=== PATIENT | male | born 1960 | race African-American/Black ===

== ENCOUNTER 2021-01-02 00:52 | Inpatient (IN) | payer OTHER ==
[~2021-01-02] VITALS: Ht 165.1 cm; Wt 101.2 kg
[2021-01-02] MEDS ORDERED: Enoxaparin 100mg Inj SUBQ ONE (01:00)
[2021-01-02] MEDS ORDERED: dexAMETHasone 10mg/ml Inj IV ONE (01:00)
[2021-01-02] MEDS ORDERED: cefTRIAXone 1 GM in NS 55 ML IV ONE (01:00)
[2021-01-02] MEDS ORDERED: Azithromycin 500 MG in NS 275 ML IVPB ONE (01:00)
--- NOTE | 2021-01-02 01:01 | Emergency Room Report ---
History of Present Illness General Chief Complaint: Dyspnea/Respdistress Source: Patient, Medical Record, EMS Present Illness HPI Is a 60-year-old male with a history of diabetes, COPD, hypertension who reside in a shelter. He presents with chief plaint of shortness of breath. He tested positive for Covid yesterday. [facility] called 911 because of respiratory distress and hypoxia. He was saturating in the 80 percentile on room air. Nonrebreather he was placed on nasal cannula and brought here. Patient appeared to be weak. Also cough and congestion. Unknown fever or chills. No chest pain. History is limited because of patient condition. 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 COVID-19 Screening: Positive COVID-19 COVID-19 Testing Source: [facility] Patient History Past Medical History: see triage record, old chart reviewed, DM, HTN, AFib Past Surgical History: other - BKA, right Pertinent Family History: none Social History: Denies: smoking Immunizations: other Reviewed Nursing Documentation: PMH: Agreed; PSxH: Agreed Nursing Documentation-PMH Hx COPD: Yes Hx Diabetes: Yes History Of Psychiatric Problem: Yes - schizophrenia Review of Systems Constitutional: Reports: malaise, weakness Eye: Denies: eye pain, blurred vision ENT: Denies: ear pain, nose congestion, throat swelling Respiratory: Reports: cough, shortness of breath Cardiovascular: Denies: chest pain, palpitations Gastrointestinal: Denies: abdominal pain, diarrhea, nausea, vomiting Musculoskeletal: Denies: back pain, joint pain Skin: Denies: rash Neurological: Denies: headache, numbness Endocrine: Denies: increased thirst, increased urine Hematologic/Lymphatic: Denies: easy bruising All Other Systems: negative except mentioned in HPI Physical Exam Vital Signs Date Time Temp Pulse Resp B/P (MAP) Pulse Ox O2 Delivery O2 Flow Rate FiO2 01/02/21 00:52 100 Nasal Cannula 6.0 Vitals with hypoxia and tachycardia Sp02 EP Interpretation: reviewed, abnormal General Appearance: moderate distress, other - Ill-appearing Head: normocephalic, atraumatic Eyes: bilateral eye PERRL, bilateral eye EOMI ENT: hearing grossly normal, normal pharynx Neck: full range of motion, supple, no meningismus Respiratory: chest non-tender, respiratory distress, accessory muscle use, rhonchi Cardiovascular #1: regular rate, rhythm, no murmur Gastrointestinal: normal bowel sounds, non tender, no mass, no organomegaly, no bruit, non-distended Musculoskeletal: back normal, normal range of motion, other - Right BKA Psychiatric: mood/affect normal Procedures Critical Care Time Critical Care Time Critical care is mandated in this patient who presented with severe sepsis from Covid pneumonia. Patient require my urgent intervention to attenuate the risks of metabolic collapse which may lead to cardiovascular collapse and . Critical care time is 35 minutes excluding any reportable procedure. Critical care time included evaluation, multiple reevaluation, looking at old charts, interpreting laboratory and diagnostic data, discussing case with patient and family and consultants, and charting. Medical Decision Making Diagnostic Impression: Primary Impression: Sepsis Qualified Codes: A41.9 - Sepsis, unspecified organism; R65.20 - Severe sepsis without septic shock; J96.01 - Acute respiratory failure with hypoxia Additional Impressions: Respiratory failure with hypoxia Qualified Codes: J96.01 - Acute respiratory failure with hypoxia Pneumonia due to COVID-19 virus ER Course This patient presents with acute respiratory failure with hypoxia secondary to pneumonia from Covid. Prognosis poor. He has high fever here and he is hypoxic. On he is 96 to 97%. It appeared to be laboring so I put him on BiPAP. Prognosis is poor because of his risk factors. He is morbidly obese, has diabetes, high blood pressure, cardiac problem. Antibiotics, steroid, and Lovenox given. I contacted Dr. Bradley for admission. EKG Diagnostic Results Troponin ordered: Yes Rate: tachycardiac Rhythm: NSR ST Segments: no acute changes Rhythm Strip Diag. Results EP Interpretation: yes Rate: 120 Rhythm: NSR, no PVC's, no ectopy Chest X-Ray Diagnostic Results Chest X-Ray Diagnostic Results : Chest X-Ray Ordered: Yes # of Views/Limited/Complete: 1 View Indication: Shortness of Breath EP Interpretation: Yes Interpretation: no pneumothorax, other - Multilobar infiltrates Impression: Other - multilobar infiltrates Electronically Signed by: Zack Corrales MD Last Vital Signs Date Time Temp Pulse Resp B/P (MAP) Pulse Ox O2 Delivery O2 Flow Rate FiO2 2/3/ 00:52 100 Nasal Cannula 6.0 Status: improved Disposition: ADMITTED INPATIENT Condition: Critical Zack Corrales MD Jan 02, 2021 01:01
[2021-01-02] MEDS ORDERED: Acetaminophen 650 MG SUPP RECTAL ONE (01:15)
[2021-01-02] MEDS ORDERED: Acetaminophen 500mg (ES) tab ORAL ONE (01:15)
[2021-01-02 01:37] LABS: BASOPHILS % (AUTO) 1.2 % (0.0-2.0); EOSINOPHILS % (AUTO) 0.1 % (0.0-3.0); HEMATOCRIT 48.2 % (42.0-52.0); HEMOGLOBIN 14.9 G/DL (14.2-18.0); LYMPHOCYTES % (AUTO) 36.9 % (20.0-45.0); MEAN CORPUSCULAR VOLUME 90 FL (80-99); MONOCYTES % (AUTO) 6.8 % (1.0-10.0); NEUTROPHILS % (AUTO) 55.1 % (45.0-75.0); PLATELET COUNT 149 K/UL (150-450); RED BLOOD COUNT 5.34 M/UL (4.70-6.10); RED CELL DISTRIBUTION WIDTH 13.7 % (11.6-14.8); WHITE BLOOD COUNT 6.4 K/UL (4.8-10.8)
[2021-01-02 01:54] LABS: ANION GAP 8 mmol/L (5-15); BLOOD UREA NITROGEN 14 mg/dL (7-18); CALCIUM 8.6 MG/DL (8.5-10.1); CARBON DIOXIDE 29 MMOL/L (21-32); CHLORIDE 100 MMOL/L (98-107); CREATININE 1.1 MG/DL (0.55-1.30); SODIUM 137 MMOL/L (136-145)
[2021-01-02 01:56] LABS: POTASSIUM 5.3 MMOL/L (3.5-5.1)
[2021-01-02 02:01] LABS: INR 3.1 (0.9-1.1)
[2021-01-02 02:13] LABS: ALANINE AMINOTRANSFERASE 24 U/L (12-78); ALBUMIN 2.9 G/DL (3.4-5.0); ALBUMIN/GLOBULIN RATIO 0.6 (1.0-2.7); ALKALINE PHOSPHATASE 60 U/L (46-116); ASPARTATE AMINO TRANSFERASE 51 U/L (15-37); BILIRUBIN,TOTAL 0.4 MG/DL (0.2-1.0); CKMB 1.4 NG/ML (0.0-3.6); CREATINE KINASE 814 U/L (26-308); FERRITIN 657 NG/ML (8-388); LACTATE DEHYDROGENASE 479 U/L (81-234)
--- NOTE | 2021-01-02 02:27 | Diagnostic Imaging Report ---
EXAM: XR Chest, 1 View CLINICAL HISTORY: SOB TECHNIQUE: Frontal view of the chest. COMPARISON: No relevant prior studies available. FINDINGS/IMPRESSION: Extensive patchy bilateral airspace consolidations, consistent with multifocal infiltrates. Follow-up chest radiograph recommended. Low lung volumes. Suspect, small bilateral pleural effusions. No pneumothorax. Cardiomegaly.
[2021-01-02 02:32] VITALS: BP 105/74
[2021-01-02] MEDS ORDERED: Acetaminophen 650 MG SUPP RECTAL PRN (02:45)
[2021-01-02] MEDS ORDERED: NICODERM CQ1 EAC1 TD (04:02)
[2021-01-02] MEDS ORDERED: TRAMADOL HCL50 MG ORAL (04:02)
[2021-01-02] MEDS ORDERED: WARFARIN SODIUM5 MG ORAL (04:02)
[2021-01-02] MEDS ORDERED: BENZTROPINE MESY1 MG ORAL (04:02)
[2021-01-02] MEDS ORDERED: VIMPAT200 MG PO (04:02)
[2021-01-02] MEDS ORDERED: RISPERIDONE0.5 MG PO (04:02)
[2021-01-02] MEDS ORDERED: MAGNESIUM OXID400 M1 ORAL (04:02)
[2021-01-02] MEDS ORDERED: DOCUSATE CALCI240 MG PO (04:02)
[2021-01-02] MEDS ORDERED: DEPAKOTE ER500 MG ORAL (04:02)
[2021-01-02] MEDS ORDERED: TEMAZEPAM7.5 MG ORAL (04:02)
[2021-01-02] MEDS ORDERED: SEROQUEL200 MG ORAL (04:02)
--- NOTE | 2021-01-02 05:20 | Emergency Room Report ---
Sepsis Event Note Evaluation Current Stage of Sepsis: Sepsis Possible Source: Pulmonary Focused Exam Allergies: Coded Allergies: No Known Allergies (Unverified , 01/02/21) Date Exam Occurred: Jan 02, 2021 Time Exam Occurred: 05:20 Laboratory Studies Laboratory Tests Test 01/02/21 01:08 01/02/21 02:31 White Blood Count 6.4 K/UL (4.8-10.8) Red Blood Count 5.34 M/UL (4.70-6.10) Hemoglobin 14.9 G/DL (14.2-18.0) Hematocrit 48.2 % (42.0-52.0) Mean Corpuscular Volume 90 FL (80-99) Mean Corpuscular Hemoglobin 27.9 PG (27.0-31.0) Mean Corpuscular Hemoglobin Concent 30.9 G/DL (32.0-36.0) L Red Cell Distribution Width 13.7 % (11.6-14.8) Platelet Count 149 K/UL (150-450) L Mean Platelet Volume 11.3 FL (6.5-10.1) H Neutrophils (%) (Auto) 55.1 % (45.0-75.0) Lymphocytes (%) (Auto) 36.9 % (20.0-45.0) Monocytes (%) (Auto) 6.8 % (1.0-10.0) Eosinophils (%) (Auto) 0.1 % (0.0-3.0) Basophils (%) (Auto) 1.2 % (0.0-2.0) Prothrombin Time 30.9 SEC (9.30-11.50) H Prothromb Time International Ratio 3.1 (0.9-1.1) H Activated Partial Thromboplast Time 34 SEC (23-33) H D-Dimer 0.22 mg/L FEU (0.00-0.49) Sodium Level 137 MMOL/L (136-145) Potassium Level 5.3 MMOL/L (3.5-5.1) H Chloride Level 100 MMOL/L (98-107) Carbon Dioxide Level 29 MMOL/L (21-32) Anion Gap 8 mmol/L (5-15) Blood Urea Nitrogen 14 mg/dL (7-18) Creatinine 1.1 MG/DL (0.55-1.30) Estimat Glomerular Filtration Rate > 60 mL/min (>60) Glucose Level 211 MG/DL (74-106) H Lactic Acid Level 0.70 mmol/L (0.4-2.0) Calcium Level 8.6 MG/DL (8.5-10.1) Ferritin 657 NG/ML (8-388) H Total Bilirubin 0.4 MG/DL (0.2-1.0) Aspartate Amino Transf (AST/SGOT) 51 U/L (15-37) H Alanine Aminotransferase (ALT/SGPT) 24 U/L (12-78) Alkaline Phosphatase 60 U/L (46-116) Lactate Dehydrogenase 479 U/L (81-234) H Total Creatine Kinase 814 U/L (26-308) H Creatine Kinase MB 1.4 NG/ML (0.0-3.6) Creatine Kinase MB Relative Index 0.1 Troponin I 0.005 ng/mL (0.000-0.056) C-Reactive Protein, Quantitative 21.3 mg/dL (0.00-0.90) H Pro-B-Type Natriuretic Peptide 37 pg/mL (0-125) Total Protein 7.7 G/DL (6.4-8.2) Albumin 2.9 G/DL (3.4-5.0) L Globulin 4.8 g/dL Albumin/Globulin Ratio 0.6 (1.0-2.7) L Lipase 193 U/L (73-393) Arterial Blood pH 7.310 (7.350-7.450) Arterial Blood Partial Pressure CO2 52.0 mmHg (35.0-45.0) H Arterial Blood Partial Pressure O2 42.8 mmHg (75.0-100.0) Arterial Blood HCO3 25.6 mmol/L (22.0-26.0) Arterial Blood Oxygen Saturation 75.7 % (95-100) *L Arterial Blood Base Excess -1.4 (-2-2) Miguelito Test Positive Vital Signs Last 24 Hour Vital Signs Date Time Temp Pulse Resp B/P (MAP) Pulse Ox O2 Delivery O2 Flow Rate FiO2 01/02/21 05:02 98.9 01/02/21 03:39 116 18 92 100 01/02/21 02:32 128 37 Nasal Cannula 6.0 01/02/21 02:32 103.3 37 105/74 100 Nasal Cannula 6.0 01/02/21 01:46 98.9 01/02/21 00:52 103.3 128 37 105/74 (84) 100 Nasal Cannula 6.0 Respiratory Exam: Crackles Cardiovascular Exam: RRR Capillary Refill: Less Than 2 Seconds Peripheral Pulse: Strong Pulse Location: Radial Skin Exam: Normal Turgor Zack Corrales MD Jan 02, 2021 05:20
[2021-01-02 08:00] VITALS: BP 94/56
[2021-01-02] MEDS: D5 1/2NS 1,000 ML IV SCH (08:00)
[2021-01-02] MEDS ORDERED: traMADol 50mg tab ORAL PRN (08:00)
[2021-01-02] MEDS ORDERED: Zolpidem 5mg tab ORAL PRN (08:00)
[2021-01-02] MEDS ORDERED: HYDROcodone/Acetamin 5/325 tab ORAL PRN (08:15)
--- NOTE | 2021-01-02 08:51 | Consultation ---
History of Present Illness General Date patient seen: Jan 02, 2021 Time patient seen: 12:11 Chief Complaint: Dyspnea/Respdistress Referring physician: PCP Reason for Consultation: COVID+ Present Illness HPI 60yo M from SNF who p/w SOB, tested positive for COVID on day river boat [employer], for which ID is consulted. Pt has been febrile to 103.3 in house, HDS, now on BiPAP. WBC wnl at 6.4 CXR w/ BL pna PMH: DM2 COPD HTN SNF resident Allergies: Coded Allergies: No Known Allergies (Unverified , 01/02/21) Medication History Scheduled Benztropine Mesylate* (Benztropine Mesylate*), 1 MG ORAL BID, (Reported) Divalproex Sodium* (Depakote Er*), 500 MG ORAL EVERY 12 HOURS, (Reported) Docusate Calcium (Docusate Calcium), 240 MG PO TID, (Reported) Magnesium Oxide (Magnesium Oxide), 400 MG ORAL BID, (Reported) Nicotine 14MG Patch* (Nicoderm Cq 14MG*), 1 EACH TD DAILY, (Reported) Quetiapine Fumarate* (Seroquel*), 200 MG ORAL DAILY, (Reported) Risperidone (Risperidone), 0.5 MG PO BID, (Reported) Temazepam (Temazepam*), 7.5 MG ORAL BEDTIME, (Reported) Warfarin Sod* (Warfarin Sod*), 5.5 MG ORAL DAILY, (Reported) Scheduled PRN Tramadol Hcl* (Ultram*), 50 MG ORAL Q12HR PRN for For Pain, (Reported) Miscellaneous Medications Lacosamide (Vimpat), 200 MG PO, (Reported) Patient History Limited by: medical condition Healthcare decision maker Resuscitation status Advanced Directive on File Review of Systems ROS Narrative Unable to assess 2/2 pt condition Physical Exam Physical Exam Narrative Gen: NAD HEENT: NCAT Pulm: BL chest rise Abd: Non-distended Ext: No c/c/e Skin: No visible rashes Neuro: Awake Last 24 Hour Vital Signs Date Time Temp Pulse Resp B/P (MAP) Pulse Ox O2 Delivery O2 Flow Rate FiO2 01/02/21 05:17 Bi-pap 01/02/21 05:02 98.9 01/02/21 03:39 116 18 92 100 01/02/21 02:32 128 37 Nasal Cannula 6.0 01/02/21 02:32 103.3 37 105/74 100 Nasal Cannula 6.0 01/02/21 01:46 98.9 01/02/21 00:52 103.3 128 37 105/74 (84) 100 Nasal Cannula 6.0 Intake and Output 01/01/21 01/02/21 19:00 07:00 Intake Total 2250 ml Balance 2250 ml Intake Oral 0 ml IV Total 2250 ml Laboratory Tests Test 01/02/21 01:08 01/02/21 02:31 01/02/21 07:32 White Blood Count 6.4 K/UL (4.8-10.8) Red Blood Count 5.34 M/UL (4.70-6.10) Hemoglobin 14.9 G/DL (14.2-18.0) Hematocrit 48.2 % (42.0-52.0) Mean Corpuscular Volume 90 FL (80-99) Mean Corpuscular Hemoglobin 27.9 PG (27.0-31.0) Mean Corpuscular Hemoglobin Concent 30.9 G/DL (32.0-36.0) L Red Cell Distribution Width 13.7 % (11.6-14.8) Platelet Count 149 K/UL (150-450) L Mean Platelet Volume 11.3 FL (6.5-10.1) H Neutrophils (%) (Auto) 55.1 % (45.0-75.0) Lymphocytes (%) (Auto) 36.9 % (20.0-45.0) Monocytes (%) (Auto) 6.8 % (1.0-10.0) Eosinophils (%) (Auto) 0.1 % (0.0-3.0) Basophils (%) (Auto) 1.2 % (0.0-2.0) Prothrombin Time 30.9 SEC (9.30-11.50) H Prothromb Time International Ratio 3.1 (0.9-1.1) H Activated Partial Thromboplast Time 34 SEC (23-33) H D-Dimer 0.22 mg/L FEU (0.00-0.49) Sodium Level 137 MMOL/L (136-145) Potassium Level 5.3 MMOL/L (3.5-5.1) H Chloride Level 100 MMOL/L (98-107) Carbon Dioxide Level 29 MMOL/L (21-32) Anion Gap 8 mmol/L (5-15) Blood Urea Nitrogen 14 mg/dL (7-18) Creatinine 1.1 MG/DL (0.55-1.30) Estimat Glomerular Filtration Rate > 60 mL/min (>60) Glucose Level 211 MG/DL (74-106) H Lactic Acid Level 0.70 mmol/L (0.4-2.0) Calcium Level 8.6 MG/DL (8.5-10.1) Ferritin 657 NG/ML (8-388) H Total Bilirubin 0.4 MG/DL (0.2-1.0) Aspartate Amino Transf (AST/SGOT) 51 U/L (15-37) H Alanine Aminotransferase (ALT/SGPT) 24 U/L (12-78) Alkaline Phosphatase 60 U/L (46-116) Lactate Dehydrogenase 479 U/L (81-234) H Total Creatine Kinase 814 U/L (26-308) H Creatine Kinase MB 1.4 NG/ML (0.0-3.6) Creatine Kinase MB Relative Index 0.1 Troponin I 0.005 ng/mL (0.000-0.056) C-Reactive Protein, Quantitative 21.3 mg/dL (0.00-0.90) H Pro-B-Type Natriuretic Peptide 37 pg/mL (0-125) Total Protein 7.7 G/DL (6.4-8.2) Albumin 2.9 G/DL (3.4-5.0) L Globulin 4.8 g/dL Albumin/Globulin Ratio 0.6 (1.0-2.7) L Lipase 193 U/L (73-393) Arterial Blood pH 7.310 (7.350-7.450) 7.310 (7.350-7.450) Arterial Blood Partial Pressure CO2 52.0 mmHg (35.0-45.0) H 46.9 mmHg (35.0-45.0) H Arterial Blood Partial Pressure O2 42.8 mmHg (75.0-100.0) 118.1 mmHg (75.0-100.0) H Arterial Blood HCO3 25.6 mmol/L (22.0-26.0) 23.1 mmol/L (22.0-26.0) Arterial Blood Oxygen Saturation 75.7 % (95-100) *L 97.8 % (95-100) Arterial Blood Base Excess -1.4 (-2-2) -3.4 (-2-2) L Miguelito Test Positive Positive Height (Feet): 5 Height (Inches): 5.00 Weight (Pounds): 233 Medications Current Medications Medications (Trade) Dose Ordered Sig/Johnny Route PRN Reason Start Time Stop Time Status Last Admin Dose Admin Acetaminophen (Tylenol) 650 mg Q6H PRN ORAL Mild Pain (Pain Scale 1-3) 01/02/21 08:15 02/01/21 08:14 Acetaminophen (Tylenol) 650 mg Q6H PRN ORAL Temp >100.5 01/02/21 08:15 02/01/21 08:14 Acetaminophen/ Hydrocodone Bitart ([place] 5/325) 1 tab Q6H PRN ORAL Severe Pain (Pain Scale 7-10) 01/02/21 08:15 01/09/21 08:14 Azithromycin 500 mg/Dextrose 275 ml @ 275 mls/hr Q24HRS IV 01/03/21 01:00 01/09/21 01:59 Benztropine Mesylate (Cogentin) 1 mg BID ORAL 01/02/21 09:00 02/01/21 08:59 Ceftriaxone Sodium 1 gm/ Dextrose 55 ml @ 110 mls/hr Q24H IVPB 01/03/21 01:00 01/10/21 00:59 Dextrose/Sodium Chloride 1,000 ml @ 50 mls/hr Q20H IV 01/02/21 08:00 02/01/21 07:59 Divalproex Sodium (Depakote) 500 mg EVERY 12 HOURS ORAL 01/02/21 09:00 02/01/21 08:59 Methylprednisolone Sodium Succinate (Solu-MEDROL) 40 mg EVERY 12 HOURS IVP 01/02/21 09:00 04/02/21 08:59 Ondansetron HCl (Zofran) 4 mg Q4H PRN IVP Nausea & Vomiting 01/02/21 08:15 02/01/21 08:14 Quetiapine Fumarate (SEROqueL) 200 mg DAILY ORAL 01/02/21 09:00 02/16/21 08:59 Risperidone (RisperDAL) 0.5 mg BID ORAL 01/02/21 09:00 02/16/21 08:59 Sodium Polystyrene Sulfonate (Kayexalate) 30 gm ONCE ORAL 01/02/21 09:00 01/02/21 11:00 Temazepam (RestoriL) 7.5 mg BEDTIME ORAL 01/02/21 21:00 01/09/21 20:59 Tramadol HCl (Ultram) 50 mg Q12H PRN ORAL Moderate Pain (Pain Scale 4-6) 01/02/21 08:00 01/09/21 07:59 Warfarin Sodium (Coumadin per pharmacy) 1 ea DAILY PRN MISC Per rx protocol 01/02/21 08:30 02/01/21 08:29 UNV Warfarin Sodium (Coumadin) 5.5 mg DAILY ORAL 01/02/21 09:00 01/07/21 08:59 UNV Zolpidem Tartrate (Ambien) 5 mg HSPRN PRN ORAL Insomnia 01/02/21 08:00 01/09/21 07:59 Assessment/Plan Assessment/Plan: 60yo M with: COVID pna, severe Acute hypoxia 2/2 COVID pna Febrile to 103 Normal WBC Elevated AST 51 2/2 Tested positive for COVID at SNF 01/02 BCx p CXR: Multifocal pna MRSA nares p Cr 1.1 PMH: DM2 COPD HTN SNF resident Plan: Cont CTX/azithro #1 Cont steroids #1, on methylpred 40 IV q12 Start RDV #1/5, approved This institution does not have access to convalescent plasma and only recomm ended to give in setting of clinical trial HIV screen Monitor CBC/CMP Monitor temp curve, hemodynamics Monitor resp status D/w RN & Pulm Dr. Barry Thank you for this consult. [facility] will continue to follow. Renetta Gomez M.D. Jan 02, 2021 08:51
[2021-01-02] MEDS ORDERED: Warfarin Sodium 5mg ORAL SCH (09:00)
[2021-01-02] MEDS: Benztropine 1mg tab ORAL SCH ×2 (09:00→18:00)
[2021-01-02] MEDS: QUEtiapine 200mg tab ORAL SCH (09:00)
[2021-01-02] MEDS: Depakote 500mg tab ORAL SCH ×2 (09:00→21:31)
[2021-01-02] MEDS: Solu-MEDROL 40mg Inj IVP SCH ×2 (09:00→22:03)
[2021-01-02] MEDS ORDERED: Sodium Polystyrene Sulfonate 15gm Powder ORAL SCH (09:00)
[2021-01-02 10:40] LABS: INR 3.4 (0.9-1.1)
--- NOTE | 2021-01-02 11:52 | Consultation ---
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 Tm 103, initially on 6L NC now on BiPAP 201/0 --> 7.31/46/18//97, DD 0.22, WCt normal, chemistry unremarkable, LDH 478 CRP 21, CK 814, abl 2.9. He has been seen by ID and started on CTx/Azithro + REM + SM 40 IV BID. + cough + SOB no FC no CP, CXR with b infiltrates. Allergies: Coded Allergies: No Known Allergies (Unverified , 01/02/21) Medication History Scheduled Benztropine Mesylate* (Benztropine Mesylate*), 1 MG ORAL BID, (Reported) Divalproex Sodium* (Depakote Er*), 500 MG ORAL EVERY 12 HOURS, (Reported) Docusate Calcium (Docusate Calcium), 240 MG PO TID, (Reported) Magnesium Oxide (Magnesium Oxide), 400 MG ORAL BID, (Reported) Nicotine 14MG Patch* (Nicoderm Cq 14MG*), 1 EACH TD DAILY, (Reported) Quetiapine Fumarate* (Seroquel*), 200 MG ORAL DAILY, (Reported) Risperidone (Risperidone), 0.5 MG PO BID, (Reported) Temazepam (Temazepam*), 7.5 MG ORAL BEDTIME, (Reported) Warfarin Sod* (Warfarin Sod*), 5.5 MG ORAL DAILY, (Reported) Scheduled PRN Tramadol Hcl* (Ultram*), 50 MG ORAL Q12HR PRN for For Pain, (Reported) Miscellaneous Medications Lacosamide (Vimpat), 200 MG PO, (Reported) Patient History Limited by: medical condition History Provided By: Patient, Medical Record Healthcare decision maker Resuscitation status Advanced Directive on File Patient History Narrative PMH: COPD, CPS/bipolar DO, prior DVT/PE on AC, NHR, DM2, HTN and hydrocephalus SHx: NHR + T no ED use FHx: N/C Review of Systems All Other Systems: negative except mentioned in HPI Physical Exam General Appearance: moderate distress, other - on BiPAP Lines, tubes and drains: peripheral HEENT: normocephalic, atraumatic, mucous membranes moist Neck: non-tender, supple Respiratory/Chest: rhonchi - bilaterally Cardiovascular/Chest: normal peripheral pulses, normal rate, regular rhythm Abdomen: normal bowel sounds, non tender, soft, no organomegaly, no mass Neurologic: alert, responsive Musculoskeletal: other - No CCE Last 24 Hour Vital Signs Date Time Temp Pulse Resp B/P (MAP) Pulse Ox O2 Delivery O2 Flow Rate FiO2 01/02/21 08:00 100.0 01/02/21 08:00 98.2 93 27 94/56 (69) 95 01/02/21 08:00 Bi-pap 01/02/21 08:00 96 01/02/21 07:25 95 30 98 Bi-Pap 100 01/02/21 07:25 98 30 95 100 01/02/21 05:17 Bi-pap 01/02/21 05:02 98.9 01/02/21 03:39 116 18 92 100 01/02/21 02:32 128 37 Nasal Cannula 6.0 01/02/21 02:32 103.3 37 105/74 100 Nasal Cannula 6.0 01/02/21 01:46 98.9 01/02/21 00:52 103.3 128 37 105/74 (84) 100 Nasal Cannula 6.0 Intake and Output 01/01/21 01/02/21 19:00 07:00 Intake Total 2250 ml Balance 2250 ml Intake Oral 0 ml IV Total 2250 ml Laboratory Tests Test 01/02/21 01:08 01/02/21 02:31 01/02/21 07:32 01/02/21 10:00 White Blood Count 6.4 K/UL (4.8-10.8) Red Blood Count 5.34 M/UL (4.70-6.10) Hemoglobin 14.9 G/DL (14.2-18.0) Hematocrit 48.2 % (42.0-52.0) Mean Corpuscular Volume 90 FL (80-99) Mean Corpuscular Hemoglobin 27.9 PG (27.0-31.0) Mean Corpuscular Hemoglobin Concent 30.9 G/DL (32.0-36.0) L Red Cell Distribution Width 13.7 % (11.6-14.8) Platelet Count 149 K/UL (150-450) L Mean Platelet Volume 11.3 FL (6.5-10.1) H Neutrophils (%) (Auto) 55.1 % (45.0-75.0) Lymphocytes (%) (Auto) 36.9 % (20.0-45.0) Monocytes (%) (Auto) 6.8 % (1.0-10.0) Eosinophils (%) (Auto) 0.1 % (0.0-3.0) Basophils (%) (Auto) 1.2 % (0.0-2.0) Prothrombin Time 30.9 SEC (9.30-11.50) H 33.7 SEC (9.30-11.50) H Prothromb Time International Ratio 3.1 (0.9-1.1) H 3.4 (0.9-1.1) H Activated Partial Thromboplast Time 34 SEC (23-33) H D-Dimer 0.22 mg/L FEU (0.00-0.49) Sodium Level 137 MMOL/L (136-145) Potassium Level 5.3 MMOL/L (3.5-5.1) H Chloride Level 100 MMOL/L (98-107) Carbon Dioxide Level 29 MMOL/L (21-32) Anion Gap 8 mmol/L (5-15) Blood Urea Nitrogen 14 mg/dL (7-18) Creatinine 1.1 MG/DL (0.55-1.30) Estimat Glomerular Filtration Rate > 60 mL/min (>60) Glucose Level 211 MG/DL (74-106) H Lactic Acid Level 0.70 mmol/L (0.4-2.0) Calcium Level 8.6 MG/DL (8.5-10.1) Ferritin 657 NG/ML (8-388) H Total Bilirubin 0.4 MG/DL (0.2-1.0) Aspartate Amino Transf (AST/SGOT) 51 U/L (15-37) H Alanine Aminotransferase (ALT/SGPT) 24 U/L (12-78) Alkaline Phosphatase 60 U/L (46-116) Lactate Dehydrogenase 479 U/L (81-234) H Total Creatine Kinase 814 U/L (26-308) H Creatine Kinase MB 1.4 NG/ML (0.0-3.6) Creatine Kinase MB Relative Index 0.1 Troponin I 0.005 ng/mL (0.000-0.056) C-Reactive Protein, Quantitative 21.3 mg/dL (0.00-0.90) H Pro-B-Type Natriuretic Peptide 37 pg/mL (0-125) Total Protein 7.7 G/DL (6.4-8.2) Albumin 2.9 G/DL (3.4-5.0) L Globulin 4.8 g/dL Albumin/Globulin Ratio 0.6 (1.0-2.7) L Lipase 193 U/L (73-393) Arterial Blood pH 7.310 (7.350-7.450) 7.310 (7.350-7.450) Arterial Blood Partial Pressure CO2 52.0 mmHg (35.0-45.0) H 46.9 mmHg (35.0-45.0) H Arterial Blood Partial Pressure O2 42.8 mmHg (75.0-100.0) 118.1 mmHg (75.0-100.0) H Arterial Blood HCO3 25.6 mmol/L (22.0-26.0) 23.1 mmol/L (22.0-26.0) Arterial Blood Oxygen Saturation 75.7 % (95-100) *L 97.8 % (95-100) Arterial Blood Base Excess -1.4 (-2-2) -3.4 (-2-2) L Miguelito Test Positive Positive HIV (1&2) Antibody Rapid Pending Height (Feet): 5 Height (Inches): 5.00 Weight (Pounds): 233 Medications Current Medications Medications (Trade) Dose Ordered Sig/Johnny Route PRN Reason Start Time Stop Time Status Last Admin Dose Admin Acetaminophen (Tylenol) 650 mg Q6H PRN ORAL Mild Pain (Pain Scale 1-3) 01/02/21 08:15 02/01/21 08:14 Acetaminophen (Tylenol) 650 mg Q6H PRN ORAL Temp >100.5 01/02/21 08:15 02/01/21 08:14 Acetaminophen/ Hydrocodone Bitart (Tyro 5/325) 1 tab Q6H PRN ORAL Severe Pain (Pain Scale 7-10) 01/02/21 08:15 01/09/21 08:14 Azithromycin 500 mg/Dextrose 275 ml @ 275 mls/hr Q24HRS IV 01/03/21 01:00 01/09/21 01:59 Benztropine Mesylate (Cogentin) 1 mg BID ORAL 01/02/21 09:00 02/01/21 08:59 Ceftriaxone Sodium 1 gm/ Dextrose 55 ml @ 110 mls/hr Q24H IVPB 01/03/21 01:00 01/10/21 00:59 Dextrose/Sodium Chloride 1,000 ml @ 50 mls/hr Q20H IV 01/02/21 08:00 02/01/21 07:59 Divalproex Sodium (Depakote) 500 mg EVERY 12 HOURS ORAL 01/02/21 09:00 02/01/21 08:59 Methylprednisolone Sodium Succinate (Solu-MEDROL) 40 mg EVERY 12 HOURS IVP 01/02/21 09:00 04/02/21 08:59 Ondansetron HCl (Zofran) 4 mg Q4H PRN IVP Nausea & Vomiting 01/02/21 08:15 02/01/21 08:14 Quetiapine Fumarate (SEROqueL) 200 mg DAILY ORAL 01/02/21 09:00 02/16/21 08:59 Remdesivir 100 mg/ Sodium Chloride 250 ml @ 250 mls/hr Q24H IV 01/03/21 12:00 01/06/21 12:59 Remdesivir 200 mg/ Sodium Chloride 250 ml @ 125 mls/hr ONCE IV 01/02/21 12:00 01/02/21 13:59 Risperidone (RisperDAL) 0.5 mg BID ORAL 01/02/21 09:00 02/16/21 08:59 Temazepam (RestoriL) 7.5 mg BEDTIME ORAL 01/02/21 21:00 01/09/21 20:59 Tramadol HCl (Ultram) 50 mg Q12H PRN ORAL Moderate Pain (Pain Scale 4-6) 01/02/21 08:00 01/09/21 07:59 Warfarin Sodium (Coumadin per pharmacy) 1 ea DAILY PRN MISC Per rx protocol 01/02/21 08:30 02/01/21 08:29 Zolpidem Tartrate (Ambien) 5 mg HSPRN PRN ORAL Insomnia 01/02/21 08:00 01/09/21 07:59 Assessment/Plan Problem List: (1) Pneumonia due to COVID-19 virus ICD Codes: U07.1 - COVID-19; J12.82 - Pneumonia due to coronavirus disease 2018 SNOMED: 867814677408441811 (2) Acute hypercapnic respiratory failure ICD Codes: J96.02 - Acute respiratory failure with hypercapnia SNOMED: 347608959 (3) Respiratory failure with hypoxia ICD Codes: J96.91 - Respiratory failure, unspecified with hypoxia SNOMED: 46937428667969978 Qualifiers: Qualified Codes: J96.01 - Acute respiratory failure with hypoxia (4) COPD (chronic obstructive pulmonary disease) ICD Codes: J44.9 - Chronic obstructive pulmonary disease, unspecified SNOMED: 78080531 (5) History of deep venous thrombosis or pulmonary embolus SNOMED: 479262071 (6) Obesity ICD Codes: E66.9 - Obesity, unspecified SNOMED: 913666206, 058991513 (7) Essential hypertension ICD Codes: I10 - Essential (primary) hypertension SNOMED: 03386982 (8) Diabetes mellitus type 2 in obese ICD Codes: E11.69 - Type 2 diabetes mellitus with other specified complication; E66.9 - Obesity, unspecified SNOMED: 91517444 (9) History of hydrocephalus ICD Codes: Z86.69 - Personal history of other diseases of the nervous system and sense organs SNOMED: 936515804 (10) Schizophrenia ICD Codes: F20.9 - Schizophrenia, unspecified SNOMED: 26801326 (11) Bipolar 1 disorder ICD Codes: F31.9 - Bipolar disorder, unspecified SNOMED: 702959060 (12) Anticoagulant long-term use ICD Codes: Z79.01 - long-term (current) use of anticoagulants SNOMED: 729005265 Assessment/Plan: Optimize pulmonary hygiene/mobilize as tolerated BiPAP PRN and qHS Titrate down FiO2 to keep SaO2 > 92% HFA's Prone if able F/U inflammatory markers and covid labs ID recs REM D1 SM 40 IV BID D1 Abx (Ctx/Azithro) per ID F/U Cx's Monitor volumes and renal function DVT Px: Coumadin NPO, 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
[2021-01-02 12:00] VITALS: BP 105/40
[2021-01-02] MEDS ORDERED: Loading Dose:Remdesivir 200mg/NS 210ml IV SCH ×2 (12:00)
--- NOTE | 2021-01-02 12:31 | History & Physical ---
History and Physical History & Physicial Dictated for Int Med-DR Bradley no. [id number]. Vickey Brown MD Jan 02, 2021 12:31
[2021-01-02] MEDS ORDERED: Ipratropium Bromide Inhaler INH SCH (14:00)
[2021-01-02] MEDS ORDERED: Albuterol 90mcg Inhaler 8gm INH SCH (14:00)
[2021-01-02 16:00] VITALS: BP 105/73
[2021-01-02] MEDS: Ipratropium Bromide Inhaler INH SCH (19:00)
[2021-01-02] MEDS: Albuterol 90mcg Inhaler 8gm INH SCH (19:00)
[2021-01-02 20:00] VITALS: BP 97/88
[2021-01-03] VITALS (7 sets, daily range): BP systolic 93–106; BP diastolic 54–60
[2021-01-03] MEDS: Albuterol 90mcg Inhaler 8gm INH SCH ×4 (01:00→18:51)
[2021-01-03] MEDS: cefTRIAXone 1 GM in D5W 55 ML IVPB SCH ×2 (01:13→23:43)
[2021-01-03] MEDS: Ipratropium Bromide Inhaler INH SCH ×4 (01:42→18:51)
[2021-01-03] MEDS: Azithromycin 500 MG in D5W 275 ML IV SCH (02:36)
[2021-01-03] MEDS: D5 1/2NS 1,000 ML IV SCH ×2 (04:00→23:43)
[2021-01-03 05:13] LABS: BASOPHILS % (AUTO) 0.5 % (0.0-2.0); HEMATOCRIT 45.8 % (42.0-52.0); HEMOGLOBIN 14.2 G/DL (14.2-18.0); LYMPHOCYTES % (AUTO) 16.6 % (20.0-45.0); MEAN CORPUSCULAR VOLUME 92 FL (80-99); MONOCYTES % (AUTO) 5.5 % (1.0-10.0); NEUTROPHILS % (AUTO) 77.4 % (45.0-75.0); PLATELET COUNT 176 K/UL (150-450); RED BLOOD COUNT 4.98 M/UL (4.70-6.10); RED CELL DISTRIBUTION WIDTH 14.2 % (11.6-14.8)
[2021-01-03 05:23] LABS: INR 4.5 (0.9-1.1)
[2021-01-03 05:38] LABS: ALANINE AMINOTRANSFERASE 25 U/L (12-78); ALBUMIN 2.5 G/DL (3.4-5.0); ALBUMIN/GLOBULIN RATIO 0.5 (1.0-2.7); ALKALINE PHOSPHATASE 56 U/L (46-116); ANION GAP 10 mmol/L (5-15); ASPARTATE AMINO TRANSFERASE 33 U/L (15-37); BILIRUBIN,TOTAL 0.3 MG/DL (0.2-1.0); BLOOD UREA NITROGEN 15 mg/dL (7-18); CARBON DIOXIDE 26 MMOL/L (21-32); CHLORIDE 103 MMOL/L (98-107); CREATININE 1.1 MG/DL (0.55-1.30); PHOSPHORUS 3.3 MG/DL (2.5-4.9); SODIUM 139 MMOL/L (136-145)
--- NOTE | 2021-01-03 08:50 | Infectious Diseases Prog Note ---
Assessment/Plan 60yo M with: COVID pna, severe Acute hypoxia 2/2 COVID pna Febrile to 103 Normal WBC Elevated AST 51 2/2 Tested positive for COVID at SNF 2/ BCx p CXR: Multifocal pna MRSA nares p Cr 1.1 PMH: DM2 COPD HTN SNF resident Plan: Cont CTX/azithro #2/5 Cont steroids #2/10, on methylpred 40 IV q12 Cont RDV #2/ This institution does not have access to convalescent plasma and only recommended to give in setting of clinical trial F/u HIV screen Monitor CBC/CMP Monitor temp curve, hemodynamics Monitor resp status D/w RN Thank you for this consult. [facility] will continue to follow. Subjective Allergies: Coded Allergies: No Known Allergies (Unverified , 01/02/21) AF NAD on BiPAP WBC wnl at 8.0 Objective Last 24 Hour Vital Signs Date Time Temp Pulse Resp B/P (MAP) Pulse Ox O2 Delivery O2 Flow Rate FiO2 01/03/21 08:00 100 01/03/21 08:00 97.9 92 22 94/54 (67) 97 01/03/21 08:00 95 01/03/21 08:00 Bi-pap 01/03/21 04:00 Bi-pap 01/03/21 04:00 97.9 92 22 94/54 (67) 97 01/03/21 04:00 100 01/03/21 04:00 95 01/03/21 03:27 93 21 95 Bi-Pap 100 95 20 96 100 01/03/21 01:42 93 19 96 Bi-Pap 100 95 20 96 100 01/03/21 00:00 Bi-pap 01/03/21 00:00 98.1 97 21 93/55 (68) 97 01/03/21 00:00 100 01/02/21 23:15 96 01/02/21 20:00 97.7 96 23 97/88 (91) 86 01/02/21 20:00 100 01/02/21 20:00 Bi-pap 01/02/21 19:44 100 01/02/21 19:09 99 26 91 100 01/02/21 18:00 Bi-pap 01/02/21 17:50 100 01/02/21 16:00 98.2 92 21 105/73 (84) 96 01/02/21 16:00 100.0 01/02/21 16:00 Bi-pap 01/02/21 16:00 96 01/02/21 15:05 95 26 94 90 01/02/21 12:00 100.0 01/02/21 12:00 96 01/02/21 12:00 Bi-pap 01/02/21 12:00 98.2 97 21 105/40 (61) 94 01/02/21 11:28 95 25 98 90 Height (Feet): 5 Height (Inches): 5.00 Weight (Pounds): 233 Gen: NAD HEENT: NCAT Pulm: BL chest rise Abd: Non-distended Ext: No c/c/e Skin: No visible rashes Neuro: Awake Laboratory Tests Test 01/02/21 10:00 01/03/21 03:30 Prothrombin Time 33.7 SEC (9.30-11.50) H 44.3 SEC (9.30-11.50) H Prothromb Time International Ratio 3.4 (0.9-1.1) H 4.5 (0.9-1.1) H Interleukin 6 (IL-6) Pending HIV (1&2) Antibody Rapid Pending White Blood Count 8.0 K/UL (4.8-10.8) Red Blood Count 4.98 M/UL (4.70-6.10) Hemoglobin 14.2 G/DL (14.2-18.0) Hematocrit 45.8 % (42.0-52.0) Mean Corpuscular Volume 92 FL (80-99) Mean Corpuscular Hemoglobin 28.4 PG (27.0-31.0) Mean Corpuscular Hemoglobin Concent 30.9 G/DL (32.0-36.0) L Red Cell Distribution Width 14.2 % (11.6-14.8) Platelet Count 176 K/UL (150-450) Mean Platelet Volume 9.2 FL (6.5-10.1) Neutrophils (%) (Auto) 77.4 % (45.0-75.0) H Lymphocytes (%) (Auto) 16.6 % (20.0-45.0) L Monocytes (%) (Auto) 5.5 % (1.0-10.0) Eosinophils (%) (Auto) 0.0 % (0.0-3.0) Basophils (%) (Auto) 0.5 % (0.0-2.0) D-Dimer < 0.19 mg/L FEU Sodium Level 139 MMOL/L (136-145) Potassium Level 5.0 MMOL/L (3.5-5.1) Chloride Level 103 MMOL/L (98-107) Carbon Dioxide Level 26 MMOL/L (21-32) Anion Gap 10 mmol/L (5-15) Blood Urea Nitrogen 15 mg/dL (7-18) Creatinine 1.1 MG/DL (0.55-1.30) Estimat Glomerular Filtration Rate > 60 mL/min (>60) Glucose Level 364 MG/DL (74-106) #H Calcium Level 8.0 MG/DL (8.5-10.1) L Phosphorus Level 3.3 MG/DL (2.5-4.9) Magnesium Level 2.4 MG/DL (1.8-2.4) Total Bilirubin 0.3 MG/DL (0.2-1.0) Direct Bilirubin < 0.1 MG/DL (0.0-0.3) Aspartate Amino Transf (AST/SGOT) 33 U/L (15-37) Alanine Aminotransferase (ALT/SGPT) 25 U/L (12-78) Alkaline Phosphatase 56 U/L (46-116) C-Reactive Protein, Quantitative 18.5 mg/dL (0.00-0.90) H Total Protein 7.2 G/DL (6.4-8.2) Albumin 2.5 G/DL (3.4-5.0) L Globulin 4.7 g/dL Albumin/Globulin Ratio 0.5 (1.0-2.7) L Current Medications Medications (Trade) Dose Ordered Sig/Johnny Route PRN Reason Start Time Stop Time Status Last Admin Dose Admin Acetaminophen (Tylenol) 650 mg Q6H PRN ORAL Mild Pain (Pain Scale 1-3) 01/02/21 08:15 02/01/21 08:14 Acetaminophen (Tylenol) 650 mg Q6H PRN ORAL Temp >100.5 01/02/21 08:15 02/01/21 08:14 Acetaminophen/ Hydrocodone Bitart ([place] 5/325) 1 tab Q6H PRN ORAL Severe Pain (Pain Scale 7-10) 01/02/21 08:15 01/09/21 08:14 Albuterol Sulfate (Proventil MDI) 2 puff Q6HRT INH 01/02/21 19:00 04/02/21 18:59 Azithromycin 500 mg/Dextrose 275 ml @ 275 mls/hr Q24HRS IV 01/03/21 01:00 01/09/21 01:59 01/03/21 02:36 Benztropine Mesylate (Cogentin) 1 mg BID ORAL 01/02/21 09:00 02/01/21 08:59 01/02/21 18:00 Ceftriaxone Sodium 1 gm/ Dextrose 55 ml @ 110 mls/hr Q24H IVPB 01/03/21 01:00 01/10/21 00:59 01/03/21 01:13 Dextrose/Sodium Chloride 1,000 ml @ 50 mls/hr Q20H IV 01/02/21 08:00 02/01/21 07:59 01/03/21 04:00 Divalproex Sodium (Depakote) 500 mg EVERY 12 HOURS ORAL 01/02/21 09:00 02/01/21 08:59 01/02/21 21:31 Ipratropium [place] (Atrovent Inh) 1 puffs Q6HRT INH 01/02/21 19:00 02/01/21 18:59 01/03/21 01:42 Methylprednisolone Sodium Succinate (Solu-MEDROL) 40 mg EVERY 12 HOURS IVP 01/02/21 09:00 04/02/21 08:59 01/02/21 22:03 Ondansetron HCl (Zofran) 4 mg Q4H PRN IVP Nausea & Vomiting 01/02/21 08:15 02/01/21 08:14 Quetiapine Fumarate (SEROqueL) 200 mg DAILY ORAL 01/02/21 09:00 02/16/21 08:59 01/02/21 09:00 Remdesivir 100 mg/ Sodium Chloride 250 ml @ 250 mls/hr Q24H IV 01/03/21 12:00 01/06/21 12:59 Risperidone (RisperDAL) 0.5 mg BID ORAL 01/02/21 09:00 02/16/21 08:59 01/02/21 18:00 Temazepam (RestoriL) 7.5 mg BEDTIME ORAL 01/02/21:00 01/09/21 20:59 Tramadol HCl (Ultram) 50 mg Q12H PRN ORAL Moderate Pain (Pain Scale 4-6) 01/02/21 08:00 01/09/21 07:59 Warfarin Sodium (Coumadin per pharmacy) 1 ea DAILY PRN MISC Per rx protocol 01/02/21 08:30 02/01/21 08:29 Zolpidem Tartrate (Ambien) 5 mg HSPRN PRN ORAL Insomnia 01/02/21 08:00 01/09/21 07:59 Renetta Gomez M.D. Jan 03, 2021 08:50
[2021-01-03] MEDS: Depakote 500mg tab ORAL SCH ×2 (09:00→21:33)
[2021-01-03] MEDS: Solu-MEDROL 40mg Inj IVP SCH ×2 (09:00→21:33)
[2021-01-03] MEDS: QUEtiapine 200mg tab ORAL SCH (09:00)
[2021-01-03] MEDS: Benztropine 1mg tab ORAL SCH ×2 (09:00→18:49)
[2021-01-03] MEDS: Maintenance Dose:Remdesivir 100mg/NS 230ml x 4 Doses IV SCH ×2 (12:00)
[2021-01-03] MEDS ORDERED: Tubing IV Secondary IV ONE (14:15)
[2021-01-03] MEDS ORDERED: NS 275ml ONE (14:15)
--- NOTE | 2021-01-03 14:34 | Pulmonology Progress Note ---
Subjective ROS Limited/Unobtainable: Yes Allergies: Coded Allergies: No Known Allergies (Unverified , 01/02/21) Objective Last 24 Hour Vital Signs Date Time Temp Pulse Resp B/P (MAP) Pulse Ox O2 Delivery O2 Flow Rate FiO2 01/03/21 12:00 Bi-pap 01/03/21 12:00 100 01/03/21 12:00 97.9 92 22 94/54 (67) 97 01/03/21 12:00 95 01/03/21 11:47 88 22 93 Non-Rebreather 15.0 100 01/03/21 08:00 100 01/03/21 08:00 97.9 92 22 94/54 (67) 97 01/03/21 08:00 95 01/03/21 08:00 Bi-pap 01/03/21 07:36 97 24 93 100 01/03/21 04:00 Bi-pap 01/03/21 04:00 97.9 92 22 94/54 (67) 97 01/03/21 04:00 100 01/03/21 04:00 95 01/03/21 03:27 93 21 95 Bi-Pap 100 95 20 96 100 01/03/21 01:42 93 19 96 Bi-Pap 100 95 20 96 100 01/03/21 00:00 Bi-pap 01/03/21 00:00 98.1 97 21 93/55 (68) 97 01/03/21 00:00 100 01/02/21 23:15 96 01/02/21 20:00 97.7 96 23 97/88 (91) 86 01/02/21 20:00 100 01/02/21 20:00 Bi-pap 01/02/21 19:44 100 01/02/21 19:09 99 26 91 100 01/02/21 18:00 Bi-pap 01/02/21 17:50 100 01/02/21 16:00 98.2 92 21 105/73 (84) 96 01/02/21 16:00 100.0 01/02/21 16:00 Bi-pap 01/02/21 16:00 96 01/02/21 15:05 95 26 94 90 Intake and Output 01/02/21 01/03/21 19:00 07:00 Intake Total 0 ml 150 ml Balance 0 ml 150 ml Intake Oral 0 ml IV Total 150 ml Laboratory Tests 01/03/21 03:30: White Blood Count 8.0, Red Blood Count 4.98, Hemoglobin 14.2, Hematocrit 45.8, Mean Corpuscular Volume 92, Mean Corpuscular Hemoglobin 28.4, Mean Corpuscular Hemoglobin Concent 30.9L, Red Cell Distribution Width 14.2, Platelet Count 176, Mean Platelet Volume 9.2, Neutrophils (%) (Auto) 77.4H, Lymphocytes (%) (Auto) 16.6L, Monocytes (%) (Auto) 5.5, Eosinophils (%) (Auto) 0.0, Basophils (%) (Auto) 0.5, Prothrombin Time 44.3H, Prothromb Time International Ratio 4.5H, D- Dimer < 0.19, Sodium Level 139, Potassium Level 5.0, Chloride Level 103, Carbon Dioxide Level 26, Anion Gap 10, Blood Urea Nitrogen 15, Creatinine 1.1, Estimat Glomerular Filtration Rate > 60, Glucose Level 364#H, Calcium Level 8.0L, Phosphorus Level 3.3, Magnesium Level 2.4, Total Bilirubin 0.3, Direct Bilirubin < 0.1, Aspartate Amino Transf (AST/SGOT) 33, Alanine Aminotransferase (ALT/SGPT) 25, Alkaline Phosphatase 56, C-Reactive Protein, Quantitative 18.5H, Total Protein 7.2, Albumin 2.5L, Globulin 4.7, Albumin/Globulin Ratio 0.5L Current Medications Medications (Trade) Dose Ordered Sig/Johnny Route PRN Reason Start Time Stop Time Status Last Admin Dose Admin Acetaminophen (Tylenol) 650 mg Q6H PRN ORAL Mild Pain (Pain Scale 1-3) 01/02/21 08:15 02/01/21 08:14 Acetaminophen (Tylenol) 650 mg Q6H PRN ORAL Temp >100.5 01/02/21 08:15 02/01/21 08:14 Acetaminophen/ Hydrocodone Bitart ([place] 5/325) 1 tab Q6H PRN ORAL Severe Pain (Pain Scale 7-10) 01/02/21 08:15 01/09/21 08:14 Albuterol Sulfate (Proventil MDI) 2 puff Q6HRT INH 01/02/21 19:00 04/02/21 18:59 01/03/21 11:35 Azithromycin 500 mg/Dextrose 275 ml @ 275 mls/hr Q24HRS IV 01/03/21 01:00 01/09/21 01:59 01/03/21 02:36 Benztropine Mesylate (Cogentin) 1 mg BID ORAL 01/02/21 09:00 02/01/21 08:59 01/03/21 09:00 Ceftriaxone Sodium 1 gm/ Dextrose 55 ml @ 110 mls/hr Q24H IVPB 01/03/21 01:00 01/10/21 00:59 01/03/21 01:13 Dextrose/Sodium Chloride 1,000 ml @ 50 mls/hr Q20H IV 01/02/21 08:00 02/01/21 07:59 01/03/21 04:00 Divalproex Sodium (Depakote) 500 mg EVERY 12 HOURS ORAL 01/02/21 09:00 02/01/21 08:59 01/03/21 09:00 Ipratropium [place] (Atrovent Inh) 1 puffs Q6HRT INH 01/02/21 19:00 02/01/21 18:59 01/03/21 11:35 Methylprednisolone Sodium Succinate (Solu-MEDROL) 40 mg EVERY 12 HOURS IVP 01/02/21 09:00 04/02/21 08:59 01/03/21 09:00 Ondansetron HCl (Zofran) 4 mg Q4H PRN IVP Nausea & Vomiting 01/02/21 08:15 02/01/21 08:14 Quetiapine Fumarate (SEROqueL) 200 mg DAILY ORAL 01/02/21 09:00 02/16/21 08:59 01/03/21 09:00 Remdesivir 100 mg/ Sodium Chloride 250 ml @ 250 mls/hr Q24H IV 01/03/21 12:00 01/06/21 12:59 01/03/21 12:00 Risperidone (RisperDAL) 0.5 mg BID ORAL 01/02/21 09:00 02/16/21 08:59 01/03/21 09:00 Temazepam (RestoriL) 7.5 mg BEDTIME ORAL 01/02/21 21:00 01/09/21 20:59 Tramadol HCl (Ultram) 50 mg Q12H PRN ORAL Moderate Pain (Pain Scale 4-6) 01/02/21 08:00 01/09/21 07:59 Warfarin Sodium (Coumadin per pharmacy) 1 ea DAILY PRN MISC Per rx protocol 01/02/21 08:30 02/01/21 08:29 Zolpidem Tartrate (Ambien) 5 mg HSPRN PRN ORAL Insomnia 01/02/21 08:00 01/09/21 07:59 Assessment/Plan Assessment/Plan Pulmonary Progress Note HPI Patient is a 60 man with prior h/o COPD, CPS/bipolar DO, prior DVT/PE on AC, NHR, DM2, HTN and hydrocephalus,admitted with SOB and fevers after a recent diagnosisof Covid19. On high FIO2/BiPAPPRN, ID following and started on CTx/Azithro + REM + SM 40 IV BID, CXR with b infiltrates. Allergies: Coded Allergies: No Known Allergies (Unverified , 01/02/21) PMH: COPD, CPS/bipolar DO, prior DVT/PE on AC, NHR, DM2, HTN and hydrocephalus SHx: NHR + T FHx: N/C Physical Exam Deferred Covid19 Vital Signs noted Laboratory Tests noted Height (Feet): 5 Height (Inches): 5.00 Weight (Pounds): 233 Medications Medications noted Assessment/Plan Problem List: (1) Pneumonia due to COVID-19 virus ICD Codes: U07.1 - COVID-19; J12.82 - Pneumonia due to coronavirus disease 2019 SNOMED: 308923552476744171 (2) Acute hypercapnic respiratory failure ICD Codes: J96.02 - Acute respiratory failure with hypercapnia SNOMED: 169956695 (3) Respiratory failure with hypoxia ICD Codes: J96.91 - Respiratory failure, unspecified with hypoxia SNOMED: 67605873097110451 Qualifiers: Qualified Codes: J96.01 - Acute respiratory failure with hypoxia (4) COPD (chronic obstructive pulmonary disease) ICD Codes: J44.9 - Chronic obstructive pulmonary disease, unspecified SNOMED: 09698803 (5) History of deep venous thrombosis or pulmonary embolus SNOMED: 131826095 (6) Obesity ICD Codes: E66.9 - Obesity, unspecified SNOMED: 256884884, 656708154 (7) Essential hypertension ICD Codes: I10 - Essential (primary) hypertension SNOMED: 11726233 (8) Diabetes mellitus type 2 in obese ICD Codes: E11.69 - Type 2 diabetes mellitus with other specified complication; E66.9 - Obesity, unspecified SNOMED: 98975230 (9) History of hydrocephalus ICD Codes: Z86.69 - Personal history of other diseases of the nervous system and sense organs SNOMED: 694980873 (10) Schizophrenia ICD Codes: F20.9 - Schizophrenia, unspecified SNOMED: 57338446 (11) Bipolar 1 disorder ICD Codes: F31.9 - Bipolar disorder, unspecified SNOMED: 590739515 (12) Anticoagulant long-term use ICD Codes: Z79.01 - salvage determiner (current) use of anticoagulants SNOMED: 494441007 Assessment/Plan: Optimize pulmonary hygiene/mobilize as tolerated BiPAP PRN and qHS Titrate down FiO2 to keep SaO2 > 92% HFA's Prone if able F/U inflammatory markers and covid labs ID recs REM D1 SM 40 IV BID D1 Abx (Ctx/Azithro) per ID F/U Cx's Monitor volumes and renal function DVT Px: Coumadin NPO, CLINICAL NEUROPSYCHOLOGIST eval when respiratory status stable Anuel Best MD Jan 03, 2021 14:34
[2021-01-03] MEDS ORDERED: MULTIVITAMINS1 EAC8 ORAL (17:22)
[2021-01-03] MEDS ORDERED: ZINC SULFATE220 M1 ORAL (17:22)
[2021-01-03] MEDS ORDERED: ASCORBIC ACID500 MG ORAL (17:22)
[2021-01-03] MEDS ORDERED: NOVOLIN R100 UNIT/1 SUBQ (17:22)
[2021-01-03] MEDS ORDERED: VITAMIN D325 MC1 PO (17:22)
[2021-01-03] MEDS ORDERED: ACETAMINOPHEN325 M1 ORAL (17:22)
[2021-01-03] MEDS ORDERED: POTASSIUM CHLO20 ME1 ORAL (17:22)
[2021-01-03] MEDS ORDERED: VIMPAT200 MG PO (17:22)
[2021-01-03] MEDS ORDERED: GABAPENTIN400 MG ORAL (17:22)
[2021-01-03] MEDS ORDERED: LANTUS SOL100 UNIT/1 SUBQ ×2 (17:22)
[2021-01-03] MEDS ORDERED: SEROQUEL100 MG ORAL (17:22)
--- NOTE | 2021-01-03 17:31 | Internal Med Progress Note ---
Subjective Physician Name Geovanny Bradley Attending Physician Geovanny Bradley MD Current Medications Medications (Trade) Dose Ordered Sig/Johnny Route PRN Reason Start Time Stop Time Status Last Admin Dose Admin Acetaminophen (Tylenol) 650 mg Q6H PRN ORAL Mild Pain (Pain Scale 1-3) 01/02/21 08:15 02/01/21 08:14 Acetaminophen (Tylenol) 650 mg Q6H PRN ORAL Temp >100.5 01/02/21 08:15 02/01/21 08:14 Acetaminophen/ Hydrocodone Bitart ([place] 5/325) 1 tab Q6H PRN ORAL Severe Pain (Pain Scale 7-10) 01/02/21 08:15 01/09/21 08:14 Albuterol Sulfate (Proventil MDI) 2 puff Q6HRT INH 01/02/21 19:00 04/02/21 18:59 01/03/21 11:35 Azithromycin 500 mg/Dextrose 275 ml @ 275 mls/hr Q24HRS IV 01/03/21 01:00 01/09/21 01:59 01/03/21 02:36 Benztropine Mesylate (Cogentin) 1 mg BID ORAL 01/02/21 09:00 02/01/21 08:59 01/03/21 09:00 Ceftriaxone Sodium 1 gm/ Dextrose 55 ml @ 110 mls/hr Q24H IVPB 01/03/21 01:00 01/10/21 00:59 01/03/21 01:13 Dextrose/Sodium Chloride 1,000 ml @ 50 mls/hr Q20H IV 01/02/21 08:00 02/01/21 07:59 01/03/21 04:00 Divalproex Sodium (Depakote) 500 mg EVERY 12 HOURS ORAL 01/02/21 09:00 02/01/21 08:59 01/03/21 09:00 Ipratropium [place] (Atrovent Inh) 1 puffs Q6HRT INH 01/02/21 19:00 02/01/21 18:59 01/03/21 11:35 Methylprednisolone Sodium Succinate (Solu-MEDROL) 40 mg EVERY 12 HOURS IVP 01/02/21 09:00 04/02/21 08:59 01/03/21 09:00 Ondansetron HCl (Zofran) 4 mg Q4H PRN IVP Nausea & Vomiting 01/02/21 08:15 02/01/21 08:14 Quetiapine Fumarate (SEROqueL) 200 mg DAILY ORAL 01/02/21 09:00 02/16/21 08:59 01/03/21 09:00 Remdesivir 100 mg/ Sodium Chloride 250 ml @ 250 mls/hr Q24H IV 01/03/21 12:00 01/06/21 12:59 01/03/21 12:00 Risperidone (RisperDAL) 0.5 mg BID ORAL 01/02/21 09:00 02/16/21 08:59 01/03/21 09:00 Temazepam (RestoriL) 7.5 mg BEDTIME ORAL 01/02/21 21:00 01/09/21 20:59 Tramadol HCl (Ultram) 50 mg Q12H PRN ORAL Moderate Pain (Pain Scale 4-6) 01/02/21 08:00 01/09/21 07:59 Warfarin Sodium (Coumadin per pharmacy) 1 ea DAILY PRN MISC Per rx protocol 01/02/21 08:30 02/01/21 08:29 Zolpidem Tartrate (Ambien) 5 mg HSPRN PRN ORAL Insomnia 01/02/21 08:00 01/09/21 07:59 Allergies: Coded Allergies: No Known Allergies (Unverified , 01/02/21) Subjective awake, responsive, confused, on Venti Mask, WBC: 8.0 Objective Last Vital Signs Date Time Temp Pulse Resp B/P (MAP) Pulse Ox O2 Delivery O2 Flow Rate FiO2 01/03/21 16:00 Bi-pap 01/03/21 16:00 98.0 92 22 106/60 (75) 92 01/03/21 16:00 100 01/03/21 11:47 15.0 Laboratory Tests Test 01/03/21 03:30 White Blood Count 8.0 K/UL (4.8-10.8) Red Blood Count 4.98 M/UL (4.70-6.10) Hemoglobin 14.2 G/DL (14.2-18.0) Hematocrit 45.8 % (42.0-52.0) Mean Corpuscular Volume 92 FL (80-99) Mean Corpuscular Hemoglobin 28.4 PG (27.0-31.0) Mean Corpuscular Hemoglobin Concent 30.9 G/DL (32.0-36.0) L Red Cell Distribution Width 14.2 % (11.6-14.8) Platelet Count 176 K/UL (150-450) Mean Platelet Volume 9.2 FL (6.5-10.1) Neutrophils (%) (Auto) 77.4 % (45.0-75.0) H Lymphocytes (%) (Auto) 16.6 % (20.0-45.0) L Monocytes (%) (Auto) 5.5 % (1.0-10.0) Eosinophils (%) (Auto) 0.0 % (0.0-3.0) Basophils (%) (Auto) 0.5 % (0.0-2.0) Prothrombin Time 44.3 SEC (9.30-11.50) H Prothromb Time International Ratio 4.5 (0.9-1.1) H D-Dimer < 0.19 mg/L FEU Sodium Level 139 MMOL/L (136-145) Potassium Level 5.0 MMOL/L (3.5-5.1) Chloride Level 103 MMOL/L (98-107) Carbon Dioxide Level 26 MMOL/L (21-32) Anion Gap 10 mmol/L (5-15) Blood Urea Nitrogen 15 mg/dL (7-18) Creatinine 1.1 MG/DL (0.55-1.30) Estimat Glomerular Filtration Rate > 60 mL/min (>60) Glucose Level 364 MG/DL (74-106) #H Calcium Level 8.0 MG/DL (8.5-10.1) L Phosphorus Level 3.3 MG/DL (2.5-4.9) Magnesium Level 2.4 MG/DL (1.8-2.4) Total Bilirubin 0.3 MG/DL (0.2-1.0) Direct Bilirubin < 0.1 MG/DL (0.0-0.3) Aspartate Amino Transf (AST/SGOT) 33 U/L (15-37) Alanine Aminotransferase (ALT/SGPT) 25 U/L (12-78) Alkaline Phosphatase 56 U/L (46-116) C-Reactive Protein, Quantitative 18.5 mg/dL (0.00-0.90) H Total Protein 7.2 G/DL (6.4-8.2) Albumin 2.5 G/DL (3.4-5.0) L Globulin 4.7 g/dL Albumin/Globulin Ratio 0.5 (1.0-2.7) L Microbiology Date/Time Source Procedure Growth Status 01/02/21 01:30 Nasal Nares MRSA Culture - Final NO METHICILLIN RESISTANT STAPH AUREUS... Complete 01/02/21 01:08 Blood Blood Culture - Preliminary NO GROWTH AFTER 24 HOURS Resulted 01/02/21 01:00 Blood Blood Culture - Preliminary NO GROWTH AFTER 24 HOURS Resulted Intake and Output 01/02/21 01/03/21 19:00 07:00 Intake Total 0 ml 150 ml Balance 0 ml 150 ml Intake Oral 0 ml IV Total 150 ml Objective General: awake, responsive , confused. HEENT: NCAT, sclera anicteric, PERRL, EOMI. Neck: Supple, no significant jugular venous distention, Lungs: decreased air at the bases, occasional crackles, no Wheeze. Heart: Regular rate and rhythm, normal S1/S2, no murmurs Abdomen: soft, nontender, nondistended. Normoactive bowel sound, obesity. / Rectal: Refused and deferred. Extremities: Left LE: No Cyanosis , clubbing or edema. Right LE AKA. Neuro: A&O x 2, Able to move all extremities Skin: warm, no rashes or lesions. Assessment/Plan Assessment/Plan (1) Pneumonia due to COVID-19 virus ICD Codes: U07.1 - COVID-19; J12.82 - Pneumonia due to coronavirus disease 2019 SNOMED: 471657616206613160 (2) Acute hypercapnic respiratory failure ICD Codes: J96.02 - Acute respiratory failure with hypercapnia SNOMED: 528177219 (3) Respiratory failure with hypoxia ICD Codes: J96.91 - Respiratory failure, unspecified with hypoxia SNOMED: 38161389354198598 Qualifiers: Qualified Codes: J96.01 - Acute respiratory failure with hypoxia (4) COPD (chronic obstructive pulmonary disease) ICD Codes: J44.9 - Chronic obstructive pulmonary disease, unspecified SNOMED: 06109564 (5) History of deep venous thrombosis or pulmonary embolus SNOMED: 678906913 (6) Obesity ICD Codes: E66.9 - Obesity, unspecified SNOMED: 979748126, 468824164 (7) Essential hypertension ICD Codes: I10 - Essential (primary) hypertension SNOMED: 01161456 (8) Diabetes mellitus type 2 in obese ICD Codes: E11.69 - Type 2 diabetes mellitus with other specified complication; E66.9 - Obesity, unspecified SNOMED: 07144557 (9) History of hydrocephalus ICD Codes: Z86.69 - Personal history of other diseases of the nervous system and sense organs SNOMED: 544158283 (10) Schizophrenia ICD Codes: F20.9 - Schizophrenia, unspecified SNOMED: 17466705 (11) Bipolar 1 disorder ICD Codes: F31.9 - Bipolar disorder, unspecified SNOMED: 331362744 (12) Anticoagulant long-term use ICD Codes: Z79.01 - FPC (current) use of anticoagulants SNOMED: 376873671 Assessment/Plan: Optimize pulmonary hygiene/mobilize as tolerated BiPAP PRN and qHS Titrate down FiO2 to keep SaO2 > 92% HFA's Prone if able On Coumadin On Remdesivir IV Solu-Medrol 40 mg IV twice a day. 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
[2021-01-03] MEDS ORDERED: TEMAZEPAM7.5 MG ORAL (17:37)
[2021-01-03] MEDS ORDERED: RISPERDAL0.5 MG ORAL (17:37)
[2021-01-03] MEDS ORDERED: TRAMADOL HCL50 MG ORAL (17:40)
[2021-01-03] MEDS ORDERED: QUETIAPINE FUM200 MG ORAL (17:40)
[2021-01-04] VITALS: BP 104/60
[2021-01-04] MEDS: Azithromycin 500 MG in D5W 275 ML IV SCH (01:04)
[2021-01-04] MEDS: Albuterol 90mcg Inhaler 8gm INH SCH ×4 (01:39→19:58)
[2021-01-04] MEDS: Ipratropium Bromide Inhaler INH SCH ×4 (01:39→19:57)
[2021-01-04 04:00] VITALS: BP 106/60
[2021-01-04 04:45] LABS: HEMATOCRIT 46.6 % (42.0-52.0); HEMOGLOBIN 14.2 G/DL (14.2-18.0); LYMPHOCYTES % (AUTO) 14.1 % (20.0-45.0); MEAN CORPUSCULAR VOLUME 92 FL (80-99); MONOCYTES % (AUTO) 4.7 % (1.0-10.0); NEUTROPHILS % (AUTO) 80.2 % (45.0-75.0); PLATELET COUNT 239 K/UL (150-450); RED BLOOD COUNT 5.05 M/UL (4.70-6.10); RED CELL DISTRIBUTION WIDTH 14.3 % (11.6-14.8); WHITE BLOOD COUNT 7.4 K/UL (4.8-10.8)
[2021-01-04 04:50] LABS: INR 4.3 (0.9-1.1)
[2021-01-04 05:21] LABS: ALANINE AMINOTRANSFERASE 24 U/L (12-78); ALBUMIN 2.3 G/DL (3.4-5.0); ALBUMIN/GLOBULIN RATIO 0.5 (1.0-2.7); ALKALINE PHOSPHATASE 56 U/L (46-116); ANION GAP 9 mmol/L (5-15); ASPARTATE AMINO TRANSFERASE 37 U/L (15-37); BILIRUBIN,DIRECT < 0.1 MG/DL (0.0-0.3); BILIRUBIN,TOTAL 0.3 MG/DL (0.2-1.0); BLOOD UREA NITROGEN 15 mg/dL (7-18); CALCIUM 8.3 MG/DL (8.5-10.1); CARBON DIOXIDE 27 MMOL/L (21-32); CHLORIDE 106 MMOL/L (98-107); POTASSIUM 4.5 MMOL/L (3.5-5.1); SODIUM 142 MMOL/L (136-145)
--- NOTE | 2021-01-04 07:26 | Infectious Diseases Prog Note ---
Assessment/Plan 60yo M with: COVID pna, severe Acute hypoxia 2/2 COVID pna Febrile to 103 Normal WBC Elevated AST 51 2/2 Tested positive for COVID at SNF 2/3 COVID PCR positive 2/3 BCx NTD CXR: Multifocal pna MRSA nares p Cr 1.1 HIV screen neg PMH: DM2 COPD HTN SNF resident Plan: Cont CTX/azithro #3/ Cont steroids #3/, on methylpred 40 IV q12 Cont RDV #3/ This institution does not have access to convalescent plasma and only recommended to give in setting of clinical trial Monitor CBC/CMP Monitor temp curve, hemodynamics Monitor resp status D/w RN Thank you for this consult. [facility] will continue to follow. Subjective Allergies: Coded Allergies: No Known Allergies (Unverified , 01/02/21) AF NAD on NRB satting 88%, was taking off BiPAP per RN WBC 7.4 Objective Last 24 Hour Vital Signs Date Time Temp Pulse Resp B/P (MAP) Pulse Ox O2 Delivery O2 Flow Rate FiO2 01/04/21 04:00 Bi-pap 01/04/21 04:00 98.0 92 22 106/60 (75) 92 01/04/21 04:00 15.0 100 01/04/21 04:00 87 01/04/21 03:00 89 22 93 01/04/21 01:39 95 22 92 01/04/21 00:00 Bi-pap 01/04/21 00:00 98.4 101 22 104/60 (75) 92 01/04/21 00:00 15.0 100 01/03/21 23:52 97 01/03/21 20:00 98 01/03/21 20:00 98.6 96 22 101/58 (72) 92 01/03/21 20:00 15.0 100 01/03/21 20:00 Bi-pap 01/03/21 18:57 95 20 92 Non-Rebreather 15.0 100 01/03/21 16:00 Bi-pap 01/03/21 16:00 98.0 92 22 106/60 (75) 92 01/03/21 16:00 100 01/03/21 16:00 95 01/03/21 12:00 Bi-pap 01/03/21 12:00 100 01/03/21 12:00 97.9 92 22 94/54 (67) 97 01/03/21 12:00 95 01/03/21 11:47 88 22 93 Non-Rebreather 15.0 100 01/03/21 08:00 100 01/03/21 08:00 97.9 92 22 94/54 (67) 97 01/03/21 08:00 95 01/03/21 08:00 Bi-pap 01/03/21 07:36 97 24 93 100 Height (Feet): 5 Height (Inches): 5.00 Weight (Pounds): 233 Gen: NAD HEENT: NCAT Pulm: BL chest rise Abd: Non-distended Ext: No c/c/e Skin: No visible rashes Neuro: Awake Microbiology Date/Time Source Procedure Growth Status 01/02/21 13:15 Nasopharynx Coronavirus COVID-19 PCR ([facility]) - Final Complete 01/02/21 01:30 Nasal Nares MRSA Culture - Final NO METHICILLIN RESISTANT STAPH AUREUS... Complete 01/02/21 01:08 Blood Blood Culture - Preliminary NO GROWTH AFTER 24 HOURS Resulted 01/02/21 01:00 Blood Blood Culture - Preliminary NO GROWTH AFTER 24 HOURS Resulted Laboratory Tests Test 01/04/21 04:00 White Blood Count 7.4 K/UL (4.8-10.8) Red Blood Count 5.05 M/UL (4.70-6.10) Hemoglobin 14.2 G/DL (14.2-18.0) Hematocrit 46.6 % (42.0-52.0) Mean Corpuscular Volume 92 FL (80-99) Mean Corpuscular Hemoglobin 28.1 PG (27.0-31.0) Mean Corpuscular Hemoglobin Concent 30.6 G/DL (32.0-36.0) L Red Cell Distribution Width 14.3 % (11.6-14.8) Platelet Count 239 K/UL (150-450) Mean Platelet Volume 8.9 FL (6.5-10.1) Neutrophils (%) (Auto) 80.2 % (45.0-75.0) H Lymphocytes (%) (Auto) 14.1 % (20.0-45.0) L Monocytes (%) (Auto) 4.7 % (1.0-10.0) Eosinophils (%) (Auto) 0.0 % (0.0-3.0) Basophils (%) (Auto) 1.0 % (0.0-2.0) Prothrombin Time 42.6 SEC (9.30-11.50) H Prothromb Time International Ratio 4.3 (0.9-1.1) H Sodium Level 142 MMOL/L (136-145) Potassium Level 4.5 MMOL/L (3.5-5.1) Chloride Level 106 MMOL/L (98-107) Carbon Dioxide Level 27 MMOL/L (21-32) Anion Gap 9 mmol/L (5-15) Blood Urea Nitrogen 15 mg/dL (7-18) Creatinine 1.0 MG/DL (0.55-1.30) Estimat Glomerular Filtration Rate > 60 mL/min (>60) Glucose Level 325 MG/DL (74-106) H Calcium Level 8.3 MG/DL (8.5-10.1) L Total Bilirubin 0.3 MG/DL (0.2-1.0) Direct Bilirubin < 0.1 MG/DL (0.0-0.3) Aspartate Amino Transf (AST/SGOT) 37 U/L (15-37) Alanine Aminotransferase (ALT/SGPT) 24 U/L (12-78) Alkaline Phosphatase 56 U/L (46-116) Total Protein 7.0 G/DL (6.4-8.2) Albumin 2.3 G/DL (3.4-5.0) L Globulin 4.7 g/dL Albumin/Globulin Ratio 0.5 (1.0-2.7) L Current Medications Medications (Trade) Dose Ordered Sig/Johnny Route PRN Reason Start Time Stop Time Status Last Admin Dose Admin Acetaminophen (Tylenol) 650 mg Q6H PRN ORAL Mild Pain (Pain Scale 1-3) 01/02/21 08:15 02/01/21 08:14 Acetaminophen (Tylenol) 650 mg Q6H PRN ORAL Temp >100.5 01/02/21 08:15 02/01/21 08:14 Acetaminophen/ Hydrocodone Bitart ([place] 5/325) 1 tab Q6H PRN ORAL Severe Pain (Pain Scale 7-10) 01/02/21 08:15 01/09/21 08:14 Albuterol Sulfate (Proventil MDI) 2 puff Q6HRT INH 01/02/21 19:00 04/02/21 18:59 01/03/21 18:51 Azithromycin 500 mg/Dextrose 275 ml @ 275 mls/hr Q24HRS IV 01/03/21 01:00 01/09/21 01:59 01/04/21 01:04 Benztropine Mesylate (Cogentin) 1 mg BID ORAL 01/02/21 09:00 02/01/21 08:59 01/03/21 18:49 Ceftriaxone Sodium 1 gm/ Dextrose 55 ml @ 110 mls/hr Q24H IVPB 01/03/21 01:00 01/10/21 00:59 01/03/21 23:43 Dextrose/Sodium Chloride 1,000 ml @ 50 mls/hr Q20H IV 01/02/21 08:00 02/01/21 07:59 01/03/21 23:43 Divalproex Sodium (Depakote) 500 mg EVERY 12 HOURS ORAL 01/02/21 09:00 02/01/21 08:59 01/03/21 21:33 Ipratropium [place] (Atrovent Inh) 1 puffs Q6HRT INH 01/02/21 19:00 02/01/21 18:59 01/03/21 18:51 Methylprednisolone Sodium Succinate (Solu-MEDROL) 40 mg EVERY 12 HOURS IVP 01/02/21 09:00 04/02/21 08:59 01/03/21 21:33 Ondansetron HCl (Zofran) 4 mg Q4H PRN IVP Nausea & Vomiting 01/02/21 08:15 02/01/21 08:14 Quetiapine Fumarate (SEROqueL) 200 mg DAILY ORAL 01/02/21 09:00 02/16/21 08:59 01/03/21 09:00 Remdesivir 100 mg/ Sodium Chloride 250 ml @ 250 mls/hr Q24H IV 01/03/21 12:00 01/06/21 12:59 01/03/21 12:00 Risperidone (RisperDAL) 0.5 mg BID ORAL 01/02/21 09:00 02/16/21 08:59 01/03/21 18:49 Temazepam (RestoriL) 7.5 mg BEDTIME ORAL 01/02/21 21:00 01/09/21 20:59 01/03/21 21:33 Tramadol HCl (Ultram) 50 mg Q12H PRN ORAL Moderate Pain (Pain Scale 4-6) 01/02/21 08:00 01/09/21 07:59 Warfarin Sodium (Coumadin per pharmacy) 1 ea DAILY PRN MISC Per rx protocol 01/02/21 08:30 02/01/21 08:29 Zolpidem Tartrate (Ambien) 5 mg HSPRN PRN ORAL Insomnia 01/02/21 08:00 01/09/21 07:59 Renetta Gomez M.D. Jan 04, 2021 07:26
[2021-01-04 08:00] VITALS: BP 100/59
[2021-01-04] MEDS: QUEtiapine 200mg tab ORAL SCH (09:06)
[2021-01-04] MEDS: Solu-MEDROL 40mg Inj IVP SCH ×2 (09:06→21:00)
[2021-01-04] MEDS: Benztropine 1mg tab ORAL SCH ×2 (09:06→17:22)
[2021-01-04] MEDS: Depakote 500mg tab ORAL SCH ×2 (09:08→21:00)
[2021-01-04] MEDS: Maintenance Dose:Remdesivir 100mg/NS 230ml x 4 Doses IV SCH ×2 (11:50)
[2021-01-04 12:00] VITALS: BP 103/70
--- NOTE | 2021-01-04 13:42 | Pulmonology Progress Note ---
Subjective ROS Limited/Unobtainable: Yes Allergies: Coded Allergies: No Known Allergies (Unverified , 01/02/21) Objective Last 24 Hour Vital Signs Date Time Temp Pulse Resp B/P (MAP) Pulse Ox O2 Delivery O2 Flow Rate FiO2 01/04/21 12:00 15.0 100 01/04/21 12:00 98.1 89 22 103/70 (81) 90 01/04/21 12:00 Non-Rebreather 01/04/21 11:44 97 01/04/21 08:00 Non-Rebreather 01/04/21 08:00 98.1 88 23 100/59 (73) 91 01/04/21 08:00 15.0 100 01/04/21 07:55 88 20 91 Non-Rebreather 15.0 100 95 92 01/04/21 07:46 80 01/04/21 04:00 Bi-pap 01/04/21 04:00 98.0 92 22 106/60 (75) 92 01/04/21 04:00 15.0 100 01/04/21 04:00 87 01/04/21 03:00 89 22 93 01/04/21 01:39 95 22 92 01/04/21 00:00 Bi-pap 01/04/21 00:00 98.4 101 22 104/60 (75) 92 01/04/21 00:00 15.0 100 01/03/21 23:52 97 01/03/21 20:00 98 01/03/21 20:00 98.6 96 22 101/58 (72) 92 01/03/21 20:00 15.0 100 01/03/21 20:00 Bi-pap 01/03/21 18:57 95 20 92 Non-Rebreather 15.0 100 01/03/21 16:00 Bi-pap 01/03/21 16:00 98.0 92 22 106/60 (75) 92 01/03/21 16:00 100 01/03/21 16:00 95 Intake and Output 01/03/21 01/04/21 19:00 07:00 Intake Total 290 ml Balance 290 ml Intake Oral 240 ml IV Total 50 ml # Voids 4 # Bowel Movements 1 Microbiology Date/Time Source Procedure Growth Status 01/02/21 13:15 Nasopharynx Coronavirus COVID-19 PCR ([facility]) - Final Complete 01/02/21 01:30 Rectum - Final NO CARBAPENEM-RESISTANT ENTEROBACTERI... Complete 01/02/21 01:30 Rectum VRE Culture - Final NO VANCOMYCIN RESISTANT ENTEROCOCCUS ... Complete 01/02/21 01:30 Nasal Nares MRSA Culture - Final NO METHICILLIN RESISTANT STAPH AUREUS... Complete 01/02/21 01:08 Blood Blood Culture - Preliminary NO GROWTH AFTER 24 HOURS Resulted 01/02/21 01:00 Blood Blood Culture - Preliminary NO GROWTH AFTER 24 HOURS Resulted Laboratory Tests 01/04/21 04:00: White Blood Count 7.4, Red Blood Count 5.05, Hemoglobin 14.2, Hematocrit 46.6, Mean Corpuscular Volume 92, Mean Corpuscular Hemoglobin 28.1, Mean Corpuscular Hemoglobin Concent 30.6L, Red Cell Distribution Width 14.3, Platelet Count 239, Mean Platelet Volume 8.9, Neutrophils (%) (Auto) 80.2H, Lymphocytes (%) (Auto) 14.1L, Monocytes (%) (Auto) 4.7, Eosinophils (%) (Auto) 0.0, Basophils (%) (Auto) 1.0, Prothrombin Time 42.6H, Prothromb Time International Ratio 4.3H, Sodium Level 142, Potassium Level 4.5, Chloride Level 106, Carbon Dioxide Level 27, Anion Gap 9, Blood Urea Nitrogen 15, Creatinine 1.0, Estimat Glomerular Filtration Rate > 60, Glucose Level 325H, Calcium Level 8.3L, Total Bilirubin 0.3, Direct Bilirubin < 0.1, Aspartate Amino Transf (AST/SGOT) 37, Alanine A minotransferase (ALT/SGPT) 24, Alkaline Phosphatase 56, Total Protein 7.0, Albumin 2.3L, Globulin 4.7, Albumin/Globulin Ratio 0.5L Current Medications Medications (Trade) Dose Ordered Sig/Johnny Route PRN Reason Start Time Stop Time Status Last Admin Dose Admin Acetaminophen (Tylenol) 650 mg Q6H PRN ORAL Mild Pain (Pain Scale 1-3) 01/02/21 08:15 02/01/21 08:14 Acetaminophen (Tylenol) 650 mg Q6H PRN ORAL Temp >100.5 01/02/21 08:15 02/01/21 08:14 Acetaminophen/ Hydrocodone Bitart ([place] 5/325) 1 tab Q6H PRN ORAL Severe Pain (Pain Scale 7-10) 01/02/21 08:15 01/09/21 08:14 Albuterol Sulfate (Proventil MDI) 2 puff Q6HRT INH 01/02/21 19:00 04/02/21 18:59 01/04/21 07:55 Azithromycin 500 mg/Dextrose 275 ml @ 275 mls/hr Q24HRS IV 01/03/21 01:00 01/09/21 01:59 01/04/21 01:04 Benztropine Mesylate (Cogentin) 1 mg BID ORAL 01/02/21 09:00 02/01/21 08:59 01/04/21 09:06 Ceftriaxone Sodium 1 gm/ Dextrose 55 ml @ 110 mls/hr Q24H IVPB 01/03/21 01:00 01/10/21 00:59 01/03/21 23:43 Dextrose/Sodium Chloride 1,000 ml @ 50 mls/hr Q20H IV 01/02/21 08:00 02/01/21 07:59 01/03/21 23:43 Divalproex Sodium (Depakote) 500 mg EVERY 12 HOURS ORAL 01/02/21 09:00 02/01/21 08:59 01/04/21 09:08 Ipratropium [place] (Atrovent Inh) 1 puffs Q6HRT INH 01/02/21 19:00 02/01/21 18:59 01/04/21 07:54 Methylprednisolone Sodium Succinate (Solu-MEDROL) 40 mg EVERY 12 HOURS IVP 01/02/21 09:00 04/02/21 08:59 01/04/21 09:06 Ondansetron HCl (Zofran) 4 mg Q4H PRN IVP Nausea & Vomiting 01/02/21 08:15 02/01/21 08:14 Quetiapine Fumarate (SEROqueL) 200 mg DAILY ORAL 01/02/21 09:00 02/16/21 08:59 01/04/21 09:06 Remdesivir 100 mg/ Sodium Chloride 250 ml @ 250 mls/hr Q24H IV 01/03/21 12:00 01/06/21 12:59 01/04/21 11:50 Risperidone (RisperDAL) 0.5 mg BID ORAL 01/02/21 09:00 02/16/21 08:59 2/5/21 09:06 Temazepam (RestoriL) 7.5 mg BEDTIME ORAL 01/02/21 21:00 01/09/21 20:59 01/03/21 21:33 Tramadol HCl (Ultram) 50 mg Q12H PRN ORAL Moderate Pain (Pain Scale 4-6) 01/02/21 08:00 01/09/21 07:59 Warfarin Sodium (Coumadin per pharmacy) 1 ea DAILY PRN MISC Per rx protocol 01/02/21 08:30 02/01/21 08:29 Zolpidem Tartrate (Ambien) 5 mg HSPRN PRN ORAL Insomnia 01/02/21 08:00 01/09/21 07:59 Assessment/Plan Assessment/Plan Pulmonary Progress Note HPI Patient is a 60 man with prior h/o COPD, CPS/bipolar DO, prior DVT/PE on AC, NHR, DM2, HTN and hydrocephalus,admitted with SOB and fevers after a recent diagnosisof Covid19. On high FIO2/BiPAPPRN, ID following and started on CTx/Azithro + REM + SM 40 IV BID, CXR with bilateral infiltrates. Remains on NRB FIO2 100% Allergies: Coded Allergies: No Known Allergies (Unverified , 01/02/21) PMH: COPD, CPS/bipolar DO, prior DVT/PE on AC, NHR, DM2, HTN and hydrocephalus SHx: NHR + T FHx: N/C Physical Exam Deferred Covid19 Vital Signs noted Laboratory Tests noted Height (Feet): 5 Height (Inches): 5.00 Weight (Pounds): 233 Medications Medications noted Assessment/Plan Problem List: (1) Pneumonia due to COVID-19 virus ICD Codes: U07.1 - COVID-19; J12.82 - Pneumonia due to coronavirus disease 2019 SNOMED: 559193713951229750 (2) Acute hypercapnic respiratory failure ICD Codes: J96.02 - Acute respiratory failure with hypercapnia SNOMED: 693642559 (3) Respiratory failure with hypoxia ICD Codes: J96.91 - Respiratory failure, unspecified with hypoxia SNOMED: 98231904932477577 Qualifiers: Qualified Codes: J96.01 - Acute respiratory failure with hypoxia (4) COPD (chronic obstructive pulmonary disease) ICD Codes: J44.9 - Chronic obstructive pulmonary disease, unspecified SNOMED: 42754632 (5) History of deep venous thrombosis or pulmonary embolus SNOMED: 363553111 (6) Obesity ICD Codes: E66.9 - Obesity, unspecified SNOMED: 781265953, 462253053 (7) Essential hypertension ICD Codes: I10 - Essential (primary) hypertension SNOMED: 83537608 (8) Diabetes mellitus type 2 in obese ICD Codes: E11.69 - Type 2 diabetes mellitus with other specified complication; E66.9 - Obesity, unspecified SNOMED: 55422430 (9) History of hydrocephalus ICD Codes: Z86.69 - Personal history of other diseases of the nervous system and sense organs SNOMED: 276439339 (10) Schizophrenia ICD Codes: F20.9 - Schizophrenia, unspecified SNOMED: 60684601 (11) Bipolar 1 disorder ICD Codes: F31.9 - Bipolar disorder, unspecified SNOMED: 200017472 (12) Anticoagulant long-term use ICD Codes: Z79.01 - assisted (current) use of anticoagulants SNOMED: 760803705 Assessment/Plan: Optimize pulmonary hygiene/mobilize as tolerated BiPAP PRN and qHS Titrate down FiO2 to keep SaO2 > 92% HFA's Prone if able F/U inflammatory markers and covid labs ID recs REM/SM 40 per ID Abx per ID F/U Cx's Monitor volumes and renal function DVT Px: Coumadin NPO, 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
[2021-01-04 16:00] VITALS: BP 117/69
[2021-01-04] MEDS: NovoLOG Insulin Flexpen SUBQ SCH ×2 (16:46→21:00)
--- NOTE | 2021-01-04 19:18 | Internal Med Progress Note ---
Subjective Physician Name Geovanny Bradley Attending Physician Geovanny Bradley MD Current Medications Medications (Trade) Dose Ordered Sig/Johnny Route PRN Reason Start Time Stop Time Status Last Admin Dose Admin Acetaminophen (Tylenol) 650 mg Q6H PRN ORAL Mild Pain (Pain Scale 1-3) 01/02/21 08:15 02/01/21 08:14 Acetaminophen (Tylenol) 650 mg Q6H PRN ORAL Temp >100.5 01/02/21 08:15 02/01/21 08:14 Acetaminophen/ Hydrocodone Bitart ([place] 5/325) 1 tab Q6H PRN ORAL Severe Pain (Pain Scale 7-10) 01/02/21 08:15 01/09/21 08:14 Albuterol Sulfate (Proventil MDI) 2 puff Q6HRT INH 01/02/21 19:00 04/02/21 18:59 01/04/21 07:55 Azithromycin 500 mg/Dextrose 275 ml @ 275 mls/hr Q24HRS IV 01/03/21 01:00 01/09/21 01:59 01/04/21 01:04 Benztropine Mesylate (Cogentin) 1 mg BID ORAL 01/02/21 09:00 02/01/21 08:59 01/04/21 17:22 Ceftriaxone Sodium 1 gm/ Dextrose 55 ml @ 110 mls/hr Q24H IVPB 01/03/21 01:00 01/10/21 00:59 01/03/21 23:43 Dextrose (Dextrose 50%) 25 ml Q30M PRN IV Hypoglycemia 01/04/21 14:45 04/04/21 14:44 Dextrose (Dextrose 50%) 50 ml Q30M PRN IV Hypoglycemia 01/04/21 14:45 04/04/21 14:44 Divalproex Sodium (Depakote) 500 mg EVERY 12 HOURS ORAL 01/02/21 09:00 02/01/21 08:59 01/04/21 09:08 Insulin Aspart (NovoLOG) BEFORE MEALS AND HS SUBQ 01/04/21 16:30 04/04/21 16:29 01/04/21 16:46 Ipratropium [place] (Atrovent Inh) 1 puffs Q6HRT INH 01/02/21 19:00 02/01/21 18:59 01/04/21 07:54 Methylprednisolone Sodium Succinate (Solu-MEDROL) 40 mg EVERY 12 HOURS IVP 01/02/21 09:00 04/02/21 08:59 01/04/21 09:06 Ondansetron HCl (Zofran) 4 mg Q4H PRN IVP Nausea & Vomiting 01/02/21 08:15 02/01/21 08:14 Quetiapine Fumarate (SEROqueL) 200 mg DAILY ORAL 01/02/21 09:00 02/16/21 08:59 01/04/21 09:06 Remdesivir 100 mg/ Sodium Chloride 250 ml @ 250 mls/hr Q24H IV 01/03/21 12:00 01/06/21 12:59 01/04/21 11:50 Risperidone (RisperDAL) 0.5 mg BID ORAL 01/02/21 09:00 02/16/21 08:59 01/04/21 17:22 Temazepam (RestoriL) 7.5 mg BEDTIME ORAL 01/02/21 21:00 01/09/21 20:59 01/03/21 21:33 Tramadol HCl (Ultram) 50 mg Q12H PRN ORAL Moderate Pain (Pain Scale 4-6) 01/02/21 08:00 01/09/21 07:59 Warfarin Sodium (Coumadin per pharmacy) 1 ea DAILY PRN MISC Per rx protocol 01/02/21 08:30 02/01/21 08:29 Zolpidem Tartrate (Ambien) 5 mg HSPRN PRN ORAL Insomnia 01/02/21 08:00 01/09/21 07:59 Allergies: Coded Allergies: No Known Allergies (Unverified , 01/02/21) Subjective awake, responsive, confused, still shortness of breath on Venti Mask, WBC: 7.4 Objective Last Vital Signs Date Time Temp Pulse Resp B/P (MAP) Pulse Ox O2 Delivery O2 Flow Rate FiO2 01/04/21 16:00 Non-Rebreather 01/04/21 16:00 98.2 86 22 117/69 (85) 91 01/04/21 16:00 15.0 100 Laboratory Tests Test 01/04/21 04:00 01/04/21 16:29 White Blood Count 7.4 K/UL (4.8-10.8) Red Blood Count 5.05 M/UL (4.70-6.10) Hemoglobin 14.2 G/DL (14.2-18.0) Hematocrit 46.6 % (42.0-52.0) Mean Corpuscular Volume 92 FL (80-99) Mean Corpuscular Hemoglobin 28.1 PG (27.0-31.0) Mean Corpuscular Hemoglobin Concent 30.6 G/DL (32.0-36.0) L Red Cell Distribution Width 14.3 % (11.6-14.8) Platelet Count 239 K/UL (150-450) Mean Platelet Volume 8.9 FL (6.5-10.1) Neutrophils (%) (Auto) 80.2 % (45.0-75.0) H Lymphocytes (%) (Auto) 14.1 % (20.0-45.0) L Monocytes (%) (Auto) 4.7 % (1.0-10.0) Eosinophils (%) (Auto) 0.0 % (0.0-3.0) Basophils (%) (Auto) 1.0 % (0.0-2.0) Prothrombin Time 42.6 SEC (9.30-11.50) H Prothromb Time International Ratio 4.3 (0.9-1.1) H Sodium Level 142 MMOL/L (136-145) Potassium Level 4.5 MMOL/L (3.5-5.1) Chloride Level 106 MMOL/L (98-107) Carbon Dioxide Level 27 MMOL/L (21-32) Anion Gap 9 mmol/L (5-15) Blood Urea Nitrogen 15 mg/dL (7-18) Creatinine 1.0 MG/DL (0.55-1.30) Estimat Glomerular Filtration Rate > 60 mL/min (>60) Glucose Level 325 MG/DL (74-106) H Calcium Level 8.3 MG/DL (8.5-10.1) L Total Bilirubin 0.3 MG/DL (0.2-1.0) Direct Bilirubin < 0.1 MG/DL (0.0-0.3) Aspartate Amino Transf (AST/SGOT) 37 U/L (15-37) Alanine Aminotransferase (ALT/SGPT) 24 U/L (12-78) Alkaline Phosphatase 56 U/L (46-116) Total Protein 7.0 G/DL (6.4-8.2) Albumin 2.3 G/DL (3.4-5.0) L Globulin 4.7 g/dL Albumin/Globulin Ratio 0.5 (1.0-2.7) L POC Whole Blood Glucose Pending Microbiology Date/Time Source Procedure Growth Status 01/02/21 13:15 Nasopharynx Coronavirus COVID-19 PCR ([facility]) - Final Complete 01/02/21 01:30 Rectum - Final NO CARBAPENEM-RESISTANT ENTEROBACTERI... Complete 01/02/21 01:30 Rectum VRE Culture - Final NO VANCOMYCIN RESISTANT ENTEROCOCCUS ... Complete 01/02/21 01:30 Nasal Nares MRSA Culture - Final NO METHICILLIN RESISTANT STAPH AUREUS... Complete 01/02/21 01:08 Blood Blood Culture - Preliminary NO GROWTH AFTER 24 HOURS Resulted 01/02/21 01:00 Blood Blood Culture - Preliminary NO GROWTH AFTER 24 HOURS Resulted Intake and Output 01/03/21 01/04/21 19:00 07:00 Intake Total 290 ml Balance 290 ml Intake Oral 240 ml IV Total 50 ml # Voids 4 # Bowel Movements 1 Objective General: awake, responsive , confused. HEENT: NCAT, sclera anicteric, PERRL, EOMI. Neck: Supple, no significant jugular venous distention, Lungs: decreased air at the bases, occasional crackles, no Wheeze. Heart: Regular rate and rhythm, normal S1/S2, no murmurs Abdomen: soft, nontender, nondistended. Normoactive bowel sound, obesity. / Rectal: Refused and deferred. Extremities: Left LE: No Cyanosis , clubbing or edema. Right LE AKA. Neuro: A&O x 2, Able to move all extremities Skin: warm, no rashes or lesions. Assessment/Plan Assessment/Plan (1) Pneumonia due to COVID-19 virus ICD Codes: U07.1 - COVID-19; J12.82 - Pneumonia due to coronavirus disease 2019 SNOMED: 042896248114554784 (2) Acute hypercapnic respiratory failure ICD Codes: J96.02 - Acute respiratory failure with hypercapnia SNOMED: 916445700 (3) Respiratory failure with hypoxia ICD Codes: J96.91 - Respiratory failure, unspecified with hypoxia SNOMED: 86737427638793913 Qualifiers: Qualified Codes: J96.01 - Acute respiratory failure with hypoxia (4) COPD (chronic obstructive pulmonary disease) ICD Codes: J44.9 - Chronic obstructive pulmonary disease, unspecified SNOMED: 46546725 (5) History of deep venous thrombosis or pulmonary embolus SNOMED: 061514833 (6) Obesity ICD Codes: E66.9 - Obesity, unspecified SNOMED: 282641718, 618165088 (7) Essential hypertension ICD Codes: I10 - Essential (primary) hypertension SNOMED: 99949746 (8) Diabetes mellitus type 2 in obese ICD Codes: E11.69 - Type 2 diabetes mellitus with other specified complication; E66.9 - Obesity, unspecified SNOMED: 44643952 (9) History of hydrocephalus ICD Codes: Z86.69 - Personal history of other diseases of the nervous system and sense organs SNOMED: 635314492 (10) Schizophrenia ICD Codes: F20.9 - Schizophrenia, unspecified SNOMED: 34888141 (11) Bipolar 1 disorder ICD Codes: F31.9 - Bipolar disorder, unspecified SNOMED: 411636463 (12) Anticoagulant long-term use ICD Codes: Z79.01 - residential (current) use of anticoagulants SNOMED: 813502409 Assessment/Plan: Optimize pulmonary hygiene/mobilize as tolerated BiPAP PRN and qHS Titrate down FiO2 to keep SaO2 > 92% HFA's Prone if able On Remdesivir IV Solu-Medrol 40 mg IV twice a day. Abx (Ctx/Azithro) F/U Cx's Monitor volumes and renal function DVT Px: Coumadin DC IV fluid Start diet Monitor blood glucose level closely. FULL Code Geovanny Bradley MD Jan 04, 2021 19:18
[2021-01-04 20:00] VITALS: BP 105/45
[2021-01-05] VITALS: BP 0/45
[2021-01-05] MEDS: cefTRIAXone 1 GM in D5W 55 ML IVPB SCH (01:00)
[2021-01-05] MEDS: Ipratropium Bromide Inhaler INH SCH ×4 (01:00→19:18)
[2021-01-05] MEDS: Albuterol 90mcg Inhaler 8gm INH SCH ×4 (01:00→19:18)
[2021-01-05] MEDS: Azithromycin 500 MG in D5W 275 ML IV SCH (03:00)
[2021-01-05 04:00] VITALS: BP 112/48
[2021-01-05 05:47] LABS: BASOPHILS % (AUTO) 1.7 % (0.0-2.0); EOSINOPHILS % (AUTO) 0.1 % (0.0-3.0); HEMATOCRIT 46.4 % (42.0-52.0); HEMOGLOBIN 14.4 G/DL (14.2-18.0); LYMPHOCYTES % (AUTO) 17.8 % (20.0-45.0); MEAN CORPUSCULAR VOLUME 91 FL (80-99); MONOCYTES % (AUTO) 6.2 % (1.0-10.0); NEUTROPHILS % (AUTO) 74.3 % (45.0-75.0); PLATELET COUNT 301 K/UL (150-450); RED BLOOD COUNT 5.11 M/UL (4.70-6.10); RED CELL DISTRIBUTION WIDTH 14.2 % (11.6-14.8); WHITE BLOOD COUNT 9.7 K/UL (4.8-10.8)
[2021-01-05 05:58] LABS: INR 3.2 (0.9-1.1)
[2021-01-05 06:28] LABS: ALANINE AMINOTRANSFERASE 27 U/L (12-78); ALBUMIN 2.3 G/DL (3.4-5.0); ALBUMIN/GLOBULIN RATIO 0.5 (1.0-2.7); ALKALINE PHOSPHATASE 66 U/L (46-116); ANION GAP 10 mmol/L (5-15); ASPARTATE AMINO TRANSFERASE 39 U/L (15-37); BILIRUBIN,DIRECT < 0.1 MG/DL (0.0-0.3); BILIRUBIN,TOTAL 0.4 MG/DL (0.2-1.0); BLOOD UREA NITROGEN 17 mg/dL (7-18); CALCIUM 8.4 MG/DL (8.5-10.1); CARBON DIOXIDE 25 MMOL/L (21-32); CHLORIDE 109 MMOL/L (98-107); CREATININE 0.9 MG/DL (0.55-1.30); POTASSIUM 3.9 MMOL/L (3.5-5.1); SODIUM 144 MMOL/L (136-145)
[2021-01-05] MEDS: NovoLOG Insulin Flexpen SUBQ SCH ×4 (06:30→21:00)
--- NOTE | 2021-01-05 06:44 | Pulmonology Progress Note ---
Subjective ROS Limited/Unobtainable: Yes Allergies: Coded Allergies: No Known Allergies (Unverified , 01/02/21) Objective Last 24 Hour Vital Signs Date Time Temp Pulse Resp B/P (MAP) Pulse Ox O2 Delivery O2 Flow Rate FiO2 01/05/21 04:00 98.6 97 26 112/48 (69) 91 01/05/21 04:00 85 01/05/21 04:00 15.0 100 01/05/21 04:00 Non-Rebreather 01/05/21 00:00 Non-Rebreather 01/05/21 00:00 96 01/05/21 00:00 98.0 95 22 0/45 (30) 89 01/04/21 21:23 83 01/04/21 21:23 15.0 100 01/04/21 20:01 92 Non-Rebreather 15.0 100 01/04/21 20:00 Non-Rebreather 01/04/21 20:00 98.2 95 22 105/45 (65) 89 01/04/21 16:00 Non-Rebreather 01/04/21 16:00 98.2 86 22 117/69 (85) 91 01/04/21 16:00 85 01/04/21 16:00 15.0 100 01/04/21 12:00 15.0 100 01/04/21 12:00 98.1 89 22 103/70 (81) 90 01/04/21 12:00 Non-Rebreather 01/04/21 11:44 97 01/04/21 08:00 Non-Rebreather 01/04/21 08:00 98.1 88 23 100/59 (73) 91 01/04/21 08:00 15.0 100 01/04/21 07:55 88 20 91 Non-Rebreather 15.0 100 95 92 01/04/21 07:46 80 Intake and Output 01/04/21 01/05/21 19:00 07:00 Intake Total 860 ml 60 ml Output Total 1400 ml 600 ml Balance -540 ml -540 ml Intake Oral 260 ml 60 ml IV Total 600 ml Output Urine Total 1400 ml 600 ml Microbiology Date/Time Source Procedure Growth Status 01/02/21 13:15 Nasopharynx Coronavirus COVID-19 PCR ([facility]) - Final Complete Laboratory Tests 01/04/21 16:29: POC Whole Blood Glucose [Pending] 01/04/21 20:18: POC Whole Blood Glucose 271H 01/05/21 04:30: White Blood Count 9.7, Red Blood Count 5.11, Hemoglobin 14.4, Hematocrit 46.4, Mean Corpuscular Volume 91, Mean Corpuscular Hemoglobin 28.1, Mean Corpuscular Hemoglobin Concent 30.9L, Red Cell Distribution Width 14.2, Platelet Count 301, Mean Platelet Volume 8.3, Neutrophils (%) (Auto) 74.3, Lymphocytes (%) (Auto) 17.8L, Monocytes (%) (Auto) 6.2, Eosinophils (%) (Auto) 0.1, Basophils (%) (Auto) 1.7, Prothrombin Time 32.0H, Prothromb Time International Ratio 3.2H, Sodium Level 144, Potassium Level 3.9, Chloride Level 109H, Carbon Dioxide Level 25, Anion Gap 10, Blood Urea Nitrogen 17, Creatinine 0.9, Estimat Glomerular Filtration Rate > 60, Glucose Level 231H, Calcium Level 8.4L, Total Bilirubin 0.4, Direct Bilirubin < 0.1, Aspartate Amino Transf (AST/SGOT) 39H, Alanine Aminotransferase (ALT/SGPT) 27, Alkaline Phosphatase 66, Total Protein 7.0, Albumin 2.3L, Globulin 4.7, Albumin/Globulin Ratio 0.5L Current Medications Medications (Trade) Dose Ordered Sig/Johnny Route PRN Reason Start Time Stop Time Status Last Admin Dose Admin Acetaminophen (Tylenol) 650 mg Q6H PRN ORAL Mild Pain (Pain Scale 1-3) 01/02/21 08:15 02/01/21 08:14 Acetaminophen (Tylenol) 650 mg Q6H PRN ORAL Temp >100.5 01/02/21 08:15 02/01/21 08:14 Acetaminophen/ Hydrocodone Bitart ([place] 5/325) 1 tab Q6H PRN ORAL Severe Pain (Pain Scale 7-10) 01/02/21 08:15 01/09/21 08:14 Albuterol Sulfate (Proventil MDI) 2 puff Q6HRT INH 01/02/21 19:00 04/02/21 18:59 01/05/21 01:00 Azithromycin 500 mg/Dextrose 275 ml @ 275 mls/hr Q24HRS IV 01/03/21 01:00 01/09/21 01:59 01/05/21 03:00 Benztropine Mesylate (Cogentin) 1 mg BID ORAL 01/02/21 09:00 02/01/21 08:59 01/04/21 17:22 Ceftriaxone Sodium 1 gm/ Dextrose 55 ml @ 110 mls/hr Q24H IVPB 01/03/21 01:00 01/10/21 00:59 01/05/21 01:00 Dextrose (Dextrose 50%) 25 ml Q30M PRN IV Hypoglycemia 01/04/21 14:45 04/04/21 14:44 Dextrose (Dextrose 50%) 50 ml Q30M PRN IV Hypoglycemia 01/04/21 14:45 04/04/21 14:44 Divalproex Sodium (Depakote) 500 mg EVERY 12 HOURS ORAL 01/02/21 09:00 02/01/21 08:59 01/04/21 21:00 Insulin Aspart (NovoLOG) BEFORE MEALS AND HS SUBQ 01/04/21 16:30 04/04/21 16:29 01/04/21 21:00 Ipratropium [place] (Atrovent Inh) 1 puffs Q6HRT INH 01/02/21 19:00 02/01/21 18:59 01/05/21 01:00 Methylprednisolone Sodium Succinate (Solu-MEDROL) 40 mg EVERY 12 HOURS IVP 01/02/21 09:00 04/02/21 08:59 01/04/21 21:00 Ondansetron HCl (Zofran) 4 mg Q4H PRN IVP Nausea & Vomiting 01/02/21 08:15 02/01/21 08:14 Quetiapine Fumarate (SEROqueL) 200 mg DAILY ORAL 01/02/21 09:00 02/16/21 08:59 01/04/21 09:06 Remdesivir 100 mg/ Sodium Chloride 250 ml @ 250 mls/hr Q24H IV 01/03/21 12:00 01/06/21 12:59 01/04/21 11:50 Risperidone (RisperDAL) 0.5 mg BID ORAL 01/02/21 09:00 02/16/21 08:59 01/04/21 17:22 Temazepam (RestoriL) 7.5 mg BEDTIME ORAL 01/02/21 21:00 01/09/21 20:59 01/04/21 21:00 Tramadol HCl (Ultram) 50 mg Q12H PRN ORAL Moderate Pain (Pain Scale 4-6) 01/02/21 08:00 01/09/21 07:59 Warfarin Sodium (Coumadin per pharmacy) 1 ea DAILY PRN MISC Per rx protocol 01/02/21 08:30 02/01/21 08:29 Zolpidem Tartrate (Ambien) 5 mg HSPRN PRN ORAL Insomnia 01/02/21 08:00 01/09/21 07:59 Assessment/Plan Assessment/Plan Pulmonary Progress Note HPI Patient is a 60 man with prior h/o COPD, CPS/bipolar DO, prior DVT/PE on AC, NHR, DM2, HTN and hydrocephalus,admitted with SOB and fevers after a recent diagnosisof Covid19. On high FIO2/BiPAPPRN, ID following and started on CTx/Azithro + REM + SM 40 IV BID, CXR with bilateral infiltrates. Remains on NRB FIO2 100%, proning as tolerated Allergies: Coded Allergies: No Known Allergies (Unverified , 01/02/21) PMH: COPD, CPS/bipolar DO, prior DVT/PE on AC, NHR, DM2, HTN and hydrocephalus SHx: NHR + T FHx: N/C Physical Exam Deferred Covid19 Vital Signs noted Laboratory Tests noted Height (Feet): 5 Height (Inches): 5.00 Weight (Pounds): 233 Medications Medications noted Assessment/Plan Problem List: (1) Pneumonia due to COVID-19 virus ICD Codes: U07.1 - COVID-19; J12.82 - Pneumonia due to coronavirus disease 2019 SNOMED: 147162997700131808 (2) Acute hypercapnic respiratory failure ICD Codes: J96.02 - Acute respiratory failure with hypercapnia SNOMED: 645956267 (3) Respiratory failure with hypoxia ICD Codes: J96.91 - Respiratory failure, unspecified with hypoxia SNOMED: 45811818677097998 Qualifiers: Qualified Codes: J96.01 - Acute respiratory failure with hypoxia (4) COPD (chronic obstructive pulmonary disease) ICD Codes: J44.9 - Chronic obstructive pulmonary disease, unspecified SNOMED: 75712140 (5) History of deep venous thrombosis or pulmonary embolus SNOMED: 089461093 (6) Obesity ICD Codes: E66.9 - Obesity, unspecified SNOMED: 172045596, 013492442 (7) Essential hypertension ICD Codes: I10 - Essential (primary) hypertension SNOMED: 78371200 (8) Diabetes mellitus type 2 in obese ICD Codes: E11.69 - Type 2 diabetes mellitus with other specified complication; E66.9 - Obesity, unspecified SNOMED: 05996585 (9) History of hydrocephalus ICD Codes: Z86.69 - Personal history of other diseases of the nervous system and sense organs SNOMED: 824240171 (10) Schizophrenia ICD Codes: F20.9 - Schizophrenia, unspecified SNOMED: 74918011 (11) Bipolar 1 disorder ICD Codes: F31.9 - Bipolar disorder, unspecified SNOMED: 542022685 (12) Anticoagulant long-term use ICD Codes: Z79.01 - terminal carman (current) use of anticoagulants SNOMED: 022059995 Assessment/Plan: Optimize pulmonary hygiene/mobilize as tolerated BiPAP PRN and QHS Titrate down FiO2 to keep SaO2 > 92% HFA's Prone if able F/U inflammatory markers and covid labs ID recs REM/SM 40 per ID Abx per ID F/U Cx's Monitor volumes and renal function DVT Px: Coumadin NPO, BUTTER MELTER eval when respiratory status stable Anuel Best MD Jan 05, 2021 06:44
[2021-01-05 08:00] VITALS: BP 114/73
[2021-01-05] MEDS: QUEtiapine 200mg tab ORAL SCH (08:04)
[2021-01-05] MEDS: Depakote 500mg tab ORAL SCH ×2 (08:05→20:59)
[2021-01-05] MEDS: Benztropine 1mg tab ORAL SCH ×2 (08:05→17:16)
[2021-01-05] MEDS: Solu-MEDROL 40mg Inj IVP SCH ×2 (08:05→20:59)
[2021-01-05] MEDS: Maintenance Dose:Remdesivir 100mg/NS 230ml x 4 Doses IV SCH ×2 (11:43)
[2021-01-05 12:00] VITALS: BP 124/72
[2021-01-05] MEDS ORDERED: Tubing IV Secondary IV ONE (15:18)
[2021-01-05] MEDS ORDERED: D5 1/2NS 1000ml IV ONE (15:18)
[2021-01-05 16:00] VITALS: BP 120/84
--- NOTE | 2021-01-05 19:09 | Internal Med Progress Note ---
Subjective Date of Service: Jan 05, 2021 Physician Name Brown,Vickey Attending Physician Geovanny Bradley MD Current Medications Medications (Trade) Dose Ordered Sig/Johnny Route PRN Reason Start Time Stop Time Status Last Admin Dose Admin Acetaminophen (Tylenol) 650 mg Q6H PRN ORAL Mild Pain (Pain Scale 1-3) 01/02/21 08:15 02/01/21 08:14 Acetaminophen (Tylenol) 650 mg Q6H PRN ORAL Temp >100.5 01/02/21 08:15 02/01/21 08:14 Acetaminophen/ Hydrocodone Bitart ([place] 5/325) 1 tab Q6H PRN ORAL Severe Pain (Pain Scale 7-10) 01/02/21 08:15 01/09/21 08:14 Albuterol Sulfate (Proventil MDI) 2 puff Q6HRT INH 01/02/21 19:00 04/02/21 18:59 01/05/21 12:46 Azithromycin 500 mg/Dextrose 275 ml @ 275 mls/hr Q24HRS IV 01/03/21 01:00 01/09/21 01:59 01/05/21 03:00 Benztropine Mesylate (Cogentin) 1 mg BID ORAL 01/02/21 09:00 02/01/21 08:59 01/05/21 17:16 Ceftriaxone Sodium 1 gm/ Dextrose 55 ml @ 110 mls/hr Q24H IVPB 01/03/21 01:00 01/10/21 00:59 01/05/21 01:00 Dextrose (Dextrose 50%) 25 ml Q30M PRN IV Hypoglycemia 01/04/21 14:45 04/04/21 14:44 Dextrose (Dextrose 50%) 50 ml Q30M PRN IV Hypoglycemia 01/04/21 14:45 04/04/21 14:44 Divalproex Sodium (Depakote) 500 mg EVERY 12 HOURS ORAL 01/02/21 09:00 02/01/21 08:59 01/05/21 08:05 Insulin Aspart (NovoLOG) BEFORE MEALS AND HS SUBQ 01/04/21 16:30 04/04/21 16:29 01/05/21 16:33 Ipratropium [place] (Atrovent Inh) 1 puffs Q6HRT INH 01/02/21 19:00 02/01/21 18:59 01/05/21 12:46 Methylprednisolone Sodium Succinate (Solu-MEDROL) 40 mg EVERY 12 HOURS IVP 01/02/21 09:00 04/02/21 08:59 01/05/21 08:05 Ondansetron HCl (Zofran) 4 mg Q4H PRN IVP Nausea & Vomiting 01/02/21 08:15 02/01/21 08:14 Quetiapine Fumarate (SEROqueL) 200 mg DAILY ORAL 01/02/21 09:00 02/16/21 08:59 01/05/21 08:04 Remdesivir 100 mg/ Sodium Chloride 250 ml @ 250 mls/hr Q24H IV 01/03/21 12:00 01/06/21 12:59 01/05/21 11:43 Risperidone (RisperDAL) 0.5 mg BID ORAL 01/02/21 09:00 02/16/21 08:59 01/05/21 17:16 Temazepam (RestoriL) 7.5 mg BEDTIME ORAL 01/02/21 21:00 01/09/21 20:59 01/04/21 21:00 Tramadol HCl (Ultram) 50 mg Q12H PRN ORAL Moderate Pain (Pain Scale 4-6) 01/02/21 08:00 01/09/21 07:59 Warfarin Sodium (Coumadin per pharmacy) 1 ea DAILY PRN MISC Per rx protocol 01/02/21 08:30 02/01/21 08:29 Zolpidem Tartrate (Ambien) 5 mg HSPRN PRN ORAL Insomnia 01/02/21 08:00 01/09/21 07:59 Allergies: Coded Allergies: No Known Allergies (Unverified , 01/02/21) ROS Limited/Unobtainable: Yes Subjective 60 YO M admitted with shortness of breath. Now respiratory failure. Cover for Int Rohit-DR Bradley. Step down unit Objective Last Vital Signs Date Time Temp Pulse Resp B/P (MAP) Pulse Ox O2 Delivery O2 Flow Rate FiO2 01/05/21 16:00 93 01/05/21 16:00 98.8 24 120/84 (96) 91 01/05/21 16:00 Non-Rebreather 15.0 01/05/21 07:58 100 Laboratory Tests Test 01/04/21 20:01/05/21 04:30 POC Whole Blood Glucose 271 MG/DL (74-106) H White Blood Count 9.7 K/UL (4.8-10.8) Red Blood Count 5.11 M/UL (4.70-6.10) Hemoglobin 14.4 G/DL (14.2-18.0) Hematocrit 46.4 % (42.0-52.0) Mean Corpuscular Volume 91 FL (80-99) Mean Corpuscular Hemoglobin 28.1 PG (27.0-31.0) Mean Corpuscular Hemoglobin Concent 30.9 G/DL (32.0-36.0) L Red Cell Distribution Width 14.2 % (11.6-14.8) Platelet Count 301 K/UL (150-450) Mean Platelet Volume 8.3 FL (6.5-10.1) Neutrophils (%) (Auto) 74.3 % (45.0-75.0) Lymphocytes (%) (Auto) 17.8 % (20.0-45.0) L Monocytes (%) (Auto) 6.2 % (1.0-10.0) Eosinophils (%) (Auto) 0.1 % (0.0-3.0) Basophils (%) (Auto) 1.7 % (0.0-2.0) Prothrombin Time 32.0 SEC (9.30-11.50) H Prothromb Time International Ratio 3.2 (0.9-1.1) H Sodium Level 144 MMOL/L (136-145) Potassium Level 3.9 MMOL/L (3.5-5.1) Chloride Level 109 MMOL/L (98-107) H Carbon Dioxide Level 25 MMOL/L (21-32) Anion Gap 10 mmol/L (5-15) Blood Urea Nitrogen 17 mg/dL (7-18) Creatinine 0.9 MG/DL (0.55-1.30) Estimat Glomerular Filtration Rate > 60 mL/min (>60) Glucose Level 231 MG/DL (74-106) H Calcium Level 8.4 MG/DL (8.5-10.1) L Total Bilirubin 0.4 MG/DL (0.2-1.0) Direct Bilirubin < 0.1 MG/DL (0.0-0.3) Aspartate Amino Transf (AST/SGOT) 39 U/L (15-37) H Alanine Aminotransferase (ALT/SGPT) 27 U/L (12-78) Alkaline Phosphatase 66 U/L (46-116) Total Protein 7.0 G/DL (6.4-8.2) Albumin 2.3 G/DL (3.4-5.0) L Globulin 4.7 g/dL Albumin/Globulin Ratio 0.5 (1.0-2.7) L Intake and Output 01/04/21 01/05/21 19:00 07:00 Intake Total 860 ml 300 ml Output Total 1400 ml 600 ml Balance -540 ml -300 ml Intake Oral 260 ml 300 ml IV Total 600 ml Output Urine Total 1400 ml 600 ml # Bowel Movements 1 Objective Objective General: awake, responsive , confused. HEENT: NCAT, sclera anicteric, PERRL, EOMI. Neck: Supple, no significant jugular venous distention, Lungs: Non rebreather mask; decreased air at the bases, occasional crackles, no Wheeze. Heart: Regular rate and rhythm, normal S1/S2, no murmurs Abdomen: soft, nontender, nondistended. Normoactive bowel sound, obesity. / Rectal: Refused and deferred. Extremities: Left LE: No Cyanosis , clubbing or edema. Right LE AKA. Neuro: A&O x 2, Able to move all extremities Skin: warm, no rashes or lesions. Assessment/Plan Assessment/Plan Assessment/Plan Assessment/Plan (1) Pneumonia due to COVID-19 virus ICD Codes: U07.1 - COVID-19; J12.82 - Pneumonia due to coronavirus disease 2018 SNOMED: 729896826174971913 (2) Acute hypercapnic respiratory failure ICD Codes: J96.02 - Acute respiratory failure with hypercapnia SNOMED: 298011964 (3) Respiratory failure with hypoxia ICD Codes: J96.91 - Respiratory failure, unspecified with hypoxia SNOMED: 70606092057324317 Qualifiers: Qualified Codes: J96.01 - Acute respiratory failure with hypoxia (4) COPD (chronic obstructive pulmonary disease) ICD Codes: J44.9 - Chronic obstructive pulmonary disease, unspecified SNOMED: 65734823 (5) History of deep venous thrombosis or pulmonary embolus SNOMED: 102768379 (6) Obesity ICD Codes: E66.9 - Obesity, unspecified SNOMED: 867914451, 862127070 (7) Essential hypertension ICD Codes: I10 - Essential (primary) hypertension SNOMED: 47413047 (8) Diabetes mellitus type 2 in obese ICD Codes: E11.69 - Type 2 diabetes mellitus with other specified complication; E66.9 - Obesity, unspecified SNOMED: 90042851 (9) History of hydrocephalus ICD Codes: Z86.69 - Personal history of other diseases of the nervous system and sense organs SNOMED: 195519814 (10) Schizophrenia ICD Codes: F20.9 - Schizophrenia, unspecified SNOMED: 07285850 (11) Bipolar 1 disorder ICD Codes: F31.9 - Bipolar disorder, unspecified SNOMED: 627906748 (12) Anticoagulant long-term use ICD Codes: Z79.01 - long term (current) use of anticoagulants SNOMED: 566553082 Assessment/Plan: Optimize pulmonary hygiene/mobilize as tolerated On Non Rebreather mask BiPAP PRN and qHS Titrate down FiO2 to keep SaO2 > 92% HFA's Prone if able On Remdesivir IV Solu-Medrol 40 mg IV twice a day. Abx (Ctx/Azithro) F/U Cx's Monitor volumes and renal function DVT Px: Coumadin DC IV fluid Start diet Monitor blood glucose level closely. FULL Code Jan 04, 2021 19:18 Vickey Brown MD Jan 05, 2021 19:09
[2021-01-05 20:00] VITALS: BP 125/84
[2021-01-06] VITALS (14 sets, daily range): BP systolic 87–140; BP diastolic 52–88
[2021-01-06] MEDS: cefTRIAXone 1 GM in D5W 55 ML IVPB SCH (00:07)
[2021-01-06] MEDS: Azithromycin 500 MG in D5W 275 ML IV SCH (00:56)
[2021-01-06] MEDS: Ipratropium Bromide Inhaler INH SCH ×4 (01:20→19:00)
[2021-01-06] MEDS: Albuterol 90mcg Inhaler 8gm INH SCH ×4 (01:20→19:00)
[2021-01-06] MEDS: NovoLOG Insulin Flexpen SUBQ SCH ×4 (06:27→20:30)
[2021-01-06 06:42] LABS: BASOPHILS % (AUTO) 1.4 % (0.0-2.0); HEMATOCRIT 48.5 % (42.0-52.0); LYMPHOCYTES % (AUTO) 15.2 % (20.0-45.0); MEAN CORPUSCULAR VOLUME 91 FL (80-99); MONOCYTES % (AUTO) 4.6 % (1.0-10.0); NEUTROPHILS % (AUTO) 78.8 % (45.0-75.0); PLATELET COUNT 332 K/UL (150-450); RED BLOOD COUNT 5.35 M/UL (4.70-6.10); RED CELL DISTRIBUTION WIDTH 14.4 % (11.6-14.8); WHITE BLOOD COUNT 9.4 K/UL (4.8-10.8)
[2021-01-06 07:11] LABS: INR 2.9 (0.9-1.1)
[2021-01-06 07:16] LABS: ALANINE AMINOTRANSFERASE 26 U/L (12-78); ALBUMIN 2.3 G/DL (3.4-5.0); ALBUMIN/GLOBULIN RATIO 0.4 (1.0-2.7); ALKALINE PHOSPHATASE 81 U/L (46-116); ANION GAP 12 mmol/L (5-15); ASPARTATE AMINO TRANSFERASE 33 U/L (15-37); BILIRUBIN,DIRECT < 0.1 MG/DL (0.0-0.3); BILIRUBIN,TOTAL 0.4 MG/DL (0.2-1.0); BLOOD UREA NITROGEN 20 mg/dL (7-18); CALCIUM 8.9 MG/DL (8.5-10.1); CARBON DIOXIDE 23 MMOL/L (21-32); CHLORIDE 108 MMOL/L (98-107); CREATININE 0.9 MG/DL (0.55-1.30); POTASSIUM 4.2 MMOL/L (3.5-5.1); SODIUM 143 MMOL/L (136-145)
[2021-01-06] MEDS ORDERED: LORazepam Inj 2mg/ml 1ml IV PRN ×4 (08:30→21:00)
[2021-01-06] MEDS: QUEtiapine 200mg tab ORAL SCH (09:13)
[2021-01-06] MEDS: Benztropine 1mg tab ORAL SCH ×2 (09:14→18:00)
[2021-01-06] MEDS: Depakote 500mg tab ORAL SCH ×2 (09:14→22:22)
[2021-01-06] MEDS: Solu-MEDROL 40mg Inj IVP SCH ×2 (09:17→20:30)
[2021-01-06] MEDS ORDERED: D5W 275ml ONE (09:53)
[2021-01-06] MEDS ORDERED: Tubing IV Secondary IV ONE (09:53)
--- NOTE | 2021-01-06 10:12 | Infectious Diseases Prog Note ---
Assessment/Plan 60yo M with: COVID pna, severe Acute hypoxia 2/2 COVID pna Febrile to 103 Normal WBC Elevated AST 51 2/2 Tested positive for COVID at SNF 2/3 COVID PCR positive 2/3 BCx NTD CXR: Multifocal pna MRSA nares p Cr 1.1 HIV screen neg PMH: DM2 COPD HTN SNF resident Plan: Cont CTX/azithro #5/5 Cont steroids #5/10, on methylpred 40 IV q12 Cont RDV #5/5 This institution does not have access to convalescent plasma and only recommended to give in setting of clinical trial Monitor CBC/CMP Monitor temp curve, hemodynamics Monitor resp status D/w RN Thank you for this consult. [facility] will continue to follow. Subjective Allergies: Coded Allergies: No Known Allergies (Unverified , 01/02/21) AF NAD on NRB WBC 9.4 Objective Last 24 Hour Vital Signs Date Time Temp Pulse Resp B/P (MAP) Pulse Ox O2 Delivery O2 Flow Rate FiO2 01/06/21 09:16 64 23 132/76 92 01/06/21 08:00 69 01/06/21 07:37 92 Non-Rebreather 15.0 100 01/06/21 04:00 98.6 60 24 135/75 (95) 91 01/06/21 04:00 Non-Rebreather 15.0 01/06/21 03:31 69 01/06/21 00:00 86 01/06/21 00:00 Non-Rebreather 15.0 01/06/21 00:00 98.4 80 24 130/88 (102) 91 01/05/21 20:00 85 01/05/21 20:00 Non-Rebreather 15.0 01/05/21 20:00 98.8 85 24 125/84 (98) 91 01/05/21 19:20 90 Non-Rebreather 15.0 100 01/05/21 16:00 93 01/05/21 16:00 98.8 88 24 120/84 (96) 91 01/05/21 16:00 Non-Rebreather 15.0 01/05/21 12:00 Non-Rebreather 15.0 01/05/21 12:00 91 01/05/21 12:00 99.0 92 24 124/72 (89) 90 Height (Feet): 5 Height (Inches): 5.00 Weight (Pounds): 233 Gen: NAD HEENT: NCAT Pulm: BL chest rise Abd: Non-distended Ext: No c/c/e Skin: No visible rashes Neuro: Awake Laboratory Tests Test 01/06/21 05:50 01/06/21 05:52 White Blood Count 9.4 K/UL (4.8-10.8) Red Blood Count 5.35 M/UL (4.70-6.10) Hemoglobin 15.0 G/DL (14.2-18.0) Hematocrit 48.5 % (42.0-52.0) Mean Corpuscular Volume 91 FL (80-99) Mean Corpuscular Hemoglobin 28.1 PG (27.0-31.0) Mean Corpuscular Hemoglobin Concent 30.9 G/DL (32.0-36.0) L Red Cell Distribution Width 14.4 % (11.6-14.8) Platelet Count 332 K/UL (150-450) Mean Platelet Volume 7.7 FL (6.5-10.1) Neutrophils (%) (Auto) 78.8 % (45.0-75.0) H Lymphocytes (%) (Auto) 15.2 % (20.0-45.0) L Monocytes (%) (Auto) 4.6 % (1.0-10.0) Eosinophils (%) (Auto) 0.0 % (0.0-3.0) Basophils (%) (Auto) 1.4 % (0.0-2.0) Prothrombin Time 29.4 SEC (9.30-11.50) H Prothromb Time International Ratio 2.9 (0.9-1.1) H Sodium Level 143 MMOL/L (136-145) Potassium Level 4.2 MMOL/L (3.5-5.1) Chloride Level 108 MMOL/L (98-107) H Carbon Dioxide Level 23 MMOL/L (21-32) Anion Gap 12 mmol/L (5-15) Blood Urea Nitrogen 20 mg/dL (7-18) H Creatinine 0.9 MG/DL (0.55-1.30) Estimat Glomerular Filtration Rate > 60 mL/min (>60) Glucose Level 318 MG/DL (74-106) H Calcium Level 8.9 MG/DL (8.5-10.1) Total Bilirubin 0.4 MG/DL (0.2-1.0) Direct Bilirubin < 0.1 MG/DL (0.0-0.3) Aspartate Amino Transf (AST/SGOT) 33 U/L (15-37) Alanine Aminotransferase (ALT/SGPT) 26 U/L (12-78) Alkaline Phosphatase 81 U/L (46-116) Total Protein 7.6 G/DL (6.4-8.2) Albumin 2.3 G/DL (3.4-5.0) L Globulin 5.3 g/dL Albumin/Globulin Ratio 0.4 (1.0-2.7) L POC Whole Blood Glucose Pending Current Medications Medications (Trade) Dose Ordered Sig/Johnny Route PRN Reason Start Time Stop Time Status Last Admin Dose Admin Acetaminophen (Tylenol) 650 mg Q6H PRN ORAL Mild Pain (Pain Scale 1-3) 01/02/21 08:15 02/01/21 08:14 Acetaminophen (Tylenol) 650 mg Q6H PRN ORAL Temp >100.5 01/02/21 08:15 02/01/21 08:14 Acetaminophen/ Hydrocodone Bitart ([place] 5/325) 1 tab Q6H PRN ORAL Severe Pain (Pain Scale 7-10) 01/02/21 08:15 01/09/21 08:14 Albuterol Sulfate (Proventil MDI) 2 puff Q6HRT INH 01/02/21 19:00 04/02/21 18:59 01/06/21 01:20 Azithromycin 500 mg/Dextrose 275 ml @ 275 mls/hr Q24HRS IV 01/03/21 01:00 01/09/21 01:59 01/06/21 00:56 Benztropine Mesylate (Cogentin) 1 mg BID ORAL 01/02/21 09:00 02/01/21 08:59 01/06/21 09:14 Ceftriaxone Sodium 1 gm/ Dextrose 55 ml @ 110 mls/hr Q24H IVPB 01/03/21 01:00 01/10/21 00:59 01/06/21 00:07 Dextrose (Dextrose 50%) 25 ml Q30M PRN IV Hypoglycemia 01/04/21 14:45 04/04/21 14:44 Dextrose (Dextrose 50%) 50 ml Q30M PRN IV Hypoglycemia 01/04/21 14:45 04/04/21 14:44 Divalproex Sodium (Depakote) 500 mg EVERY 12 HOURS ORAL 01/02/21 09:00 02/01/21 08:59 01/06/21 09:14 Insulin Aspart (NovoLOG) BEFORE MEALS AND HS SUBQ 01/04/21 16:30 04/04/21 16:29 01/06/21 06:27 Ipratropium [place] (Atrovent Inh) 1 puffs Q6HRT INH 01/02/21 19:00 02/01/21 18:59 01/06/21 01:20 Lorazepam (Ativan 2mg/ml 1ml) 0.5 mg Q6H PRN IV For Anxiety 01/06/21 08:30 01/13/21 08:29 01/06/21 09:16 Methylprednisolone Sodium Succinate (Solu-MEDROL) 40 mg EVERY 12 HOURS IVP 01/02/21 09:00 04/02/21 08:59 01/06/21 09:17 Ondansetron HCl (Zofran) 4 mg Q4H PRN IVP Nausea & Vomiting 01/02/21 08:15 02/01/21 08:14 Quetiapine Fumarate (SEROqueL) 200 mg DAILY ORAL 01/02/21 09:00 02/16/21 08:59 01/06/21 09:13 Remdesivir 100 mg/ Sodium Chloride 250 ml @ 250 mls/hr Q24H IV 01/03/21 12:00 01/06/21 12:59 01/05/21 11:43 Risperidone (RisperDAL) 0.5 mg BID ORAL 01/02/21 09:00 02/16/21 08:59 01/06/21 09:14 Temazepam (RestoriL) 7.5 mg BEDTIME ORAL 01/02/21 21:00 01/09/21 20:59 01/05/21 20:59 Tramadol HCl (Ultram) 50 mg Q12H PRN ORAL Moderate Pain (Pain Scale 4-6) 01/02/21 08:00 01/09/21 07:59 Warfarin Sodium (Coumadin per pharmacy) 1 ea DAILY PRN MISC Per rx protocol 01/02/21 08:30 02/01/21 08:29 Warfarin Sodium (Coumadin) 2.5 mg COUMADIN ONCE ORAL 01/06/21 17:00 01/06/21 17:01 Zolpidem Tartrate (Ambien) 5 mg HSPRN PRN ORAL Insomnia 01/02/21 08:00 01/09/21 07:59 Renetta Gomez M.D. Jan 06, 2021 10:12
[2021-01-06] MEDS: Maintenance Dose:Remdesivir 100mg/NS 230ml x 4 Doses IV SCH ×2 (11:23)
--- NOTE | 2021-01-06 14:42 | Internal Med Progress Note ---
Subjective Date of Service: Jan 06, 2021 Physician Name Brown,Vickey Attending Physician Geovanny Bradley MD Current Medications Medications (Trade) Dose Ordered Sig/Johnny Route PRN Reason Start Time Stop Time Status Last Admin Dose Admin Acetaminophen (Tylenol) 650 mg Q6H PRN ORAL Mild Pain (Pain Scale 1-3) 01/02/21 08:15 02/01/21 08:14 Acetaminophen (Tylenol) 650 mg Q6H PRN ORAL Temp >100.5 01/02/21 08:15 02/01/21 08:14 Acetaminophen/ Hydrocodone Bitart ([place] 5/325) 1 tab Q6H PRN ORAL Severe Pain (Pain Scale 7-10) 01/02/21 08:15 01/09/21 08:14 Albuterol Sulfate (Proventil MDI) 2 puff Q6HRT INH 01/02/21 19:00 04/02/21 18:59 01/06/21 13:00 Azithromycin 500 mg/Dextrose 275 ml @ 275 mls/hr Q24HRS IV 01/03/21 01:00 01/09/21 01:59 01/06/21 00:56 Benztropine Mesylate (Cogentin) 1 mg BID ORAL 01/02/21 09:00 02/01/21 08:59 01/06/21 09:14 Ceftriaxone Sodium 1 gm/ Dextrose 55 ml @ 110 mls/hr Q24H IVPB 01/03/21 01:00 01/10/21 00:59 01/06/21 00:07 Dextrose (Dextrose 50%) 25 ml Q30M PRN IV Hypoglycemia 01/04/21 14:45 04/04/21 14:44 Dextrose (Dextrose 50%) 50 ml Q30M PRN IV Hypoglycemia 01/04/21 14:45 04/04/21 14:44 Divalproex Sodium (Depakote) 500 mg EVERY 12 HOURS ORAL 01/02/21 09:00 02/01/21 08:59 01/06/21 09:14 Insulin Aspart (NovoLOG) BEFORE MEALS AND HS SUBQ 01/04/21 16:30 04/04/21 16:29 01/06/21 11:36 Ipratropium [place] (Atrovent Inh) 1 puffs Q6HRT INH 01/02/21 19:00 02/01/21 18:59 01/06/21 13:00 Lorazepam (Ativan 2mg/ml 1ml) 0.5 mg Q6H PRN IV For Anxiety 01/06/21 08:30 01/13/21 08:29 01/06/21 09:16 Methylprednisolone Sodium Succinate (Solu-MEDROL) 40 mg EVERY 12 HOURS IVP 01/02/21 09:00 04/02/21 08:59 01/06/21 09:17 Ondansetron HCl (Zofran) 4 mg Q4H PRN IVP Nausea & Vomiting 01/02/21 08:15 02/01/21 08:14 Quetiapine Fumarate (SEROqueL) 200 mg DAILY ORAL 01/02/21 09:00 02/16/21 08:59 01/06/21 09:13 Risperidone (RisperDAL) 0.5 mg BID ORAL 01/02/21 09:00 02/16/21 08:59 01/06/21 09:14 Temazepam (RestoriL) 7.5 mg BEDTIME ORAL 01/02/21 21:00 01/09/21 20:59 01/05/21 20:59 Tramadol HCl (Ultram) 50 mg Q12H PRN ORAL Moderate Pain (Pain Scale 4-6) 01/02/21 08:00 01/09/21 07:59 Warfarin Sodium (Coumadin per pharmacy) 1 ea DAILY PRN MISC Per rx protocol 01/02/21 08:30 02/01/21 08:29 Warfarin Sodium (Coumadin) 2.5 mg COUMADIN ONCE ORAL 01/06/21 17:00 01/06/21 17:01 Zolpidem Tartrate (Ambien) 5 mg HSPRN PRN ORAL Insomnia 01/02/21 08:00 01/09/21 07:59 Allergies: Coded Allergies: No Known Allergies (Unverified , 01/02/21) ROS Limited/Unobtainable: Yes Subjective 60 YO M admitted with shortness of breath. Now respiratory failure. Cover for Int Rohit-DR Bradley. Step down unit Objective Last Vital Signs Date Time Temp Pulse Resp B/P (MAP) Pulse Ox O2 Delivery O2 Flow Rate FiO2 01/06/21 12:00 Non-Rebreather 15.0 01/06/21 12:00 98.8 88 25 132/74 (93) 90 01/06/21 07:37 100 Laboratory Tests Test 01/06/21 05:50 01/06/21 05:52 White Blood Count 9.4 K/UL (4.8-10.8) Red Blood Count 5.35 M/UL (4.70-6.10) Hemoglobin 15.0 G/DL (14.2-18.0) Hematocrit 48.5 % (42.0-52.0) Mean Corpuscular Volume 91 FL (80-99) Mean Corpuscular Hemoglobin 28.1 PG (27.0-31.0) Mean Corpuscular Hemoglobin Concent 30.9 G/DL (32.0-36.0) L Red Cell Distribution Width 14.4 % (11.6-14.8) Platelet Count 332 K/UL (150-450) Mean Platelet Volume 7.7 FL (6.5-10.1) Neutrophils (%) (Auto) 78.8 % (45.0-75.0) H Lymphocytes (%) (Auto) 15.2 % (20.0-45.0) L Monocytes (%) (Auto) 4.6 % (1.0-10.0) Eosinophils (%) (Auto) 0.0 % (0.0-3.0) Basophils (%) (Auto) 1.4 % (0.0-2.0) Prothrombin Time 29.4 SEC (9.30-11.50) H Prothromb Time International Ratio 2.9 (0.9-1.1) H Sodium Level 143 MMOL/L (136-145) Potassium Level 4.2 MMOL/L (3.5-5.1) Chloride Level 108 MMOL/L (98-107) H Carbon Dioxide Level 23 MMOL/L (21-32) Anion Gap 12 mmol/L (5-15) Blood Urea Nitrogen 20 mg/dL (7-18) H Creatinine 0.9 MG/DL (0.55-1.30) Estimat Glomerular Filtration Rate > 60 mL/min (>60) Glucose Level 318 MG/DL (74-106) H Calcium Level 8.9 MG/DL (8.5-10.1) Total Bilirubin 0.4 MG/DL (0.2-1.0) Direct Bilirubin < 0.1 MG/DL (0.0-0.3) Aspartate Amino Transf (AST/SGOT) 33 U/L (15-37) Alanine Aminotransferase (ALT/SGPT) 26 U/L (12-78) Alkaline Phosphatase 81 U/L (46-116) Total Protein 7.6 G/DL (6.4-8.2) Albumin 2.3 G/DL (3.4-5.0) L Globulin 5.3 g/dL Albumin/Globulin Ratio 0.4 (1.0-2.7) L POC Whole Blood Glucose Pending Intake and Output 01/05/21 01/06/21 19:00 07:00 Intake Total 150 ml 240 ml Output Total 800 ml 600 ml Balance -650 ml -360 ml Intake Oral 150 ml 240 ml Output Urine Total 800 ml 600 ml # Voids 4 # Bowel Movements 1 Objective Objective General: awake, responsive , confused. HEENT: NCAT, sclera anicteric, PERRL, EOMI. Neck: Supple, no significant jugular venous distention, Lungs: Non rebreather mask; decreased air at the bases, occasional crackles, no Wheeze. Heart: Regular rate and rhythm, normal S1/S2, no murmurs Abdomen: soft, nontender, nondistended. Normoactive bowel sound, obesity. / Rectal: Refused and deferred. Extremities: Left LE: No Cyanosis , clubbing or edema. Right LE AKA. Neuro: A&O x 2, Able to move all extremities Skin: warm, no rashes or lesions. Assessment/Plan Assessment/Plan Assessment/Plan Assessment/Plan (1) Pneumonia due to COVID-19 virus ICD Codes: U07.1 - COVID-19; J12.82 - Pneumonia due to coronavirus disease 2019 SNOMED: 082890776729361136 (2) Acute hypercapnic respiratory failure ICD Codes: J96.02 - Acute respiratory failure with hypercapnia SNOMED: 247266195 (3) Respiratory failure with hypoxia ICD Codes: J96.91 - Respiratory failure, unspecified with hypoxia SNOMED: 06728910771996871 Qualifiers: Qualified Codes: J96.01 - Acute respiratory failure with hypoxia (4) COPD (chronic obstructive pulmonary disease) ICD Codes: J44.9 - Chronic obstructive pulmonary disease, unspecified SNOMED: 82504077 (5) History of deep venous thrombosis or pulmonary embolus SNOMED: 808288919 (6) Obesity ICD Codes: E66.9 - Obesity, unspecified SNOMED: 503174962, 014679073 (7) Essential hypertension ICD Codes: I10 - Essential (primary) hypertension SNOMED: 15430818 (8) Diabetes mellitus type 2 in obese ICD Codes: E11.69 - Type 2 diabetes mellitus with other specified complication; E66.9 - Obesity, unspecified SNOMED: 64894607 (9) History of hydrocephalus ICD Codes: Z86.69 - Personal history of other diseases of the nervous system an d sense organs SNOMED: 750633427 (10) Schizophrenia ICD Codes: F20.9 - Schizophrenia, unspecified SNOMED: 53697088 (11) Bipolar 1 disorder ICD Codes: F31.9 - Bipolar disorder, unspecified SNOMED: 638266651 (12) Anticoagulant long-term use ICD Codes: Z79.01 - [employer] (current) use of anticoagulants SNOMED: 564535738 Assessment/Plan: Optimize pulmonary hygiene/mobilize as tolerated On Non Rebreather mask BiPAP PRN and qHS Titrate down FiO2 to keep SaO2 > 92% HFA's Prone if able On Remdesivir IV Solu-Medrol 40 mg IV twice a day. Abx (Ctx/Azithro) F/U Cx's Monitor volumes and renal function DVT Px: Coumadin DC IV fluid Start diet Monitor blood glucose level closely. FULL Code Jan 04, 2021 19:18 Vickey Brown MD Jan 06, 2021 14:42
[2021-01-06] MEDS ORDERED: LORazepam Inj 2mg/ml 1ml IM SCH (15:00)
[2021-01-06] MEDS ORDERED: Haloperidol 5mg/ml Inj IM SCH (15:15)
[2021-01-06] MEDS ORDERED: Warfarin Sodium 2.5mg ORAL ONE (17:00)
--- NOTE | 2021-01-06 17:58 | Pulmonology Progress Note ---
Subjective ROS Limited/Unobtainable: Yes Allergies: Coded Allergies: No Known Allergies (Unverified , 01/02/21) Objective Last 24 Hour Vital Signs Date Time Temp Pulse Resp B/P (MAP) Pulse Ox O2 Delivery O2 Flow Rate FiO2 01/06/21 16:00 80 01/06/21 12:00 Non-Rebreather 15.0 01/06/21 12:00 98.8 88 25 132/74 (93) 90 01/06/21 12:00 68 01/06/21 09:46 84 25 128/70 91 01/06/21 09:16 64 23 132/76 92 01/06/21 08:00 Non-Rebreather 15.0 01/06/21 08:00 69 01/06/21 08:00 98.8 84 20 118/76 (90) 91 01/06/21 07:37 92 Non-Rebreather 15.0 100 01/06/21 04:00 98.6 60 24 135/75 (95) 91 01/06/21 04:00 Non-Rebreather 15.0 01/06/21 03:31 69 01/06/21 00:00 86 01/06/21 00:00 Non-Rebreather 15.0 01/06/21 00:00 98.4 80 24 130/88 (102) 91 01/05/21 20:00 85 01/05/21 20:00 Non-Rebreather 15.0 01/05/21 20:00 98.8 85 24 125/84 (98) 91 01/05/21 19:20 90 Non-Rebreather 15.0 100 Intake and Output 01/05/21 01/06/21 19:00 07:00 Intake Total 150 ml 240 ml Output Total 800 ml 600 ml Balance -650 ml -360 ml Intake Oral 150 ml 240 ml Output Urine Total 800 ml 600 ml # Voids 4 # Bowel Movements 1 Laboratory Tests 01/06/21 05:50: White Blood Count 9.4, Red Blood Count 5.35, Hemoglobin 15.0, Hematocrit 48.5, Mean Corpuscular Volume 91, Mean Corpuscular Hemoglobin 28.1, Mean Corpuscular Hemoglobin Concent 30.9L, Red Cell Distribution Width 14.4, Platelet Count 332, Mean Platelet Volume 7.7, Neutrophils (%) (Auto) 78.8H, Lymphocytes (%) (Auto) 15.2L, Monocytes (%) (Auto) 4.6, Eosinophils (%) (Auto) 0.0, Basophils (%) (Auto) 1.4, Prothrombin Time 29.4H, Prothromb Time International Ratio 2.9H, Sodium Level 143, Potassium Level 4.2, Chloride Level 108H, Carbon Dioxide Level 23, Anion Gap 12, Blood Urea Nitrogen 20H, Creatinine 0.9, Estimat Glomerular Filtration Rate > 60, Glucose Level 318H, Calcium Level 8.9, Total Bilirubin 0.4, Direct Bilirubin < 0.1, Aspartate Amino Transf (AST/SGOT) 33, Alanine Aminotransferase (ALT/SGPT) 26, Alkaline Phosphatase 81, Total Protein 7.6, Albumin 2.3L, Globulin 5.3, Albumin/Globulin Ratio 0.4L 01/06/21 05:52: POC Whole Blood Glucose [Pending] Current Medications Medications (Trade) Dose Ordered Sig/Johnny Route PRN Reason Start Time Stop Time Status Last Admin Dose Admin Acetaminophen (Tylenol) 650 mg Q6H PRN ORAL Mild Pain (Pain Scale 1-3) 01/02/21 08:15 02/01/21 08:14 Acetaminophen (Tylenol) 650 mg Q6H PRN ORAL Temp >100.5 01/02/21 08:15 02/01/21 08:14 Acetaminophen/ Hydrocodone Bitart ([place] 5/325) 1 tab Q6H PRN ORAL Severe Pain (Pain Scale 7-10) 01/02/21 08:15 01/09/21 08:14 Albuterol Sulfate (Proventil MDI) 2 puff Q6HRT INH 01/02/21 19:00 04/02/21 18:59 01/06/21 13:00 Azithromycin 500 mg/Dextrose 275 ml @ 275 mls/hr Q24HRS IV 01/03/21 01:00 01/09/21 01:59 01/06/21 00:56 Benztropine Mesylate (Cogentin) 1 mg BID ORAL 01/02/21 09:00 02/01/21 08:59 01/06/21 09:14 Ceftriaxone Sodium 1 gm/ Dextrose 55 ml @ 110 mls/hr Q24H IVPB 01/03/21 01:00 01/10/21 00:59 01/06/21 00:07 Dextrose (Dextrose 50%) 25 ml Q30M PRN IV Hypoglycemia 01/04/21 14:45 04/04/21 14:44 Dextrose (Dextrose 50%) 50 ml Q30M PRN IV Hypoglycemia 01/04/21 14:45 04/04/21 14:44 Divalproex Sodium (Depakote) 500 mg EVERY 12 HOURS ORAL 01/02/21 09:00 02/01/21 08:59 01/06/21 09:14 Insulin Aspart (NovoLOG) BEFORE MEALS AND HS SUBQ 01/04/21 16:30 04/04/21 16:29 01/06/21 16:30 Ipratropium [place] (Atrovent Inh) 1 puffs Q6HRT INH 01/02/21 19:00 02/01/21 18:59 01/06/21 13:00 Lorazepam (Ativan 2mg/ml 1ml) 1 mg Q6H PRN IV For Anxiety 01/06/21 16:30 01/13/21 20:59 Methylprednisolone Sodium Succinate (Solu-MEDROL) 40 mg EVERY 12 HOURS IVP 01/02/21 09:00 04/02/21 08:59 01/06/21 09:17 Ondansetron HCl (Zofran) 4 mg Q4H PRN IVP Nausea & Vomiting 01/02/21 08:15 02/01/21 08:14 Quetiapine Fumarate (SEROqueL) 200 mg DAILY ORAL 01/02/21 09:00 02/16/21 08:59 01/06/21 09:13 Risperidone (RisperDAL) 0.5 mg BID ORAL 01/02/21 09:00 02/16/21 08:59 01/06/21 09:14 Temazepam (RestoriL) 7.5 mg BEDTIME ORAL 01/02/21 21:00 01/09/21 20:59 01/05/21 20:59 Tramadol HCl (Ultram) 50 mg Q12H PRN ORAL Moderate Pain (Pain Scale 4-6) 01/02/21 08:00 01/09/21 07:59 Warfarin Sodium (Coumadin per pharmacy) 1 ea DAILY PRN MISC Per rx protocol 01/02/21 08:30 02/01/21 08:29 Zolpidem Tartrate (Ambien) 5 mg HSPRN PRN ORAL Insomnia 01/02/21 08:00 01/09/21 07:59 Assessment/Plan Assessment/Plan Pulmonary Progress Note HPI Patient is a 60 man with prior h/o COPD, CPS/bipolar DO, 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 On high FIO2/BiPAPPRN, ID following and started on CTx/Azithro + REM + SM 40 IV BID, CXR with bilateral infiltrates,ETT appropriate. Proning as tolerated Required intubation urgently as desaturated, sedated in ICU on Ventilator,s/p OGT/central line On pressors PRN Allergies: Coded Allergies: No Known Allergies (Unverified , 01/02/21) PMH: COPD, CPS/bipolar DO, prior DVT/PE on AC, NHR, DM2, HTN and hydrocephalus Physical Exam Deferred Covid19 Vital Signs noted Laboratory Tests noted Height (Feet): 5 Height (Inches): 5.00 Weight (Pounds): 233 Medications Medications noted Assessment/Plan Problem List: (1) Pneumonia due to COVID-19 virus ICD Codes: U07.1 - COVID-19; J12.82 - Pneumonia due to coronavirus disease 2019 SNOMED: 995848843767104363 (2) Acute hypercapnic respiratory failure ICD Codes: J96.02 - Acute respiratory failure with hypercapnia SNOMED: 930996388 (3) Respiratory failure with hypoxia ICD Codes: J96.91 - Respiratory failure, unspecified with hypoxia SNOMED: 07841715049946999 Qualifiers: Qualified Codes: J96.01 - Acute respiratory failure with hypoxia (4) COPD (chronic obstructive pulmonary disease) ICD Codes: J44.9 - Chronic obstructive pulmonary disease, unspecified SNOMED: 66774271 (5) History of deep venous thrombosis or pulmonary embolus SNOMED: 437379961 (6) Obesity ICD Codes: E66.9 - Obesity, unspecified SNOMED: 206801695, 758140324 (7) Essential hypertension ICD Codes: I10 - Essential (primary) hypertension SNOMED: 02558233 (8) Diabetes mellitus type 2 in obese ICD Codes: E11.69 - Type 2 diabetes mellitus with other specified complication; E66.9 - Obesity, unspecified SNOMED: 77178152 (9) History of hydrocephalus ICD Codes: Z86.69 - Personal history of other diseases of the nervous system and sense organs SNOMED: 966250659 (10) Schizophrenia ICD Codes: F20.9 - Schizophrenia, unspecified SNOMED: 92559714 (11) Bipolar 1 disorder ICD Codes: F31.9 - Bipolar disorder, unspecified SNOMED: 893109667 (12) Anticoagulant long-term use ICD Codes: Z79.01 - [facility] (current) use of anticoagulants SNOMED: 769054350 Assessment/Plan: ACVC Prone as tolerated Adjust FiO2 to keep SaO2 > 92% HFA's Nutriton consult F/U inflammatory markers and covid labs ID recs REM/SM 40 per ID Abx per ID F/U Cx's Monitor volumes and renal function DVT Px: Coumadin NPO Anuel Best MD Jan 06, 2021 17:58
--- NOTE | 2021-01-06 21:54 | Diagnostic Imaging Report ---
EXAM: XR Chest, 1 View CLINICAL HISTORY: S/P INTUB TECHNIQUE: Frontal view of the chest. COMPARISON: Chest radiograph dated 01/01/2021. FINDINGS: Lungs: Stable bilateral diffuse airspace patchy opacities. Pleural space: Unremarkable. No pneumothorax. Heart: Stable cardiac silhouette. Mediastinum: Unremarkable. Bones/joints: Unremarkable. Tubes, lines and devices: The endotracheal tube terminates 2.3 cm above the maria teresa. The enteric tube terminates outside the [id number]. Multiple overlying external tubes and lines. Upper abdomen: Stable elevation of the right hemidiaphragm. IMPRESSION: 1. Appropriately positioned endotracheal and enteric tubes. 2. Stable bilateral airspace disease.
[2021-01-06] MEDS ORDERED: propofoL 1,000mg/100ml 100 ML IV ONE (22:05)
--- NOTE | 2021-01-06 22:05 | Emergency Room Report ---
Physical Exam Vital Signs Date Time Temp Pulse Resp B/P (MAP) Pulse Ox O2 Delivery O2 Flow Rate FiO2 01/02/21 07:25 98 30 95 100 01/02/21 07:25 Bi-Pap 01/02/21 08:00 98.2 94/56 (69) 01/02/21 08:00 100.0 Medical Decision Making Diagnostic Impression: Primary Impression: Sepsis Qualified Codes: A41.9 - Sepsis, unspecified organism; R65.20 - Severe sepsis without septic shock; J96.01 - Acute respiratory failure with hypoxia Additional Impressions: Pneumonia due to COVID-19 virus Respiratory failure with hypoxia Qualified Codes: J96.01 - Acute respiratory failure with hypoxia ER Course Called to SDU to intubate patient for hypoxia. Admitted for Covid pneumonia with worsening ABG. Saturating in 70s on my arrival while still on BiPAP. Patient was intubated by me using direct visualization on first attempt without complication. Oxygenation improved. Chest x-ray shows endotracheal tube above the maria teresa with bilateral patchy airspace disease. Patient transferred to ICU. Chest X-Ray Diagnostic Results Chest X-Ray Diagnostic Results : Chest X-Ray Ordered: Yes # of Views/Limited/Complete: 1 View Indication: Other - Intubation EP Interpretation: Yes Interpretation: other - Bilateral airspace disease. Endotracheal tube tip projects above the maria teresa. Impression: Other - Satisfactory ET tube placement. Bilateral airspace disease Electronically Signed by: Electronically signed by Dr. Collins Ortiz MD Last Vital Signs Date Time Temp Pulse Resp B/P (MAP) Pulse Ox O2 Delivery O2 Flow Rate FiO2 01/06/21 19:40 90 Non-Rebreather 15.0 100 01/06/21 16:00 98.4 99 28 140/82 (101) Disposition: ADMITTED INPATIENT Condition: Critical Referrals: Geovanny Bradley MD (PCP) Procedures Intubation Intubation : Consent: Emergent Intubation Method: orotracheal Tube Size (cm): 7.5 Medications: Etomidate, Rocuronium Breath Sounds after Intubation: equal Intubation Complications: no complications Post Intubation Xray: Yes Progress/Xray Impression: ET tube above maria teresa Attempts: One Patient Tolerated: Well Complications: None Collins Ortiz MD Jan 06, 2021 22:05
[2021-01-06] MEDS ORDERED: D5 1/2NS 1,000 ML IV SCH (22:15)
[2021-01-06] MEDS: propofoL 1,000mg/100ml 100 ML IV SCH (22:15)
--- NOTE | 2021-01-06 22:22 | Diagnostic Imaging Report ---
EXAM: XR Abdomen, 2 Views CLINICAL HISTORY: NGT TECHNIQUE: Frontal view of the abdomen/pelvis with upright view of the abdomen. COMPARISON: No relevant prior studies available. FINDINGS: Intraperitoneal space: No free air. Gastrointestinal tract: Paucity of bowel gas overlying the mid abdomen. No dilation. Bones/joints: Unremarkable. Vasculature: IVC filter overlies the L2 and L3 vertebral body. Tubes, lines and devices: Enteric tube side port terminates below the level of the diaphragm suggesting appropriate gastric positioning. IMPRESSION: Enteric tube appears appropriately positioned.
[2021-01-06] MEDS: fentaNYL 2500mcg/NS 250ml 250 ML IV SCH (22:39)
[2021-01-07] VITALS (51 sets, daily range): BP systolic 79–110; BP diastolic 53–73
[2021-01-07] MEDS: D5 1/2NS 1,000 ML IV SCH ×2 (00:30→19:15)
[2021-01-07] MEDS: Albuterol 90mcg Inhaler 8gm INH SCH ×4 (01:24→19:49)
[2021-01-07] MEDS: Ipratropium Bromide Inhaler INH SCH ×4 (01:24→19:51)
--- NOTE | 2021-01-07 03:26 | Emergency Room Report ---
History of Present Illness General Chief Complaint: Dyspnea/Respdistress Source: Patient, Medical Record Present Illness HPI This patient was admitted to the hospital for Covid pneumonia and respiratory failure. Subsequently he had to be intubated for respiratory failure. I was asked to place a central line for pressors because his blood pressure was low. Unable to get any consent on patient and her family. Central line placed under emergent condition. Allergies: Coded Allergies: No Known Allergies (Unverified , 01/02/21) COVID-19 Screening Contact w/high risk pt: Yes Experienced COVID-19 symptoms?: Yes COVID-19 Testing performed SUPPORT SERVICES TECH: Yes COVID-19 Screening: Positive COVID-19 COVID-19 Testing Source: 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 Hx Hypertension: Yes Hx COPD: Yes Hx Diabetes: Yes History Of Psychiatric Problem: Yes - schizophrenia Hx Seizures: Yes Physical Exam Vital Signs Date Time Temp Pulse Resp B/P (MAP) Pulse Ox O2 Delivery O2 Flow Rate FiO2 01/03/21 07:36 97 24 93 100 01/03/21 08:00 Bi-pap 01/03/21 08:00 97.9 94/54 (67) 01/03/21 11:47 15.0 Procedures Central Line Central Line : Consent: Emergent Maximal Sterile Barrier Tech: yes cap, yes mask, yes sterile gown, yes sterile gloves, yes large sterile sheet, yes hand hygiene, yes chlorhexidine prep Central Line Postion: femoral (R) US Guided Line?: No Complications: none Central Line Post Position: sutured, good blood return Attempts: One Patient Tolerated: Well Complications: None Medical Decision Making Diagnostic Impression: Primary Impression: Sepsis Qualified Codes: A41.9 - Sepsis, unspecified organism; R65.20 - Severe sepsis without septic shock; J96.01 - Acute respiratory failure with hypoxia Additional Impressions: Pneumonia due to COVID-19 virus Respiratory failure with hypoxia Qualified Codes: J96.01 - Acute respiratory failure with hypoxia Last Vital Signs Date Time Temp Pulse Resp B/P (MAP) Pulse Ox O2 Delivery O2 Flow Rate FiO2 01/07/21 01:12 94 22 100 01/07/21 00:30 79/54 (62) 89 01/06/21 23:54 Mechanical Ventilator 01/06/21 19:40 15.0 01/06/21 16:00 98.4 Disposition: ADMITTED INPATIENT Condition: Critical Referrals: Geovanny Bradley MD (PCP) Zack Corrales MD Jan 07, 2021 03:25
[2021-01-07] MEDS: propofoL 1,000mg/100ml 100 ML IV SCH ×5 (03:30→19:58)
[2021-01-07] MEDS: Azithromycin 500 MG in D5W 275 ML IV SCH (03:30)
[2021-01-07] MEDS: cefTRIAXone 1 GM in D5W 55 ML IVPB SCH (03:30)
[2021-01-07] MEDS: Norepinephrine 4mg/NS Premix 250 ML IV SCH ×2 (03:45→19:16)
[2021-01-07] MEDS ORDERED: Levophed 4mg/4mL Inj IV ONE (04:08)
[2021-01-07 06:34] LABS: EOSINOPHILS % (AUTO) 0.1 % (0.0-3.0); HEMATOCRIT 46.1 % (42.0-52.0); HEMOGLOBIN 14.1 G/DL (14.2-18.0); MEAN CORPUSCULAR VOLUME 92 FL (80-99); MONOCYTES % (AUTO) 9.2 % (1.0-10.0); NEUTROPHILS % (AUTO) 70.6 % (45.0-75.0); PLATELET COUNT 301 K/UL (150-450); RED BLOOD COUNT 5.03 M/UL (4.70-6.10); RED CELL DISTRIBUTION WIDTH 14.6 % (11.6-14.8); WHITE BLOOD COUNT 7.9 K/UL (4.8-10.8)
[2021-01-07] MEDS: NovoLOG Insulin Flexpen SUBQ SCH ×4 (06:55→21:25)
[2021-01-07 07:00] LABS: ALANINE AMINOTRANSFERASE 23 U/L (12-78); ALBUMIN 2.1 G/DL (3.4-5.0); ALBUMIN/GLOBULIN RATIO 0.5 (1.0-2.7); ALKALINE PHOSPHATASE 82 U/L (46-116); ANION GAP 12 mmol/L (5-15); ASPARTATE AMINO TRANSFERASE 38 U/L (15-37); BILIRUBIN,TOTAL 0.5 MG/DL (0.2-1.0); BLOOD UREA NITROGEN 23 mg/dL (7-18); CALCIUM 8.2 MG/DL (8.5-10.1); CARBON DIOXIDE 24 MMOL/L (21-32); CHLORIDE 113 MMOL/L (98-107); POTASSIUM 3.9 MMOL/L (3.5-5.1); SODIUM 149 MMOL/L (136-145)
[2021-01-07] MEDS: fentaNYL 2500mcg/NS 250ml 250 ML IV SCH ×2 (08:08→16:00)
[2021-01-07] MEDS: QUEtiapine 200mg tab ORAL SCH (09:00)
[2021-01-07] MEDS ORDERED: Dyna-Hex 2% Top Sol 2oz TOPIC SCH (09:00)
[2021-01-07] MEDS: Benztropine 1mg tab ORAL SCH ×2 (09:00→17:55)
[2021-01-07] MEDS: Depakote 500mg tab ORAL SCH ×2 (09:00→21:27)
--- NOTE | 2021-01-07 09:07 | Infectious Diseases Prog Note ---
Assessment/Plan 60yo M with: COVID pna, severe Acute hypoxia 2/2 COVID pna >> intubated 2/7 Febrile to 103 Normal WBC Elevated AST 51 2/2 Tested positive for COVID at SNF 2/3 COVID PCR positive 2/3 BCx NTD CXR: Multifocal pna MRSA nares neg 2/7 Intubated in ICU CXR: 1. Appropriately positioned endotracheal and enteric tubes. 2. Stable bilateral airspace disease. 01/07 Resp cx ordered Cr 1.1 HIV screen neg PMH: DM2 COPD HTN SNF resident Plan: Cont CTX #6/7 given critical illness Stop azithro #5/5 Cont steroids #6/10, on methylpred 40 IV q12 Stop RDV #5/5 Sputum cx 01/07 SP azithro #5, RDV #5 This institution does not have access to convalescent plasma and only recommended to give in setting of clinical trial Monitor CBC/CMP Monitor temp curve, hemodynamics Monitor resp status D/w RN Thank you for this consult. [facility] will continue to follow. Subjective Allergies: Coded Allergies: No Known Allergies (Unverified , 01/02/21) AF Now intubated in ICU WBC 7.9 Was satting in 70s on vent Now proned, FiO2 100%, satting improved Levophed @4 Objective Last 24 Hour Vital Signs Date Time Temp Pulse Resp B/P (MAP) Pulse Ox O2 Delivery O2 Flow Rate FiO2 01/07/21 08:08 26 105/65 Mechanical Ventilator 100 01/07/21 08:00 100 01/07/21 07:51 95 30 98 Mechanical Ventilator 100 01/07/21 07:29 97 Mechanical Ventilator 100 01/07/21 07:29 94 22 96 Mechanical Ventilator 100 95 26 100 01/07/21 07:27 26 105/65 Mechanical Ventilator 100 01/07/21 06:00 26 100/61 Mechanical Ventilator 100 01/07/21 06:00 26 100/61 Mechanical Ventilator 100 01/07/21 05:00 26 95/57 Mechanical Ventilator 100 01/07/21 05:00 26 95/57 Mechanical Ventilator 100 01/07/21 05:00 113 26 92/57 (69) 82 01/07/21 04:45 116 24 100/73 (82) 70 01/07/21 04:30 105 26 99/58 (72) 88 01/07/21 04:15 105 29 104/61 (75) 82 01/07/21 04:00 100 01/07/21 04:00 26 95/57 Mechanical Ventilator 100 01/07/21 04:00 26 104/61 Mechanical Ventilator 100 01/07/21 04:00 Mechanical Ventilator 01/07/21 04:00 106 30 103/58 (73) 81 01/07/21 03:45 106 30 98/59 (72) 81 01/07/21 03:45 83/46 01/07/21 03:37 106 01/07/21 03:30 106 30 98/59 (72) 81 01/07/21 03:30 26 98/54 Mechanical Ventilator 100 01/07/21 03:15 105 30 98/54 (69) 84 01/07/21 03:00 104 26 99/59 (72) 87 01/07/21 03:00 26 104/61 Mechanical Ventilator 100 01/07/21 03:00 26 98/54 Mechanical Ventilator 100 01/07/21 02:45 104 25 102/59 (73) 90 01/07/21 02:30 106 27 98/62 (74) 81 01/07/21 02:15 106 25 108/58 (75) 78 01/07/21 02:00 26 98/54 Mechanical Ventilator 100 01/07/21 02:00 26 108/58 Mechanical Ventilator 100 01/07/21 02:00 104 26 94/60 (71) 78 01/07/21 01:45 107 26 94/63 (73) 77 01/07/21 01:30 98 22 83/54 (64) 91 01/07/21 01:15 94 22 81/54 (63) 91 01/07/21 01:12 94 22 100 01/07/21 01:00 97 22 80/53 (62) 90 01/07/21 01:00 22 81/54 Mechanical Ventilator 100 01/07/21 01:00 26 98/54 Mechanical Ventilator 100 01/07/21 00:45 100.1 101 22 83/55 (64) 91 01/07/21 00:30 101 22 79/54 (62) 89 01/07/21 00:15 105 22 81/55 (64) 87 01/07/21 00:12 106 22 85/55 (65) 87 01/07/21 00:00 111 22 90/55 (67) 85 01/07/21 00:00 Mechanical Ventilator 01/06/21 23:58 111 22 99/63 (75) 93 01/06/21 23:54 111 22 90 Mechanical Ventilator 100 01/06/21 23:45 110 26 122/83 (96) 96 01/06/21 23:30 112 25 87/52 (64) 93 01/06/21 23:21 113 01/06/21 23:15 108 26 112/77 (89) 90 01/06/21 23:00 24 112/77 Mechanical Ventilator 100 01/06/21 23:00 22 81/54 Mechanical Ventilator 100 01/06/21 23:00 116 22 104/64 (77) 92 01/06/21 22:45 118 22 112/77 (89) 93 01/06/21 22:39 22 130/75 Mechanical Ventilator 100 01/06/21 22:30 127 23 103/60 (74) 95 01/06/21 22:15 22 138/96 Mechanical Ventilator 100 01/06/21 22:15 116 22 113/63 (80) 94 01/06/21 22:00 120 60 65 01/06/21 22:00 111 16 130/75 (93) 89 01/06/21 21:30 Mechanical Ventilator 01/06/21 21:28 110 01/06/21 20:00 Bi-pap 01/06/21 19:40 90 Non-Rebreather 15.0 100 01/06/21 16:00 Non-Rebreather 15.0 01/06/21 16:00 98.4 99 28 140/82 (101) 90 01/06/21 16:00 80 01/06/21 12:00 Non-Rebreather 15.0 01/06/21 12:00 98.8 88 25 132/74 (93) 90 01/06/21 12:00 68 01/06/21 09:46 84 25 128/70 91 01/06/21 09:16 64 23 132/76 92 Height (Feet): 5 Height (Inches): 5.00 Weight (Pounds): 233 Gen: NAD HEENT: NCAT, ETT Pulm: BL chest rise, proned Ext: No c/c/e Skin: No visible rashes Neuro: Sedated Laboratory Tests Test 01/06/21 20:22 01/06/21 22:21 01/07/21 02:23 01/07/21 04:22 Arterial Blood pH 7.364 (7.350-7.450) 7.295 (7.350-7.450) 7.339 (7.350-7.450) Arterial Blood Partial Pressure CO2 39.2 mmHg (35.0-45.0) 49.6 mmHg (35.0-45.0) H 45.4 mmHg (35.0-45.0) H Arterial Blood Partial Pressure O2 44.0 mmHg (75.0-100.0) 56.8 mmHg (75.0-100.0) L 46.3 mmHg (75.0-100.0) Arterial Blood HCO3 21.8 mmol/L (22.0-26.0) L 23.6 mmol/L (22.0-26.0) 23.9 mmol/L (22.0-26.0) Arterial Blood Oxygen Saturation 82.0 % (95-100) *L 85.0 % (95-100) *L 78.5 % (95-100) *L Arterial Blood Base Excess -3.2 (-2-2) L -3.4 (-2-2) L -2.1 (-2-2) L Miguelito Test Positive Positive Positive White Blood Count 7.9 K/UL (4.8-10.8) Red Blood Count 5.03 M/UL (4.70-6.10) Hemoglobin 14.1 G/DL (14.2-18.0) L Hematocrit 46.1 % (42.0-52.0) Mean Corpuscular Volume 92 FL (80-99) Mean Corpuscular Hemoglobin 28.1 PG (27.0-31.0) Mean Corpuscular Hemoglobin Concent 30.7 G/DL (32.0-36.0) L Red Cell Distribution Width 14.6 % (11.6-14.8) Platelet Count 301 K/UL (150-450) Mean Platelet Volume 7.9 FL (6.5-10.1) Neutrophils (%) (Auto) 70.6 % (45.0-75.0) Lymphocytes (%) (Auto) 19.0 % (20.0-45.0) L Monocytes (%) (Auto) 9.2 % (1.0-10.0) Eosinophils (%) (Auto) 0.1 % (0.0-3.0) Basophils (%) (Auto) 1.0 % (0.0-2.0) Prothrombin Time 30.4 SEC (9.30-11.50) H Prothromb Time International Ratio 3.0 (0.9-1.1) H Sodium Level 149 MMOL/L (136-145) H Potassium Level 3.9 MMOL/L (3.5-5.1) Chloride Level 113 MMOL/L (98-107) H Carbon Dioxide Level 24 MMOL/L (21-32) Anion Gap 12 mmol/L (5-15) Blood Urea Nitrogen 23 mg/dL (7-18) H Creatinine 1.0 MG/DL (0.55-1.30) Estimat Glomerular Filtration Rate > 60 mL/min (>60) Glucose Level 213 MG/DL (74-106) #H Calcium Level 8.2 MG/DL (8.5-10.1) L Total Bilirubin 0.5 MG/DL (0.2-1.0) Aspartate Amino Transf (AST/SGOT) 38 U/L (15-37) H Alanine Aminotransferase (ALT/SGPT) 23 U/L (12-78) Alkaline Phosphatase 82 U/L (46-116) Total Protein 6.6 G/DL (6.4-8.2) Albumin 2.1 G/DL (3.4-5.0) L Globulin 4.5 g/dL Albumin/Globulin Ratio 0.5 (1.0-2.7) L Triglycerides Level 206 MG/DL (30-150) H Test 01/07/21 08:08 Arterial Blood pH 7.305 (7.350-7.450) Arterial Blood Partial Pressure CO2 44.7 mmHg (35.0-45.0) Arterial Blood Partial Pressure O2 96.1 mmHg (75.0-100.0) Arterial Blood HCO3 21.7 mmol/L (22.0-26.0) L Arterial Blood Oxygen Saturation 96.5 % (95-100) Arterial Blood Base Excess -4.6 (-2-2) L Miguelito Test Positive Current Medications Medications (Trade) Dose Ordered Sig/Johnny Route PRN Reason Start Time Stop Time Status Last Admin Dose Admin Acetaminophen (Tylenol) 650 mg Q6H PRN ORAL Mild Pain (Pain Scale 1-3) 01/02/21 08:15 02/01/21 08:14 Acetaminophen (Tylenol) 650 mg Q6H PRN ORAL Temp >100.5 01/02/21 08:15 02/01/21 08:14 Acetaminophen/ Hydrocodone Bitart ([place] 5/325) 1 tab Q6H PRN ORAL Severe Pain (Pain Scale 7-10) 01/02/21 08:15 01/09/21 08:14 Albuterol Sulfate (Proventil MDI) 2 puff Q6HRT INH 01/02/21 19:00 04/02/21 18:59 01/07/21 07:29 Azithromycin 500 mg/Dextrose 275 ml @ 275 mls/hr Q24HRS IV 01/03/21 01:00 01/09/21 01:59 01/07/21 03:30 Benztropine Mesylate (Cogentin) 1 mg BID ORAL 01/02/21 09:00 02/01/21 08:59 01/06/21 09:14 Ceftriaxone Sodium 1 gm/ Dextrose 55 ml @ 110 mls/hr Q24H IVPB 01/03/21 01:00 01/10/21 00:59 01/07/21 03:30 Chlorhexidine Gluconate (Myranda-Hex 2%) 1 applic DAILY@2000 TOPIC 01/07/21 20:00 04/07/21 19:59 Dextrose (Dextrose 50%) 25 ml Q30M PRN IV Hypoglycemia 01/06/21 23:45 04/06/21 23:44 Dextrose (Dextrose 50%) 50 ml Q30M PRN IV Hypoglycemia 01/06/21 23:45 04/06/21 23:44 Dextrose/Sodium Chloride 1,000 ml @ 50 mls/hr Q20H IV 01/07/21 00:30 02/06/21 00:29 01/07/21 00:30 Divalproex Sodium (Depakote) 500 mg EVERY 12 HOURS ORAL 01/02/21 09:00 02/01/21 08:59 01/06/21 22:22 Fentanyl Citrate 250 ml @ 1 mls/hr Q24H IV 01/06/21 23:00 01/08/21 22:59 01/07/21 08:08 Insulin Aspart (NovoLOG) BEFORE MEALS AND HS SUBQ 01/04/21 16:30 04/04/21 16:29 01/07/21 06:55 Ipratropium [place] (Atrovent Inh) 1 puffs Q6HRT INH 01/02/21 19:00 02/01/21 18:59 01/07/21 07:29 Lorazepam (Ativan 2mg/ml 1ml) 1 mg Q6H PRN IV For Anxiety 01/06/21 16:30 01/13/21 20:59 Methylprednisolone Sodium Succinate (Solu-MEDROL) 40 mg EVERY 12 HOURS IVP 01/02/21 09:00 04/02/21 08:59 01/06/21 20:30 Norepinephrine Bitartrate 250 ml @ 0 mls/hr Q24H IV 01/07/21 03:45 01/10/21 03:34 01/07/21 03:45 Ondansetron HCl (Zofran) 4 mg Q4H PRN IVP Nausea & Vomiting 01/02/21 08:15 02/01/21 08:14 Pantoprazole (Protonix) 40 mg DAILY IVP 01/07/21 09:00 02/06/21 08:59 Propofol 100 ml @ 0 mls/hr Q12H IV 01/06/21 22:00 01/08/21 21:59 01/07/21 07:27 Quetiapine Fumarate (SEROqueL) 200 mg DAILY ORAL 01/02/21 09:00 02/16/21 08:59 01/06/21 09:13 Risperidone (RisperDAL) 0.5 mg BID ORAL 01/02/21 09:00 02/16/21 08:59 01/06/21 09:14 Temazepam (RestoriL) 7.5 mg BEDTIME ORAL 01/02/21 21:00 01/09/21 20:59 01/06/21 22:22 Tramadol HCl (Ultram) 50 mg Q12H PRN ORAL Moderate Pain (Pain Scale 4-6) 01/02/21 08:00 01/09/21 07:59 Warfarin Sodium (Coumadin per pharmacy) 1 ea DAILY PRN MISC Per rx protocol 01/02/21 08:30 02/01/21 08:29 Zolpidem Tartrate (Ambien) 5 mg HSPRN PRN ORAL Insomnia 01/02/21 08:00 01/09/21 07:59 Renetta Gomez M.D. Jan 07, 2021 09:07
[2021-01-07] MEDS: Solu-MEDROL 40mg Inj IVP SCH ×2 (09:20→21:15)
[2021-01-07] MEDS: Pantoprazole Inj IVP SCH (09:20)
--- NOTE | 2021-01-07 15:00 | Pulmonology Progress Note ---
Subjective ROS Limited/Unobtainable: Yes Allergies: Coded Allergies: No Known Allergies (Unverified , 01/02/21) Objective Last 24 Hour Vital Signs Date Time Temp Pulse Resp B/P (MAP) Pulse Ox O2 Delivery O2 Flow Rate FiO2 01/07/21 12:00 99.4 88 26 104/65 (78) 98 01/07/21 12:00 100 01/07/21 11:38 26 103/62 Mechanical Ventilator 100 01/07/21 11:30 89 26 105/68 (80) 98 01/07/21 11:00 89 26 98/61 (73) 97 01/07/21 11:00 26 103/62 Mechanical Ventilator 100 01/07/21 11:00 26 103/62 Mechanical Ventilator 100 01/07/21 10:30 93 26 100 01/07/21 10:30 94 24 98/61 (73) 97 01/07/21 10:00 94 26 97/61 (73) 97 01/07/21 10:00 26 99/62 Mechanical Ventilator 100 01/07/21 10:00 26 99/62 Mechanical Ventilator 100 01/07/21 09:30 95 26 98/59 (72) 98 01/07/21 09:00 26 94/61 Mechanical Ventilator 100 01/07/21 09:00 26 94/61 Mechanical Ventilator 100 01/07/21 09:00 93 26 96/57 (70) 97 01/07/21 08:30 94 26 90/55 (67) 97 01/07/21 08:08 26 105/65 Mechanical Ventilator 100 01/07/21 08:00 Mechanical Ventilator 01/07/21 08:00 99.6 96 26 94/54 (67) 96 01/07/21 08:00 26 93/57 Mechanical Ventilator 100 01/07/21 08:00 26 93/57 Mechanical Ventilator 100 01/07/21 08:00 100 01/07/21 08:00 95 01/07/21 07:51 95 30 98 Mechanical Ventilator 100 01/07/21 07:30 95 26 104/65 (78) 97 01/07/21 07:29 97 Mechanical Ventilator 100 01/07/21 07:29 94 22 96 Mechanical Ventilator 100 95 26 100 01/07/21 07:27 26 105/65 Mechanical Ventilator 100 01/07/21 07:00 26 104/62 Mechanical Ventilator 100 01/07/21 07:00 26 104/62 Mechanical Ventilator 100 01/07/21 07:00 95 26 106/64 (78) 97 01/07/21 06:00 26 100/61 Mechanical Ventilator 100 01/07/21 06:00 26 100/61 Mechanical Ventilator 100 01/07/21 05:00 26 95/57 Mechanical Ventilator 100 01/07/21 05:00 26 95/57 Mechanical Ventilator 100 01/07/21 05:00 113 26 92/57 (69) 82 01/07/21 04:45 116 24 100/73 (82) 70 01/07/21 04:30 105 26 99/58 (72) 88 01/07/21 04:15 105 29 104/61 (75) 82 01/07/21 04:00 100 01/07/21 04:00 26 95/57 Mechanical Ventilator 100 01/07/21 04:00 26 104/61 Mechanical Ventilator 100 01/07/21 04:00 Mechanical Ventilator 01/07/21 04:00 106 30 103/58 (73) 81 01/07/21 03:45 106 30 98/59 (72) 81 01/07/21 03:45 83/46 01/07/21 03:37 106 01/07/21 03:30 106 30 98/59 (72) 81 01/07/21 03:30 26 98/54 Mechanical Ventilator 100 01/07/21 03:15 105 30 98/54 (69) 84 01/07/21 03:00 104 26 99/59 (72) 87 01/07/21 03:00 26 104/61 Mechanical Ventilator 100 01/07/21 03:00 26 98/54 Mechanical Ventilator 100 01/07/21 02:45 104 25 102/59 (73) 90 01/07/21 02:30 106 27 98/62 (74) 81 01/07/21 02:15 106 25 108/58 (75) 78 01/07/21 02:00 26 98/54 Mechanical Ventilator 100 01/07/21 02:00 26 108/58 Mechanical Ventilator 100 01/07/21 02:00 104 26 94/60 (71) 78 01/07/21 01:45 107 26 94/63 (73) 77 01/07/21 01:30 98 22 83/54 (64) 91 01/07/21 01:15 94 22 81/54 (63) 91 01/07/21 01:12 94 22 100 01/07/21 01:00 97 22 80/53 (62) 90 01/07/21 01:00 22 81/54 Mechanical Ventilator 100 01/07/21 01:00 26 98/54 Mechanical Ventilator 100 01/07/21 00:45 100.1 101 22 83/55 (64) 91 01/07/21 00:30 101 22 79/54 (62) 89 01/07/21 00:15 105 22 81/55 (64) 87 01/07/21 00:12 106 22 85/55 (65) 87 01/07/21 00:00 111 22 90/55 (67) 85 01/07/21 00:00 Mechanical Ventilator 01/06/21 23:58 111 22 99/63 (75) 93 01/06/21 23:54 111 22 90 Mechanical Ventilator 100 01/06/21 23:45 110 26 122/83 (96) 96 01/06/21 23:30 112 25 87/52 (64) 93 01/06/21 23:21 113 01/06/21 23:15 108 26 112/77 (89) 90 01/06/21 23:00 24 112/77 Mechanical Ventilator 100 01/06/21 23:00 22 81/54 Mechanical Ventilator 100 01/06/21 23:00 116 22 104/64 (77) 92 01/06/21 22:45 118 22 112/77 (89) 93 01/06/21 22:39 22 130/75 Mechanical Ventilator 100 01/06/21 22:30 127 23 103/60 (74) 95 01/06/21 22:15 22 138/96 Mechanical Ventilator 100 01/06/21 22:15 116 22 113/63 (80) 94 01/06/21 22:00 120 60 65 01/06/21 22:00 111 16 130/75 (93) 89 01/06/21 21:30 Mechanical Ventilator 01/06/21 21:28 110 01/06/21 20:00 Bi-pap 01/06/21 19:40 90 Non-Rebreather 15.0 100 01/06/21 16:00 Non-Rebreather 15.0 01/06/21 16:00 98.4 99 28 140/82 (101) 90 01/06/21 16:00 80 Intake and Output 2/7/21 2/8/21 19:00 07:00 Intake Total 240 ml 928.695 ml Output Total 800 ml 640 ml Balance -560 ml 288.695 ml Intake Oral 240 ml Free Water 50 ml IV Total 878.695 ml Output Urine Total 800 ml 640 ml # Voids 5 1 # Bowel Movements 3 5 Laboratory Tests 01/06/21 20:22: Arterial Blood pH 7.364, Arterial Blood Partial Pressure CO2 39.2, Arterial Blood Partial Pressure O2 44.0*L, Arterial Blood HCO3 21.8L, Arterial Blood Oxygen Saturation 82.0*L, Arterial Blood Base Excess -3.2L, Miguelito Test Positive 01/06/21 22:21: Arterial Blood pH 7.295L, Arterial Blood Partial Pressure CO2 49.6H, Arterial Blood Partial Pressure O2 56.8L, Arterial Blood HCO3 23.6, Arterial Blood Oxygen Saturation 85.0*L, Arterial Blood Base Excess -3.4L, Miguelito Test Positive 01/07/21 02:23: Arterial Blood pH 7.339L, Arterial Blood Partial Pressure CO2 45.4H, Arterial Blood Partial Pressure O2 46.3*L, Arterial Blood HCO3 23.9, Arterial Blood Oxygen Saturation 78.5*L, Arterial Blood Base Excess -2.1L, Miguelito Test Positive 01/07/21 04:22: White Blood Count 7.9, Red Blood Count 5.03, Hemoglobin 14.1L, Hematocrit 46.1, Mean Corpuscular Volume 92, Mean Corpuscular Hemoglobin 28.1, Mean Corpuscular Hemoglobin Concent 30.7L, Red Cell Distribution Width 14.6, Platelet Count 301, Mean Platelet Volume 7.9, Neutrophils (%) (Auto) 70.6, Lymphocytes (%) (Auto) 19.0L, Monocytes (%) (Auto) 9.2, Eosinophils (%) (Auto) 0.1, Basophils (%) (Auto) 1.0, Prothrombin Time 30.4H, Prothromb Time International Ratio 3.0H, Sodium Level 149H, Potassium Level 3.9, Chloride Level 113H, Carbon Dioxide Level 24, Anion Gap 12, Blood Urea Nitrogen 23H, Creatinine 1.0, Estimat Glomerular Filtration Rate > 60, Glucose Level 213#H, Calcium Level 8.2L, Total Bilirubin 0.5, Aspartate Amino Transf (AST/SGOT) 38H, Alanine Aminotransferase (ALT/SGPT) 23, Alkaline Phosphatase 82, Total Protein 6.6, Albumin 2.1L, Globulin 4.5, Albumin/Globulin Ratio 0.5L, Triglycerides Level 206H 01/07/21 08:08: Arterial Blood pH 7.305L, Arterial Blood Partial Pressure CO2 44.7, Arterial Blood Partial Pressure O2 96.1, Arterial Blood HCO3 21.7L, Arterial Blood Oxygen Saturation 96.5, Arterial Blood Base Excess -4.6L, Miguelito Test Positive Current Medications Medications (Trade) Dose Ordered Sig/Johnny Route PRN Reason Start Time Stop Time Status Last Admin Dose Admin Acetaminophen (Tylenol) 650 mg Q6H PRN ORAL Mild Pain (Pain Scale 1-3) 01/02/21 08:15 02/01/21 08:14 Acetaminophen (Tylenol) 650 mg Q6H PRN ORAL Temp >100.5 01/02/21 08:15 02/01/21 08:14 Acetaminophen/ Hydrocodone Bitart ([place] 5/325) 1 tab Q6H PRN ORAL Severe Pain (Pain Scale 7-10) 01/02/21 08:15 01/09/21 08:14 Albuterol Sulfate (Proventil MDI) 2 puff Q6HRT INH 01/02/21 19:00 04/02/21 18:59 01/07/21 07:29 Benztropine Mesylate (Cogentin) 1 mg BID ORAL 01/02/21 09:00 02/01/21 08:59 01/06/21 09:14 Ceftriaxone Sodium 1 gm/ Dextrose 55 ml @ 110 mls/hr Q24H IVPB 01/03/21 01:00 01/10/21 00:59 01/07/21 03:30 Chlorhexidine Gluconate (Myranda-Hex 2%) 1 applic DAILY@2000 TOPIC 01/07/21 20:00 04/07/21 19:59 Dextrose (Dextrose 50%) 25 ml Q30M PRN IV Hypoglycemia 01/06/21 23:45 04/06/21 23:44 Dextrose (Dextrose 50%) 50 ml Q30M PRN IV Hypoglycemia 01/06/21 23:45 04/06/21 23:44 Dextrose/Sodium Chloride 1,000 ml @ 50 mls/hr Q20H IV 01/07/21 00:30 02/06/21 00:29 01/07/21 00:30 Divalproex Sodium (Depakote) 500 mg EVERY 12 HOURS ORAL 01/02/21 09:00 02/01/21 08:59 01/06/21 22:22 Fentanyl Citrate 250 ml @ 1 mls/hr Q24H IV 01/06/21 23:00 01/08/21 22:59 01/07/21 08:08 Insulin Aspart (NovoLOG) BEFORE MEALS AND HS SUBQ 01/04/21 16:30 04/04/21 16:29 01/07/21 11:18 Ipratropium [place] (Atrovent Inh) 1 puffs Q6HRT INH 01/02/21 19:00 02/01/21 18:59 01/07/21 07:29 Lorazepam (Ativan 2mg/ml 1ml) 1 mg Q6H PRN IV For Anxiety 01/06/21 16:30 01/13/21 20:59 Methylprednisolone Sodium Succinate (Solu-MEDROL) 40 mg EVERY 12 HOURS IVP 01/02/21 09:00 04/02/21 08:59 01/07/21 09:20 Norepinephrine Bitartrate 250 ml @ 0 mls/hr Q24H IV 01/07/21 03:45 01/10/21 03:34 01/07/21 03:45 Ondansetron HCl (Zofran) 4 mg Q4H PRN IVP Nausea & Vomiting 01/02/21 08:15 02/01/21 08:14 Pantoprazole (Protonix) 40 mg DAILY IVP 01/07/21 09:00 02/06/21 08:59 01/07/21 09:20 Propofol 100 ml @ 0 mls/hr Q12H IV 01/06/21 22:00 01/08/21 21:59 01/07/21 11:38 Quetiapine Fumarate (SEROqueL) 200 mg DAILY ORAL 01/02/21 09:00 02/16/21 08:59 01/06/21 09:13 Risperidone (RisperDAL) 0.5 mg BID ORAL 01/02/21 09:00 02/16/21 08:59 01/06/21 09:14 Temazepam (RestoriL) 7.5 mg BEDTIME ORAL 01/02/21 21:00 01/09/21 20:59 01/06/21 22:22 Tramadol HCl (Ultram) 50 mg Q12H PRN ORAL Moderate Pain (Pain Scale 4-6) 01/02/21 08:00 01/09/21 07:59 Warfarin Sodium (Coumadin per pharmacy) 1 ea DAILY PRN MISC Per rx protocol 01/02/21 08:30 02/01/21 08:29 Zolpidem Tartrate (Ambien) 5 mg HSPRN PRN ORAL Insomnia 01/02/21 08:00 01/09/21 07:59 Assessment/Plan Assessment/Plan Pulmonary CCM Progress Note HPI Patient is a 60 man with prior h/o COPD, CPS/bipolar DO, 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 On high FIO2/BiPAPPRN, ID following and started on CTx/Azithro + REM + SM 40 IV BID, CXR with bilateral infiltrates,ETT appropriate. 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, NHR, DM2, HTN and hydrocephalus Physical Exam Deferred Covid19 Vital Signs noted Laboratory Tests noted Height (Feet): 5 Height (Inches): 5.00 Weight (Pounds): 233 Medications Medications noted Assessment/Plan Problem List: (1) Pneumonia due to COVID-19 virus ICD Codes: U07.1 - COVID-19; J12.82 - Pneumonia due to coronavirus disease 2019 SNOMED: 792457700479720359 (2) Acute hypercapnic respiratory failure ICD Codes: J96.02 - Acute respiratory failure with hypercapnia SNOMED: 316392326 (3) Respiratory failure with hypoxia ICD Codes: J96.91 - Respiratory failure, unspecified with hypoxia SNOMED: [id number] Qualifiers: Qualified Codes: J96.01 - Acute respiratory failure with hypoxia (4) COPD (chronic obstructive pulmonary disease) ICD Codes: J44.9 - Chronic obstructive pulmonary disease, unspecified SNOMED: 50406732 (5) History of deep venous thrombosis or pulmonary embolus SNOMED: 834349825 (6) Obesity ICD Codes: E66.9 - Obesity, unspecified SNOMED: 844210332, 010337572 (7) Essential hypertension ICD Codes: I10 - Essential (primary) hypertension SNOMED: 81882576 (8) Diabetes mellitus type 2 in obese ICD Codes: E11.69 - Type 2 diabetes mellitus with other specified complication; E66.9 - Obesity, unspecified SNOMED: 36713819 (9) History of hydrocephalus ICD Codes: Z86.69 - Personal history of other diseases of the nervous system and sense organs SNOMED: 463859489 (10) Schizophrenia ICD Codes: F20.9 - Schizophrenia, unspecified SNOMED: 97258620 (11) Bipolar 1 disorder ICD Codes: F31.9 - Bipolar disorder, unspecified SNOMED: 448020107 (12) Anticoagulant long-term use ICD 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
--- NOTE | 2021-01-07 19:25 | Internal Med Progress Note ---
Subjective Date of Service: Jan 07, 2021 Physician Name Vickey Brown Attending Physician Geovanny Bradley MD Current Medications Medications (Trade) Dose Ordered Sig/Johnny Route PRN Reason Start Time Stop Time Status Last Admin Dose Admin Acetaminophen (Tylenol) 650 mg Q6H PRN ORAL Mild Pain (Pain Scale 1-3) 01/02/21 08:15 02/01/21 08:14 Acetaminophen (Tylenol) 650 mg Q6H PRN ORAL Temp >100.5 01/02/21 08:15 02/01/21 08:14 Acetaminophen/ Hydrocodone Bitart ([place] 5/325) 1 tab Q6H PRN ORAL Severe Pain (Pain Scale 7-10) 01/02/21 08:15 01/09/21 08:14 Albuterol Sulfate (Proventil I) 2 puff Q6HRT INH 01/02/21 19:00 04/02/21 18:59 01/07/21 15:01 Benztropine Mesylate (Cogentin) 1 mg BID ORAL 01/02/21 09:00 02/01/21 08:59 01/07/21 17:55 Ceftriaxone Sodium 1 gm/ Dextrose 55 ml @ 110 mls/hr Q24H IVPB 01/03/21 01:00 01/10/21 00:59 01/07/21 03:30 Chlorhexidine Gluconate (Myranda-Hex 2%) 1 applic DAILY@2000 TOPIC 01/07/21 20:00 04/07/21 19:59 Dextrose (Dextrose 50%) 25 ml Q30M PRN IV Hypoglycemia 01/06/21 23:45 04/06/21 23:44 Dextrose (Dextrose 50%) 50 ml Q30M PRN IV Hypoglycemia 01/06/21 23:45 04/06/21 23:44 Dextrose/Sodium Chloride 1,000 ml @ 50 mls/hr Q20H IV 01/07/21 00:30 02/06/21 00:29 01/07/21 19:15 Divalproex Sodium (Depakote) 500 mg EVERY 12 HOURS ORAL 01/02/21 09:00 02/01/21 08:59 01/06/21 22:22 Fentanyl Citrate 250 ml @ 1 mls/hr Q24H IV 01/06/21 23:00 01/08/21 22:59 01/07/21 16:00 Insulin Aspart (NovoLOG) BEFORE MEALS AND HS SUBQ 01/04/21 16:30 04/04/21 16:29 01/07/21 16:29 Ipratropium [place] (Atrovent Inh) 1 puffs Q6HRT INH 01/02/21 19:00 02/01/21 18:59 01/07/21 15:01 Lorazepam (Ativan 2mg/ml 1ml) 1 mg Q6H PRN IV For Anxiety 01/06/21 16:30 01/13/21 20:59 Methylprednisolone Sodium Succinate (Solu-MEDROL) 40 mg EVERY 12 HOURS IVP 01/02/21 09:00 04/02/21 08:59 01/07/21 09:20 Norepinephrine Bitartrate 250 ml @ 0 mls/hr Q24H IV 01/07/21 03:45 01/10/21 03:34 01/07/21 19:16 Ondansetron HCl (Zofran) 4 mg Q4H PRN IVP Nausea & Vomiting 01/02/21 08:15 02/01/21 08:14 Pantoprazole (Protonix) 40 mg DAILY IVP 01/07/21 09:00 02/06/21 08:59 01/07/21 09:20 Propofol 100 ml @ 0 mls/hr Q12H IV 01/06/21 22:00 01/08/21 21:59 01/07/21 16:01 Quetiapine Fumarate (SEROqueL) 200 mg DAILY ORAL 01/02/21 09:00 02/16/21 08:59 01/06/21 09:13 Risperidone (RisperDAL) 0.5 mg BID ORAL 01/02/21 09:00 02/16/21 08:59 01/06/21 09:14 Temazepam (RestoriL) 7.5 mg BEDTIME ORAL 01/02/21 21:00 01/09/21 20:59 01/06/21 22:22 Tramadol HCl (Ultram) 50 mg Q12H PRN ORAL Moderate Pain (Pain Scale 4-6) 01/02/21 08:00 01/09/21 07:59 Warfarin Sodium (Coumadin per pharmacy) 1 ea DAILY PRN MISC Per rx protocol 01/02/21 08:30 02/01/21 08:29 Zolpidem Tartrate (Ambien) 5 mg HSPRN PRN ORAL Insomnia 01/02/21 08:00 01/09/21 07:59 Allergies: Coded Allergies: No Known Allergies (Unverified , 01/02/21) ROS Limited/Unobtainable: Yes Subjective 60 YO M admitted with shortness of breath. Now respiratory failure. Cover for Int Med-DR Bradley. Transferred to ICU 01/06/21 [facility]. Objective Last Vital Signs Date Time Temp Pulse Resp B/P (MAP) Pulse Ox O2 Delivery O2 Flow Rate FiO2 01/07/21 19:16 97/63 01/07/21 18:00 26 Mechanical Ventilator 100 01/07/21 16:30 81 98 01/07/21 16:00 99.3 01/06/21 19:40 15.0 Laboratory Tests Test 01/06/21 20:22 01/06/21 22:21 01/07/21 02:23 01/07/21 04:22 Arterial Blood pH 7.364 (7.350-7.450) 7.295 (7.350-7.450) 7.339 (7.350-7.450) Arterial Blood Partial Pressure CO2 39.2 mmHg (35.0-45.0) 49.6 mmHg (35.0-45.0) H 45.4 mmHg (35.0-45.0) H Arterial Blood Partial Pressure O2 44.0 mmHg (75.0-100.0) 56.8 mmHg (75.0-100.0) L 46.3 mmHg (75.0-100.0) Arterial Blood HCO3 21.8 mmol/L (22.0-26.0) L 23.6 mmol/L (22.0-26.0) 23.9 mmol/L (22.0-26.0) Arterial Blood Oxygen Saturation 82.0 % (95-100) *L 85.0 % (95-100) *L 78.5 % (95-100) *L Arterial Blood Base Excess -3.2 (-2-2) L -3.4 (-2-2) L -2.1 (-2-2) L Miguelito Test Positive Positive Positive White Blood Count 7.9 K/UL (4.8-10.8) Red Blood Count 5.03 M/UL (4.70-6.10) Hemoglobin 14.1 G/DL (14.2-18.0) L Hematocrit 46.1 % (42.0-52.0) Mean Corpuscular Volume 92 FL (80-99) Mean Corpuscular Hemoglobin 28.1 PG (27.0-31.0) Mean Corpuscular Hemoglobin Concent 30.7 G/DL (32.0-36.0) L Red Cell Distribution Width 14.6 % (11.6-14.8) Platelet Count 301 K/UL (150-450) Mean Platelet Volume 7.9 FL (6.5-10.1) Neutrophils (%) (Auto) 70.6 % (45.0-75.0) Lymphocytes (%) (Auto) 19.0 % (20.0-45.0) L Monocytes (%) (Auto) 9.2 % (1.0-10.0) Eosinophils (%) (Auto) 0.1 % (0.0-3.0) Basophils (%) (Auto) 1.0 % (0.0-2.0) Prothrombin Time 30.4 SEC (9.30-11.50) H Prothromb Time International Ratio 3.0 (0.9-1.1) H Sodium Level 149 MMOL/L (136-145) H Potassium Level 3.9 MMOL/L (3.5-5.1) Chloride Level 113 MMOL/L (98-107) H Carbon Dioxide Level 24 MMOL/L (21-32) Anion Gap 12 mmol/L (5-15) Blood Urea Nitrogen 23 mg/dL (7-18) H Creatinine 1.0 MG/DL (0.55-1.30) Estimat Glomerular Filtration Rate > 60 mL/min (>60) Glucose Level 213 MG/DL (74-106) #H Calcium Level 8.2 MG/DL (8.5-10.1) L Total Bilirubin 0.5 MG/DL (0.2-1.0) Aspartate Amino Transf (AST/SGOT) 38 U/L (15-37) H Alanine Aminotransferase (ALT/SGPT) 23 U/L (12-78) Alkaline Phosphatase 82 U/L (46-116) Total Protein 6.6 G/DL (6.4-8.2) Albumin 2.1 G/DL (3.4-5.0) L Globulin 4.5 g/dL Albumin/Globulin Ratio 0.5 (1.0-2.7) L Triglycerides Level 206 MG/DL (30-150) H Test 01/07/21 08:08 Arterial Blood pH 7.305 (7.350-7.450) Arterial Blood Partial Pressure CO2 44.7 mmHg (35.0-45.0) Arterial Blood Partial Pressure O2 96.1 mmHg (75.0-100.0) Arterial Blood HCO3 21.7 mmol/L (22.0-26.0) L Arterial Blood Oxygen Saturation 96.5 % (95-100) Arterial Blood Base Excess -4.6 (-2-2) L Miguelito Test Positive Intake and Output 01/06/21 01/07/21 19:00 07:00 Intake Total 240 ml 928.695 ml Output Total 800 ml 690 ml Balance -560 ml 238.695 ml Intake Oral 240 ml Free Water 50 ml IV Total 878.695 ml Output Urine Total 800 ml 690 ml # Voids 5 1 # Bowel Movements 3 5 Objective Objective General: awake, responsive , confused. HEENT: NCAT, sclera anicteric, PERRL, EOMI. Neck: Supple, no significant jugular venous distention, Lungs: mech vent; decreased air at the bases, occasional crackles, no Wheeze. Heart: Regular rate and rhythm, normal S1/S2, no murmurs Abdomen: soft, nontender, nondistended. Normoactive bowel sound, obesity. / Rectal: Refused and deferred. Extremities: Left LE: No Cyanosis , clubbing or edema. Right LE AKA. Neuro: A&O x 2, Able to move all extremities Skin: warm, no rashes or lesions. Assessment/Plan Assessment/Plan Assessment/Plan Assessment/Plan (1) Pneumonia due to COVID-19 virus ICD Codes: U07.1 - COVID-19; J12.82 - Pneumonia due to coronavirus disease 2019 SNOMED: 668792724966422212 (2) Acute hypercapnic respiratory failure ICD Codes: J96.02 - Acute respiratory failure with hypercapnia SNOMED: 154786501 (3) Respiratory failure with hypoxia ICD Codes: J96.91 - Respiratory failure, unspecified with hypoxia SNOMED: 00148720937113161 Qualifiers: Qualified Codes: J96.01 - Acute respiratory failure with hypoxia (4) COPD (chronic obstructive pulmonary disease) ICD Codes: J44.9 - Chronic obstructive pulmonary disease, unspecified SNOMED: 07886586 (5) History of deep venous thrombosis or pulmonary embolus SNOMED: 270861360 (6) Obesity ICD Codes: E66.9 - Obesity, unspecified SNOMED: 712165417, 449978206 (7) Essential hypertension ICD Codes: I10 - Essential (primary) hypertension SNOMED: 49242375 (8) Diabetes mellitus type 2 in obese ICD Codes: E11.69 - Type 2 diabetes mellitus with other specified complication; E66.9 - Obesity, unspecified SNOMED: 68287897 (9) History of hydrocephalus ICD Codes: Z86.69 - Personal history of other diseases of the nervous system and sense organs SNOMED: 092489668 (10) Schizophrenia ICD Codes: F20.9 - Schizophrenia, unspecified SNOMED: 41673679 (11) Bipolar 1 disorder ICD Codes: F31.9 - Bipolar disorder, unspecified SNOMED: 049454941 (12) Anticoagulant long-term use ICD Codes: Z79.01 - long-term (current) use of anticoagulants SNOMED: 892520477 Assessment/Plan: Optimize pulmonary hygiene/mobilize as tolerated On Non Rebreather mask>BIPAP>intubated On Remdesivir IV Solu-Medrol 40 mg IV twice a day. Abx =ceftriaxone F/U Cx's Monitor volumes and renal function DVT Px: Coumadin DC IV fluid Start diet Monitor blood glucose level closely. On levophed, fentanyl and propofol drips Vickey Brown MD Jan 07, 2021 19:25
[2021-01-07] MEDS: Dyna-Hex 2% Top Sol 2oz TOPIC SCH (19:56)
[2021-01-08] VITALS (48 sets, daily range): BP systolic 90–124; BP diastolic 54–86
[2021-01-08] MEDS: propofoL 1,000mg/100ml 100 ML IV SCH ×3 (00:16→08:20)
[2021-01-08] MEDS: fentaNYL 2500mcg/NS 250ml 250 ML IV SCH ×3 (00:49→19:20)
[2021-01-08] MEDS: cefTRIAXone 1 GM in D5W 55 ML IVPB SCH (00:52)
[2021-01-08] MEDS: D5 1/2NS 1,000 ML IV SCH (01:57)
[2021-01-08] MEDS: Ipratropium Bromide Inhaler INH SCH ×4 (02:08→19:00)
[2021-01-08] MEDS: Albuterol 90mcg Inhaler 8gm INH SCH ×4 (02:09→19:00)
[2021-01-08 05:31] LABS: BASOPHILS % (AUTO) 2.4 % (0.0-2.0); EOSINOPHILS % (AUTO) 0.1 % (0.0-3.0); HEMATOCRIT 45.8 % (42.0-52.0); HEMOGLOBIN 14.5 G/DL (14.2-18.0); MEAN CORPUSCULAR VOLUME 93 FL (80-99); MONOCYTES % (AUTO) 6.1 % (1.0-10.0); NEUTROPHILS % (AUTO) 83.5 % (45.0-75.0); PLATELET COUNT 242 K/UL (150-450); RED BLOOD COUNT 4.93 M/UL (4.70-6.10); RED CELL DISTRIBUTION WIDTH 15.9 % (11.6-14.8); WHITE BLOOD COUNT 9.9 K/UL (4.8-10.8)
[2021-01-08 05:51] LABS: ANION GAP 10 mmol/L (5-15); BLOOD UREA NITROGEN 18 mg/dL (7-18); CALCIUM 8.1 MG/DL (8.5-10.1); CARBON DIOXIDE 25 MMOL/L (21-32); CHLORIDE 109 MMOL/L (98-107); POTASSIUM 5.7 MMOL/L (3.5-5.1); SODIUM 144 MMOL/L (136-145); TRIGLYCERIDES 378 MG/DL (30-150)
[2021-01-08 05:52] LABS: INR 1.5 (0.9-1.1)
[2021-01-08] MEDS: NovoLOG Insulin Flexpen SUBQ SCH ×4 (06:22→21:15)
--- NOTE | 2021-01-08 06:51 | Pulmonology Progress Note ---
Subjective ROS Limited/Unobtainable: Yes Allergies: Coded Allergies: No Known Allergies (Unverified , 01/02/21) Objective Last 24 Hour Vital Signs Date Time Temp Pulse Resp B/P (MAP) Pulse Ox O2 Delivery O2 Flow Rate FiO2 01/08/21 05:30 79 26 102/61 (75) 96 01/08/21 05:00 80 26 106/60 (75) 95 01/08/21 04:30 87 26 106/63 (77) 93 01/08/21 04:16 26 117/61 Mechanical Ventilator 100 01/08/21 04:00 100 01/08/21 04:00 99.2 103 25 117/61 (79) 97 01/08/21 04:00 86 01/08/21 03:30 76 26 107/67 (80) 96 01/08/21 03:17 76 26 100 01/08/21 03:00 76 26 108/67 (81) 95 01/08/21 02:30 79 26 108/66 (80) 93 01/08/21 02:00 79 24 103/63 (76) 91 01/08/21 02:00 26 104/62 Mechanical Ventilator 100 01/08/21 02:00 26 104/62 Mechanical Ventilator 100 01/08/21 01:45 81 26 104/62 (76) 94 01/08/21 01:30 91 25 103/63 (76) 87 01/08/21 01:18 100 20 100/86 (91) 01/08/21 01:00 25 100/86 Mechanical Ventilator 100 01/08/21 01:00 26 100/86 Mechanical Ventilator 100 01/08/21 01:00 79 25 102/67 (79) 98 01/08/21 00:49 22 110/60 Mechanical Ventilator 100 01/08/21 00:30 95 26 109/62 (78) 97 01/08/21 00:16 23 113/60 Mechanical Ventilator 100 01/08/21 00:00 99.6 76 26 106/66 (79) 97 01/08/21 00:00 26 113/68 Mechanical Ventilator 100 01/08/21 00:00 25 113/68 Mechanical Ventilator 100 01/07/21 23:30 77 26 105/63 (77) 97 01/07/21 23:13 76 26 100 01/07/21 23:00 26 109/69 Mechanical Ventilator 100 01/07/21 23:00 21 100/86 Mechanical Ventilator 100 01/07/21 23:00 76 26 109/69 (82) 98 01/07/21 22:30 76 26 101/66 (78) 97 01/07/21 22:00 26 104/61 Mechanical Ventilator 100 01/07/21 22:00 25 100/63 Mechanical Ventilator 100 01/07/21 22:00 76 26 102/64 (77) 97 01/07/21 21:30 78 26 99/63 (75) 98 01/07/21 21:15 76 26 98/63 (75) 97 01/07/21 21:00 26 97/62 Mechanical Ventilator 100 01/07/21 21:00 76 26 101/63 (76) 98 01/07/21 20:30 99.0 77 26 96/62 (73) 98 01/07/21 20:00 100 01/07/21 20:00 26 100/62 Mechanical Ventilator 100 01/07/21 20:00 81 26 110/63 (79) 98 01/07/21 20:00 76 01/07/21 19:58 25 103/65 Mechanical Ventilator 100 01/07/21 19:51 76 26 100 01/07/21 19:51 97 Mechanical Ventilator 100 01/07/21 19:16 97/63 01/07/21 19:00 22 100/67 Mechanical Ventilator 100 01/07/21 18:00 26 94/62 Mechanical Ventilator 100 01/07/21 18:00 26 94/62 Mechanical Ventilator 100 01/07/21 17:00 26 108/63 Mechanical Ventilator 100 01/07/21 17:00 26 108/63 Mechanical Ventilator 100 01/07/21 16:30 81 26 102/63 (76) 98 01/07/21 16:01 26 100/63 Mechanical Ventilator 100 01/07/21 16:00 80 01/07/21 16:00 100 01/07/21 16:00 26 105/66 Mechanical Ventilator 100 01/07/21 16:00 99.3 81 26 99/64 (76) 98 01/07/21 15:30 81 26 101/60 (74) 97 01/07/21 15:01 80 26 100 01/07/21 15:00 81 26 97/62 (74) 96 01/07/21 15:00 26 96/63 Mechanical Ventilator 100 01/07/21 15:00 26 96/63 Mechanical Ventilator 100 01/07/21 14:30 80 26 102/65 (77) 98 01/07/21 14:00 26 103/64 Mechanical Ventilator 100 01/07/21 14:00 26 103/64 Mechanical Ventilator 100 01/07/21 14:00 86 26 106/69 (81) 98 01/07/21 13:30 84 26 103/65 (78) 98 01/07/21 13:00 89 26 103/62 (76) 98 01/07/21 13:00 26 100/62 Mechanical Ventilator 100 01/07/21 13:00 26 100/62 Mechanical Ventilator 100 01/07/21 12:30 90 26 109/68 (82) 98 01/07/21 12:00 87 01/07/21 12:00 99.4 88 26 104/65 (78) 98 01/07/21 12:00 26 103/66 Mechanical Ventilator 100 01/07/21 12:00 26 103/66 Mechanical Ventilator 100 01/07/21 12:00 100 01/07/21 11:38 26 103/62 Mechanical Ventilator 100 01/07/21 11:30 89 26 105/68 (80) 98 01/07/21 11:00 89 26 98/61 (73) 97 01/07/21 11:00 26 103/62 Mechanical Ventilator 100 01/07/21 11:00 26 103/62 Mechanical Ventilator 100 01/07/21 10:30 93 26 100 01/07/21 10:30 94 24 98/61 (73) 97 01/07/21 10:00 94 26 97/61 (73) 97 01/07/21 10:00 26 99/62 Mechanical Ventilator 100 01/07/21 10:00 26 99/62 Mechanical Ventilator 100 01/07/21 09:30 95 26 98/59 (72) 98 01/07/21 09:00 26 94/61 Mechanical Ventilator 100 01/07/21 09:00 26 94/61 Mechanical Ventilator 100 01/07/21 09:00 93 26 96/57 (70) 97 01/07/21 08:30 94 26 90/55 (67) 97 01/07/21 08:08 26 105/65 Mechanical Ventilator 100 01/07/21 08:00 Mechanical Ventilator 01/07/21 08:00 99.6 96 26 94/54 (67) 96 01/07/21 08:00 26 93/57 Mechanical Ventilator 100 01/07/21 08:00 26 93/57 Mechanical Ventilator 100 01/07/21 08:00 100 01/07/21 08:00 95 01/07/21 07:51 95 30 98 Mechanical Ventilator 100 01/07/21 07:30 95 26 104/65 (78) 97 01/07/21 07:29 97 Mechanical Ventilator 100 01/07/21 07:29 94 22 100 01/07/21 07:27 26 105/65 Mechanical Ventilator 100 01/07/21 07:00 26 104/62 Mechanical Ventilator 100 01/07/21 07:00 26 104/62 Mechanical Ventilator 100 01/07/21 07:00 95 26 106/64 (78) 97 Intake and Output 01/07/21 01/08/21 19:00 07:00 Intake Total 1327.530 ml 860.555 ml Output Total 610 ml 500 ml Balance 717.530 ml 360.555 ml Free Water 50 ml IV Total 1257.530 ml 780.555 ml Tube Feeding 20 ml 80 ml Output Urine Total 610 ml 500 ml Laboratory Tests 01/07/21 08:08: Arterial Blood pH 7.305L, Arterial Blood Partial Pressure CO2 44.7, Arterial Blood Partial Pressure O2 96.1, Arterial Blood HCO3 21.7L, Arterial Blood Oxygen Saturation 96.5, Arterial Blood Base Excess -4.6L, Miguelito Test Positive 01/08/21 04:50: White Blood Count 9.9, Red Blood Count 4.93, Hemoglobin 14.5, Hematocrit 45.8, Mean Corpuscular Volume 93, Mean Corpuscular Hemoglobin 29.4, Mean Corpuscular Hemoglobin Concent 31.6L, Red Cell Distribution Width 15.9H, Platelet Count 242, Mean Platelet Volume 7.9, Neutrophils (%) (Auto) 83.5H, Lymphocytes (%) (Auto) 8.0L, Monocytes (%) (Auto) 6.1, Eosinophils (%) (Auto) 0.1, Basophils (%) (Auto) 2.4H, Prothrombin Time 16.1H, Prothromb Time International Ratio 1.5H, Sodium Level 144, Potassium Level 5.7H, Chloride Level 109H, Carbon Dioxide Level 25, Anion Gap 10, Blood Urea Nitrogen 18, Creatinine 1.0, Estimat Glomerular Filtration Rate > 60, Glucose Level 325#H, Calcium Level 8.1L, Triglycerides Level 378H Current Medications Medications (Trade) Dose Ordered Sig/Johnny Route PRN Reason Start Time Stop Time Status Last Admin Dose Admin Acetaminophen (Tylenol) 650 mg Q6H PRN ORAL Mild Pain (Pain Scale 1-3) 01/02/21 08:15 02/01/21 08:14 Acetaminophen (Tylenol) 650 mg Q6H PRN ORAL Temp >100.5 01/02/21 08:15 02/01/21 08:14 Acetaminophen/ Hydrocodone Bitart ([place] 5/325) 1 tab Q6H PRN ORAL Severe Pain (Pain Scale 7-10) 01/02/21 08:15 01/09/21 08:14 Albuterol Sulfate (Proventil MDI) 2 puff Q6HRT INH 01/02/21 19:00 04/02/21 18:59 01/08/21 02:09 Benztropine Mesylate (Cogentin) 1 mg BID ORAL 01/02/21 09:00 02/01/21 08:59 01/07/21 17:55 Ceftriaxone Sodium 1 gm/ Dextrose 55 ml @ 110 mls/hr Q24H IVPB 01/03/21 01:00 01/10/21 00:59 01/08/21 00:52 Chlorhexidine Gluconate (Myranda-Hex 2%) 1 applic DAILY@2000 TOPIC 01/07/21 20:00 04/07/21 19:59 01/07/21 19:56 Dextrose (Dextrose 50%) 25 ml Q30M PRN IV Hypoglycemia 01/06/21 23:45 04/06/21 23:44 Dextrose (Dextrose 50%) 50 ml Q30M PRN IV Hypoglycemia 01/06/21 23:45 04/06/21 23:44 Dextrose/Sodium Chloride 1,000 ml @ 50 mls/hr Q20H IV 01/07/21 00:30 02/06/21 00:29 01/08/21 01:57 Divalproex Sodium (Depakote) 500 mg EVERY 12 HOURS ORAL 01/02/21 09:00 02/01/21 08:59 01/07/21 21:27 Fentanyl Citrate 250 ml @ 1 mls/hr Q24H IV 01/06/21 23:00 01/08/21 22:59 01/08/21 00:49 Insulin Aspart (NovoLOG) BEFORE MEALS AND HS SUBQ 01/04/21 16:30 04/04/21 16:29 01/08/21 06:22 Ipratropium [place] (Atrovent Inh) 1 puffs Q6HRT INH 01/02/21 19:00 02/01/21 18:59 01/08/21 02:08 Lorazepam (Ativan 2mg/ml 1ml) 1 mg Q6H PRN IV For Anxiety 01/06/21 16:30 01/13/21 20:59 Methylprednisolone Sodium Succinate (Solu-MEDROL) 40 mg EVERY 12 HOURS IVP 01/02/21 09:00 04/02/21 08:59 01/07/21 21:15 Norepinephrine Bitartrate 250 ml @ 0 mls/hr Q24H IV 01/07/21 03:45 01/10/21 03:34 01/07/21 19:16 Ondansetron HCl (Zofran) 4 mg Q4H PRN IVP Nausea & Vomiting 01/02/21 08:15 02/01/21 08:14 Pantoprazole (Protonix) 40 mg DAILY IVP 01/07/21 09:00 02/06/21 08:59 01/07/21 09:20 Propofol 100 ml @ 0 mls/hr Q12H IV 01/06/21 22:00 01/08/21 21:59 01/08/21 04:16 Quetiapine Fumarate (SEROqueL) 200 mg DAILY ORAL 01/02/21 09:00 02/16/21 08:59 01/06/21 09:13 Risperidone (RisperDAL) 0.5 mg BID ORAL 01/02/21 09:00 02/16/21 08:59 01/06/21 09:14 Temazepam (RestoriL) 7.5 mg BEDTIME ORAL 01/02/21 21:00 01/09/21 20:59 01/06/21 22:22 Tramadol HCl (Ultram) 50 mg Q12H PRN ORAL Moderate Pain (Pain Scale 4-6) 01/02/21 08:00 01/09/21 07:59 Warfarin Sodium (Coumadin per pharmacy) 1 ea DAILY PRN MISC Per rx protocol 01/02/21 08:30 02/01/21 08:29 Zolpidem Tartrate (Ambien) 5 mg HSPRN PRN ORAL Insomnia 01/02/21 08:00 01/09/21 07:59 Assessment/Plan Assessment/Plan Pulmonary CCM Progress Note HPI Patient is a 60 man with prior h/o COPD, CPS/bipolar DO, 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 On high FIO2/BiPAPPRN, ID following and started on CTx/Azithro + REM + SM 40 IV BID, CXR with bilateral infiltrates,ETT appropriate. 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, NHR, DM2, HTN and hydrocephalus Physical Exam Deferred Covid19 Vital Signs noted Laboratory Tests noted Height (Feet): 5 Height (Inches): 5.00 Weight (Pounds): 233 Medications Medications noted Assessment/Plan Problem List: (1) Pneumonia due to COVID-19 virus ICD Codes: U07.1 - COVID-19; J12.82 - Pneumonia due to coronavirus disease 2019 SNOMED: 252487831743545678 (2) Acute hypercapnic respiratory failure ICD Codes: J96.02 - Acute respiratory failure with hypercapnia SNOMED: 664056505 (3) Respiratory failure with hypoxia ICD Codes: J96.91 - Respiratory failure, unspecified with hypoxia SNOMED: 41407215221176351 Qualifiers: Qualified Codes: J96.01 - Acute respiratory failure with hypoxia (4) COPD (chronic obstructive pulmonary disease) ICD Codes: J44.9 - Chronic obstructive pulmonary disease, unspecified SNOMED: 80367431 (5) History of deep venous thrombosis or pulmonary embolus SNOMED: 913506011 (6) Obesity ICD Codes: E66.9 - Obesity, unspecified SNOMED: 061443229, 552799990 (7) Essential hypertension ICD Codes: I10 - Essential (primary) hypertension SNOMED: 70062418 (8) Diabetes mellitus type 2 in obese ICD Codes: E11.69 - Type 2 diabetes mellitus with other specified complication; E66.9 - Obesity, unspecified SNOMED: 39768576 (9) History of hydrocephalus ICD Codes: Z86.69 - Personal history of other diseases of the nervous system a nd sense organs SNOMED: 770399650 (10) Schizophrenia ICD Codes: F20.9 - Schizophrenia, unspecified SNOMED: 93350939 (11) Bipolar 1 disorder ICD Codes: F31.9 - Bipolar disorder, unspecified SNOMED: 725874790 (12) Anticoagulant long-term use ICD Codes: Z79.01 - long-term (current) use of anticoagulants SNOMED: 345896199 Assessment/Plan: ACVC - adjust Prone as tolerated Adjust FiO2 to keep SaO2 > 92% HFA's [place] consult Pressors PRN F/U inflammatory markers and covid labs ID recs REM/SM 40 per ID Abx per ID F/U Cx's Monitor volumes and renal function DVT Px: Coumadin NPO-on TF FC Seen earlier Anuel Luis MD Jan 08, 2021 06:51
--- NOTE | 2021-01-08 08:51 | Infectious Diseases Prog Note ---
Assessment/Plan 60yo M with: COVID pna, severe Acute hypoxia 2/2 COVID pna >> intubated /7 Febrile to 103 Normal WBC Elevated AST 51 2/2 Tested positive for COVID at SNF 2/3 COVID PCR positive 2/3 BCx NTD CXR: Multifocal pna MRSA nares neg / Intubated in ICU CXR: 1. Appropriately positioned endotracheal and enteric tubes. 2. Stable bilateral airspace disease. 01/07 Resp cx ordered Cr 1.1 HIV screen neg PMH: DM2 COPD HTN SNF resident Plan: Cont CTX #06/05 given critical illness Cont steroids #06/08, on methylpred 40 IV q12 Sputum cx 01/07 SP azithro #5, RDV #5 This institution does not have access to convalescent plasma and only recommended to give in setting of clinical trial Monitor CBC/CMP Monitor temp curve, hemodynamics Monitor resp status D/w RN Thank you for this consult. [facility] will continue to follow. Subjective Allergies: Coded Allergies: No Known Allergies (Unverified , 01/02/21) AF Sedated on vent FiO2 90% WBC 9.9 Proned Objective Last 24 Hour Vital Signs Date Time Temp Pulse Resp B/P (MAP) Pulse Ox O2 Delivery O2 Flow Rate FiO2 01/08/21 08:20 20 107/67 Mechanical Ventilator 100 01/08/21 07:00 22 106/63 Mechanical Ventilator 100 01/08/21 07:00 21 108/60 Mechanical Ventilator 100 01/08/21 06:00 24 105/62 Mechanical Ventilator 100 01/08/21 06:00 21 106/60 Mechanical Ventilator 100 01/08/21 05:30 79 26 102/61 (75) 96 01/08/21 05:00 26 105/66 Mechanical Ventilator 100 01/08/21 05:00 22 103/62 Mechanical Ventilator 100 01/08/21 05:00 80 26 106/60 (75) 95 01/08/21 04:30 87 26 106/63 (77) 93 01/08/21 04:16 26 117/61 Mechanical Ventilator 100 01/08/21 04:00 100 01/08/21 04:00 28 117/71 Mechanical Ventilator 100 01/08/21 04:00 21 117/71 Mechanical Ventilator 100 01/08/21 04:00 99.2 103 25 117/61 (79) 97 01/08/21 04:00 86 01/08/21 03:30 76 26 107/67 (80) 96 01/08/21 03:17 76 26 100 01/08/21 03:00 26 106/67 Mechanical Ventilator 100 01/08/21 03:00 26 106/67 Mechanical Ventilator 100 01/08/21 03:00 76 26 108/67 (81) 95 01/08/21 02:30 79 26 108/66 (80) 93 01/08/21 02:00 79 24 103/63 (76) 91 01/08/21 02:00 26 104/62 Mechanical Ventilator 100 01/08/21 02:00 26 104/62 Mechanical Ventilator 100 01/08/21 01:45 81 26 104/62 (76) 94 01/08/21 01:30 91 25 103/63 (76) 87 01/08/21 01:18 100 20 100/86 (91) 01/08/21 01:00 25 100/86 Mechanical Ventilator 100 01/08/21 01:00 26 100/86 Mechanical Ventilator 100 01/08/21 01:00 79 25 102/67 (79) 98 01/08/21 00:49 22 110/60 Mechanical Ventilator 100 01/08/21 00:30 95 26 109/62 (78) 97 01/08/21 00:16 23 113/60 Mechanical Ventilator 100 01/08/21 00:00 99.6 76 26 106/66 (79) 97 01/08/21 00:00 26 113/68 Mechanical Ventilator 100 01/08/21 00:00 25 113/68 Mechanical Ventilator 100 01/07/21 23:30 77 26 105/63 (77) 97 01/07/21 23:13 76 26 100 01/07/21 23:00 26 109/69 Mechanical Ventilator 100 01/07/21 23:00 21 100/86 Mechanical Ventilator 100 01/07/21 23:00 76 26 109/69 (82) 98 01/07/21 22:30 76 26 101/66 (78) 97 01/07/21 22:00 26 104/61 Mechanical Ventilator 100 01/07/21 22:00 25 100/63 Mechanical Ventilator 100 01/07/21 22:00 76 26 102/64 (77) 97 01/07/21 21:30 78 26 99/63 (75) 98 01/07/21 21:15 76 26 98/63 (75) 97 01/07/21 21:00 26 97/62 Mechanical Ventilator 100 01/07/21 21:00 21 105/60 Mechanical Ventilator 100 01/07/21 21:00 76 26 101/63 (76) 98 01/07/21 20:30 99.0 77 26 96/62 (73) 98 01/07/21 20:00 100 01/07/21 20:00 26 100/62 Mechanical Ventilator 100 01/07/21 20:00 21 100/62 Mechanical Ventilator 100 01/07/21 20:00 81 26 110/63 (79) 98 01/07/21 20:00 76 01/07/21 19:58 25 103/65 Mechanical Ventilator 100 01/07/21 19:51 76 26 100 01/07/21 19:51 97 Mechanical Ventilator 100 01/07/21 19:16 97/63 01/07/21 19:00 21 105/60 Mechanical Ventilator 100 01/07/21 19:00 22 100/67 Mechanical Ventilator 100 01/07/21 18:00 26 94/62 Mechanical Ventilator 100 01/07/21 18:00 26 94/62 Mechanical Ventilator 100 01/07/21 17:00 26 108/63 Mechanical Ventilator 100 01/07/21 17:00 26 108/63 Mechanical Ventilator 100 01/07/21 16:30 81 26 102/63 (76) 98 01/07/21 16:01 26 100/63 Mechanical Ventilator 100 01/07/21 16:00 80 01/07/21 16:00 100 01/07/21 16:00 26 105/66 Mechanical Ventilator 100 01/07/21 16:00 99.3 81 26 99/64 (76) 98 01/07/21 15:30 81 26 101/60 (74) 97 01/07/21 15:01 80 26 100 01/07/21 15:00 81 26 97/62 (74) 96 01/07/21 15:00 26 96/63 Mechanical Ventilator 100 01/07/21 15:00 26 96/63 Mechanical Ventilator 100 01/07/21 14:30 80 26 102/65 (77) 98 01/07/21 14:00 26 103/64 Mechanical Ventilator 100 01/07/21 14:00 26 103/64 Mechanical Ventilator 100 01/07/21 14:00 86 26 106/69 (81) 98 01/07/21 13:30 84 26 103/65 (78) 98 01/07/21 13:00 89 26 103/62 (76) 98 01/07/21 13:00 26 100/62 Mechanical Ventilator 100 01/07/21 13:00 26 100/62 Mechanical Ventilator 100 01/07/21 12:30 90 26 109/68 (82) 98 01/07/21 12:00 87 01/07/21 12:00 99.4 88 26 104/65 (78) 98 01/07/21 12:00 26 103/66 Mechanical Ventilator 100 01/07/21 12:00 26 103/66 Mechanical Ventilator 100 01/07/21 12:00 100 01/07/21 11:38 26 103/62 Mechanical Ventilator 100 01/07/21 11:30 89 26 105/68 (80) 98 01/07/21 11:00 89 26 98/61 (73) 97 01/07/21 11:00 26 103/62 Mechanical Ventilator 100 01/07/21 11:00 26 103/62 Mechanical Ventilator 100 01/07/21 10:30 93 26 100 01/07/21 10:30 94 24 98/61 (73) 97 01/07/21 10:00 94 26 97/61 (73) 97 01/07/21 10:00 26 99/62 Mechanical Ventilator 100 01/07/21 10:00 26 99/62 Mechanical Ventilator 100 01/07/21 09:30 95 26 98/59 (72) 98 01/07/21 09:00 26 94/61 Mechanical Ventilator 100 01/07/21 09:00 26 94/61 Mechanical Ventilator 100 01/07/21 09:00 93 26 96/57 (70) 97 Height (Feet): 5 Height (Inches): 5.00 Weight (Pounds): 233 Gen: NAD HEENT: NCAT, ETT Pulm: BL chest rise, proned Ext: No c/c/e Skin: No visible rashes Neuro: Sedated Laboratory Tests Test 01/08/21 04:50 White Blood Count 9.9 K/UL (4.8-10.8) Red Blood Count 4.93 M/UL (4.70-6.10) Hemoglobin 14.5 G/DL (14.2-18.0) Hematocrit 45.8 % (42.0-52.0) Mean Corpuscular Volume 93 FL (80-99) Mean Corpuscular Hemoglobin 29.4 PG (27.0-31.0) Mean Corpuscular Hemoglobin Concent 31.6 G/DL (32.0-36.0) L Red Cell Distribution Width 15.9 % (11.6-14.8) H Platelet Count 242 K/UL (150-450) Mean Platelet Volume 7.9 FL (6.5-10.1) Neutrophils (%) (Auto) 83.5 % (45.0-75.0) H Lymphocytes (%) (Auto) 8.0 % (20.0-45.0) L Monocytes (%) (Auto) 6.1 % (1.0-10.0) Eosinophils (%) (Auto) 0.1 % (0.0-3.0) Basophils (%) (Auto) 2.4 % (0.0-2.0) H Prothrombin Time 16.1 SEC (9.30-11.50) H Prothromb Time International Ratio 1.5 (0.9-1.1) H Sodium Level 144 MMOL/L (136-145) Potassium Level 5.7 MMOL/L (3.5-5.1) H Chloride Level 109 MMOL/L (98-107) H Carbon Dioxide Level 25 MMOL/L (21-32) Anion Gap 10 mmol/L (5-15) Blood Urea Nitrogen 18 mg/dL (7-18) Creatinine 1.0 MG/DL (0.55-1.30) Estimat Glomerular Filtration Rate > 60 mL/min (>60) Glucose Level 325 MG/DL (74-106) #H Calcium Level 8.1 MG/DL (8.5-10.1) L Triglycerides Level 378 MG/DL (30-150) H Current Medications Medications (Trade) Dose Ordered Sig/Johnny Route PRN Reason Start Time Stop Time Status Last Admin Dose Admin Acetaminophen (Tylenol) 650 mg Q6H PRN ORAL Mild Pain (Pain Scale 1-3) 01/02/21 08:15 02/01/21 08:14 Acetaminophen (Tylenol) 650 mg Q6H PRN ORAL Temp >100.5 01/02/21 08:15 02/01/21 08:14 Acetaminophen/ Hydrocodone Bitart ([place] 5/325) 1 tab Q6H PRN ORAL Severe Pain (Pain Scale 7-10) 01/02/21 08:15 01/09/21 08:14 Albuterol Sulfate (Proventil MDI) 2 puff Q6HRT INH 01/02/21 19:00 04/02/21 18:59 01/08/21 07:40 Benztropine Mesylate (Cogentin) 1 mg BID ORAL 01/02/21 09:00 02/01/21 08:59 01/07/21 17:55 Ceftriaxone Sodium 1 gm/ Dextrose 55 ml @ 110 mls/hr Q24H IVPB 01/03/21 01:00 01/10/21 00:59 01/08/21 00:52 Chlorhexidine Gluconate (Myranda-Hex 2%) 1 applic DAILY@2000 TOPIC 01/07/21 20:00 04/07/21 19:59 01/07/21 19:56 Dextrose (Dextrose 50%) 25 ml Q30M PRN IV Hypoglycemia 01/06/21 23:45 04/06/21 23:44 Dextrose (Dextrose 50%) 50 ml Q30M PRN IV Hypoglycemia 01/06/21 23:45 04/06/21 23:44 Dextrose/Sodium Chloride 1,000 ml @ 50 mls/hr Q20H IV 01/07/21 00:30 02/06/21 00:29 01/08/21 01:57 Divalproex Sodium (Depakote) 500 mg EVERY 12 HOURS ORAL 01/02/21 09:00 02/01/21 08:59 01/07/21 21:27 Fentanyl Citrate 250 ml @ 1 mls/hr Q24H IV 01/06/21 23:00 01/08/21 22:59 01/08/21 00:49 Insulin Aspart (NovoLOG) BEFORE MEALS AND HS SUBQ 01/04/21 16:30 04/04/21 16:29 01/08/21 06:22 Ipratropium [place] (Atrovent Inh) 1 puffs Q6HRT INH 01/02/21 19:00 02/01/21 18:59 01/08/21 07:40 Lorazepam (Ativan 2mg/ml 1ml) 1 mg Q6H PRN IV For Anxiety 01/06/21 16:30 01/13/21 20:59 Methylprednisolone Sodium Succinate (Solu-MEDROL) 40 mg EVERY 12 HOURS IVP 01/02/21 09:00 04/02/21 08:59 01/07/21 21:15 Norepinephrine Bitartrate 250 ml @ 0 mls/hr Q24H IV 01/07/21 03:45 01/10/21 03:34 01/07/21 19:16 Ondansetron HCl (Zofran) 4 mg Q4H PRN IVP Nausea & Vomiting 01/02/21 08:15 02/01/21 08:14 Pantoprazole (Protonix) 40 mg DAILY IVP 01/07/21 09:00 02/06/21 08:59 01/07/21 09:20 Propofol 100 ml @ 0 mls/hr Q12H IV 01/06/21 22:00 01/08/21 21:59 01/08/21 08:20 Quetiapine Fumarate (SEROqueL) 200 mg DAILY ORAL 01/02/21 09:00 02/16/21 08:59 01/06/21 09:13 Risperidone (RisperDAL) 0.5 mg BID ORAL 01/02/21 09:00 02/16/21 08:59 01/06/21 09:14 Temazepam (RestoriL) 7.5 mg BEDTIME ORAL 01/02/21 21:00 01/09/21 20:59 01/06/21 22:22 Tramadol HCl (Ultram) 50 mg Q12H PRN ORAL Moderate Pain (Pain Scale 4-6) 01/02/21 08:00 01/09/21 07:59 Warfarin Sodium (Coumadin per pharmacy) 1 ea DAILY PRN MISC Per rx protocol 01/02/21 08:30 02/01/21 08:29 Zolpidem Tartrate (Ambien) 5 mg HSPRN PRN ORAL Insomnia 01/02/21 08:00 01/09/21 07:59 Renetta Gomez M.D. Jan 08, 2021 08:51
[2021-01-08] MEDS: Pantoprazole Inj IVP SCH ×2 (09:51→21:14)
[2021-01-08] MEDS: Solu-MEDROL 40mg Inj IVP SCH ×2 (09:52→21:31)
[2021-01-08] MEDS: Benztropine 1mg tab ORAL SCH ×2 (09:52→17:35)
[2021-01-08] MEDS: Depakote 500mg tab ORAL SCH ×2 (09:52→21:14)
[2021-01-08] MEDS: QUEtiapine 200mg tab ORAL SCH (09:52)
--- NOTE | 2021-01-08 10:35 | Consultation ---
Consult Note Consult Note Asked to evaluate the patient at the request of Dr. 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 Pt has been febrile to 103.3 in house, HDS, now on BiPAP. WBC wnl at 6.4 CXR w/ BL pna PMH: DM2 COPD HTN SNF resident Allergies: Coded Allergies: No Known Allergies (Unverified , 01/02/21) PHYSICAL EXAMINATION: VITAL SIGNS: Temperature 103.3, respirations 37, pulse 128, blood pressure 105/74. GENERAL: The patient is a well-developed and well-nourished obese male, who is currently on BiPAP. HEENT: Eyes, pupils are equal and responsive to light and accommodation. Extraocular movements are intact. NECK: Supple without lymphadenopathy. CHEST: Decreased breath sounds at bilateral bases. Otherwise, without wheezes or rales. CARDIOVASCULAR: Regular rhythm and rate. S1, S2 are normal without murmurs, rubs, or gallops. ABDOMEN: Soft, nontender, and nondistended. Positive bowel sounds. No evidence of hepatosplenomegaly. Currently, no rebound or guarding noted. EXTREMITIES: Negative for clubbing, cyanosis, or edema. RECTAL/GENITAL: Not performed. NEUROLOGIC: Cranial nerves II through XII are grossly intact without focal deficits. Motor strength is 5/5 bilaterally. Deep tendon reflexes are 2+ plantar. DIAGNOSTIC DATA: A chest x-ray showed bilateral airspace consolidations consistent with bilateral pneumonia. LABORATORY STUDIES: WBC 6.4, hemoglobin 14.9, , and platelets 149,000. Sodium 137, potassium 5.3, chloride 100, CO2 29, BUN 14, creatinine 1.1. Glucose 211. Troponin 0.005. Lactate dehydrogenase elevated at 479. Total CK is 114. Troponin 0.005. Protime 30.9. INR 2.1. PTT 34. . Assessment/Plan Hyperkalemia Stable renal parameters Hyperglycemia Covid pneumonia due to COVID-19 virus Acute respiratory failure with hypoxia requiring mechanical ventilation History of COPD History of DVT, pulmonary emboli Obese Hypertension History of diabetes Psych condition, schizophrenia, bipolar disease Change IV to half-normal saline Kayexalate via NG tube for high potassium Monitor electrolytes and renal parameters Per orders, per consultants Avi Frye MD Jan 08, 2021 10:35
[2021-01-08] MEDS ORDERED: Sodium Polystyrene Sulfonate 15gm Powder NG SCH (11:00)
[2021-01-08] MEDS: Norepinephrine 4mg/NS Premix 250 ML IV SCH (13:26)
[2021-01-08] MEDS: Versed 50mg/NS 100ml 100 ML IV PRN ×2 (13:27→16:13)
[2021-01-08] MEDS ORDERED: Warfarin Sodium 2.5mg ORAL ONE (17:00)
--- NOTE | 2021-01-08 19:00 | Internal Med Progress Note ---
Subjective Date of Service: Jan 08, 2021 Physician Name Brown,Vickey Attending Physician Geovanny Bradley MD Current Medications Medications (Trade) Dose Ordered Sig/Johnny Route PRN Reason Start Time Stop Time Status Last Admin Dose Admin Acetaminophen (Tylenol) 650 mg Q6H PRN ORAL Mild Pain (Pain Scale 1-3) 01/02/21 08:15 02/01/21 08:14 Acetaminophen (Tylenol) 650 mg Q6H PRN ORAL Temp >100.5 01/02/21 08:15 02/01/21 08:14 Acetaminophen/ Hydrocodone Bitart ([place] 5/325) 1 tab Q6H PRN ORAL Severe Pain (Pain Scale 7-10) 01/02/21 08:15 01/09/21 08:14 Albuterol Sulfate (Proventil MDI) 2 puff Q6HRT INH 01/02/21 19:00 04/02/21 18:59 01/08/21 12:30 Benztropine Mesylate (Cogentin) 1 mg BID ORAL 01/02/21 09:00 02/01/21 08:59 01/08/21 17:35 Ceftriaxone Sodium 1 gm/ Dextrose 55 ml @ 110 mls/hr Q24H IVPB 01/03/21 01:00 01/10/21 00:59 01/08/21 00:52 Chlorhexidine Gluconate (Myranda-Hex 2%) 1 applic DAILY@2000 TOPIC 01/07/21 20:00 04/07/21 19:59 01/07/21 19:56 Dextrose (Dextrose 50%) 25 ml Q30M PRN IV Hypoglycemia 01/06/21 23:45 04/06/21 23:44 Dextrose (Dextrose 50%) 50 ml Q30M PRN IV Hypoglycemia 01/06/21 23:45 04/06/21 23:44 Divalproex Sodium (Depakote) 500 mg EVERY 12 HOURS ORAL 01/02/21 09:00 02/01/21 08:59 01/08/21 09:52 Fentanyl Citrate 250 ml @ 1 mls/hr Q24H IV 01/06/21 23:00 01/08/21 22:59 01/08/21 10:36 Insulin Aspart (NovoLOG) BEFORE MEALS AND HS SUBQ 01/04/21 16:30 04/04/21 16:29 01/08/21 17:30 Ipratropium [place] (Atrovent Inh) 1 puffs Q6HRT INH 01/02/21 19:00 02/01/21 18:59 01/08/21 12:30 Lorazepam (Ativan 2mg/ml 1ml) 1 mg Q6H PRN IV For Anxiety 01/06/21 16:30 01/13/21 20:59 Methylprednisolone Sodium Succinate (Solu-MEDROL) 40 mg EVERY 12 HOURS IVP 01/02/21 09:00 04/02/21 08:59 01/08/21 09:52 Midazolam HCl 100 ml @ 0 mls/hr Q24H PRN IV Agitation 01/08/21 13:00 01/10/21 12:59 01/08/21 16:13 Norepinephrine Bitartrate 250 ml @ 0 mls/hr Q24H IV 01/07/21 03:45 01/10/21 03:34 01/08/21 13:26 Ondansetron HCl (Zofran) 4 mg Q4H PRN IVP Nausea & Vomiting 01/02/21 08:15 02/01/21 08:14 Pantoprazole (Protonix) 40 mg Q12HR IVP 01/08/21 21:00 02/06/21 08:59 Quetiapine Fumarate (SEROqueL) 200 mg DAILY ORAL 01/02/21 09:00 02/16/21 08:59 01/06/21 09:13 Risperidone (RisperDAL) 0.5 mg BID ORAL 01/02/21 09:00 02/16/21 08:59 01/06/21 09:14 Sodium Chloride 1,000 ml @ 75 mls/hr [id number] IV 01/08/21 11:00 02/07/21 10:59 01/08/21 13:46 Temazepam (RestoriL) 7.5 mg BEDTIME ORAL 01/02/21 21:00 01/09/21 20:59 01/06/21 22:22 Tramadol HCl (Ultram) 50 mg Q12H PRN ORAL Moderate Pain (Pain Scale 4-6) 01/02/21 08:00 01/09/21 07:59 Warfarin Sodium (Coumadin per pharmacy) 1 ea DAILY PRN MISC Per rx protocol 01/02/21 08:30 02/01/21 08:29 Zolpidem Tartrate (Ambien) 5 mg HSPRN PRN ORAL Insomnia 01/02/21 08:00 01/09/21 07:59 Allergies: Coded Allergies: No Known Allergies (Unverified , 01/02/21) ROS Limited/Unobtainable: Yes Subjective 60 YO M admitted with shortness of breath. Now respiratory failure. Cover for Int Rohit-DR Bradley. Transferred to ICU 01/06/21 due to intubation and mech vent. Objective Last Vital Signs Date Time Temp Pulse Resp B/P (MAP) Pulse Ox O2 Delivery O2 Flow Rate FiO2 01/08/21 16:30 99.1 100 26 121/80 (94) 97 01/08/21 16:13 Mechanical Ventilator 100 01/06/21 19:40 15.0 Laboratory Tests Test 01/08/21 04:50 01/08/21 08:36 White Blood Count 9.9 K/UL (4.8-10.8) Red Blood Count 4.93 M/UL (4.70-6.10) Hemoglobin 14.5 G/DL (14.2-18.0) Hematocrit 45.8 % (42.0-52.0) Mean Corpuscular Volume 93 FL (80-99) Mean Corpuscular Hemoglobin 29.4 PG (27.0-31.0) Mean Corpuscular Hemoglobin Concent 31.6 G/DL (32.0-36.0) L Red Cell Distribution Width 15.9 % (11.6-14.8) H Platelet Count 242 K/UL (150-450) Mean Platelet Volume 7.9 FL (6.5-10.1) Neutrophils (%) (Auto) 83.5 % (45.0-75.0) H Lymphocytes (%) (Auto) 8.0 % (20.0-45.0) L Monocytes (%) (Auto) 6.1 % (1.0-10.0) Eosinophils (%) (Auto) 0.1 % (0.0-3.0) Basophils (%) (Auto) 2.4 % (0.0-2.0) H Prothrombin Time 16.1 SEC (9.30-11.50) H Prothromb Time International Ratio 1.5 (0.9-1.1) H Sodium Level 144 MMOL/L (136-145) Potassium Level 5.7 MMOL/L (3.5-5.1) H Chloride Level 109 MMOL/L (98-107) H Carbon Dioxide Level 25 MMOL/L (21-32) Anion Gap 10 mmol/L (5-15) Blood Urea Nitrogen 18 mg/dL (7-18) Creatinine 1.0 MG/DL (0.55-1.30) Estimat Glomerular Filtration Rate > 60 mL/min (>60) Glucose Level 325 MG/DL (74-106) #H Calcium Level 8.1 MG/DL (8.5-10.1) L Triglycerides Level 378 MG/DL (30-150) H Arterial Blood pH 7.313 (7.350-7.450) Arterial Blood Partial Pressure CO2 48.2 mmHg (35.0-45.0) H Arterial Blood Partial Pressure O2 108.3 mmHg (75.0-100.0) H Arterial Blood HCO3 23.9 mmol/L (22.0-26.0) Arterial Blood Oxygen Saturation 97.5 % (95-100) Arterial Blood Base Excess -2.7 (-2-2) L Miguelito Test Positive Intake and Output 01/07/21 01/08/21 19:00 07:00 Intake Total 1352.895 ml 1522.380 ml Output Total 610 ml 550 ml Balance 742.895 ml 972.380 ml Free Water 50 ml IV Total 1282.895 ml 1442.380 ml Tube Feeding 20 ml 80 ml Output Urine Total 610 ml 550 ml Objective Objective General: awake, responsive , confused. HEENT: NCAT, sclera anicteric, PERRL, EOMI. Neck: Supple, no significant jugular venous distention, Lungs: mech vent; decreased air at the bases, occasional crackles, no Wheeze. Heart: Regular rate and rhythm, normal S1/S2, no murmurs Abdomen: soft, nontender, nondistended. Normoactive bowel sound, obesity. / Rectal: Refused and deferred. Extremities: Left LE: No Cyanosis , clubbing or edema. Right LE AKA. Neuro: A&O x 2, Able to move all extremities Skin: warm, no rashes or lesions. Assessment/Plan Assessment/Plan Assessment/Plan Assessment/Plan (1) Pneumonia due to COVID-19 virus ICD Codes: U07.1 - COVID-19; J12.82 - Pneumonia due to coronavirus disease 2018 SNOMED: 715303057223145653 (2) Acute hypercapnic respiratory failure ICD Codes: J96.02 - Acute respiratory failure with hypercapnia SNOMED: 650016425 (3) Respiratory failure with hypoxia ICD Codes: J96.91 - Respiratory failure, unspecified with hypoxia SNOMED: 67720006203005810 Qualifiers: Qualified Codes: J96.01 - Acute respiratory failure with hypoxia (4) COPD (chronic obstructive pulmonary disease) ICD Codes: J44.9 - Chronic obstructive pulmonary disease, unspecified SNOMED: 21333380 (5) History of deep venous thrombosis or pulmonary embolus SNOMED: 483792671 (6) Obesity ICD Codes: E66.9 - Obesity, unspecified SNOMED: 518903402, 426352501 (7) Essential hypertension ICD Codes: I10 - Essential (primary) hypertension SNOMED: 86778848 (8) Diabetes mellitus type 2 in obese ICD Codes: E11.69 - Type 2 diabetes mellitus with other specified complication; E66.9 - Obesity, unspecified SNOMED: 28809545 (9) History of hydrocephalus ICD Codes: Z86.69 - Personal history of other diseases of the nervous system and sense organs SNOMED: 029506805 (10) Schizophrenia ICD Codes: F20.9 - Schizophrenia, unspecified SNOMED: 47073217 (11) Bipolar 1 disorder ICD Codes: F31.9 - Bipolar disorder, unspecified SNOMED: 055001186 (12) Anticoagulant long-term use ICD Codes: Z79.01 - intermediate card tender (current) use of anticoagulants SNOMED: 115436663 Assessment/Plan: Optimize pulmonary hygiene/mobilize as tolerated On Non Rebreather mask>BIPAP>intubated On Remdesivir IV Solu-Medrol 40 mg IV twice a day. Abx =ceftriaxone F/U Cx's Monitor volumes and renal function DVT Px: Coumadin DC IV fluid Start diet Monitor blood glucose level closely. On levophed, fentanyl and propofol drips Pulmonary=Dr Luis ID=Vickey Mtz MD Jan 08, 2021 19:00
[2021-01-08] MEDS: Dyna-Hex 2% Top Sol 2oz TOPIC SCH (19:51)
[2021-01-08] MEDS: Midazolam HCl 50mg/10ml vial 100 MG in NS 180 ML IV PRN (21:16)
[2021-01-09] VITALS (40 sets, daily range): BP systolic 93–140; BP diastolic 52–81
[2021-01-09] MEDS: cefTRIAXone 1 GM in D5W 55 ML IVPB SCH (01:13)
--- NOTE | 2021-01-09 01:29 | History and Physical Report ---
DATE OF ADMISSION: 01/02/2021 CHIEF COMPLAINT: The patient is a 60-year-old male, who presents with a chief complaint of shortness of breath. HISTORY OF PRESENT ILLNESS: The patient is a resident of [facility]. [facility], the patient began to experience shortness of breath a couple of days ago. The patient was tested for COVID on December 30, 2020. The report was reported as negative. The patient presented to [place] emergency room. The patient was found to have oxygen saturation in the 80s. The patient was placed . The patient is admitted to [facility] for shortness of breath to rule out COVID-19 pneumonia. REVIEW OF SYSTEMS: Unable to assess secondary to the patient's mental status. PAST MEDICAL HISTORY: Significant for, 1. Diabetes type 2. 2. Chronic obstructive pulmonary disease. 3. Atrial fibrillation. 4. Seizure disorder. 5. Chronic renal failure. 6. Paranoid schizophrenia. 7. History of bilateral lower extremity deep venous thrombosis. 8. History of pulmonary embolism. PAST SURGICAL HISTORY: Significant for right [id number] amputation. CURRENT MEDICATIONS: 1. Basaglar 10 units subcutaneously at bedtime. 2. Basaglar 22 units subcutaneously daily. 3. Benztropine 1 mg p.o. twice daily. 4. Coumadin per pharmacy protocol. 5. Depakote ER 500 mg 2 tablets p.o. daily. 6. Gabapentin 40 mg 1 tablet p.o. 3 times daily. 7. Regular insulin sliding scale. 8. Magnesium oxide 400 mg p.o. twice daily. 9. Multivitamin 1 tablet p.o. daily. 10. Potassium chloride 20 mEq p.o. daily. 11. Restoril 7.5 mg p.o. at bedtime. 12. Risperdal 0.5 mg p.o. twice daily. 13. Seroquel 200 mg p.o. daily. 14. Seroquel 300 mg p.o. at bedtime. 15. Tramadol 50 mg p.o. twice daily p.r.n. 16. Tylenol 650 mg p.o. q.6 h. p.r.n. 17. Vimpat 200 mg 1 tablet p.o. twice daily. 18. Vitamin C 1000 mg p.o. twice daily. 19. Vitamin D 2000 units p.o. daily. 20. Zinc sulfate 220 mg p.o. daily. ALLERGIES: No known drug allergies. SOCIAL HISTORY: The patient is single and is a resident of [facility]. The patient denies tobacco or alcohol use. PHYSICAL EXAMINATION: VITAL SIGNS: Temperature 103.3, respirations 37, pulse 128, blood pressure 105/74. GENERAL: The patient is a well-developed and well-nourished obese male, who is currently on BiPAP. HEENT: Eyes, pupils are equal and responsive to light and accommodation. Extraocular movements are intact. NECK: Supple without lymphadenopathy. CHEST: Decreased breath sounds at bilateral bases. Otherwise, without wheezes or rales. CARDIOVASCULAR: Regular rhythm and rate. S1, S2 are normal without murmurs, rubs, or gallops. ABDOMEN: Soft, nontender, and nondistended. Positive bowel sounds. No evidence of hepatosplenomegaly. Currently, no rebound or guarding noted. EXTREMITIES: Negative for clubbing, cyanosis, or edema. RECTAL/GENITAL: Not performed. NEUROLOGIC: Cranial nerves II through XII are grossly intact without focal deficits. Motor strength is 5/5 bilaterally. Deep tendon reflexes are 2+ plantar. DIAGNOSTIC DATA: A chest x-ray showed bilateral airspace consolidations consistent with bilateral pneumonia. LABORATORY STUDIES: WBC 6.4, hemoglobin 14.9, hematocrit , and platelets 149,000. Sodium 137, potassium 5.3, chloride 100, CO2 29, BUN 14, creatinine 1.1. Glucose 211. Troponin 0.005. Lactate dehydrogenase elevated at 479. Total CK is 114. Troponin 0.005. Protime 30.9. INR 2.1. PTT 34. ASSESSMENT: This is a 60-year-old male. 1. Shortness of breath. 2. Bilateral pneumonia. 3. Rule out COVID-19 infection. 4. Diabetes type 2. 5. Chronic obstructive pulmonary disease. 6. Atrial fibrillation. 7. Seizure disorder. 8. Chronic renal failure. 9. Paranoid schizophrenia. 10. History of bilateral lower extremity deep venous thrombosis. 11. History of pulmonary embolism. TREATMENT: 1. Shortness of breath/bilateral pneumonia. Pulmonary consultation has been obtained with Dr. Aparicio. The patient has been started empirically on azithromycin and ceftriaxone. The patient has been started on remdesivir and Solu-Medrol for COVID-19 prophylaxis. Follow recommendations of respiratory. The patient is currently on BiPAP. 2. Diabetes type 2. NovoLog sliding scale has been instituted. 3. Chronic obstructive pulmonary disease. A Pulmonary consultation has been obtained with Dr. Aparicio. Follow recommendations of Pulmonary. 4. Atrial fibrillation. 5. Seizure disorder. Continue Vimpat and Depakote as above. 6. Chronic renal failure. 7. Paranoid schizophrenia. Continue Seroquel and Risperdal as above. 8. History of bilateral lower extremity deep venous thrombosis and pulmonary embolism. Continue Coumadin per pharmacy protocol. Vickey Brown M.D. DR: KAROLINA JOB#: [id number] CC:
[2021-01-09] MEDS: Midazolam HCl 50mg/10ml vial 100 MG in NS 180 ML IV PRN ×3 (02:34→23:37)
[2021-01-09] MEDS: Albuterol 90mcg Inhaler 8gm INH SCH ×4 (03:46→18:29)
[2021-01-09] MEDS: Ipratropium Bromide Inhaler INH SCH ×4 (03:47→18:29)
[2021-01-09] MEDS: fentaNYL 2500mcg/NS 250ml 250 ML IV SCH ×4 (04:51→23:36)
[2021-01-09] MEDS: Norepinephrine 4mg/NS Premix 250 ML IV SCH (06:06)
[2021-01-09] MEDS: NovoLOG Insulin Flexpen SUBQ SCH ×3 (06:07→18:07)
--- NOTE | 2021-01-09 06:57 | Pulmonology Progress Note ---
Subjective ROS Limited/Unobtainable: Yes Allergies: Coded Allergies: No Known Allergies (Unverified , 01/02/21) Objective Last 24 Hour Vital Signs Date Time Temp Pulse Resp B/P (MAP) Pulse Ox O2 Delivery O2 Flow Rate FiO2 01/09/21 06:06 126/73 01/09/21 05:00 23 125/71 Mechanical Ventilator 100 01/09/21 05:00 23 Mechanical Ventilator 100 01/09/21 05:00 76 26 127/73 (91) 98 01/09/21 04:51 22 131/77 Mechanical Ventilator 100 01/09/21 04:30 88 26 100/57 (71) 97 01/09/21 04:00 98.8 83 26 121/69 (86) 97 01/09/21 04:00 100 01/09/21 04:00 82 01/09/21 04:00 25 100 01/09/21 04:00 26 118/69 Mechanical Ventilator 100 01/09/21 03:48 76 26 100 01/09/21 03:30 78 26 125/70 (88) 98 01/09/21 03:00 26 Mechanical Ventilator 100 01/09/21 03:00 26 128/74 Mechanical Ventilator 100 01/09/21 03:00 80 26 134/76 (95) 98 01/09/21 02:34 22 Mechanical Ventilator 100 01/09/21 02:34 20 100 01/09/21 02:30 76 26 128/76 (93) 98 01/09/21 02:00 21 Mechanical Ventilator 100 01/09/21 02:00 24 Mechanical Ventilator 100 01/09/21 02:00 25 126/74 Mechanical Ventilator 100 01/09/21 02:00 76 26 126/73 (90) 98 01/09/21 01:45 77 26 127/68 (87) 99 01/09/21 01:30 79 26 128/71 (90) 98 01/09/21 01:15 81 25 124/77 (93) 99 01/09/21 01:00 24 01/09/21 01:00 26 126/74 Mechanical Ventilator 100 01/09/21 01:00 81 25 124/77 (93) 99 01/09/21 00:58 83 20 126/75 (92) 01/09/21 00:30 75 26 119/74 (89) 99 01/09/21 00:00 100 01/09/21 00:00 26 Mechanical Ventilator 100 01/09/21 00:00 26 121/77 Mechanical Ventilator 100 01/09/21 00:00 99.0 78 26 121/77 (92) 99 01/09/21 00:00 76 01/08/21 23:30 81 23 101/67 (78) 100 01/08/21 23:20 76 26 80 01/08/21 23:00 77 26 120/75 (90) 99 01/08/21 23:00 26 Mechanical Ventilator 100 01/08/21 23:00 26 120/73 Mechanical Ventilator 100 01/08/21 23:00 26 120/73 Mechanical Ventilator 100 01/08/21 22:30 80 26 119/75 (90) 98 01/08/21 22:00 26 Mechanical Ventilator 100 01/08/21 22:00 26 120/73 Mechanical Ventilator 100 01/08/21 22:00 80 26 110/72 (85) 98 01/08/21 21:30 80 26 106/69 (81) 95 01/08/21 21:16 Mechanical Ventilator 100 01/08/21 21:00 81 25 113/74 (87) 94 01/08/21 21:00 26 109/72 Mechanical Ventilator 100 01/08/21 20:45 82 23 110/73 (85) 95 01/08/21 20:30 81 24 112/73 (86) 95 01/08/21 20:15 82 26 107/72 (84) 95 01/08/21 20:00 100 01/08/21 20:00 23 Mechanical Ventilator 100 01/08/21 20:00 23 112/73 Mechanical Ventilator 100 01/08/21 20:00 98.6 82 22 110/74 (86) 95 01/08/21 20:00 80 01/08/21 19:45 82 19 111/72 (85) 94 01/08/21 19:30 82 21 109/73 (85) 95 01/08/21 19:20 26 107/71 Mechanical Ventilator 100 01/08/21 19:10 83 29 80 01/08/21 19:00 82 14 107/70 (82) 95 01/08/21 19:00 26 Mechanical Ventilator 100 01/08/21 19:00 26 107/70 Mechanical Ventilator 100 01/08/21 18:00 26 Mechanical Ventilator 100 01/08/21 18:00 26 116/76 Mechanical Ventilator 100 01/08/21 18:00 90 6 113/71 (85) 95 01/08/21 17:00 26 Mechanical Ventilator 100 01/08/21 17:00 26 122/79 Mechanical Ventilator 100 01/08/21 17:00 102 26 121/78 (92) 95 01/08/21 16:30 99.1 100 26 121/80 (94) 97 01/08/21 16:13 25 Mechanical Ventilator 100 01/08/21 16:00 Mechanical Ventilator 01/08/21 16:00 97 01/08/21 16:00 22 Mechanical Ventilator 100 01/08/21 16:00 26 124/79 Mechanical Ventilator 100 01/08/21 16:00 99 26 124/79 (94) 97 01/08/21 16:00 100 01/08/21 15:45 24 Mechanical Ventilator 100 01/08/21 15:32 99 26 80 01/08/21 15:30 98 26 116/81 (93) 96 01/08/21 15:30 28 Mechanical Ventilator 100 01/08/21 15:15 25 Mechanical Ventilator 100 01/08/21 15:00 26 Mechanical Ventilator 100 01/08/21 15:00 26 113/81 Mechanical Ventilator 100 01/08/21 15:00 99 26 113/81 (92) 93 01/08/21 14:45 26 Mechanical Ventilator 100 01/08/21 14:30 25 Mechanical Ventilator 100 01/08/21 14:30 100 01/08/21 14:30 100 26 114/77 (89) 90 01/08/21 14:15 26 Mechanical Ventilator 100 01/08/21 14:00 22 Mechanical Ventilator 100 01/08/21 14:00 27 110/74 Mechanical Ventilator 100 01/08/21 14:00 105 26 110/74 (86) 88 01/08/21 13:45 25 Mechanical Ventilator 100 01/08/21 13:30 28 Mechanical Ventilator 100 01/08/21 13:30 128 26 90/65 (73) 89 01/08/21 13:27 33 Mechanical Ventilator 100 01/08/21 13:27 28 Mechanical Ventilator 80 01/08/21 13:26 101/60 01/08/21 13:00 26 101/69 Mechanical Ventilator 80 01/08/21 13:00 99 26 101/60 (74) 95 01/08/21 12:30 95 26 91/54 (66) 95 01/08/21 12:00 80 01/08/21 12:00 25 109/67 Mechanical Ventilator 80 01/08/21 12:00 26 109/62 Mechanical Ventilator 80 01/08/21 12:00 99.1 78 26 109/62 (78) 96 01/08/21 12:00 Mechanical Ventilator 01/08/21 12:00 78 01/08/21 11:53 100 01/08/21 11:30 79 26 110/66 (81) 96 01/08/21 11:30 77 26 99 Mechanical Ventilator 80 116 22 90 01/08/21 11:00 78 26 106/63 (77) 96 01/08/21 11:00 26 106/63 Mechanical Ventilator 80 01/08/21 11:00 26 106/63 Mechanical Ventilator 80 01/08/21 10:36 26 106/58 Mechanical Ventilator 90 01/08/21 10:30 80 26 103/66 (78) 96 01/08/21 10:00 26 103/66 Mechanical Ventilator 80 01/08/21 10:00 26 103/66 Mechanical Ventilator 80 01/08/21 10:00 80 26 105/64 (78) 96 01/08/21 09:00 26 102/60 Mechanical Ventilator 80 01/08/21 09:00 26 102/60 Mechanical Ventilator 80 01/08/21 09:00 80 26 103/62 (76) 96 01/08/21 08:45 90 01/08/21 08:30 90 01/08/21 08:30 83 26 102/59 (73) 96 01/08/21 08:20 20 107/67 Mechanical Ventilator 100 01/08/21 08:00 85 26 101/62 (75) 96 01/08/21 08:00 100 01/08/21 08:00 98.9 01/08/21 08:00 22 103/57 Mechanical Ventilator 80 01/08/21 08:00 78 01/08/21 08:00 Mechanical Ventilator 01/08/21 07:40 83 26 100 01/08/21 07:30 81 26 107/67 (80) 97 01/08/21 07:00 22 106/63 Mechanical Ventilator 100 01/08/21 07:00 21 108/60 Mechanical Ventilator 100 01/08/21 07:00 81 26 103/62 (76) 96 Intake and Output 01/08/21 01/09/21 19:00 07:00 Intake Total 1403.100 ml 1345 ml Output Total 560 ml 590 ml Balance 843.100 ml 755 ml Free Water 20 ml IV Total 1363.100 ml 1265 ml Tube Feeding 20 ml 80 ml Output Urine Total 560 ml 590 ml Laboratory Tests 01/08/21 08:36: Arterial Blood pH 7.313L, Arterial Blood Partial Pressure CO2 48.2H, Arterial Blood Partial Pressure O2 108.3H, Arterial Blood HCO3 23.9, Arterial Blood Oxygen Saturation 97.5, Arterial Blood Base Excess -2.7L, Miguelito Test Positive 01/09/21 05:40: White Blood Count [Pending], Red Blood Count [Pending], Hemoglobin [Pending], Hematocrit [Pending], Mean Corpuscular Volume [Pending], Mean Corpuscular Hemoglobin [Pending], Mean Corpuscular Hemoglobin Concent [Pending], Red Cell Distribution Width [Pending], Platelet Count [Pending], Mean Platelet Volume [Pending], Neutrophils (%) (Auto) [Pending], Lymphocytes (%) (Auto) [Pending], Monocytes (%) (Auto) [Pending], Eosinophils (%) (Auto) [Pending], Basophils (%) (Auto) [Pending], Prothrombin Time [Pending], Prothromb Time International Ratio [Pending], Sodium Level [Pending], Potassium Level [Pending], Chloride Level [Pending], Carbon Dioxide Level [Pending], Blood Urea Nitrogen [Pending], Creatinine [Pending], Estimat Glomerular Filtration Rate [Pending], Glucose Level [Pending], Uric Acid [Pending], Calcium Level [Pending], Phosphorus Level [Pending], Magnesium Level [Pending], Total Bilirubin [Pending], Gamma Glutamyl Transpeptidase [Pending], Aspartate Amino Transf (AST/SGOT) [Pending], Alanine Aminotransferase (ALT/SGPT) [Pending], Alkaline Phosphatase [Pending], Lactate Dehydrogenase [Pending], Troponin I [Pending], C-Reactive Protein, Quantitative [Pending], Pro-B-Type Natriuretic Peptide [Pending], Total Protein [Pending], Albumin [Pending], Globulin [Pending], Triglycerides Level [Pending], Cholesterol Level [Pending], LDL Cholesterol [Pending], HDL Cholesterol [Pending], Cholesterol/HDL Ratio [Pending], Vitamin B12 Level [Pending], Vitamin D 25-Hydroxy [Pending], 25-Hydroxy Vitamin D2 [Pending], 25-Hydroxy Vitamin D3 [Pending], Folate [Pending], Thyroid Stimulating Hormone (TSH) [Pending] Current Medications Medications (Trade) Dose Ordered Sig/Johnny Route PRN Reason Start Time Stop Time Status Last Admin Dose Admin Acetaminophen (Tylenol) 650 mg Q6H PRN ORAL Mild Pain (Pain Scale 1-3) 01/02/21 08:15 02/01/21 08:14 Acetaminophen (Tylenol) 650 mg Q6H PRN ORAL Temp >100.5 01/02/21 08:15 02/01/21 08:14 Acetaminophen/ Hydrocodone Bitart ([place] 5/325) 1 tab Q6H PRN ORAL Severe Pain (Pain Scale 7-10) 01/02/21 08:15 01/09/21 08:14 Albuterol Sulfate (Proventil MDI) 2 puff Q6HRT INH 01/02/21 19:00 04/02/21 18:59 01/09/21 03:46 Benztropine Mesylate (Cogentin) 1 mg BID ORAL 01/02/21 09:00 02/01/21 08:59 01/08/21 17:35 Ceftriaxone Sodium 1 gm/ Dextrose 55 ml @ 110 mls/hr Q24H IVPB 01/03/21 01:00 01/10/21 00:59 01/09/21 01:13 Chlorhexidine Gluconate (Myranda-Hex 2%) 1 applic DAILY@2000 TOPIC 01/07/21 20:00 04/07/21 19:59 01/08/21 19:51 Dextrose (Dextrose 50%) 25 ml Q30M PRN IV Hypoglycemia 01/06/21 23:45 04/06/21 23:44 Dextrose (Dextrose 50%) 50 ml Q30M PRN IV Hypoglycemia 01/06/21 23:45 04/06/21 23:44 Divalproex Sodium (Depakote) 500 mg EVERY 12 HOURS ORAL 01/02/21 09:00 02/01/21 08:59 2/9/21 21:14 Fentanyl Citrate 250 ml @ 1 mls/hr Q24H IV 01/09/21 04:30 01/11/21 04:29 01/09/21 04:51 Insulin Aspart (NovoLOG) BEFORE MEALS AND HS SUBQ 01/04/21 16:30 04/04/21 16:29 01/09/21 06:07 Ipratropium [place] (Atrovent Inh) 1 puffs Q6HRT INH 01/02/21 19:00 02/01/21 18:59 01/09/21 03:47 Lorazepam (Ativan 2mg/ml 1ml) 1 mg Q6H PRN IV For Anxiety 01/06/21 16:30 01/13/21 20:59 Methylprednisolone Sodium Succinate (Solu-MEDROL) 40 mg EVERY 12 HOURS IVP 01/02/21 09:00 04/02/21 08:59 01/08/21 21:31 Midazolam HCl 100 mg/Sodium Chloride 200 ml @ 0 mls/hr Q24H PRN IV Agitation 01/08/21 21:00 01/10/21 20:59 01/09/21 02:34 Norepinephrine Bitartrate 250 ml @ 0 mls/hr Q24H IV 01/07/21 03:45 01/10/21 03:34 01/09/21 06:06 Ondansetron HCl (Zofran) 4 mg Q4H PRN IVP Nausea & Vomiting 01/02/21 08:15 02/01/21 08:14 Pantoprazole (Protonix) 40 mg Q12HR IVP 01/08/21 21:00 02/06/21 08:59 01/08/21 21:14 Quetiapine Fumarate (SEROqueL) 200 mg DAILY ORAL 01/02/21 09:00 02/16/21 08:59 01/06/21 09:13 Risperidone (RisperDAL) 0.5 mg BID ORAL 01/02/21 09:00 02/16/21 08:59 01/06/21 09:14 Sodium Chloride 1,000 ml @ 75 mls/hr [id number] IV 01/08/21 11:00 02/07/21 10:59 01/09/21 06:09 Temazepam (RestoriL) 7.5 mg BEDTIME ORAL 01/02/21 21:00 01/09/21 20:59 01/06/21 22:22 Tramadol HCl (Ultram) 50 mg Q12H PRN ORAL Moderate Pain (Pain Scale 4-6) 01/02/21 08:00 01/09/21 07:59 Warfarin Sodium (Coumadin per pharmacy) 1 ea DAILY PRN MISC Per rx protocol 01/02/21 08:30 02/01/21 08:29 Zolpidem Tartrate (Ambien) 5 mg HSPRN PRN ORAL Insomnia 01/02/21 08:00 01/09/21 07:59 Assessment/Plan Assessment/Plan Pulmonary CCM Progress Note HPI Patient is a 60 man with prior h/o COPD, CPS/bipolar DO, 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 ID following and started on CTx/Azithro + REM + SM 40 IV BID, CXR with bilateral infiltrates,ETT appropriate. Proning as tolerated, ABG noted Sedated in ICU on Ventilator, s/p OGT/central line On pressors PRN Allergies: Coded Allergies: No Known Allergies (Unverified , 01/02/21) PMH: COPD, CPS/bipolar DO, prior DVT/PE on AC, NHR, DM2, HTN and hydrocephalus Physical Exam Deferred Covid19 Vital Signs noted Laboratory Tests noted Height (Feet): 5 Height (Inches): 5.00 Weight (Pounds): 233 Medications Medications noted Assessment/Plan Problem List: (1) Pneumonia due to COVID-19 virus ICD Codes: U07.1 - COVID-19; J12.82 - Pneumonia due to coronavirus disease 2019 SNOMED: 375945728349099749 (2) Acute hypercapnic respiratory failure ICD Codes: J96.02 - Acute respiratory failure with hypercapnia SNOMED: 423736614 (3) Respiratory failure with hypoxia ICD Codes: J96.91 - Respiratory failure, unspecified with hypoxia SNOMED: 60244061689783224 Qualifiers: Qualified Codes: J96.01 - Acute respiratory failure with hypoxia (4) COPD (chronic obstructive pulmonary disease) ICD Codes: J44.9 - Chronic obstructive pulmonary disease, unspecified SNOMED: 42419612 (5) History of deep venous thrombosis or pulmonary embolus SNOMED: 184935068 (6) Obesity ICD Codes: E66.9 - Obesity, unspecified SNOMED: 644112150, 099571946 (7) Essential hypertension ICD Codes: I10 - Essential (primary) hypertension SNOMED: 62038194 (8) Diabetes mellitus type 2 in obese ICD Codes: E11.69 - Type 2 diabetes mellitus with other specified complication; E66.9 - Obesity, unspecified SNOMED: 71935422 (9) History of hydrocephalus ICD Codes: Z86.69 - Personal history of other diseases of the nervous system and sense organs SNOMED: 266664013 (10) Schizophrenia ICD Codes: F20.9 - Schizophrenia, unspecified SNOMED: 95964357 (11) Bipolar 1 disorder ICD Codes: F31.9 - Bipolar disorder, unspecified SNOMED: 974228594 (12) Anticoagulant long-term use ICD Codes: Z79.01 - nursing home (current) use of anticoagulants SNOMED: 313621315 Assessment/Plan: ACVC - adjust PRN Prone as tolerated Adjust FiO2 to keep SaO2 > 92% HFA's Nutriton consult Pressors PRN F/U inflammatory markers and covid labs ID recs REM/SM 40 per ID Abx per ID F/U Cx's Monitor volumes and renal function DVT Px: Coumadin NPO-on TF FC Seen earlier Anuel Luis MD Jan 09, 2021 06:57
[2021-01-09 07:01] LABS: INR 1.3 (0.9-1.1)
[2021-01-09 07:08] LABS: BASOPHILS % (AUTO) 2.2 % (0.0-2.0); HEMATOCRIT 47.5 % (42.0-52.0); HEMOGLOBIN 14.3 G/DL (14.2-18.0); LYMPHOCYTES % (AUTO) 11.5 % (20.0-45.0); MEAN CORPUSCULAR VOLUME 94 FL (80-99); MONOCYTES % (AUTO) 7.5 % (1.0-10.0); NEUTROPHILS % (AUTO) 78.8 % (45.0-75.0); PLATELET COUNT 202 K/UL (150-450); RED BLOOD COUNT 5.06 M/UL (4.70-6.10); RED CELL DISTRIBUTION WIDTH 14.5 % (11.6-14.8); WHITE BLOOD COUNT 10.7 K/UL (4.8-10.8)
[2021-01-09 07:42] LABS: ALANINE AMINOTRANSFERASE 27 U/L (12-78); ALBUMIN/GLOBULIN RATIO 0.4 (1.0-2.7); ALKALINE PHOSPHATASE 68 U/L (46-116); ANION GAP 9 mmol/L (5-15); ASPARTATE AMINO TRANSFERASE 47 U/L (15-37); BILIRUBIN,TOTAL 0.6 MG/DL (0.2-1.0); BLOOD UREA NITROGEN 17 mg/dL (7-18); CALCIUM 8.1 MG/DL (8.5-10.1); CARBON DIOXIDE 28 MMOL/L (21-32); CHLORIDE 111 MMOL/L (98-107); CHOLESTEROL 270 MG/DL (< 200); GAMMA GLUTAMYL TRANSPEPTIDASE 102 U/L (5-85); HDL CHOLESTEROL 37 MG/DL (40-60); LACTATE DEHYDROGENASE 494 U/L (81-234); PHOSPHORUS 2.9 MG/DL (2.5-4.9); POTASSIUM 4.9 MMOL/L (3.5-5.1); SODIUM 148 MMOL/L (136-145); TRIGLYCERIDES 333 MG/DL (30-150)
--- NOTE | 2021-01-09 08:50 | Infectious Diseases Prog Note ---
Assessment/Plan 60yo M with: COVID pna, severe Acute hypoxia 2/2 COVID pna >> intubated 2/7 Febrile to 103 Normal WBC Elevated AST 51 2/2 Tested positive for COVID at SNF 2/3 COVID PCR positive 2/3 BCx NTD CXR: Multifocal pna MRSA nares neg 2/7 Intubated in ICU CXR: 1. Appropriately positioned endotracheal and enteric tubes. 2. Stable bilateral airspace disease. 01/07 Resp cx ordered Cr 1.1 HIV screen neg PMH: DM2 COPD HTN SNF resident Plan: Broaden abx to Zosyn #1 given critical illness, f/u resp cx Stop CTX #7/ Cont steroids #/, on methylpred 40 IV q12 Sputum cx 01/09 SP CTX #7 01/07 SP azithro #5, RDV #5 This institution does not have access to convalescent plasma and only recommended to give in setting of clinical trial Monitor CBC/CMP Monitor temp curve, hemodynamics Monitor resp status D/w RN Thank you for this consult. [facility] will continue to follow. Subjective Allergies: Coded Allergies: No Known Allergies (Unverified , 01/02/21) AF Sedated on vent FiO2 70% PEEP 12 Proned WBC 10.7 Objective Last 24 Hour Vital Signs Date Time Temp Pulse Resp B/P (MAP) Pulse Ox O2 Delivery O2 Flow Rate FiO2 01/09/21 08:30 87 26 124/70 (88) 97 01/09/21 08:00 Mechanical Ventilator 01/09/21 08:00 100 01/09/21 08:00 86 26 124/74 (91) 97 01/09/21 07:42 87 01/09/21 07:30 87 26 124/70 (88) 97 01/09/21 07:00 85 26 127/73 (91) 97 01/09/21 07:00 22 112/50 Mechanical Ventilator 100 01/09/21 07:00 21 Mechanical Ventilator 100 01/09/21 06:06 126/73 01/09/21 06:00 22 110/60 Mechanical Ventilator 100 01/09/21 06:00 22 Mechanical Ventilator 100 01/09/21 05:00 23 125/71 Mechanical Ventilator 100 01/09/21 05:00 23 Mechanical Ventilator 100 01/09/21 05:00 76 26 127/73 (91) 98 01/09/21 04:51 22 131/77 Mechanical Ventilator 100 01/09/21 04:30 88 26 100/57 (71) 97 01/09/21 04:00 98.8 83 26 121/69 (86) 97 01/09/21 04:00 100 01/09/21 04:00 82 01/09/21 04:00 25 100 01/09/21 04:00 26 118/69 Mechanical Ventilator 100 01/09/21 03:48 76 26 100 01/09/21 03:30 78 26 125/70 (88) 98 01/09/21 03:00 26 Mechanical Ventilator 100 01/09/21 03:00 26 128/74 Mechanical Ventilator 100 01/09/21 03:00 80 26 134/76 (95) 98 01/09/21 02:34 22 Mechanical Ventilator 100 01/09/21 02:34 20 100 01/09/21 02:30 76 26 128/76 (93) 98 01/09/21 02:00 21 Mechanical Ventilator 100 01/09/21 02:00 24 Mechanical Ventilator 100 01/09/21 02:00 25 126/74 Mechanical Ventilator 100 01/09/21 02:00 76 26 126/73 (90) 98 01/09/21 01:45 77 26 127/68 (87) 99 01/09/21 01:30 79 26 128/71 (90) 98 01/09/21 01:15 81 25 124/77 (93) 99 01/09/21 01:00 24 01/09/21 01:00 26 126/74 Mechanical Ventilator 100 01/09/21 01:00 81 25 124/77 (93) 99 01/09/21 00:58 83 20 126/75 (92) 01/09/21 00:30 75 26 119/74 (89) 99 01/09/21 00:00 100 01/09/21 00:00 26 Mechanical Ventilator 100 01/09/21 00:00 26 121/77 Mechanical Ventilator 100 01/09/21 00:00 99.0 78 26 121/77 (92) 99 01/09/21 00:00 76 01/08/21 23:30 81 23 101/67 (78) 100 01/08/21 23:20 76 26 80 01/08/21 23:00 77 26 120/75 (90) 99 01/08/21 23:00 26 Mechanical Ventilator 100 01/08/21 23:00 26 120/73 Mechanical Ventilator 100 01/08/21 23:00 26 120/73 Mechanical Ventilator 100 01/08/21 22:30 80 26 119/75 (90) 98 01/08/21 22:00 26 Mechanical Ventilator 100 01/08/21 22:00 26 120/73 Mechanical Ventilator 100 01/08/21 22:00 80 26 110/72 (85) 98 01/08/21 21:30 80 26 106/69 (81) 95 01/08/21 21:16 Mechanical Ventilator 100 01/08/21 21:00 81 25 113/74 (87) 94 01/08/21 21:00 26 109/72 Mechanical Ventilator 100 01/08/21 20:45 82 23 110/73 (85) 95 01/08/21 20:30 81 24 112/73 (86) 95 01/08/21 20:15 82 26 107/72 (84) 95 01/08/21 20:00 100 01/08/21 20:00 23 Mechanical Ventilator 100 01/08/21 20:00 23 112/73 Mechanical Ventilator 100 01/08/21 20:00 98.6 82 22 110/74 (86) 95 01/08/21 20:00 80 01/08/21 19:45 82 19 111/72 (85) 94 01/08/21 19:30 82 21 109/73 (85) 95 01/08/21 19:20 26 107/71 Mechanical Ventilator 100 01/08/21 19:10 83 29 80 01/08/21 19:00 82 14 107/70 (82) 95 01/08/21 19:00 26 Mechanical Ventilator 100 01/08/21 19:00 26 107/70 Mechanical Ventilator 100 01/08/21 18:00 26 Mechanical Ventilator 100 01/08/21 18:00 26 116/76 Mechanical Ventilator 100 01/08/21 18:00 90 6 113/71 (85) 95 01/08/21 17:00 26 Mechanical Ventilator 100 01/08/21 17:00 26 122/79 Mechanical Ventilator 100 01/08/21 17:00 102 26 121/78 (92) 95 01/08/21 16:30 99.1 100 26 121/80 (94) 97 01/08/21 16:13 25 Mechanical Ventilator 100 01/08/21 16:00 Mechanical Ventilator 01/08/21 16:00 97 01/08/21 16:00 22 Mechanical Ventilator 100 01/08/21 16:00 26 124/79 Mechanical Ventilator 100 01/08/21 16:00 99 26 124/79 (94) 97 01/08/21 16:00 100 01/08/21 15:45 24 Mechanical Ventilator 100 01/08/21 15:32 99 26 80 01/08/21 15:30 98 26 116/81 (93) 96 01/08/21 15:30 28 Mechanical Ventilator 100 01/08/21 15:15 25 Mechanical Ventilator 100 01/08/21 15:00 26 Mechanical Ventilator 100 01/08/21 15:00 26 113/81 Mechanical Ventilator 100 01/08/21 15:00 99 26 113/81 (92) 93 01/08/21 14:45 26 Mechanical Ventilator 100 01/08/21 14:30 25 Mechanical Ventilator 100 01/08/21 14:30 100 01/08/21 14:30 100 26 114/77 (89) 90 01/08/21 14:15 26 Mechanical Ventilator 100 01/08/21 14:00 22 Mechanical Ventilator 100 01/08/21 14:00 27 110/74 Mechanical Ventilator 100 01/08/21 14:00 105 26 110/74 (86) 88 01/08/21 13:45 25 Mechanical Ventilator 100 01/08/21 13:30 28 Mechanical Ventilator 100 01/08/21 13:30 128 26 90/65 (73) 89 01/08/21 13:27 33 Mechanical Ventilator 100 01/08/21 13:27 28 Mechanical Ventilator 80 01/08/21 13:26 101/60 01/08/21 13:00 26 101/69 Mechanical Ventilator 80 01/08/21 13:00 99 26 101/60 (74) 95 01/08/21 12:30 95 26 91/54 (66) 95 01/08/21 12:00 80 01/08/21 12:00 25 109/67 Mechanical Ventilator 80 01/08/21 12:00 26 109/62 Mechanical Ventilator 80 01/08/21 12:00 99.1 78 26 109/62 (78) 96 01/08/21 12:00 Mechanical Ventilator 01/08/21 12:00 78 01/08/21 11:53 100 01/08/21 11:30 79 26 110/66 (81) 96 01/08/21 11:30 77 26 99 Mechanical Ventilator 80 116 22 90 01/08/21 11:00 78 26 106/63 (77) 96 01/08/21 11:00 26 106/63 Mechanical Ventilator 80 01/08/21 11:00 26 106/63 Mechanical Ventilator 80 01/08/21 10:36 26 106/58 Mechanical Ventilator 90 01/08/21 10:30 80 26 103/66 (78) 96 01/08/21 10:00 26 103/66 Mechanical Ventilator 80 01/08/21 10:00 26 103/66 Mechanical Ventilator 80 01/08/21 10:00 80 26 105/64 (78) 96 01/08/21 09:00 26 102/60 Mechanical Ventilator 80 01/08/21 09:00 26 102/60 Mechanical Ventilator 80 01/08/21 09:00 80 26 103/62 (76) 96 Height (Feet): 5 Height (Inches): 5.00 Weight (Pounds): 233 Gen: NAD HEENT: NCAT, ETT Pulm: BL chest rise, proned Ext: No c/c/e Skin: No visible rashes Neuro: Sedated Laboratory Tests Test 01/09/21 05:40 White Blood Count 10.7 K/UL (4.8-10.8) Red Blood Count 5.06 M/UL (4.70-6.10) Hemoglobin 14.3 G/DL (14.2-18.0) Hematocrit 47.5 % (42.0-52.0) Mean Corpuscular Volume 94 FL (80-99) Mean Corpuscular Hemoglobin 28.3 PG (27.0-31.0) Mean Corpuscular Hemoglobin Concent 30.2 G/DL (32.0-36.0) L Red Cell Distribution Width 14.5 % (11.6-14.8) Platelet Count 202 K/UL (150-450) Mean Platelet Volume 7.9 FL (6.5-10.1) Neutrophils (%) (Auto) 78.8 % (45.0-75.0) H Lymphocytes (%) (Auto) 11.5 % (20.0-45.0) L Monocytes (%) (Auto) 7.5 % (1.0-10.0) Eosinophils (%) (Auto) 0.0 % (0.0-3.0) Basophils (%) (Auto) 2.2 % (0.0-2.0) H Prothrombin Time 14.5 SEC (9.30-11.50) H Prothromb Time International Ratio 1.3 (0.9-1.1) H Sodium Level 148 MMOL/L (136-145) H Potassium Level 4.9 MMOL/L (3.5-5.1) Chloride Level 111 MMOL/L (98-107) H Carbon Dioxide Level 28 MMOL/L (21-32) Anion Gap 9 mmol/L (5-15) Blood Urea Nitrogen 17 mg/dL (7-18) Creatinine 1.0 MG/DL (0.55-1.30) Estimat Glomerular Filtration Rate > 60 mL/min (>60) Glucose Level 270 MG/DL (74-106) H Uric Acid 3.9 MG/DL (2.6-7.2) Calcium Level 8.1 MG/DL (8.5-10.1) L Phosphorus Level 2.9 MG/DL (2.5-4.9) Magnesium Level 2.5 MG/DL (1.8-2.4) H Total Bilirubin 0.6 MG/DL (0.2-1.0) Gamma Glutamyl Transpeptidase 102 U/L (5-85) H Aspartate Amino Transf (AST/SGOT) 47 U/L (15-37) H Alanine Aminotransferase (ALT/SGPT) 27 U/L (12-78) Alkaline Phosphatase 68 U/L (46-116) Lactate Dehydrogenase 494 U/L (81-234) H Troponin I 0.000 ng/mL (0.000-0.056) C-Reactive Protein, Quantitative 11.5 mg/dL (0.00-0.90) H Pro-B-Type Natriuretic Peptide 77 pg/mL (0-125) Total Protein 6.6 G/DL (6.4-8.2) Albumin 2.0 G/DL (3.4-5.0) L Globulin 4.6 g/dL Albumin/Globulin Ratio 0.4 (1.0-2.7) L Triglycerides Level 333 MG/DL (30-150) H Cholesterol Level 270 MG/DL (< 200) H LDL Cholesterol 150 mg/dL (<100) H HDL Cholesterol 37 MG/DL (40-60) L Cholesterol/HDL Ratio 7.3 (3.3-4.4) H Vitamin B12 Level 733 PG/ML (193-986) Vitamin D 25-Hydroxy Pending 25-Hydroxy Vitamin D2 Pending 25-Hydroxy Vitamin D3 Pending Folate 12.6 NG/ML (8.6-58.9) Thyroid Stimulating Hormone (TSH) 0.080 uiU/mL (0.358-3.740) Current Medications Medications (Trade) Dose Ordered Sig/Johnny Route PRN Reason Start Time Stop Time Status Last Admin Dose Admin Acetaminophen (Tylenol) 650 mg Q6H PRN ORAL Mild Pain (Pain Scale 1-3) 01/02/21 08:15 02/01/21 08:14 Acetaminophen (Tylenol) 650 mg Q6H PRN ORAL Temp >100.5 01/02/21 08:15 02/01/21 08:14 Albuterol Sulfate (Proventil MDI) 2 puff Q6HRT INH 01/02/21 19:00 04/02/21 18:59 01/09/21 07:22 Benztropine Mesylate (Cogentin) 1 mg BID ORAL 01/02/21 09:00 02/01/21 08:59 01/08/21 17:35 Ceftriaxone Sodium 1 gm/ Dextrose 55 ml @ 110 mls/hr Q24H IVPB 01/03/21 01:00 01/10/21 00:59 01/09/21 01:13 Chlorhexidine Gluconate (Myranda-Hex 2%) 1 applic DAILY@2000 TOPIC 01/07/21 20:00 04/07/21 19:59 01/08/21 19:51 Dextrose (Dextrose 50%) 25 ml Q30M PRN IV Hypoglycemia 01/06/21 23:45 04/06/21 23:44 Dextrose (Dextrose 50%) 50 ml Q30M PRN IV Hypoglycemia 01/06/21 23:45 04/06/21 23:44 Divalproex Sodium (Depakote) 500 mg EVERY 12 HOURS ORAL 01/02/21 09:00 02/01/21 08:59 01/08/21 21:14 Fentanyl Citrate 250 ml @ 1 mls/hr Q24H IV 01/09/21 04:30 01/11/21 04:29 01/09/21 04:51 Insulin Aspart (NovoLOG) BEFORE MEALS AND HS SUBQ 01/04/21 16:30 04/04/21 16:29 01/09/21 06:07 Ipratropium [place] (Atrovent Inh) 1 puffs Q6HRT INH 01/02/21 19:00 02/01/21 18:59 01/09/21 07:22 Lorazepam (Ativan 2mg/ml 1ml) 1 mg Q6H PRN IV For Anxiety 01/06/21 16:30 01/13/21 20:59 Methylprednisolone Sodium Succinate (Solu-MEDROL) 40 mg EVERY 12 HOURS IVP 01/02/21 09:00 04/02/21 08:59 01/08/21 21:31 Midazolam HCl 100 mg/Sodium Chloride 200 ml @ 0 mls/hr Q24H PRN IV Agitation 01/08/21 21:00 01/10/21 20:59 01/09/21 02:34 Norepinephrine Bitartrate 250 ml @ 0 mls/hr Q24H IV 01/07/21 03:45 01/10/21 03:34 01/09/21 06:06 Ondansetron HCl (Zofran) 4 mg Q4H PRN IVP Nausea & Vomiting 01/02/21 08:15 02/01/21 08:14 Pantoprazole (Protonix) 40 mg Q12HR IVP 01/08/21 21:00 02/06/21 08:59 01/08/21 21:14 Quetiapine Fumarate (SEROqueL) 200 mg DAILY ORAL 01/02/21 09:00 02/16/21 08:59 01/06/21 09:13 Risperidone (RisperDAL) 0.5 mg BID ORAL 01/02/21 09:00 02/16/21 08:59 01/06/21 09:14 Sodium Chloride 1,000 ml @ 75 mls/hr [id number] IV 01/08/21 11:00 02/07/21 10:59 01/09/21 06:09 Temazepam (RestoriL) 7.5 mg BEDTIME ORAL 01/02/21 21:00 01/09/21 20:59 01/06/21 22:22 Warfarin Sodium (Coumadin per pharmacy) 1 ea DAILY PRN MISC Per rx protocol 01/02/21 08:30 02/01/21 08:29 Renetta Gomez M.D. Jan 09, 2021 08:50
[2021-01-09] MEDS: Solu-MEDROL 40mg Inj IVP SCH ×2 (08:59→20:19)
[2021-01-09] MEDS: Pantoprazole Inj IVP SCH ×2 (08:59→20:19)
[2021-01-09] MEDS: Depakote 500mg tab ORAL SCH ×2 (09:00→20:20)
[2021-01-09] MEDS: Benztropine 1mg tab ORAL SCH (09:00)
[2021-01-09] MEDS: QUEtiapine 200mg tab ORAL SCH (09:00)
[2021-01-09] MEDS: QUEtiapine 200mg tab NG SCH (09:15)
[2021-01-09] MEDS: Benztropine 1mg tab NG SCH ×2 (09:15→20:19)
--- NOTE | 2021-01-09 10:22 | Nephrology Progress Note ---
Assessment/Plan Problem List: (1) Hyperkalemia (2) Pneumonia due to COVID-19 virus (3) Respiratory failure with hypoxia (4) Obesity (5) Schizophrenia (6) DMII (diabetes mellitus, type 2) Assessment Hyperkalemia Stable renal parameters Hyperglycemia Covid pneumonia due to COVID-19 virus Acute respiratory failure with hypoxia requiring mechanical ventilation History of COPD History of DVT, pulmonary emboli Obese Hypertension History of diabetes Psych condition, schizophrenia, bipolar disease Plan Change IV to half-normal saline Kayexalate via NG tube for high potassium Monitor electrolytes and renal parameters Per orders, per consultants Subjective ROS Limited/Unobtainable: Yes Objective Objective Last 24 Hour Vital Signs Date Time Temp Pulse Resp B/P (MAP) Pulse Ox O2 Delivery O2 Flow Rate FiO2 01/09/21 10:14 26 129/73 Mechanical Ventilator 70 01/09/21 09:58 70 01/09/21 09:45 93 26 102/63 (76) 95 01/09/21 09:30 87 26 120/68 (85) 96 01/09/21 09:15 86 24 120/69 (86) 97 01/09/21 09:13 70 01/09/21 09:00 86 26 121/72 (88) 95 01/09/21 08:30 87 26 124/70 (88) 97 01/09/21 08:00 Mechanical Ventilator 01/09/21 08:00 100 01/09/21 08:00 86 26 124/74 (91) 97 01/09/21 08:00 26 124/74 Mechanical Ventilator 100 01/09/21 07:42 87 01/09/21 07:30 87 26 124/70 (88) 97 01/09/21 07:00 85 26 127/73 (91) 97 01/09/21 07:00 22 112/50 Mechanical Ventilator 100 01/09/21 07:00 21 Mechanical Ventilator 100 01/09/21 06:06 126/73 01/09/21 06:00 22 110/60 Mechanical Ventilator 100 01/09/21 06:00 22 Mechanical Ventilator 100 01/09/21 05:00 23 125/71 Mechanical Ventilator 100 01/09/21 05:00 23 Mechanical Ventilator 100 01/09/21 05:00 76 26 127/73 (91) 98 01/09/21 04:51 22 131/77 Mechanical Ventilator 100 01/09/21 04:30 88 26 100/57 (71) 97 01/09/21 04:00 98.8 83 26 121/69 (86) 97 01/09/21 04:00 100 01/09/21 04:00 82 01/09/21 04:00 25 100 01/09/21 04:00 26 118/69 Mechanical Ventilator 100 01/09/21 03:48 76 26 100 01/09/21 03:30 78 26 125/70 (88) 98 01/09/21 03:00 26 Mechanical Ventilator 100 01/09/21 03:00 26 128/74 Mechanical Ventilator 100 01/09/21 03:00 80 26 134/76 (95) 98 01/09/21 02:34 22 Mechanical Ventilator 100 01/09/21 02:34 20 100 01/09/21 02:30 76 26 128/76 (93) 98 01/09/21 02:00 21 Mechanical Ventilator 100 01/09/21 02:00 24 Mechanical Ventilator 100 01/09/21 02:00 25 126/74 Mechanical Ventilator 100 01/09/21 02:00 76 26 126/73 (90) 98 01/09/21 01:45 77 26 127/68 (87) 99 01/09/21 01:30 79 26 128/71 (90) 98 01/09/21 01:15 81 25 124/77 (93) 99 01/09/21 01:00 24 01/09/21 01:00 26 126/74 Mechanical Ventilator 100 01/09/21 01:00 81 25 124/77 (93) 99 01/09/21 00:58 83 20 126/75 (92) 01/09/21 00:30 75 26 119/74 (89) 99 01/09/21 00:00 100 01/09/21 00:00 26 Mechanical Ventilator 100 01/09/21 00:00 26 121/77 Mechanical Ventilator 100 01/09/21 00:00 99.0 78 26 121/77 (92) 99 01/09/21 00:00 76 01/08/21 23:30 81 23 101/67 (78) 100 01/08/21 23:20 76 26 80 01/08/21 23:00 77 26 120/75 (90) 99 01/08/21 23:00 26 Mechanical Ventilator 100 01/08/21 23:00 26 120/73 Mechanical Ventilator 100 01/08/21 23:00 26 120/73 Mechanical Ventilator 100 01/08/21 22:30 80 26 119/75 (90) 98 01/08/21 22:00 26 Mechanical Ventilator 100 01/08/21 22:00 26 120/73 Mechanical Ventilator 100 01/08/21 22:00 80 26 110/72 (85) 98 01/08/21 21:30 80 26 106/69 (81) 95 01/08/21 21:16 Mechanical Ventilator 100 01/08/21 21:00 81 25 113/74 (87) 94 01/08/21 21:00 26 109/72 Mechanical Ventilator 100 01/08/21 20:45 82 23 110/73 (85) 95 01/08/21 20:30 81 24 112/73 (86) 95 01/08/21 20:15 82 26 107/72 (84) 95 01/08/21 20:00 100 01/08/21 20:00 23 Mechanical Ventilator 100 01/08/21 20:00 23 112/73 Mechanical Ventilator 100 01/08/21 20:00 98.6 82 22 110/74 (86) 95 01/08/21 20:00 80 01/08/21 19:45 82 19 111/72 (85) 94 01/08/21 19:30 82 21 109/73 (85) 95 01/08/21 19:20 26 107/71 Mechanical Ventilator 100 01/08/21 19:10 83 29 80 01/08/21 19:00 82 14 107/70 (82) 95 01/08/21 19:00 26 Mechanical Ventilator 100 01/08/21 19:00 26 107/70 Mechanical Ventilator 100 01/08/21 18:00 26 Mechanical Ventilator 100 01/08/21 18:00 26 116/76 Mechanical Ventilator 100 01/08/21 18:00 90 6 113/71 (85) 95 01/08/21 17:00 26 Mechanical Ventilator 100 01/08/21 17:00 26 122/79 Mechanical Ventilator 100 01/08/21 17:00 102 26 121/78 (92) 95 01/08/21 16:30 99.1 100 26 121/80 (94) 97 01/08/21 16:13 25 Mechanical Ventilator 100 01/08/21 16:00 Mechanical Ventilator 01/08/21 16:00 97 01/08/21 16:00 22 Mechanical Ventilator 100 01/08/21 16:00 26 124/79 Mechanical Ventilator 100 01/08/21 16:00 99 26 124/79 (94) 97 01/08/21 16:00 100 01/08/21 15:45 24 Mechanical Ventilator 100 01/08/21 15:32 99 26 80 01/08/21 15:30 98 26 116/81 (93) 96 01/08/21 15:30 28 Mechanical Ventilator 100 01/08/21 15:15 25 Mechanical Ventilator 100 01/08/21 15:00 26 Mechanical Ventilator 100 01/08/21 15:00 26 113/81 Mechanical Ventilator 100 01/08/21 15:00 99 26 113/81 (92) 93 01/08/21 14:45 26 Mechanical Ventilator 100 01/08/21 14:30 25 Mechanical Ventilator 100 01/08/21 14:30 100 01/08/21 14:30 100 26 114/77 (89) 90 01/08/21 14:15 26 Mechanical Ventilator 100 01/08/21 14:00 22 Mechanical Ventilator 100 01/08/21 14:00 27 110/74 Mechanical Ventilator 100 01/08/21 14:00 105 26 110/74 (86) 88 01/08/21 13:45 25 Mechanical Ventilator 100 01/08/21 13:30 28 Mechanical Ventilator 100 01/08/21 13:30 128 26 90/65 (73) 89 01/08/21 13:27 33 Mechanical Ventilator 100 01/08/21 13:27 28 Mechanical Ventilator 80 01/08/21 13:26 101/60 01/08/21 13:00 26 101/69 Mechanical Ventilator 80 01/08/21 13:00 99 26 101/60 (74) 95 01/08/21 12:30 95 26 91/54 (66) 95 01/08/21 12:00 80 01/08/21 12:00 25 109/67 Mechanical Ventilator 80 01/08/21 12:00 26 109/62 Mechanical Ventilator 80 01/08/21 12:00 99.1 78 26 109/62 (78) 96 01/08/21 12:00 Mechanical Ventilator 01/08/21 12:00 78 01/08/21 11:53 100 01/08/21 11:30 79 26 110/66 (81) 96 01/08/21 11:30 77 26 99 Mechanical Ventilator 80 116 22 90 01/08/21 11:00 78 26 106/63 (77) 96 01/08/21 11:00 26 106/63 Mechanical Ventilator 80 01/08/21 11:00 26 106/63 Mechanical Ventilator 80 01/08/21 10:36 26 106/58 Mechanical Ventilator 90 01/08/21 10:30 80 26 103/66 (78) 96 Intake and Output 01/08/21 01/09/21 19:00 07:00 Intake Total 1403.100 ml 1610 ml Output Total 560 ml 630 ml Balance 843.100 ml 980 ml Free Water 20 ml IV Total 1363.100 ml 1530 ml Tube Feeding 20 ml 80 ml Output Urine Total 560 ml 630 ml Current Medications Medications (Trade) Dose Ordered Sig/Johnny Route PRN Reason Start Time Stop Time Status Last Admin Dose Admin Acetaminophen (Tylenol) 650 mg Q6H PRN NG Mild Pain (Pain Scale 1-3) 01/09/21 09:15 02/08/21 09:14 Acetaminophen (Tylenol) 650 mg Q6H PRN NG Temp >100.5 01/09/21 09:15 02/08/21 09:14 Albuterol Sulfate (Proventil MDI) 2 puff Q6HRT INH 01/02/21 19:00 04/02/21 18:59 01/09/21 07:22 Benztropine Mesylate (Cogentin) 1 mg EVERY 12 HOURS NG 01/09/21 09:15 02/01/21 09:14 Chlorhexidine Gluconate (Myranda-Hex 2%) 1 applic DAILY@2000 TOPIC 01/07/21 20:00 04/07/21 19:59 01/08/21 19:51 Dextrose (Dextrose 50%) 25 ml Q30M PRN IV Hypoglycemia 01/06/21 23:45 04/06/21 23:44 Dextrose (Dextrose 50%) 50 ml Q30M PRN IV Hypoglycemia 01/06/21 23:45 04/06/21 23:44 Divalproex Sodium (Depakote) 500 mg EVERY 12 HOURS ORAL 01/02/21 09:00 02/01/21 08:59 01/08/21 21:14 Fentanyl Citrate 250 ml @ 1 mls/hr Q24H IV 01/09/21 04:30 01/11/21 04:29 01/09/21 10:14 Insulin Aspart (NovoLOG) EVERY 6 HOURS SUBQ 01/09/21 12:00 04/04/21 16:29 Ipratropium [place] (Atrovent Inh) 1 puffs Q6HRT INH 01/02/21 19:00 02/01/21 18:59 01/09/21 07:22 Lorazepam (Ativan 2mg/ml 1ml) 1 mg Q6H PRN IV For Anxiety 01/06/21 16:30 01/13/21 20:59 Methylprednisolone Sodium Succinate (Solu-MEDROL) 40 mg EVERY 12 HOURS IVP 01/02/21 09:00 04/02/21 08:59 01/09/21 08:59 Midazolam HCl 100 mg/Sodium Chloride 200 ml @ 0 mls/hr Q24H PRN IV Agitation 01/08/21 21:00 01/10/21 20:59 01/09/21 02:34 Norepinephrine Bitartrate 250 ml @ 0 mls/hr Q24H IV 01/07/21 03:45 01/10/21 03:34 01/09/21 06:06 Ondansetron HCl (Zofran) 4 mg Q4H PRN IVP Nausea & Vomiting 01/02/21 08:15 02/01/21 08:14 Pantoprazole (Protonix) 40 mg Q12HR IVP 01/08/21 21:00 02/06/21 08:59 01/09/21 08:59 Piperacillin Sod/ Tazobactam Sod 3.375 gm/Sodium Chloride 110 ml @ 27.5 mls/hr EVERY 8 HOURS IVPB 01/09/21 14:00 01/14/21 13:59 Quetiapine Fumarate (SEROqueL) 200 mg DAILY NG 01/09/21 09:15 02/23/21 09:14 Risperidone (RisperDAL) 0.5 mg EVERY 12 HOURS NG 01/09/21 09:15 02/16/21 09:14 Sodium Chloride 1,000 ml @ 75 mls/hr [id number] IV 01/08/21 11:00 02/07/21 10:59 01/09/21 06:09 Temazepam (RestoriL) 7.5 mg BEDTIME ORAL 01/02/21 21:00 01/09/21 20:59 01/06/21 22:22 Warfarin Sodium (Coumadin per pharmacy) 1 ea DAILY PRN MISC Per rx protocol 01/02/21 08:30 02/01/21 08:29 Laboratory Tests 01/09/21 05:40: White Blood Count 10.7, Red Blood Count 5.06, Hemoglobin 14.3, Hematocrit 47.5, Mean Corpuscular Volume 94, Mean Corpuscular Hemoglobin 28.3, Mean Corpuscular Hemoglobin Concent 30.2L, Red Cell Distribution Width 14.5, Platelet Count 202, Mean Platelet Volume 7.9, Neutrophils (%) (Auto) 78.8H, Lymphocytes (%) (Auto) 11.5L, Monocytes (%) (Auto) 7.5, Eosinophils (%) (Auto) 0.0, Basophils (%) (Auto) 2.2H, Prothrombin Time 14.5H, Prothromb Time International Ratio 1.3H, Sodium Level 148H, Potassium Level 4.9, Chloride Level 111H, Carbon Dioxide Level 28, Anion Gap 9, Blood Urea Nitrogen 17, Creatinine 1.0, Estimat Glomerular Filtration Rate > 60, Glucose Level 270H, Uric Acid 3.9, Calcium Level 8.1L, Phosphorus Level 2.9, Magnesium Level 2.5H, Total Bilirubin 0.6, Gamma Glutamyl Transpeptidase 102H, Aspartate Amino Transf (AST/SGOT) 47H, Alanine Aminotransferase (ALT/SGPT) 27, Alkaline Phosphatase 68, Lactate Dehydrogenase 494H, Troponin I 0.000, C-Reactive Protein, Quantitative 11.5H, Pro-B-Type Natriuretic Peptide 77, Total Protein 6.6, Albumin 2.0L, Globulin 4.6, Albumin/Globulin Ratio 0.4L, Triglycerides Level 333H, Cholesterol Level 270H, LDL Cholesterol 150H, HDL Cholesterol 37L, Cholesterol/HDL Ratio 7.3H, Vitamin B12 Level 733, Vitamin D 25-Hydroxy [Pending], 25-Hydroxy Vitamin D2 [Pending], 25-Hydroxy Vitamin D3 [Pending], Folate 12.6, Thyroid Stimulating Hormone (TSH) 0.080L 01/09/21 08:56: Arterial Blood pH 7.368, Arterial Blood Partial Pressure CO2 49.5H, Arterial Bl ood Partial Pressure O2 296.9H, Arterial Blood HCO3 27.8H, Arterial Blood Oxygen Saturation 99.4, Arterial Blood Base Excess 1.7, Miguelito Test Positive Height (Feet): 5 Height (Inches): 5.00 Weight (Pounds): 233 General Appearance: no apparent distress, other - On supine position EENT: other - Intubated on ventilator Cardiovascular: tachycardia Respiratory/Chest: decreased breath sounds Abdomen: distended Avi Frye MD Jan 09, 2021 10:22
--- NOTE | 2021-01-09 13:26 | Internal Med Progress Note ---
Subjective Date of Service: Jan 09, 2021 Physician Name Vickey Brown Attending Physician Geovanny Bradley MD Current Medications Medications (Trade) Dose Ordered Sig/Johnny Route PRN Reason Start Time Stop Time Status Last Admin Dose Admin Acetaminophen (Tylenol) 650 mg Q6H PRN NG Mild Pain (Pain Scale 1-3) 01/09/21 09:15 02/08/21 09:14 Acetaminophen (Tylenol) 650 mg Q6H PRN NG Temp >100.5 01/09/21 09:15 02/08/21 09:14 Albuterol Sulfate (Proventil MDI) 2 puff Q6HRT INH 01/02/21 19:00 04/02/21 18:59 01/09/21 07:22 Benztropine Mesylate (Cogentin) 1 mg EVERY 12 HOURS NG 01/09/21 09:15 02/01/21 09:14 Chlorhexidine Gluconate (Myranda-Hex 2%) 1 applic DAILY@2000 TOPIC 01/07/21 20:00 04/07/21 19:59 01/08/21 19:51 Dextrose (Dextrose 50%) 25 ml Q30M PRN IV Hypoglycemia 01/06/21 23:45 04/06/21 23:44 Dextrose (Dextrose 50%) 50 ml Q30M PRN IV Hypoglycemia 01/06/21 23:45 04/06/21 23:44 Divalproex Sodium (Depakote) 500 mg EVERY 12 HOURS ORAL 01/02/21 09:00 02/01/21 08:59 01/08/21 21:14 Fentanyl Citrate 250 ml @ 1 mls/hr Q24H IV 01/09/21 04:30 01/11/21 04:29 01/09/21 12:11 Insulin Aspart (NovoLOG) EVERY 6 HOURS SUBQ 01/09/21 12:00 04/04/21 16:29 01/09/21 12:32 Ipratropium [place] (Atrovent Inh) 1 puffs Q6HRT INH 01/02/21 19:00 02/01/21 18:59 01/09/21 07:22 Lorazepam (Ativan 2mg/ml 1ml) 1 mg Q6H PRN IV For Anxiety 01/06/21 16:30 01/13/21 20:59 Methylprednisolone Sodium Succinate (Solu-MEDROL) 40 mg EVERY 12 HOURS IVP 01/02/21 09:00 04/02/21 08:59 01/09/21 08:59 Midazolam HCl 100 mg/Sodium Chloride 200 ml @ 0 mls/hr Q24H PRN IV Agitation 01/08/21 21:00 01/10/21 20:59 01/09/21 12:10 Norepinephrine Bitartrate 250 ml @ 0 mls/hr Q24H IV 01/07/21 03:45 01/10/21 03:34 01/09/21 06:06 Ondansetron HCl (Zofran) 4 mg Q4H PRN IVP Nausea & Vomiting 01/02/21 08:15 02/01/21 08:14 Pantoprazole (Protonix) 40 mg Q12HR IVP 01/08/21 21:00 02/06/21 08:59 01/09/21 08:59 Piperacillin Sod/ Tazobactam Sod 3.375 gm/Sodium Chloride 110 ml @ 27.5 mls/hr EVERY 8 HOURS IVPB 01/09/21 14:00 01/14/21 13:59 Quetiapine Fumarate (SEROqueL) 200 mg DAILY NG 01/09/21 09:15 02/23/21 09:14 Risperidone (RisperDAL) 0.5 mg EVERY 12 HOURS NG 01/09/21 09:15 02/16/21 09:14 Sodium Chloride 1,000 ml @ 75 mls/hr [id number] IV 01/08/21 11:00 02/07/21 10:59 01/09/21 06:09 Temazepam (RestoriL) 7.5 mg BEDTIME ORAL 01/02/21 21:00 01/09/21 20:59 01/06/21 22:22 Warfarin Sodium (Coumadin per pharmacy) 1 ea DAILY PRN MISC Per rx protocol 01/02/21 08:30 02/01/21 08:29 Warfarin Sodium (Coumadin) 2.5 mg COUMADIN ONCE ORAL 01/09/21 17:00 01/09/21 17:01 Allergies: Coded Allergies: No Known Allergies (Unverified , 01/02/21) ROS Limited/Unobtainable: Yes Subjective 60 YO M admitted with shortness of breath. Now respiratory failure. Cover for Int Med-DR Kirk. ICU. Intubated and sedated Objective Last Vital Signs Date Time Temp Pulse Resp B/P (MAP) Pulse Ox O2 Delivery O2 Flow Rate FiO2 01/09/21 13:00 83 26 137/75 (95) 97 01/09/21 13:00 Mechanical Ventilator 60 01/09/21 12:00 99.0 01/06/21 19:40 15.0 Laboratory Tests Test 01/09/21 05:40 01/09/21 08:56 White Blood Count 10.7 K/UL (4.8-10.8) Red Blood Count 5.06 M/UL (4.70-6.10) Hemoglobin 14.3 G/DL (14.2-18.0) Hematocrit 47.5 % (42.0-52.0) Mean Corpuscular Volume 94 FL (80-99) Mean Corpuscular Hemoglobin 28.3 PG (27.0-31.0) Mean Corpuscular Hemoglobin Concent 30.2 G/DL (32.0-36.0) L Red Cell Distribution Width 14.5 % (11.6-14.8) Platelet Count 202 K/UL (150-450) Mean Platelet Volume 7.9 FL (6.5-10.1) Neutrophils (%) (Auto) 78.8 % (45.0-75.0) H Lymphocytes (%) (Auto) 11.5 % (20.0-45.0) L Monocytes (%) (Auto) 7.5 % (1.0-10.0) Eosinophils (%) (Auto) 0.0 % (0.0-3.0) Basophils (%) (Auto) 2.2 % (0.0-2.0) H Prothrombin Time 14.5 SEC (9.30-11.50) H Prothromb Time International Ratio 1.3 (0.9-1.1) H Sodium Level 148 MMOL/L (136-145) H Potassium Level 4.9 MMOL/L (3.5-5.1) Chloride Level 111 MMOL/L (98-107) H Carbon Dioxide Level 28 MMOL/L (21-32) Anion Gap 9 mmol/L (5-15) Blood Urea Nitrogen 17 mg/dL (7-18) Creatinine 1.0 MG/DL (0.55-1.30) Estimat Glomerular Filtration Rate > 60 mL/min (>60) Glucose Level 270 MG/DL (74-106) H Uric Acid 3.9 MG/DL (2.6-7.2) Calcium Level 8.1 MG/DL (8.5-10.1) L Phosphorus Level 2.9 MG/DL (2.5-4.9) Magnesium Level 2.5 MG/DL (1.8-2.4) H Total Bilirubin 0.6 MG/DL (0.2-1.0) Gamma Glutamyl Transpeptidase 102 U/L (5-85) H Aspartate Amino Transf (AST/SGOT) 47 U/L (15-37) H Alanine Aminotransferase (ALT/SGPT) 27 U/L (12-78) Alkaline Phosphatase 68 U/L (46-116) Lactate Dehydrogenase 494 U/L (81-234) H Troponin I 0.000 ng/mL (0.000-0.056) C-Reactive Protein, Quantitative 11.5 mg/dL (0.00-0.90) H Pro-B-Type Natriuretic Peptide 77 pg/mL (0-125) Total Protein 6.6 G/DL (6.4-8.2) Albumin 2.0 G/DL (3.4-5.0) L Globulin 4.6 g/dL Albumin/Globulin Ratio 0.4 (1.0-2.7) L Triglycerides Level 333 MG/DL (30-150) H Cholesterol Level 270 MG/DL (< 200) H LDL Cholesterol 150 mg/dL (<100) H HDL Cholesterol 37 MG/DL (40-60) L Cholesterol/HDL Ratio 7.3 (3.3-4.4) H Vitamin B12 Level 733 PG/ML (193-986) Vitamin D 25-Hydroxy Pending 25-Hydroxy Vitamin D2 Pending 25-Hydroxy Vitamin D3 Pending Folate 12.6 NG/ML (8.6-58.9) Thyroid Stimulating Hormone (TSH) 0.080 uiU/mL (0.358-3.740) Arterial Blood pH 7.368 (7.350-7.450) Arterial Blood Partial Pressure CO2 49.5 mmHg (35.0-45.0) H Arterial Blood Partial Pressure O2 296.9 mmHg (75.0-100.0) H Arterial Blood HCO3 27.8 mmol/L (22.0-26.0) H Arterial Blood Oxygen Saturation 99.4 % (95-100) Arterial Blood Base Excess 1.7 (-2-2) Miguelito Test Positive Intake and Output 01/08/21 01/09/21 19:00 07:00 Intake Total 1403.100 ml 1610 ml Output Total 560 ml 630 ml Balance 843.100 ml 980 ml Free Water 20 ml IV Total 1363.100 ml 1530 ml Tube Feeding 20 ml 80 ml Output Urine Total 560 ml 630 ml Objective Objective General: awake, responsive , confused. HEENT: NCAT, sclera anicteric, PERRL, EOMI. Neck: Supple, no significant jugular venous distention, Lungs: mech vent; decreased air at the bases, occasional crackles, no Wheeze. Heart: Regular rate and rhythm, normal S1/S2, no murmurs Abdomen: soft, nontender, nondistended. Normoactive bowel sound, obesity. / Rectal: Refused and deferred. Extremities: Left LE: No Cyanosis , clubbing or edema. Right LE AKA. Neuro: A&O x 2, Able to move all extremities Skin: warm, no rashes or lesions. Assessment/Plan Assessment/Plan Assessment/Plan Assessment/Plan (1) Pneumonia due to COVID-19 virus ICD Codes: U07.1 - COVID-19; J12.82 - Pneumonia due to coronavirus disease 2019 SNOMED: 360757261614970990 (2) Acute hypercapnic respiratory failure ICD Codes: J96.02 - Acute respiratory failure with hypercapnia SNOMED: 055867844 (3) Respiratory failure with hypoxia ICD Codes: J96.91 - Respiratory failure, unspecified with hypoxia SNOMED: 51188265207260287 Qualifiers: Qualified Codes: J96.01 - Acute respiratory failure with hypoxia (4) COPD (chronic obstructive pulmonary disease) ICD Codes: J44.9 - Chronic obstructive pulmonary disease, unspecified SNOMED: 33968055 (5) History of deep venous thrombosis or pulmonary embolus SNOMED: 203703101 (6) Obesity ICD Codes: E66.9 - Obesity, unspecified SNOMED: 127679265, 045237158 (7) Essential hypertension ICD Codes: I10 - Essential (primary) hypertension SNOMED: 70231754 (8) Diabetes mellitus type 2 in obese ICD Codes: E11.69 - Type 2 diabetes mellitus with other specified complication; E66.9 - Obesity, unspecified SNOMED: 70357459 (9) History of hydrocephalus ICD Codes: Z86.69 - Personal history of other diseases of the nervous system and sense organs SNOMED: 080821315 (10) Schizophrenia ICD Codes: F20.9 - Schizophrenia, unspecified SNOMED: 52804111 (11) Bipolar 1 disorder ICD Codes: F31.9 - Bipolar disorder, unspecified SNOMED: 672283297 (12) Anticoagulant long-term use ICD 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 Abx =ceftriaxone F/U Cx's Monitor volumes and renal function DVT Px: Coumadin DC IV fluid Start diet Monitor blood glucose level closely. On levophed, fentanyl and propofol drips Pulmonary=Dr Luis ID=Vickey Mtz MD Jan 09, 2021 13:26
[2021-01-09] MEDS: Piperacillin/Tazobactam 3.375 GM in NS 110 ML IVPB SCH ×2 (13:57→20:21)
[2021-01-09] MEDS ORDERED: Warfarin Sodium 2.5mg ORAL ONE (17:00)
[2021-01-09] MEDS: Acetaminophen 650mg/20.3ml NG PRN (20:19)
[2021-01-09] MEDS: Dyna-Hex 2% Top Sol 2oz TOPIC SCH (20:19)
[2021-01-10] VITALS (45 sets, daily range): BP systolic 92–123; BP diastolic 56–81
[2021-01-10 04:41] LABS: BASOPHILS % (AUTO) 3.5 % (0.0-2.0); HEMATOCRIT 44.4 % (42.0-52.0); HEMOGLOBIN 13.6 G/DL (14.2-18.0); LYMPHOCYTES % (AUTO) 7.4 % (20.0-45.0); MEAN CORPUSCULAR VOLUME 93 FL (80-99); MONOCYTES % (AUTO) 9.7 % (1.0-10.0); NEUTROPHILS % (AUTO) 79.4 % (45.0-75.0); PLATELET COUNT 146 K/UL (150-450); RED BLOOD COUNT 4.78 M/UL (4.70-6.10); RED CELL DISTRIBUTION WIDTH 14.3 % (11.6-14.8); WHITE BLOOD COUNT 11.2 K/UL (4.8-10.8)
[2021-01-10 04:43] LABS: INR 1.7 (0.9-1.1)
[2021-01-10 05:03] LABS: ALANINE AMINOTRANSFERASE 24 U/L (12-78); ALBUMIN 1.9 G/DL (3.4-5.0); ALBUMIN/GLOBULIN RATIO 0.5 (1.0-2.7); ALKALINE PHOSPHATASE 56 U/L (46-116); ANION GAP 7 mmol/L (5-15); ASPARTATE AMINO TRANSFERASE 40 U/L (15-37); BILIRUBIN,TOTAL 0.7 MG/DL (0.2-1.0); BLOOD UREA NITROGEN 21 mg/dL (7-18); CALCIUM 8.2 MG/DL (8.5-10.1); CARBON DIOXIDE 29 MMOL/L (21-32); CHLORIDE 113 MMOL/L (98-107); CREATININE 0.9 MG/DL (0.55-1.30); PHOSPHORUS 2.9 MG/DL (2.5-4.9); POTASSIUM 4.5 MMOL/L (3.5-5.1); SODIUM 149 MMOL/L (136-145)
[2021-01-10] MEDS: Albuterol 90mcg Inhaler 8gm INH SCH ×4 (05:29→19:10)
[2021-01-10] MEDS: Ipratropium Bromide Inhaler INH SCH ×4 (05:29→19:10)
[2021-01-10] MEDS: Piperacillin/Tazobactam 3.375 GM in NS 110 ML IVPB SCH ×3 (06:15→22:10)
[2021-01-10] MEDS: NovoLOG Insulin Flexpen SUBQ SCH ×4 (06:16→17:36)
--- NOTE | 2021-01-10 07:15 | Pulmonology Progress Note ---
Subjective ROS Limited/Unobtainable: Yes Allergies: Coded Allergies: No Known Allergies (Unverified , 01/02/21) Objective Last 24 Hour Vital Signs Date Time Temp Pulse Resp B/P (MAP) Pulse Ox O2 Delivery O2 Flow Rate FiO2 01/10/21 06:00 78 26 101/68 (79) 96 01/10/21 06:00 26 103/75 Mechanical Ventilator 100 01/10/21 06:00 26 Mechanical Ventilator 100 01/10/21 05:30 82 26 93/56 (68) 95 01/10/21 05:00 72 26 104/71 (82) 95 01/10/21 05:00 26 102/62 Mechanical Ventilator 100 01/10/21 05:00 26 Mechanical Ventilator 100 01/10/21 04:30 72 26 103/71 (82) 95 01/10/21 04:00 100 01/10/21 04:00 26 103/71 Mechanical Ventilator 100 01/10/21 04:00 0 Mechanical Ventilator 100 01/10/21 04:00 99.4 73 26 103/66 (78) 94 01/10/21 04:00 72 01/10/21 03:00 26 100/63 Mechanical Ventilator 100 01/10/21 03:00 26 Mechanical Ventilator 100 01/10/21 03:00 76 26 100/67 (78) 90 01/10/21 02:30 79 26 104/72 (83) 90 01/10/21 02:06 95 20 97/63 (74) 87 01/10/21 02:00 99.2 99 20 100/59 (73) 84 01/10/21 02:00 26 100/67 Mechanical Ventilator 100 01/10/21 02:00 26 Mechanical Ventilator 26 01/10/21 02:00 100 01/10/21 01:30 84 26 101/65 (77) 93 01/10/21 01:10 87 27 60 01/10/21 01:00 26 93/53 Mechanical Ventilator 60 01/10/21 01:00 26 Mechanical Ventilator 60 01/10/21 01:00 57 26 119/77 (91) 95 01/10/21 00:30 54 26 92/69 (77) 95 01/10/21 00:00 60 01/10/21 00:00 99.0 57 26 123/76 (92) 95 01/10/21 00:00 26 98/55 Mechanical Ventilator 60 01/10/21 00:00 26 Mechanical Ventilator 60 01/10/21 00:00 56 01/09/21 23:37 26 Mechanical Ventilator 60 01/09/21 23:37 65 26 123/76 94 01/09/21 23:36 26 109/75 Mechanical Ventilator 60 01/09/21 23:30 56 26 96/62 (73) 95 01/09/21 23:00 26 100/62 Mechanical Ventilator 60 01/09/21 23:00 26 Mechanical Ventilator 60 01/09/21 23:00 61 26 109/75 (86) 95 01/09/21 22:49 85 26 125/75 60 01/09/21 22:30 62 26 93/59 (70) 94 01/09/21 22:00 60 97/60 Mechanical Ventilator 60 01/09/21 22:00 26 Mechanical Ventilator 60 01/09/21 22:00 100.5 81 25 97/60 (72) 92 01/09/21 21:30 85 25 110/63 (79) 91 01/09/21 21:00 26 112/61 Mechanical Ventilator 60 01/09/21 21:00 26 Mechanical Ventilator 60 01/09/21 21:00 94 22 122/71 (88) 94 01/09/21 20:49 101.0 01/09/21 20:30 76 23 119/52 (74) 95 01/09/21 20:00 79 01/09/21 20:00 60 01/09/21 20:00 26 126/76 Mechanical Ventilator 60 01/09/21 20:00 26 Mechanical Ventilator 60 01/09/21 20:00 102.5 89 23 115/69 (84) 95 01/09/21 19:00 84 26 124/72 (89) 96 01/09/21 19:00 26 101/63 Mechanical Ventilator 60 01/09/21 19:00 26 Mechanical Ventilator 60 01/09/21 18:30 85 26 60 01/09/21 18:00 85 26 135/78 (97) 96 01/09/21 18:00 26 135/78 Mechanical Ventilator 60 01/09/21 18:00 26 Mechanical Ventilator 60 01/09/21 18:00 83 26 135/78 (97) 95 01/09/21 17:38 99 26 01/09/21 17:00 26 118/68 Mechanical Ventilator 60 01/09/21 17:00 26 Mechanical Ventilator 60 01/09/21 17:00 90 26 118/68 (85) 95 01/09/21 16:00 90 01/09/21 16:00 99.0 01/09/21 16:00 89 26 129/75 (93) 95 01/09/21 16:00 60 01/09/21 16:00 26 129/75 Mechanical Ventilator 60 01/09/21 16:00 26 Mechanical Ventilator 60 01/09/21 15:23 88 26 60 01/09/21 15:00 84 26 132/73 (92) 96 01/09/21 15:00 26 132/73 Mechanical Ventilator 60 01/09/21 15:00 26 Mechanical Ventilator 60 01/09/21 14:00 84 26 138/74 (95) 96 01/09/21 14:00 26 138/74 Mechanical Ventilator 60 01/09/21 14:00 26 Mechanical Ventilator 60 01/09/21 13:26 85 26 60 01/09/21 13:00 83 26 137/75 (95) 97 01/09/21 13:00 26 137/75 Mechanical Ventilator 60 01/09/21 13:00 26 Mechanical Ventilator 60 01/09/21 12:11 26 140/81 Mechanical Ventilator 60 01/09/21 12:10 26 Mechanical Ventilator 60 01/09/21 12:00 99.0 85 26 140/81 (100) 96 01/09/21 12:00 26 140/81 Mechanical Ventilator 60 01/09/21 12:00 26 Mechanical Ventilator 60 01/09/21 12:00 85 01/09/21 12:00 60 01/09/21 11:16 60 01/09/21 11:16 80 26 60 01/09/21 11:00 82 26 133/72 (92) 97 01/09/21 11:00 26 133/72 Mechanical Ventilator 70 01/09/21 11:00 26 Mechanical Ventilator 70 01/09/21 10:00 85 25 129/73 (91) 97 01/09/21 10:00 25 129/73 Mechanical Ventilator 70 01/09/21 10:00 25 Mechanical Ventilator 70 01/09/21 09:58 70 01/09/21 09:58 84 26 70 01/09/21 09:45 93 26 102/63 (76) 95 01/09/21 09:30 87 26 120/68 (85) 96 01/09/21 09:15 86 24 120/69 (86) 97 01/09/21 09:13 85 26 70 01/09/21 09:13 70 01/09/21 09:00 26 121/72 Mechanical Ventilator 100 01/09/21 09:00 26 Mechanical Ventilator 100 01/09/21 09:00 86 26 121/72 (88) 95 01/09/21 08:30 87 26 124/70 (88) 97 01/09/21 08:00 Mechanical Ventilator 01/09/21 08:00 100 01/09/21 08:00 86 26 124/74 (91) 97 01/09/21 08:00 26 124/74 Mechanical Ventilator 100 01/09/21 08:00 26 Mechanical Ventilator 100 01/09/21 07:42 87 01/09/21 07:30 87 26 124/70 (88) 97 01/09/21 07:22 76 26 100 Intake and Output 01/09/21 01/10/21 19:00 07:00 Intake Total 1786.17 ml 1076.25 ml Output Total 495 ml 680 ml Balance 1291.17 ml 396.25 ml Free Water 40 ml IV Total 1786.17 ml 856.25 ml Tube Feeding 0 ml 180 ml Output Urine Total 495 ml 680 ml Microbiology Date/Time Source Procedure Growth Status 01/07/21 14:55 Sputum Gram Stain - Final Complete 01/07/21 14:55 Sputum Culture - Final Yasmine Albicans Complete Laboratory Tests 01/09/21 08:56: Arterial Blood pH 7.368, Arterial Blood Partial Pressure CO2 49.5H, Arterial Blood Partial Pressure O2 296.9H, Arterial Blood HCO3 27.8H, Arterial Blood Oxygen Saturation 99.4, Arterial Blood Base Excess 1.7, Miguelito Test Positive 01/09/21 13:28: Arterial Blood pH 7.390, Arterial Blood Partial Pressure CO2 42.8, Arterial Bloo d Partial Pressure O2 141.4H, Arterial Blood HCO3 25.3, Arterial Blood Oxygen Saturation 98.6, Arterial Blood Base Excess 0.2, Miguelito Test Positive 01/10/21 03:30: White Blood Count 11.2H, Red Blood Count 4.78, Hemoglobin 13.6L, Hematocrit 44.4, Mean Corpuscular Volume 93, Mean Corpuscular Hemoglobin 28.5, Mean Corpuscular Hemoglobin Concent 30.7L, Red Cell Distribution Width 14.3, Platelet Count 146L, Mean Platelet Volume 9.0, Neutrophils (%) (Auto) 79.4H, Lymphocytes (%) (Auto) 7.4L, Monocytes (%) (Auto) 9.7, Eosinophils (%) (Auto) 0.0, Basophils (%) (Auto) 3.5H, Prothrombin Time 18.1H, Prothromb Time International Ratio 1.7H , Sodium Level 149H, Potassium Level 4.5, Chloride Level 113H, Carbon Dioxide Level 29, Anion Gap 7, Blood Urea Nitrogen 21H, Creatinine 0.9, Estimat Glomerular Filtration Rate > 60, Glucose Level 287H, Calcium Level 8.2L, Phosphorus Level 2.9, Magnesium Level 2.4, Total Bilirubin 0.7, Aspartate Amino Transf (AST/SGOT) 40H, Alanine Aminotransferase (ALT/SGPT) 24, Alkaline Phosphatase 56, Total Protein 6.1L, Albumin 1.9L, Globulin 4.2, Albumin/Globulin Ratio 0.5L Current Medications Medications (Trade) Dose Ordered Sig/Johnny Route PRN Reason Start Time Stop Time Status Last Admin Dose Admin Acetaminophen (Tylenol) 650 mg Q6H PRN NG Temp >100.5 01/09/21 09:15 02/08/21 09:14 01/09/21 20:19 Acetaminophen (Tylenol) 650 mg Q6H PRN NG Mild Pain (Pain Scale 1-3) 01/09/21 09:15 02/08/21 09:14 Albuterol Sulfate (Proventil MDI) 2 puff Q6HRT INH 01/02/21 19:00 04/02/21 18:59 01/10/21 05:29 Benztropine Mesylate (Cogentin) 1 mg EVERY 12 HOURS NG 01/09/21 09:15 02/01/21 09:14 Chlorhexidine Gluconate (Myranda-Hex 2%) 1 applic DAILY@2000 TOPIC 01/07/21 20:00 04/07/21 19:59 01/09/21 20:19 Dextrose (Dextrose 50%) 25 ml Q30M PRN IV Hypoglycemia 01/06/21 23:45 04/06/21 23:44 Dextrose (Dextrose 50%) 50 ml Q30M PRN IV Hypoglycemia 01/06/21 23:45 04/06/21 23:44 Divalproex Sodium (Depakote) 500 mg EVERY 12 HOURS ORAL 01/02/21 09:00 02/01/21 08:59 01/09/21 20:20 Fentanyl Citrate 250 ml @ 1 mls/hr Q24H IV 01/09/21 04:30 01/11/21 04:29 01/09/21 23:36 Insulin Aspart (NovoLOG) EVERY 6 HOURS SUBQ 01/09/21 12:00 04/04/21 16:29 01/10/21 06:16 Ipratropium [place] (Atrovent Inh) 1 puffs Q6HRT INH 01/02/21 19:00 02/01/21 18:59 01/10/21 05:29 Lorazepam (Ativan 2mg/ml 1ml) 1 mg Q6H PRN IV For Anxiety 01/06/21 16:30 01/13/21 20:59 01/09/21 22:49 Methylprednisolone Sodium Succinate (Solu-MEDROL) 40 mg EVERY 12 HOURS IVP 01/02/21 09:00 04/02/21 08:59 01/09/21 20:19 Midazolam HCl 100 mg/Sodium Chloride 200 ml @ 0 mls/hr Q24H PRN IV Agitation 01/08/21 21:00 01/10/21 20:59 01/09/21 23:37 Ondansetron HCl (Zofran) 4 mg Q4H PRN IVP Nausea & Vomiting 01/02/21 08:15 02/01/21 08:14 Pantoprazole (Protonix) 40 mg Q12HR IVP 01/08/21 21:00 02/06/21 08:59 01/09/21 20:19 Piperacillin Sod/ Tazobactam Sod 3.375 gm/Sodium Chloride 110 ml @ 27.5 mls/hr EVERY 8 HOURS IVPB 01/09/21 14:00 01/14/21 13:59 01/10/21 06:15 Quetiapine Fumarate (SEROqueL) 200 mg DAILY NG 01/09/21 09:15 02/23/21 09:14 Risperidone (RisperDAL) 0.5 mg EVERY 12 HOURS NG 01/09/21 09:15 02/16/21 09:14 Sodium Chloride 1,000 ml @ 75 mls/hr [id number] IV 01/08/21 11:00 02/07/21 10:59 01/10/21 03:16 Warfarin Sodium (Coumadin per pharmacy) 1 ea DAILY PRN MISC Per rx protocol 01/02/21 08:30 02/01/21 08:29 Assessment/Plan Assessment/Plan Pulmonary CCM Progress Note HPI Patient is a 60 man with prior h/o COPD, CPS/bipolar DO, 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 ID following and started on CTx/Azithro + REM + SM 40 IV BID, CXR with bilateral infiltrates,ETT appropriate. Proning as tolerated, ABG noted Sedated in ICU on Ventilator, has OGT/central line On pressors PRN PEEP reduced to 10,maintaining O2 sats, FIO2 being weaned Allergies: Coded Allergies: No Known Allergies (Unverified , 01/02/21) PMH: COPD, CPS/bipolar DO, prior DVT/PE on AC, NHR, DM2, HTN and hydrocephalus Physical Exam Deferred Covid19 Vital Signs noted Laboratory Tests noted Imaging noted Height (Feet): 5 Height (Inches): 5.00 Weight (Pounds): 233 Medications Medications noted Assessment/Plan Problem List: (1) Pneumonia due to COVID-19 virus ICD Codes: U07.1 - COVID-19; J12.82 - Pneumonia due to coronavirus disease 2018 SNOMED: 268193329423308370 (2) Acute hypercapnic respiratory failure ICD Codes: J96.02 - Acute respiratory failure with hypercapnia SNOMED: 338945305 (3) Respiratory failure with hypoxia ICD Codes: J96.91 - Respiratory failure, unspecified with hypoxia SNOMED: 04467242543910452 Qualifiers: Qualified Codes: J96.01 - Acute respiratory failure with hypoxia (4) COPD (chronic obstructive pulmonary disease) ICD Codes: J44.9 - Chronic obstructive pulmonary disease, unspecified SNOMED: 69830959 (5) History of deep venous thrombosis or pulmonary embolus SNOMED: 828955729 (6) Obesity ICD Codes: E66.9 - Obesity, unspecified SNOMED: 314926669, 971236311 (7) Essential hypertension ICD Codes: I10 - Essential (primary) hypertension SNOMED: 78346180 (8) Diabetes mellitus type 2 in obese ICD Codes: E11.69 - Type 2 diabetes mellitus with other specified complication; E66.9 - Obesity, unspecified SNOMED: 29176527 (9) History of hydrocephalus ICD Codes: Z86.69 - Personal history of other diseases of the nervous system and sense organs SNOMED: 354104545 (10) Schizophrenia ICD Codes: F20.9 - Schizophrenia, unspecified SNOMED: 21723086 (11) Bipolar 1 disorder ICD Codes: F31.9 - Bipolar disorder, unspecified SNOMED: 459263153 (12) Anticoagulant long-term use ICD Codes: 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
--- NOTE | 2021-01-10 08:19 | Infectious Diseases Prog Note ---
Assessment/Plan 60yo M with: COVID pna, severe Acute hypoxia 2/2 COVID pna >> intubated 01/06 Febrile to 103 Normal WBC Elevated AST 51 2/2 Tested positive for COVID at SNF 2/ COVID PCR positive / BCx NTD CXR: Multifocal pna MRSA nares neg / Intubated in ICU CXR: 1. Appropriately positioned endotracheal and enteric tubes. 2. Stable bilateral airspace disease. 01/07 Resp cx +Yasmine albicans (colonizer) 01/10 BCx ordered CXR ordered Cr 1.1 HIV screen neg PMH: DM2 COPD HTN SNF resident Plan: Cont Zosyn #2 given critical illness, f/u resp cx Cont steroids #9/10, on methylpred 40 IV q12 BCx CXR given fever 01/09 SP CTX #7 01/07 SP azithro #5, RDV #5 This institution does not have access to convalescent plasma and only recommended to give in setting of clinical trial Monitor CBC/CMP Monitor temp curve, hemodynamics Monitor resp status D/w RN Thank you for this consult. [facility] will continue to follow. Subjective Allergies: Coded Allergies: No Known Allergies (Unverified , 01/02/21) Tmax 101 Sedated on vent FiO2 60% PEEP 10 - improved Levophed off since last night Proned WBC 11.2 Objective Last 24 Hour Vital Signs Date Time Temp Pulse Resp B/P (MAP) Pulse Ox O2 Delivery O2 Flow Rate FiO2 01/10/21 07:52 71 26 60 01/10/21 06:00 78 26 101/68 (79) 96 01/10/21 06:00 26 103/75 Mechanical Ventilator 100 01/10/21 06:00 26 Mechanical Ventilator 100 01/10/21 05:30 82 26 93/56 (68) 95 01/10/21 05:00 72 26 104/71 (82) 95 01/10/21 05:00 26 102/62 Mechanical Ventilator 100 01/10/21 05:00 26 Mechanical Ventilator 100 01/10/21 04:30 72 26 103/71 (82) 95 01/10/21 04:00 100 01/10/21 04:00 26 103/71 Mechanical Ventilator 100 01/10/21 04:00 0 Mechanical Ventilator 100 01/10/21 04:00 99.4 73 26 103/66 (78) 94 01/10/21 04:00 72 01/10/21 03:00 26 100/63 Mechanical Ventilator 100 01/10/21 03:00 26 Mechanical Ventilator 100 01/10/21 03:00 76 26 100/67 (78) 90 01/10/21 02:30 79 26 104/72 (83) 90 01/10/21 02:06 95 20 97/63 (74) 87 01/10/21 02:00 99.2 99 20 100/59 (73) 84 01/10/21 02:00 26 100/67 Mechanical Ventilator 100 01/10/21 02:00 26 Mechanical Ventilator 26 01/10/21 02:00 100 01/10/21 01:30 84 26 101/65 (77) 93 01/10/21 01:10 87 27 60 01/10/21 01:00 26 93/53 Mechanical Ventilator 60 01/10/21 01:00 26 Mechanical Ventilator 60 01/10/21 01:00 57 26 119/77 (91) 95 01/10/21 00:30 54 26 92/69 (77) 95 01/10/21 00:00 60 01/10/21 00:00 99.0 57 26 123/76 (92) 95 01/10/21 00:00 26 98/55 Mechanical Ventilator 60 01/10/21 00:00 26 Mechanical Ventilator 60 01/10/21 00:00 56 01/09/21 23:37 26 Mechanical Ventilator 60 01/09/21 23:37 65 26 123/76 94 01/09/21 23:36 26 109/75 Mechanical Ventilator 60 01/09/21 23:30 56 26 96/62 (73) 95 01/09/21 23:00 26 100/62 Mechanical Ventilator 60 01/09/21 23:00 26 Mechanical Ventilator 60 01/09/21 23:00 61 26 109/75 (86) 95 01/09/21 22:49 85 26 125/75 60 01/09/21 22:30 62 26 93/59 (70) 94 01/09/21 22:00 60 97/60 Mechanical Ventilator 60 01/09/21 22:00 26 Mechanical Ventilator 60 01/09/21 22:00 100.5 81 25 97/60 (72) 92 01/09/21 21:30 85 25 110/63 (79) 91 01/09/21 21:00 26 112/61 Mechanical Ventilator 60 01/09/21 21:00 26 Mechanical Ventilator 60 01/09/21 21:00 94 22 122/71 (88) 94 01/09/21 20:49 101.0 01/09/21 20:30 76 23 119/52 (74) 95 01/09/21 20:00 79 01/09/21 20:00 60 01/09/21 20:00 26 126/76 Mechanical Ventilator 60 01/09/21 20:00 26 Mechanical Ventilator 60 01/09/21 20:00 102.5 89 23 115/69 (84) 95 01/09/21 19:00 84 26 124/72 (89) 96 01/09/21 19:00 26 101/63 Mechanical Ventilator 60 01/09/21 19:00 26 Mechanical Ventilator 60 01/09/21 18:30 85 26 60 01/09/21 18:00 85 26 135/78 (97) 96 01/09/21 18:00 26 135/78 Mechanical Ventilator 60 01/09/21 18:00 26 Mechanical Ventilator 60 01/09/21 18:00 83 26 135/78 (97) 95 01/09/21 17:38 99 26 01/09/21 17:00 26 118/68 Mechanical Ventilator 60 01/09/21 17:00 26 Mechanical Ventilator 60 01/09/21 17:00 90 26 118/68 (85) 95 01/09/21 16:00 90 01/09/21 16:00 99.0 01/09/21 16:00 89 26 129/75 (93) 95 01/09/21 16:00 60 01/09/21 16:00 26 129/75 Mechanical Ventilator 60 01/09/21 16:00 26 Mechanical Ventilator 60 01/09/21 15:23 88 26 60 01/09/21 15:00 84 26 132/73 (92) 96 01/09/21 15:00 26 132/73 Mechanical Ventilator 60 01/09/21 15:00 26 Mechanical Ventilator 60 01/09/21 14:00 84 26 138/74 (95) 96 01/09/21 14:00 26 138/74 Mechanical Ventilator 60 01/09/21 14:00 26 Mechanical Ventilator 60 01/09/21 13:26 85 26 60 01/09/21 13:00 83 26 137/75 (95) 97 01/09/21 13:00 26 137/75 Mechanical Ventilator 60 01/09/21 13:00 26 Mechanical Ventilator 60 01/09/21 12:11 26 140/81 Mechanical Ventilator 60 01/09/21 12:10 26 Mechanical Ventilator 60 01/09/21 12:00 99.0 85 26 140/81 (100) 96 01/09/21 12:00 26 140/81 Mechanical Ventilator 60 01/09/21 12:00 26 Mechanical Ventilator 60 01/09/21 12:00 85 01/09/21 12:00 60 01/09/21 11:16 60 01/09/21 11:16 80 26 60 01/09/21 11:00 82 26 133/72 (92) 97 01/09/21 11:00 26 133/72 Mechanical Ventilator 70 01/09/21 11:00 26 Mechanical Ventilator 70 01/09/21 10:00 85 25 129/73 (91) 97 01/09/21 10:00 25 129/73 Mechanical Ventilator 70 01/09/21 10:00 25 Mechanical Ventilator 70 01/09/21 09:58 70 01/09/21 09:58 84 26 70 01/09/21 09:45 93 26 102/63 (76) 95 01/09/21 09:30 87 26 120/68 (85) 96 01/09/21 09:15 86 24 120/69 (86) 97 01/09/21 09:13 85 26 70 01/09/21 09:13 70 01/09/21 09:00 26 121/72 Mechanical Ventilator 100 01/09/21 09:00 26 Mechanical Ventilator 100 01/09/21 09:00 86 26 121/72 (88) 95 01/09/21 08:30 87 26 124/70 (88) 97 Height (Feet): 5 Height (Inches): 5.00 Weight (Pounds): 233 Gen: NAD HEENT: NCAT, ETT Pulm: BL chest rise, proned Ext: No c/c/e Skin: No visible rashes Neuro: Sedated Microbiology Date/Time Source Procedure Growth Status 01/07/21 14:55 Sputum Gram Stain - Final Complete 01/07/21 14:55 Sputum Culture - Final Yasmine Albicans Complete Laboratory Tests Test 01/09/21 08:56 01/09/21 13:01/10/21 03:30 Arterial Blood pH 7.368 (7.350-7.450) 7.390 (7.350-7.450) Arterial Blood Partial Pressure CO2 49.5 mmHg (35.0-45.0) H 42.8 mmHg (35.0-45.0) Arterial Blood Partial Pressure O2 296.9 mmHg (75.0-100.0) H 141.4 mmHg (75.0-100.0) H Arterial Blood HCO3 27.8 mmol/L (22.0-26.0) H 25.3 mmol/L (22.0-26.0) Arterial Blood Oxygen Saturation 99.4 % (95-100) 98.6 % (95-100) Arterial Blood Base Excess 1.7 (-2-2) 0.2 (-2-2) Miguelito Test Positive Positive White Blood Count 11.2 K/UL (4.8-10.8) H Red Blood Count 4.78 M/UL (4.70-6.10) Hemoglobin 13.6 G/DL (14.2-18.0) L Hematocrit 44.4 % (42.0-52.0) Mean Corpuscular Volume 93 FL (80-99) Mean Corpuscular Hemoglobin 28.5 PG (27.0-31.0) Mean Corpuscular Hemoglobin Concent 30.7 G/DL (32.0-36.0) L Red Cell Distribution Width 14.3 % (11.6-14.8) Platelet Count 146 K/UL (150-450) L Mean Platelet Volume 9.0 FL (6.5-10.1) Neutrophils (%) (Auto) 79.4 % (45.0-75.0) H Lymphocytes (%) (Auto) 7.4 % (20.0-45.0) L Monocytes (%) (Auto) 9.7 % (1.0-10.0) Eosinophils (%) (Auto) 0.0 % (0.0-3.0) Basophils (%) (Auto) 3.5 % (0.0-2.0) H Prothrombin Time 18.1 SEC (9.30-11.50) H Prothromb Time International Ratio 1.7 (0.9-1.1) H Sodium Level 149 MMOL/L (136-145) H Potassium Level 4.5 MMOL/L (3.5-5.1) Chloride Level 113 MMOL/L (98-107) H Carbon Dioxide Level 29 MMOL/L (21-32) Anion Gap 7 mmol/L (5-15) Blood Urea Nitrogen 21 mg/dL (7-18) H Creatinine 0.9 MG/DL (0.55-1.30) Estimat Glomerular Filtration Rate > 60 mL/min (>60) Glucose Level 287 MG/DL (74-106) H Calcium Level 8.2 MG/DL (8.5-10.1) L Phosphorus Level 2.9 MG/DL (2.5-4.9) Magnesium Level 2.4 MG/DL (1.8-2.4) Total Bilirubin 0.7 MG/DL (0.2-1.0) Aspartate Amino Transf (AST/SGOT) 40 U/L (15-37) H Alanine Aminotransferase (ALT/SGPT) 24 U/L (12-78) Alkaline Phosphatase 56 U/L (46-116) Total Protein 6.1 G/DL (6.4-8.2) L Albumin 1.9 G/DL (3.4-5.0) L Globulin 4.2 g/dL Albumin/Globulin Ratio 0.5 (1.0-2.7) L Current Medications Medications (Trade) Dose Ordered Sig/Johnny Route PRN Reason Start Time Stop Time Status Last Admin Dose Admin Acetaminophen (Tylenol) 650 mg Q6H PRN NG Temp >100.5 01/09/21 09:15 02/08/21 09:14 01/09/21 20:19 Acetaminophen (Tylenol) 650 mg Q6H PRN NG Mild Pain (Pain Scale 1-3) 01/09/21 09:15 02/08/21 09:14 Albuterol Sulfate (Proventil MDI) 2 puff Q6HRT INH 01/02/21 19:00 04/02/21 18:59 01/10/21 07:52 Benztropine Mesylate (Cogentin) 1 mg EVERY 12 HOURS NG 01/09/21 09:15 02/01/21 09:14 Chlorhexidine Gluconate (Myranda-Hex 2%) 1 applic DAILY@2000 TOPIC 01/07/21 20:00 04/07/21 19:59 01/09/21 20:19 Dextrose (Dextrose 50%) 25 ml Q30M PRN IV Hypoglycemia 01/06/21 23:45 04/06/21 23:44 Dextrose (Dextrose 50%) 50 ml Q30M PRN IV Hypoglycemia 01/06/21 23:45 04/06/21 23:44 Divalproex Sodium (Depakote) 500 mg EVERY 12 HOURS ORAL 01/02/21 09:00 02/01/21 08:59 01/09/21 20:20 Fentanyl Citrate 250 ml @ 1 mls/hr Q24H IV 01/09/21 04:30 01/11/21 04:29 01/09/21 23:36 Insulin Aspart (NovoLOG) EVERY 6 HOURS SUBQ 01/09/21 12:00 04/04/21 16:29 01/10/21 06:16 Ipratropium [place] (Atrovent Inh) 1 puffs Q6HRT INH 01/02/21 19:00 02/01/21 18:59 01/10/21 07:53 Lorazepam (Ativan 2mg/ml 1ml) 1 mg Q6H PRN IV For Anxiety 01/06/21 16:30 01/13/21 20:59 01/09/21 22:49 Methylprednisolone Sodium Succinate (Solu-MEDROL) 40 mg EVERY 12 HOURS IVP 01/02/21 09:00 04/02/21 08:59 01/09/21 20:19 Midazolam HCl 100 mg/Sodium Chloride 200 ml @ 0 mls/hr Q24H PRN IV Agitation 01/08/21 21:00 01/10/21 20:59 01/09/21 23:37 Ondansetron HCl (Zofran) 4 mg Q4H PRN IVP Nausea & Vomiting 01/02/21 08:15 02/01/21 08:14 Pantoprazole (Protonix) 40 mg Q12HR IVP 01/08/21 21:00 02/06/21 08:59 01/09/21 20:19 Piperacillin Sod/ Tazobactam Sod 3.375 gm/Sodium Chloride 110 ml @ 27.5 mls/hr EVERY 8 HOURS IVPB 01/09/21 14:00 01/14/21 13:59 01/10/21 06:15 Quetiapine Fumarate (SEROqueL) 200 mg DAILY NG 01/09/21 09:15 02/23/21 09:14 Risperidone (RisperDAL) 0.5 mg EVERY 12 HOURS NG 01/09/21 09:15 02/16/21 09:14 Sodium Chloride 1,000 ml @ 75 mls/hr [id number] IV 01/08/21 11:00 02/07/21 10:59 01/10/21 03:16 Warfarin Sodium (Coumadin per pharmacy) 1 ea DAILY PRN MISC Per rx protocol 01/02/21 08:30 02/01/21 08:29 Rneetta Gomez M.D. Jan 10, 2021 08:19
[2021-01-10] MEDS: fentaNYL 2500mcg/NS 250ml 250 ML IV SCH ×2 (08:42→22:12)
[2021-01-10] MEDS: Solu-MEDROL 40mg Inj IVP SCH ×2 (08:43→20:12)
[2021-01-10] MEDS: Midazolam HCl 50mg/10ml vial 100 MG in NS 180 ML IV PRN (08:43)
[2021-01-10] MEDS: Pantoprazole Inj IVP SCH ×2 (08:43→20:13)
[2021-01-10] MEDS: Benztropine 1mg tab NG SCH ×2 (08:59→20:13)
[2021-01-10] MEDS: Depakote 500mg tab ORAL SCH ×2 (08:59→20:13)
[2021-01-10] MEDS: QUEtiapine 200mg tab NG SCH (08:59)
--- NOTE | 2021-01-10 12:38 | Nephrology Progress Note ---
Assessment/Plan Problem List: (1) Hyperkalemia (2) Pneumonia due to COVID-19 virus (3) Respiratory failure with hypoxia (4) Obesity (5) Schizophrenia (6) DMII (diabetes mellitus, type 2) Assessment Hyperkalemia Stable renal parameters Hyperglycemia Covid pneumonia due to COVID-19 virus Acute respiratory failure with hypoxia requiring mechanical ventilation History of COPD History of DVT, pulmonary emboli Obese Hypertension History of diabetes Psych condition, schizophrenia, bipolar disease Plan January 10: Labs reviewed. Renal parameters stable. Continue per consultants. Change IV to half-normal saline Kayexalate via NG tube for high potassium Monitor electrolytes and renal parameters Per orders, per consultants Subjective ROS Limited/Unobtainable: Yes Objective Objective Last 24 Hour Vital Signs Date Time Temp Pulse Resp B/P (MAP) Pulse Ox O2 Delivery O2 Flow Rate FiO2 01/10/21 12:00 60 01/10/21 12:00 99.4 68 22 115/75 (88) 94 01/10/21 11:30 62 22 123/81 (95) 94 01/10/21 11:23 61 22 60 01/10/21 11:00 26 119/77 Mechanical Ventilator 60 01/10/21 11:00 26 Mechanical Ventilator 60 01/10/21 11:00 64 26 119/77 (91) 93 01/10/21 10:30 66 26 114/81 (92) 93 01/10/21 10:00 72 25 113/73 (86) 93 01/10/21 10:00 26 113/73 Mechanical Ventilator 60 01/10/21 10:00 26 Mechanical Ventilator 60 01/10/21 09:45 26 105/72 Mechanical Ventilator 60 01/10/21 09:45 26 Mechanical Ventilator 60 01/10/21 09:30 26 105/72 Mechanical Ventilator 60 01/10/21 09:30 26 Mechanical Ventilator 60 01/10/21 09:30 72 26 105/72 (83) 93 01/10/21 09:15 26 108/68 Mechanical Ventilator 60 01/10/21 09:15 26 Mechanical Ventilator 60 01/10/21 09:00 26 108/68 Mechanical Ventilator 60 01/10/21 09:00 26 Mechanical Ventilator 60 01/10/21 09:00 71 26 108/68 (81) 93 01/10/21 08:43 26 Mechanical Ventilator 60 01/10/21 08:42 26 103/69 Mechanical Ventilator 60 01/10/21 08:41 26 103/69 Mechanical Ventilator 60 01/10/21 08:30 72 26 103/69 (80) 93 01/10/21 08:00 Mechanical Ventilator 01/10/21 08:00 60 01/10/21 08:00 98.4 73 26 107/72 (84) 93 01/10/21 08:00 26 107/72 Mechanical Ventilator 100 01/10/21 07:52 71 26 60 01/10/21 07:30 71 26 109/71 (84) 96 01/10/21 07:00 73 26 108/74 (85) 96 01/10/21 07:00 26 108/74 Mechanical Ventilator 100 01/10/21 07:00 26 Mechanical Ventilator 100 01/10/21 06:00 78 26 101/68 (79) 96 01/10/21 06:00 26 103/75 Mechanical Ventilator 100 01/10/21 06:00 26 Mechanical Ventilator 100 01/10/21 05:30 82 26 93/56 (68) 95 01/10/21 05:00 72 26 104/71 (82) 95 01/10/21 05:00 26 102/62 Mechanical Ventilator 100 01/10/21 05:00 26 Mechanical Ventilator 100 01/10/21 04:30 72 26 103/71 (82) 95 01/10/21 04:00 100 01/10/21 04:00 26 103/71 Mechanical Ventilator 100 01/10/21 04:00 0 Mechanical Ventilator 100 01/10/21 04:00 99.4 73 26 103/66 (78) 94 01/10/21 04:00 72 01/10/21 03:00 26 100/63 Mechanical Ventilator 100 01/10/21 03:00 26 Mechanical Ventilator 100 01/10/21 03:00 76 26 100/67 (78) 90 01/10/21 02:30 79 26 104/72 (83) 90 01/10/21 02:06 95 20 97/63 (74) 87 01/10/21 02:00 99.2 99 20 100/59 (73) 84 01/10/21 02:00 26 100/67 Mechanical Ventilator 100 01/10/21 02:00 26 Mechanical Ventilator 26 01/10/21 02:00 100 01/10/21 01:30 84 26 101/65 (77) 93 01/10/21 01:10 87 27 60 01/10/21 01:00 26 93/53 Mechanical Ventilator 60 01/10/21 01:00 26 Mechanical Ventilator 60 01/10/21 01:00 57 26 119/77 (91) 95 01/10/21 00:30 54 26 92/69 (77) 95 01/10/21 00:00 60 01/10/21 00:00 99.0 57 26 123/76 (92) 95 01/10/21 00:00 26 98/55 Mechanical Ventilator 60 01/10/21 00:00 26 Mechanical Ventilator 60 01/10/21 00:00 56 01/09/21 23:37 26 Mechanical Ventilator 60 01/09/21 23:37 65 26 123/76 94 01/09/21 23:36 26 109/75 Mechanical Ventilator 60 01/09/21 23:30 56 26 96/62 (73) 95 01/09/21 23:00 26 100/62 Mechanical Ventilator 60 01/09/21 23:00 26 Mechanical Ventilator 60 01/09/21 23:00 61 26 109/75 (86) 95 01/09/21 22:49 85 26 125/75 60 01/09/21 22:30 62 26 93/59 (70) 94 01/09/21 22:00 60 97/60 Mechanical Ventilator 60 01/09/21 22:00 26 Mechanical Ventilator 60 01/09/21 22:00 100.5 81 25 97/60 (72) 92 01/09/21 21:30 85 25 110/63 (79) 91 01/09/21 21:00 26 112/61 Mechanical Ventilator 60 01/09/21 21:00 26 Mechanical Ventilator 60 01/09/21 21:00 94 22 122/71 (88) 94 01/09/21 20:49 101.0 01/09/21 20:30 76 23 119/52 (74) 95 01/09/21 20:00 79 01/09/21 20:00 60 01/09/21 20:00 26 126/76 Mechanical Ventilator 60 01/09/21 20:00 26 Mechanical Ventilator 60 01/09/21 20:00 102.5 89 23 115/69 (84) 95 01/09/21 19:00 84 26 124/72 (89) 96 01/09/21 19:00 26 101/63 Mechanical Ventilator 60 01/09/21 19:00 26 Mechanical Ventilator 60 01/09/21 18:30 85 26 60 01/09/21 18:00 85 26 135/78 (97) 96 01/09/21 18:00 26 135/78 Mechanical Ventilator 60 01/09/21 18:00 26 Mechanical Ventilator 60 01/09/21 18:00 83 26 135/78 (97) 95 01/09/21 17:38 99 26 01/09/21 17:00 26 118/68 Mechanical Ventilator 60 01/09/21 17:00 26 Mechanical Ventilator 60 01/09/21 17:00 90 26 118/68 (85) 95 01/09/21 16:00 90 01/09/21 16:00 99.0 01/09/21 16:00 89 26 129/75 (93) 95 01/09/21 16:00 60 01/09/21 16:00 26 129/75 Mechanical Ventilator 60 01/09/21 16:00 26 Mechanical Ventilator 60 01/09/21 15:23 88 26 60 01/09/21 15:00 84 26 132/73 (92) 96 01/09/21 15:00 26 132/73 Mechanical Ventilator 60 01/09/21 15:00 26 Mechanical Ventilator 60 01/09/21 14:00 84 26 138/74 (95) 96 01/09/21 14:00 26 138/74 Mechanical Ventilator 60 01/09/21 14:00 26 Mechanical Ventilator 60 01/09/21 13:26 85 26 60 01/09/21 13:00 83 26 137/75 (95) 97 01/09/21 13:00 26 137/75 Mechanical Ventilator 60 01/09/21 13:00 26 Mechanical Ventilator 60 Intake and Output 01/09/21 01/10/21 19:00 07:00 Intake Total 1786.17 ml 1211.85 ml Output Total 495 ml 805 ml Balance 1291.17 ml 406.85 ml Free Water 40 ml IV Total 1786.17 ml 991.85 ml Tube Feeding 0 ml 180 ml Output Urine Total 495 ml 805 ml Current Medications Medications (Trade) Dose Ordered Sig/Johnny Route PRN Reason Start Time Stop Time Status Last Admin Dose Admin Acetaminophen (Tylenol) 650 mg Q6H PRN NG Temp >100.5 01/09/21 09:15 02/08/21 09:14 01/09/21 20:19 Acetaminophen (Tylenol) 650 mg Q6H PRN NG Mild Pain (Pain Scale 1-3) 01/09/21 09:15 02/08/21 09:14 Albuterol Sulfate (Proventil MDI) 2 puff Q6HRT INH 01/02/21 19:00 04/02/21 18:59 01/10/21 13:38 Benztropine Mesylate (Cogentin) 1 mg EVERY 12 HOURS NG 01/09/21 09:15 02/01/21 09:14 Chlorhexidine Gluconate (Myranda-Hex 2%) 1 applic DAILY@2000 TOPIC 01/07/21 20:00 04/07/21 19:59 01/09/21 20:19 Dextrose (Dextrose 50%) 25 ml Q30M PRN IV Hypoglycemia 01/06/21 23:45 04/06/21 23:44 Dextrose (Dextrose 50%) 50 ml Q30M PRN IV Hypoglycemia 01/06/21 23:45 04/06/21 23:44 Divalproex Sodium (Depakote) 500 mg EVERY 12 HOURS ORAL 01/02/21 09:00 02/01/21 08:59 01/09/21 20:20 Fentanyl Citrate 250 ml @ 1 mls/hr Q24H IV 01/09/21 04:30 01/11/21 04:29 01/10/21 08:42 Insulin Aspart (NovoLOG) EVERY 6 HOURS SUBQ 01/09/21 12:00 04/04/21 16:29 01/10/21 11:37 Ipratropium [place] (Atrovent Inh) 1 puffs Q6HRT INH 01/02/21 19:00 02/01/21 18:59 01/10/21 13:38 Lorazepam (Ativan 2mg/ml 1ml) 1 mg Q6H PRN IV For Anxiety 01/06/21 16:30 01/13/21 20:59 01/09/21 22:49 Methylprednisolone Sodium Succinate (Solu-MEDROL) 40 mg EVERY 12 HOURS IVP 01/02/21 09:00 04/02/21 08:59 01/10/21 08:43 Midazolam HCl 100 mg/Sodium Chloride 200 ml @ 0 mls/hr Q24H PRN IV Agitation 01/08/21 21:00 01/10/21 20:59 01/10/21 08:43 Ondansetron HCl (Zofran) 4 mg Q4H PRN IVP Nausea & Vomiting 01/02/21 08:15 02/01/21 08:14 Pantoprazole (Protonix) 40 mg Q12HR IVP 01/08/21 21:00 02/06/21 08:59 01/10/21 08:43 Piperacillin Sod/ Tazobactam Sod 3.375 gm/Sodium Chloride 110 ml @ 27.5 mls/hr EVERY 8 HOURS IVPB 01/09/21 14:00 01/14/21 13:59 01/10/21 13:52 Quetiapine Fumarate (SEROqueL) 200 mg DAILY NG 01/09/21 09:15 02/23/21 09:14 Risperidone (RisperDAL) 0.5 mg EVERY 12 HOURS NG 01/09/21 09:15 02/16/21 09:14 Sodium Chloride 1,000 ml @ 75 mls/hr [id number] IV 01/08/21 11:00 02/07/21 10:59 01/10/21 03:16 Warfarin Sodium (Coumadin per pharmacy) 1 ea DAILY PRN MISC Per rx protocol 01/02/21 08:30 02/01/21 08:29 Warfarin Sodium (Warfarin Sod) 1 mg COUMADIN ORAL 01/10/21 17:00 01/10/21 19:00 Laboratory Tests 01/09/21 13:28: Arterial Blood pH 7.390, Arterial Blood Partial Pressure CO2 42.8, Arterial Blood Partial Pressure O2 141.4H, Arterial Blood HCO3 25.3, Arterial Blood Oxygen Saturation 98.6, Arterial Blood Base Excess 0.2, Miguelito Test Positive 01/10/21 03:30: White Blood Count 11.2H, Red Blood Count 4.78, Hemoglobin 13.6L, Hematocrit 44.4, Mean Corpuscular Volume 93, Mean Corpuscular Hemoglobin 28.5, Mean Corpuscular Hemoglobin Concent 30.7L, Red Cell Distribution Width 14.3, Platelet Count 146L, Mean Platelet Volume 9.0, Neutrophils (%) (Auto) 79.4H, Lymphocytes (%) (Auto) 7.4L, Monocytes (%) (Auto) 9.7, Eosinophils (%) (Auto) 0.0, Basophils (%) (Auto) 3.5H, Prothrombin Time 18.1H, Prothromb Time International Ratio 1.7H , Sodium Level 149H, Potassium Level 4.5, Chloride Level 113H, Carbon Dioxide Level 29, Anion Gap 7, Blood Urea Nitrogen 21H, Creatinine 0.9, Estimat Glomerular Filtration Rate > 60, Glucose Level 287H, Calcium Level 8.2L, Phosphorus Level 2.9, Magnesium Level 2.4, Total Bilirubin 0.7, Aspartate Amino Transf (AST/SGOT) 40H, Alanine Aminotransferase (ALT/SGPT) 24, Alkaline Phosphatase 56, Total Protein 6.1L, Albumin 1.9L, Globulin 4.2, Albumin/Globulin Ratio 0.5L 01/10/21 09:26: Arterial Blood pH 7.449, Arterial Blood Partial Pressure CO2 37.7, Arterial Blood Partial Pressure O2 73.3L, Arterial Blood HCO3 25.6, Arterial Blood Oxygen Saturation 95.2, Arterial Blood Base Excess 1.7, Miguelito Test Positive Height (Feet): 5 Height (Inches): 5.00 Weight (Pounds): 233 General Appearance: no apparent distress Cardiovascular: normal rate Respiratory/Chest: decreased breath sounds Abdomen: soft Avi Frye MD Jan 10, 2021 12:38
--- NOTE | 2021-01-10 13:53 | Internal Med Progress Note ---
Subjective Physician Name Geovanny Bradley Attending Physician Geovanny Brdaley MD Current Medications Medications (Trade) Dose Ordered Sig/Johnny Route PRN Reason Start Time Stop Time Status Last Admin Dose Admin Acetaminophen (Tylenol) 650 mg Q6H PRN NG Temp >100.5 01/09/21 09:15 02/08/21 09:14 01/09/21 20:19 Acetaminophen (Tylenol) 650 mg Q6H PRN NG Mild Pain (Pain Scale 1-3) 01/09/21 09:15 02/08/21 09:14 Albuterol Sulfate (Proventil MDI) 2 puff Q6HRT INH 01/02/21 19:00 04/02/21 18:59 01/10/21 13:38 Benztropine Mesylate (Cogentin) 1 mg EVERY 12 HOURS NG 01/09/21 09:15 02/01/21 09:14 Chlorhexidine Gluconate (Myranda-Hex 2%) 1 applic DAILY@2000 TOPIC 01/07/21 20:00 04/07/21 19:59 01/09/21 20:19 Dextrose (Dextrose 50%) 25 ml Q30M PRN IV Hypoglycemia 01/06/21 23:45 04/06/21 23:44 Dextrose (Dextrose 50%) 50 ml Q30M PRN IV Hypoglycemia 01/06/21 23:45 04/06/21 23:44 Divalproex Sodium (Depakote) 500 mg EVERY 12 HOURS ORAL 01/02/21 09:00 02/01/21 08:59 01/09/21 20:20 Fentanyl Citrate 250 ml @ 1 mls/hr Q24H IV 01/09/21 04:30 01/11/21 04:29 01/10/21 08:42 Insulin Aspart (NovoLOG) EVERY 6 HOURS SUBQ 01/09/21 12:00 04/04/21 16:29 01/10/21 11:37 Ipratropium [place] (Atrovent Inh) 1 puffs Q6HRT INH 01/02/21 19:00 02/01/21 18:59 01/10/21 13:38 Lorazepam (Ativan 2mg/ml 1ml) 1 mg Q6H PRN IV For Anxiety 01/06/21 16:30 01/13/21 20:59 01/09/21 22:49 Methylprednisolone Sodium Succinate (Solu-MEDROL) 40 mg EVERY 12 HOURS IVP 01/02/21 09:00 04/02/21 08:59 01/10/21 08:43 Midazolam HCl 100 mg/Sodium Chloride 200 ml @ 0 mls/hr Q24H PRN IV Agitation 01/08/21 21:00 01/10/21 20:59 01/10/21 08:43 Ondansetron HCl (Zofran) 4 mg Q4H PRN IVP Nausea & Vomiting 01/02/21 08:15 02/01/21 08:14 Pantoprazole (Protonix) 40 mg Q12HR IVP 01/08/21 21:00 02/06/21 08:59 01/10/21 08:43 Piperacillin Sod/ Tazobactam Sod 3.375 gm/Sodium Chloride 110 ml @ 27.5 mls/hr EVERY 8 HOURS IVPB 01/09/21 14:00 01/14/21 13:59 01/10/21 13:52 Quetiapine Fumarate (SEROqueL) 200 mg DAILY NG 01/09/21 09:15 02/23/21 09:14 Risperidone (RisperDAL) 0.5 mg EVERY 12 HOURS NG 01/09/21 09:15 02/16/21 09:14 Sodium Chloride 1,000 ml @ 75 mls/hr [id number] IV 01/08/21 11:00 02/07/21 10:59 01/10/21 03:16 Warfarin Sodium (Coumadin per pharmacy) 1 ea DAILY PRN MISC Per rx protocol 01/02/21 08:30 02/01/21 08:29 Warfarin Sodium (Warfarin Sod) 1 mg COUMADIN ORAL 01/10/21 17:00 01/10/21 19:00 Allergies: Coded Allergies: No Known Allergies (Unverified , 01/02/21) Subjective in MICU, intubated, remained on ventilation, in prone position, WBC: 11.2 Objective Last Vital Signs Date Time Temp Pulse Resp B/P (MAP) Pulse Ox O2 Delivery O2 Flow Rate FiO2 01/10/21 13:38 73 22 60 01/10/21 12:00 99.4 115/75 (88) 94 01/10/21 11:00 Mechanical Ventilator 01/06/21 19:40 15.0 Laboratory Tests Test 01/10/21 03:30 01/10/21 09:26 White Blood Count 11.2 K/UL (4.8-10.8) H Red Blood Count 4.78 M/UL (4.70-6.10) Hemoglobin 13.6 G/DL (14.2-18.0) L Hematocrit 44.4 % (42.0-52.0) Mean Corpuscular Volume 93 FL (80-99) Mean Corpuscular Hemoglobin 28.5 PG (27.0-31.0) Mean Corpuscular Hemoglobin Concent 30.7 G/DL (32.0-36.0) L Red Cell Distribution Width 14.3 % (11.6-14.8) Platelet Count 146 K/UL (150-450) L Mean Platelet Volume 9.0 FL (6.5-10.1) Neutrophils (%) (Auto) 79.4 % (45.0-75.0) H Lymphocytes (%) (Auto) 7.4 % (20.0-45.0) L Monocytes (%) (Auto) 9.7 % (1.0-10.0) Eosinophils (%) (Auto) 0.0 % (0.0-3.0) Basophils (%) (Auto) 3.5 % (0.0-2.0) H Prothrombin Time 18.1 SEC (9.30-11.50) H Prothromb Time International Ratio 1.7 (0.9-1.1) H Sodium Level 149 MMOL/L (136-145) H Potassium Level 4.5 MMOL/L (3.5-5.1) Chloride Level 113 MMOL/L (98-107) H Carbon Dioxide Level 29 MMOL/L (21-32) Anion Gap 7 mmol/L (5-15) Blood Urea Nitrogen 21 mg/dL (7-18) H Creatinine 0.9 MG/DL (0.55-1.30) Estimat Glomerular Filtration Rate > 60 mL/min (>60) Glucose Level 287 MG/DL (74-106) H Calcium Level 8.2 MG/DL (8.5-10.1) L Phosphorus Level 2.9 MG/DL (2.5-4.9) Magnesium Level 2.4 MG/DL (1.8-2.4) Total Bilirubin 0.7 MG/DL (0.2-1.0) Aspartate Amino Transf (AST/SGOT) 40 U/L (15-37) H Alanine Aminotransferase (ALT/SGPT) 24 U/L (12-78) Alkaline Phosphatase 56 U/L (46-116) Total Protein 6.1 G/DL (6.4-8.2) L Albumin 1.9 G/DL (3.4-5.0) L Globulin 4.2 g/dL Albumin/Globulin Ratio 0.5 (1.0-2.7) L Arterial Blood pH 7.449 (7.350-7.450) Arterial Blood Partial Pressure CO2 37.7 mmHg (35.0-45.0) Arterial Blood Partial Pressure O2 73.3 mmHg (75.0-100.0) L Arterial Blood HCO3 25.6 mmol/L (22.0-26.0) Arterial Blood Oxygen Saturation 95.2 % (95-100) Arterial Blood Base Excess 1.7 (-2-2) Miguelito Test Positive Microbiology Date/Time Source Procedure Growth Status 01/07/21 14:55 Sputum Gram Stain - Final Complete 01/07/21 14:55 Sputum Culture - Final Yasmine Albicans Complete Intake and Output 01/09/21 01/10/21 19:00 07:00 Intake Total 1786.17 ml 1211.85 ml Output Total 495 ml 805 ml Balance 1291.17 ml 406.85 ml Free Water 40 ml IV Total 1786.17 ml 991.85 ml Tube Feeding 0 ml 180 ml Output Urine Total 495 ml 805 ml Objective General: intubated, in the prone position, remained on ventilation. HEENT: NCAT, sclera anicteric, PERRL, ET Tube. Neck: Supple, no significant jugular venous distention, Lungs: mechanical breath sounds,,basal crackles, no Wheeze. Heart: Regular rate and rhythm, normal S1/S2, no murmurs Abdomen: soft, nontender, nondistended. Normoactive bowel sound, obesity. : Ferraro cath. Extremities: Left LE: No Cyanosis , clubbing or edema. Right LE AKA. Neuro: limited secondary to patient's status, patient is sedated. Skin: warm, no rashes or lesions. Assessment/Plan Assessment/Plan (1) Pneumonia due to COVID-19 virus ICD Codes: U07.1 - COVID-19; J12.82 - Pneumonia due to coronavirus disease 2018 SNOMED: 537492545735588932 (2) Acute hypercapnic respiratory failure >> intubated 01/06 ICD Codes: J96.02 - Acute respiratory failure with hypercapnia SNOMED: 123132074 (3) Respiratory failure with hypoxia ICD Codes: J96.91 - Respiratory failure, unspecified with hypoxia SNOMED: 47139042470531596 Qualifiers: Qualified Codes: J96.01 - Acute respiratory failure with hypoxia (4) COPD (chronic obstructive pulmonary disease) ICD Codes: J44.9 - Chronic obstructive pulmonary disease, unspecified SNOMED: 68909370 (5) History of deep venous thrombosis or pulmonary embolus SNOMED: 916786651 (6) Obesity ICD Codes: E66.9 - Obesity, unspecified SNOMED: 577122401, 748157067 (7) Essential hypertension ICD Codes: I10 - Essential (primary) hypertension SNOMED: 42948603 (8) Diabetes mellitus type 2 in obese ICD Codes: E11.69 - Type 2 diabetes mellitus with other specified complication; E66.9 - Obesity, unspecified SNOMED: 50923764 (9) History of hydrocephalus ICD Codes: Z86.69 - Personal history of other diseases of the nervous system and sense organs SNOMED: 001434376 (10) Schizophrenia ICD Codes: F20.9 - Schizophrenia, unspecified SNOMED: 32703936 (11) Bipolar 1 disorder ICD Codes: F31.9 - Bipolar disorder, unspecified SNOMED: 362291152 (12) Anticoagulant long-term use ICD Codes: Z79.01 - detention (current) use of anticoagulants SNOMED: 613571545 Assessment/Plan: Optimize pulmonary hygiene/mobilize as tolerated Prone position On Remdesivir IV Solu-Medrol 40 mg IV BID Abx: Zosyn IV F/U Cx's Monitor volumes and renal function DVT Px: Coumadin Monitor blood glucose level closely. FULL Code Geovanny Bradley MD Jan 10, 2021 13:53
[2021-01-10] MEDS ORDERED: Warfarin Sodium 1mg ORAL SCH (17:00)
[2021-01-10] MEDS: Dyna-Hex 2% Top Sol 2oz TOPIC SCH ×2 (20:12→22:12)
[2021-01-11] VITALS (41 sets, daily range): BP systolic 102–124; BP diastolic 57–79
[2021-01-11] MEDS: Albuterol 90mcg Inhaler 8gm INH SCH ×5 (01:00→23:41)
[2021-01-11] MEDS: Ipratropium Bromide Inhaler INH SCH ×5 (01:00→23:41)
[2021-01-11] MEDS: Midazolam HCl 50mg/10ml vial 100 MG in NS 180 ML IV PRN ×2 (01:00→10:42)
[2021-01-11] MEDS: fentaNYL 2500mcg/NS 250ml 250 ML IV SCH ×3 (04:30→23:13)
[2021-01-11 05:02] LABS: INR 1.8 (0.9-1.1)
[2021-01-11] MEDS: Piperacillin/Tazobactam 3.375 GM in NS 110 ML IVPB SCH ×3 (05:16→21:00)
[2021-01-11] MEDS: NovoLOG Insulin Flexpen SUBQ SCH ×4 (06:29→17:18)
[2021-01-11] MEDS ORDERED: fentaNYL 2500mcg/NS 250ml 250 ML IV SCH (07:15)
--- NOTE | 2021-01-11 07:58 | Infectious Diseases Prog Note ---
Assessment/Plan 60yo M with: COVID pna, severe Acute hypoxia 2/2 COVID pna >> intubated 2/ Febrile to 103 Normal WBC Elevated AST 51 2/2 Tested positive for COVID at SNF 2/3 COVID PCR positive 01/02 BCx NTD CXR: Multifocal pna MRSA nares neg / Intubated in ICU CXR: 1. Appropriately positioned endotracheal and enteric tubes. 2. Stable bilateral airspace disease. 01/07 Resp cx +Yasmine albicans (colonizer) 01/10 BCx ordered CXR ordered Cr 1.1 HIV screen neg PMH: DM2 COPD HTN SNF resident Plan: Cont Zosyn #3 given critical illness Cont steroids #10/, on methylpred 40 IV q12 F/u 01/10 BCx, CXR given fever 01/09 SP CTX #7 01/07 SP azithro #5, RDV #5 This institution does not have access to convalescent plasma and only recommended to give in setting of clinical trial Monitor CBC/CMP Monitor temp curve, hemodynamics Monitor resp status D/w RN Thank you for this consult. [facility] will continue to follow. Subjective Allergies: Coded Allergies: No Known Allergies (Unverified , 01/02/21) AF Sedated on vent 50% PEEP `10 Prone WBC 9.9 Objective Last 24 Hour Vital Signs Date Time Temp Pulse Resp B/P (MAP) Pulse Ox O2 Delivery O2 Flow Rate FiO2 01/11/21 06:15 75 22 95 01/11/21 06:00 76 22 117/73 (88) 95 01/11/21 05:45 76 22 95 01/11/21 05:30 76 22 120/69 (86) 95 01/11/21 05:15 78 22 95 01/11/21 05:08 80 22 50 01/11/21 05:00 77 22 115/74 (88) 95 01/11/21 04:00 97.8 79 22 118/73 (88) 95 01/11/21 04:00 73 01/11/21 04:00 60 01/11/21 03:30 79 22 119/75 (90) 96 01/11/21 03:20 79 22 50 01/11/21 03:00 80 22 117/72 (87) 94 01/11/21 02:30 82 22 115/71 (86) 94 01/11/21 02:00 83 22 116/71 (86) 94 01/11/21 01:32 85 22 118/68 (85) 99 01/11/21 01:00 72 22 122/73 (89) 97 01/11/21 01:00 20 Mechanical Ventilator 01/11/21 01:00 85 22 50 01/11/21 00:30 73 22 121/74 (90) 97 01/11/21 00:00 98.0 72 22 120/70 (87) 97 01/10/21 23:20 72 22 50 01/10/21 23:00 68 22 118/73 (88) 96 01/10/21 22:45 69 22 96 01/10/21 22:30 68 22 119/71 (87) 96 01/10/21 22:15 71 22 96 01/10/21 22:12 20 103/57 Mechanical Ventilator 60 01/10/21 22:00 78 22 103/57 (72) 95 01/10/21 21:45 78 22 95 01/10/21 21:30 74 22 108/69 (82) 95 01/10/21 21:19 76 22 50 01/10/21 21:15 74 22 96 01/10/21 21:00 76 22 108/67 (81) 96 01/10/21 20:45 77 22 96 01/10/21 20:30 79 22 101/58 (72) 96 01/10/21 20:30 79 22 101/58 (72) 96 01/10/21 20:00 97.8 75 22 106/66 (79) 96 01/10/21 20:00 60 01/10/21 20:00 Mechanical Ventilator 01/10/21 20:00 73 01/10/21 19:30 77 22 106/62 (77) 97 01/10/21 19:21 77 22 55 01/10/21 19:00 72 22 112/63 (79) 97 01/10/21 18:00 22 111/72 Mechanical Ventilator 60 01/10/21 18:00 22 Mechanical Ventilator 60 01/10/21 18:00 70 22 111/72 (85) 95 01/10/21 17:30 75 22 108/67 (81) 94 01/10/21 17:00 80 22 01/10/21 17:00 22 98/66 Mechanical Ventilator 60 01/10/21 17:00 22 Mechanical Ventilator 60 01/10/21 17:00 84 15 98/66 (77) 90 01/10/21 16:30 74 22 107/72 (84) 91 01/10/21 16:00 22 106/71 Mechanical Ventilator 60 01/10/21 16:00 22 Mechanical Ventilator 60 01/10/21 16:00 73 01/10/21 16:00 98.2 72 22 106/71 (83) 93 01/10/21 16:00 60 01/10/21 15:30 74 22 106/70 (82) 93 01/10/21 15:08 73 22 60 01/10/21 15:00 74 22 105/68 (80) 93 01/10/21 15:00 22 105/68 Mechanical Ventilator 60 01/10/21 15:00 22 Mechanical Ventilator 60 01/10/21 14:30 74 22 109/68 (82) 93 01/10/21 14:00 22 108/70 Mechanical Ventilator 60 01/10/21 14:00 22 Mechanical Ventilator 60 01/10/21 14:00 75 22 108/70 (83) 93 01/10/21 13:38 73 22 60 01/10/21 13:30 72 22 113/74 (87) 94 01/10/21 13:00 72 22 116/75 (89) 94 01/10/21 13:00 22 116/75 Mechanical Ventilator 60 01/10/21 13:00 22 Mechanical Ventilator 60 01/10/21 12:30 68 22 112/75 (87) 94 01/10/21 12:00 60 01/10/21 12:00 99.4 68 22 115/75 (88) 94 01/10/21 12:00 22 115/75 Mechanical Ventilator 60 01/10/21 12:00 22 Mechanical Ventilator 60 01/10/21 12:00 69 01/10/21 11:30 62 22 123/81 (95) 94 01/10/21 11:23 61 22 60 01/10/21 11:00 26 119/77 Mechanical Ventilator 60 01/10/21 11:00 26 Mechanical Ventilator 60 01/10/21 11:00 64 26 119/77 (91) 93 01/10/21 10:30 66 26 114/81 (92) 93 01/10/21 10:00 72 25 113/73 (86) 93 01/10/21 10:00 26 113/73 Mechanical Ventilator 60 01/10/21 10:00 26 Mechanical Ventilator 60 01/10/21 09:45 26 105/72 Mechanical Ventilator 60 01/10/21 09:45 26 Mechanical Ventilator 60 01/10/21 09:30 26 105/72 Mechanical Ventilator 60 01/10/21 09:30 26 Mechanical Ventilator 60 01/10/21 09:30 72 26 105/72 (83) 93 01/10/21 09:15 26 108/68 Mechanical Ventilator 60 01/10/21 09:15 26 Mechanical Ventilator 60 01/10/21 09:00 26 108/68 Mechanical Ventilator 60 01/10/21 09:00 26 Mechanical Ventilator 60 01/10/21 09:00 71 26 108/68 (81) 93 01/10/21 08:43 26 Mechanical Ventilator 60 01/10/21 08:42 26 103/69 Mechanical Ventilator 60 01/10/21 08:41 26 103/69 Mechanical Ventilator 60 01/10/21 08:30 72 26 103/69 (80) 93 01/10/21 08:00 Mechanical Ventilator 01/10/21 08:00 60 01/10/21 08:00 98.4 73 26 107/72 (84) 93 01/10/21 08:00 26 107/72 Mechanical Ventilator 100 01/10/21 08:00 71 Height (Feet): 5 Height (Inches): 5.00 Weight (Pounds): 233 Gen: NAD HEENT: NCAT, ETT Pulm: BL chest rise, proned Ext: No c/c/e Skin: No visible rashes Neuro: Sedated Laboratory Tests Test 01/10/21 09:26 01/11/21 02:55 01/11/21 04:00 Arterial Blood pH 7.449 (7.350-7.450) 7.416 (7.350-7.450) Arterial Blood Partial Pressure CO2 37.7 mmHg (35.0-45.0) 41.3 mmHg (35.0-45.0) Arterial Blood Partial Pressure O2 73.3 mmHg (75.0-100.0) L 80.4 mmHg (75.0-100.0) Arterial Blood HCO3 25.6 mmol/L (22.0-26.0) 25.9 mmol/L (22.0-26.0) Arterial Blood Oxygen Saturation 95.2 % (95-100) 95.3 % (95-100) Arterial Blood Base Excess 1.7 (-2-2) 1.3 (-2-2) Migueliot Test Positive Positive Prothrombin Time 19.0 SEC (9.30-11.50) H Prothromb Time International Ratio 1.8 (0.9-1.1) H Current Medications Medications (Trade) Dose Ordered Sig/Johnny Route PRN Reason Start Time Stop Time Status Last Admin Dose Admin Acetaminophen (Tylenol) 650 mg Q6H PRN NG Temp >100.5 01/09/21 09:15 02/08/21 09:14 01/09/21 20:19 Acetaminophen (Tylenol) 650 mg Q6H PRN NG Mild Pain (Pain Scale 1-3) 01/09/21 09:15 02/08/21 09:14 Albuterol Sulfate (Proventil MDI) 2 puff Q6HRT INH 01/02/21 19:00 04/02/21 18:59 01/11/21 07:22 Benztropine Mesylate (Cogentin) 1 mg EVERY 12 HOURS NG 01/09/21 09:15 02/01/21 09:14 01/10/21 20:13 Chlorhexidine Gluconate (Myranda-Hex 2%) 1 applic DAILY@2000 TOPIC 01/07/21 20:00 04/07/21 19:59 01/10/21 22:12 Dextrose (Dextrose 50%) 25 ml Q30M PRN IV Hypoglycemia 01/06/21 23:45 04/06/21 23:44 Dextrose (Dextrose 50%) 50 ml Q30M PRN IV Hypoglycemia 01/06/21 23:45 04/06/21 23:44 Divalproex Sodium (Depakote) 500 mg EVERY 12 HOURS ORAL 01/02/21 09:00 02/01/21 08:59 01/10/21 20:13 Fentanyl Citrate 250 ml @ 1 mls/hr Q24H IV 01/09/21 04:30 01/11/21 09:59 01/10/21 22:12 Fentanyl Citrate 250 ml @ 1 mls/hr Q24H IV 01/11/21 10:00 01/13/21 09:59 Insulin Aspart (NovoLOG) EVERY 6 HOURS SUBQ 01/09/21 12:00 04/04/21 16:29 01/11/21 06:29 Ipratropium [place] (Atrovent Inh) 1 puffs Q6HRT INH 01/02/21 19:00 02/01/21 18:59 01/11/21 07:22 Lorazepam (Ativan 2mg/ml 1ml) 1 mg Q6H PRN IV For Anxiety 01/06/21 16:30 01/13/21 20:59 01/09/21 22:49 Methylprednisolone Sodium Succinate (Solu-MEDROL) 40 mg EVERY 12 HOURS IVP 01/02/21 09:00 04/02/21 08:59 01/10/21 20:12 Midazolam HCl 100 mg/Sodium Chloride 200 ml @ 0 mls/hr Q24H PRN IV Agitation 01/11/21 00:00 01/13/21 00:00 01/11/21 01:00 Ondansetron HCl (Zofran) 4 mg Q4H PRN IVP Nausea & Vomiting 01/02/21 08:15 02/01/21 08:14 Pantoprazole (Protonix) 40 mg Q12HR IVP 01/08/21 21:00 02/06/21 08:59 01/10/21 20:13 Piperacillin Sod/ Tazobactam Sod 3.375 gm/Sodium Chloride 110 ml @ 27.5 mls/hr EVERY 8 HOURS IVPB 01/09/21 14:00 01/14/21 13:59 01/11/21 05:16 Quetiapine Fumarate (SEROqueL) 200 mg DAILY NG 01/09/21 09:15 02/23/21 09:14 Risperidone (RisperDAL) 0.5 mg EVERY 12 HOURS NG 01/10/21 21:00 02/24/21 20:59 01/10/21 22:13 Sodium Chloride 1,000 ml @ 75 mls/hr [id number] IV 01/08/21 11:00 02/07/21 10:59 01/11/21 05:16 Warfarin Sodium (Coumadin per pharmacy) 1 ea DAILY PRN MISC Per rx protocol 01/02/21 08:30 02/01/21 08:29 Warfarin Sodium (Warfarin Sod) 1 mg COUMADIN ORAL 01/11/21 17:00 01/11/21 19:00 Renetta Gomez M.D. Jan 11, 2021 07:58
[2021-01-11] MEDS: Solu-MEDROL 40mg Inj IVP SCH ×2 (08:11→20:52)
[2021-01-11] MEDS: Benztropine 1mg tab NG SCH ×2 (08:11→20:52)
[2021-01-11] MEDS: Pantoprazole Inj IVP SCH ×2 (08:11→20:51)
[2021-01-11] MEDS: Depakote 500mg tab ORAL SCH ×2 (08:12→20:53)
[2021-01-11] MEDS: QUEtiapine 200mg tab NG SCH (08:12)
[2021-01-11 08:48] LABS: BASOPHILS % (AUTO) 4.2 % (0.0-2.0); EOSINOPHILS % (AUTO) 0.1 % (0.0-3.0); HEMATOCRIT 42.5 % (42.0-52.0); HEMOGLOBIN 13.1 G/DL (14.2-18.0); LYMPHOCYTES % (AUTO) 11.4 % (20.0-45.0); MEAN CORPUSCULAR VOLUME 92 FL (80-99); MONOCYTES % (AUTO) 9.4 % (1.0-10.0); NEUTROPHILS % (AUTO) 74.9 % (45.0-75.0); PLATELET COUNT 143 K/UL (150-450); RED BLOOD COUNT 4.61 M/UL (4.70-6.10); RED CELL DISTRIBUTION WIDTH 14.1 % (11.6-14.8); WHITE BLOOD COUNT 9.9 K/UL (4.8-10.8)
[2021-01-11 08:49] LABS: ALANINE AMINOTRANSFERASE 22 U/L (12-78); ALBUMIN 1.7 G/DL (3.4-5.0); ALBUMIN/GLOBULIN RATIO 0.4 (1.0-2.7); ALKALINE PHOSPHATASE 52 U/L (46-116); ANION GAP 6 mmol/L (5-15); ASPARTATE AMINO TRANSFERASE 28 U/L (15-37); BILIRUBIN,TOTAL 0.6 MG/DL (0.2-1.0); BLOOD UREA NITROGEN 23 mg/dL (7-18); CALCIUM 8.3 MG/DL (8.5-10.1); CARBON DIOXIDE 30 MMOL/L (21-32); CHLORIDE 113 MMOL/L (98-107); POTASSIUM 4.3 MMOL/L (3.5-5.1); SODIUM 149 MMOL/L (136-145)
--- NOTE | 2021-01-11 12:35 | Nephrology Progress Note ---
Assessment/Plan Problem List: (1) Hyperkalemia (2) Pneumonia due to COVID-19 virus (3) Respiratory failure with hypoxia (4) Obesity (5) Schizophrenia (6) DMII (diabetes mellitus, type 2) Assessment Hyperkalemia Stable renal parameters Hyperglycemia Covid pneumonia due to COVID-19 virus Acute respiratory failure with hypoxia requiring mechanical ventilation History of COPD History of DVT, pulmonary emboli Obese Hypertension History of diabetes Psych condition, schizophrenia, bipolar disease Plan January 11: Labs reviewed. Renal parameters stable. Continue per consultants. January 10: Labs reviewed. Renal parameters stable. Continue per consultants. Change IV to half-normal saline Kayexalate via NG tube for high potassium Monitor electrolytes and renal parameters Per orders, per consultants Subjective ROS Limited/Unobtainable: Yes Objective Objective Last 24 Hour Vital Signs Date Time Temp Pulse Resp B/P (MAP) Pulse Ox O2 Delivery O2 Flow Rate FiO2 01/11/21 12:00 98.0 70 22 122/76 (91) 96 01/11/21 12:00 60 01/11/21 11:30 67 22 123/75 (91) 96 01/11/21 11:00 67 22 123/77 (92) 96 01/11/21 10:42 22 Mechanical Ventilator 60 01/11/21 10:41 22 124/79 Mechanical Ventilator 60 01/11/21 10:30 66 22 124/79 (94) 95 01/11/21 10:30 22 124/79 Mechanical Ventilator 60 01/11/21 10:00 22 123/79 Mechanical Ventilator 60 01/11/21 10:00 66 22 123/79 (94) 95 01/11/21 09:30 70 22 123/75 (91) 96 01/11/21 09:00 75 22 115/73 (87) 95 01/11/21 09:00 22 115/73 Mechanical Ventilator 60 01/11/21 08:30 74 22 114/71 (85) 95 01/11/21 08:00 60 01/11/21 08:00 Mechanical Ventilator 01/11/21 08:00 76 22 114/71 (85) 95 01/11/21 08:00 98.2 76 22 114/71 (85) 95 01/11/21 08:00 22 114/71 Mechanical Ventilator 60 01/11/21 07:30 77 22 117/70 (86) 95 01/11/21 07:00 22 119/70 Mechanical Ventilator 60 01/11/21 07:00 74 22 119/70 (86) 95 01/11/21 06:15 75 22 95 01/11/21 06:00 76 22 117/73 (88) 95 01/11/21 05:45 76 22 95 01/11/21 05:30 76 22 120/69 (86) 95 01/11/21 05:15 78 22 95 01/11/21 05:08 80 22 50 01/11/21 05:00 77 22 115/74 (88) 95 01/11/21 04:00 97.8 79 22 118/73 (88) 95 01/11/21 04:00 73 01/11/21 04:00 60 01/11/21 03:30 79 22 119/75 (90) 96 01/11/21 03:20 79 22 50 01/11/21 03:00 80 22 117/72 (87) 94 01/11/21 02:30 82 22 115/71 (86) 94 01/11/21 02:00 83 22 116/71 (86) 94 01/11/21 01:32 85 22 118/68 (85) 99 01/11/21 01:00 72 22 122/73 (89) 97 01/11/21 01:00 20 Mechanical Ventilator 01/11/21 01:00 85 22 50 01/11/21 00:30 73 22 121/74 (90) 97 01/11/21 00:00 98.0 72 22 120/70 (87) 97 01/10/21 23:20 72 22 50 01/10/21 23:00 68 22 118/73 (88) 96 01/10/21 22:45 69 22 96 01/10/21 22:30 68 22 119/71 (87) 96 01/10/21 22:15 71 22 96 01/10/21 22:12 20 103/57 Mechanical Ventilator 60 01/10/21 22:00 78 22 103/57 (72) 95 01/10/21 21:45 78 22 95 01/10/21 21:30 74 22 108/69 (82) 95 01/10/21 21:19 76 22 50 01/10/21 21:15 74 22 96 01/10/21 21:00 76 22 108/67 (81) 96 01/10/21 20:45 77 22 96 01/10/21 20:30 79 22 101/58 (72) 96 01/10/21 20:30 79 22 101/58 (72) 96 01/10/21 20:00 97.8 75 22 106/66 (79) 96 01/10/21 20:00 60 01/10/21 20:00 Mechanical Ventilator 01/10/21 20:00 73 01/10/21 19:30 77 22 106/62 (77) 97 01/10/21 19:21 77 22 55 01/10/21 19:00 72 22 112/63 (79) 97 01/10/21 18:00 22 111/72 Mechanical Ventilator 60 01/10/21 18:00 22 Mechanical Ventilator 60 01/10/21 18:00 70 22 111/72 (85) 95 01/10/21 17:30 75 22 108/67 (81) 94 01/10/21 17:00 80 22 01/10/21 17:00 22 98/66 Mechanical Ventilator 60 01/10/21 17:00 22 Mechanical Ventilator 60 01/10/21 17:00 84 15 98/66 (77) 90 01/10/21 16:30 74 22 107/72 (84) 91 01/10/21 16:00 22 106/71 Mechanical Ventilator 60 01/10/21 16:00 22 Mechanical Ventilator 60 01/10/21 16:00 73 01/10/21 16:00 98.2 72 22 106/71 (83) 93 01/10/21 16:00 60 01/10/21 15:30 74 22 106/70 (82) 93 01/10/21 15:08 73 22 60 01/10/21 15:00 74 22 105/68 (80) 93 01/10/21 15:00 22 105/68 Mechanical Ventilator 60 01/10/21 15:00 22 Mechanical Ventilator 60 01/10/21 14:30 74 22 109/68 (82) 93 01/10/21 14:00 22 108/70 Mechanical Ventilator 60 01/10/21 14:00 22 Mechanical Ventilator 60 01/10/21 14:00 75 22 108/70 (83) 93 01/10/21 13:38 73 22 60 01/10/21 13:30 72 22 113/74 (87) 94 01/10/21 13:00 72 22 116/75 (89) 94 01/10/21 13:00 22 116/75 Mechanical Ventilator 60 01/10/21 13:00 22 Mechanical Ventilator 60 Intake and Output 01/10/21 01/11/21 19:00 07:00 Intake Total 1584.6 ml 1552.66 ml Output Total 915 ml 670 ml Balance 669.6 ml 882.66 ml Free Water 50 ml IV Total 1444.6 ml 1402.66 ml Tube Feeding 90 ml 150 ml Output Urine Total 915 ml 670 ml Current Medications Medications (Trade) Dose Ordered Sig/Johnny Route PRN Reason Start Time Stop Time Status Last Admin Dose Admin Acetaminophen (Tylenol) 650 mg Q6H PRN NG Temp >100.5 01/09/21 09:15 02/08/21 09:14 01/09/21 20:19 Acetaminophen (Tylenol) 650 mg Q6H PRN NG Mild Pain (Pain Scale 1-3) 01/09/21 09:15 02/08/21 09:14 Albuterol Sulfate (Proventil MDI) 2 puff Q6HRT INH 01/02/21 19:00 04/02/21 18:59 01/11/21 07:22 Benztropine Mesylate (Cogentin) 1 mg EVERY 12 HOURS NG 01/09/21 09:15 02/01/21 09:14 01/10/21 20:13 Chlorhexidine Gluconate (Myranda-Hex 2%) 1 applic DAILY@2000 TOPIC 01/07/21 20:00 04/07/21 19:59 01/10/21 22:12 Dextrose (Dextrose 50%) 25 ml Q30M PRN IV Hypoglycemia 01/06/21 23:45 04/06/21 23:44 Dextrose (Dextrose 50%) 50 ml Q30M PRN IV Hypoglycemia 01/06/21 23:45 04/06/21 23:44 Divalproex Sodium (Depakote) 500 mg EVERY 12 HOURS ORAL 01/02/21 09:00 02/01/21 08:59 01/10/21 20:13 Fentanyl Citrate 250 ml @ 1 mls/hr Q24H IV 01/11/21 10:00 01/13/21 09:59 01/11/21 10:41 Insulin Aspart (NovoLOG) EVERY 6 HOURS SUBQ 01/09/21 12:00 04/04/21 16:29 01/11/21 11:37 Ipratropium [place] (Atrovent Inh) 1 puffs Q6HRT INH 01/02/21 19:00 02/01/21 18:59 01/11/21 07:22 Lorazepam (Ativan 2mg/ml 1ml) 1 mg Q6H PRN IV For Anxiety 01/06/21 16:30 01/13/21 20:59 01/09/21 22:49 Methylprednisolone Sodium Succinate (Solu-MEDROL) 40 mg EVERY 12 HOURS IVP 01/02/21 09:00 04/02/21 08:59 01/11/21 08:11 Midazolam HCl 100 mg/Sodium Chloride 200 ml @ 0 mls/hr Q24H PRN IV Agitation 01/11/21 00:00 01/13/21 00:00 01/11/21 10:42 Ondansetron HCl (Zofran) 4 mg Q4H PRN IVP Nausea & Vomiting 01/02/21 08:15 02/01/21 08:14 Pantoprazole (Protonix) 40 mg Q12HR IVP 01/08/21 21:00 02/06/21 08:59 01/11/21 08:11 Piperacillin Sod/ Tazobactam Sod 3.375 gm/Sodium Chloride 110 ml @ 27.5 mls/hr EVERY 8 HOURS IVPB 01/09/21 14:00 01/14/21 13:59 01/11/21 05:16 Quetiapine Fumarate (SEROqueL) 200 mg DAILY NG 01/09/21 09:15 02/23/21 09:14 Risperidone (RisperDAL) 0.5 mg EVERY 12 HOURS NG 01/10/21 21:00 02/24/21 20:59 01/10/21 22:13 Sodium Chloride 1,000 ml @ 75 mls/hr [id number] IV 01/08/21 11:00 02/07/21 10:59 01/11/21 05:16 Warfarin Sodium (Coumadin per pharmacy) 1 ea DAILY PRN MISC Per rx protocol 01/02/21 08:30 02/01/21 08:29 Warfarin Sodium (Warfarin Sod) 1 mg COUMADIN ORAL 01/11/21 17:00 01/11/21 19:00 Laboratory Tests 01/11/21 02:55: Prothrombin Time 19.0H, Prothromb Time International Ratio 1.8H 01/11/21 04:00: Arterial Blood pH 7.416, Arterial Blood Partial Pressure CO2 41.3, Arterial Blood Partial Pressure O2 80.4, Arterial Blood HCO3 25.9, Arterial Blood Oxygen Saturation 95.3, Arterial Blood Base Excess 1.3, Miguelito Test Positive 01/11/21 08:25: White Blood Count 9.9, Red Blood Count 4.61L, Hemoglobin 13.1L, Hematocrit 42.5, Mean Corpuscular Volume 92, Mean Corpuscular Hemoglobin 28.3, Mean Corpuscular Hemoglobin Concent 30.7L, Red Cell Distribution Width 14.1, Platelet Count 143L, Mean Platelet Volume 9.1, Neutrophils (%) (Auto) 74.9, Lymphocytes (%) (Auto) 11.4L, Monocytes (%) (Auto) 9.4, Eosinophils (%) (Auto) 0.1, Basophils (%) (Auto) 4.2H, Sodium Level 149H, Potassium Level 4.3, Chloride Level 113H, Carbon Dioxide Level 30, Anion Gap 6, Blood Urea Nitrogen 23H, Creatinine 1.0, Estimat Glomerular Filtration Rate > 60, Glucose Level 285H, Calcium Level 8.3L, Total Bilirubin 0.6, Aspartate Amino Transf (AST/SGOT) 28, Alanine Aminotransferase (ALT/SGPT) 22, Alkaline Phosphatase 52, Total Protein 5.7L, Albumin 1.7L, Globulin 4.0, Albumin/Globulin Ratio 0.4L Height (Feet): 5 Height (Inches): 5.00 Weight (Pounds): 233 General Appearance: no apparent distress Cardiovascular: normal rate Respiratory/Chest: decreased breath sounds Abdomen: distended Avi Frye MD Jan 11, 2021 12:35
--- NOTE | 2021-01-11 13:02 | Internal Med Progress Note ---
Subjective Physician Name Geovanny Bradley Attending Physician Geovanny Bradley MD Current Medications Medications (Trade) Dose Ordered Sig/Johnny Route PRN Reason Start Time Stop Time Status Last Admin Dose Admin Acetaminophen (Tylenol) 650 mg Q6H PRN NG Temp >100.5 01/09/21 09:15 02/08/21 09:14 01/09/21 20:19 Acetaminophen (Tylenol) 650 mg Q6H PRN NG Mild Pain (Pain Scale 1-3) 01/09/21 09:15 02/08/21 09:14 Albuterol Sulfate (Proventil I) 2 puff Q6HRT INH 01/02/21 19:00 04/02/21 18:59 01/11/21 07:22 Benztropine Mesylate (Cogentin) 1 mg EVERY 12 HOURS NG 01/09/21 09:15 02/01/21 09:14 01/10/21 20:13 Chlorhexidine Gluconate (Myranda-Hex 2%) 1 applic DAILY@2000 TOPIC 01/07/21 20:00 04/07/21 19:59 01/10/21 22:12 Dextrose (Dextrose 50%) 25 ml Q30M PRN IV Hypoglycemia 01/06/21 23:45 04/06/21 23:44 Dextrose (Dextrose 50%) 50 ml Q30M PRN IV Hypoglycemia 01/06/21 23:45 04/06/21 23:44 Divalproex Sodium (Depakote) 500 mg EVERY 12 HOURS ORAL 01/02/21 09:00 02/01/21 08:59 01/10/21 20:13 Fentanyl Citrate 250 ml @ 1 mls/hr Q24H IV 01/11/21 10:00 01/13/21 09:59 01/11/21 10:41 Insulin Aspart (NovoLOG) EVERY 6 HOURS SUBQ 01/09/21 12:00 04/04/21 16:29 01/11/21 11:37 Ipratropium [place] (Atrovent Inh) 1 puffs Q6HRT INH 01/02/21 19:00 02/01/21 18:59 01/11/21 07:22 Lorazepam (Ativan 2mg/ml 1ml) 1 mg Q6H PRN IV For Anxiety 01/06/21 16:30 01/13/21 20:59 01/09/21 22:49 Methylprednisolone Sodium Succinate (Solu-MEDROL) 40 mg EVERY 12 HOURS IVP 01/02/21 09:00 04/02/21 08:59 01/11/21 08:11 Midazolam HCl 100 mg/Sodium Chloride 200 ml @ 0 mls/hr Q24H PRN IV Agitation 01/11/21 00:00 01/13/21 00:00 01/11/21 10:42 Ondansetron HCl (Zofran) 4 mg Q4H PRN IVP Nausea & Vomiting 01/02/21 08:15 02/01/21 08:14 Pantoprazole (Protonix) 40 mg Q12HR IVP 01/08/21 21:00 02/06/21 08:59 01/11/21 08:11 Piperacillin Sod/ Tazobactam Sod 3.375 gm/Sodium Chloride 110 ml @ 27.5 mls/hr EVERY 8 HOURS IVPB 01/09/21 14:00 01/14/21 13:59 01/11/21 05:16 Quetiapine Fumarate (SEROqueL) 200 mg DAILY NG 01/09/21 09:15 02/23/21 09:14 Risperidone (RisperDAL) 0.5 mg EVERY 12 HOURS NG 01/10/21 21:00 02/24/21 20:59 01/10/21 22:13 Sodium Chloride 1,000 ml @ 75 mls/hr [id number] IV 01/08/21 11:00 02/07/21 10:59 01/11/21 05:16 Warfarin Sodium (Coumadin per pharmacy) 1 ea DAILY PRN MISC Per rx protocol 01/02/21 08:30 02/01/21 08:29 Warfarin Sodium (Warfarin Sod) 1 mg COUMADIN ORAL 01/11/21 17:00 01/11/21 19:00 Allergies: Coded Allergies: No Known Allergies (Unverified , 01/02/21) Subjective in MICU, intubated, remained on ventilation, in prone position, WBC: 9.9 Objective Last Vital Signs Date Time Temp Pulse Resp B/P (MAP) Pulse Ox O2 Delivery O2 Flow Rate FiO2 01/11/21 12:00 98.0 70 22 122/76 (91) 96 01/11/21 12:00 60 01/11/21 10:42 Mechanical Ventilator 01/06/21 19:40 15.0 Laboratory Tests Test 01/11/21 02:55 01/11/21 04:00 01/11/21 08:25 Prothrombin Time 19.0 SEC (9.30-11.50) H Prothromb Time International Ratio 1.8 (0.9-1.1) H Arterial Blood pH 7.416 (7.350-7.450) Arterial Blood Partial Pressure CO2 41.3 mmHg (35.0-45.0) Arterial Blood Partial Pressure O2 80.4 mmHg (75.0-100.0) Arterial Blood HCO3 25.9 mmol/L (22.0-26.0) Arterial Blood Oxygen Saturation 95.3 % (95-100) Arterial Blood Base Excess 1.3 (-2-2) Miguelito Test Positive White Blood Count 9.9 K/UL (4.8-10.8) Red Blood Count 4.61 M/UL (4.70-6.10) L Hemoglobin 13.1 G/DL (14.2-18.0) L Hematocrit 42.5 % (42.0-52.0) Mean Corpuscular Volume 92 FL (80-99) Mean Corpuscular Hemoglobin 28.3 PG (27.0-31.0) Mean Corpuscular Hemoglobin Concent 30.7 G/DL (32.0-36.0) L Red Cell Distribution Width 14.1 % (11.6-14.8) Platelet Count 143 K/UL (150-450) L Mean Platelet Volume 9.1 FL (6.5-10.1) Neutrophils (%) (Auto) 74.9 % (45.0-75.0) Lymphocytes (%) (Auto) 11.4 % (20.0-45.0) L Monocytes (%) (Auto) 9.4 % (1.0-10.0) Eosinophils (%) (Auto) 0.1 % (0.0-3.0) Basophils (%) (Auto) 4.2 % (0.0-2.0) H Sodium Level 149 MMOL/L (136-145) H Potassium Level 4.3 MMOL/L (3.5-5.1) Chloride Level 113 MMOL/L (98-107) H Carbon Dioxide Level 30 MMOL/L (21-32) Anion Gap 6 mmol/L (5-15) Blood Urea Nitrogen 23 mg/dL (7-18) H Creatinine 1.0 MG/DL (0.55-1.30) Estimat Glomerular Filtration Rate > 60 mL/min (>60) Glucose Level 285 MG/DL (74-106) H Calcium Level 8.3 MG/DL (8.5-10.1) L Total Bilirubin 0.6 MG/DL (0.2-1.0) Aspartate Amino Transf (AST/SGOT) 28 U/L (15-37) Alanine Aminotransferase (ALT/SGPT) 22 U/L (12-78) Alkaline Phosphatase 52 U/L (46-116) Total Protein 5.7 G/DL (6.4-8.2) L Albumin 1.7 G/DL (3.4-5.0) L Globulin 4.0 g/dL Albumin/Globulin Ratio 0.4 (1.0-2.7) L Intake and Output 01/10/21 01/11/21 19:00 07:00 Intake Total 1584.6 ml 1552.66 ml Output Total 915 ml 670 ml Balance 669.6 ml 882.66 ml Free Water 50 ml IV Total 1444.6 ml 1402.66 ml Tube Feeding 90 ml 150 ml Output Urine Total 915 ml 670 ml Objective General: intubated, in the prone position, remained on ventilation. HEENT: NCAT, sclera anicteric, PERRL, ET Tube. Neck: Supple, no significant jugular venous distention, Lungs: mechanical breath sounds,,basal crackles, no Wheeze. Heart: Regular rate and rhythm, normal S1/S2, no murmurs Abdomen: soft, nontender, nondistended. Normoactive bowel sound, obesity. : Ferraro cath. Extremities: Left LE: No Cyanosis , clubbing or edema. Right LE AKA. Neuro: limited secondary to patient's status, patient is sedated. Skin: warm, no rashes or lesions. Assessment/Plan Assessment/Plan (1) Pneumonia due to COVID-19 virus ICD Codes: U07.1 - COVID-19; J12.82 - Pneumonia due to coronavirus disease 2018 SNOMED: 255365028997478183 (2) Acute hypercapnic respiratory failure >> intubated 01/06 ICD Codes: J96.02 - Acute respiratory failure with hypercapnia SNOMED: 871916374 (3) Respiratory failure with hypoxia ICD Codes: J96.91 - Respiratory failure, unspecified with hypoxia SNOMED: 00758262936542829 Qualifiers: Qualified Codes: J96.01 - Acute respiratory failure with hypoxia (4) COPD (chronic obstructive pulmonary disease) ICD Codes: J44.9 - Chronic obstructive pulmonary disease, unspecified SNOMED: 48426427 (5) History of deep venous thrombosis or pulmonary embolus SNOMED: 084901290 (6) Obesity ICD Codes: E66.9 - Obesity, unspecified SNOMED: 329494453, 848304864 (7) Essential hypertension ICD Codes: I10 - Essential (primary) hypertension SNOMED: 45247326 (8) Diabetes mellitus type 2 in obese ICD Codes: E11.69 - Type 2 diabetes mellitus with other specified complication; E66.9 - Obesity, unspecified SNOMED: 22451077 (9) History of hydrocephalus ICD Codes: Z86.69 - Personal history of other diseases of the nervous system and sense organs SNOMED: 228513784 (10) Schizophrenia ICD Codes: F20.9 - Schizophrenia, unspecified SNOMED: 42872001 (11) Bipolar 1 disorder ICD Codes: F31.9 - Bipolar disorder, unspecified SNOMED: 853021957 (12) Anticoagulant long-term use ICD Codes: Z79.01 - line out man (current) use of anticoagulants SNOMED: 281016338 Assessment/Plan: Optimize pulmonary hygiene/mobilize as tolerated Prone position Completed Remdesivir IV Solu-Medrol 40 mg IV BID Abx: Zosyn IV F/U Cx's Monitor volumes and renal function DVT Px: Coumadin Monitor blood glucose level closely. FULL Code Geovanny Bradley MD Jan 11, 2021 13:02
--- NOTE | 2021-01-11 16:14 | Pulmonology Progress Note ---
Subjective ROS Limited/Unobtainable: Yes Allergies: Coded Allergies: No Known Allergies (Unverified , 01/02/21) Objective Last 24 Hour Vital Signs Date Time Temp Pulse Resp B/P (MAP) Pulse Ox O2 Delivery O2 Flow Rate FiO2 01/11/21 16:00 60 01/11/21 16:00 66 22 119/73 (88) 96 01/11/21 16:00 68 01/11/21 15:30 73 22 121/73 (89) 97 01/11/21 15:00 68 22 119/72 (88) 96 01/11/21 14:30 69 22 121/74 (90) 96 01/11/21 14:00 67 22 116/73 (87) 96 01/11/21 13:30 71 22 121/76 (91) 96 01/11/21 13:00 67 22 121/75 (90) 96 01/11/21 13:00 22 121/75 Mechanical Ventilator 50 01/11/21 13:00 22 Mechanical Ventilator 50 01/11/21 12:00 98.0 70 22 122/76 (91) 96 01/11/21 12:00 22 122/76 Mechanical Ventilator 50 01/11/21 12:00 22 Mechanical Ventilator 50 01/11/21 12:00 60 01/11/21 12:00 69 01/11/21 11:30 67 22 123/75 (91) 96 01/11/21 11:00 22 123/77 Mechanical Ventilator 50 01/11/21 11:00 22 Mechanical Ventilator 50 01/11/21 11:00 67 22 123/77 (92) 96 01/11/21 10:42 22 Mechanical Ventilator 60 01/11/21 10:41 22 124/79 Mechanical Ventilator 60 01/11/21 10:30 66 22 124/79 (94) 95 01/11/21 10:30 22 124/79 Mechanical Ventilator 60 01/11/21 10:00 22 123/79 Mechanical Ventilator 60 01/11/21 10:00 66 22 123/79 (94) 95 01/11/21 09:30 70 22 123/75 (91) 96 01/11/21 09:00 75 22 115/73 (87) 95 01/11/21 09:00 22 115/73 Mechanical Ventilator 60 01/11/21 08:30 74 22 114/71 (85) 95 01/11/21 08:00 60 01/11/21 08:00 Mechanical Ventilator 01/11/21 08:00 76 22 114/71 (85) 95 01/11/21 08:00 75 01/11/21 08:00 98.2 76 22 114/71 (85) 95 01/11/21 08:00 22 114/71 Mechanical Ventilator 60 01/11/21 07:30 77 22 117/70 (86) 95 01/11/21 07:00 22 119/70 Mechanical Ventilator 60 01/11/21 07:00 74 22 119/70 (86) 95 01/11/21 06:15 75 22 95 01/11/21 06:00 76 22 117/73 (88) 95 01/11/21 05:45 76 22 95 01/11/21 05:30 76 22 120/69 (86) 95 01/11/21 05:15 78 22 95 01/11/21 05:08 80 22 50 01/11/21 05:00 77 22 115/74 (88) 95 01/11/21 04:00 97.8 79 22 118/73 (88) 95 01/11/21 04:00 73 01/11/21 04:00 60 01/11/21 03:30 79 22 119/75 (90) 96 01/11/21 03:20 79 22 50 01/11/21 03:00 80 22 117/72 (87) 94 01/11/21 02:30 82 22 115/71 (86) 94 01/11/21 02:00 83 22 116/71 (86) 94 01/11/21 01:32 85 22 118/68 (85) 99 01/11/21 01:00 72 22 122/73 (89) 97 01/11/21 01:00 20 Mechanical Ventilator 01/11/21 01:00 85 22 50 01/11/21 00:30 73 22 121/74 (90) 97 01/11/21 00:00 98.0 72 22 120/70 (87) 97 01/10/21 23:20 72 22 50 01/10/21 23:00 68 22 118/73 (88) 96 01/10/21 22:45 69 22 96 01/10/21 22:30 68 22 119/71 (87) 96 01/10/21 22:15 71 22 96 01/10/21 22:12 20 103/57 Mechanical Ventilator 60 01/10/21 22:00 78 22 103/57 (72) 95 01/10/21 21:45 78 22 95 01/10/21 21:30 74 22 108/69 (82) 95 01/10/21 21:19 76 22 50 01/10/21 21:15 74 22 96 01/10/21 21:00 76 22 108/67 (81) 96 01/10/21 20:45 77 22 96 01/10/21 20:30 79 22 101/58 (72) 96 01/10/21 20:30 79 22 101/58 (72) 96 01/10/21 20:00 97.8 75 22 106/66 (79) 96 01/10/21 20:00 60 01/10/21 20:00 Mechanical Ventilator 01/10/21 20:00 73 01/10/21 19:30 77 22 106/62 (77) 97 01/10/21 19:21 77 22 55 01/10/21 19:00 72 22 112/63 (79) 97 01/10/21 18:00 22 111/72 Mechanical Ventilator 60 01/10/21 18:00 22 Mechanical Ventilator 60 01/10/21 18:00 70 22 111/72 (85) 95 01/10/21 17:30 75 22 108/67 (81) 94 01/10/21 17:00 80 22 01/10/21 17:00 22 98/66 Mechanical Ventilator 60 01/10/21 17:00 22 Mechanical Ventilator 60 01/10/21 17:00 84 15 98/66 (77) 90 01/10/21 16:30 74 22 107/72 (84) 91 Intake and Output 01/10/21 01/11/21 19:00 07:00 Intake Total 1584.6 ml 1552.66 ml Output Total 915 ml 670 ml Balance 669.6 ml 882.66 ml Free Water 50 ml IV Total 1444.6 ml 1402.66 ml Tube Feeding 90 ml 150 ml Output Urine Total 915 ml 670 ml Laboratory Tests 01/11/21 02:55: Prothrombin Time 19.0H, Prothromb Time International Ratio 1.8H 01/11/21 04:00: Arterial Blood pH 7.416, Arterial Blood Partial Pressure CO2 41.3, Arterial Blood Partial Pressure O2 80.4, Arterial Blood HCO3 25.9, Arterial Blood Oxygen Saturation 95.3, Arterial Blood Base Excess 1.3, Miguelito Test Positive 01/11/21 08:25: White Blood Count 9.9, Red Blood Count 4.61L, Hemoglobin 13.1L, Hematocrit 42.5, Mean Corpuscular Volume 92, Mean Corpuscular Hemoglobin 28.3, Mean Corpuscular Hemoglobin Concent 30.7L, Red Cell Distribution Width 14.1, Platelet Count 143L, Mean Platelet Volume 9.1, Neutrophils (%) (Auto) 74.9, Lymphocytes (%) (Auto) 11.4L, Monocytes (%) (Auto) 9.4, Eosinophils (%) (Auto) 0.1, Basophils (%) (Auto) 4.2H, Sodium Level 149H, Potassium Level 4.3, Chloride Level 113H, Carbon Dioxide Level 30, Anion Gap 6, Blood Urea Nitrogen 23H, Creatinine 1.0, Estimat Glomerular Filtration Rate > 60, Glucose Level 285H, Calcium Level 8.3L, Total Bilirubin 0.6, Aspartate Amino Transf (AST/SGOT) 28, Alanine Aminotransferase (ALT/SGPT) 22, Alkaline Phosphatase 52, Total Protein 5.7L, Albumin 1.7L, Globulin 4.0, Albumin/Globulin Ratio 0.4L Current Medications Medications (Trade) Dose Ordered Sig/Johnny Route PRN Reason Start Time Stop Time Status Last Admin Dose Admin Acetaminophen (Tylenol) 650 mg Q6H PRN NG Temp >100.5 01/09/21 09:15 02/08/21 09:14 01/09/21 20:19 Acetaminophen (Tylenol) 650 mg Q6H PRN NG Mild Pain (Pain Scale 1-3) 01/09/21 09:15 02/08/21 09:14 Albuterol Sulfate (Proventil MDI) 2 puff Q6HRT INH 01/02/21 19:00 04/02/21 18:59 01/11/21 14:06 Benztropine Mesylate (Cogentin) 1 mg EVERY 12 HOURS NG 01/09/21 09:15 02/01/21 09:14 01/10/21 20:13 Chlorhexidine Gluconate (Myranda-Hex 2%) 1 applic DAILY@1999 TOPIC 01/07/21 20:00 04/07/21 19:59 01/10/21 22:12 Dextrose (Dextrose 50%) 25 ml Q30M PRN IV Hypoglycemia 01/06/21 23:45 04/06/21 23:44 Dextrose (Dextrose 50%) 50 ml Q30M PRN IV Hypoglycemia 01/06/21 23:45 04/06/21 23:44 Divalproex Sodium (Depakote) 500 mg EVERY 12 HOURS ORAL 01/02/21 09:00 02/01/21 08:59 01/10/21 20:13 Fentanyl Citrate 250 ml @ 1 mls/hr Q24H IV 01/11/21 10:00 01/13/21 09:59 01/11/21 10:41 Insulin Aspart (NovoLOG) EVERY 6 HOURS SUBQ 01/09/21 12:00 04/04/21 16:29 01/11/21 11:37 Ipratropium [place] (Atrovent Inh) 1 puffs Q6HRT INH 01/02/21 19:00 02/01/21 18:59 01/11/21 14:06 Lorazepam (Ativan 2mg/ml 1ml) 1 mg Q6H PRN IV For Anxiety 01/06/21 16:30 01/13/21 20:59 01/09/21 22:49 Methylprednisolone Sodium Succinate (Solu-MEDROL) 40 mg EVERY 12 HOURS IVP 01/02/21 09:00 04/02/21 08:59 01/11/21 08:11 Midazolam HCl 200 ml @ 0 mls/hr Q24H PRN IV Agitation 01/11/21 20:00 01/13/21 00:00 Midazolam HCl 100 mg/Sodium Chloride 200 ml @ 0 mls/hr Q24H PRN IV Agitation 01/11/21 00:00 01/11/21 19:59 01/11/21 10:42 Ondansetron HCl (Zofran) 4 mg Q4H PRN IVP Nausea & Vomiting 01/02/21 08:15 02/01/21 08:14 Pantoprazole (Protonix) 40 mg Q12HR IVP 01/08/21 21:00 02/06/21 08:59 01/11/21 08:11 Piperacillin Sod/ Tazobactam Sod 3.375 gm/Sodium Chloride 110 ml @ 27.5 mls/hr EVERY 8 HOURS IVPB 01/09/21 14:00 01/14/21 13:59 01/11/21 14:21 Quetiapine Fumarate (SEROqueL) 200 mg DAILY NG 01/09/21 09:15 02/23/21 09:14 Risperidone (RisperDAL) 0.5 mg EVERY 12 HOURS NG 01/10/21 21:00 02/24/21 20:59 01/10/21 22:13 Sodium Chloride 1,000 ml @ 75 mls/hr [id number] IV 01/08/21 11:00 02/07/21 10:59 01/11/21 05:16 Warfarin Sodium (Coumadin per pharmacy) 1 ea DAILY PRN MISC Per rx protocol 01/02/21 08:30 02/01/21 08:29 Warfarin Sodium (Warfarin Sod) 1 mg COUMADIN ORAL 01/11/21 17:00 01/11/21 19:00 Assessment/Plan Assessment/Plan Pulmonary CCM Progress Note HPI Patient is a 60 man with prior h/o COPD, CPS/bipolar DO, 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 ID following and started on CTx/Azithro + REM + SM 40 IV BID, CXR with bilateral infiltrates,ETT appropriate. Proning as tolerated, ABG noted Sedated in ICU on Ventilator, has OGT/central line On pressors PRN PEEP reduced to 10,maintaining O2 sats, FIO2 stable - 60% Allergies: Coded Allergies: No Known Allergies (Unverified , 01/02/21) PMH: COPD, CPS/bipolar DO, prior DVT/PE on AC, NHR, DM2, HTN and hydrocephalus Physical Exam Deferred Covid19 Vital Signs noted Laboratory Tests noted Imaging noted Height (Feet): 5 Height (Inches): 5.00 Weight (Pounds): 233 Medications Medications noted Assessment/Plan Problem List: (1) Pneumonia due to COVID-19 virus ICD Codes: U07.1 - COVID-19; J12.82 - Pneumonia due to coronavirus disease 2018 SNOMED: 707241207929304962 (2) Acute hypercapnic respiratory failure ICD Codes: J96.02 - Acute respiratory failure with hypercapnia SNOMED: 538025062 (3) Respiratory failure with hypoxia ICD Codes: J96.91 - Respiratory failure, unspecified with hypoxia SNOMED: 98505925422039864 Qualifiers: Qualified Codes: J96.01 - Acute respiratory failure with hypoxia (4) COPD (chronic obstructive pulmonary disease) ICD Codes: J44.9 - Chronic obstructive pulmonary disease, unspecified SNOMED: 19235046 (5) History of deep venous thrombosis or pulmonary embolus SNOMED: 202659753 (6) Obesity ICD Codes: E66.9 - Obesity, unspecified SNOMED: 395492662, 241499620 (7) Essential hypertension ICD Codes: I10 - Essential (primary) hypertension SNOMED: 00179678 (8) Diabetes mellitus type 2 in obese ICD Codes: E11.69 - Type 2 diabetes mellitus with other specified complication; E66.9 - Obesity, unspecified SNOMED: 73806344 (9) History of hydrocephalus ICD Codes: Z86.69 - Personal history of other diseases of the nervous system and sense organs SNOMED: 070138632 (10) Schizophrenia ICD Codes: F20.9 - Schizophrenia, unspecified SNOMED: 27704454 (11) Bipolar 1 disorder ICD Codes: F31.9 - Bipolar disorder, unspecified SNOMED: 887874835 (12) Anticoagulant long-term use ICD Codes: Z79.01 - feeder operator automatic (current) use of anticoagulants SNOMED: 654585296 Assessment/Plan: ACVC - adjust PRN Prone as tolerated Adjust FiO2 to keep SaO2 > 92% HFA's IVF per Renal Pressors PRN F/U inflammatory markers and covid labs ID recs REM/SM 40 per ID Abx per ID F/U Cx's Monitor volumes and renal function DVT Px: Coumadin TF when not proned FC Seen earlier Anuel Luis MD Jan 11, 2021 16:14
[2021-01-11] MEDS ORDERED: Warfarin Sodium 1mg ORAL SCH (17:00)
--- NOTE | 2021-01-11 18:32 | Diagnostic Imaging Report ---
EXAM: XR Chest, 1 View CLINICAL HISTORY: INFECT TECHNIQUE: Frontal view of the chest. COMPARISON: 01/06/2021. FINDINGS: Lungs: Interval improved bilateral lung aeration. Bibasilar infiltrates/atelectasis. Pleural space: Possible small left pleural effusion. No pneumothorax. Heart: Stable. Mediastinum: Stable. Bones/joints: Unremarkable. Tubes, lines and devices: Stable ET and NG tubes. IMPRESSION: Interval improved bilateral lung aeration. Bibasilar infiltrates/atelectasis.
[2021-01-11] MEDS ORDERED: Dyna-Hex 2% Top Sol 2oz TOPIC SCH (20:30)
[2021-01-11] MEDS: Acetaminophen 650mg/20.3ml NG PRN (21:21)
[2021-01-11] MEDS: Versed 100mg/NS 200ml 200 ML IV PRN (23:06)
[2021-01-12] VITALS (31 sets, daily range): BP systolic 86–128; BP diastolic 43–80
[2021-01-12] MEDS: NovoLOG Insulin Flexpen SUBQ SCH ×5 (00:14→23:55)
[2021-01-12] MEDS: Acetaminophen 650mg/20.3ml NG PRN (04:41)
[2021-01-12 05:16] LABS: BASOPHILS % (AUTO) 1.5 % (0.0-2.0); HEMATOCRIT 45.6 % (42.0-52.0); HEMOGLOBIN 13.8 G/DL (14.2-18.0); LYMPHOCYTES % (AUTO) 11.2 % (20.0-45.0); MEAN CORPUSCULAR VOLUME 94 FL (80-99); MONOCYTES % (AUTO) 6.3 % (1.0-10.0); NEUTROPHILS % (AUTO) 81.1 % (45.0-75.0); PLATELET COUNT 167 K/UL (150-450); RED BLOOD COUNT 4.84 M/UL (4.70-6.10); RED CELL DISTRIBUTION WIDTH 14.2 % (11.6-14.8); WHITE BLOOD COUNT 9.2 K/UL (4.8-10.8)
[2021-01-12 05:20] LABS: INR 1.8 (0.9-1.1)
[2021-01-12 05:44] LABS: ALANINE AMINOTRANSFERASE 28 U/L (12-78); ALBUMIN 1.9 G/DL (3.4-5.0); ALBUMIN/GLOBULIN RATIO 0.4 (1.0-2.7); ALKALINE PHOSPHATASE 56 U/L (46-116); ANION GAP 9 mmol/L (5-15); ASPARTATE AMINO TRANSFERASE 37 U/L (15-37); BILIRUBIN,TOTAL 0.7 MG/DL (0.2-1.0); BLOOD UREA NITROGEN 25 mg/dL (7-18); CALCIUM 8.3 MG/DL (8.5-10.1); CARBON DIOXIDE 27 MMOL/L (21-32); CHLORIDE 111 MMOL/L (98-107); CREATININE 1.1 MG/DL (0.55-1.30); POTASSIUM 4.5 MMOL/L (3.5-5.1); SODIUM 147 MMOL/L (136-145)
[2021-01-12] MEDS: Versed 100mg/NS 200ml 200 ML IV PRN ×2 (06:00→16:52)
[2021-01-12] MEDS: Piperacillin/Tazobactam 3.375 GM in NS 110 ML IVPB SCH ×3 (06:05→21:59)
[2021-01-12] MEDS: Ipratropium Bromide Inhaler INH SCH ×3 (07:55→19:00)
[2021-01-12] MEDS: Albuterol 90mcg Inhaler 8gm INH SCH ×3 (07:55→19:00)
[2021-01-12] MEDS: fentaNYL 2500mcg/NS 250ml 250 ML IV SCH ×2 (09:04→17:58)
[2021-01-12] MEDS: Pantoprazole Inj IVP SCH ×2 (09:07→20:26)
[2021-01-12] MEDS: Solu-MEDROL 40mg Inj IVP SCH ×2 (09:07→20:27)
[2021-01-12] MEDS: Benztropine 1mg tab NG SCH ×2 (09:08→20:25)
[2021-01-12] MEDS: Depakote 500mg tab ORAL SCH ×2 (09:09→20:26)
[2021-01-12] MEDS: QUEtiapine 200mg tab NG SCH (09:13)
[2021-01-12] MEDS ORDERED: D5 1/2NS 1000ml IV ONE (10:02)
[2021-01-12] MEDS ORDERED: Tubing IV Secondary IV ONE (10:02)
[2021-01-12] MEDS ORDERED: 1/2 NS 1000ml IV ONE (10:02)
--- NOTE | 2021-01-12 12:17 | Nephrology Progress Note ---
Assessment/Plan Problem List: (1) Hyperkalemia (2) Pneumonia due to COVID-19 virus (3) Respiratory failure with hypoxia (4) Obesity (5) Schizophrenia (6) DMII (diabetes mellitus, type 2) Assessment Hyperkalemia Stable renal parameters Hyperglycemia Covid pneumonia due to COVID-19 virus Acute respiratory failure with hypoxia requiring mechanical ventilation History of COPD History of DVT, pulmonary emboli Obese Hypertension History of diabetes Psych condition, schizophrenia, bipolar disease Plan January 12: Labs reviewed. Renal parameters stable. Patient remains full code. Remains intubated on ventilator and on prone position. Continue per consultants. January 11: Labs reviewed. Renal parameters stable. Continue per consultants. January 10: Labs reviewed. Renal parameters stable. Continue per consultants. Change IV to half-normal saline Kayexalate via NG tube for high potassium Monitor electrolytes and renal parameters Per orders, per consultants Subjective ROS Limited/Unobtainable: Yes Objective Objective Last 24 Hour Vital Signs Date Time Temp Pulse Resp B/P (MAP) Pulse Ox O2 Delivery O2 Flow Rate FiO2 01/12/21 11:13 65 22 60 01/12/21 11:07 66 22 118/67 (84) 98 01/12/21 10:00 77 22 112/69 (83) 98 01/12/21 10:00 22 113/72 Mechanical Ventilator 70 01/12/21 10:00 22 113/72 Mechanical Ventilator 70 01/12/21 09:04 22 111/72 Mechanical Ventilator 80 01/12/21 09:00 98.9 76 22 111/70 (84) 97 01/12/21 09:00 22 111/72 Mechanical Ventilator 80 01/12/21 08:00 Mechanical Ventilator 01/12/21 08:00 22 118/72 Mechanical Ventilator 80 01/12/21 08:00 22 118/72 Mechanical Ventilator 80 01/12/21 08:00 76 01/12/21 08:00 80 01/12/21 08:00 75 22 118/72 (87) 97 01/12/21 07:12 73 22 70 01/12/21 07:00 79 22 112/71 (85) 97 01/12/21 07:00 22 112/71 Mechanical Ventilator 80 01/12/21 07:00 22 112/71 Mechanical Ventilator 80 01/12/21 06:30 80 22 112/68 (83) 97 01/12/21 06:00 83 22 110/63 (79) 96 01/12/21 06:00 18 106/67 Mechanical Ventilator 15.0 80 01/12/21 06:00 22 106/67 Mechanical Ventilator 80 01/12/21 05:30 88 18 106/67 (80) 96 01/12/21 05:11 99.8 01/12/21 05:00 22 106/67 Mechanical Ventilator 80 01/12/21 05:00 22 106/67 Mechanical Ventilator 80 01/12/21 05:00 88 17 109/72 (84) 97 01/12/21 04:30 83 16 111/65 (80) 99 01/12/21 04:00 80 01/12/21 04:00 99.7 93 20 111/65 (80) 98 01/12/21 04:00 22 111/65 Mechanical Ventilator 80 01/12/21 04:00 22 111/65 Mechanical Ventilator 80 01/12/21 04:00 85 01/12/21 03:30 22 111/65 Mechanical Ventilator 80 01/12/21 03:30 108 24 127/67 (87) 92 01/12/21 03:15 22 109/62 Mechanical Ventilator 80 01/12/21 03:00 22 109/62 Mechanical Ventilator 80 01/12/21 03:00 22 127/67 Mechanical Ventilator 80 01/12/21 03:00 105 25 121/68 (85) 91 01/12/21 02:45 22 109/62 Mechanical Ventilator 80 01/12/21 02:36 98 25 50 01/12/21 02:30 107 21 112/67 (82) 94 01/12/21 02:30 22 121/68 Mechanical Ventilator 80 01/12/21 02:30 22 121/68 Mechanical Ventilator 80 01/12/21 02:15 22 121/68 Mechanical Ventilator 50 01/12/21 02:15 22 121/68 Mechanical Ventilator 50 01/12/21 02:00 22 109/62 Mechanical Ventilator 50 01/12/21 02:00 22 109/62 Mechanical Ventilator 50 01/12/21 02:00 124 19 109/62 (78) 01/12/21 01:45 22 109/62 Mechanical Ventilator 50 01/12/21 01:45 22 109/62 Mechanical Ventilator 50 01/12/21 01:30 77 22 123/75 (91) 98 01/12/21 01:30 22 120/60 Mechanical Ventilator 50 01/12/21 01:30 22 120/60 Mechanical Ventilator 50 01/12/21 01:15 22 123/75 Mechanical Ventilator 50 01/12/21 01:15 22 123/75 Mechanical Ventilator 50 01/12/21 01:00 76 22 128/75 (92) 98 01/12/21 01:00 22 123/75 Mechanical Ventilator 50 01/12/21 01:00 22 123/75 Mechanical Ventilator 50 01/12/21 00:30 99.9 74 22 128/79 (95) 98 01/12/21 00:00 96 01/12/21 00:00 50 01/12/21 00:00 22 128/79 Mechanical Ventilator 50 01/12/21 00:00 22 128/79 Mechanical Ventilator 50 01/12/21 00:00 74 22 126/80 (95) 98 01/11/21 23:13 22 102/57 Mechanical Ventilator 15.0 50 01/11/21 23:12 22 122/60 Mechanical Ventilator 50 01/11/21 23:06 22 102/57 Mechanical Ventilator 15.0 50 01/11/21 23:00 22 122/60 Mechanical Ventilator 50 01/11/21 23:00 75 22 118/71 (87) 97 01/11/21 22:49 74 22 50 01/11/21 22:00 22 102/57 Mechanical Ventilator 50 01/11/21 22:00 77 22 102/57 (72) 96 01/11/21 21:51 99.9 01/11/21 21:30 74 22 112/67 (82) 96 01/11/21 21:00 100.6 71 22 115/72 (86) 98 01/11/21 21:00 22 112/67 Mechanical Ventilator 50 01/11/21 20:00 22 117/75 Mechanical Ventilator 50 01/11/21 20:00 71 01/11/21 20:00 60 01/11/21 20:00 71 22 113/72 (86) 98 01/11/21 19:30 74 22 108/62 (77) 98 01/11/21 19:02 68 22 50 01/11/21 19:00 67 22 119/76 (90) 98 01/11/21 19:00 22 108/62 Mechanical Ventilator 50 01/11/21 18:00 88 22 113/78 (90) 97 01/11/21 18:00 22 113/78 Mechanical Ventilator 50 01/11/21 18:00 22 Mechanical Ventilator 50 01/11/21 17:30 68 22 110/73 (85) 96 01/11/21 17:00 68 22 118/75 (89) 96 01/11/21 17:00 22 118/75 Mechanical Ventilator 50 01/11/21 17:00 22 Mechanical Ventilator 50 01/11/21 16:30 69 22 118/75 (89) 96 01/11/21 16:00 60 01/11/21 16:00 98.5 66 22 119/73 (88) 96 01/11/21 16:00 22 119/73 Mechanical Ventilator 50 01/11/21 16:00 22 Mechanical Ventilator 50 01/11/21 16:00 66 22 119/73 (88) 96 01/11/21 16:00 68 01/11/21 15:45 22 119/73 Mechanical Ventilator 50 01/11/21 15:45 22 Mechanical Ventilator 50 01/11/21 15:30 22 121/73 Mechanical Ventilator 50 01/11/21 15:30 22 Mechanical Ventilator 50 01/11/21 15:30 73 22 121/73 (89) 97 01/11/21 15:15 22 121/73 Mechanical Ventilator 50 01/11/21 15:15 22 Mechanical Ventilator 50 01/11/21 15:00 22 119/72 Mechanical Ventilator 50 01/11/21 15:00 22 Mechanical Ventilator 50 01/11/21 15:00 69 22 50 01/11/21 15:00 68 22 119/72 (88) 96 01/11/21 14:30 69 22 121/74 (90) 96 01/11/21 14:00 67 22 116/73 (87) 96 01/11/21 14:00 22 116/73 Mechanical Ventilator 50 01/11/21 14:00 22 Mechanical Ventilator 50 01/11/21 13:59 67 22 50 01/11/21 13:30 71 22 121/76 (91) 96 01/11/21 13:00 67 22 121/75 (90) 96 01/11/21 13:00 22 121/75 Mechanical Ventilator 50 01/11/21 13:00 22 Mechanical Ventilator 50 Intake and Output 01/11/21 01/12/21 19:00 07:00 Intake Total 1059.34 ml 1391.91 ml Output Total 1250 ml 1545 ml Balance -190.66 ml -153.09 ml Free Water 50 ml 100 ml IV Total 949.34 ml 991.91 ml Tube Feeding 60 ml 180 ml Other 120 ml Output Urine Total 1250 ml 1545 ml Current Medications Medications (Trade) Dose Ordered Sig/Johnny Route PRN Reason Start Time Stop Time Status Last Admin Dose Admin Acetaminophen (Tylenol) 650 mg Q6H PRN NG Temp >100.5 01/09/21 09:15 02/08/21 09:14 01/12/21 04:41 Acetaminophen (Tylenol) 650 mg Q6H PRN NG Mild Pain (Pain Scale 1-3) 01/09/21 09:15 02/08/21 09:14 Albuterol Sulfate (Proventil MDI) 2 puff Q6HRT INH 01/02/21 19:00 04/02/21 18:59 01/12/21 07:55 Benztropine Mesylate (Cogentin) 1 mg EVERY 12 HOURS NG 01/09/21 09:15 02/01/21 09:14 01/12/21 09:08 Chlorhexidine Gluconate (Myranda-Hex 2%) 1 applic DAILY@2000 TOPIC 01/12/21 20:00 04/12/21 19:59 Dextrose (Dextrose 50%) 25 ml Q30M PRN IV Hypoglycemia 01/06/21 23:45 04/06/21 23:44 Dextrose (Dextrose 50%) 50 ml Q30M PRN IV Hypoglycemia 01/06/21 23:45 04/06/21 23:44 Divalproex Sodium (Depakote) 500 mg EVERY 12 HOURS ORAL 01/02/21 09:00 02/01/21 08:59 01/12/21 09:09 Fentanyl Citrate 250 ml @ 1 mls/hr Q24H IV 01/11/21 10:00 01/13/21 09:59 01/12/21 09:04 Insulin Aspart (NovoLOG) EVERY 6 HOURS SUBQ 01/09/21 12:00 04/04/21 16:29 01/12/21 06:26 Ipratropium [place] (Atrovent Inh) 1 puffs Q6HRT INH 01/02/21 19:00 02/01/21 18:59 01/12/21 07:55 Lorazepam (Ativan 2mg/ml 1ml) 1 mg Q6H PRN IV For Anxiety 01/06/21 16:30 01/13/21 20:59 01/09/21 22:49 Methylprednisolone Sodium Succinate (Solu-MEDROL) 40 mg EVERY 12 HOURS IVP 01/02/21 09:00 04/02/21 08:59 01/12/21 09:07 Midazolam HCl 200 ml @ 0 mls/hr Q24H PRN IV Agitation 01/11/21 20:00 01/13/21 00:00 01/12/21 06:00 Ondansetron HCl (Zofran) 4 mg Q4H PRN IVP Nausea & Vomiting 01/02/21 08:15 02/01/21 08:14 Pantoprazole (Protonix) 40 mg Q12HR IVP 01/08/21 21:00 02/06/21 08:59 01/12/21 09:07 Piperacillin Sod/ Tazobactam Sod 3.375 gm/Sodium Chloride 110 ml @ 27.5 mls/hr EVERY 8 HOURS IVPB 01/09/21 14:00 01/14/21 13:59 01/12/21 06:05 Quetiapine Fumarate (SEROqueL) 200 mg DAILY NG 01/09/21 09:15 02/23/21 09:14 01/12/21 09:13 Risperidone (RisperDAL) 0.5 mg EVERY 12 HOURS NG 01/10/21 21:00 02/24/21 20:59 01/12/21 09:09 Sodium Chloride 1,000 ml @ 75 mls/hr [id number] IV 01/08/21 11:00 02/07/21 10:59 01/12/21 09:10 Warfarin Sodium (Coumadin per pharmacy) 1 ea DAILY PRN MISC Per rx protocol 01/02/21 08:30 02/01/21 08:29 Warfarin Sodium (Warfarin Sod) 2 mg COUMADIN ORAL 01/12/21 17:00 01/12/21 18:00 Laboratory Tests 01/12/21 03:00: White Blood Count 9.2, Red Blood Count 4.84, Hemoglobin 13.8L, Hematocrit 45.6, Mean Corpuscular Volume 94, Mean Corpuscular Hemoglobin 28.4, Mean Corpuscular Hemoglobin Concent 30.2L, Red Cell Distribution Width 14.2, Platelet Count 167, Mean Platelet Volume 10.0, Neutrophils (%) (Auto) 81.1H, Lymphocytes (%) (Auto) 11.2L, Monocytes (%) (Auto) 6.3, Eosinophils (%) (Auto) 0.0, Basophils (%) (Auto) 1.5, Prothrombin Time 19.2H, Prothromb Time International Ratio 1.8H, Sodium Level 147H, Potassium Level 4.5, Chloride Level 111H, Carbon Dioxide Level 27, Anion Gap 9, Blood Urea Nitrogen 25H, Creatinine 1.1, Estimat Glomerular Filtration Rate > 60, Glucose Level 340H, Calcium Level 8.3L, Total Bilirubin 0.7, Aspartate Amino Transf (AST/SGOT) 37, Alanine Aminotransferase (ALT/SGPT) 28, Alkaline Phosphatase 56, Total Protein 6.4, Albumin 1.9L, Globulin 4.5, Albumin/Globulin Ratio 0.4L 01/12/21 08:10: Arterial Blood pH 7.425, Arterial Blood Partial Pressure CO2 41.8, Arterial Blood Partial Pressure O2 85.2, Arterial Blood HCO3 26.8H, Arterial Blood Oxygen Saturation 96.2, Arterial Blood Base Excess 2.2H, Miguelito Test Positive Height (Feet): 5 Height (Inches): 5.00 Weight (Pounds): 233 General Appearance: no apparent distress, other - On prone position EENT: other - Intubated on ventilator Cardiovascular: normal rate Respiratory/Chest: decreased breath sounds Abdomen: distended Avi Frye MD Jan 12, 2021 12:17
--- NOTE | 2021-01-12 12:27 | Consultation ---
History of Present Illness General Date patient seen: Jan 12, 2021 Reason for Hospitalization: Dyspnea/Respdistress Present Illness HPI 60-year-old male Covid positive pressor insufficiency intubated on support currently intensive care unit [facility] being proned intermittently has developed ulceration around the ET tube site surgery called to evaluate assist with care patient seen patient evaluate chart reviewed. Allergies: Coded Allergies: No Known Allergies (Unverified , 01/02/21) COVID-19 Screening Contact w/high risk pt: Yes Experienced COVID-19 symptoms?: Yes Coronavirus symptoms experienc: Fever (T>100.4F or >38C), Chills, Shortness of Breath, Cough Medication History Scheduled Ascorbic Acid* (Ascorbic Acid*), 1,000 MG ORAL BID, (Reported) Benztropine Mesylate* (Benztropine Mesylate*), 1 MG ORAL BID, (Reported) Cholecalciferol (Vitamin D3) (Vitamin D3*), 2,000 INTLU PO DAILY, (Reported) Divalproex Sodium* (Depakote Er*), 1,000 MG ORAL DAILY, (Reported) Docusate Calcium (Docusate Calcium), 240 MG PO TID, (Reported) Gabapentin* (Gabapentin*), 400 MG ORAL THREE TIMES A DAY, (Reported) Insulin Glargine (Lantus), 10 UNITS SUBQ BEDTIME, (Reported) Insulin Glargine (Lantus), 22 UNITS SUBQ ONE TIME A DAY, (Reported) Insulin Regular, Human* (Novolin R*), 0 SUBQ SLIDING SCALE, AC&HS, (Reported) Lacosamide (Vimpat), 200 MG PO BID, (Reported) Magnesium Oxide (Magnesium Oxide), 400 MG ORAL BID, (Reported) Multivitamin With Minerals (Multivitamins With Minerals*), 1 TAB ORAL DAILY, (Reported) Nicotine 14MG Patch* (Nicoderm Cq 14MG*), 1 EACH TD DAILY, (Reported) Potassium Chloride* (K-Dur*), 20 MEQ ORAL DAILY, (Reported) Quetiapine Fumarate* (Seroquel*), 300 MG ORAL DAILY IN THE EVENING, (Reported) Quetiapine Fumarate* (Seroquel*), 200 MG ORAL DAILY, (Reported) Risperidone* (Risperdal*), 0.5 MG ORAL BID, (Reported) Temazepam (Temazepam*), 7.5 MG ORAL BEDTIME, (Reported) Warfarin Sod* (Warfarin Sod*), 5.5 MG ORAL DAILY, (Reported) Zinc Sulfate (Zinc Sulfate*), 220 MG ORAL DAILY, (Reported) Scheduled PRN Acetaminophen* (Acetaminophen 325MG Tablet*), 650 MG ORAL Q6H PRN for MILD PAIN (1-3), (Reported) Tramadol Hcl* (Ultram*), 50 MG ORAL Q12HR PRN for SEVERE PAIN (10), (Reported) Patient History Limited by: medical condition History Provided By: Medical Record, PMD Healthcare decision maker Resuscitation status Advanced Directive on File Past Medical/Surgical History Past Medical/Surgical History: (1) COPD (chronic obstructive pulmonary disease) (2) Essential hypertension (3) Schizophrenia (4) Obesity (5) Diabetes mellitus type 2 in obese (6) History of hydrocephalus (7) Anticoagulant long-term use (8) Bipolar 1 disorder (9) History of deep venous thrombosis or pulmonary embolus (10) Acute hypercapnic respiratory failure (11) Sepsis (12) Respiratory failure with hypoxia (13) Pneumonia due to COVID-19 virus (14) Hyperkalemia (15) DMII (diabetes mellitus, type 2) Review of Systems Review of Symptoms -Q-c-r--e-r-a-l- -R-O-S-:- -n-o- -x-c-g-g-h-t- -l-o-s-s- -o-r- -f-e-v-e-r- -C-n-v-c-s-b-g-e-p-i-c-a-l- -R-O-S-:- -n-o- -c-y-y-n-o-e-s-i-o-n- -o-r- -m-o-o-d- -e-u-p-n-g-e-s-,- -n-o- -m--e-m-o-r-y- -l-o-s-s- -J-c-j-c-f-y-l-m-i-c- -R-O-S-:- -n-o- -q-r-y-u-a-l- -n-r-e-n-g-e-s- -o-r- -e-y-e- -p-u-i-h-b-v-t-i-o-n- -E-N-T- -R-O-S-:- -n-o- -n-a-s-a-l- -a-c-o-e-w-o-t-i-o-n-,- -y-w-u-r-i-n-g- -l-o-s-s-,- -o-b-l-y-l-m-e-s-s- -C-u-s-e-r-g-y- -a-n-d- -R-p-n-r-a-e-l-o-g-y- -R-O-S-:- -n-o- -f-j-g-e-r-g-i-c- -d-x-o-p-t-o-m-s- -o-r- -h-k-h-z-d-g--r-i-a- -Z-v-h-m-p-n-i-d-a-i-c-a-l- -a-n-d- -J-s-j-y-w-t-t-i-c- -R-O-S-:- -n-o- -p-i-g-l-l-e-n- -u-d-e-n-d-s-,- -s-n-y-s-u-a-l- -o-k-h-e-d-i-n-g- -o-r- -u-j-j-i-s-i-n-g- -E-n--y-e-b-r-i-n-e- -R-O-S-:- -n-o- -e-w-i-y-u-r-i-a-,- -f-w-q-r-g-v-p-s-i-a-,- -z-v-b-g-h-t- -r-r-v-n-g-e-s-,- -x-q-a-y-m-n-a-t-u-r-e- -n-p-u-j-e-c-r-a-n-c-e- -O-x-z-a-z-g-a-t-o-r-y- -R-O-S-:- -n-o- -c-o-u-g-h-,- -k-o-q-s-p-g-e-s-s- -o-f- -b-m-t-a-t-h-,- -o-r- -a-g-p-e-z-i-n-g- -V-d-f-w-b-s-z-m-g-c-u-l-a-r- -R-O-S-:- -n-o- -c-h-e-s-t- -p-a-i-n- -o-r- -b-x-f-p-n-e-a- -o-n- -f-f-u--r-t-i-o-n- -V-k-n-y-o-o-j-t-k-c-k-a-i-n-a-l- -R-O-S-:- -s-p-b-i-e-s- -c-v-q-s-g-f-n-a-l- -p-a-i-n-,- -r-s-q-g-h-t- -r-e-d- -b-l-o-o-d- -i-n- -s-t-o-o-l-.- -N-d-o-m-h-v-d-q-x--f-r-g-t-a-l- -R-O-S-:- -n-o- -m-m-b-l-g-i-a-s- -o-r- -e-f-y-p-l-q-l-g-i-a-s- -A-t-x-i-m-e-l-m-y-c-a-l- -R-O-S-:- -n-o- -T-I-A- -o-r- -z-u-o-o-k-e- -j-p-e-p-t-o-m-s- -X-b-o-q-w-r-a-s-q-g-i-c-a-l- -R-O-S-:- -n-o- -n-e-w- -o-r- -y-z-t-n-g-i-n-g- -s-k-i-n- -s-w-n-i-o-n-s-,- -a-t-a-h-e-s- -o-r- -q-e-t-r-i-t-i-s- Unable to obtain given patient's current baseline medical condition intubated on vent Physical Exam Physical Exam General appearance: Ill-appearing with distress, appears stated age Head: Normocephalic, without obvious abnormality, some trauma identified from the ET tube and dressings. Local wound care provided Eyes: conjunctivae/corneas clear. PERRL, EOM's intact. Fundi benign Throat: Lips, mucosa, and tongue normal. Teeth and gums normal Neck: supple, symmetrical, trachea midline, no adenopathy, thyroid: not enlarged, symmetric, no tenderness/mass/nodules, no carotid bruit and no JVD Lungs: Decreased to auscultation bilaterally Heart: regular rate and rhythm, S1, S2 normal, no murmur, click, rub or gallop Abdomen: soft, non-tender. Bowel sounds normal. No masses, no organomegaly Extremities: extremities normal, atraumatic, no cyanosis or edema Pulses: 2+ and symmetric Skin: Skin color, texture, turgor normal. No rashes or lesions Neurologic: Grossly normal Last 24 Hour Vital Signs Date Time Temp Pulse Resp B/P (MAP) Pulse Ox O2 Delivery O2 Flow Rate FiO2 01/12/21 11:13 65 22 60 01/12/21 11:07 66 22 118/67 (84) 98 01/12/21 10:00 77 22 112/69 (83) 98 01/12/21 10:00 22 113/72 Mechanical Ventilator 70 01/12/21 10:00 22 113/72 Mechanical Ventilator 70 01/12/21 09:04 22 111/72 Mechanical Ventilator 80 01/12/21 09:00 98.9 76 22 111/70 (84) 97 01/12/21 09:00 22 111/72 Mechanical Ventilator 80 01/12/21 08:00 Mechanical Ventilator 01/12/21 08:00 22 118/72 Mechanical Ventilator 80 01/12/21 08:00 22 118/72 Mechanical Ventilator 80 01/12/21 08:00 76 01/12/21 08:00 80 01/12/21 08:00 75 22 118/72 (87) 97 01/12/21 07:12 73 22 70 01/12/21 07:00 79 22 112/71 (85) 97 01/12/21 07:00 22 112/71 Mechanical Ventilator 80 01/12/21 07:00 22 112/71 Mechanical Ventilator 80 01/12/21 06:30 80 22 112/68 (83) 97 01/12/21 06:00 83 22 110/63 (79) 96 01/12/21 06:00 18 106/67 Mechanical Ventilator 15.0 80 01/12/21 06:00 22 106/67 Mechanical Ventilator 80 01/12/21 05:30 88 18 106/67 (80) 96 01/12/21 05:11 99.8 01/12/21 05:00 22 106/67 Mechanical Ventilator 80 01/12/21 05:00 22 106/67 Mechanical Ventilator 80 01/12/21 05:00 88 17 109/72 (84) 97 01/12/21 04:30 83 16 111/65 (80) 99 01/12/21 04:00 80 01/12/21 04:00 99.7 93 20 111/65 (80) 98 01/12/21 04:00 22 111/65 Mechanical Ventilator 80 01/12/21 04:00 22 111/65 Mechanical Ventilator 80 01/12/21 04:00 85 01/12/21 03:30 22 111/65 Mechanical Ventilator 80 01/12/21 03:30 108 24 127/67 (87) 92 01/12/21 03:15 22 109/62 Mechanical Ventilator 80 01/12/21 03:00 22 109/62 Mechanical Ventilator 80 01/12/21 03:00 22 127/67 Mechanical Ventilator 80 01/12/21 03:00 105 25 121/68 (85) 91 01/12/21 02:45 22 109/62 Mechanical Ventilator 80 01/12/21 02:36 98 25 50 01/12/21 02:30 107 21 112/67 (82) 94 01/12/21 02:30 22 121/68 Mechanical Ventilator 80 01/12/21 02:30 22 121/68 Mechanical Ventilator 80 01/12/21 02:15 22 121/68 Mechanical Ventilator 50 01/12/21 02:15 22 121/68 Mechanical Ventilator 50 01/12/21 02:00 22 109/62 Mechanical Ventilator 50 01/12/21 02:00 22 109/62 Mechanical Ventilator 50 01/12/21 02:00 124 19 109/62 (78) 01/12/21 01:45 22 109/62 Mechanical Ventilator 50 01/12/21 01:45 22 109/62 Mechanical Ventilator 50 01/12/21 01:30 77 22 123/75 (91) 98 01/12/21 01:30 22 120/60 Mechanical Ventilator 50 01/12/21 01:30 22 120/60 Mechanical Ventilator 50 01/12/21 01:15 22 123/75 Mechanical Ventilator 50 01/12/21 01:15 22 123/75 Mechanical Ventilator 50 01/12/21 01:00 76 22 128/75 (92) 98 01/12/21 01:00 22 123/75 Mechanical Ventilator 50 01/12/21 01:00 22 123/75 Mechanical Ventilator 50 01/12/21 00:30 99.9 74 22 128/79 (95) 98 01/12/21 00:00 96 01/12/21 00:00 50 01/12/21 00:00 22 128/79 Mechanical Ventilator 50 01/12/21 00:00 22 128/79 Mechanical Ventilator 50 01/12/21 00:00 74 22 126/80 (95) 98 01/11/21 23:13 22 102/57 Mechanical Ventilator 15.0 50 01/11/21 23:12 22 122/60 Mechanical Ventilator 50 01/11/21 23:06 22 102/57 Mechanical Ventilator 15.0 50 01/11/21 23:00 22 122/60 Mechanical Ventilator 50 01/11/21 23:00 75 22 118/71 (87) 97 01/11/21 22:49 74 22 50 01/11/21 22:00 22 102/57 Mechanical Ventilator 50 01/11/21 22:00 77 22 102/57 (72) 96 01/11/21 21:51 99.9 01/11/21 21:30 74 22 112/67 (82) 96 01/11/21 21:00 100.6 71 22 115/72 (86) 98 01/11/21 21:00 22 112/67 Mechanical Ventilator 50 01/11/21 20:00 22 117/75 Mechanical Ventilator 50 01/11/21 20:00 71 01/11/21 20:00 60 01/11/21 20:00 71 22 113/72 (86) 98 01/11/21 19:30 74 22 108/62 (77) 98 01/11/21 19:02 68 22 50 01/11/21 19:00 67 22 119/76 (90) 98 01/11/21 19:00 22 108/62 Mechanical Ventilator 50 01/11/21 18:00 88 22 113/78 (90) 97 01/11/21 18:00 22 113/78 Mechanical Ventilator 50 01/11/21 18:00 22 Mechanical Ventilator 50 01/11/21 17:30 68 22 110/73 (85) 96 01/11/21 17:00 68 22 118/75 (89) 96 01/11/21 17:00 22 118/75 Mechanical Ventilator 50 01/11/21 17:00 22 Mechanical Ventilator 50 01/11/21 16:30 69 22 118/75 (89) 96 01/11/21 16:00 60 01/11/21 16:00 98.5 66 22 119/73 (88) 96 01/11/21 16:00 22 119/73 Mechanical Ventilator 50 01/11/21 16:00 22 Mechanical Ventilator 50 01/11/21 16:00 66 22 119/73 (88) 96 01/11/21 16:00 68 01/11/21 15:45 22 119/73 Mechanical Ventilator 50 01/11/21 15:45 22 Mechanical Ventilator 50 01/11/21 15:30 22 121/73 Mechanical Ventilator 50 01/11/21 15:30 22 Mechanical Ventilator 50 01/11/21 15:30 73 22 121/73 (89) 97 01/11/21 15:15 22 121/73 Mechanical Ventilator 50 01/11/21 15:15 22 Mechanical Ventilator 50 01/11/21 15:00 22 119/72 Mechanical Ventilator 50 01/11/21 15:00 22 Mechanical Ventilator 50 01/11/21 15:00 69 22 50 01/11/21 15:00 68 22 119/72 (88) 96 01/11/21 14:30 69 22 121/74 (90) 96 01/11/21 14:00 67 22 116/73 (87) 96 01/11/21 14:00 22 116/73 Mechanical Ventilator 50 01/11/21 14:00 22 Mechanical Ventilator 50 01/11/21 13:59 67 22 50 01/11/21 13:30 71 22 121/76 (91) 96 01/11/21 13:00 67 22 121/75 (90) 96 01/11/21 13:00 22 121/75 Mechanical Ventilator 50 01/11/21 13:00 22 Mechanical Ventilator 50 Intake and Output 01/11/21 01/12/21 19:00 07:00 Intake Total 1059.34 ml 1391.91 ml Output Total 1250 ml 1545 ml Balance -190.66 ml -153.09 ml Free Water 50 ml 100 ml IV Total 949.34 ml 991.91 ml Tube Feeding 60 ml 180 ml Other 120 ml Output Urine Total 1250 ml 1545 ml Laboratory Tests Test 01/12/21 03:00 01/12/21 08:10 White Blood Count 9.2 K/UL (4.8-10.8) Red Blood Count 4.84 M/UL (4.70-6.10) Hemoglobin 13.8 G/DL (14.2-18.0) L Hematocrit 45.6 % (42.0-52.0) Mean Corpuscular Volume 94 FL (80-99) Mean Corpuscular Hemoglobin 28.4 PG (27.0-31.0) Mean Corpuscular Hemoglobin Concent 30.2 G/DL (32.0-36.0) L Red Cell Distribution Width 14.2 % (11.6-14.8) Platelet Count 167 K/UL (150-450) Mean Platelet Volume 10.0 FL (6.5-10.1) Neutrophils (%) (Auto) 81.1 % (45.0-75.0) H Lymphocytes (%) (Auto) 11.2 % (20.0-45.0) L Monocytes (%) (Auto) 6.3 % (1.0-10.0) Eosinophils (%) (Auto) 0.0 % (0.0-3.0) Basophils (%) (Auto) 1.5 % (0.0-2.0) Prothrombin Time 19.2 SEC (9.30-11.50) H Prothromb Time International Ratio 1.8 (0.9-1.1) H Sodium Level 147 MMOL/L (136-145) H Potassium Level 4.5 MMOL/L (3.5-5.1) Chloride Level 111 MMOL/L (98-107) H Carbon Dioxide Level 27 MMOL/L (21-32) Anion Gap 9 mmol/L (5-15) Blood Urea Nitrogen 25 mg/dL (7-18) H Creatinine 1.1 MG/DL (0.55-1.30) Estimat Glomerular Filtration Rate > 60 mL/min (>60) Glucose Level 340 MG/DL (74-106) H Calcium Level 8.3 MG/DL (8.5-10.1) L Total Bilirubin 0.7 MG/DL (0.2-1.0) Aspartate Amino Transf (AST/SGOT) 37 U/L (15-37) Alanine Aminotransferase (ALT/SGPT) 28 U/L (12-78) Alkaline Phosphatase 56 U/L (46-116) Total Protein 6.4 G/DL (6.4-8.2) Albumin 1.9 G/DL (3.4-5.0) L Globulin 4.5 g/dL Albumin/Globulin Ratio 0.4 (1.0-2.7) L Arterial Blood pH 7.425 (7.350-7.450) Arterial Blood Partial Pressure CO2 41.8 mmHg (35.0-45.0) Arterial Blood Partial Pressure O2 85.2 mmHg (75.0-100.0) Arterial Blood HCO3 26.8 mmol/L (22.0-26.0) H Arterial Blood Oxygen Saturation 96.2 % (95-100) Arterial Blood Base Excess 2.2 (-2-2) H Miguelito Test Positive Height (Feet): 5 Height (Inches): 5.00 Weight (Pounds): 233 Medications Current Medications Medications (Trade) Dose Ordered Sig/Johnny Route PRN Reason Start Time Stop Time Status Last Admin Dose Admin Acetaminophen (Tylenol) 650 mg Q6H PRN NG Temp >100.5 01/09/21 09:15 02/08/21 09:14 01/12/21 04:41 Acetaminophen (Tylenol) 650 mg Q6H PRN NG Mild Pain (Pain Scale 1-3) 01/09/21 09:15 02/08/21 09:14 Albuterol Sulfate (Proventil MDI) 2 puff Q6HRT INH 01/02/21 19:00 04/02/21 18:59 01/12/21 07:55 Benztropine Mesylate (Cogentin) 1 mg EVERY 12 HOURS NG 01/09/21 09:15 02/01/21 09:14 01/12/21 09:08 Chlorhexidine Gluconate (Myranda-Hex 2%) 1 applic DAILY@2000 TOPIC 01/12/21 20:00 04/12/21 19:59 Dextrose (Dextrose 50%) 25 ml Q30M PRN IV Hypoglycemia 01/06/21 23:45 04/06/21 23:44 Dextrose (Dextrose 50%) 50 ml Q30M PRN IV Hypoglycemia 01/06/21 23:45 04/06/21 23:44 Divalproex Sodium (Depakote) 500 mg EVERY 12 HOURS ORAL 01/02/21 09:00 02/01/21 08:59 01/12/21 09:09 Fentanyl Citrate 250 ml @ 1 mls/hr Q24H IV 01/11/21 10:00 01/13/21 09:59 01/12/21 09:04 Insulin Aspart (NovoLOG) EVERY 6 HOURS SUBQ 01/09/21 12:00 04/04/21 16:29 01/12/21 12:17 Ipratropium [place] (Atrovent Inh) 1 puffs Q6HRT INH 01/02/21 19:00 02/01/21 18:59 01/12/21 07:55 Lorazepam (Ativan 2mg/ml 1ml) 1 mg Q6H PRN IV For Anxiety 01/06/21 16:30 01/13/21 20:59 01/09/21 22:49 Methylprednisolone Sodium Succinate (Solu-MEDROL) 40 mg EVERY 12 HOURS IVP 01/02/21 09:00 04/02/21 08:59 01/12/21 09:07 Midazolam HCl 200 ml @ 0 mls/hr Q24H PRN IV Agitation 01/11/21 20:00 01/13/21 00:00 01/12/21 06:00 Ondansetron HCl (Zofran) 4 mg Q4H PRN IVP Nausea & Vomiting 01/02/21 08:15 02/01/21 08:14 Pantoprazole (Protonix) 40 mg Q12HR IVP 01/08/21 21:00 02/06/21 08:59 01/12/21 09:07 Piperacillin Sod/ Tazobactam Sod 3.375 gm/Sodium Chloride 110 ml @ 27.5 mls/hr EVERY 8 HOURS IVPB 01/09/21 14:00 01/14/21 13:59 01/12/21 06:05 Quetiapine Fumarate (SEROqueL) 200 mg DAILY NG 01/09/21 09:15 02/23/21 09:14 01/12/21 09:13 Risperidone (RisperDAL) 0.5 mg EVERY 12 HOURS NG 01/10/21 21:00 02/24/21 20:59 01/12/21 09:09 Sodium Chloride 1,000 ml @ 75 mls/hr [id number] IV 01/08/21 11:00 02/07/21 10:59 01/12/21 09:10 Warfarin Sodium (Coumadin per pharmacy) 1 ea DAILY PRN MISC Per rx protocol 01/02/21 08:30 02/01/21 08:29 Warfarin Sodium (Warfarin Sod) 2 mg COUMADIN ORAL 01/12/21 17:00 01/12/21 18:00 Assessment/Plan Problem List: (1) COPD (chronic obstructive pulmonary disease) ICD Codes: J44.9 - Chronic obstructive pulmonary disease, unspecified SNOMED: 81719820 (2) Essential hypertension ICD Codes: I10 - Essential (primary) hypertension SNOMED: 06750705 (3) Schizophrenia ICD Codes: F20.9 - Schizophrenia, unspecified SNOMED: 17495870 (4) Obesity ICD Codes: E66.9 - Obesity, unspecified SNOMED: 898527009, 024362206 (5) Diabetes mellitus type 2 in obese ICD Codes: E11.69 - Type 2 diabetes mellitus with other specified complication; E66.9 - Obesity, unspecified SNOMED: 91885302 (6) History of hydrocephalus ICD Codes: Z86.69 - Personal history of other diseases of the nervous system and sense organs SNOMED: 805165729 (7) Anticoagulant long-term use 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 SNOMED: 162668494 (8) Bipolar 1 disorder ICD Codes: F31.9 - Bipolar disorder, unspecified SNOMED: 180526384 (9) History of deep venous thrombosis or pulmonary embolus SNOMED: 496117253 (10) Acute hypercapnic respiratory failure ICD Codes: J96.02 - Acute respiratory failure with hypercapnia SNOMED: 875937846 (11) Sepsis Assessment & Plan: 60-year-old male Covid positive respiratory insufficiency and severe decline being prone intubated on vent support labs noted septic ill- appearing has been developing wound around the face from ET tube.Receiv ed report from [facility] pt is being proned and was observed to have developed a blood blister under vent tape on L cheek and L earlobe. Skin assessed and pt was observed to have a blood blister that is 50% de-capped,50% intact. Intact Blood Blister noted to L earlobe. Skin Barrier applied to affected areas. Optifoam Thin foam placed between vent anchor and pt's skin. Optifoam thin placed to R cheek under Vent tape, on Bridge of nose and both earlobes. Given patient's critical status current care plan and findings nutritional optimization is strongly encouraged Covid nutrition plan initiated. All Covid precautions are being taken. Imaging reviewed. Will follow with care plan. Thank you Mike participation care Tx.Plan: Maintain Optifoam Thin foam to R and L cheeks,Bridge of Nose and Both Ears . Change every 7 days and prn.( May request Optifoam Thin from [facility] dept). APM/PEPE Mattress overlay DAILY ESTIMATED NEEDS: Needs based on Critical care, pulmonary, obese 73.7kg abw 22-28 kcals/kg 4937-6289 total kcals 1.2-2 g protein/kg 88-147 g total protein 25-30 mL/kg 1570-3337 total fluid mLs NUTRITION DIAGNOSIS: Altered nutrition related lab values r/t steroidal meds, clinical status as evidenced by febrile on adm (102.5), elevated BG (270 287) on solumedrol, elevated lipid panel (Triglycerides 333, Chol 370, LDL 150). CURRENT TF:Vital @30ml/hr, now Nepro @30 ENTERAL NUTRITION RECOMMENDATIONS: NEPRO @30ml/hr while supine to provide x8 hrs feeds: 360ml, 648 kcal, 29g pro, 262ml free H2O - Feed at rate best tolerated, currently not meeting est needs d/t proning and aspiration risk w/ supine feeds limited to 8hrs/day. - W/ reduced aspiration risk rec feedings to total Volume of 900ml/day of Nepro as medically able. - Monitor tolerance, position/HOB >30 degrees, hemodynamic stability and ability to increase to meet est kcal and pro needs. - With increase pressor support, rec trophic feeds of 10ml/hr for gut integrity. - When tolerating TF at goal add Prosource BID to better meet est pro needs. ADDITIONAL RECOMMENDATIONS: 1) Now intubated, TF recs above when off proning (8hrs feeds) 2) Obtain calibrated bedscale wts 3) HgA1C/ elevated BG Need for niss while on D5 4) Lytes daily; replete as needed 5) Monitor triglycerides, TF tolerance, hemodynamic stability. ICD Codes: A41.9 - Sepsis, unspecified organism SNOMED: 00239764 Qualifiers: Qualified Codes: A41.9 - Sepsis, unspecified organism; R65.20 - Severe sepsis without septic shock; J96.01 - Acute respiratory failure with hypoxia (12) Respiratory failure with hypoxia ICD Codes: J96.91 - Respiratory failure, unspecified with hypoxia SNOMED: 70089063507058401 Qualifiers: Qualified Codes: J96.01 - Acute respiratory failure with hypoxia (13) Pneumonia due to COVID-19 virus ICD Codes: U07.1 - COVID-19; J12.82 - Pneumonia due to coronavirus disease 2018 SNOMED: 599019025259873820 (14) Hyperkalemia ICD Codes: E87.5 - Hyperkalemia SNOMED: 03467524 (15) DMII (diabetes mellitus, type 2) ICD Codes: E11.9 - Type 2 diabetes mellitus without complications SNOMED: 65274470 Ki Strong Jan 12, 2021 12:27
--- NOTE | 2021-01-12 14:04 | Pulmonology Progress Note ---
Subjective ROS Limited/Unobtainable: Yes Allergies: Coded Allergies: No Known Allergies (Unverified , 01/02/21) Objective Last 24 Hour Vital Signs Date Time Temp Pulse Resp B/P (MAP) Pulse Ox O2 Delivery O2 Flow Rate FiO2 01/12/21 13:00 64 22 127/74 (91) 97 01/12/21 13:00 22 125/77 Mechanical Ventilator 70 01/12/21 13:00 22 125/77 Mechanical Ventilator 70 01/12/21 12:00 62 01/12/21 12:00 62 22 125/77 (93) 97 01/12/21 12:00 22 123/80 Mechanical Ventilator 70 01/12/21 12:00 22 123/80 Mechanical Ventilator 70 01/12/21 12:00 70 01/12/21 12:00 98.9 66 22 123/80 (94) 96 01/12/21 11:13 65 22 60 01/12/21 11:07 66 22 118/67 (84) 98 01/12/21 11:00 22 118/67 Mechanical Ventilator 70 01/12/21 11:00 22 118/67 Mechanical Ventilator 70 01/12/21 10:00 77 22 112/69 (83) 98 01/12/21 10:00 22 113/72 Mechanical Ventilator 70 01/12/21 10:00 22 113/72 Mechanical Ventilator 70 01/12/21 09:04 22 111/72 Mechanical Ventilator 80 01/12/21 09:00 98.9 76 22 111/70 (84) 97 01/12/21 09:00 22 111/72 Mechanical Ventilator 80 01/12/21 08:00 Mechanical Ventilator 01/12/21 08:00 22 118/72 Mechanical Ventilator 80 01/12/21 08:00 22 118/72 Mechanical Ventilator 80 01/12/21 08:00 76 01/12/21 08:00 80 01/12/21 08:00 75 22 118/72 (87) 97 01/12/21 07:12 73 22 70 01/12/21 07:00 79 22 112/71 (85) 97 01/12/21 07:00 22 112/71 Mechanical Ventilator 80 01/12/21 07:00 22 112/71 Mechanical Ventilator 80 01/12/21 06:30 80 22 112/68 (83) 97 01/12/21 06:00 83 22 110/63 (79) 96 01/12/21 06:00 18 106/67 Mechanical Ventilator 15.0 80 01/12/21 06:00 22 106/67 Mechanical Ventilator 80 01/12/21 05:30 88 18 106/67 (80) 96 01/12/21 05:11 99.8 01/12/21 05:00 22 106/67 Mechanical Ventilator 80 01/12/21 05:00 22 106/67 Mechanical Ventilator 80 01/12/21 05:00 88 17 109/72 (84) 97 01/12/21 04:30 83 16 111/65 (80) 99 01/12/21 04:00 80 01/12/21 04:00 99.7 93 20 111/65 (80) 98 01/12/21 04:00 22 111/65 Mechanical Ventilator 80 01/12/21 04:00 22 111/65 Mechanical Ventilator 80 01/12/21 04:00 85 01/12/21 03:30 22 111/65 Mechanical Ventilator 80 01/12/21 03:30 108 24 127/67 (87) 92 01/12/21 03:15 22 109/62 Mechanical Ventilator 80 01/12/21 03:00 22 109/62 Mechanical Ventilator 80 01/12/21 03:00 22 127/67 Mechanical Ventilator 80 01/12/21 03:00 105 25 121/68 (85) 91 01/12/21 02:45 22 109/62 Mechanical Ventilator 80 01/12/21 02:36 98 25 50 01/12/21 02:30 107 21 112/67 (82) 94 01/12/21 02:30 22 121/68 Mechanical Ventilator 80 01/12/21 02:30 22 121/68 Mechanical Ventilator 80 01/12/21 02:15 22 121/68 Mechanical Ventilator 50 01/12/21 02:15 22 121/68 Mechanical Ventilator 50 01/12/21 02:00 22 109/62 Mechanical Ventilator 50 01/12/21 02:00 22 109/62 Mechanical Ventilator 50 01/12/21 02:00 124 19 109/62 (78) 01/12/21 01:45 22 109/62 Mechanical Ventilator 50 01/12/21 01:45 22 109/62 Mechanical Ventilator 50 01/12/21 01:30 77 22 123/75 (91) 98 01/12/21 01:30 22 120/60 Mechanical Ventilator 50 01/12/21 01:30 22 120/60 Mechanical Ventilator 50 01/12/21 01:15 22 123/75 Mechanical Ventilator 50 01/12/21 01:15 22 123/75 Mechanical Ventilator 50 01/12/21 01:00 76 22 128/75 (92) 98 01/12/21 01:00 22 123/75 Mechanical Ventilator 50 01/12/21 01:00 22 123/75 Mechanical Ventilator 50 01/12/21 00:30 99.9 74 22 128/79 (95) 98 01/12/21 00:00 96 01/12/21 00:00 50 01/12/21 00:00 22 128/79 Mechanical Ventilator 50 01/12/21 00:00 22 128/79 Mechanical Ventilator 50 01/12/21 00:00 74 22 126/80 (95) 98 01/11/21 23:13 22 102/57 Mechanical Ventilator 15.0 50 01/11/21 23:12 22 122/60 Mechanical Ventilator 50 01/11/21 23:06 22 102/57 Mechanical Ventilator 15.0 50 01/11/21 23:00 22 122/60 Mechanical Ventilator 50 01/11/21 23:00 75 22 118/71 (87) 97 01/11/21 22:49 74 22 50 01/11/21 22:00 22 102/57 Mechanical Ventilator 50 01/11/21 22:00 77 22 102/57 (72) 96 01/11/21 21:51 99.9 01/11/21 21:30 74 22 112/67 (82) 96 01/11/21 21:00 100.6 71 22 115/72 (86) 98 01/11/21 21:00 22 112/67 Mechanical Ventilator 50 01/11/21 20:00 22 117/75 Mechanical Ventilator 50 01/11/21 20:00 71 01/11/21 20:00 60 01/11/21 20:00 71 22 113/72 (86) 98 01/11/21 19:30 74 22 108/62 (77) 98 01/11/21 19:02 68 22 50 01/11/21 19:00 67 22 119/76 (90) 98 01/11/21 19:00 22 108/62 Mechanical Ventilator 50 01/11/21 18:00 88 22 113/78 (90) 97 01/11/21 18:00 22 113/78 Mechanical Ventilator 50 01/11/21 18:00 22 Mechanical Ventilator 50 01/11/21 17:30 68 22 110/73 (85) 96 01/11/21 17:00 68 22 118/75 (89) 96 01/11/21 17:00 22 118/75 Mechanical Ventilator 50 01/11/21 17:00 22 Mechanical Ventilator 50 01/11/21 16:30 69 22 118/75 (89) 96 01/11/21 16:00 60 01/11/21 16:00 98.5 66 22 119/73 (88) 96 01/11/21 16:00 22 119/73 Mechanical Ventilator 50 01/11/21 16:00 22 Mechanical Ventilator 50 01/11/21 16:00 66 22 119/73 (88) 96 01/11/21 16:00 68 01/11/21 15:45 22 119/73 Mechanical Ventilator 50 01/11/21 15:45 22 Mechanical Ventilator 50 01/11/21 15:30 22 121/73 Mechanical Ventilator 50 01/11/21 15:30 22 Mechanical Ventilator 50 01/11/21 15:30 73 22 121/73 (89) 97 01/11/21 15:15 22 121/73 Mechanical Ventilator 50 01/11/21 15:15 22 Mechanical Ventilator 50 01/11/21 15:00 22 119/72 Mechanical Ventilator 50 01/11/21 15:00 22 Mechanical Ventilator 50 01/11/21 15:00 69 22 50 01/11/21 15:00 68 22 119/72 (88) 96 01/11/21 14:30 69 22 121/74 (90) 96 Intake and Output 01/11/21 01/12/21 19:00 07:00 Intake Total 1059.34 ml 1391.91 ml Output Total 1250 ml 1545 ml Balance -190.66 ml -153.09 ml Free Water 50 ml 100 ml IV Total 949.34 ml 991.91 ml Tube Feeding 60 ml 180 ml Other 120 ml Output Urine Total 1250 ml 1545 ml Microbiology Date/Time Source Procedure Growth Status 01/10/21 14:10 Blood Blood Culture - Preliminary Resulted 01/10/21 11:30 Blood Blood Culture - Preliminary NO GROWTH AFTER 24 HOURS Resulted Laboratory Tests 01/12/21 03:00: White Blood Count 9.2, Red Blood Count 4.84, Hemoglobin 13.8L, Hematocrit 45.6, Mean Corpuscular Volume 94, Mean Corpuscular Hemoglobin 28.4, Mean Corpuscular Hemoglobin Concent 30.2L, Red Cell Distribution Width 14.2, Platelet Count 167, Mean Platelet Volume 10.0, Neutrophils (%) (Auto) 81.1H, Lymphocytes (%) (Auto) 11.2L, Monocytes (%) (Auto) 6.3, Eosinophils (%) (Auto) 0.0, Basophils (%) (Aut o) 1.5, Prothrombin Time 19.2H, Prothromb Time International Ratio 1.8H, Sodium Level 147H, Potassium Level 4.5, Chloride Level 111H, Carbon Dioxide Level 27, Anion Gap 9, Blood Urea Nitrogen 25H, Creatinine 1.1, Estimat Glomerular Filtration Rate > 60, Glucose Level 340H, Calcium Level 8.3L, Total Bilirubin 0.7, Aspartate Amino Transf (AST/SGOT) 37, Alanine Aminotransferase (ALT/SGPT) 28, Alkaline Phosphatase 56, Total Protein 6.4, Albumin 1.9L, Globulin 4.5, Albumin/Globulin Ratio 0.4L 01/12/21 08:10: Arterial Blood pH 7.425, Arterial Blood Partial Pressure CO2 41.8, Arterial Blood Partial Pressure O2 85.2, Arterial Blood HCO3 26.8H, Arterial Blood Oxygen Saturation 96.2, Arterial Blood Base Excess 2.2H, Miguelito Test Positive Current Medications Medications (Trade) Dose Ordered Sig/Johnny Route PRN Reason Start Time Stop Time Status Last Admin Dose Admin Acetaminophen (Tylenol) 650 mg Q6H PRN NG Temp >100.5 01/09/21 09:15 02/08/21 09:14 01/12/21 04:41 Acetaminophen (Tylenol) 650 mg Q6H PRN NG Mild Pain (Pain Scale 1-3) 01/09/21 09:15 02/08/21 09:14 Albuterol Sulfate (Proventil MDI) 2 puff Q6HRT INH 01/02/21 19:00 04/02/21 18:59 01/12/21 07:55 Benztropine Mesylate (Cogentin) 1 mg EVERY 12 HOURS NG 01/09/21 09:15 02/01/21 09:14 01/12/21 09:08 Chlorhexidine Gluconate (Myranda-Hex 2%) 1 applic DAILY@2000 TOPIC 01/12/21 20:00 04/12/21 19:59 Dextrose (Dextrose 50%) 25 ml Q30M PRN IV Hypoglycemia 01/06/21 23:45 04/06/21 23:44 Dextrose (Dextrose 50%) 50 ml Q30M PRN IV Hypoglycemia 01/06/21 23:45 04/06/21 23:44 Divalproex Sodium (Depakote) 500 mg EVERY 12 HOURS ORAL 01/02/21 09:00 02/01/21 08:59 01/12/21 09:09 Fentanyl Citrate 250 ml @ 1 mls/hr Q24H IV 01/11/21 10:00 01/13/21 09:59 01/12/21 09:04 Insulin Aspart (NovoLOG) EVERY 6 HOURS SUBQ 01/09/21 12:00 04/04/21 16:29 01/12/21 12:17 Ipratropium [place] (Atrovent Inh) 1 puffs Q6HRT INH 01/02/21 19:00 02/01/21 18:59 01/12/21 07:55 Lorazepam (Ativan 2mg/ml 1ml) 1 mg Q6H PRN IV For Anxiety 01/06/21 16:30 01/13/21 20:59 01/09/21 22:49 Methylprednisolone Sodium Succinate (Solu-MEDROL) 40 mg EVERY 12 HOURS IVP 01/02/21 09:00 04/02/21 08:59 01/12/21 09:07 Midazolam HCl 200 ml @ 0 mls/hr Q24H PRN IV Agitation 01/11/21 20:00 01/13/21 00:00 01/12/21 06:00 Ondansetron HCl (Zofran) 4 mg Q4H PRN IVP Nausea & Vomiting 01/02/21 08:15 02/01/21 08:14 Pantoprazole (Protonix) 40 mg Q12HR IVP 01/08/21 21:00 02/06/21 08:59 01/12/21 09:07 Piperacillin Sod/ Tazobactam Sod 3.375 gm/Sodium Chloride 110 ml @ 27.5 mls/hr EVERY 8 HOURS IVPB 01/09/21 14:00 01/14/21 13:59 01/12/21 13:48 Quetiapine Fumarate (SEROqueL) 200 mg DAILY NG 01/09/21 09:15 02/23/21 09:14 01/12/21 09:13 Risperidone (RisperDAL) 0.5 mg EVERY 12 HOURS NG 01/10/21 21:00 02/24/21 20:59 01/12/21 09:09 Sodium Chloride 1,000 ml @ 75 mls/hr [id number] IV 01/08/21 11:00 02/07/21 10:59 01/12/21 09:10 Warfarin Sodium (Coumadin per pharmacy) 1 ea DAILY PRN MISC Per rx protocol 01/02/21 08:30 02/01/21 08:29 Warfarin Sodium (Warfarin Sod) 2 mg COUMADIN ORAL 01/12/21 17:00 01/12/21 18:00 Assessment/Plan Assessment/Plan Pulmonary CCM Progress Note HPI Patient is a 60 man with prior h/o COPD, CPS/bipolar DO, 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 ID following and started on CTx/Azithro + REM + SM 40 IV BID, CXR with bilateral infiltrates,ETT appropriate. 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, NHR, DM2, HTN and hydrocephalus Physical Exam Deferred Covid19 Vital Signs noted Laboratory Tests noted Imaging noted Height (Feet): 5 Height (Inches): 5.00 Weight (Pounds): 233 Medications Medications noted Assessment/Plan Problem List: (1) Pneumonia due to COVID-19 virus ICD Codes: U07.1 - COVID-19; J12.82 - Pneumonia due to coronavirus disease 2018 SNOMED: 578741191580606938 (2) Acute hypercapnic respiratory failure ICD Codes: J96.02 - Acute respiratory failure with hypercapnia SNOMED: 216026946 (3) Respiratory failure with hypoxia ICD Codes: J96.91 - Respiratory failure, unspecified with hypoxia SNOMED: 15998127048788424 Qualifiers: Qualified Codes: J96.01 - Acute respiratory failure with hypoxia (4) COPD (chronic obstructive pulmonary disease) ICD Codes: J44.9 - Chronic obstructive pulmonary disease, unspecified SNOMED: 15687764 (5) History of deep venous thrombosis or pulmonary embolus SNOMED: 012273457 (6) Obesity ICD Codes: E66.9 - Obesity, unspecified SNOMED: 339604639, 567339604 (7) Essential hypertension ICD Codes: I10 - Essential (primary) hypertension SNOMED: 41798919 (8) Diabetes mellitus type 2 in obese ICD Codes: E11.69 - Type 2 diabetes mellitus with other specified complication; E66.9 - Obesity, unspecified SNOMED: 25088938 (9) History of hydrocephalus ICD Codes: Z86.69 - Personal history of other diseases of the nervous system and sense organs SNOMED: 206745340 (10) Schizophrenia ICD Codes: F20.9 - Schizophrenia, unspecified SNOMED: 78668041 (11) Bipolar 1 disorder ICD Codes: F31.9 - Bipolar disorder, unspecified SNOMED: 628010008 (12) Anticoagulant long-term use ICD Codes: Z79.01 - personal care attendant (current) use of anticoagulants SNOMED: 892551481 Assessment/Plan: ACVC - adjust PRN Prone as tolerated Adjust FiO2 to keep SaO2 > 92% HFA's IVF per Renal Pressors PRN F/U inflammatory markers and covid labs ID recs REM/SM 40 per ID Abx per ID F/U Cx's Monitor volumes and renal function DVT Px: Coumadin TF when not proned Anuel Best MD Jan 12, 2021 14:04
--- NOTE | 2021-01-12 16:58 | Internal Med Progress Note ---
Subjective Date of Service: Jan 12, 2021 Physician Name BrownVickey garcia Attending Physician Geovanny Bradley MD Current Medications Medications (Trade) Dose Ordered Sig/Johnny Route PRN Reason Start Time Stop Time Status Last Admin Dose Admin Acetaminophen (Tylenol) 650 mg Q6H PRN NG Temp >100.5 01/09/21 09:15 02/08/21 09:14 01/12/21 04:41 Acetaminophen (Tylenol) 650 mg Q6H PRN NG Mild Pain (Pain Scale 1-3) 01/09/21 09:15 02/08/21 09:14 Albuterol Sulfate (Proventil I) 2 puff Q6HRT INH 01/02/21 19:00 04/02/21 18:59 01/12/21 16:44 Benztropine Mesylate (Cogentin) 1 mg EVERY 12 HOURS NG 01/09/21 09:15 02/01/21 09:14 01/12/21 09:08 Chlorhexidine Gluconate (Myranda-Hex 2%) 1 applic DAILY@2000 TOPIC 01/12/21 20:00 04/12/21 19:59 Dextrose (Dextrose 50%) 25 ml Q30M PRN IV Hypoglycemia 01/06/21 23:45 04/06/21 23:44 Dextrose (Dextrose 50%) 50 ml Q30M PRN IV Hypoglycemia 01/06/21 23:45 04/06/21 23:44 Divalproex Sodium (Depakote) 500 mg EVERY 12 HOURS ORAL 01/02/21 09:00 02/01/21 08:59 01/12/21 09:09 Fentanyl Citrate 250 ml @ 1 mls/hr Q24H IV 01/11/21 10:00 01/13/21 09:59 01/12/21 09:04 Insulin Aspart (NovoLOG) EVERY 6 HOURS SUBQ 01/09/21 12:00 04/04/21 16:29 01/12/21 12:17 Ipratropium [place] (Atrovent Inh) 1 puffs Q6HRT INH 01/02/21 19:00 02/01/21 18:59 01/12/21 16:44 Lorazepam (Ativan 2mg/ml 1ml) 1 mg Q6H PRN IV For Anxiety 01/06/21 16:30 01/13/21 20:59 01/09/21 22:49 Methylprednisolone Sodium Succinate (Solu-MEDROL) 40 mg EVERY 12 HOURS IVP 01/02/21 09:00 04/02/21 08:59 01/12/21 09:07 Midazolam HCl 200 ml @ 0 mls/hr Q24H PRN IV Agitation 01/11/21 20:00 01/13/21 00:00 01/12/21 16:52 Ondansetron HCl (Zofran) 4 mg Q4H PRN IVP Nausea & Vomiting 01/02/21 08:15 02/01/21 08:14 Pantoprazole (Protonix) 40 mg Q12HR IVP 01/08/21 21:00 02/06/21 08:59 01/12/21 09:07 Piperacillin Sod/ Tazobactam Sod 3.375 gm/Sodium Chloride 110 ml @ 27.5 mls/hr EVERY 8 HOURS IVPB 01/09/21 14:00 01/14/21 13:59 01/12/21 13:48 Quetiapine Fumarate (SEROqueL) 200 mg DAILY NG 01/09/21 09:15 02/23/21 09:14 01/12/21 09:13 Risperidone (RisperDAL) 0.5 mg EVERY 12 HOURS NG 01/10/21 21:00 02/24/21 20:59 01/12/21 09:09 Sodium Chloride 1,000 ml @ 75 mls/hr [id number] IV 01/08/21 11:00 02/07/21 10:59 01/12/21 09:10 Warfarin Sodium (Coumadin per pharmacy) 1 ea DAILY PRN MISC Per rx protocol 01/02/21 08:30 02/01/21 08:29 Warfarin Sodium (Warfarin Sod) 2 mg COUMADIN ORAL 01/12/21 17:00 01/12/21 18:00 01/12/21 16:52 Allergies: Coded Allergies: No Known Allergies (Unverified , 01/02/21) ROS Limited/Unobtainable: Yes Subjective 60 YO M admitted with shortness of breath. Now respiratory failure. Cover for Alex Bee-DR Bradley. ICU. Intubated and sedated Objective Last Vital Signs Date Time Temp Pulse Resp B/P (MAP) Pulse Ox O2 Delivery O2 Flow Rate FiO2 2/13/21 16:52 22 121/75 Mechanical Ventilator 70 01/12/21 16:00 71 96 01/12/21 16:00 98.8 01/12/21 06:00 15.0 Laboratory Tests Test 01/12/21 03:00 01/12/21 08:10 White Blood Count 9.2 K/UL (4.8-10.8) Red Blood Count 4.84 M/UL (4.70-6.10) Hemoglobin 13.8 G/DL (14.2-18.0) L Hematocrit 45.6 % (42.0-52.0) Mean Corpuscular Volume 94 FL (80-99) Mean Corpuscular Hemoglobin 28.4 PG (27.0-31.0) Mean Corpuscular Hemoglobin Concent 30.2 G/DL (32.0-36.0) L Red Cell Distribution Width 14.2 % (11.6-14.8) Platelet Count 167 K/UL (150-450) Mean Platelet Volume 10.0 FL (6.5-10.1) Neutrophils (%) (Auto) 81.1 % (45.0-75.0) H Lymphocytes (%) (Auto) 11.2 % (20.0-45.0) L Monocytes (%) (Auto) 6.3 % (1.0-10.0) Eosinophils (%) (Auto) 0.0 % (0.0-3.0) Basophils (%) (Auto) 1.5 % (0.0-2.0) Prothrombin Time 19.2 SEC (9.30-11.50) H Prothromb Time International Ratio 1.8 (0.9-1.1) H Sodium Level 147 MMOL/L (136-145) H Potassium Level 4.5 MMOL/L (3.5-5.1) Chloride Level 111 MMOL/L (98-107) H Carbon Dioxide Level 27 MMOL/L (21-32) Anion Gap 9 mmol/L (5-15) Blood Urea Nitrogen 25 mg/dL (7-18) H Creatinine 1.1 MG/DL (0.55-1.30) Estimat Glomerular Filtration Rate > 60 mL/min (>60) Glucose Level 340 MG/DL (74-106) H Calcium Level 8.3 MG/DL (8.5-10.1) L Total Bilirubin 0.7 MG/DL (0.2-1.0) Aspartate Amino Transf (AST/SGOT) 37 U/L (15-37) Alanine Aminotransferase (ALT/SGPT) 28 U/L (12-78) Alkaline Phosphatase 56 U/L (46-116) Total Protein 6.4 G/DL (6.4-8.2) Albumin 1.9 G/DL (3.4-5.0) L Globulin 4.5 g/dL Albumin/Globulin Ratio 0.4 (1.0-2.7) L Arterial Blood pH 7.425 (7.350-7.450) Arterial Blood Partial Pressure CO2 41.8 mmHg (35.0-45.0) Arterial Blood Partial Pressure O2 85.2 mmHg (75.0-100.0) Arterial Blood HCO3 26.8 mmol/L (22.0-26.0) H Arterial Blood Oxygen Saturation 96.2 % (95-100) Arterial Blood Base Excess 2.2 (-2-2) H Miguelito Test Positive Microbiology Date/Time Source Procedure Growth Status 01/10/21 14:10 Blood Blood Culture - Preliminary Gram Positive Cocci Resulted 01/10/21 11:30 Blood Blood Culture - Preliminary NO GROWTH AFTER 48 HOURS Resulted Intake and Output 01/11/21 01/12/21 19:00 07:00 Intake Total 1059.34 ml 1391.91 ml Output Total 1250 ml 1545 ml Balance -190.66 ml -153.09 ml Free Water 50 ml 100 ml IV Total 949.34 ml 991.91 ml Tube Feeding 60 ml 180 ml Other 120 ml Output Urine Total 1250 ml 1545 ml Objective Objective General: awake, responsive , confused. HEENT: NCAT, sclera anicteric, PERRL, EOMI. Neck: Supple, no significant jugular venous distention, Lungs: mech vent; decreased air at the bases, occasional crackles, no Wheeze. Heart: Regular rate and rhythm, normal S1/S2, no murmurs Abdomen: soft, nontender, nondistended. Normoactive bowel sound, obesity. / Rectal: Refused and deferred. Extremities: Left LE: No Cyanosis , clubbing or edema. Right LE AKA. Neuro: A&O x 2, Able to move all extremities Skin: warm, no rashes or lesions. Assessment/Plan Assessment/Plan Assessment/Plan Assessment/Plan (1) Pneumonia due to COVID-19 virus ICD Codes: U07.1 - COVID-19; J12.82 - Pneumonia due to coronavirus disease 2019 SNOMED: 138309394884344779 (2) Acute hypercapnic respiratory failure ICD Codes: J96.02 - Acute respiratory failure with hypercapnia SNOMED: 431781876 (3) Respiratory failure with hypoxia ICD Codes: J96.91 - Respiratory failure, unspecified with hypoxia SNOMED: 35613329067510300 Qualifiers: Qualified Codes: J96.01 - Acute respiratory failure with hypoxia (4) COPD (chronic obstructive pulmonary disease) ICD Codes: J44.9 - Chronic obstructive pulmonary disease, unspecified SNOMED: 90290584 (5) History of deep venous thrombosis or pulmonary embolus SNOMED: 343592279 (6) Obesity ICD Codes: E66.9 - Obesity, unspecified SNOMED: 760228934, 982322653 (7) Essential hypertension ICD Codes: I10 - Essential (primary) hypertension SNOMED: 42477474 (8) Diabetes mellitus type 2 in obese ICD Codes: E11.69 - Type 2 diabetes mellitus with other specified complication; E66.9 - Obesity, unspecified SNOMED: 47714258 (9) History of hydrocephalus ICD Codes: Z86.69 - Personal history of other diseases of the nervous system and sense organs SNOMED: 698577384 (10) Schizophrenia ICD Codes: F20.9 - Schizophrenia, unspecified SNOMED: 33377051 (11) Bipolar 1 disorder ICD Codes: F31.9 - Bipolar disorder, unspecified SNOMED: 679064326 (12) Anticoagulant long-term use ICD Codes: Z79.01 - intermediate (current) use of anticoagulants SNOMED: 738111841 13. Sepsis=gram pos cocci Assessment/Plan: Optimize pulmonary hygiene/mobilize as tolerated Non Rebreather mask>BIPAP>intubated On Remdesivir IV Solu-Medrol 40 mg IV twice a day. Abx =zosyn F/U Cx's Monitor volumes and renal function DVT Px: Coumadin DC IV fluid Start diet Monitor blood glucose level closely. On levophed, fentanyl and propofol drips Pulmonary=Dr Luis ID=Vickey Mtz MD Jan 12, 2021 16:58
[2021-01-12] MEDS ORDERED: Warfarin Sodium 1mg ORAL SCH (17:00)
[2021-01-12] MEDS: Dyna-Hex 2% Top Sol 2oz TOPIC SCH (20:25)
[2021-01-13] VITALS (33 sets, daily range): BP systolic 92–125; BP diastolic 43–79
[2021-01-13] MEDS: Albuterol 90mcg Inhaler 8gm INH SCH ×4 (01:09→19:31)
[2021-01-13] MEDS: Ipratropium Bromide Inhaler INH SCH ×4 (01:09→19:31)
[2021-01-13] MEDS ORDERED: Versed 100mg/NS 200ml 200 ML IV PRN ×2 (05:15→06:15)
[2021-01-13] MEDS: Piperacillin/Tazobactam 3.375 GM in NS 110 ML IVPB SCH ×3 (05:58→22:39)
[2021-01-13] MEDS: NovoLOG Insulin Flexpen SUBQ SCH ×3 (06:27→17:36)
[2021-01-13 07:00] LABS: BASOPHILS % (AUTO) 2.9 % (0.0-2.0); HEMATOCRIT 42.9 % (42.0-52.0); HEMOGLOBIN 13.2 G/DL (14.2-18.0); LYMPHOCYTES % (AUTO) 8.7 % (20.0-45.0); MEAN CORPUSCULAR VOLUME 93 FL (80-99); MONOCYTES % (AUTO) 7.9 % (1.0-10.0); NEUTROPHILS % (AUTO) 80.6 % (45.0-75.0); PLATELET COUNT 162 K/UL (150-450); RED CELL DISTRIBUTION WIDTH 14.1 % (11.6-14.8); WHITE BLOOD COUNT 10.2 K/UL (4.8-10.8)
[2021-01-13 07:25] LABS: INR 2.1 (0.9-1.1)
[2021-01-13 07:29] LABS: ALANINE AMINOTRANSFERASE 22 U/L (12-78); ALBUMIN 1.8 G/DL (3.4-5.0); ALBUMIN/GLOBULIN RATIO 0.4 (1.0-2.7); ALKALINE PHOSPHATASE 50 U/L (46-116); ANION GAP 8 mmol/L (5-15); ASPARTATE AMINO TRANSFERASE 20 U/L (15-37); BILIRUBIN,TOTAL 0.5 MG/DL (0.2-1.0); BLOOD UREA NITROGEN 23 mg/dL (7-18); CALCIUM 8.2 MG/DL (8.5-10.1); CARBON DIOXIDE 27 MMOL/L (21-32); CHLORIDE 110 MMOL/L (98-107); POTASSIUM 4.5 MMOL/L (3.5-5.1); SODIUM 145 MMOL/L (136-145)
[2021-01-13] MEDS: Pantoprazole Inj IVP SCH ×2 (08:18→20:15)
[2021-01-13] MEDS: Benztropine 1mg tab NG SCH ×2 (08:19→20:15)
[2021-01-13] MEDS: Depakote 500mg tab ORAL SCH (08:19)
[2021-01-13] MEDS: Solu-MEDROL 40mg Inj IVP SCH ×2 (08:19→20:15)
[2021-01-13] MEDS: QUEtiapine 200mg tab NG SCH (08:19)
--- NOTE | 2021-01-13 09:15 | Infectious Diseases Prog Note ---
Assessment/Plan 60yo M with: GPC bacteremia 01/10 BCx 1/2 + GPCs 01/13 BCx ordered COVID pna, severe Acute hypoxia 2/2 COVID pna >> intubated 01/06 Febrile to 103 Normal WBC Elevated AST 51 2/2 Tested positive for COVID at [facility] 2/ COVID PCR positive 2/ BCx NTD CXR: Multifocal pna MRSA nares neg 2/ Intubated in ICU CXR: 1. Appropriately positioned endotracheal and enteric tubes. 2. Stable bilateral airspace disease. 01/07 Resp cx +Yasmine albicans (colonizer) 01/11 CXR: Interval improved bilateral lung aeration. Bibasilar infiltrates/atelectasis. Cr 1.1 HIV screen neg PMH: DM2 COPD HTN SNF resident Plan: Start vanco IV given BCx +GPCs Cont Zosyn #5 given critical illness Cont steroids #11/08, on methylpred 40 IV q12 - defer course to Pulm/Primary, consider stopping given s/p 10 day course wo clear improvement Repeat BCx today F/u 01/10 BCx +GPCs 01/09 SP CTX #7 01/07 SP azithro #5, RDV #5 This institution does not have access to convalescent plasma and only recommended to give in setting of clinical trial Monitor CBC/CMP Monitor temp curve, hemodynamics Monitor resp status D/w RN Thank you for this consult. [facility] will continue to follow. Subjective Allergies: Coded Allergies: No Known Allergies (Unverified , 01/02/21) AF Sedated on vent 01/10 BCx 1/2 +GPCs WBC 10, stable Objective Last 24 Hour Vital Signs Date Time Temp Pulse Resp B/P (MAP) Pulse Ox O2 Delivery O2 Flow Rate FiO2 01/13/21 08:10 78 22 70 01/13/21 07:03 22 106/58 Mechanical Ventilator 80 01/13/21 07:00 67 22 106/58 (74) 99 01/13/21 06:00 22 104/60 Mechanical Ventilator 80 01/13/21 06:00 72 22 104/60 (75) 99 01/13/21 05:00 22 103/59 Mechanical Ventilator 80 01/13/21 05:00 78 22 103/59 (74) 98 01/13/21 04:00 98.4 72 23 108/60 (76) 100 01/13/21 04:00 Mechanical Ventilator 01/13/21 04:00 23 108/60 Mechanical Ventilator 80 01/13/21 04:00 72 01/13/21 04:00 80 01/13/21 03:05 59 22 80 01/13/21 03:00 60 22 108/65 (79) 99 01/13/21 03:00 22 108/65 Mechanical Ventilator 80 01/13/21 02:00 22 106/58 Mechanical Ventilator 90 01/13/21 02:00 72 22 106/58 (74) 99 01/13/21 01:00 22 120/62 Mechanical Ventilator 90 01/13/21 01:00 69 22 110/62 (78) 99 01/13/21 00:00 Mechanical Ventilator 01/13/21 00:00 74 01/13/21 00:00 90 01/13/21 00:00 22 102/58 Mechanical Ventilator 90 01/13/21 00:00 100.4 75 22 102/58 (73) 98 01/12/21 23:00 74 22 101/59 (73) 100 01/12/21 23:00 77 22 60 01/12/21 23:00 22 101/59 Mechanical Ventilator 90 01/12/21 22:00 22 86/43 Mechanical Ventilator 100 01/12/21 22:00 22 86/43 Mechanical Ventilator 100 01/12/21 22:00 77 22 86/43 (57) 100 01/12/21 21:00 73 22 103/57 (72) 100 01/12/21 21:00 22 103/57 Mechanical Ventilator 100 01/12/21 21:00 22 103/57 Mechanical Ventilator 100 01/12/21 20:00 Mechanical Ventilator 01/12/21 20:00 100.0 71 22 106/62 (77) 100 01/12/21 20:00 22 106/62 Mechanical Ventilator 100 01/12/21 20:00 22 106/62 Mechanical Ventilator 100 01/12/21 20:00 100 01/12/21 20:00 69 01/12/21 19:05 70 22 60 01/12/21 19:00 22 114/69 Mechanical Ventilator 70 01/12/21 19:00 22 114/69 Mechanical Ventilator 70 01/12/21 19:00 72 22 114/69 (84) 96 01/12/21 18:00 72 22 118/73 (88) 96 01/12/21 18:00 22 122/73 Mechanical Ventilator 70 01/12/21 18:00 22 122/73 70 01/12/21 17:58 22 116/66 Mechanical Ventilator 70 01/12/21 17:00 72 22 121/73 (89) 96 01/12/21 17:00 22 122/73 Mechanical Ventilator 70 01/12/21 17:00 22 121/73 Mechanical Ventilator 70 01/12/21 16:52 22 121/75 Mechanical Ventilator 70 01/12/21 16:00 71 22 121/75 (90) 96 01/12/21 16:00 98.8 68 22 121/75 (90) 96 01/12/21 16:00 70 01/12/21 16:00 22 121/75 Mechanical Ventilator 70 01/12/21 16:00 22 121/75 Mechanical Ventilator 70 01/12/21 16:00 68 01/12/21 16:00 70 01/12/21 15:14 69 22 60 01/12/21 15:00 22 122/70 Mechanical Ventilator 70 01/12/21 15:00 22 122/70 Mechanical Ventilator 70 01/12/21 15:00 71 22 122/70 (87) 95 01/12/21 14:00 71 22 123/73 (90) 94 01/12/21 14:00 22 123/73 Mechanical Ventilator 70 01/12/21 14:00 22 123/73 Mechanical Ventilator 70 01/12/21 13:00 64 22 127/74 (91) 97 01/12/21 13:00 22 125/77 Mechanical Ventilator 70 01/12/21 13:00 22 125/77 Mechanical Ventilator 70 01/12/21 12:00 62 01/12/21 12:00 62 22 125/77 (93) 97 01/12/21 12:00 22 123/80 Mechanical Ventilator 70 01/12/21 12:00 22 123/80 Mechanical Ventilator 70 01/12/21 12:00 70 01/12/21 12:00 98.9 66 22 123/80 (94) 96 01/12/21 11:13 65 22 60 01/12/21 11:07 66 22 118/67 (84) 98 01/12/21 11:00 22 118/67 Mechanical Ventilator 70 01/12/21 11:00 22 118/67 Mechanical Ventilator 70 01/12/21 10:00 77 22 112/69 (83) 98 01/12/21 10:00 22 113/72 Mechanical Ventilator 70 01/12/21 10:00 22 113/72 Mechanical Ventilator 70 Height (Feet): 5 Height (Inches): 5.00 Weight (Pounds): 233 Gen: NAD HEENT: NCAT, ETT Pulm: BL chest rise, proned Ext: No c/c/e Skin: No visible rashes Neuro: Sedated Microbiology Date/Time Source Procedure Growth Status 01/10/21 14:10 Blood Blood Culture - Preliminary Gram Positive Cocci Resulted 01/10/21 11:30 Blood Blood Culture - Preliminary NO GROWTH AFTER 48 HOURS Resulted Laboratory Tests Test 01/13/21 04:36 White Blood Count 10.2 K/UL (4.8-10.8) Red Blood Count 4.60 M/UL (4.70-6.10) L Hemoglobin 13.2 G/DL (14.2-18.0) L Hematocrit 42.9 % (42.0-52.0) Mean Corpuscular Volume 93 FL (80-99) Mean Corpuscular Hemoglobin 28.6 PG (27.0-31.0) Mean Corpuscular Hemoglobin Concent 30.7 G/DL (32.0-36.0) L Red Cell Distribution Width 14.1 % (11.6-14.8) Platelet Count 162 K/UL (150-450) Mean Platelet Volume 10.9 FL (6.5-10.1) H Neutrophils (%) (Auto) 80.6 % (45.0-75.0) H Lymphocytes (%) (Auto) 8.7 % (20.0-45.0) L Monocytes (%) (Auto) 7.9 % (1.0-10.0) Eosinophils (%) (Auto) 0.0 % (0.0-3.0) Basophils (%) (Auto) 2.9 % (0.0-2.0) H Prothrombin Time 21.4 SEC (9.30-11.50) H Prothromb Time International Ratio 2.1 (0.9-1.1) H Sodium Level 145 MMOL/L (136-145) Potassium Level 4.5 MMOL/L (3.5-5.1) Chloride Level 110 MMOL/L (98-107) H Carbon Dioxide Level 27 MMOL/L (21-32) Anion Gap 8 mmol/L (5-15) Blood Urea Nitrogen 23 mg/dL (7-18) H Creatinine 1.0 MG/DL (0.55-1.30) Estimat Glomerular Filtration Rate > 60 mL/min (>60) Glucose Level 337 MG/DL (74-106) H Calcium Level 8.2 MG/DL (8.5-10.1) L Total Bilirubin 0.5 MG/DL (0.2-1.0) Aspartate Amino Transf (AST/SGOT) 20 U/L (15-37) Alanine Aminotransferase (ALT/SGPT) 22 U/L (12-78) Alkaline Phosphatase 50 U/L (46-116) Total Protein 6.0 G/DL (6.4-8.2) L Albumin 1.8 G/DL (3.4-5.0) L Globulin 4.2 g/dL Albumin/Globulin Ratio 0.4 (1.0-2.7) L Current Medications Medications (Trade) Dose Ordered Sig/Johnny Route PRN Reason Start Time Stop Time Status Last Admin Dose Admin Acetaminophen (Tylenol) 650 mg Q6H PRN NG Temp >100.5 01/09/21 09:15 02/08/21 09:14 01/12/21 04:41 Acetaminophen (Tylenol) 650 mg Q6H PRN NG Mild Pain (Pain Scale 1-3) 01/09/21 09:15 02/08/21 09:14 Albuterol Sulfate (Proventil MDI) 2 puff Q6HRT INH 01/02/21 19:00 04/02/21 18:59 01/13/21 08:10 Benztropine Mesylate (Cogentin) 1 mg EVERY 12 HOURS NG 01/09/21 09:15 02/01/21 09:14 01/12/21 20:25 Chlorhexidine Gluconate (Myranda-Hex 2%) 1 applic DAILY@2000 TOPIC 01/12/21 20:00 04/12/21 19:59 01/12/21 20:25 Dextrose (Dextrose 50%) 25 ml Q30M PRN IV Hypoglycemia 01/06/21 23:45 04/06/21 23:44 Dextrose (Dextrose 50%) 50 ml Q30M PRN IV Hypoglycemia 01/06/21 23:45 04/06/21 23:44 Divalproex Sodium (Depakote) 500 mg EVERY 12 HOURS ORAL 01/02/21 09:00 02/01/21 08:59 01/12/21 20:26 Fentanyl Citrate 250 ml @ 1 mls/hr Q24H IV 01/11/21 10:00 01/13/21 09:59 01/12/21 17:58 Insulin Aspart (NovoLOG) EVERY 6 HOURS SUBQ 01/09/21 12:00 04/04/21 16:29 01/13/21 06:27 Ipratropium [place] (Atrovent Inh) 1 puffs Q6HRT INH 01/02/21 19:00 02/01/21 18:59 01/13/21 08:10 Lorazepam (Ativan 2mg/ml 1ml) 1 mg Q6H PRN IV For Anxiety 01/06/21 16:30 01/13/21 20:59 01/09/21 22:49 Methylprednisolone Sodium Succinate (Solu-MEDROL) 40 mg EVERY 12 HOURS IVP 01/02/21 09:00 04/02/21 08:59 01/13/21 08:19 Midazolam HCl 200 ml @ 0 mls/hr Q24H PRN IV Agitation 01/13/21 06:15 01/20/21 05:14 01/13/21 07:03 Ondansetron HCl (Zofran) 4 mg Q4H PRN IVP Nausea & Vomiting 01/02/21 08:15 02/01/21 08:14 Pantoprazole (Protonix) 40 mg Q12HR IVP 01/08/21 21:00 02/06/21 08:59 01/13/21 08:18 Piperacillin Sod/ Tazobactam Sod 3.375 gm/Sodium Chloride 110 ml @ 27.5 mls/hr EVERY 8 HOURS IVPB 01/09/21 14:00 01/13/21 10:00 01/13/21 05:58 Piperacillin Sod/ Tazobactam Sod 3.375 gm/Sodium Chloride 110 ml @ 27.5 mls/hr EVERY 8 HOURS IVPB 01/13/21 14:00 01/20/21 13:59 Quetiapine Fumarate (SEROqueL) 200 mg DAILY NG 01/09/21 09:15 02/23/21 09:14 01/12/21 09:13 Risperidone (RisperDAL) 0.5 mg EVERY 12 HOURS NG 01/10/21 21:00 02/24/21 20:59 01/12/21 20:25 Sodium Chloride 1,000 ml @ 75 mls/hr [id number] IV 01/08/21 11:00 02/07/21 10:59 01/12/21 09:10 Warfarin Sodium (Coumadin per pharmacy) 1 ea DAILY PRN MISC Per rx protocol 01/02/21 08:30 02/01/21 08:29 Warfarin Sodium (Warfarin Sod) 2 mg COUMADIN ORAL 01/13/21 17:00 01/13/21 19:00 Renetta Gomez M.D. Jan 13, 2021 09:15
[2021-01-13] MEDS: Vancomycin 1.25gm/250ml Premix IVPB SCH ×2 (09:40→20:15)
--- NOTE | 2021-01-13 11:14 | Surgery Progress Note ---
Surgery Progress Note Subjective Additional Comments fi02 60% peep 10 cont weaning ill appearing non responsive Objective Last 24 Hour Vital Signs Date Time Temp Pulse Resp B/P (MAP) Pulse Ox O2 Delivery O2 Flow Rate FiO2 01/13/21 09:48 60 01/13/21 09:00 80 22 99/51 (67) 98 01/13/21 08:30 88 23 94/45 (61) 98 01/13/21 08:10 78 22 70 01/13/21 08:00 99.4 81 22 95/49 (64) 99 01/13/21 08:00 70 01/13/21 08:00 78 01/13/21 08:00 Mechanical Ventilator 01/13/21 07:30 84 22 92/43 (59) 99 01/13/21 07:03 22 106/58 Mechanical Ventilator 80 01/13/21 07:00 67 22 106/58 (74) 99 01/13/21 06:00 22 104/60 Mechanical Ventilator 80 01/13/21 06:00 72 22 104/60 (75) 99 01/13/21 05:00 22 103/59 Mechanical Ventilator 80 01/13/21 05:00 78 22 103/59 (74) 98 01/13/21 04:00 98.4 72 23 108/60 (76) 100 01/13/21 04:00 Mechanical Ventilator 01/13/21 04:00 23 108/60 Mechanical Ventilator 80 01/13/21 04:00 72 01/13/21 04:00 80 01/13/21 03:05 59 22 80 01/13/21 03:00 60 22 108/65 (79) 99 01/13/21 03:00 22 108/65 Mechanical Ventilator 80 01/13/21 02:00 22 106/58 Mechanical Ventilator 90 01/13/21 02:00 72 22 106/58 (74) 99 01/13/21 01:00 22 120/62 Mechanical Ventilator 90 01/13/21 01:00 69 22 110/62 (78) 99 01/13/21 00:00 Mechanical Ventilator 01/13/21 00:00 74 01/13/21 00:00 90 01/13/21 00:00 22 102/58 Mechanical Ventilator 90 01/13/21 00:00 100.4 75 22 102/58 (73) 98 01/12/21 23:00 74 22 101/59 (73) 100 2/13/21 23:00 77 22 60 01/12/21 23:00 22 101/59 Mechanical Ventilator 90 01/12/21 22:00 22 86/43 Mechanical Ventilator 100 01/12/21 22:00 22 86/43 Mechanical Ventilator 100 01/12/21 22:00 77 22 86/43 (57) 100 01/12/21 21:00 73 22 103/57 (72) 100 01/12/21 21:00 22 103/57 Mechanical Ventilator 100 01/12/21 21:00 22 103/57 Mechanical Ventilator 100 01/12/21 20:00 Mechanical Ventilator 01/12/21 20:00 100.0 71 22 106/62 (77) 100 01/12/21 20:00 22 106/62 Mechanical Ventilator 100 01/12/21 20:00 22 106/62 Mechanical Ventilator 100 01/12/21 20:00 100 01/12/21 20:00 69 01/12/21 19:05 70 22 60 01/12/21 19:00 22 114/69 Mechanical Ventilator 70 01/12/21 19:00 22 114/69 Mechanical Ventilator 70 01/12/21 19:00 72 22 114/69 (84) 96 01/12/21 18:00 72 22 118/73 (88) 96 01/12/21 18:00 22 122/73 Mechanical Ventilator 70 01/12/21 18:00 22 122/73 70 01/12/21 17:58 22 116/66 Mechanical Ventilator 70 01/12/21 17:00 72 22 121/73 (89) 96 01/12/21 17:00 22 122/73 Mechanical Ventilator 70 01/12/21 17:00 22 121/73 Mechanical Ventilator 70 01/12/21 16:52 22 121/75 Mechanical Ventilator 70 01/12/21 16:00 71 22 121/75 (90) 96 01/12/21 16:00 98.8 68 22 121/75 (90) 96 01/12/21 16:00 70 01/12/21 16:00 22 121/75 Mechanical Ventilator 70 01/12/21 16:00 22 121/75 Mechanical Ventilator 70 01/12/21 16:00 68 01/12/21 16:00 70 01/12/21 15:14 69 22 60 01/12/21 15:00 22 122/70 Mechanical Ventilator 70 01/12/21 15:00 22 122/70 Mechanical Ventilator 70 01/12/21 15:00 71 22 122/70 (87) 95 01/12/21 14:00 71 22 123/73 (90) 94 01/12/21 14:00 22 123/73 Mechanical Ventilator 70 01/12/21 14:00 22 123/73 Mechanical Ventilator 70 01/12/21 13:00 64 22 127/74 (91) 97 01/12/21 13:00 22 125/77 Mechanical Ventilator 70 01/12/21 13:00 22 125/77 Mechanical Ventilator 70 01/12/21 12:00 62 01/12/21 12:00 62 22 125/77 (93) 97 01/12/21 12:00 22 123/80 Mechanical Ventilator 70 01/12/21 12:00 22 123/80 Mechanical Ventilator 70 01/12/21 12:00 70 01/12/21 12:00 98.9 66 22 123/80 (94) 96 I&O Intake and Output 01/12/21 01/13/21 19:00 07:00 Intake Total 1360 ml 627.5 ml Output Total 1275 ml 1075 ml Balance 85 ml -447.5 ml Free Water 100 ml IV Total 1020 ml 327.5 ml Tube Feeding 60 ml 300 ml Other 180 ml Output Urine Total 1275 ml 1075 ml Dressing: saturated Cardiovascular: RSR Respiratory: decreased breath sounds Abdomen: soft, non-tender, present bowel sounds, non-distended Extremities: edema, no tenderness, no cyanosis Laboratory Tests Test 01/13/21 04:36 01/13/21 09:32 White Blood Count 10.2 K/UL (4.8-10.8) Red Blood Count 4.60 M/UL (4.70-6.10) L Hemoglobin 13.2 G/DL (14.2-18.0) L Hematocrit 42.9 % (42.0-52.0) Mean Corpuscular Volume 93 FL (80-99) Mean Corpuscular Hemoglobin 28.6 PG (27.0-31.0) Mean Corpuscular Hemoglobin Concent 30.7 G/DL (32.0-36.0) L Red Cell Distribution Width 14.1 % (11.6-14.8) Platelet Count 162 K/UL (150-450) Mean Platelet Volume 10.9 FL (6.5-10.1) H Neutrophils (%) (Auto) 80.6 % (45.0-75.0) H Lymphocytes (%) (Auto) 8.7 % (20.0-45.0) L Monocytes (%) (Auto) 7.9 % (1.0-10.0) Eosinophils (%) (Auto) 0.0 % (0.0-3.0) Basophils (%) (Auto) 2.9 % (0.0-2.0) H Prothrombin Time 21.4 SEC (9.30-11.50) H Prothromb Time International Ratio 2.1 (0.9-1.1) H Sodium Level 145 MMOL/L (136-145) Potassium Level 4.5 MMOL/L (3.5-5.1) Chloride Level 110 MMOL/L (98-107) H Carbon Dioxide Level 27 MMOL/L (21-32) Anion Gap 8 mmol/L (5-15) Blood Urea Nitrogen 23 mg/dL (7-18) H Creatinine 1.0 MG/DL (0.55-1.30) Estimat Glomerular Filtration Rate > 60 mL/min (>60) Glucose Level 337 MG/DL (74-106) H Calcium Level 8.2 MG/DL (8.5-10.1) L Total Bilirubin 0.5 MG/DL (0.2-1.0) Aspartate Amino Transf (AST/SGOT) 20 U/L (15-37) Alanine Aminotransferase (ALT/SGPT) 22 U/L (12-78) Alkaline Phosphatase 50 U/L (46-116) Total Protein 6.0 G/DL (6.4-8.2) L Albumin 1.8 G/DL (3.4-5.0) L Globulin 4.2 g/dL Albumin/Globulin Ratio 0.4 (1.0-2.7) L Arterial Blood pH 7.439 (7.350-7.450) Arterial Blood Partial Pressure CO2 39.9 mmHg (35.0-45.0) Arterial Blood Partial Pressure O2 89.9 mmHg (75.0-100.0) Arterial Blood HCO3 26.4 mmol/L (22.0-26.0) H Arterial Blood Oxygen Saturation 96.5 % (95-100) Arterial Blood Base Excess 2.2 (-2-2) H Miguelito Test Positive Plan Problems: (1) COPD (chronic obstructive pulmonary disease) (2) Essential hypertension (3) Schizophrenia (4) Obesity (5) Diabetes mellitus type 2 in obese (6) History of hydrocephalus (7) Anticoagulant long-term use (8) Bipolar 1 disorder (9) History of deep venous thrombosis or pulmonary embolus (10) Acute hypercapnic respiratory failure (11) Sepsis Assessment & Plan: 60-year-old male Covid positive respiratory insufficiency and severe decline being prone intubated on vent support labs noted septic ill- appearing has been developing wound around the face from ET tube.Receiv ed report from [facility] pt is being proned and was observed to have developed a blood blister under vent tape on L cheek and L earlobe. Skin assessed and pt was observed to have a blood blister that is 50% de-capped,50% intact. Intact Blood Blister noted to L earlobe. Skin Barrier applied to affected areas. Optifoam Thin foam placed between vent anchor and pt's skin. Optifoam thin placed to R cheek under Vent tape, on Bridge of nose and both earlobes. Given patient's critical status current care plan and findings nutritional opt imization is strongly encouraged Covid nutrition plan initiated. All Covid precautions are being taken. Imaging reviewed. Will follow with care plan. Thank you [facility].Plan: Maintain Optifoam Thin foam to R and L cheeks,Bridge of Nose and Both Ears . Change every 7 days and prn.( May request Optifoam Thin from [facility] dept). APM/PEPE Mattress overlay DAILY ESTIMATED NEEDS: Needs based on Critical care, pulmonary, obese 73.7kg abw 22-28 kcals/kg [id number] total kcals 1.2-2 g protein/kg 88-147 g total protein 25-30 mL/kg 3554-0602 total fluid mLs NUTRITION DIAGNOSIS: Altered nutrition related lab values r/t steroidal meds, clinical status as evidenced by febrile on adm (102.5), elevated BG (270 287) on solumedrol, elevated lipid panel (Triglycerides 333, Chol 370, LDL 150). CURRENT TF:Vital @30ml/hr, now Nepro @30 ENTERAL NUTRITION RECOMMENDATIONS: NEPRO @30ml/hr while supine to provide x8 hrs feeds: 360ml, 648 kcal, 29g pro, 262ml free H2O - Feed at rate best tolerated, currently not meeting est needs d/t proning and aspiration risk w/ supine feeds limited to 8hrs/day. - W/ reduced aspiration risk rec feedings to total Volume of 900ml/day of Nepro as medically able. - Monitor tolerance, position/HOB >30 degrees, hemodynamic stability and ability to increase to meet est kcal and pro needs. - With increase pressor support, rec trophic feeds of 10ml/hr for gut integrity. - When tolerating TF at goal add Prosource BID to better meet est pro needs. ADDITIONAL RECOMMENDATIONS: 1) Now intubated, TF recs above when off proning (8hrs feeds) 2) Obtain calibrated bedscale wts 3) HgA1C/ elevated BG Need for niss while on D5 4) Lytes daily; replete as needed 5) Monitor triglycerides, TF tolerance, hemodynamic stability. (12) Respiratory failure with hypoxia (13) Pneumonia due to COVID-19 virus (14) Hyperkalemia (15) DMII (diabetes mellitus, type 2) Ki Strong Jan 13, 2021 11:14
--- NOTE | 2021-01-13 14:14 | Nephrology Progress Note ---
Assessment/Plan Problem List: (1) Hyperkalemia (2) Pneumonia due to COVID-19 virus (3) Respiratory failure with hypoxia (4) Obesity (5) Schizophrenia (6) DMII (diabetes mellitus, type 2) Assessment Hyperkalemia Stable renal parameters Hyperglycemia Covid pneumonia due to COVID-19 virus Acute respiratory failure with hypoxia requiring mechanical ventilation History of COPD History of DVT, pulmonary emboli Obese Hypertension History of diabetes Psych condition, schizophrenia, bipolar disease Plan January 13: Labs reviewed. Renal parameters stable. Continue per consultants. Patient remain full code and intubated on ventilator. January 12: Labs reviewed. Renal parameters stable. Patient remains full code. Remains intubated on ventilator and on prone position. Continue per consultants. January 11: Labs reviewed. Renal parameters stable. Continue per consultants. January 10: Labs reviewed. Renal parameters stable. Continue per consultants. Change IV to half-normal saline Kayexalate via NG tube for high potassium Monitor electrolytes and renal parameters Per orders, per consultants Subjective ROS Limited/Unobtainable: Yes Objective Objective Last 24 Hour Vital Signs Date Time Temp Pulse Resp B/P (MAP) Pulse Ox O2 Delivery O2 Flow Rate FiO2 01/13/21 12:00 86 01/13/21 12:00 Mechanical Ventilator 01/13/21 11:40 97 22 70 01/13/21 11:33 50 01/13/21 11:00 90 22 99/53 (68) 99 01/13/21 11:00 22 106/57 Mechanical Ventilator 50 01/13/21 10:30 70 22 109/62 (78) 98 01/13/21 10:00 22 109/62 Mechanical Ventilator 50 01/13/21 10:00 68 22 110/59 (76) 98 01/13/21 09:48 60 01/13/21 09:00 22 104/57 Mechanical Ventilator 60 01/13/21 09:00 80 22 99/51 (67) 98 01/13/21 08:30 88 23 94/45 (61) 98 01/13/21 08:10 78 22 70 01/13/21 08:00 99.4 81 22 95/49 (64) 99 01/13/21 08:00 70 01/13/21 08:00 78 01/13/21 08:00 Mechanical Ventilator 01/13/21 08:00 22 94/45 Mechanical Ventilator 70 01/13/21 07:30 84 22 92/43 (59) 99 01/13/21 07:03 22 106/58 Mechanical Ventilator 80 01/13/21 07:00 67 22 106/58 (74) 99 01/13/21 06:00 22 104/60 Mechanical Ventilator 80 01/13/21 06:00 72 22 104/60 (75) 99 01/13/21 05:00 22 103/59 Mechanical Ventilator 80 01/13/21 05:00 78 22 103/59 (74) 98 01/13/21 04:00 98.4 72 23 108/60 (76) 100 01/13/21 04:00 Mechanical Ventilator 01/13/21 04:00 23 108/60 Mechanical Ventilator 80 01/13/21 04:00 72 01/13/21 04:00 80 01/13/21 03:05 59 22 80 01/13/21 03:00 60 22 108/65 (79) 99 01/13/21 03:00 22 108/65 Mechanical Ventilator 80 01/13/21 02:00 22 106/58 Mechanical Ventilator 90 01/13/21 02:00 72 22 106/58 (74) 99 01/13/21 01:00 22 120/62 Mechanical Ventilator 90 01/13/21 01:00 69 22 110/62 (78) 99 01/13/21 00:00 Mechanical Ventilator 01/13/21 00:00 74 01/13/21 00:00 90 01/13/21 00:00 22 102/58 Mechanical Ventilator 90 01/13/21 00:00 100.4 75 22 102/58 (73) 98 01/12/21 23:00 74 22 101/59 (73) 100 01/12/21 23:00 77 22 60 01/12/21 23:00 22 101/59 Mechanical Ventilator 90 01/12/21 22:00 22 86/43 Mechanical Ventilator 100 01/12/21 22:00 22 86/43 Mechanical Ventilator 100 01/12/21 22:00 77 22 86/43 (57) 100 01/12/21 21:00 73 22 103/57 (72) 100 01/12/21 21:00 22 103/57 Mechanical Ventilator 100 01/12/21 21:00 22 103/57 Mechanical Ventilator 100 01/12/21 20:00 Mechanical Ventilator 01/12/21 20:00 100.0 71 22 106/62 (77) 100 01/12/21 20:00 22 106/62 Mechanical Ventilator 100 01/12/21 20:00 22 106/62 Mechanical Ventilator 100 01/12/21 20:00 100 01/12/21 20:00 69 01/12/21 19:05 70 22 60 01/12/21 19:00 22 114/69 Mechanical Ventilator 70 01/12/21 19:00 22 114/69 Mechanical Ventilator 70 01/12/21 19:00 72 22 114/69 (84) 96 01/12/21 18:00 72 22 118/73 (88) 96 01/12/21 18:00 22 122/73 Mechanical Ventilator 70 01/12/21 18:00 22 122/73 70 01/12/21 17:58 22 116/66 Mechanical Ventilator 70 01/12/21 17:00 72 22 121/73 (89) 96 01/12/21 17:00 22 122/73 Mechanical Ventilator 70 01/12/21 17:00 22 121/73 Mechanical Ventilator 70 01/12/21 16:52 22 121/75 Mechanical Ventilator 70 01/12/21 16:00 71 22 121/75 (90) 96 01/12/21 16:00 98.8 68 22 121/75 (90) 96 01/12/21 16:00 70 01/12/21 16:00 22 121/75 Mechanical Ventilator 70 01/12/21 16:00 22 121/75 Mechanical Ventilator 70 01/12/21 16:00 68 01/12/21 16:00 70 01/12/21 15:14 69 22 60 01/12/21 15:00 22 122/70 Mechanical Ventilator 70 01/12/21 15:00 22 122/70 Mechanical Ventilator 70 01/12/21 15:00 71 22 122/70 (87) 95 Intake and Output 01/12/21 01/13/21 19:00 07:00 Intake Total 1360 ml 627.5 ml Output Total 1275 ml 1075 ml Balance 85 ml -447.5 ml Free Water 100 ml IV Total 1020 ml 327.5 ml Tube Feeding 60 ml 300 ml Other 180 ml Output Urine Total 1275 ml 1075 ml Current Medications Medications (Trade) Dose Ordered Sig/Johnny Route PRN Reason Start Time Stop Time Status Last Admin Dose Admin Acetaminophen (Tylenol) 650 mg Q6H PRN NG Temp >100.5 01/09/21 09:15 02/08/21 09:14 01/12/21 04:41 Acetaminophen (Tylenol) 650 mg Q6H PRN NG Mild Pain (Pain Scale 1-3) 01/09/21 09:15 02/08/21 09:14 Albuterol Sulfate (Proventil MDI) 2 puff Q6HRT INH 01/02/21 19:00 04/02/21 18:59 01/13/21 08:10 Benztropine Mesylate (Cogentin) 1 mg EVERY 12 HOURS NG 01/09/21 09:15 02/01/21 09:14 01/12/21 20:25 Chlorhexidine Gluconate (Myranda-Hex 2%) 1 applic DAILY@2000 TOPIC 01/12/21 20:00 04/12/21 19:59 01/12/21 20:25 Dextrose (Dextrose 50%) 25 ml Q30M PRN IV Hypoglycemia 01/06/21 23:45 04/06/21 23:44 Dextrose (Dextrose 50%) 50 ml Q30M PRN IV Hypoglycemia 01/06/21 23:45 04/06/21 23:44 Divalproex Sodium (Depakote) 500 mg EVERY 12 HOURS ORAL 01/02/21 09:00 02/01/21 08:59 01/12/21 20:26 Insulin Aspart (NovoLOG) EVERY 6 HOURS SUBQ 01/09/21 12:00 04/04/21 16:29 01/13/21 11:47 Ipratropium [place] (Atrovent Inh) 1 puffs Q6HRT INH 01/02/21 19:00 02/01/21 18:59 01/13/21 08:10 Lorazepam (Ativan 2mg/ml 1ml) 1 mg Q6H PRN IV For Anxiety 01/06/21 16:30 01/13/21 20:59 01/09/21 22:49 Methylprednisolone Sodium Succinate (Solu-MEDROL) 40 mg EVERY 12 HOURS IVP 01/02/21 09:00 04/02/21 08:59 01/13/21 08:19 Midazolam HCl 200 ml @ 0 mls/hr Q24H PRN IV Agitation 01/13/21 06:15 01/20/21 05:14 01/13/21 07:03 Ondansetron HCl (Zofran) 4 mg Q4H PRN IVP Nausea & Vomiting 01/02/21 08:15 02/01/21 08:14 Pantoprazole (Protonix) 40 mg Q12HR IVP 01/08/21 21:00 02/06/21 08:59 01/13/21 08:18 Piperacillin Sod/ Tazobactam Sod 3.375 gm/Sodium Chloride 110 ml @ 27.5 mls/hr EVERY 8 HOURS IVPB 01/13/21 14:00 01/20/21 13:59 01/13/21 13:14 Quetiapine Fumarate (SEROqueL) 200 mg DAILY NG 01/09/21 09:15 02/23/21 09:14 01/12/21 09:13 Risperidone (RisperDAL) 0.5 mg EVERY 12 HOURS NG 01/10/21 21:00 02/24/21 20:59 01/12/21 20:25 Sodium Chloride 1,000 ml @ 75 mls/hr [id number] IV 01/08/21 11:00 02/07/21 10:59 01/12/21 09:10 Vancomycin HCl 250 ml @ 166.667 mls/hr Q12HR IVPB 01/13/21 10:00 01/18/21 09:59 01/13/21 09:40 Vancomycin HCl ([facility] to dose) 1 ea DAILY PRN MISC Per rx protocol 01/13/21 09:15 02/12/21 09:14 Warfarin Sodium (Coumadin per pharmacy) 1 ea DAILY PRN MISC Per rx protocol 01/02/21 08:30 02/01/21 08:29 Warfarin Sodium (Warfarin Sod) 2 mg COUMADIN ORAL 01/13/21 17:00 01/13/21 19:00 Laboratory Tests 01/13/21 04:36: White Blood Count 10.2, Red Blood Count 4.60L, Hemoglobin 13.2L, Hematocrit 42.9, Mean Corpuscular Volume 93, Mean Corpuscular Hemoglobin 28.6, Mean Corpuscular Hemoglobin Concent 30.7L, Red Cell Distribution Width 14.1, Platelet Count 162, Mean Platelet Volume 10.9H, Neutrophils (%) (Auto) 80.6H, Lymphocytes (%) (Auto) 8.7L, Monocytes (%) (Auto) 7.9, Eosinophils (%) (Auto) 0.0, Basophils (%) (Auto) 2.9H, Prothrombin Time 21.4H, Prothromb Time International Ratio 2.1H , Sodium Level 145, Potassium Level 4.5, Chloride Level 110H, Carbon Dioxide Level 27, Anion Gap 8, Blood Urea Nitrogen 23H, Creatinine 1.0, Estimat Glomerular Filtration Rate > 60, Glucose Level 337H, Calcium Level 8.2L, Total Bilirubin 0.5, Aspartate Amino Transf (AST/SGOT) 20, Alanine Aminotransferase (ALT/SGPT) 22, Alkaline Phosphatase 50, Total Protein 6.0L, Albumin 1.8L, Globulin 4.2, Albumin/Globulin Ratio 0.4L 01/13/21 09:32: Arterial Blood pH 7.439, Arterial Blood Partial Pressure CO2 39.9, Arterial Blood Partial Pressure O2 89.9, Arterial Blood HCO3 26.4H, Arterial Blood Oxygen Saturation 96.5, Arterial Blood Base Excess 2.2H, Miguelito Test Positive Height (Feet): 5 Height (Inches): 5.00 Weight (Pounds): 233 General Appearance: no apparent distress EENT: other - Intubated on ventilator Cardiovascular: tachycardia Respiratory/Chest: decreased breath sounds Abdomen: distended Avi Frye MD Jan 13, 2021 14:14
--- NOTE | 2021-01-13 15:20 | Internal Med Progress Note ---
Subjective Date of Service: Jan 13, 2021 Physician Name Vickey Brown Attending Physician Geovanny Bradley MD Current Medications Medications (Trade) Dose Ordered Sig/Johnny Route PRN Reason Start Time Stop Time Status Last Admin Dose Admin Acetaminophen (Tylenol) 650 mg Q6H PRN NG Temp >100.5 01/09/21 09:15 02/08/21 09:14 01/12/21 04:41 Acetaminophen (Tylenol) 650 mg Q6H PRN NG Mild Pain (Pain Scale 1-3) 01/09/21 09:15 02/08/21 09:14 Albuterol Sulfate (Proventil RERE) 2 puff Q6HRT INH 01/02/21 19:00 04/02/21 18:59 01/13/21 08:10 Benztropine Mesylate (Cogentin) 1 mg EVERY 12 HOURS NG 01/09/21 09:15 02/01/21 09:14 01/12/21 20:25 Chlorhexidine Gluconate (Myranda-Hex 2%) 1 applic DAILY@2000 TOPIC 01/12/21 20:00 04/12/21 19:59 01/12/21 20:25 Dextrose (Dextrose 50%) 25 ml Q30M PRN IV Hypoglycemia 01/06/21 23:45 04/06/21 23:44 Dextrose (Dextrose 50%) 50 ml Q30M PRN IV Hypoglycemia 01/06/21 23:45 04/06/21 23:44 Divalproex Sodium (Depakote) 500 mg EVERY 12 HOURS ORAL 01/02/21 09:00 02/01/21 08:59 01/12/21 20:26 Insulin Aspart (NovoLOG) EVERY 6 HOURS SUBQ 01/09/21 12:00 04/04/21 16:29 01/13/21 11:47 Ipratropium [place] (Atrovent Inh) 1 puffs Q6HRT INH 01/02/21 19:00 02/01/21 18:59 01/13/21 08:10 Lorazepam (Ativan 2mg/ml 1ml) 1 mg Q6H PRN IV For Anxiety 01/06/21 16:30 01/13/21 20:59 01/09/21 22:49 Methylprednisolone Sodium Succinate (Solu-MEDROL) 40 mg EVERY 12 HOURS IVP 01/02/21 09:00 04/02/21 08:59 01/13/21 08:19 Midazolam HCl 200 ml @ 0 mls/hr Q24H PRN IV Agitation 01/13/21 06:15 01/20/21 05:14 01/13/21 07:03 Ondansetron HCl (Zofran) 4 mg Q4H PRN IVP Nausea & Vomiting 01/02/21 08:15 02/01/21 08:14 Pantoprazole (Protonix) 40 mg Q12HR IVP 01/08/21 21:00 02/06/21 08:59 01/13/21 08:18 Piperacillin Sod/ Tazobactam Sod 3.375 gm/Sodium Chloride 110 ml @ 27.5 mls/hr EVERY 8 HOURS IVPB 01/13/21 14:00 01/20/21 13:59 01/13/21 13:14 Sodium Chloride 1,000 ml @ 75 mls/hr [id number] IV 01/08/21 11:00 02/07/21 10:59 01/12/21 09:10 Vancomycin HCl 250 ml @ 166.667 mls/hr Q12HR IVPB 01/13/21 10:00 01/18/21 09:59 01/13/21 09:40 Vancomycin HCl ([facility] pharmacy to dose) 1 ea DAILY PRN MISC Per rx protocol 01/13/21 09:15 02/12/21 09:14 Warfarin Sodium (Coumadin per pharmacy) 1 ea DAILY PRN MISC Per rx protocol 01/02/21 08:30 02/01/21 08:29 Warfarin Sodium (Warfarin Sod) 2 mg COUMADIN ORAL 01/13/21 17:00 01/13/21 19:00 Allergies: Coded Allergies: No Known Allergies (Unverified , 01/02/21) ROS Limited/Unobtainable: Yes Subjective 60 YO M admitted with shortness of breath. Now respiratory failure. Cover for Int Rohit-DR Bradley. ICU. Intubated and sedated Objective Last Vital Signs Date Time Temp Pulse Resp B/P (MAP) Pulse Ox O2 Delivery O2 Flow Rate FiO2 01/13/21 13:00 22 104/58 Mechanical Ventilator 50 01/13/21 12:00 86 01/13/21 11:00 99 01/13/21 08:00 99.4 01/12/21 06:00 15.0 Laboratory Tests Test 01/13/21 04:36 01/13/21 09:32 White Blood Count 10.2 K/UL (4.8-10.8) Red Blood Count 4.60 M/UL (4.70-6.10) L Hemoglobin 13.2 G/DL (14.2-18.0) L Hematocrit 42.9 % (42.0-52.0) Mean Corpuscular Volume 93 FL (80-99) Mean Corpuscular Hemoglobin 28.6 PG (27.0-31.0) Mean Corpuscular Hemoglobin Concent 30.7 G/DL (32.0-36.0) L Red Cell Distribution Width 14.1 % (11.6-14.8) Platelet Count 162 K/UL (150-450) Mean Platelet Volume 10.9 FL (6.5-10.1) H Neutrophils (%) (Auto) 80.6 % (45.0-75.0) H Lymphocytes (%) (Auto) 8.7 % (20.0-45.0) L Monocytes (%) (Auto) 7.9 % (1.0-10.0) Eosinophils (%) (Auto) 0.0 % (0.0-3.0) Basophils (%) (Auto) 2.9 % (0.0-2.0) H Prothrombin Time 21.4 SEC (9.30-11.50) H Prothromb Time International Ratio 2.1 (0.9-1.1) H Sodium Level 145 MMOL/L (136-145) Potassium Level 4.5 MMOL/L (3.5-5.1) Chloride Level 110 MMOL/L (98-107) H Carbon Dioxide Level 27 MMOL/L (21-32) Anion Gap 8 mmol/L (5-15) Blood Urea Nitrogen 23 mg/dL (7-18) H Creatinine 1.0 MG/DL (0.55-1.30) Estimat Glomerular Filtration Rate > 60 mL/min (>60) Glucose Level 337 MG/DL (74-106) H Calcium Level 8.2 MG/DL (8.5-10.1) L Total Bilirubin 0.5 MG/DL (0.2-1.0) Aspartate Amino Transf (AST/SGOT) 20 U/L (15-37) Alanine Aminotransferase (ALT/SGPT) 22 U/L (12-78) Alkaline Phosphatase 50 U/L (46-116) Total Protein 6.0 G/DL (6.4-8.2) L Albumin 1.8 G/DL (3.4-5.0) L Globulin 4.2 g/dL Albumin/Globulin Ratio 0.4 (1.0-2.7) L Arterial Blood pH 7.439 (7.350-7.450) Arterial Blood Partial Pressure CO2 39.9 mmHg (35.0-45.0) Arterial Blood Partial Pressure O2 89.9 mmHg (75.0-100.0) Arterial Blood HCO3 26.4 mmol/L (22.0-26.0) H Arterial Blood Oxygen Saturation 96.5 % (95-100) Arterial Blood Base Excess 2.2 (-2-2) H Miguelito Test Positive Intake and Output 01/12/21 01/13/21 19:00 07:00 Intake Total 1360 ml 627.5 ml Output Total 1275 ml 1075 ml Balance 85 ml -447.5 ml Free Water 100 ml IV Total 1020 ml 327.5 ml Tube Feeding 60 ml 300 ml Other 180 ml Output Urine Total 1275 ml 1075 ml Objective Objective General: awake, responsive , confused. HEENT: NCAT, sclera anicteric, PERRL, EOMI. Neck: Supple, no significant jugular venous distention, Lungs: mech vent; decreased air at the bases, occasional crackles, no Wheeze. Heart: Regular rate and rhythm, normal S1/S2, no murmurs Abdomen: soft, nontender, nondistended. Normoactive bowel sound, obesity. / Rectal: Refused and deferred. Extremities: Left LE: No Cyanosis , clubbing or edema. Right LE AKA. Neuro: A&O x 2, Able to move all extremities Skin: warm, no rashes or lesions. Assessment/Plan Assessment/Plan Assessment/Plan Assessment/Plan (1) Pneumonia due to COVID-19 virus ICD Codes: U07.1 - COVID-19; J12.82 - Pneumonia due to coronavirus disease 2019 SNOMED: 682837436537372973 (2) Acute hypercapnic respiratory failure ICD Codes: J96.02 - Acute respiratory failure with hypercapnia SNOMED: 380235459 (3) Respiratory failure with hypoxia ICD Codes: J96.91 - Respiratory failure, unspecified with hypoxia SNOMED: 20741366628664115 Qualifiers: Qualified Codes: J96.01 - Acute respiratory failure with hypoxia (4) COPD (chronic obstructive pulmonary disease) ICD Codes: J44.9 - Chronic obstructive pulmonary disease, unspecified SNOMED: 13707410 (5) History of deep venous thrombosis or pulmonary embolus SNOMED: 310123602 (6) Obesity ICD Codes: E66.9 - Obesity, unspecified SNOMED: 095053613, 225264680 (7) Essential hypertension ICD Codes: I10 - Essential (primary) hypertension SNOMED: 94843266 (8) Diabetes mellitus type 2 in obese ICD Codes: E11.69 - Type 2 diabetes mellitus with other specified complication; E66.9 - Obesity, unspecified SNOMED: 11937761 (9) History of hydrocephalus ICD Codes: Z86.69 - Personal history of other diseases of the nervous system and sense organs SNOMED: 453023197 (10) Schizophrenia ICD Codes: F20.9 - Schizophrenia, unspecified SNOMED: 83152419 (11) Bipolar 1 disorder ICD Codes: F31.9 - Bipolar disorder, unspecified SNOMED: 552698008 (12) Anticoagulant long-term use ICD Codes: Z79.01 - public health physician (current) use of anticoagulants SNOMED: 799413275 13. Sepsis=gram pos cocci Assessment/Plan: Optimize pulmonary hygiene/mobilize as tolerated Non Rebreather mask>BIPAP>intubated On Remdesivir IV Solu-Medrol 40 mg IV twice a day. Abx =zosyn F/U Cx's Monitor volumes and renal function DVT Px: Coumadin DC IV fluid Start diet Monitor blood glucose level closely. On levophed, fentanyl and propofol drips Pulmonary=Dr Luis ID=Vickey Mtz MD Jan 13, 2021 15:20
--- NOTE | 2021-01-13 16:23 | Pulmonology Progress Note ---
Subjective ROS Limited/Unobtainable: Yes Allergies: Coded Allergies: No Known Allergies (Unverified , 01/02/21) Objective Last 24 Hour Vital Signs Date Time Temp Pulse Resp B/P (MAP) Pulse Ox O2 Delivery O2 Flow Rate FiO2 01/13/21 16:00 106 01/13/21 16:00 50 01/13/21 13:00 22 104/58 Mechanical Ventilator 50 01/13/21 12:00 86 01/13/21 12:00 22 110/64 Mechanical Ventilator 50 01/13/21 12:00 Mechanical Ventilator 01/13/21 11:40 97 22 70 01/13/21 11:33 50 01/13/21 11:00 90 22 99/53 (68) 99 01/13/21 11:00 22 106/57 Mechanical Ventilator 50 01/13/21 10:30 70 22 109/62 (78) 98 01/13/21 10:00 22 109/62 Mechanical Ventilator 50 01/13/21 10:00 68 22 110/59 (76) 98 01/13/21 09:48 60 01/13/21 09:00 22 104/57 Mechanical Ventilator 60 01/13/21 09:00 80 22 99/51 (67) 98 01/13/21 08:30 88 23 94/45 (61) 98 01/13/21 08:10 78 22 70 01/13/21 08:00 99.4 81 22 95/49 (64) 99 01/13/21 08:00 70 01/13/21 08:00 78 01/13/21 08:00 Mechanical Ventilator 01/13/21 08:00 22 94/45 Mechanical Ventilator 70 01/13/21 07:30 84 22 92/43 (59) 99 01/13/21 07:03 22 106/58 Mechanical Ventilator 80 01/13/21 07:00 67 22 106/58 (74) 99 01/13/21 06:00 22 104/60 Mechanical Ventilator 80 01/13/21 06:00 72 22 104/60 (75) 99 01/13/21 05:00 22 103/59 Mechanical Ventilator 80 01/13/21 05:00 78 22 103/59 (74) 98 01/13/21 04:00 98.4 72 23 108/60 (76) 100 01/13/21 04:00 Mechanical Ventilator 01/13/21 04:00 23 108/60 Mechanical Ventilator 80 01/13/21 04:00 72 01/13/21 04:00 80 01/13/21 03:05 59 22 80 01/13/21 03:00 60 22 108/65 (79) 99 01/13/21 03:00 22 108/65 Mechanical Ventilator 80 01/13/21 02:00 22 106/58 Mechanical Ventilator 90 01/13/21 02:00 72 22 106/58 (74) 99 01/13/21 01:00 22 120/62 Mechanical Ventilator 90 01/13/21 01:00 69 22 110/62 (78) 99 01/13/21 00:00 Mechanical Ventilator 01/13/21 00:00 74 01/13/21 00:00 90 01/13/21 00:00 22 102/58 Mechanical Ventilator 90 01/13/21 00:00 100.4 75 22 102/58 (73) 98 01/12/21 23:00 74 22 101/59 (73) 100 01/12/21 23:00 77 22 60 01/12/21 23:00 22 101/59 Mechanical Ventilator 90 01/12/21 22:00 22 86/43 Mechanical Ventilator 100 01/12/21 22:00 22 86/43 Mechanical Ventilator 100 01/12/21 22:00 77 22 86/43 (57) 100 01/12/21 21:00 73 22 103/57 (72) 100 01/12/21 21:00 22 103/57 Mechanical Ventilator 100 01/12/21 21:00 22 103/57 Mechanical Ventilator 100 01/12/21 20:00 Mechanical Ventilator 01/12/21 20:00 100.0 71 22 106/62 (77) 100 01/12/21 20:00 22 106/62 Mechanical Ventilator 100 01/12/21 20:00 22 106/62 Mechanical Ventilator 100 01/12/21 20:00 100 01/12/21 20:00 69 01/12/21 19:05 70 22 60 01/12/21 19:00 22 114/69 Mechanical Ventilator 70 01/12/21 19:00 22 114/69 Mechanical Ventilator 70 01/12/21 19:00 72 22 114/69 (84) 96 01/12/21 18:00 72 22 118/73 (88) 96 01/12/21 18:00 22 122/73 Mechanical Ventilator 70 01/12/21 18:00 22 122/73 70 01/12/21 17:58 22 116/66 Mechanical Ventilator 70 01/12/21 17:00 72 22 121/73 (89) 96 01/12/21 17:00 22 122/73 Mechanical Ventilator 70 01/12/21 17:00 22 121/73 Mechanical Ventilator 70 01/12/21 16:52 22 121/75 Mechanical Ventilator 70 Intake and Output 0 01/12/21 01/13/21 19:00 07:00 Intake Total 1360 ml 627.5 ml Output Total 1275 ml 1075 ml Balance 85 ml -447.5 ml Free Water 100 ml IV Total 1020 ml 327.5 ml Tube Feeding 60 ml 300 ml Other 180 ml Output Urine Total 1275 ml 1075 ml Laboratory Tests 01/13/21 04:36: White Blood Count 10.2, Red Blood Count 4.60L, Hemoglobin 13.2L, Hematocrit 42.9, Mean Corpuscular Volume 93, Mean Corpuscular Hemoglobin 28.6, Mean Corpuscular Hemoglobin Concent 30.7L, Red Cell Distribution Width 14.1, Platelet Count 162, Mean Platelet Volume 10.9H, Neutrophils (%) (Auto) 80.6H, Lymphocytes (%) (Auto) 8.7L, Monocytes (%) (Auto) 7.9, Eosinophils (%) (Auto) 0.0, Basophils (%) (Auto) 2.9H, Prothrombin Time 21.4H, Prothromb Time International Ratio 2.1H , Sodium Level 145, Potassium Level 4.5, Chloride Level 110H, Carbon Dioxide Level 27, Anion Gap 8, Blood Urea Nitrogen 23H, Creatinine 1.0, Estimat Glomerular Filtration Rate > 60, Glucose Level 337H, Calcium Level 8.2L, Total Bilirubin 0.5, Aspartate Amino Transf (AST/SGOT) 20, Alanine Aminotransferase (ALT/SGPT) 22, Alkaline Phosphatase 50, Total Protein 6.0L, Albumin 1.8L, Globulin 4.2, Albumin/Globulin Ratio 0.4L 01/13/21 09:32: Arterial Blood pH 7.439, Arterial Blood Partial Pressure CO2 39.9, Arterial Blood Partial Pressure O2 89.9, Arterial Blood HCO3 26.4H, Arterial Blood Oxygen Saturation 96.5, Arterial Blood Base Excess 2.2H, Miguelito Test Positive Current Medications Medications (Trade) Dose Ordered Sig/Johnny Route PRN Reason Start Time Stop Time Status Last Admin Dose Admin Acetaminophen (Tylenol) 650 mg Q6H PRN NG Temp >100.5 01/09/21 09:15 02/08/21 09:14 01/12/21 04:41 Acetaminophen (Tylenol) 650 mg Q6H PRN NG Mild Pain (Pain Scale 1-3) 01/09/21 09:15 02/08/21 09:14 Albuterol Sulfate (Proventil MDI) 2 puff Q6HRT INH 01/02/21 19:00 04/02/21 18:59 01/13/21 08:10 Benztropine Mesylate (Cogentin) 1 mg EVERY 12 HOURS NG 01/09/21 09:15 02/01/21 09:14 01/12/21 20:25 Chlorhexidine Gluconate (Myranda-Hex 2%) 1 applic DAILY@2000 TOPIC 01/12/21 20:00 04/12/21 19:59 01/12/21 20:25 Dextrose (Dextrose 50%) 25 ml Q30M PRN IV Hypoglycemia 01/06/21 23:45 04/06/21 23:44 Dextrose (Dextrose 50%) 50 ml Q30M PRN IV Hypoglycemia 01/06/21 23:45 04/06/21 23:44 Divalproex Sodium (Depakote) 500 mg EVERY 12 HOURS ORAL 01/02/21 09:00 02/01/21 08:59 01/12/21 20:26 Insulin Aspart (NovoLOG) EVERY 6 HOURS SUBQ 01/09/21 12:00 04/04/21 16:29 01/13/21 11:47 Ipratropium [place] (Atrovent Inh) 1 puffs Q6HRT INH 01/02/21 19:00 02/01/21 18:59 01/13/21 08:10 Lorazepam (Ativan 2mg/ml 1ml) 1 mg Q6H PRN IV For Anxiety 01/06/21 16:30 01/13/21 20:59 01/09/21 22:49 Methylprednisolone Sodium Succinate (Solu-MEDROL) 40 mg EVERY 12 HOURS IVP 01/02/21 09:00 04/02/21 08:59 01/13/21 08:19 Midazolam HCl 200 ml @ 0 mls/hr Q24H PRN IV Agitation 01/13/21 06:15 01/20/21 05:14 01/13/21 07:03 Ondansetron HCl (Zofran) 4 mg Q4H PRN IVP Nausea & Vomiting 01/02/21 08:15 02/01/21 08:14 Pantoprazole (Protonix) 40 mg Q12HR IVP 01/08/21 21:00 02/06/21 08:59 01/13/21 08:18 Piperacillin Sod/ Tazobactam Sod 3.375 gm/Sodium Chloride 110 ml @ 27.5 mls/hr EVERY 8 HOURS IVPB 01/13/21 14:00 01/20/21 13:59 01/13/21 13:14 Sodium Chloride 1,000 ml @ 75 mls/hr [id number] IV 01/08/21 11:00 02/07/21 10:59 01/12/21 09:10 Vancomycin HCl 250 ml @ 166.667 mls/hr Q12HR IVPB 01/13/21 10:00 01/18/21 09:59 01/13/21 09:40 [facility] 1 ea DAILY PRN MISC Per rx protocol 01/13/21 09:15 02/12/21 09:14 Warfarin Sodium (Coumadin per pharmacy) 1 ea DAILY PRN MISC Per rx protocol 01/02/21 08:30 02/01/21 08:29 Warfarin Sodium (Warfarin Sod) 2 mg COUMADIN ORAL 01/13/21 17:00 01/13/21 19:00 Assessment/Plan Assessment/Plan Pulmonary CCM Progress Note HPI Patient is a 60 man with prior h/o COPD, CPS/bipolar DO, 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 ID following and started on CTx/Azithro + REM + SM 40 IV BID, CXR with bilateral infiltrates,ETT appropriate. 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, NHR, DM2, HTN and hydrocephalus Physical Exam Deferred Covid19 Vital Signs noted Laboratory Tests noted Imaging noted Height (Feet): 5 Height (Inches): 5.00 Weight (Pounds): 233 Medications Medications noted Assessment/Plan Problem List: (1) Pneumonia due to COVID-19 virus ICD Codes: U07.1 - COVID-19; J12.82 - Pneumonia due to coronavirus disease 2018 SNOMED: 929101698240031003 (2) Acute hypercapnic respiratory failure ICD Codes: J96.02 - Acute respiratory failure with hypercapnia SNOMED: 306700449 (3) Respiratory failure with hypoxia ICD Codes: J96.91 - Respiratory failure, unspecified with hypoxia SNOMED: 62519511476752893 Qualifiers: Qualified Codes: J96.01 - Acute respiratory failure with hypoxia (4) COPD (chronic obstructive pulmonary disease) ICD Codes: J44.9 - Chronic obstructive pulmonary disease, unspecified SNOMED: 87082679 (5) History of deep venous thrombosis or pulmonary embolus SNOMED: 626200092 (6) Obesity ICD Codes: E66.9 - Obesity, unspecified SNOMED: 805465666, 032510587 (7) Essential hypertension ICD Codes: I10 - Essential (primary) hypertension SNOMED: 34421799 (8) Diabetes mellitus type 2 in obese ICD Codes: E11.69 - Type 2 diabetes mellitus with other specified complication; E66.9 - Obesity, unspecified SNOMED: 47057847 (9) History of hydrocephalus ICD Codes: Z86.69 - Personal history of other diseases of the nervous system and sense organs SNOMED: 209122230 (10) Schizophrenia ICD Codes: F20.9 - Schizophrenia, unspecified SNOMED: 91912957 (11) Bipolar 1 disorder ICD Codes: F31.9 - Bipolar disorder, unspecified SNOMED: 741233947 (12) Anticoagulant long-term use ICD Codes: 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
[2021-01-13] MEDS ORDERED: Warfarin Sodium 1mg ORAL SCH (17:00)
[2021-01-13] MEDS: Acetaminophen 650mg/20.3ml NG PRN (17:43)
[2021-01-13] MEDS: Dyna-Hex 2% Top Sol 2oz TOPIC SCH (20:14)
[2021-01-13] MEDS: Depakote 125mg Sprinkles GT SCH (20:25)
[2021-01-14] VITALS (34 sets, daily range): BP systolic 101–147; BP diastolic 60–89
[2021-01-14] MEDS: NovoLOG Insulin Flexpen SUBQ SCH ×5 (00:19→23:48)
[2021-01-14] MEDS: Acetaminophen 650mg/20.3ml NG PRN ×2 (00:41→21:28)
[2021-01-14] MEDS: Albuterol 90mcg Inhaler 8gm INH SCH ×4 (01:00→19:39)
[2021-01-14] MEDS: Ipratropium Bromide Inhaler INH SCH ×4 (01:00→19:39)
[2021-01-14] MEDS ORDERED: Versed 100mg/NS 200ml 200 ML IV PRN (02:00)
[2021-01-14] MEDS: Versed 100mg/NS 200ml 200 ML IV PRN ×2 (02:28→12:41)
[2021-01-14] MEDS: fentaNYL 2500mcg/NS 250ml 250 ML IV SCH ×2 (03:33→20:00)
[2021-01-14] MEDS: Piperacillin/Tazobactam 3.375 GM in NS 110 ML IVPB SCH ×3 (05:54→21:11)
[2021-01-14 06:49] LABS: BASOPHILS % (AUTO) 2.8 % (0.0-2.0); EOSINOPHILS % (AUTO) 0.1 % (0.0-3.0); HEMATOCRIT 42.8 % (42.0-52.0); HEMOGLOBIN 13.2 G/DL (14.2-18.0); LYMPHOCYTES % (AUTO) 6.9 % (20.0-45.0); MEAN CORPUSCULAR VOLUME 93 FL (80-99); MONOCYTES % (AUTO) 8.5 % (1.0-10.0); NEUTROPHILS % (AUTO) 81.7 % (45.0-75.0); PLATELET COUNT 190 K/UL (150-450); RED BLOOD COUNT 4.62 M/UL (4.70-6.10); RED CELL DISTRIBUTION WIDTH 14.2 % (11.6-14.8); WHITE BLOOD COUNT 10.2 K/UL (4.8-10.8)
[2021-01-14 07:14] LABS: ALANINE AMINOTRANSFERASE 27 U/L (12-78); ALBUMIN 1.9 G/DL (3.4-5.0); ALBUMIN/GLOBULIN RATIO 0.5 (1.0-2.7); ALKALINE PHOSPHATASE 50 U/L (46-116); ANION GAP 6 mmol/L (5-15); ASPARTATE AMINO TRANSFERASE 22 U/L (15-37); BILIRUBIN,TOTAL 0.5 MG/DL (0.2-1.0); BLOOD UREA NITROGEN 21 mg/dL (7-18); CARBON DIOXIDE 29 MMOL/L (21-32); CHLORIDE 111 MMOL/L (98-107); CREATININE 0.9 MG/DL (0.55-1.30); PHOSPHORUS 3.9 MG/DL (2.5-4.9); POTASSIUM 4.7 MMOL/L (3.5-5.1); SODIUM 146 MMOL/L (136-145)
[2021-01-14 07:26] LABS: INR 1.8 (0.9-1.1)
[2021-01-14] MEDS: Vancomycin 1.25gm/250ml Premix IVPB SCH (08:18)
[2021-01-14] MEDS: Solu-MEDROL 40mg Inj IVP SCH ×2 (08:19→21:11)
[2021-01-14] MEDS: Pantoprazole Inj IVP SCH ×2 (08:19→21:11)
[2021-01-14] MEDS: Depakote 125mg Sprinkles GT SCH ×2 (08:19→21:11)
[2021-01-14] MEDS: Benztropine 1mg tab NG SCH ×2 (08:19→21:11)
--- NOTE | 2021-01-14 09:07 | Infectious Diseases Prog Note ---
Assessment/Plan 60yo M with: Staph epi bacteremia, m/l skin contaminant 01/10 BCx 1 +Staph epi 01/13 BCx p COVID pna, severe Acute hypoxia /2 COVID pna >> intubated 01/06 Febrile to 103 Normal WBC Elevated AST 51 2/2 Tested positive for COVID at [facility] 01/02 COVID PCR positive 01/02 BCx NTD CXR: Multifocal pna MRSA nares neg 01/06 Intubated in ICU CXR: 1. Appropriately positioned endotracheal and enteric tubes. 2. Stable bilateral airspace disease. 01/07 Resp cx +Yasmine albicans (colonizer) 01/11 CXR: Interval improved bilateral lung aeration. Bibasilar infiltrates/atelectasis. Cr 1.1 HIV screen neg PMH: DM2 COPD HTN SNF resident Plan: Stop vanco IV #1 given Staph epi in BCx m/l skin contaminant Cont Zosyn #6/7-10 given critical illness Cont steroids #13/10, on methylpred 40 IV q12 - defer course to Pulm/Primary, consider stopping given s/p 10 day course wo clear improvement F/u repeat BCx 01/13 to ensure neg 01/14 SP vanco IV #1 01/09 SP CTX #7 01/07 SP azithro #5, RDV #5 This institution does not have access to convalescent plasma and only recommended to give in setting of clinical trial Monitor CBC/CMP Monitor temp curve, hemodynamics Monitor resp status D/w RN Thank you for this consult. [facility] will continue to follow. Subjective Allergies: Coded Allergies: No Known Allergies (Unverified , 01/02/21) AF Sedated on vent 50% PEEP 5, proned 01/10 BCx 1/ +Staph epi WBC stable at 10 Objective Last 24 Hour Vital Signs Date Time Temp Pulse Resp B/P (MAP) Pulse Ox O2 Delivery O2 Flow Rate FiO2 01/14/21 08:00 98.2 74 22 126/80 (95) 100 01/14/21 08:00 50 01/14/21 08:00 73 01/14/21 08:00 Mechanical Ventilator 01/14/21 07:10 77 22 50 01/14/21 07:00 74 22 122/74 (90) 100 01/14/21 06:33 22 121/72 Mechanical Ventilator 50 01/14/21 06:33 22 121/72 Mechanical Ventilator 50 01/14/21 06:00 Mechanical Ventilator 01/14/21 06:00 75 22 122/76 (91) 100 01/14/21 05:33 22 122/76 Mechanical Ventilator 50 01/14/21 05:33 22 122/76 Mechanical Ventilator 50 01/14/21 05:30 75 22 123/76 (92) 100 01/14/21 05:24 76 22 50 01/14/21 05:00 75 22 124/72 (89) 100 01/14/21 04:33 22 124/72 Mechanical Ventilator 50 01/14/21 04:33 22 124/72 Mechanical Ventilator 50 01/14/21 04:30 76 22 123/72 (89) 100 01/14/21 04:03 22 122/62 Mechanical Ventilator 50 01/14/21 04:03 22 122/62 Mechanical Ventilator 50 01/14/21 04:00 76 01/14/21 04:00 Mechanical Ventilator 01/14/21 04:00 99.1 77 22 120/78 (92) 100 01/14/21 04:00 50 01/14/21 03:48 22 125/77 Mechanical Ventilator 50 01/14/21 03:48 22 125/77 Mechanical Ventilator 50 01/14/21 03:33 22 131/75 Mechanical Ventilator 50 01/14/21 03:33 22 131/75 Mechanical Ventilator 15.0 50 01/14/21 03:30 77 22 125/77 (93) 100 01/14/21 03:19 78 22 50 01/14/21 03:18 22 120/60 Mechanical Ventilator 50 01/14/21 03:03 22 118/62 Mechanical Ventilator 50 01/14/21 03:00 78 22 125/76 (92) 100 01/14/21 02:48 22 120/60 Mechanical Ventilator 50 01/14/21 02:30 79 22 124/76 (92) 100 01/14/21 02:28 20 131/75 Mechanical Ventilator 15.0 50 01/14/21 02:00 82 22 117/73 (88) 99 01/14/21 01:11 99.1 01/14/21 01:11 109 20 131/75 (93) 01/14/21 01:00 100.6 95 22 112/69 (83) 98 01/14/21 01:00 88 22 50 01/14/21 00:00 50 01/14/21 00:00 100.0 109 22 120/69 (86) 98 01/14/21 00:00 Mechanical Ventilator 01/14/21 00:00 109 01/13/21 23:14 89 23 50 01/13/21 23:00 69 22 125/79 (94) 98 01/13/21 22:00 81 22 116/71 (86) 98 01/13/21 21:05 94 22 50 01/13/21 21:00 76 22 107/66 (80) 98 01/13/21 20:00 Mechanical Ventilator 01/13/21 20:00 99.9 81 22 107/65 (79) 98 01/13/21 20:00 50 01/13/21 20:00 78 01/13/21 19:32 81 22 50 01/13/21 19:00 86 22 104/61 (75) 98 01/13/21 18:30 87 22 108/65 (79) 98 01/13/21 18:13 99.3 01/13/21 18:00 88 22 109/60 (76) 98 01/13/21 18:00 22 103/69 Mechanical Ventilator 50 01/13/21 17:00 84 22 118/74 (89) 99 01/13/21 17:00 22 118/74 Mechanical Ventilator 50 01/13/21 16:30 89 22 112/69 (83) 98 01/13/21 16:00 96 22 111/69 (83) 98 01/13/21 16:00 Mechanical Ventilator 01/13/21 16:00 106 01/13/21 16:00 22 111/69 Mechanical Ventilator 50 01/13/21 16:00 50 01/13/21 16:00 99.4 96 22 111/69 (83) 98 01/13/21 15:46 86 22 50 01/13/21 15:30 87 22 102/59 (73) 97 01/13/21 15:00 94 22 105/62 (76) 97 01/13/21 15:00 50 105/62 Mechanical Ventilator 50 01/13/21 14:30 92 22 100/55 (70) 98 01/13/21 14:00 22 99/48 Mechanical Ventilator 50 01/13/21 14:00 77 22 99/48 (65) 98 01/13/21 13:30 77 22 104/58 (73) 98 01/13/21 13:00 22 104/58 Mechanical Ventilator 50 01/13/21 13:00 80 22 104/58 (73) 98 01/13/21 12:30 99.3 82 22 105/64 (78) 98 01/13/21 12:00 86 01/13/21 12:00 22 110/64 Mechanical Ventilator 50 01/13/21 12:00 Mechanical Ventilator 01/13/21 12:00 85 22 110/64 (79) 98 01/13/21 11:40 97 22 50 01/13/21 11:33 50 01/13/21 11:00 90 22 99/53 (68) 99 01/13/21 11:00 22 106/57 Mechanical Ventilator 50 01/13/21 10:30 70 22 109/62 (78) 98 01/13/21 10:00 22 109/62 Mechanical Ventilator 50 01/13/21 10:00 68 22 110/59 (76) 98 01/13/21 09:48 60 01/13/21 09:40 60 Height (Feet): 5 Height (Inches): 5.00 Weight (Pounds): 233 Gen: NAD HEENT: NCAT, ETT Pulm: BL chest rise, proned Ext: No c/c/e Skin: No visible rashes Neuro: Sedated Laboratory Tests Test 01/13/21 09:32 01/14/21 05:13 01/14/21 08:15 Arterial Blood pH 7.439 (7.350-7.450) 7.438 (7.350-7.450) Arterial Blood Partial Pressure CO2 39.9 mmHg (35.0-45.0) 48.6 mmHg (35.0-45.0) H Arterial Blood Partial Pressure O2 89.9 mmHg (75.0-100.0) 95.9 mmHg (75.0-100.0) Arterial Blood HCO3 26.4 mmol/L (22.0-26.0) H 32.1 mmol/L (22.0-26.0) H Arterial Blood Oxygen Saturation 96.5 % (95-100) 96.9 % (95-100) Arterial Blood Base Excess 2.2 (-2-2) H 6.8 (-2-2) H Miguelito Test Positive Positive White Blood Count 10.2 K/UL (4.8-10.8) Red Blood Count 4.62 M/UL (4.70-6.10) L Hemoglobin 13.2 G/DL (14.2-18.0) L Hematocrit 42.8 % (42.0-52.0) Mean Corpuscular Volume 93 FL (80-99) Mean Corpuscular Hemoglobin 28.6 PG (27.0-31.0) Mean Corpuscular Hemoglobin Concent 30.8 G/DL (32.0-36.0) L Red Cell Distribution Width 14.2 % (11.6-14.8) Platelet Count 190 K/UL (150-450) Mean Platelet Volume 11.5 FL (6.5-10.1) H Neutrophils (%) (Auto) 81.7 % (45.0-75.0) H Lymphocytes (%) (Auto) 6.9 % (20.0-45.0) L Monocytes (%) (Auto) 8.5 % (1.0-10.0) Eosinophils (%) (Auto) 0.1 % (0.0-3.0) Basophils (%) (Auto) 2.8 % (0.0-2.0) H Prothrombin Time 18.7 SEC (9.30-11.50) H Prothromb Time International Ratio 1.8 (0.9-1.1) H Sodium Level 146 MMOL/L (136-145) H Potassium Level 4.7 MMOL/L (3.5-5.1) Chloride Level 111 MMOL/L (98-107) H Carbon Dioxide Level 29 MMOL/L (21-32) Anion Gap 6 mmol/L (5-15) Blood Urea Nitrogen 21 mg/dL (7-18) H Creatinine 0.9 MG/DL (0.55-1.30) Estimat Glomerular Filtration Rate > 60 mL/min (>60) Glucose Level 337 MG/DL (74-106) H Calcium Level 9.0 MG/DL (8.5-10.1) Phosphorus Level 3.9 MG/DL (2.5-4.9) Magnesium Level 2.5 MG/DL (1.8-2.4) H Total Bilirubin 0.5 MG/DL (0.2-1.0) Aspartate Amino Transf (AST/SGOT) 22 U/L (15-37) Alanine Aminotransferase (ALT/SGPT) 27 U/L (12-78) Alkaline Phosphatase 50 U/L (46-116) C-Reactive Protein, Quantitative 4.7 mg/dL (0.00-0.90) H Pro-B-Type Natriuretic Peptide 189 pg/mL (0-125) H Total Protein 6.0 G/DL (6.4-8.2) L Albumin 1.9 G/DL (3.4-5.0) L Globulin 4.1 g/dL Albumin/Globulin Ratio 0.5 (1.0-2.7) L Current Medications Medications (Trade) Dose Ordered Sig/Johnny Route PRN Reason Start Time Stop Time Status Last Admin Dose Admin Acetaminophen (Tylenol) 650 mg Q6H PRN NG Temp >100.5 01/09/21 09:15 02/08/21 09:14 01/14/21 00:41 Acetaminophen (Tylenol) 650 mg Q6H PRN NG Mild Pain (Pain Scale 1-3) 01/09/21 09:15 02/08/21 09:14 Albuterol Sulfate (Proventil MDI) 2 puff Q6HRT INH 01/02/21 19:00 04/02/21 18:59 01/14/21 07:10 Benztropine Mesylate (Cogentin) 1 mg EVERY 12 HOURS NG 01/09/21 09:15 02/01/21 09:14 01/13/21 20:15 Chlorhexidine Gluconate (Myranda-Hex 2%) 1 applic DAILY@2000 TOPIC 01/12/21 20:00 04/12/21 19:59 01/13/21 20:14 Dextrose (Dextrose 50%) 25 ml Q30M PRN IV Hypoglycemia 01/06/21 23:45 04/06/21 23:44 Dextrose (Dextrose 50%) 50 ml Q30M PRN IV Hypoglycemia 01/06/21 23:45 04/06/21 23:44 Divalproex Sodium (Depakote Sprinkles) 500 mg Q12HR GT 01/13/21 21:00 02/12/21 20:59 01/13/21 20:25 Fentanyl Citrate 250 ml @ 1 mls/hr Q24H IV 01/13/21 20:00 01/15/21 19:59 01/14/21 03:33 Insulin Aspart (NovoLOG) EVERY 6 HOURS SUBQ 01/09/21 12:00 04/04/21 16:29 01/14/21 05:55 Ipratropium [place] (Atrovent Inh) 1 puffs Q6HRT INH 01/02/21 19:00 02/01/21 18:59 01/14/21 07:10 Methylprednisolone Sodium Succinate (Solu-MEDROL) 40 mg EVERY 12 HOURS IVP 01/02/21 09:00 04/02/21 08:59 01/14/21 08:19 Midazolam HCl 200 ml @ 0 mls/hr Q24H PRN IV Agitation 01/14/21 02:30 01/21/21 01:59 01/14/21 02:28 Ondansetron HCl (Zofran) 4 mg Q4H PRN IVP Nausea & Vomiting 01/02/21 08:15 02/01/21 08:14 Pantoprazole (Protonix) 40 mg Q12HR IVP 01/08/21 21:00 02/06/21 08:59 01/14/21 08:19 Piperacillin Sod/ Tazobactam Sod 3.375 gm/Sodium Chloride 110 ml @ 27.5 mls/hr EVERY 8 HOURS IVPB 01/13/21 14:00 01/20/21 13:59 01/14/21 05:54 Sodium Chloride 1,000 ml @ 75 mls/hr [id number] IV 01/08/21 11:00 02/07/21 10:59 01/14/21 01:24 Vancomycin HCl 250 ml @ 166.667 mls/hr Q12HR IVPB 01/13/21 10:00 01/18/21 09:59 01/14/21 08:18 Vancomycin HCl (Vanco pharmacy to dose) 1 ea DAILY PRN MISC Per rx protocol 01/13/21 09:15 02/12/21 09:14 Warfarin Sodium (Coumadin per pharmacy) 1 ea DAILY PRN MISC Per rx protocol 01/02/21 08:30 02/01/21 08:29 Renetta Gomez M.D. Jan 14, 2021 09:07
--- NOTE | 2021-01-14 12:02 | Nephrology Progress Note ---
Assessment/Plan Problem List: (1) Hyperkalemia (2) Pneumonia due to COVID-19 virus (3) Respiratory failure with hypoxia (4) Obesity (5) Schizophrenia (6) DMII (diabetes mellitus, type 2) Assessment Hyperkalemia Stable renal parameters Hyperglycemia Covid pneumonia due to COVID-19 virus Acute respiratory failure with hypoxia requiring mechanical ventilation History of COPD History of DVT, pulmonary emboli Obese Hypertension History of diabetes Psych condition, schizophrenia, bipolar disease Plan January 14: Patient full code. Intubated on ventilator. On prone position until 5 PM. Labs reviewed. Stable from renal standpoint of view. January 13: Labs reviewed. Renal parameters stable. Continue per consultants. Patient remain full code and intubated on ventilator. January 12: Labs reviewed. Renal parameters stable. Patient remains full code. Remains intubated on ventilator and on prone position. Continue per consultants. January 11: Labs reviewed. Renal parameters stable. Continue per consultants. January 10: Labs reviewed. Renal parameters stable. Continue per consultants. Change IV to half-normal saline Kayexalate via NG tube for high potassium Monitor electrolytes and renal parameters Per orders, per consultants Subjective ROS Limited/Unobtainable: Yes Objective Objective Last 24 Hour Vital Signs Date Time Temp Pulse Resp B/P (MAP) Pulse Ox O2 Delivery O2 Flow Rate FiO2 01/14/21 11:33 22 144/87 Mechanical Ventilator 50 01/14/21 11:33 22 144/87 Mechanical Ventilator 50 01/14/21 10:33 22 141/95 Mechanical Ventilator 50 01/14/21 10:33 22 141/95 Mechanical Ventilator 50 01/14/21 10:00 80 22 138/86 (103) 100 01/14/21 09:33 22 139/91 Mechanical Ventilator 50 01/14/21 09:33 22 139/91 Mechanical Ventilator 50 01/14/21 09:00 80 22 138/86 (103) 100 01/14/21 08:33 22 125/86 Mechanical Ventilator 50 01/14/21 08:33 22 125/86 Mechanical Ventilator 50 01/14/21 08:00 98.2 74 22 126/80 (95) 100 01/14/21 08:00 50 01/14/21 08:00 73 01/14/21 08:00 Mechanical Ventilator 01/14/21 07:33 22 124/80 Mechanical Ventilator 50 01/14/21 07:33 22 124/80 Mechanical Ventilator 50 01/14/21 07:10 77 22 50 01/14/21 07:00 74 22 122/74 (90) 100 01/14/21 06:33 22 121/72 Mechanical Ventilator 50 01/14/21 06:33 22 121/72 Mechanical Ventilator 50 01/14/21 06:00 Mechanical Ventilator 01/14/21 06:00 75 22 122/76 (91) 100 01/14/21 05:33 22 122/76 Mechanical Ventilator 50 01/14/21 05:33 22 122/76 Mechanical Ventilator 50 01/14/21 05:30 75 22 123/76 (92) 100 01/14/21 05:24 76 22 50 01/14/21 05:00 75 22 124/72 (89) 100 01/14/21 04:33 22 124/72 Mechanical Ventilator 50 01/14/21 04:33 22 124/72 Mechanical Ventilator 50 01/14/21 04:30 76 22 123/72 (89) 100 01/14/21 04:03 22 122/62 Mechanical Ventilator 50 01/14/21 04:03 22 122/62 Mechanical Ventilator 50 01/14/21 04:00 76 01/14/21 04:00 Mechanical Ventilator 01/14/21 04:00 99.1 77 22 120/78 (92) 100 01/14/21 04:00 50 01/14/21 03:48 22 125/77 Mechanical Ventilator 50 01/14/21 03:48 22 125/77 Mechanical Ventilator 50 01/14/21 03:33 22 131/75 Mechanical Ventilator 50 01/14/21 03:33 22 131/75 Mechanical Ventilator 15.0 50 01/14/21 03:30 77 22 125/77 (93) 100 01/14/21 03:19 78 22 50 01/14/21 03:18 22 120/60 Mechanical Ventilator 50 01/14/21 03:03 22 118/62 Mechanical Ventilator 50 01/14/21 03:00 78 22 125/76 (92) 100 01/14/21 02:48 22 120/60 Mechanical Ventilator 50 01/14/21 02:30 79 22 124/76 (92) 100 01/14/21 02:28 20 131/75 Mechanical Ventilator 15.0 50 01/14/21 02:00 82 22 117/73 (88) 99 01/14/21 01:11 99.1 01/14/21 01:11 109 20 131/75 (93) 01/14/21 01:00 100.6 95 22 112/69 (83) 98 01/14/21 01:00 88 22 50 01/14/21 00:00 50 01/14/21 00:00 100.0 109 22 120/69 (86) 98 01/14/21 00:00 Mechanical Ventilator 01/14/21 00:00 109 01/13/21 23:14 89 23 50 01/13/21 23:00 69 22 125/79 (94) 98 01/13/21 22:00 81 22 116/71 (86) 98 01/13/21 21:05 94 22 50 01/13/21 21:00 76 22 107/66 (80) 98 01/13/21 20:00 Mechanical Ventilator 01/13/21 20:00 99.9 81 22 107/65 (79) 98 01/13/21 20:00 50 01/13/21 20:00 78 01/13/21 19:32 81 22 50 01/13/21 19:00 86 22 104/61 (75) 98 01/13/21 18:30 87 22 108/65 (79) 98 01/13/21 18:13 99.3 01/13/21 18:00 88 22 109/60 (76) 98 01/13/21 18:00 22 103/69 Mechanical Ventilator 50 01/13/21 17:00 84 22 118/74 (89) 99 01/13/21 17:00 22 118/74 Mechanical Ventilator 50 01/13/21 16:30 89 22 112/69 (83) 98 01/13/21 16:00 96 22 111/69 (83) 98 01/13/21 16:00 Mechanical Ventilator 01/13/21 16:00 106 01/13/21 16:00 22 111/69 Mechanical Ventilator 50 01/13/21 16:00 50 01/13/21 16:00 99.4 96 22 111/69 (83) 98 01/13/21 15:46 86 22 50 01/13/21 15:30 87 22 102/59 (73) 97 01/13/21 15:00 94 22 105/62 (76) 97 01/13/21 15:00 50 105/62 Mechanical Ventilator 50 01/13/21 14:30 92 22 100/55 (70) 98 01/13/21 14:00 22 99/48 Mechanical Ventilator 50 01/13/21 14:00 77 22 99/48 (65) 98 01/13/21 13:30 77 22 104/58 (73) 98 01/13/21 13:00 22 104/58 Mechanical Ventilator 50 01/13/21 13:00 80 22 104/58 (73) 98 01/13/21 12:30 99.3 82 22 105/64 (78) 98 Intake and Output 01/13/21 01/14/21 19:00 07:00 Intake Total 990.000 ml 1209.525 ml Output Total 1200 ml 1318 ml Balance -210.000 ml -108.475 ml Free Water 150 ml 50 ml IV Total 480.000 ml 949.525 ml Tube Feeding 360 ml 150 ml Other 60 ml Output Urine Total 1200 ml 1318 ml Current Medications Medications (Trade) Dose Ordered Sig/Johnny Route PRN Reason Start Time Stop Time Status Last Admin Dose Admin Acetaminophen (Tylenol) 650 mg Q6H PRN NG Temp >100.5 01/09/21 09:15 02/08/21 09:14 01/14/21 00:41 Acetaminophen (Tylenol) 650 mg Q6H PRN NG Mild Pain (Pain Scale 1-3) 01/09/21 09:15 02/08/21 09:14 Albuterol Sulfate (Proventil MDI) 2 puff Q6HRT INH 01/02/21 19:00 04/02/21 18:59 01/14/21 07:10 Benztropine Mesylate (Cogentin) 1 mg EVERY 12 HOURS NG 01/09/21 09:15 02/01/21 09:14 01/13/21 20:15 Chlorhexidine Gluconate (Myranda-Hex 2%) 1 applic DAILY@2000 TOPIC 01/12/21 20:00 04/12/21 19:59 01/13/21 20:14 Dextrose (Dextrose 50%) 25 ml Q30M PRN IV Hypoglycemia 01/06/21 23:45 04/06/21 23:44 Dextrose (Dextrose 50%) 50 ml Q30M PRN IV Hypoglycemia 01/06/21 23:45 04/06/21 23:44 Divalproex Sodium (Depakote Sprinkles) 500 mg Q12HR GT 01/13/21 21:00 02/12/21 20:59 01/13/21 20:25 Fentanyl Citrate 250 ml @ 1 mls/hr Q24H IV 01/13/21 20:00 01/15/21 19:59 01/14/21 03:33 Insulin Aspart (NovoLOG) EVERY 6 HOURS SUBQ 01/09/21 12:00 04/04/21 16:29 01/14/21 11:36 Ipratropium Cameron (Atrovent Inh) 1 puffs Q6HRT INH 01/02/21 19:00 02/01/21 18:59 01/14/21 07:10 Methylprednisolone Sodium Succinate (Solu-MEDROL) 40 mg EVERY 12 HOURS IVP 01/02/21 09:00 04/02/21 08:59 01/14/21 08:19 Midazolam HCl 200 ml @ 0 mls/hr Q24H PRN IV Agitation 01/14/21 02:30 01/21/21 01:59 01/14/21 02:28 Ondansetron HCl (Zofran) 4 mg Q4H PRN IVP Nausea & Vomiting 01/02/21 08:15 02/01/21 08:14 Pantoprazole (Protonix) 40 mg Q12HR IVP 01/08/21 21:00 02/06/21 08:59 01/14/21 08:19 Piperacillin Sod/ Tazobactam Sod 3.375 gm/Sodium Chloride 110 ml @ 27.5 mls/hr EVERY 8 HOURS IVPB 01/13/21 14:00 01/20/21 13:59 01/14/21 05:54 Sodium Chloride 1,000 ml @ 75 mls/hr [id number] IV 01/08/21 11:00 02/07/21 10:59 01/14/21 01:24 Warfarin Sodium (Coumadin per pharmacy) 1 ea DAILY PRN MISC Per rx protocol 01/02/21 08:30 02/01/21 08:29 Warfarin Sodium (Coumadin) 2.5 mg COUMADIN ORAL 01/14/21 17:00 01/14/21 18:00 Laboratory Tests 01/14/21 05:13: White Blood Count 10.2, Red Blood Count 4.62L, Hemoglobin 13.2L, Hematocrit 42.8, Mean Corpuscular Volume 93, Mean Corpuscular Hemoglobin 28.6, Mean Corpuscular Hemoglobin Concent 30.8L, Red Cell Distribution Width 14.2, Platelet Count 190, Mean Platelet Volume 11.5H, Neutrophils (%) (Auto) 81.7H, Lymphocytes (%) (Auto) 6.9L, Monocytes (%) (Auto) 8.5, Eosinophils (%) (Auto) 0.1, Basophils (%) (Auto) 2.8H, Prothrombin Time 18.7H, Prothromb Time International Ratio 1.8H , Sodium Level 146H, Potassium Level 4.7, Chloride Level 111H, Carbon Dioxide Level 29, Anion Gap 6, Blood Urea Nitrogen 21H, Creatinine 0.9, Estimat Glomerular Filtration Rate > 60, Glucose Level 337H, Calcium Level 9.0, Phosphorus Level 3.9, Magnesium Level 2.5H, Total Bilirubin 0.5, Aspartate Amino Transf (AST/SGOT) 22, Alanine Aminotransferase (ALT/SGPT) 27, Alkaline Phosphatase 50, C-Reactive Protein, Quantitative 4.7H, Pro-B-Type Natriuretic Peptide 189H, Total Protein 6.0L, Albumin 1.9L, Globulin 4.1, Albumin/Globulin Ratio 0.5L 01/14/21 08:15: Arterial Blood pH 7.438, Arterial Blood Partial Pressure CO2 48.6H, Arterial Blood Partial Pressure O2 95.9, Arterial Blood HCO3 32.1H, Arterial Blood Oxygen Saturation 96.9, Arterial Blood Base Excess 6.8H, Miguelito Test Positive Height (Feet): 5 Height (Inches): 5.00 Weight (Pounds): 233 General Appearance: no apparent distress, other - On prone position EENT: other - Intubated on ventilator Cardiovascular: normal rate Respiratory/Chest: decreased breath sounds Abdomen: distended Avi Frye MD Jan 14, 2021 12:02
--- NOTE | 2021-01-14 13:09 | Surgery Progress Note ---
Surgery Progress Note Subjective Additional Comments more cautions with prone monitoring closely no n/v on support Objective Last 24 Hour Vital Signs Date Time Temp Pulse Resp B/P (MAP) Pulse Ox O2 Delivery O2 Flow Rate FiO2 01/14/21 12:41 22 137/83 Mechanical Ventilator 50 01/14/21 11:33 22 144/87 Mechanical Ventilator 50 01/14/21 11:33 22 144/87 Mechanical Ventilator 50 01/14/21 10:33 22 141/95 Mechanical Ventilator 50 01/14/21 10:33 22 141/95 Mechanical Ventilator 50 01/14/21 10:00 80 22 138/86 (103) 100 01/14/21 09:33 22 139/91 Mechanical Ventilator 50 01/14/21 09:33 22 139/91 Mechanical Ventilator 50 01/14/21 09:00 80 22 138/86 (103) 100 01/14/21 08:33 22 125/86 Mechanical Ventilator 50 01/14/21 08:33 22 125/86 Mechanical Ventilator 50 01/14/21 08:00 98.2 74 22 126/80 (95) 100 01/14/21 08:00 50 01/14/21 08:00 73 01/14/21 08:00 Mechanical Ventilator 01/14/21 07:33 22 124/80 Mechanical Ventilator 50 01/14/21 07:33 22 124/80 Mechanical Ventilator 50 01/14/21 07:10 77 22 50 01/14/21 07:00 74 22 122/74 (90) 100 01/14/21 06:33 22 121/72 Mechanical Ventilator 50 01/14/21 06:33 22 121/72 Mechanical Ventilator 50 01/14/21 06:00 Mechanical Ventilator 01/14/21 06:00 75 22 122/76 (91) 100 01/14/21 05:33 22 122/76 Mechanical Ventilator 50 01/14/21 05:33 22 122/76 Mechanical Ventilator 50 01/14/21 05:30 75 22 123/76 (92) 100 01/14/21 05:24 76 22 50 01/14/21 05:00 75 22 124/72 (89) 100 01/14/21 04:33 22 124/72 Mechanical Ventilator 50 01/14/21 04:33 22 124/72 Mechanical Ventilator 50 01/14/21 04:30 76 22 123/72 (89) 100 01/14/21 04:03 22 122/62 Mechanical Ventilator 50 01/14/21 04:03 22 122/62 Mechanical Ventilator 50 01/14/21 04:00 76 01/14/21 04:00 Mechanical Ventilator 01/14/21 04:00 99.1 77 22 120/78 (92) 100 01/14/21 04:00 50 01/14/21 03:48 22 125/77 Mechanical Ventilator 50 01/14/21 03:48 22 125/77 Mechanical Ventilator 50 01/14/21 03:33 22 131/75 Mechanical Ventilator 50 01/14/21 03:33 22 131/75 Mechanical Ventilator 15.0 50 01/14/21 03:30 77 22 125/77 (93) 100 01/14/21 03:19 78 22 50 01/14/21 03:18 22 120/60 Mechanical Ventilator 50 01/14/21 03:03 22 118/62 Mechanical Ventilator 50 01/14/21 03:00 78 22 125/76 (92) 100 01/14/21 02:48 22 120/60 Mechanical Ventilator 50 01/14/21 02:30 79 22 124/76 (92) 100 01/14/21 02:28 20 131/75 Mechanical Ventilator 15.0 50 01/14/21 02:00 82 22 117/73 (88) 99 01/14/21 01:11 99.1 01/14/21 01:11 109 20 131/75 (93) 01/14/21 01:00 100.6 95 22 112/69 (83) 98 01/14/21 01:00 88 22 50 01/14/21 00:00 50 01/14/21 00:00 100.0 109 22 120/69 (86) 98 01/14/21 00:00 Mechanical Ventilator 01/14/21 00:00 109 01/13/21 23:14 89 23 50 01/13/21 23:00 69 22 125/79 (94) 98 01/13/21 22:00 81 22 116/71 (86) 98 01/13/21 21:05 94 22 50 01/13/21 21:00 76 22 107/66 (80) 98 01/13/21 20:00 Mechanical Ventilator 01/13/21 20:00 99.9 81 22 107/65 (79) 98 01/13/21 20:00 50 01/13/21 20:00 78 2/14/21 19:32 81 22 50 01/13/21 19:00 86 22 104/61 (75) 98 01/13/21 18:30 87 22 108/65 (79) 98 01/13/21 18:13 99.3 01/13/21 18:00 88 22 109/60 (76) 98 01/13/21 18:00 22 103/69 Mechanical Ventilator 50 01/13/21 17:00 84 22 118/74 (89) 99 01/13/21 17:00 22 118/74 Mechanical Ventilator 50 01/13/21 16:30 89 22 112/69 (83) 98 01/13/21 16:00 96 22 111/69 (83) 98 01/13/21 16:00 Mechanical Ventilator 01/13/21 16:00 106 01/13/21 16:00 22 111/69 Mechanical Ventilator 50 01/13/21 16:00 50 01/13/21 16:00 99.4 96 22 111/69 (83) 98 01/13/21 15:46 86 22 50 01/13/21 15:30 87 22 102/59 (73) 97 01/13/21 15:00 94 22 105/62 (76) 97 01/13/21 15:00 50 105/62 Mechanical Ventilator 50 01/13/21 14:30 92 22 100/55 (70) 98 01/13/21 14:00 22 99/48 Mechanical Ventilator 50 01/13/21 14:00 77 22 99/48 (65) 98 01/13/21 13:30 77 22 104/58 (73) 98 I&O Intake and Output 01/13/21 01/14/21 19:00 07:00 Intake Total 990.000 ml 1209.525 ml Output Total 1200 ml 1318 ml Balance -210.000 ml -108.475 ml Free Water 150 ml 50 ml IV Total 480.000 ml 949.525 ml Tube Feeding 360 ml 150 ml Other 60 ml Output Urine Total 1200 ml 1318 ml Dressing: saturated Cardiovascular: RSR Respiratory: decreased breath sounds Abdomen: soft, non-tender, present bowel sounds, non-distended Extremities: no tenderness, no cyanosis Laboratory Tests Test 01/14/21 05:13 01/14/21 08:15 White Blood Count 10.2 K/UL (4.8-10.8) Red Blood Count 4.62 M/UL (4.70-6.10) L Hemoglobin 13.2 G/DL (14.2-18.0) L Hematocrit 42.8 % (42.0-52.0) Mean Corpuscular Volume 93 FL (80-99) Mean Corpuscular Hemoglobin 28.6 PG (27.0-31.0) Mean Corpuscular Hemoglobin Concent 30.8 G/DL (32.0-36.0) L Red Cell Distribution Width 14.2 % (11.6-14.8) Platelet Count 190 K/UL (150-450) Mean Platelet Volume 11.5 FL (6.5-10.1) H Neutrophils (%) (Auto) 81.7 % (45.0-75.0) H Lymphocytes (%) (Auto) 6.9 % (20.0-45.0) L Monocytes (%) (Auto) 8.5 % (1.0-10.0) Eosinophils (%) (Auto) 0.1 % (0.0-3.0) Basophils (%) (Auto) 2.8 % (0.0-2.0) H Prothrombin Time 18.7 SEC (9.30-11.50) H Prothromb Time International Ratio 1.8 (0.9-1.1) H Sodium Level 146 MMOL/L (136-145) H Potassium Level 4.7 MMOL/L (3.5-5.1) Chloride Level 111 MMOL/L (98-107) H Carbon Dioxide Level 29 MMOL/L (21-32) Anion Gap 6 mmol/L (5-15) Blood Urea Nitrogen 21 mg/dL (7-18) H Creatinine 0.9 MG/DL (0.55-1.30) Estimat Glomerular Filtration Rate > 60 mL/min (>60) Glucose Level 337 MG/DL (74-106) H Calcium Level 9.0 MG/DL (8.5-10.1) Phosphorus Level 3.9 MG/DL (2.5-4.9) Magnesium Level 2.5 MG/DL (1.8-2.4) H Total Bilirubin 0.5 MG/DL (0.2-1.0) Aspartate Amino Transf (AST/SGOT) 22 U/L (15-37) Alanine Aminotransferase (ALT/SGPT) 27 U/L (12-78) Alkaline Phosphatase 50 U/L (46-116) C-Reactive Protein, Quantitative 4.7 mg/dL (0.00-0.90) H Pro-B-Type Natriuretic Peptide 189 pg/mL (0-125) H Total Protein 6.0 G/DL (6.4-8.2) L Albumin 1.9 G/DL (3.4-5.0) L Globulin 4.1 g/dL Albumin/Globulin Ratio 0.5 (1.0-2.7) L Arterial Blood pH 7.438 (7.350-7.450) Arterial Blood Partial Pressure CO2 48.6 mmHg (35.0-45.0) H Arterial Blood Partial Pressure O2 95.9 mmHg (75.0-100.0) Arterial Blood HCO3 32.1 mmol/L (22.0-26.0) H Arterial Blood Oxygen Saturation 96.9 % (95-100) Arterial Blood Base Excess 6.8 (-2-2) H Miguelito Test Positive Plan Problems: (1) COPD (chronic obstructive pulmonary disease) (2) Essential hypertension (3) Schizophrenia (4) Obesity (5) Diabetes mellitus type 2 in obese (6) History of hydrocephalus (7) Anticoagulant long-term use (8) Bipolar 1 disorder (9) History of deep venous thrombosis or pulmonary embolus (10) Acute hypercapnic respiratory failure (11) Sepsis Assessment & Plan: 60-year-old male Covid positive respiratory insufficiency and severe decline being prone intubated on vent support labs noted septic ill- appearing has been developing wound around the face from ET tube.Receiv ed report from RT pt is being proned and was observed to have developed a blood blister under vent tape on L cheek and L earlobe. Skin assessed and pt was observed to have a blood blister that is 50% de-capped,50% intact. Intact Blood Blister noted to L earlobe. Skin Barrier applied to affected areas. Optifoam Thin foam placed between vent anchor and pt's skin. Optifoam thin placed to R cheek under Vent tape, on Bridge of nose and both earlobes. Given patient's critical status current care plan and findings nutritional optimization is strongly encouraged Covid nutrition plan initiated. All Covid precautions are being taken. Imaging reviewed. Will follow with care plan. Thank you Mike participation care [place].Plan: Maintain Optifoam Thin foam to R and L cheeks,Bridge of Nose and Both Ears . Change every 7 days and prn.( May request Optifoam Thin from [facility] dept). APM/PEPE Mattress overlay DAILY ESTIMATED NEEDS: Needs based on Critical care, pulmonary, obese 73.7kg abw 22-28 kcals/kg 2145-9971 total kcals 1.2-2 g protein/kg 88-147 g total protein 25-30 mL/kg 1619-1859 total fluid mLs NUTRITION DIAGNOSIS: Altered nutrition related lab values r/t steroidal meds, clinical status as evidenced by febrile on adm (102.5), elevated BG (270 287) on solumedrol, elevated lipid panel (Triglycerides 333, Chol 370, LDL 150). CURRENT TF:Vital @30ml/hr, now Nepro @30 ENTERAL NUTRITION RECOMMENDATIONS: NEPRO @30ml/hr while supine to provide x8 hrs feeds: 360ml, 648 kcal, 29g pro, 262ml free H2O - Feed at rate best tolerated, currently not meeting est needs d/t proning and aspiration risk w/ supine feeds limited to 8hrs/day. - W/ reduced aspiration risk rec feedings to total Volume of 900ml/day of Nepro as medically able. - Monitor tolerance, position/HOB >30 degrees, hemodynamic stability and ability to increase to meet est kcal and pro needs. - With increase pressor support, rec trophic feeds of 10ml/hr for gut integrity. - When tolerating TF at goal add Prosource BID to better meet est pro needs. ADDITIONAL RECOMMENDATIONS: 1) Now intubated, TF recs above when off proning (8hrs feeds) 2) Obtain calibrated bedscale wts 3) HgA1C/ elevated BG Need for niss while on D5 4) Lytes daily; replete as needed 5) Monitor triglycerides, TF tolerance, hemodynamic stability. (12) Respiratory failure with hypoxia (13) Pneumonia due to COVID-19 virus (14) Hyperkalemia (15) DMII (diabetes mellitus, type 2) Ki Strong Jan 14, 2021 13:09
--- NOTE | 2021-01-14 13:42 | Internal Med Progress Note ---
Subjective Date of Service: Jan 14, 2021 Physician Name Vickey Brown Attending Physician Geovanny Bradley MD Current Medications Medications (Trade) Dose Ordered Sig/Johnny Route PRN Reason Start Time Stop Time Status Last Admin Dose Admin Acetaminophen (Tylenol) 650 mg Q6H PRN NG Temp >100.5 01/09/21 09:15 02/08/21 09:14 01/14/21 00:41 Acetaminophen (Tylenol) 650 mg Q6H PRN NG Mild Pain (Pain Scale 1-3) 01/09/21 09:15 02/08/21 09:14 Albuterol Sulfate (Proventil RERE) 2 puff Q6HRT INH 01/02/21 19:00 04/02/21 18:59 01/14/21 13:28 Benztropine Mesylate (Cogentin) 1 mg EVERY 12 HOURS NG 01/09/21 09:15 02/01/21 09:14 01/13/21 20:15 Chlorhexidine Gluconate (Myranda-Hex 2%) 1 applic DAILY@2000 TOPIC 01/12/21 20:00 04/12/21 19:59 01/13/21 20:14 Dextrose (Dextrose 50%) 25 ml Q30M PRN IV Hypoglycemia 01/06/21 23:45 04/06/21 23:44 Dextrose (Dextrose 50%) 50 ml Q30M PRN IV Hypoglycemia 01/06/21 23:45 04/06/21 23:44 Divalproex Sodium (Depakote Sprinkles) 500 mg Q12HR GT 01/13/21 21:00 02/12/21 20:59 01/13/21 20:25 Fentanyl Citrate 250 ml @ 1 mls/hr Q24H IV 01/13/21 20:00 01/15/21 19:59 01/14/21 03:33 Insulin Aspart (NovoLOG) EVERY 6 HOURS SUBQ 01/09/21 12:00 04/04/21 16:29 01/14/21 11:36 Ipratropium [place] (Atrovent Inh) 1 puffs Q6HRT INH 01/02/21 19:00 02/01/21 18:59 01/14/21 13:28 Methylprednisolone Sodium Succinate (Solu-MEDROL) 40 mg EVERY 12 HOURS IVP 01/02/21 09:00 04/02/21 08:59 01/14/21 08:19 Midazolam HCl 200 ml @ 0 mls/hr Q24H PRN IV Agitation 01/14/21 02:30 01/21/21 01:59 01/14/21 12:41 Ondansetron HCl (Zofran) 4 mg Q4H PRN IVP Nausea & Vomiting 01/02/21 08:15 02/01/21 08:14 Pantoprazole (Protonix) 40 mg Q12HR IVP 01/08/21 21:00 02/06/21 08:59 01/14/21 08:19 Piperacillin Sod/ Tazobactam Sod 3.375 gm/Sodium Chloride 110 ml @ 27.5 mls/hr EVERY 8 HOURS IVPB 01/13/21 14:00 01/20/21 13:59 01/14/21 13:22 Sodium Chloride 1,000 ml @ 75 mls/hr [id number] IV 01/08/21 11:00 02/07/21 10:59 01/14/21 13:22 Warfarin Sodium (Coumadin per pharmacy) 1 ea DAILY PRN MISC Per rx protocol 01/02/21 08:30 02/01/21 08:29 Warfarin Sodium (Coumadin) 2.5 mg COUMADIN ORAL 01/14/21 17:00 01/14/21 18:00 Allergies: Coded Allergies: No Known Allergies (Unverified , 01/02/21) ROS Limited/Unobtainable: Yes Subjective 60 YO M admitted with shortness of breath. Now respiratory failure. Cover for Int Rohit-DR Bradley. ICU. Intubated and sedated Objective Last Vital Signs Date Time Temp Pulse Resp B/P (MAP) Pulse Ox O2 Delivery O2 Flow Rate FiO2 01/14/21 13:28 79 22 50 01/14/21 13:00 136/86 (103) 100 01/14/21 12:41 Mechanical Ventilator 01/14/21 12:00 98.7 01/14/21 03:33 15.0 Laboratory Tests Test 01/14/21 05:13 01/14/21 08:15 White Blood Count 10.2 K/UL (4.8-10.8) Red Blood Count 4.62 M/UL (4.70-6.10) L Hemoglobin 13.2 G/DL (14.2-18.0) L Hematocrit 42.8 % (42.0-52.0) Mean Corpuscular Volume 93 FL (80-99) Mean Corpuscular Hemoglobin 28.6 PG (27.0-31.0) Mean Corpuscular Hemoglobin Concent 30.8 G/DL (32.0-36.0) L Red Cell Distribution Width 14.2 % (11.6-14.8) Platelet Count 190 K/UL (150-450) Mean Platelet Volume 11.5 FL (6.5-10.1) H Neutrophils (%) (Auto) 81.7 % (45.0-75.0) H Lymphocytes (%) (Auto) 6.9 % (20.0-45.0) L Monocytes (%) (Auto) 8.5 % (1.0-10.0) Eosinophils (%) (Auto) 0.1 % (0.0-3.0) Basophils (%) (Auto) 2.8 % (0.0-2.0) H Prothrombin Time 18.7 SEC (9.30-11.50) H Prothromb Time International Ratio 1.8 (0.9-1.1) H Sodium Level 146 MMOL/L (136-145) H Potassium Level 4.7 MMOL/L (3.5-5.1) Chloride Level 111 MMOL/L (98-107) H Carbon Dioxide Level 29 MMOL/L (21-32) Anion Gap 6 mmol/L (5-15) Blood Urea Nitrogen 21 mg/dL (7-18) H Creatinine 0.9 MG/DL (0.55-1.30) Estimat Glomerular Filtration Rate > 60 mL/min (>60) Glucose Level 337 MG/DL (74-106) H Calcium Level 9.0 MG/DL (8.5-10.1) Phosphorus Level 3.9 MG/DL (2.5-4.9) Magnesium Level 2.5 MG/DL (1.8-2.4) H Total Bilirubin 0.5 MG/DL (0.2-1.0) Aspartate Amino Transf (AST/SGOT) 22 U/L (15-37) Alanine Aminotransferase (ALT/SGPT) 27 U/L (12-78) Alkaline Phosphatase 50 U/L (46-116) C-Reactive Protein, Quantitative 4.7 mg/dL (0.00-0.90) H Pro-B-Type Natriuretic Peptide 189 pg/mL (0-125) H Total Protein 6.0 G/DL (6.4-8.2) L Albumin 1.9 G/DL (3.4-5.0) L Globulin 4.1 g/dL Albumin/Globulin Ratio 0.5 (1.0-2.7) L Arterial Blood pH 7.438 (7.350-7.450) Arterial Blood Partial Pressure CO2 48.6 mmHg (35.0-45.0) H Arterial Blood Partial Pressure O2 95.9 mmHg (75.0-100.0) Arterial Blood HCO3 32.1 mmol/L (22.0-26.0) H Arterial Blood Oxygen Saturation 96.9 % (95-100) Arterial Blood Base Excess 6.8 (-2-2) H Miguelito Test Positive Intake and Output 01/13/21 01/14/21 19:00 07:00 Intake Total 990.000 ml 1209.525 ml Output Total 1200 ml 1318 ml Balance -210.000 ml -108.475 ml Free Water 150 ml 50 ml IV Total 480.000 ml 949.525 ml Tube Feeding 360 ml 150 ml Other 60 ml Output Urine Total 1200 ml 1318 ml Objective Objective General: awake, responsive , confused. HEENT: NCAT, sclera anicteric, PERRL, EOMI. Neck: Supple, no significant jugular venous distention, Lungs: mech vent; decreased air at the bases, occasional crackles, no Wheeze. Heart: Regular rate and rhythm, normal S1/S2, no murmurs Abdomen: soft, nontender, nondistended. Normoactive bowel sound, obesity. / Rectal: Refused and deferred. Extremities: Left LE: No Cyanosis , clubbing or edema. Right LE AKA. Neuro: A&O x 2, Able to move all extremities Skin: warm, no rashes or lesions. Assessment/Plan Assessment/Plan Assessment/Plan Assessment/Plan (1) Pneumonia due to COVID-19 virus ICD Codes: U07.1 - COVID-19; J12.82 - Pneumonia due to coronavirus disease 2019 SNOMED: 371174320609537309 (2) Acute hypercapnic respiratory failure ICD Codes: J96.02 - Acute respiratory failure with hypercapnia SNOMED: 253869633 (3) Respiratory failure with hypoxia ICD Codes: J96.91 - Respiratory failure, unspecified with hypoxia SNOMED: 28777001345219780 Qualifiers: Qualified Codes: J96.01 - Acute respiratory failure with hypoxia (4) COPD (chronic obstructive pulmonary disease) ICD Codes: J44.9 - Chronic obstructive pulmonary disease, unspecified SNOMED: 18453357 (5) History of deep venous thrombosis or pulmonary embolus SNOMED: 156930604 (6) Obesity ICD Codes: E66.9 - Obesity, unspecified SNOMED: 985082155, 376813590 (7) Essential hypertension ICD Codes: I10 - Essential (primary) hypertension SNOMED: 87357847 (8) Diabetes mellitus type 2 in obese ICD Codes: E11.69 - Type 2 diabetes mellitus with other specified complication; E66.9 - Obesity, unspecified SNOMED: 70522688 (9) History of hydrocephalus ICD Codes: Z86.69 - Personal history of other diseases of the nervous system and sense organs SNOMED: 902477016 (10) Schizophrenia ICD Codes: F20.9 - Schizophrenia, unspecified SNOMED: 64787487 (11) Bipolar 1 disorder ICD Codes: F31.9 - Bipolar disorder, unspecified SNOMED: 423656345 (12) Anticoagulant long-term use ICD Codes: Z79.01 - intermediate (current) use of anticoagulants SNOMED: 137652260 13. Sepsis=gram pos cocci Assessment/Plan: Optimize pulmonary hygiene/mobilize as tolerated Non Rebreather mask>BIPAP>intubated On Remdesivir IV Solu-Medrol 40 mg IV twice a day. Abx =zosyn and vanco F/U Cx's Monitor volumes and renal function DVT Px: Coumadin DC IV fluid Start diet Monitor blood glucose level closely. On levophed, fentanyl and propofol drips Pulmonary=Dr Luis ID=Vickey Mtz MD Jan 14, 2021 13:42
--- NOTE | 2021-01-14 14:59 | Pulmonology Progress Note ---
Subjective ROS Limited/Unobtainable: Yes Allergies: Coded Allergies: No Known Allergies (Unverified , 01/02/21) Objective Last 24 Hour Vital Signs Date Time Temp Pulse Resp B/P (MAP) Pulse Ox O2 Delivery O2 Flow Rate FiO2 01/14/21 13:33 22 134/84 Mechanical Ventilator 50 01/14/21 13:33 22 134/84 Mechanical Ventilator 50 01/14/21 13:28 79 22 50 01/14/21 13:00 77 22 136/86 (103) 100 01/14/21 12:41 22 137/83 Mechanical Ventilator 50 01/14/21 12:33 22 137/83 Mechanical Ventilator 50 01/14/21 12:33 22 137/83 Mechanical Ventilator 50 01/14/21 12:00 98.7 80 22 136/89 (105) 100 01/14/21 12:00 50 01/14/21 12:00 Mechanical Ventilator 01/14/21 12:00 73 01/14/21 11:33 22 144/87 Mechanical Ventilator 50 01/14/21 11:33 22 144/87 Mechanical Ventilator 50 01/14/21 11:00 79 22 141/89 (106) 100 01/14/21 10:33 22 141/95 Mechanical Ventilator 50 01/14/21 10:33 22 141/95 Mechanical Ventilator 50 01/14/21 10:00 80 22 138/86 (103) 100 01/14/21 09:33 22 139/91 Mechanical Ventilator 50 01/14/21 09:33 22 139/91 Mechanical Ventilator 50 01/14/21 09:00 80 22 138/86 (103) 100 01/14/21 08:33 22 125/86 Mechanical Ventilator 50 01/14/21 08:33 22 125/86 Mechanical Ventilator 50 01/14/21 08:00 98.2 74 22 126/80 (95) 100 01/14/21 08:00 50 01/14/21 08:00 73 01/14/21 08:00 Mechanical Ventilator 01/14/21 07:33 22 124/80 Mechanical Ventilator 50 01/14/21 07:33 22 124/80 Mechanical Ventilator 50 01/14/21 07:10 77 22 50 01/14/21 07:00 74 22 122/74 (90) 100 01/14/21 06:33 22 121/72 Mechanical Ventilator 50 01/14/21 06:33 22 121/72 Mechanical Ventilator 50 01/14/21 06:00 Mechanical Ventilator 01/14/21 06:00 75 22 122/76 (91) 100 01/14/21 05:33 22 122/76 Mechanical Ventilator 50 01/14/21 05:33 22 122/76 Mechanical Ventilator 50 01/14/21 05:30 75 22 123/76 (92) 100 01/14/21 05:24 76 22 50 01/14/21 05:00 75 22 124/72 (89) 100 01/14/21 04:33 22 124/72 Mechanical Ventilator 50 01/14/21 04:33 22 124/72 Mechanical Ventilator 50 01/14/21 04:30 76 22 123/72 (89) 100 01/14/21 04:03 22 122/62 Mechanical Ventilator 50 01/14/21 04:03 22 122/62 Mechanical Ventilator 50 01/14/21 04:00 76 01/14/21 04:00 Mechanical Ventilator 01/14/21 04:00 99.1 77 22 120/78 (92) 100 01/14/21 04:00 50 01/14/21 03:48 22 125/77 Mechanical Ventilator 50 01/14/21 03:48 22 125/77 Mechanical Ventilator 50 01/14/21 03:33 22 131/75 Mechanical Ventilator 50 01/14/21 03:33 22 131/75 Mechanical Ventilator 15.0 50 01/14/21 03:30 77 22 125/77 (93) 100 01/14/21 03:19 78 22 50 01/14/21 03:18 22 120/60 Mechanical Ventilator 50 01/14/21 03:03 22 118/62 Mechanical Ventilator 50 01/14/21 03:00 78 22 125/76 (92) 100 01/14/21 02:48 22 120/60 Mechanical Ventilator 50 01/14/21 02:30 79 22 124/76 (92) 100 01/14/21 02:28 20 131/75 Mechanical Ventilator 15.0 50 01/14/21 02:00 82 22 117/73 (88) 99 01/14/21 01:11 99.1 01/14/21 01:11 109 20 131/75 (93) 01/14/21 01:00 100.6 95 22 112/69 (83) 98 01/14/21 01:00 88 22 50 01/14/21 00:00 50 01/14/21 00:00 100.0 109 22 120/69 (86) 98 01/14/21 00:00 Mechanical Ventilator 01/14/21 00:00 109 01/13/21 23:14 89 23 50 01/13/21 23:00 69 22 125/79 (94) 98 01/13/21 22:00 81 22 116/71 (86) 98 01/13/21 21:05 94 22 50 01/13/21 21:00 76 22 107/66 (80) 98 01/13/21 20:00 Mechanical Ventilator 01/13/21 20:00 99.9 81 22 107/65 (79) 98 01/13/21 20:00 50 01/13/21 20:00 78 01/13/21 19:32 81 22 50 01/13/21 19:00 86 22 104/61 (75) 98 01/13/21 18:30 87 22 108/65 (79) 98 01/13/21 18:13 99.3 01/13/21 18:00 88 22 109/60 (76) 98 01/13/21 18:00 22 103/69 Mechanical Ventilator 50 01/13/21 17:00 84 22 118/74 (89) 99 01/13/21 17:00 22 118/74 Mechanical Ventilator 50 01/13/21 16:30 89 22 112/69 (83) 98 01/13/21 16:00 96 22 111/69 (83) 98 01/13/21 16:00 Mechanical Ventilator 01/13/21 16:00 106 01/13/21 16:00 22 111/69 Mechanical Ventilator 50 01/13/21 16:00 50 01/13/21 16:00 99.4 96 22 111/69 (83) 98 01/13/21 15:46 86 22 50 01/13/21 15:30 87 22 102/59 (73) 97 01/13/21 15:00 94 22 105/62 (76) 97 01/13/21 15:00 50 105/62 Mechanical Ventilator 50 Intake and Output 01/13/21 01/14/21 19:00 07:00 Intake Total 990.000 ml 1209.525 ml Output Total 1200 ml 1318 ml Balance -210.000 ml -108.475 ml Free Water 150 ml 50 ml IV Total 480.000 ml 949.525 ml Tube Feeding 360 ml 150 ml Other 60 ml Output Urine Total 1200 ml 1318 ml Laboratory Tests 01/14/21 05:13: White Blood Count 10.2, Red Blood Count 4.62L, Hemoglobin 13.2L, Hematocrit 42.8, Mean Corpuscular Volume 93, Mean Corpuscular Hemoglobin 28.6, Mean Corpuscular Hemoglobin Concent 30.8L, Red Cell Distribution Width 14.2, Platelet Count 190, Mean Platelet Volume 11.5H, Neutrophils (%) (Auto) 81.7H, Lymphocytes (%) (Auto) 6.9L, Monocytes (%) (Auto) 8.5, Eosinophils (%) (Auto) 0.1, Basophils (%) (Auto) 2.8H, Prothrombin Time 18.7H, Prothromb Time International Ratio 1.8H , Sodium Level 146H, Potassium Level 4.7, Chloride Level 111H, Carbon Dioxide Level 29, Anion Gap 6, Blood Urea Nitrogen 21H, Creatinine 0.9, Estimat Glomerular Filtration Rate > 60, Glucose Level 337H, Calcium Level 9.0, Phosphorus Level 3.9, Magnesium Level 2.5H, Total Bilirubin 0.5, Aspartate Amino Transf (AST/SGOT) 22, Alanine Aminotransferase (ALT/SGPT) 27, Alkaline Phosphatase 50, C-Reactive Protein, Quantitative 4.7H, Pro-B-Type Natriuretic Peptide 189H, Total Protein 6.0L, Albumin 1.9L, Globulin 4.1, Albumin/Globulin Ratio 0.5L 01/14/21 08:15: Arterial Blood pH 7.438, Arterial Blood Partial Pressure CO2 48.6H, Arterial Blood Partial Pressure O2 95.9, Arterial Blood HCO3 32.1H, Arterial Blood Oxygen Saturation 96.9, Arterial Blood Base Excess 6.8H, Miguelito Test Positive Current Medications Medications (Trade) Dose Ordered Sig/Johnny Route PRN Reason Start Time Stop Time Status Last Admin Dose Admin Acetaminophen (Tylenol) 650 mg Q6H PRN NG Temp >100.5 01/09/21 09:15 02/08/21 09:14 01/14/21 00:41 Acetaminophen (Tylenol) 650 mg Q6H PRN NG Mild Pain (Pain Scale 1-3) 01/09/21 09:15 02/08/21 09:14 Albuterol Sulfate (Proventil MDI) 2 puff Q6HRT INH 01/02/21 19:00 04/02/21 18:59 01/14/21 13:28 Benztropine Mesylate (Cogentin) 1 mg EVERY 12 HOURS NG 01/09/21 09:15 02/01/21 09:14 01/13/21 20:15 Chlorhexidine Gluconate (Myranda-Hex 2%) 1 applic DAILY@2000 TOPIC 01/12/21 20:00 04/12/21 19:59 01/13/21 20:14 Dextrose (Dextrose 50%) 25 ml Q30M PRN IV Hypoglycemia 01/06/21 23:45 04/06/21 23:44 Dextrose (Dextrose 50%) 50 ml Q30M PRN IV Hypoglycemia 01/06/21 23:45 04/06/21 23:44 Divalproex Sodium (Depakote Sprinkles) 500 mg Q12HR GT 01/13/21 21:00 02/12/21 20:59 01/13/21 20:25 Fentanyl Citrate 250 ml @ 1 mls/hr Q24H IV 01/13/21 20:00 01/15/21 19:59 01/14/21 03:33 Insulin Aspart (NovoLOG) EVERY 6 HOURS SUBQ 01/09/21 12:00 04/04/21 16:29 01/14/21 11:36 Ipratropium [place] (Atrovent Inh) 1 puffs Q6HRT INH 01/02/21 19:00 02/01/21 18:59 01/14/21 13:28 Methylprednisolone Sodium Succinate (Solu-MEDROL) 40 mg EVERY 12 HOURS IVP 01/02/21 09:00 04/02/21 08:59 01/14/21 08:19 Midazolam HCl 200 ml @ 0 mls/hr Q24H PRN IV Agitation 01/14/21 02:30 01/21/21 01:59 01/14/21 12:41 Ondansetron HCl (Zofran) 4 mg Q4H PRN IVP Nausea & Vomiting 01/02/21 08:15 02/01/21 08:14 Pantoprazole (Protonix) 40 mg Q12HR IVP 01/08/21 21:00 02/06/21 08:59 01/14/21 08:19 Piperacillin Sod/ Tazobactam Sod 3.375 gm/Sodium Chloride 110 ml @ 27.5 mls/hr EVERY 8 HOURS IVPB 01/13/21 14:00 01/20/21 13:59 01/14/21 13:22 Sodium Chloride 1,000 ml @ 75 mls/hr [id number] IV 01/08/21 11:00 02/07/21 10:59 01/14/21 13:22 Warfarin Sodium (Coumadin per pharmacy) 1 ea DAILY PRN MISC Per rx protocol 01/02/21 08:30 02/01/21 08:29 Warfarin Sodium (Coumadin) 2.5 mg COUMADIN ORAL 01/14/21 17:00 01/14/21 18:00 Assessment/Plan Assessment/Plan Pulmonary CCM Progress Note HPI Patient is a 60 man with prior h/o COPD, CPS/bipolar DO, 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 ID following and started on CTx/Azithro + REM + SM 40 IV BID, CXR with bilateral infiltrates,ETT appropriate. Proning as tolerated Sedated in ICU on Ventilator, has OGT/central line On pressors PRN PEEP reduced to 8,maintaining O2 sats, FIO2 - 50%,ABG noted Pressure areas around ETT site - surgery following Allergies: Coded Allergies: No Known Allergies (Unverified , 01/02/21) PMH: COPD, CPS/bipolar DO, prior DVT/PE on AC, NHR, DM2, HTN and hydrocephalus Physical Exam Deferred Covid19 Vital Signs noted Laboratory Tests noted Imaging noted Height (Feet): 5 Height (Inches): 5.00 Weight (Pounds): 233 Medications Medications noted Assessment/Plan Problem List: (1) Pneumonia due to COVID-19 virus ICD Codes: U07.1 - COVID-19; J12.82 - Pneumonia due to coronavirus disease 2018 SNOMED: 054670946077852531 (2) Acute hypercapnic respiratory failure ICD Codes: J96.02 - Acute respiratory failure with hypercapnia SNOMED: 881306172 (3) Respiratory failure with hypoxia ICD Codes: J96.91 - Respiratory failure, unspecified with hypoxia SNOMED: 18091531189718232 Qualifiers: Qualified Codes: J96.01 - Acute respiratory failure with hypoxia (4) COPD (chronic obstructive pulmonary disease) ICD Codes: J44.9 - Chronic obstructive pulmonary disease, unspecified SNOMED: 54590129 (5) History of deep venous thrombosis or pulmonary embolus SNOMED: 514219184 (6) Obesity ICD Codes: E66.9 - Obesity, unspecified SNOMED: 945660680, 228249789 (7) Essential hypertension ICD Codes: I10 - Essential (primary) hypertension SNOMED: 69693343 (8) Diabetes mellitus type 2 in obese ICD Codes: E11.69 - Type 2 diabetes mellitus with other specified complication; E66.9 - Obesity, unspecified SNOMED: 41217344 (9) History of hydrocephalus ICD Codes: Z86.69 - Personal history of other diseases of the nervous system and sense organs SNOMED: 689994364 (10) Schizophrenia ICD Codes: F20.9 - Schizophrenia, unspecified SNOMED: 21260268 (11) Bipolar 1 disorder ICD Codes: F31.9 - Bipolar disorder, unspecified SNOMED: 672392229 (12) Anticoagulant long-term use ICD Codes: Z79.01 - long-term (current) use of anticoagulants SNOMED: 857779400 Assessment/Plan: ACVC - adjust PRN Prone as tolerated per protocol Adjust FiO2 to keep SaO2 > 92% Reduce PEEP as tolerated Sedation PRN HFA's IVF per Renal Pressors PRN F/U inflammatory markers and covid labs ID recs REM/SM per ID Abx per ID F/U Cx's Monitor volumes and renal function DVT Px: Coumadin TF when not proned Anuel Best MD Jan 14, 2021 14:59
--- NOTE | 2021-01-14 15:12 | Cardiology Report ---
APPROVED REPORT EKG Measurement Heart [id number] <Conclusion> Sinus tachycardia Otherwise normal ECG
[2021-01-14] MEDS ORDERED: Warfarin Sodium 2.5mg ORAL SCH (17:00)
[2021-01-14] MEDS: Dyna-Hex 2% Top Sol 2oz TOPIC SCH (20:00)
[2021-01-15] VITALS (34 sets, daily range): BP systolic 97–149; BP diastolic 62–88
[2021-01-15] MEDS: Ipratropium Bromide Inhaler INH SCH ×4 (00:38→19:14)
[2021-01-15] MEDS: Albuterol 90mcg Inhaler 8gm INH SCH ×4 (00:38→19:15)
[2021-01-15] MEDS: Versed 100mg/NS 200ml 200 ML IV PRN ×2 (01:36→18:00)
[2021-01-15 04:58] LABS: ANION GAP 8 mmol/L (5-15); BLOOD UREA NITROGEN 23 mg/dL (7-18); CALCIUM 8.9 MG/DL (8.5-10.1); CARBON DIOXIDE 27 MMOL/L (21-32); CHLORIDE 110 MMOL/L (98-107); CREATININE 0.9 MG/DL (0.55-1.30); POTASSIUM 4.5 MMOL/L (3.5-5.1); SODIUM 145 MMOL/L (136-145)
[2021-01-15 05:00] LABS: INR 2.2 (0.9-1.1)
[2021-01-15 05:02] LABS: HEMATOCRIT 42.5 % (42.0-52.0); HEMOGLOBIN 13.3 G/DL (14.2-18.0); MEAN CORPUSCULAR VOLUME 92 FL (80-99); PLATELET COUNT 195 K/UL (150-450); RED BLOOD COUNT 4.62 M/UL (4.70-6.10); RED CELL DISTRIBUTION WIDTH 13.7 % (11.6-14.8); WHITE BLOOD COUNT 11.5 K/UL (4.8-10.8)
[2021-01-15] MEDS: Piperacillin/Tazobactam 3.375 GM in NS 110 ML IVPB SCH ×3 (06:14→22:00)
[2021-01-15] MEDS: NovoLOG Insulin Flexpen SUBQ SCH ×3 (06:14→17:09)
[2021-01-15] MEDS: Benztropine 1mg tab NG SCH ×2 (08:26→20:28)
[2021-01-15] MEDS: Depakote 125mg Sprinkles GT SCH ×2 (08:26→20:28)
[2021-01-15] MEDS: Solu-MEDROL 40mg Inj IVP SCH ×2 (08:27→20:27)
[2021-01-15] MEDS: Pantoprazole Inj IVP SCH (08:45)
--- NOTE | 2021-01-15 08:49 | Infectious Diseases Prog Note ---
Assessment/Plan 60yo M with: Staph epi bacteremia, m/l skin contaminant 01/10 BCx 1/2 +Staph epi 01/13 BCx NTD COVID pna, severe Acute hypoxia 2/2 COVID pna >> intubated 01/06 Febrile to 103 Normal WBC Elevated AST 51 2/2 Tested positive for COVID at [facility] 2/ COVID PCR positive / BCx NTD CXR: Multifocal pna MRSA nares neg 01/06 Intubated in ICU CXR: 1. Appropriately positioned endotracheal and enteric tubes. 2. Stable bilateral airspace disease. 01/07 Resp cx +Yasmine albicans (colonizer) 01/11 CXR: Interval improved bilateral lung aeration. Bibasilar infiltrates/atelectasis. Cr 1.1 HIV screen neg PMH: DM2 COPD HTN SNF resident Plan: Cont Zosyn #7/7-10 given critical illness Cont steroids #/, on methylpred 40 IV q12 - defer course to Pulm/Primary, consider stopping given s/p 10 day course wo clear improvement 01/14 SP vanco IV #1 01/09 SP CTX #7 01/07 SP azithro #5, RDV #5 This institution does not have access to convalescent plasma and only recommended to give in setting of clinical trial Monitor CBC/CMP Monitor temp curve, hemodynamics Monitor resp status D/w RN Thank you for this consult. [facility] will continue to follow. Subjective Allergies: Coded Allergies: No Known Allergies (Unverified , 01/02/21) AF Sedated on vent 40% PEEP 5 WBC stable at 11 Objective Last 24 Hour Vital Signs Date Time Temp Pulse Resp B/P (MAP) Pulse Ox O2 Delivery O2 Flow Rate FiO2 01/15/21 08:00 40 01/15/21 08:00 Mechanical Ventilator 01/15/21 07:30 76 22 106/76 (86) 94 01/15/21 07:00 73 22 105/74 (84) 94 01/15/21 06:00 74 22 109/75 (86) 96 01/15/21 05:33 22 125/73 Mechanical Ventilator 40 01/15/21 05:33 22 119/70 Mechanical Ventilator 40 01/15/21 05:30 76 20 130/87 (101) 96 01/15/21 05:00 69 22 116/87 (97) 94 01/15/21 04:33 22 109/69 Mechanical Ventilator 40 01/15/21 04:33 22 123/75 Mechanical Ventilator 40 01/15/21 04:30 71 22 108/79 (89) 94 01/15/21 04:00 Mechanical Ventilator 01/15/21 04:00 40 01/15/21 04:00 99.4 81 22 107/71 (83) 94 01/15/21 04:00 80 01/15/21 03:41 88 22 40 01/15/21 03:33 22 107/71 Mechanical Ventilator 40 01/15/21 03:33 22 107/67 Mechanical Ventilator 40 01/15/21 03:30 88 18 120/79 (93) 93 01/15/21 03:00 83 20 107/87 (94) 94 01/15/21 02:33 22 106/70 Mechanical Ventilator 40 01/15/21 02:33 22 98/59 40 01/15/21 02:30 92 22 103/66 (78) 94 01/15/21 01:36 22 112/63 Mechanical Ventilator 40 01/15/21 01:33 22 123/69 Mechanical Ventilator 40 01/15/21 01:33 22 103/55 Mechanical Ventilator 40 01/15/21 01:30 74 99/70 (80) 96 01/15/21 01:00 84 21 109/76 (87) 95 01/15/21 00:38 99 22 40 01/15/21 00:33 22 110/65 Mechanical Ventilator 45 01/15/21 00:33 22 110/65 Mechanical Ventilator 45 01/15/21 00:30 101 19 112/71 (85) 98 01/15/21 00:00 45 01/15/21 00:00 Mechanical Ventilator 01/15/21 00:00 103 01/15/21 00:00 100.6 100 21 128/84 (99) 94 01/14/21 23:33 22 125/62 Mechanical Ventilator 45 01/14/21 23:33 22 125/69 Mechanical Ventilator 45 01/14/21 23:30 97 20 122/75 (91) 96 01/14/21 23:27 97 22 45 01/14/21 23:00 85 16 118/70 (86) 94 01/14/21 22:33 22 110/63 Mechanical Ventilator 45 01/14/21 22:33 22 110/65 Mechanical Ventilator 45 01/14/21 22:30 74 19 123/80 (94) 94 01/14/21 22:00 78 19 110/74 (86) 94 01/14/21 21:58 100.2 01/14/21 21:33 18 101/63 Mechanical Ventilator 45 01/14/21 21:33 20 101/63 Mechanical Ventilator 45 01/14/21 21:30 89 21 101/63 (76) 94 01/14/21 21:00 100.6 103 23 103/60 (74) 92 01/14/21 20:33 18 102/60 Mechanical Ventilator 45 01/14/21 20:33 18 102/60 Mechanical Ventilator 45 01/14/21 20:30 99 21 104/67 (79) 93 01/14/21 20:00 45 01/14/21 20:00 97 22 115/74 (88) 93 01/14/21 20:00 92 01/14/21 20:00 Mechanical Ventilator 01/14/21 19:39 84 22 45 01/14/21 19:33 28 109/53 Mechanical Ventilator 50 01/14/21 19:33 28 109/53 Mechanical Ventilator 50 01/14/21 19:30 75 22 108/76 (87) 95 01/14/21 19:00 76 22 110/74 (86) 95 01/14/21 18:33 22 113/72 Mechanical Ventilator 50 01/14/21 18:33 22 113/72 Mechanical Ventilator 50 01/14/21 18:00 103 29 113/72 (86) 95 01/14/21 17:50 95 22 50 01/14/21 17:33 22 147/79 Mechanical Ventilator 50 01/14/21 17:33 22 147/79 Mechanical Ventilator 50 01/14/21 17:00 80 22 147/79 (101) 100 01/14/21 16:33 22 128/82 Mechanical Ventilator 50 01/14/21 16:33 22 128/82 Mechanical Ventilator 50 01/14/21 16:00 79 01/14/21 16:00 Mechanical Ventilator 01/14/21 16:00 50 01/14/21 16:00 98.9 79 22 126/82 (97) 100 01/14/21 15:33 22 129/83 Mechanical Ventilator 50 01/14/21 15:33 22 129/83 Mechanical Ventilator 50 01/14/21 15:00 82 22 134/84 (101) 100 01/14/21 14:33 22 134/81 Mechanical Ventilator 50 01/14/21 14:33 22 134/81 Mechanical Ventilator 50 01/14/21 14:00 80 22 136/87 (103) 100 01/14/21 13:33 22 134/84 Mechanical Ventilator 50 01/14/21 13:33 22 134/84 Mechanical Ventilator 50 01/14/21 13:28 79 22 50 01/14/21 13:00 77 22 136/86 (103) 100 01/14/21 12:41 22 137/83 Mechanical Ventilator 50 01/14/21 12:33 22 137/83 Mechanical Ventilator 50 01/14/21 12:33 22 137/83 Mechanical Ventilator 50 01/14/21 12:00 98.7 80 22 136/89 (105) 100 01/14/21 12:00 50 01/14/21 12:00 Mechanical Ventilator 01/14/21 12:00 73 01/14/21 11:33 22 144/87 Mechanical Ventilator 50 01/14/21 11:33 22 144/87 Mechanical Ventilator 50 01/14/21 11:00 79 22 141/89 (106) 100 01/14/21 10:33 22 141/95 Mechanical Ventilator 50 01/14/21 10:33 22 141/95 Mechanical Ventilator 50 01/14/21 10:00 80 22 138/86 (103) 100 01/14/21 09:33 22 139/91 Mechanical Ventilator 50 01/14/21 09:33 22 139/91 Mechanical Ventilator 50 01/14/21 09:00 80 22 138/86 (103) 100 Height (Feet): 5 Height (Inches): 5.00 Weight (Pounds): 233 Gen: NAD HEENT: NCAT, ETT CV: RRR Pulm: BL chest rise Ext: No c/c/e Skin: No visible rashes Neuro: Sedated Microbiology Date/Time Source Procedure Growth Status 01/13/21 10:51 Blood Blood Culture - Preliminary NO GROWTH AFTER 24 HOURS Resulted Laboratory Tests Test 01/15/21 02:55 White Blood Count 11.5 K/UL (4.8-10.8) H Red Blood Count 4.62 M/UL (4.70-6.10) L Hemoglobin 13.3 G/DL (14.2-18.0) L Hematocrit 42.5 % (42.0-52.0) Mean Corpuscular Volume 92 FL (80-99) Mean Corpuscular Hemoglobin 28.7 PG (27.0-31.0) Mean Corpuscular Hemoglobin Concent 31.2 G/DL (32.0-36.0) L Red Cell Distribution Width 13.7 % (11.6-14.8) Platelet Count 195 K/UL (150-450) Mean Platelet Volume 10.1 FL (6.5-10.1) Neutrophils (%) (Auto) % (45.0-75.0) Lymphocytes (%) (Auto) % (20.0-45.0) Monocytes (%) (Auto) % (1.0-10.0) Eosinophils (%) (Auto) % (0.0-3.0) Basophils (%) (Auto) % (0.0-2.0) Neutrophils % (Manual) Pending Lymphocytes % (Manual) Pending Platelet Estimate Pending Platelet Morphology Pending Prothrombin Time 22.4 SEC (9.30-11.50) H Prothromb Time International Ratio 2.2 (0.9-1.1) H Sodium Level 145 MMOL/L (136-145) Potassium Level 4.5 MMOL/L (3.5-5.1) Chloride Level 110 MMOL/L (98-107) H Carbon Dioxide Level 27 MMOL/L (21-32) Anion Gap 8 mmol/L (5-15) Blood Urea Nitrogen 23 mg/dL (7-18) H Creatinine 0.9 MG/DL (0.55-1.30) Estimat Glomerular Filtration Rate > 60 mL/min (>60) Glucose Level 297 MG/DL (74-106) H Calcium Level 8.9 MG/DL (8.5-10.1) Current Medications Medications (Trade) Dose Ordered Sig/Johnny Route PRN Reason Start Time Stop Time Status Last Admin Dose Admin Acetaminophen (Tylenol) 650 mg Q6H PRN NG Temp >100.5 01/09/21 09:15 3 09:14 01/14/21 21:28 Acetaminophen (Tylenol) 650 mg Q6H PRN NG Mild Pain (Pain Scale 1-3) 01/09/21 09:15 02/08/21 09:14 Albuterol Sulfate (Proventil MDI) 2 puff Q6HRT INH 01/02/21 19:00 04/02/21 18:59 01/15/21 00:38 Benztropine Mesylate (Cogentin) 1 mg EVERY 12 HOURS NG 01/09/21 09:15 02/01/21 09:14 01/15/21 08:26 Chlorhexidine Gluconate (Myranda-Hex 2%) 1 applic DAILY@2000 TOPIC 01/12/21 20:00 04/12/21 19:59 01/14/21 20:00 Dextrose (Dextrose 50%) 25 ml Q30M PRN IV Hypoglycemia 01/06/21 23:45 04/06/21 23:44 Dextrose (Dextrose 50%) 50 ml Q30M PRN IV Hypoglycemia 01/06/21 23:45 04/06/21 23:44 Divalproex Sodium (Depakote Sprinkles) 500 mg Q12HR GT 01/13/21 21:00 02/12/21 20:59 01/15/21 08:26 Fentanyl Citrate 250 ml @ 1 mls/hr Q24H IV 01/13/21 20:00 01/15/21 19:59 01/14/21 03:33 Insulin Aspart (NovoLOG) EVERY 6 HOURS SUBQ 01/09/21 12:00 04/04/21 16:29 01/15/21 06:14 Ipratropium [place] (Atrovent Inh) 1 puffs Q6HRT INH 01/02/21 19:00 02/01/21 18:59 01/15/21 00:38 Methylprednisolone Sodium Succinate (Solu-MEDROL) 40 mg EVERY 12 HOURS IVP 01/02/21 09:00 04/02/21 08:59 01/15/21 08:27 Midazolam HCl 200 ml @ 0 mls/hr Q24H PRN IV Agitation 01/14/21 02:30 01/16/21 02:29 01/15/21 01:36 Ondansetron HCl (Zofran) 4 mg Q4H PRN IVP Nausea & Vomiting 01/02/21 08:15 02/01/21 08:14 Pantoprazole (Protonix) 40 mg Q12HR IVP 01/08/21 21:00 02/06/21 08:59 01/15/21 08:45 Piperacillin Sod/ Tazobactam Sod 3.375 gm/Sodium Chloride 110 ml @ 27.5 mls/hr EVERY 8 HOURS IVPB 01/13/21 14:00 01/20/21 13:59 01/15/21 06:14 Sodium Chloride 1,000 ml @ 75 mls/hr [id number] IV 01/08/21 11:00 02/07/21 10:59 01/14/21 13:22 Warfarin Sodium (Coumadin per pharmacy) 1 ea DAILY PRN MISC Per rx protocol 01/02/21 08:30 02/01/21 08:29 Warfarin Sodium (Warfarin Sod) 2 mg COUMADIN ORAL 01/15/21 17:00 01/15/21 19:00 Renetta Gomez M.D. Jan 15, 2021 08:49
--- NOTE | 2021-01-15 10:41 | Nephrology Progress Note ---
Assessment/Plan Problem List: (1) Hyperkalemia (2) Pneumonia due to COVID-19 virus (3) Respiratory failure with hypoxia (4) Obesity (5) Schizophrenia (6) DMII (diabetes mellitus, type 2) Assessment Hyperkalemia Stable renal parameters Hyperglycemia Covid pneumonia due to COVID-19 virus Acute respiratory failure with hypoxia requiring mechanical ventilation History of COPD History of DVT, pulmonary emboli Obese Hypertension History of diabetes Psych condition, schizophrenia, bipolar disease Plan January 15: Patient remains intubated and full code. Labs reviewed. Stable renal parameters. January 14: Patient full code. Intubated on ventilator. On prone position until 5 PM. Labs reviewed. Stable from renal standpoint of view. January 13: Labs reviewed. Renal parameters stable. Continue per consultants. Patient remain full code and intubated on ventilator. January 12: Labs reviewed. Renal parameters stable. Patient remains full code. Remains intubated on ventilator and on prone position. Continue per consultants. January 11: Labs reviewed. Renal parameters stable. Continue per consultants. January 10: Labs reviewed. Renal parameters stable. Continue per consultants. Change IV to half-normal saline Kayexalate via NG tube for high potassium Monitor electrolytes and renal parameters Per orders, per consultants Subjective ROS Limited/Unobtainable: Yes Objective Objective Last 24 Hour Vital Signs Date Time Temp Pulse Resp B/P (MAP) Pulse Ox O2 Delivery O2 Flow Rate FiO2 01/15/21 10:00 81 22 121/81 (94) 96 01/15/21 09:00 100 18 121/70 (87) 94 01/15/21 08:30 92 22 100/62 (75) 93 01/15/21 08:00 40 01/15/21 08:00 100.1 92 22 97/72 (80) 95 01/15/21 08:00 109 01/15/21 08:00 Mechanical Ventilator 01/15/21 07:30 76 22 106/76 (86) 94 01/15/21 07:10 98 24 40 01/15/21 07:00 73 22 105/74 (84) 94 01/15/21 06:00 74 22 109/75 (86) 96 01/15/21 05:33 22 125/73 Mechanical Ventilator 40 01/15/21 05:33 22 119/70 Mechanical Ventilator 40 01/15/21 05:30 76 20 130/87 (101) 96 01/15/21 05:00 69 22 116/87 (97) 94 01/15/21 04:33 22 109/69 Mechanical Ventilator 40 01/15/21 04:33 22 123/75 Mechanical Ventilator 40 01/15/21 04:30 71 22 108/79 (89) 94 01/15/21 04:00 Mechanical Ventilator 01/15/21 04:00 40 01/15/21 04:00 99.4 81 22 107/71 (83) 94 01/15/21 04:00 80 01/15/21 03:41 88 22 40 01/15/21 03:33 22 107/71 Mechanical Ventilator 40 01/15/21 03:33 22 107/67 Mechanical Ventilator 40 01/15/21 03:30 88 18 120/79 (93) 93 01/15/21 03:00 83 20 107/87 (94) 94 01/15/21 02:33 22 106/70 Mechanical Ventilator 40 01/15/21 02:33 22 98/59 40 01/15/21 02:30 92 22 103/66 (78) 94 01/15/21 01:36 22 112/63 Mechanical Ventilator 40 01/15/21 01:33 22 123/69 Mechanical Ventilator 40 01/15/21 01:33 22 103/55 Mechanical Ventilator 40 01/15/21 01:30 74 99/70 (80) 96 01/15/21 01:00 84 21 109/76 (87) 95 01/15/21 00:38 99 22 40 01/15/21 00:33 22 110/65 Mechanical Ventilator 45 01/15/21 00:33 22 110/65 Mechanical Ventilator 45 01/15/21 00:30 101 19 112/71 (85) 98 01/15/21 00:00 45 01/15/21 00:00 Mechanical Ventilator 01/15/21 00:00 103 01/15/21 00:00 100.6 100 21 128/84 (99) 94 01/14/21 23:33 22 125/62 Mechanical Ventilator 45 01/14/21 23:33 22 125/69 Mechanical Ventilator 45 01/14/21 23:30 97 20 122/75 (91) 96 01/14/21 23:27 97 22 45 01/14/21 23:00 85 16 118/70 (86) 94 01/14/21 22:33 22 110/63 Mechanical Ventilator 45 01/14/21 22:33 22 110/65 Mechanical Ventilator 45 01/14/21 22:30 74 19 123/80 (94) 94 01/14/21 22:00 78 19 110/74 (86) 94 01/14/21 21:58 100.2 01/14/21 21:33 18 101/63 Mechanical Ventilator 45 21 21:33 20 101/63 Mechanical Ventilator 45 01/14/21 21:30 89 21 101/63 (76) 94 01/14/21 21:00 100.6 103 23 103/60 (74) 92 01/14/21 20:33 18 102/60 Mechanical Ventilator 45 01/14/21 20:33 18 102/60 Mechanical Ventilator 45 01/14/21 20:30 99 21 104/67 (79) 93 01/14/21 20:00 45 01/14/21 20:00 97 22 115/74 (88) 93 01/14/21 20:00 92 01/14/21 20:00 Mechanical Ventilator 01/14/21 19:39 84 22 45 01/14/21 19:33 28 109/53 Mechanical Ventilator 50 01/14/21 19:33 28 109/53 Mechanical Ventilator 50 01/14/21 19:30 75 22 108/76 (87) 95 01/14/21 19:00 76 22 110/74 (86) 95 01/14/21 18:33 22 113/72 Mechanical Ventilator 50 01/14/21 18:33 22 113/72 Mechanical Ventilator 50 01/14/21 18:00 103 29 113/72 (86) 95 01/14/21 17:50 95 22 50 01/14/21 17:33 22 147/79 Mechanical Ventilator 50 01/14/21 17:33 22 147/79 Mechanical Ventilator 50 01/14/21 17:00 80 22 147/79 (101) 100 01/14/21 16:33 22 128/82 Mechanical Ventilator 50 01/14/21 16:33 22 128/82 Mechanical Ventilator 50 01/14/21 16:00 79 01/14/21 16:00 Mechanical Ventilator 01/14/21 16:00 50 01/14/21 16:00 98.9 79 22 126/82 (97) 100 01/14/21 15:33 22 129/83 Mechanical Ventilator 50 01/14/21 15:33 22 129/83 Mechanical Ventilator 50 01/14/21 15:00 82 22 134/84 (101) 100 01/14/21 14:33 22 134/81 Mechanical Ventilator 50 01/14/21 14:33 22 134/81 Mechanical Ventilator 50 01/14/21 14:00 80 22 136/87 (103) 100 01/14/21 13:33 22 134/84 Mechanical Ventilator 50 01/14/21 13:33 22 134/84 Mechanical Ventilator 50 01/14/21 13:28 79 22 50 01/14/21 13:00 77 22 136/86 (103) 100 01/14/21 12:41 22 137/83 Mechanical Ventilator 50 01/14/21 12:33 22 137/83 Mechanical Ventilator 50 01/14/21 12:33 22 137/83 Mechanical Ventilator 50 01/14/21 12:00 98.7 80 22 136/89 (105) 100 01/14/21 12:00 50 01/14/21 12:00 Mechanical Ventilator 01/14/21 12:00 73 01/14/21 11:33 22 144/87 Mechanical Ventilator 50 01/14/21 11:33 22 144/87 Mechanical Ventilator 50 01/14/21 11:00 79 22 141/89 (106) 100 Intake and Output 01/14/21 01/15/21 19:00 07:00 Intake Total 1156.5 ml 731.47 ml Output Total 1300 ml 925 ml Balance -143.5 ml -193.53 ml Free Water 75 ml IV Total 1096.5 ml 296.47 ml Tube Feeding 60 ml 360 ml Output Urine Total 1300 ml 925 ml Current Medications Medications (Trade) Dose Ordered Sig/Johnny Route PRN Reason Start Time Stop Time Status Last Admin Dose Admin Acetaminophen (Tylenol) 650 mg Q6H PRN NG Temp >100.5 01/09/21 09:15 02/08/21 09:14 01/14/21 21:28 Acetaminophen (Tylenol) 650 mg Q6H PRN NG Mild Pain (Pain Scale 1-3) 01/09/21 09:15 02/08/21 09:14 Albuterol Sulfate (Proventil MDI) 2 puff Q6HRT INH 01/02/21 19:00 04/02/21 18:59 01/15/21 07:10 Benztropine Mesylate (Cogentin) 1 mg EVERY 12 HOURS NG 01/09/21 09:15 02/01/21 09:14 01/15/21 08:26 Chlorhexidine Gluconate (Myranda-Hex 2%) 1 applic DAILY@2000 TOPIC 01/12/21 20:00 04/12/21 19:59 01/14/21 20:00 Dextrose (Dextrose 50%) 25 ml Q30M PRN IV Hypoglycemia 01/06/21 23:45 04/06/21 23:44 Dextrose (Dextrose 50%) 50 ml Q30M PRN IV Hypoglycemia 01/06/21 23:45 04/06/21 23:44 Divalproex Sodium (Depakote Sprinkles) 500 mg Q12HR GT 01/13/21 21:00 02/12/21 20:59 01/15/21 08:26 Fentanyl Citrate 250 ml @ 1 mls/hr Q24H IV 01/13/21 20:00 01/15/21 19:59 01/14/21 03:33 Insulin Aspart (NovoLOG) EVERY 6 HOURS SUBQ 01/09/21 12:00 04/04/21 16:29 01/15/21 06:14 Ipratropium [place] (Atrovent Inh) 1 puffs Q6HRT INH 01/02/21 19:00 02/01/21 18:59 01/15/21 07:10 Methylprednisolone Sodium Succinate (Solu-MEDROL) 40 mg EVERY 12 HOURS IVP 01/02/21 09:00 04/02/21 08:59 01/15/21 08:27 Midazolam HCl 200 ml @ 0 mls/hr Q24H PRN IV Agitation 01/14/21 02:30 01/16/21 02:29 01/15/21 01:36 Ondansetron HCl (Zofran) 4 mg Q4H PRN IVP Nausea & Vomiting 01/02/21 08:15 02/01/21 08:14 Pantoprazole (Protonix) 40 mg Q12HR IVP 01/08/21 21:00 02/06/21 08:59 01/15/21 08:45 Piperacillin Sod/ Tazobactam Sod 3.375 gm/Sodium Chloride 110 ml @ 27.5 mls/hr EVERY 8 HOURS IVPB 01/13/21 14:00 01/20/21 13:59 01/15/21 06:14 Sodium Chloride 1,000 ml @ 75 mls/hr [id number] IV 01/08/21 11:00 02/07/21 10:59 01/14/21 13:22 Warfarin Sodium (Coumadin per pharmacy) 1 ea DAILY PRN MISC Per rx protocol 01/02/21 08:30 02/01/21 08:29 Warfarin Sodium (Warfarin Sod) 2 mg COUMADIN ORAL 01/15/21 17:00 01/15/21 19:00 Laboratory Tests 01/15/21 02:55: White Blood Count 11.5H, Red Blood Count 4.62L, Hemoglobin 13.3L, Hematocrit 42.5, Mean Corpuscular Volume 92, Mean Corpuscular Hemoglobin 28.7, Mean Corpuscular Hemoglobin Concent 31.2L, Red Cell Distribution Width 13.7, Platelet Count 195, Mean Platelet Volume 10.1, Neutrophils (%) (Auto) , Lymphocytes (%) (Auto) , Monocytes (%) (Auto) , Eosinophils (%) (Auto) , Basophils (%) (Auto) , Differential Total Cells Counted 100, Neutrophils % (Manual) 82H, Lymphocytes % (Manual) 14L, Monocytes % (Manual) 4, Eosinophils % (Manual) 0, Basophils % (Manual) 0, Band Neutrophils 0, Platelet Estimate Adequate, Platelet Morphology Normal, Red Blood Cell Morphology Normal, Prothrombin Time 22.4H, Prothromb Time International Ratio 2.2H, Sodium Level 145, Potassium Level 4.5, Chloride Level 110H, Carbon Dioxide Level 27, Anion Gap 8, Blood Urea Nitrogen 23H, Creatinine 0.9, Estimat Glomerular Filtration Rate > 60, Glucose Level 297H, Calcium Level 8.9 01/15/21 08:56: Arterial Blood pH 7.453H, Arterial Blood Partial Pressure CO2 39.4, Arterial Blood Partial Pressure O2 73.8L, Arterial Blood HCO3 27.0H, Arterial Blood Oxygen Saturation 94.1L, Arterial Blood Base Excess 2.9H, Miguelito Test Positive Height (Feet): 5 Height (Inches): 5.00 Weight (Pounds): 233 General Appearance: no apparent distress EENT: other - Intubated on ventilator Cardiovascular: tachycardia Respiratory/Chest: decreased breath sounds Abdomen: distended Fouladian,Avi MD Jan 15, 2021 10:41
--- NOTE | 2021-01-15 13:46 | Diagnostic Imaging Report ---
Indication: Cough Technique: One view of the chest Comparison: 01/11/2021 Findings: Infiltrate is seen at the left lung base. Atelectasis is seen at the right lung base. Stable satisfactory tube positions. Findings are overall unchanged Impression: Unchanged, over 4 days, findings as above.
--- NOTE | 2021-01-15 16:11 | Pulmonology Progress Note ---
Subjective ROS Limited/Unobtainable: Yes Allergies: Coded Allergies: No Known Allergies (Unverified , 01/02/21) Objective Last 24 Hour Vital Signs Date Time Temp Pulse Resp B/P (MAP) Pulse Ox O2 Delivery O2 Flow Rate FiO2 01/15/21 16:00 100 01/15/21 15:00 96 22 128/83 (98) 96 01/15/21 15:00 22 128/83 Mechanical Ventilator 40 01/15/21 15:00 22 128/83 Mechanical Ventilator 40 01/15/21 14:45 22 123/83 Mechanical Ventilator 40 01/15/21 14:30 22 129/84 Mechanical Ventilator 40 01/15/21 14:15 22 129/84 Mechanical Ventilator 40 01/15/21 14:00 22 129/84 Mechanical Ventilator 40 01/15/21 14:00 22 129/84 Mechanical Ventilator 40 01/15/21 14:00 87 22 129/84 (99) 96 01/15/21 13:00 94 22 121/81 (94) 97 01/15/21 13:00 22 121/81 Mechanical Ventilator 40 01/15/21 13:00 22 121/81 Mechanical Ventilator 40 01/15/21 13:00 96 24 40 01/15/21 12:30 81 22 124/85 (98) 95 01/15/21 12:00 Mechanical Ventilator 01/15/21 12:00 99.0 80 22 115/72 (86) 96 01/15/21 12:00 22 124/85 Mechanical Ventilator 40 01/15/21 12:00 22 124/85 Mechanical Ventilator 40 01/15/21 12:00 40 01/15/21 12:00 81 01/15/21 11:00 22 112/73 Mechanical Ventilator 40 01/15/21 11:00 22 112/73 Mechanical Ventilator 40 01/15/21 11:00 99.0 66 22 126/88 (101) 95 01/15/21 10:00 81 22 121/81 (94) 96 01/15/21 10:00 22 122/84 Mechanical Ventilator 40 01/15/21 10:00 22 122/84 Mechanical Ventilator 40 01/15/21 09:00 22 114/82 Mechanical Ventilator 40 01/15/21 09:00 22 114/82 Mechanical Ventilator 40 01/15/21 09:00 100 18 121/70 (87) 94 01/15/21 08:30 92 22 100/62 (75) 93 01/15/21 08:00 40 01/15/21 08:00 100.1 92 22 97/72 (80) 95 01/15/21 08:00 22 100/62 Mechanical Ventilator 40 01/15/21 08:00 22 100/62 Mechanical Ventilator 40 01/15/21 08:00 109 01/15/21 08:00 Mechanical Ventilator 01/15/21 07:30 76 22 106/76 (86) 94 01/15/21 07:10 98 24 40 01/15/21 07:00 73 22 105/74 (84) 94 01/15/21 07:00 22 106/76 Mechanical Ventilator 40 01/15/21 07:00 22 106/76 Mechanical Ventilator 40 01/15/21 06:00 74 22 109/75 (86) 96 01/15/21 05:33 22 125/73 Mechanical Ventilator 40 01/15/21 05:33 22 119/70 Mechanical Ventilator 40 01/15/21 05:30 76 20 130/87 (101) 96 01/15/21 05:00 69 22 116/87 (97) 94 01/15/21 04:33 22 109/69 Mechanical Ventilator 40 01/15/21 04:33 22 123/75 Mechanical Ventilator 40 01/15/21 04:30 71 22 108/79 (89) 94 01/15/21 04:00 Mechanical Ventilator 01/15/21 04:00 40 01/15/21 04:00 99.4 81 22 107/71 (83) 94 01/15/21 04:00 80 01/15/21 03:41 88 22 40 01/15/21 03:33 22 107/71 Mechanical Ventilator 40 01/15/21 03:33 22 107/67 Mechanical Ventilator 40 01/15/21 03:30 88 18 120/79 (93) 93 01/15/21 03:00 83 20 107/87 (94) 94 01/15/21 02:33 22 106/70 Mechanical Ventilator 40 01/15/21 02:33 22 98/59 40 01/15/21 02:30 92 22 103/66 (78) 94 01/15/21 01:36 22 112/63 Mechanical Ventilator 40 01/15/21 01:33 22 123/69 Mechanical Ventilator 40 2/16/21 01:33 22 103/55 Mechanical Ventilator 40 01/15/21 01:30 74 99/70 (80) 96 01/15/21 01:00 84 21 109/76 (87) 95 01/15/21 00:38 99 22 40 01/15/21 00:33 22 110/65 Mechanical Ventilator 45 01/15/21 00:33 22 110/65 Mechanical Ventilator 45 01/15/21 00:30 101 19 112/71 (85) 98 01/15/21 00:00 45 01/15/21 00:00 Mechanical Ventilator 01/15/21 00:00 103 01/15/21 00:00 100.6 100 21 128/84 (99) 94 01/14/21 23:33 22 125/62 Mechanical Ventilator 45 01/14/21 23:33 22 125/69 Mechanical Ventilator 45 01/14/21 23:30 97 20 122/75 (91) 96 01/14/21 23:27 97 22 45 01/14/21 23:00 85 16 118/70 (86) 94 01/14/21 22:33 22 110/63 Mechanical Ventilator 45 01/14/21 22:33 22 110/65 Mechanical Ventilator 45 01/14/21 22:30 74 19 123/80 (94) 94 01/14/21 22:00 78 19 110/74 (86) 94 01/14/21 21:58 100.2 01/14/21 21:33 18 101/63 Mechanical Ventilator 45 01/14/21 21:33 20 101/63 Mechanical Ventilator 45 01/14/21 21:30 89 21 101/63 (76) 94 01/14/21 21:00 100.6 103 23 103/60 (74) 92 01/14/21 20:33 18 102/60 Mechanical Ventilator 45 01/14/21 20:33 18 102/60 Mechanical Ventilator 45 01/14/21 20:30 99 21 104/67 (79) 93 01/14/21 20:00 45 01/14/21 20:00 97 22 115/74 (88) 93 01/14/21 20:00 92 01/14/21 20:00 Mechanical Ventilator 01/14/21 19:39 84 22 45 01/14/21 19:33 28 109/53 Mechanical Ventilator 50 01/14/21 19:33 28 109/53 Mechanical Ventilator 50 01/14/21 19:30 75 22 108/76 (87) 95 01/14/21 19:00 76 22 110/74 (86) 95 01/14/21 18:33 22 113/72 Mechanical Ventilator 50 01/14/21 18:33 22 113/72 Mechanical Ventilator 50 01/14/21 18:00 103 29 113/72 (86) 95 01/14/21 17:50 95 22 50 01/14/21 17:33 22 147/79 Mechanical Ventilator 50 01/14/21 17:33 22 147/79 Mechanical Ventilator 50 01/14/21 17:00 80 22 147/79 (101) 100 01/14/21 16:33 22 128/82 Mechanical Ventilator 50 01/14/21 16:33 22 128/82 Mechanical Ventilator 50 Intake and Output 01/14/21 01/15/21 19:00 07:00 Intake Total 1156.5 ml 731.47 ml Output Total 1300 ml 925 ml Balance -143.5 ml -193.53 ml Free Water 75 ml IV Total 1096.5 ml 296.47 ml Tube Feeding 60 ml 360 ml Output Urine Total 1300 ml 925 ml Microbiology Date/Time Source Procedure Growth Status 01/13/21 10:51 Blood Blood Culture - Preliminary NO GROWTH AFTER 24 HOURS Resulted Laboratory Tests 01/15/21 02:55: White Blood Count 11.5H, Red Blood Count 4.62L, Hemoglobin 13.3L, Hematocrit 42.5, Mean Corpuscular Volume 92, Mean Corpuscular Hemoglobin 28.7, Mean Corpuscular Hemoglobin Concent 31.2L, Red Cell Distribution Width 13.7, Platelet Count 195, Mean Platelet Volume 10.1, Neutrophils (%) (Auto) , Lymphocytes (%) (Auto) , Monocytes (%) (Auto) , Eosinophils (%) (Auto) , Basophils (%) (Auto) , Differential Total Cells Counted 100, Neutrophils % (Manual) 82H, Lymphocytes % (Manual) 14L, Monocytes % (Manual) 4, Eosinophils % (Manual) 0, Basophils % (Manual) 0, Band Neutrophils 0, Platelet Estimate Adequate, Platelet Morphology Normal, Red Blood Cell Morphology Normal, Prothrombin Time 22.4H, Prothromb Time International Ratio 2.2H, Sodium Level 145, Potassium Level 4.5, Chloride Level 110H, Carbon Dioxide Level 27, Anion Gap 8, Blood Urea Nitrogen 23H, Creatinine 0.9, Estimat Glomerular Filtration Rate > 60, Glucose Level 297H, Calcium Level 8.9 01/15/21 08:56: Arterial Blood pH 7.453H, Arterial Blood Partial Pressure CO2 39.4, Arterial Blood Partial Pressure O2 73.8L, Arterial Blood HCO3 27.0H, Arterial Blood Oxygen Saturation 94.1L, Arterial Blood Base Excess 2.9H, Miguelito Test Positive Current Medications Medications (Trade) Dose Ordered Sig/Johnny Route PRN Reason Start Time Stop Time Status Last Admin Dose Admin Acetaminophen (Tylenol) 650 mg Q6H PRN NG Temp >100.5 01/09/21 09:15 02/08/21 09:14 01/14/21 21:28 Acetaminophen (Tylenol) 650 mg Q6H PRN NG Mild Pain (Pain Scale 1-3) 01/09/21 09:15 02/08/21 09:14 Albuterol Sulfate (Proventil MDI) 2 puff Q6HRT INH 01/02/21 19:00 04/02/21 18:59 01/15/21 13:15 Benztropine Mesylate (Cogentin) 1 mg EVERY 12 HOURS NG 01/09/21 09:15 02/01/21 09:14 01/15/21 08:26 Chlorhexidine Gluconate (Myranda-Hex 2%) 1 applic DAILY@2000 TOPIC 01/12/21 20:00 04/12/21 19:59 01/14/21 20:00 Dextrose (Dextrose 50%) 25 ml Q30M PRN IV Hypoglycemia 01/06/21 23:45 04/06/21 23:44 Dextrose (Dextrose 50%) 50 ml Q30M PRN IV Hypoglycemia 01/06/21 23:45 04/06/21 23:44 Divalproex Sodium (Depakote Sprinkles) 500 mg Q12HR GT 01/13/21 21:00 02/12/21 20:59 01/15/21 08:26 Fentanyl Citrate 250 ml @ 1 mls/hr Q24H IV 01/13/21 20:00 01/15/21 19:59 01/14/21 03:33 Insulin Aspart (NovoLOG) EVERY 6 HOURS SUBQ 01/09/21 12:00 04/04/21 16:29 01/15/21 13:34 Ipratropium Krum (Atrovent Inh) 1 puffs Q6HRT INH 01/02/21 19:00 02/01/21 18:59 01/15/21 13:15 Lansoprazole (Prevacid) 30 mg DAILY GT 01/16/21 09:00 02/15/21 08:59 Methylprednisolone Sodium Succinate (Solu-MEDROL) 40 mg EVERY 12 HOURS IVP 01/02/21 09:00 04/02/21 08:59 01/15/21 08:27 Midazolam HCl 200 ml @ 0 mls/hr Q24H PRN IV Agitation 01/14/21 02:30 01/16/21 02:29 01/15/21 01:36 Ondansetron HCl (Zofran) 4 mg Q4H PRN IVP Nausea & Vomiting 01/02/21 08:15 02/01/21 08:14 Piperacillin Sod/ Tazobactam Sod 3.375 gm/Sodium Chloride 110 ml @ 27.5 mls/hr EVERY 8 HOURS IVPB 01/13/21 14:00 01/20/21 13:59 01/15/21 13:21 Sodium Chloride 1,000 ml @ 75 mls/hr [id number] IV 01/08/21 11:00 02/07/21 10:59 01/14/21 13:22 Warfarin Sodium (Coumadin per pharmacy) 1 ea DAILY PRN MISC Per rx protocol 01/02/21 08:30 02/01/21 08:29 Warfarin Sodium (Warfarin Sod) 2 mg COUMADIN ORAL 01/15/21 17:00 01/15/21 19:00 Assessment/Plan Assessment/Plan Pulmonary CCM Progress Note HPI Patient is a 60 man with prior h/o COPD, CPS/bipolar DO, 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 ID following and started on CTx/Azithro + REM + SM 40 IV BID, CXR with bilateral infiltrates,ETT appropriate. 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, NHR, DM2, HTN and hydrocephalus Physical Exam Deferred Covid19 Vital Signs noted Laboratory Tests noted Imaging noted Height (Feet): 5 Height (Inches): 5.00 Weight (Pounds): 233 Medications Medications noted Assessment/Plan Problem List: (1) Pneumonia due to COVID-19 virus ICD Codes: U07.1 - COVID-19; J12.82 - Pneumonia due to coronavirus disease 2019 SNOMED: 675889116321531913 (2) Acute hypercapnic respiratory failure ICD Codes: J96.02 - Acute respiratory failure with hypercapnia SNOMED: 424435675 (3) Respiratory failure with hypoxia ICD Codes: J96.91 - Respiratory failure, unspecified with hypoxia SNOMED: 22604100265449501 Qualifiers: Qualified Codes: J96.01 - Acute respiratory failure with hypoxia (4) COPD (chronic obstructive pulmonary disease) ICD Codes: J44.9 - Chronic obstructive pulmonary disease, unspecified SNOMED: 62933081 (5) History of deep venous thrombosis or pulmonary embolus SNOMED: 665894012 (6) Obesity ICD Codes: E66.9 - Obesity, unspecified SNOMED: 359032662, 826304220 (7) Essential hypertension ICD Codes: I10 - Essential (primary) hypertension SNOMED: 84122293 (8) Diabetes mellitus type 2 in obese ICD Codes: E11.69 - Type 2 diabetes mellitus with other specified complication; E66.9 - Obesity, unspecified SNOMED: 30640246 (9) History of hydrocephalus ICD Codes: Z86.69 - Personal history of other diseases of the nervous system and sense organs SNOMED: 842198288 (10) Schizophrenia ICD Codes: F20.9 - Schizophrenia, unspecified SNOMED: 63687149 (11) Bipolar 1 disorder ICD Codes: F31.9 - Bipolar disorder, unspecified SNOMED: 059947603 (12) Anticoagulant long-term use ICD Codes: Z79.01 - oil heaterman (current) use of anticoagulants SNOMED: 685359748 Assessment/Plan: ACVC - adjust PRN Prone as tolerated per protocol - reduce proning timegiven improvement Adjust FiO2 to keep SaO2 > 92% Reduce PEEP as tolerated Wean as tolerated once PEEP 5 Sedation PRN HFA's F/U inflammatory markers and covid labs ID recs REM/SM per ID Abx per ID F/U Cx's Monitor volumes and renal function DVT Px: Coumadin TF when not proned FC Anuel Luis MD Jan 15, 2021 16:11
[2021-01-15] MEDS ORDERED: Warfarin Sodium 1mg ORAL SCH (17:00)
--- NOTE | 2021-01-15 17:16 | Surgery Progress Note ---
Surgery Progress Note Subjective Additional Comments ill appearing on support no n/v labs noted exam unchanged cont weaning Objective Last 24 Hour Vital Signs Date Time Temp Pulse Resp B/P (MAP) Pulse Ox O2 Delivery O2 Flow Rate FiO2 01/15/21 17:00 99.2 88 22 116/72 (87) 97 01/15/21 16:30 100 23 149/85 (106) 98 01/15/21 16:16 50 01/15/21 16:00 Mechanical Ventilator 01/15/21 16:00 100 01/15/21 16:00 22 139/87 Mechanical Ventilator 50 01/15/21 16:00 22 139/87 Mechanical Ventilator 50 01/15/21 16:00 97 22 124/80 (95) 98 01/15/21 16:00 50 01/15/21 15:30 98 24 124/84 (97) 96 01/15/21 15:00 96 22 128/83 (98) 96 01/15/21 15:00 22 128/83 Mechanical Ventilator 40 01/15/21 15:00 22 128/83 Mechanical Ventilator 40 01/15/21 14:45 22 123/83 Mechanical Ventilator 40 01/15/21 14:30 22 129/84 Mechanical Ventilator 40 01/15/21 14:15 22 129/84 Mechanical Ventilator 40 01/15/21 14:00 22 129/84 Mechanical Ventilator 40 01/15/21 14:00 22 129/84 Mechanical Ventilator 40 01/15/21 14:00 87 22 129/84 (99) 96 01/15/21 13:00 94 22 121/81 (94) 97 01/15/21 13:00 22 121/81 Mechanical Ventilator 40 01/15/21 13:00 22 121/81 Mechanical Ventilator 40 01/15/21 13:00 96 24 40 01/15/21 12:30 81 22 124/85 (98) 95 01/15/21 12:00 Mechanical Ventilator 01/15/21 12:00 99.0 80 22 115/72 (86) 96 01/15/21 12:00 22 124/85 Mechanical Ventilator 40 01/15/21 12:00 22 124/85 Mechanical Ventilator 40 01/15/21 12:00 40 01/15/21 12:00 81 01/15/21 11:00 22 112/73 Mechanical Ventilator 40 01/15/21 11:00 22 112/73 Mechanical Ventilator 40 01/15/21 11:00 99.0 66 22 126/88 (101) 95 01/15/21 10:00 81 22 121/81 (94) 96 01/15/21 10:00 22 122/84 Mechanical Ventilator 40 01/15/21 10:00 22 122/84 Mechanical Ventilator 40 01/15/21 09:00 22 114/82 Mechanical Ventilator 40 01/15/21 09:00 22 114/82 Mechanical Ventilator 40 01/15/21 09:00 100 18 121/70 (87) 94 01/15/21 08:30 92 22 100/62 (75) 93 01/15/21 08:00 40 01/15/21 08:00 100.1 92 22 97/72 (80) 95 01/15/21 08:00 22 100/62 Mechanical Ventilator 40 01/15/21 08:00 22 100/62 Mechanical Ventilator 40 01/15/21 08:00 109 01/15/21 08:00 Mechanical Ventilator 01/15/21 07:30 76 22 106/76 (86) 94 01/15/21 07:10 98 24 40 01/15/21 07:00 73 22 105/74 (84) 94 01/15/21 07:00 22 106/76 Mechanical Ventilator 40 01/15/21 07:00 22 106/76 Mechanical Ventilator 40 01/15/21 06:00 74 22 109/75 (86) 96 01/15/21 05:33 22 125/73 Mechanical Ventilator 40 01/15/21 05:33 22 119/70 Mechanical Ventilator 40 01/15/21 05:30 76 20 130/87 (101) 96 01/15/21 05:00 69 22 116/87 (97) 94 01/15/21 04:33 22 109/69 Mechanical Ventilator 40 01/15/21 04:33 22 123/75 Mechanical Ventilator 40 01/15/21 04:30 71 22 108/79 (89) 94 01/15/21 04:00 Mechanical Ventilator 01/15/21 04:00 40 01/15/21 04:00 99.4 81 22 107/71 (83) 94 01/15/21 04:00 80 01/15/21 03:41 88 22 40 01/15/21 03:33 22 107/71 Mechanical Ventilator 40 01/15/21 03:33 22 107/67 Mechanical Ventilator 40 01/15/21 03:30 88 18 120/79 (93) 93 01/15/21 03:00 83 20 107/87 (94) 94 01/15/21 02:33 22 106/70 Mechanical Ventilator 40 01/15/21 02:33 22 98/59 40 01/15/21 02:30 92 22 103/66 (78) 94 01/15/21 01:36 22 112/63 Mechanical Ventilator 40 01/15/21 01:33 22 123/69 Mechanical Ventilator 40 01/15/21 01:33 22 103/55 Mechanical Ventilator 40 01/15/21 01:30 74 99/70 (80) 96 01/15/21 01:00 84 21 109/76 (87) 95 01/15/21 00:38 99 22 40 01/15/21 00:33 22 110/65 Mechanical Ventilator 45 01/15/21 00:33 22 110/65 Mechanical Ventilator 45 01/15/21 00:30 101 19 112/71 (85) 98 01/15/21 00:00 45 01/15/21 00:00 Mechanical Ventilator 01/15/21 00:00 103 01/15/21 00:00 100.6 100 21 128/84 (99) 94 01/14/21 23:33 22 125/62 Mechanical Ventilator 45 01/14/21 23:33 22 125/69 Mechanical Ventilator 45 01/14/21 23:30 97 20 122/75 (91) 96 01/14/21 23:27 97 22 45 01/14/21 23:00 85 16 118/70 (86) 94 01/14/21 22:33 22 110/63 Mechanical Ventilator 45 01/14/21 22:33 22 110/65 Mechanical Ventilator 45 01/14/21 22:30 74 19 123/80 (94) 94 01/14/21 22:00 78 19 110/74 (86) 94 01/14/21 21:58 100.2 01/14/21 21:33 18 101/63 Mechanical Ventilator 45 01/14/21 21:33 20 101/63 Mechanical Ventilator 45 01/14/21 21:30 89 21 101/63 (76) 94 01/14/21 21:00 100.6 103 23 103/60 (74) 92 01/14/21 20:33 18 102/60 Mechanical Ventilator 45 01/14/21 20:33 18 102/60 Mechanical Ventilator 45 01/14/21 20:30 99 21 104/67 (79) 93 01/14/21 20:00 45 01/14/21 20:00 97 22 115/74 (88) 93 01/14/21 20:00 92 01/14/21 20:00 Mechanical Ventilator 01/14/21 19:39 84 22 45 01/14/21 19:33 28 109/53 Mechanical Ventilator 50 01/14/21 19:33 28 109/53 Mechanical Ventilator 50 01/14/21 19:30 75 22 108/76 (87) 95 01/14/21 19:00 76 22 110/74 (86) 95 01/14/21 18:33 22 113/72 Mechanical Ventilator 50 01/14/21 18:33 22 113/72 Mechanical Ventilator 50 01/14/21 18:00 103 29 113/72 (86) 95 01/14/21 17:50 95 22 50 01/14/21 17:33 22 147/79 Mechanical Ventilator 50 01/14/21 17:33 22 147/79 Mechanical Ventilator 50 I&O Intake and Output 01/14/21 01/15/21 19:00 07:00 Intake Total 1156.5 ml 731.47 ml Output Total 1300 ml 925 ml Balance -143.5 ml -193.53 ml Free Water 75 ml IV Total 1096.5 ml 296.47 ml Tube Feeding 60 ml 360 ml Output Urine Total 1300 ml 925 ml Dressing: saturated Cardiovascular: RSR Respiratory: decreased breath sounds Abdomen: soft, non-tender, present bowel sounds, non-distended Extremities: edema, no tenderness, no cyanosis Laboratory Tests Test 01/15/21 02:55 01/15/21 08:56 White Blood Count 11.5 K/UL (4.8-10.8) H Red Blood Count 4.62 M/UL (4.70-6.10) L Hemoglobin 13.3 G/DL (14.2-18.0) L Hematocrit 42.5 % (42.0-52.0) Mean Corpuscular Volume 92 FL (80-99) Mean Corpuscular Hemoglobin 28.7 PG (27.0-31.0) Mean Corpuscular Hemoglobin Concent 31.2 G/DL (32.0-36.0) L Red Cell Distribution Width 13.7 % (11.6-14.8) Platelet Count 195 K/UL (150-450) Mean Platelet Volume 10.1 FL (6.5-10.1) Neutrophils (%) (Auto) % (45.0-75.0) Lymphocytes (%) (Auto) % (20.0-45.0) Monocytes (%) (Auto) % (1.0-10.0) Eosinophils (%) (Auto) % (0.0-3.0) Basophils (%) (Auto) % (0.0-2.0) Differential Total Cells Counted 100 Neutrophils % (Manual) 82 % (45-75) H Lymphocytes % (Manual) 14 % (20-45) L Monocytes % (Manual) 4 % (1-10) Eosinophils % (Manual) 0 % (0-3) Basophils % (Manual) 0 % (0-2) Band Neutrophils 0 % (0-8) Platelet Estimate Adequate Platelet Morphology Normal Red Blood Cell Morphology Normal Prothrombin Time 22.4 SEC (9.30-11.50) H Prothromb Time International Ratio 2.2 (0.9-1.1) H Sodium Level 145 MMOL/L (136-145) Potassium Level 4.5 MMOL/L (3.5-5.1) Chloride Level 110 MMOL/L (98-107) H Carbon Dioxide Level 27 MMOL/L (21-32) Anion Gap 8 mmol/L (5-15) Blood Urea Nitrogen 23 mg/dL (7-18) H Creatinine 0.9 MG/DL (0.55-1.30) Estimat Glomerular Filtration Rate > 60 mL/min (>60) Glucose Level 297 MG/DL (74-106) H Calcium Level 8.9 MG/DL (8.5-10.1) Arterial Blood pH 7.453 (7.350-7.450) Arterial Blood Partial Pressure CO2 39.4 mmHg (35.0-45.0) Arterial Blood Partial Pressure O2 73.8 mmHg (75.0-100.0) L Arterial Blood HCO3 27.0 mmol/L (22.0-26.0) H Arterial Blood Oxygen Saturation 94.1 % (95-100) L Arterial Blood Base Excess 2.9 (-2-2) H Miguelito Test Positive Plan Problems: (1) COPD (chronic obstructive pulmonary disease) (2) Essential hypertension (3) Schizophrenia (4) Obesity (5) Diabetes mellitus type 2 in obese (6) History of hydrocephalus (7) Anticoagulant long-term use (8) Bipolar 1 disorder (9) History of deep venous thrombosis or pulmonary embolus (10) Acute hypercapnic respiratory failure (11) Sepsis Assessment & Plan: 60-year-old male Covid positive respiratory insufficiency and severe decline being prone intubated on vent support labs noted septic ill- appearing has been developing wound around the face from ET tube.Receiv ed report from RT pt is being proned and was observed to have developed a blood blister under vent tape on L cheek and L earlobe. Skin assessed and pt was observed to have a blood blister that is 50% de-capped,50% intact. Intact Blood Blister noted to L earlobe. Skin Barrier applied to affected areas. Optifoam Thin foam placed between vent anchor and pt's skin. Optifoam thin placed to R cheek under Vent tape, on Bridge of nose and both earlobes. Given patient's critical status current care plan and findings nutritional optimization is strongly encouraged Covid nutrition plan initiated. All Covid precautions are being taken. Imaging reviewed. Will follow with care plan. Thank you [facility] participation care Tx.Plan: Maintain Optifoam Thin foam to R and L cheeks,Bridge of Nose and Both Ears . Change every 7 days and prn.( May request Optifoam Thin from RT dept). APM/PEPE Mattress overlay DAILY ESTIMATED NEEDS: Needs based on Critical care, pulmonary, obese 73.7kg abw 22-28 kcals/kg 9320-9919 total kcals 1.2-2 g protein/kg 88-147 g total protein 25-30 mL/kg 8303-0692 total fluid mLs NUTRITION DIAGNOSIS: Altered nutrition related lab values r/t steroidal meds, clinical status as evidenced by febrile on adm (102.5), elevated BG (270 287) on solumedrol, elevated lipid panel (Triglycerides 333, Chol 370, LDL 150). CURRENT TF:Vital @30ml/hr, now Nepro @30 ENTERAL NUTRITION RECOMMENDATIONS: NEPRO @30ml/hr while supine to provide x8 hrs feeds: 360ml, 648 kcal, 29g pro, 262ml free H2O - Feed at rate best tolerated, currently not meeting est needs d/t proning and aspiration risk w/ supine feeds limited to 8hrs/day. - W/ reduced aspiration risk rec feedings to total Volume of 900ml/day of Nepro as medically able. - Monitor tolerance, position/HOB >30 degrees, hemodynamic stability and ability to increase to meet est kcal and pro needs. - With increase pressor support, rec trophic feeds of 10ml/hr for gut integrity. - When tolerating TF at goal add Prosource BID to better meet est pro needs. ADDITIONAL RECOMMENDATIONS: 1) Now intubated, TF recs above when off proning (8hrs feeds) 2) Obtain calibrated bedscale wts 3) HgA1C/ elevated BG Need for niss while on D5 4) Lytes daily; replete as needed 5) Monitor triglycerides, TF tolerance, hemodynamic stability. (12) Respiratory failure with hypoxia (13) Pneumonia due to COVID-19 virus (14) Hyperkalemia (15) DMII (diabetes mellitus, type 2) Ki Strong Jan 15, 2021 17:16
[2021-01-15] MEDS ORDERED: fentaNYL Citrate 1,000 MCG in NS 100 ML IV SCH (18:00)
--- NOTE | 2021-01-15 18:42 | Internal Med Progress Note ---
Subjective Date of Service: Jan 15, 2021 Physician Name Vickey Brown Attending Physician Geovanny Bradley MD Current Medications Medications (Trade) Dose Ordered Sig/Johnny Route PRN Reason Start Time Stop Time Status Last Admin Dose Admin Acetaminophen (Tylenol) 650 mg Q6H PRN NG Temp >100.5 01/09/21 09:15 02/08/21 09:14 01/14/21 21:28 Acetaminophen (Tylenol) 650 mg Q6H PRN NG Mild Pain (Pain Scale 1-3) 01/09/21 09:15 02/08/21 09:14 Albuterol Sulfate (Proventil I) 2 puff Q6HRT INH 01/02/21 19:00 04/02/21 18:59 01/15/21 13:15 Benztropine Mesylate (Cogentin) 1 mg EVERY 12 HOURS NG 01/09/21 09:15 02/01/21 09:14 01/15/21 08:26 Chlorhexidine Gluconate (Myranda-Hex 2%) 1 applic DAILY@2000 TOPIC 01/12/21 20:00 04/12/21 19:59 01/14/21 20:00 Dextrose (Dextrose 50%) 25 ml Q30M PRN IV Hypoglycemia 01/06/21 23:45 04/06/21 23:44 Dextrose (Dextrose 50%) 50 ml Q30M PRN IV Hypoglycemia 01/06/21 23:45 04/06/21 23:44 Divalproex Sodium (Depakote Sprinkles) 500 mg Q12HR GT 01/13/21 21:00 02/12/21 20:59 01/15/21 08:26 Fentanyl Citrate 1000 mcg/Sodium Chloride 120 ml @ 1.2 mls/hr Q24H IV 01/15/21 18:00 01/17/21 17:59 01/15/21 18:20 Insulin Aspart (NovoLOG) EVERY 6 HOURS SUBQ 01/09/21 12:00 04/04/21 16:29 01/15/21 17:09 Ipratropium [place] (Atrovent Inh) 1 puffs Q6HRT INH 01/02/21 19:00 02/01/21 18:59 01/15/21 13:15 Lansoprazole (Prevacid) 30 mg DAILY GT 01/16/21 09:00 02/15/21 08:59 Methylprednisolone Sodium Succinate (Solu-MEDROL) 40 mg EVERY 12 HOURS IVP 01/02/21 09:00 04/02/21 08:59 01/15/21 08:27 Midazolam HCl 200 ml @ 0 mls/hr Q24H PRN IV Agitation 01/14/21 02:30 01/16/21 02:29 01/15/21 18:00 Ondansetron HCl (Zofran) 4 mg Q4H PRN IVP Nausea & Vomiting 01/02/21 08:15 02/01/21 08:14 Piperacillin Sod/ Tazobactam Sod 3.375 gm/Sodium Chloride 110 ml @ 27.5 mls/hr EVERY 8 HOURS IVPB 01/13/21 14:00 01/20/21 13:59 01/15/21 13:21 Sodium Chloride 1,000 ml @ 75 mls/hr [id number] IV 01/08/21 11:00 02/07/21 10:59 01/14/21 13:22 Warfarin Sodium (Coumadin per pharmacy) 1 ea DAILY PRN MISC Per rx protocol 01/02/21 08:30 02/01/21 08:29 Warfarin Sodium (Warfarin Sod) 2 mg COUMADIN ORAL 01/15/21 17:00 01/15/21 19:00 01/15/21 16:28 Allergies: Coded Allergies: No Known Allergies (Unverified , 01/02/21) ROS Limited/Unobtainable: Yes Subjective 60 YO M admitted with shortness of breath. Now respiratory failure. Cover for Int Rohit-DR Bradley. ICU. Intubated and sedated Objective Last Vital Signs Date Time Temp Pulse Resp B/P (MAP) Pulse Ox O2 Delivery O2 Flow Rate FiO2 01/15/21 18:20 23 108/74 Mechanical Ventilator 50 01/15/21 17:00 99.2 88 97 01/14/21 03:33 15.0 Laboratory Tests Test 01/15/21 02:55 01/15/21 08:56 White Blood Count 11.5 K/UL (4.8-10.8) H Red Blood Count 4.62 M/UL (4.70-6.10) L Hemoglobin 13.3 G/DL (14.2-18.0) L Hematocrit 42.5 % (42.0-52.0) Mean Corpuscular Volume 92 FL (80-99) Mean Corpuscular Hemoglobin 28.7 PG (27.0-31.0) Mean Corpuscular Hemoglobin Concent 31.2 G/DL (32.0-36.0) L Red Cell Distribution Width 13.7 % (11.6-14.8) Platelet Count 195 K/UL (150-450) Mean Platelet Volume 10.1 FL (6.5-10.1) Neutrophils (%) (Auto) % (45.0-75.0) Lymphocytes (%) (Auto) % (20.0-45.0) Monocytes (%) (Auto) % (1.0-10.0) Eosinophils (%) (Auto) % (0.0-3.0) Basophils (%) (Auto) % (0.0-2.0) Differential Total Cells Counted 100 Neutrophils % (Manual) 82 % (45-75) H Lymphocytes % (Manual) 14 % (20-45) L Monocytes % (Manual) 4 % (1-10) Eosinophils % (Manual) 0 % (0-3) Basophils % (Manual) 0 % (0-2) Band Neutrophils 0 % (0-8) Platelet Estimate Adequate Platelet Morphology Normal Red Blood Cell Morphology Normal Prothrombin Time 22.4 SEC (9.30-11.50) H Prothromb Time International Ratio 2.2 (0.9-1.1) H Sodium Level 145 MMOL/L (136-145) Potassium Level 4.5 MMOL/L (3.5-5.1) Chloride Level 110 MMOL/L (98-107) H Carbon Dioxide Level 27 MMOL/L (21-32) Anion Gap 8 mmol/L (5-15) Blood Urea Nitrogen 23 mg/dL (7-18) H Creatinine 0.9 MG/DL (0.55-1.30) Estimat Glomerular Filtration Rate > 60 mL/min (>60) Glucose Level 297 MG/DL (74-106) H Calcium Level 8.9 MG/DL (8.5-10.1) Arterial Blood pH 7.453 (7.350-7.450) Arterial Blood Partial Pressure CO2 39.4 mmHg (35.0-45.0) Arterial Blood Partial Pressure O2 73.8 mmHg (75.0-100.0) L Arterial Blood HCO3 27.0 mmol/L (22.0-26.0) H Arterial Blood Oxygen Saturation 94.1 % (95-100) L Arterial Blood Base Excess 2.9 (-2-2) H Miguelito Test Positive Microbiology Date/Time Source Procedure Growth Status 01/13/21 10:51 Blood Blood Culture - Preliminary NO GROWTH AFTER 24 HOURS Resulted Intake and Output 01/14/21 01/15/21 19:00 07:00 Intake Total 1156.5 ml 731.47 ml Output Total 1300 ml 925 ml Balance -143.5 ml -193.53 ml Free Water 75 ml IV Total 1096.5 ml 296.47 ml Tube Feeding 60 ml 360 ml Output Urine Total 1300 ml 925 ml Objective Objective General: awake, responsive , confused. HEENT: NCAT, sclera anicteric, PERRL, EOMI. Neck: Supple, no significant jugular venous distention, Lungs: mech vent; decreased air at the bases, occasional crackles, no Wheeze. Heart: Regular rate and rhythm, normal S1/S2, no murmurs Abdomen: soft, nontender, nondistended. Normoactive bowel sound, obesity. / Rectal: Refused and deferred. Extremities: Left LE: No Cyanosis , clubbing or edema. Right LE AKA. Neuro: A&O x 2, Able to move all extremities Skin: warm, no rashes or lesions. Assessment/Plan Assessment/Plan Assessment/Plan Assessment/Plan (1) Pneumonia due to COVID-19 virus ICD Codes: U07.1 - COVID-19; J12.82 - Pneumonia due to coronavirus disease 2018 SNOMED: 851078581772794678 (2) Acute hypercapnic respiratory failure ICD Codes: J96.02 - Acute respiratory failure with hypercapnia SNOMED: 359115625 (3) Respiratory failure with hypoxia ICD Codes: J96.91 - Respiratory failure, unspecified with hypoxia SNOMED: 37885794002323392 Qualifiers: Qualified Codes: J96.01 - Acute respiratory failure with hypoxia (4) COPD (chronic obstructive pulmonary disease) ICD Codes: J44.9 - Chronic obstructive pulmonary disease, unspecified SNOMED: 89506061 (5) History of deep venous thrombosis or pulmonary embolus SNOMED: 136262144 (6) Obesity ICD Codes: E66.9 - Obesity, unspecified SNOMED: 348038176, 144391531 (7) Essential hypertension ICD Codes: I10 - Essential (primary) hypertension SNOMED: 10862332 (8) Diabetes mellitus type 2 in obese ICD Codes: E11.69 - Type 2 diabetes mellitus with other specified complication; E66.9 - Obesity, unspecified SNOMED: 03032653 (9) History of hydrocephalus ICD Codes: Z86.69 - Personal history of other diseases of the nervous system and sense organs SNOMED: 940577823 (10) Schizophrenia ICD Codes: F20.9 - Schizophrenia, unspecified SNOMED: 71163207 (11) Bipolar 1 disorder ICD Codes: F31.9 - Bipolar disorder, unspecified SNOMED: 025647356 (12) Anticoagulant long-term use ICD Codes: Z79.01 - [facility] (current) use of anticoagulants SNOMED: 519979205 13. Sepsis=gram pos cocci Assessment/Plan: Optimize pulmonary hygiene/mobilize as tolerated Non Rebreather mask>BIPAP>intubated On Remdesivir IV Solu-Medrol 40 mg IV twice a day. Abx =zosyn and S/P vanco F/U Cx's Monitor volumes and renal function DVT Px: Coumadin DC IV fluid Start diet Monitor blood glucose level closely. On levophed, fentanyl and propofol drips Pulmonary=Dr Luis ID=Vickey Mtz MD Jan 15, 2021 18:42
[2021-01-15] MEDS: Dyna-Hex 2% Top Sol 2oz TOPIC SCH (20:27)
[2021-01-16] VITALS (32 sets, daily range): BP systolic 86–133; BP diastolic 47–86
[2021-01-16] MEDS: Albuterol 90mcg Inhaler 8gm INH SCH ×4 (00:22→19:26)
[2021-01-16] MEDS: Ipratropium Bromide Inhaler INH SCH ×4 (00:22→19:26)
[2021-01-16] MEDS: Versed 100mg/NS 200ml 200 ML IV PRN ×3 (03:00→14:30)
[2021-01-16] MEDS ORDERED: Versed 100mg/NS 200ml 200 ML IV PRN (03:00)
[2021-01-16 05:30] LABS: HEMATOCRIT 40.3 % (42.0-52.0); HEMOGLOBIN 12.5 G/DL (14.2-18.0); MEAN CORPUSCULAR VOLUME 93 FL (80-99); PLATELET COUNT 217 K/UL (150-450); RED BLOOD COUNT 4.36 M/UL (4.70-6.10); RED CELL DISTRIBUTION WIDTH 14.1 % (11.6-14.8); WHITE BLOOD COUNT 9.3 K/UL (4.8-10.8)
[2021-01-16 05:50] LABS: INR 1.8 (0.9-1.1)
[2021-01-16 05:58] LABS: ANION GAP 7 mmol/L (5-15); BLOOD UREA NITROGEN 20 mg/dL (7-18); CALCIUM 8.3 MG/DL (8.5-10.1); CARBON DIOXIDE 28 MMOL/L (21-32); CHLORIDE 112 MMOL/L (98-107); POTASSIUM 4.3 MMOL/L (3.5-5.1); SODIUM 146 MMOL/L (136-145)
[2021-01-16] MEDS: fentaNYL 2500mcg/NS 250ml 250 ML IV SCH ×2 (06:00→13:59)
[2021-01-16] MEDS: NovoLOG Insulin Flexpen SUBQ SCH ×4 (06:00→18:10)
[2021-01-16] MEDS: Piperacillin/Tazobactam 3.375 GM in NS 110 ML IVPB SCH ×3 (06:00→20:59)
[2021-01-16] MEDS: Depakote 125mg Sprinkles GT SCH ×2 (08:07→20:59)
[2021-01-16] MEDS: Solu-MEDROL 40mg Inj IVP SCH ×2 (08:07→20:59)
[2021-01-16] MEDS: Lansoprazole 15mg cap GT SCH (08:07)
[2021-01-16] MEDS: Benztropine 1mg tab NG SCH ×2 (08:07→20:59)
--- NOTE | 2021-01-16 08:37 | Infectious Diseases Prog Note ---
Assessment/Plan 60yo M with: Staph epi bacteremia, m/l skin contaminant 01/10 BCx 1/2 +Staph epi 01/13 BCx NTD COVID pna, severe Acute hypoxia 2/2 COVID pna >> intubated 01/06 Febrile to 103 Normal WBC Elevated AST 51 2/2 Tested positive for COVID at [facility] 2/ COVID PCR positive / BCx NTD CXR: Multifocal pna MRSA nares neg / Intubated in ICU CXR: 1. Appropriately positioned endotracheal and enteric tubes. 2. Stable bilateral airspace disease. 01/07 Resp cx +Yasmine albicans (colonizer) 01/11 CXR: Interval improved bilateral lung aeration. Bibasilar infiltrates/atelectasis. Cr 1.1 HIV screen neg PMH: DM2 COPD HTN SNF resident Plan: Cont Zosyn #8/ given critical illness On steroids #13/09, on methylpred 40 IV q12 - defer course to Pulm/Primary, consider stopping given s/p 10 day course wo clear improvement 01/14 SP vanco IV #1 01/09 SP CTX #7 01/07 SP azithro #5, RDV #5 This institution does not have access to convalescent plasma and only recommended to give in setting of clinical trial Monitor CBC/CMP Monitor temp curve, hemodynamics Monitor resp status D/w RN Thank you for this consult. [facility] will continue to follow. Subjective Allergies: Coded Allergies: No Known Allergies (Unverified , 01/02/21) AF Sedated on vent 40% PEEP 5 WBC improving to 9 Proned Objective Last 24 Hour Vital Signs Date Time Temp Pulse Resp B/P (MAP) Pulse Ox O2 Delivery O2 Flow Rate FiO2 01/16/21 08:30 77 22 107/72 (84) 99 01/16/21 08:00 100.0 77 22 110/76 (87) 99 01/16/21 08:00 60 01/16/21 08:00 Mechanical Ventilator 01/16/21 07:00 76 22 109/74 (86) 99 01/16/21 07:00 22 109/74 Mechanical Ventilator 60 01/16/21 07:00 22 109/74 Mechanical Ventilator 60 01/16/21 07:00 76 22 109/74 (86) 99 01/16/21 06:00 99.2 76 22 106/71 (83) 99 01/16/21 06:00 22 106/71 60 01/16/21 06:00 22 106/71 Mechanical Ventilator 60 01/16/21 05:00 22 104/71 60 01/16/21 05:00 79 22 104/71 (82) 99 01/16/21 04:00 81 22 103/69 (80) 98 01/16/21 04:00 60 01/16/21 04:00 22 103/69 Mechanical Ventilator 60 01/16/21 04:00 22 103/69 Mechanical Ventilator 65 01/16/21 04:00 22 103/69 Mechanical Ventilator 65 01/16/21 04:00 81 01/16/21 04:00 Mechanical Ventilator 01/16/21 03:41 80 22 60 01/16/21 03:00 22 101/69 Mechanical Ventilator 60 01/16/21 03:00 22 103/70 Mechanical Ventilator 60 01/16/21 03:00 22 103/70 01/16/21 03:00 89 22 101/69 (80) 98 01/16/21 02:00 22 133/84 Mechanical Ventilator 22 01/16/21 02:00 97 22 133/84 (100) 94 01/16/21 01:00 22 130/85 Mechanical Ventilator 65 01/16/21 01:00 78 22 130/85 (100) 91 01/16/21 00:00 60 01/16/21 00:00 Mechanical Ventilator 01/16/21 00:00 99.0 91 21 133/86 (102) 89 01/16/21 00:00 21 133/86 Mechanical Ventilator 65 01/16/21 00:00 91 01/15/21 23:09 87 22 50 01/15/21 23:00 92 21 122/83 (96) 90 01/15/21 23:00 21 122/83 Mechanical Ventilator 65 01/15/21 22:00 101 22 121/71 (88) 92 01/15/21 22:00 22 121/71 Mechanical Ventilator 65 01/15/21 21:00 79 22 110/70 (83) 92 01/15/21 21:00 22 110/70 Mechanical Ventilator 65 01/15/21 20:00 99.0 78 22 114/77 (89) 90 01/15/21 20:00 78 01/15/21 20:00 22 114/77 Mechanical Ventilator 65 01/15/21 20:00 Mechanical Ventilator 01/15/21 20:00 50 01/15/21 19:12 74 22 50 01/15/21 19:00 72 22 111/76 (88) 97 01/15/21 19:00 22 111/76 Mechanical Ventilator 50 01/15/21 19:00 22 111/76 Mechanical Ventilator 50 01/15/21 18:20 23 108/74 Mechanical Ventilator 50 01/15/21 18:00 22 111/76 Mechanical Ventilator 50 01/15/21 18:00 72 22 111/75 (87) 96 01/15/21 17:00 22 149/85 Mechanical Ventilator 50 01/15/21 17:00 22 149/85 Mechanical Ventilator 50 01/15/21 17:00 99.2 88 22 116/72 (87) 97 01/15/21 16:30 100 23 149/85 (106) 98 01/15/21 16:16 50 01/15/21 16:00 Mechanical Ventilator 01/15/21 16:00 100 01/15/21 16:00 22 139/87 Mechanical Ventilator 50 01/15/21 16:00 22 139/87 Mechanical Ventilator 50 01/15/21 16:00 97 22 124/80 (95) 98 01/15/21 16:00 50 01/15/21 15:30 98 24 124/84 (97) 96 01/15/21 15:00 96 22 128/83 (98) 96 01/15/21 15:00 22 128/83 Mechanical Ventilator 40 01/15/21 15:00 22 128/83 Mechanical Ventilator 40 01/15/21 14:45 22 123/83 Mechanical Ventilator 40 01/15/21 14:30 22 129/84 Mechanical Ventilator 40 01/15/21 14:15 22 129/84 Mechanical Ventilator 40 01/15/21 14:00 22 129/84 Mechanical Ventilator 40 01/15/21 14:00 22 129/84 Mechanical Ventilator 40 01/15/21 14:00 87 22 129/84 (99) 96 01/15/21 13:00 94 22 121/81 (94) 97 01/15/21 13:00 22 121/81 Mechanical Ventilator 40 01/15/21 13:00 22 121/81 Mechanical Ventilator 40 01/15/21 13:00 96 24 40 01/15/21 12:30 81 22 124/85 (98) 95 2/16/21 12:00 Mechanical Ventilator 01/15/21 12:00 99.0 80 22 115/72 (86) 96 01/15/21 12:00 22 124/85 Mechanical Ventilator 40 01/15/21 12:00 22 124/85 Mechanical Ventilator 40 01/15/21 12:00 40 01/15/21 12:00 81 01/15/21 11:00 22 112/73 Mechanical Ventilator 40 01/15/21 11:00 22 112/73 Mechanical Ventilator 40 01/15/21 11:00 99.0 66 22 126/88 (101) 95 01/15/21 10:00 81 22 121/81 (94) 96 01/15/21 10:00 22 122/84 Mechanical Ventilator 40 01/15/21 10:00 22 122/84 Mechanical Ventilator 40 01/15/21 09:00 22 114/82 Mechanical Ventilator 40 01/15/21 09:00 22 114/82 Mechanical Ventilator 40 01/15/21 09:00 100 18 121/70 (87) 94 Height (Feet): 5 Height (Inches): 5.00 Weight (Pounds): 233 Gen: NAD HEENT: NCAT, ETT CV: RRR Pulm: BL chest rise, proned Ext: No c/c/e Skin: No visible rashes Neuro: Sedated Microbiology Date/Time Source Procedure Growth Status 01/13/21 10:51 Blood Blood Culture - Preliminary NO GROWTH AFTER 24 HOURS Resulted Laboratory Tests Test 01/15/21 08:56 01/16/21 04:10 Arterial Blood pH 7.453 (7.350-7.450) Arterial Blood Partial Pressure CO2 39.4 mmHg (35.0-45.0) Arterial Blood Partial Pressure O2 73.8 mmHg (75.0-100.0) L Arterial Blood HCO3 27.0 mmol/L (22.0-26.0) H Arterial Blood Oxygen Saturation 94.1 % (95-100) L Arterial Blood Base Excess 2.9 (-2-2) H Miguelito Test Positive White Blood Count 9.3 K/UL (4.8-10.8) Red Blood Count 4.36 M/UL (4.70-6.10) L Hemoglobin 12.5 G/DL (14.2-18.0) L Hematocrit 40.3 % (42.0-52.0) L Mean Corpuscular Volume 93 FL (80-99) Mean Corpuscular Hemoglobin 28.6 PG (27.0-31.0) Mean Corpuscular Hemoglobin Concent 30.9 G/DL (32.0-36.0) L Red Cell Distribution Width 14.1 % (11.6-14.8) Platelet Count 217 K/UL (150-450) Mean Platelet Volume 10.2 FL (6.5-10.1) H Neutrophils (%) (Auto) % (45.0-75.0) Lymphocytes (%) (Auto) % (20.0-45.0) Monocytes (%) (Auto) % (1.0-10.0) Eosinophils (%) (Auto) % (0.0-3.0) Basophils (%) (Auto) % (0.0-2.0) Neutrophils % (Manual) Pending Lymphocytes % (Manual) Pending Platelet Estimate Pending Platelet Morphology Pending Prothrombin Time 18.5 SEC (9.30-11.50) H Prothromb Time International Ratio 1.8 (0.9-1.1) H Sodium Level 146 MMOL/L (136-145) H Potassium Level 4.3 MMOL/L (3.5-5.1) Chloride Level 112 MMOL/L (98-107) H Carbon Dioxide Level 28 MMOL/L (21-32) Anion Gap 7 mmol/L (5-15) Blood Urea Nitrogen 20 mg/dL (7-18) H Creatinine 1.0 MG/DL (0.55-1.30) Estimat Glomerular Filtration Rate > 60 mL/min (>60) Glucose Level 306 MG/DL (74-106) H Calcium Level 8.3 MG/DL (8.5-10.1) L Current Medications Medications (Trade) Dose Ordered Sig/Johnny Route PRN Reason Start Time Stop Time Status Last Admin Dose Admin Acetaminophen (Tylenol) 650 mg Q6H PRN NG Temp >100.5 01/09/21 09:15 3 09:14 01/14/21 21:28 Acetaminophen (Tylenol) 650 mg Q6H PRN NG Mild Pain (Pain Scale 1-3) 01/09/21 09:15 02/08/21 09:14 Albuterol Sulfate (Proventil MDI) 2 puff Q6HRT INH 01/02/21 19:00 04/02/21 18:59 01/16/21 07:00 Benztropine Mesylate (Cogentin) 1 mg EVERY 12 HOURS NG 01/09/21 09:15 02/01/21 09:14 01/16/21 08:07 Chlorhexidine Gluconate (Myranda-Hex 2%) 1 applic DAILY@2000 TOPIC 01/12/21 20:00 04/12/21 19:59 01/15/21 20:27 Dextrose (Dextrose 50%) 25 ml Q30M PRN IV Hypoglycemia 01/06/21 23:45 04/06/21 23:44 Dextrose (Dextrose 50%) 50 ml Q30M PRN IV Hypoglycemia 01/06/21 23:45 04/06/21 23:44 Divalproex Sodium (Depakote Sprinkles) 500 mg Q12HR GT 01/13/21 21:00 02/12/21 20:59 01/16/21 08:07 Fentanyl Citrate 250 ml @ 0 mls/hr Q24H IV 01/16/21 06:00 01/18/21 05:59 01/16/21 06:00 Insulin Aspart (NovoLOG) EVERY 6 HOURS SUBQ 01/09/21 12:00 04/04/21 16:29 01/16/21 06:00 Ipratropium [place] (Atrovent Inh) 1 puffs Q6HRT INH 01/02/21 19:00 02/01/21 18:59 01/16/21 07:00 Lansoprazole (Prevacid) 30 mg DAILY GT 01/16/21 09:00 02/15/21 08:59 01/16/21 08:07 Methylprednisolone Sodium Succinate (Solu-MEDROL) 40 mg EVERY 12 HOURS IVP 01/02/21 09:00 04/02/21 08:59 01/16/21 08:07 Midazolam HCl 200 ml @ 0 mls/hr Q24H PRN IV Agitation (RASS -2) 01/16/21 03:00 01/23/21 02:59 01/16/21 03:00 Ondansetron HCl (Zofran) 4 mg Q4H PRN IVP Nausea & Vomiting 01/02/21 08:15 02/01/21 08:14 Piperacillin Sod/ Tazobactam Sod 3.375 gm/Sodium Chloride 110 ml @ 27.5 mls/hr EVERY 8 HOURS IVPB 01/13/21 14:00 01/20/21 13:59 01/16/21 06:00 Sodium Chloride 1,000 ml @ 75 mls/hr [id number] IV 01/08/21 11:00 02/07/21 10:59 01/16/21 03:00 Warfarin Sodium (Coumadin per pharmacy) 1 ea DAILY PRN MISC Per rx protocol 01/02/21 08:30 02/01/21 08:29 Renetta Gomez M.D. Jan 16, 2021 08:37
--- NOTE | 2021-01-16 12:43 | Surgery Progress Note ---
Surgery Progress Note Subjective Additional Comments ill appearing on vent prone labs noted monitoring closely to ensure safety Objective Last 24 Hour Vital Signs Date Time Temp Pulse Resp B/P (MAP) Pulse Ox O2 Delivery O2 Flow Rate FiO2 01/16/21 12:00 99.2 72 22 126/85 (99) 99 01/16/21 12:00 22 126/85 Mechanical Ventilator 60 01/16/21 12:00 22 126/85 Mechanical Ventilator 60 01/16/21 12:00 Mechanical Ventilator 01/16/21 12:00 60 01/16/21 11:00 22 128/85 Mechanical Ventilator 60 01/16/21 11:00 22 128/85 Mechanical Ventilator 60 01/16/21 11:00 69 22 128/85 (99) 99 01/16/21 10:00 22 127/86 Mechanical Ventilator 60 01/16/21 10:00 22 127/86 Mechanical Ventilator 60 01/16/21 10:00 70 22 127/86 (100) 99 01/16/21 09:00 75 22 114/78 (90) 99 01/16/21 09:00 22 114/78 Mechanical Ventilator 60 01/16/21 09:00 22 114/78 Mechanical Ventilator 60 01/16/21 08:45 22 107/72 Mechanical Ventilator 60 01/16/21 08:30 77 22 107/72 (84) 99 01/16/21 08:00 100.0 77 22 110/76 (87) 99 01/16/21 08:00 22 110/76 Mechanical Ventilator 60 01/16/21 08:00 22 110/76 Mechanical Ventilator 60 01/16/21 08:00 60 01/16/21 08:00 Mechanical Ventilator 01/16/21 07:00 76 22 109/74 (86) 99 01/16/21 07:00 22 109/74 Mechanical Ventilator 60 01/16/21 07:00 22 109/74 Mechanical Ventilator 60 01/16/21 07:00 76 22 109/74 (86) 99 01/16/21 06:00 99.2 76 22 106/71 (83) 99 01/16/21 06:00 22 106/71 60 01/16/21 06:00 22 106/71 Mechanical Ventilator 60 01/16/21 05:00 22 104/71 60 01/16/21 05:00 79 22 104/71 (82) 99 01/16/21 04:00 81 22 103/69 (80) 98 01/16/21 04:00 60 01/16/21 04:00 22 103/69 Mechanical Ventilator 60 01/16/21 04:00 22 103/69 Mechanical Ventilator 65 01/16/21 04:00 22 103/69 Mechanical Ventilator 65 01/16/21 04:00 81 01/16/21 04:00 Mechanical Ventilator 01/16/21 03:41 80 22 60 01/16/21 03:00 22 101/69 Mechanical Ventilator 60 01/16/21 03:00 22 103/70 Mechanical Ventilator 60 01/16/21 03:00 22 103/70 01/16/21 03:00 89 22 101/69 (80) 98 01/16/21 02:00 22 133/84 Mechanical Ventilator 22 01/16/21 02:00 97 22 133/84 (100) 94 01/16/21 01:00 22 130/85 Mechanical Ventilator 65 01/16/21 01:00 78 22 130/85 (100) 91 01/16/21 00:00 60 01/16/21 00:00 Mechanical Ventilator 01/16/21 00:00 99.0 91 21 133/86 (102) 89 01/16/21 00:00 21 133/86 Mechanical Ventilator 65 01/16/21 00:00 91 01/15/21 23:09 87 22 50 01/15/21 23:00 92 21 122/83 (96) 90 01/15/21 23:00 21 122/83 Mechanical Ventilator 65 01/15/21 22:00 101 22 121/71 (88) 92 01/15/21 22:00 22 121/71 Mechanical Ventilator 65 01/15/21 21:00 79 22 110/70 (83) 92 01/15/21 21:00 22 110/70 Mechanical Ventilator 65 01/15/21 20:00 99.0 78 22 114/77 (89) 90 01/15/21 20:00 78 01/15/21 20:00 22 114/77 Mechanical Ventilator 65 01/15/21 20:00 Mechanical Ventilator 01/15/21 20:00 50 01/15/21 19:12 74 22 50 01/15/21 19:00 72 22 111/76 (88) 97 01/15/21 19:00 22 111/76 Mechanical Ventilator 50 01/15/21 19:00 22 111/76 Mechanical Ventilator 50 01/15/21 18:20 23 108/74 Mechanical Ventilator 50 01/15/21 18:00 22 111/76 Mechanical Ventilator 50 01/15/21 18:00 72 22 111/75 (87) 96 01/15/21 17:00 22 149/85 Mechanical Ventilator 50 01/15/21 17:00 22 149/85 Mechanical Ventilator 50 01/15/21 17:00 99.2 88 22 116/72 (87) 97 01/15/21 16:30 100 23 149/85 (106) 98 01/15/21 16:16 50 01/15/21 16:00 Mechanical Ventilator 01/15/21 16:00 100 01/15/21 16:00 22 139/87 Mechanical Ventilator 50 01/15/21 16:00 22 139/87 Mechanical Ventilator 50 01/15/21 16:00 97 22 124/80 (95) 98 01/15/21 16:00 50 01/15/21 15:30 98 24 124/84 (97) 96 01/15/21 15:00 96 22 128/83 (98) 96 01/15/21 15:00 22 128/83 Mechanical Ventilator 40 01/15/21 15:00 22 128/83 Mechanical Ventilator 40 01/15/21 14:45 22 123/83 Mechanical Ventilator 40 01/15/21 14:30 22 129/84 Mechanical Ventilator 40 01/15/21 14:15 22 129/84 Mechanical Ventilator 40 01/15/21 14:00 22 129/84 Mechanical Ventilator 40 01/15/21 14:00 22 129/84 Mechanical Ventilator 40 01/15/21 14:00 87 22 129/84 (99) 96 01/15/21 13:00 94 22 121/81 (94) 97 01/15/21 13:00 22 121/81 Mechanical Ventilator 40 01/15/21 13:00 22 121/81 Mechanical Ventilator 40 01/15/21 13:00 96 24 40 I&O Intake and Output 01/15/21 01/16/21 19:00 07:00 Intake Total 811.52 ml 890.0 ml Output Total 645 ml 770 ml Balance 166.52 ml 120.0 ml IV Total 351.52 ml 710.0 ml Tube Feeding 360 ml 180 ml Other 100 ml Output Urine Total 645 ml 770 ml # Bowel Movements 2 3 Dressing: saturated Cardiovascular: RSR Respiratory: decreased breath sounds Abdomen: soft, non-tender, present bowel sounds Extremities: no tenderness, no cyanosis Laboratory Tests Test 01/16/21 04:10 White Blood Count 9.3 K/UL (4.8-10.8) Red Blood Count 4.36 M/UL (4.70-6.10) L Hemoglobin 12.5 G/DL (14.2-18.0) L Hematocrit 40.3 % (42.0-52.0) L Mean Corpuscular Volume 93 FL (80-99) Mean Corpuscular Hemoglobin 28.6 PG (27.0-31.0) Mean Corpuscular Hemoglobin Concent 30.9 G/DL (32.0-36.0) L Red Cell Distribution Width 14.1 % (11.6-14.8) Platelet Count 217 K/UL (150-450) Mean Platelet Volume 10.2 FL (6.5-10.1) H Neutrophils (%) (Auto) % (45.0-75.0) Lymphocytes (%) (Auto) % (20.0-45.0) Monocytes (%) (Auto) % (1.0-10.0) Eosinophils (%) (Auto) % (0.0-3.0) Basophils (%) (Auto) % (0.0-2.0) Differential Total Cells Counted 100 Neutrophils % (Manual) 81 % (45-75) H Lymphocytes % (Manual) 14 % (20-45) L Monocytes % (Manual) 5 % (1-10) Eosinophils % (Manual) 0 % (0-3) Basophils % (Manual) 0 % (0-2) Band Neutrophils 0 % (0-8) Platelet Estimate Adequate Platelet Morphology Normal Red Blood Cell Morphology Normal Prothrombin Time 18.5 SEC (9.30-11.50) H Prothromb Time International Ratio 1.8 (0.9-1.1) H Sodium Level 146 MMOL/L (136-145) H Potassium Level 4.3 MMOL/L (3.5-5.1) Chloride Level 112 MMOL/L (98-107) H Carbon Dioxide Level 28 MMOL/L (21-32) Anion Gap 7 mmol/L (5-15) Blood Urea Nitrogen 20 mg/dL (7-18) H Creatinine 1.0 MG/DL (0.55-1.30) Estimat Glomerular Filtration Rate > 60 mL/min (>60) Glucose Level 306 MG/DL (74-106) H Calcium Level 8.3 MG/DL (8.5-10.1) L Plan Problems: (1) COPD (chronic obstructive pulmonary disease) (2) Essential hypertension (3) Schizophrenia (4) Obesity (5) Diabetes mellitus type 2 in obese (6) History of hydrocephalus (7) Anticoagulant long-term use (8) Bipolar 1 disorder (9) History of deep venous thrombosis or pulmonary embolus (10) Acute hypercapnic respiratory failure (11) Sepsis Assessment & Plan: 60-year-old male Covid positive respiratory insufficiency and severe decline being prone intubated on vent support labs noted septic ill-appearing has been developing wound around the face from ET tube.Receiv ed report from RT pt is being proned and was observed to have developed a blood blister under vent tape on L cheek and L earlobe. Skin assessed and pt was observed to have a blood blister that is 50% de-capped,50% intact. Intact Blood Blister noted to L earlobe. Skin Barrier applied to affected areas. Optifoam Thin foam placed between vent anchor and pt's skin. Optifoam thin placed to R cheek under Vent tape, on Bridge of nose and both earlobes. Given patient's critical status current care plan and findings nutritional optimization is strongly encouraged Covid nutrition plan initiated. All Covid precautions are being taken. Imaging reviewed. Will follow with care plan. [facility] you [facility].Plan: Maintain Optifoam Thin foam to R and L cheeks,Bridge of Nose and Both Ears . Change every 7 days and prn.( May request Optifoam Thin from [facility] dept). APM/PEPE Mattress overlay DAILY ESTIMATED NEEDS: Needs based on Critical care, pulmonary, obese 73.7kg abw 22-28 kcals/kg 8370-2759 total kcals 1.2-2 g protein/kg 88-147 g total protein 25-30 mL/kg 6299-8622 total fluid mLs NUTRITION DIAGNOSIS: Altered nutrition related lab values r/t steroidal meds, clinical status as evidenced by febrile on adm (102.5), elevated BG (270 287) on solumedrol, elevated lipid panel (Triglycerides 333, Chol 370, LDL 150). CURRENT TF:Vital @30ml/hr, now Nepro @30 ENTERAL NUTRITION RECOMMENDATIONS: NEPRO @30ml/hr while supine to provide x8 hrs feeds: 360ml, 648 kcal, 29g pro, 262ml free H2O - Feed at rate best tolerated, currently not meeting est needs d/t proning and aspiration risk w/ supine feeds limited to 8hrs/day. - W/ reduced aspiration risk rec feedings to total Volume of 900ml/day of Nepro as medically able. - Monitor tolerance, position/HOB >30 degrees, hemodynamic stability and ability to increase to meet est kcal and pro needs. - With increase pressor support, rec trophic feeds of 10ml/hr for gut integrity. - When tolerating TF at goal add Prosource BID to better meet est pro needs. ADDITIONAL RECOMMENDATIONS: 1) Now intubated, TF recs above when off proning (8hrs feeds) 2) Obtain calibrated bedscale wts 3) HgA1C/ elevated BG Need for niss while on D5 4) Lytes daily; replete as needed 5) Monitor triglycerides, TF tolerance, hemodynamic stability. (12) Respiratory failure with hypoxia (13) Pneumonia due to COVID-19 virus (14) Hyperkalemia (15) DMII (diabetes mellitus, type 2) Ki Strong Jan 16, 2021 12:43
--- NOTE | 2021-01-16 12:48 | Internal Med Progress Note ---
Subjective Date of Service: Jan 16, 2021 Physician Name Vickey Brown Attending Physician Geovanny Bradley MD Current Medications Medications (Trade) Dose Ordered Sig/Johnny Route PRN Reason Start Time Stop Time Status Last Admin Dose Admin Acetaminophen (Tylenol) 650 mg Q6H PRN NG Temp >100.5 01/09/21 09:15 02/08/21 09:14 01/14/21 21:28 Acetaminophen (Tylenol) 650 mg Q6H PRN NG Mild Pain (Pain Scale 1-3) 01/09/21 09:15 02/08/21 09:14 Albuterol Sulfate (Proventil I) 2 puff Q6HRT INH 01/02/21 19:00 04/02/21 18:59 01/16/21 07:00 Benztropine Mesylate (Cogentin) 1 mg EVERY 12 HOURS NG 01/09/21 09:15 02/01/21 09:14 01/16/21 08:07 Chlorhexidine Gluconate (Myranda-Hex 2%) 1 applic DAILY@2000 TOPIC 01/12/21 20:00 04/12/21 19:59 01/15/21 20:27 Dextrose (Dextrose 50%) 25 ml Q30M PRN IV Hypoglycemia 01/06/21 23:45 04/06/21 23:44 Dextrose (Dextrose 50%) 50 ml Q30M PRN IV Hypoglycemia 01/06/21 23:45 04/06/21 23:44 Divalproex Sodium (Depakote Sprinkles) 500 mg Q12HR GT 01/13/21 21:00 02/12/21 20:59 01/16/21 08:07 Fentanyl Citrate 250 ml @ 0 mls/hr Q24H IV 01/16/21 06:00 01/18/21 05:59 01/16/21 06:00 Insulin Aspart (NovoLOG) EVERY 6 HOURS SUBQ 01/09/21 12:00 04/04/21 16:29 01/16/21 12:04 Ipratropium Bailey (Atrovent Inh) 1 puffs Q6HRT INH 01/02/21 19:00 02/01/21 18:59 01/16/21 07:00 Lansoprazole (Prevacid) 30 mg DAILY GT 01/16/21 09:00 02/15/21 08:59 01/16/21 08:07 Methylprednisolone Sodium Succinate (Solu-MEDROL) 40 mg EVERY 12 HOURS IVP 01/02/21 09:00 04/02/21 08:59 01/16/21 08:07 Midazolam HCl 200 ml @ 0 mls/hr Q24H PRN IV Agitation (RASS -2) 01/16/21 03:00 01/23/21 02:59 01/16/21 08:45 Ondansetron HCl (Zofran) 4 mg Q4H PRN IVP Nausea & Vomiting 01/02/21 08:15 02/01/21 08:14 Piperacillin Sod/ Tazobactam Sod 3.375 gm/Sodium Chloride 110 ml @ 27.5 mls/hr EVERY 8 HOURS IVPB 01/13/21 14:00 01/20/21 13:59 01/16/21 06:00 Sodium Chloride 1,000 ml @ 75 mls/hr [id number] IV 01/08/21 11:00 02/07/21 10:59 01/16/21 03:00 Warfarin Sodium (Coumadin per pharmacy) 1 ea DAILY PRN MISC Per rx protocol 01/02/21 08:30 02/01/21 08:29 Warfarin Sodium (Coumadin) 2.5 mg COUMADIN ORAL 01/16/21 17:00 01/16/21 19:00 Allergies: Coded Allergies: No Known Allergies (Unverified , 01/02/21) ROS Limited/Unobtainable: Yes Subjective 60 YO M admitted with shortness of breath. Now respiratory failure. Cover for Int Rohit-DR Bradley. ICU. Intubated and sedated Objective Last Vital Signs Date Time Temp Pulse Resp B/P (MAP) Pulse Ox O2 Delivery O2 Flow Rate FiO2 01/16/21 12:00 99.2 72 22 126/85 (99) 99 01/16/21 12:00 Mechanical Ventilator 60 01/14/21 03:33 15.0 Laboratory Tests Test 01/16/21 04:10 White Blood Count 9.3 K/UL (4.8-10.8) Red Blood Count 4.36 M/UL (4.70-6.10) L Hemoglobin 12.5 G/DL (14.2-18.0) L Hematocrit 40.3 % (42.0-52.0) L Mean Corpuscular Volume 93 FL (80-99) Mean Corpuscular Hemoglobin 28.6 PG (27.0-31.0) Mean Corpuscular Hemoglobin Concent 30.9 G/DL (32.0-36.0) L Red Cell Distribution Width 14.1 % (11.6-14.8) Platelet Count 217 K/UL (150-450) Mean Platelet Volume 10.2 FL (6.5-10.1) H Neutrophils (%) (Auto) % (45.0-75.0) Lymphocytes (%) (Auto) % (20.0-45.0) Monocytes (%) (Auto) % (1.0-10.0) Eosinophils (%) (Auto) % (0.0-3.0) Basophils (%) (Auto) % (0.0-2.0) Differential Total Cells Counted 100 Neutrophils % (Manual) 81 % (45-75) H Lymphocytes % (Manual) 14 % (20-45) L Monocytes % (Manual) 5 % (1-10) Eosinophils % (Manual) 0 % (0-3) Basophils % (Manual) 0 % (0-2) Band Neutrophils 0 % (0-8) Platelet Estimate Adequate Platelet Morphology Normal Red Blood Cell Morphology Normal Prothrombin Time 18.5 SEC (9.30-11.50) H Prothromb Time International Ratio 1.8 (0.9-1.1) H Sodium Level 146 MMOL/L (136-145) H Potassium Level 4.3 MMOL/L (3.5-5.1) Chloride Level 112 MMOL/L (98-107) H Carbon Dioxide Level 28 MMOL/L (21-32) Anion Gap 7 mmol/L (5-15) Blood Urea Nitrogen 20 mg/dL (7-18) H Creatinine 1.0 MG/DL (0.55-1.30) Estimat Glomerular Filtration Rate > 60 mL/min (>60) Glucose Level 306 MG/DL (74-106) H Calcium Level 8.3 MG/DL (8.5-10.1) L Intake and Output 01/15/21 01/16/21 19:00 07:00 Intake Total 811.52 ml 890.0 ml Output Total 645 ml 770 ml Balance 166.52 ml 120.0 ml IV Total 351.52 ml 710.0 ml Tube Feeding 360 ml 180 ml Other 100 ml Output Urine Total 645 ml 770 ml # Bowel Movements 2 3 Objective Objective General: awake, responsive , confused. HEENT: NCAT, sclera anicteric, PERRL, EOMI. Neck: Supple, no significant jugular venous distention, Lungs: mech vent; decreased air at the bases, occasional crackles, no Wheeze. Heart: Regular rate and rhythm, normal S1/S2, no murmurs Abdomen: soft, nontender, nondistended. Normoactive bowel sound, obesity. / Rectal: Refused and deferred. Extremities: Left LE: No Cyanosis , clubbing or edema. Right LE AKA. Neuro: A&O x 2, Able to move all extremities Skin: warm, no rashes or lesions. Assessment/Plan Assessment/Plan Assessment/Plan Assessment/Plan (1) Pneumonia due to COVID-19 virus ICD Codes: U07.1 - COVID-19; J12.82 - Pneumonia due to coronavirus disease 2018 SNOMED: 983438702329250837 (2) Acute hypercapnic respiratory failure ICD Codes: J96.02 - Acute respiratory failure with hypercapnia SNOMED: 778878881 (3) Respiratory failure with hypoxia ICD Codes: J96.91 - Respiratory failure, unspecified with hypoxia SNOMED: 47083301448873001 Qualifiers: Qualified Codes: J96.01 - Acute respiratory failure with hypoxia (4) COPD (chronic obstructive pulmonary disease) ICD Codes: J44.9 - Chronic obstructive pulmonary disease, unspecified SNOMED: 84351349 (5) History of deep venous thrombosis or pulmonary embolus SNOMED: 825355678 (6) Obesity ICD Codes: E66.9 - Obesity, unspecified SNOMED: 214647750, 094383589 (7) Essential hypertension ICD Codes: I10 - Essential (primary) hypertension SNOMED: 04179269 (8) Diabetes mellitus type 2 in obese ICD Codes: E11.69 - Type 2 diabetes mellitus with other specified complication; E66.9 - Obesity, unspecified SNOMED: 87498890 (9) History of hydrocephalus ICD Codes: Z86.69 - Personal history of other diseases of the nervous system and sense organs SNOMED: 522008889 (10) Schizophrenia ICD Codes: F20.9 - Schizophrenia, unspecified SNOMED: 84154580 (11) Bipolar 1 disorder ICD Codes: F31.9 - Bipolar disorder, unspecified SNOMED: 863709963 (12) Anticoagulant long-term use ICD Codes: Z79.01 - jail (current) use of anticoagulants SNOMED: 350605329 13. Sepsis=gram pos cocci Assessment/Plan: Optimize pulmonary hygiene/mobilize as tolerated Non Rebreather mask>BIPAP>intubated On Remdesivir IV Solu-Medrol 40 mg IV twice a day. Abx =zosyn and S/P vanco F/U Cx's Monitor volumes and renal function DVT Px: Coumadin DC IV fluid Start diet Monitor blood glucose level closely. On levophed, fentanyl and propofol drips Pulmonary=Dr Luis ID=Vickey Mtz MD Jan 16, 2021 12:48
--- NOTE | 2021-01-16 13:25 | Nephrology Progress Note ---
Assessment/Plan Problem List: (1) Hyperkalemia (2) Pneumonia due to COVID-19 virus (3) Respiratory failure with hypoxia (4) Obesity (5) Schizophrenia (6) DMII (diabetes mellitus, type 2) Assessment Hyperkalemia Stable renal parameters Hyperglycemia Covid pneumonia due to COVID-19 virus Acute respiratory failure with hypoxia requiring mechanical ventilation History of COPD History of DVT, pulmonary emboli Obese Hypertension History of diabetes Psych condition, schizophrenia, bipolar disease Plan January 16: Full code. Intubated. Labs reviewed. Renal parameters stable. FiO2 60%. Continue per consultants. January 15: Patient remains intubated and full code. Labs reviewed. Stable renal parameters. January 14: Patient full code. Intubated on ventilator. On prone position until 5 PM. Labs reviewed. Stable from renal standpoint of view. January 13: Labs reviewed. Renal parameters stable. Continue per consultants. Patient remain full code and intubated on ventilator. January 12: Labs reviewed. Renal parameters stable. Patient remains full code. Remains intubated on ventilator and on prone position. Continue per consultants. January 11: Labs reviewed. Renal parameters stable. Continue per consultants. January 10: Labs reviewed. Renal parameters stable. Continue per consultants. Change IV to half-normal saline Kayexalate via NG tube for high potassium Monitor electrolytes and renal parameters Per orders, per consultants Subjective ROS Limited/Unobtainable: Yes Objective Objective Last 24 Hour Vital Signs Date Time Temp Pulse Resp B/P (MAP) Pulse Ox O2 Delivery O2 Flow Rate FiO2 01/16/21 13:00 22 119/77 Mechanical Ventilator 60 01/16/21 13:00 22 119/77 Mechanical Ventilator 60 01/16/21 13:00 70 22 119/77 (91) 99 01/16/21 12:00 99.2 72 22 126/85 (99) 99 01/16/21 12:00 22 126/85 Mechanical Ventilator 60 01/16/21 12:00 22 126/85 Mechanical Ventilator 60 01/16/21 12:00 Mechanical Ventilator 01/16/21 12:00 60 01/16/21 11:00 22 128/85 Mechanical Ventilator 60 01/16/21 11:00 22 128/85 Mechanical Ventilator 60 01/16/21 11:00 69 22 128/85 (99) 99 01/16/21 10:00 22 127/86 Mechanical Ventilator 60 01/16/21 10:00 22 127/86 Mechanical Ventilator 60 01/16/21 10:00 70 22 127/86 (100) 99 01/16/21 09:00 75 22 114/78 (90) 99 01/16/21 09:00 22 114/78 Mechanical Ventilator 60 01/16/21 09:00 22 114/78 Mechanical Ventilator 60 01/16/21 08:45 22 107/72 Mechanical Ventilator 60 01/16/21 08:30 77 22 107/72 (84) 99 01/16/21 08:00 100.0 77 22 110/76 (87) 99 01/16/21 08:00 22 110/76 Mechanical Ventilator 60 01/16/21 08:00 22 110/76 Mechanical Ventilator 60 01/16/21 08:00 60 01/16/21 08:00 Mechanical Ventilator 01/16/21 07:00 76 22 109/74 (86) 99 01/16/21 07:00 22 109/74 Mechanical Ventilator 60 01/16/21 07:00 22 109/74 Mechanical Ventilator 60 01/16/21 07:00 76 22 109/74 (86) 99 01/16/21 06:00 99.2 76 22 106/71 (83) 99 01/16/21 06:00 22 106/71 60 01/16/21 06:00 22 106/71 Mechanical Ventilator 60 01/16/21 05:00 22 104/71 60 01/16/21 05:00 79 22 104/71 (82) 99 01/16/21 04:00 81 22 103/69 (80) 98 01/16/21 04:00 60 01/16/21 04:00 22 103/69 Mechanical Ventilator 60 01/16/21 04:00 22 103/69 Mechanical Ventilator 65 01/16/21 04:00 22 103/69 Mechanical Ventilator 65 01/16/21 04:00 81 01/16/21 04:00 Mechanical Ventilator 01/16/21 03:41 80 22 60 01/16/21 03:00 22 101/69 Mechanical Ventilator 60 01/16/21 03:00 22 103/70 Mechanical Ventilator 60 01/16/21 03:00 22 103/70 01/16/21 03:00 89 22 101/69 (80) 98 01/16/21 02:00 22 133/84 Mechanical Ventilator 22 01/16/21 02:00 97 22 133/84 (100) 94 01/16/21 01:00 22 130/85 Mechanical Ventilator 65 01/16/21 01:00 78 22 130/85 (100) 91 01/16/21 00:00 60 01/16/21 00:00 Mechanical Ventilator 01/16/21 00:00 99.0 91 21 133/86 (102) 89 01/16/21 00:00 21 133/86 Mechanical Ventilator 65 01/16/21 00:00 91 01/15/21 23:09 87 22 50 01/15/21 23:00 92 21 122/83 (96) 90 01/15/21 23:00 21 122/83 Mechanical Ventilator 65 01/15/21 22:00 101 22 121/71 (88) 92 01/15/21 22:00 22 121/71 Mechanical Ventilator 65 01/15/21 21:00 79 22 110/70 (83) 92 01/15/21 21:00 22 110/70 Mechanical Ventilator 65 01/15/21 20:00 99.0 78 22 114/77 (89) 90 01/15/21 20:00 78 01/15/21 20:00 22 114/77 Mechanical Ventilator 65 01/15/21 20:00 Mechanical Ventilator 01/15/21 20:00 50 01/15/21 19:12 74 22 50 01/15/21 19:00 72 22 111/76 (88) 97 01/15/21 19:00 22 111/76 Mechanical Ventilator 50 01/15/21 19:00 22 111/76 Mechanical Ventilator 50 01/15/21 18:20 23 108/74 Mechanical Ventilator 50 01/15/21 18:00 22 111/76 Mechanical Ventilator 50 01/15/21 18:00 72 22 111/75 (87) 96 01/15/21 17:00 22 149/85 Mechanical Ventilator 50 01/15/21 17:00 22 149/85 Mechanical Ventilator 50 01/15/21 17:00 99.2 88 22 116/72 (87) 97 01/15/21 16:30 100 23 149/85 (106) 98 01/15/21 16:16 50 01/15/21 16:00 Mechanical Ventilator 01/15/21 16:00 100 01/15/21 16:00 22 139/87 Mechanical Ventilator 50 01/15/21 16:00 22 139/87 Mechanical Ventilator 50 01/15/21 16:00 97 22 124/80 (95) 98 01/15/21 16:00 50 01/15/21 15:30 98 24 124/84 (97) 96 01/15/21 15:00 96 22 128/83 (98) 96 01/15/21 15:00 22 128/83 Mechanical Ventilator 40 01/15/21 15:00 22 128/83 Mechanical Ventilator 40 01/15/21 14:45 22 123/83 Mechanical Ventilator 40 01/15/21 14:30 22 129/84 Mechanical Ventilator 40 01/15/21 14:15 22 129/84 Mechanical Ventilator 40 01/15/21 14:00 22 129/84 Mechanical Ventilator 40 01/15/21 14:00 22 129/84 Mechanical Ventilator 40 01/15/21 14:00 87 22 129/84 (99) 96 Intake and Output 01/15/21 01/16/21 19:00 07:00 Intake Total 811.52 ml 890.0 ml Output Total 645 ml 770 ml Balance 166.52 ml 120.0 ml IV Total 351.52 ml 710.0 ml Tube Feeding 360 ml 180 ml Other 100 ml Output Urine Total 645 ml 770 ml # Bowel Movements 2 3 Current Medications Medications (Trade) Dose Ordered Sig/Johnny Route PRN Reason Start Time Stop Time Status Last Admin Dose Admin Acetaminophen (Tylenol) 650 mg Q6H PRN NG Temp >100.5 01/09/21 09:15 02/08/21 09:14 01/14/21 21:28 Acetaminophen (Tylenol) 650 mg Q6H PRN NG Mild Pain (Pain Scale 1-3) 01/09/21 09:15 02/08/21 09:14 Albuterol Sulfate (Proventil MDI) 2 puff Q6HRT INH 01/02/21 19:00 04/02/21 18:59 01/16/21 07:00 Benztropine Mesylate (Cogentin) 1 mg EVERY 12 HOURS NG 01/09/21 09:15 02/01/21 09:14 01/16/21 08:07 Chlorhexidine Gluconate (Myranda-Hex 2%) 1 applic DAILY@2000 TOPIC 01/12/21 20:00 04/12/21 19:59 01/15/21 20:27 Dextrose (Dextrose 50%) 25 ml Q30M PRN IV Hypoglycemia 01/06/21 23:45 04/06/21 23:44 Dextrose (Dextrose 50%) 50 ml Q30M PRN IV Hypoglycemia 01/06/21 23:45 04/06/21 23:44 Divalproex Sodium (Depakote Sprinkles) 500 mg Q12HR GT 01/13/21 21:00 02/12/21 20:59 01/16/21 08:07 Fentanyl Citrate 250 ml @ 0 mls/hr Q24H IV 01/16/21 06:00 01/18/21 05:59 01/16/21 06:00 Insulin Aspart (NovoLOG) EVERY 6 HOURS SUBQ 01/09/21 12:00 04/04/21 16:29 01/16/21 12:04 Ipratropium [place] (Atrovent Inh) 1 puffs Q6HRT INH 01/02/21 19:00 02/01/21 18:59 01/16/21 07:00 Lansoprazole (Prevacid) 30 mg DAILY GT 01/16/21 09:00 02/15/21 08:59 01/16/21 08:07 Methylprednisolone Sodium Succinate (Solu-MEDROL) 40 mg EVERY 12 HOURS IVP 01/02/21 09:00 04/02/21 08:59 01/16/21 08:07 Midazolam HCl 200 ml @ 0 mls/hr Q24H PRN IV Agitation (RASS -2) 01/16/21 03:00 01/23/21 02:59 01/16/21 08:45 Ondansetron HCl (Zofran) 4 mg Q4H PRN IVP Nausea & Vomiting 01/02/21 08:15 02/01/21 08:14 Piperacillin Sod/ Tazobactam Sod 3.375 gm/Sodium Chloride 110 ml @ 27.5 mls/hr EVERY 8 HOURS IVPB 01/13/21 14:00 01/20/21 13:59 01/16/21 06:00 Sodium Chloride 1,000 ml @ 75 mls/hr [id number] IV 01/08/21 11:00 02/07/21 10:59 01/16/21 03:00 Warfarin Sodium (Coumadin per pharmacy) 1 ea DAILY PRN MISC Per rx protocol 01/02/21 08:30 02/01/21 08:29 Warfarin Sodium (Coumadin) 2.5 mg COUMADIN ORAL 01/16/21 17:00 01/16/21 19:00 Laboratory Tests 01/16/21 04:10: White Blood Count 9.3, Red Blood Count 4.36L, Hemoglobin 12.5L, Hematocrit 40.3L , Mean Corpuscular Volume 93, Mean Corpuscular Hemoglobin 28.6, Mean Corpuscular Hemoglobin Concent 30.9L, Red Cell Distribution Width 14.1, Platelet Count 217, Mean Platelet Volume 10.2H, Neutrophils (%) (Auto) , Lymphocytes (%) (Auto) , Monocytes (%) (Auto) , Eosinophils (%) (Auto) , Basophils (%) (Auto) , Dif ferential Total Cells Counted 100, Neutrophils % (Manual) 81H, Lymphocytes % (Manual) 14L, Monocytes % (Manual) 5, Eosinophils % (Manual) 0, Basophils % (Manual) 0, Band Neutrophils 0, Platelet Estimate Adequate, Platelet Morphology Normal, Red Blood Cell Morphology Normal, Prothrombin Time 18.5H, Prothromb Time International Ratio 1.8H, Sodium Level 146H, Potassium Level 4.3, Chloride Level 112H, Carbon Dioxide Level 28, Anion Gap 7, Blood Urea Nitrogen 20H, Creatinine 1.0, Estimat Glomerular Filtration Rate > 60, Glucose Level 306H, Calcium Level 8.3L Height (Feet): 5 Height (Inches): 5.00 Weight (Pounds): 233 General Appearance: no apparent distress EENT: other - Intubated on ventilator on FiO2 of 60% Cardiovascular: normal rate Respiratory/Chest: decreased breath sounds Abdomen: distended Avi Frye MD Jan 16, 2021 13:25
[2021-01-16] MEDS ORDERED: Warfarin Sodium 2.5mg ORAL SCH (17:00)
[2021-01-16] MEDS: Dyna-Hex 2% Top Sol 2oz TOPIC SCH (20:58)
--- NOTE | 2021-01-16 21:37 | Pulmonology Progress Note ---
Subjective ROS Limited/Unobtainable: Yes Allergies: Coded Allergies: No Known Allergies (Unverified , 01/02/21) Objective Last 24 Hour Vital Signs Date Time Temp Pulse Resp B/P (MAP) Pulse Ox O2 Delivery O2 Flow Rate FiO2 01/16/21 19:27 66 22 60 01/16/21 19:00 65 22 97/67 (77) 96 01/16/21 19:00 22 97/67 Mechanical Ventilator 60 01/16/21 19:00 22 97/67 Mechanical Ventilator 60 01/16/21 18:00 65 22 96/65 (75) 96 01/16/21 18:00 22 95/65 Mechanical Ventilator 60 01/16/21 18:00 22 96/65 Mechanical Ventilator 60 01/16/21 17:30 65 22 100/67 (78) 96 01/16/21 17:00 22 99/63 Mechanical Ventilator 22 01/16/21 17:00 22 99/63 Mechanical Ventilator 60 01/16/21 17:00 66 22 99/63 (75) 96 01/16/21 16:30 66 22 97/63 (74) 96 01/16/21 16:00 60 01/16/21 16:00 66 01/16/21 16:00 22 100/68 Mechanical Ventilator 60 01/16/21 16:00 22 100/68 Mechanical Ventilator 60 01/16/21 16:00 Mechanical Ventilator 01/16/21 16:00 99.4 65 22 100/68 (79) 95 01/16/21 15:22 71 22 60 01/16/21 15:00 22 118/78 Mechanical Ventilator 60 01/16/21 15:00 22 118/78 Mechanical Ventilator 60 01/16/21 15:00 22 118/78 Mechanical Ventilator 60 01/16/21 15:00 22 118/78 Mechanical Ventilator 60 01/16/21 15:00 70 22 118/78 (91) 99 01/16/21 14:30 22 119/80 Mechanical Ventilator 60 01/16/21 14:00 68 22 119/80 (93) 98 01/16/21 14:00 22 119/80 Mechanical Ventilator 60 01/16/21 14:00 22 119/80 Mechanical Ventilator 60 01/16/21 13:59 22 118/80 Mechanical Ventilator 60 01/16/21 13:00 22 119/77 Mechanical Ventilator 60 01/16/21 13:00 22 119/77 Mechanical Ventilator 60 01/16/21 13:00 70 22 119/77 (91) 99 01/16/21 12:00 99.2 72 22 126/85 (99) 99 01/16/21 12:00 81 01/16/21 12:00 22 126/85 Mechanical Ventilator 60 01/16/21 12:00 22 126/85 Mechanical Ventilator 60 01/16/21 12:00 Mechanical Ventilator 01/16/21 12:00 60 01/16/21 11:08 72 22 60 01/16/21 11:00 22 128/85 Mechanical Ventilator 60 01/16/21 11:00 22 128/85 Mechanical Ventilator 60 01/16/21 11:00 69 22 128/85 (99) 99 01/16/21 10:00 22 127/86 Mechanical Ventilator 60 01/16/21 10:00 22 127/86 Mechanical Ventilator 60 01/16/21 10:00 70 22 127/86 (100) 99 01/16/21 09:00 75 22 114/78 (90) 99 01/16/21 09:00 22 114/78 Mechanical Ventilator 60 01/16/21 09:00 22 114/78 Mechanical Ventilator 60 01/16/21 08:45 22 107/72 Mechanical Ventilator 60 01/16/21 08:30 77 22 107/72 (84) 99 01/16/21 08:00 81 01/16/21 08:00 100.0 77 22 110/76 (87) 99 01/16/21 08:00 22 110/76 Mechanical Ventilator 60 01/16/21 08:00 22 110/76 Mechanical Ventilator 60 01/16/21 08:00 60 01/16/21 08:00 Mechanical Ventilator 01/16/21 07:10 77 22 60 01/16/21 07:00 76 22 109/74 (86) 99 01/16/21 07:00 22 109/74 Mechanical Ventilator 60 01/16/21 07:00 22 109/74 Mechanical Ventilator 60 01/16/21 07:00 76 22 109/74 (86) 99 01/16/21 06:00 99.2 76 22 106/71 (83) 99 01/16/21 06:00 22 106/71 60 01/16/21 06:00 22 106/71 Mechanical Ventilator 60 01/16/21 05:00 22 104/71 60 01/16/21 05:00 79 22 104/71 (82) 99 01/16/21 04:00 81 22 103/69 (80) 98 01/16/21 04:00 60 01/16/21 04:00 22 103/69 Mechanical Ventilator 60 01/16/21 04:00 22 103/69 Mechanical Ventilator 65 01/16/21 04:00 22 103/69 Mechanical Ventilator 65 01/16/21 04:00 81 01/16/21 04:00 Mechanical Ventilator 01/16/21 03:41 80 22 60 01/16/21 03:00 22 101/69 Mechanical Ventilator 60 01/16/21 03:00 22 103/70 Mechanical Ventilator 60 01/16/21 03:00 22 103/70 01/16/21 03:00 89 22 101/69 (80) 98 01/16/21 02:00 22 133/84 Mechanical Ventilator 22 01/16/21 02:00 97 22 133/84 (100) 94 01/16/21 01:00 22 130/85 Mechanical Ventilator 65 01/16/21 01:00 78 22 130/85 (100) 91 01/16/21 00:00 60 01/16/21 00:00 Mechanical Ventilator 01/16/21 00:00 99.0 91 21 133/86 (102) 89 01/16/21 00:00 21 133/86 Mechanical Ventilator 65 01/16/21 00:00 91 01/15/21 23:09 87 22 50 01/15/21 23:00 92 21 122/83 (96) 90 01/15/21 23:00 21 122/83 Mechanical Ventilator 65 01/15/21 22:00 101 22 121/71 (88) 92 01/15/21 22:00 22 121/71 Mechanical Ventilator 65 Intake and Output 01/15/21 01/16/21 19:00 07:00 Intake Total 811.52 ml 890.0 ml Output Total 645 ml 770 ml Balance 166.52 ml 120.0 ml IV Total 351.52 ml 710.0 ml Tube Feeding 360 ml 180 ml Other 100 ml Output Urine Total 645 ml 770 ml # Bowel Movements 2 3 Laboratory Tests 01/16/21 04:10: White Blood Count 9.3, Red Blood Count 4.36L, Hemoglobin 12.5L, Hematocrit 40.3L , Mean Corpuscular Volume 93, Mean Corpuscular Hemoglobin 28.6, Mean Corpuscular Hemoglobin Concent 30.9L, Red Cell Distribution Width 14.1, Platelet Count 217, Mean Platelet Volume 10.2H, Neutrophils (%) (Auto) , Lymphocytes (%) (Auto) , Monocytes (%) (Auto) , Eosinophils (%) (Auto) , Basophils (%) (Auto) , Differential Total Cells Counted 100, Neutrophils % (Manual) 81H, Lymphocytes % (Manual) 14L, Monocytes % (Manual) 5, Eosinophils % (Manual) 0, Basophils % (Manual) 0, Band Neutrophils 0, Platelet Estimate Adequate, Platelet Morphology Normal, Red Blood Cell Morphology Normal, Prothrombin Time 18.5H, Prothromb Time International Ratio 1.8H, Sodium Level 146H, Potassium Level 4.3, Chloride Level 112H, Carbon Dioxide Level 28, Anion Gap 7, Blood Urea Nitrogen 20H, Creatinine 1.0, Estimat Glomerular Filtration Rate > 60, Glucose Level 306H, Calcium Level 8.3L Current Medications Medications (Trade) Dose Ordered Sig/Johnny Route PRN Reason Start Time Stop Time Status Last Admin Dose Admin Acetaminophen (Tylenol) 650 mg Q6H PRN NG Temp >100.5 01/09/21 09:15 02/08/21 09:14 01/14/21 21:28 Acetaminophen (Tylenol) 650 mg Q6H PRN NG Mild Pain (Pain Scale 1-3) 01/09/21 09:15 02/08/21 09:14 Albuterol Sulfate (Proventil MDI) 2 puff Q6HRT INH 01/02/21 19:00 04/02/21 18:59 01/16/21 19:26 Benztropine Mesylate (Cogentin) 1 mg EVERY 12 HOURS NG 01/09/21 09:15 02/01/21 09:14 01/16/21 20:59 Chlorhexidine Gluconate (Myranda-Hex 2%) 1 applic DAILY@2000 TOPIC 01/12/21 20:00 04/12/21 19:59 01/16/21 20:58 Dextrose (Dextrose 50%) 25 ml Q30M PRN IV Hypoglycemia 01/06/21 23:45 04/06/21 23:44 Dextrose (Dextrose 50%) 50 ml Q30M PRN IV Hypoglycemia 01/06/21 23:45 5/8/21 23:44 Divalproex Sodium (Depakote Sprinkles) 500 mg Q12HR GT 01/13/21 21:00 02/12/21 20:59 01/16/21 20:59 Fentanyl Citrate 250 ml @ 0 mls/hr Q24H IV 01/16/21 06:00 01/18/21 05:59 01/16/21 13:59 Insulin Aspart (NovoLOG) EVERY 6 HOURS SUBQ 01/09/21 12:00 04/04/21 16:29 01/16/21 18:10 Ipratropium [place] (Atrovent Inh) 1 puffs Q6HRT INH 01/02/21 19:00 02/01/21 18:59 01/16/21 19:26 Lansoprazole (Prevacid) 30 mg DAILY GT 01/16/21 09:00 02/15/21 08:59 01/16/21 08:07 Methylprednisolone Sodium Succinate (Solu-MEDROL) 30 mg EVERY 12 HOURS IVP 01/16/21 21:00 04/16/21 20:59 01/16/21 20:59 Midazolam HCl 200 ml @ 0 mls/hr Q24H PRN IV Agitation (RASS -2) 01/16/21 03:00 01/16/21 23:59 01/16/21 14:30 Midazolam HCl 200 ml @ 0 mls/hr Q24H PRN IV Agitation (RASS -2) 01/17/21 00:00 01/24/21 00:00 Ondansetron HCl (Zofran) 4 mg Q4H PRN IVP Nausea & Vomiting 01/02/21 08:15 02/01/21 08:14 Piperacillin Sod/ Tazobactam Sod 3.375 gm/Sodium Chloride 110 ml @ 27.5 mls/hr EVERY 8 HOURS IVPB 01/13/21 14:00 01/20/21 13:59 01/16/21 20:59 Sodium Chloride 1,000 ml @ 75 mls/hr [id number] IV 01/08/21 11:00 02/07/21 10:59 01/16/21 03:00 Warfarin Sodium (Coumadin per pharmacy) 1 ea DAILY PRN MISC Per rx protocol 01/02/21 08:30 02/01/21 08:29 Assessment/Plan Assessment/Plan Pulmonary CCM Progress Note HPI Patient is a 60 man with prior h/o COPD, CPS/bipolar DO, 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 ID following and started on CTx/Azithro + REM + SM, CXR with bilateral infiltrates,ETT appropriate. Proning as tolerated Sedated in ICU on Ventilator, has OGT/central line On pressors PRN PEEP reduced to 5,maintaining O2 sats, FIO2 - 60% Pressure areas around ETT site - surgery/wound nurse following Allergies: Coded Allergies: No Known Allergies (Unverified , 01/02/21) PMH: COPD, CPS/bipolar DO, prior DVT/PE on AC, NHR, DM2, HTN and hydrocephalus Physical Exam Deferred Covid19 Vital Signs noted Laboratory Tests noted Imaging noted Height (Feet): 5 Height (Inches): 5.00 Weight (Pounds): 233 Medications Medications noted Assessment/Plan Problem List: (1) Pneumonia due to COVID-19 virus ICD Codes: U07.1 - COVID-19; J12.82 - Pneumonia due to coronavirus disease 2019 SNOMED: 086103207440539414 (2) Acute hypercapnic respiratory failure ICD Codes: J96.02 - Acute respiratory failure with hypercapnia SNOMED: 701111277 (3) Respiratory failure with hypoxia ICD Codes: J96.91 - Respiratory failure, unspecified with hypoxia SNOMED: 38345118263180023 Qualifiers: Qualified Codes: J96.01 - Acute respiratory failure with hypoxia (4) COPD (chronic obstructive pulmonary disease) ICD Codes: J44.9 - Chronic obstructive pulmonary disease, unspecified SNOMED: 33779481 (5) History of deep venous thrombosis or pulmonary embolus SNOMED: 326924198 (6) Obesity ICD Codes: E66.9 - Obesity, unspecified SNOMED: 840424379, 142588300 (7) Essential hypertension ICD Codes: I10 - Essential (primary) hypertension SNOMED: 75463897 (8) Diabetes mellitus type 2 in obese ICD Codes: E11.69 - Type 2 diabetes mellitus with other specified complication; E66.9 - Obesity, unspecified SNOMED: 68710445 (9) History of hydrocephalus ICD Codes: Z86.69 - Personal history of other diseases of the nervous system and sense organs SNOMED: 802475006 (10) Schizophrenia ICD Codes: F20.9 - Schizophrenia, unspecified SNOMED: 91855763 (11) Bipolar 1 disorder ICD Codes: F31.9 - Bipolar disorder, unspecified SNOMED: 719271627 (12) Anticoagulant long-term use ICD Codes: Z79.01 - alf (current) use of anticoagulants SNOMED: 546954782 Assessment/Plan: ACVC - adjust PRN Prone as tolerated per protocol - reduce proning timegiven improvement Adjust FiO2 to keep SaO2 > 92% Reduce PEEP as tolerated Wean as tolerated once PEEP 5 Sedation PRN HFA's F/U inflammatory markers and covid labs ID recs REM per ID Wean SM Abx per ID F/U Cx's Monitor volumes and renal function DVT Px: Coumadin TF when not proned Anuel Luis MD Jan 16, 2021 21:37
[2021-01-17] VITALS (63 sets, daily range): BP systolic 100–135; BP diastolic 57–103
[2021-01-17] MEDS: NovoLOG Insulin Flexpen SUBQ SCH ×5 (00:30→19:03)
[2021-01-17] MEDS: Ipratropium Bromide Inhaler INH SCH ×4 (01:00→19:00)
[2021-01-17] MEDS: Albuterol 90mcg Inhaler 8gm INH SCH ×4 (01:00→19:00)
[2021-01-17] MEDS: Versed 100mg/NS 200ml 200 ML IV PRN ×4 (01:00→18:42)
[2021-01-17] MEDS: fentaNYL 2500mcg/NS 250ml 250 ML IV SCH ×2 (03:30→11:37)
[2021-01-17 04:36] LABS: BASOPHILS % (AUTO) 0.5 % (0.0-2.0); EOSINOPHILS % (AUTO) 0.2 % (0.0-3.0); HEMATOCRIT 38.5 % (42.0-52.0); MEAN CORPUSCULAR VOLUME 92 FL (80-99); MONOCYTES % (AUTO) 3.8 % (1.0-10.0); NEUTROPHILS % (AUTO) 83.5 % (45.0-75.0); PLATELET COUNT 181 K/UL (150-450); RED BLOOD COUNT 4.16 M/UL (4.70-6.10); RED CELL DISTRIBUTION WIDTH 14.1 % (11.6-14.8); WHITE BLOOD COUNT 8.9 K/UL (4.8-10.8)
[2021-01-17 05:15] LABS: PHOSPHORUS 3.4 MG/DL (2.5-4.9)
[2021-01-17 05:31] LABS: ALANINE AMINOTRANSFERASE 27 U/L (12-78); ALBUMIN 1.8 G/DL (3.4-5.0); ALBUMIN/GLOBULIN RATIO 0.4 (1.0-2.7); ALKALINE PHOSPHATASE 49 U/L (46-116); ANION GAP 9 mmol/L (5-15); ASPARTATE AMINO TRANSFERASE 17 U/L (15-37); BILIRUBIN,TOTAL 0.5 MG/DL (0.2-1.0); BLOOD UREA NITROGEN 19 mg/dL (7-18); CALCIUM 8.2 MG/DL (8.5-10.1); CARBON DIOXIDE 24 MMOL/L (21-32); CHLORIDE 109 MMOL/L (98-107); CREATININE 0.8 MG/DL (0.55-1.30); POTASSIUM 4.6 MMOL/L (3.5-5.1); SODIUM 142 MMOL/L (136-145)
[2021-01-17] MEDS: Piperacillin/Tazobactam 3.375 GM in NS 110 ML IVPB SCH ×3 (06:24→21:54)
[2021-01-17] MEDS: Benztropine 1mg tab NG SCH ×2 (08:41→19:56)
[2021-01-17] MEDS: Solu-MEDROL 40mg Inj IVP SCH ×2 (08:42→20:06)
[2021-01-17] MEDS: Lansoprazole 15mg cap GT SCH (08:42)
[2021-01-17] MEDS: Depakote 125mg Sprinkles GT SCH ×2 (08:42→19:56)
--- NOTE | 2021-01-17 09:01 | Infectious Diseases Prog Note ---
Assessment/Plan 60yo M with: Staph epi bacteremia, m/l skin contaminant 01/10 BCx 1/2 +Staph epi 01/13 BCx NTD COVID pna, severe Acute hypoxia 2/2 COVID pna >> intubated 01/06 Febrile to 103 Normal WBC Elevated AST 51 2/2 Tested positive for COVID at [facility] 2/ COVID PCR positive /3 BCx NTD CXR: Multifocal pna MRSA nares neg / Intubated in ICU CXR: 1. Appropriately positioned endotracheal and enteric tubes. 2. Stable bilateral airspace disease. 01/07 Resp cx +Yasmine albicans (colonizer) 01/11 CXR: Interval improved bilateral lung aeration. Bibasilar infiltrates/atelectasis. Cr 1.1 HIV screen neg PMH: DM2 COPD HTN SNF resident Plan: Cont Zosyn #9/10 given critical illness On steroids #16, on methylpred 30 IV q12 - defer course to Pulm/Primary, consider stopping/tapering given s/p 10 day course wo clear improvement 01/14 SP vanco IV #1 01/09 SP CTX #7 01/07 SP azithro #5, RDV #5 This institution does not have access to convalescent plasma and only recommended to give in setting of clinical trial Monitor CBC/CMP Monitor temp curve, hemodynamics Monitor resp status D/w RN Thank you for this consult. [facility] will continue to follow. Subjective Allergies: Coded Allergies: No Known Allergies (Unverified , 01/02/21) AF Sedated on vent 60% PEEP 7 Proned WBC 8.9 Objective Last 24 Hour Vital Signs Date Time Temp Pulse Resp B/P (MAP) Pulse Ox O2 Delivery O2 Flow Rate FiO2 01/17/21 06:57 22 101/58 Mechanical Ventilator 60 01/17/21 06:30 72 22 113/65 (81) 98 01/17/21 06:15 68 22 113/69 (84) 98 01/17/21 06:00 99.3 69 22 112/66 (81) 98 01/17/21 06:00 22 105/56 Mechanical Ventilator 60 01/17/21 06:00 22 105/56 Mechanical Ventilator 60 01/17/21 05:45 68 22 111/69 (83) 98 01/17/21 05:30 69 22 115/69 (84) 98 01/17/21 05:15 69 22 114/67 (83) 98 01/17/21 05:00 69 22 112/70 (84) 97 01/17/21 05:00 22 112/65 Mechanical Ventilator 60 01/17/21 05:00 22 112/65 Mechanical Ventilator 60 01/17/21 04:45 69 22 112/67 (82) 97 01/17/21 04:30 68 22 109/64 (79) 97 01/17/21 04:15 71 22 108/64 (79) 97 01/17/21 04:00 99.2 71 22 107/65 (79) 96 01/17/21 04:00 22 114/67 Mechanical Ventilator 60 01/17/21 04:00 22 114/67 Mechanical Ventilator 60 01/17/21 04:00 Mechanical Ventilator 01/17/21 04:00 74 01/17/21 04:00 60 01/17/21 03:30 75 22 106/67 (80) 97 01/17/21 03:30 22 112/68 Mechanical Ventilator 60 01/17/21 03:30 22 112/68 Mechanical Ventilator 60 01/17/21 03:00 72 22 110/69 (83) 97 01/17/21 03:00 22 110/68 Mechanical Ventilator 60 01/17/21 03:00 22 110/68 Mechanical Ventilator 60 01/17/21 03:00 79 22 60 01/17/21 02:30 65 22 116/76 (89) 96 01/17/21 02:00 69 22 115/71 (86) 96 01/17/21 02:00 22 101/65 Mechanical Ventilator 60 01/17/21 02:00 22 101/65 Mechanical Ventilator 60 01/17/21 01:30 74 22 116/72 (87) 96 01/17/21 01:00 22 101/58 Mechanical Ventilator 60 01/17/21 01:00 22 101/58 Mechanical Ventilator 60 01/17/21 01:00 91 13 103/59 (74) 97 01/17/21 00:30 73 22 100/64 (76) 97 01/17/21 00:00 68 01/17/21 00:00 99.3 72 22 104/70 (81) 96 01/17/21 00:00 22 98/63 Mechanical Ventilator 60 01/17/21 00:00 22 98/63 Mechanical Ventilator 60 01/17/21 00:00 Mechanical Ventilator 01/16/21 23:30 69 22 101/64 (76) 96 01/16/21 23:02 69 22 60 01/16/21 23:00 70 22 98/64 (75) 96 01/16/21 23:00 22 101/64 Mechanical Ventilator 60 01/16/21 23:00 22 93/64 Mechanical Ventilator 60 01/16/21 22:30 71 22 93/64 (74) 95 01/16/21 22:00 74 22 93/57 (69) 95 01/16/21 22:00 22 102/68 Mechanical Ventilator 60 01/16/21 22:00 22 102/68 Mechanical Ventilator 60 01/16/21 21:30 78 21 102/68 (79) 95 01/16/21 21:00 75 22 88/47 (61) 96 01/16/21 21:00 22 86/51 Mechanical Ventilator 30 01/16/21 21:00 22 86/51 Mechanical Ventilator 60 01/16/21 20:30 73 22 86/51 (63) 97 01/16/21 20:00 Mechanical Ventilator 01/16/21 20:00 99.6 69 22 94/58 (70) 96 01/16/21 20:00 66 01/16/21 20:00 22 97/65 Mechanical Ventilator 60 01/16/21 20:00 2 97/65 Mechanical Ventilator 60 01/16/21 20:00 60 01/16/21 19:30 65 22 97/65 (76) 96 01/16/21 19:27 66 22 60 01/16/21 19:00 65 22 97/67 (77) 96 01/16/21 19:00 22 97/67 Mechanical Ventilator 60 01/16/21 19:00 22 97/67 Mechanical Ventilator 60 01/16/21 18:00 65 22 96/65 (75) 96 01/16/21 18:00 22 95/65 Mechanical Ventilator 60 01/16/21 18:00 22 96/65 Mechanical Ventilator 60 01/16/21 17:30 65 22 100/67 (78) 96 01/16/21 17:00 22 99/63 Mechanical Ventilator 22 01/16/21 17:00 22 99/63 Mechanical Ventilator 60 01/16/21 17:00 66 22 99/63 (75) 96 01/16/21 16:30 66 22 97/63 (74) 96 01/16/21 16:00 60 01/16/21 16:00 66 01/16/21 16:00 22 100/68 Mechanical Ventilator 60 01/16/21 16:00 22 100/68 Mechanical Ventilator 60 01/16/21 16:00 Mechanical Ventilator 01/16/21 16:00 99.4 65 22 100/68 (79) 95 01/16/21 15:22 71 22 60 01/16/21 15:00 22 118/78 Mechanical Ventilator 60 01/16/21 15:00 22 118/78 Mechanical Ventilator 60 01/16/21 15:00 22 118/78 Mechanical Ventilator 60 01/16/21 15:00 22 118/78 Mechanical Ventilator 60 01/16/21 15:00 70 22 118/78 (91) 99 01/16/21 14:30 22 119/80 Mechanical Ventilator 60 01/16/21 14:00 68 22 119/80 (93) 98 01/16/21 14:00 22 119/80 Mechanical Ventilator 60 01/16/21 14:00 22 119/80 Mechanical Ventilator 60 01/16/21 13:59 22 118/80 Mechanical Ventilator 60 01/16/21 13:00 22 119/77 Mechanical Ventilator 60 01/16/21 13:00 22 119/77 Mechanical Ventilator 60 01/16/21 13:00 70 22 119/77 (91) 99 01/16/21 12:00 99.2 72 22 126/85 (99) 99 01/16/21 12:00 81 01/16/21 12:00 22 126/85 Mechanical Ventilator 60 01/16/21 12:00 22 126/85 Mechanical Ventilator 60 01/16/21 12:00 Mechanical Ventilator 01/16/21 12:00 60 01/16/21 11:08 72 22 60 01/16/21 11:00 22 128/85 Mechanical Ventilator 60 01/16/21 11:00 22 128/85 Mechanical Ventilator 60 01/16/21 11:00 69 22 128/85 (99) 99 01/16/21 10:00 22 127/86 Mechanical Ventilator 60 01/16/21 10:00 22 127/86 Mechanical Ventilator 60 01/16/21 10:00 70 22 127/86 (100) 99 Height (Feet): 5 Height (Inches): 5.00 Weight (Pounds): 233 Gen: NAD HEENT: NCAT, ETT CV: RRR Pulm: BL chest rise, proned Ext: No c/c/e Skin: No visible rashes Neuro: Sedated Laboratory Tests Test 01/17/21 02:18 White Blood Count 8.9 K/UL (4.8-10.8) Red Blood Count 4.16 M/UL (4.70-6.10) L Hemoglobin 12.0 G/DL (14.2-18.0) L Hematocrit 38.5 % (42.0-52.0) L Mean Corpuscular Volume 92 FL (80-99) Mean Corpuscular Hemoglobin 28.9 PG (27.0-31.0) Mean Corpuscular Hemoglobin Concent 31.2 G/DL (32.0-36.0) L Red Cell Distribution Width 14.1 % (11.6-14.8) Platelet Count 181 K/UL (150-450) Mean Platelet Volume 8.8 FL (6.5-10.1) Neutrophils (%) (Auto) 83.5 % (45.0-75.0) H Lymphocytes (%) (Auto) 12.0 % (20.0-45.0) L Monocytes (%) (Auto) 3.8 % (1.0-10.0) Eosinophils (%) (Auto) 0.2 % (0.0-3.0) Basophils (%) (Auto) 0.5 % (0.0-2.0) Prothrombin Time 20.8 SEC (9.30-11.50) H Prothromb Time International Ratio 2.0 (0.9-1.1) H Sodium Level 142 MMOL/L (136-145) Potassium Level 4.6 MMOL/L (3.5-5.1) Chloride Level 109 MMOL/L (98-107) H Carbon Dioxide Level 24 MMOL/L (21-32) Anion Gap 9 mmol/L (5-15) Blood Urea Nitrogen 19 mg/dL (7-18) H Creatinine 0.8 MG/DL (0.55-1.30) Estimat Glomerular Filtration Rate > 60 mL/min (>60) Glucose Level 290 MG/DL (74-106) H Calcium Level 8.2 MG/DL (8.5-10.1) L Phosphorus Level 3.4 MG/DL (2.5-4.9) Magnesium Level 2.2 MG/DL (1.8-2.4) Total Bilirubin 0.5 MG/DL (0.2-1.0) Aspartate Amino Transf (AST/SGOT) 17 U/L (15-37) Alanine Aminotransferase (ALT/SGPT) 27 U/L (12-78) Alkaline Phosphatase 49 U/L (46-116) C-Reactive Protein, Quantitative 3.3 mg/dL (0.00-0.90) H Pro-B-Type Natriuretic Peptide 165 pg/mL (0-125) H Total Protein 5.8 G/DL (6.4-8.2) L Albumin 1.8 G/DL (3.4-5.0) L Globulin 4.0 g/dL Albumin/Globulin Ratio 0.4 (1.0-2.7) L Current Medications Medications (Trade) Dose Ordered Sig/Johnny Route PRN Reason Start Time Stop Time Status Last Admin Dose Admin Acetaminophen (Tylenol) 650 mg Q6H PRN NG Temp >100.5 01/09/21 09:15 02/08/21 09:14 01/14/21 21:28 Acetaminophen (Tylenol) 650 mg Q6H PRN NG Mild Pain (Pain Scale 1-3) 01/09/21 09:15 02/08/21 09:14 Albuterol Sulfate (Proventil MDI) 2 puff Q6HRT INH 01/02/21 19:00 04/02/21 18:59 01/17/21 07:40 Benztropine Mesylate (Cogentin) 1 mg EVERY 12 HOURS NG 01/09/21 09:15 02/01/21 09:14 01/17/21 08:41 Chlorhexidine Gluconate (Myranda-Hex 2%) 1 applic DAILY@2000 TOPIC 01/12/21 20:00 04/12/21 19:59 01/16/21 20:58 Dextrose (Dextrose 50%) 25 ml Q30M PRN IV Hypoglycemia 01/06/21 23:45 04/06/21 23:44 Dextrose (Dextrose 50%) 50 ml Q30M PRN IV Hypoglycemia 01/06/21 23:45 04/06/21 23:44 Divalproex Sodium (Depakote Sprinkles) 500 mg Q12HR GT 01/13/21 21:00 02/12/21 20:59 01/17/21 08:42 Fentanyl Citrate 250 ml @ 0 mls/hr Q24H IV 01/16/21 06:00 01/18/21 05:59 01/17/21 03:30 Insulin Aspart (NovoLOG) EVERY 6 HOURS SUBQ 01/09/21 12:00 04/04/21 16:29 01/17/21 06:22 Ipratropium [place] (Atrovent Inh) 1 puffs Q6HRT INH 01/02/21 19:00 02/01/21 18:59 01/17/21 07:40 Lansoprazole (Prevacid) 30 mg DAILY GT 01/16/21 09:00 02/15/21 08:59 01/17/21 08:42 Methylprednisolone Sodium Succinate (Solu-MEDROL) 30 mg EVERY 12 HOURS IVP 01/16/21 21:00 04/16/21 20:59 01/17/21 08:42 Midazolam HCl 200 ml @ 0 mls/hr Q24H PRN IV Agitation (RASS -2) 01/17/21 00:00 01/24/21 00:00 01/17/21 06:57 Ondansetron HCl (Zofran) 4 mg Q4H PRN IVP Nausea & Vomiting 01/02/21 08:15 02/01/21 08:14 Piperacillin Sod/ Tazobactam Sod 3.375 gm/Sodium Chloride 110 ml @ 27.5 mls/hr EVERY 8 HOURS IVPB 01/13/21 14:00 01/20/21 13:59 01/17/21 06:24 Sodium Chloride 1,000 ml @ 75 mls/hr [id number] IV 01/08/21 11:00 02/07/21 10:59 01/17/21 03:00 Warfarin Sodium (Coumadin per pharmacy) 1 ea DAILY PRN MISC Per rx protocol 01/02/21 08:30 02/01/21 08:29 Warfarin Sodium (Coumadin) 2.5 mg COUMADIN ORAL 01/17/21 17:00 01/17/21 20:00 Renetta Gomez M.D. Jan 17, 2021 09:01
--- NOTE | 2021-01-17 10:58 | Surgery Progress Note ---
Surgery Progress Note Subjective Additional Comments Patient seen exam bedside. Prone position. All support identified checked and ensured to be in place. Labs noted imaging reviewed. Ill-appearing prognosis guarded Objective Last 24 Hour Vital Signs Date Time Temp Pulse Resp B/P (MAP) Pulse Ox O2 Delivery O2 Flow Rate FiO2 01/17/21 10:35 70 22 60 01/17/21 09:00 67 22 111/70 (84) 98 01/17/21 08:30 69 22 111/66 (81) 98 01/17/21 08:00 60 01/17/21 08:00 100.3 72 22 110/67 (81) 98 01/17/21 07:30 72 22 103/64 (77) 98 01/17/21 07:00 72 22 108/64 (79) 98 01/17/21 06:57 22 101/58 Mechanical Ventilator 60 01/17/21 06:30 72 22 113/65 (81) 98 01/17/21 06:15 68 22 113/69 (84) 98 01/17/21 06:00 99.3 69 22 112/66 (81) 98 01/17/21 06:00 22 105/56 Mechanical Ventilator 60 01/17/21 06:00 22 105/56 Mechanical Ventilator 60 01/17/21 05:45 68 22 111/69 (83) 98 01/17/21 05:30 69 22 115/69 (84) 98 01/17/21 05:15 69 22 114/67 (83) 98 01/17/21 05:00 69 22 112/70 (84) 97 01/17/21 05:00 22 112/65 Mechanical Ventilator 60 01/17/21 05:00 22 112/65 Mechanical Ventilator 60 01/17/21 04:45 69 22 112/67 (82) 97 01/17/21 04:30 68 22 109/64 (79) 97 01/17/21 04:15 71 22 108/64 (79) 97 01/17/21 04:00 99.2 71 22 107/65 (79) 96 01/17/21 04:00 22 114/67 Mechanical Ventilator 60 01/17/21 04:00 22 114/67 Mechanical Ventilator 60 01/17/21 04:00 Mechanical Ventilator 01/17/21 04:00 74 01/17/21 04:00 60 01/17/21 03:30 75 22 106/67 (80) 97 01/17/21 03:30 22 112/68 Mechanical Ventilator 60 01/17/21 03:30 22 112/68 Mechanical Ventilator 60 01/17/21 03:00 72 22 110/69 (83) 97 01/17/21 03:00 22 110/68 Mechanical Ventilator 60 01/17/21 03:00 22 110/68 Mechanical Ventilator 60 01/17/21 03:00 79 22 60 01/17/21 02:30 65 22 116/76 (89) 96 01/17/21 02:00 69 22 115/71 (86) 96 01/17/21 02:00 22 101/65 Mechanical Ventilator 60 01/17/21 02:00 22 101/65 Mechanical Ventilator 60 01/17/21 01:30 74 22 116/72 (87) 96 01/17/21 01:00 22 101/58 Mechanical Ventilator 60 01/17/21 01:00 22 101/58 Mechanical Ventilator 60 01/17/21 01:00 91 13 103/59 (74) 97 01/17/21 00:30 73 22 100/64 (76) 97 01/17/21 00:00 68 01/17/21 00:00 99.3 72 22 104/70 (81) 96 01/17/21 00:00 22 98/63 Mechanical Ventilator 60 01/17/21 00:00 22 98/63 Mechanical Ventilator 60 01/17/21 00:00 Mechanical Ventilator 01/16/21 23:30 69 22 101/64 (76) 96 01/16/21 23:02 69 22 60 01/16/21 23:00 70 22 98/64 (75) 96 01/16/21 23:00 22 101/64 Mechanical Ventilator 60 01/16/21 23:00 22 93/64 Mechanical Ventilator 60 01/16/21 22:30 71 22 93/64 (74) 95 01/16/21 22:00 74 22 93/57 (69) 95 01/16/21 22:00 22 102/68 Mechanical Ventilator 60 01/16/21 22:00 22 102/68 Mechanical Ventilator 60 01/16/21 21:30 78 21 102/68 (79) 95 01/16/21 21:00 75 22 88/47 (61) 96 01/16/21 21:00 22 86/51 Mechanical Ventilator 30 01/16/21 21:00 22 86/51 Mechanical Ventilator 60 01/16/21 20:30 73 22 86/51 (63) 97 01/16/21 20:00 Mechanical Ventilator 01/16/21 20:00 99.6 69 22 94/58 (70) 96 01/16/21 20:00 66 01/16/21 20:00 22 97/65 Mechanical Ventilator 60 01/16/21 20:00 2 97/65 Mechanical Ventilator 60 01/16/21 20:00 60 01/16/21 19:30 65 22 97/65 (76) 96 01/16/21 19:27 66 22 60 01/16/21 19:00 65 22 97/67 (77) 96 01/16/21 19:00 22 97/67 Mechanical Ventilator 60 01/16/21 19:00 22 97/67 Mechanical Ventilator 60 01/16/21 18:00 65 22 96/65 (75) 96 01/16/21 18:00 22 95/65 Mechanical Ventilator 60 01/16/21 18:00 22 96/65 Mechanical Ventilator 60 01/16/21 17:30 65 22 100/67 (78) 96 01/16/21 17:00 22 99/63 Mechanical Ventilator 22 01/16/21 17:00 22 99/63 Mechanical Ventilator 60 01/16/21 17:00 66 22 99/63 (75) 96 01/16/21 16:30 66 22 97/63 (74) 96 01/16/21 16:00 60 01/16/21 16:00 66 01/16/21 16:00 22 100/68 Mechanical Ventilator 60 01/16/21 16:00 22 100/68 Mechanical Ventilator 60 01/16/21 16:00 Mechanical Ventilator 01/16/21 16:00 99.4 65 22 100/68 (79) 95 01/16/21 15:22 71 22 60 01/16/21 15:00 22 118/78 Mechanical Ventilator 60 01/16/21 15:00 22 118/78 Mechanical Ventilator 60 01/16/21 15:00 22 118/78 Mechanical Ventilator 60 01/16/21 15:00 22 118/78 Mechanical Ventilator 60 01/16/21 15:00 70 22 118/78 (91) 99 01/16/21 14:30 22 119/80 Mechanical Ventilator 60 01/16/21 14:00 68 22 119/80 (93) 98 01/16/21 14:00 22 119/80 Mechanical Ventilator 60 01/16/21 14:00 22 119/80 Mechanical Ventilator 60 01/16/21 13:59 22 118/80 Mechanical Ventilator 60 01/16/21 13:00 22 119/77 Mechanical Ventilator 60 01/16/21 13:00 22 119/77 Mechanical Ventilator 60 01/16/21 13:00 70 22 119/77 (91) 99 01/16/21 12:00 99.2 72 22 126/85 (99) 99 01/16/21 12:00 81 01/16/21 12:00 22 126/85 Mechanical Ventilator 60 01/16/21 12:00 22 126/85 Mechanical Ventilator 60 01/16/21 12:00 Mechanical Ventilator 01/16/21 12:00 60 01/16/21 11:08 72 22 60 01/16/21 11:00 22 128/85 Mechanical Ventilator 60 01/16/21 11:00 22 128/85 Mechanical Ventilator 60 01/16/21 11:00 69 22 128/85 (99) 99 I&O Intake and Output 01/16/21 01/17/21 19:00 07:00 Intake Total 1673.5 ml 1282 ml Output Total 1225 ml 1235 ml Balance 448.5 ml 47 ml Free Water 150 ml IV Total 1363.5 ml 922 ml Tube Feeding 150 ml 210 ml Other 160 ml Output Urine Total 1225 ml 1235 ml Dressing: saturated Cardiovascular: RSR Respiratory: decreased breath sounds Abdomen: soft, non-tender, present bowel sounds, non-distended Extremities: no tenderness, no cyanosis Laboratory Tests Test 01/16/21 16:34 01/17/21 00:39 01/17/21 02:18 01/17/21 06:15 POC Whole Blood Glucose 257 MG/DL (74-106) H Pending 270 MG/DL (74-106) H White Blood Count 8.9 K/UL (4.8-10.8) Red Blood Count 4.16 M/UL (4.70-6.10) L Hemoglobin 12.0 G/DL (14.2-18.0) L Hematocrit 38.5 % (42.0-52.0) L Mean Corpuscular Volume 92 FL (80-99) Mean Corpuscular Hemoglobin 28.9 PG (27.0-31.0) Mean Corpuscular Hemoglobin Concent 31.2 G/DL (32.0-36.0) L Red Cell Distribution Width 14.1 % (11.6-14.8) Platelet Count 181 K/UL (150-450) Mean Platelet Volume 8.8 FL (6.5-10.1) Neutrophils (%) (Auto) 83.5 % (45.0-75.0) H Lymphocytes (%) (Auto) 12.0 % (20.0-45.0) L Monocytes (%) (Auto) 3.8 % (1.0-10.0) Eosinophils (%) (Auto) 0.2 % (0.0-3.0) Basophils (%) (Auto) 0.5 % (0.0-2.0) Prothrombin Time 20.8 SEC (9.30-11.50) H Prothromb Time International Ratio 2.0 (0.9-1.1) H Sodium Level 142 MMOL/L (136-145) Potassium Level 4.6 MMOL/L (3.5-5.1) Chloride Level 109 MMOL/L (98-107) H Carbon Dioxide Level 24 MMOL/L (21-32) Anion Gap 9 mmol/L (5-15) Blood Urea Nitrogen 19 mg/dL (7-18) H Creatinine 0.8 MG/DL (0.55-1.30) Estimat Glomerular Filtration Rate > 60 mL/min (>60) Glucose Level 290 MG/DL (74-106) H Calcium Level 8.2 MG/DL (8.5-10.1) L Phosphorus Level 3.4 MG/DL (2.5-4.9) Magnesium Level 2.2 MG/DL (1.8-2.4) Total Bilirubin 0.5 MG/DL (0.2-1.0) Aspartate Amino Transf (AST/SGOT) 17 U/L (15-37) Alanine Aminotransferase (ALT/SGPT) 27 U/L (12-78) Alkaline Phosphatase 49 U/L (46-116) C-Reactive Protein, Quantitative 3.3 mg/dL (0.00-0.90) H Pro-B-Type Natriuretic Peptide 165 pg/mL (0-125) H Total Protein 5.8 G/DL (6.4-8.2) L Albumin 1.8 G/DL (3.4-5.0) L Globulin 4.0 g/dL Albumin/Globulin Ratio 0.4 (1.0-2.7) L Plan Problems: (1) COPD (chronic obstructive pulmonary disease) (2) Essential hypertension (3) Schizophrenia (4) Obesity (5) Diabetes mellitus type 2 in obese (6) History of hydrocephalus (7) Anticoagulant long-term use (8) Bipolar 1 disorder (9) History of deep venous thrombosis or pulmonary embolus (10) Acute hypercapnic respiratory failure (11) Sepsis Assessment & Plan: 60-year-old male Covid positive respiratory insufficiency and severe decline being prone intubated on vent support labs noted septic ill- appearing has been developing wound around the face from ET tube.Receiv ed report from [facility] pt is being proned and was observed to have developed a blood blister under vent tape on L cheek and L earlobe. Skin assessed and pt was observed to have a blood blister that is 50% de-capped,50% intact. Intact Blood Blister noted to L earlobe. Skin Barrier applied to affected areas. Optifoam Thin foam placed between vent anchor and pt's skin. Optifoam thin placed to R cheek under Vent tape, on Bridge of nose and both earlobes. Given patient's critical status current care plan and findings nutritional optimization is strongly encouraged Covid nutrition plan initiated. All Covid precautions are being taken. Imaging reviewed. Will follow with care plan. Thank you [facility] participation care Nd.Plan: Maintain Optifoam Thin foam to R and L cheeks,Bridge of Nose and Both Ears . Change every 7 days and prn.( May request Optifoam Thin from [facility] dept). APM/PEPE Mattress overlay DAILY ESTIMATED NEEDS: Needs based on Critical care, pulmonary, obese 73.7kg abw 22-28 kcals/kg 3440-0568 total kcals 1.2-2 g protein/kg 88-147 g total protein 25-30 mL/kg 9851-9867 total fluid mLs NUTRITION DIAGNOSIS: Altered nutrition related lab values r/t steroidal meds, clinical status as evidenced by febrile on adm (102.5), elevated BG (270 287) on solumedrol, elevated lipid panel (Triglycerides 333, Chol 370, LDL 150). CURRENT TF:Vital @30ml/hr, now Nepro @30 ENTERAL NUTRITION RECOMMENDATIONS: NEPRO @30ml/hr while supine to provide x8 hrs feeds: 360ml, 648 kcal, 29g pro, 262ml free H2O - Feed at rate best tolerated, currently not meeting est needs d/t proning and aspiration risk w/ supine feeds limited to 8hrs/day. - W/ reduced aspiration risk rec feedings to total Volume of 900ml/day of Nepro as medically able. - Monitor tolerance, position/HOB >30 degrees, hemodynamic stability and ability to increase to meet est kcal and pro needs. - With increase pressor support, rec trophic feeds of 10ml/hr for gut integrity. - When tolerating TF at goal add Prosource BID to better meet est pro needs. ADDITIONAL RECOMMENDATIONS: 1) Now intubated, TF recs above when off proning (8hrs feeds) 2) Obtain calibrated bedscale wts 3) HgA1C/ elevated BG Need for niss while on D5 4) Lytes daily; replete as needed 5) Monitor triglycerides, TF tolerance, hemodynamic stability. (12) Respiratory failure with hypoxia (13) Pneumonia due to COVID-19 virus (14) Hyperkalemia (15) DMII (diabetes mellitus, type 2) Ki Strong Jan 17, 2021 10:58
--- NOTE | 2021-01-17 12:32 | Nephrology Progress Note ---
Assessment/Plan Problem List: (1) Hyperkalemia (2) Pneumonia due to COVID-19 virus (3) Respiratory failure with hypoxia (4) Obesity (5) Schizophrenia (6) DMII (diabetes mellitus, type 2) Assessment Hyperkalemia Stable renal parameters Hyperglycemia Covid pneumonia due to COVID-19 virus Acute respiratory failure with hypoxia requiring mechanical ventilation History of COPD History of DVT, pulmonary emboli Obese Hypertension History of diabetes Psych condition, schizophrenia, bipolar disease Plan January 17: Full code. Intubated on ventilator. FiO2 remains at 60%. Labs reviewed. Renal parameters stable. January 16: Full code. Intubated. Labs reviewed. Renal parameters stable. FiO2 60%. Continue per consultants. January 15: Patient remains intubated and full code. Labs reviewed. Stable renal parameters. January 14: Patient full code. Intubated on ventilator. On prone position until 5 PM. Labs reviewed. Stable from renal standpoint of view. January 13: Labs reviewed. Renal parameters stable. Continue per consultants. Patient remain full code and intubated on ventilator. January 12: Labs reviewed. Renal parameters stable. Patient remains full code. Remains intubated on ventilator and on prone position. Continue per consultants. January 11: Labs reviewed. Renal parameters stable. Continue per consultants. January 10: Labs reviewed. Renal parameters stable. Continue per consultants. Change IV to half-normal saline Kayexalate via NG tube for high potassium Monitor electrolytes and renal parameters Per orders, per consultants Subjective ROS Limited/Unobtainable: Yes Objective Objective Last 24 Hour Vital Signs Date Time Temp Pulse Resp B/P (MAP) Pulse Ox O2 Delivery O2 Flow Rate FiO2 01/17/21 12:11 22 118/77 Mechanical Ventilator 60 01/17/21 11:37 22 124/78 Mechanical Ventilator 60 01/17/21 10:35 70 22 60 01/17/21 09:00 67 22 111/70 (84) 98 01/17/21 08:30 69 22 111/66 (81) 98 01/17/21 08:00 60 01/17/21 08:00 100.3 72 22 110/67 (81) 98 01/17/21 08:00 Mechanical Ventilator 01/17/21 07:30 72 22 103/64 (77) 98 01/17/21 07:00 72 22 108/64 (79) 98 01/17/21 06:57 22 101/58 Mechanical Ventilator 60 01/17/21 06:30 72 22 113/65 (81) 98 01/17/21 06:15 68 22 113/69 (84) 98 01/17/21 06:00 99.3 69 22 112/66 (81) 98 01/17/21 06:00 22 105/56 Mechanical Ventilator 60 01/17/21 06:00 22 105/56 Mechanical Ventilator 60 01/17/21 05:45 68 22 111/69 (83) 98 01/17/21 05:30 69 22 115/69 (84) 98 01/17/21 05:15 69 22 114/67 (83) 98 01/17/21 05:00 69 22 112/70 (84) 97 01/17/21 05:00 22 112/65 Mechanical Ventilator 60 01/17/21 05:00 22 112/65 Mechanical Ventilator 60 01/17/21 04:45 69 22 112/67 (82) 97 01/17/21 04:30 68 22 109/64 (79) 97 01/17/21 04:15 71 22 108/64 (79) 97 01/17/21 04:00 99.2 71 22 107/65 (79) 96 01/17/21 04:00 22 114/67 Mechanical Ventilator 60 01/17/21 04:00 22 114/67 Mechanical Ventilator 60 01/17/21 04:00 Mechanical Ventilator 01/17/21 04:00 74 01/17/21 04:00 60 01/17/21 03:30 75 22 106/67 (80) 97 01/17/21 03:30 22 112/68 Mechanical Ventilator 60 01/17/21 03:30 22 112/68 Mechanical Ventilator 60 01/17/21 03:00 72 22 110/69 (83) 97 01/17/21 03:00 22 110/68 Mechanical Ventilator 60 01/17/21 03:00 22 110/68 Mechanical Ventilator 60 01/17/21 03:00 79 22 60 01/17/21 02:30 65 22 116/76 (89) 96 01/17/21 02:00 69 22 115/71 (86) 96 01/17/21 02:00 22 101/65 Mechanical Ventilator 60 01/17/21 02:00 22 101/65 Mechanical Ventilator 60 01/17/21 01:30 74 22 116/72 (87) 96 01/17/21 01:00 22 101/58 Mechanical Ventilator 60 01/17/21 01:00 22 101/58 Mechanical Ventilator 60 01/17/21 01:00 91 13 103/59 (74) 97 01/17/21 00:30 73 22 100/64 (76) 97 01/17/21 00:00 68 01/17/21 00:00 99.3 72 22 104/70 (81) 96 01/17/21 00:00 22 98/63 Mechanical Ventilator 60 01/17/21 00:00 22 98/63 Mechanical Ventilator 60 01/17/21 00:00 Mechanical Ventilator 01/16/21 23:30 69 22 101/64 (76) 96 01/16/21 23:02 69 22 60 01/16/21 23:00 70 22 98/64 (75) 96 01/16/21 23:00 22 101/64 Mechanical Ventilator 60 01/16/21 23:00 22 93/64 Mechanical Ventilator 60 01/16/21 22:30 71 22 93/64 (74) 95 01/16/21 22:00 74 22 93/57 (69) 95 01/16/21 22:00 22 102/68 Mechanical Ventilator 60 01/16/21 22:00 22 102/68 Mechanical Ventilator 60 01/16/21 21:30 78 21 102/68 (79) 95 01/16/21 21:00 75 22 88/47 (61) 96 01/16/21 21:00 22 86/51 Mechanical Ventilator 30 01/16/21 21:00 22 86/51 Mechanical Ventilator 60 01/16/21 20:30 73 22 86/51 (63) 97 01/16/21 20:00 Mechanical Ventilator 01/16/21 20:00 99.6 69 22 94/58 (70) 96 01/16/21 20:00 66 01/16/21 20:00 22 97/65 Mechanical Ventilator 60 01/16/21 20:00 2 97/65 Mechanical Ventilator 60 01/16/21 20:00 60 01/16/21 19:30 65 22 97/65 (76) 96 01/16/21 19:27 66 22 60 01/16/21 19:00 65 22 97/67 (77) 96 01/16/21 19:00 22 97/67 Mechanical Ventilator 60 01/16/21 19:00 22 97/67 Mechanical Ventilator 60 01/16/21 18:00 65 22 96/65 (75) 96 01/16/21 18:00 22 95/65 Mechanical Ventilator 60 01/16/21 18:00 22 96/65 Mechanical Ventilator 60 01/16/21 17:30 65 22 100/67 (78) 96 01/16/21 17:00 22 99/63 Mechanical Ventilator 22 01/16/21 17:00 22 99/63 Mechanical Ventilator 60 01/16/21 17:00 66 22 99/63 (75) 96 01/16/21 16:30 66 22 97/63 (74) 96 01/16/21 16:00 60 01/16/21 16:00 66 01/16/21 16:00 22 100/68 Mechanical Ventilator 60 01/16/21 16:00 22 100/68 Mechanical Ventilator 60 01/16/21 16:00 Mechanical Ventilator 01/16/21 16:00 99.4 65 22 100/68 (79) 95 01/16/21 15:22 71 22 60 01/16/21 15:00 22 118/78 Mechanical Ventilator 60 01/16/21 15:00 22 118/78 Mechanical Ventilator 60 01/16/21 15:00 22 118/78 Mechanical Ventilator 60 01/16/21 15:00 22 118/78 Mechanical Ventilator 60 01/16/21 15:00 70 22 118/78 (91) 99 01/16/21 14:30 22 119/80 Mechanical Ventilator 60 01/16/21 14:00 68 22 119/80 (93) 98 01/16/21 14:00 22 119/80 Mechanical Ventilator 60 01/16/21 14:00 22 119/80 Mechanical Ventilator 60 01/16/21 13:59 22 118/80 Mechanical Ventilator 60 01/16/21 13:00 22 119/77 Mechanical Ventilator 60 01/16/21 13:00 22 119/77 Mechanical Ventilator 60 01/16/21 13:00 70 22 119/77 (91) 99 Intake and Output 01/16/21 01/17/21 19:00 07:00 Intake Total 1673.5 ml 1282 ml Output Total 1225 ml 1235 ml Balance 448.5 ml 47 ml Free Water 150 ml IV Total 1363.5 ml 922 ml Tube Feeding 150 ml 210 ml Other 160 ml Output Urine Total 1225 ml 1235 ml Current Medications Medications (Trade) Dose Ordered Sig/Johnny Route PRN Reason Start Time Stop Time Status Last Admin Dose Admin Acetaminophen (Tylenol) 650 mg Q6H PRN NG Temp >100.5 01/09/21 09:15 02/08/21 09:14 01/14/21 21:28 Acetaminophen (Tylenol) 650 mg Q6H PRN NG Mild Pain (Pain Scale 1-3) 01/09/21 09:15 02/08/21 09:14 Albuterol Sulfate (Proventil MDI) 2 puff Q6HRT INH 01/02/21 19:00 04/02/21 18:59 01/17/21 07:40 Benztropine Mesylate (Cogentin) 1 mg EVERY 12 HOURS NG 01/09/21 09:15 02/01/21 09:14 01/17/21 08:41 Chlorhexidine Gluconate (Myranda-Hex 2%) 1 applic DAILY@2000 TOPIC 01/12/21 20:00 04/12/21 19:59 01/16/21 20:58 Dextrose (Dextrose 50%) 25 ml Q30M PRN IV Hypoglycemia 01/06/21 23:45 04/06/21 23:44 Dextrose (Dextrose 50%) 50 ml Q30M PRN IV Hypoglycemia 01/06/21 23:45 04/06/21 23:44 Divalproex Sodium (Depakote Sprinkles) 500 mg Q12HR GT 01/13/21 21:00 02/12/21 20:59 01/17/21 08:42 Fentanyl Citrate 250 ml @ 0 mls/hr Q24H IV 01/16/21 06:00 01/18/21 05:59 01/17/21 11:37 Insulin Aspart (NovoLOG) EVERY 6 HOURS SUBQ 01/09/21 12:00 04/04/21 16:29 01/17/21 11:35 Ipratropium [place] (Atrovent Inh) 1 puffs Q6HRT INH 01/02/21 19:00 02/01/21 18:59 01/17/21 07:40 Lansoprazole (Prevacid) 30 mg DAILY GT 01/16/21 09:00 02/15/21 08:59 01/17/21 08:42 Methylprednisolone Sodium Succinate (Solu-MEDROL) 20 mg EVERY 12 HOURS IVP 01/17/21 21:00 04/16/21 20:59 Midazolam HCl 200 ml @ 0 mls/hr Q24H PRN IV Agitation (RASS -2) 01/17/21 00:00 01/24/21 00:00 01/17/21 12:11 Ondansetron HCl (Zofran) 4 mg Q4H PRN IVP Nausea & Vomiting 01/02/21 08:15 02/01/21 08:14 Piperacillin Sod/ Tazobactam Sod 3.375 gm/Sodium Chloride 110 ml @ 27.5 mls/hr EVERY 8 HOURS IVPB 01/13/21 14:00 01/20/21 13:59 01/17/21 06:24 Sodium Chloride 1,000 ml @ 75 mls/hr [id number] IV 01/08/21 11:00 02/07/21 10:59 01/17/21 03:00 Warfarin Sodium (Coumadin per pharmacy) 1 ea DAILY PRN MISC Per rx protocol 01/02/21 08:30 02/01/21 08:29 Warfarin Sodium (Coumadin) 2.5 mg COUMADIN ORAL 01/17/21 17:00 01/17/21 20:00 Laboratory Tests 01/16/21 16:34: POC Whole Blood Glucose 257H 01/17/21 00:39: POC Whole Blood Glucose [Pending] 01/17/21 02:18: White Blood Count 8.9, Red Blood Count 4.16L, Hemoglobin 12.0L, Hematocrit 38.5L , Mean Corpuscular Volume 92, Mean Corpuscular Hemoglobin 28.9, Mean Corpuscular Hemoglobin Concent 31.2L, Red Cell Distribution Width 14.1, Platelet Count 181, Mean Platelet Volume 8.8, Neutrophils (%) (Auto) 83.5H, Lymphocytes (%) (Auto) 12.0L, Monocytes (%) (Auto) 3.8, Eosinophils (%) (Auto) 0.2, Basophils (%) (Auto) 0.5, Prothrombin Time 20.8H, Prothromb Time International Ratio 2.0H, Sodium Level 142, Potassium Level 4.6, Chloride Level 109H, Carbon Dioxide Level 24, Anion Gap 9, Blood Urea Nitrogen 19H, Creatinine 0.8, Estimat Glomerular Filtration Rate > 60, Glucose Level 290H, Calcium Level 8.2L, Phosphorus Level 3.4, Magnesium Level 2.2, Total Bilirubin 0.5, Aspartate Amino Transf (AST/SGOT) 17, Alanine Aminotransferase (ALT/SGPT) 27, Alkaline Phosphatase 49, C-Reactive Protein, Quantitative 3.3H, Pro-B-Type Natriuretic Peptide 165H, Total Protein 5.8L, Albumin 1.8L, Globulin 4.0, Albumin/Globulin Ratio 0.4L 01/17/21 06:15: POC Whole Blood Glucose 270H 01/17/21 11:27: POC Whole Blood Glucose 250H Height (Feet): 5 Height (Inches): 5.00 Weight (Pounds): 233 General Appearance: no apparent distress EENT: other - Intubated on ventilator Cardiovascular: normal rate Respiratory/Chest: decreased breath sounds Abdomen: distended Avi Frye MD Jan 17, 2021 12:32
--- NOTE | 2021-01-17 14:32 | Internal Med Progress Note ---
Subjective Physician Name Geovanny Bradley Attending Physician Geoavnny Bradley MD Current Medications Medications (Trade) Dose Ordered Sig/Johnny Route PRN Reason Start Time Stop Time Status Last Admin Dose Admin Acetaminophen (Tylenol) 650 mg Q6H PRN NG Temp >100.5 01/09/21 09:15 02/08/21 09:14 01/14/21 21:28 Acetaminophen (Tylenol) 650 mg Q6H PRN NG Mild Pain (Pain Scale 1-3) 01/09/21 09:15 02/08/21 09:14 Albuterol Sulfate (Proventil MDI) 2 puff Q6HRT INH 01/02/21 19:00 04/02/21 18:59 01/17/21 13:40 Benztropine Mesylate (Cogentin) 1 mg EVERY 12 HOURS NG 01/09/21 09:15 02/01/21 09:14 01/17/21 08:41 Chlorhexidine Gluconate (Myranda-Hex 2%) 1 applic DAILY@2000 TOPIC 01/12/21 20:00 04/12/21 19:59 01/16/21 20:58 Dextrose (Dextrose 50%) 25 ml Q30M PRN IV Hypoglycemia 01/06/21 23:45 04/06/21 23:44 Dextrose (Dextrose 50%) 50 ml Q30M PRN IV Hypoglycemia 01/06/21 23:45 04/06/21 23:44 Divalproex Sodium (Depakote Sprinkles) 500 mg Q12HR GT 01/13/21 21:00 02/12/21 20:59 01/17/21 08:42 Fentanyl Citrate 250 ml @ 0 mls/hr Q24H IV 01/16/21 06:00 01/18/21 05:59 01/17/21 11:37 Insulin Aspart (NovoLOG) EVERY 6 HOURS SUBQ 01/09/21 12:00 04/04/21 16:29 01/17/21 11:35 Ipratropium [place] (Atrovent Inh) 1 puffs Q6HRT INH 01/02/21 19:00 02/01/21 18:59 01/17/21 13:40 Lansoprazole (Prevacid) 30 mg DAILY GT 01/16/21 09:00 02/15/21 08:59 01/17/21 08:42 Methylprednisolone Sodium Succinate (Solu-MEDROL) 20 mg EVERY 12 HOURS IVP 01/17/21 21:00 04/16/21 20:59 Midazolam HCl 200 ml @ 0 mls/hr Q24H PRN IV Agitation (RASS -2) 01/17/21 00:00 01/24/21 00:00 01/17/21 12:11 Ondansetron HCl (Zofran) 4 mg Q4H PRN IVP Nausea & Vomiting 01/02/21 08:15 02/01/21 08:14 Piperacillin Sod/ Tazobactam Sod 3.375 gm/Sodium Chloride 110 ml @ 27.5 mls/hr EVERY 8 HOURS IVPB 01/13/21 14:00 01/20/21 13:59 01/17/21 14:26 Sodium Chloride 1,000 ml @ 75 mls/hr [id number] IV 01/08/21 11:00 02/07/21 10:59 01/17/21 03:00 Warfarin Sodium (Coumadin per pharmacy) 1 ea DAILY PRN MISC Per rx protocol 01/02/21 08:30 02/01/21 08:29 Warfarin Sodium (Coumadin) 2.5 mg COUMADIN ORAL 01/17/21 17:00 01/17/21 20:00 Allergies: Coded Allergies: No Known Allergies (Unverified , 01/02/21) Subjective in MICU, intubated, remained on ventilation, in prone position, WBC: 8.9, INR: 2.0. Objective Last Vital Signs Date Time Temp Pulse Resp B/P (MAP) Pulse Ox O2 Delivery O2 Flow Rate FiO2 01/17/21 14:00 61 22 112/73 (86) 98 01/17/21 12:11 Mechanical Ventilator 60 01/17/21 12:00 99.9 01/14/21 03:33 15.0 Laboratory Tests Test 01/16/21 16:34 01/17/21 00:39 01/17/21 02:18 01/17/21 06:15 POC Whole Blood Glucose 257 MG/DL (74-106) H Pending 270 MG/DL (74-106) H White Blood Count 8.9 K/UL (4.8-10.8) Red Blood Count 4.16 M/UL (4.70-6.10) L Hemoglobin 12.0 G/DL (14.2-18.0) L Hematocrit 38.5 % (42.0-52.0) L Mean Corpuscular Volume 92 FL (80-99) Mean Corpuscular Hemoglobin 28.9 PG (27.0-31.0) Mean Corpuscular Hemoglobin Concent 31.2 G/DL (32.0-36.0) L Red Cell Distribution Width 14.1 % (11.6-14.8) Platelet Count 181 K/UL (150-450) Mean Platelet Volume 8.8 FL (6.5-10.1) Neutrophils (%) (Auto) 83.5 % (45.0-75.0) H Lymphocytes (%) (Auto) 12.0 % (20.0-45.0) L Monocytes (%) (Auto) 3.8 % (1.0-10.0) Eosinophils (%) (Auto) 0.2 % (0.0-3.0) Basophils (%) (Auto) 0.5 % (0.0-2.0) Prothrombin Time 20.8 SEC (9.30-11.50) H Prothromb Time International Ratio 2.0 (0.9-1.1) H Sodium Level 142 MMOL/L (136-145) Potassium Level 4.6 MMOL/L (3.5-5.1) Chloride Level 109 MMOL/L (98-107) H Carbon Dioxide Level 24 MMOL/L (21-32) Anion Gap 9 mmol/L (5-15) Blood Urea Nitrogen 19 mg/dL (7-18) H Creatinine 0.8 MG/DL (0.55-1.30) Estimat Glomerular Filtration Rate > 60 mL/min (>60) Glucose Level 290 MG/DL (74-106) H Calcium Level 8.2 MG/DL (8.5-10.1) L Phosphorus Level 3.4 MG/DL (2.5-4.9) Magnesium Level 2.2 MG/DL (1.8-2.4) Total Bilirubin 0.5 MG/DL (0.2-1.0) Aspartate Amino Transf (AST/SGOT) 17 U/L (15-37) Alanine Aminotransferase (ALT/SGPT) 27 U/L (12-78) Alkaline Phosphatase 49 U/L (46-116) C-Reactive Protein, Quantitative 3.3 mg/dL (0.00-0.90) H Pro-B-Type Natriuretic Peptide 165 pg/mL (0-125) H Total Protein 5.8 G/DL (6.4-8.2) L Albumin 1.8 G/DL (3.4-5.0) L Globulin 4.0 g/dL Albumin/Globulin Ratio 0.4 (1.0-2.7) L Test 01/17/21 11:27 POC Whole Blood Glucose 250 MG/DL (74-106) H Intake and Output 01/16/21 01/17/21 19:00 07:00 Intake Total 1673.5 ml 1282 ml Output Total 1225 ml 1235 ml Balance 448.5 ml 47 ml Free Water 150 ml IV Total 1363.5 ml 922 ml Tube Feeding 150 ml 210 ml Other 160 ml Output Urine Total 1225 ml 1235 ml Objective General: intubated, in the prone position, remained on ventilation. HEENT: NCAT, sclera anicteric, PERRL, ET Tube. Neck: Supple, no significant jugular venous distention, Lungs: mechanical breath sounds,,basal crackles, no Wheeze. Heart: Regular rate and rhythm, normal S1/S2, no murmurs Abdomen: soft, nontender, nondistended. Normoactive bowel sound, obesity. : Ferraro cath. Extremities: Left LE: No Cyanosis , clubbing or edema. Right LE AKA. Neuro: limited secondary to patient's status, patient is sedated. Skin: warm, no rashes or lesions. Assessment/Plan Assessment/Plan (1) Pneumonia due to COVID-19 virus ICD Codes: U07.1 - COVID-19; J12.82 - Pneumonia due to coronavirus disease 2019 SNOMED: 910567814888430628 (2) Acute hypercapnic respiratory failure >> intubated 01/06 ICD Codes: J96.02 - Acute respiratory failure with hypercapnia SNOMED: 138792942 (3) Respiratory failure with hypoxia ICD Codes: J96.91 - Respiratory failure, unspecified with hypoxia SNOMED: 23961198351270147 Qualifiers: Qualified Codes: J96.01 - Acute respiratory failure with hypoxia (4) COPD (chronic obstructive pulmonary disease) ICD Codes: J44.9 - Chronic obstructive pulmonary disease, unspecified SNOMED: 09123969 (5) History of deep venous thrombosis or pulmonary embolus SNOMED: 195423677 (6) Obesity ICD Codes: E66.9 - Obesity, unspecified SNOMED: 235289457, 453454991 (7) Essential hypertension ICD Codes: I10 - Essential (primary) hypertension SNOMED: 16683621 (8) Diabetes mellitus type 2 in obese ICD Codes: E11.69 - Type 2 diabetes mellitus with other specified complication; E66.9 - Obesity, unspecified SNOMED: 81704875 (9) History of hydrocephalus ICD Codes: Z86.69 - Personal history of other diseases of the nervous system and sense organs SNOMED: 455164717 (10) Schizophrenia ICD Codes: F20.9 - Schizophrenia, unspecified SNOMED: 61926616 (11) Bipolar 1 disorder ICD Codes: F31.9 - Bipolar disorder, unspecified SNOMED: 323292262 (12) Anticoagulant long-term use ICD Codes: Z79.01 - terminal operator (current) use of anticoagulants SNOMED: 165379289 Assessment/Plan: Optimize pulmonary hygiene/mobilize as tolerated Prone position Completed Remdesivir IV Solu-Medrol 10 mg IV BID Abx: Cont Zosyn #9/10 given critical illness F/U Cx's Monitor volumes and renal function DVT Px: Coumadin Monitor blood glucose level closely. FULL Code Geovanny Bradley MD Jan 17, 2021 14:32
[2021-01-17] MEDS ORDERED: Warfarin Sodium 2.5mg ORAL SCH (17:00)
[2021-01-17] MEDS ORDERED: 1/2 NS 1000ml IV ONE (18:12)
[2021-01-17] MEDS ORDERED: Tubing IV Secondary IV ONE (18:12)
[2021-01-17] MEDS ORDERED: NS 275ml ONE (18:12)
[2021-01-17] MEDS: Dyna-Hex 2% Top Sol 2oz TOPIC SCH (19:55)
--- NOTE | 2021-01-17 22:40 | Pulmonology Progress Note ---
Subjective ROS Limited/Unobtainable: Yes Allergies: Coded Allergies: No Known Allergies (Unverified , 01/02/21) Objective Last 24 Hour Vital Signs Date Time Temp Pulse Resp B/P (MAP) Pulse Ox O2 Delivery O2 Flow Rate FiO2 01/17/21 21:45 67 16 110/74 (86) 95 01/17/21 21:30 69 18 110/67 (81) 95 01/17/21 21:15 71 14 109/71 (84) 95 01/17/21 21:00 72 22 135/103 (114) 95 01/17/21 20:45 79 22 100/57 (71) 96 01/17/21 20:30 70 21 100/60 (73) 94 01/17/21 20:15 68 22 104/64 (77) 94 01/17/21 20:00 Mechanical Ventilator 01/17/21 20:00 99.9 68 21 106/66 (79) 94 01/17/21 20:00 45 01/17/21 19:45 68 21 109/69 (82) 94 01/17/21 19:30 66 13 109/71 (84) 95 01/17/21 19:15 67 0 108/69 (82) 95 01/17/21 19:10 66 22 60 01/17/21 19:00 22 109/61 Mechanical Ventilator 45 01/17/21 19:00 22 109/61 Mechanical Ventilator 45 01/17/21 19:00 66 4 108/71 (83) 95 01/17/21 18:42 22 110/67 Mechanical Ventilator 45 01/17/21 18:30 67 9 110/67 (81) 95 01/17/21 18:00 65 6 112/70 (84) 95 01/17/21 18:00 22 112/70 Mechanical Ventilator 45 01/17/21 18:00 14 112/70 Mechanical Ventilator 45 01/17/21 17:30 63 18 109/73 (85) 95 01/17/21 17:00 63 16 107/68 (81) 94 01/17/21 17:00 22 109/71 Mechanical Ventilator 45 01/17/21 17:00 22 109/71 Mechanical Ventilator 45 01/17/21 16:30 65 20 110/71 (84) 94 01/17/21 16:15 45 01/17/21 16:00 99.9 67 20 110/73 (85) 96 01/17/21 16:00 60 01/17/21 16:00 66 01/17/21 16:00 67 22 112/74 (87) 94 01/17/21 16:00 22 112/74 Mechanical Ventilator 45 01/17/21 16:00 22 112/74 Mechanical Ventilator 60 01/17/21 16:00 Mechanical Ventilator 01/17/21 15:30 61 22 113/74 (87) 98 01/17/21 15:30 66 22 113/74 (87) 94 01/17/21 15:00 62 22 111/71 (84) 98 01/17/21 15:00 22 111/71 60 01/17/21 15:00 22 111/71 Mechanical Ventilator 60 01/17/21 15:00 67 22 110/74 (86) 94 01/17/21 14:30 62 22 115/70 (85) 98 01/17/21 14:30 59 22 60 01/17/21 14:30 66 19 112/74 (87) 93 01/17/21 14:00 61 22 112/73 (86) 98 01/17/21 14:00 22 116/70 Mechanical Ventilator 60 01/17/21 14:00 22 116/70 Mechanical Ventilator 60 01/17/21 13:30 65 22 115/72 (86) 98 01/17/21 13:00 63 22 112/73 (86) 98 01/17/21 13:00 22 117/75 Mechanical Ventilator 60 01/17/21 13:00 22 117/75 Mechanical Ventilator 60 01/17/21 12:30 64 22 120/75 (90) 98 01/17/21 12:11 22 118/77 Mechanical Ventilator 60 01/17/21 12:00 99.9 63 22 118/77 (91) 98 01/17/21 12:00 60 01/17/21 12:00 22 118/77 Mechanical Ventilator 60 01/17/21 12:00 22 118/77 Mechanical Ventilator 60 01/17/21 12:00 63 01/17/21 12:00 Mechanical Ventilator 01/17/21 11:37 22 124/78 Mechanical Ventilator 60 01/17/21 11:30 65 22 124/78 (93) 98 01/17/21 11:00 69 21 128/81 (97) 99 01/17/21 11:00 22 128/81 Mechanical Ventilator 60 01/17/21 11:00 22 128/81 Mechanical Ventilator 60 01/17/21 10:35 70 22 60 01/17/21 10:30 62 22 123/77 (92) 98 01/17/21 10:00 22 119/75 Mechanical Ventilator 60 01/17/21 10:00 22 119/75 Mechanical Ventilator 60 01/17/21 10:00 63 22 119/75 (90) 98 01/17/21 09:30 67 22 118/72 (87) 98 01/17/21 09:00 67 22 111/70 (84) 98 01/17/21 09:00 22 111/70 Mechanical Ventilator 60 01/17/21 09:00 22 111/70 Mechanical Ventilator 22 01/17/21 08:30 69 22 111/66 (81) 98 01/17/21 08:00 60 01/17/21 08:00 71 01/17/21 08:00 22 110/67 Mechanical Ventilator 60 01/17/21 08:00 22 110/67 01/17/21 08:00 100.3 72 22 110/67 (81) 98 01/17/21 08:00 Mechanical Ventilator 01/17/21 07:50 73 26 60 01/17/21 07:30 72 22 103/64 (77) 98 01/17/21 07:00 72 22 108/64 (79) 98 01/17/21 07:00 22 108/64 Mechanical Ventilator 60 01/17/21 07:00 22 108/64 Mechanical Ventilator 60 01/17/21 06:57 22 101/58 Mechanical Ventilator 60 01/17/21 06:30 72 22 113/65 (81) 98 01/17/21 06:15 68 22 113/69 (84) 98 01/17/21 06:00 99.3 69 22 112/66 (81) 98 01/17/21 06:00 22 105/56 Mechanical Ventilator 60 01/17/21 06:00 22 105/56 Mechanical Ventilator 60 01/17/21 05:45 68 22 111/69 (83) 98 01/17/21 05:30 69 22 115/69 (84) 98 01/17/21 05:15 69 22 114/67 (83) 98 01/17/21 05:00 69 22 112/70 (84) 97 01/17/21 05:00 22 112/65 Mechanical Ventilator 60 01/17/21 05:00 22 112/65 Mechanical Ventilator 60 01/17/21 04:45 69 22 112/67 (82) 97 01/17/21 04:30 68 22 109/64 (79) 97 01/17/21 04:15 71 22 108/64 (79) 97 01/17/21 04:00 99.2 71 22 107/65 (79) 96 01/17/21 04:00 22 114/67 Mechanical Ventilator 60 01/17/21 04:00 22 114/67 Mechanical Ventilator 60 01/17/21 04:00 Mechanical Ventilator 01/17/21 04:00 74 01/17/21 04:00 60 01/17/21 03:30 75 22 106/67 (80) 97 01/17/21 03:30 22 112/68 Mechanical Ventilator 60 01/17/21 03:30 22 112/68 Mechanical Ventilator 60 01/17/21 03:00 72 22 110/69 (83) 97 01/17/21 03:00 22 110/68 Mechanical Ventilator 60 01/17/21 03:00 22 110/68 Mechanical Ventilator 60 01/17/21 03:00 79 22 60 01/17/21 02:30 65 22 116/76 (89) 96 01/17/21 02:00 69 22 115/71 (86) 96 01/17/21 02:00 22 101/65 Mechanical Ventilator 60 01/17/21 02:00 22 101/65 Mechanical Ventilator 60 01/17/21 01:30 74 22 116/72 (87) 96 01/17/21 01:00 22 101/58 Mechanical Ventilator 60 01/17/21 01:00 22 101/58 Mechanical Ventilator 60 01/17/21 01:00 91 13 103/59 (74) 97 01/17/21 00:30 73 22 100/64 (76) 97 01/17/21 00:00 68 01/17/21 00:00 99.3 72 22 104/70 (81) 96 01/17/21 00:00 22 98/63 Mechanical Ventilator 60 01/17/21 00:00 22 98/63 Mechanical Ventilator 60 01/17/21 00:00 Mechanical Ventilator 01/16/21 23:30 69 22 101/64 (76) 96 01/16/21 23:02 69 22 60 01/16/21 23:00 70 22 98/64 (75) 96 01/16/21 23:00 22 101/64 Mechanical Ventilator 60 01/16/21 23:00 22 93/64 Mechanical Ventilator 60 Intake and Output 01/16/21 01/17/21 19:00 07:00 Intake Total 1673.5 ml 1282 ml Output Total 1225 ml 1235 ml Balance 448.5 ml 47 ml Free Water 150 ml IV Total 1363.5 ml 922 ml Tube Feeding 150 ml 210 ml Other 160 ml Output Urine Total 1225 ml 1235 ml Laboratory Tests 01/17/21 00:39: POC Whole Blood Glucose [Pending] 01/17/21 02:18: White Blood Count 8.9, Red Blood Count 4.16L, Hemoglobin 12.0L, Hematocrit 38.5L , Mean Corpuscular Volume 92, Mean Corpuscular Hemoglobin 28.9, Mean Corpuscular Hemoglobin Concent 31.2L, Red Cell Distribution Width 14.1, Platelet Count 181, Mean Platelet Volume 8.8, Neutrophils (%) (Auto) 83.5H, Lymphocytes (%) (Auto) 12.0L, Monocytes (%) (Auto) 3.8, Eosinophils (%) (Auto) 0.2, Basophils (%) (Auto) 0.5, Prothrombin Time 20.8H, Prothromb Time International Ratio 2.0H, Sodium Level 142, Potassium Level 4.6, Chloride Level 109H, Carbon Dioxide Level 24, Anion Gap 9, Blood Urea Nitrogen 19H, Creatinine 0.8, Estimat Glomerular Filtration Rate > 60, Glucose Level 290H, Calcium Level 8.2L, Phosphorus Level 3.4, Magnesium Level 2.2, Total Bilirubin 0.5, Aspartate Amino Transf (AST/SGOT) 17, Alanine Aminotransferase (ALT/SGPT) 27, Alkaline Phosphatase 49, C-Reactive Protein, Quantitative 3.3H, Pro-B-Type Natriuretic Peptide 165H, Total Protein 5.8L, Albumin 1.8L, Globulin 4.0, Albumin/Globulin Ratio 0.4L 01/17/21 06:15: POC Whole Blood Glucose 270H 01/17/21 11:27: POC Whole Blood Glucose 250H Current Medications Medications (Trade) Dose Ordered Sig/Johnny Route PRN Reason Start Time Stop Time Status Last Admin Dose Admin Acetaminophen (Tylenol) 650 mg Q6H PRN NG Temp >100.5 01/09/21 09:15 02/08/21 09:14 01/14/21 21:28 Acetaminophen (Tylenol) 650 mg Q6H PRN NG Mild Pain (Pain Scale 1-3) 01/09/21 09:15 02/08/21 09:14 Albuterol Sulfate (Proventil MDI) 2 puff Q6HRT INH 01/02/21 19:00 04/02/21 18:59 01/17/21 19:00 Benztropine Mesylate (Cogentin) 1 mg EVERY 12 HOURS NG 01/09/21 09:15 02/01/21 09:14 01/17/21 19:56 Chlorhexidine Gluconate (Myranda-Hex 2%) 1 applic DAILY@2000 TOPIC 01/12/21 20:00 04/12/21 19:59 01/17/21 19:55 Dextrose (Dextrose 50%) 25 ml Q30M PRN IV Hypoglycemia 01/06/21 23:45 04/06/21 23:44 Dextrose (Dextrose 50%) 50 ml Q30M PRN IV Hypoglycemia 01/06/21 23:45 04/06/21 23:44 Divalproex Sodium (Depakote Sprinkles) 500 mg Q12HR GT 01/13/21 21:00 02/12/21 20:59 01/17/21 19:56 Fentanyl Citrate 250 ml @ 0 mls/hr Q24H IV 01/16/21 06:00 01/18/21 01:59 01/17/21 11:37 Fentanyl Citrate 250 ml @ 1 mls/hr Q24H IV 01/18/21 02:00 01/20/21 01:59 Insulin Aspart (NovoLOG) EVERY 6 HOURS SUBQ 01/09/21 12:00 04/04/21 16:29 01/17/21 18:55 Ipratropium [place] (Atrovent Inh) 1 puffs Q6HRT INH 01/02/21 19:00 02/01/21 18:59 01/17/21 19:00 Lansoprazole (Prevacid) 30 mg DAILY GT 01/16/21 09:00 02/15/21 08:59 01/17/21 08:42 Methylprednisolone Sodium Succinate (Solu-MEDROL) 20 mg EVERY 12 HOURS IVP 01/17/21 21:00 04/16/21 20:59 01/17/21 20:06 Midazolam HCl 200 ml @ 0 mls/hr Q24H PRN IV Agitation (RASS -2) 01/17/21 00:00 01/24/21 00:00 01/17/21 18:42 Ondansetron HCl (Zofran) 4 mg Q4H PRN IVP Nausea & Vomiting 01/02/21 08:15 02/01/21 08:14 Piperacillin Sod/ Tazobactam Sod 3.375 gm/Sodium Chloride 110 ml @ 27.5 mls/hr EVERY 8 HOURS IVPB 01/13/21 14:00 01/20/21 13:59 01/17/21 21:54 Sodium Chloride 1,000 ml @ 75 mls/hr [id number] IV 01/08/21 11:00 02/07/21 10:59 01/17/21 18:40 Warfarin Sodium (Coumadin per pharmacy) 1 ea DAILY PRN MISC Per rx protocol 01/02/21 08:30 02/01/21 08:29 Assessment/Plan Assessment/Plan Pulmonary CCM Progress Note HPI Patient is a 60 man with prior h/o COPD, CPS/bipolar DO, 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 ID following and started on CTx/Azithro + REM + SM, CXR with bilateral infiltrates,ETT appropriate. 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, NHR, DM2, HTN and hydrocephalus Physical Exam Deferred Covid19 Vital Signs noted Laboratory Tests noted Imaging noted Height (Feet): 5 Height (Inches): 5.00 Weight (Pounds): 233 Medications Medications noted Assessment/Plan Problem List: (1) Pneumonia due to COVID-19 virus ICD Codes: U07.1 - COVID-19; J12.82 - Pneumonia due to coronavirus disease 2019 SNOMED: 783190246631934921 (2) Acute hypercapnic respiratory failure ICD Codes: J96.02 - Acute respiratory failure with hypercapnia SNOMED: 759298716 (3) Respiratory failure with hypoxia ICD Codes: J96.91 - Respiratory failure, unspecified with hypoxia SNOMED: 29369121241459209 Qualifiers: Qualified Codes: J96.01 - Acute respiratory failure with hypoxia (4) COPD (chronic obstructive pulmonary disease) ICD Codes: J44.9 - Chronic obstructive pulmonary disease, unspecified SNOMED: 85101691 (5) History of deep venous thrombosis or pulmonary embolus SNOMED: 658018305 (6) Obesity ICD Codes: E66.9 - Obesity, unspecified SNOMED: 846686519, 308530329 (7) Essential hypertension ICD Codes: I10 - Essential (primary) hypertension SNOMED: 12684193 (8) Diabetes mellitus type 2 in obese ICD Codes: E11.69 - Type 2 diabetes mellitus with other specified complication; E66.9 - Obesity, unspecified SNOMED: 93154337 (9) History of hydrocephalus ICD Codes: Z86.69 - Personal history of other diseases of the nervous system and sense organs SNOMED: 251440797 (10) Schizophrenia ICD Codes: F20.9 - Schizophrenia, unspecified SNOMED: 89441662 (11) Bipolar 1 disorder ICD Codes: F31.9 - Bipolar disorder, unspecified SNOMED: 205161036 (12) Anticoagulant long-term use ICD 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
[2021-01-18] VITALS (69 sets, daily range): BP systolic 84–133; BP diastolic 47–89
[2021-01-18] MEDS: NovoLOG Insulin Flexpen SUBQ SCH ×4 (00:20→18:35)
[2021-01-18] MEDS: fentaNYL 2500mcg/NS 250ml 250 ML IV SCH ×3 (00:23→21:58)
[2021-01-18] MEDS: Albuterol 90mcg Inhaler 8gm INH SCH ×4 (01:00→19:41)
[2021-01-18] MEDS: Ipratropium Bromide Inhaler INH SCH ×4 (01:00→19:41)
[2021-01-18] MEDS: Versed 100mg/NS 200ml 200 ML IV PRN ×3 (04:13→14:22)
[2021-01-18 05:35] LABS: INR 2.3 (0.9-1.1)
[2021-01-18] MEDS: Piperacillin/Tazobactam 3.375 GM in NS 110 ML IVPB SCH ×3 (06:00→22:35)
[2021-01-18] MEDS: Depakote 125mg Sprinkles GT SCH ×2 (09:14→20:24)
[2021-01-18] MEDS: Benztropine 1mg tab NG SCH ×2 (09:14→20:23)
[2021-01-18] MEDS: Solu-MEDROL 40mg Inj IVP SCH ×2 (09:15→20:25)
[2021-01-18] MEDS: Lansoprazole 15mg cap GT SCH (09:15)
--- NOTE | 2021-01-18 10:09 | Infectious Diseases Prog Note ---
Assessment/Plan 60yo M with: Staph epi bacteremia, m/l skin contaminant 01/10 BCx 1/2 +Staph epi 01/13 BCx NTD COVID pna, severe Acute hypoxia 2/2 COVID pna >> intubated 01/06 Febrile to 103 Normal WBC Elevated AST 51 2/2 Tested positive for COVID at [facility] 2 COVID PCR positive / BCx NTD CXR: Multifocal pna MRSA nares neg 01/06 Intubated in ICU CXR: 1. Appropriately positioned endotracheal and enteric tubes. 2. Stable bilateral airspace disease. 01/07 Resp cx +Yasmine albicans (colonizer) 01/11 CXR: Interval improved bilateral lung aeration. Bibasilar infiltrates/atelectasis. Cr 1.1 HIV screen neg PMH: DM2 COPD HTN SNF resident Plan: Cont Zosyn #10/ given critical illness - ok to stop abx tomorrow if remains AF, HDS On steroids #17, on methylpred 20 IV q12 - defer course to Pulm/Primary, now tapering 01/14 SP vanco IV #1 01/09 SP CTX #7 01/07 SP azithro #5, RDV #5 This institution does not have access to convalescent plasma and only recommended to give in setting of clinical trial Monitor CBC/CMP Monitor temp curve, hemodynamics Monitor resp status D/w RN Thank you for this consult. [facility] will continue to follow. Subjective Allergies: Coded Allergies: No Known Allergies (Unverified , 01/02/21) AF Sedated on vent 35%, proned No other changes Objective Last 24 Hour Vital Signs Date Time Temp Pulse Resp B/P (MAP) Pulse Ox O2 Delivery O2 Flow Rate FiO2 01/18/21 09:30 59 22 123/80 (94) 100 01/18/21 09:17 22 115/74 Mechanical Ventilator 35 01/18/21 09:16 22 115/80 Mechanical Ventilator 35 01/18/21 09:00 61 22 115/80 (92) 100 01/18/21 08:30 62 22 118/78 (91) 100 01/18/21 08:00 Mechanical Ventilator 01/18/21 08:00 99.0 61 22 113/66 (82) 100 01/18/21 07:58 63 22 45 01/18/21 07:30 68 22 104/67 (79) 99 01/18/21 07:00 74 22 99/60 (73) 99 01/18/21 06:30 70 22 106/67 (80) 100 01/18/21 06:15 73 22 99/57 (71) 100 01/18/21 06:00 22 110/67 Mechanical Ventilator 35 01/18/21 06:00 22 110/67 Mechanical Ventilator 35 01/18/21 06:00 69 22 110/67 (81) 100 01/18/21 05:45 68 22 112/70 (84) 100 01/18/21 05:30 63 22 119/77 (91) 100 01/18/21 05:30 35 01/18/21 05:15 60 22 120/76 (91) 100 01/18/21 05:00 61 22 116/75 (89) 100 01/18/21 05:00 22 113/73 Mechanical Ventilator 45 01/18/21 05:00 22 113/73 Mechanical Ventilator 45 01/18/21 04:45 62 22 113/73 (86) 100 01/18/21 04:30 63 22 115/72 (86) 100 01/18/21 04:15 64 22 115/73 (87) 100 01/18/21 04:13 21 118/76 Mechanical Ventilator 45 01/18/21 04:00 Mechanical Ventilator 01/18/21 04:00 99.8 64 22 118/76 (90) 100 01/18/21 04:00 67 01/18/21 04:00 22 115/73 Mechanical Ventilator 45 01/18/21 04:00 22 115/73 Mechanical Ventilator 45 01/18/21 04:00 45 01/18/21 03:45 68 22 117/73 (88) 100 01/18/21 03:30 69 22 113/72 (86) 100 01/18/21 03:19 82 22 45 01/18/21 03:15 72 22 109/70 (83) 100 01/18/21 03:00 67 22 107/72 (84) 96 01/18/21 03:00 22 107/72 Mechanical Ventilator 45 01/18/21 03:00 22 107/72 Mechanical Ventilator 45 01/18/21 02:45 62 16 114/78 (90) 96 01/18/21 02:30 63 21 121/73 (89) 95 01/18/21 02:15 64 20 114/77 (89) 95 01/18/21 02:00 64 20 118/78 (91) 95 01/18/21 02:00 22 114/77 Mechanical Ventilator 45 01/18/21 02:00 22 114/77 Mechanical Ventilator 45 01/18/21 01:45 62 20 119/79 (92) 98 01/18/21 01:30 62 21 114/75 (88) 95 01/18/21 01:15 63 20 113/76 (88) 95 01/18/21 01:00 22 119/74 Mechanical Ventilator 45 01/18/21 01:00 22 119/74 Mechanical Ventilator 45 01/18/21 01:00 63 22 119/74 (89) 95 01/18/21 00:45 69 21 120/76 (91) 95 01/18/21 00:30 72 19 105/62 (76) 95 01/18/21 00:23 22 99/54 Mechanical Ventilator 45 01/18/21 00:15 78 18 99/54 (69) 95 01/18/21 00:00 99.7 75 21 103/63 (76) 95 01/18/21 00:00 Mechanical Ventilator 01/18/21 00:00 45 01/18/21 00:00 21 99/64 Mechanical Ventilator 45 01/18/21 00:00 21 99/64 Mechanical Ventilator 45 01/18/21 00:00 70 01/17/21 23:45 72 20 108/64 (79) 95 01/17/21 23:30 73 21 113/68 (83) 94 01/17/21 23:15 65 21 127/82 (97) 94 01/17/21 23:15 75 22 45 01/17/21 23:00 63 17 128/93 (105) 94 01/17/21 23:00 21 127/82 Mechanical Ventilator 45 01/17/21 23:00 21 127/82 Mechanical Ventilator 45 01/17/21 22:45 60 21 121/76 (91) 95 01/17/21 22:30 60 21 122/77 (92) 95 01/17/21 22:15 62 20 114/77 (89) 94 01/17/21 22:00 18 114/77 Mechanical Ventilator 45 01/17/21 22:00 18 114/77 Mechanical Ventilator 45 2/18/21 22:00 64 18 114/73 (87) 95 21 21:45 67 16 110/74 (86) 95 21 21:30 69 18 110/67 (81) 95 21 21:15 71 14 109/71 (84) 95 21 21:00 16 135/103 Mechanical Ventilator 45 01/17/21 21:00 16 135/103 Mechanical Ventilator 45 01/17/21 21:00 72 22 135/103 (114) 95 01/17/21 20:45 79 22 100/57 (71) 96 01/17/21 20:30 70 21 100/60 (73) 94 01/17/21 20:15 68 22 104/64 (77) 94 01/17/21 20:00 67 01/17/21 20:00 Mechanical Ventilator 01/17/21 20:00 19 104/64 Mechanical Ventilator 45 01/17/21 20:00 19 104/64 Mechanical Ventilator 45 01/17/21 20:00 99.9 68 21 106/66 (79) 94 01/17/21 20:00 45 01/17/21 19:45 68 21 109/69 (82) 94 01/17/21 19:30 66 13 109/71 (84) 95 01/17/21 19:15 67 0 108/69 (82) 95 01/17/21 19:10 66 22 45 01/17/21 19:00 22 109/61 Mechanical Ventilator 45 01/17/21 19:00 22 109/61 Mechanical Ventilator 45 01/17/21 19:00 66 4 108/71 (83) 95 01/17/21 18:42 22 110/67 Mechanical Ventilator 45 01/17/21 18:30 67 9 110/67 (81) 95 01/17/21 18:00 65 6 112/70 (84) 95 01/17/21 18:00 22 112/70 Mechanical Ventilator 45 01/17/21 18:00 14 112/70 Mechanical Ventilator 45 01/17/21 17:30 63 18 109/73 (85) 95 18/21 17:00 63 16 107/68 (81) 94 21 17:00 22 109/71 Mechanical Ventilator 45 01/17/21 17:00 22 109/71 Mechanical Ventilator 45 01/17/21 16:30 65 20 110/71 (84) 94 2/18/21 16:15 45 01/17/21 16:00 99.9 67 20 110/73 (85) 96 01/17/21 16:00 60 01/17/21 16:00 66 01/17/21 16:00 67 22 112/74 (87) 94 01/17/21 16:00 22 112/74 Mechanical Ventilator 45 01/17/21 16:00 22 112/74 Mechanical Ventilator 60 01/17/21 16:00 Mechanical Ventilator 01/17/21 15:30 61 22 113/74 (87) 98 01/17/21 15:30 66 22 113/74 (87) 94 01/17/21 15:00 62 22 111/71 (84) 98 01/17/21 15:00 22 111/71 60 01/17/21 15:00 22 111/71 Mechanical Ventilator 60 01/17/21 15:00 67 22 110/74 (86) 94 01/17/21 14:30 62 22 115/70 (85) 98 01/17/21 14:30 59 22 60 01/17/21 14:30 66 19 112/74 (87) 93 01/17/21 14:00 61 22 112/73 (86) 98 01/17/21 14:00 22 116/70 Mechanical Ventilator 60 01/17/21 14:00 22 116/70 Mechanical Ventilator 60 01/17/21 13:30 65 22 115/72 (86) 98 01/17/21 13:00 63 22 112/73 (86) 98 01/17/21 13:00 22 117/75 Mechanical Ventilator 60 01/17/21 13:00 22 117/75 Mechanical Ventilator 60 01/17/21 12:30 64 22 120/75 (90) 98 01/17/21 12:11 22 118/77 Mechanical Ventilator 60 01/17/21 12:00 99.9 63 22 118/77 (91) 98 01/17/21 12:00 60 01/17/21 12:00 22 118/77 Mechanical Ventilator 60 01/17/21 12:00 22 118/77 Mechanical Ventilator 60 01/17/21 12:00 63 01/17/21 12:00 Mechanical Ventilator 01/17/21 11:37 22 124/78 Mechanical Ventilator 60 01/17/21 11:30 65 22 124/78 (93) 98 01/17/21 11:00 69 21 128/81 (97) 99 01/17/21 11:00 22 128/81 Mechanical Ventilator 60 01/17/21 11:00 22 128/81 Mechanical Ventilator 60 01/17/21 10:35 70 22 60 01/17/21 10:30 62 22 123/77 (92) 98 Height (Feet): 5 Height (Inches): 5.00 Weight (Pounds): 233 Gen: NAD HEENT: NCAT, ETT CV: RRR Pulm: BL chest rise, proned Ext: No c/c/e Skin: No visible rashes Neuro: Sedated Laboratory Tests Test 01/17/21 11:27 01/18/21 00:33 01/18/21 03:15 POC Whole Blood Glucose 250 MG/DL (74-106) H 275 MG/DL (74-106) H Prothrombin Time 23.7 SEC (9.30-11.50) H Prothromb Time International Ratio 2.3 (0.9-1.1) H Current Medications Medications (Trade) Dose Ordered Sig/Johnny Route PRN Reason Start Time Stop Time Status Last Admin Dose Admin Acetaminophen (Tylenol) 650 mg Q6H PRN NG Temp >100.5 01/09/21 09:15 02/08/21 09:14 01/14/21 21:28 Acetaminophen (Tylenol) 650 mg Q6H PRN NG Mild Pain (Pain Scale 1-3) 01/09/21 09:15 02/08/21 09:14 Albuterol Sulfate (Proventil MDI) 2 puff Q6HRT INH 01/02/21 19:00 04/02/21 18:59 01/18/21 07:58 Benztropine Mesylate (Cogentin) 1 mg EVERY 12 HOURS NG 01/09/21 09:15 02/01/21 09:14 01/18/21 09:14 Chlorhexidine Gluconate (Myranda-Hex 2%) 1 applic DAILY@2000 TOPIC 01/12/21 20:00 04/12/21 19:59 01/17/21 19:55 Dextrose (Dextrose 50%) 25 ml Q30M PRN IV Hypoglycemia 01/06/21 23:45 04/06/21 23:44 Dextrose (Dextrose 50%) 50 ml Q30M PRN IV Hypoglycemia 2/7/21 23:45 04/06/21 23:44 Divalproex Sodium (Depakote Sprinkles) 500 mg Q12HR GT 01/13/21 21:00 02/12/21 20:59 01/18/21 09:14 Fentanyl Citrate 250 ml @ 1 mls/hr Q24H IV 01/18/21 02:00 01/20/21 01:59 01/18/21 09:17 Insulin Aspart (NovoLOG) EVERY 6 HOURS SUBQ 01/09/21 12:00 04/04/21 16:29 01/18/21 05:58 Ipratropium [place] (Atrovent Inh) 1 puffs Q6HRT INH 01/02/21 19:00 02/01/21 18:59 01/18/21 07:58 Lansoprazole (Prevacid) 30 mg DAILY GT 01/16/21 09:00 02/15/21 08:59 01/18/21 09:15 Methylprednisolone Sodium Succinate (Solu-MEDROL) 20 mg EVERY 12 HOURS IVP 01/17/21 21:00 04/16/21 20:59 01/18/21 09:15 Midazolam HCl 200 ml @ 0 mls/hr Q24H PRN IV Agitation (RASS -2) 01/17/21 00:00 01/24/21 00:00 01/18/21 09:16 Ondansetron HCl (Zofran) 4 mg Q4H PRN IVP Nausea & Vomiting 01/02/21 08:15 02/01/21 08:14 Piperacillin Sod/ Tazobactam Sod 3.375 gm/Sodium Chloride 110 ml @ 27.5 mls/hr EVERY 8 HOURS IVPB 01/13/21 14:00 01/20/21 13:59 01/18/21 06:00 Sodium Chloride 1,000 ml @ 75 mls/hr [id number] IV 01/08/21 11:00 02/07/21 10:59 01/18/21 09:14 Warfarin Sodium (Coumadin per pharmacy) 1 ea DAILY PRN MISC Per rx protocol 01/02/21 08:30 02/01/21 08:29 Warfarin Sodium (Coumadin) 2.5 mg COUMADIN ORAL 01/18/21 17:00 2/19/21 18:00 Renetta Gomez M.D. Jan 18, 2021 10:09
--- NOTE | 2021-01-18 12:41 | Surgery Progress Note ---
Surgery Progress Note Subjective Additional Comments weaning no n/v labs noted possible consideration for trach cont weaning trach considered once no long pronging Objective Last 24 Hour Vital Signs Date Time Temp Pulse Resp B/P (MAP) Pulse Ox O2 Delivery O2 Flow Rate FiO2 01/18/21 11:00 55 22 128/77 (94) 100 01/18/21 10:30 57 22 121/75 (90) 100 01/18/21 10:00 60 22 121/81 (94) 100 01/18/21 09:30 59 22 123/80 (94) 100 01/18/21 09:17 22 115/74 Mechanical Ventilator 35 01/18/21 09:16 22 115/80 Mechanical Ventilator 35 01/18/21 09:00 61 22 115/80 (92) 100 01/18/21 08:30 62 22 118/78 (91) 100 01/18/21 08:00 63 01/18/21 08:00 Mechanical Ventilator 01/18/21 08:00 99.0 61 22 113/66 (82) 100 01/18/21 07:58 63 22 45 01/18/21 07:30 68 22 104/67 (79) 99 01/18/21 07:00 74 22 99/60 (73) 99 01/18/21 06:30 70 22 106/67 (80) 100 01/18/21 06:15 73 22 99/57 (71) 100 01/18/21 06:00 22 110/67 Mechanical Ventilator 35 01/18/21 06:00 22 110/67 Mechanical Ventilator 35 01/18/21 06:00 69 22 110/67 (81) 100 01/18/21 05:45 68 22 112/70 (84) 100 01/18/21 05:30 63 22 119/77 (91) 100 01/18/21 05:30 35 01/18/21 05:15 60 22 120/76 (91) 100 01/18/21 05:00 61 22 116/75 (89) 100 01/18/21 05:00 22 113/73 Mechanical Ventilator 45 01/18/21 05:00 22 113/73 Mechanical Ventilator 45 01/18/21 04:45 62 22 113/73 (86) 100 01/18/21 04:30 63 22 115/72 (86) 100 01/18/21 04:15 64 22 115/73 (87) 100 01/18/21 04:13 21 118/76 Mechanical Ventilator 45 01/18/21 04:00 Mechanical Ventilator 01/18/21 04:00 99.8 64 22 118/76 (90) 100 01/18/21 04:00 67 01/18/21 04:00 22 115/73 Mechanical Ventilator 45 01/18/21 04:00 22 115/73 Mechanical Ventilator 45 01/18/21 04:00 45 01/18/21 03:45 68 22 117/73 (88) 100 01/18/21 03:30 69 22 113/72 (86) 100 01/18/21 03:19 82 22 45 01/18/21 03:15 72 22 109/70 (83) 100 01/18/21 03:00 67 22 107/72 (84) 96 01/18/21 03:00 22 107/72 Mechanical Ventilator 45 01/18/21 03:00 22 107/72 Mechanical Ventilator 45 01/18/21 02:45 62 16 114/78 (90) 96 01/18/21 02:30 63 21 121/73 (89) 95 01/18/21 02:15 64 20 114/77 (89) 95 01/18/21 02:00 64 20 118/78 (91) 95 01/18/21 02:00 22 114/77 Mechanical Ventilator 45 01/18/21 02:00 22 114/77 Mechanical Ventilator 45 01/18/21 01:45 62 20 119/79 (92) 98 01/18/21 01:30 62 21 114/75 (88) 95 01/18/21 01:15 63 20 113/76 (88) 95 01/18/21 01:00 22 119/74 Mechanical Ventilator 45 01/18/21 01:00 22 119/74 Mechanical Ventilator 45 01/18/21 01:00 63 22 119/74 (89) 95 01/18/21 00:45 69 21 120/76 (91) 95 01/18/21 00:30 72 19 105/62 (76) 95 01/18/21 00:23 22 99/54 Mechanical Ventilator 45 01/18/21 00:15 78 18 99/54 (69) 95 01/18/21 00:00 99.7 75 21 103/63 (76) 95 01/18/21 00:00 Mechanical Ventilator 01/18/21 00:00 45 01/18/21 00:00 21 99/64 Mechanical Ventilator 45 01/18/21 00:00 21 99/64 Mechanical Ventilator 45 01/18/21 00:00 70 01/17/21 23:45 72 20 108/64 (79) 95 01/17/21 23:30 73 21 113/68 (83) 94 01/17/21 23:15 65 21 127/82 (97) 94 01/17/21 23:15 75 22 45 01/17/21 23:00 63 17 128/93 (105) 94 01/17/21 23:00 21 127/82 Mechanical Ventilator 45 01/17/21 23:00 21 127/82 Mechanical Ventilator 45 01/17/21 22:45 60 21 121/76 (91) 95 01/17/21 22:30 60 21 122/77 (92) 95 01/17/21 22:15 62 20 114/77 (89) 94 01/17/21 22:00 18 114/77 Mechanical Ventilator 45 01/17/21 22:00 18 114/77 Mechanical Ventilator 45 01/17/21 22:00 64 18 114/73 (87) 95 01/17/21 21:45 67 16 110/74 (86) 95 01/17/21 21:30 69 18 110/67 (81) 95 01/17/21 21:15 71 14 109/71 (84) 95 01/17/21 21:00 16 135/103 Mechanical Ventilator 45 01/17/21 21:00 16 135/103 Mechanical Ventilator 45 01/17/21 21:00 72 22 135/103 (114) 95 01/17/21 20:45 79 22 100/57 (71) 96 01/17/21 20:30 70 21 100/60 (73) 94 01/17/21 20:15 68 22 104/64 (77) 94 01/17/21 20:00 67 01/17/21 20:00 Mechanical Ventilator 01/17/21 20:00 19 104/64 Mechanical Ventilator 45 01/17/21 20:00 19 104/64 Mechanical Ventilator 45 01/17/21 20:00 99.9 68 21 106/66 (79) 94 01/17/21 20:00 45 01/17/21 19:45 68 21 109/69 (82) 94 2/18/21 19:30 66 13 109/71 (84) 95 18/21 19:15 67 0 108/69 (82) 95 01/17/21 19:10 66 22 45 21 19:00 22 109/61 Mechanical Ventilator 45 21 19:00 22 109/61 Mechanical Ventilator 45 01/17/21 19:00 66 4 108/71 (83) 95 21 18:42 22 110/67 Mechanical Ventilator 45 01/17/21 18:30 67 9 110/67 (81) 95 21 18:00 65 6 112/70 (84) 95 01/17/21 18:00 22 112/70 Mechanical Ventilator 45 01/17/21 18:00 14 112/70 Mechanical Ventilator 45 01/17/21 17:30 63 18 109/73 (85) 95 01/17/21 17:00 63 16 107/68 (81) 94 01/17/21 17:00 22 109/71 Mechanical Ventilator 45 01/17/21 17:00 22 109/71 Mechanical Ventilator 45 01/17/21 16:30 65 20 110/71 (84) 94 01/17/21 16:15 45 01/17/21 16:00 99.9 67 20 110/73 (85) 96 01/17/21 16:00 60 01/17/21 16:00 66 01/17/21 16:00 67 22 112/74 (87) 94 01/17/21 16:00 22 112/74 Mechanical Ventilator 45 01/17/21 16:00 22 112/74 Mechanical Ventilator 60 01/17/21 16:00 Mechanical Ventilator 01/17/21 15:30 61 22 113/74 (87) 98 18/21 15:30 66 22 113/74 (87) 94 01/17/21 15:00 62 22 111/71 (84) 98 01/17/21 15:00 22 111/71 60 01/17/21 15:00 22 111/71 Mechanical Ventilator 60 01/17/21 15:00 67 22 110/74 (86) 94 01/17/21 14:30 62 22 115/70 (85) 98 18/21 14:30 59 22 60 21 14:30 66 19 112/74 (87) 93 21 14:00 61 22 112/73 (86) 98 01/17/21 14:00 22 116/70 Mechanical Ventilator 60 01/17/21 14:00 22 116/70 Mechanical Ventilator 60 01/17/21 13:30 65 22 115/72 (86) 98 01/17/21 13:00 63 22 112/73 (86) 98 01/17/21 13:00 22 117/75 Mechanical Ventilator 60 01/17/21 13:00 22 117/75 Mechanical Ventilator 60 I&O Intake and Output 01/17/21 01/18/21 19:00 07:00 Intake Total 1832.24 ml 1964.5 ml Output Total 1075 ml 765 ml Balance 757.24 ml 1199.5 ml Free Water 90 ml 270 ml IV Total 1632.24 ml 1484.5 ml Tube Feeding 60 ml 210 ml Other 50 ml Output Urine Total 1075 ml 765 ml Dressing: saturated Cardiovascular: RSR Respiratory: decreased breath sounds Abdomen: soft, non-tender, present bowel sounds, non-distended Extremities: no tenderness, no cyanosis Laboratory Tests Test 01/18/21 00:33 01/18/21 03:15 POC Whole Blood Glucose 275 MG/DL (74-106) H Prothrombin Time 23.7 SEC (9.30-11.50) H Prothromb Time International Ratio 2.3 (0.9-1.1) H Plan Problems: (1) COPD (chronic obstructive pulmonary disease) (2) Essential hypertension (3) Schizophrenia (4) Obesity (5) Diabetes mellitus type 2 in obese (6) History of hydrocephalus (7) Anticoagulant long-term use (8) Bipolar 1 disorder (9) History of deep venous thrombosis or pulmonary embolus (10) Acute hypercapnic respiratory failure (11) Sepsis Assessment & Plan: 60-year-old male Covid positive respiratory insufficiency and severe decline being prone intubated on vent support labs noted septic ill- appearing has been developing wound around the face from ET tube.Receiv ed report from [facility] pt is being proned and was observed to have developed a blood blister under vent tape on L cheek and L earlobe. Skin assessed and pt was observed to have a blood blister that is 50% de-capped,50% intact. Intact Blood Blister noted to L earlobe. Skin Barrier applied to affected areas. Optifoam Thin foam placed between vent anchor and pt's skin. Optifoam thin placed to R cheek under Vent tape, on Bridge of nose and both earlobes. Given patient's critical status current care plan and findings nutritional optimization is strongly encouraged Covid nutrition plan initiated. All Covid precautions are being taken. Imaging reviewed. Will follow with care plan. Angelica tito jaiem Mckeon participation care Tx.Plan: Maintain Optifoam Thin foam to R and L cheeks,Bridge of Nose and Both Ears . Change every 7 days and prn.( May request Optifoam Thin from [facility] dept). APM/PEPE Mattress overlay DAILY ESTIMATED NEEDS: Needs based on Critical care, pulmonary, obese 73.7kg abw 22-28 kcals/kg 5924-4310 total kcals 1.2-2 g protein/kg 88-147 g total protein 25-30 mL/kg 0726-5324 total fluid mLs NUTRITION DIAGNOSIS: Altered nutrition related lab values r/t steroidal meds, clinical status as evidenced by febrile on adm (102.5), elevated BG (270 287) on solumedrol, elevated lipid panel (Triglycerides 333, Chol 370, LDL 150). CURRENT TF:Vital @30ml/hr, now Nepro @30 ENTERAL NUTRITION RECOMMENDATIONS: NEPRO @30ml/hr while supine to provide x8 hrs feeds: 360ml, 648 kcal, 29g pro, 262ml free H2O - Feed at rate best tolerated, currently not meeting est needs d/t proning and aspiration risk w/ supine feeds limited to 8hrs/day. - W/ reduced aspiration risk rec feedings to total Volume of 900ml/day of Nepro as medically able. - Monitor tolerance, position/HOB >30 degrees, hemodynamic stability and ability to increase to meet est kcal and pro needs. - With increase pressor support, rec trophic feeds of 10ml/hr for gut integrity. - When tolerating TF at goal add Prosource BID to better meet est pro needs. ADDITIONAL RECOMMENDATIONS: 1) Now intubated, TF recs above when off proning (8hrs feeds) 2) Obtain calibrated bedscale wts 3) HgA1C/ elevated BG Need for niss while on D5 4) Lytes daily; replete as needed 5) Monitor triglycerides, TF tolerance, hemodynamic stability. (12) Respiratory failure with hypoxia (13) Pneumonia due to COVID-19 virus (14) Hyperkalemia (15) DMII (diabetes mellitus, type 2) Ki Strong Jan 18, 2021 12:41
--- NOTE | 2021-01-18 13:58 | Nephrology Progress Note ---
Assessment/Plan Problem List: (1) Hyperkalemia (2) Pneumonia due to COVID-19 virus (3) Respiratory failure with hypoxia (4) Obesity (5) Schizophrenia (6) DMII (diabetes mellitus, type 2) Assessment Hyperkalemia Stable renal parameters Hyperglycemia Covid pneumonia due to COVID-19 virus Acute respiratory failure with hypoxia requiring mechanical ventilation History of COPD History of DVT, pulmonary emboli Obese Hypertension History of diabetes Psych condition, schizophrenia, bipolar disease Plan January 18: Full code. Intubated. On ventilator. FiO2 down to 35%. No labs drawn today. Continue to monitor renal parameters and electrolytes. January 17: Full code. Intubated on ventilator. FiO2 remains at 60%. Labs reviewed. Renal parameters stable. January 16: Full code. Intubated. Labs reviewed. Renal parameters stable. FiO2 60%. Continue per consultants. January 15: Patient remains intubated and full code. Labs reviewed. Stable renal parameters. January 14: Patient full code. Intubated on ventilator. On prone position until 5 PM. Labs reviewed. Stable from renal standpoint of view. January 13: Labs reviewed. Renal parameters stable. Continue per consultants. Patient remain full code and intubated on ventilator. January 12: Labs reviewed. Renal parameters stable. Patient remains full code. Remains intubated on ventilator and on prone position. Continue per consultants. January 11: Labs reviewed. Renal parameters stable. Continue per consultants. January 10: Labs reviewed. Renal parameters stable. Continue per consultants. Change IV to half-normal saline Kayexalate via NG tube for high potassium Monitor electrolytes and renal parameters Per orders, per consultants Subjective ROS Limited/Unobtainable: Yes Objective Objective Last 24 Hour Vital Signs Date Time Temp Pulse Resp B/P (MAP) Pulse Ox O2 Delivery O2 Flow Rate FiO2 01/18/21 13:00 56 22 124/79 (94) 100 01/18/21 13:00 22 122/80 Mechanical Ventilator 35 01/18/21 13:00 22 122/80 Mechanical Ventilator 35 01/18/21 12:30 57 22 130/82 (98) 100 01/18/21 12:00 Mechanical Ventilator 01/18/21 12:00 50 01/18/21 12:00 22 134/80 Mechanical Ventilator 35 01/18/21 12:00 22 135/80 35 01/18/21 12:00 35 01/18/21 12:00 99.5 58 22 128/89 (102) 100 01/18/21 11:00 55 22 128/77 (94) 100 01/18/21 11:00 22 135/90 Mechanical Ventilator 35 01/18/21 11:00 22 135/90 Mechanical Ventilator 35 01/18/21 10:30 57 22 121/75 (90) 100 01/18/21 10:00 60 22 121/81 (94) 100 01/18/21 10:00 22 117/77 Mechanical Ventilator 35 01/18/21 10:00 22 117/77 Mechanical Ventilator 35 01/18/21 09:30 59 22 123/80 (94) 100 01/18/21 09:17 22 115/74 Mechanical Ventilator 35 01/18/21 09:16 22 115/80 Mechanical Ventilator 35 01/18/21 09:00 61 22 115/80 (92) 100 01/18/21 09:00 22 119/78 Mechanical Ventilator 35 01/18/21 09:00 22 119/78 Mechanical Ventilator 35 01/18/21 08:30 62 22 118/78 (91) 100 01/18/21 08:00 22 116/73 Mechanical Ventilator 35 01/18/21 08:00 22 116/73 Mechanical Ventilator 35 01/18/21 08:00 63 01/18/21 08:00 Mechanical Ventilator 01/18/21 08:00 99.0 61 22 113/66 (82) 100 01/18/21 07:58 63 22 35 01/18/21 07:30 68 22 104/67 (79) 99 01/18/21 07:00 74 22 99/60 (73) 99 01/18/21 07:00 22 104/65 Mechanical Ventilator 35 01/18/21 07:00 22 104/65 Mechanical Ventilator 35 01/18/21 06:30 70 22 106/67 (80) 100 01/18/21 06:15 73 22 99/57 (71) 100 01/18/21 06:00 22 110/67 Mechanical Ventilator 35 01/18/21 06:00 22 110/67 Mechanical Ventilator 35 01/18/21 06:00 69 22 110/67 (81) 100 01/18/21 05:45 68 22 112/70 (84) 100 01/18/21 05:30 63 22 119/77 (91) 100 01/18/21 05:30 35 01/18/21 05:15 60 22 120/76 (91) 100 01/18/21 05:00 61 22 116/75 (89) 100 01/18/21 05:00 22 113/73 Mechanical Ventilator 45 01/18/21 05:00 22 113/73 Mechanical Ventilator 45 01/18/21 04:45 62 22 113/73 (86) 100 01/18/21 04:30 63 22 115/72 (86) 100 01/18/21 04:15 64 22 115/73 (87) 100 01/18/21 04:13 21 118/76 Mechanical Ventilator 45 01/18/21 04:00 Mechanical Ventilator 01/18/21 04:00 99.8 64 22 118/76 (90) 100 01/18/21 04:00 67 01/18/21 04:00 22 115/73 Mechanical Ventilator 45 01/18/21 04:00 22 115/73 Mechanical Ventilator 45 01/18/21 04:00 45 01/18/21 03:45 68 22 117/73 (88) 100 01/18/21 03:30 69 22 113/72 (86) 100 01/18/21 03:19 82 22 45 01/18/21 03:15 72 22 109/70 (83) 100 01/18/21 03:00 67 22 107/72 (84) 96 01/18/21 03:00 22 107/72 Mechanical Ventilator 45 01/18/21 03:00 22 107/72 Mechanical Ventilator 45 01/18/21 02:45 62 16 114/78 (90) 96 01/18/21 02:30 63 21 121/73 (89) 95 01/18/21 02:15 64 20 114/77 (89) 95 01/18/21 02:00 64 20 118/78 (91) 95 01/18/21 02:00 22 114/77 Mechanical Ventilator 45 01/18/21 02:00 22 114/77 Mechanical Ventilator 45 01/18/21 01:45 62 20 119/79 (92) 98 01/18/21 01:30 62 21 114/75 (88) 95 01/18/21 01:15 63 20 113/76 (88) 95 01/18/21 01:00 22 119/74 Mechanical Ventilator 45 01/18/21 01:00 22 119/74 Mechanical Ventilator 45 01/18/21 01:00 63 22 119/74 (89) 95 01/18/21 00:45 69 21 120/76 (91) 95 01/18/21 00:30 72 19 105/62 (76) 95 01/18/21 00:23 22 99/54 Mechanical Ventilator 45 01/18/21 00:15 78 18 99/54 (69) 95 01/18/21 00:00 99.7 75 21 103/63 (76) 95 01/18/21 00:00 Mechanical Ventilator 01/18/21 00:00 45 01/18/21 00:00 21 99/64 Mechanical Ventilator 45 01/18/21 00:00 21 99/64 Mechanical Ventilator 45 01/18/21 00:00 70 01/17/21 23:45 72 20 108/64 (79) 95 01/17/21 23:30 73 21 113/68 (83) 94 01/17/21 23:15 65 21 127/82 (97) 94 01/17/21 23:15 75 22 45 01/17/21 23:00 63 17 128/93 (105) 94 01/17/21 23:00 21 127/82 Mechanical Ventilator 45 01/17/21 23:00 21 127/82 Mechanical Ventilator 45 01/17/21 22:45 60 21 121/76 (91) 95 01/17/21 22:30 60 21 122/77 (92) 95 01/17/21 22:15 62 20 114/77 (89) 94 01/17/21 22:00 18 114/77 Mechanical Ventilator 45 01/17/21 22:00 18 114/77 Mechanical Ventilator 45 01/17/21 22:00 64 18 114/73 (87) 95 01/17/21 21:45 67 16 110/74 (86) 95 01/17/21 21:30 69 18 110/67 (81) 95 01/17/21 21:15 71 14 109/71 (84) 95 01/17/21 21:00 16 135/103 Mechanical Ventilator 45 01/17/21 21:00 16 135/103 Mechanical Ventilator 45 01/17/21 21:00 72 22 135/103 (114) 95 01/17/21 20:45 79 22 100/57 (71) 96 2/18/21 20:30 70 21 100/60 (73) 94 218/21 20:15 68 22 104/64 (77) 94 01/17/ 20:00 67 2/18/21 20:00 Mechanical Ventilator 218 20:00 19 104/64 Mechanical Ventilator 45 21821 20:00 19 104/64 Mechanical Ventilator 45 218/21 20:00 99.9 68 21 106/66 (79) 94 21 20:00 45 218/21 19:45 68 21 109/69 (82) 94 218/21 19:30 66 13 109/71 (84) 95 218/21 19:15 67 0 108/69 (82) 95 01/17/21 19:10 66 22 45 18/ 19:00 22 109/61 Mechanical Ventilator 45 01/17/21 19:00 22 109/61 Mechanical Ventilator 45 01/17/21 19:00 66 4 108/71 (83) 95 01/17/21 18:42 22 110/67 Mechanical Ventilator 45 01/17/21 18:30 67 9 110/67 (81) 95 218/21 18:00 65 6 112/70 (84) 95 01/17/ 18:00 22 112/70 Mechanical Ventilator 45 01/17/21 18:00 14 112/70 Mechanical Ventilator 45 01/17/21 17:30 63 18 109/73 (85) 95 1821 17:00 63 16 107/68 (81) 94 21 17:00 22 109/71 Mechanical Ventilator 45 01/17/21 17:00 22 109/71 Mechanical Ventilator 45 21 16:30 65 20 110/71 (84) 94 18/21 16:15 45 218/21 16:00 99.9 67 20 110/73 (85) 96 01/17/21 16:00 60 218/21 16:00 66 218/21 16:00 67 22 112/74 (87) 94 218/21 16:00 22 112/74 Mechanical Ventilator 45 01/17/21 16:00 22 112/74 Mechanical Ventilator 60 18/21 16:00 Mechanical Ventilator 218/21 15:30 61 22 113/74 (87) 98 218/21 15:30 66 22 113/74 (87) 94 01/17/21 15:00 62 22 111/71 (84) 98 01/17/21 15:00 22 111/71 60 01/17/21 15:00 22 111/71 Mechanical Ventilator 60 01/17/21 15:00 67 22 110/74 (86) 94 01/17/21 14:30 62 22 115/70 (85) 98 01/17/21 14:30 59 22 60 01/17/21 14:30 66 19 112/74 (87) 93 01/17/21 14:00 61 22 112/73 (86) 98 01/17/21 14:00 22 116/70 Mechanical Ventilator 60 01/17/21 14:00 22 116/70 Mechanical Ventilator 60 Intake and Output 01/17/21 01/18/21 19:00 07:00 Intake Total 1832.24 ml 1964.5 ml Output Total 1075 ml 765 ml Balance 757.24 ml 1199.5 ml Free Water 90 ml 270 ml IV Total 1632.24 ml 1484.5 ml Tube Feeding 60 ml 210 ml Other 50 ml Output Urine Total 1075 ml 765 ml Laboratory Tests 01/18/21 00:33: POC Whole Blood Glucose 275H 01/18/21 03:15: Prothrombin Time 23.7H, Prothromb Time International Ratio 2.3H 01/18/21 13:23: Arterial Blood pH 7.457H, Arterial Blood Partial Pressure CO2 32.0L, Arterial Blood Partial Pressure O2 97.9, Arterial Blood HCO3 22.1, Arterial Blood Oxygen Saturation 97.3, Arterial Blood Base Excess -0.9, Miguelito Test Positive Height (Feet): 5 Height (Inches): 5.00 Weight (Pounds): 233 General Appearance: no apparent distress Cardiovascular: bradycardia Respiratory/Chest: decreased breath sounds Abdomen: distended Avi Frye MD Jan 18, 2021 13:58
--- NOTE | 2021-01-18 16:43 | Internal Med Progress Note ---
Subjective Physician Name Geovanny Bradley Attending Physician Geovanny Bradley MD Current Medications Medications (Trade) Dose Ordered Sig/Johnny Route PRN Reason Start Time Stop Time Status Last Admin Dose Admin Acetaminophen (Tylenol) 650 mg Q6H PRN NG Temp >100.5 01/09/21 09:15 02/08/21 09:14 01/14/21 21:28 Acetaminophen (Tylenol) 650 mg Q6H PRN NG Mild Pain (Pain Scale 1-3) 01/09/21 09:15 02/08/21 09:14 Albuterol Sulfate (Proventil MDI) 2 puff Q6HRT INH 01/02/21 19:00 04/02/21 18:59 01/18/21 13:29 Benztropine Mesylate (Cogentin) 1 mg EVERY 12 HOURS NG 01/09/21 09:15 02/01/21 09:14 01/18/21 09:14 Chlorhexidine Gluconate (Myranda-Hex 2%) 1 applic DAILY@2000 TOPIC 01/12/21 20:00 04/12/21 19:59 01/17/21 19:55 Dextrose (Dextrose 50%) 25 ml Q30M PRN IV Hypoglycemia 01/06/21 23:45 04/06/21 23:44 Dextrose (Dextrose 50%) 50 ml Q30M PRN IV Hypoglycemia 01/06/21 23:45 04/06/21 23:44 Divalproex Sodium (Depakote Sprinkles) 500 mg Q12HR GT 01/13/21 21:00 02/12/21 20:59 01/18/21 09:14 Fentanyl Citrate 250 ml @ 1 mls/hr Q24H IV 01/18/21 02:00 01/20/21 01:59 01/18/21 09:17 Insulin Aspart (NovoLOG) EVERY 6 HOURS SUBQ 01/09/21 12:00 04/04/21 16:29 01/18/21 12:32 Ipratropium Thompson (Atrovent Inh) 1 puffs Q6HRT INH 01/02/21 19:00 02/01/21 18:59 01/18/21 13:28 Lansoprazole (Prevacid) 30 mg DAILY GT 01/16/21 09:00 02/15/21 08:59 01/18/21 09:15 Methylprednisolone Sodium Succinate (Solu-MEDROL) 10 mg EVERY 12 HOURS IVP 01/18/21 21:00 04/16/21 20:59 Midazolam HCl 200 ml @ 0 mls/hr Q24H PRN IV Agitation (RASS -2) 01/17/21 00:00 01/24/21 00:00 01/18/21 14:22 Ondansetron HCl (Zofran) 4 mg Q4H PRN IVP Nausea & Vomiting 01/02/21 08:15 02/01/21 08:14 Piperacillin Sod/ Tazobactam Sod 3.375 gm/Sodium Chloride 110 ml @ 27.5 mls/hr EVERY 8 HOURS IVPB 01/13/21 14:00 01/20/21 13:59 01/18/21 14:21 Sodium Chloride 1,000 ml @ 75 mls/hr [id number] IV 01/08/21 11:00 02/07/21 10:59 01/18/21 09:14 Warfarin Sodium (Coumadin per pharmacy) 1 ea DAILY PRN MISC Per rx protocol 01/02/21 08:30 02/01/21 08:29 Warfarin Sodium (Coumadin) 2.5 mg COUMADIN ORAL 01/18/21 17:00 01/18/21 18:00 Allergies: Coded Allergies: No Known Allergies (Unverified , 01/02/21) Subjective in MICU, intubated, remained on ventilation, in prone position, INR: 2.3. Objective Last Vital Signs Date Time Temp Pulse Resp B/P (MAP) Pulse Ox O2 Delivery O2 Flow Rate FiO2 01/18/21 16:00 Mechanical Ventilator 01/18/21 16:00 60 01/18/21 15:56 50 01/18/21 15:30 22 108/68 (81) 91 01/18/21 12:00 99.5 01/14/21 03:33 15.0 Laboratory Tests Test 01/18/21 00:33 01/18/21 03:15 01/18/21 13:23 POC Whole Blood Glucose 275 MG/DL (74-106) H Prothrombin Time 23.7 SEC (9.30-11.50) H Prothromb Time International Ratio 2.3 (0.9-1.1) H Arterial Blood pH 7.457 (7.350-7.450) Arterial Blood Partial Pressure CO2 32.0 mmHg (35.0-45.0) L Arterial Blood Partial Pressure O2 97.9 mmHg (75.0-100.0) Arterial Blood HCO3 22.1 mmol/L (22.0-26.0) Arterial Blood Oxygen Saturation 97.3 % (95-100) Arterial Blood Base Excess -0.9 (-2-2) Miguelito Test Positive Intake and Output 01/17/21 01/18/21 19:00 07:00 Intake Total 1832.24 ml 1964.5 ml Output Total 1075 ml 765 ml Balance 757.24 ml 1199.5 ml Free Water 90 ml 270 ml IV Total 1632.24 ml 1484.5 ml Tube Feeding 60 ml 210 ml Other 50 ml Output Urine Total 1075 ml 765 ml Objective General: intubated, in the prone position, remained on ventilation. HEENT: NCAT, sclera anicteric, PERRL, ET Tube. Neck: Supple, no significant jugular venous distention, Lungs: mechanical breath sounds,,basal crackles, no Wheeze. Heart: Regular rate and rhythm, normal S1/S2, no murmurs Abdomen: soft, nontender, nondistended. Normoactive bowel sound, obesity. : Ferraro cath. Extremities: Left LE: No Cyanosis , clubbing or edema. Right LE AKA. Neuro: limited secondary to patient's status, patient is sedated. Skin: warm, no rashes or lesions. Assessment/Plan Assessment/Plan (1) Pneumonia due to COVID-19 virus ICD Codes: U07.1 - COVID-19; J12.82 - Pneumonia due to coronavirus disease 2018 SNOMED: 235599619349121166 (2) Acute hypercapnic respiratory failure >> intubated 01/06 ICD Codes: J96.02 - Acute respiratory failure with hypercapnia SNOMED: 668955469 (3) Respiratory failure with hypoxia ICD Codes: J96.91 - Respiratory failure, unspecified with hypoxia SNOMED: 90582979750289065 Qualifiers: Qualified Codes: J96.01 - Acute respiratory failure with hypoxia (4) COPD (chronic obstructive pulmonary disease) ICD Codes: J44.9 - Chronic obstructive pulmonary disease, unspecified SNOMED: 72228114 (5) History of deep venous thrombosis or pulmonary embolus SNOMED: 020340678 (6) Obesity ICD Codes: E66.9 - Obesity, unspecified SNOMED: 892552965, 545002886 (7) Essential hypertension ICD Codes: I10 - Essential (primary) hypertension SNOMED: 23970299 (8) Diabetes mellitus type 2 in obese ICD Codes: E11.69 - Type 2 diabetes mellitus with other specified complication; E66.9 - Obesity, unspecified SNOMED: 13762109 (9) History of hydrocephalus ICD Codes: Z86.69 - Personal history of other diseases of the nervous system and sense organs SNOMED: 672461171 (10) Schizophrenia ICD Codes: F20.9 - Schizophrenia, unspecified SNOMED: 48239255 (11) Bipolar 1 disorder ICD Codes: F31.9 - Bipolar disorder, unspecified SNOMED: 798685933 (12) Anticoagulant long-term use ICD Codes: 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 FULL Code Geovanny Bradley MD Jan 18, 2021 16:43
[2021-01-18] MEDS ORDERED: Warfarin Sodium 2.5mg ORAL SCH (17:00)
[2021-01-18 18:00] LABS: BASOPHILS % (AUTO) 3.2 % (0.0-2.0); EOSINOPHILS % (AUTO) 0.1 % (0.0-3.0); HEMATOCRIT 39.1 % (42.0-52.0); HEMOGLOBIN 12.5 G/DL (14.2-18.0); LYMPHOCYTES % (AUTO) 11.8 % (20.0-45.0); MEAN CORPUSCULAR VOLUME 90 FL (80-99); MONOCYTES % (AUTO) 6.1 % (1.0-10.0); NEUTROPHILS % (AUTO) 78.9 % (45.0-75.0); PLATELET COUNT 213 K/UL (150-450); RED BLOOD COUNT 4.32 M/UL (4.70-6.10); RED CELL DISTRIBUTION WIDTH 14.4 % (11.6-14.8); WHITE BLOOD COUNT 8.2 K/UL (4.8-10.8)
[2021-01-18 18:25] LABS: ANION GAP 10 mmol/L (5-15); BLOOD UREA NITROGEN 17 mg/dL (7-18); CALCIUM 8.4 MG/DL (8.5-10.1); CARBON DIOXIDE 23 MMOL/L (21-32); CHLORIDE 106 MMOL/L (98-107); CREATININE 0.7 MG/DL (0.55-1.30); POTASSIUM 4.4 MMOL/L (3.5-5.1); SODIUM 139 MMOL/L (136-145)
[2021-01-18] MEDS: Dyna-Hex 2% Top Sol 2oz TOPIC SCH (20:22)
--- NOTE | 2021-01-18 23:05 | Pulmonology Progress Note ---
Subjective ROS Limited/Unobtainable: Yes Allergies: Coded Allergies: No Known Allergies (Unverified , 01/02/21) Objective Last 24 Hour Vital Signs Date Time Temp Pulse Resp B/P (MAP) Pulse Ox O2 Delivery O2 Flow Rate FiO2 01/18/21 22:30 74 22 97/50 (66) 91 01/18/21 22:15 67 22 95/58 (70) 91 01/18/21 22:00 22 95/58 Mechanical Ventilator 50 01/18/21 22:00 22 95/58 Mechanical Ventilator 50 01/18/21 22:00 65 22 98/57 (71) 92 01/18/21 21:58 22 100/57 Mechanical Ventilator 50 01/18/21 21:45 68 22 100/57 (71) 92 01/18/21 21:30 73 22 87/50 (62) 93 01/18/21 21:15 74 22 84/47 (59) 93 01/18/21 21:00 69 22 99/59 (72) 92 01/18/21 21:00 22 84/47 Mechanical Ventilator 50 01/18/21 21:00 22 84/47 Mechanical Ventilator 50 01/18/21 20:45 67 22 96/58 (71) 92 01/18/21 20:30 67 22 99/61 (74) 91 01/18/21 20:15 70 22 99/61 (74) 91 01/18/21 20:00 Mechanical Ventilator 01/18/21 20:00 22 99/61 Mechanical Ventilator 50 01/18/21 20:00 22 99/61 Mechanical Ventilator 50 01/18/21 20:00 98.7 71 22 101/61 (74) 91 01/18/21 20:00 50 01/18/21 19:45 73 22 103/74 (84) 95 01/18/21 19:41 82 22 50 01/18/21 19:30 71 22 101/62 (75) 92 01/18/21 19:00 22 91/50 Mechanical Ventilator 22 01/18/21 19:00 22 91/50 Mechanical Ventilator 50 01/18/21 19:00 77 22 91/50 (64) 93 01/18/21 18:30 75 22 91/50 (64) 94 01/18/21 18:00 22 94/57 Non-Rebreather 50 2/19/21 18:00 22 94/57 Mechanical Ventilator 50 01/18/21 18:00 66 22 94/57 (69) 93 01/18/21 17:30 57 22 106/75 (85) 95 01/18/21 17:00 22 109/71 Mechanical Ventilator 50 01/18/21 17:00 22 109/71 Mechanical Ventilator 50 01/18/21 17:00 59 22 109/71 (84) 95 01/18/21 16:30 55 22 108/70 (83) 93 01/18/21 16:00 98.5 57 22 104/69 (81) 92 01/18/21 16:00 Mechanical Ventilator 01/18/21 16:00 60 01/18/21 16:00 22 104/69 Mechanical Ventilator 50 01/18/21 16:00 22 104/69 Mechanical Ventilator 50 01/18/21 15:56 50 01/18/21 15:30 64 22 108/68 (81) 91 01/18/21 15:16 53 22 50 01/18/21 15:00 67 14 103/71 (82) 94 01/18/21 15:00 22 103/74 Mechanical Ventilator 50 01/18/21 15:00 22 103/72 Mechanical Ventilator 50 01/18/21 14:30 55 22 133/85 (101) 100 01/18/21 14:22 22 122/73 Mechanical Ventilator 50 01/18/21 14:00 57 22 121/78 (92) 100 01/18/21 14:00 22 121/78 Mechanical Ventilator 50 01/18/21 14:00 22 121/78 Mechanical Ventilator 22 01/18/21 13:30 58 22 127/81 (96) 100 01/18/21 13:00 56 22 124/79 (94) 100 01/18/21 13:00 22 122/80 Mechanical Ventilator 35 01/18/21 13:00 22 122/80 Mechanical Ventilator 35 01/18/21 12:30 57 22 130/82 (98) 100 01/18/21 12:15 50 01/18/21 12:00 58 01/18/21 12:00 Mechanical Ventilator 01/18/21 12:00 50 01/18/21 12:00 22 134/80 Mechanical Ventilator 35 01/18/21 12:00 22 135/80 35 01/18/21 12:00 35 01/18/21 12:00 99.5 58 22 128/89 (102) 100 01/18/21 11:09 59 22 35 01/18/21 11:00 55 22 128/77 (94) 100 01/18/21 11:00 22 135/90 Mechanical Ventilator 35 01/18/21 11:00 22 135/90 Mechanical Ventilator 35 01/18/21 10:30 57 22 121/75 (90) 100 01/18/21 10:00 60 22 121/81 (94) 100 01/18/21 10:00 22 117/77 Mechanical Ventilator 35 01/18/21 10:00 22 117/77 Mechanical Ventilator 35 01/18/21 09:30 59 22 123/80 (94) 100 01/18/21 09:17 22 115/74 Mechanical Ventilator 35 01/18/21 09:16 22 115/80 Mechanical Ventilator 35 01/18/21 09:00 61 22 115/80 (92) 100 01/18/21 09:00 22 119/78 Mechanical Ventilator 35 01/18/21 09:00 22 119/78 Mechanical Ventilator 35 01/18/21 08:30 62 22 118/78 (91) 100 01/18/21 08:00 22 116/73 Mechanical Ventilator 35 01/18/21 08:00 22 116/73 Mechanical Ventilator 35 01/18/21 08:00 63 01/18/21 08:00 Mechanical Ventilator 01/18/21 08:00 99.0 61 22 113/66 (82) 100 01/18/21 07:58 63 22 35 01/18/21 07:30 68 22 104/67 (79) 99 01/18/21 07:00 74 22 99/60 (73) 99 01/18/21 07:00 22 104/65 Mechanical Ventilator 35 01/18/21 07:00 22 104/65 Mechanical Ventilator 35 01/18/21 06:30 70 22 106/67 (80) 100 01/18/21 06:15 73 22 99/57 (71) 100 01/18/21 06:00 22 110/67 Mechanical Ventilator 35 01/18/21 06:00 22 110/67 Mechanical Ventilator 35 01/18/21 06:00 69 22 110/67 (81) 100 01/18/21 05:45 68 22 112/70 (84) 100 01/18/21 05:30 63 22 119/77 (91) 100 01/18/21 05:30 35 01/18/21 05:15 60 22 120/76 (91) 100 01/18/21 05:00 61 22 116/75 (89) 100 01/18/21 05:00 22 113/73 Mechanical Ventilator 45 01/18/21 05:00 22 113/73 Mechanical Ventilator 45 01/18/21 04:45 62 22 113/73 (86) 100 01/18/21 04:30 63 22 115/72 (86) 100 01/18/21 04:15 64 22 115/73 (87) 100 01/18/21 04:13 21 118/76 Mechanical Ventilator 45 01/18/21 04:00 Mechanical Ventilator 01/18/21 04:00 99.8 64 22 118/76 (90) 100 01/18/21 04:00 67 01/18/21 04:00 22 115/73 Mechanical Ventilator 45 01/18/21 04:00 22 115/73 Mechanical Ventilator 45 01/18/21 04:00 45 01/18/21 03:45 68 22 117/73 (88) 100 01/18/21 03:30 69 22 113/72 (86) 100 01/18/21 03:19 82 22 45 01/18/21 03:15 72 22 109/70 (83) 100 01/18/21 03:00 67 22 107/72 (84) 96 01/18/21 03:00 22 107/72 Mechanical Ventilator 45 01/18/21 03:00 22 107/72 Mechanical Ventilator 45 01/18/21 02:45 62 16 114/78 (90) 96 01/18/21 02:30 63 21 121/73 (89) 95 01/18/21 02:15 64 20 114/77 (89) 95 01/18/21 02:00 64 20 118/78 (91) 95 01/18/21 02:00 22 114/77 Mechanical Ventilator 45 01/18/21 02:00 22 114/77 Mechanical Ventilator 45 01/18/21 01:45 62 20 119/79 (92) 98 01/18/21 01:30 62 21 114/75 (88) 95 01/18/21 01:15 63 20 113/76 (88) 95 01/18/21 01:00 22 119/74 Mechanical Ventilator 45 01/18/21 01:00 22 119/74 Mechanical Ventilator 45 01/18/21 01:00 63 22 119/74 (89) 95 01/18/21 00:45 69 21 120/76 (91) 95 01/18/21 00:30 72 19 105/62 (76) 95 01/18/21 00:23 22 99/54 Mechanical Ventilator 45 01/18/21 00:15 78 18 99/54 (69) 95 01/18/21 00:00 99.7 75 21 103/63 (76) 95 01/18/21 00:00 Mechanical Ventilator 01/18/21 00:00 45 01/18/21 00:00 21 99/64 Mechanical Ventilator 45 01/18/21 00:00 21 99/64 Mechanical Ventilator 45 01/18/21 00:00 70 01/17/21 23:45 72 20 108/64 (79) 95 01/17/21 23:30 73 21 113/68 (83) 94 01/17/21 23:15 65 21 127/82 (97) 94 01/17/21 23:15 75 22 45 Intake and Output 01/17/21 01/18/21 19:00 07:00 Intake Total 1832.24 ml 1964.5 ml Output Total 1075 ml 765 ml Balance 757.24 ml 1199.5 ml Free Water 90 ml 270 ml IV Total 1632.24 ml 1484.5 ml Tube Feeding 60 ml 210 ml Other 50 ml Output Urine Total 1075 ml 765 ml Laboratory Tests 01/18/21 00:33: POC Whole Blood Glucose 275H 01/18/21 03:15: Prothrombin Time 23.7H, Prothromb Time International Ratio 2.3H 01/18/21 13:23: Arterial Blood pH 7.457H, Arterial Blood Partial Pressure CO2 32.0L, Arterial Blood Partial Pressure O2 97.9, Arterial Blood HCO3 22.1, Arterial Blood Oxygen Saturation 97.3, Arterial Blood Base Excess -0.9, Miguelito Test Positive 01/18/21 17:30: White Blood Count 8.2, Red Blood Count 4.32L, Hemoglobin 12.5L, Hematocrit 39.1L , Mean Corpuscular Volume 90, Mean Corpuscular Hemoglobin 28.9, Mean Corpuscular Hemoglobin Concent 31.9L, Red Cell Distribution Width 14.4, Platelet Count 213, Mean Platelet Volume 9.5, Neutrophils (%) (Auto) 78.9H, Lymphocytes (%) (Auto) 11.8L, Monocytes (%) (Auto) 6.1, Eosinophils (%) (Auto) 0.1, Basophils (%) (Auto) 3.2H, Sodium Level 139, Potassium Level 4.4, Chloride Level 106, Carbon Dioxide Level 23, Anion Gap 10, Blood Urea Nitrogen 17, Creatinine 0.7, Estimat Glomerular Filtration Rate > 60, Glucose Level 262H, Calcium Level 8.4L Current Medications Medications (Trade) Dose Ordered Sig/Johnny Route PRN Reason Start Time Stop Time Status Last Admin Dose Admin Acetaminophen (Tylenol) 650 mg Q6H PRN NG Temp >100.5 01/09/21 09:15 02/08/21 09:14 01/14/21 21:28 Acetaminophen (Tylenol) 650 mg Q6H PRN NG Mild Pain (Pain Scale 1-3) 01/09/21 09:15 02/08/21 09:14 Albuterol Sulfate (Proventil MDI) 2 puff Q6HRT INH 01/02/21 19:00 04/02/21 18:59 01/18/21 19:41 Benztropine Mesylate (Cogentin) 1 mg EVERY 12 HOURS NG 01/09/21 09:15 02/01/21 09:14 01/18/21 20:23 Chlorhexidine Gluconate (Myranda-Hex 2%) 1 applic DAILY@2000 TOPIC 01/12/21 20:00 04/12/21 19:59 01/18/21 20:22 Dextrose (Dextrose 50%) 25 ml Q30M PRN IV Hypoglycemia 01/06/21 23:45 04/06/21 23:44 Dextrose (Dextrose 50%) 50 ml Q30M PRN IV Hypoglycemia 01/06/21 23:45 04/06/21 23:44 Divalproex Sodium (Depakote Sprinkles) 500 mg Q12HR GT 01/13/21 21:00 02/12/21 20:59 01/18/21 20:24 Fentanyl Citrate 250 ml @ 1 mls/hr Q24H IV 01/18/21 02:00 01/20/21 01:59 01/18/21 21:58 Insulin Aspart (NovoLOG) EVERY 6 HOURS SUBQ 01/09/21 12:00 04/04/21 16:29 01/18/21 18:35 Ipratropium [place] (Atrovent Inh) 1 puffs Q6HRT INH 01/02/21 19:00 02/01/21 18:59 01/18/21 19:41 Lansoprazole (Prevacid) 30 mg DAILY GT 01/16/21 09:00 02/15/21 08:59 01/18/21 09:15 Methylprednisolone Sodium Succinate (Solu-MEDROL) 10 mg EVERY 12 HOURS IVP 01/18/21 21:00 04/16/21 20:59 01/18/21 20:25 Midazolam HCl 200 ml @ 0 mls/hr Q24H PRN IV Agitation (RASS -2) 01/17/21 00:00 01/24/21 00:00 01/18/21 14:22 Ondansetron HCl (Zofran) 4 mg Q4H PRN IVP Nausea & Vomiting 01/02/21 08:15 02/01/21 08:14 Piperacillin Sod/ Tazobactam Sod 3.375 gm/Sodium Chloride 110 ml @ 27.5 mls/hr EVERY 8 HOURS IVPB 01/13/21 14:00 01/20/21 13:59 01/18/21 22:35 Sodium Chloride 1,000 ml @ 75 mls/hr [id number] IV 01/08/21 11:00 02/07/21 10:59 01/18/21 09:14 Warfarin Sodium (Coumadin per pharmacy) 1 ea DAILY PRN MISC Per rx protocol 01/02/21 08:30 02/01/21 08:29 Assessment/Plan Assessment/Plan Pulmonary CCM Progress Note HPI Patient is a 60 man with prior h/o COPD, CPS/bipolar DO, 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 ID following and started on CTx/Azithro + REM + SM, CXR with bilateral infiltrates,ETT appropriate. 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, NHR, DM2, HTN and hydrocephalus Physical Exam Deferred Covid19 Vital Signs noted Laboratory Tests noted Imaging noted Height (Feet): 5 Height (Inches): 5.00 Weight (Pounds): 233 Medications Medications noted Assessment/Plan Problem List: (1) Pneumonia due to COVID-19 virus ICD Codes: U07.1 - COVID-19; J12.82 - Pneumonia due to coronavirus disease 2018 SNOMED: 988546246979979543 (2) Acute hypercapnic respiratory failure ICD Codes: J96.02 - Acute respiratory failure with hypercapnia SNOMED: 995675774 (3) Respiratory failure with hypoxia ICD Codes: J96.91 - Respiratory failure, unspecified with hypoxia SNOMED: 15256159050784368 Qualifiers: Qualified Codes: J96.01 - Acute respiratory failure with hypoxia (4) COPD (chronic obstructive pulmonary disease) ICD Codes: J44.9 - Chronic obstructive pulmonary disease, unspecified SNOMED: 37496073 (5) History of deep venous thrombosis or pulmonary embolus SNOMED: 304037983 (6) Obesity ICD Codes: E66.9 - Obesity, unspecified SNOMED: 196863037, 384849068 (7) Essential hypertension ICD Codes: I10 - Essential (primary) hypertension SNOMED: 66434530 (8) Diabetes mellitus type 2 in obese ICD Codes: E11.69 - Type 2 diabetes mellitus with other specified complication; E66.9 - Obesity, unspecified SNOMED: 82525949 (9) History of hydrocephalus ICD Codes: Z86.69 - Personal history of other diseases of the nervous system and sense organs SNOMED: 368083997 (10) Schizophrenia ICD Codes: F20.9 - Schizophrenia, unspecified SNOMED: 05325276 (11) Bipolar 1 disorder ICD Codes: F31.9 - Bipolar disorder, unspecified SNOMED: 562430197 (12) Anticoagulant long-term use ICD 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
[2021-01-19] VITALS (72 sets, daily range): BP systolic 67–120; BP diastolic 40–78
[2021-01-19] MEDS: NovoLOG Insulin Flexpen SUBQ SCH ×5 (00:09→23:28)
[2021-01-19] MEDS: Albuterol 90mcg Inhaler 8gm INH SCH ×4 (01:38→19:46)
[2021-01-19] MEDS: Ipratropium Bromide Inhaler INH SCH ×4 (01:38→19:46)
[2021-01-19] MEDS: Versed 100mg/NS 200ml 200 ML IV PRN ×3 (02:27→22:51)
[2021-01-19 07:15] LABS: INR 2.6 (0.9-1.1)
[2021-01-19 07:49] LABS: ALANINE AMINOTRANSFERASE 20 U/L (12-78); ALBUMIN 1.7 G/DL (3.4-5.0); ALBUMIN/GLOBULIN RATIO 0.4 (1.0-2.7); ALKALINE PHOSPHATASE 47 U/L (46-116); ANION GAP 10 mmol/L (5-15); ASPARTATE AMINO TRANSFERASE 14 U/L (15-37); BILIRUBIN,TOTAL 0.4 MG/DL (0.2-1.0); BLOOD UREA NITROGEN 16 mg/dL (7-18); CARBON DIOXIDE 23 MMOL/L (21-32); CHLORIDE 105 MMOL/L (98-107); CREATININE 0.8 MG/DL (0.55-1.30); PHOSPHORUS 3.1 MG/DL (2.5-4.9); SODIUM 138 MMOL/L (136-145)
--- NOTE | 2021-01-19 08:37 | Infectious Diseases Prog Note ---
Assessment/Plan 60yo M with: Staph epi bacteremia, m/l skin contaminant 01/10 BCx 1/2 +Staph epi 01/13 BCx NTD COVID pna, severe Acute hypoxia 2/2 COVID pna >> intubated 01/06 Febrile to 103 Normal WBC Elevated AST 51 2/2 Tested positive for COVID at [facility] 2/ COVID PCR positive / BCx NTD CXR: Multifocal pna MRSA nares neg 01/06 Intubated in ICU CXR: 1. Appropriately positioned endotracheal and enteric tubes. 2. Stable bilateral airspace disease. 01/07 Resp cx +Yasmine albicans (colonizer) 01/11 CXR: Interval improved bilateral lung aeration. Bibasilar infiltrates/atelectasis. Cr 1.1 HIV screen neg PMH: DM2 COPD HTN SNF resident Plan: Monitor off abx On steroids #18, on methylpred 20 IV q12 - defer course to Pulm/Primary, now tapering 01/19/21 SP Zosyn #10 01/14 SP vanco IV #1 01/09 SP CTX #7 01/07 SP azithro #5, RDV #5 This institution does not have access to convalescent plasma and only recommended to give in setting of clinical trial Monitor CBC/CMP Monitor temp curve, hemodynamics Monitor resp status D/w RN Thank you for this consult. [facility] will continue to follow. Subjective Allergies: Coded Allergies: No Known Allergies (Unverified , 01/02/21) Afebrile Remains on Vent 50% O2 No Leukocytosis Objective Last 24 Hour Vital Signs Date Time Temp Pulse Resp B/P (MAP) Pulse Ox O2 Delivery O2 Flow Rate FiO2 01/19/21 07:45 86 22 50 01/19/21 06:15 98.3 98 22 98/57 (71) 94 01/19/21 06:00 22 98/57 Mechanical Ventilator 50 01/19/21 06:00 22 98/57 Mechanical Ventilator 50 01/19/21 06:00 90 12 101/56 (71) 93 01/19/21 05:45 81 22 97/51 (66) 93 01/19/21 05:30 76 22 85/46 (59) 92 01/19/21 05:17 69 22 83/59 (67) 92 01/19/21 05:15 69 22 88/45 (59) 92 01/19/21 05:00 71 22 81/40 (54) 92 01/19/21 05:00 22 98/56 Mechanical Ventilator 50 01/19/21 05:00 22 98/56 Mechanical Ventilator 50 01/19/21 04:45 69 22 92/51 (65) 92 01/19/21 04:30 66 22 99/61 (74) 93 01/19/21 04:15 68 22 99/59 (72) 93 01/19/21 04:00 50 01/19/21 04:00 22 111/74 Mechanical Ventilator 50 01/19/21 04:00 22 111/74 Mechanical Ventilator 50 01/19/21 04:00 58 21 111/77 (88) 93 01/19/21 04:00 Mechanical Ventilator 01/19/21 04:00 61 01/19/21 03:45 98.3 56 22 117/75 (89) 93 01/19/21 03:30 61 16 111/74 (86) 94 01/19/21 03:23 57 22 50 01/19/21 03:15 55 22 111/74 (86) 94 01/19/21 03:00 22 115/78 Mechanical Ventilator 50 01/19/21 03:00 22 115/78 Mechanical Ventilator 50 01/19/21 03:00 54 21 115/78 (90) 95 01/19/21 02:45 57 16 110/76 (87) 95 01/19/21 02:30 55 22 112/71 (85) 95 01/19/21 02:27 22 110/73 Mechanical Ventilator 50 01/19/21 02:15 59 22 110/73 (85) 95 01/19/21 02:00 56 22 113/75 (88) 95 01/19/21 02:00 22 113/75 Mechanical Ventilator 50 01/19/21 02:00 22 113/78 Mechanical Ventilator 50 01/19/21 01:45 58 22 110/73 (85) 95 01/19/21 01:30 59 22 108/73 (85) 95 01/19/21 01:15 59 22 112/66 (81) 96 01/19/21 01:00 22 108/58 Mechanical Ventilator 50 01/19/21 01:00 22 108/58 Mechanical Ventilator 50 01/19/21 01:00 57 22 106/65 (79) 96 01/19/21 00:45 57 22 105/68 (80) 95 01/19/21 00:30 60 22 109/70 (83) 96 01/19/21 00:15 65 22 112/72 (85) 97 01/19/21 00:00 50 01/19/21 00:00 99.8 70 22 104/64 (77) 96 01/19/21 00:00 73 01/19/21 00:00 22 104/64 Mechanical Ventilator 50 01/19/21 00:00 22 104/64 Mechanical Ventilator 50 01/19/21 00:00 Mechanical Ventilator 01/18/21 23:45 80 22 99/56 (70) 95 01/18/21 23:30 76 22 89/49 (62) 93 01/18/21 23:20 83 22 50 01/18/21 23:15 74 22 93/53 (66) 94 01/18/21 23:00 22 89/56 Mechanical Ventilator 50 01/18/21 23:00 22 89/56 Mechanical Ventilator 50 01/18/21 23:00 73 22 101/56 (71) 93 01/18/21 22:45 76 22 99/56 (70) 93 01/18/21 22:30 74 22 97/50 (66) 91 01/18/21 22:15 67 22 95/58 (70) 91 01/18/21 22:00 22 95/58 Mechanical Ventilator 50 01/18/21 22:00 22 95/58 Mechanical Ventilator 50 01/18/21 22:00 65 22 98/57 (71) 92 01/18/21 21:58 22 100/57 Mechanical Ventilator 50 01/18/21 21:45 68 22 100/57 (71) 92 01/18/21 21:30 73 22 87/50 (62) 93 01/18/21 21:15 74 22 84/47 (59) 93 01/18/21 21:00 69 22 99/59 (72) 92 01/18/21 21:00 22 84/47 Mechanical Ventilator 50 01/18/21 21:00 22 84/47 Mechanical Ventilator 50 01/18/21 20:45 67 22 96/58 (71) 92 01/18/21 20:30 67 22 99/61 (74) 91 01/18/21 20:15 70 22 99/61 (74) 91 01/18/21 20:00 Mechanical Ventilator 01/18/21 20:00 68 01/18/21 20:00 22 99/61 Mechanical Ventilator 50 01/18/21 20:00 22 99/61 Mechanical Ventilator 50 01/18/21 20:00 98.7 71 22 101/61 (74) 91 01/18/21 20:00 50 01/18/21 19:45 73 22 103/74 (84) 95 01/18/21 19:41 82 22 50 01/18/21 19:30 71 22 101/62 (75) 92 01/18/21 19:00 22 91/50 Mechanical Ventilator 22 01/18/21 19:00 22 91/50 Mechanical Ventilator 50 01/18/21 19:00 77 22 91/50 (64) 93 01/18/21 18:30 75 22 91/50 (64) 94 01/18/21 18:00 22 94/57 Non-Rebreather 50 01/18/21 18:00 22 94/57 Mechanical Ventilator 50 01/18/21 18:00 66 22 94/57 (69) 93 01/18/21 17:30 57 22 106/75 (85) 95 01/18/21 17:00 22 109/71 Mechanical Ventilator 50 01/18/21 17:00 22 109/71 Mechanical Ventilator 50 01/18/21 17:00 59 22 109/71 (84) 95 01/18/21 16:30 55 22 108/70 (83) 93 01/18/21 16:00 98.5 57 22 104/69 (81) 92 01/18/21 16:00 Mechanical Ventilator 01/18/21 16:00 60 01/18/21 16:00 22 104/69 Mechanical Ventilator 50 01/18/21 16:00 22 104/69 Mechanical Ventilator 50 01/18/21 15:56 50 01/18/21 15:30 64 22 108/68 (81) 91 01/18/21 15:16 53 22 50 01/18/21 15:00 67 14 103/71 (82) 94 01/18/21 15:00 22 103/74 Mechanical Ventilator 50 01/18/21 15:00 22 103/72 Mechanical Ventilator 50 01/18/21 14:30 55 22 133/85 (101) 100 01/18/21 14:22 22 122/73 Mechanical Ventilator 50 01/18/21 14:00 57 22 121/78 (92) 100 01/18/21 14:00 22 121/78 Mechanical Ventilator 50 01/18/21 14:00 22 121/78 Mechanical Ventilator 22 01/18/21 13:30 58 22 127/81 (96) 100 01/18/21 13:00 56 22 124/79 (94) 100 01/18/21 13:00 22 122/80 Mechanical Ventilator 35 01/18/21 13:00 22 122/80 Mechanical Ventilator 35 01/18/21 12:30 57 22 130/82 (98) 100 01/18/21 12:15 50 01/18/21 12:00 58 01/18/21 12:00 Mechanical Ventilator 01/18/21 12:00 50 01/18/21 12:00 22 134/80 Mechanical Ventilator 35 01/18/21 12:00 22 135/80 35 01/18/21 12:00 35 01/18/21 12:00 99.5 58 22 128/89 (102) 100 01/18/21 11:09 59 22 35 01/18/21 11:00 55 22 128/77 (94) 100 01/18/21 11:00 22 135/90 Mechanical Ventilator 35 01/18/21 11:00 22 135/90 Mechanical Ventilator 35 01/18/21 10:30 57 22 121/75 (90) 100 01/18/21 10:00 60 22 121/81 (94) 100 01/18/21 10:00 22 117/77 Mechanical Ventilator 35 01/18/21 10:00 22 117/77 Mechanical Ventilator 35 01/18/21 09:30 59 22 123/80 (94) 100 01/18/21 09:17 22 115/74 Mechanical Ventilator 35 01/18/21 09:16 22 115/80 Mechanical Ventilator 35 01/18/21 09:00 61 22 115/80 (92) 100 01/18/21 09:00 22 119/78 Mechanical Ventilator 35 01/18/21 09:00 22 119/78 Mechanical Ventilator 35 Height (Feet): 5 Height (Inches): 5.00 Weight (Pounds): 233 Gen: NAD on Vent HEENT: NCAT, ETT CV: RRR Pulm: BL chest rise, RRR Ext: No c/c/e Skin: No visible rashes Neuro: Sedated Laboratory Tests Test 01/18/21 13:23 01/18/21 17:30 01/19/21 05:20 Arterial Blood pH 7.457 (7.350-7.450) Arterial Blood Partial Pressure CO2 32.0 mmHg (35.0-45.0) L Arterial Blood Partial Pressure O2 97.9 mmHg (75.0-100.0) Arterial Blood HCO3 22.1 mmol/L (22.0-26.0) Arterial Blood Oxygen Saturation 97.3 % (95-100) Arterial Blood Base Excess -0.9 (-2-2) Miguelito Test Positive White Blood Count 8.2 K/UL (4.8-10.8) Red Blood Count 4.32 M/UL (4.70-6.10) L Hemoglobin 12.5 G/DL (14.2-18.0) L Hematocrit 39.1 % (42.0-52.0) L Mean Corpuscular Volume 90 FL (80-99) Mean Corpuscular Hemoglobin 28.9 PG (27.0-31.0) Mean Corpuscular Hemoglobin Concent 31.9 G/DL (32.0-36.0) L Red Cell Distribution Width 14.4 % (11.6-14.8) Platelet Count 213 K/UL (150-450) Mean Platelet Volume 9.5 FL (6.5-10.1) Neutrophils (%) (Auto) 78.9 % (45.0-75.0) H Lymphocytes (%) (Auto) 11.8 % (20.0-45.0) L Monocytes (%) (Auto) 6.1 % (1.0-10.0) Eosinophils (%) (Auto) 0.1 % (0.0-3.0) Basophils (%) (Auto) 3.2 % (0.0-2.0) H Sodium Level 139 MMOL/L (136-145) 138 MMOL/L (136-145) Potassium Level 4.4 MMOL/L (3.5-5.1) 4.0 MMOL/L (3.5-5.1) Chloride Level 106 MMOL/L (98-107) 105 MMOL/L (98-107) Carbon Dioxide Level 23 MMOL/L (21-32) 23 MMOL/L (21-32) Anion Gap 10 mmol/L (5-15) 10 mmol/L (5-15) Blood Urea Nitrogen 17 mg/dL (7-18) 16 mg/dL (7-18) Creatinine 0.7 MG/DL (0.55-1.30) 0.8 MG/DL (0.55-1.30) Estimat Glomerular Filtration Rate > 60 mL/min (>60) > 60 mL/min (>60) Glucose Level 262 MG/DL (74-106) H 292 MG/DL (74-106) H Calcium Level 8.4 MG/DL (8.5-10.1) L 8.0 MG/DL (8.5-10.1) L Prothrombin Time 26.8 SEC (9.30-11.50) H Prothromb Time International Ratio 2.6 (0.9-1.1) H Phosphorus Level 3.1 MG/DL (2.5-4.9) Magnesium Level 2.1 MG/DL (1.8-2.4) Total Bilirubin 0.4 MG/DL (0.2-1.0) Aspartate Amino Transf (AST/SGOT) 14 U/L (15-37) L Alanine Aminotransferase (ALT/SGPT) 20 U/L (12-78) Alkaline Phosphatase 47 U/L (46-116) C-Reactive Protein, Quantitative 3.6 mg/dL (0.00-0.90) H Pro-B-Type Natriuretic Peptide 209 pg/mL (0-125) H Total Protein 5.5 G/DL (6.4-8.2) L Albumin 1.7 G/DL (3.4-5.0) L Globulin 3.8 g/dL Albumin/Globulin Ratio 0.4 (1.0-2.7) L Current Medications Medications (Trade) Dose Ordered Sig/Johnny Route PRN Reason Start Time Stop Time Status Last Admin Dose Admin Acetaminophen (Tylenol) 650 mg Q6H PRN NG Temp >100.5 01/09/21 09:15 02/08/21 09:14 01/14/21 21:28 Acetaminophen (Tylenol) 650 mg Q6H PRN NG Mild Pain (Pain Scale 1-3) 01/09/21 09:15 3 09:14 Albuterol Sulfate (Proventil MDI) 2 puff Q6HRT INH 01/02/21 19:00 04/02/21 18:59 01/19/21 07:44 Benztropine Mesylate (Cogentin) 1 mg EVERY 12 HOURS NG 01/09/21 09:15 02/01/21 09:14 01/18/21 20:23 Chlorhexidine Gluconate (Myranda-Hex 2%) 1 applic DAILY@2000 TOPIC 01/12/21 20:00 04/12/21 19:59 01/18/21 20:22 Dextrose (Dextrose 50%) 25 ml Q30M PRN IV Hypoglycemia 01/06/21 23:45 04/06/21 23:44 Dextrose (Dextrose 50%) 50 ml Q30M PRN IV Hypoglycemia 01/06/21 23:45 04/06/21 23:44 Divalproex Sodium (Depakote Sprinkles) 500 mg Q12HR GT 01/13/21 21:00 02/12/21 20:59 01/18/21 20:24 Fentanyl Citrate 250 ml @ 1 mls/hr Q24H IV 01/18/21 02:00 01/20/21 01:59 01/18/21 21:58 Insulin Aspart (NovoLOG) EVERY 6 HOURS SUBQ 01/09/21 12:00 04/04/21 16:29 01/19/21 06:18 Ipratropium Hendrix (Atrovent Inh) 1 puffs Q6HRT INH 01/02/21 19:00 02/01/21 18:59 01/19/21 07:44 Lansoprazole (Prevacid) 30 mg DAILY GT 01/16/21 09:00 02/15/21 08:59 01/18/21 09:15 Methylprednisolone Sodium Succinate (Solu-MEDROL) 10 mg EVERY 12 HOURS IVP 01/18/21 21:00 04/16/21 20:59 01/18/21 20:25 Midazolam HCl 200 ml @ 0 mls/hr Q24H PRN IV Agitation (RASS -2) 01/17/21 00:00 01/24/21 00:00 01/19/21 02:27 Ondansetron HCl (Zofran) 4 mg Q4H PRN IVP Nausea & Vomiting 01/02/21 08:15 02/01/21 08:14 Piperacillin Sod/ Tazobactam Sod 3.375 gm/Sodium Chloride 110 ml @ 27.5 mls/hr EVERY 8 HOURS IVPB 01/13/21 14:00 01/20/21 13:59 01/18/21 22:35 Sodium Chloride 1,000 ml @ 75 mls/hr [id number] IV 01/08/21 11:00 02/07/21 10:59 01/18/21 23:00 Warfarin Sodium (Coumadin per pharmacy) 1 ea DAILY PRN MISC Per rx protocol 01/02/21 08:30 02/01/21 08:29 Warfarin Sodium (Coumadin) 2.5 mg COUMADIN ORAL 01/19/21 17:00 01/19/21 19:00 Anuel Crespo MD Jan 19, 2021 08:37
[2021-01-19] MEDS: Depakote 125mg Sprinkles GT SCH ×2 (08:43→21:16)
[2021-01-19] MEDS: Lansoprazole 15mg cap GT SCH (08:43)
[2021-01-19] MEDS: Benztropine 1mg tab NG SCH ×2 (08:43→21:16)
[2021-01-19] MEDS: Piperacillin/Tazobactam 3.375 GM in NS 110 ML IVPB SCH ×3 (08:44→22:12)
[2021-01-19] MEDS: Solu-MEDROL 40mg Inj IVP SCH (08:44)
[2021-01-19 09:51] LABS: BASOPHILS % (AUTO) 0.6 % (0.0-2.0); HEMATOCRIT 39.5 % (42.0-52.0); HEMOGLOBIN 12.3 G/DL (14.2-18.0); LYMPHOCYTES % (AUTO) 17.5 % (20.0-45.0); MEAN CORPUSCULAR VOLUME 91 FL (80-99); MONOCYTES % (AUTO) 4.1 % (1.0-10.0); NEUTROPHILS % (AUTO) 77.7 % (45.0-75.0); PLATELET COUNT 215 K/UL (150-450); RED BLOOD COUNT 4.34 M/UL (4.70-6.10); RED CELL DISTRIBUTION WIDTH 14.7 % (11.6-14.8); WHITE BLOOD COUNT 9.2 K/UL (4.8-10.8)
--- NOTE | 2021-01-19 10:24 | Surgery Progress Note ---
Surgery Progress Note Subjective Additional Comments no acute events labs noted exam stable Objective Last 24 Hour Vital Signs Date Time Temp Pulse Resp B/P (MAP) Pulse Ox O2 Delivery O2 Flow Rate FiO2 01/19/21 07:45 86 22 50 01/19/21 06:15 98.3 98 22 98/57 (71) 94 01/19/21 06:00 22 98/57 Mechanical Ventilator 50 01/19/21 06:00 22 98/57 Mechanical Ventilator 50 01/19/21 06:00 90 12 101/56 (71) 93 01/19/21 05:45 81 22 97/51 (66) 93 01/19/21 05:30 76 22 85/46 (59) 92 01/19/21 05:17 69 22 83/59 (67) 92 01/19/21 05:15 69 22 88/45 (59) 92 01/19/21 05:00 71 22 81/40 (54) 92 01/19/21 05:00 22 98/56 Mechanical Ventilator 50 01/19/21 05:00 22 98/56 Mechanical Ventilator 50 01/19/21 04:45 69 22 92/51 (65) 92 01/19/21 04:30 66 22 99/61 (74) 93 01/19/21 04:15 68 22 99/59 (72) 93 01/19/21 04:00 50 01/19/21 04:00 22 111/74 Mechanical Ventilator 50 01/19/21 04:00 22 111/74 Mechanical Ventilator 50 01/19/21 04:00 58 21 111/77 (88) 93 01/19/21 04:00 Mechanical Ventilator 01/19/21 04:00 61 01/19/21 03:45 98.3 56 22 117/75 (89) 93 01/19/21 03:30 61 16 111/74 (86) 94 01/19/21 03:23 57 22 50 01/19/21 03:15 55 22 111/74 (86) 94 01/19/21 03:00 22 115/78 Mechanical Ventilator 50 01/19/21 03:00 22 115/78 Mechanical Ventilator 50 01/19/21 03:00 54 21 115/78 (90) 95 01/19/21 02:45 57 16 110/76 (87) 95 01/19/21 02:30 55 22 112/71 (85) 95 01/19/21 02:27 22 110/73 Mechanical Ventilator 50 01/19/21 02:15 59 22 110/73 (85) 95 01/19/21 02:00 56 22 113/75 (88) 95 01/19/21 02:00 22 113/75 Mechanical Ventilator 50 01/19/21 02:00 22 113/78 Mechanical Ventilator 50 01/19/21 01:45 58 22 110/73 (85) 95 01/19/21 01:30 59 22 108/73 (85) 95 01/19/21 01:15 59 22 112/66 (81) 96 01/19/21 01:00 22 108/58 Mechanical Ventilator 50 01/19/21 01:00 22 108/58 Mechanical Ventilator 50 01/19/21 01:00 57 22 106/65 (79) 96 01/19/21 00:45 57 22 105/68 (80) 95 01/19/21 00:30 60 22 109/70 (83) 96 01/19/21 00:15 65 22 112/72 (85) 97 01/19/21 00:00 50 01/19/21 00:00 99.8 70 22 104/64 (77) 96 01/19/21 00:00 73 01/19/21 00:00 22 104/64 Mechanical Ventilator 50 01/19/21 00:00 22 104/64 Mechanical Ventilator 50 01/19/21 00:00 Mechanical Ventilator 01/18/21 23:45 80 22 99/56 (70) 95 01/18/21 23:30 76 22 89/49 (62) 93 01/18/21 23:20 83 22 50 01/18/21 23:15 74 22 93/53 (66) 94 01/18/21 23:00 22 89/56 Mechanical Ventilator 50 01/18/21 23:00 22 89/56 Mechanical Ventilator 50 01/18/21 23:00 73 22 101/56 (71) 93 01/18/21 22:45 76 22 99/56 (70) 93 01/18/21 22:30 74 22 97/50 (66) 91 01/18/21 22:15 67 22 95/58 (70) 91 01/18/21 22:00 22 95/58 Mechanical Ventilator 50 01/18/21 22:00 22 95/58 Mechanical Ventilator 50 01/18/21 22:00 65 22 98/57 (71) 92 01/18/21 21:58 22 100/57 Mechanical Ventilator 50 01/18/21 21:45 68 22 100/57 (71) 92 01/18/21 21:30 73 22 87/50 (62) 93 01/18/21 21:15 74 22 84/47 (59) 93 01/18/21 21:00 69 22 99/59 (72) 92 01/18/21 21:00 22 84/47 Mechanical Ventilator 50 01/18/21 21:00 22 84/47 Mechanical Ventilator 50 01/18/21 20:45 67 22 96/58 (71) 92 01/18/21 20:30 67 22 99/61 (74) 91 01/18/21 20:15 70 22 99/61 (74) 91 01/18/21 20:00 Mechanical Ventilator 01/18/21 20:00 68 01/18/21 20:00 22 99/61 Mechanical Ventilator 50 01/18/21 20:00 22 99/61 Mechanical Ventilator 50 01/18/21 20:00 98.7 71 22 101/61 (74) 91 01/18/21 20:00 50 01/18/21 19:45 73 22 103/74 (84) 95 01/18/21 19:41 82 22 50 01/18/21 19:30 71 22 101/62 (75) 92 01/18/21 19:00 22 91/50 Mechanical Ventilator 22 01/18/21 19:00 22 91/50 Mechanical Ventilator 50 01/18/21 19:00 77 22 91/50 (64) 93 01/18/21 18:30 75 22 91/50 (64) 94 01/18/21 18:00 22 94/57 Non-Rebreather 50 01/18/21 18:00 22 94/57 Mechanical Ventilator 50 01/18/21 18:00 66 22 94/57 (69) 93 01/18/21 17:30 57 22 106/75 (85) 95 01/18/21 17:00 22 109/71 Mechanical Ventilator 50 01/18/21 17:00 22 109/71 Mechanical Ventilator 50 01/18/21 17:00 59 22 109/71 (84) 95 01/18/21 16:30 55 22 108/70 (83) 93 01/18/21 16:00 98.5 57 22 104/69 (81) 92 01/18/21 16:00 Mechanical Ventilator 01/18/21 16:00 60 01/18/21 16:00 22 104/69 Mechanical Ventilator 50 01/18/21 16:00 22 104/69 Mechanical Ventilator 50 01/18/21 15:56 50 01/18/21 15:30 64 22 108/68 (81) 91 01/18/21 15:16 53 22 50 01/18/21 15:00 67 14 103/71 (82) 94 01/18/21 15:00 22 103/74 Mechanical Ventilator 50 01/18/21 15:00 22 103/72 Mechanical Ventilator 50 01/18/21 14:30 55 22 133/85 (101) 100 01/18/21 14:22 22 122/73 Mechanical Ventilator 50 01/18/21 14:00 57 22 121/78 (92) 100 01/18/21 14:00 22 121/78 Mechanical Ventilator 50 01/18/21 14:00 22 121/78 Mechanical Ventilator 22 01/18/21 13:30 58 22 127/81 (96) 100 01/18/21 13:00 56 22 124/79 (94) 100 01/18/21 13:00 22 122/80 Mechanical Ventilator 35 01/18/21 13:00 22 122/80 Mechanical Ventilator 35 01/18/21 12:30 57 22 130/82 (98) 100 01/18/21 12:15 50 01/18/21 12:00 58 01/18/21 12:00 Mechanical Ventilator 01/18/21 12:00 50 01/18/21 12:00 22 134/80 Mechanical Ventilator 35 01/18/21 12:00 22 135/80 35 01/18/21 12:00 35 01/18/21 12:00 99.5 58 22 128/89 (102) 100 01/18/21 11:09 59 22 35 01/18/21 11:00 55 22 128/77 (94) 100 01/18/21 11:00 22 135/90 Mechanical Ventilator 35 01/18/21 11:00 22 135/90 Mechanical Ventilator 35 01/18/21 10:30 57 22 121/75 (90) 100 I&O Intake and Output 01/18/21 01/19/21 19:00 07:00 Intake Total 1982.150 ml 1737.749 ml Output Total 1070 ml 735 ml Balance 912.150 ml 1002.749 ml Free Water 150 ml 300 ml IV Total 1652.150 ml 1137.749 ml Tube Feeding 120 ml 300 ml Other 60 ml Output Urine Total 1070 ml 735 ml Dressing: other Wound: other Cardiovascular: RSR Respiratory: decreased breath sounds Abdomen: soft, non-tender, present bowel sounds Extremities: no tenderness, no cyanosis Laboratory Tests Test 01/18/21 13:23 01/18/21 17:30 01/19/21 05:20 Arterial Blood pH 7.457 (7.350-7.450) Arterial Blood Partial Pressure CO2 32.0 mmHg (35.0-45.0) L Arterial Blood Partial Pressure O2 97.9 mmHg (75.0-100.0) Arterial Blood HCO3 22.1 mmol/L (22.0-26.0) Arterial Blood Oxygen Saturation 97.3 % (95-100) Arterial Blood Base Excess -0.9 (-2-2) Miguelito Test Positive White Blood Count 8.2 K/UL (4.8-10.8) 9.2 K/UL (4.8-10.8) Red Blood Count 4.32 M/UL (4.70-6.10) L 4.34 M/UL (4.70-6.10) L Hemoglobin 12.5 G/DL (14.2-18.0) L 12.3 G/DL (14.2-18.0) L Hematocrit 39.1 % (42.0-52.0) L 39.5 % (42.0-52.0) L Mean Corpuscular Volume 90 FL (80-99) 91 FL (80-99) Mean Corpuscular Hemoglobin 28.9 PG (27.0-31.0) 28.3 PG (27.0-31.0) Mean Corpuscular Hemoglobin Concent 31.9 G/DL (32.0-36.0) L 31.2 G/DL (32.0-36.0) L Red Cell Distribution Width 14.4 % (11.6-14.8) 14.7 % (11.6-14.8) Platelet Count 213 K/UL (150-450) 215 K/UL (150-450) Mean Platelet Volume 9.5 FL (6.5-10.1) 10.6 FL (6.5-10.1) H Neutrophils (%) (Auto) 78.9 % (45.0-75.0) H 77.7 % (45.0-75.0) H Lymphocytes (%) (Auto) 11.8 % (20.0-45.0) L 17.5 % (20.0-45.0) L Monocytes (%) (Auto) 6.1 % (1.0-10.0) 4.1 % (1.0-10.0) Eosinophils (%) (Auto) 0.1 % (0.0-3.0) 0.0 % (0.0-3.0) Basophils (%) (Auto) 3.2 % (0.0-2.0) H 0.6 % (0.0-2.0) Sodium Level 139 MMOL/L (136-145) 138 MMOL/L (136-145) Potassium Level 4.4 MMOL/L (3.5-5.1) 4.0 MMOL/L (3.5-5.1) Chloride Level 106 MMOL/L (98-107) 105 MMOL/L (98-107) Carbon Dioxide Level 23 MMOL/L (21-32) 23 MMOL/L (21-32) Anion Gap 10 mmol/L (5-15) 10 mmol/L (5-15) Blood Urea Nitrogen 17 mg/dL (7-18) 16 mg/dL (7-18) Creatinine 0.7 MG/DL (0.55-1.30) 0.8 MG/DL (0.55-1.30) Estimat Glomerular Filtration Rate > 60 mL/min (>60) > 60 mL/min (>60) Glucose Level 262 MG/DL (74-106) H 292 MG/DL (74-106) H Calcium Level 8.4 MG/DL (8.5-10.1) L 8.0 MG/DL (8.5-10.1) L Prothrombin Time 26.8 SEC (9.30-11.50) H Prothromb Time International Ratio 2.6 (0.9-1.1) H Phosphorus Level 3.1 MG/DL (2.5-4.9) Magnesium Level 2.1 MG/DL (1.8-2.4) Total Bilirubin 0.4 MG/DL (0.2-1.0) Aspartate Amino Transf (AST/SGOT) 14 U/L (15-37) L Alanine Aminotransferase (ALT/SGPT) 20 U/L (12-78) Alkaline Phosphatase 47 U/L (46-116) C-Reactive Protein, Quantitative 3.6 mg/dL (0.00-0.90) H Pro-B-Type Natriuretic Peptide 209 pg/mL (0-125) H Total Protein 5.5 G/DL (6.4-8.2) L Albumin 1.7 G/DL (3.4-5.0) L Globulin 3.8 g/dL Albumin/Globulin Ratio 0.4 (1.0-2.7) L Plan Problems: (1) COPD (chronic obstructive pulmonary disease) (2) Essential hypertension (3) Schizophrenia (4) Obesity (5) Diabetes mellitus type 2 in obese (6) History of hydrocephalus (7) Anticoagulant long-term use (8) Bipolar 1 disorder (9) History of deep venous thrombosis or pulmonary embolus (10) Acute hypercapnic respiratory failure (11) Sepsis Assessment & Plan: 60-year-old male Covid positive respiratory insufficiency and severe decline being prone intubated on vent support labs noted septic ill-appearing has been developing wound around the face from ET tube.Receiv ed report from [facility] pt is being proned and was observed to have developed a blood blister under vent tape on L cheek and L earlobe. Skin assessed and pt was observed to have a blood blister that is 50% de-capped,50% intact. Intact Blood Blister noted to L earlobe. Skin Barrier applied to affected areas. Optifoam Thin foam placed between vent anchor and pt's skin. Optifoam thin placed to R cheek under Vent tape, on Bridge of nose and both earlobes. Given patient's critical status current care plan and findings nutritional optimization is strongly encouraged Covid nutrition plan initiated. All Covid precautions are being taken. Imaging reviewed. Will follow with care plan. Thank you [facility] participation care Tx.Plan: Maintain Optifoam Thin foam to R and L cheeks,Bridge of Nose and Both Ears . Change every 7 days and prn.( May request Optifoam Thin from [facility] dept). APM/PEPE Mattress overlay DAILY ESTIMATED NEEDS: Needs based on Critical care, pulmonary, obese 73.7kg abw 22-28 kcals/kg 5854-7102 total kcals 1.2-2 g protein/kg 88-147 g total protein 25-30 mL/kg 7730-0378 total fluid mLs NUTRITION DIAGNOSIS: Altered nutrition related lab values r/t steroidal meds, clinical status as evidenced by febrile on adm (102.5), elevated BG (270 287) on solumedrol, elevated lipid panel (Triglycerides 333, Chol 370, LDL 150). CURRENT TF:Vital @30ml/hr, now Nepro @30 ENTERAL NUTRITION RECOMMENDATIONS: NEPRO @30ml/hr while supine to provide x8 hrs feeds: 360ml, 648 kcal, 29g pro, 262ml free H2O - Feed at rate best tolerated, currently not meeting est needs d/t proning and aspiration risk w/ supine feeds limited to 8hrs/day. - W/ reduced aspiration risk rec feedings to total Volume of 900ml/day of Nepro as medically able. - Monitor tolerance, position/HOB >30 degrees, hemodynamic stability and ability to increase to meet est kcal and pro needs. - With increase pressor support, rec trophic feeds of 10ml/hr for gut integrity. - When tolerating TF at goal add Prosource BID to better meet est pro needs. ADDITIONAL RECOMMENDATIONS: 1) Now intubated, TF recs above when off proning (8hrs feeds) 2) Obtain calibrated bedscale wts 3) HgA1C/ elevated BG Need for niss while on D5 4) Lytes daily; replete as needed 5) Monitor triglycerides, TF tolerance, hemodynamic stability. (12) Respiratory failure with hypoxia (13) Pneumonia due to COVID-19 virus (14) Hyperkalemia (15) DMII (diabetes mellitus, type 2) Ki Strong Jan 19, 2021 10:24
--- NOTE | 2021-01-19 11:34 | Nephrology Progress Note ---
Assessment/Plan Problem List: (1) Hyperkalemia (2) Pneumonia due to COVID-19 virus (3) Respiratory failure with hypoxia (4) Obesity (5) Schizophrenia (6) DMII (diabetes mellitus, type 2) Assessment Hyperkalemia Stable renal parameters Hyperglycemia Covid pneumonia due to COVID-19 virus Acute respiratory failure with hypoxia requiring mechanical ventilation History of COPD History of DVT, pulmonary emboli Obese Hypertension History of diabetes Psych condition, schizophrenia, bipolar disease Plan January 19: Labs reviewed. Renal parameters stable. Remains full code intubated on ventilator. FiO2 50%. Continue per consultants. January 18: Full code. Intubated. On ventilator. FiO2 down to 35%. No labs drawn today. Continue to monitor renal parameters and electrolytes. January 17: Full code. Intubated on ventilator. FiO2 remains at 60%. Labs reviewed. Renal parameters stable. January 16: Full code. Intubated. Labs reviewed. Renal parameters stable. FiO2 60%. Continue per consultants. January 15: Patient remains intubated and full code. Labs reviewed. Stable renal parameters. January 14: Patient full code. Intubated on ventilator. On prone position until 5 PM. Labs reviewed. Stable from renal standpoint of view. January 13: Labs reviewed. Renal parameters stable. Continue per consultants. Patient remain full code and intubated on ventilator. January 12: Labs reviewed. Renal parameters stable. Patient remains full code. Remains intubated on ventilator and on prone position. Continue per consultants. January 11: Labs reviewed. Renal parameters stable. Continue per consultants. January 10: Labs reviewed. Renal parameters stable. Continue per consultants. Change IV to half-normal saline Kayexalate via NG tube for high potassium Monitor electrolytes and renal parameters Per orders, per consultants Objective Objective Last 24 Hour Vital Signs Date Time Temp Pulse Resp B/P (MAP) Pulse Ox O2 Delivery O2 Flow Rate FiO2 01/19/21 11:00 75 22 120/71 (87) 90 01/19/21 10:30 66 22 103/61 (75) 91 01/19/21 10:30 75 22 110/66 (81) 91 01/19/21 10:00 73 22 88/52 (64) 93 01/19/21 09:30 98.3 80 22 94/56 (69) 93 01/19/21 09:00 92 22 90/49 (63) 93 01/19/21 08:30 83 22 103/65 (78) 91 01/19/21 08:00 89 22 104/63 (77) 92 01/19/21 08:00 50 01/19/21 08:00 69 2 07:45 86 22 50 01/19/21 07:30 87 18 99/75 (83) 92 01/19/21 07:00 87 22 95/53 (67) 93 01/19/21 06:15 98.3 98 22 98/57 (71) 94 01/19/21 06:00 22 98/57 Mechanical Ventilator 50 01/19/21 06:00 22 98/57 Mechanical Ventilator 50 01/19/21 06:00 90 12 101/56 (71) 93 01/19/21 05:45 81 22 97/51 (66) 93 01/19/21 05:30 76 22 85/46 (59) 92 01/19/21 05:17 69 22 83/59 (67) 92 01/19/21 05:15 69 22 88/45 (59) 92 01/19/21 05:00 71 22 81/40 (54) 92 01/19/21 05:00 22 98/56 Mechanical Ventilator 50 01/19/21 05:00 22 98/56 Mechanical Ventilator 50 01/19/21 04:45 69 22 92/51 (65) 92 01/19/21 04:30 66 22 99/61 (74) 93 01/19/21 04:15 68 22 99/59 (72) 93 01/19/21 04:00 50 01/19/21 04:00 22 111/74 Mechanical Ventilator 50 01/19/21 04:00 22 111/74 Mechanical Ventilator 50 01/19/21 04:00 58 21 111/77 (88) 93 01/19/21 04:00 Mechanical Ventilator 01/19/21 04:00 61 01/19/21 03:45 98.3 56 22 117/75 (89) 93 01/19/21 03:30 61 16 111/74 (86) 94 01/19/21 03:23 57 22 50 01/19/21 03:15 55 22 111/74 (86) 94 01/19/21 03:00 22 115/78 Mechanical Ventilator 50 01/19/21 03:00 22 115/78 Mechanical Ventilator 50 01/19/21 03:00 54 21 115/78 (90) 95 01/19/21 02:45 57 16 110/76 (87) 95 01/19/21 02:30 55 22 112/71 (85) 95 01/19/21 02:27 22 110/73 Mechanical Ventilator 50 01/19/21 02:15 59 22 110/73 (85) 95 01/19/21 02:00 56 22 113/75 (88) 95 01/19/21 02:00 22 113/75 Mechanical Ventilator 50 01/19/21 02:00 22 113/78 Mechanical Ventilator 50 01/19/21 01:45 58 22 110/73 (85) 95 01/19/21 01:30 59 22 108/73 (85) 95 01/19/21 01:15 59 22 112/66 (81) 96 01/19/21 01:00 22 108/58 Mechanical Ventilator 50 01/19/21 01:00 22 108/58 Mechanical Ventilator 50 01/19/21 01:00 57 22 106/65 (79) 96 01/19/21 00:45 57 22 105/68 (80) 95 01/19/21 00:30 60 22 109/70 (83) 96 01/19/21 00:15 65 22 112/72 (85) 97 01/19/21 00:00 50 01/19/21 00:00 99.8 70 22 104/64 (77) 96 01/19/21 00:00 73 01/19/21 00:00 22 104/64 Mechanical Ventilator 50 01/19/21 00:00 22 104/64 Mechanical Ventilator 50 01/19/21 00:00 Mechanical Ventilator 01/18/21 23:45 80 22 99/56 (70) 95 01/18/21 23:30 76 22 89/49 (62) 93 01/18/21 23:20 83 22 50 01/18/21 23:15 74 22 93/53 (66) 94 01/18/21 23:00 22 89/56 Mechanical Ventilator 50 01/18/21 23:00 22 89/56 Mechanical Ventilator 50 01/18/21 23:00 73 22 101/56 (71) 93 01/18/21 22:45 76 22 99/56 (70) 93 01/18/21 22:30 74 22 97/50 (66) 91 01/18/21 22:15 67 22 95/58 (70) 91 01/18/21 22:00 22 95/58 Mechanical Ventilator 50 01/18/21 22:00 22 95/58 Mechanical Ventilator 50 01/18/21 22:00 65 22 98/57 (71) 92 01/18/21 21:58 22 100/57 Mechanical Ventilator 50 01/18/21 21:45 68 22 100/57 (71) 92 01/18/21 21:30 73 22 87/50 (62) 93 01/18/21 21:15 74 22 84/47 (59) 93 01/18/21 21:00 69 22 99/59 (72) 92 01/18/21 21:00 22 84/47 Mechanical Ventilator 50 01/18/21 21:00 22 84/47 Mechanical Ventilator 50 01/18/21 20:45 67 22 96/58 (71) 92 01/18/21 20:30 67 22 99/61 (74) 91 01/18/21 20:15 70 22 99/61 (74) 91 01/18/21 20:00 Mechanical Ventilator 01/18/21 20:00 68 01/18/21 20:00 22 99/61 Mechanical Ventilator 50 01/18/21 20:00 22 99/61 Mechanical Ventilator 50 01/18/21 20:00 98.7 71 22 101/61 (74) 91 01/18/21 20:00 50 01/18/21 19:45 73 22 103/74 (84) 95 01/18/21 19:41 82 22 50 01/18/21 19:30 71 22 101/62 (75) 92 01/18/21 19:00 22 91/50 Mechanical Ventilator 22 01/18/21 19:00 22 91/50 Mechanical Ventilator 50 01/18/21 19:00 77 22 91/50 (64) 93 01/18/21 18:30 75 22 91/50 (64) 94 01/18/21 18:00 22 94/57 Non-Rebreather 50 01/18/21 18:00 22 94/57 Mechanical Ventilator 50 01/18/21 18:00 66 22 94/57 (69) 93 01/18/21 17:30 57 22 106/75 (85) 95 01/18/21 17:00 22 109/71 Mechanical Ventilator 50 01/18/21 17:00 22 109/71 Mechanical Ventilator 50 01/18/21 17:00 59 22 109/71 (84) 95 01/18/21 16:30 55 22 108/70 (83) 93 01/18/21 16:00 98.5 57 22 104/69 (81) 92 01/18/21 16:00 Mechanical Ventilator 01/18/21 16:00 60 01/18/21 16:00 22 104/69 Mechanical Ventilator 50 01/18/21 16:00 22 104/69 Mechanical Ventilator 50 01/18/21 15:56 50 01/18/21 15:30 64 22 108/68 (81) 91 01/18/21 15:16 53 22 50 01/18/21 15:00 67 14 103/71 (82) 94 01/18/21 15:00 22 103/74 Mechanical Ventilator 50 01/18/21 15:00 22 103/72 Mechanical Ventilator 50 01/18/21 14:30 55 22 133/85 (101) 100 01/18/21 14:22 22 122/73 Mechanical Ventilator 50 01/18/21 14:00 57 22 121/78 (92) 100 01/18/21 14:00 22 121/78 Mechanical Ventilator 50 01/18/21 14:00 22 121/78 Mechanical Ventilator 22 01/18/21 13:30 58 22 127/81 (96) 100 01/18/21 13:00 56 22 124/79 (94) 100 01/18/21 13:00 22 122/80 Mechanical Ventilator 35 01/18/21 13:00 22 122/80 Mechanical Ventilator 35 01/18/21 12:30 57 22 130/82 (98) 100 01/18/21 12:15 50 01/18/21 12:00 58 01/18/21 12:00 Mechanical Ventilator 01/18/21 12:00 50 01/18/21 12:00 22 134/80 Mechanical Ventilator 35 01/18/21 12:00 22 135/80 35 01/18/21 12:00 35 01/18/21 12:00 99.5 58 22 128/89 (102) 100 Intake and Output 01/18/21 01/19/21 19:00 07:00 Intake Total 1982.150 ml 1737.749 ml Output Total 1070 ml 735 ml Balance 912.150 ml 1002.749 ml Free Water 150 ml 300 ml IV Total 1652.150 ml 1137.749 ml Tube Feeding 120 ml 300 ml Other 60 ml Output Urine Total 1070 ml 735 ml Laboratory Tests 01/18/21 13:23: Arterial Blood pH 7.457H, Arterial Blood Partial Pressure CO2 32.0L, Arterial Blood Partial Pressure O2 97.9, Arterial Blood HCO3 22.1, Arterial Blood Oxygen Saturation 97.3, Arterial Blood Base Excess -0.9, Miguelito Test Positive 01/18/21 17:30: White Blood Count 8.2, Red Blood Count 4.32L, Hemoglobin 12.5L, Hematocrit 39.1L , Mean Corpuscular Volume 90, Mean Corpuscular Hemoglobin 28.9, Mean Corpuscular Hemoglobin Concent 31.9L, Red Cell Distribution Width 14.4, Platelet Count 213, Mean Platelet Volume 9.5, Neutrophils (%) (Auto) 78.9H, Lymphocytes (%) (Auto) 11.8L, Monocytes (%) (Auto) 6.1, Eosinophils (%) (Auto) 0.1, Basophils (%) (Auto) 3.2H, Sodium Level 139, Potassium Level 4.4, Chloride Level 106, Carbon Dioxide Level 23, Anion Gap 10, Blood Urea Nitrogen 17, Creatinine 0.7, Estimat Glomerular Filtration Rate > 60, Glucose Level 262H, Calcium Level 8.4L 01/19/21 05:20: White Blood Count 9.2, Red Blood Count 4.34L, Hemoglobin 12.3L, Hematocrit 39.5L , Mean Corpuscular Volume 91, Mean Corpuscular Hemoglobin 28.3, Mean Corpuscular Hemoglobin Concent 31.2L, Red Cell Distribution Width 14.7, Platelet Count 215, Mean Platelet Volume 10.6H, Neutrophils (%) (Auto) 77.7H, Lymphocytes (%) (Auto) 17.5L, Monocytes (%) (Auto) 4.1, Eosinophils (%) (Auto) 0.0, Basophils (%) (Auto) 0.6, Sodium Level 138, Potassium Level 4.0, Chloride Level 105, Carbon Dioxide Level 23, Anion Gap 10, Blood Urea Nitrogen 16, Creatinine 0.8, Estimat Glomerular Filtration Rate > 60, Glucose Level 292H, Calcium Level 8.0L, Prothrombin Time 26.8H, Prothromb Time International Ratio 2.6H, Phosphorus Level 3.1, Magnesium Level 2.1, Total Bilirubin 0.4, Aspartate Amino Transf (AST/SGOT) 14L, Alanine Aminotransferase (ALT/SGPT) 20, Alkaline Phosphatase 47, C-Reactive Protein, Quantitative 3.6H, Pro-B-Type Natriuretic Peptide 209H, Total Protein 5.5L, Albumin 1.7L, Globulin 3.8, Albumin/Globulin Ratio 0.4L Height (Feet): 5 Height (Inches): 5.00 Weight (Pounds): 233 Avi Frye MD Jan 19, 2021 11:34
[2021-01-19] MEDS: fentaNYL 2500mcg/NS 250ml 250 ML IV SCH (16:15)
[2021-01-19] MEDS ORDERED: Warfarin Sodium 2.5mg ORAL SCH (17:00)
--- NOTE | 2021-01-19 17:51 | Internal Med Progress Note ---
Subjective Date of Service: Jan 19, 2021 Physician Name Brown,Vickey Attending Physician Geovanny Bradley MD Current Medications Medications (Trade) Dose Ordered Sig/Johnny Route PRN Reason Start Time Stop Time Status Last Admin Dose Admin Acetaminophen (Tylenol) 650 mg Q6H PRN NG Temp >100.5 01/09/21 09:15 02/08/21 09:14 01/14/21 21:28 Acetaminophen (Tylenol) 650 mg Q6H PRN NG Mild Pain (Pain Scale 1-3) 01/09/21 09:15 02/08/21 09:14 Albuterol Sulfate (Proventil I) 2 puff Q6HRT INH 01/02/21 19:00 04/02/21 18:59 01/19/21 13:00 Benztropine Mesylate (Cogentin) 1 mg EVERY 12 HOURS NG 01/09/21 09:15 02/01/21 09:14 01/19/21 08:43 Chlorhexidine Gluconate (Myranda-Hex 2%) 1 applic DAILY@2000 TOPIC 01/12/21 20:00 04/12/21 19:59 01/18/21 20:22 Dextrose (Dextrose 50%) 25 ml Q30M PRN IV Hypoglycemia 01/06/21 23:45 04/06/21 23:44 Dextrose (Dextrose 50%) 50 ml Q30M PRN IV Hypoglycemia 01/06/21 23:45 04/06/21 23:44 Divalproex Sodium (Depakote Sprinkles) 500 mg Q12HR GT 01/13/21 21:00 02/12/21 20:59 01/19/21 08:43 Fentanyl Citrate 250 ml @ 1 mls/hr Q24H IV 01/18/21 02:00 01/20/21 01:59 01/19/21 16:15 Insulin Aspart (NovoLOG) EVERY 6 HOURS SUBQ 01/09/21 12:00 04/04/21 16:29 01/19/21 13:03 Ipratropium [place] (Atrovent Inh) 1 puffs Q6HRT INH 01/02/21 19:00 02/01/21 18:59 01/19/21 13:00 Lansoprazole (Prevacid) 30 mg DAILY GT 01/16/21 09:00 02/15/21 08:59 01/19/21 08:43 Methylprednisolone Sodium Succinate (Solu-MEDROL) 10 mg DAILY IVP 01/20/21 09:00 04/16/21 20:59 Midazolam HCl 200 ml @ 0 mls/hr Q24H PRN IV Agitation (RASS -2) 01/17/21 00:00 01/24/21 00:00 01/19/21 16:30 Ondansetron HCl (Zofran) 4 mg Q4H PRN IVP Nausea & Vomiting 01/02/21 08:15 02/01/21 08:14 Piperacillin Sod/ Tazobactam Sod 3.375 gm/Sodium Chloride 110 ml @ 27.5 mls/hr EVERY 8 HOURS IVPB 01/13/21 14:00 01/20/21 13:59 01/19/21 15:00 Sodium Chloride 1,000 ml @ 75 mls/hr [id number] IV 01/08/21 11:00 02/07/21 10:59 01/19/21 13:04 Warfarin Sodium (Coumadin per pharmacy) 1 ea DAILY PRN MISC Per rx protocol 01/02/21 08:30 02/01/21 08:29 Warfarin Sodium (Coumadin) 2.5 mg COUMADIN ORAL 01/19/21 17:00 01/19/21 19:00 Allergies: Coded Allergies: No Known Allergies (Unverified , 01/02/21) ROS Limited/Unobtainable: Yes Subjective 60 YO M admitted with shortness of breath. Now respiratory failure. Cover for [facility]. ICU. Intubated and sedated Objective Last Vital Signs Date Time Temp Pulse Resp B/P (MAP) Pulse Ox O2 Delivery O2 Flow Rate FiO2 01/19/21 16:30 29 102/59 Mechanical Ventilator 50 01/19/21 16:30 97.5 78 96 01/14/21 03:33 15.0 Laboratory Tests Test 01/19/21 05:20 White Blood Count 9.2 K/UL (4.8-10.8) Red Blood Count 4.34 M/UL (4.70-6.10) L Hemoglobin 12.3 G/DL (14.2-18.0) L Hematocrit 39.5 % (42.0-52.0) L Mean Corpuscular Volume 91 FL (80-99) Mean Corpuscular Hemoglobin 28.3 PG (27.0-31.0) Mean Corpuscular Hemoglobin Concent 31.2 G/DL (32.0-36.0) L Red Cell Distribution Width 14.7 % (11.6-14.8) Platelet Count 215 K/UL (150-450) Mean Platelet Volume 10.6 FL (6.5-10.1) H Neutrophils (%) (Auto) 77.7 % (45.0-75.0) H Lymphocytes (%) (Auto) 17.5 % (20.0-45.0) L Monocytes (%) (Auto) 4.1 % (1.0-10.0) Eosinophils (%) (Auto) 0.0 % (0.0-3.0) Basophils (%) (Auto) 0.6 % (0.0-2.0) Prothrombin Time 26.8 SEC (9.30-11.50) H Prothromb Time International Ratio 2.6 (0.9-1.1) H Sodium Level 138 MMOL/L (136-145) Potassium Level 4.0 MMOL/L (3.5-5.1) Chloride Level 105 MMOL/L (98-107) Carbon Dioxide Level 23 MMOL/L (21-32) Anion Gap 10 mmol/L (5-15) Blood Urea Nitrogen 16 mg/dL (7-18) Creatinine 0.8 MG/DL (0.55-1.30) Estimat Glomerular Filtration Rate > 60 mL/min (>60) Glucose Level 292 MG/DL (74-106) H Calcium Level 8.0 MG/DL (8.5-10.1) L Phosphorus Level 3.1 MG/DL (2.5-4.9) Magnesium Level 2.1 MG/DL (1.8-2.4) Total Bilirubin 0.4 MG/DL (0.2-1.0) Aspartate Amino Transf (AST/SGOT) 14 U/L (15-37) L Alanine Aminotransferase (ALT/SGPT) 20 U/L (12-78) Alkaline Phosphatase 47 U/L (46-116) C-Reactive Protein, Quantitative 3.6 mg/dL (0.00-0.90) H Pro-B-Type Natriuretic Peptide 209 pg/mL (0-125) H Total Protein 5.5 G/DL (6.4-8.2) L Albumin 1.7 G/DL (3.4-5.0) L Globulin 3.8 g/dL Albumin/Globulin Ratio 0.4 (1.0-2.7) L Intake and Output 01/18/21 01/19/21 19:00 07:00 Intake Total 1982.150 ml 1737.749 ml Output Total 1070 ml 735 ml Balance 912.150 ml 1002.749 ml Free Water 150 ml 300 ml IV Total 1652.150 ml 1137.749 ml Tube Feeding 120 ml 300 ml Other 60 ml Output Urine Total 1070 ml 735 ml Objective Objective General: awake, responsive , confused. HEENT: NCAT, sclera anicteric, PERRL, EOMI. Neck: Supple, no significant jugular venous distention, Lungs: mech vent; decreased air at the bases, occasional crackles, no Wheeze. Heart: Regular rate and rhythm, normal S1/S2, no murmurs Abdomen: soft, nontender, nondistended. Normoactive bowel sound, obesity. / Rectal: Refused and deferred. Extremities: Left LE: No Cyanosis , clubbing or edema. Right LE AKA. Neuro: A&O x 2, Able to move all extremities Skin: warm, no rashes or lesions. Assessment/Plan Assessment/Plan Assessment/Plan Assessment/Plan (1) Pneumonia due to COVID-19 virus ICD Codes: U07.1 - COVID-19; J12.82 - Pneumonia due to coronavirus disease 2018 SNOMED: 792735802854135833 (2) Acute hypercapnic respiratory failure ICD Codes: J96.02 - Acute respiratory failure with hypercapnia SNOMED: 938590090 (3) Respiratory failure with hypoxia ICD Codes: J96.91 - Respiratory failure, unspecified with hypoxia SNOMED: 02824313383572307 Qualifiers: Qualified Codes: J96.01 - Acute respiratory failure with hypoxia (4) COPD (chronic obstructive pulmonary disease) ICD Codes: J44.9 - Chronic obstructive pulmonary disease, unspecified SNOMED: 31639820 (5) History of deep venous thrombosis or pulmonary embolus SNOMED: 255895175 (6) Obesity ICD Codes: E66.9 - Obesity, unspecified SNOMED: 219863891, 114218206 (7) Essential hypertension ICD Codes: I10 - Essential (primary) hypertension SNOMED: 67029348 (8) Diabetes mellitus type 2 in obese ICD Codes: E11.69 - Type 2 diabetes mellitus with other specified complication; E66.9 - Obesity, unspecified SNOMED: 18099741 (9) History of hydrocephalus ICD Codes: Z86.69 - Personal history of other diseases of the nervous system and sense organs SNOMED: 620422391 (10) Schizophrenia ICD Codes: F20.9 - Schizophrenia, unspecified SNOMED: 02233205 (11) Bipolar 1 disorder ICD Codes: F31.9 - Bipolar disorder, unspecified SNOMED: 199218558 (12) Anticoagulant long-term use ICD Codes: Z79.01 - senior care (current) use of anticoagulants SNOMED: 564957972 13. Sepsis=gram pos cocci Assessment/Plan: Optimize pulmonary hygiene/mobilize as tolerated Non Rebreather mask>BIPAP>intubated On Remdesivir IV Solu-Medrol 40 mg IV twice a day. Abx =zosyn and S/P vanco F/U Cx's Monitor volumes and renal function DVT Px: Coumadin DC IV fluid Start diet Monitor blood glucose level closely. On levophed, fentanyl and propofol drips Pulmonary=Dr Luis ID=Vickey Mtz MD Jan 19, 2021 17:51
[2021-01-19] MEDS: Dyna-Hex 2% Top Sol 2oz TOPIC SCH (20:15)
--- NOTE | 2021-01-19 20:23 | Pulmonology Progress Note ---
Subjective ROS Limited/Unobtainable: Yes Allergies: Coded Allergies: No Known Allergies (Unverified , 01/02/21) Objective Last 24 Hour Vital Signs Date Time Temp Pulse Resp B/P (MAP) Pulse Ox O2 Delivery O2 Flow Rate FiO2 01/19/21 19:46 65 22 50 01/19/21 19:00 66 22 113/72 (86) 97 01/19/21 19:00 22 113/72 Mechanical Ventilator 100 01/19/21 19:00 22 113/72 Mechanical Ventilator 50 01/19/21 18:30 67 22 111/67 (82) 97 01/19/21 18:00 69 22 110/73 (85) 97 01/19/21 18:00 22 110/73 Mechanical Ventilator 50 01/19/21 18:00 22 110/73 Mechanical Ventilator 50 01/19/21 17:30 71 22 112/70 (84) 97 01/19/21 17:00 16 111/64 Mechanical Ventilator 50 01/19/21 17:00 16 111/64 Mechanical Ventilator 50 01/19/21 17:00 73 22 108/71 (83) 97 01/19/21 16:30 29 102/59 Mechanical Ventilator 50 01/19/21 16:30 97.5 78 22 98/63 (75) 96 01/19/21 16:15 24 102/69 Mechanical Ventilator 50 01/19/21 16:00 Mechanical Ventilator 01/19/21 16:00 77 01/19/21 16:00 88 22 99/60 (73) 96 01/19/21 16:00 50 01/19/21 15:45 82 22 50 01/19/21 15:30 98 22 67/55 (59) 95 01/19/21 15:00 67 22 111/71 (84) 94 01/19/21 15:00 16 126/76 Mechanical Ventilator 50 01/19/21 15:00 16 126/76 Mechanical Ventilator 50 01/19/21 14:30 66 22 105/55 (72) 94 01/19/21 14:00 72 19 92/55 (67) 93 21 14:00 20 103/68 Mechanical Ventilator 50 21 14:00 20 103/68 Mechanical Ventilator 50 01/19/21 13:30 93 22 97/64 (75) 95 01/19/21 13:05 50 2/20/21 13:00 93 22 97/64 (75) 95 220/21 13:00 24 99/67 Mechanical Ventilator 50 2/21 13:00 24 99/67 Mechanical Ventilator 50 2/21 13:00 94 220/21 13:00 50 220/21 12:30 97.9 108 31 97/55 (69) 93 220/21 12:00 50 2/21 12:00 104 28 115/66 (82) 93 21 12:00 113 221 12:00 39 96/59 Mechanical Ventilator 50 21 12:00 39 96/59 Mechanical Ventilator 50 21 12:00 Mechanical Ventilator 01/19/21 11:30 107 26 115/66 (82) 88 01/19/21 11:17 80 22 50 220/21 11:00 33 115/65 Mechanical Ventilator 50 21 11:00 33 115/65 Mechanical Ventilator 50 01/19/21 11:00 75 22 120/71 (87) 90 01/19/21 10:30 66 22 103/61 (75) 91 01/19/21 10:30 75 22 110/66 (81) 91 01/19/21 10:00 73 22 88/52 (64) 93 01/19/ 10:00 19 99/62 Mechanical Ventilator 50 01/19/21 10:00 19 99/62 Mechanical Ventilator 50 01/19/21 09:30 98.3 80 22 94/56 (69) 93 01/19/ 09:00 92 22 90/49 (63) 93 01/19/21 09:00 19 95/60 Mechanical Ventilator 50 01/19/21 09:00 19 95/60 Mechanical Ventilator 50 01/19/21 08:30 83 22 103/65 (78) 91 01/19/21 08:00 89 22 104/63 (77) 92 20/21 08:00 50 01/19/21 08:00 69 220/21 08:00 Mechanical Ventilator 220/21 08:00 18 97/58 Mechanical Ventilator 50 20/21 08:00 18 97/58 Mechanical Ventilator 50 01/19/21 07:45 86 22 50 220/21 07:30 87 18 99/75 (83) 92 220/21 07:00 16 95/63 Mechanical Ventilator 50 01/19/21 07:00 16 95/63 Mechanical Ventilator 50 01/19/21 07:00 87 22 95/53 (67) 93 01/19/21 06:15 98.3 98 22 98/57 (71) 94 01/19/21 06:00 22 98/57 Mechanical Ventilator 50 01/19/21 06:00 22 98/57 Mechanical Ventilator 50 01/19/21 06:00 90 12 101/56 (71) 93 01/19/21 05:45 81 22 97/51 (66) 93 01/19/21 05:30 76 22 85/46 (59) 92 01/19/21 05:17 69 22 83/59 (67) 92 01/19/21 05:15 69 22 88/45 (59) 92 01/19/21 05:00 71 22 81/40 (54) 92 01/19/21 05:00 22 98/56 Mechanical Ventilator 50 01/19/21 05:00 22 98/56 Mechanical Ventilator 50 01/19/21 04:45 69 22 92/51 (65) 92 01/19/21 04:30 66 22 99/61 (74) 93 01/19/21 04:15 68 22 99/59 (72) 93 01/19/21 04:00 50 01/19/21 04:00 22 111/74 Mechanical Ventilator 50 01/19/21 04:00 22 111/74 Mechanical Ventilator 50 01/19/21 04:00 58 21 111/77 (88) 93 01/19/21 04:00 Mechanical Ventilator 01/19/21 04:00 61 01/19/21 03:45 98.3 56 22 117/75 (89) 93 01/19/21 03:30 61 16 111/74 (86) 94 01/19/21 03:23 57 22 50 01/19/21 03:15 55 22 111/74 (86) 94 01/19/21 03:00 22 115/78 Mechanical Ventilator 50 01/19/21 03:00 22 115/78 Mechanical Ventilator 50 01/19/21 03:00 54 21 115/78 (90) 95 01/19/21 02:45 57 16 110/76 (87) 95 01/19/21 02:30 55 22 112/71 (85) 95 01/19/21 02:27 22 110/73 Mechanical Ventilator 50 01/19/21 02:15 59 22 110/73 (85) 95 01/19/21 02:00 56 22 113/75 (88) 95 01/19/21 02:00 22 113/75 Mechanical Ventilator 50 01/19/21 02:00 22 113/78 Mechanical Ventilator 50 01/19/21 01:45 58 22 110/73 (85) 95 01/19/21 01:30 59 22 108/73 (85) 95 01/19/21 01:15 59 22 112/66 (81) 96 01/19/21 01:00 22 108/58 Mechanical Ventilator 50 01/19/21 01:00 22 108/58 Mechanical Ventilator 50 01/19/21 01:00 57 22 106/65 (79) 96 01/19/21 00:45 57 22 105/68 (80) 95 01/19/21 00:30 60 22 109/70 (83) 96 01/19/21 00:15 65 22 112/72 (85) 97 01/19/21 00:00 50 01/19/21 00:00 99.8 70 22 104/64 (77) 96 01/19/21 00:00 73 01/19/21 00:00 22 104/64 Mechanical Ventilator 50 01/19/21 00:00 22 104/64 Mechanical Ventilator 50 01/19/21 00:00 Mechanical Ventilator 01/18/21 23:45 80 22 99/56 (70) 95 01/18/21 23:30 76 22 89/49 (62) 93 01/18/21 23:20 83 22 50 01/18/21 23:15 74 22 93/53 (66) 94 01/18/21 23:00 22 89/56 Mechanical Ventilator 50 01/18/21 23:00 22 89/56 Mechanical Ventilator 50 01/18/21 23:00 73 22 101/56 (71) 93 01/18/21 22:45 76 22 99/56 (70) 93 01/18/21 22:30 74 22 97/50 (66) 91 01/18/21 22:15 67 22 95/58 (70) 91 01/18/21 22:00 22 95/58 Mechanical Ventilator 50 01/18/21 22:00 22 95/58 Mechanical Ventilator 50 01/18/21 22:00 65 22 98/57 (71) 92 01/18/21 21:58 22 100/57 Mechanical Ventilator 50 01/18/21 21:45 68 22 100/57 (71) 92 01/18/21 21:30 73 22 87/50 (62) 93 01/18/21 21:15 74 22 84/47 (59) 93 01/18/21 21:00 69 22 99/59 (72) 92 01/18/21 21:00 22 84/47 Mechanical Ventilator 50 01/18/21 21:00 22 84/47 Mechanical Ventilator 50 01/18/21 20:45 67 22 96/58 (71) 92 01/18/21 20:30 67 22 99/61 (74) 91 Intake and Output 01/18/21 01/19/21 19:00 07:00 Intake Total 1982.150 ml 1875.749 ml Output Total 1070 ml 735 ml Balance 912.150 ml 1140.749 ml Free Water 150 ml 300 ml IV Total 1652.150 ml 1245.749 ml Tube Feeding 120 ml 330 ml Other 60 ml Output Urine Total 1070 ml 735 ml Laboratory Tests 01/19/21 05:20: White Blood Count 9.2, Red Blood Count 4.34L, Hemoglobin 12.3L, Hematocrit 39.5L , Mean Corpuscular Volume 91, Mean Corpuscular Hemoglobin 28.3, Mean Corpuscular Hemoglobin Concent 31.2L, Red Cell Distribution Width 14.7, Platelet Count 215, Mean Platelet Volume 10.6H, Neutrophils (%) (Auto) 77.7H, Lymphocytes (%) (Auto) 17.5L, Monocytes (%) (Auto) 4.1, Eosinophils (%) (Auto) 0.0, Basophils (%) (Auto) 0.6, Prothrombin Time 26.8H, Prothromb Time International Ratio 2.6H, Sodium Level 138, Potassium Level 4.0, Chloride Level 105, Carbon Dioxide Level 23, Anion Gap 10, Blood Urea Nitrogen 16, Creatinine 0.8, Estimat Glomerular Filtration Rate > 60, Glucose Level 292H, Calcium Level 8.0L, Phosphorus Level 3.1, Magnesium Level 2.1, Total Bilirubin 0.4, Aspartate Amino Transf (AST/SGOT) 14L, Alanine Aminotransferase (ALT/SGPT) 20, Alkaline Phosphatase 47, C-Reactive Protein, Quantitative 3.6H, Pro-B-Type Natriuretic Peptide 209H, Total Protein 5.5L, Albumin 1.7L, Globulin 3.8, Albumin/Globulin Ratio 0.4L Current Medications Medications (Trade) Dose Ordered Sig/Johnny Route PRN Reason Start Time Stop Time Status Last Admin Dose Admin Acetaminophen (Tylenol) 650 mg Q6H PRN NG Temp >100.5 01/09/21 09:15 02/08/21 09:14 01/14/21 21:28 Acetaminophen (Tylenol) 650 mg Q6H PRN NG Mild Pain (Pain Scale 1-3) 01/09/21 09:15 02/08/21 09:14 Albuterol Sulfate (Proventil MDI) 2 puff Q6HRT INH 01/02/21 19:00 04/02/21 18:59 01/19/21 19:46 Benztropine Mesylate (Cogentin) 1 mg EVERY 12 HOURS NG 01/09/21 09:15 02/01/21 09:14 01/19/21 08:43 Chlorhexidine Gluconate (Myranda-Hex 2%) 1 applic DAILY@2000 TOPIC 01/12/21 20:00 04/12/21 19:59 01/19/21 20:15 Dextrose (Dextrose 50%) 25 ml Q30M PRN IV Hypoglycemia 01/06/21 23:45 04/06/21 23:44 Dextrose (Dextrose 50%) 50 ml Q30M PRN IV Hypoglycemia 01/06/21 23:45 04/06/21 23:44 Divalproex Sodium (Depakote Sprinkles) 500 mg Q12HR GT 01/13/21 21:00 02/12/21 20:59 01/19/21 08:43 Fentanyl Citrate 250 ml @ 1 mls/hr Q24H IV 01/18/21 02:00 01/20/21 01:59 01/19/21 16:15 Insulin Aspart (NovoLOG) EVERY 6 HOURS SUBQ 01/09/21 12:00 04/04/21 16:29 01/19/21 18:56 Ipratropium [place] (Atrovent Inh) 1 puffs Q6HRT INH 01/02/21 19:00 02/01/21 18:59 01/19/21 19:46 Lansoprazole (Prevacid) 30 mg DAILY GT 01/16/21 09:00 02/15/21 08:59 01/19/21 08:43 Methylprednisolone Sodium Succinate (Solu-MEDROL) 10 mg DAILY IVP 01/20/21 09:00 04/16/21 20:59 Midazolam HCl 200 ml @ 0 mls/hr Q24H PRN IV Agitation (RASS -2) 01/17/21 00:00 01/24/21 00:00 01/19/21 16:30 Ondansetron HCl (Zofran) 4 mg Q4H PRN IVP Nausea & Vomiting 01/02/21 08:15 02/01/21 08:14 Piperacillin Sod/ Tazobactam Sod 3.375 gm/Sodium Chloride 110 ml @ 27.5 mls/hr EVERY 8 HOURS IVPB 01/13/21 14:00 01/20/21 13:59 01/19/21 15:00 Sodium Chloride 1,000 ml @ 75 mls/hr [id number] IV 01/08/21 11:00 02/07/21 10:59 01/19/21 13:04 Warfarin Sodium (Coumadin per pharmacy) 1 ea DAILY PRN MISC Per rx protocol 01/02/21 08:30 02/01/21 08:29 Assessment/Plan Assessment/Plan Pulmonary CCM Progress Note HPI Patient is a 60 man with prior h/o COPD, CPS/bipolar DO, 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 ID following and started on CTx/Azithro + REM + SM, CXR with bilateral infiltrates,ETT appropriate. Proning as tolerated Sedated in ICU on Ventilator, has OGT/central line PEEP at 5,maintaining O2 sats, FIO2 - 50%, did not tolerate weaning Pressure areas around ETT site - surgery/wound nurse following Allergies: Coded Allergies: No Known Allergies (Unverified , 01/02/21) PMH: COPD, CPS/bipolar DO, prior DVT/PE on AC, NHR, DM2, HTN and hydrocephalus Physical Exam Deferred Covid19 Vital Signs noted Laboratory Tests noted Imaging noted Height (Feet): 5 Height (Inches): 5.00 Weight (Pounds): 233 Medications Medications noted Assessment/Plan Problem List: (1) Pneumonia due to COVID-19 virus ICD Codes: U07.1 - COVID-19; J12.82 - Pneumonia due to coronavirus disease 2019 SNOMED: 749651665825488244 (2) Acute hypercapnic respiratory failure ICD Codes: J96.02 - Acute respiratory failure with hypercapnia SNOMED: 958959044 (3) Respiratory failure with hypoxia ICD Codes: J96.91 - Respiratory failure, unspecified with hypoxia SNOMED: 98641672597416892 Qualifiers: Qualified Codes: J96.01 - Acute respiratory failure with hypoxia (4) COPD (chronic obstructive pulmonary disease) ICD Codes: J44.9 - Chronic obstructive pulmonary disease, unspecified SNOMED: 32579315 (5) History of deep venous thrombosis or pulmonary embolus SNOMED: 934532918 (6) Obesity ICD Codes: E66.9 - Obesity, unspecified SNOMED: 954966387, 465270681 (7) Essential hypertension ICD Codes: I10 - Essential (primary) hypertension SNOMED: 56760687 (8) Diabetes mellitus type 2 in obese ICD Codes: E11.69 - Type 2 diabetes mellitus with other specified complication; E66.9 - Obesity, unspecified SNOMED: 09375589 (9) History of hydrocephalus ICD Codes: Z86.69 - Personal history of other diseases of the nervous system and sense organs SNOMED: 168036934 (10) Schizophrenia ICD Codes: F20.9 - Schizophrenia, unspecified SNOMED: 65454655 (11) Bipolar 1 disorder ICD Codes: F31.9 - Bipolar disorder, unspecified SNOMED: 777036958 (12) Anticoagulant long-term use ICD Codes: Z79.01 - assisted (current) use of anticoagulants SNOMED: 603771539 Assessment/Plan: ACVC - adjust PRN Prone as tolerated per protocol - reduce proning time given improvement Adjust FiO2 to keep SaO2 > 92% Reduce PEEP as tolerated Wean as tolerated Sedation PRN HFA's F/U inflammatory markers and covid labs ID recs REM per ID Wean SM to off - 10QD currently Abx per ID F/U Cx's Monitor volumes and renal function DVT Px: Coumadin TF when not proned FC Will probably need tracheostomy Anuel Luis MD Jan 19, 2021 20:23
[2021-01-20] VITALS (94 sets, daily range): BP systolic 5–143; BP diastolic 38–95
[2021-01-20] MEDS: Ipratropium Bromide Inhaler INH SCH ×4 (00:50→19:38)
[2021-01-20] MEDS: Albuterol 90mcg Inhaler 8gm INH SCH ×4 (00:51→19:38)
[2021-01-20] MEDS: fentaNYL 2500mcg/NS 250ml 250 ML IV SCH ×3 (02:48→15:17)
[2021-01-20] MEDS: Piperacillin/Tazobactam 3.375 GM in NS 110 ML IVPB SCH (05:45)
[2021-01-20] MEDS: NovoLOG Insulin Flexpen SUBQ SCH ×4 (05:46→23:58)
[2021-01-20 08:10] LABS: BASOPHILS % (AUTO) 0.6 % (0.0-2.0); EOSINOPHILS % (AUTO) 0.5 % (0.0-3.0); HEMOGLOBIN 11.2 G/DL (14.2-18.0); LYMPHOCYTES % (AUTO) 24.6 % (20.0-45.0); MEAN CORPUSCULAR VOLUME 90 FL (80-99); MONOCYTES % (AUTO) 4.6 % (1.0-10.0); NEUTROPHILS % (AUTO) 69.8 % (45.0-75.0); PLATELET COUNT 202 K/UL (150-450); RED BLOOD COUNT 3.91 M/UL (4.70-6.10); RED CELL DISTRIBUTION WIDTH 14.2 % (11.6-14.8); WHITE BLOOD COUNT 9.2 K/UL (4.8-10.8)
[2021-01-20 08:27] LABS: ANION GAP 6 mmol/L (5-15); BLOOD UREA NITROGEN 14 mg/dL (7-18); CALCIUM 7.6 MG/DL (8.5-10.1); CARBON DIOXIDE 27 MMOL/L (21-32); CHLORIDE 108 MMOL/L (98-107); CREATININE 0.7 MG/DL (0.55-1.30); POTASSIUM 3.1 MMOL/L (3.5-5.1); SODIUM 140 MMOL/L (136-145)
[2021-01-20 08:31] LABS: INR 2.1 (0.9-1.1)
[2021-01-20] MEDS: Lansoprazole 15mg cap GT SCH (09:05)
[2021-01-20] MEDS: Depakote 125mg Sprinkles GT SCH ×2 (09:05→21:09)
[2021-01-20] MEDS: Benztropine 1mg tab NG SCH ×2 (09:05→21:09)
[2021-01-20] MEDS: Solu-MEDROL 40mg Inj IVP SCH (09:06)
--- NOTE | 2021-01-20 09:38 | Diagnostic Imaging Report ---
EXAM: XR Chest, 1 View CLINICAL HISTORY: SOB TECHNIQUE: Frontal view of the chest. COMPARISON: Chest radiograph January 15, 2021. FINDINGS/IMPRESSION: Stable endotracheal tube and injected into Worsening patchy airspace consolidations, consistent with WORSENING MULTIFOCAL INFILTRATES. Small effusions, unchanged. No pneumothorax. Cardiomegaly.
[2021-01-20 10:34] LABS: ALANINE AMINOTRANSFERASE 18 U/L (12-78); ALBUMIN 1.5 G/DL (3.4-5.0); ALKALINE PHOSPHATASE 41 U/L (46-116); ASPARTATE AMINO TRANSFERASE 22 U/L (15-37); BILIRUBIN,DIRECT 0.1 MG/DL (0.0-0.3); BILIRUBIN,TOTAL 0.3 MG/DL (0.2-1.0)
[2021-01-20 12:09] LABS: PHOSPHORUS 2.8 MG/DL (2.5-4.9)
--- NOTE | 2021-01-20 12:38 | Nephrology Progress Note ---
Assessment/Plan Problem List: (1) Hyperkalemia (2) Pneumonia due to COVID-19 virus (3) Respiratory failure with hypoxia (4) Obesity (5) Schizophrenia (6) DMII (diabetes mellitus, type 2) Assessment Hyperkalemia Stable renal parameters Hyperglycemia Covid pneumonia due to COVID-19 virus Acute respiratory failure with hypoxia requiring mechanical ventilation History of COPD History of DVT, pulmonary emboli Obese Hypertension History of diabetes Psych condition, schizophrenia, bipolar disease Plan January 20: Status unchanged. Full code. On ventilator. Chest x-ray reviewed. IV fluid discontinued. Potassium supplement given. 1 dose of Lasix given. Albumin bolus given. Midodrine started. Will monitor renal parameters and electrolytes. Discussed with JOHAN Mohamud. January 19: Labs reviewed. Renal parameters stable. Remains full code intubated on ventilator. FiO2 50%. Continue per consultants. January 18: Full code. Intubated. On ventilator. FiO2 down to 35%. No labs drawn today. Continue to monitor renal parameters and electrolytes. January 17: Full code. Intubated on ventilator. FiO2 remains at 60%. Labs reviewed. Renal parameters stable. January 16: Full code. Intubated. Labs reviewed. Renal parameters stable. FiO2 60%. Continue per consultants. January 15: Patient remains intubated and full code. Labs reviewed. Stable renal parameters. January 14: Patient full code. Intubated on ventilator. On prone position until 5 PM. Labs reviewed. Stable from renal standpoint of view. January 13: Labs reviewed. Renal parameters stable. Continue per consultants. Patient remain full code and intubated on ventilator. January 12: Labs reviewed. Renal parameters stable. Patient remains full code. Remains intubated on ventilator and on prone position. Continue per consultants. January 11: Labs reviewed. Renal parameters stable. Continue per consultants. January 10: Labs reviewed. Renal parameters stable. Continue per consultants. Change IV to half-normal saline Kayexalate via NG tube for high potassium Monitor electrolytes and renal parameters Per orders, per consultants Subjective ROS Limited/Unobtainable: Yes Objective Objective Last 24 Hour Vital Signs Date Time Temp Pulse Resp B/P (MAP) Pulse Ox O2 Delivery O2 Flow Rate FiO2 01/20/21 11:42 112 25 70 01/20/21 10:00 22 108/64 Mechanical Ventilator 80 01/20/21 10:00 80 01/20/21 09:00 22 104/67 Mechanical Ventilator 22 01/20/21 09:00 22 104/67 Mechanical Ventilator 90 01/20/21 08:56 90 01/20/21 08:00 22 95/65 Mechanical Ventilator 100 01/20/21 08:00 22 95/65 Mechanical Ventilator 100 01/20/21 07:27 70 22 100 01/20/21 07:00 22 82/38 Mechanical Ventilator 100 01/20/21 07:00 22 82/38 Mechanical Ventilator 22 01/20/21 06:24 67 22 96/47 (63) 91 01/20/21 06:00 71 22 78/46 (57) 90 01/20/21 05:00 68 22 90/42 (58) 90 01/20/21 04:47 22 88/51 Mechanical Ventilator 100 01/20/21 04:45 68 22 84/40 (55) 91 01/20/21 04:42 69 23 87/38 (54) 91 01/20/21 04:39 69 22 80/42 (55) 91 01/20/21 04:35 68 22 70/39 (49) 91 01/20/21 04:34 68 22 69/40 (50) 92 01/20/21 04:30 68 22 68/39 (49) 92 01/20/21 04:22 67 21 82/48 (59) 92 01/20/21 04:15 61 22 75/41 (52) 91 01/20/21 04:06 59 22 83/45 (58) 92 01/20/21 04:00 50 01/20/21 04:00 60 22 79/44 (56) 92 01/20/21 04:00 60 22 79/44 (56) 92 01/20/21 04:00 61 01/20/21 04:00 Mechanical Ventilator 01/20/21 03:47 60 22 81/44 (56) 93 01/20/21 03:47 12 88/43 Mechanical Ventilator 100 01/20/21 03:45 60 22 78/45 (56) 93 01/20/21 03:30 59 22 86/49 (61) 93 01/20/21 03:17 59 22 82/50 (61) 93 01/20/21 03:15 59 22 83/50 (61) 93 01/20/21 03:15 59 22 83/50 (61) 93 01/20/21 03:03 18 91/53 Mechanical Ventilator 100 01/20/21 03:00 59 22 83/49 (60) 94 01/20/21 02:48 18 88/53 Mechanical Ventilator 100 01/20/21 02:48 14 91/46 Mechanical Ventilator 95 01/20/21 02:46 59 22 80/48 (59) 93 01/20/21 02:45 60 22 85/49 (61) 94 01/20/21 02:30 60 22 92/54 (67) 94 01/20/21 02:15 60 22 88/56 (67) 92 01/20/21 02:00 61 22 97/67 (77) 94 01/20/21 01:51 18 89/47 Mechanical Ventilator 100 01/20/21 01:45 64 22 102/65 (77) 94 01/20/21 01:30 68 22 102/65 (77) 95 01/20/21 01:15 72 20 97/63 (74) 88 01/20/21 01:14 100 01/20/21 01:00 65 22 95/59 (71) 87 01/20/21 00:51 18 101/73 Mechanical Ventilator 100 01/20/21 00:45 61 22 50 01/20/21 00:45 70 15 96/64 (75) 96 01/20/21 00:30 56 22 116/74 (88) 98 01/20/21 00:15 56 22 113/72 (86) 98 01/20/21 00:00 58 22 115/75 (88) 98 01/20/21 00:00 58 22 115/75 (88) 98 01/20/21 00:00 Mechanical Ventilator 01/20/21 00:00 64 01/19/21 23:51 18 99/56 Mechanical Ventilator 50 01/19/21 23:45 56 22 112/73 (86) 98 01/19/21 23:30 58 22 107/71 (83) 98 01/19/21 23:15 58 22 106/71 (83) 98 01/19/21 23:00 59 22 110/68 (82) 98 01/19/21 22:51 18 116/73 Mechanical Ventilator 50 01/19/21 22:51 18 113/73 Mechanical Ventilator 60 01/19/21 22:45 60 22 113/74 (87) 98 2021 22:30 60 22 113/69 (84) 98 21 22:15 60 22 107/67 (80) 98 21 22:00 18 113/66 Mechanical Ventilator 60 21 22:00 63 22 104/62 (76) 98 2021 21:45 62 22 106/67 (80) 98 21 21:30 64 22 106/64 (78) 97 21 21:15 64 22 104/68 (80) 97 2021 21:00 65 22 107/66 (80) 97 21 21:00 18 101/56 Mechanical Ventilator 100 01/19/21 20:30 65 22 109/67 (81) 97 01/19/21 20:15 65 22 106/68 (81) 98 01/19/21 20:00 68 22 105/62 (76) 98 01/19/21 20:00 71 01/19/21 20:00 Mechanical Ventilator 01/19/21 20:00 18 106/57 Mechanical Ventilator 60 01/19/21 20:00 50 01/19/21 19:46 65 22 50 20/21 19:45 64 22 109/66 (80) 97 01/19/21 19:30 66 22 110/69 (83) 97 01/19/21 19:15 66 22 112/66 (81) 97 01/19/21 19:00 66 22 113/72 (86) 97 01/19/21 19:00 22 113/72 Mechanical Ventilator 100 01/19/21 19:00 22 113/72 Mechanical Ventilator 50 01/19/21 19:00 66 22 113/72 (86) 97 01/19/21 18:45 66 22 112/69 (83) 96 01/19/21 18:30 67 22 111/67 (82) 97 21 18:30 67 22 111/67 (82) 97 21 18:15 68 22 111/68 (82) 97 21 18:00 69 22 110/73 (85) 97 21 18:00 69 22 110/73 (85) 97 21 18:00 22 110/73 Mechanical Ventilator 50 01/19/21 18:00 22 110/73 Mechanical Ventilator 50 01/19/21 17:30 71 22 112/70 (84) 97 01/19/21 17:00 16 111/64 Mechanical Ventilator 50 21 17:00 16 111/64 Mechanical Ventilator 50 21 17:00 73 22 108/71 (83) 97 01/19/21 16:30 29 102/59 Mechanical Ventilator 50 01/19/21 16:30 97.5 78 22 98/63 (75) 96 01/19/21 16:15 24 102/69 Mechanical Ventilator 50 01/19/21 16:00 Mechanical Ventilator 01/19/21 16:00 77 01/19/21 16:00 88 22 99/60 (73) 96 01/19/21 16:00 50 01/19/21 15:45 82 22 50 01/19/21 15:30 98 22 67/55 (59) 95 01/19/21 15:00 67 22 111/71 (84) 94 01/19/21 15:00 16 126/76 Mechanical Ventilator 50 01/19/21 15:00 16 126/76 Mechanical Ventilator 50 01/19/21 14:30 66 22 105/55 (72) 94 01/19/21 14:00 72 19 92/55 (67) 93 01/19/21 14:00 20 103/68 Mechanical Ventilator 50 01/19/21 14:00 20 103/68 Mechanical Ventilator 50 01/19/21 13:30 93 22 97/64 (75) 95 01/19/21 13:05 50 01/19/21 13:00 93 22 97/64 (75) 95 01/19/21 13:00 24 99/67 Mechanical Ventilator 50 01/19/21 13:00 24 99/67 Mechanical Ventilator 50 01/19/21 13:00 94 01/19/21 13:00 50 Intake and Output 01/19/21 01/20/21 19:00 07:00 Intake Total 2200.0 ml 811.5 ml Output Total 945 ml 1500 ml Balance 1255.0 ml -688.5 ml Free Water 280 ml IV Total 1650.0 ml 691.5 ml Tube Feeding 270 ml 120 ml Output Urine Total 945 ml 1500 ml Current Medications Medications (Trade) Dose Ordered Sig/Johnny Route PRN Reason Start Time Stop Time Status Last Admin Dose Admin Acetaminophen (Tylenol) 650 mg Q6H PRN NG Temp >100.5 01/09/21 09:15 02/08/21 09:14 01/14/21 21:28 Acetaminophen (Tylenol) 650 mg Q6H PRN NG Mild Pain (Pain Scale 1-3) 01/09/21 09:15 02/08/21 09:14 Albumin Human 100 ml @ 100 mls/hr ONCE IV 01/20/21 13:00 01/20/21 15:00 Albuterol Sulfate (Proventil MDI) 2 puff Q6HRT INH 01/02/21 19:00 04/02/21 18:59 01/20/21 07:25 Benztropine Mesylate (Cogentin) 1 mg EVERY 12 HOURS NG 01/09/21 09:15 02/01/21 09:14 01/20/21 09:05 Chlorhexidine Gluconate (Myranda-Hex 2%) 1 applic DAILY@2000 TOPIC 01/12/21 20:00 04/12/21 19:59 01/19/21 20:15 Dextrose (Dextrose 50%) 25 ml Q30M PRN IV Hypoglycemia 01/06/21 23:45 04/06/21 23:44 Dextrose (Dextrose 50%) 50 ml Q30M PRN IV Hypoglycemia 01/06/21 23:45 04/06/21 23:44 Divalproex Sodium (Depakote Sprinkles) 500 mg Q12HR GT 01/13/21 21:00 02/12/21 20:59 01/20/21 09:05 Fentanyl Citrate 250 ml @ 0 mls/hr Q24H IV 01/20/21 03:00 01/22/21 02:59 01/20/21 03:03 Furosemide (Lasix) 20 mg ONCE ONCE IV 01/20/21 16:00 01/20/21 16:01 UNV Insulin Aspart (NovoLOG) EVERY 6 HOURS SUBQ 01/09/21 12:00 04/04/21 16:29 01/20/21 12:33 Ipratropium [place] (Atrovent Inh) 1 puffs Q6HRT INH 01/02/21 19:00 02/01/21 18:59 01/20/21 07:25 Lansoprazole (Prevacid) 30 mg DAILY GT 01/16/21 09:00 02/15/21 08:59 01/20/21 09:05 Methylprednisolone Sodium Succinate (Solu-MEDROL) 10 mg DAILY IVP 01/20/21 09:00 04/16/21 20:59 01/20/21 09:06 Midazolam HCl 200 ml @ 0 mls/hr Q24H PRN IV Agitation (RASS -2) 01/17/21 00:00 01/24/21 00:00 01/19/21 22:51 Midodrine (Pro-Amatine) 10 mg Q8HR ORAL 01/20/21 14:00 04/20/21 13:59 UNV Ondansetron HCl (Zofran) 4 mg Q4H PRN IVP Nausea & Vomiting 01/02/21 08:15 02/01/21 08:14 Piperacillin Sod/ Tazobactam Sod 3.375 gm/Sodium Chloride 110 ml @ 27.5 mls/hr EVERY 8 HOURS IVPB 01/13/21 14:00 01/20/21 13:59 01/20/21 05:45 Potassium Chloride 100 ml @ 50 mls/hr ONCE ONCE IVPB 01/20/21 12:00 01/20/21 13:59 01/20/21 12:33 Potassium Chloride (K-Dur) 20 meq TWICE A DAY NG 01/20/21 12:45 04/20/21 12:44 UNV Warfarin Sodium (Coumadin per pharmacy) 1 ea DAILY PRN MISC Per rx protocol 01/02/21 08:30 02/01/21 08:29 Warfarin Sodium (Coumadin) 5 mg COUMADIN ORAL 01/20/21 17:00 01/20/21 18:00 Laboratory Tests 01/20/21 06:35: White Blood Count 9.2, Red Blood Count 3.91L, Hemoglobin 11.2L, Hematocrit 35.0L , Mean Corpuscular Volume 90, Mean Corpuscular Hemoglobin 28.6, Mean Corpuscular Hemoglobin Concent 31.9L, Red Cell Distribution Width 14.2, Platelet Count 202, Mean Platelet Volume 9.3, Neutrophils (%) (Auto) 69.8, Lymphocytes (%) (Auto) 24.6, Monocytes (%) (Auto) 4.6, Eosinophils (%) (Auto) 0.5, Basophils (%) (Auto) 0.6, Prothrombin Time 22.3H, Prothromb Time International Ratio 2.1H, Sodium Level 140, Potassium Level 3.1L, Chloride Level 108H, Carbon Dioxide Level 27, Anion Gap 6, Blood Urea Nitrogen 14, Creatinine 0.7, Estimat Glomerular Filtration Rate > 60, Glucose Level 147#H, Calcium Level 7.6L, Phosphorus Level 2.8, Magnesium Level 1.8, Total Bilirubin 0.3, Direct Bilirubin 0.1, Aspartate Amino Transf (AST/SGOT) 22, Alanine Aminotransferase (ALT/SGPT) 18, Alkaline Phosphatase 41L, Total Protein 4.7L, Albumin 1.5L Height (Feet): 5 Height (Inches): 5.00 Weight (Pounds): 233 General Appearance: no apparent distress EENT: other - Intubated on ventilator Cardiovascular: tachycardia Respiratory/Chest: decreased breath sounds Abdomen: distended Avi Frye MD Jan 20, 2021 12:38
--- NOTE | 2021-01-20 13:09 | Surgery Progress Note ---
Surgery Progress Note Subjective Symptoms: improved Objective Last 24 Hour Vital Signs Date Time Temp Pulse Resp B/P (MAP) Pulse Ox O2 Delivery O2 Flow Rate FiO2 01/20/21 11:42 112 25 70 01/20/21 10:00 22 108/64 Mechanical Ventilator 80 01/20/21 10:00 80 01/20/21 09:00 22 104/67 Mechanical Ventilator 22 01/20/21 09:00 22 104/67 Mechanical Ventilator 90 01/20/21 08:56 90 01/20/21 08:00 22 95/65 Mechanical Ventilator 100 01/20/21 08:00 22 95/65 Mechanical Ventilator 100 01/20/21 07:27 70 22 100 01/20/21 07:00 22 82/38 Mechanical Ventilator 100 01/20/21 07:00 22 82/38 Mechanical Ventilator 22 01/20/21 06:24 67 22 96/47 (63) 91 01/20/21 06:00 71 22 78/46 (57) 90 01/20/21 05:00 68 22 90/42 (58) 90 01/20/21 04:47 22 88/51 Mechanical Ventilator 100 01/20/21 04:45 68 22 84/40 (55) 91 01/20/21 04:42 69 23 87/38 (54) 91 01/20/21 04:39 69 22 80/42 (55) 91 01/20/21 04:35 68 22 70/39 (49) 91 01/20/21 04:34 68 22 69/40 (50) 92 01/20/21 04:30 68 22 68/39 (49) 92 01/20/21 04:22 67 21 82/48 (59) 92 01/20/21 04:15 61 22 75/41 (52) 91 01/20/21 04:06 59 22 83/45 (58) 92 01/20/21 04:00 50 01/20/21 04:00 60 22 79/44 (56) 92 01/20/21 04:00 60 22 79/44 (56) 92 01/20/21 04:00 61 01/20/21 04:00 Mechanical Ventilator 01/20/21 03:47 60 22 81/44 (56) 93 01/20/21 03:47 12 88/43 Mechanical Ventilator 100 01/20/21 03:45 60 22 78/45 (56) 93 01/20/21 03:30 59 22 86/49 (61) 93 01/20/21 03:17 59 22 82/50 (61) 93 01/20/21 03:15 59 22 83/50 (61) 93 01/20/21 03:15 59 22 83/50 (61) 93 01/20/21 03:03 18 91/53 Mechanical Ventilator 100 01/20/21 03:00 59 22 83/49 (60) 94 01/20/21 02:48 18 88/53 Mechanical Ventilator 100 01/20/21 02:48 14 91/46 Mechanical Ventilator 95 01/20/21 02:46 59 22 80/48 (59) 93 01/20/21 02:45 60 22 85/49 (61) 94 01/20/21 02:30 60 22 92/54 (67) 94 01/20/21 02:15 60 22 88/56 (67) 92 01/20/21 02:00 61 22 97/67 (77) 94 01/20/21 01:51 18 89/47 Mechanical Ventilator 100 01/20/21 01:45 64 22 102/65 (77) 94 01/20/21 01:30 68 22 102/65 (77) 95 01/20/21 01:15 72 20 97/63 (74) 88 01/20/21 01:14 100 01/20/21 01:00 65 22 95/59 (71) 87 01/20/21 00:51 18 101/73 Mechanical Ventilator 100 01/20/21 00:45 61 22 50 01/20/21 00:45 70 15 96/64 (75) 96 01/20/21 00:30 56 22 116/74 (88) 98 01/20/21 00:15 56 22 113/72 (86) 98 01/20/21 00:00 58 22 115/75 (88) 98 01/20/21 00:00 58 22 115/75 (88) 98 01/20/21 00:00 Mechanical Ventilator 01/20/21 00:00 64 01/19/21 23:51 18 99/56 Mechanical Ventilator 50 01/19/21 23:45 56 22 112/73 (86) 98 01/19/21 23:30 58 22 107/71 (83) 98 01/19/21 23:15 58 22 106/71 (83) 98 2021 23:00 59 22 110/68 (82) 98 2021 22:51 18 116/73 Mechanical Ventilator 50 2021 22:51 18 113/73 Mechanical Ventilator 60 2021 22:45 60 22 113/74 (87) 98 2021 22:30 60 22 113/69 (84) 98 21 22:15 60 22 107/67 (80) 98 21 22:00 18 113/66 Mechanical Ventilator 60 21 22:00 63 22 104/62 (76) 98 20/21 21:45 62 22 106/67 (80) 98 21 21:30 64 22 106/64 (78) 97 21 21:15 64 22 104/68 (80) 97 2021 21:00 65 22 107/66 (80) 97 21 21:00 18 101/56 Mechanical Ventilator 100 01/19/21 20:30 65 22 109/67 (81) 97 21 20:15 65 22 106/68 (81) 98 21 20:00 68 22 105/62 (76) 98 21 20:00 71 01/19/21 20:00 Mechanical Ventilator 01/19/21 20:00 18 106/57 Mechanical Ventilator 60 21 20:00 50 2021 19:46 65 22 50 20/21 19:45 64 22 109/66 (80) 97 21 19:30 66 22 110/69 (83) 97 2021 19:15 66 22 112/66 (81) 97 20/21 19:00 66 22 113/72 (86) 97 20/21 19:00 22 113/72 Mechanical Ventilator 100 2021 19:00 22 113/72 Mechanical Ventilator 50 21 19:00 66 22 113/72 (86) 97 20/21 18:45 66 22 112/69 (83) 96 20/21 18:30 67 22 111/67 (82) 97 21 18:30 67 22 111/67 (82) 97 2021 18:15 68 22 111/68 (82) 97 21 18:00 69 22 110/73 (85) 97 21 18:00 69 22 110/73 (85) 97 01/19/21 18:00 22 110/73 Mechanical Ventilator 50 21 18:00 22 110/73 Mechanical Ventilator 50 21 17:30 71 22 112/70 (84) 97 01/19/21 17:00 16 111/64 Mechanical Ventilator 50 01/19/21 17:00 16 111/64 Mechanical Ventilator 50 21 17:00 73 22 108/71 (83) 97 01/19/21 16:30 29 102/59 Mechanical Ventilator 50 01/19/21 16:30 97.5 78 22 98/63 (75) 96 01/19/21 16:15 24 102/69 Mechanical Ventilator 50 01/19/21 16:00 Mechanical Ventilator 01/19/21 16:00 77 01/19/21 16:00 88 22 99/60 (73) 96 01/19/21 16:00 50 01/19/21 15:45 82 22 50 01/19/21 15:30 98 22 67/55 (59) 95 01/19/21 15:00 67 22 111/71 (84) 94 01/19/21 15:00 16 126/76 Mechanical Ventilator 50 01/19/21 15:00 16 126/76 Mechanical Ventilator 50 01/19/21 14:30 66 22 105/55 (72) 94 01/19/21 14:00 72 19 92/55 (67) 93 01/19/21 14:00 20 103/68 Mechanical Ventilator 50 01/19/21 14:00 20 103/68 Mechanical Ventilator 50 01/19/21 13:30 93 22 97/64 (75) 95 I&O Intake and Output 01/19/21 01/20/21 19:00 07:00 Intake Total 2200.0 ml 811.5 ml Output Total 945 ml 1500 ml Balance 1255.0 ml -688.5 ml Free Water 280 ml IV Total 1650.0 ml 691.5 ml Tube Feeding 270 ml 120 ml Output Urine Total 945 ml 1500 ml Dressing: saturated Wound: clean Cardiovascular: RSR Respiratory: decreased breath sounds Abdomen: soft, non-tender, present bowel sounds, non-distended Extremities: edema, no tenderness, no cyanosis Laboratory Tests Test 01/20/21 06:35 White Blood Count 9.2 K/UL (4.8-10.8) Red Blood Count 3.91 M/UL (4.70-6.10) L Hemoglobin 11.2 G/DL (14.2-18.0) L Hematocrit 35.0 % (42.0-52.0) L Mean Corpuscular Volume 90 FL (80-99) Mean Corpuscular Hemoglobin 28.6 PG (27.0-31.0) Mean Corpuscular Hemoglobin Concent 31.9 G/DL (32.0-36.0) L Red Cell Distribution Width 14.2 % (11.6-14.8) Platelet Count 202 K/UL (150-450) Mean Platelet Volume 9.3 FL (6.5-10.1) Neutrophils (%) (Auto) 69.8 % (45.0-75.0) Lymphocytes (%) (Auto) 24.6 % (20.0-45.0) Monocytes (%) (Auto) 4.6 % (1.0-10.0) Eosinophils (%) (Auto) 0.5 % (0.0-3.0) Basophils (%) (Auto) 0.6 % (0.0-2.0) Prothrombin Time 22.3 SEC (9.30-11.50) H Prothromb Time International Ratio 2.1 (0.9-1.1) H Sodium Level 140 MMOL/L (136-145) Potassium Level 3.1 MMOL/L (3.5-5.1) L Chloride Level 108 MMOL/L (98-107) H Carbon Dioxide Level 27 MMOL/L (21-32) Anion Gap 6 mmol/L (5-15) Blood Urea Nitrogen 14 mg/dL (7-18) Creatinine 0.7 MG/DL (0.55-1.30) Estimat Glomerular Filtration Rate > 60 mL/min (>60) Glucose Level 147 MG/DL (74-106) #H Calcium Level 7.6 MG/DL (8.5-10.1) L Phosphorus Level 2.8 MG/DL (2.5-4.9) Magnesium Level 1.8 MG/DL (1.8-2.4) Total Bilirubin 0.3 MG/DL (0.2-1.0) Direct Bilirubin 0.1 MG/DL (0.0-0.3) Aspartate Amino Transf (AST/SGOT) 22 U/L (15-37) Alanine Aminotransferase (ALT/SGPT) 18 U/L (12-78) Alkaline Phosphatase 41 U/L (46-116) L Total Protein 4.7 G/DL (6.4-8.2) L Albumin 1.5 G/DL (3.4-5.0) L Plan Problems: (1) COPD (chronic obstructive pulmonary disease) (2) Essential hypertension (3) Schizophrenia (4) Obesity (5) Diabetes mellitus type 2 in obese (6) History of hydrocephalus (7) Anticoagulant long-term use (8) Bipolar 1 disorder (9) History of deep venous thrombosis or pulmonary embolus (10) Acute hypercapnic respiratory failure (11) Sepsis Assessment & Plan: 60-year-old male Covid positive respiratory insufficiency and severe decline being prone intubated on vent support labs noted septic ill- appearing has been developing wound around the face from ET tube.Receiv ed report from RT pt is being proned and was observed to have developed a blood blister under vent tape on L cheek and L earlobe. Skin assessed and pt was observed to have a blood blister that is 50% de-capped,50% intact. Intact Blood Blister noted to L earlobe. Skin Barrier applied to affected areas. Optifoam Thin foam placed between vent anchor and pt's skin. Optifoam thin placed to R cheek under Vent tape, on Bridge of nose and both earlobes. Given patient's critical status current care plan and findings nutritional optimization is strongly encouraged Covid nutrition plan initiated. All Covid precautions are being taken. Imaging reviewed. Will follow with care plan. Thank you [facility] participation care Tx.Plan: Maintain Optifoam Thin foam to R and L cheeks,Bridge of Nose and Both Ears . Change every 7 days and prn.( May request Optifoam Thin from [facility] dept). APM/PEPE Mattress overlay DAILY ESTIMATED NEEDS: Needs based on Critical care, pulmonary, obese 73.7kg abw 22-28 kcals/kg 0565-2525 total kcals 1.2-2 g protein/kg 88-147 g total protein 25-30 mL/kg 0116-2785 total fluid mLs NUTRITION DIAGNOSIS: Altered nutrition related lab values r/t steroidal meds, clinical status as evidenced by febrile on adm (102.5), elevated BG (270 287) on solumedrol, elevated lipid panel (Triglycerides 333, Chol 370, LDL 150). CURRENT TF:Vital @30ml/hr, now Nepro @30 ENTERAL NUTRITION RECOMMENDATIONS: NEPRO @30ml/hr while supine to provide x8 hrs feeds: 360ml, 648 kcal, 29g pro, 262ml free H2O - Feed at rate best tolerated, currently not meeting est needs d/t proning and aspiration risk w/ supine feeds limited to 8hrs/day. - W/ reduced aspiration risk rec feedings to total Volume of 900ml/day of Nepro as medically able. - Monitor tolerance, position/HOB >30 degrees, hemodynamic stability and ability to increase to meet est kcal and pro needs. - With increase pressor support, rec trophic feeds of 10ml/hr for gut integrity. - When tolerating TF at goal add Prosource BID to better meet est pro needs. ADDITIONAL RECOMMENDATIONS: 1) Now intubated, TF recs above when off proning (8hrs feeds) 2) Obtain calibrated bedscale wts 3) HgA1C/ elevated BG Need for niss while on D5 4) Lytes daily; replete as needed 5) Monitor triglycerides, TF tolerance, hemodynamic stability. (12) Respiratory failure with hypoxia (13) Pneumonia due to COVID-19 virus (14) Hyperkalemia (15) DMII (diabetes mellitus, type 2) Ki Strong Jan 20, 2021 13:09
[2021-01-20] MEDS: Midodrine 10mg tab ORAL SCH ×2 (14:20→21:10)
--- NOTE | 2021-01-20 14:53 | Internal Med Progress Note ---
Subjective Date of Service: Jan 20, 2021 Physician Name Vickey Brown Attending Physician Geovanny Bradley MD Current Medications Medications (Trade) Dose Ordered Sig/Johnny Route PRN Reason Start Time Stop Time Status Last Admin Dose Admin Acetaminophen (Tylenol) 650 mg Q6H PRN NG Temp >100.5 01/09/21 09:15 02/08/21 09:14 01/14/21 21:28 Acetaminophen (Tylenol) 650 mg Q6H PRN NG Mild Pain (Pain Scale 1-3) 01/09/21 09:15 02/08/21 09:14 Albumin Human 100 ml @ 100 mls/hr ONCE IV 01/20/21 13:00 01/20/21 15:00 01/20/21 12:49 Albuterol Sulfate (Proventil MDI) 2 puff Q6HRT INH 01/02/21 19:00 04/02/21 18:59 01/20/21 07:25 Benztropine Mesylate (Cogentin) 1 mg EVERY 12 HOURS NG 01/09/21 09:15 02/01/21 09:14 01/20/21 09:05 Chlorhexidine Gluconate (Myranda-Hex 2%) 1 applic DAILY@2000 TOPIC 01/12/21 20:00 04/12/21 19:59 01/19/21 20:15 Dextrose (Dextrose 50%) 25 ml Q30M PRN IV Hypoglycemia 01/06/21 23:45 04/06/21 23:44 Dextrose (Dextrose 50%) 50 ml Q30M PRN IV Hypoglycemia 01/06/21 23:45 04/06/21 23:44 Divalproex Sodium (Depakote Sprinkles) 500 mg Q12HR GT 01/13/21 21:00 02/12/21 20:59 01/20/21 09:05 Fentanyl Citrate 250 ml @ 0 mls/hr Q24H IV 01/20/21 03:00 01/22/21 02:59 01/20/21 03:03 Furosemide (Lasix) 20 mg ONCE IV 01/20/21 16:00 01/20/21 18:00 Insulin Aspart (NovoLOG) EVERY 6 HOURS SUBQ 01/09/21 12:00 04/04/21 16:29 01/20/21 12:33 Ipratropium [place] (Atrovent Inh) 1 puffs Q6HRT INH 01/02/21 19:00 02/01/21 18:59 01/20/21 07:25 Lansoprazole (Prevacid) 30 mg DAILY GT 01/16/21 09:00 02/15/21 08:59 01/20/21 09:05 Methylprednisolone Sodium Succinate (Solu-MEDROL) 10 mg DAILY IVP 01/20/21 09:00 04/16/21 20:59 01/20/21 09:06 Midazolam HCl 200 ml @ 0 mls/hr Q24H PRN IV Agitation (RASS -2) 01/17/21 00:00 01/24/21 00:00 01/19/21 22:51 Midodrine (Pro-Amatine) 10 mg Q8HR ORAL 01/20/21 14:00 04/20/21 13:59 01/20/21 14:20 Ondansetron HCl (Zofran) 4 mg Q4H PRN IVP Nausea & Vomiting 01/02/21 08:15 02/01/21 08:14 Potassium Chloride (K-Dur) 20 meq TWICE A DAY NG 01/20/21 13:00 04/20/21 12:59 01/20/21 12:52 Quetiapine Fumarate (SEROqueL) 100 mg Q12HR ORAL 01/20/21 14:45 03/06/21 14:44 UNV Warfarin Sodium (Coumadin per pharmacy) 1 ea DAILY PRN MISC Per rx protocol 01/02/21 08:30 02/01/21 08:29 Warfarin Sodium (Coumadin) 5 mg COUMADIN ORAL 01/20/21 17:00 01/20/21 18:00 Allergies: Coded Allergies: No Known Allergies (Unverified , 01/02/21) ROS Limited/Unobtainable: Yes Subjective 60 YO M admitted with shortness of breath. Now respiratory failure. Cover for Int Med-DR Bradley. ICU. Intubated and sedated Objective Last Vital Signs Date Time Temp Pulse Resp B/P (MAP) Pulse Ox O2 Delivery O2 Flow Rate FiO2 01/20/21 11:42 112 25 70 01/20/21 10:00 108/64 Mechanical Ventilator 01/20/21 06:24 91 01/19/21 16:30 97.5 01/14/21 03:33 15.0 Laboratory Tests Test 01/20/21 06:35 White Blood Count 9.2 K/UL (4.8-10.8) Red Blood Count 3.91 M/UL (4.70-6.10) L Hemoglobin 11.2 G/DL (14.2-18.0) L Hematocrit 35.0 % (42.0-52.0) L Mean Corpuscular Volume 90 FL (80-99) Mean Corpuscular Hemoglobin 28.6 PG (27.0-31.0) Mean Corpuscular Hemoglobin Concent 31.9 G/DL (32.0-36.0) L Red Cell Distribution Width 14.2 % (11.6-14.8) Platelet Count 202 K/UL (150-450) Mean Platelet Volume 9.3 FL (6.5-10.1) Neutrophils (%) (Auto) 69.8 % (45.0-75.0) Lymphocytes (%) (Auto) 24.6 % (20.0-45.0) Monocytes (%) (Auto) 4.6 % (1.0-10.0) Eosinophils (%) (Auto) 0.5 % (0.0-3.0) Basophils (%) (Auto) 0.6 % (0.0-2.0) Prothrombin Time 22.3 SEC (9.30-11.50) H Prothromb Time International Ratio 2.1 (0.9-1.1) H Sodium Level 140 MMOL/L (136-145) Potassium Level 3.1 MMOL/L (3.5-5.1) L Chloride Level 108 MMOL/L (98-107) H Carbon Dioxide Level 27 MMOL/L (21-32) Anion Gap 6 mmol/L (5-15) Blood Urea Nitrogen 14 mg/dL (7-18) Creatinine 0.7 MG/DL (0.55-1.30) Estimat Glomerular Filtration Rate > 60 mL/min (>60) Glucose Level 147 MG/DL (74-106) #H Calcium Level 7.6 MG/DL (8.5-10.1) L Phosphorus Level 2.8 MG/DL (2.5-4.9) Magnesium Level 1.8 MG/DL (1.8-2.4) Total Bilirubin 0.3 MG/DL (0.2-1.0) Direct Bilirubin 0.1 MG/DL (0.0-0.3) Aspartate Amino Transf (AST/SGOT) 22 U/L (15-37) Alanine Aminotransferase (ALT/SGPT) 18 U/L (12-78) Alkaline Phosphatase 41 U/L (46-116) L Total Protein 4.7 G/DL (6.4-8.2) L Albumin 1.5 G/DL (3.4-5.0) L Intake and Output 01/19/21 01/20/21 19:00 07:00 Intake Total 2200.0 ml 811.5 ml Output Total 945 ml 1500 ml Balance 1255.0 ml -688.5 ml Free Water 280 ml IV Total 1650.0 ml 691.5 ml Tube Feeding 270 ml 120 ml Output Urine Total 945 ml 1500 ml Objective Objective General: awake, responsive , confused. HEENT: NCAT, sclera anicteric, PERRL, EOMI. Neck: Supple, no significant jugular venous distention, Lungs: mech vent; decreased air at the bases, occasional crackles, no Wheeze. Heart: Regular rate and rhythm, normal S1/S2, no murmurs Abdomen: soft, nontender, nondistended. Normoactive bowel sound, obesity. / Rectal: Refused and deferred. Extremities: Left LE: No Cyanosis , clubbing or edema. Right LE AKA. Neuro: A&O x 2, Able to move all extremities Skin: warm, no rashes or lesions. Assessment/Plan Assessment/Plan Assessment/Plan Assessment/Plan (1) Pneumonia due to COVID-19 virus ICD Codes: U07.1 - COVID-19; J12.82 - Pneumonia due to coronavirus disease 2019 SNOMED: 565366898021368311 (2) Acute hypercapnic respiratory failure ICD Codes: J96.02 - Acute respiratory failure with hypercapnia SNOMED: 414844534 (3) Respiratory failure with hypoxia ICD Codes: J96.91 - Respiratory failure, unspecified with hypoxia SNOMED: 80081490153969673 Qualifiers: Qualified Codes: J96.01 - Acute respiratory failure with hypoxia (4) COPD (chronic obstructive pulmonary disease) ICD Codes: J44.9 - Chronic obstructive pulmonary disease, unspecified SNOMED: 63612115 (5) History of deep venous thrombosis or pulmonary embolus SNOMED: 623908483 (6) Obesity ICD Codes: E66.9 - Obesity, unspecified SNOMED: 289575128, 443691773 (7) Essential hypertension ICD Codes: I10 - Essential (primary) hypertension SNOMED: 38188946 (8) Diabetes mellitus type 2 in obese ICD Codes: E11.69 - Type 2 diabetes mellitus with other specified complication; E66.9 - Obesity, unspecified SNOMED: 82204335 (9) History of hydrocephalus ICD Codes: Z86.69 - Personal history of other diseases of the nervous system and sense organs SNOMED: 119071567 (10) Schizophrenia ICD Codes: F20.9 - Schizophrenia, unspecified SNOMED: 41109406 (11) Bipolar 1 disorder ICD Codes: F31.9 - Bipolar disorder, unspecified SNOMED: 030013302 (12) Anticoagulant long-term use ICD Codes: Z79.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 Sepsis=gram pos cocci Assessment/Plan: Optimize pulmonary hygiene/mobilize as tolerated Non Rebreather mask>BIPAP>intubated On Remdesivir IV Solu-Medrol 40 mg IV twice a day. Abx =zosyn and S/P vanco F/U Cx's Monitor volumes and renal function DVT Px: Coumadin DC IV fluid Start diet Monitor blood glucose level closely. On levophed, fentanyl and propofol drips Pulmonary=Dr Luis ID=Dr Gomez Psych consult=Dr Gallegos Start seroquel at 1/2 previous dose Vickey Brown MD Jan 20, 2021 14:53
[2021-01-20] MEDS: Versed 100mg/NS 200ml 200 ML IV PRN (15:15)
[2021-01-20] MEDS ORDERED: Warfarin Sodium 5mg ORAL SCH (17:00)
--- NOTE | 2021-01-20 19:55 | Pulmonology Progress Note ---
Subjective ROS Limited/Unobtainable: Yes Allergies: Coded Allergies: No Known Allergies (Unverified , 01/02/21) Objective Last 24 Hour Vital Signs Date Time Temp Pulse Resp B/P (MAP) Pulse Ox O2 Delivery O2 Flow Rate FiO2 01/20/21 19:38 80 22 50 01/20/21 19:30 79 22 85/54 (64) 98 01/20/21 19:00 84 22 98/63 (75) 97 01/20/21 18:30 66 22 116/75 (89) 95 01/20/21 18:00 64 22 118/79 (92) 95 01/20/21 17:30 77 22 107/68 (81) 94 01/20/21 17:00 22 127/84 Mechanical Ventilator 50 01/20/21 17:00 22 127/84 Mechanical Ventilator 50 01/20/21 17:00 71 22 127/84 (98) 95 01/20/21 16:30 70 22 122/77 (92) 93 01/20/21 16:00 50 01/20/21 16:00 Mechanical Ventilator 01/20/21 16:00 98.5 76 20 107/69 (82) 93 01/20/21 16:00 18 122/77 Mechanical Ventilator 50 01/20/21 16:00 18 122/77 Mechanical Ventilator 50 01/20/21 15:59 76 01/20/21 15:30 81 30 113/73 (86) 94 01/20/21 15:17 22 143/95 Mechanical Ventilator 50 01/20/21 15:15 22 106/68 50 01/20/21 15:15 89 32 135/89 (104) 94 01/20/21 15:00 88 22 143/95 (111) 95 01/20/21 15:00 18 113/73 Mechanical Ventilator 50 01/20/21 15:00 79 22 50 01/20/21 14:45 89 25 96/68 (77) 98 01/20/21 14:35 50 01/20/21 14:30 81 22 93/60 (71) 92 01/20/21 14:15 82 22 5/68 (47) 90 01/20/21 14:00 88 23 96/58 (71) 91 01/20/21 14:00 22 96/58 Mechanical Ventilator 60 01/20/21 13:45 96 21 101/60 (74) 92 01/20/21 13:30 99 22 106/75 (85) 93 01/20/21 13:15 106 29 121/74 (90) 95 01/20/21 13:00 24 106/75 Mechanical Ventilator 60 01/20/21 13:00 60 01/20/21 13:00 108 39 122/78 (93) 99 01/20/21 12:45 96 33 120/77 (91) 96 01/20/21 12:30 97 44 119/79 (92) 97 01/20/21 12:15 102 33 105/76 (86) 98 01/20/21 12:00 98 22 106/74 (85) 97 01/20/21 12:00 37 119/79 Mechanical Ventilator 70 01/20/21 12:00 70 01/20/21 12:00 Mechanical Ventilator 01/20/21 11:45 99.0 109 43 109/70 (83) 99 01/20/21 11:42 112 25 70 01/20/21 11:30 98 26 107/71 (83) 95 01/20/21 11:23 103 01/20/21 11:15 89 22 109/70 (83) 94 01/20/21 11:00 89 22 111/72 (85) 94 01/20/21 11:00 27 111/72 Mechanical Ventilator 80 01/20/21 10:45 104 45 118/81 (93) 90 01/20/21 10:30 104 45 121/88 (99) 90 01/20/21 10:15 101 22 106/71 (83) 95 01/20/21 10:00 101 22 108/64 (79) 95 01/20/21 10:00 22 108/64 Mechanical Ventilator 80 01/20/21 10:00 80 01/20/21 10:00 80 01/20/21 09:45 83 22 112/70 (84) 95 01/20/21 09:30 83 22 110/71 (84) 95 01/20/21 09:15 96 24 106/70 (82) 95 01/20/21 09:00 22 104/67 Mechanical Ventilator 22 01/20/21 09:00 22 104/67 Mechanical Ventilator 90 01/20/21 09:00 96 24 104/67 (79) 95 01/20/21 08:56 90 01/20/21 08:55 90 01/20/21 08:45 73 13 102/60 (74) 98 01/20/21 08:30 73 13 101/69 (80) 98 01/20/21 08:15 98.9 77 22 101/68 (79) 93 01/20/21 08:11 78 01/20/21 08:00 100 01/20/21 08:00 Mechanical Ventilator 01/20/21 08:00 22 95/65 Mechanical Ventilator 100 01/20/21 08:00 22 95/65 Mechanical Ventilator 100 01/20/21 08:00 98.9 77 22 95/65 (75) 93 01/20/21 07:45 77 22 99/69 (79) 93 01/20/21 07:30 77 21 92/62 (72) 81 01/20/21 07:27 70 22 100 01/20/21 07:23 70 22 92/44 (60) 88 01/20/21 07:17 70 22 83/39 (54) 87 01/20/21 07:15 68 22 82/38 (53) 87 01/20/21 07:00 22 82/38 Mechanical Ventilator 100 01/20/21 07:00 22 82/38 Mechanical Ventilator 22 01/20/21 07:00 64 22 88 01/20/21 06:24 67 22 96/47 (63) 91 01/20/21 06:00 71 22 78/46 (57) 90 01/20/21 05:00 68 22 90/42 (58) 90 01/20/21 04:47 22 88/51 Mechanical Ventilator 100 01/20/21 04:45 68 22 84/40 (55) 91 01/20/21 04:42 69 23 87/38 (54) 91 01/20/21 04:39 69 22 80/42 (55) 91 01/20/21 04:35 68 22 70/39 (49) 91 01/20/21 04:34 68 22 69/40 (50) 92 01/20/21 04:30 68 22 68/39 (49) 92 01/20/21 04:22 67 21 82/48 (59) 92 01/20/21 04:15 61 22 75/41 (52) 91 01/20/21 04:06 59 22 83/45 (58) 92 01/20/21 04:00 50 01/20/21 04:00 60 22 79/44 (56) 92 01/20/21 04:00 60 22 79/44 (56) 92 01/20/21 04:00 61 01/20/21 04:00 Mechanical Ventilator 01/20/21 03:47 60 22 81/44 (56) 93 01/20/21 03:47 12 88/43 Mechanical Ventilator 100 01/20/21 03:45 60 22 78/45 (56) 93 01/20/21 03:30 59 22 86/49 (61) 93 01/20/21 03:17 59 22 82/50 (61) 93 01/20/21 03:15 59 22 83/50 (61) 93 01/20/21 03:15 59 22 83/50 (61) 93 01/20/21 03:03 18 91/53 Mechanical Ventilator 100 01/20/21 03:00 59 22 83/49 (60) 94 01/20/21 02:48 18 88/53 Mechanical Ventilator 100 01/20/21 02:48 14 91/46 Mechanical Ventilator 95 01/20/21 02:46 59 22 80/48 (59) 93 01/20/21 02:45 60 22 85/49 (61) 94 01/20/21 02:30 60 22 92/54 (67) 94 01/20/21 02:15 60 22 88/56 (67) 92 01/20/21 02:00 61 22 97/67 (77) 94 01/20/21 01:51 18 89/47 Mechanical Ventilator 100 01/20/21 01:45 64 22 102/65 (77) 94 01/20/21 01:30 68 22 102/65 (77) 95 01/20/21 01:15 72 20 97/63 (74) 88 01/20/21 01:14 100 01/20/21 01:00 65 22 95/59 (71) 87 01/20/21 00:51 18 101/73 Mechanical Ventilator 100 01/20/21 00:45 61 22 50 01/20/21 00:45 70 15 96/64 (75) 96 01/20/21 00:30 56 22 116/74 (88) 98 01/20/21 00:15 56 22 113/72 (86) 98 01/20/21 00:00 58 22 115/75 (88) 98 01/20/21 00:00 58 22 115/75 (88) 98 01/20/21 00:00 Mechanical Ventilator 01/20/21 00:00 64 01/19/21 23:51 18 99/56 Mechanical Ventilator 50 01/19/21 23:45 56 22 112/73 (86) 98 01/19/21 23:30 58 22 107/71 (83) 98 01/19/21 23:15 58 22 106/71 (83) 98 01/19/21 23:00 59 22 110/68 (82) 98 01/19/21 22:51 18 116/73 Mechanical Ventilator 50 01/19/21 22:51 18 113/73 Mechanical Ventilator 60 01/19/21 22:45 60 22 113/74 (87) 98 01/19/21 22:30 60 22 113/69 (84) 98 01/19/21 22:15 60 22 107/67 (80) 98 01/19/21 22:00 18 113/66 Mechanical Ventilator 60 01/19/21 22:00 63 22 104/62 (76) 98 01/19/21 21:45 62 22 106/67 (80) 98 01/19/21 21:30 64 22 106/64 (78) 97 01/19/21 21:15 64 22 104/68 (80) 97 01/19/21 21:00 65 22 107/66 (80) 97 01/19/21 21:00 18 101/56 Mechanical Ventilator 100 01/19/21 20:30 65 22 109/67 (81) 97 01/19/21 20:15 65 22 106/68 (81) 98 01/19/21 20:00 68 22 105/62 (76) 98 01/19/21 20:00 71 01/19/21 20:00 Mechanical Ventilator 01/19/21 20:00 18 106/57 Mechanical Ventilator 60 01/19/21 20:00 50 Intake and Output 01/19/21 01/20/21 19:00 07:00 Intake Total 2200.0 ml 871.5 ml Output Total 945 ml 1500 ml Balance 1255.0 ml -628.5 ml Free Water 280 ml IV Total 1650.0 ml 691.5 ml Tube Feeding 270 ml 180 ml Output Urine Total 945 ml 1500 ml Laboratory Tests 01/20/21 06:35: White Blood Count 9.2, Red Blood Count 3.91L, Hemoglobin 11.2L, Hematocrit 35.0L , Mean Corpuscular Volume 90, Mean Corpuscular Hemoglobin 28.6, Mean Corpuscular Hemoglobin Concent 31.9L, Red Cell Distribution Width 14.2, Platelet Count 202, Mean Platelet Volume 9.3, Neutrophils (%) (Auto) 69.8, Lymphocytes (%) (Auto) 24.6, Monocytes (%) (Auto) 4.6, Eosinophils (%) (Auto) 0.5, Basophils (%) (Auto) 0.6, Prothrombin Time 22.3H, Prothromb Time International Ratio 2.1H, Sodium Level 140, Potassium Level 3.1L, Chloride Level 108H, Carbon Dioxide Level 27, Anion Gap 6, Blood Urea Nitrogen 14, Creatinine 0.7, Estimat Glomerular Filtrat ion Rate > 60, Glucose Level 147#H, Calcium Level 7.6L, Phosphorus Level 2.8, Magnesium Level 1.8, Total Bilirubin 0.3, Direct Bilirubin 0.1, Aspartate Amino Transf (AST/SGOT) 22, Alanine Aminotransferase (ALT/SGPT) 18, Alkaline Phosphatase 41L, Total Protein 4.7L, Albumin 1.5L Current Medications Medications (Trade) Dose Ordered Sig/Johnny Route PRN Reason Start Time Stop Time Status Last Admin Dose Admin Acetaminophen (Tylenol) 650 mg Q6H PRN NG Temp >100.5 01/09/21 09:15 02/08/21 09:14 01/14/21 21:28 Acetaminophen (Tylenol) 650 mg Q6H PRN NG Mild Pain (Pain Scale 1-3) 01/09/21 09:15 02/08/21 09:14 Albuterol Sulfate (Proventil MDI) 2 puff Q6HRT INH 01/02/21 19:00 04/02/21 18:59 01/20/21 19:38 Benztropine Mesylate (Cogentin) 1 mg EVERY 12 HOURS NG 01/09/21 09:15 02/01/21 09:14 01/20/21 09:05 Chlorhexidine Gluconate (Myranda-Hex 2%) 1 applic DAILY@2000 TOPIC 01/12/21 20:00 04/12/21 19:59 01/19/21 20:15 Dextrose (Dextrose 50%) 25 ml Q30M PRN IV Hypoglycemia 01/06/21 23:45 04/06/21 23:44 Dextrose (Dextrose 50%) 50 ml Q30M PRN IV Hypoglycemia 01/06/21 23:45 04/06/21 23:44 Divalproex Sodium (Depakote Sprinkles) 500 mg Q12HR GT 01/13/21 21:00 02/12/21 20:59 01/20/21 09:05 Fentanyl Citrate 250 ml @ 0 mls/hr Q24H IV 01/20/21 03:00 01/22/21 02:59 01/20/21 15:17 Insulin Aspart (NovoLOG) EVERY 6 HOURS SUBQ 01/09/21 12:00 04/04/21 16:29 01/20/21 18:33 Ipratropium [place] (Atrovent Inh) 1 puffs Q6HRT INH 01/02/21 19:00 02/01/21 18:59 01/20/21 19:38 Lansoprazole (Prevacid) 30 mg DAILY GT 01/16/21 09:00 02/15/21 08:59 01/20/21 09:05 Methylprednisolone [place] Succinate (Solu-MEDROL) 10 mg DAILY IVP 01/20/21 09:00 04/16/21 20:59 01/20/21 09:06 Midazolam HCl 200 ml @ 0 mls/hr Q24H PRN IV Agitation (RASS -2) 01/17/21 00:00 01/24/21 00:00 01/20/21 15:15 Midodrine (Pro-Amatine) 10 mg Q8HR ORAL 01/20/21 14:00 04/20/21 13:59 01/20/21 14:20 Ondansetron HCl (Zofran) 4 mg Q4H PRN IVP Nausea & Vomiting 01/02/21 08:15 02/01/21 08:14 Potassium Chloride (K-Dur) 20 meq TWICE A DAY NG 01/20/21 13:00 04/20/21 12:59 01/20/21 18:34 Quetiapine Fumarate (SEROqueL) 100 mg Q12HR ORAL 01/20/21 15:00 03/06/21 14:59 01/20/21 16:35 Warfarin Sodium (Coumadin per pharmacy) 1 ea DAILY PRN MISC Per rx protocol 01/02/21 08:30 02/01/21 08:29 Assessment/Plan Assessment/Plan Pulmonary CCM Progress Note HPI Patient is a 60 man with prior h/o COPD, CPS/bipolar DO, 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 ID following and started on CTx/Azithro + REM + SM, CXR with bilateral infiltrates,ETT appropriate. Proning as tolerated Sedated in ICU on Ventilator, has OGT/central line PEEP at 7,maintaining O2 sats, FIO2 - 50%, PEEP increased,worsening infiltrates on CXR,sp Diuresis Pressure areas around ETT site - surgery/wound nurse following Allergies: Coded Allergies: No Known Allergies (Unverified , 01/02/21) PMH: COPD, CPS/bipolar DO, prior DVT/PE on AC, NHR, DM2, HTN and hydrocephalus Physical Exam Deferred Covid19 Vital Signs noted Laboratory Tests noted Imaging noted Height (Feet): 5 Height (Inches): 5.00 Weight (Pounds): 233 Medications Medications noted Assessment/Plan Problem List: (1) Pneumonia due to COVID-19 virus ICD Codes: U07.1 - COVID-19; J12.82 - Pneumonia due to coronavirus disease 2019 SNOMED: 768623888481525964 (2) Acute hypercapnic respiratory failure ICD Codes: J96.02 - Acute respiratory failure with hypercapnia SNOMED: 919455365 (3) Respiratory failure with hypoxia ICD Codes: J96.91 - Respiratory failure, unspecified with hypoxia SNOMED: 29858239596846943 Qualifiers: Qualified Codes: J96.01 - Acute respiratory failure with hypoxia (4) COPD (chronic obstructive pulmonary disease) ICD Codes: J44.9 - Chronic obstructive pulmonary disease, unspecified SNOMED: 37866614 (5) History of deep venous thrombosis or pulmonary embolus SNOMED: 060613578 (6) Obesity ICD Codes: E66.9 - Obesity, unspecified SNOMED: 357090898, 033699630 (7) Essential hypertension ICD Codes: I10 - Essential (primary) hypertension SNOMED: 50475827 (8) Diabetes mellitus type 2 in obese ICD Codes: E11.69 - Type 2 diabetes mellitus with other specified complication; E66.9 - Obesity, unspecified SNOMED: 15622540 (9) History of hydrocephalus ICD Codes: Z86.69 - Personal history of other diseases of the nervous system and sense organs SNOMED: 374945825 (10) Schizophrenia ICD Codes: F20.9 - Schizophrenia, unspecified SNOMED: 56122891 (11) Bipolar 1 disorder ICD Codes: F31.9 - Bipolar disorder, unspecified SNOMED: 450799348 (12) Anticoagulant long-term use ICD Codes: 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
[2021-01-20] MEDS: Dyna-Hex 2% Top Sol 2oz TOPIC SCH (21:09)
[2021-01-21] VITALS (87 sets, daily range): BP systolic 80–141; BP diastolic 52–88
[2021-01-21] MEDS: Ipratropium Bromide Inhaler INH SCH ×5 (00:33→19:18)
[2021-01-21] MEDS: Albuterol 90mcg Inhaler 8gm INH SCH ×5 (00:33→19:18)
[2021-01-21] MEDS: NovoLOG Insulin Flexpen SUBQ SCH ×3 (06:14→18:29)
[2021-01-21] MEDS: Midodrine 10mg tab ORAL SCH ×3 (06:15→20:05)
[2021-01-21 06:28] LABS: BASOPHILS % (AUTO) 0.6 % (0.0-2.0); EOSINOPHILS % (AUTO) 0.5 % (0.0-3.0); HEMATOCRIT 38.5 % (42.0-52.0); HEMOGLOBIN 12.4 G/DL (14.2-18.0); LYMPHOCYTES % (AUTO) 26.7 % (20.0-45.0); MEAN CORPUSCULAR VOLUME 90 FL (80-99); MONOCYTES % (AUTO) 4.2 % (1.0-10.0); NEUTROPHILS % (AUTO) 67.9 % (45.0-75.0); PLATELET COUNT 225 K/UL (150-450); RED BLOOD COUNT 4.28 M/UL (4.70-6.10); RED CELL DISTRIBUTION WIDTH 14.7 % (11.6-14.8); WHITE BLOOD COUNT 8.1 K/UL (4.8-10.8)
[2021-01-21 07:24] LABS: ALANINE AMINOTRANSFERASE 21 U/L (12-78); ALBUMIN 2.1 G/DL (3.4-5.0); ALBUMIN/GLOBULIN RATIO 0.5 (1.0-2.7); ALKALINE PHOSPHATASE 57 U/L (46-116); ANION GAP 7 mmol/L (5-15); ASPARTATE AMINO TRANSFERASE 19 U/L (15-37); BILIRUBIN,TOTAL 0.3 MG/DL (0.2-1.0); BLOOD UREA NITROGEN 11 mg/dL (7-18); CALCIUM 8.7 MG/DL (8.5-10.1); CARBON DIOXIDE 29 MMOL/L (21-32); CHLORIDE 108 MMOL/L (98-107); CREATININE 0.7 MG/DL (0.55-1.30); GAMMA GLUTAMYL TRANSPEPTIDASE 101 U/L (5-85); PHOSPHORUS 2.4 MG/DL (2.5-4.9); SODIUM 144 MMOL/L (136-145)
--- NOTE | 2021-01-21 08:16 | Nephrology Progress Note ---
Assessment/Plan Problem List: (1) Hyperkalemia (2) Pneumonia due to COVID-19 virus (3) Respiratory failure with hypoxia (4) Obesity (5) Schizophrenia (6) DMII (diabetes mellitus, type 2) Assessment Hyperkalemia Stable renal parameters Hyperglycemia Covid pneumonia due to COVID-19 virus Acute respiratory failure with hypoxia requiring mechanical ventilation History of COPD History of DVT, pulmonary emboli Obese Hypertension History of diabetes Psych condition, schizophrenia, bipolar disease Plan January 21: Full code. Intubated on ventilator. FiO2 40%. Labs reviewed. Renal parameters stable. Continue per consultants. January 20: Status unchanged. Full code. On ventilator. Chest x-ray reviewed. IV fluid discontinued. Potassium supplement given. 1 dose of Lasix given. Albumin bolus given. Midodrine started. Will monitor renal parameters and electrolytes. Discussed with JOHAN Mohamud. January 19: Labs reviewed. Renal parameters stable. Remains full code intubated on ventilator. FiO2 50%. Continue per consultants. January 18: Full code. Intubated. On ventilator. FiO2 down to 35%. No labs drawn today. Continue to monitor renal parameters and electrolytes. January 17: Full code. Intubated on ventilator. FiO2 remains at 60%. Labs reviewed. Renal parameters stable. January 16: Full code. Intubated. Labs reviewed. Renal parameters stable. FiO2 60%. Continue per consultants. January 15: Patient remains intubated and full code. Labs reviewed. Stable renal parameters. January 14: Patient full code. Intubated on ventilator. On prone position until 5 PM. Labs reviewed. Stable from renal standpoint of view. January 13: Labs reviewed. Renal parameters stable. Continue per consultants. Patient remain full code and intubated on ventilator. January 12: Labs reviewed. Renal parameters stable. Patient remains full code. Remains intubated on ventilator and on prone position. Continue per consultants. January 11: Labs reviewed. Renal parameters stable. Continue per consultants. January 10: Labs reviewed. Renal parameters stable. Continue per consultants. Change IV to half-normal saline Kayexalate via NG tube for high potassium Monitor electrolytes and renal parameters Per orders, per consultants Subjective ROS Limited/Unobtainable: Yes Objective Objective Last 24 Hour Vital Signs Date Time Temp Pulse Resp B/P (MAP) Pulse Ox O2 Delivery O2 Flow Rate FiO2 01/21/21 07:00 20 118/50 Mechanical Ventilator 40 01/21/21 07:00 20 116/50 Mechanical Ventilator 40 01/21/21 07:00 97 25 122/73 (89) 92 01/21/21 06:00 20 135/68 Mechanical Ventilator 40 01/21/21 06:00 20 105/63 Mechanical Ventilator 40 01/21/21 06:00 102 25 117/70 (86) 92 01/21/21 05:45 104 25 112/68 (83) 90 01/21/21 05:30 105 28 124/75 (91) 93 01/21/21 05:15 102 21 114/69 (84) 91 01/21/21 05:00 20 122/61 Mechanical Ventilator 40 01/21/21 05:00 20 122/61 Mechanical Ventilator 40 01/21/21 05:00 90 23 105/62 (76) 92 01/21/21 04:45 92 25 103/61 (75) 92 01/21/21 04:30 85 23 141/59 (86) 92 01/21/21 04:15 86 22 102/63 (76) 92 01/21/21 04:00 85 01/21/21 04:00 20 103/62 Mechanical Ventilator 40 01/21/21 04:00 20 103/62 Mechanical Ventilator 40 01/21/21 04:00 Mechanical Ventilator 01/21/21 04:00 99.2 88 22 103/60 (74) 93 01/21/21 04:00 50 01/21/21 03:45 89 25 107/63 (78) 92 01/21/21 03:30 86 22 110/69 (83) 92 01/21/21 03:15 85 20 107/65 (79) 100 01/21/21 03:13 90 26 50 01/21/21 03:00 83 22 105/61 (76) 94 01/21/21 03:00 20 109/72 Mechanical Ventilator 40 01/21/21 03:00 20 109/72 Mechanical Ventilator 40 01/21/21 02:45 87 23 105/67 (80) 94 01/21/21 02:30 85 22 102/59 (73) 94 01/21/21 02:15 88 22 100/63 (75) 93 01/21/21 02:00 20 117/65 Mechanical Ventilator 40 01/21/21 02:00 20 117/65 Mechanical Ventilator 40 01/21/21 02:00 96 24 102/54 (70) 94 01/21/21 01:45 98 27 103/62 (76) 93 01/21/21 01:30 92 26 107/67 (80) 93 01/21/21 01:15 91 24 98/58 (71) 93 01/21/21 01:00 88 25 102/62 (75) 94 01/21/21 01:00 19 113/70 Mechanical Ventilator 40 01/21/21 01:00 19 113/70 Mechanical Ventilator 40 01/21/21 00:58 87 23 50 01/21/21 00:00 88 01/21/21 00:00 Mechanical Ventilator 01/21/21 00:00 98.0 90 24 104/62 (76) 93 01/21/21 00:00 20 98/65 Mechanical Ventilator 50 01/21/21 00:00 20 98/65 Mechanical Ventilator 50 01/21/21 00:00 50 01/20/21 23:45 93 25 99/59 (72) 93 01/20/21 23:30 93 28 110/67 (81) 92 01/20/21 23:15 91 25 93/52 (66) 93 01/20/21 23:00 89 27 104/65 (78) 92 01/20/21 23:00 20 100/72 Mechanical Ventilator 50 01/20/21 23:00 20 100/72 Mechanical Ventilator 50 01/20/21 22:56 83 22 50 01/20/21 22:45 92 27 98/57 (71) 93 01/20/21 22:30 89 27 94/52 (66) 93 01/20/21 22:15 81 22 100/68 (79) 93 01/20/21 22:00 19 91/60 Mechanical Ventilator 50 01/20/21 22:00 20 89/62 Mechanical Ventilator 50 01/20/21 22:00 83 24 90/53 (65) 94 01/20/21 22:00 83 24 90/53 (65) 94 01/20/21 21:45 79 22 95/58 (70) 94 01/20/21 21:30 76 22 92/57 (69) 94 01/20/21 21:15 80 22 93/48 (63) 93 01/20/21 21:00 78 22 85/45 (58) 95 01/20/21 21:00 20 86/52 Mechanical Ventilator 50 01/20/21 21:00 19 86/61 Mechanical Ventilator 50 01/20/21 20:59 76 22 50 01/20/21 20:45 81 22 101/61 (74) 99 01/20/21 20:34 72 0 83/57 (66) 98 01/20/21 20:31 73 0 79/48 (58) 98 01/20/21 20:30 73 0 80/49 (59) 98 01/20/21 20:02 76 0 81/52 (62) 98 01/20/21 20:00 50 01/20/21 20:00 98.1 76 0 80/52 (61) 98 01/20/21 20:00 79 01/20/21 20:00 20 90/57 Mechanical Ventilator 50 01/20/21 20:00 20 90/53 Mechanical Ventilator 50 01/20/21 20:00 Mechanical Ventilator 01/20/21 19:38 80 22 50 01/20/21 19:30 79 22 85/54 (64) 98 01/20/21 19:00 84 22 98/63 (75) 97 01/20/21 19:00 20 89/56 Mechanical Ventilator 50 01/20/21 19:00 20 89/57 Mechanical Ventilator 50 01/20/21 18:30 66 22 116/75 (89) 95 01/20/21 18:00 64 22 118/79 (92) 95 01/20/21 17:30 77 22 107/68 (81) 94 01/20/21 17:00 22 127/84 Mechanical Ventilator 50 01/20/21 17:00 22 127/84 Mechanical Ventilator 50 01/20/21 17:00 71 22 127/84 (98) 95 01/20/21 16:30 70 22 122/77 (92) 93 01/20/21 16:00 50 01/20/21 16:00 Mechanical Ventilator 01/20/21 16:00 98.5 76 20 107/69 (82) 93 01/20/21 16:00 18 122/77 Mechanical Ventilator 50 01/20/21 16:00 18 122/77 Mechanical Ventilator 50 01/20/21 15:59 76 01/20/21 15:30 81 30 113/73 (86) 94 01/20/21 15:17 22 143/95 Mechanical Ventilator 50 01/20/21 15:15 22 106/68 50 01/20/21 15:15 89 32 135/89 (104) 94 01/20/21 15:00 88 22 143/95 (111) 95 01/20/21 15:00 18 113/73 Mechanical Ventilator 50 01/20/21 15:00 79 22 50 01/20/21 14:45 89 25 96/68 (77) 98 01/20/21 14:35 50 01/20/21 14:30 81 22 93/60 (71) 92 01/20/21 14:15 82 22 5/68 (47) 90 01/20/21 14:00 88 23 96/58 (71) 91 01/20/21 14:00 22 96/58 Mechanical Ventilator 60 01/20/21 13:45 96 21 101/60 (74) 92 01/20/21 13:30 99 22 106/75 (85) 93 01/20/21 13:15 106 29 121/74 (90) 95 01/20/21 13:00 24 106/75 Mechanical Ventilator 60 01/20/21 13:00 60 01/20/21 13:00 108 39 122/78 (93) 99 01/20/21 12:45 96 33 120/77 (91) 96 01/20/21 12:30 97 44 119/79 (92) 97 01/20/21 12:15 102 33 105/76 (86) 98 01/20/21 12:00 98 22 106/74 (85) 97 01/20/21 12:00 37 119/79 Mechanical Ventilator 70 01/20/21 12:00 70 01/20/21 12:00 Mechanical Ventilator 01/20/21 11:45 99.0 109 43 109/70 (83) 99 01/20/21 11:42 112 25 70 01/20/21 11:30 98 26 107/71 (83) 95 01/20/21 11:23 103 01/20/21 11:15 89 22 109/70 (83) 94 01/20/21 11:00 89 22 111/72 (85) 94 01/20/21 11:00 27 111/72 Mechanical Ventilator 80 01/20/21 10:45 104 45 118/81 (93) 90 01/20/21 10:30 104 45 121/88 (99) 90 01/20/21 10:15 101 22 106/71 (83) 95 01/20/21 10:00 101 22 108/64 (79) 95 01/20/21 10:00 22 108/64 Mechanical Ventilator 80 01/20/21 10:00 80 01/20/21 10:00 80 01/20/21 09:45 83 22 112/70 (84) 95 01/20/21 09:30 83 22 110/71 (84) 95 01/20/21 09:15 96 24 106/70 (82) 95 01/20/21 09:00 22 104/67 Mechanical Ventilator 22 01/20/21 09:00 22 104/67 Mechanical Ventilator 90 01/20/21 09:00 96 24 104/67 (79) 95 01/20/21 08:56 90 01/20/21 08:55 90 01/20/21 08:45 73 13 102/60 (74) 98 01/20/21 08:30 73 13 101/69 (80) 98 Intake and Output 01/20/21 01/21/21 19:00 07:00 Intake Total 1497.0 ml 973 ml Output Total 2925 ml 360 ml Balance -1428.0 ml 613 ml Free Water 190 ml IV Total 587.0 ml 253 ml Tube Feeding 720 ml 720 ml Output Urine Total 2925 ml 360 ml Current Medications Medications (Trade) Dose Ordered Sig/Johnny Route PRN Reason Start Time Stop Time Status Last Admin Dose Admin Acetaminophen (Tylenol) 650 mg Q6H PRN NG Temp >100.5 01/09/21 09:15 02/08/21 09:14 01/14/21 21:28 Acetaminophen (Tylenol) 650 mg Q6H PRN NG Mild Pain (Pain Scale 1-3) 01/09/21 09:15 02/08/21 09:14 Albuterol Sulfate (Proventil MDI) 2 puff Q6HRT INH 01/02/21 19:00 04/02/21 18:59 01/21/21 08:00 Benztropine Mesylate (Cogentin) 1 mg EVERY 12 HOURS NG 01/09/21 09:15 02/01/21 09:14 01/20/21 21:09 Chlorhexidine Gluconate (Myranda-Hex 2%) 1 applic DAILY@2000 TOPIC 01/12/21 20:00 04/12/21 19:59 01/20/21 21:09 Dextrose (Dextrose 50%) 25 ml Q30M PRN IV Hypoglycemia 01/06/21 23:45 04/06/21 23:44 Dextrose (Dextrose 50%) 50 ml Q30M PRN IV Hypoglycemia 01/06/21 23:45 04/06/21 23:44 Divalproex Sodium (Depakote Sprinkles) 500 mg Q12HR GT 01/13/21 21:00 02/12/21 20:59 01/20/21 21:09 Fentanyl Citrate 250 ml @ 0 mls/hr Q24H IV 01/20/21 03:00 01/22/21 02:59 01/20/21 15:17 Insulin Aspart (NovoLOG) EVERY 6 HOURS SUBQ 01/09/21 12:00 04/04/21 16:29 01/21/21 06:14 Ipratropium [place] (Atrovent Inh) 1 puffs Q6HRT INH 01/02/21 19:00 02/01/21 18:59 01/21/21 08:00 Lansoprazole (Prevacid) 30 mg DAILY GT 01/16/21 09:00 02/15/21 08:59 01/20/21 09:05 Methylprednisolone Sodium Succinate (Solu-MEDROL) 10 mg DAILY IVP 01/20/21 09:00 04/16/21 20:59 01/20/21 09:06 Midazolam HCl 200 ml @ 0 mls/hr Q24H PRN IV Agitation (RASS -2) 01/17/21 00:00 01/24/21 00:00 01/20/21 15:15 Midodrine (Pro-Amatine) 10 mg Q8HR ORAL 01/20/21 14:00 04/20/21 13:59 01/21/21 06:15 Ondansetron HCl (Zofran) 4 mg Q4H PRN IVP Nausea & Vomiting 01/02/21 08:15 02/01/21 08:14 Potassium Chloride (K-Dur) 20 meq TWICE A DAY NG 01/20/21 13:00 04/20/21 12:59 01/20/21 18:34 Quetiapine Fumarate (SEROqueL) 100 mg Q12HR ORAL 01/20/21 15:00 03/06/21 14:59 01/20/21 21:10 Warfarin Sodium (Coumadin per pharmacy) 1 ea DAILY PRN MISC Per rx protocol 01/02/21 08:30 02/01/21 08:29 Warfarin Sodium (Coumadin) 5 mg COUMADIN ORAL 01/21/21 17:00 01/21/21 17:01 Laboratory Tests 01/21/21 05:25: White Blood Count 8.1, Red Blood Count 4.28L, Hemoglobin 12.4L, Hematocrit 38.5L , Mean Corpuscular Volume 90, Mean Corpuscular Hemoglobin 28.9, Mean Corpuscular Hemoglobin Concent 32.1, Red Cell Distribution Width 14.7, Platelet Count 225, Mean Platelet Volume 10.0, Neutrophils (%) (Auto) 67.9, Lymphocytes (%) (Auto) 26.7, Monocytes (%) (Auto) 4.2, Eosinophils (%) (Auto) 0.5, Basophils (%) (Auto) 0.6, Prothrombin Time 20.7H, Prothromb Time International Ratio 2.0H, Sodium Level 144, Potassium Level 4.0, Chloride Level 108H, Carbon Dioxide Level 29, Anion Gap 7, Blood Urea Nitrogen 11, Creatinine 0.7, Estimat Glomerular Filtration Rate > 60, Glucose Level 249#H, Uric Acid 1.4L, Calcium Level 8.7, Phosphorus Level 2.4L, Magnesium Level 2.0, Total Bilirubin 0.3, Gamma Glutamyl Transpeptidase 101H, Aspartate Amino Transf (AST/SGOT) 19, Alanine Aminotransferase (ALT/SGPT) 21, Alkaline Phosphatase 57, C-Reactive Protein, Quantitative 11.3H, Pro-B-Type Natriuretic Peptide 326H, Total Protein 6.0L, Albumin 2.1L, Globulin 3.9, Albumin/Globulin Ratio 0.5L, Valproic Acid (Depakene) Level 36L Height (Feet): 5 Height (Inches): 5.00 Weight (Pounds): 233 General Appearance: no apparent distress EENT: other - Intubated on ventilator Cardiovascular: tachycardia Respiratory/Chest: decreased breath sounds Abdomen: distended Avi Frye MD Jan 21, 2021 08:16
[2021-01-21] MEDS: Versed 100mg/NS 200ml 200 ML IV PRN (08:30)
[2021-01-21] MEDS: Benztropine 1mg tab NG SCH ×2 (09:00→20:05)
[2021-01-21] MEDS: Lansoprazole 15mg cap GT SCH (09:00)
[2021-01-21] MEDS: Depakote 125mg Sprinkles GT SCH ×2 (09:00→20:05)
[2021-01-21] MEDS: Solu-MEDROL 40mg Inj IVP SCH (09:00)
--- NOTE | 2021-01-21 09:19 | Infectious Diseases Prog Note ---
Assessment/Plan 60yo M with: Staph epi bacteremia, m/l skin contaminant 01/10 BCx 1/2 +Staph epi 01/13 BCx NTD COVID pna, severe Acute hypoxia 2/2 COVID pna >> intubated 01/06 Febrile to 103 Normal WBC Elevated AST 51 2/2 Tested positive for COVID at [facility] 2 COVID PCR positive / BCx NTD CXR: Multifocal pna MRSA nares neg 01/06 Intubated in ICU CXR: 1. Appropriately positioned endotracheal and enteric tubes. 2. Stable bilateral airspace disease. 01/07 Resp cx +Yasmine albicans (colonizer) 01/11 CXR: Interval improved bilateral lung aeration. Bibasilar infiltrates/atelectasis. Cr 1.1 HIV screen neg PMH: DM2 COPD HTN SNF resident Plan: Monitor off abx as he is stable On steroids #18, on methylpred 20 IV q12 - defer course to Pulm/Primary, now tapering 01/19/21 SP Zosyn #10 01/14 SP vanco IV #1 01/09 SP CTX #7 01/07 SP azithro #5, RDV #5 This institution does not have access to convalescent plasma and only recommended to give in setting of clinical trial Monitor CBC/CMP Monitor temp curve, hemodynamics Monitor resp status D/w RN Thank you for this consult. [facility] will continue to follow. Subjective Allergies: Coded Allergies: No Known Allergies (Unverified , 01/02/21) Afebrile Remains on Vent 40% O2 No Leukocytosis Objective Last 24 Hour Vital Signs Date Time Temp Pulse Resp B/P (MAP) Pulse Ox O2 Delivery O2 Flow Rate FiO2 01/21/21 07:00 20 118/50 Mechanical Ventilator 40 01/21/21 07:00 20 116/50 Mechanical Ventilator 40 01/21/21 07:00 97 25 122/73 (89) 92 01/21/21 06:00 20 135/68 Mechanical Ventilator 40 01/21/21 06:00 20 105/63 Mechanical Ventilator 40 01/21/21 06:00 102 25 117/70 (86) 92 01/21/21 05:45 104 25 112/68 (83) 90 01/21/21 05:30 105 28 124/75 (91) 93 01/21/21 05:15 102 21 114/69 (84) 91 01/21/21 05:00 20 122/61 Mechanical Ventilator 40 01/21/21 05:00 20 122/61 Mechanical Ventilator 40 01/21/21 05:00 90 23 105/62 (76) 92 01/21/21 04:45 92 25 103/61 (75) 92 01/21/21 04:30 85 23 141/59 (86) 92 01/21/21 04:15 86 22 102/63 (76) 92 01/21/21 04:00 85 01/21/21 04:00 20 103/62 Mechanical Ventilator 40 01/21/21 04:00 20 103/62 Mechanical Ventilator 40 01/21/21 04:00 Mechanical Ventilator 01/21/21 04:00 99.2 88 22 103/60 (74) 93 01/21/21 04:00 50 01/21/21 03:45 89 25 107/63 (78) 92 01/21/21 03:30 86 22 110/69 (83) 92 01/21/21 03:15 85 20 107/65 (79) 100 01/21/21 03:13 90 26 50 01/21/21 03:00 83 22 105/61 (76) 94 01/21/21 03:00 20 109/72 Mechanical Ventilator 40 01/21/21 03:00 20 109/72 Mechanical Ventilator 40 01/21/21 02:45 87 23 105/67 (80) 94 01/21/21 02:30 85 22 102/59 (73) 94 01/21/21 02:15 88 22 100/63 (75) 93 01/21/21 02:00 20 117/65 Mechanical Ventilator 40 01/21/21 02:00 20 117/65 Mechanical Ventilator 40 01/21/21 02:00 96 24 102/54 (70) 94 01/21/21 01:45 98 27 103/62 (76) 93 01/21/21 01:30 92 26 107/67 (80) 93 01/21/21 01:15 91 24 98/58 (71) 93 01/21/21 01:00 88 25 102/62 (75) 94 01/21/21 01:00 19 113/70 Mechanical Ventilator 40 01/21/21 01:00 19 113/70 Mechanical Ventilator 40 01/21/21 00:58 87 23 50 01/21/21 00:00 88 2/22/21 00:00 Mechanical Ventilator 01/21/21 00:00 98.0 90 24 104/62 (76) 93 01/21/21 00:00 20 98/65 Mechanical Ventilator 50 01/21/21 00:00 20 98/65 Mechanical Ventilator 50 01/21/21 00:00 50 01/20/21 23:45 93 25 99/59 (72) 93 01/20/21 23:30 93 28 110/67 (81) 92 01/20/21 23:15 91 25 93/52 (66) 93 01/20/21 23:00 89 27 104/65 (78) 92 01/20/21 23:00 20 100/72 Mechanical Ventilator 50 01/20/21 23:00 20 100/72 Mechanical Ventilator 50 01/20/21 22:56 83 22 50 01/20/21 22:45 92 27 98/57 (71) 93 01/20/21 22:30 89 27 94/52 (66) 93 01/20/21 22:15 81 22 100/68 (79) 93 01/20/21 22:00 19 91/60 Mechanical Ventilator 50 01/20/21 22:00 20 89/62 Mechanical Ventilator 50 01/20/21 22:00 83 24 90/53 (65) 94 01/20/21 22:00 83 24 90/53 (65) 94 01/20/21 21:45 79 22 95/58 (70) 94 01/20/21 21:30 76 22 92/57 (69) 94 01/20/21 21:15 80 22 93/48 (63) 93 01/20/21 21:00 78 22 85/45 (58) 95 01/20/21 21:00 20 86/52 Mechanical Ventilator 50 01/20/21 21:00 19 86/61 Mechanical Ventilator 50 01/20/21 20:59 76 22 50 01/20/21 20:45 81 22 101/61 (74) 99 01/20/21 20:34 72 0 83/57 (66) 98 01/20/21 20:31 73 0 79/48 (58) 98 01/20/21 20:30 73 0 80/49 (59) 98 01/20/21 20:02 76 0 81/52 (62) 98 01/20/21 20:00 50 01/20/21 20:00 98.1 76 0 80/52 (61) 98 01/20/21 20:00 79 01/20/21 20:00 20 90/57 Mechanical Ventilator 50 01/20/21 20:00 20 90/53 Mechanical Ventilator 50 01/20/21 20:00 Mechanical Ventilator 01/20/21 19:38 80 22 50 01/20/21 19:30 79 22 85/54 (64) 98 01/20/21 19:00 84 22 98/63 (75) 97 01/20/21 19:00 20 89/56 Mechanical Ventilator 50 01/20/21 19:00 20 89/57 Mechanical Ventilator 50 01/20/21 18:30 66 22 116/75 (89) 95 01/20/21 18:00 64 22 118/79 (92) 95 01/20/21 17:30 77 22 107/68 (81) 94 01/20/21 17:00 22 127/84 Mechanical Ventilator 50 01/20/21 17:00 22 127/84 Mechanical Ventilator 50 01/20/21 17:00 71 22 127/84 (98) 95 01/20/21 16:30 70 22 122/77 (92) 93 01/20/21 16:00 50 01/20/21 16:00 Mechanical Ventilator 01/20/21 16:00 98.5 76 20 107/69 (82) 93 01/20/21 16:00 18 122/77 Mechanical Ventilator 50 01/20/21 16:00 18 122/77 Mechanical Ventilator 50 01/20/21 15:59 76 01/20/21 15:30 81 30 113/73 (86) 94 01/20/21 15:17 22 143/95 Mechanical Ventilator 50 01/20/21 15:15 22 106/68 50 01/20/21 15:15 89 32 135/89 (104) 94 01/20/21 15:00 88 22 143/95 (111) 95 01/20/21 15:00 18 113/73 Mechanical Ventilator 50 01/20/21 15:00 79 22 50 01/20/21 14:45 89 25 96/68 (77) 98 01/20/21 14:35 50 01/20/21 14:30 81 22 93/60 (71) 92 01/20/21 14:15 82 22 5/68 (47) 90 01/20/21 14:00 88 23 96/58 (71) 91 01/20/21 14:00 22 96/58 Mechanical Ventilator 60 01/20/21 13:45 96 21 101/60 (74) 92 01/20/21 13:30 99 22 106/75 (85) 93 01/20/21 13:15 106 29 121/74 (90) 95 01/20/21 13:00 24 106/75 Mechanical Ventilator 60 01/20/21 13:00 60 01/20/21 13:00 108 39 122/78 (93) 99 01/20/21 12:45 96 33 120/77 (91) 96 01/20/21 12:30 97 44 119/79 (92) 97 01/20/21 12:15 102 33 105/76 (86) 98 01/20/21 12:00 98 22 106/74 (85) 97 01/20/21 12:00 37 119/79 Mechanical Ventilator 70 01/20/21 12:00 70 01/20/21 12:00 Mechanical Ventilator 01/20/21 11:45 99.0 109 43 109/70 (83) 99 01/20/21 11:42 112 25 70 01/20/21 11:30 98 26 107/71 (83) 95 01/20/21 11:23 103 01/20/21 11:15 89 22 109/70 (83) 94 01/20/21 11:00 89 22 111/72 (85) 94 01/20/21 11:00 27 111/72 Mechanical Ventilator 80 01/20/21 10:45 104 45 118/81 (93) 90 01/20/21 10:30 104 45 121/88 (99) 90 01/20/21 10:15 101 22 106/71 (83) 95 01/20/21 10:00 101 22 108/64 (79) 95 01/20/21 10:00 22 108/64 Mechanical Ventilator 80 01/20/21 10:00 80 01/20/21 10:00 80 01/20/21 09:45 83 22 112/70 (84) 95 01/20/21 09:30 83 22 110/71 (84) 95 Height (Feet): 5 Height (Inches): 5.00 Weight (Pounds): 233 Gen: NAD on Vent satting well HEENT: NCAT, ETT CV: RRR Pulm: BL chest rise, RRR Ext: No c/c/e Skin: No visible rashes Neuro: Sedated Laboratory Tests Test 01/21/21 05:25 White Blood Count 8.1 K/UL (4.8-10.8) Red Blood Count 4.28 M/UL (4.70-6.10) L Hemoglobin 12.4 G/DL (14.2-18.0) L Hematocrit 38.5 % (42.0-52.0) L Mean Corpuscular Volume 90 FL (80-99) Mean Corpuscular Hemoglobin 28.9 PG (27.0-31.0) Mean Corpuscular Hemoglobin Concent 32.1 G/DL (32.0-36.0) Red Cell Distribution Width 14.7 % (11.6-14.8) Platelet Count 225 K/UL (150-450) Mean Platelet Volume 10.0 FL (6.5-10.1) Neutrophils (%) (Auto) 67.9 % (45.0-75.0) Lymphocytes (%) (Auto) 26.7 % (20.0-45.0) Monocytes (%) (Auto) 4.2 % (1.0-10.0) Eosinophils (%) (Auto) 0.5 % (0.0-3.0) Basophils (%) (Auto) 0.6 % (0.0-2.0) Prothrombin Time 20.7 SEC (9.30-11.50) H Prothromb Time International Ratio 2.0 (0.9-1.1) H Sodium Level 144 MMOL/L (136-145) Potassium Level 4.0 MMOL/L (3.5-5.1) Chloride Level 108 MMOL/L (98-107) H Carbon Dioxide Level 29 MMOL/L (21-32) Anion Gap 7 mmol/L (5-15) Blood Urea Nitrogen 11 mg/dL (7-18) Creatinine 0.7 MG/DL (0.55-1.30) Estimat Glomerular Filtration Rate > 60 mL/min (>60) Glucose Level 249 MG/DL (74-106) #H Uric Acid 1.4 MG/DL (2.6-7.2) L Calcium Level 8.7 MG/DL (8.5-10.1) Phosphorus Level 2.4 MG/DL (2.5-4.9) L Magnesium Level 2.0 MG/DL (1.8-2.4) Total Bilirubin 0.3 MG/DL (0.2-1.0) Gamma Glutamyl Transpeptidase 101 U/L (5-85) H Aspartate Amino Transf (AST/SGOT) 19 U/L (15-37) Alanine Aminotransferase (ALT/SGPT) 21 U/L (12-78) Alkaline Phosphatase 57 U/L (46-116) C-Reactive Protein, Quantitative 11.3 mg/dL (0.00-0.90) H Pro-B-Type Natriuretic Peptide 326 pg/mL (0-125) H Total Protein 6.0 G/DL (6.4-8.2) L Albumin 2.1 G/DL (3.4-5.0) L Globulin 3.9 g/dL Albumin/Globulin Ratio 0.5 (1.0-2.7) L Valproic Acid (Depakene) Level 36 MCG/ML (50-100) L Current Medications Medications (Trade) Dose Ordered Sig/Johnny Route PRN Reason Start Time Stop Time Status Last Admin Dose Admin Acetaminophen (Tylenol) 650 mg Q6H PRN NG Temp >100.5 01/09/21 09:15 02/08/21 09:14 01/14/21 21:28 Acetaminophen (Tylenol) 650 mg Q6H PRN NG Mild Pain (Pain Scale 1-3) 01/09/21 09:15 02/08/21 09:14 Albuterol Sulfate (Proventil MDI) 2 puff Q6HRT INH 01/02/21 19:00 04/02/21 18:59 01/21/21 08:00 Benztropine Mesylate (Cogentin) 1 mg EVERY 12 HOURS NG 01/09/21 09:15 02/01/21 09:14 01/20/21 21:09 Chlorhexidine Gluconate (Myranda-Hex 2%) 1 applic DAILY@2000 TOPIC 01/12/21 20:00 04/12/21 19:59 01/20/21 21:09 Dextrose (Dextrose 50%) 25 ml Q30M PRN IV Hypoglycemia 01/06/21 23:45 04/06/21 23:44 Dextrose (Dextrose 50%) 50 ml Q30M PRN IV Hypoglycemia 01/06/21 23:45 04/06/21 23:44 Divalproex Sodium (Depakote Sprinkles) 500 mg Q12HR GT 01/13/21 21:00 02/12/21 20:59 01/20/21 21:09 Fentanyl Citrate 250 ml @ 0 mls/hr Q24H IV 01/20/21 03:00 01/22/21 02:59 01/20/21 15:17 Insulin Aspart (NovoLOG) EVERY 6 HOURS SUBQ 01/09/21 12:00 04/04/21 16:29 01/21/21 06:14 Ipratropium Holder (Atrovent Inh) 1 puffs Q6HRT INH 01/02/21 19:00 02/01/21 18:59 01/21/21 08:00 Lansoprazole (Prevacid) 30 mg DAILY GT 01/16/21 09:00 02/15/21 08:59 01/20/21 09:05 Methylprednisolone Sodium Succinate (Solu-MEDROL) 10 mg DAILY IVP 01/20/21 09:00 04/16/21 20:59 01/20/21 09:06 Midazolam HCl 200 ml @ 0 mls/hr Q24H PRN IV Agitation (RASS -2) 01/17/21 00:00 01/24/21 00:00 01/20/21 15:15 Midodrine (Pro-Amatine) 10 mg Q8HR ORAL 01/20/21 14:00 04/20/21 13:59 01/21/21 06:15 Ondansetron HCl (Zofran) 4 mg Q4H PRN IVP Nausea & Vomiting 01/02/21 08:15 02/01/21 08:14 Potassium Chloride (K-Dur) 20 meq TWICE A DAY NG 01/20/21 13:00 04/20/21 12:59 01/20/21 18:34 Quetiapine Fumarate (SEROqueL) 100 mg Q12HR ORAL 01/20/21 15:00 03/06/21 14:59 01/20/21 21:10 Warfarin Sodium (Coumadin per pharmacy) 1 ea DAILY PRN MISC Per rx protocol 01/02/21 08:30 02/01/21 08:29 Warfarin Sodium (Coumadin) 5 mg COUMADIN ORAL 01/21/21 17:00 01/21/21 17:01 Anuel Crespo MD Jan 21, 2021 09:19
--- NOTE | 2021-01-21 11:23 | Surgery Progress Note ---
Surgery Progress Note Subjective Additional Comments Patient seen and examined bedside. No acute events. Weaning well. FiO2 down to 50% PEEP of 7. Continue weaning. If unable to extubate we will plan tracheo stomy. Objective Last 24 Hour Vital Signs Date Time Temp Pulse Resp B/P (MAP) Pulse Ox O2 Delivery O2 Flow Rate FiO2 01/21/21 08:30 22 126/58 Mechanical Ventilator 50 01/21/21 07:00 20 118/50 Mechanical Ventilator 40 01/21/21 07:00 20 116/50 Mechanical Ventilator 40 01/21/21 07:00 97 25 122/73 (89) 92 01/21/21 06:00 20 135/68 Mechanical Ventilator 40 01/21/21 06:00 20 105/63 Mechanical Ventilator 40 01/21/21 06:00 102 25 117/70 (86) 92 01/21/21 05:45 104 25 112/68 (83) 90 01/21/21 05:30 105 28 124/75 (91) 93 01/21/21 05:15 102 21 114/69 (84) 91 01/21/21 05:00 20 122/61 Mechanical Ventilator 40 01/21/21 05:00 20 122/61 Mechanical Ventilator 40 01/21/21 05:00 90 23 105/62 (76) 92 01/21/21 04:45 92 25 103/61 (75) 92 01/21/21 04:30 85 23 141/59 (86) 92 01/21/21 04:15 86 22 102/63 (76) 92 01/21/21 04:00 85 01/21/21 04:00 20 103/62 Mechanical Ventilator 40 01/21/21 04:00 20 103/62 Mechanical Ventilator 40 01/21/21 04:00 Mechanical Ventilator 01/21/21 04:00 99.2 88 22 103/60 (74) 93 01/21/21 04:00 50 01/21/21 03:45 89 25 107/63 (78) 92 01/21/21 03:30 86 22 110/69 (83) 92 01/21/21 03:15 85 20 107/65 (79) 100 01/21/21 03:13 90 26 50 01/21/21 03:00 83 22 105/61 (76) 94 01/21/21 03:00 20 109/72 Mechanical Ventilator 40 01/21/21 03:00 20 109/72 Mechanical Ventilator 40 01/21/21 02:45 87 23 105/67 (80) 94 01/21/21 02:30 85 22 102/59 (73) 94 01/21/21 02:15 88 22 100/63 (75) 93 01/21/21 02:00 20 117/65 Mechanical Ventilator 40 01/21/21 02:00 20 117/65 Mechanical Ventilator 40 01/21/21 02:00 96 24 102/54 (70) 94 01/21/21 01:45 98 27 103/62 (76) 93 01/21/21 01:30 92 26 107/67 (80) 93 01/21/21 01:15 91 24 98/58 (71) 93 01/21/21 01:00 88 25 102/62 (75) 94 01/21/21 01:00 19 113/70 Mechanical Ventilator 40 01/21/21 01:00 19 113/70 Mechanical Ventilator 40 01/21/21 00:58 87 23 50 01/21/21 00:00 88 01/21/21 00:00 Mechanical Ventilator 01/21/21 00:00 98.0 90 24 104/62 (76) 93 01/21/21 00:00 20 98/65 Mechanical Ventilator 50 01/21/21 00:00 20 98/65 Mechanical Ventilator 50 01/21/21 00:00 50 01/20/21 23:45 93 25 99/59 (72) 93 01/20/21 23:30 93 28 110/67 (81) 92 01/20/21 23:15 91 25 93/52 (66) 93 01/20/21 23:00 89 27 104/65 (78) 92 01/20/21 23:00 20 100/72 Mechanical Ventilator 50 01/20/21 23:00 20 100/72 Mechanical Ventilator 50 01/20/21 22:56 83 22 50 01/20/21 22:45 92 27 98/57 (71) 93 01/20/21 22:30 89 27 94/52 (66) 93 01/20/21 22:15 81 22 100/68 (79) 93 01/20/21 22:00 19 91/60 Mechanical Ventilator 50 01/20/21 22:00 20 89/62 Mechanical Ventilator 50 01/20/21 22:00 83 24 90/53 (65) 94 01/20/21 22:00 83 24 90/53 (65) 94 01/20/21 21:45 79 22 95/58 (70) 94 01/20/21 21:30 76 22 92/57 (69) 94 01/20/21 21:15 80 22 93/48 (63) 93 01/20/21 21:00 78 22 85/45 (58) 95 01/20/21 21:00 20 86/52 Mechanical Ventilator 50 01/20/21 21:00 19 86/61 Mechanical Ventilator 50 01/20/21 20:59 76 22 50 01/20/21 20:45 81 22 101/61 (74) 99 01/20/21 20:34 72 0 83/57 (66) 98 01/20/21 20:31 73 0 79/48 (58) 98 01/20/21 20:30 73 0 80/49 (59) 98 01/20/21 20:02 76 0 81/52 (62) 98 01/20/21 20:00 50 01/20/21 20:00 98.1 76 0 80/52 (61) 98 01/20/21 20:00 79 01/20/21 20:00 20 90/57 Mechanical Ventilator 50 01/20/21 20:00 20 90/53 Mechanical Ventilator 50 01/20/21 20:00 Mechanical Ventilator 01/20/21 19:38 80 22 50 01/20/21 19:30 79 22 85/54 (64) 98 01/20/21 19:00 84 22 98/63 (75) 97 01/20/21 19:00 20 89/56 Mechanical Ventilator 50 01/20/21 19:00 20 89/57 Mechanical Ventilator 50 01/20/21 18:30 66 22 116/75 (89) 95 01/20/21 18:00 64 22 118/79 (92) 95 01/20/21 17:30 77 22 107/68 (81) 94 01/20/21 17:00 22 127/84 Mechanical Ventilator 50 01/20/21 17:00 22 127/84 Mechanical Ventilator 50 01/20/21 17:00 71 22 127/84 (98) 95 01/20/21 16:30 70 22 122/77 (92) 93 01/20/21 16:00 50 2/21/21 16:00 Mechanical Ventilator 01/20/21 16:00 98.5 76 20 107/69 (82) 93 01/20/21 16:00 18 122/77 Mechanical Ventilator 50 01/20/21 16:00 18 122/77 Mechanical Ventilator 50 01/20/21 15:59 76 01/20/21 15:30 81 30 113/73 (86) 94 01/20/21 15:17 22 143/95 Mechanical Ventilator 50 01/20/21 15:15 22 106/68 50 01/20/21 15:15 89 32 135/89 (104) 94 01/20/21 15:00 88 22 143/95 (111) 95 01/20/21 15:00 18 113/73 Mechanical Ventilator 50 01/20/21 15:00 79 22 50 01/20/21 14:45 89 25 96/68 (77) 98 01/20/21 14:35 50 01/20/21 14:30 81 22 93/60 (71) 92 01/20/21 14:15 82 22 5/68 (47) 90 01/20/21 14:00 88 23 96/58 (71) 91 01/20/21 14:00 22 96/58 Mechanical Ventilator 60 01/20/21 13:45 96 21 101/60 (74) 92 01/20/21 13:30 99 22 106/75 (85) 93 01/20/21 13:15 106 29 121/74 (90) 95 01/20/21 13:00 24 106/75 Mechanical Ventilator 60 01/20/21 13:00 60 01/20/21 13:00 108 39 122/78 (93) 99 01/20/21 12:45 96 33 120/77 (91) 96 01/20/21 12:30 97 44 119/79 (92) 97 01/20/21 12:15 102 33 105/76 (86) 98 01/20/21 12:00 98 22 106/74 (85) 97 01/20/21 12:00 37 119/79 Mechanical Ventilator 70 01/20/21 12:00 70 01/20/21 12:00 Mechanical Ventilator 01/20/21 11:45 99.0 109 43 109/70 (83) 99 01/20/21 11:42 112 25 70 01/20/21 11:30 98 26 107/71 (83) 95 01/20/21 11:23 103 I&O Intake and Output 01/20/21 01/21/21 19:00 07:00 Intake Total 1497.0 ml 973 ml Output Total 2925 ml 360 ml Balance -1428.0 ml 613 ml Free Water 190 ml IV Total 587.0 ml 253 ml Tube Feeding 720 ml 720 ml Output Urine Total 2925 ml 360 ml Dressing: saturated Cardiovascular: RSR Respiratory: decreased breath sounds Abdomen: soft, non-tender, present bowel sounds, non-distended Extremities: no edema, no tenderness, no cyanosis Laboratory Tests Test 01/21/21 05:25 01/21/21 10:40 White Blood Count 8.1 K/UL (4.8-10.8) Red Blood Count 4.28 M/UL (4.70-6.10) L Hemoglobin 12.4 G/DL (14.2-18.0) L Hematocrit 38.5 % (42.0-52.0) L Mean Corpuscular Volume 90 FL (80-99) Mean Corpuscular Hemoglobin 28.9 PG (27.0-31.0) Mean Corpuscular Hemoglobin Concent 32.1 G/DL (32.0-36.0) Red Cell Distribution Width 14.7 % (11.6-14.8) Platelet Count 225 K/UL (150-450) Mean Platelet Volume 10.0 FL (6.5-10.1) Neutrophils (%) (Auto) 67.9 % (45.0-75.0) Lymphocytes (%) (Auto) 26.7 % (20.0-45.0) Monocytes (%) (Auto) 4.2 % (1.0-10.0) Eosinophils (%) (Auto) 0.5 % (0.0-3.0) Basophils (%) (Auto) 0.6 % (0.0-2.0) Prothrombin Time 20.7 SEC (9.30-11.50) H Prothromb Time International Ratio 2.0 (0.9-1.1) H Sodium Level 144 MMOL/L (136-145) Potassium Level 4.0 MMOL/L (3.5-5.1) Chloride Level 108 MMOL/L (98-107) H Carbon Dioxide Level 29 MMOL/L (21-32) Anion Gap 7 mmol/L (5-15) Blood Urea Nitrogen 11 mg/dL (7-18) Creatinine 0.7 MG/DL (0.55-1.30) Estimat Glomerular Filtration Rate > 60 mL/min (>60) Glucose Level 249 MG/DL (74-106) #H Uric Acid 1.4 MG/DL (2.6-7.2) L Calcium Level 8.7 MG/DL (8.5-10.1) Phosphorus Level 2.4 MG/DL (2.5-4.9) L Magnesium Level 2.0 MG/DL (1.8-2.4) Total Bilirubin 0.3 MG/DL (0.2-1.0) Gamma Glutamyl Transpeptidase 101 U/L (5-85) H Aspartate Amino Transf (AST/SGOT) 19 U/L (15-37) Alanine Aminotransferase (ALT/SGPT) 21 U/L (12-78) Alkaline Phosphatase 57 U/L (46-116) C-Reactive Protein, Quantitative 11.3 mg/dL (0.00-0.90) H Pro-B-Type Natriuretic Peptide 326 pg/mL (0-125) H Total Protein 6.0 G/DL (6.4-8.2) L Albumin 2.1 G/DL (3.4-5.0) L Globulin 3.9 g/dL Albumin/Globulin Ratio 0.5 (1.0-2.7) L Valproic Acid (Depakene) Level 36 MCG/ML (50-100) L Arterial Blood pH 7.463 (7.350-7.450) Arterial Blood Partial Pressure CO2 37.3 mmHg (35.0-45.0) Arterial Blood Partial Pressure O2 63.4 mmHg (75.0-100.0) L Arterial Blood HCO3 26.1 mmol/L (22.0-26.0) H Arterial Blood Oxygen Saturation 91.9 % (95-100) L Arterial Blood Base Excess 2.4 (-2-2) H Miguelito Test Positive Plan Problems: (1) COPD (chronic obstructive pulmonary disease) (2) Essential hypertension (3) Schizophrenia (4) Obesity (5) Diabetes mellitus type 2 in obese (6) History of hydrocephalus (7) Anticoagulant long-term use (8) Bipolar 1 disorder (9) History of deep venous thrombosis or pulmonary embolus (10) Acute hypercapnic respiratory failure (11) Sepsis Assessment & Plan: 60-year-old male Covid positive respiratory insufficiency and severe decline being prone intubated on vent support labs noted septic ill- appearing has been developing wound around the face from ET tube.Receiv ed report from RT pt is being proned and was observed to have developed a blood blister under vent tape on L cheek and L earlobe. Skin assessed and pt was observed to have a blood blister that is 50% de-capped,50% intact. Intact Blood Blister noted to L earlobe. Skin Barrier applied to affected areas. Optifoam Thin foam placed between vent anchor and pt's skin. Optifoam thin placed to R cheek under Vent tape, on Bridge of nose and both earlobes. Given patient's critical status current care plan and findings nutritional optimization is strongly encouraged Covid nutrition plan initiated. All Covid precautions are being taken. Imaging reviewed. Will follow with care plan. Thank you Mckeon participation care Tx.Plan: Maintain Optifoam Thin foam to R and L cheeks,Bridge of Nose and Both Ears . Change every 7 days and prn.( May request Optifoam Thin from RT dept). APM/PEPE Mattress overlay DAILY ESTIMATED NEEDS: Needs based on Critical care, pulmonary, obese 73.7kg abw 22-28 kcals/kg 2593-3347 total kcals 1.2-2 g protein/kg 88-147 g total protein 25-30 mL/kg 3462-3913 total fluid mLs NUTRITION DIAGNOSIS: Altered nutrition related lab values r/t steroidal meds, clinical status as evidenced by febrile on adm (102.5), elevated BG (270 287) on solumedrol, elevated lipid panel (Triglycerides 333, Chol 370, LDL 150). CURRENT TF:Vital @30ml/hr, now Nepro @30 ENTERAL NUTRITION RECOMMENDATIONS: NEPRO @30ml/hr while supine to provide x8 hrs feeds: 360ml, 648 kcal, 29g pro, 262ml free H2O - Feed at rate best tolerated, currently not meeting est needs d/t proning and aspiration risk w/ supine feeds limited to 8hrs/day. - W/ reduced aspiration risk rec feedings to total Volume of 900ml/day of Nepro as medically able. - Monitor tolerance, position/HOB >30 degrees, hemodynamic stability and ability to increase to meet est kcal and pro needs. - With increase pressor support, rec trophic feeds of 10ml/hr for gut integrity. - When tolerating TF at goal add Prosource BID to better meet est pro needs. ADDITIONAL RECOMMENDATIONS: 1) Now intubated, TF recs above when off proning (8hrs feeds) 2) Obtain calibrated bedscale wts 3) HgA1C/ elevated BG Need for niss while on D5 4) Lytes daily; replete as needed 5) Monitor triglycerides, TF tolerance, hemodynamic stability. (12) Respiratory failure with hypoxia (13) Pneumonia due to COVID-19 virus (14) Hyperkalemia (15) DMII (diabetes mellitus, type 2) Ki Strong Jan 21, 2021 11:23
[2021-01-21] MEDS ORDERED: Sterile Water Irrig 1000ml IRRIG ONE (13:44)
[2021-01-21] MEDS ORDERED: 1/2 NS 1000ml IV ONE (13:44)
[2021-01-21] MEDS ORDERED: Tubing IV Secondary IV ONE ×2 (13:44→13:59)
[2021-01-21] MEDS ORDERED: NS 275ml ONE ×2 (13:44→13:59)
[2021-01-21] MEDS: fentaNYL 2500mcg/NS 250ml 250 ML IV SCH (14:45)
[2021-01-21] MEDS ORDERED: Warfarin Sodium 5mg ORAL SCH (17:00)
--- NOTE | 2021-01-21 18:54 | Internal Med Progress Note ---
Subjective Date of Service: Jan 21, 2021 Physician Name Brown,Vickey Attending Physician Geovanny Bradley MD Current Medications Medications (Trade) Dose Ordered Sig/Johnny Route PRN Reason Start Time Stop Time Status Last Admin Dose Admin Acetaminophen (Tylenol) 650 mg Q6H PRN NG Temp >100.5 01/09/21 09:15 02/08/21 09:14 01/14/21 21:28 Acetaminophen (Tylenol) 650 mg Q6H PRN NG Mild Pain (Pain Scale 1-3) 01/09/21 09:15 02/08/21 09:14 Albuterol Sulfate (Proventil I) 2 puff Q6HRT INH 01/02/21 19:00 04/02/21 18:59 01/21/21 12:34 Benztropine Mesylate (Cogentin) 1 mg EVERY 12 HOURS NG 01/09/21 09:15 02/01/21 09:14 01/21/21 09:00 Chlorhexidine Gluconate (Myranda-Hex 2%) 1 applic DAILY@2000 TOPIC 01/12/21 20:00 04/12/21 19:59 01/20/21 21:09 Dextrose (Dextrose 50%) 25 ml Q30M PRN IV Hypoglycemia 01/06/21 23:45 04/06/21 23:44 Dextrose (Dextrose 50%) 50 ml Q30M PRN IV Hypoglycemia 01/06/21 23:45 04/06/21 23:44 Divalproex Sodium (Depakote Sprinkles) 500 mg Q12HR GT 01/13/21 21:00 02/12/21 20:59 01/21/21 09:00 Fentanyl Citrate 250 ml @ 0 mls/hr Q24H IV 01/20/21 03:00 01/22/21 02:59 01/21/21 14:45 Insulin Aspart (NovoLOG) EVERY 6 HOURS SUBQ 01/09/21 12:00 04/04/21 16:29 01/21/21 18:29 Ipratropium [place] (Atrovent Inh) 1 puffs Q6HRT INH 01/02/21 19:00 02/01/21 18:59 01/21/21 12:34 Lansoprazole (Prevacid) 30 mg DAILY GT 01/16/21 09:00 02/15/21 08:59 01/21/21 09:00 Midazolam HCl 200 ml @ 0 mls/hr Q24H PRN IV Agitation (RASS -2) 01/17/21 00:00 01/24/21 00:00 01/21/21 08:30 Midodrine (Pro-Amatine) 10 mg Q8HR ORAL 01/20/21 14:00 04/20/21 13:59 01/21/21 14:43 Ondansetron HCl (Zofran) 4 mg Q4H PRN IVP Nausea & Vomiting 01/02/21 08:15 02/01/21 08:14 Potassium Chloride (K-Dur) 20 meq TWICE A DAY NG 01/20/21 13:00 04/20/21 12:59 01/21/21 18:29 Quetiapine Fumarate (SEROqueL) 100 mg Q12HR ORAL 01/20/21 15:00 03/06/21 14:59 01/21/21 09:00 Warfarin Sodium (Coumadin per pharmacy) 1 ea DAILY PRN MISC Per rx protocol 01/02/21 08:30 02/01/21 08:29 Allergies: Coded Allergies: No Known Allergies (Unverified , 01/02/21) ROS Limited/Unobtainable: Yes Subjective 60 YO M admitted with shortness of breath. Now respiratory failure. Cover for Int Rohit-DR Bradley. ICU. Intubated and sedated Objective Last Vital Signs Date Time Temp Pulse Resp B/P (MAP) Pulse Ox O2 Delivery O2 Flow Rate FiO2 01/21/21 17:00 81 6 97/66 (76) 97 01/21/21 16:00 99.8 01/21/21 16:00 Mechanical Ventilator 01/21/21 16:00 50 01/14/21 03:33 15.0 Laboratory Tests Test 01/21/21 05:25 01/21/21 10:40 White Blood Count 8.1 K/UL (4.8-10.8) Red Blood Count 4.28 M/UL (4.70-6.10) L Hemoglobin 12.4 G/DL (14.2-18.0) L Hematocrit 38.5 % (42.0-52.0) L Mean Corpuscular Volume 90 FL (80-99) Mean Corpuscular Hemoglobin 28.9 PG (27.0-31.0) Mean Corpuscular Hemoglobin Concent 32.1 G/DL (32.0-36.0) Red Cell Distribution Width 14.7 % (11.6-14.8) Platelet Count 225 K/UL (150-450) Mean Platelet Volume 10.0 FL (6.5-10.1) Neutrophils (%) (Auto) 67.9 % (45.0-75.0) Lymphocytes (%) (Auto) 26.7 % (20.0-45.0) Monocytes (%) (Auto) 4.2 % (1.0-10.0) Eosinophils (%) (Auto) 0.5 % (0.0-3.0) Basophils (%) (Auto) 0.6 % (0.0-2.0) Prothrombin Time 20.7 SEC (9.30-11.50) H Prothromb Time International Ratio 2.0 (0.9-1.1) H Sodium Level 144 MMOL/L (136-145) Potassium Level 4.0 MMOL/L (3.5-5.1) Chloride Level 108 MMOL/L (98-107) H Carbon Dioxide Level 29 MMOL/L (21-32) Anion Gap 7 mmol/L (5-15) Blood Urea Nitrogen 11 mg/dL (7-18) Creatinine 0.7 MG/DL (0.55-1.30) Estimat Glomerular Filtration Rate > 60 mL/min (>60) Glucose Level 249 MG/DL (74-106) #H Uric Acid 1.4 MG/DL (2.6-7.2) L Calcium Level 8.7 MG/DL (8.5-10.1) Phosphorus Level 2.4 MG/DL (2.5-4.9) L Magnesium Level 2.0 MG/DL (1.8-2.4) Total Bilirubin 0.3 MG/DL (0.2-1.0) Gamma Glutamyl Transpeptidase 101 U/L (5-85) H Aspartate Amino Transf (AST/SGOT) 19 U/L (15-37) Alanine Aminotransferase (ALT/SGPT) 21 U/L (12-78) Alkaline Phosphatase 57 U/L (46-116) C-Reactive Protein, Quantitative 11.3 mg/dL (0.00-0.90) H Pro-B-Type Natriuretic Peptide 326 pg/mL (0-125) H Total Protein 6.0 G/DL (6.4-8.2) L Albumin 2.1 G/DL (3.4-5.0) L Globulin 3.9 g/dL Albumin/Globulin Ratio 0.5 (1.0-2.7) L Valproic Acid (Depakene) Level 36 MCG/ML (50-100) L Arterial Blood pH 7.463 (7.350-7.450) Arterial Blood Partial Pressure CO2 37.3 mmHg (35.0-45.0) Arterial Blood Partial Pressure O2 63.4 mmHg (75.0-100.0) L Arterial Blood HCO3 26.1 mmol/L (22.0-26.0) H Arterial Blood Oxygen Saturation 91.9 % (95-100) L Arterial Blood Base Excess 2.4 (-2-2) H Miguelito Test Positive Intake and Output 01/20/21 01/21/21 19:00 07:00 Intake Total 1497.0 ml 973 ml Output Total 2925 ml 360 ml Balance -1428.0 ml 613 ml Free Water 190 ml IV Total 587.0 ml 253 ml Tube Feeding 720 ml 720 ml Output Urine Total 2925 ml 360 ml Objective Objective General: awake, responsive , confused. HEENT: NCAT, sclera anicteric, PERRL, EOMI. Neck: Supple, no significant jugular venous distention, Lungs: mech vent; decreased air at the bases, occasional crackles, no Wheeze. Heart: Regular rate and rhythm, normal S1/S2, no murmurs Abdomen: soft, nontender, nondistended. Normoactive bowel sound, obesity. / Rectal: Refused and deferred. Extremities: Left LE: No Cyanosis , clubbing or edema. Right LE AKA. Neuro: A&O x 2, Able to move all extremities Skin: warm, no rashes or lesions. Assessment/Plan Assessment/Plan Assessment/Plan Assessment/Plan (1) Pneumonia due to COVID-19 virus ICD Codes: U07.1 - COVID-19; J12.82 - Pneumonia due to coronavirus disease 2019 SNOMED: 234268951070048060 (2) Acute hypercapnic respiratory failure ICD Codes: J96.02 - Acute respiratory failure with hypercapnia SNOMED: 513446414 (3) Respiratory failure with hypoxia ICD Codes: J96.91 - Respiratory failure, unspecified with hypoxia SNOMED: 26100679237049356 Qualifiers: Qualified Codes: J96.01 - Acute respiratory failure with hypoxia (4) COPD (chronic obstructive pulmonary disease) ICD Codes: J44.9 - Chronic obstructive pulmonary disease, unspecified SNOMED: 76106501 (5) History of deep venous thrombosis or pulmonary embolus SNOMED: 501445199 (6) Obesity ICD Codes: E66.9 - Obesity, unspecified SNOMED: 489985204, 199134236 (7) Essential hypertension ICD Codes: I10 - Essential (primary) hypertension SNOMED: 74221422 (8) Diabetes mellitus type 2 in obese ICD Codes: E11.69 - Type 2 diabetes mellitus with other specified complication; E66.9 - Obesity, unspecified SNOMED: 71695506 (9) History of hydrocephalus ICD Codes: Z86.69 - Personal history of other diseases of the nervous system and sense organs SNOMED: 599962354 (10) Schizophrenia ICD Codes: F20.9 - Schizophrenia, unspecified SNOMED: 75849777 (11) Bipolar 1 disorder ICD Codes: F31.9 - Bipolar disorder, unspecified SNOMED: 176223004 (12) Anticoagulant long-term use 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 Sepsis=gram pos cocci Assessment/Plan: Optimize pulmonary hygiene/mobilize as tolerated Non Rebreather mask>BIPAP>intubated On Remdesivir IV Solu-Medrol 40 mg IV twice a day. Abx =zosyn and S/P vanco F/U Cx's Monitor volumes and renal function DVT Px: Coumadin DC IV fluid Start diet Monitor blood glucose level closely. On levophed, fentanyl and propofol drips Pulmonary=Dr Luis ID=Dr Gomez Psych consult=Dr Gallegos Start seroquel at 1/2 previous dose Vickey Brown MD Jan 21, 2021 18:54
[2021-01-21] MEDS: Dyna-Hex 2% Top Sol 2oz TOPIC SCH (20:04)
[2021-01-21] MEDS: Acetaminophen 650mg/20.3ml NG PRN (23:06)
--- NOTE | 2021-01-21 23:28 | Pulmonology Progress Note ---
Subjective ROS Limited/Unobtainable: Yes Allergies: Coded Allergies: No Known Allergies (Unverified , 01/02/21) Objective Last 24 Hour Vital Signs Date Time Temp Pulse Resp B/P (MAP) Pulse Ox O2 Delivery O2 Flow Rate FiO2 01/21/21 19:18 85 22 50 01/21/21 19:15 85 22 90/53 (65) 97 01/21/21 19:00 83 22 96/64 (75) 97 01/21/21 19:00 22 96/64 Mechanical Ventilator 50 01/21/21 19:00 22 96/64 Mechanical Ventilator 50 01/21/21 18:45 85 17 97/64 (75) 97 01/21/21 18:30 80 6 102/67 (79) 95 01/21/21 18:15 79 10 104/69 (81) 96 01/21/21 18:00 22 104/69 Mechanical Ventilator 50 01/21/21 18:00 22 104/69 Mechanical Ventilator 50 01/21/21 18:00 81 0 98/64 (75) 96 01/21/21 17:45 78 7 108/73 (85) 99 01/21/21 17:30 80 8 96/65 (75) 97 01/21/21 17:15 81 10 95/61 (72) 98 01/21/21 17:00 22 95/61 Mechanical Ventilator 50 01/21/21 17:00 22 95/61 Mechanical Ventilator 50 01/21/21 17:00 81 6 97/66 (76) 97 01/21/21 16:45 82 18 97/68 (78) 96 01/21/21 16:30 77 22 96/68 (77) 97 01/21/21 16:15 82 22 86/56 (66) 97 01/21/21 16:00 99.8 86 22 81/54 (63) 96 01/21/21 16:00 86 01/21/21 16:00 Mechanical Ventilator 01/21/21 16:00 22 86/56 Mechanical Ventilator 50 01/21/21 16:00 22 86/56 Mechanical Ventilator 50 01/21/21 16:00 50 01/21/21 15:45 86 22 89/61 (70) 97 01/21/21 15:30 92 22 84/53 (63) 96 01/21/21 15:20 94 14 88/57 (67) 97 01/21/21 15:15 92 27 50 01/21/21 15:15 91 22 80/52 (61) 97 01/21/21 15:00 22 80/52 Mechanical Ventilator 50 01/21/21 15:00 22 80/52 Mechanical Ventilator 50 01/21/21 15:00 96 22 92/56 (68) 98 01/21/21 14:45 98 22 103/71 (82) 97 01/21/21 14:45 22 104/71 Mechanical Ventilator 50 01/21/21 14:30 99 22 104/71 (82) 97 01/21/21 14:15 102 22 103/72 (82) 98 01/21/21 14:00 22 104/75 Mechanical Ventilator 50 01/21/21 14:00 22 104/75 Mechanical Ventilator 50 01/21/21 14:00 102 22 104/75 (85) 98 01/21/21 13:45 105 22 109/78 (88) 98 01/21/21 13:30 107 19 113/74 (87) 98 01/21/21 13:15 108 18 119/84 (96) 98 01/21/21 13:00 110 15 122/84 (97) 98 01/21/21 13:00 19 119/84 Mechanical Ventilator 50 01/21/21 13:00 19 119/84 Mechanical Ventilator 50 01/21/21 12:45 112 34 128/80 (96) 96 01/21/21 12:34 112 22 50 01/21/21 12:30 112 22 140/82 (101) 94 01/21/21 12:15 110 23 137/88 (104) 94 01/21/21 12:00 22 137/88 Mechanical Ventilator 50 01/21/21 12:00 22 137/88 Mechanical Ventilator 50 01/21/21 12:00 Mechanical Ventilator 01/21/21 12:00 50 01/21/21 12:00 99.4 113 23 132/87 (102) 95 01/21/21 12:00 114 01/21/21 11:45 114 22 130/81 (97) 96 01/21/21 11:30 104 22 129/81 (97) 95 01/21/21 11:15 109 22 128/82 (97) 95 01/21/21 11:00 22 128/82 Mechanical Ventilator 50 01/21/21 11:00 22 128/82 Mechanical Ventilator 50 01/21/21 11:00 105 22 123/75 (91) 96 01/21/21 10:52 98 22 50 01/21/21 10:45 98 22 119/77 (91) 96 01/21/21 10:30 100 22 119/73 (88) 96 01/21/21 10:15 100 22 118/76 (90) 97 01/21/21 10:00 101 22 110/69 (83) 100 01/21/21 10:00 22 118/76 Mechanical Ventilator 50 01/21/21 10:00 22 118/76 Mechanical Ventilator 50 01/21/21 09:51 111 23 109/67 (81) 99 01/21/21 09:15 98 22 105/62 (76) 94 01/21/21 09:00 102 27 120/79 (93) 95 01/21/21 09:00 25 105/62 Mechanical Ventilator 50 01/21/21 09:00 25 105/62 50 01/21/21 08:45 95 12 116/71 (86) 93 01/21/21 08:30 99 21 113/69 (84) 94 01/21/21 08:30 22 126/58 Mechanical Ventilator 50 01/21/21 08:15 96 23 122/75 (91) 94 01/21/21 08:00 94 01/21/21 08:00 97.8 95 21 117/73 (88) 91 01/21/21 08:00 50 01/21/21 08:00 22 123/70 Mechanical Ventilator 50 01/21/21 08:00 22 122/75 Mechanical Ventilator 55 01/21/21 08:00 Mechanical Ventilator 01/21/21 07:59 94 22 50 01/21/21 07:00 20 118/50 Mechanical Ventilator 40 01/21/21 07:00 20 116/50 Mechanical Ventilator 40 01/21/21 07:00 97 25 122/73 (89) 92 01/21/21 06:00 20 135/68 Mechanical Ventilator 40 01/21/21 06:00 20 105/63 Mechanical Ventilator 40 01/21/21 06:00 102 25 117/70 (86) 92 01/21/21 05:45 104 25 112/68 (83) 90 01/21/21 05:30 105 28 124/75 (91) 93 01/21/21 05:15 102 21 114/69 (84) 91 01/21/21 05:00 20 122/61 Mechanical Ventilator 40 01/21/21 05:00 20 122/61 Mechanical Ventilator 40 01/21/21 05:00 90 23 105/62 (76) 92 01/21/21 04:45 92 25 103/61 (75) 92 01/21/21 04:30 85 23 141/59 (86) 92 01/21/21 04:15 86 22 102/63 (76) 92 01/21/21 04:00 85 01/21/21 04:00 20 103/62 Mechanical Ventilator 40 01/21/21 04:00 20 103/62 Mechanical Ventilator 40 01/21/21 04:00 Mechanical Ventilator 01/21/21 04:00 99.2 88 22 103/60 (74) 93 01/21/21 04:00 50 01/21/21 03:45 89 25 107/63 (78) 92 01/21/21 03:30 86 22 110/69 (83) 92 01/21/21 03:15 85 20 107/65 (79) 100 01/21/21 03:13 90 26 50 01/21/21 03:00 83 22 105/61 (76) 94 01/21/21 03:00 20 109/72 Mechanical Ventilator 40 01/21/21 03:00 20 109/72 Mechanical Ventilator 40 01/21/21 02:45 87 23 105/67 (80) 94 01/21/21 02:30 85 22 102/59 (73) 94 01/21/21 02:15 88 22 100/63 (75) 93 01/21/21 02:00 20 117/65 Mechanical Ventilator 40 01/21/21 02:00 20 117/65 Mechanical Ventilator 40 01/21/21 02:00 96 24 102/54 (70) 94 01/21/21 01:45 98 27 103/62 (76) 93 01/21/21 01:30 92 26 107/67 (80) 93 01/21/21 01:15 91 24 98/58 (71) 93 01/21/21 01:00 88 25 102/62 (75) 94 01/21/21 01:00 19 113/70 Mechanical Ventilator 40 01/21/21 01:00 19 113/70 Mechanical Ventilator 40 01/21/21 00:58 87 23 50 01/21/21 00:00 88 01/21/21 00:00 Mechanical Ventilator 01/21/21 00:00 98.0 90 24 104/62 (76) 93 01/21/21 00:00 20 98/65 Mechanical Ventilator 50 01/21/21 00:00 20 98/65 Mechanical Ventilator 50 01/21/21 00:00 50 01/20/21 23:45 93 25 99/59 (72) 93 01/20/21 23:30 93 28 110/67 (81) 92 Intake and Output 01/20/21 01/21/21 19:00 07:00 Intake Total 1497.0 ml 973 ml Output Total 2925 ml 360 ml Balance -1428.0 ml 613 ml Free Water 190 ml IV Total 587.0 ml 253 ml Tube Feeding 720 ml 720 ml Output Urine Total 2925 ml 360 ml Laboratory Tests 01/21/21 05:25: White Blood Count 8.1, Red Blood Count 4.28L, Hemoglobin 12.4L, Hematocrit 38.5L , Mean Corpuscular Volume 90, Mean Corpuscular Hemoglobin 28.9, Mean Corpuscular Hemoglobin Concent 32.1, Red Cell Distribution Width 14.7, Platelet Count 225, Mean Platelet Volume 10.0, Neutrophils (%) (Auto) 67.9, Lymphocytes (%) (Auto) 26.7, Monocytes (%) (Auto) 4.2, Eosinophils (%) (Auto) 0.5, Basophils (%) (Auto) 0.6, Prothrombin Time 20.7H, Prothromb Time International Ratio 2.0H, Sodium Level 144, Potassium Level 4.0, Chloride Level 108H, Carbon Dioxide Level 29, Anion Gap 7, Blood Urea Nitrogen 11, Creatinine 0.7, Estimat Glomerular Filtration Rate > 60, Glucose Level 249#H, Uric Acid 1.4L, Calcium Level 8.7, Phosphorus Level 2.4L, Magnesium Level 2.0, Total Bilirubin 0.3, Gamma Glutamyl Transpeptidase 101H, Aspartate Amino Transf (AST/SGOT) 19, Alanine Aminotransferase (ALT/SGPT) 21, Alkaline Phosphatase 57, C-Reactive Protein, Quantitative 11.3H, Pro-B-Type Natriuretic Peptide 326H, Total Protein 6.0L, Albumin 2.1L, Globulin 3.9, Albumin/Globulin Ratio 0.5L, Valproic Acid (Depakene) Level 36L 01/21/21 10:40: Arterial Blood pH 7.463H, Arterial Blood Partial Pressure CO2 37.3, Arterial Blood Partial Pressure O2 63.4L, Arterial Blood HCO3 26.1H, Arterial Blood Oxygen Saturation 91.9L, Arterial Blood Base Excess 2.4H, Miguelito Test Positive Current Medications Medications (Trade) Dose Ordered Sig/Johnny Route PRN Reason Start Time Stop Time Status Last Admin Dose Admin Acetaminophen (Tylenol) 650 mg Q6H PRN NG Temp >100.5 01/09/21 09:15 02/08/21 09:14 01/21/21 23:06 Acetaminophen (Tylenol) 650 mg Q6H PRN NG Mild Pain (Pain Scale 1-3) 01/09/21 09:15 02/08/21 09:14 Albuterol Sulfate (Proventil MDI) 2 puff Q6HRT INH 01/02/21 19:00 04/02/21 18:59 01/21/21 19:18 Benztropine Mesylate (Cogentin) 1 mg EVERY 12 HOURS NG 01/09/21 09:15 02/01/21 09:14 01/21/21 20:05 Chlorhexidine Gluconate (Myranda-Hex 2%) 1 applic DAILY@2000 TOPIC 01/12/21 20:00 04/12/21 19:59 01/21/21 20:04 Dextrose (Dextrose 50%) 25 ml Q30M PRN IV Hypoglycemia 01/06/21 23:45 04/06/21 23:44 Dextrose (Dextrose 50%) 50 ml Q30M PRN IV Hypoglycemia 01/06/21 23:45 04/06/21 23:44 Divalproex Sodium (Depakote Sprinkles) 500 mg Q12HR GT 01/13/21 21:00 02/12/21 20:59 01/21/21 20:05 Fentanyl Citrate 250 ml @ 0 mls/hr Q24H IV 01/20/21 03:00 01/22/21 02:59 01/21/21 14:45 Insulin Aspart (NovoLOG) EVERY 6 HOURS SUBQ 01/09/21 12:00 04/04/21 16:29 01/21/21 18:29 Ipratropium Stanley (Atrovent Inh) 1 puffs Q6HRT INH 01/02/21 19:00 02/01/21 18:59 01/21/21 19:18 Lansoprazole (Prevacid) 30 mg DAILY GT 01/16/21 09:00 02/15/21 08:59 01/21/21 09:00 Midazolam HCl 200 ml @ 0 mls/hr Q24H PRN IV Agitation (RASS -2) 01/17/21 00:00 01/24/21 00:00 01/21/21 08:30 Midodrine (Pro-Amatine) 10 mg Q8HR ORAL 01/20/21 14:00 04/20/21 13:59 01/21/21 20:05 Ondansetron HCl (Zofran) 4 mg Q4H PRN IVP Nausea & Vomiting 01/02/21 08:15 02/01/21 08:14 Potassium Chloride (K-Dur) 20 meq TWICE A DAY NG 01/20/21 13:00 04/20/21 12:59 01/21/21 18:29 Quetiapine Fumarate (SEROqueL) 100 mg Q12HR ORAL 01/20/21 15:00 03/06/21 14:59 01/21/21 20:05 Warfarin Sodium (Coumadin per pharmacy) 1 ea DAILY PRN MISC Per rx protocol 01/02/21 08:30 02/01/21 08:29 Assessment/Plan Assessment/Plan Pulmonary CCM Progress Note HPI Patient is a 60 man with prior h/o COPD, CPS/bipolar DO, 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 ID following and started on CTx/Azithro + REM + SM, CXR with bilateral infiltrates,ETT appropriate. 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, DM2, HTN and hydrocephalus Physical Exam Deferred Covid19 Vital Signs noted Laboratory Tests noted Imaging noted Height (Feet): 5 Height (Inches): 5.00 Weight (Pounds): 233 Medications Medications noted Assessment/Plan Problem List: (1) Pneumonia due to COVID-19 virus ICD Codes: U07.1 - COVID-19; J12.82 - Pneumonia due to coronavirus disease 2018 SNOMED: 986809422613962886 (2) Acute hypercapnic respiratory failure ICD Codes: J96.02 - Acute respiratory failure with hypercapnia SNOMED: 928164625 (3) Respiratory failure with hypoxia ICD Codes: J96.91 - Respiratory failure, unspecified with hypoxia SNOMED: 29754821607116515 Qualifiers: Qualified Codes: J96.01 - Acute respiratory failure with hypoxia (4) COPD (chronic obstructive pulmonary disease) ICD Codes: J44.9 - Chronic obstructive pulmonary disease, unspecified SNOMED: 82255906 (5) History of deep venous thrombosis or pulmonary embolus SNOMED: 199199393 (6) Obesity ICD Codes: E66.9 - Obesity, unspecified SNOMED: 034252875, 499079384 (7) Essential hypertension ICD Codes: I10 - Essential (primary) hypertension SNOMED: 33325629 (8) Diabetes mellitus type 2 in obese ICD Codes: E11.69 - Type 2 diabetes mellitus with other specified complication; E66.9 - Obesity, unspecified SNOMED: 68206000 (9) History of hydrocephalus ICD Codes: Z86.69 - Personal history of other diseases of the nervous system and sense organs SNOMED: 769643086 (10) Schizophrenia ICD Codes: F20.9 - Schizophrenia, unspecified SNOMED: 56687597 (11) Bipolar 1 disorder ICD Codes: F31.9 - Bipolar disorder, unspecified SNOMED: 381680943 (12) Anticoagulant long-term use 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
[2021-01-22] VITALS (47 sets, daily range): BP systolic 84–123; BP diastolic 46–79
[2021-01-22] MEDS: NovoLOG Insulin Flexpen SUBQ SCH ×4 (00:30→17:33)
[2021-01-22] MEDS: Ipratropium Bromide Inhaler INH SCH ×4 (00:54→19:16)
[2021-01-22] MEDS: Albuterol 90mcg Inhaler 8gm INH SCH ×4 (00:54→19:16)
[2021-01-22] MEDS: Versed 100mg/NS 200ml 200 ML IV PRN ×4 (03:02→18:33)
[2021-01-22 04:24] LABS: BASOPHILS % (AUTO) 0.6 % (0.0-2.0); EOSINOPHILS % (AUTO) 0.5 % (0.0-3.0); HEMATOCRIT 38.6 % (42.0-52.0); LYMPHOCYTES % (AUTO) 17.5 % (20.0-45.0); MEAN CORPUSCULAR VOLUME 91 FL (80-99); MONOCYTES % (AUTO) 3.8 % (1.0-10.0); NEUTROPHILS % (AUTO) 77.6 % (45.0-75.0); PLATELET COUNT 242 K/UL (150-450); RED BLOOD COUNT 4.23 M/UL (4.70-6.10); RED CELL DISTRIBUTION WIDTH 15.4 % (11.6-14.8); WHITE BLOOD COUNT 8.7 K/UL (4.8-10.8)
[2021-01-22] MEDS: fentaNYL 2500mcg/NS 250ml 250 ML IV SCH ×2 (04:30→16:43)
[2021-01-22 04:31] LABS: INR 2.1 (0.9-1.1)
[2021-01-22 04:43] LABS: ANION GAP 7 mmol/L (5-15); BLOOD UREA NITROGEN 13 mg/dL (7-18); CALCIUM 8.9 MG/DL (8.5-10.1); CARBON DIOXIDE 29 MMOL/L (21-32); CHLORIDE 110 MMOL/L (98-107); CREATININE 0.8 MG/DL (0.55-1.30); POTASSIUM 4.2 MMOL/L (3.5-5.1); SODIUM 146 MMOL/L (136-145)
[2021-01-22] MEDS: Midodrine 10mg tab ORAL SCH ×3 (05:55→21:25)
--- NOTE | 2021-01-22 08:48 | Infectious Diseases Prog Note ---
Assessment/Plan 60yo M with: Staph epi bacteremia, m/l skin contaminant 01/10 BCx 1/2 +Staph epi 01/13 BCx NTD COVID pna, severe Acute hypoxia 2/2 COVID pna >> intubated 01/06 Febrile to 103 Normal WBC Elevated AST 51 2/2 Tested positive for COVID at [facility] 01/02 COVID PCR positive 01/02 BCx NTD CXR: Multifocal pna MRSA nares neg 01/06 Intubated in ICU CXR: 1. Appropriately positioned endotracheal and enteric tubes. 2. Stable bilateral airspace disease. 01/07 Resp cx +Yasmine albicans (colonizer) 01/11 CXR: Interval improved bilateral lung aeration. Bibasilar infiltrates/atelectasis. Cr 1.1 HIV screen neg PMH: DM2 COPD HTN SNF resident Plan: Monitor off abx 01/22/21 steroids #19, on methylpred 20 IV q12 - defer course to Pulm/Primary, now tapering 01/19/21 SP Zosyn #10 01/14 SP vanco IV #1 01/09 SP CTX #7 01/07 SP azithro #5, RDV #5 This institution does not have access to convalescent plasma and only recommended to give in setting of clinical trial Monitor CBC/CMP Monitor temp curve, hemodynamics Monitor resp status D/w RN Thank you for this consult. [facility] will continue to follow. Subjective Allergies: Coded Allergies: No Known Allergies (Unverified , 01/02/21) Afebrile Remains on Vent 50% O2 No Leukocytosis Objective Last 24 Hour Vital Signs Date Time Temp Pulse Resp B/P (MAP) Pulse Ox O2 Delivery O2 Flow Rate FiO2 01/22/21 08:00 22 116/76 Mechanical Ventilator 50 01/22/21 08:00 22 116/76 Mechanical Ventilator 50 01/22/21 08:00 67 22 116/76 (89) 98 01/22/21 08:00 67 01/22/21 08:00 Mechanical Ventilator 01/22/21 08:00 50 01/22/21 06:45 68 22 113/74 (87) 97 01/22/21 06:30 69 22 113/74 (87) 97 01/22/21 06:15 69 22 112/74 (87) 97 01/22/21 06:00 71 22 109/72 (84) 97 01/22/21 06:00 22 113/74 Mechanical Ventilator 50 01/22/21 06:00 22 112/74 Mechanical Ventilator 50 01/22/21 05:45 71 22 109/71 (84) 97 01/22/21 05:30 71 22 111/70 (84) 97 01/22/21 05:15 70 22 110/71 (84) 97 01/22/21 05:00 72 22 105/69 (81) 97 01/22/21 05:00 22 105/64 Mechanical Ventilator 50 01/22/21 05:00 22 105/64 Mechanical Ventilator 50 01/22/21 04:45 73 22 105/69 (81) 97 01/22/21 04:30 73 22 103/68 (80) 97 01/22/21 04:30 22 98/64 Mechanical Ventilator 50 01/22/21 04:30 22 109/71 Mechanical Ventilator 50 01/22/21 04:15 74 22 104/66 (79) 97 01/22/21 04:00 Mechanical Ventilator 01/22/21 04:00 99.5 74 22 103/67 (79) 97 01/22/21 04:00 22 98/66 Mechanical Ventilator 50 01/22/21 04:00 22 98/66 Mechanical Ventilator 50 01/22/21 04:00 73 01/22/21 04:00 50 01/22/21 03:45 74 22 104/65 (78) 97 01/22/21 03:30 74 22 102/68 (79) 97 01/22/21 03:15 76 22 102/67 (79) 98 01/22/21 03:05 82 22 50 01/22/21 03:02 22 98/64 Mechanical Ventilator 50 01/22/21 03:02 22 102/66 Mechanical Ventilator 50 01/22/21 03:00 75 22 102/66 (78) 98 01/22/21 02:45 76 22 102/64 (77) 98 01/22/21 02:30 76 22 101/61 (74) 97 01/22/21 02:15 77 22 100/64 (76) 98 01/22/21 02:00 99.9 79 22 97/57 (70) 98 01/22/21 02:00 22 104/65 Mechanical Ventilator 50 01/22/21 02:00 22 104/65 Mechanical Ventilator 50 01/22/21 01:45 78 22 100/60 (73) 98 01/22/21 01:30 78 22 97/58 (71) 98 01/22/21 01:15 79 22 93/57 (69) 98 01/22/21 01:00 22 90/47 Mechanical Ventilator 50 01/22/21 01:00 22 93/57 Mechanical Ventilator 50 01/22/21 01:00 81 22 89/53 (65) 98 01/22/21 00:45 83 22 91/48 (62) 97 01/22/21 00:30 90 22 84/47 (59) 97 01/22/21 00:28 99.5 01/22/21 00:21 99.7 100 18 90/47 (61) 01/22/21 00:00 79 22 99/56 (70) 96 01/22/21 00:00 50 01/22/21 00:00 22 90/47 Mechanical Ventilator 50 01/22/21 00:00 22 90/47 Mechanical Ventilator 50 01/22/21 00:00 98 01/22/21 00:00 Mechanical Ventilator 01/21/21 23:45 82 22 95/53 (67) 96 01/21/21 23:30 82 22 96/55 (69) 96 01/21/21 23:25 88 22 50 01/21/21 23:15 80 21 104/66 (79) 96 01/21/21 23:00 22 104/66 Mechanical Ventilator 50 01/21/21 23:00 22 104/66 Mechanical Ventilator 50 01/21/21 23:00 78 22 93/58 (70) 96 01/21/21 22:45 77 22 94/60 (71) 96 01/21/21 22:30 78 22 93/57 (69) 96 01/21/21 22:15 78 22 92/59 (70) 96 01/21/21 22:00 22 92/59 Mechanical Ventilator 50 01/21/21 22:00 22 92/59 Mechanical Ventilator 50 01/21/21 22:00 79 22 92/58 (69) 96 01/21/21 21:45 80 22 92/54 (67) 96 01/21/21 21:30 100.4 83 22 88/53 (65) 96 01/21/21 21:15 86 22 91/56 (68) 96 01/21/21 21:00 84 22 93/55 (68) 97 01/21/21 21:00 22 91/56 Mechanical Ventilator 50 01/21/21 21:00 22 91/56 Mechanical Ventilator 50 01/21/21 20:45 88 22 95/57 (70) 97 01/21/21 20:30 89 24 98/59 (72) 95 01/21/21 20:15 80 22 89/58 (68) 97 01/21/21 20:00 99.9 82 22 89/58 (68) 96 01/21/21 20:00 Mechanical Ventilator 01/21/21 20:00 83 01/21/21 20:00 50 01/21/21 20:00 22 89/58 Mechanical Ventilator 50 01/21/21 20:00 22 89/58 Mechanical Ventilator 50 01/21/21 19:45 83 22 91/58 (69) 97 01/21/21 19:30 86 22 93/57 (69) 97 01/21/21 19:18 85 22 50 01/21/21 19:15 85 22 90/53 (65) 97 01/21/21 19:00 83 22 96/64 (75) 97 01/21/21 19:00 22 96/64 Mechanical Ventilator 50 01/21/21 19:00 22 96/64 Mechanical Ventilator 50 01/21/21 18:45 85 17 97/64 (75) 97 01/21/21 18:30 80 6 102/67 (79) 95 01/21/21 18:15 79 10 104/69 (81) 96 01/21/21 18:00 22 104/69 Mechanical Ventilator 50 01/21/21 18:00 22 104/69 Mechanical Ventilator 50 01/21/21 18:00 81 0 98/64 (75) 96 01/21/21 17:45 78 7 108/73 (85) 99 01/21/21 17:30 80 8 96/65 (75) 97 01/21/21 17:15 81 10 95/61 (72) 98 01/21/21 17:00 22 95/61 Mechanical Ventilator 50 01/21/21 17:00 22 95/61 Mechanical Ventilator 50 01/21/21 17:00 81 6 97/66 (76) 97 01/21/21 16:45 82 18 97/68 (78) 96 01/21/21 16:30 77 22 96/68 (77) 97 01/21/21 16:15 82 22 86/56 (66) 97 01/21/21 16:00 99.8 86 22 81/54 (63) 96 01/21/21 16:00 86 01/21/21 16:00 Mechanical Ventilator 01/21/21 16:00 22 86/56 Mechanical Ventilator 50 01/21/21 16:00 22 86/56 Mechanical Ventilator 50 01/21/21 16:00 50 01/21/21 15:45 86 22 89/61 (70) 97 01/21/21 15:30 92 22 84/53 (63) 96 01/21/21 15:20 94 14 88/57 (67) 97 01/21/21 15:15 92 27 50 01/21/21 15:15 91 22 80/52 (61) 97 01/21/21 15:00 22 80/52 Mechanical Ventilator 50 01/21/21 15:00 22 80/52 Mechanical Ventilator 50 01/21/21 15:00 96 22 92/56 (68) 98 01/21/21 14:45 98 22 103/71 (82) 97 01/21/21 14:45 22 104/71 Mechanical Ventilator 50 01/21/21 14:30 99 22 104/71 (82) 97 01/21/21 14:15 102 22 103/72 (82) 98 01/21/21 14:00 22 104/75 Mechanical Ventilator 50 01/21/21 14:00 22 104/75 Mechanical Ventilator 50 01/21/21 14:00 102 22 104/75 (85) 98 01/21/21 13:45 105 22 109/78 (88) 98 01/21/21 13:30 107 19 113/74 (87) 98 01/21/21 13:15 108 18 119/84 (96) 98 01/21/21 13:00 110 15 122/84 (97) 98 01/21/21 13:00 19 119/84 Mechanical Ventilator 50 01/21/21 13:00 19 119/84 Mechanical Ventilator 50 01/21/21 12:45 112 34 128/80 (96) 96 01/21/21 12:34 112 22 50 01/21/21 12:30 112 22 140/82 (101) 94 01/21/21 12:15 110 23 137/88 (104) 94 01/21/21 12:00 22 137/88 Mechanical Ventilator 50 01/21/21 12:00 22 137/88 Mechanical Ventilator 50 01/21/21 12:00 Mechanical Ventilator 01/21/21 12:00 50 01/21/21 12:00 99.4 113 23 132/87 (102) 95 01/21/21 12:00 114 01/21/21 11:45 114 22 130/81 (97) 96 01/21/21 11:30 104 22 129/81 (97) 95 01/21/21 11:15 109 22 128/82 (97) 95 01/21/21 11:00 22 128/82 Mechanical Ventilator 50 01/21/21 11:00 22 128/82 Mechanical Ventilator 50 01/21/21 11:00 105 22 123/75 (91) 96 01/21/21 10:52 98 22 50 01/21/21 10:45 98 22 119/77 (91) 96 01/21/21 10:30 100 22 119/73 (88) 96 01/21/21 10:15 100 22 118/76 (90) 97 01/21/21 10:00 101 22 110/69 (83) 100 01/21/21 10:00 22 118/76 Mechanical Ventilator 50 01/21/21 10:00 22 118/76 Mechanical Ventilator 50 01/21/21 09:51 111 23 109/67 (81) 99 01/21/21 09:15 98 22 105/62 (76) 94 01/21/21 09:00 102 27 120/79 (93) 95 01/21/21 09:00 25 105/62 Mechanical Ventilator 50 01/21/21 09:00 25 105/62 50 Height (Feet): 5 Height (Inches): 5.00 Weight (Pounds): 233 Gen: NAD on Vent 50% O2 HEENT: NCAT, ETT CV: RRR Pulm: BL chest rise, RRR Ext: No c/c/e Skin: No visible rashes Neuro: Sedated Laboratory Tests Test 01/21/21 10:40 01/22/21 02:45 Arterial Blood pH 7.463 (7.350-7.450) Arterial Blood Partial Pressure CO2 37.3 mmHg (35.0-45.0) Arterial Blood Partial Pressure O2 63.4 mmHg (75.0-100.0) L Arterial Blood HCO3 26.1 mmol/L (22.0-26.0) H Arterial Blood Oxygen Saturation 91.9 % (95-100) L Arterial Blood Base Excess 2.4 (-2-2) H Miguelito Test Positive White Blood Count 8.7 K/UL (4.8-10.8) Red Blood Count 4.23 M/UL (4.70-6.10) L Hemoglobin 12.0 G/DL (14.2-18.0) L Hematocrit 38.6 % (42.0-52.0) L Mean Corpuscular Volume 91 FL (80-99) Mean Corpuscular Hemoglobin 28.4 PG (27.0-31.0) Mean Corpuscular Hemoglobin Concent 31.2 G/DL (32.0-36.0) L Red Cell Distribution Width 15.4 % (11.6-14.8) H Platelet Count 242 K/UL (150-450) Mean Platelet Volume 9.8 FL (6.5-10.1) Neutrophils (%) (Auto) 77.6 % (45.0-75.0) H Lymphocytes (%) (Auto) 17.5 % (20.0-45.0) L Monocytes (%) (Auto) 3.8 % (1.0-10.0) Eosinophils (%) (Auto) 0.5 % (0.0-3.0) Basophils (%) (Auto) 0.6 % (0.0-2.0) Prothrombin Time 21.7 SEC (9.30-11.50) H Prothromb Time International Ratio 2.1 (0.9-1.1) H Sodium Level 146 MMOL/L (136-145) H Potassium Level 4.2 MMOL/L (3.5-5.1) Chloride Level 110 MMOL/L (98-107) H Carbon Dioxide Level 29 MMOL/L (21-32) Anion Gap 7 mmol/L (5-15) Blood Urea Nitrogen 13 mg/dL (7-18) Creatinine 0.8 MG/DL (0.55-1.30) Estimat Glomerular Filtration Rate > 60 mL/min (>60) Glucose Level 231 MG/DL (74-106) H Calcium Level 8.9 MG/DL (8.5-10.1) Current Medications Medications (Trade) Dose Ordered Sig/Johnny Route PRN Reason Start Time Stop Time Status Last Admin Dose Admin Acetaminophen (Tylenol) 650 mg Q6H PRN NG Temp >100.5 01/09/21 09:15 02/08/21 09:14 01/21/21 23:06 Acetaminophen (Tylenol) 650 mg Q6H PRN NG Mild Pain (Pain Scale 1-3) 01/09/21 09:15 02/08/21 09:14 Albuterol Sulfate (Proventil MDI) 2 puff Q6HRT INH 01/02/21 19:00 04/02/21 18:59 01/22/21 08:27 Benztropine Mesylate (Cogentin) 1 mg EVERY 12 HOURS NG 01/09/21 09:15 02/01/21 09:14 01/21/21 20:05 Chlorhexidine Gluconate (Myranda-Hex 2%) 1 applic DAILY@2000 TOPIC 01/12/21 20:00 04/12/21 19:59 01/21/21 20:04 Dextrose (Dextrose 50%) 25 ml Q30M PRN IV Hypoglycemia 01/06/21 23:45 04/06/21 23:44 Dextrose (Dextrose 50%) 50 ml Q30M PRN IV Hypoglycemia 01/06/21 23:45 04/06/21 23:44 Divalproex Sodium (Depakote Sprinkles) 500 mg Q12HR GT 01/13/21 21:00 02/12/21 20:59 01/21/21 20:05 Fentanyl Citrate 250 ml @ 1 mls/hr Q24H IV 01/22/21 05:30 01/24/21 05:29 01/22/21 04:30 Insulin Aspart (NovoLOG) EVERY 6 HOURS SUBQ 01/09/21 12:00 04/04/21 16:29 01/22/21 05:56 Ipratropium Kelly (Atrovent Inh) 1 puffs Q6HRT INH 01/02/21 19:00 02/01/21 18:59 01/22/21 08:26 Lansoprazole (Prevacid) 30 mg DAILY GT 01/16/21 09:00 02/15/21 08:59 01/21/21 09:00 Midazolam HCl 200 ml @ 0 mls/hr Q24H PRN IV Agitation (RASS -2) 01/17/21 00:00 01/24/21 00:00 01/22/21 03:02 Midodrine (Pro-Amatine) 10 mg Q8HR ORAL 01/20/21 14:00 04/20/21 13:59 01/22/21 05:55 Ondansetron HCl (Zofran) 4 mg Q4H PRN IVP Nausea & Vomiting 01/02/21 08:15 02/01/21 08:14 Potassium Chloride (K-Dur) 20 meq TWICE A DAY NG 01/20/21 13:00 04/20/21 12:59 01/21/21 18:29 Quetiapine Fumarate (SEROqueL) 100 mg Q12HR ORAL 01/20/21 15:00 03/06/21 14:59 01/21/21 20:05 Warfarin Sodium (Coumadin per pharmacy) 1 ea DAILY PRN MISC Per rx protocol 01/02/21 08:30 02/01/21 08:29 Warfarin Sodium (Coumadin) 4 mg COUMADIN ORAL 01/22/21 17:00 01/22/21 17:01 Anuel Crespo MD Jan 22, 2021 08:48
[2021-01-22] MEDS: Depakote 125mg Sprinkles GT SCH (09:15)
[2021-01-22] MEDS: Benztropine 1mg tab NG SCH ×2 (09:16→20:36)
[2021-01-22] MEDS: Lansoprazole 15mg cap GT SCH (09:55)
--- NOTE | 2021-01-22 10:16 | Nephrology Progress Note ---
Assessment/Plan Problem List: (1) Hyperkalemia (2) Pneumonia due to COVID-19 virus (3) Respiratory failure with hypoxia (4) Obesity (5) Schizophrenia (6) DMII (diabetes mellitus, type 2) Assessment Hyperkalemia Stable renal parameters Hyperglycemia Covid pneumonia due to COVID-19 virus Acute respiratory failure with hypoxia requiring mechanical ventilation History of COPD History of DVT, pulmonary emboli Obese Hypertension History of diabetes Psych condition, schizophrenia, bipolar disease Plan January 22: FiO2 50%. Prone position. Labs reviewed. Stable from renal standpoint of view. Continue per consultants. January 21: Full code. Intubated on ventilator. FiO2 40%. Labs reviewed. Renal parameters stable. Continue per consultants. January 20: Status unchanged. Full code. On ventilator. Chest x-ray reviewed. IV fluid discontinued. Potassium supplement given. 1 dose of Lasix given. Albumin bolus given. Midodrine started. Will monitor renal parameters and electrolytes. Discussed with JOHAN Mohamud. January 19: Labs reviewed. Renal parameters stable. Remains full code intubated on ventilator. FiO2 50%. Continue per consultants. January 18: Full code. Intubated. On ventilator. FiO2 down to 35%. No labs drawn today. Continue to monitor renal parameters and electrolytes. January 17: Full code. Intubated on ventilator. FiO2 remains at 60%. Labs reviewed. Renal parameters stable. January 16: Full code. Intubated. Labs reviewed. Renal parameters stable. FiO2 60%. Continue per consultants. January 15: Patient remains intubated and full code. Labs reviewed. Stable renal parameters. January 14: Patient full code. Intubated on ventilator. On prone position until 5 PM. Labs reviewed. Stable from renal standpoint of view. January 13: Labs reviewed. Renal parameters stable. Continue per consultants. Patient remain full code and intubated on ventilator. January 12: Labs reviewed. Renal parameters stable. Patient remains full code. Remains intubated on ventilator and on prone position. Continue per consultants. January 11: Labs reviewed. Renal parameters stable. Continue per consultants. January 10: Labs reviewed. Renal parameters stable. Continue per consultants. Change IV to half-normal saline Kayexalate via NG tube for high potassium Monitor electrolytes and renal parameters Per orders, per consultants Subjective ROS Limited/Unobtainable: Yes Objective Objective Last 24 Hour Vital Signs Date Time Temp Pulse Resp B/P (MAP) Pulse Ox O2 Delivery O2 Flow Rate FiO2 01/22/21 10:00 70 22 114/75 (88) 97 01/22/21 09:18 22 123/79 Mechanical Ventilator 50 01/22/21 09:00 99.0 67 22 123/79 (94) 98 01/22/21 09:00 22 123/79 Mechanical Ventilator 50 01/22/21 09:00 22 123/79 Mechanical Ventilator 50 01/22/21 08:00 22 116/76 Mechanical Ventilator 50 01/22/21 08:00 22 116/76 Mechanical Ventilator 50 01/22/21 08:00 67 22 116/76 (89) 98 01/22/21 08:00 67 01/22/21 08:00 Mechanical Ventilator 01/22/21 08:00 50 01/22/21 06:45 68 22 113/74 (87) 97 01/22/21 06:30 69 22 113/74 (87) 97 01/22/21 06:15 69 22 112/74 (87) 97 01/22/21 06:00 71 22 109/72 (84) 97 01/22/21 06:00 22 113/74 Mechanical Ventilator 50 01/22/21 06:00 22 112/74 Mechanical Ventilator 50 01/22/21 05:45 71 22 109/71 (84) 97 01/22/21 05:30 71 22 111/70 (84) 97 01/22/21 05:15 70 22 110/71 (84) 97 01/22/21 05:00 72 22 105/69 (81) 97 01/22/21 05:00 22 105/64 Mechanical Ventilator 50 01/22/21 05:00 22 105/64 Mechanical Ventilator 50 01/22/21 04:45 73 22 105/69 (81) 97 01/22/21 04:30 73 22 103/68 (80) 97 01/22/21 04:30 22 98/64 Mechanical Ventilator 50 01/22/21 04:30 22 109/71 Mechanical Ventilator 50 01/22/21 04:15 74 22 104/66 (79) 97 01/22/21 04:00 Mechanical Ventilator 01/22/21 04:00 99.5 74 22 103/67 (79) 97 01/22/21 04:00 22 98/66 Mechanical Ventilator 50 01/22/21 04:00 22 98/66 Mechanical Ventilator 50 01/22/21 04:00 73 01/22/21 04:00 50 01/22/21 03:45 74 22 104/65 (78) 97 01/22/21 03:30 74 22 102/68 (79) 97 01/22/21 03:15 76 22 102/67 (79) 98 01/22/21 03:05 82 22 50 01/22/21 03:02 22 98/64 Mechanical Ventilator 50 01/22/21 03:02 22 102/66 Mechanical Ventilator 50 01/22/21 03:00 75 22 102/66 (78) 98 01/22/21 02:45 76 22 102/64 (77) 98 01/22/21 02:30 76 22 101/61 (74) 97 01/22/21 02:15 77 22 100/64 (76) 98 01/22/21 02:00 99.9 79 22 97/57 (70) 98 01/22/21 02:00 22 104/65 Mechanical Ventilator 50 01/22/21 02:00 22 104/65 Mechanical Ventilator 50 01/22/21 01:45 78 22 100/60 (73) 98 01/22/21 01:30 78 22 97/58 (71) 98 01/22/21 01:15 79 22 93/57 (69) 98 01/22/21 01:00 22 90/47 Mechanical Ventilator 50 01/22/21 01:00 22 93/57 Mechanical Ventilator 50 01/22/21 01:00 81 22 89/53 (65) 98 01/22/21 00:45 83 22 91/48 (62) 97 01/22/21 00:30 90 22 84/47 (59) 97 01/22/21 00:28 99.5 01/22/21 00:21 99.7 100 18 90/47 (61) 01/22/21 00:00 79 22 99/56 (70) 96 01/22/21 00:00 50 01/22/21 00:00 22 90/47 Mechanical Ventilator 50 01/22/21 00:00 22 90/47 Mechanical Ventilator 50 01/22/21 00:00 98 01/22/21 00:00 Mechanical Ventilator 01/21/21 23:45 82 22 95/53 (67) 96 01/21/21 23:30 82 22 96/55 (69) 96 01/21/21 23:25 88 22 50 01/21/21 23:15 80 21 104/66 (79) 96 01/21/21 23:00 22 104/66 Mechanical Ventilator 50 01/21/21 23:00 22 104/66 Mechanical Ventilator 50 01/21/21 23:00 78 22 93/58 (70) 96 01/21/21 22:45 77 22 94/60 (71) 96 01/21/21 22:30 78 22 93/57 (69) 96 01/21/21 22:15 78 22 92/59 (70) 96 01/21/21 22:00 22 92/59 Mechanical Ventilator 50 01/21/21 22:00 22 92/59 Mechanical Ventilator 50 01/21/21 22:00 79 22 92/58 (69) 96 01/21/21 21:45 80 22 92/54 (67) 96 01/21/21 21:30 100.4 83 22 88/53 (65) 96 01/21/21 21:15 86 22 91/56 (68) 96 01/21/21 21:00 84 22 93/55 (68) 97 01/21/21 21:00 22 91/56 Mechanical Ventilator 50 01/21/21 21:00 22 91/56 Mechanical Ventilator 50 01/21/21 20:45 88 22 95/57 (70) 97 01/21/21 20:30 89 24 98/59 (72) 95 01/21/21 20:15 80 22 89/58 (68) 97 01/21/21 20:00 99.9 82 22 89/58 (68) 96 01/21/21 20:00 Mechanical Ventilator 01/21/21 20:00 83 01/21/21 20:00 50 01/21/21 20:00 22 89/58 Mechanical Ventilator 50 01/21/21 20:00 22 89/58 Mechanical Ventilator 50 01/21/21 19:45 83 22 91/58 (69) 97 01/21/21 19:30 86 22 93/57 (69) 97 01/21/21 19:18 85 22 50 01/21/21 19:15 85 22 90/53 (65) 97 01/21/21 19:00 83 22 96/64 (75) 97 01/21/21 19:00 22 96/64 Mechanical Ventilator 50 01/21/21 19:00 22 96/64 Mechanical Ventilator 50 01/21/21 18:45 85 17 97/64 (75) 97 01/21/21 18:30 80 6 102/67 (79) 95 01/21/21 18:15 79 10 104/69 (81) 96 01/21/21 18:00 22 104/69 Mechanical Ventilator 50 01/21/21 18:00 22 104/69 Mechanical Ventilator 50 01/21/21 18:00 81 0 98/64 (75) 96 01/21/21 17:45 78 7 108/73 (85) 99 01/21/21 17:30 80 8 96/65 (75) 97 01/21/21 17:15 81 10 95/61 (72) 98 01/21/21 17:00 22 95/61 Mechanical Ventilator 50 01/21/21 17:00 22 95/61 Mechanical Ventilator 50 01/21/21 17:00 81 6 97/66 (76) 97 01/21/21 16:45 82 18 97/68 (78) 96 01/21/21 16:30 77 22 96/68 (77) 97 01/21/21 16:15 82 22 86/56 (66) 97 01/21/21 16:00 99.8 86 22 81/54 (63) 96 01/21/21 16:00 86 01/21/21 16:00 Mechanical Ventilator 01/21/21 16:00 22 86/56 Mechanical Ventilator 50 01/21/21 16:00 22 86/56 Mechanical Ventilator 50 01/21/21 16:00 50 01/21/21 15:45 86 22 89/61 (70) 97 01/21/21 15:30 92 22 84/53 (63) 96 01/21/21 15:20 94 14 88/57 (67) 97 01/21/21 15:15 92 27 50 01/21/21 15:15 91 22 80/52 (61) 97 01/21/21 15:00 22 80/52 Mechanical Ventilator 50 01/21/21 15:00 22 80/52 Mechanical Ventilator 50 01/21/21 15:00 96 22 92/56 (68) 98 01/21/21 14:45 98 22 103/71 (82) 97 01/21/21 14:45 22 104/71 Mechanical Ventilator 50 01/21/21 14:30 99 22 104/71 (82) 97 01/21/21 14:15 102 22 103/72 (82) 98 01/21/21 14:00 22 104/75 Mechanical Ventilator 50 01/21/21 14:00 22 104/75 Mechanical Ventilator 50 01/21/21 14:00 102 22 104/75 (85) 98 01/21/21 13:45 105 22 109/78 (88) 98 01/21/21 13:30 107 19 113/74 (87) 98 01/21/21 13:15 108 18 119/84 (96) 98 01/21/21 13:00 110 15 122/84 (97) 98 01/21/21 13:00 19 119/84 Mechanical Ventilator 50 01/21/21 13:00 19 119/84 Mechanical Ventilator 50 01/21/21 12:45 112 34 128/80 (96) 96 01/21/21 12:34 112 22 50 01/21/21 12:30 112 22 140/82 (101) 94 01/21/21 12:15 110 23 137/88 (104) 94 01/21/21 12:00 22 137/88 Mechanical Ventilator 50 01/21/21 12:00 22 137/88 Mechanical Ventilator 50 01/21/21 12:00 Mechanical Ventilator 01/21/21 12:00 50 01/21/21 12:00 99.4 113 23 132/87 (102) 95 01/21/21 12:00 114 01/21/21 11:45 114 22 130/81 (97) 96 01/21/21 11:30 104 22 129/81 (97) 95 01/21/21 11:15 109 22 128/82 (97) 95 01/21/21 11:00 22 128/82 Mechanical Ventilator 50 01/21/21 11:00 22 128/82 Mechanical Ventilator 50 01/21/21 11:00 105 22 123/75 (91) 96 01/21/21 10:52 98 22 50 01/21/21 10:45 98 22 119/77 (91) 96 01/21/21 10:30 100 22 119/73 (88) 96 01/21/21 10:15 100 22 118/76 (90) 97 Intake and Output 01/21/21 01/22/21 19:00 07:00 Intake Total 1240 ml 1090 ml Output Total 3685 ml 1145 ml Balance -2445 ml -55 ml Free Water 280 ml 250 ml IV Total 240 ml 600 ml Tube Feeding 720 ml 240 ml Output Urine Total 3685 ml 1145 ml # Bowel Movements 4 Current Medications Medications (Trade) Dose Ordered Sig/Johnny Route PRN Reason Start Time Stop Time Status Last Admin Dose Admin Acetaminophen (Tylenol) 650 mg Q6H PRN NG Temp >100.5 01/09/21 09:15 02/08/21 09:14 01/21/21 23:06 Acetaminophen (Tylenol) 650 mg Q6H PRN NG Mild Pain (Pain Scale 1-3) 01/09/21 09:15 02/08/21 09:14 Albuterol Sulfate (Proventil MDI) 2 puff Q6HRT INH 01/02/21 19:00 04/02/21 18:59 01/22/21 08:27 Benztropine Mesylate (Cogentin) 1 mg EVERY 12 HOURS NG 01/09/21 09:15 02/01/21 09:14 01/22/21 09:16 Chlorhexidine Gluconate (Myranda-Hex 2%) 1 applic DAILY@2000 TOPIC 01/12/21 20:00 04/12/21 19:59 01/21/21 20:04 Dextrose (Dextrose 50%) 25 ml Q30M PRN IV Hypoglycemia 01/06/21 23:45 04/06/21 23:44 Dextrose (Dextrose 50%) 50 ml Q30M PRN IV Hypoglycemia 01/06/21 23:45 04/06/21 23:44 Fentanyl Citrate 250 ml @ 1 mls/hr Q24H IV 01/22/21 05:30 01/24/21 05:29 01/22/21 04:30 Insulin Aspart (NovoLOG) EVERY 6 HOURS SUBQ 01/09/21 12:00 04/04/21 16:29 01/22/21 05:56 Ipratropium [place] (Atrovent Inh) 1 puffs Q6HRT INH 01/02/21 19:00 02/01/21 18:59 01/22/21 08:26 Lansoprazole (Prevacid) 30 mg DAILY GT 01/16/21 09:00 02/15/21 08:59 01/22/21 09:55 Midazolam HCl 200 ml @ 0 mls/hr Q24H PRN IV Agitation (RASS -2) 01/17/21 00:00 01/24/21 00:00 01/22/21 09:18 Midodrine (Pro-Amatine) 10 mg Q8HR ORAL 01/20/21 14:00 04/20/21 13:59 01/22/21 05:55 Ondansetron HCl (Zofran) 4 mg Q4H PRN IVP Nausea & Vomiting 01/02/21 08:15 02/01/21 08:14 Potassium Chloride (K-Dur) 20 meq TWICE A DAY NG 01/20/21 13:00 04/20/21 12:59 01/22/21 09:15 Quetiapine Fumarate (SEROqueL) 100 mg Q12HR ORAL 01/20/21 15:00 03/06/21 14:59 01/22/21 09:15 Valproic Acid (Depakene) 500 mg Q12HR GT 01/22/21 21:00 02/21/21 20:59 Warfarin Sodium (Coumadin per pharmacy) 1 ea DAILY PRN MISC Per rx protocol 01/02/21 08:30 02/01/21 08:29 Warfarin Sodium (Coumadin) 4 mg COUMADIN ORAL 01/22/21 17:00 01/22/21 17:01 Laboratory Tests 01/21/21 10:40: Arterial Blood pH 7.463H, Arterial Blood Partial Pressure CO2 37.3, Arterial Blood Partial Pressure O2 63.4L, Arterial Blood HCO3 26.1H, Arterial Blood Oxygen Saturation 91.9L, Arterial Blood Base Excess 2.4H, Miguelito Test Positive 01/22/21 02:45: White Blood Count 8.7, Red Blood Count 4.23L, Hemoglobin 12.0L, Hematocrit 38.6L , Mean Corpuscular Volume 91, Mean Corpuscular Hemoglobin 28.4, Mean Corpuscular Hemoglobin Concent 31.2L, Red Cell Distribution Width 15.4H, Platelet Count 242, Mean Platelet Volume 9.8, Neutrophils (%) (Auto) 77.6H, Lymphocytes (%) (Auto) 17.5L, Monocytes (%) (Auto) 3.8, Eosinophils (%) (Auto) 0.5, Basophils (%) (Auto) 0.6, Prothrombin Time 21.7H, Prothromb Time International Ratio 2.1H, Sodium Level 146H, Potassium Level 4.2, Chloride Level 110H, Carbon Dioxide Level 29, Anion Gap 7, Blood Urea Nitrogen 13, Creatinine 0.8, Estimat Glomerular Filtration Rate > 60, Glucose Level 231H, Calcium Level 8.9 Height (Feet): 5 Height (Inches): 5.00 Weight (Pounds): 233 General Appearance: no apparent distress, other - Prone position EENT: other - Intubated on ventilator Cardiovascular: normal rate Respiratory/Chest: decreased breath sounds Avi Frye MD Jan 22, 2021 10:16
[2021-01-22] MEDS ORDERED: Warfarin Sodium 4mg ORAL SCH (17:00)
[2021-01-22] MEDS: Acetaminophen 650mg/20.3ml NG PRN ×2 (17:44→23:28)
--- NOTE | 2021-01-22 17:52 | Internal Med Progress Note ---
Subjective Date of Service: Jan 22, 2021 Physician Name Brown,Vickey Attending Physician Geovanny Bradley MD Current Medications Medications (Trade) Dose Ordered Sig/Johnny Route PRN Reason Start Time Stop Time Status Last Admin Dose Admin Acetaminophen (Tylenol) 650 mg Q6H PRN NG Temp >100.5 01/09/21 09:15 02/08/21 09:14 01/22/21 17:44 Acetaminophen (Tylenol) 650 mg Q6H PRN NG Mild Pain (Pain Scale 1-3) 01/09/21 09:15 02/08/21 09:14 Albuterol Sulfate (Proventil I) 2 puff Q6HRT INH 01/02/21 19:00 04/02/21 18:59 01/22/21 12:13 Benztropine Mesylate (Cogentin) 1 mg EVERY 12 HOURS NG 01/09/21 09:15 02/01/21 09:14 01/22/21 09:16 Chlorhexidine Gluconate (Myranda-Hex 2%) 1 applic DAILY@2000 TOPIC 01/12/21 20:00 04/12/21 19:59 01/21/21 20:04 Dextrose (Dextrose 50%) 25 ml Q30M PRN IV Hypoglycemia 01/06/21 23:45 04/06/21 23:44 Dextrose (Dextrose 50%) 50 ml Q30M PRN IV Hypoglycemia 01/06/21 23:45 04/06/21 23:44 Fentanyl Citrate 250 ml @ 1 mls/hr Q24H IV 01/22/21 05:30 01/24/21 05:29 01/22/21 16:43 Insulin Aspart (NovoLOG) EVERY 6 HOURS SUBQ 01/09/21 12:00 04/04/21 16:29 01/22/21 17:33 Ipratropium [place] (Atrovent Inh) 1 puffs Q6HRT INH 01/02/21 19:00 02/01/21 18:59 01/22/21 12:13 Lansoprazole (Prevacid) 30 mg DAILY GT 01/16/21 09:00 02/15/21 08:59 01/22/21 09:55 Midazolam HCl 200 ml @ 0 mls/hr Q24H PRN IV Agitation (RASS -2) 01/17/21 00:00 01/24/21 00:00 01/22/21 09:18 Midodrine (Pro-Amatine) 10 mg Q8HR ORAL 01/20/21 14:00 04/20/21 13:59 01/22/21 15:13 Ondansetron HCl (Zofran) 4 mg Q4H PRN IVP Nausea & Vomiting 01/02/21 08:15 02/01/21 08:14 Potassium Chloride (K-Dur) 20 meq TWICE A DAY NG 01/20/21 13:00 04/20/21 12:59 01/22/21 17:32 Quetiapine Fumarate (SEROqueL) 100 mg Q12HR ORAL 01/20/21 15:00 03/06/21 14:59 01/22/21 09:15 Valproic Acid (Depakene) 500 mg Q12HR GT 01/22/21 21:00 02/21/21 20:59 Warfarin Sodium (Coumadin per pharmacy) 1 ea DAILY PRN MISC Per rx protocol 01/02/21 08:30 02/01/21 08:29 Allergies: Coded Allergies: No Known Allergies (Unverified , 01/02/21) ROS Limited/Unobtainable: Yes Subjective 60 YO M admitted with shortness of breath. Now respiratory failure. Cover for Int Med-DR Bradley. ICU. Intubated and sedated Objective Last Vital Signs Date Time Temp Pulse Resp B/P (MAP) Pulse Ox O2 Delivery O2 Flow Rate FiO2 01/22/21 17:00 79 22 95/54 (68) 93 01/22/21 16:43 50 01/22/21 16:00 100.5 01/22/21 16:00 Mechanical Ventilator 01/14/21 03:33 15.0 Laboratory Tests Test 01/22/21 02:45 White Blood Count 8.7 K/UL (4.8-10.8) Red Blood Count 4.23 M/UL (4.70-6.10) L Hemoglobin 12.0 G/DL (14.2-18.0) L Hematocrit 38.6 % (42.0-52.0) L Mean Corpuscular Volume 91 FL (80-99) Mean Corpuscular Hemoglobin 28.4 PG (27.0-31.0) Mean Corpuscular Hemoglobin Concent 31.2 G/DL (32.0-36.0) L Red Cell Distribution Width 15.4 % (11.6-14.8) H Platelet Count 242 K/UL (150-450) Mean Platelet Volume 9.8 FL (6.5-10.1) Neutrophils (%) (Auto) 77.6 % (45.0-75.0) H Lymphocytes (%) (Auto) 17.5 % (20.0-45.0) L Monocytes (%) (Auto) 3.8 % (1.0-10.0) Eosinophils (%) (Auto) 0.5 % (0.0-3.0) Basophils (%) (Auto) 0.6 % (0.0-2.0) Prothrombin Time 21.7 SEC (9.30-11.50) H Prothromb Time International Ratio 2.1 (0.9-1.1) H Sodium Level 146 MMOL/L (136-145) H Potassium Level 4.2 MMOL/L (3.5-5.1) Chloride Level 110 MMOL/L (98-107) H Carbon Dioxide Level 29 MMOL/L (21-32) Anion Gap 7 mmol/L (5-15) Blood Urea Nitrogen 13 mg/dL (7-18) Creatinine 0.8 MG/DL (0.55-1.30) Estimat Glomerular Filtration Rate > 60 mL/min (>60) Glucose Level 231 MG/DL (74-106) H Calcium Level 8.9 MG/DL (8.5-10.1) Intake and Output 01/21/21 01/22/21 19:00 07:00 Intake Total 1240 ml 1090 ml Output Total 3685 ml 1145 ml Balance -2445 ml -55 ml Free Water 280 ml 250 ml IV Total 240 ml 600 ml Tube Feeding 720 ml 240 ml Output Urine Total 3685 ml 1145 ml # Bowel Movements 4 Objective Objective General: awake, responsive , confused. HEENT: NCAT, sclera anicteric, PERRL, EOMI. Neck: Supple, no significant jugular venous distention, Lungs: mech vent; decreased air at the bases, occasional crackles, no Wheeze. Heart: Regular rate and rhythm, normal S1/S2, no murmurs Abdomen: soft, nontender, nondistended. Normoactive bowel sound, obesity. / Rectal: Refused and deferred. Extremities: Left LE: No Cyanosis , clubbing or edema. Right LE AKA. Neuro: A&O x 2, Able to move all extremities Skin: warm, no rashes or lesions. Assessment/Plan Assessment/Plan Assessment/Plan Assessment/Plan (1) Pneumonia due to COVID-19 virus ICD Codes: U07.1 - COVID-19; J12.82 - Pneumonia due to coronavirus disease 2018 SNOMED: 851026456597666671 (2) Acute hypercapnic respiratory failure ICD Codes: J96.02 - Acute respiratory failure with hypercapnia SNOMED: 631999840 (3) Respiratory failure with hypoxia ICD Codes: J96.91 - Respiratory failure, unspecified with hypoxia SNOMED: 75719919861964899 Qualifiers: Qualified Codes: J96.01 - Acute respiratory failure with hypoxia (4) COPD (chronic obstructive pulmonary disease) ICD Codes: J44.9 - Chronic obstructive pulmonary disease, unspecified SNOMED: 33209427 (5) History of deep venous thrombosis or pulmonary embolus SNOMED: 862653633 (6) Obesity ICD Codes: E66.9 - Obesity, unspecified SNOMED: 096836920, 587028297 (7) Essential hypertension ICD Codes: I10 - Essential (primary) hypertension SNOMED: 92303605 (8) Diabetes mellitus type 2 in obese ICD Codes: E11.69 - Type 2 diabetes mellitus with other specified complication; E66.9 - Obesity, unspecified SNOMED: 80497719 (9) History of hydrocephalus ICD Codes: Z86.69 - Personal history of other diseases of the nervous system and sense organs SNOMED: 611480999 (10) Schizophrenia ICD Codes: F20.9 - Schizophrenia, unspecified SNOMED: 77912518 (11) Bipolar 1 disorder ICD Codes: F31.9 - Bipolar disorder, unspecified SNOMED: 642956429 (12) Anticoagulant long-term use ICD Codes: 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 Sepsis=gram pos cocci Assessment/Plan: Optimize pulmonary hygiene/mobilize as tolerated Non Rebreather mask>BIPAP>intubated S/P Remdesivir IV S/P Solu-Medrol 40 mg IV twice a day. Abx =zosyn and S/P vanco F/U Cx's Monitor volumes and renal function DVT Px: Coumadin DC IV fluid Start diet Monitor blood glucose level closely. On levophed, fentanyl and propofol drips Pulmonary=Dr Luis ID=Dr Gomez Psych consult=Dr Gallegos Start seroquel at 1/2 previous dose Vickey Brown MD Jan 22, 2021 17:52
--- NOTE | 2021-01-22 19:23 | Surgery Progress Note ---
Surgery Progress Note Subjective Additional Comments plan for trach not able to wean for extubation Objective Last 24 Hour Vital Signs Date Time Temp Pulse Resp B/P (MAP) Pulse Ox O2 Delivery O2 Flow Rate FiO2 01/22/21 19:17 74 22 60 01/22/21 19:00 74 22 85/49 (61) 97 01/22/21 19:00 22 85/49 Mechanical Ventilator 50 01/22/21 19:00 22 85/49 Mechanical Ventilator 50 01/22/21 18:33 22 87/53 Mechanical Ventilator 50 01/22/21 18:15 80 0 84/47 (59) 93 01/22/21 18:14 100.0 01/22/21 18:13 22 92/47 Mechanical Ventilator 50 01/22/21 18:00 22 83/46 Mechanical Ventilator 50 01/22/21 17:00 22 95/54 Mechanical Ventilator 50 01/22/21 17:00 22 95/54 Mechanical Ventilator 50 01/22/21 17:00 79 22 95/54 (68) 93 01/22/21 16:43 22 94/56 50 01/22/21 16:43 22 95/74 Mechanical Ventilator 50 01/22/21 16:00 74 01/22/21 16:00 100.5 84 22 86/46 (59) 94 01/22/21 16:00 50 01/22/21 16:00 22 86/46 50 01/22/21 16:00 22 86/46 Mechanical Ventilator 50 01/22/21 16:00 Mechanical Ventilator 01/22/21 15:21 89 22 60 01/22/21 15:00 22 91/56 Mechanical Ventilator 50 01/22/21 15:00 22 91/56 Mechanical Ventilator 50 01/22/21 15:00 75 22 91/56 (68) 92 01/22/21 14:00 83 22 87/46 (60) 93 01/22/21 14:00 22 87/46 Mechanical Ventilator 50 01/22/21 14:00 22 87/46 Mechanical Ventilator 50 01/22/21 13:00 77 22 90/52 (65) 91 01/22/21 13:00 23 90/52 Mechanical Ventilator 50 01/22/21 13:00 22 90/52 Mechanical Ventilator 50 01/22/21 12:15 60 01/22/21 12:00 50 01/22/21 12:00 70 01/22/21 12:00 22 115/85 Mechanical Ventilator 50 01/22/21 12:00 22 115/85 Mechanical Ventilator 50 01/22/21 12:00 Mechanical Ventilator 01/22/21 12:00 71 22 115/70 (85) 89 01/22/21 11:00 89 14 115/70 (85) 93 01/22/21 11:00 14 115/70 Mechanical Ventilator 50 01/22/21 11:00 14 115/70 Mechanical Ventilator 50 01/22/21 10:49 86 22 50 01/22/21 10:00 70 22 114/75 (88) 97 01/22/21 10:00 22 114/75 Mechanical Ventilator 50 01/22/21 10:00 22 114/75 Mechanical Ventilator 50 01/22/21 09:18 22 123/79 Mechanical Ventilator 50 01/22/21 09:00 99.0 67 22 123/79 (94) 98 01/22/21 09:00 22 123/79 Mechanical Ventilator 50 01/22/21 09:00 22 123/79 Mechanical Ventilator 50 01/22/21 08:00 22 116/76 Mechanical Ventilator 50 01/22/21 08:00 22 116/76 Mechanical Ventilator 50 01/22/21 08:00 67 22 116/76 (89) 98 01/22/21 08:00 67 01/22/21 08:00 Mechanical Ventilator 01/22/21 08:00 50 01/22/21 07:10 65 22 50 01/22/21 06:45 68 22 113/74 (87) 97 01/22/21 06:30 69 22 113/74 (87) 97 01/22/21 06:15 69 22 112/74 (87) 97 01/22/21 06:00 71 22 109/72 (84) 97 01/22/21 06:00 22 113/74 Mechanical Ventilator 50 01/22/21 06:00 22 112/74 Mechanical Ventilator 50 01/22/21 05:45 71 22 109/71 (84) 97 01/22/21 05:30 71 22 111/70 (84) 97 01/22/21 05:15 70 22 110/71 (84) 97 01/22/21 05:00 72 22 105/69 (81) 97 01/22/21 05:00 22 105/64 Mechanical Ventilator 50 01/22/21 05:00 22 105/64 Mechanical Ventilator 50 01/22/21 04:45 73 22 105/69 (81) 97 01/22/21 04:30 73 22 103/68 (80) 97 01/22/21 04:30 22 98/64 Mechanical Ventilator 50 01/22/21 04:30 22 109/71 Mechanical Ventilator 50 01/22/21 04:15 74 22 104/66 (79) 97 01/22/21 04:00 Mechanical Ventilator 01/22/21 04:00 99.5 74 22 103/67 (79) 97 01/22/21 04:00 22 98/66 Mechanical Ventilator 50 01/22/21 04:00 22 98/66 Mechanical Ventilator 50 01/22/21 04:00 73 01/22/21 04:00 50 01/22/21 03:45 74 22 104/65 (78) 97 01/22/21 03:30 74 22 102/68 (79) 97 01/22/21 03:15 76 22 102/67 (79) 98 01/22/21 03:05 82 22 50 01/22/21 03:02 22 98/64 Mechanical Ventilator 50 01/22/21 03:02 22 102/66 Mechanical Ventilator 50 01/22/21 03:00 75 22 102/66 (78) 98 01/22/21 02:45 76 22 102/64 (77) 98 01/22/21 02:30 76 22 101/61 (74) 97 01/22/21 02:15 77 22 100/64 (76) 98 01/22/21 02:00 99.9 79 22 97/57 (70) 98 01/22/21 02:00 22 104/65 Mechanical Ventilator 50 01/22/21 02:00 22 104/65 Mechanical Ventilator 50 01/22/21 01:45 78 22 100/60 (73) 98 01/22/21 01:30 78 22 97/58 (71) 98 01/22/21 01:15 79 22 93/57 (69) 98 01/22/21 01:00 22 90/47 Mechanical Ventilator 50 01/22/21 01:00 22 93/57 Mechanical Ventilator 50 01/22/21 01:00 81 22 89/53 (65) 98 01/22/21 00:45 83 22 91/48 (62) 97 01/22/21 00:30 90 22 84/47 (59) 97 01/22/21 00:28 99.5 01/22/21 00:21 99.7 100 18 90/47 (61) 01/22/21 00:00 79 22 99/56 (70) 96 01/22/21 00:00 50 01/22/21 00:00 22 90/47 Mechanical Ventilator 50 01/22/21 00:00 22 90/47 Mechanical Ventilator 50 01/22/21 00:00 98 01/22/21 00:00 Mechanical Ventilator 01/21/21 23:45 82 22 95/53 (67) 96 01/21/21 23:30 82 22 96/55 (69) 96 01/21/21 23:25 88 22 50 01/21/21 23:15 80 21 104/66 (79) 96 01/21/21 23:00 22 104/66 Mechanical Ventilator 50 01/21/21 23:00 22 104/66 Mechanical Ventilator 50 01/21/21 23:00 78 22 93/58 (70) 96 01/21/21 22:45 77 22 94/60 (71) 96 01/21/21 22:30 78 22 93/57 (69) 96 01/21/21 22:15 78 22 92/59 (70) 96 01/21/21 22:00 22 92/59 Mechanical Ventilator 50 01/21/21 22:00 22 92/59 Mechanical Ventilator 50 01/21/21 22:00 79 22 92/58 (69) 96 01/21/21 21:45 80 22 92/54 (67) 96 01/21/21 21:30 100.4 83 22 88/53 (65) 96 01/21/21 21:15 86 22 91/56 (68) 96 01/21/21 21:00 84 22 93/55 (68) 97 01/21/21 21:00 22 91/56 Mechanical Ventilator 50 01/21/21 21:00 22 91/56 Mechanical Ventilator 50 01/21/21 20:45 88 22 95/57 (70) 97 01/21/21 20:30 89 24 98/59 (72) 95 01/21/21 20:15 80 22 89/58 (68) 97 01/21/21 20:00 99.9 82 22 89/58 (68) 96 2/22/21 20:00 Mechanical Ventilator 01/21/21 20:00 83 01/21/21 20:00 50 01/21/21 20:00 22 89/58 Mechanical Ventilator 50 01/21/21 20:00 22 89/58 Mechanical Ventilator 50 01/21/21 19:45 83 22 91/58 (69) 97 01/21/21 19:30 86 22 93/57 (69) 97 I&O Intake and Output 01/21/21 01/22/21 19:00 07:00 Intake Total 1240 ml 1090 ml Output Total 3685 ml 1145 ml Balance -2445 ml -55 ml Free Water 280 ml 250 ml IV Total 240 ml 600 ml Tube Feeding 720 ml 240 ml Output Urine Total 3685 ml 1145 ml # Bowel Movements 4 Dressing: saturated Cardiovascular: RSR Respiratory: decreased breath sounds Abdomen: soft, non-tender, present bowel sounds Extremities: no tenderness, no cyanosis Laboratory Tests Test 01/22/21 02:45 White Blood Count 8.7 K/UL (4.8-10.8) Red Blood Count 4.23 M/UL (4.70-6.10) L Hemoglobin 12.0 G/DL (14.2-18.0) L Hematocrit 38.6 % (42.0-52.0) L Mean Corpuscular Volume 91 FL (80-99) Mean Corpuscular Hemoglobin 28.4 PG (27.0-31.0) Mean Corpuscular Hemoglobin Concent 31.2 G/DL (32.0-36.0) L Red Cell Distribution Width 15.4 % (11.6-14.8) H Platelet Count 242 K/UL (150-450) Mean Platelet Volume 9.8 FL (6.5-10.1) Neutrophils (%) (Auto) 77.6 % (45.0-75.0) H Lymphocytes (%) (Auto) 17.5 % (20.0-45.0) L Monocytes (%) (Auto) 3.8 % (1.0-10.0) Eosinophils (%) (Auto) 0.5 % (0.0-3.0) Basophils (%) (Auto) 0.6 % (0.0-2.0) Prothrombin Time 21.7 SEC (9.30-11.50) H Prothromb Time International Ratio 2.1 (0.9-1.1) H Sodium Level 146 MMOL/L (136-145) H Potassium Level 4.2 MMOL/L (3.5-5.1) Chloride Level 110 MMOL/L (98-107) H Carbon Dioxide Level 29 MMOL/L (21-32) Anion Gap 7 mmol/L (5-15) Blood Urea Nitrogen 13 mg/dL (7-18) Creatinine 0.8 MG/DL (0.55-1.30) Estimat Glomerular Filtration Rate > 60 mL/min (>60) Glucose Level 231 MG/DL (74-106) H Calcium Level 8.9 MG/DL (8.5-10.1) Plan Problems: (1) COPD (chronic obstructive pulmonary disease) (2) Essential hypertension (3) Schizophrenia (4) Obesity (5) Diabetes mellitus type 2 in obese (6) History of hydrocephalus (7) Anticoagulant long-term use (8) Bipolar 1 disorder (9) History of deep venous thrombosis or pulmonary embolus (10) Acute hypercapnic respiratory failure (11) Sepsis Assessment & Plan: 60-year-old male Covid positive respiratory insufficiency and severe decline being prone intubated on vent support labs noted septic ill- appearing has been developing wound around the face from ET tube.Receiv ed report from RT pt is being proned and was observed to have developed a blood blister under vent tape on L cheek and L earlobe. Skin assessed and pt was obser jayshree to have a blood blister that is 50% de-capped,50% intact. Intact Blood Blister noted to L earlobe. Skin Barrier applied to affected areas. Optifoam Thin foam placed between vent anchor and pt's skin. Optifoam thin placed to R cheek under Vent tape, on Bridge of nose and both earlobes. Given patient's critical status current care plan and findings nutritional optimization is strongly encouraged Covid nutrition plan initiated. All Covid precautions are being taken. Imaging reviewed. Will follow with care plan. Thank you Mike [facility] care Or.Plan: Maintain Optifoam Thin foam to R and L cheeks,Bridge of Nose and Both Ears . Change every 7 days and prn.( May request Optifoam Thin from RT dept). APM/PEPE Mattress overlay DAILY ESTIMATED NEEDS: Needs based on Critical care, pulmonary, obese 73.7kg abw 22-28 kcals/kg 5401-5686 total kcals 1.2-2 g protein/kg 88-147 g total protein 25-30 mL/kg 0663-6566 total fluid mLs NUTRITION DIAGNOSIS: Altered nutrition related lab values r/t steroidal meds, clinical status as evidenced by febrile on adm (102.5), elevated BG (270 287) on solumedrol, elevated lipid panel (Triglycerides 333, Chol 370, LDL 150). CURRENT TF:Vital @30ml/hr, now Nepro @30 ENTERAL NUTRITION RECOMMENDATIONS: NEPRO @30ml/hr while supine to provide x8 hrs feeds: 360ml, 648 kcal, 29g pro, 262ml free H2O - Feed at rate best tolerated, currently not meeting est needs d/t proning and aspiration risk w/ supine feeds limited to 8hrs/day. - W/ reduced aspiration risk rec feedings to total Volume of 900ml/day of Nepro as medically able. - Monitor tolerance, position/HOB >30 degrees, hemodynamic stability and ability to increase to meet est kcal and pro needs. - With increase pressor support, rec trophic feeds of 10ml/hr for gut integrity. - When tolerating TF at goal add Prosource BID to better meet est pro needs. ADDITIONAL RECOMMENDATIONS: 1) Now intubated, TF recs above when off proning (8hrs feeds) 2) Obtain calibrated bedscale wts 3) HgA1C/ elevated BG Need for niss while on D5 4) Lytes daily; replete as needed 5) Monitor triglycerides, TF tolerance, hemodynamic stability. (12) Respiratory failure with hypoxia (13) Pneumonia due to COVID-19 virus (14) Hyperkalemia (15) DMII (diabetes mellitus, type 2) Ki Strong Jan 22, 2021 19:23
[2021-01-22] MEDS: Valproic Acid 250mg/5ml Liquid GT SCH (20:35)
[2021-01-22] MEDS: Dyna-Hex 2% Top Sol 2oz TOPIC SCH (20:35)
--- NOTE | 2021-01-22 21:24 | Pulmonology Progress Note ---
Subjective ROS Limited/Unobtainable: Yes Allergies: Coded Allergies: No Known Allergies (Unverified , 01/02/21) Objective Last 24 Hour Vital Signs Date Time Temp Pulse Resp B/P (MAP) Pulse Ox O2 Delivery O2 Flow Rate FiO2 01/22/21 21:15 71 22 65 01/22/21 21:00 72 15 92/58 (69) 91 01/22/21 20:45 72 17 93/57 (69) 92 01/22/21 20:30 73 10 87/55 (66) 91 01/22/21 20:15 73 10 91/54 (66) 91 01/22/21 20:00 50 01/22/21 20:00 100.0 75 7 87/51 (63) 91 01/22/21 20:00 Mechanical Ventilator 01/22/21 19:17 74 22 60 01/22/21 19:00 74 22 85/49 (61) 97 01/22/21 19:00 22 85/49 Mechanical Ventilator 50 01/22/21 19:00 22 85/49 Mechanical Ventilator 50 01/22/21 18:33 22 87/53 Mechanical Ventilator 50 01/22/21 18:15 80 0 84/47 (59) 93 01/22/21 18:14 100.0 01/22/21 18:13 22 92/47 Mechanical Ventilator 50 01/22/21 18:00 22 83/46 Mechanical Ventilator 50 01/22/21 17:00 22 95/54 Mechanical Ventilator 50 01/22/21 17:00 22 95/54 Mechanical Ventilator 50 01/22/21 17:00 79 22 95/54 (68) 93 01/22/21 16:43 22 94/56 50 01/22/21 16:43 22 95/74 Mechanical Ventilator 50 01/22/21 16:00 74 01/22/21 16:00 100.5 84 22 86/46 (59) 94 01/22/21 16:00 50 01/22/21 16:00 22 86/46 50 01/22/21 16:00 22 86/46 Mechanical Ventilator 50 01/22/21 16:00 Mechanical Ventilator 01/22/21 15:21 89 22 60 01/22/21 15:00 22 91/56 Mechanical Ventilator 50 01/22/21 15:00 22 91/56 Mechanical Ventilator 50 2/23/21 15:00 75 22 91/56 (68) 92 01/22/21 14:00 83 22 87/46 (60) 93 01/22/21 14:00 22 87/46 Mechanical Ventilator 50 01/22/21 14:00 22 87/46 Mechanical Ventilator 50 01/22/21 13:00 77 22 90/52 (65) 91 01/22/21 13:00 23 90/52 Mechanical Ventilator 50 01/22/21 13:00 22 90/52 Mechanical Ventilator 50 01/22/21 12:15 60 01/22/21 12:00 50 01/22/21 12:00 70 01/22/21 12:00 22 115/85 Mechanical Ventilator 50 01/22/21 12:00 22 115/85 Mechanical Ventilator 50 01/22/21 12:00 Mechanical Ventilator 01/22/21 12:00 71 22 115/70 (85) 89 01/22/21 11:00 89 14 115/70 (85) 93 01/22/21 11:00 14 115/70 Mechanical Ventilator 50 01/22/21 11:00 14 115/70 Mechanical Ventilator 50 01/22/21 10:49 86 22 50 01/22/21 10:00 70 22 114/75 (88) 97 01/22/21 10:00 22 114/75 Mechanical Ventilator 50 01/22/21 10:00 22 114/75 Mechanical Ventilator 50 01/22/21 09:18 22 123/79 Mechanical Ventilator 50 01/22/21 09:00 99.0 67 22 123/79 (94) 98 01/22/21 09:00 22 123/79 Mechanical Ventilator 50 01/22/21 09:00 22 123/79 Mechanical Ventilator 50 01/22/21 08:00 22 116/76 Mechanical Ventilator 50 01/22/21 08:00 22 116/76 Mechanical Ventilator 50 01/22/21 08:00 67 22 116/76 (89) 98 01/22/21 08:00 67 01/22/21 08:00 Mechanical Ventilator 01/22/21 08:00 50 01/22/21 07:10 65 22 50 01/22/21 06:45 68 22 113/74 (87) 97 01/22/21 06:30 69 22 113/74 (87) 97 01/22/21 06:15 69 22 112/74 (87) 97 01/22/21 06:00 71 22 109/72 (84) 97 01/22/21 06:00 22 113/74 Mechanical Ventilator 50 01/22/21 06:00 22 112/74 Mechanical Ventilator 50 01/22/21 05:45 71 22 109/71 (84) 97 01/22/21 05:30 71 22 111/70 (84) 97 01/22/21 05:15 70 22 110/71 (84) 97 01/22/21 05:00 72 22 105/69 (81) 97 01/22/21 05:00 22 105/64 Mechanical Ventilator 50 01/22/21 05:00 22 105/64 Mechanical Ventilator 50 01/22/21 04:45 73 22 105/69 (81) 97 01/22/21 04:30 73 22 103/68 (80) 97 01/22/21 04:30 22 98/64 Mechanical Ventilator 50 01/22/21 04:30 22 109/71 Mechanical Ventilator 50 01/22/21 04:15 74 22 104/66 (79) 97 01/22/21 04:00 Mechanical Ventilator 01/22/21 04:00 99.5 74 22 103/67 (79) 97 01/22/21 04:00 22 98/66 Mechanical Ventilator 50 01/22/21 04:00 22 98/66 Mechanical Ventilator 50 01/22/21 04:00 73 01/22/21 04:00 50 01/22/21 03:45 74 22 104/65 (78) 97 01/22/21 03:30 74 22 102/68 (79) 97 01/22/21 03:15 76 22 102/67 (79) 98 01/22/21 03:05 82 22 50 01/22/21 03:02 22 98/64 Mechanical Ventilator 50 01/22/21 03:02 22 102/66 Mechanical Ventilator 50 01/22/21 03:00 75 22 102/66 (78) 98 01/22/21 02:45 76 22 102/64 (77) 98 01/22/21 02:30 76 22 101/61 (74) 97 01/22/21 02:15 77 22 100/64 (76) 98 01/22/21 02:00 99.9 79 22 97/57 (70) 98 01/22/21 02:00 22 104/65 Mechanical Ventilator 50 01/22/21 02:00 22 104/65 Mechanical Ventilator 50 01/22/21 01:45 78 22 100/60 (73) 98 01/22/21 01:30 78 22 97/58 (71) 98 01/22/21 01:15 79 22 93/57 (69) 98 01/22/21 01:00 22 90/47 Mechanical Ventilator 50 01/22/21 01:00 22 93/57 Mechanical Ventilator 50 01/22/21 01:00 81 22 89/53 (65) 98 01/22/21 00:45 83 22 91/48 (62) 97 01/22/21 00:30 90 22 84/47 (59) 97 01/22/21 00:28 99.5 01/22/21 00:21 99.7 100 18 90/47 (61) 01/22/21 00:00 79 22 99/56 (70) 96 01/22/21 00:00 50 01/22/21 00:00 22 90/47 Mechanical Ventilator 50 01/22/21 00:00 22 90/47 Mechanical Ventilator 50 01/22/21 00:00 98 01/22/21 00:00 Mechanical Ventilator 01/21/21 23:45 82 22 95/53 (67) 96 01/21/21 23:30 82 22 96/55 (69) 96 01/21/21 23:25 88 22 50 01/21/21 23:15 80 21 104/66 (79) 96 01/21/21 23:00 22 104/66 Mechanical Ventilator 50 01/21/21 23:00 22 104/66 Mechanical Ventilator 50 01/21/21 23:00 78 22 93/58 (70) 96 01/21/21 22:45 77 22 94/60 (71) 96 01/21/21 22:30 78 22 93/57 (69) 96 01/21/21 22:15 78 22 92/59 (70) 96 01/21/21 22:00 22 92/59 Mechanical Ventilator 50 01/21/21 22:00 22 92/59 Mechanical Ventilator 50 01/21/21 22:00 79 22 92/58 (69) 96 01/21/21 21:45 80 22 92/54 (67) 96 01/21/21 21:30 100.4 83 22 88/53 (65) 96 Intake and Output 01/21/21 01/22/21 19:00 07:00 Intake Total 1240 ml 1090 ml Output Total 3685 ml 1145 ml Balance -2445 ml -55 ml Free Water 280 ml 250 ml IV Total 240 ml 600 ml Tube Feeding 720 ml 240 ml Output Urine Total 3685 ml 1145 ml # Bowel Movements 4 Laboratory Tests 01/22/21 02:45: White Blood Count 8.7, Red Blood Count 4.23L, Hemoglobin 12.0L, Hematocrit 38.6L , Mean Corpuscular Volume 91, Mean Corpuscular Hemoglobin 28.4, Mean Corpuscular Hemoglobin Concent 31.2L, Red Cell Distribution Width 15.4H, Platelet Count 242, Mean Platelet Volume 9.8, Neutrophils (%) (Auto) 77.6H, Lymphocytes (%) (Auto) 17.5L, Monocytes (%) (Auto) 3.8, Eosinophils (%) (Auto) 0.5, Basophils (%) (Auto) 0.6, Prothrombin Time 21.7H, Prothromb Time International Ratio 2.1H, Sodium Level 146H, Potassium Level 4.2, Chloride Level 110H, Carbon Dioxide Level 29, Anion Gap 7, Blood Urea Nitrogen 13, Creatinine 0.8, Estimat Glomerular Filtration Rate > 60, Glucose Level 231H, Calcium Level 8.9 Current Medications Medications (Trade) Dose Ordered Sig/Johnny Route PRN Reason Start Time Stop Time Status Last Admin Dose Admin Acetaminophen (Tylenol) 650 mg Q6H PRN NG Temp >100.5 01/09/21 09:15 02/08/21 09:14 01/22/21 17:44 Acetaminophen (Tylenol) 650 mg Q6H PRN NG Mild Pain (Pain Scale 1-3) 01/09/21 09:15 02/08/21 09:14 Albuterol Sulfate (Proventil MDI) 2 puff Q6HRT INH 01/02/21 19:00 04/02/21 18:59 01/22/21 19:16 Benztropine Mesylate (Cogentin) 1 mg EVERY 12 HOURS NG 01/09/21 09:15 02/01/21 09:14 01/22/21 20:36 Chlorhexidine Gluconate (Myranda-Hex 2%) 1 applic DAILY@2000 TOPIC 01/12/21 20:00 04/12/21 19:59 01/22/21 20:35 Dextrose (Dextrose 50%) 25 ml Q30M PRN IV Hypoglycemia 01/06/21 23:45 04/06/21 23:44 Dextrose (Dextrose 50%) 50 ml Q30M PRN IV Hypoglycemia 01/06/21 23:45 04/06/21 23:44 Fentanyl Citrate 250 ml @ 1 mls/hr Q24H IV 01/22/21 05:30 01/24/21 05:29 01/22/21 16:43 Insulin Aspart (NovoLOG) EVERY 6 HOURS SUBQ 01/09/21 12:00 04/04/21 16:29 01/22/21 17:33 Ipratropium Hope (Atrovent Inh) 1 puffs Q6HRT INH 01/02/21 19:00 02/01/21 18:59 01/22/21 19:16 Lansoprazole (Prevacid) 30 mg DAILY GT 01/16/21 09:00 02/15/21 08:59 01/22/21 09:55 Midazolam HCl 200 ml @ 0 mls/hr Q24H PRN IV Agitation (RASS -2) 01/17/21 00:00 01/24/21 00:00 01/22/21 18:33 Midodrine (Pro-Amatine) 10 mg Q8HR ORAL 01/20/21 14:00 04/20/21 13:59 01/22/21 15:13 Ondansetron HCl (Zofran) 4 mg Q4H PRN IVP Nausea & Vomiting 01/02/21 08:15 02/01/21 08:14 Potassium Chloride (K-Dur) 20 meq TWICE A DAY NG 01/20/21 13:00 04/20/21 12:59 01/22/21 17:32 Quetiapine Fumarate (SEROqueL) 100 mg Q12HR ORAL 01/20/21 15:00 03/06/21 14:59 01/22/21 20:36 Valproic Acid (Depakene) 500 mg Q12HR GT 01/22/21 21:00 02/21/21 20:59 01/22/21 20:35 Warfarin Sodium (Coumadin per pharmacy) 1 ea DAILY PRN MISC Per rx protocol 01/02/21 08:30 02/01/21 08:29 Assessment/Plan Assessment/Plan Pulmonary CCM Progress Note HPI Patient is a 60 man with prior h/o COPD, CPS/bipolar DO, 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 ID following and started on CTx/Azithro + REM + SM, CXR with bilateral infiltrates,ETT appropriate. Proning as tolerated Sedated in ICU on Ventilator, has OGT/central line PEEP at 5,maintaining O2 sats, FIO2 - 65%,worsening infiltrates on CXR Pressure areas around ETT site - surgery/wound nurse following Will need Trach - Surgery following Allergies: Coded Allergies: No Known Allergies (Unverified , 01/02/21) PMH: COPD, CPS/bipolar DO, prior DVT/PE on AC, DM2, HTN and hydrocephalus Physical Exam Deferred Covid19 Vital Signs noted Laboratory Tests noted Imaging noted Height (Feet): 5 Height (Inches): 5.00 Weight (Pounds): 233 Medications Medications noted Assessment/Plan Problem List: (1) Pneumonia due to COVID-19 virus ICD Codes: U07.1 - COVID-19; J12.82 - Pneumonia due to coronavirus disease 2019 SNOMED: 615641211083644105 (2) Acute hypercapnic respiratory failure ICD Codes: J96.02 - Acute respiratory failure with hypercapnia SNOMED: 055585112 (3) Respiratory failure with hypoxia ICD Codes: J96.91 - Respiratory failure, unspecified with hypoxia SNOMED: 95680721595972995 Qualifiers: Qualified Codes: J96.01 - Acute respiratory failure with hypoxia (4) COPD (chronic obstructive pulmonary disease) ICD Codes: J44.9 - Chronic obstructive pulmonary disease, unspecified SNOMED: 08756350 (5) History of deep venous thrombosis or pulmonary embolus SNOMED: 541590000 (6) Obesity ICD Codes: E66.9 - Obesity, unspecified SNOMED: 204285384, 990761875 (7) Essential hypertension ICD Codes: I10 - Essential (primary) hypertension SNOMED: 76017716 (8) Diabetes mellitus type 2 in obese ICD Codes: E11.69 - Type 2 diabetes mellitus with other specified complication; E66.9 - Obesity, unspecified SNOMED: 01257228 (9) History of hydrocephalus ICD Codes: Z86.69 - Personal history of other diseases of the nervous system and sense organs SNOMED: 839807544 (10) Schizophrenia ICD Codes: F20.9 - Schizophrenia, unspecified SNOMED: 70633843 (11) Bipolar 1 disorder ICD Codes: F31.9 - Bipolar disorder, unspecified SNOMED: 440476593 (12) Anticoagulant long-term use ICD Codes: Z79.01 - detention (current) use of anticoagulants SNOMED: 416054860 Assessment/Plan: ACVC - adjust PRN Prone as tolerated per protocol - reduce proning time given improvement Adjust FiO2 to keep SaO2 > 92% Reduce PEEP as tolerated Wean as tolerated Sedation PRN HFA's F/U inflammatory markers and covid labs ID recs REM per ID Wean SM to off - 10QD previously Abx per ID F/U Cx's Monitor volumes and renal function,diuresis per Renal DVT Px: Coumadin TF when not proned FC Will need tracheostomy - did not tolerate weaning Anuel Luis MD Jan 22, 2021 21:24
[2021-01-22] MEDS ORDERED: Phenylephrine 50 MG in D5W 245 ML IV PRN (22:45)
[2021-01-22] MEDS: Norepinephrine 4mg/NS Premix 250 ML IV PRN (23:51)
[2021-01-23] VITALS (40 sets, daily range): BP systolic 85–146; BP diastolic 5–88
[2021-01-23] MEDS: NovoLOG Insulin Flexpen SUBQ SCH ×4 (01:14→18:29)
[2021-01-23] MEDS: Ipratropium Bromide Inhaler INH SCH ×4 (01:22→19:03)
[2021-01-23] MEDS: Albuterol 90mcg Inhaler 8gm INH SCH ×4 (01:22→19:04)
[2021-01-23] MEDS: Versed 100mg/NS 200ml 200 ML IV PRN ×4 (02:02→17:01)
[2021-01-23] MEDS: Midodrine 10mg tab ORAL SCH ×4 (05:12→20:06)
[2021-01-23 05:38] LABS: BASOPHILS % (AUTO) 2.6 % (0.0-2.0); EOSINOPHILS % (AUTO) 1.6 % (0.0-3.0); HEMATOCRIT 43.6 % (42.0-52.0); HEMOGLOBIN 13.5 G/DL (14.2-18.0); LYMPHOCYTES % (AUTO) 22.6 % (20.0-45.0); MEAN CORPUSCULAR VOLUME 92 FL (80-99); NEUTROPHILS % (AUTO) 65.2 % (45.0-75.0); PLATELET COUNT 259 K/UL (150-450); RED BLOOD COUNT 4.75 M/UL (4.70-6.10); RED CELL DISTRIBUTION WIDTH 15.3 % (11.6-14.8); WHITE BLOOD COUNT 11.4 K/UL (4.8-10.8)
[2021-01-23 05:39] LABS: INR 2.7 (0.9-1.1)
[2021-01-23 06:07] LABS: ALANINE AMINOTRANSFERASE 24 U/L (12-78); ALBUMIN 2.4 G/DL (3.4-5.0); ALBUMIN/GLOBULIN RATIO 0.5 (1.0-2.7); ALKALINE PHOSPHATASE 59 U/L (46-116); ANION GAP 15 mmol/L (5-15); ASPARTATE AMINO TRANSFERASE 19 U/L (15-37); BILIRUBIN,TOTAL 0.4 MG/DL (0.2-1.0); BLOOD UREA NITROGEN 13 mg/dL (7-18); CALCIUM 8.8 MG/DL (8.5-10.1); CARBON DIOXIDE 25 MMOL/L (21-32); CHLORIDE 104 MMOL/L (98-107); CREATININE 0.9 MG/DL (0.55-1.30); PHOSPHORUS 3.7 MG/DL (2.5-4.9); POTASSIUM 3.8 MMOL/L (3.5-5.1); SODIUM 143 MMOL/L (136-145)
[2021-01-23] MEDS: Norepinephrine 4mg/NS Premix 250 ML IV PRN ×2 (06:17→17:00)
[2021-01-23] MEDS: fentaNYL 2500mcg/NS 250ml 250 ML IV SCH ×2 (06:47→20:00)
[2021-01-23] MEDS: Valproic Acid 250mg/5ml Liquid GT SCH ×2 (08:38→20:05)
[2021-01-23] MEDS: Benztropine 1mg tab NG SCH ×2 (08:39→20:05)
[2021-01-23] MEDS: Lansoprazole 15mg cap GT SCH (08:39)
--- NOTE | 2021-01-23 09:39 | Infectious Diseases Prog Note ---
Assessment/Plan 60yo M with: Staph epi bacteremia, m/l skin contaminant 01/10 BCx 1/2 +Staph epi 01/13 BCx NTD COVID pna, severe Acute hypoxia 2/2 COVID pna >> intubated 01/06 Febrile to 103 Normal WBC Elevated AST 51 2/2 Tested positive for COVID at [facility] 2 COVID PCR positive 01/02 BCx NTD CXR: Multifocal pna MRSA nares neg 01/06 Intubated in ICU CXR: 1. Appropriately positioned endotracheal and enteric tubes. 2. Stable bilateral airspace disease. 01/07 Resp cx +Yasmine albicans (colonizer) 01/11 CXR: Interval improved bilateral lung aeration. Bibasilar infiltrates/atelectasis. Cr 1.1 HIV screen neg PMH: DM2 COPD HTN SNF resident Plan: Monitor off abx Monitor WBCs 01/22/21 steroids #19, on methylpred 20 IV q12 - defer course to Pulm/Primary, now tapering 01/19/21 SP Zosyn #10 01/14 SP vanco IV #1 01/09 SP CTX #7 01/07 SP azithro #5, RDV #5 This institution does not have access to convalescent plasma and only recommended to give in setting of clinical trial Monitor CBC/CMP Monitor temp curve, hemodynamics Monitor resp status D/w RN Thank you for this consult. [facility] will continue to follow. Subjective Allergies: Coded Allergies: No Known Allergies (Unverified , 01/02/21) Afebrile Remains on Vent 65% O2 Mild Leukocytosis today Objective Last 24 Hour Vital Signs Date Time Temp Pulse Resp B/P (MAP) Pulse Ox O2 Delivery O2 Flow Rate FiO2 01/23/21 07:23 68 21 65 01/23/21 07:00 68 22 132/83 (99) 100 01/23/21 07:00 22 132/83 Endotracheal Tube 65 01/23/21 07:00 22 132/83 Mechanical Ventilator 65 01/23/21 06:47 22 135/83 Endotracheal Tube 65 01/23/21 06:18 22 145/79 Mechanical Ventilator 65 01/23/21 06:17 145/79 01/23/21 06:00 62 22 145/79 (101) 100 01/23/21 06:00 22 144/79 Mechanical Ventilator 65 01/23/21 06:00 22 144/79 Mechanical Ventilator 65 01/23/21 05:46 72 22 65 01/23/21 05:30 61 22 146/77 (100) 100 01/23/21 05:15 62 22 141/81 (101) 100 01/23/21 05:00 22 144/79 Mechanical Ventilator 65 01/23/21 05:00 22 141/81 Mechanical Ventilator 65 01/23/21 05:00 66 22 128/78 (95) 100 01/23/21 04:30 68 22 138/83 (101) 100 01/23/21 04:00 22 130/86 Endotracheal Tube 60 01/23/21 04:00 22 130/86 Mechanical Ventilator 70 01/23/21 04:00 Mechanical Ventilator 01/23/21 04:00 67 01/23/21 04:00 70 01/23/21 04:00 99.8 67 22 130/86 (101) 99 01/23/21 03:30 71 22 135/78 (97) 99 01/23/21 03:18 69 22 65 01/23/21 03:00 69 22 132/81 (98) 100 01/23/21 03:00 22 132/81 Endotracheal Tube 60 01/23/21 03:00 22 132/81 Mechanical Ventilator 70 01/23/21 02:30 72 22 133/81 (98) 100 01/23/21 02:02 28 137/78 Mechanical Ventilator 90 01/23/21 02:00 22 137/78 Endotracheal Tube 60 01/23/21 02:00 22 137/78 Mechanical Ventilator 70 01/23/21 02:00 70 22 137/78 (97) 100 01/23/21 01:22 71 22 65 01/23/21 01:00 22 142/78 Mechanical Ventilator 100 01/23/21 01:00 22 142/78 Mechanical Ventilator 90 01/23/21 00:45 71 22 138/75 (96) 100 01/23/21 00:34 96 18 89/58 (68) 01/23/21 00:15 67 22 123/74 (90) 96 01/23/21 00:04 65 20 125/73 (90) 93 01/23/21 00:00 69 01/23/21 00:00 100.0 73 0 85/52 (63) 91 01/23/21 00:00 21 125/73 Mechanical Ventilator 100 01/23/21 00:00 21 125/73 Mechanical Ventilator 100 01/23/21 00:00 Mechanical Ventilator 01/22/21 23:58 100.0 01/22/21 23:51 87/56 01/22/21 23:00 75 22 87/56 (66) 90 01/22/21 23:00 13 87/56 Mechanical Ventilator 65 01/22/21 23:00 13 87/56 Mechanical Ventilator 65 01/22/21 22:38 72 22 65 01/22/21 22:00 12 94/61 Mechanical Ventilator 65 01/22/21 22:00 12 94/61 Mechanical Ventilator 65 01/22/21 22:00 73 14 93/59 (70) 91 01/22/21 21:15 71 22 65 01/22/21 21:00 72 15 92/58 (69) 91 01/22/21 21:00 18 94/59 Mechanical Ventilator 50 01/22/21 21:00 18 94/59 Mechanical Ventilator 50 01/22/21 20:45 72 17 93/57 (69) 92 01/22/21 20:30 73 10 87/55 (66) 91 01/22/21 20:15 73 10 91/54 (66) 91 01/22/21 20:00 50 01/22/21 20:00 100.0 75 7 87/51 (63) 91 01/22/21 20:00 17 91/54 Mechanical Ventilator 50 01/22/21 20:00 17 91/54 Mechanical Ventilator 50 01/22/21 20:00 Mechanical Ventilator 01/22/21 20:00 73 01/22/21 19:17 74 22 60 01/22/21 19:00 74 22 85/49 (61) 97 01/22/21 19:00 22 85/49 Mechanical Ventilator 50 01/22/21 19:00 22 85/49 Mechanical Ventilator 50 01/22/21 18:33 22 87/53 Mechanical Ventilator 50 01/22/21 18:15 80 0 84/47 (59) 93 01/22/21 18:14 100.0 01/22/21 18:13 22 92/47 Mechanical Ventilator 50 01/22/21 18:00 22 83/46 Mechanical Ventilator 50 01/22/21 17:00 22 95/54 Mechanical Ventilator 50 01/22/21 17:00 22 95/54 Mechanical Ventilator 50 01/22/21 17:00 79 22 95/54 (68) 93 01/22/21 16:43 22 94/56 50 01/22/21 16:43 22 95/74 Mechanical Ventilator 50 01/22/21 16:00 74 01/22/21 16:00 100.5 84 22 86/46 (59) 94 01/22/21 16:00 50 01/22/21 16:00 22 86/46 50 01/22/21 16:00 22 86/46 Mechanical Ventilator 50 01/22/21 16:00 Mechanical Ventilator 01/22/21 15:21 89 22 60 01/22/21 15:00 22 91/56 Mechanical Ventilator 50 01/22/21 15:00 22 91/56 Mechanical Ventilator 50 01/22/21 15:00 75 22 91/56 (68) 92 01/22/21 14:00 83 22 87/46 (60) 93 01/22/21 14:00 22 87/46 Mechanical Ventilator 50 01/22/21 14:00 22 87/46 Mechanical Ventilator 50 01/22/21 13:00 77 22 90/52 (65) 91 01/22/21 13:00 23 90/52 Mechanical Ventilator 50 01/22/21 13:00 22 90/52 Mechanical Ventilator 50 01/22/21 12:15 60 01/22/21 12:00 50 01/22/21 12:00 70 01/22/21 12:00 22 115/85 Mechanical Ventilator 50 01/22/21 12:00 22 115/85 Mechanical Ventilator 50 01/22/21 12:00 Mechanical Ventilator 01/22/21 12:00 71 22 115/70 (85) 89 01/22/21 11:00 89 14 115/70 (85) 93 01/22/21 11:00 14 115/70 Mechanical Ventilator 50 01/22/21 11:00 14 115/70 Mechanical Ventilator 50 01/22/21 10:49 86 22 50 01/22/21 10:00 70 22 114/75 (88) 97 01/22/21 10:00 22 114/75 Mechanical Ventilator 50 01/22/21 10:00 22 114/75 Mechanical Ventilator 50 Height (Feet): 5 Height (Inches): 5.00 Weight (Pounds): 233 Gen: NAD on Vent 65% O2 HEENT: NCAT, ETT CV: RRR Pulm: BL chest rise, RRR Ext: No c/c/e Skin: No visible rashes Neuro: Sedated Laboratory Tests Test 01/23/21 03:00 White Blood Count 11.4 K/UL (4.8-10.8) H Red Blood Count 4.75 M/UL (4.70-6.10) Hemoglobin 13.5 G/DL (14.2-18.0) L Hematocrit 43.6 % (42.0-52.0) Mean Corpuscular Volume 92 FL (80-99) Mean Corpuscular Hemoglobin 28.5 PG (27.0-31.0) Mean Corpuscular Hemoglobin Concent 31.0 G/DL (32.0-36.0) L Red Cell Distribution Width 15.3 % (11.6-14.8) H Platelet Count 259 K/UL (150-450) Mean Platelet Volume 9.0 FL (6.5-10.1) Neutrophils (%) (Auto) 65.2 % (45.0-75.0) Lymphocytes (%) (Auto) 22.6 % (20.0-45.0) Monocytes (%) (Auto) 8.0 % (1.0-10.0) Eosinophils (%) (Auto) 1.6 % (0.0-3.0) Basophils (%) (Auto) 2.6 % (0.0-2.0) H Prothrombin Time 27.9 SEC (9.30-11.50) H Prothromb Time International Ratio 2.7 (0.9-1.1) H Sodium Level 143 MMOL/L (136-145) Potassium Level 3.8 MMOL/L (3.5-5.1) Chloride Level 104 MMOL/L (98-107) Carbon Dioxide Level 25 MMOL/L (21-32) Anion Gap 15 mmol/L (5-15) Blood Urea Nitrogen 13 mg/dL (7-18) Creatinine 0.9 MG/DL (0.55-1.30) Estimat Glomerular Filtration Rate > 60 mL/min (>60) Glucose Level 188 MG/DL (74-106) H Calcium Level 8.8 MG/DL (8.5-10.1) Phosphorus Level 3.7 MG/DL (2.5-4.9) Magnesium Level 1.7 MG/DL (1.8-2.4) L Total Bilirubin 0.4 MG/DL (0.2-1.0) Aspartate Amino Transf (AST/SGOT) 19 U/L (15-37) Alanine Aminotransferase (ALT/SGPT) 24 U/L (12-78) Alkaline Phosphatase 59 U/L (46-116) C-Reactive Protein, Quantitative 11.8 mg/dL (0.00-0.90) H Pro-B-Type Natriuretic Peptide 162 pg/mL (0-125) H Total Protein 7.0 G/DL (6.4-8.2) Albumin 2.4 G/DL (3.4-5.0) L Globulin 4.6 g/dL Albumin/Globulin Ratio 0.5 (1.0-2.7) L Current Medications Medications (Trade) Dose Ordered Sig/Johnny Route PRN Reason Start Time Stop Time Status Last Admin Dose Admin Acetaminophen (Tylenol) 650 mg Q6H PRN NG Temp >100.5 01/09/21 09:15 02/08/21 09:14 01/22/21 23:28 Acetaminophen (Tylenol) 650 mg Q6H PRN NG Mild Pain (Pain Scale 1-3) 01/09/21 09:15 02/08/21 09:14 Albuterol Sulfate (Proventil MDI) 2 puff Q6HRT INH 01/02/21 19:00 04/02/21 18:59 01/23/21 07:24 Benztropine Mesylate (Cogentin) 1 mg EVERY 12 HOURS NG 01/09/21 09:15 02/01/21 09:14 01/23/21 08:39 Chlorhexidine Gluconate (Myranda-Hex 2%) 1 applic DAILY@2000 TOPIC 01/12/21 20:00 04/12/21 19:59 01/22/21 20:35 Dextrose (Dextrose 50%) 25 ml Q30M PRN IV Hypoglycemia 01/06/21 23:45 04/06/21 23:44 Dextrose (Dextrose 50%) 50 ml Q30M PRN IV Hypoglycemia 01/06/21 23:45 04/06/21 23:44 Fentanyl Citrate 250 ml @ 1 mls/hr Q24H IV 01/22/21 05:30 01/24/21 05:29 01/23/21 06:47 Insulin Aspart (NovoLOG) EVERY 6 HOURS SUBQ 01/09/21 12:00 04/04/21 16:29 01/23/21 05:20 Ipratropium [place] (Atrovent Inh) 1 puffs Q6HRT INH 01/02/21 19:00 02/01/21 18:59 01/23/21 07:23 Lansoprazole (Prevacid) 30 mg DAILY GT 01/16/21 09:00 02/15/21 08:59 01/23/21 08:39 Midazolam HCl 200 ml @ 0 mls/hr Q24H PRN IV Agitation (RASS -2) 01/17/21 00:00 01/24/21 00:00 01/23/21 06:18 Midodrine (Pro-Amatine) 10 mg Q8HR ORAL 01/20/21 14:00 04/20/21 13:59 01/22/21 21:25 Norepinephrine Bitartrate 250 ml @ 0 mls/hr Q24H PRN IV hypotension 01/22/21 22:45 01/25/21 22:45 01/23/21 06:17 Ondansetron HCl (Zofran) 4 mg Q4H PRN IVP Nausea & Vomiting 01/02/21 08:15 02/01/21 08:14 Phenylephrine HCl 50 mg/Dextrose 250 ml @ 0 mls/hr Q24H PRN IV hypotension 01/22/21 22:45 01/25/21 22:45 Potassium Chloride (K-Dur) 20 meq TWICE A DAY NG 01/20/21 13:00 04/20/21 12:59 01/23/21 08:39 Quetiapine Fumarate (SEROqueL) 100 mg Q12HR ORAL 01/20/21 15:00 03/06/21 14:59 01/23/21 08:39 Valproic Acid (Depakene) 500 mg Q12HR GT 01/22/21 21:00 02/21/21 20:59 01/23/21 08:38 Warfarin Sodium (Coumadin per pharmacy) 1 ea DAILY PRN MISC Per rx protocol 01/02/21 08:30 02/01/21 08:29 Warfarin Sodium (Coumadin) 2.5 mg COUMADIN ORAL 01/23/21 17:00 01/23/21 19:00 Anuel Crespo MD Jan 23, 2021 09:39
--- NOTE | 2021-01-23 11:42 | Nephrology Progress Note ---
Assessment/Plan Problem List: (1) Hyperkalemia (2) Pneumonia due to COVID-19 virus (3) Respiratory failure with hypoxia (4) Obesity (5) Schizophrenia (6) DMII (diabetes mellitus, type 2) Assessment Hyperkalemia Stable renal parameters Hyperglycemia Covid pneumonia due to COVID-19 virus Acute respiratory failure with hypoxia requiring mechanical ventilation History of COPD History of DVT, pulmonary emboli Obese Hypertension History of diabetes Psych condition, schizophrenia, bipolar disease Plan January 23: Patient on prone position. IntubatedFiO2 65%. Renal parameters stable. Continue per consultants. Date hospitalization. Possible trach?. January 22: FiO2 50%. Prone position. Labs reviewed. Stable from renal standpoint of view. Continue per consultants. January 21: Full code. Intubated on ventilator. FiO2 40%. Labs reviewed. Renal parameters stable. Continue per consultants. January 20: Status unchanged. Full code. On ventilator. Chest x-ray reviewed. IV fluid discontinued. Potassium supplement given. 1 dose of Lasix given. Albumin bolus given. Midodrine started. Will monitor renal parameters and electrolytes. Discussed with JOHAN Mohamud. January 19: Labs reviewed. Renal parameters stable. Remains full code intubated on ventilator. FiO2 50%. Continue per consultants. January 18: Full code. Intubated. On ventilator. FiO2 down to 35%. No labs drawn today. Continue to monitor renal parameters and electrolytes. January 17: Full code. Intubated on ventilator. FiO2 remains at 60%. Labs reviewed. Renal parameters stable. January 16: Full code. Intubated. Labs reviewed. Renal parameters stable. FiO2 60%. Continue per consultants. January 15: Patient remains intubated and full code. Labs reviewed. Stable renal parameters. January 14: Patient full code. Intubated on ventilator. On prone position until 5 PM. Labs reviewed. Stable from renal standpoint of view. January 13: Labs reviewed. Renal parameters stable. Continue per consultants. Patient remain full code and intubated on ventilator. January 12: Labs reviewed. Renal parameters stable. Patient remains full code. Remains intubated on ventilator and on prone position. Continue per consultants. January 11: Labs reviewed. Renal parameters stable. Continue per consultants. January 10: Labs reviewed. Renal parameters stable. Continue per consultants. Change IV to half-normal saline Kayexalate via NG tube for high potassium Monitor electrolytes and renal parameters Per orders, per consultants Subjective ROS Limited/Unobtainable: Yes Objective Objective Last 24 Hour Vital Signs Date Time Temp Pulse Resp B/P (MAP) Pulse Ox O2 Delivery O2 Flow Rate FiO2 01/23/21 11:10 22 112/72 Mechanical Ventilator 65 01/23/21 10:00 100.0 87 22 112/72 (85) 99 01/23/21 09:30 87 22 117/76 (90) 99 01/23/21 09:00 81 22 119/84 (96) 100 01/23/21 08:30 62 22 137/81 (99) 100 01/23/21 08:00 84 22 138/88 (105) 100 01/23/21 08:00 Mechanical Ventilator 01/23/21 08:00 85 01/23/21 08:00 65 01/23/21 07:30 66 22 138/86 (103) 100 01/23/21 07:23 68 21 65 01/23/21 07:00 68 22 132/83 (99) 100 01/23/21 07:00 22 132/83 Endotracheal Tube 65 01/23/21 07:00 22 132/83 Mechanical Ventilator 65 01/23/21 06:47 22 135/83 Endotracheal Tube 65 01/23/21 06:18 22 145/79 Mechanical Ventilator 65 01/23/21 06:17 145/79 01/23/21 06:00 62 22 145/79 (101) 100 01/23/21 06:00 22 144/79 Mechanical Ventilator 65 01/23/21 06:00 22 144/79 Mechanical Ventilator 65 01/23/21 05:46 72 22 65 01/23/21 05:30 61 22 146/77 (100) 100 01/23/21 05:15 62 22 141/81 (101) 100 01/23/21 05:00 22 144/79 Mechanical Ventilator 65 01/23/21 05:00 22 141/81 Mechanical Ventilator 65 01/23/21 05:00 66 22 128/78 (95) 100 01/23/21 04:30 68 22 138/83 (101) 100 01/23/21 04:00 22 130/86 Endotracheal Tube 60 01/23/21 04:00 22 130/86 Mechanical Ventilator 70 01/23/21 04:00 Mechanical Ventilator 01/23/21 04:00 67 2/24/21 04:00 70 01/23/21 04:00 99.8 67 22 130/86 (101) 99 01/23/21 03:30 71 22 135/78 (97) 99 01/23/21 03:18 69 22 65 01/23/21 03:00 69 22 132/81 (98) 100 01/23/21 03:00 22 132/81 Endotracheal Tube 60 01/23/21 03:00 22 132/81 Mechanical Ventilator 70 01/23/21 02:30 72 22 133/81 (98) 100 01/23/21 02:02 28 137/78 Mechanical Ventilator 90 01/23/21 02:00 22 137/78 Endotracheal Tube 60 01/23/21 02:00 22 137/78 Mechanical Ventilator 70 01/23/21 02:00 70 22 137/78 (97) 100 01/23/21 01:22 71 22 65 01/23/21 01:00 22 142/78 Mechanical Ventilator 100 01/23/21 01:00 22 142/78 Mechanical Ventilator 90 01/23/21 00:45 71 22 138/75 (96) 100 01/23/21 00:34 96 18 89/58 (68) 01/23/21 00:15 67 22 123/74 (90) 96 01/23/21 00:04 65 20 125/73 (90) 93 01/23/21 00:00 69 01/23/21 00:00 100.0 73 0 85/52 (63) 91 01/23/21 00:00 21 125/73 Mechanical Ventilator 100 01/23/21 00:00 21 125/73 Mechanical Ventilator 100 01/23/21 00:00 Mechanical Ventilator 01/22/21 23:58 100.0 01/22/21 23:51 87/56 01/22/21 23:00 75 22 87/56 (66) 90 01/22/21 23:00 13 87/56 Mechanical Ventilator 65 01/22/21 23:00 13 87/56 Mechanical Ventilator 65 01/22/21 22:38 72 22 65 01/22/21 22:00 12 94/61 Mechanical Ventilator 65 01/22/21 22:00 12 94/61 Mechanical Ventilator 65 01/22/21 22:00 73 14 93/59 (70) 91 2/23/21 21:15 71 22 65 01/22/21 21:00 72 15 92/58 (69) 91 01/22/21 21:00 18 94/59 Mechanical Ventilator 50 01/22/21 21:00 18 94/59 Mechanical Ventilator 50 01/22/21 20:45 72 17 93/57 (69) 92 01/22/21 20:30 73 10 87/55 (66) 91 01/22/21 20:15 73 10 91/54 (66) 91 01/22/21 20:00 50 01/22/21 20:00 100.0 75 7 87/51 (63) 91 01/22/21 20:00 17 91/54 Mechanical Ventilator 50 01/22/21 20:00 17 91/54 Mechanical Ventilator 50 01/22/21 20:00 Mechanical Ventilator 01/22/21 20:00 73 01/22/21 19:17 74 22 60 01/22/21 19:00 74 22 85/49 (61) 97 01/22/21 19:00 22 85/49 Mechanical Ventilator 50 01/22/21 19:00 22 85/49 Mechanical Ventilator 50 01/22/21 18:33 22 87/53 Mechanical Ventilator 50 01/22/21 18:15 80 0 84/47 (59) 93 01/22/21 18:14 100.0 01/22/21 18:13 22 92/47 Mechanical Ventilator 50 01/22/21 18:00 22 83/46 Mechanical Ventilator 50 01/22/21 17:00 22 95/54 Mechanical Ventilator 50 01/22/21 17:00 22 95/54 Mechanical Ventilator 50 01/22/21 17:00 79 22 95/54 (68) 93 01/22/21 16:43 22 94/56 50 01/22/21 16:43 22 95/74 Mechanical Ventilator 50 01/22/21 16:00 74 01/22/21 16:00 100.5 84 22 86/46 (59) 94 01/22/21 16:00 50 01/22/21 16:00 22 86/46 50 01/22/21 16:00 22 86/46 Mechanical Ventilator 50 01/22/21 16:00 Mechanical Ventilator 01/22/21 15:21 89 22 60 01/22/21 15:00 22 91/56 Mechanical Ventilator 50 01/22/21 15:00 22 91/56 Mechanical Ventilator 50 01/22/21 15:00 75 22 91/56 (68) 92 01/22/21 14:00 83 22 87/46 (60) 93 01/22/21 14:00 22 87/46 Mechanical Ventilator 50 01/22/21 14:00 22 87/46 Mechanical Ventilator 50 01/22/21 13:00 77 22 90/52 (65) 91 01/22/21 13:00 23 90/52 Mechanical Ventilator 50 01/22/21 13:00 22 90/52 Mechanical Ventilator 50 01/22/21 12:15 60 01/22/21 12:00 50 01/22/21 12:00 70 01/22/21 12:00 22 115/85 Mechanical Ventilator 50 01/22/21 12:00 22 115/85 Mechanical Ventilator 50 01/22/21 12:00 Mechanical Ventilator 01/22/21 12:00 71 22 115/70 (85) 89 Intake and Output 01/22/21 01/23/21 19:00 07:00 Intake Total 1407 ml 1244.5 ml Output Total 700 ml 2050 ml Balance 707 ml -805.5 ml Free Water 300 ml 120 ml IV Total 507 ml 884.5 ml Tube Feeding 540 ml 240 ml Other 60 ml Output Urine Total 700 ml 2050 ml Current Medications Medications (Trade) Dose Ordered Sig/Johnny Route PRN Reason Start Time Stop Time Status Last Admin Dose Admin Acetaminophen (Tylenol) 650 mg Q6H PRN NG Temp >100.5 01/09/21 09:15 02/08/21 09:14 01/22/21 23:28 Acetaminophen (Tylenol) 650 mg Q6H PRN NG Mild Pain (Pain Scale 1-3) 01/09/21 09:15 02/08/21 09:14 Albuterol Sulfate (Proventil MDI) 2 puff Q6HRT INH 01/02/21 19:00 04/02/21 18:59 01/23/21 07:24 Benztropine Mesylate (Cogentin) 1 mg EVERY 12 HOURS NG 01/09/21 09:15 02/01/21 09:14 01/23/21 08:39 Chlorhexidine Gluconate (Myranda-Hex 2%) 1 applic DAILY@2000 TOPIC 01/12/21 20:00 04/12/21 19:59 01/22/21 20:35 Dextrose (Dextrose 50%) 25 ml Q30M PRN IV Hypoglycemia 01/06/21 23:45 04/06/21 23:44 Dextrose (Dextrose 50%) 50 ml Q30M PRN IV Hypoglycemia 01/06/21 23:45 04/06/21 23:44 Fentanyl Citrate 250 ml @ 1 mls/hr Q24H IV 01/22/21 05:30 01/24/21 05:29 01/23/21 06:47 Insulin Aspart (NovoLOG) EVERY 6 HOURS SUBQ 01/09/21 12:00 04/04/21 16:29 01/23/21 05:20 Ipratropium [place] (Atrovent Inh) 1 puffs Q6HRT INH 01/02/21 19:00 02/01/21 18:59 01/23/21 07:23 Lansoprazole (Prevacid) 30 mg DAILY GT 01/24/21 09:00 02/15/21 08:59 Magnesium Sulfate 100 ml @ 100 mls/hr Q1H IVPB 01/23/21 12:00 01/23/21 13:59 Midazolam HCl 200 ml @ 0 mls/hr Q24H PRN IV Agitation (RASS -2) 01/17/21 00:00 01/24/21 00:00 01/23/21 11:10 Midodrine (Pro-Amatine) 10 mg Q8HR ORAL 01/20/21 14:00 04/20/21 13:59 01/22/21 21:25 Norepinephrine Bitartrate 250 ml @ 0 mls/hr Q24H PRN IV hypotension 01/22/21 22:45 01/25/21 22:45 01/23/21 06:17 Ondansetron HCl (Zofran) 4 mg Q4H PRN IVP Nausea & Vomiting 01/02/21 08:15 02/01/21 08:14 Phenylephrine HCl 50 mg/Dextrose 250 ml @ 0 mls/hr Q24H PRN IV hypotension 01/22/21 22:45 01/25/21 22:45 Potassium Chloride (K-Dur) 20 meq TWICE A DAY NG 01/20/21 13:00 04/20/21 12:59 01/23/21 08:39 Quetiapine Fumarate (SEROqueL) 100 mg Q12HR ORAL 01/20/21 15:00 03/06/21 14:59 01/23/21 08:39 Valproic Acid (Depakene) 500 mg Q12HR GT 01/22/21 21:00 02/21/21 20:59 01/23/21 08:38 Warfarin Sodium (Coumadin per pharmacy) 1 ea DAILY PRN MISC Per rx protocol 01/02/21 08:30 02/01/21 08:29 Warfarin Sodium (Coumadin) 2.5 mg COUMADIN ORAL 01/23/21 17:00 01/23/21 19:00 Laboratory Tests 01/23/21 03:00: White Blood Count 11.4H, Red Blood Count 4.75, Hemoglobin 13.5L, Hematocrit 43.6, Mean Corpuscular Volume 92, Mean Corpuscular Hemoglobin 28.5, Mean Corpuscular Hemoglobin Concent 31.0L, Red Cell Distribution Width 15.3H, Platelet Count 259, Mean Platelet Volume 9.0, Neutrophils (%) (Auto) 65.2, Lymphocytes (%) (Auto) 22.6, Monocytes (%) (Auto) 8.0, Eosinophils (%) (Auto) 1.6, Basophils (%) (Auto) 2.6H, Prothrombin Time 27.9H, Prothromb Time International Ratio 2.7H, Sodium Level 143, Potassium Level 3.8, Chloride Level 104, Carbon Dioxide Level 25, Anion Gap 15, Blood Urea Nitrogen 13, Creatinine 0.9, Estimat Glomerular Filtration Rate > 60, Glucose Level 188H, Calcium Level 8.8, Phosphorus Level 3.7, Magnesium Level 1.7L, Total Bilirubin 0.4, Aspartate Amino Transf (AST/SGOT) 19, Alanine Aminotransferase (ALT/SGPT) 24, Alkaline Phosphatase 59, C-Reactive Protein, Quantitative 11.8H, Pro-B-Type Natriuretic Peptide 162H, Total Protein 7.0, Albumin 2.4L, Globulin 4.6, Albumin/Globulin Ratio 0.5L Height (Feet): 5 Height (Inches): 5.00 Weight (Pounds): 233 General Appearance: no apparent distress EENT: other - Intubated on ventilator Cardiovascular: normal rate Respiratory/Chest: decreased breath sounds Abdomen: distended Avi Frye MD Jan 23, 2021 11:42
--- NOTE | 2021-01-23 11:54 | Internal Med Progress Note ---
Subjective Date of Service: Jan 23, 2021 Physician Name Vickey Brown Attending Physician Geovanny Bradley MD Current Medications Medications (Trade) Dose Ordered Sig/Johnny Route PRN Reason Start Time Stop Time Status Last Admin Dose Admin Acetaminophen (Tylenol) 650 mg Q6H PRN NG Temp >100.5 01/09/21 09:15 02/08/21 09:14 01/22/21 23:28 Acetaminophen (Tylenol) 650 mg Q6H PRN NG Mild Pain (Pain Scale 1-3) 01/09/21 09:15 02/08/21 09:14 Albuterol Sulfate (Proventil I) 2 puff Q6HRT INH 01/02/21 19:00 04/02/21 18:59 01/23/21 07:24 Benztropine Mesylate (Cogentin) 1 mg EVERY 12 HOURS NG 01/09/21 09:15 02/01/21 09:14 01/23/21 08:39 Chlorhexidine Gluconate (Myranda-Hex 2%) 1 applic DAILY@2000 TOPIC 01/12/21 20:00 04/12/21 19:59 01/22/21 20:35 Dextrose (Dextrose 50%) 25 ml Q30M PRN IV Hypoglycemia 01/06/21 23:45 04/06/21 23:44 Dextrose (Dextrose 50%) 50 ml Q30M PRN IV Hypoglycemia 01/06/21 23:45 04/06/21 23:44 Fentanyl Citrate 250 ml @ 1 mls/hr Q24H IV 01/22/21 05:30 01/24/21 05:29 01/23/21 06:47 Insulin Aspart (NovoLOG) EVERY 6 HOURS SUBQ 01/09/21 12:00 04/04/21 16:29 01/23/21 05:20 Ipratropium [place] (Atrovent Inh) 1 puffs Q6HRT INH 01/02/21 19:00 02/01/21 18:59 01/23/21 07:23 Lansoprazole (Prevacid) 30 mg DAILY GT 01/24/21 09:00 02/15/21 08:59 Magnesium Sulfate 100 ml @ 100 mls/hr Q1H IVPB 01/23/21 12:00 01/23/21 13:59 Midazolam HCl 200 ml @ 0 mls/hr Q24H PRN IV Agitation (RASS -2) 01/17/21 00:00 01/24/21 00:00 01/23/21 11:10 Midodrine (Pro-Amatine) 10 mg Q8HR ORAL 01/20/21 14:00 04/20/21 13:59 01/22/21 21:25 Norepinephrine Bitartrate 250 ml @ 0 mls/hr Q24H PRN IV hypotension 01/22/21 22:45 01/25/21 22:45 01/23/21 06:17 Ondansetron HCl (Zofran) 4 mg Q4H PRN IVP Nausea & Vomiting 01/02/21 08:15 02/01/21 08:14 Phenylephrine HCl 50 mg/Dextrose 250 ml @ 0 mls/hr Q24H PRN IV hypotension 01/22/21 22:45 01/25/21 22:45 Potassium Chloride (K-Dur) 20 meq TWICE A DAY NG 01/20/21 13:00 04/20/21 12:59 01/23/21 08:39 Quetiapine Fumarate (SEROqueL) 100 mg Q12HR ORAL 01/20/21 15:00 03/06/21 14:59 01/23/21 08:39 Valproic Acid (Depakene) 500 mg Q12HR GT 01/22/21 21:00 02/21/21 20:59 01/23/21 08:38 Warfarin Sodium (Coumadin per pharmacy) 1 ea DAILY PRN MISC Per rx protocol 01/02/21 08:30 02/01/21 08:29 Warfarin Sodium (Coumadin) 2.5 mg COUMADIN ORAL 01/23/21 17:00 01/23/21 19:00 Allergies: Coded Allergies: No Known Allergies (Unverified , 01/02/21) ROS Limited/Unobtainable: Yes Subjective 60 YO M admitted with shortness of breath. Now respiratory failure. Cover for Int Rohit-DR Bradley. ICU. Intubated and sedated Objective Last Vital Signs Date Time Temp Pulse Resp B/P (MAP) Pulse Ox O2 Delivery O2 Flow Rate FiO2 01/23/21 11:10 22 112/72 Mechanical Ventilator 65 01/23/21 11:00 92 01/23/21 10:00 100.0 99 Laboratory Tests Test 01/23/21 03:00 White Blood Count 11.4 K/UL (4.8-10.8) H Red Blood Count 4.75 M/UL (4.70-6.10) Hemoglobin 13.5 G/DL (14.2-18.0) L Hematocrit 43.6 % (42.0-52.0) Mean Corpuscular Volume 92 FL (80-99) Mean Corpuscular Hemoglobin 28.5 PG (27.0-31.0) Mean Corpuscular Hemoglobin Concent 31.0 G/DL (32.0-36.0) L Red Cell Distribution Width 15.3 % (11.6-14.8) H Platelet Count 259 K/UL (150-450) Mean Platelet Volume 9.0 FL (6.5-10.1) Neutrophils (%) (Auto) 65.2 % (45.0-75.0) Lymphocytes (%) (Auto) 22.6 % (20.0-45.0) Monocytes (%) (Auto) 8.0 % (1.0-10.0) Eosinophils (%) (Auto) 1.6 % (0.0-3.0) Basophils (%) (Auto) 2.6 % (0.0-2.0) H Prothrombin Time 27.9 SEC (9.30-11.50) H Prothromb Time International Ratio 2.7 (0.9-1.1) H Sodium Level 143 MMOL/L (136-145) Potassium Level 3.8 MMOL/L (3.5-5.1) Chloride Level 104 MMOL/L (98-107) Carbon Dioxide Level 25 MMOL/L (21-32) Anion Gap 15 mmol/L (5-15) Blood Urea Nitrogen 13 mg/dL (7-18) Creatinine 0.9 MG/DL (0.55-1.30) Estimat Glomerular Filtration Rate > 60 mL/min (>60) Glucose Level 188 MG/DL (74-106) H Calcium Level 8.8 MG/DL (8.5-10.1) Phosphorus Level 3.7 MG/DL (2.5-4.9) Magnesium Level 1.7 MG/DL (1.8-2.4) L Total Bilirubin 0.4 MG/DL (0.2-1.0) Aspartate Amino Transf (AST/SGOT) 19 U/L (15-37) Alanine Aminotransferase (ALT/SGPT) 24 U/L (12-78) Alkaline Phosphatase 59 U/L (46-116) C-Reactive Protein, Quantitative 11.8 mg/dL (0.00-0.90) H Pro-B-Type Natriuretic Peptide 162 pg/mL (0-125) H Total Protein 7.0 G/DL (6.4-8.2) Albumin 2.4 G/DL (3.4-5.0) L Globulin 4.6 g/dL Albumin/Globulin Ratio 0.5 (1.0-2.7) L Intake and Output 01/22/21 01/23/21 19:00 07:00 Intake Total 1407 ml 1244.5 ml Output Total 700 ml 2050 ml Balance 707 ml -805.5 ml Free Water 300 ml 120 ml IV Total 507 ml 884.5 ml Tube Feeding 540 ml 240 ml Other 60 ml Output Urine Total 700 ml 2050 ml Objective Objective General: awake, responsive , confused. HEENT: NCAT, sclera anicteric, PERRL, EOMI. Neck: Supple, no significant jugular venous distention, Lungs: mech vent; decreased air at the bases, occasional crackles, no Wheeze. Heart: Regular rate and rhythm, normal S1/S2, no murmurs Abdomen: soft, nontender, nondistended. Normoactive bowel sound, obesity. / Rectal: Refused and deferred. Extremities: Left LE: No Cyanosis , clubbing or edema. Right LE AKA. Neuro: A&O x 2, Able to move all extremities Skin: warm, no rashes or lesions. Assessment/Plan Assessment/Plan Assessment/Plan Assessment/Plan (1) Pneumonia due to COVID-19 virus ICD Codes: U07.1 - COVID-19; J12.82 - Pneumonia due to coronavirus disease 2019 SNOMED: 384869316081868419 (2) Acute hypercapnic respiratory failure ICD Codes: J96.02 - Acute respiratory failure with hypercapnia SNOMED: 770054450 (3) Respiratory failure with hypoxia ICD Codes: J96.91 - Respiratory failure, unspecified with hypoxia SNOMED: 20390540499129036 Qualifiers: Qualified Codes: J96.01 - Acute respiratory failure with hypoxia (4) COPD (chronic obstructive pulmonary disease) ICD Codes: J44.9 - Chronic obstructive pulmonary disease, unspecified SNOMED: 22120395 (5) History of deep venous thrombosis or pulmonary embolus SNOMED: 302875350 (6) Obesity ICD Codes: E66.9 - Obesity, unspecified SNOMED: 594224641, 046760711 (7) Essential hypertension ICD Codes: I10 - Essential (primary) hypertension SNOMED: 89696314 (8) Diabetes mellitus type 2 in obese ICD Codes: E11.69 - Type 2 diabetes mellitus with other specified complication; E66.9 - Obesity, unspecified SNOMED: 36630378 (9) History of hydrocephalus ICD Codes: Z86.69 - Personal history of other diseases of the nervous system and sense organs SNOMED: 776208864 (10) Schizophrenia ICD Codes: F20.9 - Schizophrenia, unspecified SNOMED: 39284024 (11) Bipolar 1 disorder ICD Codes: F31.9 - Bipolar disorder, unspecified SNOMED: 655705306 (12) Anticoagulant long-term use ICD Codes: 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 Sepsis=gram pos cocci Assessment/Plan: Optimize pulmonary hygiene/mobilize as tolerated Non Rebreather mask>BIPAP>intubated S/P Remdesivir IV S/P Solu-Medrol 40 mg IV twice a day. Abx =S/P zosyn and vanco F/U Cx's Monitor volumes and renal function DVT Px: Coumadin DC IV fluid Start diet Monitor blood glucose level closely. On levophed, fentanyl and propofol drips Pulmonary=Dr Luis ID=Dr Gomez Psych consult=Dr Gallegos Start seroquel at 1/2 previous dose Vickey Brown MD Jan 23, 2021 11:54
--- NOTE | 2021-01-23 13:19 | Surgery Progress Note ---
Surgery Progress Note Subjective Additional Comments worse hypotensive on levophed now not ready for trach Objective Last 24 Hour Vital Signs Date Time Temp Pulse Resp B/P (MAP) Pulse Ox O2 Delivery O2 Flow Rate FiO2 01/23/21 13:02 90 22 97/61 (73) 99 01/23/21 12:30 90 22 95/57 (70) 99 01/23/21 12:00 91 01/23/21 12:00 91 22 96/60 (72) 99 01/23/21 11:30 91 22 100/61 (74) 99 01/23/21 11:10 22 112/72 Mechanical Ventilator 65 01/23/21 11:00 92 22 65 01/23/21 11:00 91 22 103/75 (84) 99 01/23/21 10:30 86 22 112/75 (87) 99 01/23/21 10:00 100.0 87 22 112/72 (85) 99 01/23/21 09:30 87 22 117/76 (90) 99 01/23/21 09:00 81 22 119/84 (96) 100 01/23/21 08:30 62 22 137/81 (99) 100 01/23/21 08:00 84 22 138/88 (105) 100 01/23/21 08:00 Mechanical Ventilator 01/23/21 08:00 85 01/23/21 08:00 65 01/23/21 07:30 66 22 138/86 (103) 100 01/23/21 07:23 68 21 65 01/23/21 07:00 68 22 132/83 (99) 100 01/23/21 07:00 22 132/83 Endotracheal Tube 65 01/23/21 07:00 22 132/83 Mechanical Ventilator 65 01/23/21 06:47 22 135/83 Endotracheal Tube 65 01/23/21 06:18 22 145/79 Mechanical Ventilator 65 01/23/21 06:17 145/79 01/23/21 06:00 62 22 145/79 (101) 100 01/23/21 06:00 22 144/79 Mechanical Ventilator 65 01/23/21 06:00 22 144/79 Mechanical Ventilator 65 01/23/21 05:46 72 22 65 01/23/21 05:30 61 22 146/77 (100) 100 01/23/21 05:15 62 22 141/81 (101) 100 01/23/21 05:00 22 144/79 Mechanical Ventilator 65 01/23/21 05:00 22 141/81 Mechanical Ventilator 65 01/23/21 05:00 66 22 128/78 (95) 100 01/23/21 04:30 68 22 138/83 (101) 100 01/23/21 04:00 22 130/86 Endotracheal Tube 60 01/23/21 04:00 22 130/86 Mechanical Ventilator 70 01/23/21 04:00 Mechanical Ventilator 01/23/21 04:00 67 01/23/21 04:00 70 01/23/21 04:00 99.8 67 22 130/86 (101) 99 01/23/21 03:30 71 22 135/78 (97) 99 01/23/21 03:18 69 22 65 01/23/21 03:00 69 22 132/81 (98) 100 01/23/21 03:00 22 132/81 Endotracheal Tube 60 01/23/21 03:00 22 132/81 Mechanical Ventilator 70 01/23/21 02:30 72 22 133/81 (98) 100 01/23/21 02:02 28 137/78 Mechanical Ventilator 90 01/23/21 02:00 22 137/78 Endotracheal Tube 60 01/23/21 02:00 22 137/78 Mechanical Ventilator 70 01/23/21 02:00 70 22 137/78 (97) 100 01/23/21 01:22 71 22 65 01/23/21 01:00 22 142/78 Mechanical Ventilator 100 01/23/21 01:00 22 142/78 Mechanical Ventilator 90 01/23/21 00:45 71 22 138/75 (96) 100 01/23/21 00:34 96 18 89/58 (68) 01/23/21 00:15 67 22 123/74 (90) 96 01/23/21 00:04 65 20 125/73 (90) 93 01/23/21 00:00 69 01/23/21 00:00 100.0 73 0 85/52 (63) 91 01/23/21 00:00 21 125/73 Mechanical Ventilator 100 01/23/21 00:00 21 125/73 Mechanical Ventilator 100 01/23/21 00:00 Mechanical Ventilator 01/22/21 23:58 100.0 01/22/21 23:51 87/56 01/22/21 23:00 75 22 87/56 (66) 90 01/22/21 23:00 13 87/56 Mechanical Ventilator 65 01/22/21 23:00 13 87/56 Mechanical Ventilator 65 01/22/21 22:38 72 22 65 01/22/21 22:00 12 94/61 Mechanical Ventilator 65 01/22/21 22:00 12 94/61 Mechanical Ventilator 65 01/22/21 22:00 73 14 93/59 (70) 91 01/22/21 21:15 71 22 65 01/22/21 21:00 72 15 92/58 (69) 91 01/22/21 21:00 18 94/59 Mechanical Ventilator 50 01/22/21 21:00 18 94/59 Mechanical Ventilator 50 01/22/21 20:45 72 17 93/57 (69) 92 01/22/21 20:30 73 10 87/55 (66) 91 01/22/21 20:15 73 10 91/54 (66) 91 01/22/21 20:00 50 01/22/21 20:00 100.0 75 7 87/51 (63) 91 01/22/21 20:00 17 91/54 Mechanical Ventilator 50 01/22/21 20:00 17 91/54 Mechanical Ventilator 50 01/22/21 20:00 Mechanical Ventilator 01/22/21 20:00 73 01/22/21 19:17 74 22 60 01/22/21 19:00 74 22 85/49 (61) 97 01/22/21 19:00 22 85/49 Mechanical Ventilator 50 01/22/21 19:00 22 85/49 Mechanical Ventilator 50 01/22/21 18:33 22 87/53 Mechanical Ventilator 50 01/22/21 18:15 80 0 84/47 (59) 93 01/22/21 18:14 100.0 01/22/21 18:13 22 92/47 Mechanical Ventilator 50 01/22/21 18:00 22 83/46 Mechanical Ventilator 50 01/22/21 17:00 22 95/54 Mechanical Ventilator 50 01/22/21 17:00 22 95/54 Mechanical Ventilator 50 01/22/21 17:00 79 22 95/54 (68) 93 01/22/21 16:43 22 94/56 50 01/22/21 16:43 22 95/74 Mechanical Ventilator 50 01/22/21 16:00 74 01/22/21 16:00 100.5 84 22 86/46 (59) 94 01/22/21 16:00 50 01/22/21 16:00 22 86/46 50 01/22/21 16:00 22 86/46 Mechanical Ventilator 50 01/22/21 16:00 Mechanical Ventilator 01/22/21 15:21 89 22 60 01/22/21 15:00 22 91/56 Mechanical Ventilator 50 01/22/21 15:00 22 91/56 Mechanical Ventilator 50 01/22/21 15:00 75 22 91/56 (68) 92 01/22/21 14:00 83 22 87/46 (60) 93 01/22/21 14:00 22 87/46 Mechanical Ventilator 50 01/22/21 14:00 22 87/46 Mechanical Ventilator 50 I&O Intake and Output 01/22/21 01/23/21 19:00 07:00 Intake Total 1407 ml 1244.5 ml Output Total 700 ml 2050 ml Balance 707 ml -805.5 ml Free Water 300 ml 120 ml IV Total 507 ml 884.5 ml Tube Feeding 540 ml 240 ml Other 60 ml Output Urine Total 700 ml 2050 ml Dressing: saturated Cardiovascular: RSR Respiratory: decreased breath sounds Abdomen: soft, non-tender, present bowel sounds Extremities: edema, no tenderness, no cyanosis Laboratory Tests Test 01/23/21 03:00 01/23/21 12:09 White Blood Count 11.4 K/UL (4.8-10.8) H Red Blood Count 4.75 M/UL (4.70-6.10) Hemoglobin 13.5 G/DL (14.2-18.0) L Hematocrit 43.6 % (42.0-52.0) Mean Corpuscular Volume 92 FL (80-99) Mean Corpuscular Hemoglobin 28.5 PG (27.0-31.0) Mean Corpuscular Hemoglobin Concent 31.0 G/DL (32.0-36.0) L Red Cell Distribution Width 15.3 % (11.6-14.8) H Platelet Count 259 K/UL (150-450) Mean Platelet Volume 9.0 FL (6.5-10.1) Neutrophils (%) (Auto) 65.2 % (45.0-75.0) Lymphocytes (%) (Auto) 22.6 % (20.0-45.0) Monocytes (%) (Auto) 8.0 % (1.0-10.0) Eosinophils (%) (Auto) 1.6 % (0.0-3.0) Basophils (%) (Auto) 2.6 % (0.0-2.0) H Prothrombin Time 27.9 SEC (9.30-11.50) H Prothromb Time International Ratio 2.7 (0.9-1.1) H Sodium Level 143 MMOL/L (136-145) Potassium Level 3.8 MMOL/L (3.5-5.1) Chloride Level 104 MMOL/L (98-107) Carbon Dioxide Level 25 MMOL/L (21-32) Anion Gap 15 mmol/L (5-15) Blood Urea Nitrogen 13 mg/dL (7-18) Creatinine 0.9 MG/DL (0.55-1.30) Estimat Glomerular Filtration Rate > 60 mL/min (>60) Glucose Level 188 MG/DL (74-106) H Calcium Level 8.8 MG/DL (8.5-10.1) Phosphorus Level 3.7 MG/DL (2.5-4.9) Magnesium Level 1.7 MG/DL (1.8-2.4) L Total Bilirubin 0.4 MG/DL (0.2-1.0) Aspartate Amino Transf (AST/SGOT) 19 U/L (15-37) Alanine Aminotransferase (ALT/SGPT) 24 U/L (12-78) Alkaline Phosphatase 59 U/L (46-116) C-Reactive Protein, Quantitative 11.8 mg/dL (0.00-0.90) H Pro-B-Type Natriuretic Peptide 162 pg/mL (0-125) H Total Protein 7.0 G/DL (6.4-8.2) Albumin 2.4 G/DL (3.4-5.0) L Globulin 4.6 g/dL Albumin/Globulin Ratio 0.5 (1.0-2.7) L Arterial Blood pH 7.468 (7.350-7.450) Arterial Blood Partial Pressure CO2 41.4 mmHg (35.0-45.0) Arterial Blood Partial Pressure O2 93.9 mmHg (75.0-100.0) Arterial Blood HCO3 29.3 mmol/L (22.0-26.0) H Arterial Blood Oxygen Saturation 97.1 % (95-100) Arterial Blood Base Excess 5.2 (-2-2) H Miguelito Test Positive Plan Problems: (1) COPD (chronic obstructive pulmonary disease) (2) Essential hypertension (3) Schizophrenia (4) Obesity (5) Diabetes mellitus type 2 in obese (6) History of hydrocephalus (7) Anticoagulant long-term use (8) Bipolar 1 disorder (9) History of deep venous thrombosis or pulmonary embolus (10) Acute hypercapnic respiratory failure (11) Sepsis Assessment & Plan: 60-year-old male Covid positive respiratory insufficiency a nd severe decline being prone intubated on vent support labs noted septic ill- appearing has been developing wound around the face from ET tube.Receiv ed report from RT pt is being proned and was observed to have developed a blood blister under vent tape on L cheek and L earlobe. Skin assessed and pt was observed to have a blood blister that is 50% de-capped,50% intact. Intact Blood Blister noted to L earlobe. Skin Barrier applied to affected areas. Optifoam Thin foam placed between vent anchor and pt's skin. Optifoam thin placed to R cheek under Vent tape, on Bridge of nose and both earlobes. Given patient's critical status current care plan and findings nutritional optimization is strongly encouraged Covid nutrition plan initiated. All Covid precautions are being taken. Imaging reviewed. Will follow with care plan. Thank you [facility] participation care Tx.Plan: Maintain Optifoam Thin foam to R and L cheeks,Bridge of Nose and Both Ears . Change every 7 days and prn.( May request Optifoam Thin from RT dept). APM/PEPE Mattress overlay DAILY ESTIMATED NEEDS: Needs based on Critical care, pulmonary, obese 73.7kg abw 22-28 kcals/kg [phone] total kcals 1.2-2 g protein/kg 88-147 g total protein 25-30 mL/kg 5884-7215 total fluid mLs NUTRITION DIAGNOSIS: Altered nutrition related lab values r/t steroidal meds, clinical status as evidenced by febrile on adm (102.5), elevated BG (270 287) on solumedrol, elevated lipid panel (Triglycerides 333, Chol 370, LDL 150). CURRENT TF:Vital @30ml/hr, now Nepro @30 ENTERAL NUTRITION RECOMMENDATIONS: NEPRO @30ml/hr while supine to provide x8 hrs feeds: 360ml, 648 kcal, 29g pro, 262ml free H2O - Feed at rate best tolerated, currently not meeting est needs d/t proning and aspiration risk w/ supine feeds limited to 8hrs/day. - W/ reduced aspiration risk rec feedings to total Volume of 900ml/day of Nepro as medically able. - Monitor tolerance, position/HOB >30 degrees, hemodynamic stability and ability to increase to meet est kcal and pro needs. - With increase pressor support, rec trophic feeds of 10ml/hr for gut integrity. - When tolerating TF at goal add Prosource BID to better meet est pro needs. ADDITIONAL RECOMMENDATIONS: 1) Now intubated, TF recs above when off proning (8hrs feeds) 2) Obtain calibrated bedscale wts 3) HgA1C/ elevated BG Need for niss while on D5 4) Lytes daily; replete as needed 5) Monitor triglycerides, TF tolerance, hemodynamic stability. (12) Respiratory failure with hypoxia (13) Pneumonia due to COVID-19 virus (14) Hyperkalemia (15) DMII (diabetes mellitus, type 2) Ki Strong Jan 23, 2021 13:19
[2021-01-23] MEDS ORDERED: Warfarin Sodium 2.5mg ORAL SCH (17:00)
--- NOTE | 2021-01-23 19:29 | Pulmonology Progress Note ---
Subjective ROS Limited/Unobtainable: Yes Allergies: Coded Allergies: No Known Allergies (Unverified , 01/02/21) Objective Last 24 Hour Vital Signs Date Time Temp Pulse Resp B/P (MAP) Pulse Ox O2 Delivery O2 Flow Rate FiO2 01/23/21 19:04 86 22 65 01/23/21 19:00 84 22 104/58 (73) 97 01/23/21 19:00 22 104/58 Mechanical Ventilator 65 01/23/21 19:00 22 104/58 Mechanical Ventilator 65 01/23/21 18:00 22 98/58 Mechanical Ventilator 65 01/23/21 18:00 22 98/58 Mechanical Ventilator 65 01/23/21 18:00 81 22 98/58 (71) 97 01/23/21 17:01 22 104/57 Mechanical Ventilator 65 01/23/21 17:00 81 22 103/59 (74) 97 01/23/21 17:00 104/57 01/23/21 17:00 22 107/57 Mechanical Ventilator 65 01/23/21 17:00 22 104/57 Mechanical Ventilator 65 01/23/21 16:30 80 22 104/57 (73) 97 01/23/21 16:00 80 01/23/21 16:00 22 103/57 Mechanical Ventilator 65 01/23/21 16:00 22 103/57 Mechanical Ventilator 65 01/23/21 16:00 100.0 80 22 103/57 (72) 96 01/23/21 16:00 65 01/23/21 16:00 Mechanical Ventilator 01/23/21 15:45 22 100/64 Mechanical Ventilator 65 01/23/21 15:45 22 100/64 Mechanical Ventilator 65 01/23/21 15:30 22 98/58 Mechanical Ventilator 65 01/23/21 15:30 22 98/58 Mechanical Ventilator 65 01/23/21 15:16 90 22 65 01/23/21 15:15 22 96/59 Mechanical Ventilator 65 01/23/21 15:15 22 96/59 Mechanical Ventilator 65 01/23/21 15:00 91 13 104/5 (38) 99 01/23/21 15:00 21 104/51 Mechanical Ventilator 65 01/23/21 15:00 21 104/51 Mechanical Ventilator 65 01/23/21 14:00 22 96/60 Mechanical Ventilator 65 01/23/21 14:00 22 96/60 Mechanical Ventilator 65 01/23/21 14:00 91 22 96/60 (72) 99 01/23/21 13:39 91 22 65 01/23/21 13:02 90 22 97/61 (73) 99 01/23/21 13:00 99.8 90 22 97/61 (73) 99 01/23/21 13:00 22 97/61 Mechanical Ventilator 65 01/23/21 13:00 22 97/61 Mechanical Ventilator 65 01/23/21 12:30 90 22 95/57 (70) 99 01/23/21 12:00 91 01/23/21 12:00 22 97/60 Mechanical Ventilator 65 01/23/21 12:00 22 97/60 65 01/23/21 12:00 65 01/23/21 12:00 Mechanical Ventilator 01/23/21 12:00 91 22 96/60 (72) 99 01/23/21 11:30 91 22 100/61 (74) 99 01/23/21 11:10 22 112/72 Mechanical Ventilator 65 01/23/21 11:00 22 113/73 Mechanical Ventilator 65 01/23/21 11:00 22 113/73 Mechanical Ventilator 65 01/23/21 11:00 92 22 65 01/23/21 11:00 91 22 103/75 (84) 99 01/23/21 10:30 86 22 112/75 (87) 99 01/23/21 10:00 100.0 87 22 112/72 (85) 99 01/23/21 10:00 22 112/72 Mechanical Ventilator 65 01/23/21 10:00 22 112/72 Mechanical Ventilator 65 01/23/21 09:30 87 22 117/76 (90) 99 01/23/21 09:00 81 22 119/84 (96) 100 01/23/21 09:00 22 130/83 Mechanical Ventilator 65 01/23/21 09:00 22 130/83 Mechanical Ventilator 65 01/23/21 08:30 62 22 137/81 (99) 100 01/23/21 08:00 84 22 138/88 (105) 100 01/23/21 08:00 Mechanical Ventilator 01/23/21 08:00 85 01/23/21 08:00 22 134/81 Mechanical Ventilator 65 01/23/21 08:00 22 134/81 Mechanical Ventilator 65 01/23/21 08:00 65 01/23/21 07:30 66 22 138/86 (103) 100 01/23/21 07:23 68 21 65 01/23/21 07:00 68 22 132/83 (99) 100 01/23/21 07:00 22 132/83 Endotracheal Tube 65 01/23/21 07:00 22 132/83 Mechanical Ventilator 65 01/23/21 06:47 22 135/83 Endotracheal Tube 65 01/23/21 06:18 22 145/79 Mechanical Ventilator 65 01/23/21 06:17 145/79 01/23/21 06:00 62 22 145/79 (101) 100 01/23/21 06:00 22 144/79 Mechanical Ventilator 65 01/23/21 06:00 22 144/79 Mechanical Ventilator 65 01/23/21 05:46 72 22 65 01/23/21 05:30 61 22 146/77 (100) 100 01/23/21 05:15 62 22 141/81 (101) 100 01/23/21 05:00 22 144/79 Mechanical Ventilator 65 01/23/21 05:00 22 141/81 Mechanical Ventilator 65 01/23/21 05:00 66 22 128/78 (95) 100 01/23/21 04:30 68 22 138/83 (101) 100 01/23/21 04:00 22 130/86 Endotracheal Tube 60 01/23/21 04:00 22 130/86 Mechanical Ventilator 70 01/23/21 04:00 Mechanical Ventilator 01/23/21 04:00 67 01/23/21 04:00 70 01/23/21 04:00 99.8 67 22 130/86 (101) 99 01/23/21 03:30 71 22 135/78 (97) 99 01/23/21 03:18 69 22 65 01/23/21 03:00 69 22 132/81 (98) 100 01/23/21 03:00 22 132/81 Endotracheal Tube 60 01/23/21 03:00 22 132/81 Mechanical Ventilator 70 01/23/21 02:30 72 22 133/81 (98) 100 01/23/21 02:02 28 137/78 Mechanical Ventilator 90 01/23/21 02:00 22 137/78 Endotracheal Tube 60 01/23/21 02:00 22 137/78 Mechanical Ventilator 70 01/23/21 02:00 70 22 137/78 (97) 100 01/23/21 01:22 71 22 65 01/23/21 01:00 22 142/78 Mechanical Ventilator 100 01/23/21 01:00 22 142/78 Mechanical Ventilator 90 01/23/21 00:45 71 22 138/75 (96) 100 01/23/21 00:34 96 18 89/58 (68) 01/23/21 00:15 67 22 123/74 (90) 96 01/23/21 00:04 65 20 125/73 (90) 93 01/23/21 00:00 69 01/23/21 00:00 100.0 73 0 85/52 (63) 91 01/23/21 00:00 21 125/73 Mechanical Ventilator 100 01/23/21 00:00 21 125/73 Mechanical Ventilator 100 01/23/21 00:00 Mechanical Ventilator 01/22/21 23:58 100.0 01/22/21 23:51 87/56 01/22/21 23:00 75 22 87/56 (66) 90 01/22/21 23:00 13 87/56 Mechanical Ventilator 65 01/22/21 23:00 13 87/56 Mechanical Ventilator 65 01/22/21 22:38 72 22 65 01/22/21 22:00 12 94/61 Mechanical Ventilator 65 01/22/21 22:00 12 94/61 Mechanical Ventilator 65 01/22/21 22:00 73 14 93/59 (70) 91 01/22/21 21:15 71 22 65 01/22/21 21:00 72 15 92/58 (69) 91 01/22/21 21:00 18 94/59 Mechanical Ventilator 50 01/22/21 21:00 18 94/59 Mechanical Ventilator 50 01/22/21 20:45 72 17 93/57 (69) 92 01/22/21 20:30 73 10 87/55 (66) 91 01/22/21 20:15 73 10 91/54 (66) 91 01/22/21 20:00 50 01/22/21 20:00 100.0 75 7 87/51 (63) 91 01/22/21 20:00 17 91/54 Mechanical Ventilator 50 01/22/21 20:00 17 91/54 Mechanical Ventilator 50 01/22/21 20:00 Mechanical Ventilator 01/22/21 20:00 73 Intake and Output 01/22/21 01/23/21 19:00 07:00 Intake Total 1407 ml 1244.5 ml Output Total 700 ml 2050 ml Balance 707 ml -805.5 ml Free Water 300 ml 120 ml IV Total 507 ml 884.5 ml Tube Feeding 540 ml 240 ml Other 60 ml Output Urine Total 700 ml 2050 ml Laboratory Tests 01/23/21 03:00: White Blood Count 11.4H, Red Blood Count 4.75, Hemoglobin 13.5L, Hematocrit 43.6, Mean Corpuscular Volume 92, Mean Corpuscular Hemoglobin 28.5, Mean Corpuscular Hemoglobin Concent 31.0L, Red Cell Distribution Width 15.3H, Platelet Count 259, Mean Platelet Volume 9.0, Neutrophils (%) (Auto) 65.2, Lymphocytes (%) (Auto) 22.6, Monocytes (%) (Auto) 8.0, Eosinophils (%) (Auto) 1.6, Basophils (%) (Auto) 2.6H, Prothrombin Time 27.9H, Prothromb Time International Ratio 2.7H, Sodium Level 143, Potassium Level 3.8, Chloride Level 104, Carbon Dioxide Level 25, Anion Gap 15, Blood Urea Nitrogen 13, Creatinine 0.9, Estimat Glomerular Filtration Rate > 60, Glucose Level 188H, Calcium Level 8.8, Phosphorus Level 3.7, Magnesium Level 1.7L, Total Bilirubin 0.4, Aspartate Amino Transf (AST/SGOT) 19, Alanine Aminotransferase (ALT/SGPT) 24, Alkaline Phosphatase 59, C-Reactive Protein, Quantitative 11.8H, Pro-B-Type Natriuretic Peptide 162H, Total Protein 7.0, Albumin 2.4L, Globulin 4.6, Albumin/Globulin Ratio 0.5L 01/23/21 12:09: Arterial Blood pH 7.468H, Arterial Blood Partial Pressure CO2 41.4, Arterial Blood Partial Pressure O2 93.9, Arterial Blood HCO3 29.3H, Arterial Blood Oxygen Saturation 97.1, Arterial Blood Base Excess 5.2H, Miguelito Test Positive Current Medications Medications (Trade) Dose Ordered Sig/Johnny Route PRN Reason Start Time Stop Time Status Last Admin Dose Admin Acetaminophen (Tylenol) 650 mg Q6H PRN NG Temp >100.5 01/09/21 09:15 02/08/21 09:14 01/22/21 23:28 Acetaminophen (Tylenol) 650 mg Q6H PRN NG Mild Pain (Pain Scale 1-3) 01/09/21 09:15 02/08/21 09:14 Albuterol Sulfate (Proventil MDI) 2 puff Q6HRT INH 01/02/21 19:00 04/02/21 18:59 01/23/21 19:04 Benztropine Mesylate (Cogentin) 1 mg EVERY 12 HOURS NG 01/09/21 09:15 02/01/21 09:14 01/23/21 08:39 Chlorhexidine Gluconate (Myranda-Hex 2%) 1 applic DAILY@2000 TOPIC 01/12/21 20:00 04/12/21 19:59 01/22/21 20:35 Dextrose (Dextrose 50%) 25 ml Q30M PRN IV Hypoglycemia 01/06/21 23:45 04/06/21 23:44 Dextrose (Dextrose 50%) 50 ml Q30M PRN IV Hypoglycemia 01/06/21 23:45 04/06/21 23:44 Fentanyl Citrate 250 ml @ 1 mls/hr Q24H IV 01/22/21 05:30 01/24/21 05:29 01/23/21 06:47 Insulin Aspart (NovoLOG) EVERY 6 HOURS SUBQ 01/09/21 12:00 04/04/21 16:29 01/23/21 18:29 Ipratropium [place] (Atrovent Inh) 1 puffs Q6HRT INH 01/02/21 19:00 02/01/21 18:59 01/23/21 19:03 Lansoprazole (Prevacid) 30 mg DAILY GT 01/24/21 09:00 02/15/21 08:59 Midazolam HCl 200 ml @ 0 mls/hr Q24H PRN IV Agitation (RASS -2) 01/17/21 00:00 01/24/21 00:00 01/23/21 17:01 Midodrine (Pro-Amatine) 10 mg Q8HR ORAL 01/20/21 14:00 04/20/21 13:59 01/23/21 13:44 Norepinephrine Bitartrate 250 ml @ 0 mls/hr Q24H PRN IV hypotension 01/22/21 22:45 01/25/21 22:45 01/23/21 17:00 Ondansetron HCl (Zofran) 4 mg Q4H PRN IVP Nausea & Vomiting 01/02/21 08:15 02/01/21 08:14 Phenylephrine HCl 50 mg/Dextrose 250 ml @ 0 mls/hr Q24H PRN IV hypotension 01/22/21 22:45 01/25/21 22:45 Potassium Chloride (K-Dur) 20 meq TWICE A DAY NG 01/20/21 13:00 04/20/21 12:59 01/23/21 17:05 Quetiapine Fumarate (SEROqueL) 100 mg Q12HR ORAL 01/20/21 15:00 03/06/21 14:59 01/23/21 08:39 Valproic Acid (Depakene) 500 mg Q12HR GT 01/22/21 21:00 02/21/21 20:59 01/23/21 08:38 Warfarin Sodium (Coumadin per pharmacy) 1 ea DAILY PRN MISC Per rx protocol 01/02/21 08:30 02/01/21 08:29 Assessment/Plan Assessment/Plan Pulmonary CCM Progress Note HPI Patient is a 60 man with prior h/o COPD, CPS/bipolar DO, 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 ID following and started on CTx/Azithro + REM + SM, CXR with bilateral infiltrates. 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, DM2, HTN and hydrocephalus Physical Exam Deferred Covid19 Vital Signs noted Laboratory Tests noted Imaging noted Height (Feet): 5 Height (Inches): 5.00 Weight (Pounds): 233 Medications Medications noted Assessment/Plan Problem List: (1) Pneumonia due to COVID-19 virus ICD Codes: U07.1 - COVID-19; J12.82 - Pneumonia due to coronavirus disease 2018 SNOMED: 774020659597732142 (2) Acute hypercapnic respiratory failure ICD Codes: J96.02 - Acute respiratory failure with hypercapnia SNOMED: 437261912 (3) Respiratory failure with hypoxia ICD Codes: J96.91 - Respiratory failure, unspecified with hypoxia SNOMED: 21345072172484784 Qualifiers: Qualified Codes: J96.01 - Acute respiratory failure with hypoxia (4) COPD (chronic obstructive pulmonary disease) ICD Codes: J44.9 - Chronic obstructive pulmonary disease, unspecified SNOMED: 26356063 (5) History of deep venous thrombosis or pulmonary embolus SNOMED: 221580737 (6) Obesity ICD Codes: E66.9 - Obesity, unspecified SNOMED: 602825586, 660857508 (7) Essential hypertension ICD Codes: I10 - Essential (primary) hypertension SNOMED: 65998902 (8) Diabetes mellitus type 2 in obese ICD Codes: E11.69 - Type 2 diabetes mellitus with other specified complication; E66.9 - Obesity, unspecified SNOMED: 63943181 (9) History of hydrocephalus ICD Codes: Z86.69 - Personal history of other diseases of the nervous system and sense organs SNOMED: 968618664 (10) Schizophrenia ICD Codes: F20.9 - Schizophrenia, unspecified SNOMED: 21543971 (11) Bipolar 1 disorder ICD Codes: F31.9 - Bipolar disorder, unspecified SNOMED: 385075108 (12) Anticoagulant long-term use ICD Codes: Z79.01 - bed bug exterminator (current) use of anticoagulants SNOMED: 293311814 Assessment/Plan: ACVC - adjust PRN Prone as tolerated per protocol Adjust FiO2 to keep SaO2 > 92% Reduce PEEP as tolerated Pressors PRN Sedation PRN HFA's F/U inflammatory markers and covid labs ID recs REM per ID Wean SM to off - 10QD previously Abx per ID F/U Cx's Monitor volumes and renal function,diuresis per Renal DVT Px: Coumadin TF when not proned FC Will need tracheostomy - did not tolerate weaning Anuel Luis MD Jan 23, 2021 19:29
[2021-01-23] MEDS: Dyna-Hex 2% Top Sol 2oz TOPIC SCH (20:04)
[2021-01-24] VITALS (38 sets, daily range): BP systolic 66–129; BP diastolic 37–72
[2021-01-24] MEDS: Albuterol 90mcg Inhaler 8gm INH SCH ×4 (00:23→19:53)
[2021-01-24] MEDS: Ipratropium Bromide Inhaler INH SCH ×4 (00:23→19:52)
[2021-01-24] MEDS: Norepinephrine 4mg/NS Premix 250 ML IV PRN ×4 (00:30→18:15)
[2021-01-24] MEDS: Versed 100mg/NS 200ml 200 ML IV PRN ×3 (00:30→18:15)
[2021-01-24] MEDS: NovoLOG Insulin Flexpen SUBQ SCH ×4 (06:00→18:45)
[2021-01-24] MEDS: Midodrine 10mg tab ORAL SCH ×3 (06:23→21:50)
[2021-01-24 06:27] LABS: BASOPHILS % (AUTO) 4.1 % (0.0-2.0); EOSINOPHILS % (AUTO) 2.1 % (0.0-3.0); HEMATOCRIT 41.9 % (42.0-52.0); HEMOGLOBIN 13.2 G/DL (14.2-18.0); LYMPHOCYTES % (AUTO) 19.3 % (20.0-45.0); MEAN CORPUSCULAR VOLUME 91 FL (80-99); MONOCYTES % (AUTO) 11.4 % (1.0-10.0); NEUTROPHILS % (AUTO) 63.1 % (45.0-75.0); PLATELET COUNT 218 K/UL (150-450); RED BLOOD COUNT 4.58 M/UL (4.70-6.10); RED CELL DISTRIBUTION WIDTH 15.1 % (11.6-14.8); WHITE BLOOD COUNT 8.6 K/UL (4.8-10.8)
[2021-01-24 06:30] LABS: INR 3.6 (0.9-1.1)
[2021-01-24 06:42] LABS: ANION GAP 10 mmol/L (5-15); BLOOD UREA NITROGEN 7 mg/dL (7-18); CALCIUM 8.8 MG/DL (8.5-10.1); CARBON DIOXIDE 26 MMOL/L (21-32); CHLORIDE 101 MMOL/L (98-107); CREATININE 0.8 MG/DL (0.55-1.30); POTASSIUM 4.3 MMOL/L (3.5-5.1); SODIUM 137 MMOL/L (136-145)
[2021-01-24] MEDS: fentaNYL 2500mcg/NS 250ml 250 ML IV SCH (08:01)
--- NOTE | 2021-01-24 08:33 | Infectious Diseases Prog Note ---
Assessment/Plan 60yo M with: Staph epi bacteremia, m/l skin contaminant 01/10 BCx 1/2 +Staph epi 01/13 BCx NTD COVID pna, severe Acute hypoxia 2/2 COVID pna >> intubated 01/06 Febrile to 103 Normal WBC Elevated AST 51 2/2 Tested positive for COVID at [facility] 2 COVID PCR positive 01/02 BCx NTD CXR: Multifocal pna MRSA nares neg 01/06 Intubated in ICU CXR: 1. Appropriately positioned endotracheal and enteric tubes. 2. Stable bilateral airspace disease. 01/07 Resp cx +Yasmine albicans (colonizer) 01/11 CXR: Interval improved bilateral lung aeration. Bibasilar infiltrates/atelectasis. Cr 1.1 HIV screen neg PMH: DM2 COPD HTN SNF resident Plan: Monitor off abx Monitor WBCs Monitor temps 01/22/21 steroids #19, on methylpred 20 IV q12 - defer course to Pulm/Primary, now tapering 01/19/21 SP Zosyn #10 01/14 SP vanco IV #1 01/09 SP CTX #7 01/07 SP azithro #5, RDV #5 This institution does not have access to convalescent plasma and only recommended to give in setting of clinical trial Monitor CBC/CMP Monitor temp curve, hemodynamics Monitor resp status D/w RN Thank you for this consult. [facility] will continue to follow. Subjective Allergies: Coded Allergies: No Known Allergies (Unverified , 01/02/21) LGF Remains on Vent 65% O2 Mild Leukocytosis resolved Objective Last 24 Hour Vital Signs Date Time Temp Pulse Resp B/P (MAP) Pulse Ox O2 Delivery O2 Flow Rate FiO2 01/24/21 08:01 22 98/61 Mechanical Ventilator 65 01/24/21 07:30 22 98/61 Mechanical Ventilator 65 01/24/21 07:30 98/61 01/24/21 07:00 85 22 98/61 (73) 97 01/24/21 07:00 22 98/61 Mechanical Ventilator 65 01/24/21 06:00 22 102/62 Mechanical Ventilator 65 01/24/21 06:00 99.9 84 22 102/62 (75) 97 01/24/21 05:00 84 22 97/54 (68) 96 01/24/21 05:00 22 97/54 Mechanical Ventilator 65 01/24/21 05:00 22 97/54 Mechanical Ventilator 65 01/24/21 04:46 83 22 65 01/24/21 04:00 83 01/24/21 04:00 Mechanical Ventilator 01/24/21 04:00 22 95/53 Mechanical Ventilator 65 01/24/21 04:00 22 95/53 Mechanical Ventilator 65 01/24/21 04:00 83 22 95/53 (67) 96 01/24/21 04:00 65 01/24/21 03:00 82 22 94/58 (70) 96 01/24/21 03:00 22 94/58 01/24/21 03:00 22 94/58 Mechanical Ventilator 65 01/24/21 02:59 81 22 65 01/24/21 02:00 22 93/55 Mechanical Ventilator 65 01/24/21 02:00 22 93/55 Mechanical Ventilator 40 01/24/21 02:00 83 22 93/55 (68) 96 01/24/21 01:30 82 22 96/53 (67) 97 01/24/21 01:04 82 22 65 01/24/21 01:00 81 22 102/60 (74) 97 01/24/21 01:00 22 102/60 Mechanical Ventilator 65 01/24/21 01:00 22 102/60 Mechanical Ventilator 40 01/24/21 00:30 22 71/36 Mechanical Ventilator 65 01/24/21 00:30 71/36 01/24/21 00:00 99.8 82 22 93/55 (68) 96 01/24/21 00:00 82 01/24/21 00:00 Mechanical Ventilator 01/24/21 00:00 22 93/55 Mechanical Ventilator 65 01/24/21 00:00 22 93/55 Mechanical Ventilator 65 01/24/21 00:00 65 01/23/21 23:00 21 100/56 Mechanical Ventilator 65 01/23/21 23:00 21 100/56 Mechanical Ventilator 65 01/23/21 23:00 80 21 100/56 (71) 98 01/23/21 22:59 80 22 65 01/23/21 22:00 83 22 86/46 (59) 96 01/23/21 22:00 22 86/46 Mechanical Ventilator 65 01/23/21 22:00 22 86/46 Mechanical Ventilator 65 01/23/21 21:11 87 22 65 01/23/21 21:00 22 88/49 Mechanical Ventilator 65 01/23/21 21:00 22 88/49 Mechanical Ventilator 65 01/23/21 21:00 84 22 88/49 (62) 95 01/23/21 20:00 65 01/23/21 20:00 99.9 88 22 95/57 (70) 96 01/23/21 20:00 22 95/57 Mechanical Ventilator 65 01/23/21 20:00 22 95/57 Mechanical Ventilator 65 01/23/21 20:00 89 01/23/21 20:00 Mechanical Ventilator 01/23/21 19:04 86 22 65 01/23/21 19:00 84 22 104/58 (73) 97 01/23/21 19:00 22 104/58 Mechanical Ventilator 65 01/23/21 19:00 22 104/58 Mechanical Ventilator 65 01/23/21 18:00 22 98/58 Mechanical Ventilator 65 01/23/21 18:00 22 98/58 Mechanical Ventilator 65 01/23/21 18:00 81 22 98/58 (71) 97 01/23/21 17:01 22 104/57 Mechanical Ventilator 65 01/23/21 17:00 81 22 103/59 (74) 97 01/23/21 17:00 104/57 01/23/21 17:00 22 107/57 Mechanical Ventilator 65 01/23/21 17:00 22 104/57 Mechanical Ventilator 65 01/23/21 16:30 80 22 104/57 (73) 97 01/23/21 16:00 80 01/23/21 16:00 22 103/57 Mechanical Ventilator 65 01/23/21 16:00 22 103/57 Mechanical Ventilator 65 01/23/21 16:00 100.0 80 22 103/57 (72) 96 01/23/21 16:00 65 01/23/21 16:00 Mechanical Ventilator 01/23/21 15:45 22 100/64 Mechanical Ventilator 65 01/23/21 15:45 22 100/64 Mechanical Ventilator 65 01/23/21 15:30 22 98/58 Mechanical Ventilator 65 01/23/21 15:30 22 98/58 Mechanical Ventilator 65 01/23/21 15:16 90 22 65 01/23/21 15:15 22 96/59 Mechanical Ventilator 65 01/23/21 15:15 22 96/59 Mechanical Ventilator 65 01/23/21 15:00 91 13 104/5 (38) 99 01/23/21 15:00 21 104/51 Mechanical Ventilator 65 01/23/21 15:00 21 104/51 Mechanical Ventilator 65 01/23/21 14:00 22 96/60 Mechanical Ventilator 65 01/23/21 14:00 22 96/60 Mechanical Ventilator 65 01/23/21 14:00 91 22 96/60 (72) 99 01/23/21 13:39 91 22 65 01/23/21 13:02 90 22 97/61 (73) 99 01/23/21 13:00 99.8 90 22 97/61 (73) 99 01/23/21 13:00 22 97/61 Mechanical Ventilator 65 01/23/21 13:00 22 97/61 Mechanical Ventilator 65 01/23/21 12:30 90 22 95/57 (70) 99 01/23/21 12:00 91 01/23/21 12:00 22 97/60 Mechanical Ventilator 65 01/23/21 12:00 22 97/60 65 01/23/21 12:00 65 01/23/21 12:00 Mechanical Ventilator 01/23/21 12:00 91 22 96/60 (72) 99 01/23/21 11:30 91 22 100/61 (74) 99 01/23/21 11:10 22 112/72 Mechanical Ventilator 65 01/23/21 11:00 22 113/73 Mechanical Ventilator 65 01/23/21 11:00 22 113/73 Mechanical Ventilator 65 01/23/21 11:00 92 22 65 01/23/21 11:00 91 22 103/75 (84) 99 01/23/21 10:30 86 22 112/75 (87) 99 01/23/21 10:00 100.0 87 22 112/72 (85) 99 01/23/21 10:00 22 112/72 Mechanical Ventilator 65 01/23/21 10:00 22 112/72 Mechanical Ventilator 65 01/23/21 09:30 87 22 117/76 (90) 99 01/23/21 09:00 81 22 119/84 (96) 100 01/23/21 09:00 22 130/83 Mechanical Ventilator 65 01/23/21 09:00 22 130/83 Mechanical Ventilator 65 Height (Feet): 5 Height (Inches): 5.00 Weight (Pounds): 233 Gen: NAD on Vent 65% O2 satting well HEENT: NCAT, ETT CV: RRR Pulm: BL chest rise, RRR Ext: No c/c/e Skin: No visible rashes Neuro: Sedated Laboratory Tests Test 01/23/21 12:09 01/24/21 04:09 Arterial Blood pH 7.468 (7.350-7.450) Arterial Blood Partial Pressure CO2 41.4 mmHg (35.0-45.0) Arterial Blood Partial Pressure O2 93.9 mmHg (75.0-100.0) Arterial Blood HCO3 29.3 mmol/L (22.0-26.0) H Arterial Blood Oxygen Saturation 97.1 % (95-100) Arterial Blood Base Excess 5.2 (-2-2) H Miguelito Test Positive White Blood Count 8.6 K/UL (4.8-10.8) Red Blood Count 4.58 M/UL (4.70-6.10) L Hemoglobin 13.2 G/DL (14.2-18.0) L Hematocrit 41.9 % (42.0-52.0) L Mean Corpuscular Volume 91 FL (80-99) Mean Corpuscular Hemoglobin 28.7 PG (27.0-31.0) Mean Corpuscular Hemoglobin Concent 31.5 G/DL (32.0-36.0) L Red Cell Distribution Width 15.1 % (11.6-14.8) H Platelet Count 218 K/UL (150-450) Mean Platelet Volume 9.1 FL (6.5-10.1) Neutrophils (%) (Auto) 63.1 % (45.0-75.0) Lymphocytes (%) (Auto) 19.3 % (20.0-45.0) L Monocytes (%) (Auto) 11.4 % (1.0-10.0) H Eosinophils (%) (Auto) 2.1 % (0.0-3.0) Basophils (%) (Auto) 4.1 % (0.0-2.0) H Prothrombin Time 36.3 SEC (9.30-11.50) H Prothromb Time International Ratio 3.6 (0.9-1.1) H Sodium Level 137 MMOL/L (136-145) Potassium Level 4.3 MMOL/L (3.5-5.1) Chloride Level 101 MMOL/L (98-107) Carbon Dioxide Level 26 MMOL/L (21-32) Anion Gap 10 mmol/L (5-15) Blood Urea Nitrogen 7 mg/dL (7-18) Creatinine 0.8 MG/DL (0.55-1.30) Estimat Glomerular Filtration Rate > 60 mL/min (>60) Glucose Level 188 MG/DL (74-106) H Calcium Level 8.8 MG/DL (8.5-10.1) Current Medications Medications (Trade) Dose Ordered Sig/Johnny Route PRN Reason Start Time Stop Time Status Last Admin Dose Admin Acetaminophen (Tylenol) 650 mg Q6H PRN NG Temp >100.5 01/09/21 09:15 02/08/21 09:14 01/22/21 23:28 Acetaminophen (Tylenol) 650 mg Q6H PRN NG Mild Pain (Pain Scale 1-3) 01/09/21 09:15 02/08/21 09:14 Albuterol Sulfate (Proventil MDI) 2 puff Q6HRT INH 01/02/21 19:00 04/02/21 18:59 01/24/21 07:01 Benztropine Mesylate (Cogentin) 1 mg EVERY 12 HOURS NG 01/09/21 09:15 02/01/21 09:14 01/23/21 20:05 Chlorhexidine Gluconate (Myranda-Hex 2%) 1 applic DAILY@2000 TOPIC 01/12/21 20:00 04/12/21 19:59 01/23/21 20:04 Dextrose (Dextrose 50%) 25 ml Q30M PRN IV Hypoglycemia 01/06/21 23:45 04/06/21 23:44 Dextrose (Dextrose 50%) 50 ml Q30M PRN IV Hypoglycemia 01/06/21 23:45 04/06/21 23:44 Fentanyl Citrate 250 ml @ 0 mls/hr Q24H IV 01/24/21 06:00 01/26/21 05:59 01/24/21 08:01 Insulin Aspart (NovoLOG) EVERY 6 HOURS SUBQ 01/09/21 12:00 04/04/21 16:29 01/24/21 06:00 Ipratropium [place] (Atrovent Inh) 1 puffs Q6HRT INH 01/02/21 19:00 02/01/21 18:59 01/24/21 07:01 Lansoprazole (Prevacid) 30 mg DAILY GT 01/24/21 09:00 02/15/21 08:59 Midazolam HCl 200 ml @ 0 mls/hr Q24H PRN IV Agitation 01/24/21 00:30 01/31/21 00:29 01/24/21 07:30 Midodrine (Pro-Amatine) 10 mg Q8HR ORAL 01/20/21 14:00 04/20/21 13:59 01/24/21 06:23 Norepinephrine Bitartrate 250 ml @ 0 mls/hr Q24H PRN IV hypotension 01/22/21 22:45 01/26/21 22:44 01/24/21 07:30 Ondansetron HCl (Zofran) 4 mg Q4H PRN IVP Nausea & Vomiting 01/02/21 08:15 02/01/21 08:14 Phenylephrine HCl 50 mg/Dextrose 250 ml @ 0 mls/hr Q24H PRN IV hypotension 01/22/21 22:45 01/26/21 22:44 Potassium Chloride (K-Dur) 20 meq TWICE A DAY NG 01/20/21 13:00 04/20/21 12:59 01/23/21 17:05 Quetiapine Fumarate (SEROqueL) 100 mg Q12HR ORAL 01/20/21 15:00 03/06/21 14:59 01/23/21 20:06 Valproic Acid (Depakene) 500 mg Q12HR GT 01/22/21 21:00 02/21/21 20:59 01/23/21 20:05 Warfarin Sodium (Coumadin per pharmacy) 1 ea DAILY PRN MISC Per rx protocol 01/02/21 08:30 02/01/21 08:29 Anuel Crespo MD Jan 24, 2021 08:32
[2021-01-24] MEDS: Valproic Acid 250mg/5ml Liquid GT SCH ×2 (08:54→21:00)
[2021-01-24] MEDS: Benztropine 1mg tab NG SCH ×2 (08:55→21:00)
--- NOTE | 2021-01-24 10:49 | Nephrology Progress Note ---
Assessment/Plan Problem List: (1) Hyperkalemia (2) Pneumonia due to COVID-19 virus (3) Respiratory failure with hypoxia (4) Obesity (5) Schizophrenia (6) DMII (diabetes mellitus, type 2) Assessment Hyperkalemia Stable renal parameters Hyperglycemia Covid pneumonia due to COVID-19 virus Acute respiratory failure with hypoxia requiring mechanical ventilation History of COPD History of DVT, pulmonary emboli Obese Hypertension History of diabetes Psych condition, schizophrenia, bipolar disease Plan January 24: Status quo. Intubated on ventilator and full code. Labs reviewed. Medication list reviewed. Continue per consultants. January 23: Patient on prone position. IntubatedFiO2 65%. Renal parameters stable. Continue per consultants. Date hospitalization. Possible trach?. January 22: FiO2 50%. Prone position. Labs reviewed. Stable from renal standpoint of view. Continue per consultants. January 21: Full code. Intubated on ventilator. FiO2 40%. Labs reviewed. Renal parameters stable. Continue per consultants. January 20: Status unchanged. Full code. On ventilator. Chest x-ray reviewed. IV fluid discontinued. Potassium supplement given. 1 dose of Lasix given. Albumin bolus given. Midodrine started. Will monitor renal parameters and electrolytes. Discussed with JOHAN Mohamud. January 19: Labs reviewed. Renal parameters stable. Remains full code intubated on ventilator. FiO2 50%. Continue per consultants. January 18: Full code. Intubated. On ventilator. FiO2 down to 35%. No labs drawn today. Continue to monitor renal parameters and electrolytes. January 17: Full code. Intubated on ventilator. FiO2 remains at 60%. Labs reviewed. Renal parameters stable. January 16: Full code. Intubated. Labs reviewed. Renal parameters stable. FiO2 60%. Continue per consultants. January 15: Patient remains intubated and full code. Labs reviewed. Stable renal parameters. January 14: Patient full code. Intubated on ventilator. On prone position until 5 PM. Labs reviewed. Stable from renal standpoint of view. January 13: Labs reviewed. Renal parameters stable. Continue per consultants. Patient remain full code and intubated on ventilator. January 12: Labs reviewed. Renal parameters stable. Patient remains full code. Remains intubated on ventilator and on prone position. Continue per consultants. January 11: Labs reviewed. Renal parameters stable. Continue per consultants. January 10: Labs reviewed. Renal parameters stable. Continue per consultants. Change IV to half-normal saline Kayexalate via NG tube for high potassium Monitor electrolytes and renal parameters Per orders, per consultants Subjective ROS Limited/Unobtainable: Yes Objective Objective Last 24 Hour Vital Signs Date Time Temp Pulse Resp B/P (MAP) Pulse Ox O2 Delivery O2 Flow Rate FiO2 01/24/21 10:00 22 113/61 Mechanical Ventilator 65 01/24/21 10:00 22 113/61 Mechanical Ventilator 65 01/24/21 10:00 86 22 117/68 (84) 97 01/24/21 09:30 88 22 99/56 (70) 96 01/24/21 09:00 22 104/53 Mechanical Ventilator 65 01/24/21 09:00 22 104/53 Mechanical Ventilator 65 01/24/21 09:00 85 22 123/72 (89) 97 01/24/21 08:30 83 22 127/72 (90) 97 01/24/21 08:01 22 98/61 Mechanical Ventilator 65 01/24/21 08:00 22 126/74 Mechanical Ventilator 65 01/24/21 08:00 65 01/24/21 08:00 70 01/24/21 08:00 Mechanical Ventilator 01/24/21 08:00 99.8 83 22 129/72 (91) 97 01/24/21 07:30 22 98/61 Mechanical Ventilator 65 01/24/21 07:30 98/61 01/24/21 07:29 22 98/61 Mechanical Ventilator 65 01/24/21 07:00 85 22 98/61 (73) 97 01/24/21 07:00 22 98/61 Mechanical Ventilator 65 01/24/21 06:00 22 102/62 Mechanical Ventilator 65 01/24/21 06:00 99.9 84 22 102/62 (75) 97 01/24/21 05:00 84 22 97/54 (68) 96 01/24/21 05:00 22 97/54 Mechanical Ventilator 65 01/24/21 05:00 22 97/54 Mechanical Ventilator 65 01/24/21 04:46 83 22 65 01/24/21 04:00 83 01/24/21 04:00 Mechanical Ventilator 01/24/21 04:00 22 95/53 Mechanical Ventilator 65 01/24/21 04:00 22 95/53 Mechanical Ventilator 65 01/24/21 04:00 83 22 95/53 (67) 96 01/24/21 04:00 65 01/24/21 03:00 82 22 94/58 (70) 96 01/24/21 03:00 22 94/58 01/24/21 03:00 22 94/58 Mechanical Ventilator 65 01/24/21 02:59 81 22 65 01/24/21 02:00 22 93/55 Mechanical Ventilator 65 01/24/21 02:00 22 93/55 Mechanical Ventilator 40 01/24/21 02:00 83 22 93/55 (68) 96 01/24/21 01:30 82 22 96/53 (67) 97 01/24/21 01:04 82 22 65 01/24/21 01:00 81 22 102/60 (74) 97 01/24/21 01:00 22 102/60 Mechanical Ventilator 65 01/24/21 01:00 22 102/60 Mechanical Ventilator 40 01/24/21 00:30 22 71/36 Mechanical Ventilator 65 01/24/21 00:30 71/36 01/24/21 00:00 99.8 82 22 93/55 (68) 96 01/24/21 00:00 82 01/24/21 00:00 Mechanical Ventilator 01/24/21 00:00 22 93/55 Mechanical Ventilator 65 01/24/21 00:00 22 93/55 Mechanical Ventilator 65 01/24/21 00:00 65 01/23/21 23:00 21 100/56 Mechanical Ventilator 65 01/23/21 23:00 21 100/56 Mechanical Ventilator 65 01/23/21 23:00 80 21 100/56 (71) 98 01/23/21 22:59 80 22 65 01/23/21 22:00 83 22 86/46 (59) 96 01/23/21 22:00 22 86/46 Mechanical Ventilator 65 01/23/21 22:00 22 86/46 Mechanical Ventilator 65 01/23/21 21:11 87 22 65 01/23/21 21:00 22 88/49 Mechanical Ventilator 65 01/23/21 21:00 22 88/49 Mechanical Ventilator 65 01/23/21 21:00 84 22 88/49 (62) 95 01/23/21 20:00 65 01/23/21 20:00 99.9 88 22 95/57 (70) 96 01/23/21 20:00 22 95/57 Mechanical Ventilator 65 01/23/21 20:00 22 95/57 Mechanical Ventilator 65 01/23/21 20:00 89 01/23/21 20:00 Mechanical Ventilator 01/23/21 19:04 86 22 65 01/23/21 19:00 84 22 104/58 (73) 97 01/23/21 19:00 22 104/58 Mechanical Ventilator 65 01/23/21 19:00 22 104/58 Mechanical Ventilator 65 01/23/21 18:00 22 98/58 Mechanical Ventilator 65 01/23/21 18:00 22 98/58 Mechanical Ventilator 65 01/23/21 18:00 81 22 98/58 (71) 97 01/23/21 17:01 22 104/57 Mechanical Ventilator 65 01/23/21 17:00 81 22 103/59 (74) 97 01/23/21 17:00 104/57 01/23/21 17:00 22 107/57 Mechanical Ventilator 65 01/23/21 17:00 22 104/57 Mechanical Ventilator 65 01/23/21 16:30 80 22 104/57 (73) 97 01/23/21 16:00 80 01/23/21 16:00 22 103/57 Mechanical Ventilator 65 01/23/21 16:00 22 103/57 Mechanical Ventilator 65 01/23/21 16:00 100.0 80 22 103/57 (72) 96 01/23/21 16:00 65 01/23/21 16:00 Mechanical Ventilator 01/23/21 15:45 22 100/64 Mechanical Ventilator 65 01/23/21 15:45 22 100/64 Mechanical Ventilator 65 01/23/21 15:30 22 98/58 Mechanical Ventilator 65 01/23/21 15:30 22 98/58 Mechanical Ventilator 65 01/23/21 15:16 90 22 65 01/23/21 15:15 22 96/59 Mechanical Ventilator 65 01/23/21 15:15 22 96/59 Mechanical Ventilator 65 01/23/21 15:00 91 13 104/5 (38) 99 01/23/21 15:00 21 104/51 Mechanical Ventilator 65 01/23/21 15:00 21 104/51 Mechanical Ventilator 65 01/23/21 14:00 22 96/60 Mechanical Ventilator 65 01/23/21 14:00 22 96/60 Mechanical Ventilator 65 01/23/21 14:00 91 22 96/60 (72) 99 01/23/21 13:39 91 22 65 01/23/21 13:02 90 22 97/61 (73) 99 01/23/21 13:00 99.8 90 22 97/61 (73) 99 01/23/21 13:00 22 97/61 Mechanical Ventilator 65 01/23/21 13:00 22 97/61 Mechanical Ventilator 65 01/23/21 12:30 90 22 95/57 (70) 99 01/23/21 12:00 91 01/23/21 12:00 22 97/60 Mechanical Ventilator 65 01/23/21 12:00 22 97/60 65 01/23/21 12:00 65 01/23/21 12:00 Mechanical Ventilator 01/23/21 12:00 91 22 96/60 (72) 99 01/23/21 11:30 91 22 100/61 (74) 99 01/23/21 11:10 22 112/72 Mechanical Ventilator 65 01/23/21 11:00 22 113/73 Mechanical Ventilator 65 01/23/21 11:00 22 113/73 Mechanical Ventilator 65 01/23/21 11:00 92 22 65 01/23/21 11:00 91 22 103/75 (84) 99 Intake and Output 01/23/21 01/24/21 19:00 07:00 Intake Total 1175.00 ml 982.25 ml Output Total 570 ml 480 ml Balance 605.00 ml 502.25 ml Free Water 60 ml 50 ml IV Total 935.00 ml 872.25 ml Tube Feeding 180 ml 60 ml Output Urine Total 570 ml 480 ml Current Medications Medications (Trade) Dose Ordered Sig/Johnny Route PRN Reason Start Time Stop Time Status Last Admin Dose Admin Acetaminophen (Tylenol) 650 mg Q6H PRN NG Temp >100.5 01/09/21 09:15 02/08/21 09:14 01/22/21 23:28 Acetaminophen (Tylenol) 650 mg Q6H PRN NG Mild Pain (Pain Scale 1-3) 01/09/21 09:15 02/08/21 09:14 Albuterol Sulfate (Proventil MDI) 2 puff Q6HRT INH 01/02/21 19:00 04/02/21 18:59 01/24/21 07:01 Benztropine Mesylate (Cogentin) 1 mg EVERY 12 HOURS NG 01/09/21 09:15 02/01/21 09:14 01/24/21 08:55 Chlorhexidine Gluconate (Myranda-Hex 2%) 1 applic DAILY@2000 TOPIC 01/12/21 20:00 04/12/21 19:59 01/23/21 20:04 Dextrose (Dextrose 50%) 25 ml Q30M PRN IV Hypoglycemia 01/06/21 23:45 04/06/21 23:44 Dextrose (Dextrose 50%) 50 ml Q30M PRN IV Hypoglycemia 01/06/21 23:45 04/06/21 23:44 Fentanyl Citrate 250 ml @ 0 mls/hr Q24H IV 01/24/21 06:00 01/26/21 05:59 01/24/21 08:01 Insulin Aspart (NovoLOG) EVERY 6 HOURS SUBQ 01/09/21 12:00 04/04/21 16:29 01/24/21 06:00 Ipratropium [place] (Atrovent Inh) 1 puffs Q6HRT INH 01/02/21 19:00 02/01/21 18:59 01/24/21 07:01 Lansoprazole (Prevacid) 30 mg DAILY GT 01/24/21 09:00 02/15/21 08:59 01/24/21 08:55 Midazolam HCl 200 ml @ 0 mls/hr Q24H PRN IV Agitation 01/24/21 00:30 01/31/21 00:29 01/24/21 07:30 Midodrine (Pro-Amatine) 10 mg Q8HR ORAL 01/20/21 14:00 04/20/21 13:59 01/24/21 06:23 Norepinephrine Bitartrate 250 ml @ 0 mls/hr Q24H PRN IV hypotension 01/22/21 22:45 01/26/21 22:44 01/24/21 07:30 Ondansetron HCl (Zofran) 4 mg Q4H PRN IVP Nausea & Vomiting 01/02/21 08:15 02/01/21 08:14 Phenylephrine HCl 50 mg/Dextrose 250 ml @ 0 mls/hr Q24H PRN IV hypotension 01/22/21 22:45 01/26/21 22:44 Potassium Chloride (K-Dur) 20 meq TWICE A DAY NG 01/20/21 13:00 04/20/21 12:59 01/24/21 08:55 Quetiapine Fumarate (SEROqueL) 100 mg Q12HR ORAL 01/20/21 15:00 03/06/21 14:59 01/24/21 08:55 Valproic Acid (Depakene) 500 mg Q12HR GT 01/22/21 21:00 02/21/21 20:59 01/24/21 08:54 Warfarin Sodium (Coumadin per pharmacy) 1 ea DAILY PRN MISC Per rx protocol 01/02/21 08:30 02/01/21 08:29 Laboratory Tests 01/23/21 12:09: Arterial Blood pH 7.468H, Arterial Blood Partial Pressure CO2 41.4, Arterial Blood Partial Pressure O2 93.9, Arterial Blood HCO3 29.3H, Arterial Blood Oxygen Saturation 97.1, Arterial Blood Base Excess 5.2H, Miguelito Test Positive 01/24/21 04:09: White Blood Count 8.6, Red Blood Count 4.58L, Hemoglobin 13.2L, Hematocrit 41.9L , Mean Corpuscular Volume 91, Mean Corpuscular Hemoglobin 28.7, Mean Corpuscular Hemoglobin Concent 31.5L, Red Cell Distribution Width 15.1H, Platelet Count 218, Mean Platelet Volume 9.1, Neutrophils (%) (Auto) 63.1, Lymphocytes (%) (Auto) 19.3L, Monocytes (%) (Auto) 11.4H, Eosinophils (%) (Auto) 2.1, Basophils (%) (Auto) 4.1H, Prothrombin Time 36.3H, Prothromb Time International Ratio 3.6H, Sodium Level 137, Potassium Level 4.3, Chloride Level 101, Carbon Dioxide Level 26, Anion Gap 10, Blood Urea Nitrogen 7, Creatinine 0.8, Estimat Glomerular Filtration Rate > 60, Glucose Level 188H, Calcium Level 8.8 Height (Feet): 5 Height (Inches): 5.00 Weight (Pounds): 233 General Appearance: no apparent distress Cardiovascular: tachycardia Respiratory/Chest: decreased breath sounds Abdomen: distended Avi Frye MD Jan 24, 2021 10:49
--- NOTE | 2021-01-24 11:22 | Surgery Progress Note ---
Surgery Progress Note Subjective Additional Comments trach consent obtained unfortunately unstable for trach at this time on levo wean pressors Objective Last 24 Hour Vital Signs Date Time Temp Pulse Resp B/P (MAP) Pulse Ox O2 Delivery O2 Flow Rate FiO2 01/24/21 10:00 22 113/61 Mechanical Ventilator 65 01/24/21 10:00 22 113/61 Mechanical Ventilator 65 01/24/21 10:00 86 22 117/68 (84) 97 01/24/21 09:30 88 22 99/56 (70) 96 01/24/21 09:00 22 104/53 Mechanical Ventilator 65 01/24/21 09:00 22 104/53 Mechanical Ventilator 65 01/24/21 09:00 85 22 123/72 (89) 97 01/24/21 08:30 83 22 127/72 (90) 97 01/24/21 08:01 22 98/61 Mechanical Ventilator 65 01/24/21 08:00 22 126/74 Mechanical Ventilator 65 01/24/21 08:00 65 01/24/21 08:00 70 01/24/21 08:00 Mechanical Ventilator 01/24/21 08:00 99.8 83 22 129/72 (91) 97 01/24/21 07:30 22 98/61 Mechanical Ventilator 65 01/24/21 07:30 98/61 01/24/21 07:29 22 98/61 Mechanical Ventilator 65 01/24/21 07:00 85 22 98/61 (73) 97 01/24/21 07:00 22 98/61 Mechanical Ventilator 65 01/24/21 06:00 22 102/62 Mechanical Ventilator 65 01/24/21 06:00 99.9 84 22 102/62 (75) 97 01/24/21 05:00 84 22 97/54 (68) 96 01/24/21 05:00 22 97/54 Mechanical Ventilator 65 01/24/21 05:00 22 97/54 Mechanical Ventilator 65 01/24/21 04:46 83 22 65 01/24/21 04:00 83 01/24/21 04:00 Mechanical Ventilator 01/24/21 04:00 22 95/53 Mechanical Ventilator 65 01/24/21 04:00 22 95/53 Mechanical Ventilator 65 01/24/21 04:00 83 22 95/53 (67) 96 01/24/21 04:00 65 01/24/21 03:00 82 22 94/58 (70) 96 01/24/21 03:00 22 94/58 01/24/21 03:00 22 94/58 Mechanical Ventilator 65 01/24/21 02:59 81 22 65 01/24/21 02:00 22 93/55 Mechanical Ventilator 65 01/24/21 02:00 22 93/55 Mechanical Ventilator 40 01/24/21 02:00 83 22 93/55 (68) 96 01/24/21 01:30 82 22 96/53 (67) 97 01/24/21 01:04 82 22 65 01/24/21 01:00 81 22 102/60 (74) 97 01/24/21 01:00 22 102/60 Mechanical Ventilator 65 01/24/21 01:00 22 102/60 Mechanical Ventilator 40 01/24/21 00:30 22 71/36 Mechanical Ventilator 65 01/24/21 00:30 71/36 01/24/21 00:00 99.8 82 22 93/55 (68) 96 01/24/21 00:00 82 01/24/21 00:00 Mechanical Ventilator 01/24/21 00:00 22 93/55 Mechanical Ventilator 65 01/24/21 00:00 22 93/55 Mechanical Ventilator 65 01/24/21 00:00 65 01/23/21 23:00 21 100/56 Mechanical Ventilator 65 01/23/21 23:00 21 100/56 Mechanical Ventilator 65 01/23/21 23:00 80 21 100/56 (71) 98 01/23/21 22:59 80 22 65 01/23/21 22:00 83 22 86/46 (59) 96 01/23/21 22:00 22 86/46 Mechanical Ventilator 65 01/23/21 22:00 22 86/46 Mechanical Ventilator 65 01/23/21 21:11 87 22 65 01/23/21 21:00 22 88/49 Mechanical Ventilator 65 01/23/21 21:00 22 88/49 Mechanical Ventilator 65 01/23/21 21:00 84 22 88/49 (62) 95 01/23/21 20:00 65 01/23/21 20:00 99.9 88 22 95/57 (70) 96 01/23/21 20:00 22 95/57 Mechanical Ventilator 65 01/23/21 20:00 22 95/57 Mechanical Ventilator 65 01/23/21 20:00 89 01/23/21 20:00 Mechanical Ventilator 01/23/21 19:04 86 22 65 01/23/21 19:00 84 22 104/58 (73) 97 01/23/21 19:00 22 104/58 Mechanical Ventilator 65 01/23/21 19:00 22 104/58 Mechanical Ventilator 65 01/23/21 18:00 22 98/58 Mechanical Ventilator 65 01/23/21 18:00 22 98/58 Mechanical Ventilator 65 01/23/21 18:00 81 22 98/58 (71) 97 01/23/21 17:01 22 104/57 Mechanical Ventilator 65 01/23/21 17:00 81 22 103/59 (74) 97 01/23/21 17:00 104/57 01/23/21 17:00 22 107/57 Mechanical Ventilator 65 01/23/21 17:00 22 104/57 Mechanical Ventilator 65 01/23/21 16:30 80 22 104/57 (73) 97 01/23/21 16:00 80 01/23/21 16:00 22 103/57 Mechanical Ventilator 65 01/23/21 16:00 22 103/57 Mechanical Ventilator 65 01/23/21 16:00 100.0 80 22 103/57 (72) 96 01/23/21 16:00 65 01/23/21 16:00 Mechanical Ventilator 01/23/21 15:45 22 100/64 Mechanical Ventilator 65 01/23/21 15:45 22 100/64 Mechanical Ventilator 65 01/23/21 15:30 22 98/58 Mechanical Ventilator 65 01/23/21 15:30 22 98/58 Mechanical Ventilator 65 01/23/21 15:16 90 22 65 01/23/21 15:15 22 96/59 Mechanical Ventilator 65 01/23/21 15:15 22 96/59 Mechanical Ventilator 65 01/23/21 15:00 91 13 104/5 (38) 99 01/23/21 15:00 21 104/51 Mechanical Ventilator 65 01/23/21 15:00 21 104/51 Mechanical Ventilator 65 01/23/21 14:00 22 96/60 Mechanical Ventilator 65 01/23/21 14:00 22 96/60 Mechanical Ventilator 65 01/23/21 14:00 91 22 96/60 (72) 99 01/23/21 13:39 91 22 65 01/23/21 13:02 90 22 97/61 (73) 99 01/23/21 13:00 99.8 90 22 97/61 (73) 99 01/23/21 13:00 22 97/61 Mechanical Ventilator 65 01/23/21 13:00 22 97/61 Mechanical Ventilator 65 01/23/21 12:30 90 22 95/57 (70) 99 01/23/21 12:00 91 01/23/21 12:00 22 97/60 Mechanical Ventilator 65 01/23/21 12:00 22 97/60 65 01/23/21 12:00 65 01/23/21 12:00 Mechanical Ventilator 01/23/21 12:00 91 22 96/60 (72) 99 01/23/21 11:30 91 22 100/61 (74) 99 I&O Intake and Output 01/23/21 01/24/21 19:00 07:00 Intake Total 1175.00 ml 982.25 ml Output Total 570 ml 480 ml Balance 605.00 ml 502.25 ml Free Water 60 ml 50 ml IV Total 935.00 ml 872.25 ml Tube Feeding 180 ml 60 ml Output Urine Total 570 ml 480 ml Dressing: saturated Cardiovascular: RSR Respiratory: decreased breath sounds Abdomen: soft, non-tender, decreased bowel sounds Extremities: edema, no cyanosis Laboratory Tests Test 01/23/21 12:09 01/24/21 04:09 Arterial Blood pH 7.468 (7.350-7.450) Arterial Blood Partial Pressure CO2 41.4 mmHg (35.0-45.0) Arterial Blood Partial Pressure O2 93.9 mmHg (75.0-100.0) Arterial Blood HCO3 29.3 mmol/L (22.0-26.0) H Arterial Blood Oxygen Saturation 97.1 % (95-100) Arterial Blood Base Excess 5.2 (-2-2) H Miguelito Test Positive White Blood Count 8.6 K/UL (4.8-10.8) Red Blood Count 4.58 M/UL (4.70-6.10) L Hemoglobin 13.2 G/DL (14.2-18.0) L Hematocrit 41.9 % (42.0-52.0) L Mean Corpuscular Volume 91 FL (80-99) Mean Corpuscular Hemoglobin 28.7 PG (27.0-31.0) Mean Corpuscular Hemoglobin Concent 31.5 G/DL (32.0-36.0) L Red Cell Distribution Width 15.1 % (11.6-14.8) H Platelet Count 218 K/UL (150-450) Mean Platelet Volume 9.1 FL (6.5-10.1) Neutrophils (%) (Auto) 63.1 % (45.0-75.0) Lymphocytes (%) (Auto) 19.3 % (20.0-45.0) L Monocytes (%) (Auto) 11.4 % (1.0-10.0) H Eosinophils (%) (Auto) 2.1 % (0.0-3.0) Basophils (%) (Auto) 4.1 % (0.0-2.0) H Prothrombin Time 36.3 SEC (9.30-11.50) H Prothromb Time International Ratio 3.6 (0.9-1.1) H Sodium Level 137 MMOL/L (136-145) Potassium Level 4.3 MMOL/L (3.5-5.1) Chloride Level 101 MMOL/L (98-107) Carbon Dioxide Level 26 MMOL/L (21-32) Anion Gap 10 mmol/L (5-15) Blood Urea Nitrogen 7 mg/dL (7-18) Creatinine 0.8 MG/DL (0.55-1.30) Estimat Glomerular Filtration Rate > 60 mL/min (>60) Glucose Level 188 MG/DL (74-106) H Calcium Level 8.8 MG/DL (8.5-10.1) Plan Problems: (1) COPD (chronic obstructive pulmonary disease) (2) Essential hypertension (3) Schizophrenia (4) Obesity (5) Diabetes mellitus type 2 in obese (6) History of hydrocephalus (7) Anticoagulant long-term use (8) Bipolar 1 disorder (9) History of deep venous thrombosis or pulmonary embolus (10) Acute hypercapnic respiratory failure (11) Sepsis Assessment & Plan: 60-year-old male Covid positive respiratory insufficiency and severe decline being prone intubated on vent support labs noted septic ill- appearing has been developing wound around the face from ET tube.Receiv ed report from RT pt is being proned and was observed to have developed a blood blister under vent tape on L cheek and L earlobe. Skin assessed and pt was observed to have a blood blister that is 50% de-capped,50% intact. Intact Blood Blister noted to L earlobe. Skin Barrier applied to affected areas. Optifoam Thin foam placed between vent anchor and pt's skin. Optifoam thin placed to R cheek under Vent tape, on Bridge of nose and both earlobes. Given patient's critical status current care plan and findings nutritional optimization is strongly encouraged Covid nutrition plan initiated. All Covid precautions are being taken. Imaging reviewed. Will follow with care plan. Thank you [facility] participation care Nm.Plan: Maintain Optifoam Thin foam to R and L cheeks,Bridge of Nose and Both Ears . Change every 7 days and prn.( May request Optifoam Thin from [facility] dept). APM/PEPE Mattress overlay DAILY ESTIMATED NEEDS: Needs based on Critical care, pulmonary, obese 73.7kg abw 22-28 kcals/kg 5534-2743 total kcals 1.2-2 g protein/kg 88-147 g total protein 25-30 mL/kg 6627-4748 total fluid mLs NUTRITION DIAGNOSIS: Altered nutrition related lab values r/t steroidal meds, clinical status as evidenced by febrile on adm (102.5), elevated BG (270 287) on solumedrol, elevated lipid panel (Triglycerides 333, Chol 370, LDL 150). CURRENT TF:Vital @30ml/hr, now Nepro @30 ENTERAL NUTRITION RECOMMENDATIONS: NEPRO @30ml/hr while supine to provide x8 hrs feeds: 360ml, 648 kcal, 29g pro, 262ml free H2O - Feed at rate best tolerated, currently not meeting est needs d/t proning and aspiration risk w/ supine feeds limited to 8hrs/day. - W/ reduced aspiration risk rec feedings to total Volume of 900ml/day of Nepro as medically able. - Monitor tolerance, position/HOB >30 degrees, hemodynamic stability and ability to increase to meet est kcal and pro needs. - With increase pressor support, rec trophic feeds of 10ml/hr for gut integrity. - When tolerating TF at goal add Prosource BID to better meet est pro needs. ADDITIONAL RECOMMENDATIONS: 1) Now intubated, TF recs above when off proning (8hrs feeds) 2) Obtain calibrated bedscale wts 3) HgA1C/ elevated BG Need for niss while on D5 4) Lytes daily; replete as needed 5) Monitor triglycerides, TF tolerance, hemodynamic stability. (12) Respiratory failure with hypoxia (13) Pneumonia due to COVID-19 virus (14) Hyperkalemia (15) DMII (diabetes mellitus, type 2) Ki Strong Jan 24, 2021 11:22
--- NOTE | 2021-01-24 17:43 | General Progress Note ---
Subjective Date patient seen: Jan 24, 2021 ROS Limited/Unobtainable: Yes Allergies: Coded Allergies: No Known Allergies (Unverified , 01/02/21) Subjective unresponsive and intubated. Objective Last 24 Hour Vital Signs Date Time Temp Pulse Resp B/P (MAP) Pulse Ox O2 Delivery O2 Flow Rate FiO2 01/24/21 16:00 99.9 96 22 96/54 (68) 97 01/24/21 16:00 Mechanical Ventilator 01/24/21 16:00 96 01/24/21 16:00 22 105/53 Mechanical Ventilator 65 01/24/21 16:00 22 105/53 Mechanical Ventilator 65 01/24/21 16:00 65 01/24/21 15:30 97 22 99/58 (72) 97 01/24/21 15:27 96 22 65 01/24/21 15:00 22 97/54 Mechanical Ventilator 65 01/24/21 15:00 22 97/54 65.0 01/24/21 15:00 99 22 92/49 (63) 96 01/24/21 14:30 94 22 98/50 (66) 97 01/24/21 14:00 22 106/63 Mechanical Ventilator 65 01/24/21 14:00 22 106/63 Mechanical Ventilator 65 01/24/21 14:00 93 22 104/60 (75) 97 01/24/21 13:56 93 22 65 01/24/21 13:30 113/61 01/24/21 13:30 113 22 66/37 (47) 94 01/24/21 13:00 93 22 97/53 (68) 97 01/24/21 13:00 22 129/77 Mechanical Ventilator 65 01/24/21 13:00 22 129/77 Mechanical Ventilator 65 01/24/21 12:30 91 22 98/55 (69) 97 01/24/21 12:00 65 01/24/21 12:00 91 01/24/21 12:00 Mechanical Ventilator 01/24/21 12:00 22 95/51 Mechanical Ventilator 65 01/24/21 12:00 22 95/51 Mechanical Ventilator 65 01/24/21 12:00 99.9 90 22 110/61 (77) 97 01/24/21 11:30 89 22 108/58 (75) 96 01/24/21 11:00 89 22 100/49 (66) 96 01/24/21 11:00 22 111/61 Mechanical Ventilator 65 01/24/21 11:00 22 111/61 Mechanical Ventilator 65 01/24/21 10:50 88 22 65 01/24/21 10:00 22 113/61 Mechanical Ventilator 65 01/24/21 10:00 22 113/61 Mechanical Ventilator 65 01/24/21 10:00 86 22 117/68 (84) 97 01/24/21 09:30 88 22 99/56 (70) 96 01/24/21 09:00 22 104/53 Mechanical Ventilator 65 01/24/21 09:00 22 104/53 Mechanical Ventilator 65 01/24/21 09:00 85 22 123/72 (89) 97 01/24/21 08:30 83 22 127/72 (90) 97 01/24/21 08:01 22 98/61 Mechanical Ventilator 65 01/24/21 08:00 22 126/74 Mechanical Ventilator 65 01/24/21 08:00 65 01/24/21 08:00 70 01/24/21 08:00 Mechanical Ventilator 01/24/21 08:00 99.8 83 22 129/72 (91) 97 01/24/21 07:30 22 98/61 Mechanical Ventilator 65 01/24/21 07:30 98/61 01/24/21 07:29 22 98/61 Mechanical Ventilator 65 01/24/21 07:29 90 22 65 01/24/21 07:00 85 22 98/61 (73) 97 01/24/21 07:00 22 98/61 Mechanical Ventilator 65 01/24/21 06:00 22 102/62 Mechanical Ventilator 65 01/24/21 06:00 99.9 84 22 102/62 (75) 97 01/24/21 05:00 84 22 97/54 (68) 96 01/24/21 05:00 22 97/54 Mechanical Ventilator 65 01/24/21 05:00 22 97/54 Mechanical Ventilator 65 01/24/21 04:46 83 22 65 01/24/21 04:00 83 01/24/21 04:00 Mechanical Ventilator 01/24/21 04:00 22 95/53 Mechanical Ventilator 65 01/24/21 04:00 22 95/53 Mechanical Ventilator 65 01/24/21 04:00 83 22 95/53 (67) 96 01/24/21 04:00 65 01/24/21 03:00 82 22 94/58 (70) 96 01/24/21 03:00 22 94/58 01/24/21 03:00 22 94/58 Mechanical Ventilator 65 01/24/21 02:59 81 22 65 01/24/21 02:00 22 93/55 Mechanical Ventilator 65 01/24/21 02:00 22 93/55 Mechanical Ventilator 40 01/24/21 02:00 83 22 93/55 (68) 96 01/24/21 01:30 82 22 96/53 (67) 97 01/24/21 01:04 82 22 65 01/24/21 01:00 81 22 102/60 (74) 97 01/24/21 01:00 22 102/60 Mechanical Ventilator 65 01/24/21 01:00 22 102/60 Mechanical Ventilator 40 01/24/21 00:30 22 71/36 Mechanical Ventilator 65 01/24/21 00:30 71/36 01/24/21 00:00 99.8 82 22 93/55 (68) 96 01/24/21 00:00 82 01/24/21 00:00 Mechanical Ventilator 01/24/21 00:00 22 93/55 Mechanical Ventilator 65 01/24/21 00:00 22 93/55 Mechanical Ventilator 65 01/24/21 00:00 65 01/23/21 23:00 21 100/56 Mechanical Ventilator 65 01/23/21 23:00 21 100/56 Mechanical Ventilator 65 01/23/21 23:00 80 21 100/56 (71) 98 01/23/21 22:59 80 22 65 01/23/21 22:00 83 22 86/46 (59) 96 01/23/21 22:00 22 86/46 Mechanical Ventilator 65 01/23/21 22:00 22 86/46 Mechanical Ventilator 65 01/23/21 21:11 87 22 65 01/23/21 21:00 22 88/49 Mechanical Ventilator 65 01/23/21 21:00 22 88/49 Mechanical Ventilator 65 01/23/21 21:00 84 22 88/49 (62) 95 01/23/21 20:00 65 01/23/21 20:00 99.9 88 22 95/57 (70) 96 01/23/21 20:00 22 95/57 Mechanical Ventilator 65 01/23/21 20:00 22 95/57 Mechanical Ventilator 65 01/23/21 20:00 89 01/23/21 20:00 Mechanical Ventilator 01/23/21 19:04 86 22 65 01/23/21 19:00 84 22 104/58 (73) 97 01/23/21 19:00 22 104/58 Mechanical Ventilator 65 01/23/21 19:00 22 104/58 Mechanical Ventilator 65 01/23/21 18:00 22 98/58 Mechanical Ventilator 65 01/23/21 18:00 22 98/58 Mechanical Ventilator 65 01/23/21 18:00 81 22 98/58 (71) 97 Intake and Output 01/23/21 01/24/21 19:00 07:00 Intake Total 1175.00 ml 982.25 ml Output Total 570 ml 480 ml Balance 605.00 ml 502.25 ml Free Water 60 ml 50 ml IV Total 935.00 ml 872.25 ml Tube Feeding 180 ml 60 ml Output Urine Total 570 ml 480 ml Laboratory Tests 01/24/21 04:09: White Blood Count 8.6, Red Blood Count 4.58L, Hemoglobin 13.2L, Hematocrit 41.9L , Mean Corpuscular Volume 91, Mean Corpuscular Hemoglobin 28.7, Mean Corpuscular Hemoglobin Concent 31.5L, Red Cell Distribution Width 15.1H, Platelet Count 218, Mean Platelet Volume 9.1, Neutrophils (%) (Auto) 63.1, Lymphocytes (%) (Auto) 19.3L, Monocytes (%) (Auto) 11.4H, Eosinophils (%) (Auto) 2.1, Basophils (%) (Auto) 4.1H, Prothrombin Time 36.3H, Prothromb Time International Ratio 3.6H, Sodium Level 137, Potassium Level 4.3, Chloride Level 101, Carbon Dioxide Level 26, Anion Gap 10, Blood Urea Nitrogen 7, Creatinine 0.8, Estimat Glomerular Filtration Rate > 60, Glucose Level 188H, Calcium Level 8.8 Height (Feet): 5 Height (Inches): 5.00 Weight (Pounds): 233 General Appearance: WD/WN EENT: PERRL/EOMI Cardiovascular: normal rate Respiratory/Chest: lungs clear, decreased breath sounds Neurologic: disoriented Assessment/Plan Assessment/Plan: Assessment/Plan (1) Pneumonia due to COVID-19 virus ICD Codes: U07.1 - COVID-19; J12.82 - Pneumonia due to coronavirus disease 2019 SNOMED: 447628490300864092 (2) Acute hypercapnic respiratory failure ICD Codes: J96.02 - Acute respiratory failure with hypercapnia SNOMED: 501056228 (3) Respiratory failure with hypoxia ICD Codes: J96.91 - Respiratory failure, unspecified with hypoxia SNOMED: 31547589374558558 Qualifiers: Qualified Codes: J96.01 - Acute respiratory failure with hypoxia (4) COPD (chronic obstructive pulmonary disease) ICD Codes: J44.9 - Chronic obstructive pulmonary disease, unspecified SNOMED: 65545537 (5) History of deep venous thrombosis or pulmonary embolus SNOMED: 027656425 (6) Obesity ICD Codes: E66.9 - Obesity, unspecified SNOMED: 282980211, 409008834 (7) Essential hypertension ICD Codes: I10 - Essential (primary) hypertension SNOMED: 71179559 (8) Diabetes mellitus type 2 in obese ICD Codes: E11.69 - Type 2 diabetes mellitus with other specified complication; E66.9 - Obesity, unspecified SNOMED: 15670642 (9) History of hydrocephalus ICD Codes: Z86.69 - Personal history of other diseases of the nervous system and sense organs SNOMED: 267315269 (10) Schizophrenia ICD Codes: F20.9 - Schizophrenia, unspecified SNOMED: 92321194 (11) Bipolar 1 disorder ICD Codes: F31.9 - Bipolar disorder, unspecified SNOMED: 014080741 (12) Anticoagulant long-term use ICD Codes: Z79.01 - group home (current) use of anticoagulants SNOMED: 838556377 13. Sepsis=gram pos cocci Assessment/Plan: Optimize pulmonary hygiene/mobilize as tolerated PATIENT IS NOW A CANDIDATE FOR TRACHEOSTOMY. DR. YANG AND DR. CADE TO FINALIZE. Non Rebreather mask>BIPAP>intubated S/P Remdesivir IV S/P Solu-Medrol 40 mg IV twice a day. Abx =S/P zosyn and vanco F/U Cx's Monitor volumes and renal function DVT Px: Coumadin Started diet with tube feeds. Monitor blood glucose level closely. On levophed, fentanyl and propofol drips Pulmonary=Dr Cade ID=Dr Gomez Psych consult=Dr Farhadi seroquel at 1/2 previous dose Julia Camp MD Jan 24, 2021 17:43
[2021-01-24] MEDS: Dyna-Hex 2% Top Sol 2oz TOPIC SCH (20:20)
[2021-01-25] VITALS (67 sets, daily range): BP systolic 42–144; BP diastolic 12–79
[2021-01-25] MEDS: Ipratropium Bromide Inhaler INH SCH ×5 (00:54→23:53)
[2021-01-25] MEDS: Albuterol 90mcg Inhaler 8gm INH SCH ×5 (00:54→23:53)
--- NOTE | 2021-01-25 02:39 | Pulmonology Progress Note ---
Subjective ROS Limited/Unobtainable: Yes Allergies: Coded Allergies: No Known Allergies (Unverified , 01/02/21) Objective Last 24 Hour Vital Signs Date Time Temp Pulse Resp B/P (MAP) Pulse Ox O2 Delivery O2 Flow Rate FiO2 01/25/21 02:00 95 22 98/52 (67) 95 01/25/21 01:00 94 22 105/56 (72) 96 01/25/21 00:30 94 22 108/60 (76) 96 01/25/21 00:00 99.7 85 22 123/68 (86) 98 01/25/21 00:00 26 123/68 Mechanical Ventilator 65 01/25/21 00:00 22 123/68 Mechanical Ventilator 65 01/25/21 00:00 123/68 01/25/21 00:00 94 01/25/21 00:00 65 01/25/21 00:00 Mechanical Ventilator 01/24/21 23:45 93 22 65 01/24/21 23:30 93 22 101/56 (71) 96 01/24/21 23:00 93 22 96/53 (67) 96 01/24/21 23:00 96/53 Mechanical Ventilator 65 01/24/21 23:00 22 96/53 Mechanical Ventilator 65 01/24/21 22:30 92 22 96/53 (67) 97 01/24/21 22:00 21 93/53 Mechanical Ventilator 65 01/24/21 22:00 21 93/53 Mechanical Ventilator 65 01/24/21 22:00 92 21 93/53 (66) 97 01/24/21 21:59 92 22 65 01/24/21 21:30 91 22 95/52 (66) 97 01/24/21 21:00 92 22 87/44 (58) 96 01/24/21 21:00 22 87/44 Mechanical Ventilator 65 01/24/21 21:00 22 87/44 Mechanical Ventilator 65.0 01/24/21 20:30 93 22 93/52 (66) 97 01/24/21 20:00 96 01/24/21 20:00 99.8 94 22 97/56 (70) 99 01/24/21 20:00 Mechanical Ventilator 01/24/21 20:00 22 97/56 Mechanical Ventilator 65 01/24/21 20:00 22 97/56 Mechanical Ventilator 65 2/25/21 20:00 65 01/24/21 19:53 94 22 65 01/24/21 19:00 97 22 95/54 (68) 97 01/24/21 19:00 22 95/54 Mechanical Ventilator 65 01/24/21 19:00 22 95/54 Mechanical Ventilator 65 01/24/21 18:30 97 22 101/54 (70) 97 01/24/21 18:15 22 101/54 Mechanical Ventilator 65 01/24/21 18:15 105/53 01/24/21 18:00 22 104/62 Mechanical Ventilator 65 01/24/21 18:00 22 104/62 Mechanical Ventilator 65 01/24/21 18:00 97 22 94/55 (68) 97 01/24/21 17:30 96 22 102/55 (71) 97 01/24/21 17:00 22 105/61 Mechanical Ventilator 65 01/24/21 17:00 22 105/61 Mechanical Ventilator 65 01/24/21 17:00 95 22 105/60 (75) 97 01/24/21 16:00 99.9 96 22 96/54 (68) 97 01/24/21 16:00 Mechanical Ventilator 01/24/21 16:00 96 01/24/21 16:00 22 105/53 Mechanical Ventilator 65 01/24/21 16:00 22 105/53 Mechanical Ventilator 65 01/24/21 16:00 65 01/24/21 15:30 97 22 99/58 (72) 97 01/24/21 15:27 96 22 65 01/24/21 15:00 22 97/54 Mechanical Ventilator 65 01/24/21 15:00 22 97/54 65.0 01/24/21 15:00 99 22 92/49 (63) 96 01/24/21 14:30 94 22 98/50 (66) 97 01/24/21 14:00 22 106/63 Mechanical Ventilator 65 01/24/21 14:00 22 106/63 Mechanical Ventilator 65 01/24/21 14:00 93 22 104/60 (75) 97 01/24/21 13:56 93 22 65 01/24/21 13:30 113/61 01/24/21 13:30 113 22 66/37 (47) 94 01/24/21 13:00 93 22 97/53 (68) 97 01/24/21 13:00 22 129/77 Mechanical Ventilator 65 01/24/21 13:00 22 129/77 Mechanical Ventilator 65 01/24/21 12:30 91 22 98/55 (69) 97 01/24/21 12:00 65 01/24/21 12:00 91 01/24/21 12:00 Mechanical Ventilator 01/24/21 12:00 22 95/51 Mechanical Ventilator 65 01/24/21 12:00 22 95/51 Mechanical Ventilator 65 01/24/21 12:00 99.9 90 22 110/61 (77) 97 01/24/21 11:30 89 22 108/58 (75) 96 01/24/21 11:00 89 22 100/49 (66) 96 01/24/21 11:00 22 111/61 Mechanical Ventilator 65 01/24/21 11:00 22 111/61 Mechanical Ventilator 65 01/24/21 10:50 88 22 65 01/24/21 10:00 22 113/61 Mechanical Ventilator 65 01/24/21 10:00 22 113/61 Mechanical Ventilator 65 01/24/21 10:00 86 22 117/68 (84) 97 01/24/21 09:30 88 22 99/56 (70) 96 01/24/21 09:00 22 104/53 Mechanical Ventilator 65 01/24/21 09:00 22 104/53 Mechanical Ventilator 65 01/24/21 09:00 85 22 123/72 (89) 97 01/24/21 08:30 83 22 127/72 (90) 97 01/24/21 08:01 22 98/61 Mechanical Ventilator 65 01/24/21 08:00 22 126/74 Mechanical Ventilator 65 01/24/21 08:00 65 01/24/21 08:00 70 01/24/21 08:00 Mechanical Ventilator 01/24/21 08:00 99.8 83 22 129/72 (91) 97 01/24/21 07:30 22 98/61 Mechanical Ventilator 65 01/24/21 07:30 98/61 01/24/21 07:29 22 98/61 Mechanical Ventilator 65 01/24/21 07:29 90 22 65 01/24/21 07:00 85 22 98/61 (73) 97 01/24/21 07:00 22 98/61 Mechanical Ventilator 65 01/24/21 06:00 22 102/62 Mechanical Ventilator 65 01/24/21 06:00 99.9 84 22 102/62 (75) 97 01/24/21 05:00 84 22 97/54 (68) 96 01/24/21 05:00 22 97/54 Mechanical Ventilator 65 01/24/21 05:00 22 97/54 Mechanical Ventilator 65 01/24/21 04:46 83 22 65 01/24/21 04:00 83 01/24/21 04:00 Mechanical Ventilator 01/24/21 04:00 22 95/53 Mechanical Ventilator 65 01/24/21 04:00 22 95/53 Mechanical Ventilator 65 01/24/21 04:00 83 22 95/53 (67) 96 01/24/21 04:00 65 01/24/21 03:00 82 22 94/58 (70) 96 01/24/21 03:00 22 94/58 01/24/21 03:00 22 94/58 Mechanical Ventilator 65 01/24/21 02:59 81 22 65 Intake and Output 01/24/21 01/25/21 19:00 07:00 Intake Total 1391.5 ml 520 ml Output Total 540 ml 280 ml Balance 851.5 ml 240 ml Free Water 120 ml 30 ml IV Total 911.5 ml 340 ml Tube Feeding 360 ml 150 ml Output Urine Total 540 ml 280 ml Laboratory Tests 01/24/21 04:09: White Blood Count 8.6, Red Blood Count 4.58L, Hemoglobin 13.2L, Hematocrit 41.9L , Mean Corpuscular Volume 91, Mean Corpuscular Hemoglobin 28.7, Mean Corpuscular Hemoglobin Concent 31.5L, Red Cell Distribution Width 15.1H, Platelet Count 218, Mean Platelet Volume 9.1, Neutrophils (%) (Auto) 63.1, Lymphocytes (%) (Auto) 19.3L, Monocytes (%) (Auto) 11.4H, Eosinophils (%) (Auto) 2.1, Basophils (%) (Auto) 4.1H, Prothrombin Time 36.3H, Prothromb Time International Ratio 3.6H, Sodium Level 137, Potassium Level 4.3, Chloride Level 101, Carbon Dioxide Level 26, Anion Gap 10, Blood Urea Nitrogen 7, Creatinine 0.8, Estimat Glomerular Filtration Rate > 60, Glucose Level 188H, Calcium Level 8.8 Current Medications Medications (Trade) Dose Ordered Sig/Johnny Route PRN Reason Start Time Stop Time Status Last Admin Dose Admin Acetaminophen (Tylenol) 650 mg Q6H PRN NG Temp >100.5 01/09/21 09:15 02/08/21 09:14 01/22/21 23:28 Acetaminophen (Tylenol) 650 mg Q6H PRN NG Mild Pain (Pain Scale 1-3) 01/09/21 09:15 02/08/21 09:14 Albuterol Sulfate (Proventil MDI) 2 puff Q6HRT INH 01/02/21 19:00 04/02/21 18:59 01/25/21 00:54 Benztropine Mesylate (Cogentin) 1 mg EVERY 12 HOURS NG 01/09/21 09:15 02/01/21 09:14 01/24/21 21:00 Chlorhexidine Gluconate (Myranda-Hex 2%) 1 applic DAILY@2000 TOPIC 01/12/21 20:00 04/12/21 19:59 01/24/21 20:20 Dextrose (Dextrose 50%) 25 ml Q30M PRN IV Hypoglycemia 01/06/21 23:45 04/06/21 23:44 Dextrose (Dextrose 50%) 50 ml Q30M PRN IV Hypoglycemia 01/06/21 23:45 04/06/21 23:44 Fentanyl Citrate 250 ml @ 0 mls/hr Q24H IV 01/24/21 06:00 01/26/21 05:59 01/24/21 08:01 Insulin Aspart (NovoLOG) EVERY 6 HOURS SUBQ 01/09/21 12:00 04/04/21 16:29 01/25/21 00:00 Ipratropium Williamson (Atrovent Inh) 1 puffs Q6HRT INH 01/02/21 19:00 02/01/21 18:59 01/25/21 00:54 Lansoprazole (Prevacid) 30 mg DAILY GT 01/24/21 09:00 02/15/21 08:59 01/24/21 08:55 Midazolam HCl 200 ml @ 0 mls/hr Q24H PRN IV Agitation 01/24/21 00:30 01/31/21 00:29 01/24/21 18:15 Midodrine (Pro-Amatine) 10 mg Q8HR ORAL 01/20/21 14:00 04/20/21 13:59 01/24/21 21:50 Norepinephrine Bitartrate 250 ml @ 0 mls/hr Q24H PRN IV hypotension 01/22/21 22:45 01/26/21 22:44 01/25/21 00:00 Ondansetron HCl (Zofran) 4 mg Q4H PRN IVP Nausea & Vomiting 01/02/21 08:15 02/01/21 08:14 Phenylephrine HCl 50 mg/Dextrose 250 ml @ 0 mls/hr Q24H PRN IV hypotension 01/22/21 22:45 01/26/21 22:44 Potassium Chloride (K-Dur) 20 meq TWICE A DAY NG 01/20/21 13:00 04/20/21 12:59 01/24/21 17:11 Quetiapine Fumarate (SEROqueL) 100 mg Q12HR ORAL 01/20/21 15:00 03/06/21 14:59 01/24/21 21:00 Valproic Acid (Depakene) 500 mg Q12HR GT 01/22/21 21:00 02/21/21 20:59 01/24/21 21:00 Warfarin Sodium (Coumadin per pharmacy) 1 ea DAILY PRN MISC Per rx protocol 01/02/21 08:30 02/01/21 08:29 Assessment/Plan Assessment/Plan Pulmonary CCM Progress Note Dateon vist: 01/24/2021 HPI Patient is a 60 man with prior h/o COPD, CPS/bipolar DO, 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 ID following and started on CTx/Azithro + REM + SM, CXR with bilateral infiltrates. Proning as tolerated Sedated in ICU on Ventilator, has OGT/central line PEEP at 7,maintaining O2 sats, FIO2 - 60%, on Levophed PRN Proning timebeing reduced Pressure areas around ETT site - surgery/wound nurse following Will need Trach once HD stable - Surgery following Allergies: Coded Allergies: No Known Allergies (Unverified , 01/02/21) PMH: COPD, CPS/bipolar DO, prior DVT/PE on AC, DM2, HTN and hydrocephalus Physical Exam Deferred Covid19 Vital Signs noted Laboratory Tests noted Imaging noted Height (Feet): 5 Height (Inches): 5.00 Weight (Pounds): 233 Medications Medications noted Assessment/Plan Problem List: (1) Pneumonia due to COVID-19 virus ICD Codes: U07.1 - COVID-19; J12.82 - Pneumonia due to coronavirus disease 2018 SNOMED: 587403021153094201 (2) Acute hypercapnic respiratory failure ICD Codes: J96.02 - Acute respiratory failure with hypercapnia SNOMED: 949192545 (3) Respiratory failure with hypoxia ICD Codes: J96.91 - Respiratory failure, unspecified with hypoxia SNOMED: 19709261102751583 Qualifiers: Qualified Codes: J96.01 - Acute respiratory failure with hypoxia (4) COPD (chronic obstructive pulmonary disease) ICD Codes: J44.9 - Chronic obstructive pulmonary disease, unspecified SNOMED: 72116260 (5) History of deep venous thrombosis or pulmonary embolus SNOMED: 354595417 (6) Obesity ICD Codes: E66.9 - Obesity, unspecified SNOMED: 872219047, 593830389 (7) Essential hypertension ICD Codes: I10 - Essential (primary) hypertension SNOMED: 40725305 (8) Diabetes mellitus type 2 in obese ICD Codes: E11.69 - Type 2 diabetes mellitus with other specified complication; E66.9 - Obesity, unspecified SNOMED: 44560310 (9) History of hydrocephalus ICD Codes: Z86.69 - Personal history of other diseases of the nervous system and sense organs SNOMED: 963118095 (10) Schizophrenia ICD Codes: F20.9 - Schizophrenia, unspecified SNOMED: 52533251 (11) Bipolar 1 disorder ICD Codes: F31.9 - Bipolar disorder, unspecified SNOMED: 164620477 (12) Anticoagulant long-term use ICD Codes: Z79.01 - joint terminal attack controller (current) use of anticoagulants SNOMED: 673035378 Assessment/Plan: ACVC - adjust PRN Reduce proning Adjust FiO2 to keep SaO2 > 92% Reduce PEEP as tolerated Pressors PRN Sedation PRN HFA's F/U inflammatory markers and covid labs ID recs REM per ID Wean SM to off - 10QD previously Abx per ID F/U Cx's Monitor volumes and renal function,diuresis per Renal DVT Px: Coumadin TF when not proned FC Will need tracheostomy - did not tolerate weaning Date of visit 01/24/2021 Anuel Luis MD Jan 25, 2021 02:39
[2021-01-25] MEDS: Versed 100mg/NS 200ml 200 ML IV PRN ×2 (04:30→15:05)
[2021-01-25] MEDS: Norepinephrine 4mg/NS Premix 250 ML IV PRN ×2 (05:30)
[2021-01-25] MEDS: fentaNYL 2500mcg/NS 250ml 250 ML IV SCH (05:30)
[2021-01-25 05:53] LABS: INR 3.8 (0.9-1.1)
[2021-01-25] MEDS: Midodrine 10mg tab ORAL SCH ×3 (05:59→22:00)
[2021-01-25] MEDS: NovoLOG Insulin Flexpen SUBQ SCH ×5 (05:59→23:53)
[2021-01-25] MEDS: Acetaminophen 650mg/20.3ml NG PRN ×2 (06:56→15:21)
--- NOTE | 2021-01-25 08:07 | Infectious Diseases Prog Note ---
Assessment/Plan 60yo M with: Staph epi bacteremia, m/l skin contaminant 01/10 BCx 1/2 +Staph epi 01/13 BCx NTD COVID pna, severe Acute hypoxia 2/2 COVID pna >> intubated 01/06 Febrile to 103 Normal WBC Elevated AST 51 2/2 Tested positive for COVID at [facility] 2 COVID PCR positive / BCx NTD CXR: Multifocal pna MRSA nares neg 01/06 Intubated in ICU CXR: 1. Appropriately positioned endotracheal and enteric tubes. 2. Stable bilateral airspace disease. 01/07 Resp cx +Yasmine albicans (colonizer) 01/11 CXR: Interval improved bilateral lung aeration. Bibasilar infiltrates/atelectasis. Cr 1.1 HIV screen neg PMH: DM2 COPD HTN SNF resident Plan: Start Vancomycin #1 and Zosyn #1 Lux Cx CXR Monitor WBCs Monitor temps 01/22/21 steroids #19, on methylpred 20 IV q12 - defer course to Pulm/Primary, now tapering 01/19/21 SP Zosyn #10 01/14 SP vanco IV #1 01/09 SP CTX #7 01/07 SP azithro #5, RDV #5 This institution does not have access to convalescent plasma and only recommended to give in setting of clinical trial Monitor temp curve, hemodynamics Monitor resp status D/w RN Thank you for this consult. [facility] will continue to follow. Subjective Allergies: Coded Allergies: No Known Allergies (Unverified , 01/02/21) Fever to 103 today Remains on Vent 65% O2 WBCs pending On levophed Objective Last 24 Hour Vital Signs Date Time Temp Pulse Resp B/P (MAP) Pulse Ox O2 Delivery O2 Flow Rate FiO2 01/25/21 07:26 102.8 01/25/21 07:00 101.1 96 22 107/64 (78) 96 01/25/21 06:00 22 107/61 Mechanical Ventilator 65 01/25/21 06:00 22 107/61 Mechanical Ventilator 65 01/25/21 06:00 100 22 107/61 (76) 96 01/25/21 05:30 22 97/54 Mechanical Ventilator 65 01/25/21 05:30 22 97/54 Mechanical Ventilator 65 01/25/21 05:30 97/54 01/25/21 05:22 83 22 65 2/26/21 05:00 22 97/54 Mechanical Ventilator 65 01/25/21 05:00 22 97/54 Mechanical Ventilator 65 01/25/21 05:00 99 22 97/54 (68) 96 01/25/21 04:30 22 107/57 Mechanical Ventilator 65 01/25/21 04:30 101 22 107/57 (74) 96 01/25/21 04:00 Mechanical Ventilator 01/25/21 04:00 65 01/25/21 04:00 22 104/59 65 01/25/21 04:00 22 104/59 Mechanical Ventilator 65 01/25/21 04:00 101 01/25/21 04:00 101 22 104/59 (74) 95 01/25/21 03:48 73 22 65 01/25/21 03:30 96 22 98/54 (69) 96 01/25/21 03:00 95 22 101/57 (72) 96 01/25/21 03:00 22 101/57 Mechanical Ventilator 65 01/25/21 03:00 22 101/57 Mechanical Ventilator 65 01/25/21 02:00 22 98/52 Mechanical Ventilator 65 01/25/21 02:00 22 98/52 Mechanical Ventilator 65 01/25/21 02:00 95 22 98/52 (67) 95 01/25/21 01:26 85 25 65 01/25/21 01:00 94 22 105/56 (72) 96 01/25/21 01:00 22 105/56 Mechanical Ventilator 65 01/25/21 01:00 22 105/56 Mechanical Ventilator 65 01/25/21 00:30 94 22 108/60 (76) 96 01/25/21 00:00 99.7 85 22 123/68 (86) 98 01/25/21 00:00 26 123/68 Mechanical Ventilator 65 01/25/21 00:00 22 123/68 Mechanical Ventilator 65 01/25/21 00:00 123/68 01/25/21 00:00 94 01/25/21 00:00 65 01/25/21 00:00 Mechanical Ventilator 01/24/21 23:45 93 22 65 01/24/21 23:30 93 22 101/56 (71) 96 01/24/21 23:00 93 22 96/53 (67) 96 01/24/21 23:00 96/53 Mechanical Ventilator 65 01/24/21 23:00 22 96/53 Mechanical Ventilator 65 01/24/21 22:30 92 22 96/53 (67) 97 01/24/21 22:00 21 93/53 Mechanical Ventilator 65 01/24/21 22:00 21 93/53 Mechanical Ventilator 65 01/24/21 22:00 92 21 93/53 (66) 97 01/24/21 21:59 92 22 65 01/24/21 21:30 91 22 95/52 (66) 97 01/24/21 21:00 92 22 87/44 (58) 96 01/24/21 21:00 22 87/44 Mechanical Ventilator 65 01/24/21 21:00 22 87/44 Mechanical Ventilator 65.0 01/24/21 20:30 93 22 93/52 (66) 97 01/24/21 20:00 96 01/24/21 20:00 99.8 94 22 97/56 (70) 99 01/24/21 20:00 Mechanical Ventilator 01/24/21 20:00 22 97/56 Mechanical Ventilator 65 01/24/21 20:00 22 97/56 Mechanical Ventilator 65 01/24/21 20:00 65 01/24/21 19:53 94 22 65 01/24/21 19:00 97 22 95/54 (68) 97 01/24/21 19:00 22 95/54 Mechanical Ventilator 65 01/24/21 19:00 22 95/54 Mechanical Ventilator 65 01/24/21 18:30 97 22 101/54 (70) 97 01/24/21 18:15 22 101/54 Mechanical Ventilator 65 01/24/21 18:15 105/53 01/24/21 18:00 22 104/62 Mechanical Ventilator 65 01/24/21 18:00 22 104/62 Mechanical Ventilator 65 01/24/21 18:00 97 22 94/55 (68) 97 01/24/21 17:30 96 22 102/55 (71) 97 01/24/21 17:00 22 105/61 Mechanical Ventilator 65 01/24/21 17:00 22 105/61 Mechanical Ventilator 65 01/24/21 17:00 95 22 105/60 (75) 97 01/24/21 16:00 99.9 96 22 96/54 (68) 97 01/24/21 16:00 Mechanical Ventilator 01/24/21 16:00 96 01/24/21 16:00 22 105/53 Mechanical Ventilator 65 01/24/21 16:00 22 105/53 Mechanical Ventilator 65 01/24/21 16:00 65 01/24/21 15:30 97 22 99/58 (72) 97 01/24/21 15:27 96 22 65 01/24/21 15:00 22 97/54 Mechanical Ventilator 65 01/24/21 15:00 22 97/54 65.0 01/24/21 15:00 99 22 92/49 (63) 96 01/24/21 14:30 94 22 98/50 (66) 97 01/24/21 14:00 22 106/63 Mechanical Ventilator 65 01/24/21 14:00 22 106/63 Mechanical Ventilator 65 01/24/21 14:00 93 22 104/60 (75) 97 01/24/21 13:56 93 22 65 01/24/21 13:30 113/61 01/24/21 13:30 113 22 66/37 (47) 94 01/24/21 13:00 93 22 97/53 (68) 97 01/24/21 13:00 22 129/77 Mechanical Ventilator 65 01/24/21 13:00 22 129/77 Mechanical Ventilator 65 01/24/21 12:30 91 22 98/55 (69) 97 01/24/21 12:00 65 01/24/21 12:00 91 01/24/21 12:00 Mechanical Ventilator 01/24/21 12:00 22 95/51 Mechanical Ventilator 65 01/24/21 12:00 22 95/51 Mechanical Ventilator 65 01/24/21 12:00 99.9 90 22 110/61 (77) 97 01/24/21 11:30 89 22 108/58 (75) 96 01/24/21 11:00 89 22 100/49 (66) 96 01/24/21 11:00 22 111/61 Mechanical Ventilator 65 01/24/21 11:00 22 111/61 Mechanical Ventilator 65 01/24/21 10:50 88 22 65 01/24/21 10:00 22 113/61 Mechanical Ventilator 65 01/24/21 10:00 22 113/61 Mechanical Ventilator 65 01/24/21 10:00 86 22 117/68 (84) 97 01/24/21 09:30 88 22 99/56 (70) 96 01/24/21 09:00 22 104/53 Mechanical Ventilator 65 01/24/21 09:00 22 104/53 Mechanical Ventilator 65 01/24/21 09:00 85 22 123/72 (89) 97 01/24/21 08:30 83 22 127/72 (90) 97 Height (Feet): 5 Height (Inches): 5.00 Weight (Pounds): 233 Gen: NAD on Vent 65% O2 satting well HEENT: NCAT, ETT Pulm: BL chest rise, RRR Ext: No c/c/e Skin: No visible rashes Neuro: Not following Laboratory Tests Test 01/25/21 03:20 Prothrombin Time 37.4 SEC (9.30-11.50) H Prothromb Time International Ratio 3.8 (0.9-1.1) H Current Medications Medications (Trade) Dose Ordered Sig/Johnny Route PRN Reason Start Time Stop Time Status Last Admin Dose Admin Acetaminophen (Tylenol) 650 mg Q6H PRN NG Temp >100.5 01/09/21 09:15 02/08/21 09:14 01/25/21 06:56 Acetaminophen (Tylenol) 650 mg Q6H PRN NG Mild Pain (Pain Scale 1-3) 01/09/21 09:15 02/08/21 09:14 Albuterol Sulfate (Proventil MDI) 2 puff Q6HRT INH 01/02/21 19:00 04/02/21 18:59 01/25/21 06:12 Benztropine Mesylate (Cogentin) 1 mg EVERY 12 HOURS NG 01/09/21 09:15 02/01/21 09:14 01/24/21 21:00 Chlorhexidine Gluconate (Myranda-Hex 2%) 1 applic DAILY@2000 TOPIC 01/12/21 20:00 04/12/21 19:59 01/24/21 20:20 Dextrose (Dextrose 50%) 25 ml Q30M PRN IV Hypoglycemia 01/06/21 23:45 04/06/21 23:44 Dextrose (Dextrose 50%) 50 ml Q30M PRN IV Hypoglycemia 01/06/21 23:45 04/06/21 23:44 Fentanyl Citrate 250 ml @ 0 mls/hr Q24H IV 01/24/21 06:00 01/26/21 05:59 01/25/21 05:30 Insulin Aspart (NovoLOG) EVERY 6 HOURS SUBQ 01/09/21 12:00 04/04/21 16:29 01/25/21 05:59 Ipratropium [place] (Atrovent Inh) 1 puffs Q6HRT INH 01/02/21 19:00 02/01/21 18:59 01/25/21 06:12 Lansoprazole (Prevacid) 30 mg DAILY GT 01/24/21 09:00 02/15/21 08:59 01/24/21 08:55 Midazolam HCl 200 ml @ 0 mls/hr Q24H PRN IV Agitation 01/24/21 00:30 01/31/21 00:29 01/25/21 04:30 Midodrine (Pro-Amatine) 10 mg Q8HR ORAL 01/20/21 14:00 04/20/21 13:59 01/25/21 05:59 Norepinephrine Bitartrate 16 mg/ Sodium Chloride 516 ml @ 23.22 mls/ hr Q24H IV 01/25/21 06:45 01/28/21 06:44 Ondansetron HCl (Zofran) 4 mg Q4H PRN IVP Nausea & Vomiting 01/02/21 08:15 02/01/21 08:14 Phenylephrine HCl 50 mg/Dextrose 250 ml @ 0 mls/hr Q24H PRN IV hypotension 01/22/21 22:45 01/26/21 22:44 Potassium Chloride (K-Dur) 20 meq TWICE A DAY NG 01/20/21 13:00 04/20/21 12:59 01/24/21 17:11 Quetiapine Fumarate (SEROqueL) 100 mg Q12HR ORAL 01/20/21 15:00 03/06/21 14:59 01/24/21 21:00 Valproic Acid (Depakene) 500 mg Q12HR GT 01/22/21 21:00 02/21/21 20:59 01/24/21 21:00 Warfarin Sodium (Coumadin per pharmacy) 1 ea DAILY PRN MISC Per rx protocol 01/02/21 08:30 02/01/21 08:29 Anuel Crespo MD Jan 25, 2021 08:07
[2021-01-25] MEDS: Benztropine 1mg tab NG SCH ×2 (08:20→21:00)
[2021-01-25] MEDS: Valproic Acid 250mg/5ml Liquid GT SCH ×2 (08:20→21:00)
[2021-01-25] MEDS: Piperacillin/Tazobactam 3.375 GM in NS 110 ML IVPB SCH ×2 (09:31→17:32)
--- NOTE | 2021-01-25 10:38 | Nephrology Progress Note ---
Assessment/Plan Problem List: (1) Hyperkalemia (2) Pneumonia due to COVID-19 virus (3) Respiratory failure with hypoxia (4) Obesity (5) Schizophrenia (6) DMII (diabetes mellitus, type 2) Assessment Hyperkalemia Stable renal parameters Hyperglycemia Covid pneumonia due to COVID-19 virus Acute respiratory failure with hypoxia requiring mechanical ventilation History of COPD History of DVT, pulmonary emboli Obese Hypertension History of diabetes Psych condition, schizophrenia, bipolar disease Plan January 25: Status unchanged. Blood pressure low. Remains full code on ventilator. Continue per consultants. Medication list reviewed. INR is 3.8 today. January 24: Status quo. Intubated on ventilator and full code. Labs reviewed. Medication list reviewed. Continue per consultants. January 23: Patient on prone position. IntubatedFiO2 65%. Renal parameters stable. Continue per consultants. Date hospitalization. Possible trach?. January 22: FiO2 50%. Prone position. Labs reviewed. Stable from renal standpoint of view. Continue per consultants. January 21: Full code. Intubated on ventilator. FiO2 40%. Labs reviewed. Renal parameters stable. Continue per consultants. January 20: Status unchanged. Full code. On ventilator. Chest x-ray reviewed. IV fluid discontinued. Potassium supplement given. 1 dose of Lasix given. Albumin bolus given. Midodrine started. Will monitor renal parameters and electrolytes. Discussed with JOHAN Mohamud. January 19: Labs reviewed. Renal parameters stable. Remains full code intubated on ventilator. FiO2 50%. Continue per consultants. January 18: Full code. Intubated. On ventilator. FiO2 down to 35%. No labs drawn today. Continue to monitor renal parameters and electrolytes. January 17: Full code. Intubated on ventilator. FiO2 remains at 60%. Labs reviewed. Renal parameters stable. January 16: Full code. Intubated. Labs reviewed. Renal parameters stable. FiO2 60%. Continue per consultants. January 15: Patient remains intubated and full code. Labs reviewed. Stable renal parameters. January 14: Patient full code. Intubated on ventilator. On prone position until 5 PM. Labs reviewed. Stable from renal standpoint of view. January 13: Labs reviewed. Renal parameters stable. Continue per consultants. Patient remain full code and intubated on ventilator. January 12: Labs reviewed. Renal parameters stable. Patient remains full code. Remains intubated on ventilator and on prone position. Continue per consultants. January 11: Labs reviewed. Renal parameters stable. Continue per consultants. January 10: Labs reviewed. Renal parameters stable. Continue per consultants. Change IV to half-normal saline Kayexalate via NG tube for high potassium Monitor electrolytes and renal parameters Per orders, per consultants Subjective ROS Limited/Unobtainable: Yes Objective Objective Last 24 Hour Vital Signs Date Time Temp Pulse Resp B/P (MAP) Pulse Ox O2 Delivery O2 Flow Rate FiO2 01/25/21 07:26 102.8 01/25/21 07:25 95 21 55 01/25/21 07:00 101.1 96 22 107/64 (78) 96 01/25/21 06:00 22 107/61 Mechanical Ventilator 65 01/25/21 06:00 22 107/61 Mechanical Ventilator 65 01/25/21 06:00 100 22 107/61 (76) 96 01/25/21 05:30 22 97/54 Mechanical Ventilator 65 01/25/21 05:30 22 97/54 Mechanical Ventilator 65 01/25/21 05:30 97/54 01/25/21 05:22 83 22 65 01/25/21 05:00 22 97/54 Mechanical Ventilator 65 01/25/21 05:00 22 97/54 Mechanical Ventilator 65 01/25/21 05:00 99 22 97/54 (68) 96 01/25/21 04:30 22 107/57 Mechanical Ventilator 65 01/25/21 04:30 101 22 107/57 (74) 96 01/25/21 04:00 Mechanical Ventilator 01/25/21 04:00 65 01/25/21 04:00 22 104/59 65 01/25/21 04:00 22 104/59 Mechanical Ventilator 65 01/25/21 04:00 101 01/25/21 04:00 101 22 104/59 (74) 95 01/25/21 03:48 73 22 65 01/25/21 03:30 96 22 98/54 (69) 96 01/25/21 03:00 95 22 101/57 (72) 96 01/25/21 03:00 22 101/57 Mechanical Ventilator 65 01/25/21 03:00 22 101/57 Mechanical Ventilator 65 01/25/21 02:00 22 98/52 Mechanical Ventilator 65 01/25/21 02:00 22 98/52 Mechanical Ventilator 65 01/25/21 02:00 95 22 98/52 (67) 95 01/25/21 01:26 85 25 65 01/25/21 01:00 94 22 105/56 (72) 96 01/25/21 01:00 22 105/56 Mechanical Ventilator 65 01/25/21 01:00 22 105/56 Mechanical Ventilator 65 01/25/21 00:30 94 22 108/60 (76) 96 01/25/21 00:00 99.7 85 22 123/68 (86) 98 01/25/21 00:00 26 123/68 Mechanical Ventilator 65 01/25/21 00:00 22 123/68 Mechanical Ventilator 65 01/25/21 00:00 123/68 01/25/21 00:00 94 01/25/21 00:00 65 01/25/21 00:00 Mechanical Ventilator 01/24/21 23:45 93 22 65 01/24/21 23:30 93 22 101/56 (71) 96 01/24/21 23:00 93 22 96/53 (67) 96 01/24/21 23:00 96/53 Mechanical Ventilator 65 01/24/21 23:00 22 96/53 Mechanical Ventilator 65 01/24/21 22:30 92 22 96/53 (67) 97 01/24/21 22:00 21 93/53 Mechanical Ventilator 65 01/24/21 22:00 21 93/53 Mechanical Ventilator 65 01/24/21 22:00 92 21 93/53 (66) 97 01/24/21 21:59 92 22 65 01/24/21 21:30 91 22 95/52 (66) 97 01/24/21 21:00 92 22 87/44 (58) 96 01/24/21 21:00 22 87/44 Mechanical Ventilator 65 01/24/21 21:00 22 87/44 Mechanical Ventilator 65.0 01/24/21 20:30 93 22 93/52 (66) 97 01/24/21 20:00 96 01/24/21 20:00 99.8 94 22 97/56 (70) 99 01/24/21 20:00 Mechanical Ventilator 01/24/21 20:00 22 97/56 Mechanical Ventilator 65 01/24/21 20:00 22 97/56 Mechanical Ventilator 65 01/24/21 20:00 65 01/24/21 19:53 94 22 65 01/24/21 19:00 97 22 95/54 (68) 97 01/24/21 19:00 22 95/54 Mechanical Ventilator 65 01/24/21 19:00 22 95/54 Mechanical Ventilator 65 01/24/21 18:30 97 22 101/54 (70) 97 01/24/21 18:15 22 101/54 Mechanical Ventilator 65 01/24/21 18:15 105/53 01/24/21 18:00 22 104/62 Mechanical Ventilator 65 01/24/21 18:00 22 104/62 Mechanical Ventilator 65 01/24/21 18:00 97 22 94/55 (68) 97 01/24/21 17:30 96 22 102/55 (71) 97 01/24/21 17:00 22 105/61 Mechanical Ventilator 65 01/24/21 17:00 22 105/61 Mechanical Ventilator 65 01/24/21 17:00 95 22 105/60 (75) 97 01/24/21 16:00 99.9 96 22 96/54 (68) 97 01/24/21 16:00 Mechanical Ventilator 01/24/21 16:00 96 01/24/21 16:00 22 105/53 Mechanical Ventilator 65 01/24/21 16:00 22 105/53 Mechanical Ventilator 65 01/24/21 16:00 65 01/24/21 15:30 97 22 99/58 (72) 97 01/24/21 15:27 96 22 65 01/24/21 15:00 22 97/54 Mechanical Ventilator 65 01/24/21 15:00 22 97/54 65.0 01/24/21 15:00 99 22 92/49 (63) 96 01/24/21 14:30 94 22 98/50 (66) 97 01/24/21 14:00 22 106/63 Mechanical Ventilator 65 01/24/21 14:00 22 106/63 Mechanical Ventilator 65 01/24/21 14:00 93 22 104/60 (75) 97 01/24/21 13:56 93 22 65 01/24/21 13:30 113/61 01/24/21 13:30 113 22 66/37 (47) 94 01/24/21 13:00 93 22 97/53 (68) 97 01/24/21 13:00 22 129/77 Mechanical Ventilator 65 01/24/21 13:00 22 129/77 Mechanical Ventilator 65 01/24/21 12:30 91 22 98/55 (69) 97 01/24/21 12:00 65 01/24/21 12:00 91 01/24/21 12:00 Mechanical Ventilator 01/24/21 12:00 22 95/51 Mechanical Ventilator 65 01/24/21 12:00 22 95/51 Mechanical Ventilator 65 01/24/21 12:00 99.9 90 22 110/61 (77) 97 01/24/21 11:30 89 22 108/58 (75) 96 01/24/21 11:00 89 22 100/49 (66) 96 01/24/21 11:00 22 111/61 Mechanical Ventilator 65 01/24/21 11:00 22 111/61 Mechanical Ventilator 65 01/24/21 10:50 88 22 65 Intake and Output 01/24/21 01/25/21 19:00 07:00 Intake Total 1391.5 ml 988.5 ml Output Total 540 ml 480 ml Balance 851.5 ml 508.5 ml Free Water 120 ml 30 ml IV Total 911.5 ml 808.5 ml Tube Feeding 360 ml 150 ml Output Urine Total 540 ml 480 ml Current Medications Medications (Trade) Dose Ordered Sig/Johnny Route PRN Reason Start Time Stop Time Status Last Admin Dose Admin Acetaminophen (Tylenol) 650 mg Q6H PRN NG Temp >100.5 01/09/21 09:15 02/08/21 09:14 01/25/21 06:56 Acetaminophen (Tylenol) 650 mg Q6H PRN NG Mild Pain (Pain Scale 1-3) 01/09/21 09:15 02/08/21 09:14 Albuterol Sulfate (Proventil MDI) 2 puff Q6HRT INH 01/02/21 19:00 04/02/21 18:59 01/25/21 06:12 Benztropine Mesylate (Cogentin) 1 mg EVERY 12 HOURS NG 01/09/21 09:15 02/01/21 09:14 01/25/21 08:20 Chlorhexidine Gluconate (Myranda-Hex 2%) 1 applic DAILY@2000 TOPIC 01/12/21 20:00 04/12/21 19:59 01/24/21 20:20 Dextrose (Dextrose 50%) 25 ml Q30M PRN IV Hypoglycemia 01/06/21 23:45 04/06/21 23:44 Dextrose (Dextrose 50%) 50 ml Q30M PRN IV Hypoglycemia 01/06/21 23:45 04/06/21 23:44 Fentanyl Citrate 250 ml @ 0 mls/hr Q24H IV 01/24/21 06:00 01/26/21 05:59 01/25/21 05:30 Insulin Aspart (NovoLOG) EVERY 6 HOURS SUBQ 01/09/21 12:00 04/04/21 16:29 01/25/21 05:59 Ipratropium [place] (Atrovent Inh) 1 puffs Q6HRT INH 01/02/21 19:00 02/01/21 18:59 01/25/21 06:12 Lansoprazole (Prevacid) 30 mg DAILY GT 01/24/21 09:00 02/15/21 08:59 01/25/21 08:20 Midazolam HCl 200 ml @ 0 mls/hr Q24H PRN IV Agitation 01/24/21 00:30 01/31/21 00:29 01/25/21 04:30 Midodrine (Pro-Amatine) 10 mg Q8HR ORAL 01/20/21 14:00 04/20/21 13:59 01/25/21 05:59 Norepinephrine Bitartrate 16 mg/ Sodium Chloride 516 ml @ 23.22 mls/ hr Q24H IV 01/25/21 06:45 01/28/21 06:44 01/25/21 11:29 Ondansetron HCl (Zofran) 4 mg Q4H PRN IVP Nausea & Vomiting 01/02/21 08:15 02/01/21 08:14 Phenylephrine HCl 50 mg/Dextrose 250 ml @ 0 mls/hr Q24H PRN IV hypotension 01/22/21 22:45 01/26/21 22:44 Piperacillin Sod/ Tazobactam Sod 3.375 gm/Sodium Chloride 110 ml @ 27.5 mls/hr Q8H IVPB 01/25/21 10:00 02/01/21 09:59 01/25/21 09:31 Potassium Chloride (K-Dur) 20 meq TWICE A DAY NG 01/20/21 13:00 04/20/21 12:59 01/25/21 08:21 Quetiapine Fumarate (SEROqueL) 100 mg Q12HR ORAL 01/20/21 15:00 03/06/21 14:59 01/25/21 08:20 Valproic Acid (Depakene) 500 mg Q12HR GT 01/22/21 21:00 02/21/21 20:59 01/25/21 08:20 Vancomycin HCl 250 ml @ 166.667 mls/hr Q12H IVPB 01/25/21 14:00 01/30/21 13:59 Vancomycin HCl (Vanco pharmacy to dose) 1 ea DAILY PRN MISC Per rx protocol 01/25/21 08:15 02/24/21 08:14 Warfarin Sodium (Coumadin per pharmacy) 1 ea DAILY PRN MISC Per rx protocol 01/02/21 08:30 02/01/21 08:29 Laboratory Tests 01/25/21 03:20: Prothrombin Time 37.4H, Prothromb Time International Ratio 3.8H Height (Feet): 5 Height (Inches): 5.00 Weight (Pounds): 233 General Appearance: no apparent distress, other - Febrile EENT: other - Intubated on ventilator Cardiovascular: tachycardia Respiratory/Chest: decreased breath sounds Abdomen: distended Avi Frye MD Jan 25, 2021 10:38
--- NOTE | 2021-01-25 10:57 | Diagnostic Imaging Report ---
Procedure: XRAY Chest 1v Reason for study: Reason For Exam: SOB Comparison films: 01/20/2021. FINDINGS: Radiograph is underpenetrated. Endotracheal tube and NG tube are unchanged. Bilateral basilar densities unchanged. Cardiac and mediastinal silhouette are within normal limits. CP angles are sharp. The bony thorax appear unremarkable. IMPRESSION: NO SIGNIFICANT CHANGE COMPARED TO PREVIOUS EXAM.
[2021-01-25] MEDS: Norepinephrine Bitartrate 16 MG in NS 500 ML IV SCH (11:29)
[2021-01-25 12:25] LABS: EOSINOPHILS % (AUTO) 2.2 % (0.0-3.0); HEMATOCRIT 41.6 % (42.0-52.0); HEMOGLOBIN 12.7 G/DL (14.2-18.0); LYMPHOCYTES % (AUTO) 20.5 % (20.0-45.0); MEAN CORPUSCULAR VOLUME 92 FL (80-99); MONOCYTES % (AUTO) 13.9 % (1.0-10.0); NEUTROPHILS % (AUTO) 56.4 % (45.0-75.0); PLATELET COUNT 156 K/UL (150-450); RED BLOOD COUNT 4.55 M/UL (4.70-6.10); RED CELL DISTRIBUTION WIDTH 14.9 % (11.6-14.8)
[2021-01-25 12:42] LABS: ALANINE AMINOTRANSFERASE 28 U/L (12-78); ALBUMIN 1.9 G/DL (3.4-5.0); ALBUMIN/GLOBULIN RATIO 0.4 (1.0-2.7); ALKALINE PHOSPHATASE 54 U/L (46-116); ANION GAP 9 mmol/L (5-15); ASPARTATE AMINO TRANSFERASE 29 U/L (15-37); BILIRUBIN,TOTAL 0.4 MG/DL (0.2-1.0); BLOOD UREA NITROGEN 7 mg/dL (7-18); CALCIUM 8.2 MG/DL (8.5-10.1); CARBON DIOXIDE 27 MMOL/L (21-32); CHLORIDE 104 MMOL/L (98-107); CREATININE 1.1 MG/DL (0.55-1.30); PHOSPHORUS 2.7 MG/DL (2.5-4.9); POTASSIUM 4.2 MMOL/L (3.5-5.1); SODIUM 139 MMOL/L (136-145)
[2021-01-25] MEDS: Vancomycin 1.25gm Premix q24h IVPB SCH (15:03)
--- NOTE | 2021-01-25 15:45 | General Progress Note ---
Subjective Date patient seen: Jan 25, 2021 ROS Limited/Unobtainable: Yes Allergies: Coded Allergies: No Known Allergies (Unverified , 01/02/21) Subjective unresponsive and intubated. Objective Last 24 Hour Vital Signs Date Time Temp Pulse Resp B/P (MAP) Pulse Ox O2 Delivery O2 Flow Rate FiO2 01/25/21 15:05 22 92/50 Mechanical Ventilator 55 01/25/21 14:29 79 22 55 01/25/21 12:11 79 22 55 01/25/21 12:00 96/50 01/25/21 12:00 22 96/50 Mechanical Ventilator 100 01/25/21 12:00 22 96/50 Mechanical Ventilator 100 01/25/21 11:29 42/01/25/21 11:00 22 12 Mechanical Ventilator 100 01/25/21 11:00 22 12 Mechanical Ventilator 100 01/25/21 11:00 94 22 100 01/25/21 10:00 22 92/46 Mechanical Ventilator 55 01/25/21 10:00 22 92/46 Mechanical Ventilator 55 01/25/21 09:00 22 71/33 Mechanical Ventilator 55 01/25/21 09:00 22 71/33 Mechanical Ventilator 55 01/25/21 08:00 22 110/64 Mechanical Ventilator 55 01/25/21 08:00 22 110/64 Mechanical Ventilator 55 01/25/21 07:26 102.8 01/25/21 07:25 95 21 55 01/25/21 07:00 101.1 96 22 107/64 (78) 96 01/25/21 07:00 107/64 01/25/21 07:00 22 107/64 Mechanical Ventilator 65 01/25/21 07:00 22 107/64 Mechanical Ventilator 65 01/25/21 06:00 22 107/61 Mechanical Ventilator 65 01/25/21 06:00 22 107/61 Mechanical Ventilator 65 01/25/21 06:00 100 22 107/61 (76) 96 01/25/21 05:30 22 97/54 Mechanical Ventilator 65 01/25/21 05:30 22 97/54 Mechanical Ventilator 65 01/25/21 05:30 97/54 01/25/21 05:22 83 22 65 01/25/21 05:00 22 97/54 Mechanical Ventilator 65 01/25/21 05:00 22 97/54 Mechanical Ventilator 65 01/25/21 05:00 99 22 97/54 (68) 96 01/25/21 04:30 22 107/57 Mechanical Ventilator 65 01/25/21 04:30 101 22 107/57 (74) 96 01/25/21 04:00 Mechanical Ventilator 01/25/21 04:00 65 01/25/21 04:00 22 104/59 65 01/25/21 04:00 22 104/59 Mechanical Ventilator 65 01/25/21 04:00 101 01/25/21 04:00 101 22 104/59 (74) 95 01/25/21 03:48 73 22 65 01/25/21 03:30 96 22 98/54 (69) 96 01/25/21 03:00 95 22 101/57 (72) 96 01/25/21 03:00 22 101/57 Mechanical Ventilator 65 01/25/21 03:00 22 101/57 Mechanical Ventilator 65 01/25/21 02:00 22 98/52 Mechanical Ventilator 65 01/25/21 02:00 22 98/52 Mechanical Ventilator 65 01/25/21 02:00 95 22 98/52 (67) 95 01/25/21 01:26 85 25 65 01/25/21 01:00 94 22 105/56 (72) 96 01/25/21 01:00 22 105/56 Mechanical Ventilator 65 01/25/21 01:00 22 105/56 Mechanical Ventilator 65 01/25/21 00:30 94 22 108/60 (76) 96 01/25/21 00:00 99.7 85 22 123/68 (86) 98 01/25/21 00:00 26 123/68 Mechanical Ventilator 65 01/25/21 00:00 22 123/68 Mechanical Ventilator 65 01/25/21 00:00 123/68 01/25/21 00:00 94 01/25/21 00:00 65 01/25/21 00:00 Mechanical Ventilator 01/24/21 23:45 93 22 65 01/24/21 23:30 93 22 101/56 (71) 96 01/24/21 23:00 93 22 96/53 (67) 96 01/24/21 23:00 96/53 Mechanical Ventilator 65 01/24/21 23:00 22 96/53 Mechanical Ventilator 65 01/24/21 22:30 92 22 96/53 (67) 97 01/24/21 22:00 21 93/53 Mechanical Ventilator 65 01/24/21 22:00 21 93/53 Mechanical Ventilator 65 01/24/21 22:00 92 21 93/53 (66) 97 01/24/21 21:59 92 22 65 01/24/21 21:30 91 22 95/52 (66) 97 01/24/21 21:00 92 22 87/44 (58) 96 01/24/21 21:00 22 87/44 Mechanical Ventilator 65 01/24/21 21:00 22 87/44 Mechanical Ventilator 65.0 01/24/21 20:30 93 22 93/52 (66) 97 01/24/21 20:00 96 01/24/21 20:00 99.8 94 22 97/56 (70) 99 01/24/21 20:00 Mechanical Ventilator 01/24/21 20:00 22 97/56 Mechanical Ventilator 65 01/24/21 20:00 22 97/56 Mechanical Ventilator 65 01/24/21 20:00 65 01/24/21 19:53 94 22 65 01/24/21 19:00 97 22 95/54 (68) 97 01/24/21 19:00 22 95/54 Mechanical Ventilator 65 01/24/21 19:00 22 95/54 Mechanical Ventilator 65 01/24/21 18:30 97 22 101/54 (70) 97 01/24/21 18:15 22 101/54 Mechanical Ventilator 65 01/24/21 18:15 105/53 01/24/21 18:00 22 104/62 Mechanical Ventilator 65 01/24/21 18:00 22 104/62 Mechanical Ventilator 65 01/24/21 18:00 97 22 94/55 (68) 97 01/24/21 17:30 96 22 102/55 (71) 97 01/24/21 17:00 22 105/61 Mechanical Ventilator 65 01/24/21 17:00 22 105/61 Mechanical Ventilator 65 01/24/21 17:00 95 22 105/60 (75) 97 01/24/21 16:00 99.9 96 22 96/54 (68) 97 01/24/21 16:00 Mechanical Ventilator 01/24/21 16:00 96 01/24/21 16:00 22 105/53 Mechanical Ventilator 65 01/24/21 16:00 22 105/53 Mechanical Ventilator 65 01/24/21 16:00 65 Intake and Output 01/24/21 01/25/21 19:00 07:00 Intake Total 1391.5 ml 1065.5 ml Output Total 540 ml 480 ml Balance 851.5 ml 585.5 ml Free Water 120 ml 30 ml IV Total 911.5 ml 885.5 ml Tube Feeding 360 ml 150 ml Output Urine Total 540 ml 480 ml Laboratory Tests 01/25/21 03:20: Prothrombin Time 37.4H, Prothromb Time International Ratio 3.8H 01/25/21 12:00: White Blood Count 8.0, Red Blood Count 4.55L, Hemoglobin 12.7L, Hematocrit 41.6L , Mean Corpuscular Volume 92, Mean Corpuscular Hemoglobin 27.8, Mean Corpuscular Hemoglobin Concent 30.4L, Red Cell Distribution Width 14.9H, Platelet Count 156, Mean Platelet Volume 8.3, Neutrophils (%) (Auto) 56.4, Lymphocytes (%) (Auto) 20.5, Monocytes (%) (Auto) 13.9H, Eosinophils (%) (Auto) 2.2, Basophils (%) (Auto) 7.0H, Sodium Level 139, Potassium Level 4.2, Chloride Level 104, Carbon Dioxide Level 27, Anion Gap 9, Blood Urea Nitrogen 7, Creatinine 1.1, Estimat Glomerular Filtration Rate > 60, Glucose Level 299#H, Calcium Level 8.2L, Phosphorus Level 2.7, Magnesium Level 1.8, Total Bilirubin 0.4, Aspartate Amino Transf (AST/SGOT) 29, Alanine Aminotransferase (ALT/SGPT) 28, Alkaline Phosphatase 54, Total Protein 6.5, Albumin 1.9L, Globulin 4.6, Albumin/Globulin Ratio 0.4L Height (Feet): 5 Height (Inches): 5.00 Weight (Pounds): 233 General Appearance: moderate distress EENT: PERRL/EOMI Neck: non-tender Cardiovascular: normal rate Respiratory/Chest: lungs clear Neurologic: chain mender II-XII grossly normal Assessment/Plan Status: unchanged Assessment/Plan: Assessment/Plan (1) Pneumonia due to COVID-19 virus ICD Codes: U07.1 - COVID-19; J12.82 - Pneumonia due to coronavirus disease 2018 SNOMED: 037210972805442659 (2) Acute hypercapnic respiratory failure ICD Codes: J96.02 - Acute respiratory failure with hypercapnia SNOMED: 061257770 (3) Respiratory failure with hypoxia ICD Codes: J96.91 - Respiratory failure, unspecified with hypoxia SNOMED: 38752411676971500 Qualifiers: Qualified Codes: J96.01 - Acute respiratory failure with hypoxia (4) COPD (chronic obstructive pulmonary disease) ICD Codes: J44.9 - Chronic obstructive pulmonary disease, unspecified SNOMED: 53533251 (5) History of deep venous thrombosis or pulmonary embolus SNOMED: 613645568 (6) Obesity ICD Codes: E66.9 - Obesity, unspecified SNOMED: 135873511, 313667761 (7) Essential hypertension ICD Codes: I10 - Essential (primary) hypertension SNOMED: 26031308 (8) Diabetes mellitus type 2 in obese ICD Codes: E11.69 - Type 2 diabetes mellitus with other specified complication; E66.9 - Obesity, unspecified SNOMED: 73069891 (9) History of hydrocephalus ICD Codes: Z86.69 - Personal history of other diseases of the nervous system and sense organs SNOMED: 107284853 (10) Schizophrenia ICD Codes: F20.9 - Schizophrenia, unspecified SNOMED: 87288118 (11) Bipolar 1 disorder ICD Codes: F31.9 - Bipolar disorder, unspecified SNOMED: 112982361 (12) Anticoagulant long-term use ICD 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 Sepsis=gram pos cocci Assessment/Plan: Optimize pulmonary hygiene/mobilize as tolerated PATIENT IS NOW A CANDIDATE FOR TRACHEOSTOMY. DR. YANG AND DR. CADE TO FINALIZE. Non Rebreather mask>BIPAP>intubated S/P Remdesivir IV S/P Solu-Medrol 40 mg IV twice a day. Abx =S/P zosyn and vanco F/U Cx's Monitor volumes and renal function DVT Px: Coumadin Started diet with tube feeds. Monitor blood glucose level closely. On levophed, fentanyl and propofol drips Pulmonary=Dr Cade ID=Dr Gomez Psych consult=Dr El hay at 1/2 previous dose Julia Camp MD Jan 25, 2021 15:45
--- NOTE | 2021-01-25 17:21 | Surgery Progress Note ---
Surgery Progress Note Subjective Symptoms: tolerating diet, other Objective Last 24 Hour Vital Signs Date Time Temp Pulse Resp B/P (MAP) Pulse Ox O2 Delivery O2 Flow Rate FiO2 01/25/21 16:30 84 22 110/70 (83) 96 01/25/21 16:15 87 22 98/59 (72) 95 01/25/21 16:00 101.6 85 21 96/73 (81) 97 01/25/21 16:00 Mechanical Ventilator 01/25/21 16:00 22 96/73 Mechanical Ventilator 45 01/25/21 16:00 22 96/73 Mechanical Ventilator 45 01/25/21 16:00 45 01/25/21 15:51 101.3 01/25/21 15:45 84 22 103/59 (74) 97 01/25/21 15:30 82 22 95/55 (68) 98 01/25/21 15:30 45 01/25/21 15:30 81 22 45 01/25/21 15:15 82 22 97/51 (66) 98 01/25/21 15:05 22 92/50 Mechanical Ventilator 55 01/25/21 15:00 22 92/50 Mechanical Ventilator 55 01/25/21 15:00 22 92/50 Mechanical Ventilator 55 01/25/21 15:00 83 22 92/50 (64) 98 01/25/21 14:45 83 22 96/52 (67) 98 01/25/21 14:30 79 22 100/58 (72) 99 01/25/21 14:29 79 22 55 01/25/21 14:15 82 22 95/48 (64) 98 01/25/21 14:00 22 103/56 Mechanical Ventilator 55 01/25/21 14:00 22 103/56 Mechanical Ventilator 55 01/25/21 14:00 101.3 79 22 103/56 (72) 98 01/25/21 13:45 82 22 96/50 (65) 98 01/25/21 13:30 83 22 93/46 (62) 98 01/25/21 13:15 83 22 94/50 (65) 97 01/25/21 13:00 82 22 92/45 (61) 97 01/25/21 13:00 22 92/45 Mechanical Ventilator 55 01/25/21 13:00 22 92/45 Mechanical Ventilator 55 01/25/21 12:45 78 22 101/59 (73) 97 01/25/21 12:30 78 22 107/58 (74) 97 01/25/21 12:15 82 22 88/44 (59) 96 01/25/21 12:11 79 22 55 01/25/21 12:11 55 01/25/21 12:00 96/50 01/25/21 12:00 22 96/50 Mechanical Ventilator 100 01/25/21 12:00 22 96/50 Mechanical Ventilator 100 01/25/21 12:00 102.2 82 22 96/50 (65) 95 01/25/21 12:00 Mechanical Ventilator 01/25/21 11:45 86 22 93/47 (62) 99 01/25/21 11:30 79 22 107/56 (73) 100 01/25/21 11:29 42/12 01/25/21 11:23 80 22 144/79 (100) 96 01/25/21 11:20 90 17 55/13 (27) 96 01/25/21 11:15 91 22 90 01/25/21 11:15 103.4 01/25/21 11:13 90 22 57/29 (38) 89 01/25/21 11:08 97 22 90/51 (64) 87 01/25/21 11:00 94 22 42/12 (22) 85 01/25/21 11:00 22 42/12 Mechanical Ventilator 100 01/25/21 11:00 22 42/12 Mechanical Ventilator 100 01/25/21 11:00 94 22 100 01/25/21 11:00 100 01/25/21 10:45 84 22 109/59 (76) 93 01/25/21 10:30 86 22 102/52 (69) 92 01/25/21 10:15 85 22 101/53 (69) 94 01/25/21 10:00 103.4 86 22 92/46 (61) 94 01/25/21 10:00 22 92/46 Mechanical Ventilator 55 01/25/21 10:00 22 92/46 Mechanical Ventilator 55 01/25/21 09:45 89 21 99/75 (83) 94 01/25/21 09:30 90 21 99/60 (73) 96 01/25/21 09:15 97 22 71/43 (52) 90 01/25/21 09:02 96 22 76/33 (47) 91 01/25/21 09:00 22 71/33 Mechanical Ventilator 55 01/25/21 09:00 22 71/33 Mechanical Ventilator 55 01/25/21 09:00 97 21 71/33 (46) 91 01/25/21 08:45 97 22 114/65 (81) 95 01/25/21 08:30 95 22 111/64 (80) 94 01/25/21 08:15 95 22 111/65 (80) 95 01/25/21 08:00 55 01/25/21 08:00 22 110/64 Mechanical Ventilator 55 01/25/21 08:00 22 110/64 Mechanical Ventilator 55 01/25/21 08:00 Mechanical Ventilator 01/25/21 08:00 105.2 96 22 110/64 (79) 94 01/25/21 07:26 102.8 01/25/21 07:25 55 01/25/21 07:25 95 21 55 01/25/21 07:00 101.1 96 22 107/64 (78) 96 01/25/21 07:00 107/64 01/25/21 07:00 22 107/64 Mechanical Ventilator 65 01/25/21 07:00 22 107/64 Mechanical Ventilator 65 01/25/21 06:00 22 107/61 Mechanical Ventilator 65 01/25/21 06:00 22 107/61 Mechanical Ventilator 65 01/25/21 06:00 100 22 107/61 (76) 96 01/25/21 05:30 22 97/54 Mechanical Ventilator 65 01/25/21 05:30 22 97/54 Mechanical Ventilator 65 01/25/21 05:30 97/54 01/25/21 05:22 83 22 65 01/25/21 05:00 22 97/54 Mechanical Ventilator 65 01/25/21 05:00 22 97/54 Mechanical Ventilator 65 01/25/21 05:00 99 22 97/54 (68) 96 01/25/21 04:30 22 107/57 Mechanical Ventilator 65 01/25/21 04:30 101 22 107/57 (74) 96 01/25/21 04:00 Mechanical Ventilator 01/25/21 04:00 65 01/25/21 04:00 22 104/59 65 01/25/21 04:00 22 104/59 Mechanical Ventilator 65 01/25/21 04:00 101 01/25/21 04:00 101 22 104/59 (74) 95 01/25/21 03:48 73 22 65 01/25/21 03:30 96 22 98/54 (69) 96 01/25/21 03:00 95 22 101/57 (72) 96 01/25/21 03:00 22 101/57 Mechanical Ventilator 65 01/25/21 03:00 22 101/57 Mechanical Ventilator 65 01/25/21 02:00 22 98/52 Mechanical Ventilator 65 01/25/21 02:00 22 98/52 Mechanical Ventilator 65 01/25/21 02:00 95 22 98/52 (67) 95 01/25/21 01:26 85 25 65 01/25/21 01:00 94 22 105/56 (72) 96 01/25/21 01:00 22 105/56 Mechanical Ventilator 65 01/25/21 01:00 22 105/56 Mechanical Ventilator 65 01/25/21 00:30 94 22 108/60 (76) 96 01/25/21 00:00 99.7 85 22 123/68 (86) 98 01/25/21 00:00 26 123/68 Mechanical Ventilator 65 01/25/21 00:00 22 123/68 Mechanical Ventilator 65 01/25/21 00:00 123/68 01/25/21 00:00 94 01/25/21 00:00 65 01/25/21 00:00 Mechanical Ventilator 01/24/21 23:45 93 22 65 01/24/21 23:30 93 22 101/56 (71) 96 01/24/21 23:00 93 22 96/53 (67) 96 01/24/21 23:00 96/53 Mechanical Ventilator 65 01/24/21 23:00 22 96/53 Mechanical Ventilator 65 01/24/21 22:30 92 22 96/53 (67) 97 01/24/21 22:00 21 93/53 Mechanical Ventilator 65 01/24/21 22:00 21 93/53 Mechanical Ventilator 65 01/24/21 22:00 92 21 93/53 (66) 97 01/24/21 21:59 92 22 65 01/24/21 21:30 91 22 95/52 (66) 97 01/24/21 21:00 92 22 87/44 (58) 96 01/24/21 21:00 22 87/44 Mechanical Ventilator 65 01/24/21 21:00 22 87/44 Mechanical Ventilator 65.0 01/24/21 20:30 93 22 93/52 (66) 97 01/24/21 20:00 96 01/24/21 20:00 99.8 94 22 97/56 (70) 99 01/24/21 20:00 Mechanical Ventilator 01/24/21 20:00 22 97/56 Mechanical Ventilator 65 01/24/21 20:00 22 97/56 Mechanical Ventilator 65 01/24/21 20:00 65 01/24/21 19:53 94 22 65 01/24/21 19:00 97 22 95/54 (68) 97 01/24/21 19:00 22 95/54 Mechanical Ventilator 65 01/24/21 19:00 22 95/54 Mechanical Ventilator 65 01/24/21 18:30 97 22 101/54 (70) 97 01/24/21 18:15 22 101/54 Mechanical Ventilator 65 01/24/21 18:15 105/53 01/24/21 18:00 22 104/62 Mechanical Ventilator 65 01/24/21 18:00 22 104/62 Mechanical Ventilator 65 01/24/21 18:00 97 22 94/55 (68) 97 01/24/21 17:30 96 22 102/55 (71) 97 I&O Intake and Output 01/24/21 01/25/21 19:00 07:00 Intake Total 1391.5 ml 1065.5 ml Output Total 540 ml 480 ml Balance 851.5 ml 585.5 ml Free Water 120 ml 30 ml IV Total 911.5 ml 885.5 ml Tube Feeding 360 ml 150 ml Output Urine Total 540 ml 480 ml Cardiovascular: RSR Respiratory: decreased breath sounds Abdomen: non-tender, present bowel sounds, non-distended, decreased bowel sounds Extremities: no tenderness, no cyanosis Laboratory Tests Test 01/25/21 03:20 01/25/21 12:00 Prothrombin Time 37.4 SEC (9.30-11.50) H Prothromb Time International Ratio 3.8 (0.9-1.1) H White Blood Count 8.0 K/UL (4.8-10.8) Red Blood Count 4.55 M/UL (4.70-6.10) L Hemoglobin 12.7 G/DL (14.2-18.0) L Hematocrit 41.6 % (42.0-52.0) L Mean Corpuscular Volume 92 FL (80-99) Mean Corpuscular Hemoglobin 27.8 PG (27.0-31.0) Mean Corpuscular Hemoglobin Concent 30.4 G/DL (32.0-36.0) L Red Cell Distribution Width 14.9 % (11.6-14.8) H Platelet Count 156 K/UL (150-450) Mean Platelet Volume 8.3 FL (6.5-10.1) Neutrophils (%) (Auto) 56.4 % (45.0-75.0) Lymphocytes (%) (Auto) 20.5 % (20.0-45.0) Monocytes (%) (Auto) 13.9 % (1.0-10.0) H Eosinophils (%) (Auto) 2.2 % (0.0-3.0) Basophils (%) (Auto) 7.0 % (0.0-2.0) H Sodium Level 139 MMOL/L (136-145) Potassium Level 4.2 MMOL/L (3.5-5.1) Chloride Level 104 MMOL/L (98-107) Carbon Dioxide Level 27 MMOL/L (21-32) Anion Gap 9 mmol/L (5-15) Blood Urea Nitrogen 7 mg/dL (7-18) Creatinine 1.1 MG/DL (0.55-1.30) Estimat Glomerular Filtration Rate > 60 mL/min (>60) Glucose Level 299 MG/DL (74-106) #H Calcium Level 8.2 MG/DL (8.5-10.1) L Phosphorus Level 2.7 MG/DL (2.5-4.9) Magnesium Level 1.8 MG/DL (1.8-2.4) Total Bilirubin 0.4 MG/DL (0.2-1.0) Aspartate Amino Transf (AST/SGOT) 29 U/L (15-37) Alanine Aminotransferase (ALT/SGPT) 28 U/L (12-78) Alkaline Phosphatase 54 U/L (46-116) Total Protein 6.5 G/DL (6.4-8.2) Albumin 1.9 G/DL (3.4-5.0) L Globulin 4.6 g/dL Albumin/Globulin Ratio 0.4 (1.0-2.7) L Plan Problems: (1) COPD (chronic obstructive pulmonary disease) (2) Essential hypertension (3) Schizophrenia (4) Obesity (5) Diabetes mellitus type 2 in obese (6) History of hydrocephalus (7) Anticoagulant long-term use (8) Bipolar 1 disorder (9) History of deep venous thrombosis or pulmonary embolus (10) Acute hypercapnic respiratory failure (11) Sepsis Assessment & Plan: 60-year-old male Covid positive respiratory insufficiency and severe decline being prone intubated on vent support labs noted septic ill- appearing has been developing wound around the face from ET tube.Receiv ed report from RT pt is being proned and was observed to have developed a blood blister under vent tape on L cheek and L earlobe. Skin assessed and pt was observed to have a blood blister that is 50% de-capped,50% intact. Intact Blood Blister noted to L earlobe. Skin Barrier applied to affected areas. Optifoam Thin foam placed between vent anchor and pt's skin. Optifoam thin placed to R cheek under Vent tape, on Bridge of nose and both earlobes. Given patient's critical status current care plan and findings nutritional optimization is strongly encouraged Covid nutrition plan initiated. All Covid precautions are being taken. Imaging reviewed. Will follow with care plan. Thank you Mike participation care Tx.Plan: Maintain Optifoam Thin foam to R and L cheeks,Bridge of Nose and Both Ears . Change every 7 days and prn.( May request Optifoam Thin from RT dept). APM/PEPE Mattress overlay DAILY ESTIMATED NEEDS: Needs based on Critical care, pulmonary, obese 73.7kg abw 22-28 kcals/kg 5763-4529 total kcals 1.2-2 g protein/kg 88-147 g total protein 25-30 mL/kg 9265-9684 total fluid mLs NUTRITION DIAGNOSIS: Altered nutrition related lab values r/t steroidal meds, clinical status as evidenced by febrile on adm (102.5), elevated BG (270 287) on solumedrol, elevated lipid panel (Triglycerides 333, Chol 370, LDL 150). CURRENT TF:Vital @30ml/hr, now Nepro @30 ENTERAL NUTRITION RECOMMENDATIONS: NEPRO @30ml/hr while supine to provide x8 hrs feeds: 360ml, 648 kcal, 29g pro, 262ml free H2O - Feed at rate best tolerated, currently not meeting est needs d/t proning and aspiration risk w/ supine feeds limited to 8hrs/day. - W/ reduced aspiration risk rec feedings to total Volume of 900ml/day of Nepro as medically able. - Monitor tolerance, position/HOB >30 degrees, hemodynamic stability and ability to increase to meet est kcal and pro needs. - With increase pressor support, rec trophic feeds of 10ml/hr for gut integrity. - When tolerating TF at goal add Prosource BID to better meet est pro needs. ADDITIONAL RECOMMENDATIONS: 1) Now intubated, TF recs above when off proning (8hrs feeds) 2) Obtain calibrated bedscale wts 3) HgA1C/ elevated BG Need for niss while on D5 4) Lytes daily; replete as needed 5) Monitor triglycerides, TF tolerance, hemodynamic stability. (12) Respiratory failure with hypoxia (13) Pneumonia due to COVID-19 virus (14) Hyperkalemia (15) DMII (diabetes mellitus, type 2) Ki Strong Jan 25, 2021 17:21
[2021-01-25] MEDS: Nystatin Susp 500,000 units/5ml ORAL SCH ×2 (17:31→21:00)
[2021-01-25] MEDS: Dyna-Hex 2% Top Sol 2oz TOPIC SCH (19:51)
[2021-01-26] VITALS (74 sets, daily range): BP systolic 54–138; BP diastolic 25–85
[2021-01-26] MEDS: Vancomycin 1.25gm Premix q24h IVPB SCH ×2 (02:00→15:33)
[2021-01-26] MEDS: Versed 100mg/NS 200ml 200 ML IV PRN ×3 (02:00→22:25)
[2021-01-26] MEDS: Piperacillin/Tazobactam 3.375 GM in NS 110 ML IVPB SCH ×3 (02:00→18:00)
[2021-01-26] MEDS: Acetaminophen 650mg/20.3ml NG PRN (02:05)
[2021-01-26] MEDS: fentaNYL 2500mcg/NS 250ml 250 ML IV SCH (03:00)
[2021-01-26 04:39] LABS: INR 3.2 (0.9-1.1)
[2021-01-26] MEDS: NovoLOG Insulin Flexpen SUBQ SCH ×4 (06:00→23:43)
[2021-01-26] MEDS: Midodrine 10mg tab ORAL SCH ×3 (06:06→21:10)
--- NOTE | 2021-01-26 06:11 | Pulmonology Progress Note ---
Subjective ROS Limited/Unobtainable: Yes Allergies: Coded Allergies: No Known Allergies (Unverified , 01/02/21) Objective Last 24 Hour Vital Signs Date Time Temp Pulse Resp B/P (MAP) Pulse Ox O2 Delivery O2 Flow Rate FiO2 01/26/21 05:15 100 22 55 01/26/21 05:00 99/65 01/26/21 05:00 22 99/65 Mechanical Ventilator 45 01/26/21 05:00 22 99/65 Mechanical Ventilator 45 01/26/21 05:00 84 22 99/65 (76) 90 01/26/21 04:00 90 22 93/58 (70) 91 01/26/21 04:00 93/58 01/26/21 04:00 22 93/58 Endotracheal Tube 45 01/26/21 04:00 22 93/58 Mechanical Ventilator 45 01/26/21 04:00 Mechanical Ventilator 01/26/21 04:00 90 01/26/21 04:00 45 01/26/21 03:07 95 22 55 01/26/21 03:00 96 22 95/59 (71) 90 01/26/21 03:00 95/59 01/26/21 03:00 22 95/59 Mechanical Ventilator 50 01/26/21 03:00 22 95/59 Mechanical Ventilator 50 01/26/21 02:35 102.8 01/26/21 02:00 102.8 96 22 93/53 (66) 91 01/26/21 02:00 93/53 01/26/21 02:00 22 93/53 Mechanical Ventilator 45 01/26/21 02:00 22 93/53 Mechanical Ventilator 50 01/26/21 02:00 22 93/53 Mechanical Ventilator 50 01/26/21 01:02 94 22 55 01/26/21 01:00 94 22 96/54 (68) 91 01/26/21 01:00 96/84 01/26/21 01:00 22 96/84 Mechanical Ventilator 45 01/26/21 00:00 94 22 97/55 (69) 91 01/26/21 00:00 97/55 01/26/21 00:00 22 97/55 Mechanical Ventilator 45 01/26/21 00:00 22 97/55 Mechanical Ventilator 45 01/26/21 00:00 Mechanical Ventilator 01/25/21 23:05 92 22 55 01/25/21 23:00 96/57 01/25/21 23:00 22 96/57 Mechanical Ventilator 45 01/25/21 23:00 22 96/57 Mechanical Ventilator 45 01/25/21 23:00 92 22 96/57 (70) 92 01/25/21 22:30 92 22 99/55 (70) 92 01/25/21 22:00 93 22 84/46 (59) 92 01/25/21 22:00 84/46 01/25/21 22:00 22 84/46 Mechanical Ventilator 45 01/25/21 22:00 22 96/37 Mechanical Ventilator 45 01/25/21 21:30 92 22 87/48 (61) 92 01/25/21 21:22 90 22 55 01/25/21 21:00 89/51 01/25/21 21:00 22 89/51 Mechanical Ventilator 45 01/25/21 21:00 22 89/51 Mechanical Ventilator 45 01/25/21 21:00 91 22 89/51 (64) 91 01/25/21 20:00 87 01/25/21 20:00 Mechanical Ventilator 01/25/21 20:00 45 01/25/21 20:00 103/59 01/25/21 20:00 22 103/59 Mechanical Ventilator 45 01/25/21 20:00 22 103/59 Mechanical Ventilator 45 01/25/21 20:00 101.1 87 22 103/59 (74) 93 01/25/21 19:27 85 22 55 01/25/21 19:00 88 22 107/59 (75) 94 01/25/21 18:45 87 22 104/59 (74) 94 01/25/21 18:30 101.7 89 22 98/56 (70) 93 01/25/21 18:15 96/58 (71) 91 01/25/21 18:00 90 11 85/69 (74) 94 01/25/21 17:45 85 22 112/69 (83) 95 01/25/21 17:35 85 22 50 01/25/21 17:30 87 22 109/65 (80) 95 01/25/21 17:15 85 22 110/65 (80) 96 01/25/21 17:00 84 22 115/67 (83) 96 01/25/21 16:45 84 22 115/69 (84) 96 01/25/21 16:30 84 22 110/70 (83) 96 01/25/21 16:15 87 22 98/59 (72) 95 01/25/21 16:00 101.6 85 21 96/73 (81) 97 01/25/21 16:00 Mechanical Ventilator 01/25/21 16:00 22 96/73 Mechanical Ventilator 45 01/25/21 16:00 22 96/73 Mechanical Ventilator 45 01/25/21 16:00 45 01/25/21 15:51 101.3 01/25/21 15:45 84 22 103/59 (74) 97 01/25/21 15:30 82 22 95/55 (68) 98 01/25/21 15:30 45 01/25/21 15:30 81 22 45 01/25/21 15:15 82 22 97/51 (66) 98 01/25/21 15:05 22 92/50 Mechanical Ventilator 55 01/25/21 15:00 22 92/50 Mechanical Ventilator 55 01/25/21 15:00 22 92/50 Mechanical Ventilator 55 01/25/21 15:00 83 22 92/50 (64) 98 01/25/21 14:45 83 22 96/52 (67) 98 01/25/21 14:30 79 22 100/58 (72) 99 01/25/21 14:29 79 22 55 01/25/21 14:15 82 22 95/48 (64) 98 01/25/21 14:00 22 103/56 Mechanical Ventilator 55 01/25/21 14:00 22 103/56 Mechanical Ventilator 55 01/25/21 14:00 101.3 79 22 103/56 (72) 98 01/25/21 13:45 82 22 96/50 (65) 98 01/25/21 13:30 83 22 93/46 (62) 98 01/25/21 13:15 83 22 94/50 (65) 97 01/25/21 13:00 82 22 92/45 (61) 97 01/25/21 13:00 22 92/45 Mechanical Ventilator 55 01/25/21 13:00 22 92/45 Mechanical Ventilator 55 01/25/21 12:45 78 22 101/59 (73) 97 01/25/21 12:30 78 22 107/58 (74) 97 01/25/21 12:15 82 22 88/44 (59) 96 01/25/21 12:11 79 22 55 01/25/21 12:11 55 01/25/21 12:00 96/50 01/25/21 12:00 22 96/50 Mechanical Ventilator 100 01/25/21 12:00 22 96/50 Mechanical Ventilator 100 01/25/21 12:00 102.2 82 22 96/50 (65) 95 01/25/21 12:00 Mechanical Ventilator 01/25/21 11:45 86 22 93/47 (62) 99 01/25/21 11:30 79 22 107/56 (73) 100 01/25/21 11:29 42/12 01/25/21 11:23 80 22 144/79 (100) 96 01/25/21 11:20 90 17 55/13 (27) 96 01/25/21 11:15 91 22 90 01/25/21 11:15 103.4 01/25/21 11:13 90 22 57/29 (38) 89 01/25/21 11:08 97 22 90/51 (64) 87 01/25/21 11:00 94 22 42/12 (22) 85 01/25/21 11:00 22 42/12 Mechanical Ventilator 100 01/25/21 11:00 22 42/12 Mechanical Ventilator 100 01/25/21 11:00 94 22 100 01/25/21 11:00 100 01/25/21 10:45 84 22 109/59 (76) 93 01/25/21 10:30 86 22 102/52 (69) 92 01/25/21 10:15 85 22 101/53 (69) 94 01/25/21 10:00 103.4 86 22 92/46 (61) 94 01/25/21 10:00 22 92/46 Mechanical Ventilator 55 01/25/21 10:00 22 92/46 Mechanical Ventilator 55 01/25/21 09:45 89 21 99/75 (83) 94 01/25/21 09:30 90 21 99/60 (73) 96 01/25/21 09:15 97 22 71/43 (52) 90 01/25/21 09:02 96 22 76/33 (47) 91 01/25/21 09:00 22 71/33 Mechanical Ventilator 55 01/25/21 09:00 22 71/33 Mechanical Ventilator 55 01/25/21 09:00 97 21 71/33 (46) 91 01/25/21 08:45 97 22 114/65 (81) 95 01/25/21 08:30 95 22 111/64 (80) 94 01/25/21 08:15 95 22 111/65 (80) 95 01/25/21 08:00 55 01/25/21 08:00 22 110/64 Mechanical Ventilator 55 01/25/21 08:00 22 110/64 Mechanical Ventilator 55 01/25/21 08:00 Mechanical Ventilator 01/25/21 08:00 105.2 96 22 110/64 (79) 94 01/25/21 07:30 102.8 22 113/66 (82) 96 01/25/21 07:26 102.8 01/25/21 07:25 55 01/25/21 07:25 95 21 55 01/25/21 07:00 101.1 96 22 107/64 (78) 96 01/25/21 07:00 107/64 01/25/21 07:00 22 107/64 Mechanical Ventilator 65 01/25/21 07:00 22 107/64 Mechanical Ventilator 65 Intake and Output 01/25/21 01/26/21 19:00 07:00 Intake Total 1700.650 ml 930.04 ml Output Total 1170 ml Balance 530.650 ml 930.04 ml Free Water 250 ml 40 ml IV Total 1120.650 ml 590.04 ml Tube Feeding 330 ml 300 ml Output Urine Total 1170 ml Microbiology Date/Time Source Procedure Growth Status 01/25/21 10:15 Indwelling Cath Urine Culture - Preliminary NO GROWTH Resulted Laboratory Tests 01/25/21 12:00: White Blood Count 8.0, Red Blood Count 4.55L, Hemoglobin 12.7L, Hematocrit 41.6L , Mean Corpuscular Volume 92, Mean Corpuscular Hemoglobin 27.8, Mean Corpuscular Hemoglobin Concent 30.4L, Red Cell Distribution Width 14.9H, Platelet Count 156, Mean Platelet Volume 8.3, Neutrophils (%) (Auto) 56.4, Lymphocytes (%) (Auto) 20.5, Monocytes (%) (Auto) 13.9H, Eosinophils (%) (Auto) 2.2, Basophils (%) (Auto) 7.0H, Sodium Level 139, Potassium Level 4.2, Chloride Level 104, Carbon Dioxide Level 27, Anion Gap 9, Blood Urea Nitrogen 7, Creatinine 1.1, Estimat Glomerular Filtration Rate > 60, Glucose Level 299#H, Calcium Level 8.2L, Phosphorus Level 2.7, Magnesium Level 1.8, Total Bilirubin 0.4, Aspartate Amino Transf (AST/SGOT) 29, Alanine Aminotransferase (ALT/SGPT) 28, Alkaline Phosphatase 54, Total Protein 6.5, Albumin 1.9L, Globulin 4.6, Albumin/Globulin Ratio 0.4L 01/26/21 03:15: Prothrombin Time 32.3H, Prothromb Time International Ratio 3.2H Current Medications Medications (Trade) Dose Ordered Sig/Johnny Route PRN Reason Start Time Stop Time Status Last Admin Dose Admin Acetaminophen (Tylenol) 650 mg Q6H PRN NG Temp >100.5 01/09/21 09:15 02/08/21 09:14 01/26/21 02:05 Acetaminophen (Tylenol) 650 mg Q6H PRN NG Mild Pain (Pain Scale 1-3) 01/09/21 09:15 02/08/21 09:14 Albuterol Sulfate (Proventil MDI) 2 puff Q6HRT INH 01/02/21 19:00 04/02/21 18:59 01/25/21 23:53 Benztropine Mesylate (Cogentin) 1 mg EVERY 12 HOURS NG 01/09/21 09:15 02/01/21 09:14 01/25/21 21:00 Chlorhexidine Gluconate (Myranda-Hex 2%) 1 applic DAILY@2000 TOPIC 01/12/21 20:00 04/12/21 19:59 01/25/21 19:51 Dextrose (Dextrose 50%) 25 ml Q30M PRN IV Hypoglycemia 01/06/21 23:45 04/06/21 23:44 Dextrose (Dextrose 50%) 50 ml Q30M PRN IV Hypoglycemia 01/06/21 23:45 04/06/21 23:44 Insulin Aspart (NovoLOG) EVERY 6 HOURS SUBQ 01/09/21 12:00 04/04/21 16:29 01/26/21 06:00 Ipratropium Taylor (Atrovent Inh) 1 puffs Q6HRT INH 01/02/21 19:00 02/01/21 18:59 01/25/21 23:53 Lansoprazole (Prevacid) 30 mg DAILY GT 01/24/21 09:00 02/15/21 08:59 01/25/21 08:20 Midazolam HCl 200 ml @ 0 mls/hr Q24H PRN IV Agitation 01/24/21 00:30 01/31/21 00:29 01/26/21 02:00 Midodrine (Pro-Amatine) 10 mg Q8HR ORAL 01/20/21 14:00 04/20/21 13:59 01/26/21 06:06 Norepinephrine Bitartrate 16 mg/ Sodium Chloride 516 ml @ 23.22 mls/ hr Q24H IV 01/25/21 06:45 01/28/21 06:44 01/25/21 11:29 Nystatin (Nystatin) 5 ml QID ORAL 01/25/21 18:00 02/01/21 17:59 01/25/21 21:00 Ondansetron HCl (Zofran) 4 mg Q4H PRN IVP Nausea & Vomiting 01/02/21 08:15 02/01/21 08:14 Phenylephrine HCl 50 mg/Dextrose 250 ml @ 0 mls/hr Q24H PRN IV hypotension 01/22/21 22:45 01/26/21 22:44 Piperacillin Sod/ Tazobactam Sod 3.375 gm/Sodium Chloride 110 ml @ 27.5 mls/hr Q8H IVPB 01/25/21 10:00 02/01/21 09:59 01/26/21 02:00 Potassium Chloride (K-Dur) 20 meq TWICE A DAY NG 01/20/21 13:00 04/20/21 12:59 01/25/21 17:32 Quetiapine Fumarate (SEROqueL) 100 mg Q12HR ORAL 01/20/21 15:00 03/06/21 14:59 01/25/21 21:00 Valproic Acid (Depakene) 500 mg Q12HR GT 01/22/21 21:00 02/21/21 20:59 01/25/21 21:00 Vancomycin HCl 250 ml @ 166.667 mls/hr Q12H IVPB 01/25/21 14:00 01/30/21 13:59 01/26/21 02:00 Vancomycin HCl (Vanco pharmacy to dose) 1 ea DAILY PRN MISC Per rx protocol 01/25/21 08:15 02/24/21 08:14 Warfarin Sodium (Coumadin per pharmacy) 1 ea DAILY PRN MISC Per rx protocol 01/02/21 08:30 02/01/21 08:29 Assessment/Plan Assessment/Plan Pulmonary CCM Progress Note Dateon vist: 01/25/2021 HPI Patient is a 60 man with prior h/o COPD, CPS/bipolar DO, 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 ID following and started on CTx/Azithro + REM + SM, CXR with bilateral infiltrates. 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, DM2, HTN and hydrocephalus Physical Exam Deferred Covid19 Vital Signs noted Laboratory Tests noted Imaging noted Height (Feet): 5 Height (Inches): 5.00 Weight (Pounds): 233 Medications Medications noted Assessment/Plan Problem List: (1) Pneumonia due to COVID-19 virus ICD Codes: U07.1 - COVID-19; J12.82 - Pneumonia due to coronavirus disease 2018 SNOMED: 623384362230516851 (2) Acute hypercapnic respiratory failure ICD Codes: J96.02 - Acute respiratory failure with hypercapnia SNOMED: 043463659 (3) Respiratory failure with hypoxia ICD Codes: J96.91 - Respiratory failure, unspecified with hypoxia SNOMED: 70543646032643719 Qualifiers: Qualified Codes: J96.01 - Acute respiratory failure with hypoxia (4) COPD (chronic obstructive pulmonary disease) ICD Codes: J44.9 - Chronic obstructive pulmonary disease, unspecified SNOMED: 50799800 (5) History of deep venous thrombosis or pulmonary embolus SNOMED: 705232615 (6) Obesity ICD Codes: E66.9 - Obesity, unspecified SNOMED: 905454068, 093125113 (7) Essential hypertension ICD Codes: I10 - Essential (primary) hypertension SNOMED: 20769120 (8) Diabetes mellitus type 2 in obese ICD Codes: E11.69 - Type 2 diabetes mellitus with other specified complication; E66.9 - Obesity, unspecified SNOMED: 40355538 (9) History of hydrocephalus ICD Codes: Z86.69 - Personal history of other diseases of the nervous system and sense organs SNOMED: 389467939 (10) Schizophrenia ICD Codes: F20.9 - Schizophrenia, unspecified SNOMED: 36149440 (11) Bipolar 1 disorder ICD Codes: F31.9 - Bipolar disorder, unspecified SNOMED: 514756752 (12) Anticoagulant long-term use ICD Codes: Z79.01 - detention (current) use of anticoagulants SNOMED: 107759407 Assessment/Plan: ACVC - adjust PRN Adjust FiO2 to keep SaO2 > 92% Reduce PEEP as tolerated Pressors PRN Sedation PRN HFA's F/U inflammatory markers and covid labs ID recs REM per ID Wean SM to off - 10QD previously Abx per ID F/U Cx's Monitor volumes and renal function,diuresis per Renal DVT Px: Coumadin TF when not proned FC Will need tracheostomy - did not tolerate weaning Date of visit 01/25/2021 Anuel Luis MD Jan 26, 2021 06:11
[2021-01-26] MEDS: Norepinephrine Bitartrate 16 MG in NS 500 ML IV SCH ×2 (07:00→22:27)
[2021-01-26] MEDS: Albuterol 90mcg Inhaler 8gm INH SCH ×3 (07:08→19:24)
[2021-01-26] MEDS: Ipratropium Bromide Inhaler INH SCH ×3 (07:08→19:24)
[2021-01-26] MEDS: Nystatin Susp 500,000 units/5ml ORAL SCH ×4 (08:13→21:10)
[2021-01-26] MEDS: Valproic Acid 250mg/5ml Liquid GT SCH ×2 (08:13→20:39)
[2021-01-26] MEDS: Benztropine 1mg tab NG SCH ×2 (08:14→20:39)
--- NOTE | 2021-01-26 09:18 | Surgery Progress Note ---
Surgery Progress Note Subjective Additional Comments weaning may be ready for trach soon no n/v labs noted Objective Last 24 Hour Vital Signs Date Time Temp Pulse Resp B/P (MAP) Pulse Ox O2 Delivery O2 Flow Rate FiO2 01/26/21 07:18 73 22 75 01/26/21 07:00 76 22 101/70 (80) 91 01/26/21 07:00 101/70 01/26/21 07:00 22 101/70 45 01/26/21 07:00 22 101/70 01/26/21 06:00 99/62 01/26/21 06:00 22 99/62 Mechanical Ventilator 45 01/26/21 06:00 22 99/62 Mechanical Ventilator 45 01/26/21 06:00 99.6 82 22 99/62 (74) 90 01/26/21 05:15 100 22 55 01/26/21 05:00 99/65 01/26/21 05:00 22 99/65 Mechanical Ventilator 45 01/26/21 05:00 22 99/65 Mechanical Ventilator 45 01/26/21 05:00 84 22 99/65 (76) 90 01/26/21 04:00 90 22 93/58 (70) 91 01/26/21 04:00 93/58 01/26/21 04:00 22 93/58 Endotracheal Tube 45 01/26/21 04:00 22 93/58 Mechanical Ventilator 45 01/26/21 04:00 Mechanical Ventilator 01/26/21 04:00 90 01/26/21 04:00 45 01/26/21 03:07 95 22 55 01/26/21 03:00 96 22 95/59 (71) 90 01/26/21 03:00 95/59 01/26/21 03:00 22 95/59 Mechanical Ventilator 50 01/26/21 03:00 22 95/59 Mechanical Ventilator 50 01/26/21 02:35 102.8 01/26/21 02:00 102.8 96 22 93/53 (66) 91 01/26/21 02:00 93/53 01/26/21 02:00 22 93/53 Mechanical Ventilator 45 01/26/21 02:00 22 93/53 Mechanical Ventilator 50 01/26/21 02:00 22 93/53 Mechanical Ventilator 50 01/26/21 01:02 94 22 55 01/26/21 01:00 94 22 96/54 (68) 91 01/26/21 01:00 96/84 01/26/21 01:00 22 96/84 Mechanical Ventilator 45 01/26/21 00:00 94 22 97/55 (69) 91 01/26/21 00:00 97/55 01/26/21 00:00 22 97/55 Mechanical Ventilator 45 01/26/21 00:00 22 97/55 Mechanical Ventilator 45 01/26/21 00:00 Mechanical Ventilator 01/25/21 23:05 92 22 55 01/25/21 23:00 96/57 01/25/21 23:00 22 96/57 Mechanical Ventilator 45 01/25/21 23:00 22 96/57 Mechanical Ventilator 45 01/25/21 23:00 92 22 96/57 (70) 92 01/25/21 22:30 92 22 99/55 (70) 92 01/25/21 22:00 93 22 84/46 (59) 92 01/25/21 22:00 84/46 01/25/21 22:00 22 84/46 Mechanical Ventilator 45 01/25/21 22:00 22 96/37 Mechanical Ventilator 45 01/25/21 21:30 92 22 87/48 (61) 92 01/25/21 21:22 90 22 55 01/25/21 21:00 89/51 01/25/21 21:00 22 89/51 Mechanical Ventilator 45 01/25/21 21:00 22 89/51 Mechanical Ventilator 45 01/25/21 21:00 91 22 89/51 (64) 91 01/25/21 20:00 87 01/25/21 20:00 Mechanical Ventilator 01/25/21 20:00 45 01/25/21 20:00 103/59 01/25/21 20:00 22 103/59 Mechanical Ventilator 45 01/25/21 20:00 22 103/59 Mechanical Ventilator 45 01/25/21 20:00 101.1 87 22 103/59 (74) 93 01/25/21 19:27 85 22 55 01/25/21 19:00 88 22 107/59 (75) 94 01/25/21 18:45 87 22 104/59 (74) 94 01/25/21 18:30 101.7 89 22 98/56 (70) 93 01/25/21 18:15 96/58 (71) 91 01/25/21 18:00 90 11 85/69 (74) 94 01/25/21 17:45 85 22 112/69 (83) 95 01/25/21 17:35 85 22 50 01/25/21 17:30 87 22 109/65 (80) 95 01/25/21 17:15 85 22 110/65 (80) 96 01/25/21 17:00 84 22 115/67 (83) 96 01/25/21 16:45 84 22 115/69 (84) 96 01/25/21 16:30 84 22 110/70 (83) 96 01/25/21 16:15 87 22 98/59 (72) 95 01/25/21 16:00 101.6 85 21 96/73 (81) 97 01/25/21 16:00 Mechanical Ventilator 01/25/21 16:00 22 96/73 Mechanical Ventilator 45 01/25/21 16:00 22 96/73 Mechanical Ventilator 45 01/25/21 16:00 45 01/25/21 15:51 101.3 01/25/21 15:45 84 22 103/59 (74) 97 01/25/21 15:30 82 22 95/55 (68) 98 01/25/21 15:30 45 01/25/21 15:30 81 22 45 01/25/21 15:15 82 22 97/51 (66) 98 01/25/21 15:05 22 92/50 Mechanical Ventilator 55 01/25/21 15:00 22 92/50 Mechanical Ventilator 55 01/25/21 15:00 22 92/50 Mechanical Ventilator 55 01/25/21 15:00 83 22 92/50 (64) 98 01/25/21 14:45 83 22 96/52 (67) 98 01/25/21 14:30 79 22 100/58 (72) 99 01/25/21 14:29 79 22 55 01/25/21 14:15 82 22 95/48 (64) 98 01/25/21 14:00 22 103/56 Mechanical Ventilator 55 01/25/21 14:00 22 103/56 Mechanical Ventilator 55 01/25/21 14:00 101.3 79 22 103/56 (72) 98 01/25/21 13:45 82 22 96/50 (65) 98 01/25/21 13:30 83 22 93/46 (62) 98 01/25/21 13:15 83 22 94/50 (65) 97 01/25/21 13:00 82 22 92/45 (61) 97 01/25/21 13:00 22 92/45 Mechanical Ventilator 55 01/25/21 13:00 22 92/45 Mechanical Ventilator 55 01/25/21 12:45 78 22 101/59 (73) 97 01/25/21 12:30 78 22 107/58 (74) 97 01/25/21 12:15 82 22 88/44 (59) 96 01/25/21 12:15 88/44 01/25/21 12:11 79 22 55 01/25/21 12:11 55 01/25/21 12:00 96/50 01/25/21 12:00 22 96/50 Mechanical Ventilator 100 01/25/21 12:00 22 96/50 Mechanical Ventilator 100 01/25/21 12:00 102.2 82 22 96/50 (65) 95 01/25/21 12:00 Mechanical Ventilator 01/25/21 11:45 86 22 93/47 (62) 99 01/25/21 11:30 79 22 107/56 (73) 100 01/25/21 11:29 42/12 01/25/21 11:23 80 22 144/79 (100) 96 01/25/21 11:20 90 17 55/13 (27) 96 01/25/21 11:15 91 22 90 01/25/21 11:15 103.4 01/25/21 11:13 90 22 57/29 (38) 89 01/25/21 11:08 97 22 90/51 (64) 87 01/25/21 11:00 94 22 42/12 (22) 85 01/25/21 11:00 22 42/12 Mechanical Ventilator 100 01/25/21 11:00 22 42/12 Mechanical Ventilator 100 01/25/21 11:00 94 22 100 01/25/21 11:00 100 01/25/21 10:45 84 22 109/59 (76) 93 01/25/21 10:30 86 22 102/52 (69) 92 01/25/21 10:15 85 22 101/53 (69) 94 01/25/21 10:00 103.4 86 22 92/46 (61) 94 01/25/21 10:00 22 92/46 Mechanical Ventilator 55 01/25/21 10:00 22 92/46 Mechanical Ventilator 55 01/25/21 09:45 89 21 99/75 (83) 94 01/25/21 09:30 90 21 99/60 (73) 96 I&O Intake and Output 01/25/21 01/26/21 19:00 07:00 Intake Total 1726.055 ml 1054.04 ml Output Total 1170 ml Balance 556.055 ml 1054.04 ml Free Water 250 ml 40 ml IV Total 1146.055 ml 654.04 ml Tube Feeding 330 ml 360 ml Output Urine Total 1170 ml Dressing: saturated Cardiovascular: RSR Respiratory: decreased breath sounds Abdomen: soft, non-tender, present bowel sounds Extremities: no tenderness, no cyanosis Laboratory Tests Test 01/25/21 12:00 01/26/21 03:15 White Blood Count 8.0 K/UL (4.8-10.8) Red Blood Count 4.55 M/UL (4.70-6.10) L Hemoglobin 12.7 G/DL (14.2-18.0) L Hematocrit 41.6 % (42.0-52.0) L Mean Corpuscular Volume 92 FL (80-99) Mean Corpuscular Hemoglobin 27.8 PG (27.0-31.0) Mean Corpuscular Hemoglobin Concent 30.4 G/DL (32.0-36.0) L Red Cell Distribution Width 14.9 % (11.6-14.8) H Platelet Count 156 K/UL (150-450) Mean Platelet Volume 8.3 FL (6.5-10.1) Neutrophils (%) (Auto) 56.4 % (45.0-75.0) Lymphocytes (%) (Auto) 20.5 % (20.0-45.0) Monocytes (%) (Auto) 13.9 % (1.0-10.0) H Eosinophils (%) (Auto) 2.2 % (0.0-3.0) Basophils (%) (Auto) 7.0 % (0.0-2.0) H Sodium Level 139 MMOL/L (136-145) Potassium Level 4.2 MMOL/L (3.5-5.1) Chloride Level 104 MMOL/L (98-107) Carbon Dioxide Level 27 MMOL/L (21-32) Anion Gap 9 mmol/L (5-15) Blood Urea Nitrogen 7 mg/dL (7-18) Creatinine 1.1 MG/DL (0.55-1.30) Estimat Glomerular Filtration Rate > 60 mL/min (>60) Glucose Level 299 MG/DL (74-106) #H Calcium Level 8.2 MG/DL (8.5-10.1) L Phosphorus Level 2.7 MG/DL (2.5-4.9) Magnesium Level 1.8 MG/DL (1.8-2.4) Total Bilirubin 0.4 MG/DL (0.2-1.0) Aspartate Amino Transf (AST/SGOT) 29 U/L (15-37) Alanine Aminotransferase (ALT/SGPT) 28 U/L (12-78) Alkaline Phosphatase 54 U/L (46-116) Total Protein 6.5 G/DL (6.4-8.2) Albumin 1.9 G/DL (3.4-5.0) L Globulin 4.6 g/dL Albumin/Globulin Ratio 0.4 (1.0-2.7) L Prothrombin Time 32.3 SEC (9.30-11.50) H Prothromb Time International Ratio 3.2 (0.9-1.1) H Plan Problems: (1) COPD (chronic obstructive pulmonary disease) (2) Essential hypertension (3) Schizophrenia (4) Obesity (5) Diabetes mellitus type 2 in obese (6) History of hydrocephalus (7) Anticoagulant long-term use (8) Bipolar 1 disorder (9) History of deep venous thrombosis or pulmonary embolus (10) Acute hypercapnic respiratory failure (11) Sepsis Assessment & Plan: 60-year-old male Covid positive respiratory insufficiency a nd severe decline being prone intubated on vent support labs noted septic ill- appearing has been developing wound around the face from ET tube.Receiv ed report from RT pt is being proned and was observed to have developed a blood blister under vent tape on L cheek and L earlobe. Skin assessed and pt was observed to have a blood blister that is 50% de-capped,50% intact. Intact Blood Blister noted to L earlobe. Skin Barrier applied to affected areas. Optifoam Thin foam placed between vent anchor and pt's skin. Optifoam thin placed to R cheek under Vent tape, on Bridge of nose and both earlobes. Given patient's critical status current care plan and findings nutritional optimization is strongly encouraged Covid nutrition plan initiated. All Covid precautions are being taken. Imaging reviewed. Will follow with care plan. Thank you [facility] participation care Tx.Plan: Maintain Optifoam Thin foam to R and L cheeks,Bridge of Nose and Both Ears . Change every 7 days and prn.( May request Optifoam Thin from RT dept). APM/PEPE Mattress overlay DAILY ESTIMATED NEEDS: Needs based on Critical care, pulmonary, obese 73.7kg abw 22-28 kcals/kg 7661-7345 total kcals 1.2-2 g protein/kg 88-147 g total protein 25-30 mL/kg 1056-2780 total fluid mLs NUTRITION DIAGNOSIS: Altered nutrition related lab values r/t steroidal meds, clinical status as evidenced by febrile on adm (102.5), elevated BG (270 287) on solumedrol, elevated lipid panel (Triglycerides 333, Chol 370, LDL 150). CURRENT TF:Vital @30ml/hr, now Nepro @30 ENTERAL NUTRITION RECOMMENDATIONS: NEPRO @30ml/hr while supine to provide x8 hrs feeds: 360ml, 648 kcal, 29g pro, 262ml free H2O - Feed at rate best tolerated, currently not meeting est needs d/t proning and aspiration risk w/ supine feeds limited to 8hrs/day. - W/ reduced aspiration risk rec feedings to total Volume of 900ml/day of Nepro as medically able. - Monitor tolerance, position/HOB >30 degrees, hemodynamic stability and ability to increase to meet est kcal and pro needs. - With increase pressor support, rec trophic feeds of 10ml/hr for gut integrity. - When tolerating TF at goal add Prosource BID to better meet est pro needs. ADDITIONAL RECOMMENDATIONS: 1) Now intubated, TF recs above when off proning (8hrs feeds) 2) Obtain calibrated bedscale wts 3) HgA1C/ elevated BG Need for niss while on D5 4) Lytes daily; replete as needed 5) Monitor triglycerides, TF tolerance, hemodynamic stability. (12) Respiratory failure with hypoxia (13) Pneumonia due to COVID-19 virus (14) Hyperkalemia (15) DMII (diabetes mellitus, type 2) Ki Strong Jan 26, 2021 09:18
--- NOTE | 2021-01-26 13:30 | Nephrology Progress Note ---
Assessment/Plan Problem List: (1) Hyperkalemia (2) Pneumonia due to COVID-19 virus (3) Respiratory failure with hypoxia (4) Obesity (5) Schizophrenia (6) DMII (diabetes mellitus, type 2) Assessment Hyperkalemia Stable renal parameters Hyperglycemia Covid pneumonia due to COVID-19 virus Acute respiratory failure with hypoxia requiring mechanical ventilation History of COPD History of DVT, pulmonary emboli Obese Hypertension History of diabetes Psych condition, schizophrenia, bipolar disease Plan January 26: Code. Intubated. On ventilator. FiO2 65%. No CHEM panel drawn today. Continue per consultants. January 25: Status unchanged. Blood pressure low. Remains full code on kailey tilator. Continue per consultants. Medication list reviewed. INR is 3.8 today. January 24: Status quo. Intubated on ventilator and full code. Labs reviewed. Medication list reviewed. Continue per consultants. January 23: Patient on prone position. IntubatedFiO2 65%. Renal parameters stable. Continue per consultants. Date hospitalization. Possible trach?. January 22: FiO2 50%. Prone position. Labs reviewed. Stable from renal standpoint of view. Continue per consultants. January 21: Full code. Intubated on ventilator. FiO2 40%. Labs reviewed. Renal parameters stable. Continue per consultants. January 20: Status unchanged. Full code. On ventilator. Chest x-ray reviewed. IV fluid discontinued. Potassium supplement given. 1 dose of Lasix given. Albumin bolus given. Midodrine started. Will monitor renal parameters and electrolytes. Discussed with JOHAN Mohamud. January 19: Labs reviewed. Renal parameters stable. Remains full code intubated on ventilator. FiO2 50%. Continue per consultants. January 18: Full code. Intubated. On ventilator. FiO2 down to 35%. No labs drawn today. Continue to monitor renal parameters and electrolytes. January 17: Full code. Intubated on ventilator. FiO2 remains at 60%. Labs reviewed. Renal parameters stable. January 16: Full code. Intubated. Labs reviewed. Renal parameters stable. FiO2 60%. Continue per consultants. January 15: Patient remains intubated and full code. Labs reviewed. Stable renal parameters. January 14: Patient full code. Intubated on ventilator. On prone position until 5 PM. Labs reviewed. Stable from renal standpoint of view. January 13: Labs reviewed. Renal parameters stable. Continue per consultants. Patient remain full code and intubated on ventilator. January 12: Labs reviewed. Renal parameters stable. Patient remains full code. Remains intubated on ventilator and on prone position. Continue per consultants. January 11: Labs reviewed. Renal parameters stable. Continue per consultants. January 10: Labs reviewed. Renal parameters stable. Continue per consultants. Change IV to half-normal saline Kayexalate via NG tube for high potassium Monitor electrolytes and renal parameters Per orders, per consultants Subjective ROS Limited/Unobtainable: Yes Objective Objective Last 24 Hour Vital Signs Date Time Temp Pulse Resp B/P (MAP) Pulse Ox O2 Delivery O2 Flow Rate FiO2 01/26/21 13:17 22 94/57 65 01/26/21 11:55 78 27 65 01/26/21 11:30 79 22 95/48 (64) 94 01/26/21 11:24 78 27 70 01/26/21 11:24 70 01/26/21 11:15 77 22 99/55 (70) 95 01/26/21 11:13 22 99/55 Mechanical Ventilator 75 01/26/21 11:00 22 99/55 Mechanical Ventilator 75 01/26/21 11:00 75 22 91/55 (67) 94 01/26/21 10:51 76 21 87/47 (60) 95 01/26/21 10:45 74 22 83/53 (63) 94 01/26/21 10:30 74 22 80/52 (61) 93 01/26/21 10:15 74 22 75/48 (57) 93 01/26/21 10:00 80 22 95/48 (64) 92 01/26/21 10:00 74 22 80/54 (63) 93 01/26/21 10:00 22 75/48 Mechanical Ventilator 75 01/26/21 10:00 22 75/48 Mechanical Ventilator 75 01/26/21 09:45 76 22 76/49 (58) 93 01/26/21 09:33 74 22 82/55 (64) 94 01/26/21 09:30 75 22 82/57 (65) 94 01/26/21 09:15 76 22 84/55 (65) 93 01/26/21 09:05 73 22 75 01/26/21 09:00 76 22 93/64 (74) 94 01/26/21 09:00 74 22 82/55 (64) 94 01/26/21 09:00 22 84/55 Mechanical Ventilator 75 01/26/21 09:00 22 84/55 Mechanical Ventilator 75 01/26/21 08:47 77 22 83/52 (62) 92 01/26/21 08:45 78 22 93 01/26/21 08:30 78 22 106/69 (81) 93 01/26/21 08:15 75 22 98/69 (79) 92 01/26/21 08:00 96.3 01/26/21 08:00 75 01/26/21 08:00 22 98/69 Mechanical Ventilator 75 01/26/21 08:00 22 98/69 Mechanical Ventilator 75 01/26/21 08:00 Mechanical Ventilator 01/26/21 08:00 77 22 94/65 (75) 94 01/26/21 08:00 74 22 82/57 (65) 94 01/26/21 08:00 45 01/26/21 08:00 74 01/26/21 07:45 77 14 89/62 (71) 93 01/26/21 07:30 76 22 100/68 (79) 90 01/26/21 07:18 75 01/26/21 07:18 73 22 75 01/26/21 07:15 75 22 105/70 (82) 91 01/26/21 07:00 76 22 101/70 (80) 91 01/26/21 07:00 101/70 01/26/21 07:00 22 101/70 45 01/26/21 07:00 22 101/70 01/26/21 06:00 99/62 01/26/21 06:00 22 99/62 Mechanical Ventilator 45 01/26/21 06:00 22 99/62 Mechanical Ventilator 45 01/26/21 06:00 99.6 82 22 99/62 (74) 90 01/26/21 05:15 100 22 55 01/26/21 05:00 99/65 01/26/21 05:00 22 99/65 Mechanical Ventilator 45 01/26/21 05:00 22 99/65 Mechanical Ventilator 45 01/26/21 05:00 84 22 99/65 (76) 90 01/26/21 04:00 90 22 93/58 (70) 91 01/26/21 04:00 93/58 01/26/21 04:00 22 93/58 Endotracheal Tube 45 01/26/21 04:00 22 93/58 Mechanical Ventilator 45 01/26/21 04:00 Mechanical Ventilator 01/26/21 04:00 90 01/26/21 04:00 45 01/26/21 03:07 95 22 55 01/26/21 03:00 96 22 95/59 (71) 90 01/26/21 03:00 95/59 01/26/21 03:00 22 95/59 Mechanical Ventilator 50 01/26/21 03:00 22 95/59 Mechanical Ventilator 50 01/26/21 02:35 102.8 01/26/21 02:00 102.8 96 22 93/53 (66) 91 01/26/21 02:00 93/53 01/26/21 02:00 22 93/53 Mechanical Ventilator 45 01/26/21 02:00 22 93/53 Mechanical Ventilator 50 01/26/21 02:00 22 93/53 Mechanical Ventilator 50 01/26/21 01:02 94 22 55 01/26/21 01:00 94 22 96/54 (68) 91 01/26/21 01:00 96/84 01/26/21 01:00 22 96/84 Mechanical Ventilator 45 01/26/21 00:00 94 22 97/55 (69) 91 01/26/21 00:00 97/55 01/26/21 00:00 22 97/55 Mechanical Ventilator 45 01/26/21 00:00 22 97/55 Mechanical Ventilator 45 01/26/21 00:00 Mechanical Ventilator 01/25/21 23:05 92 22 55 01/25/21 23:00 96/57 01/25/21 23:00 22 96/57 Mechanical Ventilator 45 01/25/21 23:00 22 96/57 Mechanical Ventilator 45 01/25/21 23:00 92 22 96/57 (70) 92 01/25/21 22:30 92 22 99/55 (70) 92 01/25/21 22:00 93 22 84/46 (59) 92 01/25/21 22:00 84/46 01/25/21 22:00 22 84/46 Mechanical Ventilator 45 01/25/21 22:00 22 96/37 Mechanical Ventilator 45 01/25/21 21:30 92 22 87/48 (61) 92 01/25/21 21:22 90 22 55 01/25/21 21:00 89/51 01/25/21 21:00 22 89/51 Mechanical Ventilator 45 01/25/21 21:00 22 89/51 Mechanical Ventilator 45 01/25/21 21:00 91 22 89/51 (64) 91 01/25/21 20:00 87 01/25/21 20:00 Mechanical Ventilator 01/25/21 20:00 45 01/25/21 20:00 103/59 01/25/21 20:00 22 103/59 Mechanical Ventilator 45 01/25/21 20:00 22 103/59 Mechanical Ventilator 45 01/25/21 20:00 101.1 87 22 103/59 (74) 93 01/25/21 19:27 85 22 55 01/25/21 19:00 88 22 107/59 (75) 94 01/25/21 18:45 87 22 104/59 (74) 94 01/25/21 18:30 101.7 89 22 98/56 (70) 93 01/25/21 18:15 96/58 (71) 91 01/25/21 18:00 90 11 85/69 (74) 94 01/25/21 17:45 85 22 112/69 (83) 95 01/25/21 17:35 85 22 50 01/25/21 17:30 87 22 109/65 (80) 95 01/25/21 17:30 50 01/25/21 17:15 85 22 110/65 (80) 96 01/25/21 17:00 84 22 115/67 (83) 96 01/25/21 16:45 84 22 115/69 (84) 96 01/25/21 16:30 84 22 110/70 (83) 96 01/25/21 16:15 87 22 98/59 (72) 95 01/25/21 16:00 101.6 85 21 96/73 (81) 97 01/25/21 16:00 Mechanical Ventilator 01/25/21 16:00 22 96/73 Mechanical Ventilator 45 01/25/21 16:00 22 96/73 Mechanical Ventilator 45 01/25/21 16:00 45 01/25/21 15:51 101.3 01/25/21 15:45 84 22 103/59 (74) 97 01/25/21 15:30 82 22 95/55 (68) 98 01/25/21 15:30 45 01/25/21 15:30 81 22 45 01/25/21 15:15 82 22 97/51 (66) 98 01/25/21 15:05 22 92/50 Mechanical Ventilator 55 01/25/21 15:00 22 92/50 Mechanical Ventilator 55 01/25/21 15:00 22 92/50 Mechanical Ventilator 55 01/25/21 15:00 83 22 92/50 (64) 98 01/25/21 14:45 83 22 96/52 (67) 98 01/25/21 14:30 79 22 100/58 (72) 99 01/25/21 14:29 79 22 55 01/25/21 14:15 82 22 95/48 (64) 98 01/25/21 14:00 22 103/56 Mechanical Ventilator 55 01/25/21 14:00 22 103/56 Mechanical Ventilator 55 01/25/21 14:00 101.3 79 22 103/56 (72) 98 01/25/21 13:45 82 22 96/50 (65) 98 01/25/21 13:30 83 22 93/46 (62) 98 Intake and Output 01/25/21 01/26/21 19:00 07:00 Intake Total 1726.055 ml 1054.04 ml Output Total 1170 ml Balance 556.055 ml 1054.04 ml Free Water 250 ml 40 ml IV Total 1146.055 ml 654.04 ml Tube Feeding 330 ml 360 ml Output Urine Total 1170 ml Current Medications Medications (Trade) Dose Ordered Sig/Johnny Route PRN Reason Start Time Stop Time Status Last Admin Dose Admin Acetaminophen (Tylenol) 650 mg Q6H PRN NG Temp >100.5 01/09/21 09:15 02/08/21 09:14 01/26/21 02:05 Acetaminophen (Tylenol) 650 mg Q6H PRN NG Mild Pain (Pain Scale 1-3) 01/09/21 09:15 02/08/21 09:14 Albuterol Sulfate (Proventil MDI) 2 puff Q6HRT INH 01/02/21 19:00 04/02/21 18:59 01/26/21 07:08 Benztropine Mesylate (Cogentin) 1 mg EVERY 12 HOURS NG 01/09/21 09:15 02/01/21 09:14 01/26/21 08:14 Chlorhexidine Gluconate (Myranda-Hex 2%) 1 applic DAILY@2000 TOPIC 01/12/21 20:00 04/12/21 19:59 01/25/21 19:51 Dextrose (Dextrose 50%) 25 ml Q30M PRN IV Hypoglycemia 01/06/21 23:45 04/06/21 23:44 Dextrose (Dextrose 50%) 50 ml Q30M PRN IV Hypoglycemia 01/06/21 23:45 04/06/21 23:44 Insulin Aspart (NovoLOG) EVERY 6 HOURS SUBQ 01/09/21 12:00 04/04/21 16:29 01/26/21 12:40 Ipratropium [place] (Atrovent Inh) 1 puffs Q6HRT INH 01/02/21 19:00 02/01/21 18:59 01/26/21 07:08 Lansoprazole (Prevacid) 30 mg DAILY GT 01/24/21 09:00 02/15/21 08:59 01/26/21 08:13 Midazolam HCl 200 ml @ 0 mls/hr Q24H PRN IV Agitation 01/24/21 00:30 01/31/21 00:29 01/26/21 13:17 Midodrine (Pro-Amatine) 10 mg Q8HR ORAL 01/20/21 14:00 04/20/21 13:59 01/26/21 06:06 Norepinephrine Bitartrate 16 mg/ Sodium Chloride 516 ml @ 23.22 mls/ hr Q24H IV 01/25/21 06:45 01/28/21 06:44 01/26/21 07:00 Nystatin (Nystatin) 5 ml QID ORAL 01/25/21 18:00 02/01/21 17:59 01/26/21 08:13 Ondansetron HCl (Zofran) 4 mg Q4H PRN IVP Nausea & Vomiting 01/02/21 08:15 02/01/21 08:14 Phenylephrine HCl 50 mg/Dextrose 250 ml @ 0 mls/hr Q24H PRN IV hypotension 01/22/21 22:45 01/26/21 22:44 Piperacillin Sod/ Tazobactam Sod 3.375 gm/Sodium Chloride 110 ml @ 27.5 mls/hr Q8H IVPB 01/25/21 10:00 02/01/21 09:59 01/26/21 09:50 Potassium Chloride (K-Dur) 20 meq TWICE A DAY NG 01/20/21 13:00 04/20/21 12:59 01/26/21 08:14 Quetiapine Fumarate (SEROqueL) 100 mg Q12HR ORAL 01/20/21 15:00 03/06/21 14:59 01/26/21 08:13 Valproic Acid (Depakene) 500 mg Q12HR GT 01/22/21 21:00 02/21/21 20:59 01/26/21 08:13 Vancomycin HCl 250 ml @ 166.667 mls/hr Q12H IVPB 01/25/21 14:00 01/30/21 13:59 01/26/21 02:00 Vancomycin HCl ([facility] pharmacy to dose) 1 ea DAILY PRN MISC Per rx protocol 01/25/21 08:15 02/24/21 08:14 Warfarin Sodium (Coumadin per pharmacy) 1 ea DAILY PRN MISC Per rx protocol 01/02/21 08:30 02/01/21 08:29 Laboratory Tests 01/26/21 03:15: Prothrombin Time 32.3H, Prothromb Time International Ratio 3.2H Height (Feet): 5 Height (Inches): 5.00 Weight (Pounds): 233 General Appearance: no apparent distress EENT: other - Intubated on ventilator Cardiovascular: normal rate Respiratory/Chest: decreased breath sounds Abdomen: distended Avi Frye MD Jan 26, 2021 13:30
--- NOTE | 2021-01-26 16:51 | Internal Med Progress Note ---
Subjective Date of Service: Jan 26, 2021 Physician Name Vickey Brown Attending Physician Geovanny Bradley MD Current Medications Medications (Trade) Dose Ordered Sig/Johnny Route PRN Reason Start Time Stop Time Status Last Admin Dose Admin Acetaminophen (Tylenol) 650 mg Q6H PRN NG Temp >100.5 01/09/21 09:15 02/08/21 09:14 01/26/21 02:05 Acetaminophen (Tylenol) 650 mg Q6H PRN NG Mild Pain (Pain Scale 1-3) 01/09/21 09:15 02/08/21 09:14 Albuterol Sulfate (Proventil MDI) 2 puff Q6HRT INH 01/02/21 19:00 04/02/21 18:59 01/26/21 13:05 Benztropine Mesylate (Cogentin) 1 mg EVERY 12 HOURS NG 01/09/21 09:15 02/01/21 09:14 01/26/21 08:14 Chlorhexidine Gluconate (Myranda-Hex 2%) 1 applic DAILY@2000 TOPIC 01/12/21 20:00 04/12/21 19:59 01/25/21 19:51 Dextrose (Dextrose 50%) 25 ml Q30M PRN IV Hypoglycemia 01/06/21 23:45 04/06/21 23:44 Dextrose (Dextrose 50%) 50 ml Q30M PRN IV Hypoglycemia 01/06/21 23:45 04/06/21 23:44 Insulin Aspart (NovoLOG) EVERY 6 HOURS SUBQ 01/09/21 12:00 04/04/21 16:29 01/26/21 12:40 Ipratropium [place] (Atrovent Inh) 1 puffs Q6HRT INH 01/02/21 19:00 02/01/21 18:59 01/26/21 13:05 Lansoprazole (Prevacid) 30 mg DAILY GT 01/24/21 09:00 02/15/21 08:59 01/26/21 08:13 Midazolam HCl 200 ml @ 0 mls/hr Q24H PRN IV Agitation 01/24/21 00:30 01/31/21 00:29 01/26/21 13:17 Midodrine (Pro-Amatine) 10 mg Q8HR ORAL 01/20/21 14:00 04/20/21 13:59 01/26/21 15:32 Norepinephrine Bitartrate 16 mg/ Sodium Chloride 516 ml @ 23.22 mls/ hr Q24H IV 01/25/21 06:45 01/28/21 06:44 01/26/21 07:00 Nystatin (Nystatin) 5 ml QID ORAL 01/25/21 18:00 02/01/21 17:59 01/26/21 15:32 Ondansetron HCl (Zofran) 4 mg Q4H PRN IVP Nausea & Vomiting 01/02/21 08:15 02/01/21 08:14 Phenylephrine HCl 50 mg/Dextrose 250 ml @ 0 mls/hr Q24H PRN IV hypotension 01/22/21 22:45 01/26/21 22:44 Piperacillin Sod/ Tazobactam Sod 3.375 gm/Sodium Chloride 110 ml @ 27.5 mls/hr Q8H IVPB 01/25/21 10:00 02/01/21 09:59 01/26/21 09:50 Potassium Chloride (K-Dur) 20 meq TWICE A DAY NG 01/20/21 13:00 04/20/21 12:59 01/26/21 08:14 Quetiapine Fumarate (SEROqueL) 100 mg Q12HR ORAL 01/20/21 15:00 03/06/21 14:59 01/26/21 08:13 Valproic Acid (Depakene) 500 mg Q12HR GT 01/22/21 21:00 02/21/21 20:59 01/26/21 08:13 Vancomycin HCl 250 ml @ 166.667 mls/hr Q12H IVPB 01/25/21 14:00 01/30/21 13:59 01/26/21 15:33 Vancomycin HCl ([facility] pharmacy to dose) 1 ea DAILY PRN MISC Per rx protocol 01/25/21 08:15 02/24/21 08:14 Warfarin Sodium (Coumadin per pharmacy) 1 ea DAILY PRN MISC Per rx protocol 01/02/21 08:30 02/01/21 08:29 Allergies: Coded Allergies: No Known Allergies (Unverified , 01/02/21) ROS Limited/Unobtainable: Yes Subjective 60 YO M admitted with shortness of breath. Now respiratory failure. Cover for Int Med-DR Kirk. ICU. Intubated and sedated Objective Last Vital Signs Date Time Temp Pulse Resp B/P (MAP) Pulse Ox O2 Delivery O2 Flow Rate FiO2 01/26/21 16:00 100 01/26/21 16:00 99.1 22 106/60 (75) 96 01/26/21 15:00 Mechanical Ventilator 55 01/24/21 21:00 65.0 Laboratory Tests Test 01/26/21 03:15 Prothrombin Time 32.3 SEC (9.30-11.50) H Prothromb Time International Ratio 3.2 (0.9-1.1) H Microbiology Date/Time Source Procedure Growth Status 01/25/21 10:15 Indwelling Cath Urine Culture - Preliminary NO GROWTH Resulted 01/25/21 10:15 Nasopharynx Coronavirus COVID-19 PCR ([facility]) - Final Complete 01/25/21 10:15 Sputum Gram Stain - Final Resulted 01/25/21 10:15 Sputum Sputum Culture Pending Resulted Intake and Output 01/25/21 01/26/21 19:00 07:00 Intake Total 1726.055 ml 1054.04 ml Output Total 1170 ml Balance 556.055 ml 1054.04 ml Free Water 250 ml 40 ml IV Total 1146.055 ml 654.04 ml Tube Feeding 330 ml 360 ml Output Urine Total 1170 ml Objective Objective General: awake, responsive , confused. HEENT: NCAT, sclera anicteric, PERRL, EOMI. Neck: Supple, no significant jugular venous distention, Lungs: mech vent; decreased air at the bases, occasional crackles, no Wheeze. Heart: Regular rate and rhythm, normal S1/S2, no murmurs Abdomen: soft, nontender, nondistended. Normoactive bowel sound, obesity. / Rectal: Refused and deferred. Extremities: Left LE: No Cyanosis , clubbing or edema. Right LE AKA. Neuro: A&O x 2, Able to move all extremities Skin: warm, no rashes or lesions. Assessment/Plan Assessment/Plan Assessment/Plan Assessment/Plan (1) Pneumonia due to COVID-19 virus ICD Codes: U07.1 - COVID-19; J12.82 - Pneumonia due to coronavirus disease 2019 SNOMED: 607252787038121161 (2) Acute hypercapnic respiratory failure ICD Codes: J96.02 - Acute respiratory failure with hypercapnia SNOMED: 257361277 (3) Respiratory failure with hypoxia ICD Codes: J96.91 - Respiratory failure, unspecified with hypoxia SNOMED: 55066161082879215 Qualifiers: Qualified Codes: J96.01 - Acute respiratory failure with hypoxia (4) COPD (chronic obstructive pulmonary disease) ICD Codes: J44.9 - Chronic obstructive pulmonary disease, unspecified SNOMED: 14107961 (5) History of deep venous thrombosis or pulmonary embolus SNOMED: 462383459 (6) Obesity ICD Codes: E66.9 - Obesity, unspecified SNOMED: 755895336, 075809164 (7) Essential hypertension ICD Codes: I10 - Essential (primary) hypertension SNOMED: 33575578 (8) Diabetes mellitus type 2 in obese ICD Codes: E11.69 - Type 2 diabetes mellitus with other specified complication; E66.9 - Obesity, unspecified SNOMED: 14664789 (9) History of hydrocephalus ICD Codes: Z86.69 - Personal history of other diseases of the nervous system and sense organs SNOMED: 985492938 (10) Schizophrenia ICD Codes: F20.9 - Schizophrenia, unspecified SNOMED: 77537377 (11) Bipolar 1 disorder ICD Codes: F31.9 - Bipolar disorder, unspecified SNOMED: 337628718 (12) Anticoagulant long-term use ICD Codes: Z79.01 - skilled nursing (current) use of anticoagulants SNOMED: 479422647 13. Sepsis=gram pos cocci 14. thrush Assessment/Plan: Optimize pulmonary hygiene/mobilize as tolerated Non Rebreather mask>BIPAP>intubated S/P Remdesivir IV S/P Solu-Medrol 40 mg IV twice a day. Abx = zosyn and vanco F/U Cx's Monitor volumes and renal function DVT Px: Coumadin DC IV fluid Start diet Monitor blood glucose level closely. On levophed, fentanyl and propofol drips Pulmonary=Dr Luis ID=Dr Gomez Psych consult=Dr Gallegos Start seroquel at 1/2 previous dose continue nystatin await tracheostomy Vickey Brown MD Jan 26, 2021 16:51
[2021-01-26] MEDS: Dyna-Hex 2% Top Sol 2oz TOPIC SCH (19:42)
[2021-01-26] MEDS: fentaNYL 2500mcg/NS 250ml 250 ML IV PRN (23:06)
[2021-01-27] VITALS (54 sets, daily range): BP systolic 82–185; BP diastolic 45–158
[2021-01-27] MEDS: Albuterol 90mcg Inhaler 8gm INH SCH ×4 (01:08→19:29)
[2021-01-27] MEDS: Ipratropium Bromide Inhaler INH SCH ×4 (01:08→19:28)
[2021-01-27] MEDS: Piperacillin/Tazobactam 3.375 GM in NS 110 ML IVPB SCH ×3 (01:32→17:15)
[2021-01-27] MEDS: Acetaminophen 650mg/20.3ml NG PRN (05:10)
[2021-01-27] MEDS: Midodrine 10mg tab ORAL SCH ×3 (05:10→22:43)
[2021-01-27] MEDS: NovoLOG Insulin Flexpen SUBQ SCH ×4 (05:47→23:16)
[2021-01-27 05:52] LABS: BASOPHILS % (AUTO) 2.2 % (0.0-2.0); EOSINOPHILS % (AUTO) 5.3 % (0.0-3.0); HEMATOCRIT 43.4 % (42.0-52.0); HEMOGLOBIN 13.1 G/DL (14.2-18.0); LYMPHOCYTES % (AUTO) 12.1 % (20.0-45.0); MEAN CORPUSCULAR VOLUME 94 FL (80-99); MONOCYTES % (AUTO) 6.6 % (1.0-10.0); NEUTROPHILS % (AUTO) 73.8 % (45.0-75.0); PLATELET COUNT 139 K/UL (150-450); RED BLOOD COUNT 4.63 M/UL (4.70-6.10); RED CELL DISTRIBUTION WIDTH 15.3 % (11.6-14.8); WHITE BLOOD COUNT 6.5 K/UL (4.8-10.8)
[2021-01-27 06:13] LABS: INR 2.3 (0.9-1.1)
[2021-01-27] MEDS: Norepinephrine Bitartrate 16 MG in NS 500 ML IV SCH (06:45)
[2021-01-27 06:47] LABS: PHOSPHORUS 2.7 MG/DL (2.5-4.9)
[2021-01-27 06:52] LABS: ALANINE AMINOTRANSFERASE 50 U/L (12-78); ALBUMIN/GLOBULIN RATIO 0.4 (1.0-2.7); ALKALINE PHOSPHATASE 71 U/L (46-116); ANION GAP 11 mmol/L (5-15); ASPARTATE AMINO TRANSFERASE 39 U/L (15-37); BILIRUBIN,TOTAL 0.2 MG/DL (0.2-1.0); BLOOD UREA NITROGEN 9 mg/dL (7-18); CALCIUM 8.7 MG/DL (8.5-10.1); CARBON DIOXIDE 25 MMOL/L (21-32); CHLORIDE 104 MMOL/L (98-107); CREATININE 0.8 MG/DL (0.55-1.30); POTASSIUM 4.9 MMOL/L (3.5-5.1); SODIUM 140 MMOL/L (136-145)
--- NOTE | 2021-01-27 07:20 | Pulmonology Progress Note ---
Subjective ROS Limited/Unobtainable: Yes Allergies: Coded Allergies: No Known Allergies (Unverified , 01/02/21) Objective Last 24 Hour Vital Signs Date Time Temp Pulse Resp B/P (MAP) Pulse Ox O2 Delivery O2 Flow Rate FiO2 01/27/21 06:15 81 22 82/51 (61) 98 01/27/21 06:00 26 114/55 Mechanical Ventilator 50 01/27/21 06:00 96/64 01/27/21 06:00 22 96/64 Mechanical Ventilator 50 01/27/21 06:00 81 22 96/64 (75) 97 01/27/21 05:45 81 22 90/59 (69) 96 01/27/21 05:30 85 22 93/55 (68) 94 01/27/21 05:30 22 96/53 Mechanical Ventilator 50 01/27/21 05:30 22 96/53 Mechanical Ventilator 50 01/27/21 05:21 86 22 96/53 (67) 94 01/27/21 05:15 91 21 89/58 (68) 94 01/27/21 05:15 21 89/58 Mechanical Ventilator 50 01/27/21 05:15 89/58 01/27/21 05:15 21 89/58 Mechanical Ventilator 50 01/27/21 05:00 96 20 90/59 (69) 94 01/27/21 05:00 20 90/59 Mechanical Ventilator 50 01/27/21 05:00 90/59 01/27/21 05:00 20 90/59 Mechanical Ventilator 50 01/27/21 04:45 98 27 107/59 (75) 95 01/27/21 04:30 113 25 147/113 (124) 98 01/27/21 04:30 20 147/113 Mechanical Ventilator 50 01/27/21 04:30 20 147/113 Mechanical Ventilator 50 01/27/21 04:15 27 185/158 Mechanical Ventilator 50 01/27/21 04:15 27 185/158 Mechanical Ventilator 50 01/27/21 04:15 98 27 182/82 (115) 96 01/27/21 04:00 Mechanical Ventilator 01/27/21 04:00 50 01/27/21 04:00 34 169/134 Mechanical Ventilator 50 01/27/21 04:00 169/134 01/27/21 04:00 34 169/134 Mechanical Ventilator 34 01/27/21 04:00 101 01/27/21 04:00 98.3 101 34 169/134 (146) 96 01/27/21 03:45 39 122/83 Mechanical Ventilator 50 01/27/21 03:45 122/83 01/27/21 03:45 39 122/83 Mechanical Ventilator 50 01/27/21 03:45 110 39 122/83 (96) 100 01/27/21 03:30 101 30 138/88 (105) 96 01/27/21 03:30 30 138/88 Mechanical Ventilator 50 01/27/21 03:30 138/88 01/27/21 03:30 30 138/88 Mechanical Ventilator 50 01/27/21 03:15 99 25 155/84 (107) 95 01/27/21 03:15 25 155/84 Mechanical Ventilator 50 01/27/21 03:15 155/84 01/27/21 03:15 25 155/84 Mechanical Ventilator 50 01/27/21 03:00 35 116/99 Mechanical Ventilator 50 01/27/21 03:00 116/99 01/27/21 03:00 35 116/99 Mechanical Ventilator 50 01/27/21 03:00 95 35 116/99 (105) 95 01/27/21 02:45 100 42 115/68 (84) 97 01/27/21 02:38 95 24 50 01/27/21 02:30 112 44 128/80 (96) 96 01/27/21 02:15 110 26 120/95 (103) 94 01/27/21 02:00 26 114/54 Mechanical Ventilator 50 01/27/21 02:00 114/54 01/27/21 02:00 26 114/54 Mechanical Ventilator 50 01/27/21 02:00 127 26 114/54 (74) 96 01/27/21 01:45 40 123/64 Mechanical Ventilator 50 01/27/21 01:45 127 40 123/64 (83) 96 01/27/21 01:30 36 149/81 Mechanical Ventilator 50 01/27/21 01:30 36 149/81 Mechanical Ventilator 50 01/27/21 01:30 94 36 149/81 (103) 97 01/27/21 01:15 37 140/80 Mechanical Ventilator 50 01/27/21 01:15 100 37 140/80 (100) 99 01/27/21 01:00 85 44 138/70 (92) 95 01/27/21 01:00 44 138/70 Mechanical Ventilator 50 01/27/21 01:00 138/70 01/27/21 01:00 44 138/70 Mechanical Ventilator 50 01/27/21 00:30 95 22 92/53 (66) 94 01/27/21 00:00 84 01/27/21 00:00 50 01/27/21 00:00 22 135/79 Mechanical Ventilator 50 01/27/21 00:00 135/79 01/27/21 00:00 22 135/79 Mechanical Ventilator 50 01/27/21 00:00 Mechanical Ventilator 01/27/21 00:00 96.8 84 22 135/79 (97) 93 01/26/21 23:30 74 22 138/77 (97) 95 01/26/21 23:15 70 23 136/84 (101) 93 01/26/21 23:06 22 130/81 Mechanical Ventilator 50 01/26/21 23:00 130/81 01/26/21 23:00 22 130/81 Mechanical Ventilator 50 01/26/21 23:00 22 130/81 Mechanical Ventilator 50 01/26/21 23:00 70 22 130/81 (97) 95 01/26/21 22:55 66 22 50 01/26/21 22:45 58 21 128/85 (99) 94 01/26/21 22:45 21 128/85 Mechanical Ventilator 50 01/26/21 22:45 21 128/85 Mechanical Ventilator 50 01/26/21 22:39 56 22 126/78 (94) 93 01/26/21 22:30 84 22 92/62 (72) 95 01/26/21 22:27 84/52 01/26/21 22:25 22 86/45 Mechanical Ventilator 50 01/26/21 22:15 86/45 01/26/21 22:15 86 22 86/45 (59) 95 01/26/21 22:00 76 22 122/74 (90) 95 01/26/21 22:00 122/74 01/26/21 22:00 22 122/74 Mechanical Ventilator 50 01/26/21 22:00 22 122/74 Mechanical Ventilator 50 01/26/21 21:30 78 22 117/68 (84) 96 01/26/21 21:00 72 21 133/82 (99) 98 01/26/21 21:00 133/82 01/26/21 21:00 21 133/82 Mechanical Ventilator 50 01/26/21 21:00 21 133/82 Mechanical Ventilator 50 01/26/21 20:15 76 22 125/73 (90) 97 01/26/21 20:00 50 01/26/21 20:00 Mechanical Ventilator 01/26/21 20:00 76 01/26/21 20:00 128/83 01/26/21 20:00 22 128/83 Mechanical Ventilator 50 01/26/21 20:00 22 128/83 Mechanical Ventilator 50 01/26/21 20:00 96.5 76 22 128/83 (98) 97 01/26/21 19:45 76 22 121/70 (87) 96 01/26/21 19:30 76 22 118/73 (88) 97 01/26/21 19:24 75 22 50 01/26/21 19:15 76 22 124/74 (91) 96 01/26/21 19:00 78 22 121/73 (89) 96 01/26/21 18:45 80 22 118/76 (90) 96 01/26/21 18:39 83 21 112/69 (83) 98 01/26/21 18:37 83 22 82/45 (57) 96 01/26/21 18:30 84 22 54/25 (35) 95 01/26/21 18:15 81 21 96 01/26/21 18:00 84 22 115/73 (87) 95 01/26/21 18:00 81 22 114/68 (83) 96 01/26/21 17:45 97.9 81 22 113/69 (84) 96 01/26/21 17:30 81 22 119/74 (89) 96 01/26/21 17:17 87 22 55 01/26/21 17:15 82 22 115/73 (87) 97 01/26/21 17:00 103 27 102/65 (77) 97 01/26/21 17:00 80 22 113/68 (83) 97 01/26/21 16:45 84 22 99/60 (73) 96 01/26/21 16:30 84 22 104/59 (74) 96 01/26/21 16:15 85 22 101/60 (74) 96 01/26/21 16:00 Mechanical Ventilator 01/26/21 16:00 100 01/26/21 16:00 99.1 85 22 106/60 (75) 96 01/26/21 16:00 85 22 106/60 (75) 96 01/26/21 15:45 84 22 110/66 (81) 96 01/26/21 15:30 87 22 110/70 (83) 95 01/26/21 15:15 90 22 97/57 (70) 95 01/26/21 15:00 22 97/57 Mechanical Ventilator 55 01/26/21 15:00 22 97/57 Mechanical Ventilator 55 01/26/21 15:00 91 20 92/53 (66) 94 01/26/21 15:00 89 0 92/53 (66) 94 01/26/21 14:45 89 15 88/52 (64) 94 01/26/21 14:30 85 0 99/62 (74) 96 01/26/21 14:30 55 01/26/21 14:24 85 22 55 01/26/21 14:15 85 18 90/53 (65) 97 01/26/21 14:00 84 22 90/53 (65) 98 01/26/21 14:00 84 0 93/55 (68) 97 01/26/21 14:00 22 90/53 Mechanical Ventilator 22 01/26/21 14:00 22 90/53 Mechanical Ventilator 65 01/26/21 13:45 82 0 90/54 (66) 96 01/26/21 13:30 81 0 100/60 (73) 97 01/26/21 13:17 22 94/57 65 01/26/21 13:15 84 22 94/57 (69) 96 01/26/21 13:05 85 22 65 01/26/21 13:00 83 22 88/42 (57) 96 01/26/21 13:00 84 22 85/49 (61) 94 01/26/21 13:00 22 94/57 Mechanical Ventilator 65 01/26/21 13:00 22 94/57 Mechanical Ventilator 65 01/26/21 12:45 84 22 92/53 (66) 94 01/26/21 12:38 65 01/26/21 12:30 83 22 95/51 (66) 94 01/26/21 12:15 81 22 97/51 (66) 95 01/26/21 12:00 81 22 95/52 (66) 94 01/26/21 12:00 83 01/26/21 12:00 22 97/51 Mechanical Ventilator 65 01/26/21 12:00 22 97/51 Mechanical Ventilator 65 01/26/21 12:00 Mechanical Ventilator 01/26/21 12:00 97.4 81 22 90/54 (66) 96 01/26/21 11:55 78 27 65 01/26/21 11:55 70 01/26/21 11:45 79 22 97/57 (70) 95 01/26/21 11:30 79 22 95/48 (64) 94 01/26/21 11:24 78 27 70 01/26/21 11:24 70 01/26/21 11:15 77 22 99/55 (70) 95 01/26/21 11:13 22 99/55 Mechanical Ventilator 75 01/26/21 11:00 22 99/55 Mechanical Ventilator 75 01/26/21 11:00 75 22 91/55 (67) 94 01/26/21 10:51 76 21 87/47 (60) 95 01/26/21 10:45 74 22 83/53 (63) 94 01/26/21 10:30 74 22 80/52 (61) 93 01/26/21 10:15 74 22 75/48 (57) 93 01/26/21 10:00 80 22 95/48 (64) 92 01/26/21 10:00 74 22 80/54 (63) 93 01/26/21 10:00 22 75/48 Mechanical Ventilator 75 01/26/21 10:00 22 75/48 Mechanical Ventilator 75 01/26/21 09:45 76 22 76/49 (58) 93 01/26/21 09:33 74 22 82/55 (64) 94 01/26/21 09:30 75 22 82/57 (65) 94 01/26/21 09:15 76 22 84/55 (65) 93 01/26/21 09:05 73 22 75 01/26/21 09:00 76 22 93/64 (74) 94 01/26/21 09:00 74 22 82/55 (64) 94 01/26/21 09:00 22 84/55 Mechanical Ventilator 75 01/26/21 09:00 22 84/55 Mechanical Ventilator 75 01/26/21 08:47 77 22 83/52 (62) 92 01/26/21 08:45 78 22 93 01/26/21 08:30 78 22 106/69 (81) 93 01/26/21 08:15 75 22 98/69 (79) 92 01/26/21 08:00 96.3 01/26/21 08:00 75 01/26/21 08:00 22 98/69 Mechanical Ventilator 75 01/26/21 08:00 22 98/69 Mechanical Ventilator 75 01/26/21 08:00 Mechanical Ventilator 01/26/21 08:00 77 22 94/65 (75) 94 01/26/21 08:00 74 22 82/57 (65) 94 01/26/21 08:00 45 01/26/21 08:00 74 01/26/21 07:45 77 14 89/62 (71) 93 01/26/21 07:30 76 22 100/68 (79) 90 Intake and Output 01/26/21 01/27/21 19:00 07:00 Intake Total 2034.188 ml 1852.87 ml Output Total 1115 ml 860 ml Balance 919.188 ml 992.87 ml Free Water 200 ml IV Total 1144.188 ml 1142.87 ml Tube Feeding 690 ml 480 ml Other 230 ml Output Urine Total 1115 ml 860 ml # Bowel Movements 2 Microbiology Date/Time Source Procedure Growth Status 01/25/21 12:00 Blood Blood Culture - Preliminary Resulted 01/25/21 11:50 Blood Blood Culture - Preliminary Resulted 01/25/21 10:15 Indwelling Cath Urine Culture - Preliminary Gram Positive Cocci Resulted 01/25/21 10:15 Nasopharynx Coronavirus COVID-19 PCR ([facility]) - Final Complete 01/25/21 10:15 Sputum Gram Stain - Final Resulted 01/25/21 10:15 Sputum Sputum Culture Pending Resulted Laboratory Tests 01/27/21 00:56: Vancomycin Level Trough 9.2 01/27/21 04:00: White Blood Count 6.5, Red Blood Count 4.63L, Hemoglobin 13.1L, Hematocrit 43.4, Mean Corpuscular Volume 94, Mean Corpuscular Hemoglobin 28.2, Mean Corpuscular Hemoglobin Concent 30.1L, Red Cell Distribution Width 15.3H, Platelet Count 139L , Mean Platelet Volume 8.6, Neutrophils (%) (Auto) 73.8, Lymphocytes (%) (Auto) 12.1L, Monocytes (%) (Auto) 6.6, Eosinophils (%) (Auto) 5.3H, Basophils (%) (Auto) 2.2H, Prothrombin Time 24.1H, Prothromb Time International Ratio 2.3H, Sodium Level 140, Potassium Level 4.9, Chloride Level 104, Carbon Dioxide Level 25, Anion Gap 11, Blood Urea Nitrogen 9, Creatinine 0.8, Estimat Glomerular Filtration Rate > 60, Glucose Level 295H, Calcium Level 8.7, Phosphorus Level 2.7, Magnesium Level 1.9, Total Bilirubin 0.2, Aspartate Amino Transf (AST/SGOT) 39H, Alanine Aminotransferase (ALT/SGPT) 50, Alkaline Phosphatase 71, C-Reactive Protein, Quantitative 24.1H, Pro-B-Type Natriuretic Peptide 70, Total Protein 6.6, Albumin 2.0L, Globulin 4.6, Albumin/Globulin Ratio 0.4L Current Medications Medications (Trade) Dose Ordered Sig/Johnny Route PRN Reason Start Time Stop Time Status Last Admin Dose Admin Acetaminophen (Tylenol) 650 mg Q6H PRN NG Temp >100.5 01/09/21 09:15 02/08/21 09:14 01/26/21 02:05 Acetaminophen (Tylenol) 650 mg Q6H PRN NG Mild Pain (Pain Scale 1-3) 01/09/21 09:15 02/08/21 09:14 01/27/21 05:10 Albuterol Sulfate (Proventil MDI) 2 puff Q6HRT INH 01/02/21 19:00 04/02/21 18:59 01/27/21 01:08 Benztropine Mesylate (Cogentin) 1 mg EVERY 12 HOURS NG 01/09/21 09:15 02/01/21 09:14 01/26/21 20:39 Chlorhexidine Gluconate (Myranda-Hex 2%) 1 applic DAILY@2000 TOPIC 01/12/21 20:00 04/12/21 19:59 01/26/21 19:42 Dextrose (Dextrose 50%) 25 ml Q30M PRN IV Hypoglycemia 01/06/21 23:45 04/06/21 23:44 Dextrose (Dextrose 50%) 50 ml Q30M PRN IV Hypoglycemia 01/06/21 23:45 04/06/21 23:44 Fentanyl Citrate 250 ml @ 1 mls/hr Q24H PRN IV Agitation 01/26/21 19:00 01/28/21 18:59 01/26/21 23:06 Insulin Aspart (NovoLOG) EVERY 6 HOURS SUBQ 01/09/21 12:00 04/04/21 16:29 01/27/21 05:47 Ipratropium [place] (Atrovent Inh) 1 puffs Q6HRT INH 01/02/21 19:00 02/01/21 18:59 01/27/21 01:08 Lansoprazole (Prevacid) 30 mg DAILY GT 01/24/21 09:00 02/15/21 08:59 01/26/21 08:13 Midazolam HCl 200 ml @ 0 mls/hr Q24H PRN IV Agitation 01/24/21 00:30 01/31/21 00:29 01/26/21 22:25 Midodrine (Pro-Amatine) 10 mg Q8HR ORAL 01/20/21 14:00 04/20/21 13:59 01/27/21 05:10 Norepinephrine Bitartrate 16 mg/ Sodium Chloride 516 ml @ 23.22 mls/ hr Q24H IV 01/25/21 06:45 01/28/21 06:44 01/26/21 22:27 Nystatin (Nystatin) 5 ml QID ORAL 01/25/21 18:00 02/01/21 17:59 01/26/21 21:10 Ondansetron HCl (Zofran) 4 mg Q4H PRN IVP Nausea & Vomiting 01/02/21 08:15 02/01/21 08:14 Piperacillin Sod/ Tazobactam Sod 3.375 gm/Sodium Chloride 110 ml @ 27.5 mls/hr Q8H IVPB 01/25/21 10:00 02/01/21 09:59 01/27/21 01:32 Potassium Chloride (K-Dur) 20 meq TWICE A DAY NG 01/20/21 13:00 04/20/21 12:59 01/26/21 18:00 Quetiapine Fumarate (SEROqueL) 100 mg Q12HR ORAL 01/20/21 15:00 03/06/21 14:59 01/26/21 20:39 Valproic Acid (Depakene) 500 mg Q12HR GT 01/22/21 21:00 02/21/21 20:59 01/26/21 20:39 Vancomycin HCl (Vanco pharmacy to dose) 1 ea DAILY PRN MISC Per rx protocol 01/25/21 08:15 02/24/21 08:14 Vancomycin HCl 1.5 gm/Sodium Chloride 275 ml @ 137.5 mls/ hr Q8H IVPB 01/27/21 03:00 02/01/21 02:59 01/27/21 02:49 Warfarin Sodium (Coumadin per pharmacy) 1 ea DAILY PRN MISC Per rx protocol 01/02/21 08:30 02/01/21 08:29 Assessment/Plan Assessment/Plan Pulmonary CCM Progress Note Dateon vist: 01/26/2021 HPI Patient is a 60 man with prior h/o COPD, CPS/bipolar DO, 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 ID following, on AB, s/p REM + SM, CXR with bilateral infiltrates - stable. 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, DM2, HTN and hydrocephalus Physical Exam Deferred Covid19 Vital Signs noted Laboratory Tests noted Imaging noted Height (Feet): 5 Height (Inches): 5.00 Weight (Pounds): 233 Medications Medications noted Assessment/Plan Problem List: (1) Pneumonia due to COVID-19 virus ICD Codes: U07.1 - COVID-19; J12.82 - Pneumonia due to coronavirus disease 2018 SNOMED: 442907273525445289 (2) Acute hypercapnic respiratory failure ICD Codes: J96.02 - Acute respiratory failure with hypercapnia SNOMED: 940427262 (3) Respiratory failure with hypoxia ICD Codes: J96.91 - Respiratory failure, unspecified with hypoxia SNOMED: 48230264252572538 Qualifiers: Qualified Codes: J96.01 - Acute respiratory failure with hypoxia (4) COPD (chronic obstructive pulmonary disease) ICD Codes: J44.9 - Chronic obstructive pulmonary disease, unspecified SNOMED: 43751732 (5) History of deep venous thrombosis or pulmonary embolus SNOMED: 462578288 (6) Obesity ICD Codes: E66.9 - Obesity, unspecified SNOMED: 141797389, 873234798 (7) Essential hypertension ICD Codes: I10 - Essential (primary) hypertension SNOMED: 95678641 (8) Diabetes mellitus type 2 in obese ICD Codes: E11.69 - Type 2 diabetes mellitus with other specified complication; E66.9 - Obesity, unspecified SNOMED: 61450599 (9) History of hydrocephalus ICD Codes: Z86.69 - Personal history of other diseases of the nervous system and sense organs SNOMED: 054420108 (10) Schizophrenia ICD Codes: F20.9 - Schizophrenia, unspecified SNOMED: 76451307 (11) Bipolar 1 disorder ICD Codes: F31.9 - Bipolar disorder, unspecified SNOMED: 367454628 (12) Anticoagulant long-term use ICD Codes: Z79.01 - [employer] (current) use of anticoagulants SNOMED: 739914037 Assessment/Plan: ACVC - adjust PRN Adjust FiO2 to keep SaO2 > 92% Reduce PEEP as tolerated Pressors PRN Sedation PRN HFA's F/U inflammatory markers and covid labs ID recs REM per ID Wean SM to off - 10QD previously Abx per ID F/U Cx's Monitor volumes and renal function,diuresis per Renal DVT Px: Coumadin TF when not proned FC Will need tracheostomy - did not tolerate weaning previously Date of visit 01/26/2021 Anuel Luis MD Jan 27, 2021 07:20
[2021-01-27] MEDS: Versed 100mg/NS 200ml 200 ML IV PRN (08:05)
[2021-01-27] MEDS: Benztropine 1mg tab NG SCH ×2 (08:15→20:02)
[2021-01-27] MEDS: Valproic Acid 250mg/5ml Liquid GT SCH ×2 (08:15→20:02)
[2021-01-27] MEDS: Nystatin Susp 500,000 units/5ml ORAL SCH ×4 (08:16→20:02)
[2021-01-27] MEDS: Vancomycin 1.5gm/300ml Premix 300 ML IVPB SCH ×2 (10:34→19:41)
--- NOTE | 2021-01-27 11:17 | Surgery Progress Note ---
Surgery Progress Note Subjective Additional Comments Patient seen and examined bedside. No acute events. Weaning Objective Last 24 Hour Vital Signs Date Time Temp Pulse Resp B/P (MAP) Pulse Ox O2 Delivery O2 Flow Rate FiO2 01/27/21 09:00 80 22 96/55 (69) 95 01/27/21 08:30 72 22 97/64 (75) 96 01/27/21 08:05 22 97/57 Mechanical Ventilator 50 01/27/21 08:00 50 01/27/21 08:00 97.2 72 22 97/57 (70) 97 01/27/21 08:00 Mechanical Ventilator 01/27/21 08:00 108 01/27/21 07:30 72 22 101/63 (76) 98 01/27/21 07:00 22 101/63 Mechanical Ventilator 50 01/27/21 07:00 101/63 01/27/21 07:00 22 101/63 Mechanical Ventilator 50 01/27/21 07:00 72 22 101/63 (76) 98 01/27/21 06:45 97/57 01/27/21 06:45 72 22 96/62 (73) 99 01/27/21 06:30 74 22 90/59 (69) 98 01/27/21 06:15 81 22 82/51 (61) 98 01/27/21 06:00 26 114/55 Mechanical Ventilator 50 01/27/21 06:00 96/64 01/27/21 06:00 22 96/64 Mechanical Ventilator 50 01/27/21 06:00 81 22 96/64 (75) 97 01/27/21 05:45 81 22 90/59 (69) 96 01/27/21 05:30 85 22 93/55 (68) 94 01/27/21 05:30 22 96/53 Mechanical Ventilator 50 01/27/21 05:30 22 96/53 Mechanical Ventilator 50 01/27/21 05:21 86 22 96/53 (67) 94 01/27/21 05:15 91 21 89/58 (68) 94 01/27/21 05:15 21 89/58 Mechanical Ventilator 50 01/27/21 05:15 89/58 01/27/21 05:15 21 89/58 Mechanical Ventilator 50 01/27/21 05:00 96 20 90/59 (69) 94 01/27/21 05:00 20 90/59 Mechanical Ventilator 50 01/27/21 05:00 90/59 01/27/21 05:00 20 90/ Mechanical Ventilator 50 01/27/21 04:45 98 27 107/59 (75) 95 01/27/21 04:30 113 25 147/113 (124) 98 01/27/21 04:30 20 147/113 Mechanical Ventilator 50 01/27/21 04:30 20 147/113 Mechanical Ventilator 50 01/27/21 04:15 106 27 185/158 (167) 97 01/27/21 04:15 27 185/158 Mechanical Ventilator 50 01/27/21 04:15 27 185/158 Mechanical Ventilator 50 01/27/21 04:15 98 27 182/82 (115) 96 01/27/21 04:00 Mechanical Ventilator 01/27/21 04:00 50 01/27/21 04:00 34 169/134 Mechanical Ventilator 50 01/27/21 04:00 169/134 01/27/21 04:00 34 169/134 Mechanical Ventilator 34 01/27/21 04:00 98.3 101 34 169/134 (146) 96 01/27/21 04:00 101 01/27/21 04:00 98.3 101 34 169/134 (146) 96 01/27/21 03:45 110 39 122/83 (96) 100 01/27/21 03:45 39 122/83 Mechanical Ventilator 50 01/27/21 03:45 122/83 01/27/21 03:45 39 122/83 Mechanical Ventilator 50 01/27/21 03:45 110 39 122/83 (96) 100 01/27/21 03:30 101 30 138/88 (105) 96 01/27/21 03:30 30 138/88 Mechanical Ventilator 50 01/27/21 03:30 138/88 01/27/21 03:30 30 138/88 Mechanical Ventilator 50 01/27/21 03:30 101 30 138/88 (105) 96 01/27/21 03:15 99 25 155/84 (107) 95 01/27/21 03:15 25 155/84 Mechanical Ventilator 50 01/27/21 03:15 155/84 01/27/21 03:15 25 155/84 Mechanical Ventilator 50 01/27/21 03:15 99 25 155/84 (107) 95 01/27/21 03:00 95 35 116/99 (105) 95 01/27/21 03:00 35 116/99 Mechanical Ventilator 50 01/27/21 03:00 116/99 01/27/21 03:00 35 116/99 Mechanical Ventilator 50 01/27/21 03:00 95 35 116/99 (105) 95 01/27/21 02:45 100 42 115/68 (84) 97 01/27/21 02:38 95 24 50 01/27/21 02:30 112 44 128/80 (96) 96 01/27/21 02:15 110 26 120/95 (103) 94 01/27/21 02:00 26 114/54 Mechanical Ventilator 50 01/27/21 02:00 114/54 01/27/21 02:00 26 114/54 Mechanical Ventilator 50 01/27/21 02:00 127 26 114/54 (74) 96 01/27/21 01:45 40 123/64 Mechanical Ventilator 50 01/27/21 01:45 127 40 123/64 (83) 96 01/27/21 01:30 36 149/81 Mechanical Ventilator 50 01/27/21 01:30 36 149/81 Mechanical Ventilator 50 01/27/21 01:30 94 36 149/81 (103) 97 01/27/21 01:15 37 140/80 Mechanical Ventilator 50 01/27/21 01:15 100 37 140/80 (100) 99 01/27/21 01:00 85 44 138/70 (92) 95 01/27/21 01:00 44 138/70 Mechanical Ventilator 50 01/27/21 01:00 138/70 01/27/21 01:00 44 138/70 Mechanical Ventilator 50 01/27/21 00:30 95 22 92/53 (66) 94 01/27/21 00:00 84 01/27/21 00:00 50 01/27/21 00:00 22 135/79 Mechanical Ventilator 50 01/27/21 00:00 135/79 01/27/21 00:00 22 135/79 Mechanical Ventilator 50 01/27/21 00:00 Mechanical Ventilator 01/27/21 00:00 96.8 84 22 135/79 (97) 93 01/26/21 23:30 74 22 138/77 (97) 95 01/26/21 23:15 70 23 136/84 (101) 93 01/26/21 23:06 22 130/81 Mechanical Ventilator 50 01/26/21 23:00 130/81 01/26/21 23:00 22 130/81 Mechanical Ventilator 50 01/26/21 23:00 22 130/81 Mechanical Ventilator 50 01/26/21 23:00 70 22 130/81 (97) 95 01/26/21 22:55 66 22 50 01/26/21 22:45 58 21 128/85 (99) 94 01/26/21 22:45 21 128/85 Mechanical Ventilator 50 01/26/21 22:45 21 128/85 Mechanical Ventilator 50 01/26/21 22:39 56 22 126/78 (94) 93 01/26/21 22:30 84 22 92/62 (72) 95 01/26/21 22:27 84/52 01/26/21 22:25 22 86/45 Mechanical Ventilator 50 01/26/21 22:15 86/45 01/26/21 22:15 86 22 86/45 (59) 95 01/26/21 22:00 76 22 122/74 (90) 95 01/26/21 22:00 122/74 01/26/21 22:00 22 122/74 Mechanical Ventilator 50 01/26/21 22:00 22 122/74 Mechanical Ventilator 50 01/26/21 21:30 78 22 117/68 (84) 96 01/26/21 21:00 72 21 133/82 (99) 98 01/26/21 21:00 133/82 01/26/21 21:00 21 133/82 Mechanical Ventilator 50 01/26/21 21:00 21 133/82 Mechanical Ventilator 50 01/26/21 20:15 76 22 125/73 (90) 97 01/26/21 20:00 50 01/26/21 20:00 Mechanical Ventilator 01/26/21 20:00 76 01/26/21 20:00 128/83 01/26/21 20:00 22 128/83 Mechanical Ventilator 50 01/26/21 20:00 22 128/83 Mechanical Ventilator 50 01/26/21 20:00 96.5 76 22 128/83 (98) 97 01/26/21 19:45 76 22 121/70 (87) 96 01/26/21 19:30 76 22 118/73 (88) 97 01/26/21 19:24 75 22 50 01/26/21 19:15 76 22 124/74 (91) 96 01/26/21 19:00 78 22 121/73 (89) 96 01/26/21 18:45 80 22 118/76 (90) 96 01/26/21 18:39 83 21 112/69 (83) 98 01/26/21 18:37 83 22 82/45 (57) 96 01/26/21 18:30 84 22 54/25 (35) 95 01/26/21 18:15 81 21 96 01/26/21 18:00 84 22 115/73 (87) 95 01/26/21 18:00 81 22 114/68 (83) 96 01/26/21 17:45 97.9 81 22 113/69 (84) 96 01/26/21 17:30 81 22 119/74 (89) 96 01/26/21 17:17 87 22 55 01/26/21 17:15 82 22 115/73 (87) 97 01/26/21 17:00 103 27 102/65 (77) 97 01/26/21 17:00 80 22 113/68 (83) 97 01/26/21 16:45 84 22 99/60 (73) 96 01/26/21 16:30 84 22 104/59 (74) 96 01/26/21 16:15 85 22 101/60 (74) 96 01/26/21 16:00 Mechanical Ventilator 01/26/21 16:00 100 01/26/21 16:00 99.1 85 22 106/60 (75) 96 01/26/21 16:00 85 22 106/60 (75) 96 01/26/21 15:45 84 22 110/66 (81) 96 01/26/21 15:30 87 22 110/70 (83) 95 01/26/21 15:15 90 22 97/57 (70) 95 01/26/21 15:00 22 97/57 Mechanical Ventilator 55 01/26/21 15:00 22 97/57 Mechanical Ventilator 55 01/26/21 15:00 91 20 92/53 (66) 94 01/26/21 15:00 89 0 92/53 (66) 94 01/26/21 14:45 89 15 88/52 (64) 94 01/26/21 14:30 85 0 99/62 (74) 96 01/26/21 14:30 55 01/26/21 14:24 85 22 55 01/26/21 14:15 85 18 90/53 (65) 97 01/26/21 14:00 84 22 90/53 (65) 98 01/26/21 14:00 84 0 93/55 (68) 97 01/26/21 14:00 22 90/53 Mechanical Ventilator 22 01/26/21 14:00 22 90/53 Mechanical Ventilator 65 01/26/21 13:45 82 0 90/54 (66) 96 01/26/21 13:30 81 0 100/60 (73) 97 01/26/21 13:17 22 94/57 65 01/26/21 13:15 84 22 94/57 (69) 96 01/26/21 13:05 85 22 65 01/26/21 13:00 83 22 88/42 (57) 96 01/26/21 13:00 84 22 85/49 (61) 94 01/26/21 13:00 22 94/57 Mechanical Ventilator 65 01/26/21 13:00 22 94/57 Mechanical Ventilator 65 01/26/21 12:45 84 22 92/53 (66) 94 01/26/21 12:38 65 01/26/21 12:30 83 22 95/51 (66) 94 01/26/21 12:15 81 22 97/51 (66) 95 01/26/21 12:00 81 22 95/52 (66) 94 01/26/21 12:00 83 01/26/21 12:00 22 97/51 Mechanical Ventilator 65 01/26/21 12:00 22 97/51 Mechanical Ventilator 65 01/26/21 12:00 Mechanical Ventilator 01/26/21 12:00 97.4 81 22 90/54 (66) 96 01/26/21 11:55 78 27 65 01/26/21 11:55 70 01/26/21 11:45 79 22 97/57 (70) 95 01/26/21 11:30 79 22 95/48 (64) 94 01/26/21 11:24 78 27 70 01/26/21 11:24 70 I&O Intake and Output 01/26/21 01/27/21 19:00 07:00 Intake Total 2034.188 ml 1926.35 ml Output Total 1115 ml 960 ml Balance 919.188 ml 966.35 ml Free Water 200 ml IV Total 1144.188 ml 1216.35 ml Tube Feeding 690 ml 480 ml Other 230 ml Output Urine Total 1115 ml 960 ml # Bowel Movements 2 Dressing: saturated Cardiovascular: RSR Respiratory: decreased breath sounds Abdomen: soft, non-tender, present bowel sounds, non-distended, decreased bowel sounds Extremities: no edema, no tenderness, no cyanosis Laboratory Tests Test 01/27/21 00:56 01/27/21 04:00 01/27/21 08:29 Vancomycin Level Trough 9.2 ug/mL (5.0-12.0) White Blood Count 6.5 K/UL (4.8-10.8) Red Blood Count 4.63 M/UL (4.70-6.10) L Hemoglobin 13.1 G/DL (14.2-18.0) L Hematocrit 43.4 % (42.0-52.0) Mean Corpuscular Volume 94 FL (80-99) Mean Corpuscular Hemoglobin 28.2 PG (27.0-31.0) Mean Corpuscular Hemoglobin Concent 30.1 G/DL (32.0-36.0) L Red Cell Distribution Width 15.3 % (11.6-14.8) H Platelet Count 139 K/UL (150-450) L Mean Platelet Volume 8.6 FL (6.5-10.1) Neutrophils (%) (Auto) 73.8 % (45.0-75.0) Lymphocytes (%) (Auto) 12.1 % (20.0-45.0) L Monocytes (%) (Auto) 6.6 % (1.0-10.0) Eosinophils (%) (Auto) 5.3 % (0.0-3.0) H Basophils (%) (Auto) 2.2 % (0.0-2.0) H Prothrombin Time 24.1 SEC (9.30-11.50) H Prothromb Time International Ratio 2.3 (0.9-1.1) H Sodium Level 140 MMOL/L (136-145) Potassium Level 4.9 MMOL/L (3.5-5.1) Chloride Level 104 MMOL/L (98-107) Carbon Dioxide Level 25 MMOL/L (21-32) Anion Gap 11 mmol/L (5-15) Blood Urea Nitrogen 9 mg/dL (7-18) Creatinine 0.8 MG/DL (0.55-1.30) Estimat Glomerular Filtration Rate > 60 mL/min (>60) Glucose Level 295 MG/DL (74-106) H Calcium Level 8.7 MG/DL (8.5-10.1) Phosphorus Level 2.7 MG/DL (2.5-4.9) Magnesium Level 1.9 MG/DL (1.8-2.4) Total Bilirubin 0.2 MG/DL (0.2-1.0) Aspartate Amino Transf (AST/SGOT) 39 U/L (15-37) H Alanine Aminotransferase (ALT/SGPT) 50 U/L (12-78) Alkaline Phosphatase 71 U/L (46-116) C-Reactive Protein, Quantitative 24.1 mg/dL (0.00-0.90) H Pro-B-Type Natriuretic Peptide 70 pg/mL (0-125) Total Protein 6.6 G/DL (6.4-8.2) Albumin 2.0 G/DL (3.4-5.0) L Globulin 4.6 g/dL Albumin/Globulin Ratio 0.4 (1.0-2.7) L Arterial Blood pH 7.439 (7.350-7.450) Arterial Blood Partial Pressure CO2 37.7 mmHg (35.0-45.0) Arterial Blood Partial Pressure O2 60.8 mmHg (75.0-100.0) L Arterial Blood HCO3 25.0 mmol/L (22.0-26.0) Arterial Blood Oxygen Saturation 91.4 % (95-100) L Arterial Blood Base Excess 1.0 (-2-2) Miguelito Test Positive Plan Problems: (1) COPD (chronic obstructive pulmonary disease) (2) Essential hypertension (3) Schizophrenia (4) Obesity (5) Diabetes mellitus type 2 in obese (6) History of hydrocephalus (7) Anticoagulant long-term use (8) Bipolar 1 disorder (9) History of deep venous thrombosis or pulmonary embolus (10) Acute hypercapnic respiratory failure (11) Sepsis Assessment & Plan: 60-year-old male Covid positive respiratory insufficiency and severe decline being prone intubated on vent support labs noted septic ill- appearing has been developing wound around the face from ET tube.Receiv ed report from [facility] pt is being proned and was observed to have developed a blood blister under vent tape on L cheek and L earlobe. Skin assessed and pt was observed to have a blood blister that is 50% de-capped,50% intact. Intact Blood Blister noted to L earlobe. Skin Barrier applied to affected areas. Optifoam Thin foam placed between vent anchor and pt's skin. Optifoam thin placed to R cheek under Vent tape, on Bridge of nose and both earlobes. Given patient's critical status current care plan and findings nutritional optimization is strongly encouraged Covid nutrition plan initiated. All Covid precautions are being taken. Imaging reviewed. Will follow with care plan. Thank you [facility].Plan: Maintain Optifoam Thin foam to R and L cheeks,Bridge of Nose and Both Ears . Change every 7 days and prn.( May request Optifoam Thin from [facility] dept). APM/PEPE Mattress overlay DAILY ESTIMATED NEEDS: Needs based on Critical care, pulmonary, obese 73.7kg abw 22-28 kcals/kg 6623-0656 total kcals 1.2-2 g protein/kg 88-147 g total protein 25-30 mL/kg 5032-9220 total fluid mLs NUTRITION DIAGNOSIS: Altered nutrition related lab values r/t steroidal meds, clinical status as evidenced by febrile on adm (102.5), elevated BG (270 287) on solumedrol, elevated lipid panel (Triglycerides 333, Chol 370, LDL 150). CURRENT TF:Vital @30ml/hr, now Nepro @30 ENTERAL NUTRITION RECOMMENDATIONS: NEPRO @30ml/hr while supine to provide x8 hrs feeds: 360ml, 648 kcal, 29g pro, 262ml free H2O - Feed at rate best tolerated, currently not meeting est needs d/t proning and aspiration risk w/ supine feeds limited to 8hrs/day. - W/ reduced aspiration risk rec feedings to total Volume of 900ml/day of Nepro as medically able. - Monitor tolerance, position/HOB >30 degrees, hemodynamic stability and ability to increase to meet est kcal and pro needs. - With increase pressor support, rec trophic feeds of 10ml/hr for gut integrity. - When tolerating TF at goal add Prosource BID to better meet est pro needs. ADDITIONAL RECOMMENDATIONS: 1) Now intubated, TF recs above when off proning (8hrs feeds) 2) Obtain calibrated bedscale wts 3) HgA1C/ elevated BG Need for niss while on D5 4) Lytes daily; replete as needed 5) Monitor triglycerides, TF tolerance, hemodynamic stability. (12) Respiratory failure with hypoxia (13) Pneumonia due to COVID-19 virus (14) Hyperkalemia (15) DMII (diabetes mellitus, type 2) Ki Strong Jan 27, 2021 11:17
--- NOTE | 2021-01-27 12:22 | Nephrology Progress Note ---
Assessment/Plan Problem List: (1) Hyperkalemia (2) Pneumonia due to COVID-19 virus (3) Respiratory failure with hypoxia (4) Obesity (5) Schizophrenia (6) DMII (diabetes mellitus, type 2) Assessment Hyperkalemia Stable renal parameters Hyperglycemia Covid pneumonia due to COVID-19 virus Acute respiratory failure with hypoxia requiring mechanical ventilation History of COPD History of DVT, pulmonary emboli Obese Hypertension History of diabetes Psych condition, schizophrenia, bipolar disease Plan January 27: Patient remains full code. Intubated on ventilator. FiO2 50%. Labs reviewed. Renal parameters stable. Medication list reviewed. January 26: Full code. Intubated. On ventilator. FiO2 65%. No CHEM panel drawn today. Continue per consultants. January 25: Status unchanged. Blood pressure low. Remains full code on ventilator. Continue per consultants. Medication list reviewed. INR is 3.8 today. January 24: Status quo. Intubated on ventilator and full code. Labs reviewed. Medication list reviewed. Continue per consultants. January 23: Patient on prone position. IntubatedFiO2 65%. Renal parameters stable. Continue per consultants. Date hospitalization. Possible trach?. January 22: FiO2 50%. Prone position. Labs reviewed. Stable from renal standpoint of view. Continue per consultants. January 21: Full code. Intubated on ventilator. FiO2 40%. Labs reviewed. Renal parameters stable. Continue per consultants. January 20: Status unchanged. Full code. On ventilator. Chest x-ray reviewed. IV fluid discontinued. Potassium supplement given. 1 dose of Lasix given. Albumin bolus given. Midodrine started. Will monitor renal parameters and electrolytes. Discussed with JOHAN Mohamud. January 19: Labs reviewed. Renal parameters stable. Remains full code intubated on ventilator. FiO2 50%. Continue per consultants. January 18: Full code. Intubated. On ventilator. FiO2 down to 35%. No labs drawn today. Continue to monitor renal parameters and electrolytes. January 17: Full code. Intubated on ventilator. FiO2 remains at 60%. Labs reviewed. Renal parameters stable. January 16: Full code. Intubated. Labs reviewed. Renal parameters stable. FiO2 60%. Continue per consultants. January 15: Patient remains intubated and full code. Labs reviewed. Stable renal parameters. January 14: Patient full code. Intubated on ventilator. On prone position until 5 PM. Labs reviewed. Stable from renal standpoint of view. January 13: Labs reviewed. Renal parameters stable. Continue per consultants. Patient remain full code and intubated on ventilator. January 12: Labs reviewed. Renal parameters stable. Patient remains full code. Remains intubated on ventilator and on prone position. Continue per consultants. January 11: Labs reviewed. Renal parameters stable. Continue per consultants. January 10: Labs reviewed. Renal parameters stable. Continue per consultants. Change IV to half-normal saline Kayexalate via NG tube for high potassium Monitor electrolytes and renal parameters Per orders, per consultants Subjective ROS Limited/Unobtainable: Yes Objective Objective Last 24 Hour Vital Signs Date Time Temp Pulse Resp B/P (MAP) Pulse Ox O2 Delivery O2 Flow Rate FiO2 01/27/21 11:30 22 99/57 Mechanical Ventilator 50 01/27/21 11:15 22 99/56 Mechanical Ventilator 50 01/27/21 11:00 22 92/55 Mechanical Ventilator 50 01/27/21 11:00 92/55 01/27/21 11:00 22 92/55 Mechanical Ventilator 50 01/27/21 10:45 22 95/54 Mechanical Ventilator 50 01/27/21 10:30 22 91/55 Mechanical Ventilator 50 01/27/21 10:15 22 98/57 Mechanical Ventilator 50 01/27/21 10:00 22 93/54 Mechanical Ventilator 50 01/27/21 10:00 93/54 01/27/21 10:00 22 93/54 Mechanical Ventilator 50 01/27/21 09:45 22 96/55 Mechanical Ventilator 50 01/27/21 09:30 22 96/57 Mechanical Ventilator 50 01/27/21 09:15 22 98/59 Mechanical Ventilator 50 01/27/21 09:00 22 98/59 Mechanical Ventilator 50 01/27/21 09:00 98/59 01/27/21 09:00 22 98/59 Mechanical Ventilator 50 01/27/21 09:00 80 22 96/55 (69) 95 01/27/21 08:30 72 22 97/64 (75) 96 01/27/21 08:05 22 97/57 Mechanical Ventilator 50 01/27/21 08:00 50 01/27/21 08:00 22 100/61 Mechanical Ventilator 50 01/27/21 08:00 100/61 01/27/21 08:00 22 100/61 Mechanical Ventilator 50 01/27/21 08:00 97.2 72 22 97/57 (70) 97 01/27/21 08:00 Mechanical Ventilator 01/27/21 08:00 108 01/27/21 07:30 72 22 101/63 (76) 98 01/27/21 07:00 22 101/63 Mechanical Ventilator 50 01/27/21 07:00 101/63 01/27/21 07:00 22 101/63 Mechanical Ventilator 50 01/27/21 07:00 72 22 101/63 (76) 98 01/27/21 06:45 97/57 01/27/21 06:45 72 22 96/62 (73) 99 01/27/21 06:30 74 22 90/59 (69) 98 01/27/21 06:15 81 22 82/51 (61) 98 01/27/21 06:00 26 114/55 Mechanical Ventilator 50 01/27/21 06:00 96/64 01/27/21 06:00 22 96/64 Mechanical Ventilator 50 01/27/21 06:00 81 22 96/64 (75) 97 01/27/21 05:45 81 22 90/59 (69) 96 01/27/21 05:30 85 22 93/55 (68) 94 01/27/21 05:30 22 96/53 Mechanical Ventilator 50 01/27/21 05:30 22 96/53 Mechanical Ventilator 50 01/27/21 05:21 86 22 96/53 (67) 94 01/27/21 05:15 91 21 89/58 (68) 94 01/27/21 05:15 21 89/58 Mechanical Ventilator 50 01/27/21 05:15 89/58 01/27/21 05:15 21 89/58 Mechanical Ventilator 50 01/27/21 05:00 96 20 90/59 (69) 94 01/27/21 05:00 20 90/59 Mechanical Ventilator 50 01/27/21 05:00 90/59 01/27/21 05:00 20 90/59 Mechanical Ventilator 50 01/27/21 04:45 98 27 107/59 (75) 95 01/27/21 04:30 113 25 147/113 (124) 98 01/27/21 04:30 20 147/113 Mechanical Ventilator 50 01/27/21 04:30 20 147/113 Mechanical Ventilator 50 01/27/21 04:15 106 27 185/158 (167) 97 01/27/21 04:15 27 185/158 Mechanical Ventilator 50 01/27/21 04:15 27 185/158 Mechanical Ventilator 50 01/27/21 04:15 98 27 182/82 (115) 96 01/27/21 04:00 Mechanical Ventilator 01/27/21 04:00 50 01/27/21 04:00 34 169/134 Mechanical Ventilator 50 01/27/21 04:00 169/134 01/27/21 04:00 34 169/134 Mechanical Ventilator 34 01/27/21 04:00 98.3 101 34 169/134 (146) 96 01/27/21 04:00 101 01/27/21 04:00 98.3 101 34 169/134 (146) 96 01/27/21 03:45 110 39 122/83 (96) 100 01/27/21 03:45 39 122/83 Mechanical Ventilator 50 01/27/21 03:45 122/83 01/27/21 03:45 39 122/83 Mechanical Ventilator 50 01/27/21 03:45 110 39 122/83 (96) 100 01/27/21 03:30 101 30 138/88 (105) 96 01/27/21 03:30 30 138/88 Mechanical Ventilator 50 01/27/21 03:30 138/88 01/27/21 03:30 30 138/88 Mechanical Ventilator 50 01/27/21 03:30 101 30 138/88 (105) 96 01/27/21 03:15 99 25 155/84 (107) 95 01/27/21 03:15 25 155/84 Mechanical Ventilator 50 01/27/21 03:15 155/84 01/27/21 03:15 25 155/84 Mechanical Ventilator 50 01/27/21 03:15 99 25 155/84 (107) 95 01/27/21 03:00 95 35 116/99 (105) 95 01/27/21 03:00 35 116/99 Mechanical Ventilator 50 01/27/21 03:00 116/99 01/27/21 03:00 35 116/99 Mechanical Ventilator 50 01/27/21 03:00 95 35 116/99 (105) 95 01/27/21 02:45 100 42 115/68 (84) 97 01/27/21 02:38 95 24 50 01/27/21 02:30 112 44 128/80 (96) 96 01/27/21 02:15 110 26 120/95 (103) 94 01/27/21 02:00 26 114/54 Mechanical Ventilator 50 01/27/21 02:00 114/54 01/27/21 02:00 26 114/54 Mechanical Ventilator 50 01/27/21 02:00 127 26 114/54 (74) 96 01/27/21 01:45 40 123/64 Mechanical Ventilator 50 01/27/21 01:45 127 40 123/64 (83) 96 01/27/21 01:30 36 149/81 Mechanical Ventilator 50 01/27/21 01:30 36 149/81 Mechanical Ventilator 50 01/27/21 01:30 94 36 149/81 (103) 97 01/27/21 01:15 37 140/80 Mechanical Ventilator 50 01/27/21 01:15 100 37 140/80 (100) 99 01/27/21 01:00 85 44 138/70 (92) 95 01/27/21 01:00 44 138/70 Mechanical Ventilator 50 01/27/21 01:00 138/70 01/27/21 01:00 44 138/70 Mechanical Ventilator 50 01/27/21 00:30 95 22 92/53 (66) 94 01/27/21 00:00 84 01/27/21 00:00 50 01/27/21 00:00 22 135/79 Mechanical Ventilator 50 01/27/21 00:00 135/79 01/27/21 00:00 22 135/79 Mechanical Ventilator 50 01/27/21 00:00 Mechanical Ventilator 01/27/21 00:00 96.8 84 22 135/79 (97) 93 01/26/21 23:30 74 22 138/77 (97) 95 01/26/21 23:15 70 23 136/84 (101) 93 01/26/21 23:06 22 130/81 Mechanical Ventilator 50 01/26/21 23:00 130/81 01/26/21 23:00 22 130/81 Mechanical Ventilator 50 01/26/21 23:00 22 130/81 Mechanical Ventilator 50 01/26/21 23:00 70 22 130/81 (97) 95 01/26/21 22:55 66 22 50 01/26/21 22:45 58 21 128/85 (99) 94 01/26/21 22:45 21 128/85 Mechanical Ventilator 50 01/26/21 22:45 21 128/85 Mechanical Ventilator 50 01/26/21 22:39 56 22 126/78 (94) 93 01/26/21 22:30 84 22 92/62 (72) 95 01/26/21 22:27 84/52 01/26/21 22:25 22 86/45 Mechanical Ventilator 50 01/26/21 22:15 86/45 01/26/21 22:15 86 22 86/45 (59) 95 01/26/21 22:00 76 22 122/74 (90) 95 01/26/21 22:00 122/74 01/26/21 22:00 22 122/74 Mechanical Ventilator 50 01/26/21 22:00 22 122/74 Mechanical Ventilator 50 01/26/21 21:30 78 22 117/68 (84) 96 01/26/21 21:00 72 21 133/82 (99) 98 01/26/21 21:00 133/82 01/26/21 21:00 21 133/82 Mechanical Ventilator 50 01/26/21 21:00 21 133/82 Mechanical Ventilator 50 01/26/21 20:15 76 22 125/73 (90) 97 01/26/21 20:00 50 01/26/21 20:00 Mechanical Ventilator 01/26/21 20:00 76 01/26/21 20:00 128/83 01/26/21 20:00 22 128/83 Mechanical Ventilator 50 01/26/21 20:00 22 128/83 Mechanical Ventilator 50 01/26/21 20:00 96.5 76 22 128/83 (98) 97 01/26/21 19:45 76 22 121/70 (87) 96 01/26/21 19:30 76 22 118/73 (88) 97 01/26/21 19:24 75 22 50 01/26/21 19:15 76 22 124/74 (91) 96 01/26/21 19:00 78 22 121/73 (89) 96 01/26/21 18:45 80 22 118/76 (90) 96 01/26/21 18:39 83 21 112/69 (83) 98 01/26/21 18:37 83 22 82/45 (57) 96 01/26/21 18:30 84 22 54/25 (35) 95 01/26/21 18:15 81 21 96 01/26/21 18:00 84 22 115/73 (87) 95 01/26/21 18:00 81 22 114/68 (83) 96 01/26/21 17:45 97.9 81 22 113/69 (84) 96 01/26/21 17:30 81 22 119/74 (89) 96 01/26/21 17:17 87 22 55 01/26/21 17:15 82 22 115/73 (87) 97 01/26/21 17:00 103 27 102/65 (77) 97 01/26/21 17:00 80 22 113/68 (83) 97 01/26/21 16:45 84 22 99/60 (73) 96 01/26/21 16:30 84 22 104/59 (74) 96 01/26/21 16:15 85 22 101/60 (74) 96 01/26/21 16:00 Mechanical Ventilator 01/26/21 16:00 100 01/26/21 16:00 99.1 85 22 106/60 (75) 96 01/26/21 16:00 85 22 106/60 (75) 96 01/26/21 15:45 84 22 110/66 (81) 96 01/26/21 15:30 87 22 110/70 (83) 95 01/26/21 15:15 90 22 97/57 (70) 95 01/26/21 15:00 22 97/57 Mechanical Ventilator 55 01/26/21 15:00 22 97/57 Mechanical Ventilator 55 01/26/21 15:00 91 20 92/53 (66) 94 01/26/21 15:00 89 0 92/53 (66) 94 01/26/21 14:45 89 15 88/52 (64) 94 01/26/21 14:30 85 0 99/62 (74) 96 01/26/21 14:30 55 01/26/21 14:24 85 22 55 01/26/21 14:15 85 18 90/53 (65) 97 01/26/21 14:00 84 22 90/53 (65) 98 01/26/21 14:00 84 0 93/55 (68) 97 01/26/21 14:00 22 90/53 Mechanical Ventilator 22 01/26/21 14:00 22 90/53 Mechanical Ventilator 65 01/26/21 13:45 82 0 90/54 (66) 96 01/26/21 13:30 81 0 100/60 (73) 97 01/26/21 13:17 22 94/57 65 01/26/21 13:15 84 22 94/57 (69) 96 01/26/21 13:05 85 22 65 01/26/21 13:00 83 22 88/42 (57) 96 01/26/21 13:00 84 22 85/49 (61) 94 01/26/21 13:00 22 94/57 Mechanical Ventilator 65 01/26/21 13:00 22 94/57 Mechanical Ventilator 65 01/26/21 12:45 84 22 92/53 (66) 94 01/26/21 12:38 65 01/26/21 12:30 83 22 95/51 (66) 94 Intake and Output 01/26/21 01/27/21 19:00 07:00 Intake Total 2034.188 ml 1926.35 ml Output Total 1115 ml 960 ml Balance 919.188 ml 966.35 ml Free Water 200 ml IV Total 1144.188 ml 1216.35 ml Tube Feeding 690 ml 480 ml Other 230 ml Output Urine Total 1115 ml 960 ml # Bowel Movements 2 Current Medications Medications (Trade) Dose Ordered Sig/Johnny Route PRN Reason Start Time Stop Time Status Last Admin Dose Admin Acetaminophen (Tylenol) 650 mg Q6H PRN NG Temp >100.5 01/09/21 09:15 02/08/21 09:14 01/26/21 02:05 Acetaminophen (Tylenol) 650 mg Q6H PRN NG Mild Pain (Pain Scale 1-3) 01/09/21 09:15 02/08/21 09:14 01/27/21 05:10 Albuterol Sulfate (Proventil MDI) 2 puff Q6HRT INH 01/02/21 19:00 04/02/21 18:59 01/27/21 08:17 Benztropine Mesylate (Cogentin) 1 mg EVERY 12 HOURS NG 01/09/21 09:15 02/01/21 09:14 01/27/21 08:15 Chlorhexidine Gluconate (Myranda-Hex 2%) 1 applic DAILY@1999 TOPIC 01/12/21 20:00 04/12/21 19:59 01/26/21 19:42 Dextrose (Dextrose 50%) 25 ml Q30M PRN IV Hypoglycemia 01/06/21 23:45 04/06/21 23:44 Dextrose (Dextrose 50%) 50 ml Q30M PRN IV Hypoglycemia 01/06/21 23:45 04/06/21 23:44 Fentanyl Citrate 250 ml @ 1 mls/hr Q24H PRN IV Agitation 01/26/21 19:00 01/28/21 18:59 01/26/21 23:06 Insulin Aspart (NovoLOG) EVERY 6 HOURS SUBQ 01/09/21 12:00 04/04/21 16:29 01/27/21 05:47 Ipratropium [place] (Atrovent Inh) 1 puffs Q6HRT INH 01/02/21 19:00 02/01/21 18:59 01/27/21 08:17 Lansoprazole (Prevacid) 30 mg DAILY GT 01/24/21 09:00 02/15/21 08:59 01/27/21 08:15 Midazolam HCl 200 ml @ 0 mls/hr Q24H PRN IV Agitation 01/24/21 00:30 01/31/21 00:29 01/27/21 08:05 Midodrine (Pro-Amatine) 10 mg Q8HR ORAL 01/20/21 14:00 04/20/21 13:59 01/27/21 05:10 Norepinephrine Bitartrate 16 mg/ Sodium Chloride 516 ml @ 23.22 mls/ hr Q24H IV 01/25/21 06:45 01/28/21 06:44 01/26/21 22:27 Nystatin (Nystatin) 5 ml QID ORAL 01/25/21 18:00 02/01/21 17:59 01/27/21 08:16 Ondansetron HCl (Zofran) 4 mg Q4H PRN IVP Nausea & Vomiting 01/02/21 08:15 02/01/21 08:14 Piperacillin Sod/ Tazobactam Sod 3.375 gm/Sodium Chloride 110 ml @ 27.5 mls/hr Q8H IVPB 01/25/21 10:00 02/01/21 09:59 01/27/21 10:34 Potassium Chloride (K-Dur) 20 meq TWICE A DAY NG 01/20/21 13:00 04/20/21 12:59 01/26/21 18:00 Quetiapine Fumarate (SEROqueL) 100 mg Q12HR ORAL 01/20/21 15:00 03/06/21 14:59 01/27/21 08:16 Valproic Acid (Depakene) 500 mg Q12HR GT 01/22/21 21:00 02/21/21 20:59 01/27/21 08:15 Vancomycin HCl 300 ml @ 150 mls/hr Q8H IVPB 01/27/21 11:00 02/01/21 02:59 01/27/21 10:34 [facility] ea DAILY PRN MISC Per rx protocol 01/25/21 08:15 02/24/21 08:14 Warfarin Sodium (Coumadin per pharmacy) 1 ea DAILY PRN MISC Per rx protocol 01/02/21 08:30 02/01/21 08:29 Warfarin Sodium (Warfarin Sod) 3 mg COUMADIN ORAL 01/27/21 17:00 01/27/21 19:00 Laboratory Tests 01/27/21 00:56: Vancomycin Level Trough 9.2 01/27/21 04:00: White Blood Count 6.5, Red Blood Count 4.63L, Hemoglobin 13.1L, Hematocrit 43.4, Mean Corpuscular Volume 94, Mean Corpuscular Hemoglobin 28.2, Mean Corpuscular Hemoglobin Concent 30.1L, Red Cell Distribution Width 15.3H, Platelet Count 139L , Mean Platelet Volume 8.6, Neutrophils (%) (Auto) 73.8, Lymphocytes (%) (Auto) 12.1L, Monocytes (%) (Auto) 6.6, Eosinophils (%) (Auto) 5.3H, Basophils (%) (Auto) 2.2H, Prothrombin Time 24.1H, Prothromb Time International Ratio 2.3H, Sodium Level 140, Potassium Level 4.9, Chloride Level 104, Carbon Dioxide Level 25, Anion Gap 11, Blood Urea Nitrogen 9, Creatinine 0.8, Estimat Glomerular Filtration Rate > 60, Glucose Level 295H, Calcium Level 8.7, Phosphorus Level 2.7, Magnesium Level 1.9, Total Bilirubin 0.2, Aspartate Amino Transf (AST/SGOT) 39H, Alanine Aminotransferase (ALT/SGPT) 50, Alkaline Phosphatase 71, C-Reactive Protein, Quantitative 24.1H, Pro-B-Type Natriuretic Peptide 70, Total Protein 6.6, Albumin 2.0L, Globulin 4.6, Albumin/Globulin Ratio 0.4L 01/27/21 08:29: Arterial Blood pH 7.439, Arterial Blood Partial Pressure CO2 37.7, Arterial Blood Partial Pressure O2 60.8L, Arterial Blood HCO3 25.0, Arterial Blood Oxygen Saturation 91.4L, Arterial Blood Base Excess 1.0, Miguelito Test Positive Height (Feet): 5 Height (Inches): 5.00 Weight (Pounds): 233 General Appearance: no apparent distress EENT: other - Intubated on ventilator with FiO2 of 50% Cardiovascular: tachycardia Respiratory/Chest: decreased breath sounds Abdomen: distended Avi Frye MD Jan 27, 2021 12:22
--- NOTE | 2021-01-27 12:45 | Infectious Diseases Prog Note ---
Assessment/Plan 60yo M with: Septic SHock Receurrent Gram postiive bacteremia r/o gentry infection -01/25 Bcx / sets GPC clustesr Staph epi bacteremia, m/l skin contaminant 01/10 BCx 12/01 +Staph epi 01/13 BCx NTD COVID pna, severe Acute hypoxia / COVID pna >> intubated 01/06- 50% FIo2 Febrile to 103; imporving Normal WBC Elevated AST 51 01/01 Tested positive for COVID at [facility] 01/02 COVID PCR positive 01/02 BCx NTD CXR: Multifocal pna MRSA nares neg 01/06 Intubated in ICU CXR: 1. Appropriately positioned endotracheal and enteric tubes. 2. Stable bilateral airspace disease. 01/07 Resp cx +Yasmine albicans (colonizer) 01/11 CXR: Interval improved bilateral lung aeration. Bibasilar infiltrates/atelectasis. Cr 1.1 HIV screen neg PMH: DM2 COPD HTN SNF resident Plan: Cont Vancomycin #3 and Zosyn #3 Lux Cx CXR Monitor WBCs Monitor temps 01/22/21 steroids #19, on methylpred 20 IV q12 - defer course to Pulm/Primary, now tapering 01/19/21 SP Zosyn #10 01/14 SP vanco IV #1 01/09 SP CTX #7 01/07 SP azithro #5, RDV #5 This institution does not have access to convalescent plasma and only recommended to give in setting of clinical trial Monitor temp curve, hemodynamics Monitor resp status Bcx2 remove central line D/w RN Thank you for this consult. [facility] will continue to follow. Subjective Allergies: Coded Allergies: No Known Allergies (Unverified , 01/02/21) levo at 8 afebrile > 24hrs FIo2 50% no leukocytosis bacteremic Objective Last 24 Hour Vital Signs Date Time Temp Pulse Resp B/P (MAP) Pulse Ox O2 Delivery O2 Flow Rate FiO2 01/27/21 11:30 22 99/57 Mechanical Ventilator 50 01/27/21 11:15 22 99/56 Mechanical Ventilator 50 01/27/21 11:00 22 92/55 Mechanical Ventilator 50 01/27/21 11:00 92/55 01/27/21 11:00 22 92/55 Mechanical Ventilator 50 01/27/21 10:45 22 95/54 Mechanical Ventilator 50 01/27/21 10:30 22 91/55 Mechanical Ventilator 50 01/27/21 10:15 22 98/57 Mechanical Ventilator 50 01/27/21 10:00 22 93/54 Mechanical Ventilator 50 01/27/21 10:00 93/54 01/27/21 10:00 22 93/54 Mechanical Ventilator 50 01/27/21 09:45 22 96/55 Mechanical Ventilator 50 01/27/21 09:30 22 96/57 Mechanical Ventilator 50 01/27/21 09:15 22 98/59 Mechanical Ventilator 50 01/27/21 09:00 22 98/59 Mechanical Ventilator 50 01/27/21 09:00 98/59 01/27/21 09:00 22 98/59 Mechanical Ventilator 50 01/27/21 09:00 80 22 96/55 (69) 95 01/27/21 08:30 72 22 97/64 (75) 96 01/27/21 08:05 22 97/57 Mechanical Ventilator 50 01/27/21 08:00 50 01/27/21 08:00 22 100/61 Mechanical Ventilator 50 01/27/21 08:00 100/61 01/27/21 08:00 22 100/61 Mechanical Ventilator 50 01/27/21 08:00 97.2 72 22 97/57 (70) 97 01/27/21 08:00 Mechanical Ventilator 01/27/21 08:00 108 01/27/21 07:30 72 22 101/63 (76) 98 01/27/21 07:00 22 101/63 Mechanical Ventilator 50 01/27/21 07:00 101/63 01/27/21 07:00 22 101/63 Mechanical Ventilator 50 01/27/21 07:00 72 22 101/63 (76) 98 01/27/21 06:45 97/57 01/27/21 06:45 72 22 96/62 (73) 99 01/27/21 06:30 74 22 90/59 (69) 98 01/27/21 06:15 81 22 82/51 (61) 98 01/27/21 06:00 26 114/55 Mechanical Ventilator 50 01/27/21 06:00 96/64 01/27/21 06:00 22 96/64 Mechanical Ventilator 50 01/27/21 06:00 81 22 96/64 (75) 97 01/27/21 05:45 81 22 90/59 (69) 96 01/27/21 05:30 85 22 93/55 (68) 94 01/27/21 05:30 22 96/53 Mechanical Ventilator 50 01/27/21 05:30 22 96/53 Mechanical Ventilator 50 01/27/21 05:21 86 22 96/53 (67) 94 01/27/21 05:15 91 21 89/58 (68) 94 01/27/21 05:15 21 89/58 Mechanical Ventilator 50 01/27/21 05:15 89/58 01/27/21 05:15 21 89/58 Mechanical Ventilator 50 01/27/21 05:00 96 20 90/59 (69) 94 01/27/21 05:00 20 [id number] Mechanical Ventilator 50 01/27/21 05:00 90/59 01/27/21 05:00 20 90/59 Mechanical Ventilator 50 01/27/21 04:45 98 27 107/59 (75) 95 01/27/21 04:30 113 25 147/113 (124) 98 01/27/21 04:30 20 147/113 Mechanical Ventilator 50 01/27/21 04:30 20 147/113 Mechanical Ventilator 50 01/27/21 04:15 106 27 185/158 (167) 97 01/27/21 04:15 27 185/158 Mechanical Ventilator 50 01/27/21 04:15 27 185/158 Mechanical Ventilator 50 01/27/21 04:15 98 27 182/82 (115) 96 01/27/21 04:00 Mechanical Ventilator 01/27/21 04:00 50 01/27/21 04:00 34 169/134 Mechanical Ventilator 50 01/27/21 04:00 169/134 01/27/21 04:00 34 169/134 Mechanical Ventilator 34 01/27/21 04:00 98.3 101 34 169/134 (146) 96 01/27/21 04:00 101 01/27/21 04:00 98.3 101 34 169/134 (146) 96 01/27/21 03:45 110 39 122/83 (96) 100 01/27/21 03:45 39 122/83 Mechanical Ventilator 50 01/27/21 03:45 122/83 01/27/21 03:45 39 122/83 Mechanical Ventilator 50 01/27/21 03:45 110 39 122/83 (96) 100 01/27/21 03:30 101 30 138/88 (105) 96 01/27/21 03:30 30 138/88 Mechanical Ventilator 50 01/27/21 03:30 138/88 01/27/21 03:30 30 138/88 Mechanical Ventilator 50 01/27/21 03:30 101 30 138/88 (105) 96 01/27/21 03:15 99 25 155/84 (107) 95 01/27/21 03:15 25 155/84 Mechanical Ventilator 50 01/27/21 03:15 155/84 01/27/21 03:15 25 155/84 Mechanical Ventilator 50 01/27/21 03:15 99 25 155/84 (107) 95 01/27/21 03:00 95 35 116/99 (105) 95 01/27/21 03:00 35 116/99 Mechanical Ventilator 50 01/27/21 03:00 116/99 01/27/21 03:00 35 116/99 Mechanical Ventilator 50 01/27/21 03:00 95 35 116/99 (105) 95 01/27/21 02:45 100 42 115/68 (84) 97 01/27/21 02:38 95 24 50 01/27/21 02:30 112 44 128/80 (96) 96 01/27/21 02:15 110 26 120/95 (103) 94 01/27/21 02:00 26 114/54 Mechanical Ventilator 50 01/27/21 02:00 114/54 01/27/21 02:00 26 114/54 Mechanical Ventilator 50 01/27/21 02:00 127 26 114/54 (74) 96 01/27/21 01:45 40 123/64 Mechanical Ventilator 50 01/27/21 01:45 127 40 123/64 (83) 96 01/27/21 01:30 36 149/81 Mechanical Ventilator 50 01/27/21 01:30 36 149/81 Mechanical Ventilator 50 01/27/21 01:30 94 36 149/81 (103) 97 01/27/21 01:15 37 140/80 Mechanical Ventilator 50 01/27/21 01:15 100 37 140/80 (100) 99 01/27/21 01:00 85 44 138/70 (92) 95 01/27/21 01:00 44 138/70 Mechanical Ventilator 50 01/27/21 01:00 138/70 01/27/21 01:00 44 138/70 Mechanical Ventilator 50 01/27/21 00:30 95 22 92/53 (66) 94 01/27/21 00:00 84 01/27/21 00:00 50 01/27/21 00:00 22 135/79 Mechanical Ventilator 50 01/27/21 00:00 135/79 01/27/21 00:00 22 135/79 Mechanical Ventilator 50 01/27/21 00:00 Mechanical Ventilator 01/27/21 00:00 96.8 84 22 135/79 (97) 93 01/26/21 23:30 74 22 138/77 (97) 95 01/26/21 23:15 70 23 136/84 (101) 93 01/26/21 23:06 22 130/81 Mechanical Ventilator 50 01/26/21 23:00 130/81 01/26/21 23:00 22 130/81 Mechanical Ventilator 50 01/26/21 23:00 22 130/81 Mechanical Ventilator 50 01/26/21 23:00 70 22 130/81 (97) 95 01/26/21 22:55 66 22 50 01/26/21 22:45 58 21 128/85 (99) 94 01/26/21 22:45 21 128/85 Mechanical Ventilator 50 01/26/21 22:45 21 128/85 Mechanical Ventilator 50 01/26/21 22:39 56 22 126/78 (94) 93 01/26/21 22:30 84 22 92/62 (72) 95 01/26/21 22:27 84/52 01/26/21 22:25 22 86/45 Mechanical Ventilator 50 01/26/21 22:15 86/45 01/26/21 22:15 86 22 86/45 (59) 95 01/26/21 22:00 76 22 122/74 (90) 95 01/26/21 22:00 122/74 01/26/21 22:00 22 122/74 Mechanical Ventilator 50 01/26/21 22:00 22 122/74 Mechanical Ventilator 50 01/26/21 21:30 78 22 117/68 (84) 96 01/26/21 21:00 72 21 133/82 (99) 98 01/26/21 21:00 133/82 01/26/21 21:00 21 133/82 Mechanical Ventilator 50 01/26/21 21:00 21 133/82 Mechanical Ventilator 50 01/26/21 20:15 76 22 125/73 (90) 97 01/26/21 20:00 50 01/26/21 20:00 Mechanical Ventilator 01/26/21 20:00 76 01/26/21 20:00 128/83 01/26/21 20:00 22 128/83 Mechanical Ventilator 50 01/26/21 20:00 22 128/83 Mechanical Ventilator 50 01/26/21 20:00 96.5 76 22 128/83 (98) 97 01/26/21 19:45 76 22 121/70 (87) 96 01/26/21 19:30 76 22 118/73 (88) 97 01/26/21 19:24 75 22 50 01/26/21 19:15 76 22 124/74 (91) 96 01/26/21 19:00 78 22 121/73 (89) 96 01/26/21 18:45 80 22 118/76 (90) 96 01/26/21 18:39 83 21 112/69 (83) 98 01/26/21 18:37 83 22 82/45 (57) 96 01/26/21 18:30 84 22 54/25 (35) 95 01/26/21 18:15 81 21 96 01/26/21 18:00 84 22 115/73 (87) 95 01/26/21 18:00 81 22 114/68 (83) 96 01/26/21 17:45 97.9 81 22 113/69 (84) 96 01/26/21 17:30 81 22 119/74 (89) 96 01/26/21 17:17 87 22 55 01/26/21 17:15 82 22 115/73 (87) 97 01/26/21 17:00 103 27 102/65 (77) 97 01/26/21 17:00 80 22 113/68 (83) 97 01/26/21 16:45 84 22 99/60 (73) 96 01/26/21 16:30 84 22 104/59 (74) 96 01/26/21 16:15 85 22 101/60 (74) 96 01/26/21 16:00 Mechanical Ventilator 01/26/21 16:00 100 01/26/21 16:00 99.1 85 22 106/60 (75) 96 01/26/21 16:00 85 22 106/60 (75) 96 01/26/21 15:45 84 22 110/66 (81) 96 01/26/21 15:30 87 22 110/70 (83) 95 01/26/21 15:15 90 22 97/57 (70) 95 01/26/21 15:00 22 97/57 Mechanical Ventilator 55 01/26/21 15:00 22 97/57 Mechanical Ventilator 55 01/26/21 15:00 91 20 92/53 (66) 94 01/26/21 15:00 89 0 92/53 (66) 94 01/26/21 14:45 89 15 88/52 (64) 94 01/26/21 14:30 85 0 99/62 (74) 96 01/26/21 14:30 55 01/26/21 14:24 85 22 55 01/26/21 14:15 85 18 90/53 (65) 97 01/26/21 14:00 84 22 90/53 (65) 98 01/26/21 14:00 84 0 93/55 (68) 97 01/26/21 14:00 22 90/53 Mechanical Ventilator 22 01/26/21 14:00 22 90/53 Mechanical Ventilator 65 01/26/21 13:45 82 0 90/54 (66) 96 01/26/21 13:30 81 0 100/60 (73) 97 01/26/21 13:17 22 94/57 65 01/26/21 13:15 84 22 94/57 (69) 96 01/26/21 13:05 85 22 65 01/26/21 13:00 83 22 88/42 (57) 96 01/26/21 13:00 84 22 85/49 (61) 94 01/26/21 13:00 22 94/57 Mechanical Ventilator 65 01/26/21 13:00 22 94/57 Mechanical Ventilator 65 01/26/21 12:45 84 22 92/53 (66) 94 01/26/21 12:38 65 01/26/21 12:30 83 22 95/51 (66) 94 Height (Feet): 5 Height (Inches): 5.00 Weight (Pounds): 233 Gen: NAD on Vent 65% O2 satting well HEENT: NCAT, ETT Pulm: BL chest rise, RRR Ext: No c/c/e Skin: No visible rashes Neuro: Not following Microbiology Date/Time Source Procedure Growth Status 01/25/21 12:00 Blood Blood Culture - Preliminary Resulted 01/25/21 11:50 Blood Blood Culture - Preliminary Resulted 01/25/21 10:15 Indwelling Cath Urine Culture - Preliminary Gram Positive Cocci Resulted 01/25/21 10:15 Nasopharynx Coronavirus COVID-19 PCR (SUZETTE) - Final Complete 01/25/21 10:15 Sputum Gram Stain - Final Resulted 01/25/21 10:15 Sputum Sputum Culture Pending Resulted Laboratory Tests Test 01/27/21 00:56 01/27/21 04:00 01/27/21 08:29 Vancomycin Level Trough 9.2 ug/mL (5.0-12.0) White Blood Count 6.5 K/UL (4.8-10.8) Red Blood Count 4.63 M/UL (4.70-6.10) L Hemoglobin 13.1 G/DL (14.2-18.0) L Hematocrit 43.4 % (42.0-52.0) Mean Corpuscular Volume 94 FL (80-99) Mean Corpuscular Hemoglobin 28.2 PG (27.0-31.0) Mean Corpuscular Hemoglobin Concent 30.1 G/DL (32.0-36.0) L Red Cell Distribution Width 15.3 % (11.6-14.8) H Platelet Count 139 K/UL (150-450) L Mean Platelet Volume 8.6 FL (6.5-10.1) Neutrophils (%) (Auto) 73.8 % (45.0-75.0) Lymphocytes (%) (Auto) 12.1 % (20.0-45.0) L Monocytes (%) (Auto) 6.6 % (1.0-10.0) Eosinophils (%) (Auto) 5.3 % (0.0-3.0) H Basophils (%) (Auto) 2.2 % (0.0-2.0) H Prothrombin Time 24.1 SEC (9.30-11.50) H Prothromb Time International Ratio 2.3 (0.9-1.1) H Sodium Level 140 MMOL/L (136-145) Potassium Level 4.9 MMOL/L (3.5-5.1) Chloride Level 104 MMOL/L (98-107) Carbon Dioxide Level 25 MMOL/L (21-32) Anion Gap 11 mmol/L (5-15) Blood Urea Nitrogen 9 mg/dL (7-18) Creatinine 0.8 MG/DL (0.55-1.30) Estimat Glomerular Filtration Rate > 60 mL/min (>60) Glucose Level 295 MG/DL (74-106) H Calcium Level 8.7 MG/DL (8.5-10.1) Phosphorus Level 2.7 MG/DL (2.5-4.9) Magnesium Level 1.9 MG/DL (1.8-2.4) Total Bilirubin 0.2 MG/DL (0.2-1.0) Aspartate Amino Transf (AST/SGOT) 39 U/L (15-37) H Alanine Aminotransferase (ALT/SGPT) 50 U/L (12-78) Alkaline Phosphatase 71 U/L (46-116) C-Reactive Protein, Quantitative 24.1 mg/dL (0.00-0.90) H Pro-B-Type Natriuretic Peptide 70 pg/mL (0-125) Total Protein 6.6 G/DL (6.4-8.2) Albumin 2.0 G/DL (3.4-5.0) L Globulin 4.6 g/dL Albumin/Globulin Ratio 0.4 (1.0-2.7) L Arterial Blood pH 7.439 (7.350-7.450) Arterial Blood Partial Pressure CO2 37.7 mmHg (35.0-45.0) Arterial Blood Partial Pressure O2 60.8 mmHg (75.0-100.0) L Arterial Blood HCO3 25.0 mmol/L (22.0-26.0) Arterial Blood Oxygen Saturation 91.4 % (95-100) L Arterial Blood Base Excess 1.0 (-2-2) Miguelito Test Positive Current Medications Medications (Trade) Dose Ordered Sig/Johnny Route PRN Reason Start Time Stop Time Status Last Admin Dose Admin Acetaminophen (Tylenol) 650 mg Q6H PRN NG Temp >100.5 01/09/21 09:15 02/08/21 09:14 01/26/21 02:05 Acetaminophen (Tylenol) 650 mg Q6H PRN NG Mild Pain (Pain Scale 1-3) 01/09/21 09:15 02/08/21 09:14 01/27/21 05:10 Albuterol Sulfate (Proventil MDI) 2 puff Q6HRT INH 01/02/21 19:00 04/02/21 18:59 01/27/21 08:17 Benztropine Mesylate (Cogentin) 1 mg EVERY 12 HOURS NG 01/09/21 09:15 02/01/21 09:14 01/27/21 08:15 Chlorhexidine Gluconate (Myranda-Hex 2%) 1 applic DAILY@2000 TOPIC 01/12/21 20:00 04/12/21 19:59 01/26/21 19:42 Dextrose (Dextrose 50%) 25 ml Q30M PRN IV Hypoglycemia 01/06/21 23:45 04/06/21 23:44 Dextrose (Dextrose 50%) 50 ml Q30M PRN IV Hypoglycemia 01/06/21 23:45 04/06/21 23:44 Fentanyl Citrate 250 ml @ 1 mls/hr Q24H PRN IV Agitation 01/26/21 19:00 01/28/21 18:59 01/26/21 23:06 Insulin Aspart (NovoLOG) EVERY 6 HOURS SUBQ 01/09/21 12:00 04/04/21 16:29 01/27/21 05:47 Ipratropium [place] (Atrovent Inh) 1 puffs Q6HRT INH 01/02/21 19:00 02/01/21 18:59 01/27/21 08:17 Lansoprazole (Prevacid) 30 mg DAILY GT 01/24/21 09:00 02/15/21 08:59 01/27/21 08:15 Midazolam HCl 200 ml @ 0 mls/hr Q24H PRN IV Agitation 01/24/21 00:30 01/31/21 00:29 01/27/21 08:05 Midodrine (Pro-Amatine) 10 mg Q8HR ORAL 01/20/21 14:00 04/20/21 13:59 01/27/21 05:10 Norepinephrine Bitartrate 16 mg/ Sodium Chloride 516 ml @ 23.22 mls/ hr Q24H IV 01/25/21 06:45 01/28/21 06:44 01/26/21 22:27 Nystatin (Nystatin) 5 ml QID ORAL 01/25/21 18:00 02/01/21 17:59 01/27/21 08:16 Ondansetron HCl (Zofran) 4 mg Q4H PRN IVP Nausea & Vomiting 01/02/21 08:15 02/01/21 08:14 Piperacillin Sod/ Tazobactam Sod 3.375 gm/Sodium Chloride 110 ml @ 27.5 mls/hr Q8H IVPB 01/25/21 10:00 02/01/21 09:59 01/27/21 10:34 Potassium Chloride (K-Dur) 20 meq TWICE A DAY NG 01/20/21 13:00 04/20/21 12:59 01/26/21 18:00 Quetiapine Fumarate (SEROqueL) 100 mg Q12HR ORAL 01/20/21 15:00 03/06/21 14:59 01/27/21 08:16 Valproic Acid (Depakene) 500 mg Q12HR GT 01/22/21 21:00 02/21/21 20:59 01/27/21 08:15 Vancomycin HCl 300 ml @ 150 mls/hr Q8H IVPB 01/27/21 11:00 02/01/21 02:59 01/27/21 10:34 Vancomycin HCl (Vanco pharmacy to dose) 1 ea DAILY PRN MISC Per rx protocol 01/25/21 08:15 02/24/21 08:14 Warfarin Sodium (Coumadin per pharmacy) 1 ea DAILY PRN MISC Per rx protocol 01/02/21 08:30 02/01/21 08:29 Warfarin Sodium (Warfarin Sod) 3 mg COUMADIN ORAL 01/27/21 17:00 01/27/21 19:00 Corinne Strong M.D. Jan 27, 2021 12:45
[2021-01-27] MEDS: fentaNYL 2500mcg/NS 250ml 250 ML IV PRN (12:48)
--- NOTE | 2021-01-27 15:44 | Internal Med Progress Note ---
Subjective Date of Service: Jan 27, 2021 Physician Name Brown,Vickey Attending Physician Geovanny Bradley MD Current Medications Medications (Trade) Dose Ordered Sig/Johnny Route PRN Reason Start Time Stop Time Status Last Admin Dose Admin Acetaminophen (Tylenol) 650 mg Q6H PRN NG Temp >100.5 01/09/21 09:15 02/08/21 09:14 01/26/21 02:05 Acetaminophen (Tylenol) 650 mg Q6H PRN NG Mild Pain (Pain Scale 1-3) 01/09/21 09:15 02/08/21 09:14 01/27/21 05:10 Albuterol Sulfate (Proventil MDI) 2 puff Q6HRT INH 01/02/21 19:00 04/02/21 18:59 01/27/21 13:44 Benztropine Mesylate (Cogentin) 1 mg EVERY 12 HOURS NG 01/09/21 09:15 02/01/21 09:14 01/27/21 08:15 Chlorhexidine Gluconate (Myranda-Hex 2%) 1 applic DAILY@2000 TOPIC 01/12/21 20:00 04/12/21 19:59 01/26/21 19:42 Dextrose (Dextrose 50%) 25 ml Q30M PRN IV Hypoglycemia 01/06/21 23:45 04/06/21 23:44 Dextrose (Dextrose 50%) 50 ml Q30M PRN IV Hypoglycemia 01/06/21 23:45 04/06/21 23:44 Fentanyl Citrate 250 ml @ 1 mls/hr Q24H PRN IV Agitation 01/26/21 19:00 01/28/21 18:59 01/27/21 12:48 Insulin Aspart (NovoLOG) EVERY 6 HOURS SUBQ 01/09/21 12:00 04/04/21 16:29 01/27/21 12:47 Ipratropium [place] (Atrovent Inh) 1 puffs Q6HRT INH 01/02/21 19:00 02/01/21 18:59 01/27/21 13:45 Lansoprazole (Prevacid) 30 mg DAILY GT 01/24/21 09:00 02/15/21 08:59 01/27/21 08:15 Midazolam HCl 200 ml @ 0 mls/hr Q24H PRN IV Agitation 01/24/21 00:30 01/31/21 00:29 01/27/21 08:05 Midodrine (Pro-Amatine) 10 mg Q8HR ORAL 01/20/21 14:00 04/20/21 13:59 01/27/21 14:13 Norepinephrine Bitartrate 16 mg/ Sodium Chloride 516 ml @ 23.22 mls/ hr Q24H IV 01/25/21 06:45 01/28/21 06:44 01/26/21 22:27 Nystatin (Nystatin) 5 ml QID ORAL 01/25/21 18:00 02/01/21 17:59 01/27/21 12:47 Ondansetron HCl (Zofran) 4 mg Q4H PRN IVP Nausea & Vomiting 01/02/21 08:15 02/01/21 08:14 Piperacillin Sod/ Tazobactam Sod 3.375 gm/Sodium Chloride 110 ml @ 27.5 mls/hr Q8H IVPB 01/25/21 10:00 02/01/21 09:59 01/27/21 10:34 Potassium Chloride (K-Dur) 20 meq TWICE A DAY NG 01/20/21 13:00 04/20/21 12:59 01/26/21 18:00 Quetiapine Fumarate (SEROqueL) 100 mg Q12HR ORAL 01/20/21 15:00 03/06/21 14:59 01/27/21 08:16 Valproic Acid (Depakene) 500 mg Q12HR GT 01/22/21 21:00 02/21/21 20:59 01/27/21 08:15 Vancomycin HCl 300 ml @ 150 mls/hr Q8H IVPB 01/27/21 11:00 02/01/21 02:59 01/27/21 10:34 Vancomycin HCl (Vanco pharmacy to dose) 1 ea DAILY PRN MISC Per rx protocol 01/25/21 08:15 02/24/21 08:14 Warfarin Sodium (Coumadin per pharmacy) 1 ea DAILY PRN MISC Per rx protocol 01/02/21 08:30 02/01/21 08:29 Warfarin Sodium (Warfarin Sod) 3 mg COUMADIN ORAL 01/27/21 17:00 01/27/21 19:00 Allergies: Coded Allergies: No Known Allergies (Unverified , 01/02/21) ROS Limited/Unobtainable: Yes Subjective 60 YO M admitted with shortness of breath. Now respiratory failure. Cover for Int Med-DR Bradley. ICU. Intubated and sedated Objective Last Vital Signs Date Time Temp Pulse Resp B/P (MAP) Pulse Ox O2 Delivery O2 Flow Rate FiO2 01/27/21 13:45 83 22 50 01/27/21 13:00 95/58 (70) 94 01/27/21 12:48 Mechanical Ventilator 01/27/21 08:00 97.2 01/24/21 21:00 65.0 Laboratory Tests Test 01/26/21 18:06 01/27/21 00:56 01/27/21 04:00 01/27/21 08:29 POC Whole Blood Glucose Pending Vancomycin Level Trough 9.2 ug/mL (5.0-12.0) White Blood Count 6.5 K/UL (4.8-10.8) Red Blood Count 4.63 M/UL (4.70-6.10) L Hemoglobin 13.1 G/DL (14.2-18.0) L Hematocrit 43.4 % (42.0-52.0) Mean Corpuscular Volume 94 FL (80-99) Mean Corpuscular Hemoglobin 28.2 PG (27.0-31.0) Mean Corpuscular Hemoglobin Concent 30.1 G/DL (32.0-36.0) L Red Cell Distribution Width 15.3 % (11.6-14.8) H Platelet Count 139 K/UL (150-450) L Mean Platelet Volume 8.6 FL (6.5-10.1) Neutrophils (%) (Auto) 73.8 % (45.0-75.0) Lymphocytes (%) (Auto) 12.1 % (20.0-45.0) L Monocytes (%) (Auto) 6.6 % (1.0-10.0) Eosinophils (%) (Auto) 5.3 % (0.0-3.0) H Basophils (%) (Auto) 2.2 % (0.0-2.0) H Prothrombin Time 24.1 SEC (9.30-11.50) H Prothromb Time International Ratio 2.3 (0.9-1.1) H Sodium Level 140 MMOL/L (136-145) Potassium Level 4.9 MMOL/L (3.5-5.1) Chloride Level 104 MMOL/L (98-107) Carbon Dioxide Level 25 MMOL/L (21-32) Anion Gap 11 mmol/L (5-15) Blood Urea Nitrogen 9 mg/dL (7-18) Creatinine 0.8 MG/DL (0.55-1.30) Estimat Glomerular Filtration Rate > 60 mL/min (>60) Glucose Level 295 MG/DL (74-106) H Calcium Level 8.7 MG/DL (8.5-10.1) Phosphorus Level 2.7 MG/DL (2.5-4.9) Magnesium Level 1.9 MG/DL (1.8-2.4) Total Bilirubin 0.2 MG/DL (0.2-1.0) Aspartate Amino Transf (AST/SGOT) 39 U/L (15-37) H Alanine Aminotransferase (ALT/SGPT) 50 U/L (12-78) Alkaline Phosphatase 71 U/L (46-116) C-Reactive Protein, Quantitative 24.1 mg/dL (0.00-0.90) H Pro-B-Type Natriuretic Peptide 70 pg/mL (0-125) Total Protein 6.6 G/DL (6.4-8.2) Albumin 2.0 G/DL (3.4-5.0) L Globulin 4.6 g/dL Albumin/Globulin Ratio 0.4 (1.0-2.7) L Arterial Blood pH 7.439 (7.350-7.450) Arterial Blood Partial Pressure CO2 37.7 mmHg (35.0-45.0) Arterial Blood Partial Pressure O2 60.8 mmHg (75.0-100.0) L Arterial Blood HCO3 25.0 mmol/L (22.0-26.0) Arterial Blood Oxygen Saturation 91.4 % (95-100) L Arterial Blood Base Excess 1.0 (-2-2) Miguelito Test Positive Microbiology Date/Time Source Procedure Growth Status 01/25/21 12:00 Blood Blood Culture - Preliminary Resulted 01/25/21 11:50 Blood Blood Culture - Preliminary Resulted 01/25/21 10:15 Indwelling Cath Urine Culture - Preliminary Gram Positive Cocci Resulted 01/25/21 10:15 Nasopharynx Coronavirus COVID-19 PCR (SUZETTE) - Final Complete 01/25/21 10:15 Sputum Gram Stain - Final Resulted 01/25/21 10:15 Sputum Sputum Culture Pending Resulted Intake and Output 01/26/21 01/27/21 19:00 07:00 Intake Total 2034.188 ml 1926.35 ml Output Total 1115 ml 960 ml Balance 919.188 ml 966.35 ml Free Water 200 ml IV Total 1144.188 ml 1216.35 ml Tube Feeding 690 ml 480 ml Other 230 ml Output Urine Total 1115 ml 960 ml # Bowel Movements 2 Objective Objective General: awake, responsive , confused. HEENT: NCAT, sclera anicteric, PERRL, EOMI. Neck: Supple, no significant jugular venous distention, Lungs: mech vent; decreased air at the bases, occasional crackles, no Wheeze. Heart: Regular rate and rhythm, normal S1/S2, no murmurs Abdomen: soft, nontender, nondistended. Normoactive bowel sound, obesity. / Rectal: Refused and deferred. Extremities: Left LE: No Cyanosis , clubbing or edema. Right LE AKA. Neuro: A&O x 2, Able to move all extremities Skin: warm, no rashes or lesions. Assessment/Plan Assessment/Plan Assessment/Plan Assessment/Plan (1) Pneumonia due to COVID-19 virus ICD Codes: U07.1 - COVID-19; J12.82 - Pneumonia due to coronavirus disease 2018 SNOMED: 507688050111349593 (2) Acute hypercapnic respiratory failure ICD Codes: J96.02 - Acute respiratory failure with hypercapnia SNOMED: 549806574 (3) Respiratory failure with hypoxia ICD Codes: J96.91 - Respiratory failure, unspecified with hypoxia SNOMED: 41527571197233121 Qualifiers: Qualified Codes: J96.01 - Acute respiratory failure with hypoxia (4) COPD (chronic obstructive pulmonary disease) ICD Codes: J44.9 - Chronic obstructive pulmonary disease, unspecified SNOMED: 18714531 (5) History of deep venous thrombosis or pulmonary embolus SNOMED: 303124015 (6) Obesity ICD Codes: E66.9 - Obesity, unspecified SNOMED: 114257373, 058744035 (7) Essential hypertension ICD Codes: I10 - Essential (primary) hypertension SNOMED: 68780094 (8) Diabetes mellitus type 2 in obese ICD Codes: E11.69 - Type 2 diabetes mellitus with other specified complication; E66.9 - Obesity, unspecified SNOMED: 07856264 (9) History of hydrocephalus ICD Codes: Z86.69 - Personal history of other diseases of the nervous system and sense organs SNOMED: 693504953 (10) Schizophrenia ICD Codes: F20.9 - Schizophrenia, unspecified SNOMED: 02407542 (11) Bipolar 1 disorder ICD Codes: F31.9 - Bipolar disorder, unspecified SNOMED: 295727635 (12) Anticoagulant long-term use ICD Codes: Z79.01 - superintendent terminal (current) use of anticoagulants SNOMED: 558468368 13. Sepsis=gram pos cocci 14. thrush Assessment/Plan: Optimize pulmonary hygiene/mobilize as tolerated Non Rebreather mask>BIPAP>intubated S/P Remdesivir IV S/P Solu-Medrol 40 mg IV twice a day. Abx = zosyn and vanco F/U Cx's Monitor volumes and renal function DVT Px: Coumadin DC IV fluid Start diet Monitor blood glucose level closely. On levophed, fentanyl and propofol drips Pulmonary=Dr Luis ID=Dr Gomez Psych consult=Dr Gallegos Start seroquel at 1/2 previous dose continue nystatin await tracheostomy Vickey Brown MD Jan 27, 2021 15:44
[2021-01-27] MEDS ORDERED: Warfarin Sodium 1mg ORAL SCH (17:00)
[2021-01-27] MEDS: Dyna-Hex 2% Top Sol 2oz TOPIC SCH (19:41)
--- NOTE | 2021-01-27 22:54 | Pulmonology Progress Note ---
Subjective ROS Limited/Unobtainable: Yes Allergies: Coded Allergies: No Known Allergies (Unverified , 01/02/21) Objective Last 24 Hour Vital Signs Date Time Temp Pulse Resp B/P (MAP) Pulse Ox O2 Delivery O2 Flow Rate FiO2 01/27/21 22:00 78 22 105/62 (76) 92 01/27/21 21:38 71 22 50 01/27/21 21:00 72 22 109/65 (80) 93 01/27/21 20:30 74 22 110/70 (83) 93 01/27/21 20:00 50 01/27/21 20:00 78 22 106/65 (79) 93 01/27/21 20:00 Mechanical Ventilator 01/27/21 19:30 80 22 108/65 (79) 93 01/27/21 19:26 81 22 50 01/27/21 19:00 98.0 85 22 103/64 (77) 93 01/27/21 18:00 22 99/55 Mechanical Ventilator 50 01/27/21 18:00 99/55 01/27/21 18:00 84 22 100/60 (73) 93 01/27/21 17:30 84 22 108/63 (78) 93 01/27/21 17:00 22 106/62 Mechanical Ventilator 50 01/27/21 17:00 106/62 01/27/21 17:00 83 22 114/78 (90) 93 01/27/21 16:30 97.8 82 22 106/62 (77) 94 01/27/21 16:00 81 01/27/21 16:00 79 22 114/78 (90) 93 01/27/21 16:00 22 114/78 Mechanical Ventilator 50 01/27/21 16:00 114/78 01/27/21 16:00 Mechanical Ventilator 01/27/21 16:00 50 01/27/21 15:50 75 22 50 01/27/21 15:30 79 22 90/45 (60) 94 01/27/21 15:00 22 100/63 Mechanical Ventilator 50 01/27/21 15:00 100/63 01/27/21 15:00 72 22 100/63 (75) 95 01/27/21 14:30 70 22 101/60 (74) 95 01/27/21 14:00 22 100/65 Mechanical Ventilator 50 01/27/21 14:00 100/65 2/28/21 14:00 74 22 100/65 (77) 95 01/27/21 13:45 83 22 50 01/27/21 13:30 90 22 92/54 (67) 95 01/27/21 13:15 22 100/59 Mechanical Ventilator 50 01/27/21 13:00 22 98/55 Mechanical Ventilator 50 01/27/21 13:00 98/55 01/27/21 13:00 22 98/55 Mechanical Ventilator 50 01/27/21 13:00 83 22 95/58 (70) 94 01/27/21 12:48 22 101/56 Mechanical Ventilator 50 01/27/21 12:45 22 99/59 Mechanical Ventilator 50 01/27/21 12:30 88 22 101/56 (71) 94 01/27/21 12:30 22 101/56 Mechanical Ventilator 50 01/27/21 12:15 22 94/54 Mechanical Ventilator 50 01/27/21 12:00 89 01/27/21 12:00 Mechanical Ventilator 01/27/21 12:00 50 01/27/21 12:00 87 22 90/53 (65) 95 01/27/21 12:00 22 90/53 Mechanical Ventilator 50 01/27/21 12:00 90/53 01/27/21 12:00 22 90/53 Mechanical Ventilator 50 01/27/21 11:45 22 93/52 Mechanical Ventilator 50 01/27/21 11:30 22 99/57 Mechanical Ventilator 50 01/27/21 11:30 90 22 101/56 (71) 95 01/27/21 11:15 22 99/56 Mechanical Ventilator 50 01/27/21 11:10 88 22 50 01/27/21 11:00 22 92/55 Mechanical Ventilator 50 01/27/21 11:00 92/55 01/27/21 11:00 22 92/55 Mechanical Ventilator 50 01/27/21 10:45 22 95/54 Mechanical Ventilator 50 01/27/21 10:30 22 91/55 Mechanical Ventilator 50 01/27/21 10:15 22 98/57 Mechanical Ventilator 50 01/27/21 10:00 90 22 99/57 (71) 95 01/27/21 10:00 22 93/54 Mechanical Ventilator 50 01/27/21 10:00 93/54 01/27/21 10:00 22 93/54 Mechanical Ventilator 50 01/27/21 09:45 22 96/55 Mechanical Ventilator 50 01/27/21 09:30 22 96/57 Mechanical Ventilator 50 01/27/21 09:15 22 98/59 Mechanical Ventilator 50 01/27/21 09:10 88 22 50 01/27/21 09:00 22 98/59 Mechanical Ventilator 50 01/27/21 09:00 98/59 01/27/21 09:00 22 98/59 Mechanical Ventilator 50 01/27/21 09:00 80 22 96/55 (69) 95 01/27/21 08:30 72 22 97/64 (75) 96 01/27/21 08:05 22 97/57 Mechanical Ventilator 50 01/27/21 08:00 50 01/27/21 08:00 22 100/61 Mechanical Ventilator 50 01/27/21 08:00 100/61 01/27/21 08:00 22 100/61 Mechanical Ventilator 50 01/27/21 08:00 97.2 72 22 97/57 (70) 97 01/27/21 08:00 Mechanical Ventilator 01/27/21 08:00 108 01/27/21 07:55 75 22 50 01/27/21 07:30 72 22 101/63 (76) 98 01/27/21 07:00 22 101/63 Mechanical Ventilator 50 01/27/21 07:00 101/63 01/27/21 07:00 22 101/63 Mechanical Ventilator 50 01/27/21 07:00 72 22 101/63 (76) 98 01/27/21 06:45 97/57 01/27/21 06:45 72 22 96/62 (73) 99 01/27/21 06:30 74 22 90/59 (69) 98 01/27/21 06:15 81 22 82/51 (61) 98 01/27/21 06:00 26 114/55 Mechanical Ventilator 50 01/27/21 06:00 96/64 01/27/21 06:00 22 96/64 Mechanical Ventilator 50 01/27/21 06:00 81 22 96/64 (75) 97 01/27/21 05:45 81 22 90/59 (69) 96 01/27/21 05:30 85 22 93/55 (68) 94 01/27/21 05:30 22 96/53 Mechanical Ventilator 50 01/27/21 05:30 22 96/53 Mechanical Ventilator 50 01/27/21 05:21 86 22 96/53 (67) 94 01/27/21 05:15 91 21 89/58 (68) 94 01/27/21 05:15 21 89/58 Mechanical Ventilator 50 01/27/21 05:15 89/58 01/27/21 05:15 21 89/58 Mechanical Ventilator 50 01/27/21 05:00 96 20 90/59 (69) 94 01/27/21 05:00 20 90/59 Mechanical Ventilator 50 01/27/21 05:00 90/59 01/27/21 05:00 20 90/59 Mechanical Ventilator 50 01/27/21 04:45 98 27 107/59 (75) 95 01/27/21 04:30 113 25 147/113 (124) 98 01/27/21 04:30 20 147/113 Mechanical Ventilator 50 01/27/21 04:30 20 147/113 Mechanical Ventilator 50 01/27/21 04:15 106 27 185/158 (167) 97 01/27/21 04:15 27 185/158 Mechanical Ventilator 50 01/27/21 04:15 27 185/158 Mechanical Ventilator 50 01/27/21 04:15 98 27 182/82 (115) 96 01/27/21 04:00 Mechanical Ventilator 01/27/21 04:00 50 01/27/21 04:00 34 169/134 Mechanical Ventilator 50 01/27/21 04:00 169/134 01/27/21 04:00 34 169/134 Mechanical Ventilator 34 01/27/21 04:00 98.3 101 34 169/134 (146) 96 01/27/21 04:00 101 01/27/21 04:00 98.3 101 34 169/134 (146) 96 01/27/21 03:45 110 39 122/83 (96) 100 01/27/21 03:45 39 122/83 Mechanical Ventilator 50 01/27/21 03:45 122/83 01/27/21 03:45 39 122/83 Mechanical Ventilator 50 01/27/21 03:45 110 39 122/83 (96) 100 01/27/21 03:30 101 30 138/88 (105) 96 01/27/21 03:30 30 138/88 Mechanical Ventilator 50 01/27/21 03:30 138/88 01/27/21 03:30 30 138/88 Mechanical Ventilator 50 01/27/21 03:30 101 30 138/88 (105) 96 01/27/21 03:15 99 25 155/84 (107) 95 01/27/21 03:15 25 155/84 Mechanical Ventilator 50 01/27/21 03:15 155/84 01/27/21 03:15 25 155/84 Mechanical Ventilator 50 01/27/21 03:15 99 25 155/84 (107) 95 01/27/21 03:00 95 35 116/99 (105) 95 01/27/21 03:00 35 116/99 Mechanical Ventilator 50 01/27/21 03:00 116/99 01/27/21 03:00 35 116/99 Mechanical Ventilator 50 01/27/21 03:00 95 35 116/99 (105) 95 01/27/21 02:45 100 42 115/68 (84) 97 01/27/21 02:38 95 24 50 01/27/21 02:30 112 44 128/80 (96) 96 01/27/21 02:15 110 26 120/95 (103) 94 01/27/21 02:00 26 114/54 Mechanical Ventilator 50 01/27/21 02:00 114/54 01/27/21 02:00 26 114/54 Mechanical Ventilator 50 01/27/21 02:00 127 26 114/54 (74) 96 01/27/21 01:45 40 123/64 Mechanical Ventilator 50 01/27/21 01:45 127 40 123/64 (83) 96 01/27/21 01:30 36 149/81 Mechanical Ventilator 50 01/27/21 01:30 36 149/81 Mechanical Ventilator 50 01/27/21 01:30 94 36 149/81 (103) 97 01/27/21 01:15 37 140/80 Mechanical Ventilator 50 01/27/21 01:15 100 37 140/80 (100) 99 01/27/21 01:00 85 44 138/70 (92) 95 01/27/21 01:00 44 138/70 Mechanical Ventilator 50 01/27/21 01:00 138/70 01/27/21 01:00 44 138/70 Mechanical Ventilator 50 01/27/21 00:30 95 22 92/53 (66) 94 01/27/21 00:00 84 01/27/21 00:00 50 01/27/21 00:00 22 135/79 Mechanical Ventilator 50 01/27/21 00:00 135/79 01/27/21 00:00 22 135/79 Mechanical Ventilator 50 01/27/21 00:00 Mechanical Ventilator 01/27/21 00:00 96.8 84 22 135/79 (97) 93 01/26/21 23:30 74 22 138/77 (97) 95 01/26/21 23:15 70 23 136/84 (101) 93 01/26/21 23:06 22 130/81 Mechanical Ventilator 50 01/26/21 23:00 130/81 01/26/21 23:00 22 130/81 Mechanical Ventilator 50 01/26/21 23:00 22 130/81 Mechanical Ventilator 50 01/26/21 23:00 70 22 130/81 (97) 95 01/26/21 22:55 66 22 50 Intake and Output 01/26/21 01/27/21 19:00 07:00 Intake Total 2034.188 ml 1926.35 ml Output Total 1115 ml 960 ml Balance 919.188 ml 966.35 ml Free Water 200 ml IV Total 1144.188 ml 1216.35 ml Tube Feeding 690 ml 480 ml Other 230 ml Output Urine Total 1115 ml 960 ml # Bowel Movements 2 Microbiology Date/Time Source Procedure Growth Status 01/25/21 12:00 Blood Blood Culture - Preliminary Resulted 01/25/21 11:50 Blood Blood Culture - Preliminary Resulted 01/25/21 10:15 Indwelling Cath Urine Culture - Preliminary Gram Positive Cocci Resulted 01/25/21 10:15 Nasopharynx Coronavirus COVID-19 PCR ([facility]) - Final Complete 01/25/21 10:15 Sputum Gram Stain - Final Resulted 01/25/21 10:15 Sputum Sputum Culture Pending Resulted Laboratory Tests 01/27/21 00:56: Vancomycin Level Trough 9.2 01/27/21 04:00: White Blood Count 6.5, Red Blood Count 4.63L, Hemoglobin 13.1L, Hematocrit 43.4, Mean Corpuscular Volume 94, Mean Corpuscular Hemoglobin 28.2, Mean Corpuscular Hemoglobin Concent 30.1L, Red Cell Distribution Width 15.3H, Platelet Count 139L , Mean Platelet Volume 8.6, Neutrophils (%) (Auto) 73.8, Lymphocytes (%) (Auto) 12.1L, Monocytes (%) (Auto) 6.6, Eosinophils (%) (Auto) 5.3H, Basophils (%) (Auto) 2.2H, Prothrombin Time 24.1H, Prothromb Time International Ratio 2.3H, Sodium Level 140, Potassium Level 4.9, Chloride Level 104, Carbon Dioxide Level 25, Anion Gap 11, Blood Urea Nitrogen 9, Creatinine 0.8, Estimat Glomerular Filtration Rate > 60, Glucose Level 295H, Calcium Level 8.7, Phosphorus Level 2.7, Magnesium Level 1.9, Total Bilirubin 0.2, Aspartate Amino Transf (AST/SGOT) 39H, Alanine Aminotransferase (ALT/SGPT) 50, Alkaline Phosphatase 71, C-Reactive Protein, Quantitative 24.1H, Pro-B-Type Natriuretic Peptide 70, Total Protein 6.6, Albumin 2.0L, Globulin 4.6, Albumin/Globulin Ratio 0.4L 01/27/21 08:29: Arterial Blood pH 7.439, Arterial Blood Partial Pressure CO2 37.7, Arterial Blood Partial Pressure O2 60.8L, Arterial Blood HCO3 25.0, Arterial Blood Oxygen Saturation 91.4L, Arterial Blood Base Excess 1.0, Miguelito Test Positive Current Medications Medications (Trade) Dose Ordered Sig/Johnny Route PRN Reason Start Time Stop Time Status Last Admin Dose Admin Acetaminophen (Tylenol) 650 mg Q6H PRN NG Temp >100.5 01/09/21 09:15 02/08/21 09:14 01/26/21 02:05 Acetaminophen (Tylenol) 650 mg Q6H PRN NG Mild Pain (Pain Scale 1-3) 01/09/21 09:15 02/08/21 09:14 01/27/21 05:10 Albuterol Sulfate (Proventil MDI) 2 puff Q6HRT INH 01/02/21 19:00 04/02/21 18:59 01/27/21 19:29 Benztropine Mesylate (Cogentin) 1 mg EVERY 12 HOURS NG 01/09/21 09:15 02/01/21 09:14 01/27/21 20:02 Chlorhexidine Gluconate (Myranda-Hex 2%) 1 applic DAILY@2000 TOPIC 01/12/21 20:00 04/12/21 19:59 01/27/21 19:41 Dextrose (Dextrose 50%) 25 ml Q30M PRN IV Hypoglycemia 01/06/21 23:45 04/06/21 23:44 Dextrose (Dextrose 50%) 50 ml Q30M PRN IV Hypoglycemia 01/06/21 23:45 04/06/21 23:44 Fentanyl Citrate 250 ml @ 1 mls/hr Q24H PRN IV Agitation 01/26/21 19:00 01/28/21 18:59 01/27/21 12:48 Insulin Aspart (NovoLOG) EVERY 6 HOURS SUBQ 01/09/21 12:00 04/04/21 16:29 01/27/21 17:29 Ipratropium [place] (Atrovent Inh) 1 puffs Q6HRT INH 01/02/21 19:00 02/01/21 18:59 01/27/21 19:28 Lansoprazole (Prevacid) 30 mg DAILY GT 01/24/21 09:00 02/15/21 08:59 01/27/21 08:15 Midazolam HCl 200 ml @ 0 mls/hr Q24H PRN IV Agitation 01/24/21 00:30 01/31/21 00:29 01/27/21 08:05 Midodrine (Pro-Amatine) 10 mg Q8HR ORAL 01/20/21 14:00 04/20/21 13:59 01/27/21 22:43 Norepinephrine Bitartrate 16 mg/ Sodium Chloride 516 ml @ 23.22 mls/ hr Q24H IV 01/25/21 06:45 01/28/21 06:44 01/26/21 22:27 Nystatin (Nystatin) 5 ml QID ORAL 01/25/21 18:00 02/01/21 17:59 01/27/21 20:02 Ondansetron HCl (Zofran) 4 mg Q4H PRN IVP Nausea & Vomiting 01/02/21 08:15 02/01/21 08:14 Piperacillin Sod/ Tazobactam Sod 3.375 gm/Sodium Chloride 110 ml @ 27.5 mls/hr Q8H IVPB 01/25/21 10:00 02/01/21 09:59 01/27/21 17:15 Potassium Chloride (K-Dur) 20 meq TWICE A DAY NG 01/20/21 13:00 04/20/21 12:59 01/26/21 18:00 Quetiapine Fumarate (SEROqueL) 100 mg Q12HR ORAL 01/20/21 15:00 03/06/21 14:59 01/27/21 20:01 Valproic Acid (Depakene) 500 mg Q12HR GT 01/22/21 21:00 02/21/21 20:59 01/27/21 20:02 Vancomycin HCl 300 ml @ 150 mls/hr Q8H IVPB 01/27/21 11:00 02/01/21 02:59 01/27/21 19:41 Vancomycin HCl ([facility] pharmacy to dose) 1 ea DAILY PRN MISC Per rx protocol 01/25/21 08:15 02/24/21 08:14 Warfarin Sodium (Coumadin per pharmacy) 1 ea DAILY PRN MISC Per rx protocol 01/02/21 08:30 02/01/21 08:29 Assessment/Plan Assessment/Plan Pulmonary CCM Progress Note HPI Patient is a 60 man with prior h/o COPD, CPS/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 ID following, on AB, s/p REM + SM, CXR with bilateral infiltrates - stable. 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, DM2, HTN and hydrocephalus Physical Exam Deferred Covid19 Vital Signs noted Laboratory Tests noted Imaging noted Height (Feet): 5 Height (Inches): 5.00 Weight (Pounds): 233 Medications Medications noted Assessment/Plan Problem List: (1) Pneumonia due to COVID-19 virus ICD Codes: U07.1 - COVID-19; J12.82 - Pneumonia due to coronavirus disease 2018 SNOMED: 055813775375334131 (2) Acute hypercapnic respiratory failure ICD Codes: J96.02 - Acute respiratory failure with hypercapnia SNOMED: 746393008 (3) Respiratory failure with hypoxia ICD Codes: J96.91 - Respiratory failure, unspecified with hypoxia SNOMED: 61157706165995474 Qualifiers: Qualified Codes: J96.01 - Acute respiratory failure with hypoxia (4) COPD (chronic obstructive pulmonary disease) ICD Codes: J44.9 - Chronic obstructive pulmonary disease, unspecified SNOMED: 13507212 (5) History of deep venous thrombosis or pulmonary embolus SNOMED: 622962570 (6) Obesity ICD Codes: E66.9 - Obesity, unspecified SNOMED: 444850903, 468376853 (7) Essential hypertension ICD Codes: I10 - Essential (primary) hypertension SNOMED: 81011118 (8) Diabetes mellitus type 2 in obese ICD Codes: E11.69 - Type 2 diabetes mellitus with other specified complication; E66.9 - Obesity, unspecified SNOMED: 34779720 (9) History of hydrocephalus ICD Codes: Z86.69 - Personal history of other diseases of the nervous system and sense organs SNOMED: 202043449 (10) Schizophrenia ICD Codes: F20.9 - Schizophrenia, unspecified SNOMED: 16449371 (11) Bipolar 1 disorder ICD Codes: F31.9 - Bipolar disorder, unspecified SNOMED: 842062616 (12) Anticoagulant long-term use ICD Codes: Z79.01 - senior living (current) use of anticoagulants SNOMED: 894477694 Assessment/Plan: ACVC - adjust PRN Adjust FiO2 to keep SaO2 > 92% Reduce PEEP as tolerated Pressors PRN Sedation PRN HFA's F/U inflammatory markers and covid labs ID recs REM per ID Wean SM to off - 10QD previously Abx per ID F/U Cx's Monitor volumes and renal function,diuresis per Renal DVT Px: Coumadin TF when not proned FC Will need tracheostomy - did not tolerate weaning previously Anuel Luis MD Jan 27, 2021 22:54
[2021-01-28] VITALS (66 sets, daily range): BP systolic 90–125; BP diastolic 49–77
[2021-01-28] MEDS: fentaNYL 2500mcg/NS 250ml 250 ML IV PRN ×3 (00:19→23:39)
[2021-01-28] MEDS: Ipratropium Bromide Inhaler INH SCH ×4 (01:18→19:37)
[2021-01-28] MEDS: Albuterol 90mcg Inhaler 8gm INH SCH ×4 (01:18→19:37)
[2021-01-28] MEDS: Piperacillin/Tazobactam 3.375 GM in NS 110 ML IVPB SCH ×3 (02:50→18:43)
[2021-01-28] MEDS: Vancomycin 1.5gm/300ml Premix 300 ML IVPB SCH ×3 (03:10→19:00)
[2021-01-28] MEDS: Norepinephrine Bitartrate 16 MG in NS 500 ML IV SCH (03:20)
[2021-01-28 05:26] LABS: BASOPHILS % (AUTO) 3.5 % (0.0-2.0); EOSINOPHILS % (AUTO) 5.4 % (0.0-3.0); HEMATOCRIT 38.2 % (42.0-52.0); HEMOGLOBIN 11.8 G/DL (14.2-18.0); LYMPHOCYTES % (AUTO) 12.8 % (20.0-45.0); MEAN CORPUSCULAR VOLUME 92 FL (80-99); NEUTROPHILS % (AUTO) 70.3 % (45.0-75.0); PLATELET COUNT 151 K/UL (150-450); RED BLOOD COUNT 4.16 M/UL (4.70-6.10); RED CELL DISTRIBUTION WIDTH 15.7 % (11.6-14.8); WHITE BLOOD COUNT 5.5 K/UL (4.8-10.8)
[2021-01-28 05:28] LABS: INR 2.5 (0.9-1.1)
[2021-01-28] MEDS: Midodrine 10mg tab ORAL SCH ×3 (05:29→22:15)
[2021-01-28 05:36] LABS: ANION GAP 11 mmol/L (5-15); BLOOD UREA NITROGEN 6 mg/dL (7-18); CALCIUM 8.5 MG/DL (8.5-10.1); CARBON DIOXIDE 25 MMOL/L (21-32); CHLORIDE 106 MMOL/L (98-107); CREATININE 0.6 MG/DL (0.55-1.30); POTASSIUM 3.7 MMOL/L (3.5-5.1); SODIUM 142 MMOL/L (136-145)
[2021-01-28] MEDS: NovoLOG Insulin Flexpen SUBQ SCH ×3 (06:30→18:43)
[2021-01-28] MEDS ORDERED: NOREPINEPHRINE BITARTRATE IV SCH ×2 (07:00)
[2021-01-28] MEDS ORDERED: SODIUM CHLORIDE IV SCH ×2 (07:00)
--- NOTE | 2021-01-28 09:12 | Infectious Diseases Prog Note ---
Assessment/Plan 60yo M with: Septic SHock Receurrent Gram postiive bacteremia r/o gentry infection -01/25 Bcx / sets GPC clustesr Staph epi bacteremia, m/l skin contaminant 01/10 BCx 12/01 +Staph epi 01/13 BCx Neg 01/25 BCx CoNS 01/01 01/28 BCx - Pend COVID pna, severe Acute hypoxia 01/01 COVID pna >> intubated 01/06- 50% FIo2 Febrile to 103; imporving Normal WBC Elevated AST 51 01/01 Tested positive for COVID at [facility] 01/02 COVID PCR positive 01/02 BCx NTD CXR: Multifocal pna MRSA nares neg 01/06 Intubated in ICU CXR: 1. Appropriately positioned endotracheal and enteric tubes. 2. Stable bilateral airspace disease. 01/07 Resp cx +Yasmine albicans (colonizer) 01/11 CXR: Interval improved bilateral lung aeration. Bibasilar infiltrates/atelectasis. Cr 1.1 HIV screen neg PMH: DM2 COPD HTN SNF resident Plan: Cont Vancomycin #4 and Zosyn #4 Lux Cx CXR Monitor WBCs Monitor temps 01/22/21 steroids #19, on methylpred 20 IV q12 - defer course to Pulm/Primary, now tapering 01/19/21 SP Zosyn #10 01/14 SP vanco IV #1 01/09 SP CTX #7 01/07 SP azithro #5, RDV #5 This institution does not have access to convalescent plasma and only recommended to give in setting of clinical trial Monitor temp curve, hemodynamics Monitor resp status Bcx2 remove central line D/w RN Thank you for this consult. [facility] will continue to follow. Subjective Allergies: Coded Allergies: No Known Allergies (Unverified , 01/02/21) Afebrile Remains on Vent 50% O2 No Leukocytosis On levophed Objective Last 24 Hour Vital Signs Date Time Temp Pulse Resp B/P (MAP) Pulse Ox O2 Delivery O2 Flow Rate FiO2 01/28/21 08:30 97.5 65 22 114/75 (88) 96 01/28/21 08:00 65 01/28/21 08:00 65 22 119/74 (89) 96 01/28/21 07:48 74 22 50 01/28/21 07:30 65 22 107/67 (80) 96 01/28/21 07:00 22 105/62 Mechanical Ventilator 50 01/28/21 07:00 82 22 105/60 (75) 96 01/28/21 06:00 22 104/55 Mechanical Ventilator 50 01/28/21 06:00 104/55 01/28/21 06:00 81 22 106/62 (77) 95 01/28/21 05:31 77 22 50 01/28/21 05:00 67 22 111/76 (88) 96 01/28/21 05:00 22 103/61 Mechanical Ventilator 50 01/28/21 05:00 103/61 01/28/21 04:00 98.7 76 22 107/68 (81) 94 01/28/21 04:00 22 107/68 Mechanical Ventilator 50 01/28/21 04:00 107/68 01/28/21 04:00 50 01/28/21 04:00 Mechanical Ventilator 01/28/21 03:29 74 01/28/21 03:23 86 23 50 01/28/21 03:20 109/69 01/28/21 03:00 69 22 110/70 (83) 93 01/28/21 03:00 22 108/66 Mechanical Ventilator 50 01/28/21 03:00 108/66 01/28/21 02:00 22 104/65 Mechanical Ventilator 50 01/28/21 02:00 104/65 01/28/21 02:00 76 22 101/61 (74) 93 01/28/21 01:18 79 22 50 01/28/21 01:00 22 96/59 Mechanical Ventilator 50 01/28/21 01:00 96/59 01/28/21 01:00 78 22 96/59 (71) 93 01/28/21 00:19 22 106/61 Mechanical Ventilator 50 01/28/21 00:00 50 01/28/21 00:00 22 106/61 Mechanical Ventilator 50 01/28/21 00:00 106/61 01/28/21 00:00 Mechanical Ventilator 01/28/21 00:00 98.2 81 22 99/53 (68) 93 01/27/21 23:18 84 01/27/21 23:07 87 22 50 01/27/21 23:00 87 22 100/55 (70) 92 01/27/21 23:00 22 105/61 Mechanical Ventilator 50 01/27/21 23:00 105/61 01/27/21 22:00 22 104/65 Mechanical Ventilator 50 01/27/21 22:00 104/65 01/27/21 22:00 78 22 105/62 (76) 92 01/27/21 21:38 71 22 50 01/27/21 21:00 72 22 109/65 (80) 93 01/27/21 21:00 22 106/68 Mechanical Ventilator 50 01/27/21 21:00 106/68 01/27/21 20:30 74 22 110/70 (83) 93 01/27/21 20:00 50 01/27/21 20:00 78 22 106/65 (79) 93 01/27/21 20:00 Mechanical Ventilator 01/27/21 20:00 22 106/65 Mechanical Ventilator 50 01/27/21 20:00 106/65 01/27/21 19:54 78 01/27/21 19:30 80 22 108/65 (79) 93 01/27/21 19:26 81 22 50 01/27/21 19:00 98.0 85 22 103/64 (77) 93 01/27/21 19:00 22 101/59 Mechanical Ventilator 50 01/27/21 19:00 101/59 01/27/21 18:00 22 99/55 Mechanical Ventilator 50 01/27/21 18:00 99/55 01/27/21 18:00 84 22 100/60 (73) 93 01/27/21 17:30 84 22 108/63 (78) 93 01/27/21 17:00 22 106/62 Mechanical Ventilator 50 01/27/21 17:00 106/62 01/27/21 17:00 83 22 114/78 (90) 93 01/27/21 16:30 97.8 82 22 106/62 (77) 94 01/27/21 16:00 81 01/27/21 16:00 79 22 114/78 (90) 93 01/27/21 16:00 22 114/78 Mechanical Ventilator 50 01/27/21 16:00 114/78 01/27/21 16:00 Mechanical Ventilator 01/27/21 16:00 50 01/27/21 15:50 75 22 50 01/27/21 15:30 79 22 90/45 (60) 94 01/27/21 15:00 22 100/63 Mechanical Ventilator 50 01/27/21 15:00 100/63 01/27/21 15:00 72 22 100/63 (75) 95 01/27/21 14:30 70 22 101/60 (74) 95 01/27/21 14:00 22 100/65 Mechanical Ventilator 50 01/27/21 14:00 100/65 01/27/21 14:00 74 22 100/65 (77) 95 01/27/21 13:45 83 22 50 01/27/21 13:30 90 22 92/54 (67) 95 01/27/21 13:15 22 100/59 Mechanical Ventilator 50 01/27/21 13:00 22 98/55 Mechanical Ventilator 50 01/27/21 13:00 98/55 01/27/21 13:00 22 98/55 Mechanical Ventilator 50 01/27/21 13:00 83 22 95/58 (70) 94 01/27/21 12:48 22 101/56 Mechanical Ventilator 50 01/27/21 12:45 22 99/59 Mechanical Ventilator 50 01/27/21 12:30 88 22 101/56 (71) 94 01/27/21 12:30 22 101/56 Mechanical Ventilator 50 01/27/21 12:15 22 94/54 Mechanical Ventilator 50 01/27/21 12:00 89 01/27/21 12:00 Mechanical Ventilator 01/27/21 12:00 50 01/27/21 12:00 87 22 90/53 (65) 95 01/27/21 12:00 22 90/53 Mechanical Ventilator 50 01/27/21 12:00 90/53 01/27/21 12:00 22 90/53 Mechanical Ventilator 50 01/27/21 11:45 22 93/52 Mechanical Ventilator 50 01/27/21 11:30 22 99/57 Mechanical Ventilator 50 01/27/21 11:30 90 22 101/56 (71) 95 01/27/21 11:15 22 99/56 Mechanical Ventilator 50 01/27/21 11:10 88 22 50 01/27/21 11:00 22 92/55 Mechanical Ventilator 50 01/27/21 11:00 92/55 01/27/21 11:00 22 92/55 Mechanical Ventilator 50 01/27/21 10:45 22 95/54 Mechanical Ventilator 50 01/27/21 10:30 22 91/55 Mechanical Ventilator 50 01/27/21 10:15 22 98/57 Mechanical Ventilator 50 01/27/21 10:00 90 22 99/57 (71) 95 01/27/21 10:00 22 93/54 Mechanical Ventilator 50 01/27/21 10:00 93/54 01/27/21 10:00 22 93/54 Mechanical Ventilator 50 01/27/21 09:45 22 96/55 Mechanical Ventilator 50 01/27/21 09:30 22 96/57 Mechanical Ventilator 50 01/27/21 09:15 22 98/59 Mechanical Ventilator 50 01/27/21 09:10 88 22 50 Height (Feet): 5 Height (Inches): 5.00 Weight (Pounds): 233 Gen: NAD on Vent 50% O2 satting well HEENT: NCAT, ETT Pulm: BL chest rise, RRR Ext: No c/c/e Skin: No visible rashes Neuro: Not following Microbiology Date/Time Source Procedure Growth Status 01/25/21 12:00 Blood Blood Culture - Preliminary Staphylococcus Sp Coag Neg Resulted 01/25/21 11:50 Blood Blood Culture - Preliminary Staphylococcus Sp Coag Neg Resulted 01/25/21 10:15 Indwelling Cath Urine Culture - Preliminary Strep Species, Gamma-Hemolytic Yeast Species Resulted 01/25/21 10:15 Nasopharynx Coronavirus COVID-19 PCR (SU[facility]ETTE) - Final Complete 01/25/21 10:15 Sputum Gram Stain - Final Resulted 01/25/21 10:15 Sputum Culture - Preliminary Streptococcus Group B YEAST Usual Respiratory Cristy Resulted Laboratory Tests Test 01/27/21 17:23 01/28/21 03:41 POC Whole Blood Glucose Pending White Blood Count 5.5 K/UL (4.8-10.8) Red Blood Count 4.16 M/UL (4.70-6.10) L Hemoglobin 11.8 G/DL (14.2-18.0) L Hematocrit 38.2 % (42.0-52.0) L Mean Corpuscular Volume 92 FL (80-99) Mean Corpuscular Hemoglobin 28.3 PG (27.0-31.0) Mean Corpuscular Hemoglobin Concent 30.8 G/DL (32.0-36.0) L Red Cell Distribution Width 15.7 % (11.6-14.8) H Platelet Count 151 K/UL (150-450) Mean Platelet Volume 8.6 FL (6.5-10.1) Neutrophils (%) (Auto) 70.3 % (45.0-75.0) Lymphocytes (%) (Auto) 12.8 % (20.0-45.0) L Monocytes (%) (Auto) 8.0 % (1.0-10.0) Eosinophils (%) (Auto) 5.4 % (0.0-3.0) H Basophils (%) (Auto) 3.5 % (0.0-2.0) H Prothrombin Time 25.3 SEC (9.30-11.50) H Prothromb Time International Ratio 2.5 (0.9-1.1) H Sodium Level 142 MMOL/L (136-145) Potassium Level 3.7 MMOL/L (3.5-5.1) Chloride Level 106 MMOL/L (98-107) Carbon Dioxide Level 25 MMOL/L (21-32) Anion Gap 11 mmol/L (5-15) Blood Urea Nitrogen 6 mg/dL (7-18) L Creatinine 0.6 MG/DL (0.55-1.30) Estimat Glomerular Filtration Rate > 60 mL/min (>60) Glucose Level 242 MG/DL (74-106) H Calcium Level 8.5 MG/DL (8.5-10.1) Current Medications Medications (Trade) Dose Ordered Sig/Johnny Route PRN Reason Start Time Stop Time Status Last Admin Dose Admin Acetaminophen (Tylenol) 650 mg Q6H PRN NG Temp >100.5 01/09/21 09:15 02/08/21 09:14 01/26/21 02:05 Acetaminophen (Tylenol) 650 mg Q6H PRN NG Mild Pain (Pain Scale 1-3) 01/09/21 09:15 02/08/21 09:14 01/27/21 05:10 Albuterol Sulfate (Proventil MDI) 2 puff Q6HRT INH 01/02/21 19:00 04/02/21 18:59 01/28/21 07:47 Benztropine Mesylate (Cogentin) 1 mg EVERY 12 HOURS NG 01/09/21 09:15 02/01/21 09:14 01/27/21 20:02 Chlorhexidine Gluconate (Myranda-Hex 2%) 1 applic DAILY@2000 TOPIC 01/12/21 20:00 04/12/21 19:59 01/27/21 19:41 Dextrose (Dextrose 50%) 25 ml Q30M PRN IV Hypoglycemia 01/06/21 23:45 04/06/21 23:44 Dextrose (Dextrose 50%) 50 ml Q30M PRN IV Hypoglycemia 01/06/21 23:45 04/06/21 23:44 Fentanyl Citrate 250 ml @ 1 mls/hr Q24H PRN IV Agitation 01/26/21 19:00 01/28/21 18:59 01/28/21 00:19 Insulin Aspart (NovoLOG) EVERY 6 HOURS SUBQ 01/09/21 12:00 04/04/21 16:29 01/28/21 06:30 Ipratropium [place] (Atrovent Inh) 1 puffs Q6HRT INH 01/02/21 19:00 02/01/21 18:59 01/28/21 07:47 Lansoprazole (Prevacid) 30 mg DAILY GT 01/24/21 09:00 02/15/21 08:59 01/27/21 08:15 Midazolam HCl 200 ml @ 0 mls/hr Q24H PRN IV Agitation 01/24/21 00:30 01/31/21 00:29 01/27/21 08:05 Midodrine (Pro-Amatine) 10 mg Q8HR ORAL 01/20/21 14:00 04/20/21 13:59 01/28/21 05:29 Norepinephrine Bitartrate 16 mg/ Sodium Chloride 516 ml @ 0 mls/hr Q24H IV 01/28/21 07:00 01/31/21 06:59 UNV Nystatin (Nystatin) 5 ml QID ORAL 01/25/21 18:00 02/01/21 17:59 01/27/21 20:02 Ondansetron HCl (Zofran) 4 mg Q4H PRN IVP Nausea & Vomiting 01/02/21 08:15 02/01/21 08:14 Piperacillin Sod/ Tazobactam Sod 3.375 gm/Sodium Chloride 110 ml @ 27.5 mls/hr Q8H IVPB 01/25/21 10:00 02/01/21 09:59 01/28/21 02:50 Potassium Chloride (K-Dur) 20 meq TWICE A DAY NG 01/20/21 13:00 04/20/21 12:59 01/26/21 18:00 Quetiapine Fumarate (SEROqueL) 100 mg Q12HR ORAL 01/20/21 15:00 03/06/21 14:59 01/27/21 20:01 Valproic Acid (Depakene) 500 mg Q12HR GT 01/22/21 21:00 02/21/21 20:59 01/27/21 20:02 Vancomycin HCl 300 ml @ 150 mls/hr Q8H IVPB 01/27/21 11:00 02/01/21 02:59 01/28/21 03:10 Vancomycin HCl ([facility] to dose) 1 ea DAILY PRN MISC Per rx protocol 01/25/21 08:15 02/24/21 08:14 Warfarin Sodium (Coumadin per pharmacy) 1 ea DAILY PRN MISC Per rx protocol 01/02/21 08:30 02/01/21 08:29 Anuel Crespo MD Jan 28, 2021 09:12
[2021-01-28] MEDS: Valproic Acid 250mg/5ml Liquid GT SCH ×2 (10:09→20:34)
[2021-01-28] MEDS: Nystatin Susp 500,000 units/5ml ORAL SCH ×4 (10:09→20:33)
[2021-01-28] MEDS: Benztropine 1mg tab NG SCH ×2 (10:10→20:34)
[2021-01-28 10:17] LABS: ALANINE AMINOTRANSFERASE 35 U/L (12-78); ALBUMIN 1.8 G/DL (3.4-5.0); ALKALINE PHOSPHATASE 80 U/L (46-116); ASPARTATE AMINO TRANSFERASE 22 U/L (15-37); BILIRUBIN,DIRECT < 0.1 MG/DL (0.0-0.3); BILIRUBIN,TOTAL 0.3 MG/DL (0.2-1.0)
[2021-01-28] MEDS ORDERED: fentaNYL 2500mcg/NS 250ml 250 ML IV PRN (11:45)
--- NOTE | 2021-01-28 11:51 | Nephrology Progress Note ---
Assessment/Plan Problem List: (1) Hyperkalemia (2) Pneumonia due to COVID-19 virus (3) Respiratory failure with hypoxia (4) Obesity (5) Schizophrenia (6) DMII (diabetes mellitus, type 2) Assessment Hyperkalemia Stable renal parameters Hyperglycemia Covid pneumonia due to COVID-19 virus Acute respiratory failure with hypoxia requiring mechanical ventilation History of COPD History of DVT, pulmonary emboli Obese Hypertension History of diabetes Psych condition, schizophrenia, bipolar disease Plan January 28: Status quo. Labs and medication list reviewed. K-Phos supplement ordered. Continue per current treatment plan. January 27: Patient remains full code. Intubated on ventilator. FiO2 50%. Labs reviewed. Renal parameters stable. Medication list reviewed. January 26: Full code. Intubated. On ventilator. FiO2 65%. No CHEM panel drawn today. Continue per consultants. January 25: Status unchanged. Blood pressure low. Remains full code on ventilator. Continue per consultants. Medication list reviewed. INR is 3.8 today. January 24: Status quo. Intubated on ventilator and full code. Labs reviewed. Medication list reviewed. Continue per consultants. January 23: Patient on prone position. IntubatedFiO2 65%. Renal parameters stable. Continue per consultants. Date hospitalization. Possible trach?. January 22: FiO2 50%. Prone position. Labs reviewed. Stable from renal standpoint of view. Continue per consultants. January 21: Full code. Intubated on ventilator. FiO2 40%. Labs reviewed. Renal parameters stable. Continue per consultants. January 20: Status unchanged. Full code. On ventilator. Chest x-ray reviewed. IV fluid discontinued. Potassium supplement given. 1 dose of Lasix given. Albumin bolus given. Midodrine started. Will monitor renal parameters and electrolytes. Discussed with JOHAN Mohamud. January 19: Labs reviewed. Renal parameters stable. Remains full code intubated on ventilator. FiO2 50%. Continue per consultants. January 18: Full code. Intubated. On ventilator. FiO2 down to 35%. No labs drawn today. Continue to monitor renal parameters and electrolytes. January 17: Full code. Intubated on ventilator. FiO2 remains at 60%. Labs reviewed. Renal parameters stable. January 16: Full code. Intubated. Labs reviewed. Renal parameters stable. FiO2 60%. Continue per consultants. January 15: Patient remains intubated and full code. Labs reviewed. Stable renal parameters. January 14: Patient full code. Intubated on ventilator. On prone position until 5 PM. Labs reviewed. Stable from renal standpoint of view. January 13: Labs reviewed. Renal parameters stable. Continue per consultants. Patient remain full code and intubated on ventilator. January 12: Labs reviewed. Renal parameters stable. Patient remains full code. Remains intubated on ventilator and on prone position. Continue per consultants. January 11: Labs reviewed. Renal parameters stable. Continue per consultants. January 10: Labs reviewed. Renal parameters stable. Continue per consultants. Change IV to half-normal saline Kayexalate via NG tube for high potassium Monitor electrolytes and renal parameters Per orders, per consultants Subjective ROS Limited/Unobtainable: Yes Objective Objective Last 24 Hour Vital Signs Date Time Temp Pulse Resp B/P (MAP) Pulse Ox O2 Delivery O2 Flow Rate FiO2 01/28/21 11:00 85 22 96/50 (65) 97 01/28/21 10:00 66 22 118/74 (89) 96 01/28/21 09:30 69 22 125/77 (93) 96 01/28/21 09:28 64 22 50 01/28/21 09:00 65 22 118/71 (87) 97 01/28/21 08:30 97.5 65 22 114/75 (88) 96 01/28/21 08:00 65 01/28/21 08:00 50 01/28/21 08:00 65 22 119/74 (89) 96 01/28/21 07:48 74 22 50 01/28/21 07:30 65 22 107/67 (80) 96 01/28/21 07:00 22 105/62 Mechanical Ventilator 50 01/28/21 07:00 82 22 105/60 (75) 96 01/28/21 06:00 22 104/55 Mechanical Ventilator 50 01/28/21 06:00 104/55 01/28/21 06:00 81 22 106/62 (77) 95 01/28/21 05:31 77 22 50 01/28/21 05:00 67 22 111/76 (88) 96 01/28/21 05:00 22 103/61 Mechanical Ventilator 50 01/28/21 05:00 103/61 01/28/21 04:00 98.7 76 22 107/68 (81) 94 01/28/21 04:00 22 107/68 Mechanical Ventilator 50 01/28/21 04:00 107/68 01/28/21 04:00 50 01/28/21 04:00 Mechanical Ventilator 01/28/21 03:29 74 01/28/21 03:23 86 23 50 01/28/21 03:20 109/69 01/28/21 03:00 69 22 110/70 (83) 93 01/28/21 03:00 22 108/66 Mechanical Ventilator 50 01/28/21 03:00 108/66 01/28/21 02:00 22 104/65 Mechanical Ventilator 50 01/28/21 02:00 104/65 01/28/21 02:00 76 22 101/61 (74) 93 01/28/21 01:18 79 22 50 01/28/21 01:00 22 96/59 Mechanical Ventilator 50 01/28/21 01:00 96/59 01/28/21 01:00 78 22 96/59 (71) 93 01/28/21 00:19 22 106/61 Mechanical Ventilator 50 01/28/21 00:00 50 01/28/21 00:00 22 106/61 Mechanical Ventilator 50 01/28/21 00:00 106/61 01/28/21 00:00 Mechanical Ventilator 01/28/21 00:00 98.2 81 22 99/53 (68) 93 01/27/21 23:18 84 01/27/21 23:07 87 22 50 01/27/21 23:00 87 22 100/55 (70) 92 01/27/21 23:00 22 105/61 Mechanical Ventilator 50 01/27/21 23:00 105/61 01/27/21 22:00 22 104/65 Mechanical Ventilator 50 01/27/21 22:00 104/65 01/27/21 22:00 78 22 105/62 (76) 92 01/27/21 21:38 71 22 50 01/27/21 21:00 72 22 109/65 (80) 93 01/27/21 21:00 22 106/68 Mechanical Ventilator 50 01/27/21 21:00 106/68 01/27/21 20:30 74 22 110/70 (83) 93 01/27/21 20:00 50 01/27/21 20:00 78 22 106/65 (79) 93 01/27/21 20:00 Mechanical Ventilator 01/27/21 20:00 22 106/65 Mechanical Ventilator 50 01/27/21 20:00 106/65 01/27/21 19:54 78 01/27/21 19:30 80 22 108/65 (79) 93 01/27/21 19:26 81 22 50 01/27/21 19:00 98.0 85 22 103/64 (77) 93 01/27/21 19:00 22 101/59 Mechanical Ventilator 50 01/27/21 19:00 101/59 01/27/21 18:00 22 99/55 Mechanical Ventilator 50 01/27/21 18:00 99/55 01/27/21 18:00 84 22 100/60 (73) 93 01/27/21 17:30 84 22 108/63 (78) 93 01/27/21 17:00 22 106/62 Mechanical Ventilator 50 01/27/21 17:00 106/62 01/27/21 17:00 83 22 114/78 (90) 93 01/27/21 16:30 97.8 82 22 106/62 (77) 94 01/27/21 16:00 81 01/27/21 16:00 79 22 114/78 (90) 93 01/27/21 16:00 22 114/78 Mechanical Ventilator 50 01/27/21 16:00 114/78 01/27/21 16:00 Mechanical Ventilator 01/27/21 16:00 50 01/27/21 15:50 75 22 50 01/27/21 15:30 79 22 90/45 (60) 94 01/27/21 15:00 22 100/63 Mechanical Ventilator 50 01/27/21 15:00 100/63 01/27/21 15:00 72 22 100/63 (75) 95 01/27/21 14:30 70 22 101/60 (74) 95 01/27/21 14:00 22 100/65 Mechanical Ventilator 50 01/27/21 14:00 100/65 01/27/21 14:00 74 22 100/65 (77) 95 01/27/21 13:45 83 22 50 01/27/21 13:30 90 22 92/54 (67) 95 01/27/21 13:15 22 100/59 Mechanical Ventilator 50 01/27/21 13:00 22 98/55 Mechanical Ventilator 50 01/27/21 13:00 98/55 01/27/21 13:00 22 98/55 Mechanical Ventilator 50 01/27/21 13:00 83 22 95/58 (70) 94 01/27/21 12:48 22 101/56 Mechanical Ventilator 50 01/27/21 12:45 22 99/59 Mechanical Ventilator 50 01/27/21 12:30 88 22 101/56 (71) 94 01/27/21 12:30 22 101/56 Mechanical Ventilator 50 01/27/21 12:15 22 94/54 Mechanical Ventilator 50 01/27/21 12:00 89 01/27/21 12:00 Mechanical Ventilator 01/27/21 12:00 50 01/27/21 12:00 87 22 90/53 (65) 95 01/27/21 12:00 22 90/53 Mechanical Ventilator 50 01/27/21 12:00 90/53 01/27/21 12:00 22 90/53 Mechanical Ventilator 50 Intake and Output 01/27/21 01/28/21 19:00 07:00 Intake Total 1205.51 ml 1544.72286 ml Output Total 960 ml 960 ml Balance 245.51 ml 584.88862 ml Free Water 130 ml 60 ml IV Total 1015.51 ml 1214.67544 ml Tube Feeding 60 ml 270 ml Output Urine Total 960 ml 960 ml Current Medications Medications (Trade) Dose Ordered Sig/Johnny Route PRN Reason Start Time Stop Time Status Last Admin Dose Admin Acetaminophen (Tylenol) 650 mg Q6H PRN NG Temp >100.5 01/09/21 09:15 02/08/21 09:14 01/26/21 02:05 Acetaminophen (Tylenol) 650 mg Q6H PRN NG Mild Pain (Pain Scale 1-3) 01/09/21 09:15 02/08/21 09:14 01/27/21 05:10 Albuterol Sulfate (Proventil MDI) 2 puff Q6HRT INH 01/02/21 19:00 04/02/21 18:59 01/28/21 07:47 Benztropine Mesylate (Cogentin) 1 mg EVERY 12 HOURS NG 01/09/21 09:15 02/01/21 09:14 01/28/21 10:10 Chlorhexidine Gluconate (Myranda-Hex 2%) 1 applic DAILY@2000 TOPIC 01/12/21 20:00 04/12/21 19:59 01/27/21 19:41 Dextrose (Dextrose 50%) 25 ml Q30M PRN IV Hypoglycemia 01/06/21 23:45 04/06/21 23:44 Dextrose (Dextrose 50%) 50 ml Q30M PRN IV Hypoglycemia 01/06/21 23:45 04/06/21 23:44 Fentanyl Citrate 250 ml @ 1 mls/hr Q24H PRN IV Agitation 01/26/21 19:00 01/28/21 18:59 01/28/21 00:19 Insulin Aspart (NovoLOG) EVERY 6 HOURS SUBQ 01/09/21 12:00 04/04/21 16:29 01/28/21 06:30 Ipratropium [place] (Atrovent Inh) 1 puffs Q6HRT INH 01/02/21 19:00 02/01/21 18:59 01/28/21 07:47 Lansoprazole (Prevacid) 30 mg DAILY GT 01/24/21 09:00 02/15/21 08:59 01/28/21 10:09 Midazolam HCl 200 ml @ 0 mls/hr Q24H PRN IV Agitation 01/24/21 00:30 01/31/21 00:29 01/27/21 08:05 Midodrine (Pro-Amatine) 10 mg Q8HR ORAL 01/20/21 14:00 04/20/21 13:59 01/28/21 05:29 Norepinephrine Bitartrate 8 mg/ Dextrose 258 ml @ 0 mls/hr Q24H IV 01/28/21 20:00 01/31/21 19:59 Nystatin (Nystatin) 5 ml QID ORAL 01/25/21 18:00 02/01/21 17:59 01/28/21 10:09 Ondansetron HCl (Zofran) 4 mg Q4H PRN IVP Nausea & Vomiting 01/02/21 08:15 02/01/21 08:14 Piperacillin Sod/ Tazobactam Sod 3.375 gm/Sodium Chloride 110 ml @ 27.5 mls/hr Q8H IVPB 01/25/21 10:00 02/01/21 09:59 01/28/21 10:10 Potassium Phosphate 20 mm/ Sodium Chloride 281.6667 ml @ 46.944 m... ONCE ONCE IV 01/28/21 11:45 01/28/21 17:44 UNV Potassium Chloride (K-Dur) 20 meq TWICE A DAY NG 01/20/21 13:00 04/20/21 12:59 01/28/21 10:10 Quetiapine Fumarate (SEROqueL) 100 mg Q12HR ORAL 01/20/21 15:00 03/06/21 14:59 01/28/21 10:10 Valproic Acid (Depakene) 500 mg Q12HR GT 01/22/21 21:00 02/21/21 20:59 01/28/21 10:09 Vancomycin HCl 300 ml @ 150 mls/hr Q8H IVPB 01/27/21 11:00 02/01/21 02:59 01/28/21 03:10 Vancomycin HCl ([facility] pharmacy to dose) 1 ea DAILY PRN MISC Per rx protocol 01/25/21 08:15 02/24/21 08:14 Warfarin Sodium (Coumadin per pharmacy) 1 ea DAILY PRN MISC Per rx protocol 01/02/21 08:30 02/01/21 08:29 Warfarin Sodium (Warfarin Sod) 3 mg ONCE ORAL 01/28/21 17:00 01/28/21 20:00 Laboratory Tests 01/27/21 17:23: POC Whole Blood Glucose [Pending] 01/28/21 03:41: White Blood Count 5.5, Red Blood Count 4.16L, Hemoglobin 11.8L, Hematocrit 38.2L , Mean Corpuscular Volume 92, Mean Corpuscular Hemoglobin 28.3, Mean Corpuscular Hemoglobin Concent 30.8L, Red Cell Distribution Width 15.7H, Platelet Count 151, Mean Platelet Volume 8.6, Neutrophils (%) (Auto) 70.3, Lymphocytes (%) (Auto) 12.8L, Monocytes (%) (Auto) 8.0, Eosinophils (%) (Auto) 5.4H, Basophils ( %) (Auto) 3.5H, Prothrombin Time 25.3H, Prothromb Time International Ratio 2.5H, Sodium Level 142, Potassium Level 3.7, Chloride Level 106, Carbon Dioxide Level 25, Anion Gap 11, Blood Urea Nitrogen 6L, Creatinine 0.6, Estimat Glomerular Filtration Rate > 60, Glucose Level 242H, Calcium Level 8.5, Phosphorus Level 2.0L, Magnesium Level 1.9, Total Bilirubin 0.3, Direct Bilirubin < 0.1, Aspartate Amino Transf (AST/SGOT) 22, Alanine Aminotransferase (ALT/SGPT) 35, Alkaline Phosphatase 80, Total Protein 6.1L, Albumin 1.8L Height (Feet): 5 Height (Inches): 5.00 Weight (Pounds): 233 General Appearance: no apparent distress EENT: other - Intubated on ventilator Cardiovascular: normal rate Respiratory/Chest: decreased breath sounds Abdomen: distended Avi Frye MD Jan 28, 2021 11:51
--- NOTE | 2021-01-28 12:40 | Surgery Progress Note ---
Surgery Progress Note Subjective Additional Comments still on levophed weaning but not ready for trach labs noted Objective Last 24 Hour Vital Signs Date Time Temp Pulse Resp B/P (MAP) Pulse Ox O2 Delivery O2 Flow Rate FiO2 01/28/21 12:08 22 95/57 Mechanical Ventilator 40 01/28/21 11:47 78 22 40 01/28/21 11:00 85 22 96/50 (65) 97 01/28/21 10:00 66 22 118/74 (89) 96 01/28/21 09:30 69 22 125/77 (93) 96 01/28/21 09:28 64 22 50 01/28/21 09:00 65 22 118/71 (87) 97 01/28/21 08:30 97.5 65 22 114/75 (88) 96 01/28/21 08:00 65 01/28/21 08:00 50 01/28/21 08:00 65 22 119/74 (89) 96 01/28/21 07:48 74 22 50 01/28/21 07:30 65 22 107/67 (80) 96 01/28/21 07:00 22 105/62 Mechanical Ventilator 50 01/28/21 07:00 82 22 105/60 (75) 96 01/28/21 06:00 22 104/55 Mechanical Ventilator 50 01/28/21 06:00 104/55 01/28/21 06:00 81 22 106/62 (77) 95 01/28/21 05:31 77 22 50 01/28/21 05:00 67 22 111/76 (88) 96 01/28/21 05:00 22 103/61 Mechanical Ventilator 50 01/28/21 05:00 103/61 01/28/21 04:00 98.7 76 22 107/68 (81) 94 01/28/21 04:00 22 107/68 Mechanical Ventilator 50 01/28/21 04:00 107/68 01/28/21 04:00 50 01/28/21 04:00 Mechanical Ventilator 01/28/21 03:29 74 01/28/21 03:23 86 23 50 01/28/21 03:20 109/69 01/28/21 03:00 69 22 110/70 (83) 93 01/28/21 03:00 22 108/66 Mechanical Ventilator 50 01/28/21 03:00 108/66 01/28/21 02:00 22 104/65 Mechanical Ventilator 50 01/28/21 02:00 104/65 01/28/21 02:00 76 22 101/61 (74) 93 01/28/21 01:18 79 22 50 01/28/21 01:00 22 96/59 Mechanical Ventilator 50 01/28/21 01:00 96/59 01/28/21 01:00 78 22 96/59 (71) 93 01/28/21 00:19 22 106/61 Mechanical Ventilator 50 01/28/21 00:00 50 01/28/21 00:00 22 106/61 Mechanical Ventilator 50 01/28/21 00:00 106/61 01/28/21 00:00 Mechanical Ventilator 01/28/21 00:00 98.2 81 22 99/53 (68) 93 01/27/21 23:18 84 01/27/21 23:07 87 22 50 01/27/21 23:00 87 22 100/55 (70) 92 01/27/21 23:00 22 105/61 Mechanical Ventilator 50 01/27/21 23:00 105/61 01/27/21 22:00 22 104/65 Mechanical Ventilator 50 01/27/21 22:00 104/65 01/27/21 22:00 78 22 105/62 (76) 92 01/27/21 21:38 71 22 50 01/27/21 21:00 72 22 109/65 (80) 93 01/27/21 21:00 22 106/68 Mechanical Ventilator 50 01/27/21 21:00 106/68 01/27/21 20:30 74 22 110/70 (83) 93 01/27/21 20:00 50 01/27/21 20:00 78 22 106/65 (79) 93 01/27/21 20:00 Mechanical Ventilator 01/27/21 20:00 22 106/65 Mechanical Ventilator 50 01/27/21 20:00 106/65 01/27/21 19:54 78 01/27/21 19:30 80 22 108/65 (79) 93 01/27/21 19:26 81 22 50 01/27/21 19:00 98.0 85 22 103/64 (77) 93 01/27/21 19:00 22 101/59 Mechanical Ventilator 50 01/27/21 19:00 101/59 01/27/21 18:00 22 99/55 Mechanical Ventilator 50 01/27/21 18:00 99/55 01/27/21 18:00 84 22 100/60 (73) 93 01/27/21 17:30 84 22 108/63 (78) 93 01/27/21 17:00 22 106/62 Mechanical Ventilator 50 01/27/21 17:00 106/62 01/27/21 17:00 83 22 114/78 (90) 93 01/27/21 16:30 97.8 82 22 106/62 (77) 94 01/27/21 16:00 81 01/27/21 16:00 79 22 114/78 (90) 93 01/27/21 16:00 22 114/78 Mechanical Ventilator 50 01/27/21 16:00 114/78 01/27/21 16:00 Mechanical Ventilator 01/27/21 16:00 50 01/27/21 15:50 75 22 50 01/27/21 15:30 79 22 90/45 (60) 94 01/27/21 15:00 22 100/63 Mechanical Ventilator 50 01/27/21 15:00 100/63 01/27/21 15:00 72 22 100/63 (75) 95 01/27/21 14:30 70 22 101/60 (74) 95 01/27/21 14:00 22 100/65 Mechanical Ventilator 50 01/27/21 14:00 100/65 01/27/21 14:00 74 22 100/65 (77) 95 01/27/21 13:45 83 22 50 01/27/21 13:30 90 22 92/54 (67) 95 01/27/21 13:15 22 100/59 Mechanical Ventilator 50 01/27/21 13:00 22 98/55 Mechanical Ventilator 50 01/27/21 13:00 98/55 01/27/21 13:00 22 98/55 Mechanical Ventilator 50 01/27/21 13:00 83 22 95/58 (70) 94 01/27/21 12:48 22 101/56 Mechanical Ventilator 50 01/27/21 12:45 22 99/59 Mechanical Ventilator 50 I&O Intake and Output 01/27/21 01/28/21 19:00 07:00 Intake Total 1205.51 ml 1544.74841 ml Output Total 960 ml 960 ml Balance 245.51 ml 584.88984 ml Free Water 130 ml 60 ml IV Total 1015.51 ml 1214.41754 ml Tube Feeding 60 ml 270 ml Output Urine Total 960 ml 960 ml Dressing: saturated Cardiovascular: RSR Respiratory: decreased breath sounds Abdomen: soft, non-tender, present bowel sounds Extremities: no tenderness, no cyanosis Laboratory Tests Test 01/27/21 17:23 01/28/21 03:41 POC Whole Blood Glucose Pending White Blood Count 5.5 K/UL (4.8-10.8) Red Blood Count 4.16 M/UL (4.70-6.10) L Hemoglobin 11.8 G/DL (14.2-18.0) L Hematocrit 38.2 % (42.0-52.0) L Mean Corpuscular Volume 92 FL (80-99) Mean Corpuscular Hemoglobin 28.3 PG (27.0-31.0) Mean Corpuscular Hemoglobin Concent 30.8 G/DL (32.0-36.0) L Red Cell Distribution Width 15.7 % (11.6-14.8) H Platelet Count 151 K/UL (150-450) Mean Platelet Volume 8.6 FL (6.5-10.1) Neutrophils (%) (Auto) 70.3 % (45.0-75.0) Lymphocytes (%) (Auto) 12.8 % (20.0-45.0) L Monocytes (%) (Auto) 8.0 % (1.0-10.0) Eosinophils (%) (Auto) 5.4 % (0.0-3.0) H Basophils (%) (Auto) 3.5 % (0.0-2.0) H Prothrombin Time 25.3 SEC (9.30-11.50) H Prothromb Time International Ratio 2.5 (0.9-1.1) H Sodium Level 142 MMOL/L (136-145) Potassium Level 3.7 MMOL/L (3.5-5.1) Chloride Level 106 MMOL/L (98-107) Carbon Dioxide Level 25 MMOL/L (21-32) Anion Gap 11 mmol/L (5-15) Blood Urea Nitrogen 6 mg/dL (7-18) L Creatinine 0.6 MG/DL (0.55-1.30) Estimat Glomerular Filtration Rate > 60 mL/min (>60) Glucose Level 242 MG/DL (74-106) H Calcium Level 8.5 MG/DL (8.5-10.1) Phosphorus Level 2.0 MG/DL (2.5-4.9) L Magnesium Level 1.9 MG/DL (1.8-2.4) Total Bilirubin 0.3 MG/DL (0.2-1.0) Direct Bilirubin < 0.1 MG/DL (0.0-0.3) Aspartate Amino Transf (AST/SGOT) 22 U/L (15-37) Alanine Aminotransferase (ALT/SGPT) 35 U/L (12-78) Alkaline Phosphatase 80 U/L (46-116) Total Protein 6.1 G/DL (6.4-8.2) L Albumin 1.8 G/DL (3.4-5.0) L Plan Problems: (1) COPD (chronic obstructive pulmonary disease) (2) Essential hypertension (3) Schizophrenia (4) Obesity (5) Diabetes mellitus type 2 in obese (6) History of hydrocephalus (7) Anticoagulant long-term use (8) Bipolar 1 disorder (9) History of deep venous thrombosis or pulmonary embolus (10) Acute hypercapnic respiratory failure (11) Sepsis Assessment & Plan: 60-year-old male Covid positive respiratory insufficiency and severe decline being prone intubated on vent support labs noted septic ill- appearing has been developing wound around the face from ET tube.Receiv ed report from RT pt is being proned and was observed to have developed a blood blister under vent tape on L cheek and L earlobe. Skin assessed and pt was observed to have a blood blister that is 50% de-capped,50% intact. Intact Blood Blister noted to L earlobe. Skin Barrier applied to affected areas. Optifoam Thin foam placed between vent anchor and pt's skin. Optifoam thin placed to R cheek under Vent tape, on Bridge of nose and both earlobes. Given patient's critical status current care plan and findings nutritional optimization is strongly encouraged Covid nutrition plan initiated. All Covid precautions are being taken. Imaging reviewed. Will follow with care plan. Thank you [facility] participation care Tx.Plan: Maintain Optifoam Thin foam to R and L cheeks,Bridge of Nose and Both Ears . Change every 7 days and prn.( May request Optifoam Thin from [facility] dept). APM/PEPE Mattress overlay DAILY ESTIMATED NEEDS: Needs based on Critical care, pulmonary, obese 73.7kg abw 22-28 kcals/kg 6847-0197 total kcals 1.2-2 g protein/kg 88-147 g total protein 25-30 mL/kg 6600-0216 total fluid mLs NUTRITION DIAGNOSIS: Altered nutrition related lab values r/t steroidal meds, clinical status as evidenced by febrile on adm (102.5), elevated BG (270 287) on solumedrol, elevated lipid panel (Triglycerides 333, Chol 370, LDL 150). CURRENT TF:Vital @30ml/hr, now Nepro @30 ENTERAL NUTRITION RECOMMENDATIONS: NEPRO @30ml/hr while supine to provide x8 hrs feeds: 360ml, 648 kcal, 29g pro, 262ml free H2O - Feed at rate best tolerated, currently not meeting est needs d/t proning and aspiration risk w/ supine feeds limited to 8hrs/day. - W/ reduced aspiration risk rec feedings to total Volume of 900ml/day of Nepro as medically able. - Monitor tolerance, position/HOB >30 degrees, hemodynamic stability and ability to increase to meet est kcal and pro needs. - With increase pressor support, rec trophic feeds of 10ml/hr for gut integrity. - When tolerating TF at goal add Prosource BID to better meet est pro needs. ADDITIONAL RECOMMENDATIONS: 1) Now intubated, TF recs above when off proning (8hrs feeds) 2) Obtain calibrated bedscale wts 3) HgA1C/ elevated BG Need for niss while on D5 4) Lytes daily; replete as needed 5) Monitor triglycerides, TF tolerance, hemodynamic stability. (12) Respiratory failure with hypoxia (13) Pneumonia due to COVID-19 virus (14) Hyperkalemia (15) DMII (diabetes mellitus, type 2) Ki Strong Jan 28, 2021 12:40
[2021-01-28] MEDS ORDERED: Sterile Water Irrig 1000ml IRRIG ONE (13:38)
[2021-01-28] MEDS ORDERED: NS 275ml ONE ×2 (13:38→14:05)
[2021-01-28] MEDS ORDERED: Tubing IV Secondary IV ONE (13:38)
[2021-01-28] MEDS ORDERED: NS 500ML ONE (13:38)
[2021-01-28] MEDS ORDERED: Potassium Phosphate 20 MM in NS 275 ML IV ONE (14:00)
[2021-01-28] MEDS ORDERED: Warfarin Sodium 1mg ORAL SCH (17:00)
--- NOTE | 2021-01-28 19:36 | Internal Med Progress Note ---
Subjective Date of Service: Jan 28, 2021 Physician Name Vickey Brown Attending Physician Geovanny Bradley MD Current Medications Medications (Trade) Dose Ordered Sig/Johnny Route PRN Reason Start Time Stop Time Status Last Admin Dose Admin Acetaminophen (Tylenol) 650 mg Q6H PRN NG Temp >100.5 01/09/21 09:15 02/08/21 09:14 01/26/21 02:05 Acetaminophen (Tylenol) 650 mg Q6H PRN NG Mild Pain (Pain Scale 1-3) 01/09/21 09:15 02/08/21 09:14 01/27/21 05:10 Albuterol Sulfate (Proventil MDI) 2 puff Q6HRT INH 01/02/21 19:00 04/02/21 18:59 01/28/21 13:00 Benztropine Mesylate (Cogentin) 1 mg EVERY 12 HOURS NG 01/09/21 09:15 02/01/21 09:14 01/28/21 10:10 Chlorhexidine Gluconate (Myranda-Hex 2%) 1 applic DAILY@2000 TOPIC 01/12/21 20:00 04/12/21 19:59 01/27/21 19:41 Dextrose (Dextrose 50%) 25 ml Q30M PRN IV Hypoglycemia 01/06/21 23:45 04/06/21 23:44 Dextrose (Dextrose 50%) 50 ml Q30M PRN IV Hypoglycemia 01/06/21 23:45 04/06/21 23:44 Fentanyl Citrate 250 ml @ 1 mls/hr Q24H PRN IV Agitation 01/26/21 19:00 01/30/21 18:59 01/28/21 12:08 Insulin Aspart (NovoLOG) EVERY 6 HOURS SUBQ 01/09/21 12:00 04/04/21 16:29 01/28/21 18:43 Ipratropium Edison (Atrovent Inh) 1 puffs Q6HRT INH 01/02/21 19:00 02/01/21 18:59 01/28/21 13:00 Lansoprazole (Prevacid) 30 mg DAILY GT 01/24/21 09:00 02/15/21 08:59 01/28/21 10:09 Midazolam HCl 200 ml @ 0 mls/hr Q24H PRN IV Agitation 01/24/21 00:30 01/31/21 00:29 01/27/21 08:05 Midodrine (Pro-Amatine) 10 mg Q8HR ORAL 01/20/21 14:00 04/20/21 13:59 01/28/21 13:07 Norepinephrine Bitartrate 8 mg/ Dextrose 258 ml @ 0 mls/hr Q24H IV 01/28/21 20:00 01/31/21 19:59 Nystatin (Nystatin) 5 ml QID ORAL 01/25/21 18:00 02/01/21 17:59 01/28/21 18:43 Ondansetron HCl (Zofran) 4 mg Q4H PRN IVP Nausea & Vomiting 01/02/21 08:15 02/01/21 08:14 Piperacillin Sod/ Tazobactam Sod 3.375 gm/Sodium Chloride 110 ml @ 27.5 mls/hr Q8H IVPB 01/25/21 10:00 02/01/21 09:59 01/28/21 18:43 Potassium Phosphate 20 mm/ Sodium Chloride 281.6667 ml @ 46.944 m... ONCE ONCE IV 01/28/21 14:00 01/28/21 19:59 01/28/21 14:39 Potassium Chloride (K-Dur) 20 meq TWICE A DAY NG 01/20/21 13:00 04/20/21 12:59 01/28/21 18:43 Quetiapine Fumarate (SEROqueL) 100 mg Q12HR ORAL 01/20/21 15:00 03/06/21 14:59 01/28/21 10:10 Valproic Acid (Depakene) 500 mg Q12HR GT 01/22/21 21:00 02/21/21 20:59 01/28/21 10:09 Vancomycin HCl 300 ml @ 150 mls/hr Q8H IVPB 01/27/21 11:00 02/01/21 02:59 01/28/21 19:00 Vancomycin HCl (Vanco pharmacy to dose) 1 ea DAILY PRN MISC Per rx protocol 01/25/21 08:15 02/24/21 08:14 Warfarin Sodium (Coumadin per pharmacy) 1 ea DAILY PRN MISC Per rx protocol 01/02/21 08:30 02/01/21 08:29 Warfarin Sodium (Warfarin Sod) 3 mg ONCE ORAL 01/28/21 17:00 01/28/21 20:00 01/28/21 18:43 Allergies: Coded Allergies: No Known Allergies (Unverified , 01/02/21) ROS Limited/Unobtainable: Yes Subjective 60 YO M admitted with shortness of breath. Now respiratory failure. Cover for Alex Bee-DR Bradley. ICU. Intubated and sedated Objective Last Vital Signs Date Time Temp Pulse Resp B/P (MAP) Pulse Ox O2 Delivery O2 Flow Rate FiO2 01/28/21 19:15 78 15 103/59 (74) 98 01/28/21 17:20 50 01/28/21 16:30 99.1 01/28/21 16:00 Mechanical Ventilator 01/24/21 21:00 65.0 Laboratory Tests Test 01/28/21 03:41 White Blood Count 5.5 K/UL (4.8-10.8) Red Blood Count 4.16 M/UL (4.70-6.10) L Hemoglobin 11.8 G/DL (14.2-18.0) L Hematocrit 38.2 % (42.0-52.0) L Mean Corpuscular Volume 92 FL (80-99) Mean Corpuscular Hemoglobin 28.3 PG (27.0-31.0) Mean Corpuscular Hemoglobin Concent 30.8 G/DL (32.0-36.0) L Red Cell Distribution Width 15.7 % (11.6-14.8) H Platelet Count 151 K/UL (150-450) Mean Platelet Volume 8.6 FL (6.5-10.1) Neutrophils (%) (Auto) 70.3 % (45.0-75.0) Lymphocytes (%) (Auto) 12.8 % (20.0-45.0) L Monocytes (%) (Auto) 8.0 % (1.0-10.0) Eosinophils (%) (Auto) 5.4 % (0.0-3.0) H Basophils (%) (Auto) 3.5 % (0.0-2.0) H Prothrombin Time 25.3 SEC (9.30-11.50) H Prothromb Time International Ratio 2.5 (0.9-1.1) H Sodium Level 142 MMOL/L (136-145) Potassium Level 3.7 MMOL/L (3.5-5.1) Chloride Level 106 MMOL/L (98-107) Carbon Dioxide Level 25 MMOL/L (21-32) Anion Gap 11 mmol/L (5-15) Blood Urea Nitrogen 6 mg/dL (7-18) L Creatinine 0.6 MG/DL (0.55-1.30) Estimat Glomerular Filtration Rate > 60 mL/min (>60) Glucose Level 242 MG/DL (74-106) H Calcium Level 8.5 MG/DL (8.5-10.1) Phosphorus Level 2.0 MG/DL (2.5-4.9) L Magnesium Level 1.9 MG/DL (1.8-2.4) Total Bilirubin 0.3 MG/DL (0.2-1.0) Direct Bilirubin < 0.1 MG/DL (0.0-0.3) Aspartate Amino Transf (AST/SGOT) 22 U/L (15-37) Alanine Aminotransferase (ALT/SGPT) 35 U/L (12-78) Alkaline Phosphatase 80 U/L (46-116) Total Protein 6.1 G/DL (6.4-8.2) L Albumin 1.8 G/DL (3.4-5.0) L Intake and Output 01/27/21 01/28/21 19:00 07:00 Intake Total 1205.51 ml 1544.89935 ml Output Total 960 ml 960 ml Balance 245.51 ml 584.10796 ml Free Water 130 ml 60 ml IV Total 1015.51 ml 1214.06777 ml Tube Feeding 60 ml 270 ml Output Urine Total 960 ml 960 ml Objective Objective General: awake, responsive , confused. HEENT: NCAT, sclera anicteric, PERRL, EOMI. Neck: Supple, no significant jugular venous distention, Lungs: mech vent; decreased air at the bases, occasional crackles, no Wheeze. Heart: Regular rate and rhythm, normal S1/S2, no murmurs Abdomen: soft, nontender, nondistended. Normoactive bowel sound, obesity. / Rectal: Refused and deferred. Extremities: Left LE: No Cyanosis , clubbing or edema. Right LE AKA. Neuro: A&O x 2, Able to move all extremities Skin: warm, no rashes or lesions. Assessment/Plan Assessment/Plan Assessment/Plan Assessment/Plan (1) Pneumonia due to COVID-19 virus ICD Codes: U07.1 - COVID-19; J12.82 - Pneumonia due to coronavirus disease 2018 SNOMED: 718230698596250558 (2) Acute hypercapnic respiratory failure ICD Codes: J96.02 - Acute respiratory failure with hypercapnia SNOMED: 536179010 (3) Respiratory failure with hypoxia ICD Codes: J96.91 - Respiratory failure, unspecified with hypoxia SNOMED: 72577040434127586 Qualifiers: Qualified Codes: J96.01 - Acute respiratory failure with hypoxia (4) COPD (chronic obstructive pulmonary disease) ICD Codes: J44.9 - Chronic obstructive pulmonary disease, unspecified SNOMED: 62830575 (5) History of deep venous thrombosis or pulmonary embolus SNOMED: 382590318 (6) Obesity ICD Codes: E66.9 - Obesity, unspecified SNOMED: 188500417, 855358266 (7) Essential hypertension ICD Codes: I10 - Essential (primary) hypertension SNOMED: 48479415 (8) Diabetes mellitus type 2 in obese ICD Codes: E11.69 - Type 2 diabetes mellitus with other specified complication; E66.9 - Obesity, unspecified SNOMED: 66651981 (9) History of hydrocephalus ICD Codes: Z86.69 - Personal history of other diseases of the nervous system and sense organs SNOMED: 069211514 (10) Schizophrenia ICD Codes: F20.9 - Schizophrenia, unspecified SNOMED: 06113550 (11) Bipolar 1 disorder ICD Codes: F31.9 - Bipolar disorder, unspecified SNOMED: 087332307 (12) Anticoagulant long-term use ICD Codes: Z79.01 - care home (current) use of anticoagulants SNOMED: 649386713 13. Sepsis=gram pos cocci 14. thrush Assessment/Plan: Optimize pulmonary hygiene/mobilize as tolerated Non Rebreather mask>BIPAP>intubated S/P Remdesivir IV S/P Solu-Medrol 40 mg IV twice a day. Abx = zosyn and vanco F/U Cx's Monitor volumes and renal function DVT Px: Coumadin DC IV fluid Start diet Monitor blood glucose level closely. On levophed, fentanyl and propofol drips Pulmonary=Dr Balfe ID=Dr Gomez Psych consult=Dr Gallegos Start seroquel at 1/2 previous dose continue nystatin await tracheostomy Vickey Brown MD Jan 28, 2021 19:36
[2021-01-28] MEDS: Dyna-Hex 2% Top Sol 2oz TOPIC SCH (20:32)
[2021-01-28] MEDS: NOREPINEPHRINE BITARTRATE IV SCH (20:33)
[2021-01-28] MEDS: D5W IV SCH (20:33)
[2021-01-29] VITALS (55 sets, daily range): BP systolic 81–150; BP diastolic 47–91
[2021-01-29] MEDS: NovoLOG Insulin Flexpen SUBQ SCH ×5 (00:11→23:51)
[2021-01-29] MEDS: Ipratropium Bromide Inhaler INH SCH ×4 (00:59→19:04)
[2021-01-29] MEDS: Albuterol 90mcg Inhaler 8gm INH SCH ×4 (00:59→19:04)
[2021-01-29] MEDS: Piperacillin/Tazobactam 3.375 GM in NS 110 ML IVPB SCH ×3 (02:13→18:25)
[2021-01-29] MEDS: Vancomycin 1.5gm/300ml Premix 300 ML IVPB SCH ×3 (02:13→18:25)
[2021-01-29] MEDS: Midodrine 10mg tab ORAL SCH ×3 (05:23→22:26)
[2021-01-29 05:28] LABS: EOSINOPHILS % (AUTO) 4.9 % (0.0-3.0); HEMATOCRIT 37.1 % (42.0-52.0); HEMOGLOBIN 11.5 G/DL (14.2-18.0); LYMPHOCYTES % (AUTO) 16.3 % (20.0-45.0); MEAN CORPUSCULAR VOLUME 91 FL (80-99); MONOCYTES % (AUTO) 7.6 % (1.0-10.0); NEUTROPHILS % (AUTO) 69.2 % (45.0-75.0); PLATELET COUNT 166 K/UL (150-450); RED BLOOD COUNT 4.08 M/UL (4.70-6.10); RED CELL DISTRIBUTION WIDTH 15.4 % (11.6-14.8); WHITE BLOOD COUNT 5.5 K/UL (4.8-10.8)
[2021-01-29 05:31] LABS: ANION GAP 11 mmol/L (5-15); BLOOD UREA NITROGEN 5 mg/dL (7-18); CALCIUM 8.5 MG/DL (8.5-10.1); CARBON DIOXIDE 25 MMOL/L (21-32); CHLORIDE 105 MMOL/L (98-107); CREATININE 0.6 MG/DL (0.55-1.30); POTASSIUM 3.7 MMOL/L (3.5-5.1); SODIUM 141 MMOL/L (136-145)
[2021-01-29 05:43] LABS: INR 3.2 (0.9-1.1)
--- NOTE | 2021-01-29 08:27 | Infectious Diseases Prog Note ---
Assessment/Plan 60yo M with: Septic SHock Receurrent Gram postiive bacteremia r/o gentry infection -01/25 Bcx 2/ sets GPC clustesr Staph epi bacteremia, m/l skin contaminant 01/10 BCx 12/01 +Staph epi 01/13 BCx Neg 01/25 BCx CoNS 01/01 01/28 BCx - Pend COVID pna, severe Acute hypoxia 01/01 COVID pna >> intubated 01/06- 50% FIo2 Febrile to 103; imporving Normal WBC Elevated AST 51 01/01 Tested positive for COVID at [facility] 01/02 COVID PCR positive 01/02 BCx NTD CXR: Multifocal pna MRSA nares neg 01/06 Intubated in ICU CXR: 1. Appropriately positioned endotracheal and enteric tubes. 2. Stable bilateral airspace disease. 01/07 Resp cx +Yasmine albicans (colonizer) 01/11 CXR: Interval improved bilateral lung aeration. Bibasilar infiltrates/atelectasis. Cr 1.1 HIV screen neg PMH: DM2 COPD HTN SNF resident Plan: Cont Vancomycin #5/7 and Zosyn #5/7 Lux Cx CXR Monitor WBCs Monitor temps 01/22/21 steroids #19, on methylpred 20 IV q12 - defer course to Pulm/Primary, now tapering 01/19/21 SP Zosyn #10 01/14 SP vanco IV #1 01/09 SP CTX #7 01/07 SP azithro #5, RDV #5 This institution does not have access to convalescent plasma and only recommended to give in setting of clinical trial Monitor temp curve, hemodynamics Monitor resp status Bcx2 remove central line D/w RN Thank you for this consult. [facility] will continue to follow. Subjective Allergies: Coded Allergies: No Known Allergies (Unverified , 01/02/21) Afebrile Remains on Vent 50% O2 No Leukocytosis On levophed IDA Objective Last 24 Hour Vital Signs Date Time Temp Pulse Resp B/P (MAP) Pulse Ox O2 Delivery O2 Flow Rate FiO2 01/29/21 07:54 80 22 50 01/29/21 07:00 114/67 01/29/21 07:00 22 114/67 Mechanical Ventilator 50 01/29/21 07:00 76 22 114/67 (83) 99 01/29/21 06:00 76 22 109/65 (80) 99 01/29/21 06:00 109/65 01/29/21 06:00 22 109/65 Mechanical Ventilator 50 01/29/21 05:30 80 22 110/69 (83) 97 01/29/21 05:25 78 22 50 01/29/21 05:00 70 22 109/70 (83) 98 01/29/21 05:00 109/70 01/29/21 05:00 22 109/70 Mechanical Ventilator 50 01/29/21 04:00 98.0 69 22 108/67 (81) 98 01/29/21 04:00 50 01/29/21 04:00 108/67 01/29/21 04:00 22 108/67 Mechanical Ventilator 50 01/29/21 04:00 Mechanical Ventilator 01/29/21 03:21 76 01/29/21 03:20 72 22 50 01/29/21 03:00 111/67 01/29/21 03:00 22 111/67 Mechanical Ventilator 50 01/29/21 03:00 78 22 111/67 (82) 100 01/29/21 02:00 66 22 130/80 (97) 100 01/29/21 02:00 130/80 01/29/21 02:00 22 130/80 Mechanical Ventilator 50 01/29/21 01:00 71 22 120/74 (89) 98 01/29/21 01:00 120/74 01/29/21 01:00 22 120/74 Mechanical Ventilator 50 01/29/21 00:59 75 22 50 01/29/21 00:00 Mechanical Ventilator 01/29/21 00:00 50 01/29/21 00:00 108/63 01/29/21 00:00 22 108/63 Mechanical Ventilator 50 01/29/21 00:00 98.4 79 22 108/63 (78) 98 01/28/21 23:39 20 102/57 Mechanical Ventilator 50 01/28/21 23:30 85 17 102/57 (72) 97 01/28/21 23:10 83 22 50 01/28/21 23:00 98/55 01/28/21 23:00 22 98/55 Mechanical Ventilator 50 01/28/21 23:00 81 22 95/53 (67) 98 01/28/21 22:30 81 3 98/53 (68) 98 01/28/21 22:00 94/51 01/28/21 22:00 17 94/51 Mechanical Ventilator 50 01/28/21 22:00 82 22 96/50 (65) 98 01/28/21 21:10 55 22 50 01/28/21 21:00 53 20 125/75 (92) 99 01/28/21 21:00 125/75 01/28/21 21:00 12 125/75 Mechanical Ventilator 50 01/28/21 20:33 112/66 01/28/21 20:00 76 01/28/21 20:00 98.6 70 0 110/72 (85) 98 01/28/21 20:00 Mechanical Ventilator 01/28/21 20:00 18 116/72 Mechanical Ventilator 50 01/28/21 19:45 74 2 110/68 (82) 99 01/28/21 19:38 69 22 50 01/28/21 19:30 74 17 103/61 (75) 99 01/28/21 19:15 78 15 103/59 (74) 98 01/28/21 19:00 79 11 117/66 (83) 99 01/28/21 18:45 69 21 117/69 (85) 98 01/28/21 18:30 63 17 111/72 (85) 98 01/28/21 18:29 62 22 111/72 (85) 99 01/28/21 18:15 64 19 108/74 (85) 98 01/28/21 18:00 66 22 108/74 (85) 98 01/28/21 18:00 67 18 109/74 (86) 98 01/28/21 17:45 73 21 115/70 (85) 98 01/28/21 17:30 63 21 113/63 (80) 98 01/28/21 17:30 76 20 113/63 (80) 99 01/28/21 17:20 50 01/28/21 17:20 50 01/28/21 17:15 75 10 110/67 (81) 99 01/28/21 17:00 77 21 110/61 (77) 98 01/28/21 16:45 74 22 110/63 (79) 98 01/28/21 16:30 99.1 77 21 113/65 (81) 98 01/28/21 16:30 74 22 114/61 (78) 98 01/28/21 16:15 80 22 108/62 (77) 98 01/28/21 16:00 98.0 73 20 113/65 (81) 98 01/28/21 16:00 82 22 105/61 (76) 98 01/28/21 16:00 Mechanical Ventilator 01/28/21 16:00 78 01/28/21 16:00 40 01/28/21 15:54 82 22 40 01/28/21 15:45 83 22 108/57 (74) 98 01/28/21 15:30 81 22 108/60 (76) 98 01/28/21 15:15 79 22 110/56 (74) 97 01/28/21 15:00 76 22 113/71 (85) 98 01/28/21 15:00 22 113/71 Mechanical Ventilator 40 01/28/21 15:00 75 22 113/71 (85) 98 01/28/21 14:45 79 22 116/68 (84) 97 01/28/21 14:30 77 22 109/64 (79) 98 01/28/21 14:30 76 22 109/64 (79) 97 01/28/21 14:15 76 22 101/61 (74) 97 01/28/21 14:00 22 93/48 Mechanical Ventilator 40 01/28/21 14:00 80 22 93/49 (64) 97 01/28/21 14:00 79 22 93/49 (64) 97 01/28/21 13:45 86 20 90/50 (63) 97 01/28/21 13:30 80 22 112/72 (85) 97 01/28/21 13:30 75 23 112/72 (85) 98 01/28/21 13:15 73 22 102/62 (75) 98 01/28/21 13:00 74 22 104/62 (76) 98 01/28/21 13:00 22 104/62 Mechanical Ventilator 40 01/28/21 13:00 75 22 104/62 (76) 98 01/28/21 12:45 75 22 103/68 (80) 98 01/28/21 12:30 75 22 107/67 (80) 98 01/28/21 12:30 75 22 107/67 (80) 98 01/28/21 12:15 77 22 99/62 (74) 98 01/28/21 12:08 22 95/57 Mechanical Ventilator 40 01/28/21 12:00 Mechanical Ventilator 01/28/21 12:00 40 01/28/21 12:00 50 01/28/21 12:00 96.9 77 22 95/57 (70) 98 01/28/21 12:00 22 95/57 Mechanical Ventilator 40 01/28/21 12:00 77 01/28/21 12:00 98.2 79 22 95/57 (70) 98 01/28/21 11:47 78 22 40 01/28/21 11:45 79 22 97/58 (71) 98 01/28/21 11:30 81 22 93/57 (69) 98 01/28/21 11:30 79 22 93/57 (69) 98 01/28/21 11:15 80 22 100/63 (75) 98 01/28/21 11:00 85 22 96/50 (65) 97 01/28/21 11:00 83 11 96/50 (65) 93 01/28/21 11:00 22 96/50 Mechanical Ventilator 50 01/28/21 10:45 79 21 97/69 (78) 96 01/28/21 10:30 68 20 110/76 (87) 96 01/28/21 10:15 65 22 125/77 (93) 96 01/28/21 10:00 67 22 118/74 (89) 96 01/28/21 10:00 66 22 118/74 (89) 96 01/28/21 10:00 22 118/74 Mechanical Ventilator 50 01/28/21 09:45 69 22 122/77 (92) 96 01/28/21 09:30 67 22 114/77 (89) 96 01/28/21 09:30 69 22 125/77 (93) 96 01/28/21 09:28 64 22 50 01/28/21 09:15 69 0 119/75 (90) 97 01/28/21 09:00 65 22 118/71 (87) 97 01/28/21 09:00 72 0 118/71 (87) 97 01/28/21 09:00 22 118/71 Mechanical Ventilator 50 01/28/21 08:45 61 0 114/75 (88) 96 01/28/21 08:30 97.5 65 22 114/75 (88) 96 01/28/21 08:30 64 0 119/74 (89) 96 Height (Feet): 5 Height (Inches): 5.00 Weight (Pounds): 233 Gen: NAD on Vent 50% O2 HEENT: NCAT, ETT Pulm: BL chest rise, RRR Ext: No c/c/e Skin: No visible rashes Neuro: Not following Laboratory Tests Test 01/29/21 03:25 White Blood Count 5.5 K/UL (4.8-10.8) Red Blood Count 4.08 M/UL (4.70-6.10) L Hemoglobin 11.5 G/DL (14.2-18.0) L Hematocrit 37.1 % (42.0-52.0) L Mean Corpuscular Volume 91 FL (80-99) Mean Corpuscular Hemoglobin 28.2 PG (27.0-31.0) Mean Corpuscular Hemoglobin Concent 31.0 G/DL (32.0-36.0) L Red Cell Distribution Width 15.4 % (11.6-14.8) H Platelet Count 166 K/UL (150-450) Mean Platelet Volume 8.7 FL (6.5-10.1) Neutrophils (%) (Auto) 69.2 % (45.0-75.0) Lymphocytes (%) (Auto) 16.3 % (20.0-45.0) L Monocytes (%) (Auto) 7.6 % (1.0-10.0) Eosinophils (%) (Auto) 4.9 % (0.0-3.0) H Basophils (%) (Auto) 2.0 % (0.0-2.0) Prothrombin Time 32.5 SEC (9.30-11.50) H Prothromb Time International Ratio 3.2 (0.9-1.1) H Sodium Level 141 MMOL/L (136-145) Potassium Level 3.7 MMOL/L (3.5-5.1) Chloride Level 105 MMOL/L (98-107) Carbon Dioxide Level 25 MMOL/L (21-32) Anion Gap 11 mmol/L (5-15) Blood Urea Nitrogen 5 mg/dL (7-18) L Creatinine 0.6 MG/DL (0.55-1.30) Estimat Glomerular Filtration Rate > 60 mL/min (>60) Glucose Level 227 MG/DL (74-106) H Calcium Level 8.5 MG/DL (8.5-10.1) Cortisol AM Sample Pending Current Medications Medications (Trade) Dose Ordered Sig/Johnny Route PRN Reason Start Time Stop Time Status Last Admin Dose Admin Acetaminophen (Tylenol) 650 mg Q6H PRN NG Temp >100.5 01/09/21 09:15 02/08/21 09:14 01/26/21 02:05 Acetaminophen (Tylenol) 650 mg Q6H PRN NG Mild Pain (Pain Scale 1-3) 01/09/21 09:15 02/08/21 09:14 01/27/21 05:10 Albuterol Sulfate (Proventil MDI) 2 puff Q6HRT INH 01/02/21 19:00 04/02/21 18:59 01/29/21 07:53 Benztropine Mesylate (Cogentin) 1 mg EVERY 12 HOURS NG 01/09/21 09:15 02/01/21 09:14 01/28/21 20:34 Chlorhexidine Gluconate (Myranda-Hex 2%) 1 applic DAILY@2000 TOPIC 01/12/21 20:00 04/12/21 19:59 01/28/21 20:32 Dextrose (Dextrose 50%) 25 ml Q30M PRN IV Hypoglycemia 01/06/21 23:45 04/06/21 23:44 Dextrose (Dextrose 50%) 50 ml Q30M PRN IV Hypoglycemia 01/06/21 23:45 04/06/21 23:44 Fentanyl Citrate 250 ml @ 1 mls/hr Q24H PRN IV Agitation 01/26/21 19:00 01/30/21 18:59 01/28/21 23:39 Insulin Aspart (NovoLOG) EVERY 6 HOURS SUBQ 01/09/21 12:00 04/04/21 16:29 01/29/21 05:24 Ipratropium [place] (Atrovent Inh) 1 puffs Q6HRT INH 01/02/21 19:00 02/01/21 18:59 01/29/21 07:53 Lansoprazole (Prevacid) 30 mg DAILY GT 01/24/21 09:00 02/15/21 08:59 01/28/21 10:09 Midazolam HCl 200 ml @ 0 mls/hr Q24H PRN IV Agitation 01/24/21 00:30 01/31/21 00:29 01/27/21 08:05 Midodrine (Pro-Amatine) 10 mg Q8HR ORAL 01/20/21 14:00 04/20/21 13:59 01/29/21 05:23 Norepinephrine Bitartrate 8 mg/ Dextrose 258 ml @ 0 mls/hr Q24H IV 01/28/21 20:00 01/31/21 19:59 01/28/21 20:33 Nystatin (Nystatin) 5 ml QID ORAL 01/25/21 18:00 02/01/21 17:59 01/28/21 20:33 Ondansetron HCl (Zofran) 4 mg Q4H PRN IVP Nausea & Vomiting 01/02/21 08:15 02/01/21 08:14 Piperacillin Sod/ Tazobactam Sod 3.375 gm/Sodium Chloride 110 ml @ 27.5 mls/hr Q8H IVPB 01/25/21 10:00 02/01/21 09:59 01/29/21 02:13 Potassium Chloride (K-Dur) 20 meq TWICE A DAY NG 01/20/21 13:00 04/20/21 12:59 01/28/21 18:43 Quetiapine Fumarate (SEROqueL) 100 mg Q12HR ORAL 01/20/21 15:00 03/06/21 14:59 01/28/21 20:34 Valproic Acid (Depakene) 500 mg Q12HR GT 01/22/21 21:00 02/21/21 20:59 01/28/21 20:34 Vancomycin HCl 300 ml @ 150 mls/hr Q8H IVPB 01/27/21 11:00 02/01/21 02:59 01/29/21 02:13 Vancomycin HCl (Vanco pharmacy to dose) 1 ea DAILY PRN MISC Per rx protocol 01/25/21 08:15 02/24/21 08:14 Warfarin Sodium (Coumadin per pharmacy) 1 ea DAILY PRN MISC Per rx protocol 01/02/21 08:30 02/01/21 08:29 Anuel Crespo MD Jan 29, 2021 08:27
[2021-01-29] MEDS: Benztropine 1mg tab NG SCH ×2 (09:02→21:21)
[2021-01-29] MEDS: Valproic Acid 250mg/5ml Liquid GT SCH ×2 (09:02→21:22)
[2021-01-29] MEDS: Nystatin Susp 500,000 units/5ml ORAL SCH ×4 (09:02→21:21)
[2021-01-29 09:31] LABS: PHOSPHORUS 3.2 MG/DL (2.5-4.9)
--- NOTE | 2021-01-29 09:41 | Pulmonology Progress Note ---
Subjective ROS Limited/Unobtainable: Yes Allergies: Coded Allergies: No Known Allergies (Unverified , 01/02/21) Objective Last 24 Hour Vital Signs Date Time Temp Pulse Resp B/P (MAP) Pulse Ox O2 Delivery O2 Flow Rate FiO2 01/29/21 08:00 91 01/29/21 07:54 80 22 50 01/29/21 07:00 114/67 01/29/21 07:00 22 114/67 Mechanical Ventilator 50 01/29/21 07:00 76 22 114/67 (83) 99 01/29/21 06:00 76 22 109/65 (80) 99 01/29/21 06:00 109/65 01/29/21 06:00 22 109/65 Mechanical Ventilator 50 01/29/21 05:30 80 22 110/69 (83) 97 01/29/21 05:25 78 22 50 01/29/21 05:00 70 22 109/70 (83) 98 01/29/21 05:00 109/70 01/29/21 05:00 22 109/70 Mechanical Ventilator 50 01/29/21 04:00 98.0 69 22 108/67 (81) 98 01/29/21 04:00 50 01/29/21 04:00 108/67 01/29/21 04:00 22 108/67 Mechanical Ventilator 50 01/29/21 04:00 Mechanical Ventilator 01/29/21 03:21 76 01/29/21 03:20 72 22 50 01/29/21 03:00 111/67 01/29/21 03:00 22 111/67 Mechanical Ventilator 50 01/29/21 03:00 78 22 111/67 (82) 100 01/29/21 02:00 66 22 130/80 (97) 100 01/29/21 02:00 130/80 01/29/21 02:00 22 130/80 Mechanical Ventilator 50 01/29/21 01:00 71 22 120/74 (89) 98 01/29/21 01:00 120/74 01/29/21 01:00 22 120/74 Mechanical Ventilator 50 01/29/21 00:59 75 22 50 01/29/21 00:00 Mechanical Ventilator 01/29/21 00:00 50 01/29/21 00:00 108/63 01/29/21 00:00 22 108/63 Mechanical Ventilator 50 01/29/21 00:00 98.4 79 22 108/63 (78) 98 01/28/21 23:39 20 102/57 Mechanical Ventilator 50 01/28/21 23:30 85 17 102/57 (72) 97 01/28/21 23:10 83 22 50 01/28/21 23:00 98/55 01/28/21 23:00 22 98/55 Mechanical Ventilator 50 01/28/21 23:00 81 22 95/53 (67) 98 01/28/21 22:30 81 3 98/53 (68) 98 01/28/21 22:00 94/51 01/28/21 22:00 17 94/51 Mechanical Ventilator 50 01/28/21 22:00 82 22 96/50 (65) 98 01/28/21 21:10 55 22 50 01/28/21 21:00 53 20 125/75 (92) 99 01/28/21 21:00 125/75 01/28/21 21:00 12 125/75 Mechanical Ventilator 50 01/28/21 20:33 112/66 01/28/21 20:00 76 01/28/21 20:00 98.6 70 0 110/72 (85) 98 01/28/21 20:00 Mechanical Ventilator 01/28/21 20:00 18 116/72 Mechanical Ventilator 50 01/28/21 19:45 74 2 110/68 (82) 99 01/28/21 19:38 69 22 50 01/28/21 19:30 74 17 103/61 (75) 99 01/28/21 19:15 78 15 103/59 (74) 98 01/28/21 19:00 79 11 117/66 (83) 99 01/28/21 18:45 69 21 117/69 (85) 98 01/28/21 18:30 63 17 111/72 (85) 98 01/28/21 18:29 62 22 111/72 (85) 99 01/28/21 18:15 64 19 108/74 (85) 98 01/28/21 18:00 66 22 108/74 (85) 98 01/28/21 18:00 67 18 109/74 (86) 98 01/28/21 17:45 73 21 115/70 (85) 98 01/28/21 17:30 63 21 113/63 (80) 98 01/28/21 17:30 76 20 113/63 (80) 99 01/28/21 17:20 50 01/28/21 17:20 50 01/28/21 17:15 75 10 110/67 (81) 99 01/28/21 17:00 77 21 110/61 (77) 98 01/28/21 16:45 74 22 110/63 (79) 98 01/28/21 16:30 99.1 77 21 113/65 (81) 98 01/28/21 16:30 74 22 114/61 (78) 98 01/28/21 16:15 80 22 108/62 (77) 98 01/28/21 16:00 98.0 73 20 113/65 (81) 98 01/28/21 16:00 82 22 105/61 (76) 98 01/28/21 16:00 Mechanical Ventilator 01/28/21 16:00 78 01/28/21 16:00 40 01/28/21 15:54 82 22 40 01/28/21 15:45 83 22 108/57 (74) 98 01/28/21 15:30 81 22 108/60 (76) 98 01/28/21 15:15 79 22 110/56 (74) 97 01/28/21 15:00 76 22 113/71 (85) 98 01/28/21 15:00 22 113/71 Mechanical Ventilator 40 01/28/21 15:00 75 22 113/71 (85) 98 01/28/21 14:45 79 22 116/68 (84) 97 01/28/21 14:30 77 22 109/64 (79) 98 01/28/21 14:30 76 22 109/64 (79) 97 01/28/21 14:15 76 22 101/61 (74) 97 01/28/21 14:00 22 93/48 Mechanical Ventilator 40 01/28/21 14:00 80 22 93/49 (64) 97 01/28/21 14:00 79 22 93/49 (64) 97 01/28/21 13:45 86 20 90/50 (63) 97 01/28/21 13:30 80 22 112/72 (85) 97 01/28/21 13:30 75 23 112/72 (85) 98 01/28/21 13:15 73 22 102/62 (75) 98 01/28/21 13:00 74 22 104/62 (76) 98 01/28/21 13:00 22 104/62 Mechanical Ventilator 40 01/28/21 13:00 75 22 104/62 (76) 98 01/28/21 12:45 75 22 103/68 (80) 98 01/28/21 12:30 75 22 107/67 (80) 98 01/28/21 12:30 75 22 107/67 (80) 98 01/28/21 12:15 77 22 99/62 (74) 98 01/28/21 12:08 22 95/57 Mechanical Ventilator 40 01/28/21 12:00 Mechanical Ventilator 01/28/21 12:00 40 01/28/21 12:00 50 01/28/21 12:00 96.9 77 22 95/57 (70) 98 01/28/21 12:00 22 95/57 Mechanical Ventilator 40 01/28/21 12:00 77 01/28/21 12:00 98.2 79 22 95/57 (70) 98 01/28/21 11:47 78 22 40 01/28/21 11:45 79 22 97/58 (71) 98 01/28/21 11:30 81 22 93/57 (69) 98 01/28/21 11:30 79 22 93/57 (69) 98 01/28/21 11:15 80 22 100/63 (75) 98 01/28/21 11:00 85 22 96/50 (65) 97 01/28/21 11:00 83 11 96/50 (65) 93 01/28/21 11:00 22 96/50 Mechanical Ventilator 50 01/28/21 10:45 79 21 97/69 (78) 96 01/28/21 10:30 68 20 110/76 (87) 96 01/28/21 10:15 65 22 125/77 (93) 96 01/28/21 10:00 67 22 118/74 (89) 96 01/28/21 10:00 66 22 118/74 (89) 96 01/28/21 10:00 22 118/74 Mechanical Ventilator 50 01/28/21 09:45 69 22 122/77 (92) 96 Intake and Output 01/28/21 01/29/21 19:00 07:00 Intake Total 1687.238 ml 1614.2325 ml Output Total 775 ml 980 ml Balance 912.238 ml 634.2325 ml Free Water 300 ml 60 ml IV Total 1087.238 ml 1194.2325 ml Tube Feeding 300 ml 360 ml Output Urine Total 775 ml 980 ml # Bowel Movements 1 Microbiology Date/Time Source Procedure Growth Status 01/27/21 16:10 Blood Blood Culture - Preliminary NO GROWTH AFTER 24 HOURS Resulted 01/27/21 16:08 Blood Blood Culture - Preliminary NO GROWTH AFTER 24 HOURS Resulted Laboratory Tests 01/29/21 03:25: White Blood Count 5.5, Red Blood Count 4.08L, Hemoglobin 11.5L, Hematocrit 37.1L , Mean Corpuscular Volume 91, Mean Corpuscular Hemoglobin 28.2, Mean Corpuscular Hemoglobin Concent 31.0L, Red Cell Distribution Width 15.4H, Platelet Count 166, Mean Platelet Volume 8.7, Neutrophils (%) (Auto) 69.2, Lymphocytes (%) (Auto) 16.3L, Monocytes (%) (Auto) 7.6, Eosinophils (%) (Auto) 4.9H, Basophils (%) (Auto) 2.0, Prothrombin Time 32.5H, Prothromb Time International Ratio 3.2H, Sodium Level 141, Potassium Level 3.7, Chloride Level 105, Carbon Dioxide Level 25, Anion Gap 11, Blood Urea Nitrogen 5L, Creatinine 0.6, Estimat Glomerular Filtration Rate > 60, Glucose Level 227H, Calcium Level 8.5, Phosphorus Level 3.2, Magnesium Level 1.6L, Cortisol AM Sample [Pending] 01/29/21 09:25: Arterial Blood pH 7.381, Arterial Blood Partial Pressure CO2 45.3H, Arterial Blood Partial Pressure O2 70.4L, Arterial Blood HCO3 26.3H, Arterial Blood Oxygen Saturation 93.5L, Arterial Blood Base Excess 0.8, Miguelito Test Positive Current Medications Medications (Trade) Dose Ordered Sig/Johnny Route PRN Reason Start Time Stop Time Status Last Admin Dose Admin Acetaminophen (Tylenol) 650 mg Q6H PRN NG Temp >100.5 01/09/21 09:15 02/08/21 09:14 01/26/21 02:05 Acetaminophen (Tylenol) 650 mg Q6H PRN NG Mild Pain (Pain Scale 1-3) 01/09/21 09:15 02/08/21 09:14 01/27/21 05:10 Albuterol Sulfate (Proventil MDI) 2 puff Q6HRT INH 01/02/21 19:00 04/02/21 18:59 01/29/21 07:53 Benztropine Mesylate (Cogentin) 1 mg EVERY 12 HOURS NG 01/09/21 09:15 02/01/21 09:14 01/29/21 09:02 Chlorhexidine Gluconate (Myranda-Hex 2%) 1 applic DAILY@2000 TOPIC 01/12/21 20:00 04/12/21 19:59 01/28/21 20:32 Dextrose (Dextrose 50%) 25 ml Q30M PRN IV Hypoglycemia 01/06/21 23:45 04/06/21 23:44 Dextrose (Dextrose 50%) 50 ml Q30M PRN IV Hypoglycemia 01/06/21 23:45 04/06/21 23:44 Fentanyl Citrate 250 ml @ 1 mls/hr Q24H PRN IV Agitation 01/26/21 19:00 01/30/21 18:59 01/28/21 23:39 Insulin Aspart (NovoLOG) EVERY 6 HOURS SUBQ 01/09/21 12:00 04/04/21 16:29 01/29/21 05:24 Ipratropium [place] (Atrovent Inh) 1 puffs Q6HRT INH 01/02/21 19:00 02/01/21 18:59 01/29/21 07:53 Lansoprazole (Prevacid) 30 mg DAILY GT 01/24/21 09:00 02/15/21 08:59 01/29/21 09:02 Midazolam HCl 200 ml @ 0 mls/hr Q24H PRN IV Agitation 01/24/21 00:30 01/31/21 00:29 01/27/21 08:05 Midodrine (Pro-Amatine) 10 mg Q8HR ORAL 01/20/21 14:00 04/20/21 13:59 01/29/21 05:23 Norepinephrine Bitartrate 8 mg/ Dextrose 258 ml @ 0 mls/hr Q24H IV 01/28/21 20:00 01/31/21 19:59 01/28/21 20:33 Nystatin (Nystatin) 5 ml QID ORAL 01/25/21 18:00 02/01/21 17:59 01/29/21 09:02 Ondansetron HCl (Zofran) 4 mg Q4H PRN IVP Nausea & Vomiting 01/02/21 08:15 02/01/21 08:14 Piperacillin Sod/ Tazobactam Sod 3.375 gm/Sodium Chloride 110 ml @ 27.5 mls/hr Q8H IVPB 01/25/21 10:00 02/01/21 09:59 01/29/21 09:03 Potassium Chloride (K-Dur) 20 meq TWICE A DAY NG 01/20/21 13:00 04/20/21 12:59 01/29/21 09:02 Quetiapine Fumarate (SEROqueL) 100 mg Q12HR ORAL 01/20/21 15:00 03/06/21 14:59 01/29/21 09:02 Valproic Acid (Depakene) 500 mg Q12HR GT 01/22/21 21:00 02/21/21 20:59 01/29/21 09:02 Vancomycin HCl 300 ml @ 150 mls/hr Q8H IVPB 01/27/21 11:00 02/01/21 02:59 01/29/21 02:13 Vancomycin HCl (Vanco pharmacy to dose) 1 ea DAILY PRN MISC Per rx protocol 01/25/21 08:15 02/24/21 08:14 Warfarin Sodium (Coumadin per pharmacy) 1 ea DAILY PRN MISC Per rx protocol 01/02/21 08:30 02/01/21 08:29 Assessment/Plan Assessment/Plan Pulmonary CCM Progress Note Seen on 01/28/2021 HPI Patient is a 60 man with prior h/o COPD, CPS/bipolar DO, 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 ID following, on AB, s/p REM + SM, CXR with bilateral infiltrates - stable. 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, DM2, HTN and hydrocephalus Physical Exam Deferred Covid19 Vital Signs noted Laboratory Tests noted Imaging noted Height (Feet): 5 Height (Inches): 5.00 Weight (Pounds): 233 Medications Medications noted Assessment/Plan Problem List: (1) Pneumonia due to COVID-19 virus ICD Codes: U07.1 - COVID-19; J12.82 - Pneumonia due to coronavirus disease 2019 SNOMED: 300849967953081991 (2) Acute hypercapnic respiratory failure ICD Codes: J96.02 - Acute respiratory failure with hypercapnia SNOMED: 425153337 (3) Respiratory failure with hypoxia ICD Codes: J96.91 - Respiratory failure, unspecified with hypoxia SNOMED: 49775222007805792 Qualifiers: Qualified Codes: J96.01 - Acute respiratory failure with hypoxia (4) COPD (chronic obstructive pulmonary disease) ICD Codes: J44.9 - Chronic obstructive pulmonary disease, unspecified SNOMED: 88961520 (5) History of deep venous thrombosis or pulmonary embolus SNOMED: 099529891 (6) Obesity ICD Codes: E66.9 - Obesity, unspecified SNOMED: 590423130, 128682494 (7) Essential hypertension ICD Codes: I10 - Essential (primary) hypertension SNOMED: 03539606 (8) Diabetes mellitus type 2 in obese ICD Codes: E11.69 - Type 2 diabetes mellitus with other specified complication; E66.9 - Obesity, unspecified SNOMED: 49279222 (9) History of hydrocephalus ICD Codes: Z86.69 - Personal history of other diseases of the nervous system and sense organs SNOMED: 298890373 (10) Schizophrenia ICD Codes: F20.9 - Schizophrenia, unspecified SNOMED: 44087118 (11) Bipolar 1 disorder ICD Codes: F31.9 - Bipolar disorder, unspecified SNOMED: 765485741 (12) Anticoagulant long-term use 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
--- NOTE | 2021-01-29 10:47 | Surgery Progress Note ---
Surgery Progress Note Subjective Additional Comments no acute events unstable on pressors on vent support weaning but difficult Objective Last 24 Hour Vital Signs Date Time Temp Pulse Resp B/P (MAP) Pulse Ox O2 Delivery O2 Flow Rate FiO2 01/29/21 10:00 88 22 91/55 (67) 97 01/29/21 09:30 92 22 100/57 (71) 97 01/29/21 09:15 85 22 113/69 (84) 97 01/29/21 09:00 84 22 110/62 (78) 96 01/29/21 08:45 81 22 114/64 (81) 96 01/29/21 08:30 80 22 111/69 (83) 96 01/29/21 08:15 79 22 110/71 (84) 95 01/29/21 08:00 50 01/29/21 08:00 91 01/29/21 08:00 Mechanical Ventilator 01/29/21 08:00 99.8 80 22 112/70 (84) 95 01/29/21 07:54 80 22 50 01/29/21 07:45 83 22 118/71 (87) 98 01/29/21 07:30 79 22 115/68 (84) 99 01/29/21 07:15 76 22 115/69 (84) 99 01/29/21 07:00 114/67 01/29/21 07:00 22 114/67 Mechanical Ventilator 50 01/29/21 07:00 76 22 114/67 (83) 99 01/29/21 07:00 76 22 114/67 (83) 99 01/29/21 06:00 76 22 109/65 (80) 99 01/29/21 06:00 109/65 01/29/21 06:00 22 109/65 Mechanical Ventilator 50 01/29/21 05:30 80 22 110/69 (83) 97 01/29/21 05:25 78 22 50 01/29/21 05:00 70 22 109/70 (83) 98 01/29/21 05:00 109/70 01/29/21 05:00 22 109/70 Mechanical Ventilator 50 01/29/21 04:00 98.0 69 22 108/67 (81) 98 01/29/21 04:00 50 01/29/21 04:00 108/67 01/29/21 04:00 22 108/67 Mechanical Ventilator 50 01/29/21 04:00 Mechanical Ventilator 01/29/21 03:21 76 01/29/21 03:20 72 22 50 01/29/21 03:00 111/67 01/29/21 03:00 22 111/67 Mechanical Ventilator 50 01/29/21 03:00 78 22 111/67 (82) 100 01/29/21 02:00 66 22 130/80 (97) 100 01/29/21 02:00 130/80 01/29/21 02:00 22 130/80 Mechanical Ventilator 50 01/29/21 01:00 71 22 120/74 (89) 98 01/29/21 01:00 120/74 01/29/21 01:00 22 120/74 Mechanical Ventilator 50 01/29/21 00:59 75 22 50 01/29/21 00:00 Mechanical Ventilator 01/29/21 00:00 50 01/29/21 00:00 108/63 01/29/21 00:00 22 108/63 Mechanical Ventilator 50 01/29/21 00:00 98.4 79 22 108/63 (78) 98 01/28/21 23:39 20 102/57 Mechanical Ventilator 50 01/28/21 23:30 85 17 102/57 (72) 97 01/28/21 23:10 83 22 50 01/28/21 23:00 98/55 01/28/21 23:00 22 98/55 Mechanical Ventilator 50 01/28/21 23:00 81 22 95/53 (67) 98 01/28/21 22:30 81 3 98/53 (68) 98 01/28/21 22:00 94/51 01/28/21 22:00 17 94/51 Mechanical Ventilator 50 01/28/21 22:00 82 22 96/50 (65) 98 01/28/21 21:10 55 22 50 01/28/21 21:00 53 20 125/75 (92) 99 01/28/21 21:00 125/75 01/28/21 21:00 12 125/75 Mechanical Ventilator 50 01/28/21 20:33 112/66 01/28/21 20:00 76 01/28/21 20:00 98.6 70 0 110/72 (85) 98 01/28/21 20:00 Mechanical Ventilator 01/28/21 20:00 18 116/72 Mechanical Ventilator 50 01/28/21 19:45 74 2 110/68 (82) 99 01/28/21 19:38 69 22 50 01/28/21 19:30 74 17 103/61 (75) 99 01/28/21 19:15 78 15 103/59 (74) 98 01/28/21 19:00 79 11 117/66 (83) 99 01/28/21 18:45 69 21 117/69 (85) 98 01/28/21 18:30 63 17 111/72 (85) 98 01/28/21 18:29 62 22 111/72 (85) 99 01/28/21 18:15 64 19 108/74 (85) 98 01/28/21 18:00 66 22 108/74 (85) 98 01/28/21 18:00 67 18 109/74 (86) 98 01/28/21 17:45 73 21 115/70 (85) 98 01/28/21 17:30 63 21 113/63 (80) 98 01/28/21 17:30 76 20 113/63 (80) 99 01/28/21 17:20 50 01/28/21 17:20 50 01/28/21 17:15 75 10 110/67 (81) 99 01/28/21 17:00 77 21 110/61 (77) 98 01/28/21 16:45 74 22 110/63 (79) 98 01/28/21 16:30 99.1 77 21 113/65 (81) 98 01/28/21 16:30 74 22 114/61 (78) 98 01/28/21 16:15 80 22 108/62 (77) 98 01/28/21 16:00 98.0 73 20 113/65 (81) 98 01/28/21 16:00 82 22 105/61 (76) 98 01/28/21 16:00 Mechanical Ventilator 01/28/21 16:00 78 01/28/21 16:00 40 01/28/21 15:54 82 22 40 01/28/21 15:45 83 22 108/57 (74) 98 01/28/21 15:30 81 22 108/60 (76) 98 01/28/21 15:15 79 22 110/56 (74) 97 01/28/21 15:00 76 22 113/71 (85) 98 01/28/21 15:00 22 113/71 Mechanical Ventilator 40 01/28/21 15:00 75 22 113/71 (85) 98 01/28/21 14:45 79 22 116/68 (84) 97 01/28/21 14:30 77 22 109/64 (79) 98 01/28/21 14:30 76 22 109/64 (79) 97 01/28/21 14:15 76 22 101/61 (74) 97 01/28/21 14:00 22 93/48 Mechanical Ventilator 40 01/28/21 14:00 80 22 93/49 (64) 97 01/28/21 14:00 79 22 93/49 (64) 97 01/28/21 13:45 86 20 90/50 (63) 97 01/28/21 13:30 80 22 112/72 (85) 97 01/28/21 13:30 75 23 112/72 (85) 98 01/28/21 13:15 73 22 102/62 (75) 98 01/28/21 13:00 74 22 104/62 (76) 98 01/28/21 13:00 22 104/62 Mechanical Ventilator 40 01/28/21 13:00 75 22 104/62 (76) 98 01/28/21 12:45 75 22 103/68 (80) 98 01/28/21 12:30 75 22 107/67 (80) 98 01/28/21 12:30 75 22 107/67 (80) 98 01/28/21 12:15 77 22 99/62 (74) 98 01/28/21 12:08 22 95/57 Mechanical Ventilator 40 01/28/21 12:00 Mechanical Ventilator 01/28/21 12:00 40 01/28/21 12:00 50 01/28/21 12:00 96.9 77 22 95/57 (70) 98 01/28/21 12:00 22 95/57 Mechanical Ventilator 40 01/28/21 12:00 77 01/28/21 12:00 98.2 79 22 95/57 (70) 98 01/28/21 11:47 78 22 40 01/28/21 11:45 79 22 97/58 (71) 98 01/28/21 11:30 81 22 93/57 (69) 98 01/28/21 11:30 79 22 93/57 (69) 98 01/28/21 11:15 80 22 100/63 (75) 98 01/28/21 11:00 85 22 96/50 (65) 97 01/28/21 11:00 83 11 96/50 (65) 93 01/28/21 11:00 22 96/50 Mechanical Ventilator 50 I&O Intake and Output 01/28/21 01/29/21 19:00 07:00 Intake Total 1687.238 ml 1614.2325 ml Output Total 775 ml 980 ml Balance 912.238 ml 634.2325 ml Free Water 300 ml 60 ml IV Total 1087.238 ml 1194.2325 ml Tube Feeding 300 ml 360 ml Output Urine Total 775 ml 980 ml # Bowel Movements 1 Dressing: saturated Cardiovascular: RSR Respiratory: decreased breath sounds Abdomen: soft, non-tender, present bowel sounds, non-distended, decreased bowel sounds Extremities: edema, no tenderness, no cyanosis Laboratory Tests Test 01/29/21 03:25 01/29/21 09:25 White Blood Count 5.5 K/UL (4.8-10.8) Red Blood Count 4.08 M/UL (4.70-6.10) L Hemoglobin 11.5 G/DL (14.2-18.0) L Hematocrit 37.1 % (42.0-52.0) L Mean Corpuscular Volume 91 FL (80-99) Mean Corpuscular Hemoglobin 28.2 PG (27.0-31.0) Mean Corpuscular Hemoglobin Concent 31.0 G/DL (32.0-36.0) L Red Cell Distribution Width 15.4 % (11.6-14.8) H Platelet Count 166 K/UL (150-450) Mean Platelet Volume 8.7 FL (6.5-10.1) Neutrophils (%) (Auto) 69.2 % (45.0-75.0) Lymphocytes (%) (Auto) 16.3 % (20.0-45.0) L Monocytes (%) (Auto) 7.6 % (1.0-10.0) Eosinophils (%) (Auto) 4.9 % (0.0-3.0) H Basophils (%) (Auto) 2.0 % (0.0-2.0) Prothrombin Time 32.5 SEC (9.30-11.50) H Prothromb Time International Ratio 3.2 (0.9-1.1) H Sodium Level 141 MMOL/L (136-145) Potassium Level 3.7 MMOL/L (3.5-5.1) Chloride Level 105 MMOL/L (98-107) Carbon Dioxide Level 25 MMOL/L (21-32) Anion Gap 11 mmol/L (5-15) Blood Urea Nitrogen 5 mg/dL (7-18) L Creatinine 0.6 MG/DL (0.55-1.30) Estimat Glomerular Filtration Rate > 60 mL/min (>60) Glucose Level 227 MG/DL (74-106) H Calcium Level 8.5 MG/DL (8.5-10.1) Phosphorus Level 3.2 MG/DL (2.5-4.9) Magnesium Level 1.6 MG/DL (1.8-2.4) L Cortisol AM Sample Pending Arterial Blood pH 7.381 (7.350-7.450) Arterial Blood Partial Pressure CO2 45.3 mmHg (35.0-45.0) H Arterial Blood Partial Pressure O2 70.4 mmHg (75.0-100.0) L Arterial Blood HCO3 26.3 mmol/L (22.0-26.0) H Arterial Blood Oxygen Saturation 93.5 % (95-100) L Arterial Blood Base Excess 0.8 (-2-2) Miguelito Test Positive Plan Problems: (1) COPD (chronic obstructive pulmonary disease) (2) Essential hypertension (3) Schizophrenia (4) Obesity (5) Diabetes mellitus type 2 in obese (6) History of hydrocephalus (7) Anticoagulant long-term use (8) Bipolar 1 disorder (9) History of deep venous thrombosis or pulmonary embolus (10) Acute hypercapnic respiratory failure (11) Sepsis Assessment & Plan: 60-year-old male Covid positive respiratory insufficiency and severe decline being prone intubated on vent support labs noted septic ill- appearing has been developing wound around the face from ET tube.Receiv ed report from [facility] pt is being proned and was observed to have developed a blood blister under vent tape on L cheek and L earlobe. Skin assessed and pt was observed to have a blood blister that is 50% de-capped,50% intact. Intact Blood Blister noted to L earlobe. Skin Barrier applied to affected areas. Optifoam Thin foam placed between vent anchor and pt's skin. Optifoam thin placed to R cheek under Vent tape, on Bridge of nose and both earlobes. Given patient's critical status current care plan and findings nutritional optimization is strongly encouraged Covid nutrition plan initiated. All Covid precautions are being taken. Imaging reviewed. Will follow with care plan. Thank you [facility] participation care Tx.Plan: Maintain Optifoam Thin foam to R and L cheeks,Bridge of Nose and Both Ears . Change every 7 days and prn.( May request Optifoam Thin from [facility] dept). APM/PEPE Mattress overlay DAILY ESTIMATED NEEDS: Needs based on Critical care, pulmonary, obese 73.7kg abw 22-28 kcals/kg 0478-1693 total kcals 1.2-2 g protein/kg 88-147 g total protein 25-30 mL/kg 3679-5453 total fluid mLs NUTRITION DIAGNOSIS: Altered nutrition related lab values r/t steroidal meds, clinical status as evidenced by febrile on adm (102.5), elevated BG (270 287) on solumedrol, elevated lipid panel (Triglycerides 333, Chol 370, LDL 150). CURRENT TF:Vital @30ml/hr, now Nepro @30 ENTERAL NUTRITION RECOMMENDATIONS: NEPRO @30ml/hr while supine to provide x8 hrs feeds: 360ml, 648 kcal, 29g pro, 262ml free H2O - Feed at rate best tolerated, currently not meeting est needs d/t proning and aspiration risk w/ supine feeds limited to 8hrs/day. - W/ reduced aspiration risk rec feedings to total Volume of 900ml/day of Nepro as medically able. - Monitor tolerance, position/HOB >30 degrees, hemodynamic stability and ability to increase to meet est kcal and pro needs. - With increase pressor support, rec trophic feeds of 10ml/hr for gut integrity. - When tolerating TF at goal add Prosource BID to better meet est pro needs. ADDITIONAL RECOMMENDATIONS: 1) Now intubated, TF recs above when off proning (8hrs feeds) 2) Obtain calibrated bedscale wts 3) HgA1C/ elevated BG Need for niss while on D5 4) Lytes daily; replete as needed 5) Monitor triglycerides, TF tolerance, hemodynamic stability. (12) Respiratory failure with hypoxia Assessment & Plan: cont weaning vent wean pressors not ready for trach (13) Pneumonia due to COVID-19 virus (14) Hyperkalemia (15) DMII (diabetes mellitus, type 2) Ki Strong Jan 29, 2021 10:47
[2021-01-29] MEDS ORDERED: Heparin1,000 units/500ml Premix(Conc:2 units/ml) IV PRN (11:45)
[2021-01-29] MEDS ORDERED: Lidocaine 1% Plain 30 ml INJ PRN (11:45)
[2021-01-29] MEDS: fentaNYL 2500mcg/NS 250ml 250 ML IV PRN (12:30)
--- NOTE | 2021-01-29 13:13 | Nephrology Progress Note ---
Assessment/Plan Problem List: (1) Hyperkalemia (2) Pneumonia due to COVID-19 virus (3) Respiratory failure with hypoxia (4) Obesity (5) Schizophrenia (6) DMII (diabetes mellitus, type 2) Assessment Hyperkalemia Stable renal parameters Hyperglycemia Covid pneumonia due to COVID-19 virus Acute respiratory failure with hypoxia requiring mechanical ventilation History of COPD History of DVT, pulmonary emboli Obese Hypertension History of diabetes Psych condition, schizophrenia, bipolar disease Plan January 29: Status quo. Labs reviewed. Low magnesium addressed. Discussed with JOHAN Ratliff. Continue per consultants. January 28: Status quo. Labs and medication list reviewed. K-Phos supplement ordered. Continue per current treatment plan. January 27: Patient remains full code. Intubated on ventilator. FiO2 50%. Labs reviewed. Renal parameters stable. Medication list reviewed. January 26: Full code. Intubated. On ventilator. FiO2 65%. No CHEM panel drawn today. Continue per consultants. January 25: Status unchanged. Blood pressure low. Remains full code on ventilator. Continue per consultants. Medication list reviewed. INR is 3.8 today. January 24: Status quo. Intubated on ventilator and full code. Labs reviewed. Medication list reviewed. Continue per consultants. January 23: Patient on prone position. IntubatedFiO2 65%. Renal parameters stable. Continue per consultants. Date hospitalization. Possible trach?. January 22: FiO2 50%. Prone position. Labs reviewed. Stable from renal standpoint of view. Continue per consultants. January 21: Full code. Intubated on ventilator. FiO2 40%. Labs reviewed. Renal parameters stable. Continue per consultants. January 20: Status unchanged. Full code. On ventilator. Chest x-ray reviewed. IV fluid discontinued. Potassium supplement given. 1 dose of Lasix given. Albumin bolus given. Midodrine started. Will monitor renal parameters and electrolytes. Discussed with JOHAN Mohamud. January 19: Labs reviewed. Renal parameters stable. Remains full code intubated on ventilator. FiO2 50%. Continue per consultants. January 18: Full code. Intubated. On ventilator. FiO2 down to 35%. No labs drawn today. Continue to monitor renal parameters and electrolytes. January 17: Full code. Intubated on ventilator. FiO2 remains at 60%. Labs reviewed. Renal parameters stable. January 16: Full code. Intubated. Labs reviewed. Renal parameters stable. FiO2 60%. Continue per consultants. January 15: Patient remains intubated and full code. Labs reviewed. Stable renal parameters. January 14: Patient full code. Intubated on ventilator. On prone position until 5 PM. Labs reviewed. Stable from renal standpoint of view. January 13: Labs reviewed. Renal parameters stable. Continue per consultants. Patient remain full code and intubated on ventilator. January 12: Labs reviewed. Renal parameters stable. Patient remains full code. Remains intubated on ventilator and on prone position. Continue per consultants. January 11: Labs reviewed. Renal parameters stable. Continue per consultants. January 10: Labs reviewed. Renal parameters stable. Continue per consultants. Change IV to half-normal saline Kayexalate via NG tube for high potassium Monitor electrolytes and renal parameters Per orders, per consultants Subjective ROS Limited/Unobtainable: Yes Objective Objective Last 24 Hour Vital Signs Date Time Temp Pulse Resp B/P (MAP) Pulse Ox O2 Delivery O2 Flow Rate FiO2 01/29/21 13:00 98 22 108/64 (79) 100 01/29/21 12:30 24 118/88 Mechanical Ventilator 50 01/29/21 12:00 Mechanical Ventilator 01/29/21 12:00 95 01/29/21 12:00 97.1 88 22 118/85 (96) 100 01/29/21 12:00 50 01/29/21 11:08 82 22 50 01/29/21 11:00 88 22 100/66 (77) 98 01/29/21 10:00 88 22 91/55 (67) 97 01/29/21 10:00 94/56 01/29/21 10:00 22 94/56 Mechanical Ventilator 50 01/29/21 09:30 92 22 100/57 (71) 97 01/29/21 09:15 85 22 113/69 (84) 97 01/29/21 09:00 113/69 01/29/21 09:00 22 113/69 Mechanical Ventilator 50 01/29/21 09:00 84 22 110/62 (78) 96 01/29/21 08:45 81 22 114/64 (81) 96 01/29/21 08:30 80 22 111/69 (83) 96 01/29/21 08:15 79 22 110/71 (84) 95 01/29/21 08:00 50 01/29/21 08:00 91 01/29/21 08:00 Mechanical Ventilator 01/29/21 08:00 110/71 01/29/21 08:00 22 110/71 Mechanical Ventilator 50 01/29/21 08:00 99.8 80 22 112/70 (84) 95 01/29/21 07:54 80 22 50 01/29/21 07:45 83 22 118/71 (87) 98 01/29/21 07:30 79 22 115/68 (84) 99 01/29/21 07:15 76 22 115/69 (84) 99 01/29/21 07:00 114/67 01/29/21 07:00 22 114/67 Mechanical Ventilator 50 01/29/21 07:00 76 22 114/67 (83) 99 01/29/21 07:00 76 22 114/67 (83) 99 01/29/21 06:00 76 22 109/65 (80) 99 01/29/21 06:00 109/65 01/29/21 06:00 22 109/65 Mechanical Ventilator 50 01/29/21 05:30 80 22 110/69 (83) 97 01/29/21 05:25 78 22 50 01/29/21 05:00 70 22 109/70 (83) 98 01/29/21 05:00 109/70 01/29/21 05:00 22 109/70 Mechanical Ventilator 50 01/29/21 04:00 98.0 69 22 108/67 (81) 98 01/29/21 04:00 50 01/29/21 04:00 108/67 01/29/21 04:00 22 108/67 Mechanical Ventilator 50 01/29/21 04:00 Mechanical Ventilator 01/29/21 03:21 76 01/29/21 03:20 72 22 50 01/29/21 03:00 111/67 01/29/21 03:00 22 111/67 Mechanical Ventilator 50 01/29/21 03:00 78 22 111/67 (82) 100 01/29/21 02:00 66 22 130/80 (97) 100 01/29/21 02:00 130/80 01/29/21 02:00 22 130/80 Mechanical Ventilator 50 01/29/21 01:00 71 22 120/74 (89) 98 01/29/21 01:00 120/74 01/29/21 01:00 22 120/74 Mechanical Ventilator 50 01/29/21 00:59 75 22 50 01/29/21 00:00 Mechanical Ventilator 01/29/21 00:00 50 01/29/21 00:00 108/63 01/29/21 00:00 22 108/63 Mechanical Ventilator 50 01/29/21 00:00 98.4 79 22 108/63 (78) 98 01/28/21 23:39 20 102/57 Mechanical Ventilator 50 01/28/21 23:30 85 17 102/57 (72) 97 01/28/21 23:10 83 22 50 01/28/21 23:00 98/55 01/28/21 23:00 22 98/55 Mechanical Ventilator 50 01/28/21 23:00 81 22 95/53 (67) 98 01/28/21 22:30 81 3 98/53 (68) 98 01/28/21 22:00 94/51 01/28/21 22:00 17 94/51 Mechanical Ventilator 50 01/28/21 22:00 82 22 96/50 (65) 98 01/28/21 21:10 55 22 50 01/28/21 21:00 53 20 125/75 (92) 99 01/28/21 21:00 125/75 01/28/21 21:00 12 125/75 Mechanical Ventilator 50 01/28/21 20:33 112/66 01/28/21 20:00 76 01/28/21 20:00 98.6 70 0 110/72 (85) 98 01/28/21 20:00 Mechanical Ventilator 01/28/21 20:00 18 116/72 Mechanical Ventilator 50 01/28/21 19:45 74 2 110/68 (82) 99 01/28/21 19:38 69 22 50 01/28/21 19:30 74 17 103/61 (75) 99 01/28/21 19:15 78 15 103/59 (74) 98 01/28/21 19:00 79 11 117/66 (83) 99 01/28/21 18:45 69 21 117/69 (85) 98 01/28/21 18:30 63 17 111/72 (85) 98 01/28/21 18:29 62 22 111/72 (85) 99 01/28/21 18:15 64 19 108/74 (85) 98 01/28/21 18:00 66 22 108/74 (85) 98 01/28/21 18:00 67 18 109/74 (86) 98 01/28/21 17:45 73 21 115/70 (85) 98 01/28/21 17:30 63 21 113/63 (80) 98 01/28/21 17:30 76 20 113/63 (80) 99 01/28/21 17:20 50 01/28/21 17:20 50 01/28/21 17:15 75 10 110/67 (81) 99 01/28/21 17:00 77 21 110/61 (77) 98 01/28/21 16:45 74 22 110/63 (79) 98 01/28/21 16:30 99.1 77 21 113/65 (81) 98 01/28/21 16:30 74 22 114/61 (78) 98 01/28/21 16:15 80 22 108/62 (77) 98 01/28/21 16:00 98.0 73 20 113/65 (81) 98 01/28/21 16:00 82 22 105/61 (76) 98 01/28/21 16:00 Mechanical Ventilator 01/28/21 16:00 78 01/28/21 16:00 40 01/28/21 15:54 82 22 40 01/28/21 15:45 83 22 108/57 (74) 98 01/28/21 15:30 81 22 108/60 (76) 98 01/28/21 15:15 79 22 110/56 (74) 97 01/28/21 15:00 76 22 113/71 (85) 98 01/28/21 15:00 22 113/71 Mechanical Ventilator 40 01/28/21 15:00 75 22 113/71 (85) 98 01/28/21 14:45 79 22 116/68 (84) 97 01/28/21 14:30 77 22 109/64 (79) 98 01/28/21 14:30 76 22 109/64 (79) 97 01/28/21 14:15 76 22 101/61 (74) 97 01/28/21 14:00 22 93/48 Mechanical Ventilator 40 01/28/21 14:00 80 22 93/49 (64) 97 01/28/21 14:00 79 22 93/49 (64) 97 01/28/21 13:45 86 20 90/50 (63) 97 01/28/21 13:30 80 22 112/72 (85) 97 01/28/21 13:30 75 23 112/72 (85) 98 01/28/21 13:15 73 22 102/62 (75) 98 Intake and Output 01/28/21 01/29/21 19:00 07:00 Intake Total 1687.238 ml 1614.2325 ml Output Total 775 ml 980 ml Balance 912.238 ml 634.2325 ml Free Water 300 ml 60 ml IV Total 1087.238 ml 1194.2325 ml Tube Feeding 300 ml 360 ml Output Urine Total 775 ml 980 ml # Bowel Movements 1 Laboratory Tests 01/29/21 03:25: White Blood Count 5.5, Red Blood Count 4.08L, Hemoglobin 11.5L, Hematocrit 37.1L , Mean Corpuscular Volume 91, Mean Corpuscular Hemoglobin 28.2, Mean Corpuscular Hemoglobin Concent 31.0L, Red Cell Distribution Width 15.4H, Platelet Count 166, Mean Platelet Volume 8.7, Neutrophils (%) (Auto) 69.2, Lymphocytes (%) (Auto) 16.3L, Monocytes (%) (Auto) 7.6, Eosinophils (%) (Auto) 4.9H, Basophils (%) (Auto) 2.0, Prothrombin Time 32.5H, Prothromb Time International Ratio 3.2H, Sodium Level 141, Potassium Level 3.7, Chloride Level 105, Carbon Dioxide Level 25, Anion Gap 11, Blood Urea Nitrogen 5L, Creatinine 0.6, Estimat Glomerular Filtration Rate > 60, Glucose Level 227H, Calcium Level 8.5, Phosphorus Level 3.2, Magnesium Level 1.6L, Cortisol AM Sample [Pending] 01/29/21 09:25: Arterial Blood pH 7.381, Arterial Blood Partial Pressure CO2 45.3H, Arterial Blood Partial Pressure O2 70.4L, Arterial Blood HCO3 26.3H, Arterial Blood Oxygen Saturation 93.5L, Arterial Blood Base Excess 0.8, Miguelito Test Positive Height (Feet): 5 Height (Inches): 5.00 Weight (Pounds): 233 General Appearance: no apparent distress EENT: other - Intubated on ventilator Cardiovascular: tachycardia Respiratory/Chest: decreased breath sounds Abdomen: distended Avi Frye MD Jan 29, 2021 13:13
--- NOTE | 2021-01-29 15:34 | Diagnostic Imaging Report ---
Indication: Shortness of breath Technique: One view of the chest Comparison: 01/25/2021 Findings: Stable satisfactory tube positions. Bilateral edema versus infiltrates appear slightly increased. There are new or increased bilateral pleural effusions. Impression: Increasing bilateral infiltrates, new or increased bilateral pleural effusions, since previous study
--- NOTE | 2021-01-29 17:12 | Internal Med Progress Note ---
Subjective Date of Service: Jan 29, 2021 Physician Name Vickey Brown Attending Physician Geovanny Bradley MD Current Medications Medications (Trade) Dose Ordered Sig/Johnny Route PRN Reason Start Time Stop Time Status Last Admin Dose Admin Acetaminophen (Tylenol) 650 mg Q6H PRN NG Temp >100.5 01/09/21 09:15 02/08/21 09:14 01/26/21 02:05 Acetaminophen (Tylenol) 650 mg Q6H PRN NG Mild Pain (Pain Scale 1-3) 01/09/21 09:15 02/08/21 09:14 01/27/21 05:10 Albuterol Sulfate (Proventil MDI) 2 puff Q6HRT INH 01/02/21 19:00 04/02/21 18:59 01/29/21 14:00 Benztropine Mesylate (Cogentin) 1 mg EVERY 12 HOURS NG 01/09/21 09:15 02/01/21 09:14 01/29/21 09:02 Chlorhexidine Gluconate (Myranda-Hex 2%) 1 applic DAILY@2000 TOPIC 01/29/21 20:00 04/29/21 19:59 Dextrose (Dextrose 50%) 25 ml Q30M PRN IV Hypoglycemia 01/06/21 23:45 04/06/21 23:44 Dextrose (Dextrose 50%) 50 ml Q30M PRN IV Hypoglycemia 01/06/21 23:45 04/06/21 23:44 Fentanyl Citrate 250 ml @ 1 mls/hr Q24H PRN IV Agitation 01/26/21 19:00 01/30/21 18:59 01/29/21 12:30 Heparin Sodium/ Sodium Chloride (Heparin 1000 units/500ml Premix) 1,000 unit ONCE PRN IV PICC LINE PLACEMENT 01/29/21 11:45 01/31/21 11:44 Insulin Aspart (NovoLOG) EVERY 6 HOURS SUBQ 01/09/21 12:00 04/04/21 16:29 01/29/21 12:44 Ipratropium [place] (Atrovent Inh) 1 puffs Q6HRT INH 01/02/21 19:00 02/01/21 18:59 01/29/21 13:59 Lansoprazole (Prevacid) 30 mg DAILY GT 01/24/21 09:00 02/15/21 08:59 01/29/21 09:02 Lidocaine HCl (Xylocaine 1% 30ml) 30 ml ONCE PRN INJ PICC LINE PLACEMENT 01/29/21 11:45 01/31/21 11:44 Midazolam HCl 200 ml @ 0 mls/hr Q24H PRN IV Agitation 01/24/21 00:30 01/31/21 00:29 01/27/21 08:05 Midodrine (Pro-Amatine) 10 mg Q8HR ORAL 01/20/21 14:00 04/20/21 13:59 01/29/21 14:28 Norepinephrine Bitartrate 8 mg/ Dextrose 258 ml @ 0 mls/hr Q24H IV 01/28/21 20:00 01/31/21 19:59 01/28/21 20:33 Nystatin (Nystatin) 5 ml QID ORAL 01/25/21 18:00 02/01/21 17:59 01/29/21 12:31 Ondansetron HCl (Zofran) 4 mg Q4H PRN IVP Nausea & Vomiting 01/02/21 08:15 02/01/21 08:14 Piperacillin Sod/ Tazobactam Sod 3.375 gm/Sodium Chloride 110 ml @ 27.5 mls/hr Q8H IVPB 01/25/21 10:00 02/01/21 09:59 01/29/21 09:03 Potassium Chloride (K-Dur) 20 meq TWICE A DAY NG 01/20/21 13:00 04/20/21 12:59 01/29/21 09:02 Quetiapine Fumarate (SEROqueL) 100 mg Q12HR ORAL 01/20/21 15:00 03/06/21 14:59 01/29/21 09:02 Valproic Acid (Depakene) 500 mg Q12HR GT 01/22/21 21:00 02/21/21 20:59 01/29/21 09:02 Vancomycin HCl 300 ml @ 150 mls/hr Q8H IVPB 01/27/21 11:00 02/01/21 02:59 01/29/21 12:29 Vancomycin HCl (Vanco pharmacy to dose) 1 ea DAILY PRN MISC Per rx protocol 01/25/21 08:15 02/24/21 08:14 Warfarin Sodium (Coumadin per pharmacy) 1 ea DAILY PRN MISC Per rx protocol 01/02/21 08:30 02/01/21 08:29 Allergies: Coded Allergies: No Known Allergies (Unverified , 01/02/21) ROS Limited/Unobtainable: Yes Subjective 60 YO M admitted with shortness of breath. Now respiratory failure. Cover for Alex Bee-DR Bradley. ICU. Intubated and sedated Objective Last Vital Signs Date Time Temp Pulse Resp B/P (MAP) Pulse Ox O2 Delivery O2 Flow Rate FiO2 01/29/21 17:00 112 22 150/91 (110) 98 01/29/21 16:00 98.1 01/29/21 16:00 50 01/29/21 12:30 Mechanical Ventilator 01/24/21 21:00 65.0 Laboratory Tests Test 01/29/21 03:25 01/29/21 09:25 White Blood Count 5.5 K/UL (4.8-10.8) Red Blood Count 4.08 M/UL (4.70-6.10) L Hemoglobin 11.5 G/DL (14.2-18.0) L Hematocrit 37.1 % (42.0-52.0) L Mean Corpuscular Volume 91 FL (80-99) Mean Corpuscular Hemoglobin 28.2 PG (27.0-31.0) Mean Corpuscular Hemoglobin Concent 31.0 G/DL (32.0-36.0) L Red Cell Distribution Width 15.4 % (11.6-14.8) H Platelet Count 166 K/UL (150-450) Mean Platelet Volume 8.7 FL (6.5-10.1) Neutrophils (%) (Auto) 69.2 % (45.0-75.0) Lymphocytes (%) (Auto) 16.3 % (20.0-45.0) L Monocytes (%) (Auto) 7.6 % (1.0-10.0) Eosinophils (%) (Auto) 4.9 % (0.0-3.0) H Basophils (%) (Auto) 2.0 % (0.0-2.0) Prothrombin Time 32.5 SEC (9.30-11.50) H Prothromb Time International Ratio 3.2 (0.9-1.1) H Sodium Level 141 MMOL/L (136-145) Potassium Level 3.7 MMOL/L (3.5-5.1) Chloride Level 105 MMOL/L (98-107) Carbon Dioxide Level 25 MMOL/L (21-32) Anion Gap 11 mmol/L (5-15) Blood Urea Nitrogen 5 mg/dL (7-18) L Creatinine 0.6 MG/DL (0.55-1.30) Estimat Glomerular Filtration Rate > 60 mL/min (>60) Glucose Level 227 MG/DL (74-106) H Calcium Level 8.5 MG/DL (8.5-10.1) Phosphorus Level 3.2 MG/DL (2.5-4.9) Magnesium Level 1.6 MG/DL (1.8-2.4) L Cortisol AM Sample Pending Arterial Blood pH 7.381 (7.350-7.450) Arterial Blood Partial Pressure CO2 45.3 mmHg (35.0-45.0) H Arterial Blood Partial Pressure O2 70.4 mmHg (75.0-100.0) L Arterial Blood HCO3 26.3 mmol/L (22.0-26.0) H Arterial Blood Oxygen Saturation 93.5 % (95-100) L Arterial Blood Base Excess 0.8 (-2-2) Miguelito Test Positive Microbiology Date/Time Source Procedure Growth Status 01/27/21 16:10 Blood Blood Culture - Preliminary NO GROWTH AFTER 24 HOURS Resulted 01/27/21 16:08 Blood Blood Culture - Preliminary NO GROWTH AFTER 24 HOURS Resulted Intake and Output 01/28/21 01/29/21 19:00 07:00 Intake Total 1687.238 ml 1614.2325 ml Output Total 775 ml 980 ml Balance 912.238 ml 634.2325 ml Free Water 300 ml 60 ml IV Total 1087.238 ml 1194.2325 ml Tube Feeding 300 ml 360 ml Output Urine Total 775 ml 980 ml # Bowel Movements 1 Objective Objective General: awake, responsive , confused. HEENT: NCAT, sclera anicteric, PERRL, EOMI. Neck: Supple, no significant jugular venous distention, Lungs: mech vent; decreased air at the bases, occasional crackles, no Wheeze. Heart: Regular rate and rhythm, normal S1/S2, no murmurs Abdomen: soft, nontender, nondistended. Normoactive bowel sound, obesity. / Rectal: Refused and deferred. Extremities: Left LE: No Cyanosis , clubbing or edema. Right LE AKA. Neuro: A&O x 2, Able to move all extremities Skin: warm, no rashes or lesions. Assessment/Plan Assessment/Plan Assessment/Plan Assessment/Plan (1) Pneumonia due to COVID-19 virus ICD Codes: U07.1 - COVID-19; J12.82 - Pneumonia due to coronavirus disease 2018 SNOMED: 810398230528132511 (2) Acute hypercapnic respiratory failure ICD Codes: J96.02 - Acute respiratory failure with hypercapnia SNOMED: 827286140 (3) Respiratory failure with hypoxia ICD Codes: J96.91 - Respiratory failure, unspecified with hypoxia SNOMED: 54238611223750409 Qualifiers: Qualified Codes: J96.01 - Acute respiratory failure with hypoxia (4) COPD (chronic obstructive pulmonary disease) ICD Codes: J44.9 - Chronic obstructive pulmonary disease, unspecified SNOMED: 56747525 (5) History of deep venous thrombosis or pulmonary embolus SNOMED: 099139499 (6) Obesity ICD Codes: E66.9 - Obesity, unspecified SNOMED: 893131340, 228454334 (7) Essential hypertension ICD Codes: I10 - Essential (primary) hypertension SNOMED: 11696905 (8) Diabetes mellitus type 2 in obese ICD Codes: E11.69 - Type 2 diabetes mellitus with other specified complication; E66.9 - Obesity, unspecified SNOMED: 79669371 (9) History of hydrocephalus ICD Codes: Z86.69 - Personal history of other diseases of the nervous system and sense organs SNOMED: 549627331 (10) Schizophrenia ICD Codes: F20.9 - Schizophrenia, unspecified SNOMED: 11076701 (11) Bipolar 1 disorder ICD Codes: F31.9 - Bipolar disorder, unspecified SNOMED: 639751672 (12) Anticoagulant long-term use ICD Codes: Z79.01 - [employer] (current) use of anticoagulants SNOMED: 611727410 13. Sepsis=gram pos cocci 14. thrush Assessment/Plan: Optimize pulmonary hygiene/mobilize as tolerated Non Rebreather mask>BIPAP>intubated S/P Remdesivir IV S/P Solu-Medrol 40 mg IV twice a day. Abx = zosyn and vanco F/U Cx's Monitor volumes and renal function DVT Px: Coumadin DC IV fluid Start diet Monitor blood glucose level closely. On levophed, fentanyl and propofol drips Pulmonary=Dr Luis ID=Dr Gomez Psych consult=Dr Gallegos Start seroquel at 1/2 previous dose continue nystatin await tracheostomy Vickey Brown MD Jan 29, 2021 17:12
[2021-01-29] MEDS: Dyna-Hex 2% Top Sol 2oz TOPIC SCH (20:11)
[2021-01-29] MEDS: NOREPINEPHRINE BITARTRATE IV SCH (20:11)
[2021-01-29] MEDS: D5W IV SCH (20:11)
[2021-01-29] MEDS: Abreva 10% cream 2gm TP SCH (20:12)
[2021-01-30] VITALS (49 sets, daily range): BP systolic 103–148; BP diastolic 63–97
[2021-01-30] MEDS: Albuterol 90mcg Inhaler 8gm INH SCH ×4 (00:23→19:13)
[2021-01-30] MEDS: Ipratropium Bromide Inhaler INH SCH ×4 (00:23→19:13)
[2021-01-30] MEDS: Piperacillin/Tazobactam 3.375 GM in NS 110 ML IVPB SCH ×3 (01:45→17:10)
[2021-01-30] MEDS: Vancomycin 1.5gm/300ml Premix 300 ML IVPB SCH ×3 (02:58→19:26)
[2021-01-30 05:05] LABS: HEMATOCRIT 35.1 % (42.0-52.0); HEMOGLOBIN 11.1 G/DL (14.2-18.0); MEAN CORPUSCULAR VOLUME 91 FL (80-99); PLATELET COUNT 189 K/UL (150-450); RED BLOOD COUNT 3.87 M/UL (4.70-6.10); RED CELL DISTRIBUTION WIDTH 15.3 % (11.6-14.8); WHITE BLOOD COUNT 6.4 K/UL (4.8-10.8)
[2021-01-30 05:18] LABS: INR 2.9 (0.9-1.1)
[2021-01-30] MEDS: Midodrine 10mg tab ORAL SCH ×3 (05:37→21:46)
[2021-01-30] MEDS: NovoLOG Insulin Flexpen SUBQ SCH ×3 (05:39→18:34)
[2021-01-30 06:02] LABS: PHOSPHORUS 3.5 MG/DL (2.5-4.9)
[2021-01-30 06:08] LABS: ALANINE AMINOTRANSFERASE 28 U/L (12-78); ALBUMIN 1.8 G/DL (3.4-5.0); ALBUMIN/GLOBULIN RATIO 0.4 (1.0-2.7); ALKALINE PHOSPHATASE 134 U/L (46-116); ANION GAP 12 mmol/L (5-15); ASPARTATE AMINO TRANSFERASE 19 U/L (15-37); BILIRUBIN,TOTAL 0.2 MG/DL (0.2-1.0); BLOOD UREA NITROGEN 5 mg/dL (7-18); CALCIUM 8.7 MG/DL (8.5-10.1); CARBON DIOXIDE 24 MMOL/L (21-32); CHLORIDE 105 MMOL/L (98-107); CREATININE 0.7 MG/DL (0.55-1.30); POTASSIUM 3.9 MMOL/L (3.5-5.1); SODIUM 140 MMOL/L (136-145)
[2021-01-30] MEDS: fentaNYL 2500mcg/NS 250ml 250 ML IV PRN ×2 (06:10→23:09)
[2021-01-30] MEDS: Abreva 10% cream 2gm TP SCH ×5 (07:00→19:26)
[2021-01-30] MEDS: Nystatin Susp 500,000 units/5ml ORAL SCH ×4 (08:52→20:53)
[2021-01-30] MEDS: Benztropine 1mg tab NG SCH ×2 (08:52→20:52)
[2021-01-30] MEDS: Valproic Acid 250mg/5ml Liquid GT SCH ×2 (08:52→20:52)
--- NOTE | 2021-01-30 09:08 | Infectious Diseases Prog Note ---
Assessment/Plan 60yo M with: Septic SHock Receurrent Gram postiive bacteremia r/o gentry infection -01/25 Bcx 2/ sets GPC clustesr Staph epi bacteremia, m/l skin contaminant 01/10 BCx 12/01 +Staph epi 01/13 BCx Neg 01/25 BCx CoNS 01/01 01/28 BCx - Pend COVID pna, severe Acute hypoxia 01/01 COVID pna >> intubated 01/06- 50% FIo2 Febrile to 103; imporving Normal WBC Elevated AST 51 01/01 Tested positive for COVID at [facility] 01/02 COVID PCR positive 01/02 BCx NTD CXR: Multifocal pna MRSA nares neg 01/06 Intubated in ICU CXR: 1. Appropriately positioned endotracheal and enteric tubes. 2. Stable bilateral airspace disease. 01/07 Resp cx +Yasmine albicans (colonizer) 01/11 CXR: Interval improved bilateral lung aeration. Bibasilar infiltrates/atelectasis. Cr 1.1 HIV screen neg PMH: DM2 COPD HTN SNF resident Plan: Cont Vancomycin #6/7 and Zosyn #6/7 Lux Cx CXR Monitor WBCs Monitor temps 01/22/21 steroids #19, on methylpred 20 IV q12 - defer course to Pulm/Primary, now tapering 01/19/21 SP Zosyn #10 01/14 SP vanco IV #1 01/09 SP CTX #7 01/07 SP azithro #5, RDV #5 This institution does not have access to convalescent plasma and only recommended to give in setting of clinical trial Monitor temp curve, hemodynamics Monitor resp status Bcx2 remove central line D/w RN Thank you for this consult. [facility] will continue to follow. Subjective Allergies: Coded Allergies: No Known Allergies (Unverified , 01/02/21) Afebrile Remains on Vent 50% O2 No Leukocytosis IDA Objective Last 24 Hour Vital Signs Date Time Temp Pulse Resp B/P (MAP) Pulse Ox O2 Delivery O2 Flow Rate FiO2 01/30/21 08:00 50 01/30/21 08:00 Mechanical Ventilator 01/30/21 07:46 90 01/30/21 07:45 93 22 117/76 (90) 01/30/21 07:30 106 34 116/77 (90) 01/30/21 07:15 130 28 115/74 (88) 97 01/30/21 07:00 103 36 115/80 (92) 97 01/30/21 06:10 21 109/65 Mechanical Ventilator 50 01/30/21 06:00 115/55 01/30/21 06:00 21 122/51 Mechanical Ventilator 50 01/30/21 06:00 119 33 109/65 (80) 99 01/30/21 05:30 115 46 128/81 (97) 100 01/30/21 05:00 120 21 126/90 (102) 100 01/30/21 05:00 110/73 01/30/21 05:00 22 129/71 Mechanical Ventilator 50 01/30/21 04:30 85 22 123/70 (87) 100 01/30/21 04:00 Mechanical Ventilator 01/30/21 04:00 90 01/30/21 04:00 50 01/30/21 04:00 104/63 01/30/21 04:00 22 108/64 Mechanical Ventilator 50 01/30/21 04:00 98.2 93 22 110/68 (82) 94 01/30/21 03:30 111 29 112/66 (81) 99 01/30/21 03:12 87 22 50 01/30/21 03:00 84 22 113/67 (82) 99 01/30/21 03:00 119/73 01/30/21 03:00 22 113/73 Mechanical Ventilator 50 01/30/21 02:30 82 22 119/72 (88) 99 01/30/21 02:00 84 22 116/71 (86) 99 01/30/21 02:00 119/74 01/30/21 02:00 22 119/74 Mechanical Ventilator 01/30/21 01:45 119/73 01/30/21 01:30 83 22 118/73 (88) 100 01/30/21 01:00 82 22 119/74 (89) 99 01/30/21 01:00 119/73 01/30/21 01:00 22 119/74 Mechanical Ventilator 50 01/30/21 00:00 90 22 104/65 (78) 99 01/30/21 00:00 80 01/30/21 00:00 50 01/30/21 00:00 96/53 01/30/21 00:00 21 96/53 Mechanical Ventilator 50 01/30/21 00:00 99.0 01/30/21 00:00 Mechanical Ventilator 01/29/21 23:30 92 22 100/58 (72) 99 01/29/21 23:03 90 22 50 01/29/21 23:00 91 22 105/63 (77) 99 01/29/21 23:00 104/65 01/29/21 23:00 21 104/65 Mechanical Ventilator 50 01/29/21 22:30 92 22 112/69 (83) 99 01/29/21 22:00 114/68 01/29/21 22:00 22 114/68 Mechanical Ventilator 50 01/29/21 22:00 84 22 117/73 (88) 100 01/29/21 21:30 80 22 127/77 (94) 100 01/29/21 21:00 121/75 01/29/21 21:00 22 121/75 Mechanical Ventilator 50 01/29/21 21:00 76 22 125/80 (95) 100 01/29/21 20:45 78 22 126/81 (96) 100 01/29/21 20:30 79 22 110/76 (87) 100 01/29/21 20:15 84 22 81/47 (58) 99 01/29/21 20:11 99/52 01/29/21 20:00 99.2 84 22 94/55 (68) 100 01/29/21 20:00 Mechanical Ventilator 01/29/21 20:00 80 01/29/21 20:00 81/47 01/29/21 20:00 21 81/47 Mechanical Ventilator 50 01/29/21 19:45 83 22 104/65 (78) 100 01/29/21 19:30 83 22 109/69 (82) 100 01/29/21 19:05 83 22 50 01/29/21 19:00 103/66 01/29/21 19:00 23 103/66 Mechanical Ventilator 50 01/29/21 19:00 84 22 106/67 (80) 99 01/29/21 18:00 83 22 98/63 (75) 99 01/29/21 18:00 98/63 01/29/21 18:00 22 98/63 Mechanical Ventilator 50 01/29/21 17:00 112 22 150/91 (110) 98 01/29/21 17:00 101/55 01/29/21 17:00 26 101/55 Mechanical Ventilator 50 01/29/21 16:00 80 01/29/21 16:00 98.1 80 22 113/77 (89) 99 01/29/21 16:00 50 01/29/21 16:00 106/69 01/29/21 16:00 22 106/69 Mechanical Ventilator 50 01/29/21 16:00 Mechanical Ventilator 01/29/21 15:05 91 22 50 01/29/21 15:00 113/78 01/29/21 15:00 22 113/78 Mechanical Ventilator 50 01/29/21 15:00 87 22 113/78 (90) 98 01/29/21 14:15 92 22 109/72 (84) 97 01/29/21 14:00 106 24 115/76 (89) 95 01/29/21 14:00 109/72 01/29/21 14:00 22 109/72 Mechanical Ventilator 50 01/29/21 14:00 91 22 109/72 (84) 97 01/29/21 13:59 89 22 50 01/29/21 13:45 99 24 111/71 (84) 01/29/21 13:30 95 22 112/79 (90) 98 01/29/21 13:15 97 23 106/68 (81) 97 01/29/21 13:00 106/68 01/29/21 13:00 22 106/68 Mechanical Ventilator 50 01/29/21 13:00 98 22 108/64 (79) 100 01/29/21 13:00 106 23 108/64 (79) 01/29/21 12:45 89 22 118/85 (96) 100 01/29/21 12:30 97 22 93/59 (70) 98 01/29/21 12:30 24 118/88 Mechanical Ventilator 50 01/29/21 12:15 124 40 118/88 (98) 99 01/29/21 12:00 Mechanical Ventilator 01/29/21 12:00 95 01/29/21 12:00 90 22 104/66 (79) 99 01/29/21 12:00 97.1 88 22 118/85 (96) 100 01/29/21 12:00 118/88 01/29/21 12:00 32 118/88 Mechanical Ventilator 50 01/29/21 12:00 50 01/29/21 11:45 83 22 116/78 (91) 97 01/29/21 11:30 85 22 100/66 (77) 97 01/29/21 11:15 83 22 87/54 (65) 98 01/29/21 11:08 82 22 50 01/29/21 11:00 81 22 94/56 (69) 98 01/29/21 11:00 94/56 01/29/21 11:00 22 94/56 Mechanical Ventilator 50 01/29/21 11:00 88 22 100/66 (77) 98 01/29/21 10:45 82 22 94/61 (72) 98 01/29/21 10:30 84 22 90/54 (66) 97 01/29/21 10:15 86 22 91/57 (68) 97 01/29/21 10:00 90 22 91/55 (67) 96 01/29/21 10:00 88 22 91/55 (67) 97 01/29/21 10:00 94/56 01/29/21 10:00 22 94/56 Mechanical Ventilator 50 01/29/21 09:45 91 22 99/57 (71) 97 01/29/21 09:30 92 22 100/57 (71) 97 01/29/21 09:15 85 22 113/69 (84) 97 Height (Feet): 5 Height (Inches): 5.00 Weight (Pounds): 233 Gen: NAD on Vent 50% O2, Not following HEENT: NCAT, ETT Pulm: BL chest rise, RRR Skin: No visible rashes Neuro: Not following Microbiology Date/Time Source Procedure Growth Status 01/27/21 16:10 Blood Blood Culture - Preliminary NO GROWTH AFTER 24 HOURS Resulted 01/27/21 16:08 Blood Blood Culture - Preliminary NO GROWTH AFTER 24 HOURS Resulted Laboratory Tests Test 01/29/21 09:25 01/30/21 04:00 Arterial Blood pH 7.381 (7.350-7.450) Arterial Blood Partial Pressure CO2 45.3 mmHg (35.0-45.0) H Arterial Blood Partial Pressure O2 70.4 mmHg (75.0-100.0) L Arterial Blood HCO3 26.3 mmol/L (22.0-26.0) H Arterial Blood Oxygen Saturation 93.5 % (95-100) L Arterial Blood Base Excess 0.8 (-2-2) Miguelito Test Positive White Blood Count 6.4 K/UL (4.8-10.8) Red Blood Count 3.87 M/UL (4.70-6.10) L Hemoglobin 11.1 G/DL (14.2-18.0) L Hematocrit 35.1 % (42.0-52.0) L Mean Corpuscular Volume 91 FL (80-99) Mean Corpuscular Hemoglobin 28.6 PG (27.0-31.0) Mean Corpuscular Hemoglobin Concent 31.5 G/DL (32.0-36.0) L Red Cell Distribution Width 15.3 % (11.6-14.8) H Platelet Count 189 K/UL (150-450) Mean Platelet Volume 8.6 FL (6.5-10.1) Neutrophils (%) (Auto) % (45.0-75.0) Lymphocytes (%) (Auto) % (20.0-45.0) Monocytes (%) (Auto) % (1.0-10.0) Eosinophils (%) (Auto) % (0.0-3.0) Basophils (%) (Auto) % (0.0-2.0) Neutrophils % (Manual) Pending Lymphocytes % (Manual) Pending Platelet Estimate Pending Platelet Morphology Pending Prothrombin Time 29.2 SEC (9.30-11.50) H Prothromb Time International Ratio 2.9 (0.9-1.1) H Activated Partial Thromboplast Time 40 SEC (23-33) H Sodium Level 140 MMOL/L (136-145) Potassium Level 3.9 MMOL/L (3.5-5.1) Chloride Level 105 MMOL/L (98-107) Carbon Dioxide Level 24 MMOL/L (21-32) Anion Gap 12 mmol/L (5-15) Blood Urea Nitrogen 5 mg/dL (7-18) L Creatinine 0.7 MG/DL (0.55-1.30) Estimat Glomerular Filtration Rate > 60 mL/min (>60) Glucose Level 229 MG/DL (74-106) H Calcium Level 8.7 MG/DL (8.5-10.1) Phosphorus Level 3.5 MG/DL (2.5-4.9) Magnesium Level 1.6 MG/DL (1.8-2.4) L Total Bilirubin 0.2 MG/DL (0.2-1.0) Aspartate Amino Transf (AST/SGOT) 19 U/L (15-37) Alanine Aminotransferase (ALT/SGPT) 28 U/L (12-78) Alkaline Phosphatase 134 U/L (46-116) H C-Reactive Protein, Quantitative 20.9 mg/dL (0.00-0.90) H Pro-B-Type Natriuretic Peptide 180 pg/mL (0-125) H Total Protein 6.0 G/DL (6.4-8.2) L Albumin 1.8 G/DL (3.4-5.0) L Globulin 4.2 g/dL Albumin/Globulin Ratio 0.4 (1.0-2.7) L Current Medications Medications (Trade) Dose Ordered Sig/Johnny Route PRN Reason Start Time Stop Time Status Last Admin Dose Admin Acetaminophen (Tylenol) 650 mg Q6H PRN NG Temp >100.5 01/09/21 09:15 02/08/21 09:14 01/26/21 02:05 Acetaminophen (Tylenol) 650 mg Q6H PRN NG Mild Pain (Pain Scale 1-3) 01/09/21 09:15 02/08/21 09:14 01/27/21 05:10 Albuterol Sulfate (Proventil MDI) 2 puff Q6HRT INH 01/02/21 19:00 04/02/21 18:59 01/30/21 07:08 Benztropine Mesylate (Cogentin) 1 mg EVERY 12 HOURS NG 01/09/21 09:15 02/01/21 09:14 01/30/21 08:52 Chlorhexidine Gluconate (Myranda-Hex 2%) 1 applic DAILY@1999 TOPIC 01/29/21 20:00 04/29/21 19:59 01/29/21 20:11 Dextrose (Dextrose 50%) 25 ml Q30M PRN IV Hypoglycemia 01/06/21 23:45 04/06/21 23:44 Dextrose (Dextrose 50%) 50 ml Q30M PRN IV Hypoglycemia 01/06/21 23:45 04/06/21 23:44 Docosanol (Abreva) 1 gm FIVE TIMES A DAY TP 01/29/21 20:00 04/29/21 19:59 01/30/21 07:00 Fentanyl Citrate 250 ml @ 1 mls/hr Q24H PRN IV Agitation 01/26/21 19:00 01/30/21 18:59 01/30/21 06:10 Heparin Sodium/ Sodium Chloride (Heparin 1000 units/500ml Premix) 1,000 unit ONCE PRN IV PICC LINE PLACEMENT 01/29/21 11:45 01/31/21 11:44 Insulin Aspart (NovoLOG) EVERY 6 HOURS SUBQ 01/09/21 12:00 04/04/21 16:29 01/30/21 05:39 Ipratropium [place] (Atrovent Inh) 1 puffs Q6HRT INH 01/02/21 19:00 02/01/21 18:59 01/30/21 07:08 Lansoprazole (Prevacid) 30 mg DAILY GT 01/24/21 09:00 02/15/21 08:59 01/30/21 08:52 Lidocaine HCl (Xylocaine 1% 30ml) 30 ml ONCE PRN INJ PICC LINE PLACEMENT 01/29/21 11:45 01/31/21 11:44 Magnesium Sulfate 100 ml @ 100 mls/hr Q1H IVPB 01/30/21 08:30 01/30/21 10:29 01/30/21 08:52 Midazolam HCl 200 ml @ 0 mls/hr Q24H PRN IV Agitation 01/24/21 00:30 01/31/21 00:29 01/27/21 08:05 Midodrine (Pro-Amatine) 10 mg Q8HR ORAL 01/20/21 14:00 04/20/21 13:59 01/30/21 05:37 Norepinephrine Bitartrate 8 mg/ Dextrose 258 ml @ 0 mls/hr Q24H IV 01/28/21 20:00 01/31/21 19:59 01/29/21 20:11 Nystatin (Nystatin) 5 ml QID ORAL 01/25/21 18:00 02/01/21 17:59 01/30/21 08:52 Ondansetron HCl (Zofran) 4 mg Q4H PRN IVP Nausea & Vomiting 01/02/21 08:15 02/01/21 08:14 Piperacillin Sod/ Tazobactam Sod 3.375 gm/Sodium Chloride 110 ml @ 27.5 mls/hr Q8H IVPB 01/25/21 10:00 02/01/21 09:59 01/30/21 01:45 Potassium Chloride (K-Dur) 20 meq TWICE A DAY NG 01/20/21 13:00 04/20/21 12:59 01/30/21 08:53 Quetiapine Fumarate (SEROqueL) 100 mg Q12HR ORAL 01/20/21 15:00 03/06/21 14:59 01/30/21 08:52 Valproic Acid (Depakene) 500 mg Q12HR GT 01/22/21 21:00 02/21/21 20:59 01/30/21 08:52 Vancomycin HCl 300 ml @ 150 mls/hr Q8H IVPB 01/27/21 11:00 02/01/21 02:59 01/30/21 02:58 [facility] 1 ea DAILY PRN MISC Per rx protocol 01/25/21 08:15 02/24/21 08:14 Warfarin Sodium (Coumadin per pharmacy) 1 ea DAILY PRN MISC Per rx protocol 01/02/21 08:30 02/01/21 08:29 Anuel Crespo MD Jan 30, 2021 09:08
[2021-01-30] MEDS ORDERED: Tubing IV Secondary IV ONE (10:31)
[2021-01-30] MEDS ORDERED: NS 275ml ONE (10:31)
--- NOTE | 2021-01-30 13:11 | Nephrology Progress Note ---
Assessment/Plan Problem List: (1) Hyperkalemia (2) Pneumonia due to COVID-19 virus (3) Respiratory failure with hypoxia (4) Obesity (5) Schizophrenia (6) DMII (diabetes mellitus, type 2) Assessment Hyperkalemia Stable renal parameters Hyperglycemia Covid pneumonia due to COVID-19 virus Acute respiratory failure with hypoxia requiring mechanical ventilation History of COPD History of DVT, pulmonary emboli Obese Hypertension History of diabetes Psych condition, schizophrenia, bipolar disease Plan January 30: Status quo. Remains full code. Intubated. On ventilator. Low magnesium addressed. Continue per consultants. January 29: Status quo. Labs reviewed. Low magnesium addressed. Discussed with JOHAN Ratliff. Continue per consultants. January 28: Status quo. Labs and medication list reviewed. K-Phos supplement orde red. Continue per current treatment plan. January 27: Patient remains full code. Intubated on ventilator. FiO2 50%. Labs reviewed. Renal parameters stable. Medication list reviewed. January 26: Full code. Intubated. On ventilator. FiO2 65%. No CHEM panel drawn today. Continue per consultants. January 25: Status unchanged. Blood pressure low. Remains full code on ve ntilator. Continue per consultants. Medication list reviewed. INR is 3.8 today. January 24: Status quo. Intubated on ventilator and full code. Labs reviewed. Medication list reviewed. Continue per consultants. January 23: Patient on prone position. IntubatedFiO2 65%. Renal parameters stable. Continue per consultants. Date 21 hospitalization. Possible trach?. January 22: FiO2 50%. Prone position. Labs reviewed. Stable from renal standpoint of view. Continue per consultants. January 21: Full code. Intubated on ventilator. FiO2 40%. Labs reviewed. Renal parameters stable. Continue per consultants. January 20: Status unchanged. Full code. On ventilator. Chest x-ray reviewed. IV fluid discontinued. Potassium supplement given. 1 dose of Lasix given. Albumin bolus given. Midodrine started. Will monitor renal parameters and electrolytes. Discussed with JOHAN Mohamud. January 19: Labs reviewed. Renal parameters stable. Remains full code intubated on ventilator. FiO2 50%. Continue per consultants. January 18: Full code. Intubated. On ventilator. FiO2 down to 35%. No labs drawn today. Continue to monitor renal parameters and electrolytes. January 17: Full code. Intubated on ventilator. FiO2 remains at 60%. Labs reviewed. Renal parameters stable. January 16: Full code. Intubated. Labs reviewed. Renal parameters stable. FiO2 60%. Continue per consultants. January 15: Patient remains intubated and full code. Labs reviewed. Stable renal parameters. January 14: Patient full code. Intubated on ventilator. On prone position until 5 PM. Labs reviewed. Stable from renal standpoint of view. January 13: Labs reviewed. Renal parameters stable. Continue per consultants. Patient remain full code and intubated on ventilator. January 12: Labs reviewed. Renal parameters stable. Patient remains full code. Remains intubated on ventilator and on prone position. Continue per consultants. January 11: Labs reviewed. Renal parameters stable. Continue per consultants. January 10: Labs reviewed. Renal parameters stable. Continue per consultants. Change IV to half-normal saline Kayexalate via NG tube for high potassium Monitor electrolytes and renal parameters Per orders, per consultants Subjective ROS Limited/Unobtainable: Yes Objective Objective Last 24 Hour Vital Signs Date Time Temp Pulse Resp B/P (MAP) Pulse Ox O2 Delivery O2 Flow Rate FiO2 01/30/21 11:00 91 22 115/73 (87) 92 01/30/21 10:30 45 01/30/21 10:30 101 21 126/85 (99) 97 01/30/21 10:00 81 22 112/77 (89) 95 01/30/21 09:30 80 22 113/78 (90) 96 01/30/21 09:00 83 22 103/71 (82) 96 01/30/21 08:30 84 22 109/74 (86) 96 01/30/21 08:00 50 01/30/21 08:00 88 22 117/77 (90) 01/30/21 08:00 Mechanical Ventilator 01/30/21 07:46 90 01/30/21 07:45 93 22 117/76 (90) 01/30/21 07:30 106 34 116/77 (90) 01/30/21 07:15 130 28 115/74 (88) 97 01/30/21 07:00 103 36 115/80 (92) 97 01/30/21 06:10 21 109/65 Mechanical Ventilator 50 01/30/21 06:00 115/55 01/30/21 06:00 21 122/51 Mechanical Ventilator 50 01/30/21 06:00 119 33 109/65 (80) 99 01/30/21 05:30 115 46 128/81 (97) 100 01/30/21 05:00 120 21 126/90 (102) 100 01/30/21 05:00 110/73 01/30/21 05:00 22 129/71 Mechanical Ventilator 50 01/30/21 04:30 85 22 123/70 (87) 100 01/30/21 04:00 Mechanical Ventilator 01/30/21 04:00 90 01/30/21 04:00 50 01/30/21 04:00 104/63 01/30/21 04:00 22 108/64 Mechanical Ventilator 50 01/30/21 04:00 98.2 93 22 110/68 (82) 94 01/30/21 03:30 111 29 112/66 (81) 99 01/30/21 03:12 87 22 50 01/30/21 03:00 84 22 113/67 (82) 99 01/30/21 03:00 119/73 01/30/21 03:00 22 113/73 Mechanical Ventilator 50 01/30/21 02:30 82 22 119/72 (88) 99 01/30/21 02:00 84 22 116/71 (86) 99 01/30/21 02:00 119/74 01/30/21 02:00 22 119/74 Mechanical Ventilator 01/30/21 01:45 119/73 01/30/21 01:30 83 22 118/73 (88) 100 01/30/21 01:00 82 22 119/74 (89) 99 01/30/21 01:00 119/73 01/30/21 01:00 22 119/74 Mechanical Ventilator 50 01/30/21 00:00 90 22 104/65 (78) 99 01/30/21 00:00 80 01/30/21 00:00 50 01/30/21 00:00 96/53 01/30/21 00:00 21 96/53 Mechanical Ventilator 50 01/30/21 00:00 99.0 01/30/21 00:00 Mechanical Ventilator 01/29/21 23:30 92 22 100/58 (72) 99 01/29/21 23:03 90 22 50 01/29/21 23:00 91 22 105/63 (77) 99 01/29/21 23:00 104/65 01/29/21 23:00 21 104/65 Mechanical Ventilator 50 01/29/21 22:30 92 22 112/69 (83) 99 01/29/21 22:00 114/68 01/29/21 22:00 22 114/68 Mechanical Ventilator 50 01/29/21 22:00 84 22 117/73 (88) 100 01/29/21 21:30 80 22 127/77 (94) 100 01/29/21 21:00 121/75 01/29/21 21:00 22 121/75 Mechanical Ventilator 50 01/29/21 21:00 76 22 125/80 (95) 100 01/29/21 20:45 78 22 126/81 (96) 100 01/29/21 20:30 79 22 110/76 (87) 100 01/29/21 20:15 84 22 81/47 (58) 99 01/29/21 20:11 99/52 01/29/21 20:00 99.2 84 22 94/55 (68) 100 01/29/21 20:00 Mechanical Ventilator 01/29/21 20:00 80 01/29/21 20:00 81/47 01/29/21 20:00 21 81/47 Mechanical Ventilator 50 01/29/21 19:45 83 22 104/65 (78) 100 01/29/21 19:30 83 22 109/69 (82) 100 01/29/21 19:05 83 22 50 01/29/21 19:00 103/66 01/29/21 19:00 23 103/66 Mechanical Ventilator 50 01/29/21 19:00 84 22 106/67 (80) 99 01/29/21 18:00 83 22 98/63 (75) 99 01/29/21 18:00 98/63 01/29/21 18:00 22 98/63 Mechanical Ventilator 50 01/29/21 17:00 112 22 150/91 (110) 98 01/29/21 17:00 101/55 01/29/21 17:00 26 101/55 Mechanical Ventilator 50 01/29/21 16:00 80 01/29/21 16:00 98.1 80 22 113/77 (89) 99 01/29/21 16:00 50 01/29/21 16:00 106/69 01/29/21 16:00 22 106/69 Mechanical Ventilator 50 01/29/21 16:00 Mechanical Ventilator 01/29/21 15:05 91 22 50 01/29/21 15:00 113/78 01/29/21 15:00 22 113/78 Mechanical Ventilator 50 01/29/21 15:00 87 22 113/78 (90) 98 01/29/21 14:15 92 22 109/72 (84) 97 01/29/21 14:00 106 24 115/76 (89) 95 01/29/21 14:00 109/72 01/29/21 14:00 22 109/72 Mechanical Ventilator 50 01/29/21 14:00 91 22 109/72 (84) 97 01/29/21 13:59 89 22 50 01/29/21 13:45 99 24 111/71 (84) 01/29/21 13:30 95 22 112/79 (90) 98 01/29/21 13:15 97 23 106/68 (81) 97 Intake and Output 01/29/21 01/30/21 19:00 07:00 Intake Total 1212.510 ml 1225.14 ml Output Total 1175 ml 890 ml Balance 37.510 ml 335.14 ml Free Water 60 ml 60 ml IV Total 792.510 ml 775.14 ml Tube Feeding 360 ml 390 ml Output Urine Total 1175 ml 890 ml Current Medications Medications (Trade) Dose Ordered Sig/Johnny Route PRN Reason Start Time Stop Time Status Last Admin Dose Admin Acetaminophen (Tylenol) 650 mg Q6H PRN NG Temp >100.5 01/09/21 09:15 02/08/21 09:14 01/26/21 02:05 Acetaminophen (Tylenol) 650 mg Q6H PRN NG Mild Pain (Pain Scale 1-3) 01/09/21 09:15 02/08/21 09:14 01/27/21 05:10 Albuterol Sulfate (Proventil MDI) 2 puff Q6HRT INH 01/02/21 19:00 04/02/21 18:59 01/30/21 12:36 Benztropine Mesylate (Cogentin) 1 mg EVERY 12 HOURS NG 01/09/21 09:15 02/01/21 09:14 01/30/21 08:52 Chlorhexidine Gluconate (Myranda-Hex 2%) 1 applic DAILY@2000 TOPIC 01/29/21 20:00 04/29/21 19:59 01/29/21 20:11 Dextrose (Dextrose 50%) 25 ml Q30M PRN IV Hypoglycemia 01/06/21 23:45 04/06/21 23:44 Dextrose (Dextrose 50%) 50 ml Q30M PRN IV Hypoglycemia 01/06/21 23:45 04/06/21 23:44 Docosanol (Abreva) 1 gm FIVE TIMES A DAY TP 01/29/21 20:00 04/29/21 19:59 01/30/21 10:38 Fentanyl Citrate 250 ml @ 15 mls/hr Q24H PRN IV AGITATION 01/30/21 22:01 02/01/21 22:00 Fentanyl Citrate 250 ml @ 1 mls/hr Q24H PRN IV Agitation 01/26/21 19:00 01/30/21 22:00 01/30/21 06:10 Heparin Sodium/ Sodium Chloride (Heparin 1000 units/500ml Premix) 1,000 unit ONCE PRN IV PICC LINE PLACEMENT 01/29/21 11:45 01/31/21 11:44 Insulin Aspart (NovoLOG) EVERY 6 HOURS SUBQ 01/09/21 12:00 04/04/21 16:29 01/30/21 05:39 Ipratropium [place] (Atrovent Inh) 1 puffs Q6HRT INH 01/02/21 19:00 02/01/21 18:59 01/30/21 12:37 Lansoprazole (Prevacid) 30 mg DAILY GT 01/24/21 09:00 02/15/21 08:59 01/30/21 08:52 Lidocaine HCl (Xylocaine 1% 30ml) 30 ml ONCE PRN INJ PICC LINE PLACEMENT 01/29/21 11:45 01/31/21 11:44 Midazolam HCl 200 ml @ 0 mls/hr Q24H PRN IV Agitation 01/24/21 00:30 01/31/21 00:29 01/27/21 08:05 Midodrine (Pro-Amatine) 10 mg Q8HR ORAL 01/20/21 14:00 04/20/21 13:59 01/30/21 05:37 Norepinephrine Bitartrate 8 mg/ Dextrose 258 ml @ 0 mls/hr Q24H IV 01/28/21 20:00 01/31/21 19:59 01/29/21 20:11 Nystatin (Nystatin) 5 ml QID ORAL 01/25/21 18:00 02/01/21 17:59 01/30/21 08:52 Ondansetron HCl (Zofran) 4 mg Q4H PRN IVP Nausea & Vomiting 01/02/21 08:15 02/01/21 08:14 Piperacillin Sod/ Tazobactam Sod 3.375 gm/Sodium Chloride 110 ml @ 27.5 mls/hr Q8H IVPB 01/25/21 10:00 02/01/21 09:59 01/30/21 10:39 Potassium Chloride (K-Dur) 20 meq TWICE A DAY NG 01/20/21 13:00 04/20/21 12:59 01/30/21 08:53 Quetiapine Fumarate (SEROqueL) 100 mg Q12HR ORAL 01/20/21 15:00 03/06/21 14:59 01/30/21 08:52 Valproic Acid (Depakene) 500 mg Q12HR GT 01/22/21 21:00 02/21/21 20:59 01/30/21 08:52 Vancomycin HCl 300 ml @ 150 mls/hr Q8H IVPB 01/27/21 11:00 02/01/21 02:59 01/30/21 12:34 Vancomycin HCl (Vanco pharmacy to dose) 1 ea DAILY PRN MISC Per rx protocol 01/25/21 08:15 02/24/21 08:14 Warfarin Sodium (Coumadin per pharmacy) 1 ea DAILY PRN MISC Per rx protocol 01/02/21 08:30 02/01/21 08:29 Laboratory Tests 01/30/21 04:00: White Blood Count 6.4, Red Blood Count 3.87L, Hemoglobin 11.1L, Hematocrit 35.1L , Mean Corpuscular Volume 91, Mean Corpuscular Hemoglobin 28.6, Mean Corpuscular Hemoglobin Concent 31.5L, Red Cell Distribution Width 15.3H, Platelet Count 189, Mean Platelet Volume 8.6, Neutrophils (%) (Auto) , Lymphocytes (%) (Auto) , Monocytes (%) (Auto) , Eosinophils (%) (Auto) , Basophils (%) (Auto) , Differential Total Cells Counted 100, Neutrophils % (Manual) 65, Lymphocytes % (Manual) 15L, Monocytes % (Manual) 8, Eosinophils % (Manual) 4H, Basophils % (Manual) 4H, Band Neutrophils 4, Platelet Estimate Adequate, Platelet Morphology Normal, Red Blood Cell Morphology Normal, Prothrombin Time 29.2H, Prothromb Time International Ratio 2.9H, Activated Partial Thromboplast Time 40H, Sodium Level 140, Potassium Level 3.9, Chloride Level 105, Carbon Dioxide Level 24, Anion Gap 12, Blood Urea Nitrogen 5L, Creatinine 0.7, Estimat Glomerular Filtration Rate > 60, Glucose Level 229H, Calcium Level 8.7, Phosphorus Level 3.5, Magnesium Level 1.6L, Total Bilirubin 0.2, Aspartate Amino Transf (AST/SGOT) 19, Alanine Aminotransferase (ALT/SGPT) 28, Alkaline Phosphatase 134H, C-Reactive Protein, Quantitative 20.9H, Pro-B-Type Natriuretic Peptide 180H, Total Protein 6.0L, Albumin 1.8L, Globulin 4.2, Albumin/Globulin Ratio 0.4L 01/30/21 09:35: Arterial Blood pH 7.454H, Arterial Blood Partial Pressure CO2 38.4, Arterial Blood Partial Pressure O2 79.2, Arterial Blood HCO3 26.3H, Arterial Blood Oxygen Saturation 95.1, Arterial Blood Base Excess 2.4H, Miguelito Test Positive Height (Feet): 5 Height (Inches): 5.00 Weight (Pounds): 233 General Appearance: no apparent distress Cardiovascular: normal rate Respiratory/Chest: decreased breath sounds Abdomen: distended Avi Frye MD Jan 30, 2021 13:11
--- NOTE | 2021-01-30 13:22 | Pulmonology Progress Note ---
Subjective ROS Limited/Unobtainable: Yes Allergies: Coded Allergies: No Known Allergies (Unverified , 01/02/21) Objective Last 24 Hour Vital Signs Date Time Temp Pulse Resp B/P (MAP) Pulse Ox O2 Delivery O2 Flow Rate FiO2 01/30/21 11:00 91 22 115/73 (87) 92 01/30/21 10:30 45 01/30/21 10:30 101 21 126/85 (99) 97 01/30/21 10:00 81 22 112/77 (89) 95 01/30/21 09:30 80 22 113/78 (90) 96 01/30/21 09:00 83 22 103/71 (82) 96 01/30/21 08:30 84 22 109/74 (86) 96 01/30/21 08:00 50 01/30/21 08:00 88 22 117/77 (90) 01/30/21 08:00 Mechanical Ventilator 01/30/21 07:46 90 01/30/21 07:45 93 22 117/76 (90) 01/30/21 07:30 106 34 116/77 (90) 01/30/21 07:15 130 28 115/74 (88) 97 01/30/21 07:00 103 36 115/80 (92) 97 01/30/21 06:10 21 109/65 Mechanical Ventilator 50 01/30/21 06:00 115/55 01/30/21 06:00 21 122/51 Mechanical Ventilator 50 01/30/21 06:00 119 33 109/65 (80) 99 01/30/21 05:30 115 46 128/81 (97) 100 01/30/21 05:00 120 21 126/90 (102) 100 01/30/21 05:00 110/73 01/30/21 05:00 22 129/71 Mechanical Ventilator 50 01/30/21 04:30 85 22 123/70 (87) 100 01/30/21 04:00 Mechanical Ventilator 01/30/21 04:00 90 01/30/21 04:00 50 01/30/21 04:00 104/63 01/30/21 04:00 22 108/64 Mechanical Ventilator 50 01/30/21 04:00 98.2 93 22 110/68 (82) 94 01/30/21 03:30 111 29 112/66 (81) 99 01/30/21 03:12 87 22 50 01/30/21 03:00 84 22 113/67 (82) 99 01/30/21 03:00 119/73 01/30/21 03:00 22 113/73 Mechanical Ventilator 50 01/30/21 02:30 82 22 119/72 (88) 99 01/30/21 02:00 84 22 116/71 (86) 99 01/30/21 02:00 119/74 01/30/21 02:00 22 119/74 Mechanical Ventilator 01/30/21 01:45 119/73 01/30/21 01:30 83 22 118/73 (88) 100 01/30/21 01:00 82 22 119/74 (89) 99 01/30/21 01:00 119/73 01/30/21 01:00 22 119/74 Mechanical Ventilator 50 01/30/21 00:00 90 22 104/65 (78) 99 01/30/21 00:00 80 01/30/21 00:00 50 01/30/21 00:00 96/53 01/30/21 00:00 21 96/53 Mechanical Ventilator 50 01/30/21 00:00 99.0 01/30/21 00:00 Mechanical Ventilator 01/29/21 23:30 92 22 100/58 (72) 99 01/29/21 23:03 90 22 50 01/29/21 23:00 91 22 105/63 (77) 99 01/29/21 23:00 104/65 01/29/21 23:00 21 104/65 Mechanical Ventilator 50 01/29/21 22:30 92 22 112/69 (83) 99 01/29/21 22:00 114/68 01/29/21 22:00 22 114/68 Mechanical Ventilator 50 01/29/21 22:00 84 22 117/73 (88) 100 01/29/21 21:30 80 22 127/77 (94) 100 01/29/21 21:00 121/75 01/29/21 21:00 22 121/75 Mechanical Ventilator 50 01/29/21 21:00 76 22 125/80 (95) 100 01/29/21 20:45 78 22 126/81 (96) 100 01/29/21 20:30 79 22 110/76 (87) 100 01/29/21 20:15 84 22 81/47 (58) 99 01/29/21 20:11 99/52 01/29/21 20:00 99.2 84 22 94/55 (68) 100 01/29/21 20:00 Mechanical Ventilator 01/29/21 20:00 80 01/29/21 20:00 81/47 01/29/21 20:00 21 81/47 Mechanical Ventilator 50 01/29/21 19:45 83 22 104/65 (78) 100 01/29/21 19:30 83 22 109/69 (82) 100 01/29/21 19:05 83 22 50 01/29/21 19:00 103/66 01/29/21 19:00 23 103/66 Mechanical Ventilator 50 01/29/21 19:00 84 22 106/67 (80) 99 01/29/21 18:00 83 22 98/63 (75) 99 01/29/21 18:00 98/63 01/29/21 18:00 22 98/63 Mechanical Ventilator 50 01/29/21 17:00 112 22 150/91 (110) 98 01/29/21 17:00 101/55 01/29/21 17:00 26 101/55 Mechanical Ventilator 50 01/29/21 16:00 80 01/29/21 16:00 98.1 80 22 113/77 (89) 99 01/29/21 16:00 50 01/29/21 16:00 106/69 01/29/21 16:00 22 106/69 Mechanical Ventilator 50 01/29/21 16:00 Mechanical Ventilator 01/29/21 15:05 91 22 50 01/29/21 15:00 113/78 01/29/21 15:00 22 113/78 Mechanical Ventilator 50 01/29/21 15:00 87 22 113/78 (90) 98 01/29/21 14:15 92 22 109/72 (84) 97 01/29/21 14:00 106 24 115/76 (89) 95 01/29/21 14:00 109/72 01/29/21 14:00 22 109/72 Mechanical Ventilator 50 01/29/21 14:00 91 22 109/72 (84) 97 01/29/21 13:59 89 22 50 01/29/21 13:45 99 24 111/71 (84) 01/29/21 13:30 95 22 112/79 (90) 98 Intake and Output 01/29/21 01/30/21 19:00 07:00 Intake Total 1212.510 ml 1225.14 ml Output Total 1175 ml 890 ml Balance 37.510 ml 335.14 ml Free Water 60 ml 60 ml IV Total 792.510 ml 775.14 ml Tube Feeding 360 ml 390 ml Output Urine Total 1175 ml 890 ml Microbiology Date/Time Source Procedure Growth Status 01/28/21 13:00 Blood Blood Culture - Preliminary Resulted 01/28/21 12:50 Blood Blood Culture - Preliminary Resulted 01/27/21 16:10 Blood Blood Culture - Preliminary NO GROWTH AFTER 24 HOURS Resulted 01/27/21 16:08 Blood Blood Culture - Preliminary NO GROWTH AFTER 24 HOURS Resulted Laboratory Tests 01/30/21 04:00: White Blood Count 6.4, Red Blood Count 3.87L, Hemoglobin 11.1L, Hematocrit 35.1L , Mean Corpuscular Volume 91, Mean Corpuscular Hemoglobin 28.6, Mean Corpuscular Hemoglobin Concent 31.5L, Red Cell Distribution Width 15.3H, Platelet Count 189, Mean Platelet Volume 8.6, Neutrophils (%) (Auto) , Lymphocytes (%) (Auto) , Monocytes (%) (Auto) , Eosinophils (%) (Auto) , Basophils (%) (Auto) , Differential Total Cells Counted 100, Neutrophils % (Manual) 65, Lymphocytes % (Manual) 15L, Monocytes % (Manual) 8, Eosinophils % (Manual) 4H, Basophils % (Manual) 4H, Band Neutrophils 4, Platelet Estimate Adequate, Platelet Morphology Normal, Red Blood Cell Morphology Normal, Prothrombin Time 29.2H, Prothromb Time International Ratio 2.9H, Activated Partial Thromboplast Time 40H, Sodium Level 140, Potassium Level 3.9, Chloride Level 105, Carbon Dioxide Level 24, Anion Gap 12, Blood Urea Nitrogen 5L, Creatinine 0.7, Estimat Glomerular Filtration Rate > 60, Glucose Level 229H, Calcium Level 8.7, Phosphorus Level 3.5, Magnesium Level 1.6L, Total Bilirubin 0.2, Aspartate Amino Transf (AST/SGOT) 19, Alanine Aminotransferase (ALT/SGPT) 28, Alkaline Phosphatase 134H, C-Reactive Protein, Quantitative 20.9H, Pro-B-Type Natriuretic Peptide 180H, Total Protein 6.0L, Albumin 1.8L, Globulin 4.2, Albumin/Globulin Ratio 0.4L 01/30/21 09:35: Arterial Blood pH 7.454H, Arterial Blood Partial Pressure CO2 38.4, Arterial Blood Partial Pressure O2 79.2, Arterial Blood HCO3 26.3H, Arterial Blood Oxygen Saturation 95.1, Arterial Blood Base Excess 2.4H, Miguelito Test Positive Current Medications Medications (Trade) Dose Ordered Sig/Johnny Route PRN Reason Start Time Stop Time Status Last Admin Dose Admin Acetaminophen (Tylenol) 650 mg Q6H PRN NG Temp >100.5 01/09/21 09:15 02/08/21 09:14 01/26/21 02:05 Acetaminophen (Tylenol) 650 mg Q6H PRN NG Mild Pain (Pain Scale 1-3) 01/09/21 09:15 02/08/21 09:14 01/27/21 05:10 Albuterol Sulfate (Proventil MDI) 2 puff Q6HRT INH 01/02/21 19:00 04/02/21 18:59 01/30/21 12:36 Benztropine Mesylate (Cogentin) 1 mg EVERY 12 HOURS NG 01/09/21 09:15 02/01/21 09:14 01/30/21 08:52 Chlorhexidine Gluconate (Myranda-Hex 2%) 1 applic DAILY@2000 TOPIC 01/29/21 20:00 04/29/21 19:59 01/29/21 20:11 Dextrose (Dextrose 50%) 25 ml Q30M PRN IV Hypoglycemia 01/06/21 23:45 04/06/21 23:44 Dextrose (Dextrose 50%) 50 ml Q30M PRN IV Hypoglycemia 01/06/21 23:45 04/06/21 23:44 Docosanol (Abreva) 1 gm FIVE TIMES A DAY TP 01/29/21 20:00 04/29/21 19:59 01/30/21 10:38 Fentanyl Citrate 250 ml @ 15 mls/hr Q24H PRN IV AGITATION 01/30/21 22:01 02/01/21 22:00 Fentanyl Citrate 250 ml @ 1 mls/hr Q24H PRN IV Agitation 01/26/21 19:00 01/30/21 22:00 01/30/21 06:10 Heparin Sodium/ Sodium Chloride (Heparin 1000 units/500ml Premix) 1,000 unit ONCE PRN IV PICC LINE PLACEMENT 01/29/21 11:45 01/31/21 11:44 Insulin Aspart (NovoLOG) EVERY 6 HOURS SUBQ 01/09/21 12:00 04/04/21 16:29 01/30/21 05:39 Ipratropium [place] (Atrovent Inh) 1 puffs Q6HRT INH 01/02/21 19:00 02/01/21 18:59 01/30/21 12:37 Lansoprazole (Prevacid) 30 mg DAILY GT 01/24/21 09:00 02/15/21 08:59 01/30/21 08:52 Lidocaine HCl (Xylocaine 1% 30ml) 30 ml ONCE PRN INJ PICC LINE PLACEMENT 01/29/21 11:45 01/31/21 11:44 Midazolam HCl 200 ml @ 0 mls/hr Q24H PRN IV Agitation 01/24/21 00:30 01/31/21 00:29 01/27/21 08:05 Midodrine (Pro-Amatine) 10 mg Q8HR ORAL 01/20/21 14:00 04/20/21 13:59 01/30/21 05:37 Norepinephrine Bitartrate 8 mg/ Dextrose 258 ml @ 0 mls/hr Q24H IV 01/28/21 20:00 01/31/21 19:59 01/29/21 20:11 Nystatin (Nystatin) 5 ml QID ORAL 01/25/21 18:00 02/01/21 17:59 01/30/21 08:52 Ondansetron HCl (Zofran) 4 mg Q4H PRN IVP Nausea & Vomiting 01/02/21 08:15 02/01/21 08:14 Piperacillin Sod/ Tazobactam Sod 3.375 gm/Sodium Chloride 110 ml @ 27.5 mls/hr Q8H IVPB 01/25/21 10:00 02/01/21 09:59 01/30/21 10:39 Potassium Chloride (K-Dur) 20 meq TWICE A DAY NG 01/20/21 13:00 04/20/21 12:59 01/30/21 08:53 Quetiapine Fumarate (SEROqueL) 100 mg Q12HR ORAL 01/20/21 15:00 03/06/21 14:59 01/30/21 08:52 Valproic Acid (Depakene) 500 mg Q12HR GT 01/22/21 21:00 02/21/21 20:59 01/30/21 08:52 Vancomycin HCl 300 ml @ 150 mls/hr Q8H IVPB 01/27/21 11:00 02/01/21 02:59 01/30/21 12:34 Vancomycin HCl (Vanco pharmacy to dose) 1 ea DAILY PRN MISC Per rx protocol 01/25/21 08:15 02/24/21 08:14 Warfarin Sodium (Coumadin per pharmacy) 1 ea DAILY PRN MISC Per rx protocol 01/02/21 08:30 02/01/21 08:29 Assessment/Plan Assessment/Plan Pulmonary CCM Progress Note Seen on 01/29/2021 HPI Patient is a 60 man with prior h/o COPD, CPS/bipolar DO, 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 ID following, on AB, s/p REM + SM, CXR with bilateral infiltrates Remains on pressors PRN Fevers settling - AB/ID,cultures pending,CT sinuses pending,CXR no change Sedated in ICU on Ventilator, has OGT/central line PEEP at 5,maintaining O2 sats, FIO2 - 40-50%, on Levophed PRN, Cortisol level pending Pressure areas around ETT site - surgery/wound nurse following Will need Trach once HD stable - Surgery following Allergies: Coded Allergies: No Known Allergies (Unverified , 01/02/21) PMH: COPD, CPS/bipolar DO, prior DVT/PE on AC, DM2, HTN and hydrocephalus Physical Exam Deferred Covid19 Vital Signs noted Laboratory Tests noted Imaging noted Height (Feet): 5 Height (Inches): 5.00 Weight (Pounds): 233 Medications Medications noted Assessment/Plan Problem List: (1) Pneumonia due to COVID-19 virus ICD Codes: U07.1 - COVID-19; J12.82 - Pneumonia due to coronavirus disease 2018 SNOMED: 712038546471103513 (2) Acute hypercapnic respiratory failure ICD Codes: J96.02 - Acute respiratory failure with hypercapnia SNOMED: 725858462 (3) Respiratory failure with hypoxia ICD Codes: J96.91 - Respiratory failure, unspecified with hypoxia SNOMED: [id number] Qualifiers: Qualified Codes: J96.01 - Acute respiratory failure with hypoxia (4) COPD (chronic obstructive pulmonary disease) ICD Codes: J44.9 - Chronic obstructive pulmonary disease, unspecified SNOMED: 35702134 (5) History of deep venous thrombosis or pulmonary embolus SNOMED: 866484024 (6) Obesity ICD Codes: E66.9 - Obesity, unspecified SNOMED: 028594809, 543477279 (7) Essential hypertension ICD Codes: I10 - Essential (primary) hypertension SNOMED: 44100942 (8) Diabetes mellitus type 2 in obese ICD Codes: E11.69 - Type 2 diabetes mellitus with other specified complication; E66.9 - Obesity, unspecified SNOMED: 74177076 (9) History of hydrocephalus ICD Codes: Z86.69 - Personal history of other diseases of the nervous system and sense organs SNOMED: 571335534 (10) Schizophrenia ICD Codes: F20.9 - Schizophrenia, unspecified SNOMED: 66001344 (11) Bipolar 1 disorder ICD Codes: F31.9 - Bipolar disorder, unspecified SNOMED: 592613013 (12) Anticoagulant long-term use ICD Codes: Z79.01 - long term care pharmacist (current) use of anticoagulants SNOMED: 415441995 Assessment/Plan: ACVC - adjust PRN Adjust FiO2 to keep SaO2 > 92% Reduce PEEP as tolerated Pressors PRN Sedation PRN HFA's F/U inflammatory markers and covid labs ID recs REM per ID Wean SM to off - 10QD previously Abx per ID F/U Cx's Monitor volumes and renal function,diuresis per Renal DVT Px: Coumadin TF when not proned FC Will need tracheostomy - did not tolerate weaning previously Seen on 01/29/2021 Anuel Luis MD Jan 30, 2021 13:22
--- NOTE | 2021-01-30 13:31 | Diagnostic Imaging Report ---
Indication: Dyspnea Technique: One view of the chest Comparison: 01/29/2021 Findings: The right hemidiaphragm is elevated, but there is decreased consolidation and atelectasis as compared to the previous study. There is persistent consolidation and atelectasis at the left lung base. There appears to be decreased pleural fluid on the left. Tube positions are stable. Impression: Improving right basilar atelectasis and consolidation Decreased left pleural fluid. Persistent parenchymal disease
--- NOTE | 2021-01-30 13:36 | Surgery Progress Note ---
Surgery Progress Note Subjective Additional Comments weaning pressors looks more comfortable Objective Last 24 Hour Vital Signs Date Time Temp Pulse Resp B/P (MAP) Pulse Ox O2 Delivery O2 Flow Rate FiO2 01/30/21 11:55 90 01/30/21 11:00 91 22 115/73 (87) 92 01/30/21 10:30 45 01/30/21 10:30 101 21 126/85 (99) 97 01/30/21 10:00 81 22 112/77 (89) 95 01/30/21 09:30 80 22 113/78 (90) 96 01/30/21 09:00 83 22 103/71 (82) 96 01/30/21 08:30 84 22 109/74 (86) 96 01/30/21 08:00 50 01/30/21 08:00 88 22 117/77 (90) 01/30/21 08:00 Mechanical Ventilator 01/30/21 07:46 90 01/30/21 07:45 93 22 117/76 (90) 01/30/21 07:30 106 34 116/77 (90) 01/30/21 07:15 130 28 115/74 (88) 97 01/30/21 07:00 103 36 115/80 (92) 97 01/30/21 06:10 21 109/65 Mechanical Ventilator 50 01/30/21 06:00 115/55 01/30/21 06:00 21 122/51 Mechanical Ventilator 50 01/30/21 06:00 119 33 109/65 (80) 99 01/30/21 05:30 115 46 128/81 (97) 100 01/30/21 05:00 120 21 126/90 (102) 100 01/30/21 05:00 110/73 01/30/21 05:00 22 129/71 Mechanical Ventilator 50 01/30/21 04:30 85 22 123/70 (87) 100 01/30/21 04:00 Mechanical Ventilator 01/30/21 04:00 90 01/30/21 04:00 50 01/30/21 04:00 104/63 01/30/21 04:00 22 108/64 Mechanical Ventilator 50 01/30/21 04:00 98.2 93 22 110/68 (82) 94 01/30/21 03:30 111 29 112/66 (81) 99 01/30/21 03:12 87 22 50 01/30/21 03:00 84 22 113/67 (82) 99 01/30/21 03:00 119/73 01/30/21 03:00 22 113/73 Mechanical Ventilator 50 01/30/21 02:30 82 22 119/72 (88) 99 01/30/21 02:00 84 22 116/71 (86) 99 01/30/21 02:00 119/74 01/30/21 02:00 22 119/74 Mechanical Ventilator 01/30/21 01:45 119/73 01/30/21 01:30 83 22 118/73 (88) 100 01/30/21 01:00 82 22 119/74 (89) 99 01/30/21 01:00 119/73 01/30/21 01:00 22 119/74 Mechanical Ventilator 50 01/30/21 00:00 90 22 104/65 (78) 99 01/30/21 00:00 80 01/30/21 00:00 50 01/30/21 00:00 96/53 01/30/21 00:00 21 96/53 Mechanical Ventilator 50 01/30/21 00:00 99.0 01/30/21 00:00 Mechanical Ventilator 01/29/21 23:30 92 22 100/58 (72) 99 01/29/21 23:03 90 22 50 01/29/21 23:00 91 22 105/63 (77) 99 01/29/21 23:00 104/65 01/29/21 23:00 21 104/65 Mechanical Ventilator 50 01/29/21 22:30 92 22 112/69 (83) 99 01/29/21 22:00 114/68 01/29/21 22:00 22 114/68 Mechanical Ventilator 50 01/29/21 22:00 84 22 117/73 (88) 100 01/29/21 21:30 80 22 127/77 (94) 100 01/29/21 21:00 121/75 01/29/21 21:00 22 121/75 Mechanical Ventilator 50 01/29/21 21:00 76 22 125/80 (95) 100 01/29/21 20:45 78 22 126/81 (96) 100 01/29/21 20:30 79 22 110/76 (87) 100 01/29/21 20:15 84 22 81/47 (58) 99 01/29/21 20:11 99/52 01/29/21 20:00 99.2 84 22 94/55 (68) 100 01/29/21 20:00 Mechanical Ventilator 01/29/21 20:00 80 01/29/21 20:00 81/47 01/29/21 20:00 21 81/47 Mechanical Ventilator 50 01/29/21 19:45 83 22 104/65 (78) 100 01/29/21 19:30 83 22 109/69 (82) 100 01/29/21 19:05 83 22 50 01/29/21 19:00 103/66 01/29/21 19:00 23 103/66 Mechanical Ventilator 50 01/29/21 19:00 84 22 106/67 (80) 99 01/29/21 18:00 83 22 98/63 (75) 99 01/29/21 18:00 98/63 01/29/21 18:00 22 98/63 Mechanical Ventilator 50 01/29/21 17:00 112 22 150/91 (110) 98 01/29/21 17:00 101/55 01/29/21 17:00 26 101/55 Mechanical Ventilator 50 01/29/21 16:00 80 01/29/21 16:00 98.1 80 22 113/77 (89) 99 01/29/21 16:00 50 01/29/21 16:00 106/69 01/29/21 16:00 22 106/69 Mechanical Ventilator 50 01/29/21 16:00 Mechanical Ventilator 01/29/21 15:05 91 22 50 01/29/21 15:00 113/78 01/29/21 15:00 22 113/78 Mechanical Ventilator 50 01/29/21 15:00 87 22 113/78 (90) 98 01/29/21 14:15 92 22 109/72 (84) 97 01/29/21 14:00 106 24 115/76 (89) 95 01/29/21 14:00 109/72 01/29/21 14:00 22 109/72 Mechanical Ventilator 50 01/29/21 14:00 91 22 109/72 (84) 97 01/29/21 13:59 89 22 50 01/29/21 13:45 99 24 111/71 (84) I&O Intake and Output 01/29/21 01/30/21 19:00 07:00 Intake Total 1212.510 ml 1225.14 ml Output Total 1175 ml 890 ml Balance 37.510 ml 335.14 ml Free Water 60 ml 60 ml IV Total 792.510 ml 775.14 ml Tube Feeding 360 ml 390 ml Output Urine Total 1175 ml 890 ml Dressing: saturated Cardiovascular: RSR Respiratory: decreased breath sounds Abdomen: soft, non-tender, present bowel sounds, non-distended Extremities: no edema, no tenderness, no cyanosis Laboratory Tests Test 01/30/21 04:00 01/30/21 09:35 White Blood Count 6.4 K/UL (4.8-10.8) Red Blood Count 3.87 M/UL (4.70-6.10) L Hemoglobin 11.1 G/DL (14.2-18.0) L Hematocrit 35.1 % (42.0-52.0) L Mean Corpuscular Volume 91 FL (80-99) Mean Corpuscular Hemoglobin 28.6 PG (27.0-31.0) Mean Corpuscular Hemoglobin Concent 31.5 G/DL (32.0-36.0) L Red Cell Distribution Width 15.3 % (11.6-14.8) H Platelet Count 189 K/UL (150-450) Mean Platelet Volume 8.6 FL (6.5-10.1) Neutrophils (%) (Auto) % (45.0-75.0) Lymphocytes (%) (Auto) % (20.0-45.0) Monocytes (%) (Auto) % (1.0-10.0) Eosinophils (%) (Auto) % (0.0-3.0) Basophils (%) (Auto) % (0.0-2.0) Differential Total Cells Counted 100 Neutrophils % (Manual) 65 % (45-75) Lymphocytes % (Manual) 15 % (20-45) L Monocytes % (Manual) 8 % (1-10) Eosinophils % (Manual) 4 % (0-3) H Basophils % (Manual) 4 % (0-2) H Band Neutrophils 4 % (0-8) Platelet Estimate Adequate Platelet Morphology Normal Red Blood Cell Morphology Normal Prothrombin Time 29.2 SEC (9.30-11.50) H Prothromb Time International Ratio 2.9 (0.9-1.1) H Activated Partial Thromboplast Time 40 SEC (23-33) H Sodium Level 140 MMOL/L (136-145) Potassium Level 3.9 MMOL/L (3.5-5.1) Chloride Level 105 MMOL/L (98-107) Carbon Dioxide Level 24 MMOL/L (21-32) Anion Gap 12 mmol/L (5-15) Blood Urea Nitrogen 5 mg/dL (7-18) L Creatinine 0.7 MG/DL (0.55-1.30) Estimat Glomerular Filtration Rate > 60 mL/min (>60) Glucose Level 229 MG/DL (74-106) H Calcium Level 8.7 MG/DL (8.5-10.1) Phosphorus Level 3.5 MG/DL (2.5-4.9) Magnesium Level 1.6 MG/DL (1.8-2.4) L Total Bilirubin 0.2 MG/DL (0.2-1.0) Aspartate Amino Transf (AST/SGOT) 19 U/L (15-37) Alanine Aminotransferase (ALT/SGPT) 28 U/L (12-78) Alkaline Phosphatase 134 U/L (46-116) H C-Reactive Protein, Quantitative 20.9 mg/dL (0.00-0.90) H Pro-B-Type Natriuretic Peptide 180 pg/mL (0-125) H Total Protein 6.0 G/DL (6.4-8.2) L Albumin 1.8 G/DL (3.4-5.0) L Globulin 4.2 g/dL Albumin/Globulin Ratio 0.4 (1.0-2.7) L Arterial Blood pH 7.454 (7.350-7.450) Arterial Blood Partial Pressure CO2 38.4 mmHg (35.0-45.0) Arterial Blood Partial Pressure O2 79.2 mmHg (75.0-100.0) Arterial Blood HCO3 26.3 mmol/L (22.0-26.0) H Arterial Blood Oxygen Saturation 95.1 % (95-100) Arterial Blood Base Excess 2.4 (-2-2) H Miguelito Test Positive Plan Problems: (1) COPD (chronic obstructive pulmonary disease) (2) Essential hypertension (3) Schizophrenia (4) Obesity (5) Diabetes mellitus type 2 in obese (6) History of hydrocephalus (7) Anticoagulant long-term use (8) Bipolar 1 disorder (9) History of deep venous thrombosis or pulmonary embolus (10) Acute hypercapnic respiratory failure (11) Sepsis Assessment & Plan: 60-year-old male Covid positive respiratory insufficiency and severe decline being prone intubated on vent support labs noted septic ill- appearing has been developing wound around the face from ET tube.Receiv ed report from RT pt is being proned and was observed to have developed a blood blister under vent tape on L cheek and L earlobe. Skin assessed and pt was observed to have a blood blister that is 50% de-capped,50% intact. Intact Blood Blister noted to L earlobe. Skin Barrier applied to affected areas. Optifoam Thin foam placed between vent anchor and pt's skin. Optifoam thin placed to R cheek under Vent tape, on Bridge of nose and both earlobes. Given patient's critical status current care plan and findings nutritional optimization is strongly encouraged Covid nutrition plan initiated. All Covid precautions are being taken. Imaging reviewed. Will follow with care plan. Thank you Mckeon participation care Tx.Plan: Maintain Optifoam Thin foam to R and L cheeks,Bridge of Nose and Both Ears . Change every 7 days and prn.( May request Optifoam Thin from [facility] dept). APM/PEPE Mattress overlay DAILY ESTIMATED NEEDS: Needs based on Critical care, pulmonary, obese 73.7kg abw 22-28 kcals/kg 5231-7008 total kcals 1.2-2 g protein/kg 88-147 g total protein 25-30 mL/kg 4160-6650 total fluid mLs NUTRITION DIAGNOSIS: Altered nutrition related lab values r/t steroidal meds, clinical status as evidenced by febrile on adm (102.5), elevated BG (270 287) on solumedrol, elevated lipid panel (Triglycerides 333, Chol 370, LDL 150). CURRENT TF:Vital @30ml/hr, now Nepro @30 ENTERAL NUTRITION RECOMMENDATIONS: NEPRO @30ml/hr while supine to provide x8 hrs feeds: 360ml, 648 kcal, 29g pro, 262ml free H2O - Feed at rate best tolerated, currently not meeting est needs d/t proning and aspiration risk w/ supine feeds limited to 8hrs/day. - W/ reduced aspiration risk rec feedings to total Volume of 900ml/day of Nepro as medically able. - Monitor tolerance, position/HOB >30 degrees, hemodynamic stability and ability to increase to meet est kcal and pro needs. - With increase pressor support, rec trophic feeds of 10ml/hr for gut integrity. - When tolerating TF at goal add Prosource BID to better meet est pro needs. ADDITIONAL RECOMMENDATIONS: 1) Now intubated, TF recs above when off proning (8hrs feeds) 2) Obtain calibrated bedscale wts 3) HgA1C/ elevated BG Need for niss while on D5 4) Lytes daily; replete as needed 5) Monitor triglycerides, TF tolerance, hemodynamic stability. (12) Respiratory failure with hypoxia Assessment & Plan: cont weaning vent wean pressors not ready for trach (13) Pneumonia due to COVID-19 virus (14) Hyperkalemia (15) DMII (diabetes mellitus, type 2) Ki Strong Jan 30, 2021 13:36
--- NOTE | 2021-01-30 15:27 | Brief Operative Note ---
Immediate Post Operative Note Operative Note Pre-op Diagnosis: needs IV access Procedure: PICC Post-op Diagnosis: same as pre-op Surgeon: Henok Coates Anesthesia: local Specimen: none Complications: none Fluids: none Implant(s) used?: No Jose Juan Coates MD Jan 30, 2021 15:27
--- NOTE | 2021-01-30 18:33 | Internal Med Progress Note ---
Subjective Date of Service: Jan 30, 2021 Physician Name Vickey Brown Attending Physician Geovanny Bradley MD Current Medications Medications (Trade) Dose Ordered Sig/Johnny Route PRN Reason Start Time Stop Time Status Last Admin Dose Admin Acetaminophen (Tylenol) 650 mg Q6H PRN NG Temp >100.5 01/09/21 09:15 02/08/21 09:14 01/26/21 02:05 Acetaminophen (Tylenol) 650 mg Q6H PRN NG Mild Pain (Pain Scale 1-3) 01/09/21 09:15 02/08/21 09:14 01/27/21 05:10 Albuterol Sulfate (Proventil I) 2 puff Q6HRT INH 01/02/21 19:00 04/02/21 18:59 01/30/21 12:36 Benztropine Mesylate (Cogentin) 1 mg EVERY 12 HOURS NG 01/09/21 09:15 02/01/21 09:14 01/30/21 08:52 Chlorhexidine Gluconate (Myranda-Hex 2%) 1 applic DAILY@2000 TOPIC 01/29/21 20:00 04/29/21 19:59 01/29/21 20:11 Dextrose (Dextrose 50%) 25 ml Q30M PRN IV Hypoglycemia 01/06/21 23:45 04/06/21 23:44 Dextrose (Dextrose 50%) 50 ml Q30M PRN IV Hypoglycemia 01/06/21 23:45 04/06/21 23:44 Docosanol (Abreva) 1 gm FIVE TIMES A DAY TP 01/29/21 20:00 04/29/21 19:59 01/30/21 16:10 Fentanyl Citrate 250 ml @ 15 mls/hr Q24H PRN IV AGITATION 01/30/21 22:01 02/01/21 22:00 Fentanyl Citrate 250 ml @ 1 mls/hr Q24H PRN IV Agitation 01/26/21 19:00 01/30/21 22:00 01/30/21 06:10 Heparin Sodium/ Sodium Chloride (Heparin 1000 units/500ml Premix) 1,000 unit ONCE PRN IV PICC LINE PLACEMENT 01/29/21 11:45 01/31/21 11:44 Insulin Aspart (NovoLOG) EVERY 6 HOURS SUBQ 01/09/21 12:00 04/04/21 16:29 01/30/21 13:21 Ipratropium Leslie (Atrovent Inh) 1 puffs Q6HRT INH 01/02/21 19:00 02/01/21 18:59 01/30/21 12:37 Lansoprazole (Prevacid) 30 mg DAILY GT 01/24/21 09:00 02/15/21 08:59 01/30/21 08:52 Lidocaine HCl (Xylocaine 1% 30ml) 30 ml ONCE PRN INJ PICC LINE PLACEMENT 01/29/21 11:45 01/31/21 11:44 Midazolam HCl 200 ml @ 0 mls/hr Q24H PRN IV Agitation 01/24/21 00:30 01/31/21 00:29 01/27/21 08:05 Midodrine (Pro-Amatine) 10 mg Q8HR ORAL 01/20/21 14:00 04/20/21 13:59 01/30/21 13:21 Norepinephrine Bitartrate 8 mg/ Dextrose 258 ml @ 0 mls/hr Q24H IV 01/28/21 20:00 01/31/21 19:59 01/29/21 20:11 Nystatin (Nystatin) 5 ml QID ORAL 01/25/21 18:00 02/01/21 17:59 01/30/21 17:11 Ondansetron HCl (Zofran) 4 mg Q4H PRN IVP Nausea & Vomiting 01/02/21 08:15 02/01/21 08:14 Piperacillin Sod/ Tazobactam Sod 3.375 gm/Sodium Chloride 110 ml @ 27.5 mls/hr Q8H IVPB 01/25/21 10:00 02/01/21 09:59 01/30/21 17:10 Potassium Chloride (K-Dur) 20 meq TWICE A DAY NG 01/20/21 13:00 04/20/21 12:59 01/30/21 17:11 Quetiapine Fumarate (SEROqueL) 100 mg Q12HR ORAL 01/20/21 15:00 03/06/21 14:59 01/30/21 08:52 Valproic Acid (Depakene) 500 mg Q12HR GT 01/22/21 21:00 02/21/21 20:59 01/30/21 08:52 Vancomycin HCl 300 ml @ 150 mls/hr Q8H IVPB 01/27/21 11:00 02/01/21 02:59 01/30/21 12:34 Vancomycin HCl (Vanco pharmacy to dose) 1 ea DAILY PRN MISC Per rx protocol 01/25/21 08:15 02/24/21 08:14 Warfarin Sodium (Coumadin per pharmacy) 1 ea DAILY PRN MISC Per rx protocol 01/02/21 08:30 02/01/21 08:29 Allergies: Coded Allergies: No Known Allergies (Unverified , 01/02/21) ROS Limited/Unobtainable: Yes Subjective 60 YO M admitted with shortness of breath. Now respiratory failure. Cover for [facility]-DR Bradley. ICU. Intubated and sedated Objective Last Vital Signs Date Time Temp Pulse Resp B/P (MAP) Pulse Ox O2 Delivery O2 Flow Rate FiO2 01/30/21 18:00 76 22 122/84 (97) 99 01/30/21 16:00 Mechanical Ventilator 01/30/21 16:00 45 01/30/21 16:00 98.5 01/24/21 21:00 65.0 Laboratory Tests Test 01/30/21 04:00 01/30/21 09:35 White Blood Count 6.4 K/UL (4.8-10.8) Red Blood Count 3.87 M/UL (4.70-6.10) L Hemoglobin 11.1 G/DL (14.2-18.0) L Hematocrit 35.1 % (42.0-52.0) L Mean Corpuscular Volume 91 FL (80-99) Mean Corpuscular Hemoglobin 28.6 PG (27.0-31.0) Mean Corpuscular Hemoglobin Concent 31.5 G/DL (32.0-36.0) L Red Cell Distribution Width 15.3 % (11.6-14.8) H Platelet Count 189 K/UL (150-450) Mean Platelet Volume 8.6 FL (6.5-10.1) Neutrophils (%) (Auto) % (45.0-75.0) Lymphocytes (%) (Auto) % (20.0-45.0) Monocytes (%) (Auto) % (1.0-10.0) Eosinophils (%) (Auto) % (0.0-3.0) Basophils (%) (Auto) % (0.0-2.0) Differential Total Cells Counted 100 Neutrophils % (Manual) 65 % (45-75) Lymphocytes % (Manual) 15 % (20-45) L Monocytes % (Manual) 8 % (1-10) Eosinophils % (Manual) 4 % (0-3) H Basophils % (Manual) 4 % (0-2) H Band Neutrophils 4 % (0-8) Platelet Estimate Adequate Platelet Morphology Normal Red Blood Cell Morphology Normal Prothrombin Time 29.2 SEC (9.30-11.50) H Prothromb Time International Ratio 2.9 (0.9-1.1) H Activated Partial Thromboplast Time 40 SEC (23-33) H Sodium Level 140 MMOL/L (136-145) Potassium Level 3.9 MMOL/L (3.5-5.1) Chloride Level 105 MMOL/L (98-107) Carbon Dioxide Level 24 MMOL/L (21-32) Anion Gap 12 mmol/L (5-15) Blood Urea Nitrogen 5 mg/dL (7-18) L Creatinine 0.7 MG/DL (0.55-1.30) Estimat Glomerular Filtration Rate > 60 mL/min (>60) Glucose Level 229 MG/DL (74-106) H Calcium Level 8.7 MG/DL (8.5-10.1) Phosphorus Level 3.5 MG/DL (2.5-4.9) Magnesium Level 1.6 MG/DL (1.8-2.4) L Total Bilirubin 0.2 MG/DL (0.2-1.0) Aspartate Amino Transf (AST/SGOT) 19 U/L (15-37) Alanine Aminotransferase (ALT/SGPT) 28 U/L (12-78) Alkaline Phosphatase 134 U/L (46-116) H C-Reactive Protein, Quantitative 20.9 mg/dL (0.00-0.90) H Pro-B-Type Natriuretic Peptide 180 pg/mL (0-125) H Total Protein 6.0 G/DL (6.4-8.2) L Albumin 1.8 G/DL (3.4-5.0) L Globulin 4.2 g/dL Albumin/Globulin Ratio 0.4 (1.0-2.7) L Arterial Blood pH 7.454 (7.350-7.450) Arterial Blood Partial Pressure CO2 38.4 mmHg (35.0-45.0) Arterial Blood Partial Pressure O2 79.2 mmHg (75.0-100.0) Arterial Blood HCO3 26.3 mmol/L (22.0-26.0) H Arterial Blood Oxygen Saturation 95.1 % (95-100) Arterial Blood Base Excess 2.4 (-2-2) H Miguelito Test Positive Microbiology Date/Time Source Procedure Growth Status 01/28/21 13:00 Blood Blood Culture - Preliminary Resulted 01/28/21 12:50 Blood Blood Culture - Preliminary Resulted Intake and Output 01/29/21 01/30/21 19:00 07:00 Intake Total 1212.510 ml 1245.38 ml Output Total 1175 ml 890 ml Balance 37.510 ml 355.38 ml Free Water 60 ml 60 ml IV Total 792.510 ml 795.38 ml Tube Feeding 360 ml 390 ml Output Urine Total 1175 ml 890 ml Objective Objective General: awake, responsive , confused. HEENT: NCAT, sclera anicteric, PERRL, EOMI. Neck: Supple, no significant jugular venous distention, Lungs: mech vent; decreased air at the bases, occasional crackles, no Wheeze. Heart: Regular rate and rhythm, normal S1/S2, no murmurs Abdomen: soft, nontender, nondistended. Normoactive bowel sound, obesity. / Rectal: Refused and deferred. Extremities: Left LE: No Cyanosis , clubbing or edema. Right LE AKA. Neuro: A&O x 2, Able to move all extremities Skin: warm, no rashes or lesions. Assessment/Plan Assessment/Plan Assessment/Plan Assessment/Plan (1) Pneumonia due to COVID-19 virus ICD Codes: U07.1 - COVID-19; J12.82 - Pneumonia due to coronavirus disease 2019 SNOMED: 864494186339635552 (2) Acute hypercapnic respiratory failure ICD Codes: J96.02 - Acute respiratory failure with hypercapnia SNOMED: 949626843 (3) Respiratory failure with hypoxia ICD Codes: J96.91 - Respiratory failure, unspecified with hypoxia SNOMED: 14420581665376908 Qualifiers: Qualified Codes: J96.01 - Acute respiratory failure with hypoxia (4) COPD (chronic obstructive pulmonary disease) ICD Codes: J44.9 - Chronic obstructive pulmonary disease, unspecified SNOMED: 58599977 (5) History of deep venous thrombosis or pulmonary embolus SNOMED: 672197552 (6) Obesity ICD Codes: E66.9 - Obesity, unspecified SNOMED: 169501680, 692422586 (7) Essential hypertension ICD Codes: I10 - Essential (primary) hypertension SNOMED: 29153808 (8) Diabetes mellitus type 2 in obese ICD Codes: E11.69 - Type 2 diabetes mellitus with other specified complication; E66.9 - Obesity, unspecified SNOMED: 26139114 (9) History of hydrocephalus ICD Codes: Z86.69 - Personal history of other diseases of the nervous system and sense organs SNOMED: 674004134 (10) Schizophrenia ICD Codes: F20.9 - Schizophrenia, unspecified SNOMED: 41496085 (11) Bipolar 1 disorder ICD Codes: F31.9 - Bipolar disorder, unspecified SNOMED: 463612239 (12) Anticoagulant long-term use ICD Codes: Z79.01 - FPC (current) use of anticoagulants SNOMED: 079670713 13. Sepsis=gram pos cocci 14. thrush Assessment/Plan: Optimize pulmonary hygiene/mobilize as tolerated Non Rebreather mask>BIPAP>intubated S/P Remdesivir IV S/P Solu-Medrol 40 mg IV twice a day. Abx = zosyn and vanco F/U Cx's Monitor volumes and renal function DVT Px: Coumadin DC IV fluid Start diet Monitor blood glucose level closely. On levophed, fentanyl and propofol drips Pulmonary=Dr Luis ID=Dr Gomez Psych consult=Dr Gallegos Start seroquel at 1/2 previous dose continue nystatin await tracheostomy Vickey Brown MD Jan 30, 2021 18:33
[2021-01-30] MEDS: NOREPINEPHRINE BITARTRATE IV SCH (20:00)
[2021-01-30] MEDS: D5W IV SCH (20:00)
[2021-01-30] MEDS: Dyna-Hex 2% Top Sol 2oz TOPIC SCH (20:12)
--- NOTE | 2021-01-30 20:54 | Diagnostic Imaging Report ---
Indications: Needs long-term IV access Technique: Procedure performed at bedside. Procedural timeout performed. Ultrasound confirms patent compressible left basilic vein. Total sterile technique, including sterile probe cover and sterile gel, sterile gloves, hand hygiene, hat, mask,, sterile gown, large sterile drape, and preparation with 2% chlorhexidine utilized. Local anesthesia with 1% lidocaine. Under real-time ultrasound guidance, puncture basilic vein using 21-gauge needle, passage 0.018 guidewire, exchange for 4 Welsh peel-away sheath. 4 Welsh Bard dual-lumen power PICC cut to 49 cm. It was inserted through the peel-away sheath. Peel-away sheath and guidewire removed. Catheter fixed to the skin. Both catheter ports aspirated and flushed. Patient tolerated procedure well, without immediate complication. Followup chest x-ray obtained, documents catheter tip position at the high right atrium Impression: Successful bedside placement of left arm PICC under sonographic guidance, as described above.
[2021-01-31] VITALS (59 sets, daily range): BP systolic 83–144; BP diastolic 47–99
[2021-01-31] MEDS: NovoLOG Insulin Flexpen SUBQ SCH ×5 (00:34→23:57)
[2021-01-31] MEDS: Albuterol 90mcg Inhaler 8gm INH SCH ×4 (01:06→19:00)
[2021-01-31] MEDS: Ipratropium Bromide Inhaler INH SCH ×4 (01:06→19:00)
[2021-01-31] MEDS: Piperacillin/Tazobactam 3.375 GM in NS 110 ML IVPB SCH ×3 (01:57→17:16)
[2021-01-31] MEDS: Vancomycin 1.5gm/300ml Premix 300 ML IVPB SCH ×3 (03:05→19:54)
[2021-01-31 05:41] LABS: INR 1.6 (0.9-1.1)
[2021-01-31] MEDS: Midodrine 10mg tab ORAL SCH ×3 (05:45→22:46)
[2021-01-31 05:47] LABS: BASOPHILS % (AUTO) 5.5 % (0.0-2.0); EOSINOPHILS % (AUTO) 3.7 % (0.0-3.0); HEMATOCRIT 33.5 % (42.0-52.0); HEMOGLOBIN 10.6 G/DL (14.2-18.0); LYMPHOCYTES % (AUTO) 11.4 % (20.0-45.0); MEAN CORPUSCULAR VOLUME 90 FL (80-99); MONOCYTES % (AUTO) 14.1 % (1.0-10.0); NEUTROPHILS % (AUTO) 65.4 % (45.0-75.0); PLATELET COUNT 181 K/UL (150-450); RED BLOOD COUNT 3.72 M/UL (4.70-6.10); RED CELL DISTRIBUTION WIDTH 15.2 % (11.6-14.8); WHITE BLOOD COUNT 6.1 K/UL (4.8-10.8)
[2021-01-31 06:18] LABS: ALANINE AMINOTRANSFERASE 24 U/L (12-78); ALBUMIN 1.9 G/DL (3.4-5.0); ALBUMIN/GLOBULIN RATIO 0.5 (1.0-2.7); ALKALINE PHOSPHATASE 119 U/L (46-116); ANION GAP 9 mmol/L (5-15); ASPARTATE AMINO TRANSFERASE 24 U/L (15-37); BILIRUBIN,TOTAL 0.2 MG/DL (0.2-1.0); BLOOD UREA NITROGEN 5 mg/dL (7-18); CALCIUM 8.6 MG/DL (8.5-10.1); CARBON DIOXIDE 26 MMOL/L (21-32); CHLORIDE 104 MMOL/L (98-107); CREATININE 0.7 MG/DL (0.55-1.30); POTASSIUM 3.8 MMOL/L (3.5-5.1); SODIUM 139 MMOL/L (136-145)
[2021-01-31] MEDS: Abreva 10% cream 2gm TP SCH ×5 (07:55→19:45)
[2021-01-31] MEDS: Benztropine 1mg tab NG SCH ×2 (09:09→19:54)
[2021-01-31] MEDS: Valproic Acid 250mg/5ml Liquid GT SCH ×2 (09:09→19:54)
[2021-01-31] MEDS: Nystatin Susp 500,000 units/5ml ORAL SCH ×4 (09:10→19:54)
--- NOTE | 2021-01-31 10:32 | Nephrology Progress Note ---
Assessment/Plan Problem List: (1) Hyperkalemia (2) Pneumonia due to COVID-19 virus (3) Respiratory failure with hypoxia (4) Obesity (5) Schizophrenia (6) DMII (diabetes mellitus, type 2) Assessment Hyperkalemia Stable renal parameters Hyperglycemia Covid pneumonia due to COVID-19 virus Acute respiratory failure with hypoxia requiring mechanical ventilation History of COPD History of DVT, pulmonary emboli Obese Hypertension History of diabetes Psych condition, schizophrenia, bipolar disease Plan January 31: Status quo. FiO2 45%. Full code. Renal parameters stable. Abnormal electrolytes addressed. January 30: Status quo. Remains full code. Intubated. On ventilator. Low magnesium addressed. Continue per consultants. January 29: Status quo. Labs reviewed. Low magnesium addressed. Discussed with JOHAN Ratliff. Continue per consultants. January 28: Status quo. Labs and medication list reviewed. K-Phos supplement ordered. Continue per current treatment plan. January 27: Patient remains full code. Intubated on ventilator. FiO2 50%. Labs reviewed. Renal parameters stable. Medication list reviewed. January 26: Full code. Intubated. On ventilator. FiO2 65%. No CHEM panel drawn today. Continue per consultants. January 25: Status unchanged. Blood pressure low. Remains full code on ventilator. Continue per consultants. Medication list reviewed. INR is 3.8 today. January 24: Status quo. Intubated on ventilator and full code. Labs reviewed. Medication list reviewed. Continue per consultants. January 23: Patient on prone position. IntubatedFiO2 65%. Renal parameters stable. Continue per consultants. Date hospitalization. Possible trach?. January 22: FiO2 50%. Prone position. Labs reviewed. Stable from renal standpoint of view. Continue per consultants. January 21: Full code. Intubated on ventilator. FiO2 40%. Labs reviewed. Renal parameters stable. Continue per consultants. January 20: Status unchanged. Full code. On ventilator. Chest x-ray reviewed. IV fluid discontinued. Potassium supplement given. 1 dose of Lasix given. Albumin bolus given. Midodrine started. Will monitor renal parameters and electrolytes. Discussed with JOHAN Mohamud. January 19: Labs reviewed. Renal parameters stable. Remains full code intubated on ventilator. FiO2 50%. Continue per consultants. January 18: Full code. Intubated. On ventilator. FiO2 down to 35%. No labs drawn today. Continue to monitor renal parameters and electrolytes. January 17: Full code. Intubated on ventilator. FiO2 remains at 60%. Labs reviewed. Renal parameters stable. January 16: Full code. Intubated. Labs reviewed. Renal parameters stable. FiO2 60%. Continue per consultants. January 15: Patient remains intubated and full code. Labs reviewed. Stable renal parameters. January 14: Patient full code. Intubated on ventilator. On prone position until 5 PM. Labs reviewed. Stable from renal standpoint of view. January 13: Labs reviewed. Renal parameters stable. Continue per consultants. Patient remain full code and intubated on ventilator. January 12: Labs reviewed. Renal parameters stable. Patient remains full code. Remains intubated on ventilator and on prone position. Continue per consultants. January 11: Labs reviewed. Renal parameters stable. Continue per consultants. January 10: Labs reviewed. Renal parameters stable. Continue per consultants. Change IV to half-normal saline Kayexalate via NG tube for high potassium Monitor electrolytes and renal parameters Per orders, per consultants Subjective ROS Limited/Unobtainable: Yes Objective Objective Last 24 Hour Vital Signs Date Time Temp Pulse Resp B/P (MAP) Pulse Ox O2 Delivery O2 Flow Rate FiO2 01/31/21 10:00 21 112/75 Mechanical Ventilator 45 01/31/21 10:00 97 22 112/75 (87) 96 01/31/21 09:30 86 22 103/67 (79) 94 01/31/21 09:00 89 22 108/68 (81) 97 01/31/21 09:00 22 108/68 Mechanical Ventilator 45 01/31/21 08:30 80 22 105/67 (80) 96 01/31/21 08:00 45 01/31/21 08:00 Mechanical Ventilator 01/31/21 08:00 22 103/66 Mechanical Ventilator 45 01/31/21 08:00 98.6 87 22 103/66 (78) 95 01/31/21 08:00 83 01/31/21 07:47 85 22 96 Mechanical Ventilator 45 88 22 45 01/31/21 07:30 90 22 100/68 (79) 94 01/31/21 07:00 22 113/74 Mechanical Ventilator 45 01/31/21 07:00 100 22 113/74 (87) 96 01/31/21 06:30 88 22 102/75 (84) 98 01/31/21 06:00 99 22 105/75 (85) 97 01/31/21 06:00 22 99/75 Mechanical Ventilator 45 01/31/21 05:05 86 22 45 01/31/21 05:00 21 114/81 Mechanical Ventilator 45 01/31/21 05:00 99 22 105/75 (85) 97 01/31/21 04:30 89 22 104/69 (81) 01/31/21 04:00 Mechanical Ventilator 01/31/21 04:00 22 100/60 Mechanical Ventilator 45 01/31/21 04:00 99.0 92 22 98/67 (77) 01/31/21 04:00 90 01/31/21 04:00 45 01/31/21 03:30 102 22 103/57 (72) 98 01/31/21 03:13 96 22 45 01/31/21 03:00 22 98/56 Mechanical Ventilator 45 01/31/21 03:00 95 22 103/69 (80) 100 01/31/21 02:30 112 21 112/72 (85) 100 01/31/21 02:15 108 22 114/72 (86) 100 01/31/21 02:00 89 22 97/64 (75) 100 01/31/21 02:00 21 133/70 Mechanical Ventilator 45 01/31/21 01:30 86 22 104/71 (82) 100 01/31/21 01:15 93 22 108/78 (88) 100 01/31/21 01:07 104 26 45 01/31/21 01:00 96 22 106/69 (81) 99 01/31/21 01:00 92 22 120/85 (97) 100 01/31/21 01:00 22 114/72 Mechanical Ventilator 45 01/31/21 00:45 95 20 117/83 (94) 100 01/31/21 00:30 93 22 104/70 (81) 100 01/31/21 00:00 92 01/31/21 00:00 Mechanical Ventilator 01/31/21 00:00 22 104/75 Mechanical Ventilator 45 01/31/21 00:00 45 01/31/21 00:00 98.4 90 22 108/71 (83) 100 01/30/21 23:30 92 22 120/85 (97) 100 01/30/21 23:09 21 113/75 Mechanical Ventilator 50 01/30/21 23:00 91 22 45 01/30/21 23:00 94 22 122/85 (97) 100 01/30/21 22:30 88 19 112/72 (85) 100 01/30/21 22:00 79 19 113/76 (88) 100 01/30/21 22:00 21 113/76 Mechanical Ventilator 45 01/30/21 21:30 79 20 112/82 (92) 100 01/30/21 21:19 82 22 45 01/30/21 21:00 79 22 113/76 (88) 100 01/30/21 21:00 22 113/76 Mechanical Ventilator 45 01/30/21 20:30 98.6 83 22 130/84 (99) 100 01/30/21 20:00 76 22 122/84 (97) 99 01/30/21 20:00 45 01/30/21 20:00 Mechanical Ventilator 01/30/21 20:00 85 01/30/21 20:00 112/82 01/30/21 20:00 122/85 01/30/21 20:00 22 112/82 Mechanical Ventilator 45 01/30/21 19:13 72 22 45 01/30/21 19:00 131/88 01/30/21 19:00 20 131/88 Mechanical Ventilator 45 01/30/21 19:00 77 20 131/88 (102) 100 01/30/21 18:00 76 22 122/84 (97) 99 01/30/21 18:00 122/84 01/30/21 18:00 22 122/84 Mechanical Ventilator 45 01/30/21 17:00 84 21 148/97 (114) 98 01/30/21 17:00 148/97 01/30/21 17:00 21 148/97 Mechanical Ventilator 45 01/30/21 16:03 90 01/30/21 16:00 Mechanical Ventilator 01/30/21 16:00 45 01/30/21 16:00 107/84 01/30/21 16:00 22 107/84 Mechanical Ventilator 45 01/30/21 16:00 98.5 90 22 107/84 (92) 96 01/30/21 15:00 114 22 124/80 (95) 97 01/30/21 15:00 124/80 01/30/21 15:00 22 124/80 Mechanical Ventilator 45 01/30/21 14:30 134 26 45 01/30/21 14:00 110 29 127/80 (96) 95 01/30/21 14:00 127/80 01/30/21 14:00 29 127/80 Mechanical Ventilator 45 01/30/21 13:00 122/78 01/30/21 13:00 23 122/78 Mechanical Ventilator 45 01/30/21 13:00 110 23 122/78 (93) 100 01/30/21 12:35 119 24 45 01/30/21 12:00 45 01/30/21 12:00 98.9 89 22 123/77 (92) 94 01/30/21 12:00 123/77 01/30/21 12:00 22 123/77 Mechanical Ventilator 45 01/30/21 12:00 Mechanical Ventilator 01/30/21 11:55 90 01/30/21 11:00 91 22 115/73 (87) 92 01/30/21 11:00 115/73 01/30/21 11:00 22 115/73 Mechanical Ventilator 45 Intake and Output 01/30/21 01/31/21 19:00 07:00 Intake Total 1416.51 ml 1492.5 ml Output Total 640 ml 901 ml Balance 776.51 ml 591.5 ml Free Water 120 ml IV Total 906.51 ml 602.5 ml Tube Feeding 510 ml 770 ml Output Urine Total 640 ml 900 ml Stool Total 1 ml # Bowel Movements 1 Current Medications Medications (Trade) Dose Ordered Sig/Johnny Route PRN Reason Start Time Stop Time Status Last Admin Dose Admin Acetaminophen (Tylenol) 650 mg Q6H PRN NG Temp >100.5 01/09/21 09:15 02/08/21 09:14 01/26/21 02:05 Acetaminophen (Tylenol) 650 mg Q6H PRN NG Mild Pain (Pain Scale 1-3) 01/09/21 09:15 02/08/21 09:14 01/27/21 05:10 Albuterol Sulfate (Proventil MDI) 2 puff Q6HRT INH 01/02/21 19:00 04/02/21 18:59 01/31/21 07:46 Benztropine Mesylate (Cogentin) 1 mg EVERY 12 HOURS NG 01/09/21 09:15 02/01/21 09:14 01/31/21 09:09 Chlorhexidine Gluconate (Myranda-Hex 2%) 1 applic DAILY@2000 TOPIC 01/29/21 20:00 04/29/21 19:59 01/30/21 20:12 Dextrose (Dextrose 50%) 25 ml Q30M PRN IV Hypoglycemia 01/06/21 23:45 04/06/21 23:44 Dextrose (Dextrose 50%) 50 ml Q30M PRN IV Hypoglycemia 01/06/21 23:45 04/06/21 23:44 Docosanol (Abreva) 1 gm FIVE TIMES A DAY TP 01/29/21 20:00 04/29/21 19:59 01/31/21 10:29 Fentanyl Citrate 250 ml @ 15 mls/hr Q24H PRN IV AGITATION 01/30/21 22:01 02/01/21 22:00 01/30/21 23:09 Heparin Sodium/ Sodium Chloride (Heparin 1000 units/500ml Premix) 1,000 unit ONCE PRN IV PICC LINE PLACEMENT 01/29/21 11:45 01/31/21 11:44 Insulin Aspart (NovoLOG) EVERY 6 HOURS SUBQ 01/09/21 12:00 04/04/21 16:29 01/31/21 05:47 Ipratropium [place] (Atrovent Inh) 1 puffs Q6HRT INH 01/02/21 19:00 02/01/21 18:59 01/31/21 07:46 Lansoprazole (Prevacid) 30 mg DAILY GT 01/24/21 09:00 02/15/21 08:59 01/31/21 09:11 Lidocaine HCl (Xylocaine 1% 30ml) 30 ml ONCE PRN INJ PICC LINE PLACEMENT 01/29/21 11:45 01/31/21 11:44 Midodrine (Pro-Amatine) 10 mg Q8HR ORAL 01/20/21 14:00 04/20/21 13:59 01/31/21 05:45 Norepinephrine Bitartrate 8 mg/ Dextrose 258 ml @ 0 mls/hr Q24H IV 01/28/21 20:00 01/31/21 19:59 01/29/21 20:11 Nystatin (Nystatin) 5 ml QID ORAL 01/25/21 18:00 02/01/21 17:59 01/31/21 09:10 Ondansetron HCl (Zofran) 4 mg Q4H PRN IVP Nausea & Vomiting 01/02/21 08:15 02/01/21 08:14 Piperacillin Sod/ Tazobactam Sod 3.375 gm/Sodium Chloride 110 ml @ 27.5 mls/hr Q8H IVPB 01/25/21 10:00 01/31/21 23:59 01/31/21 09:11 Potassium Chloride (K-Dur) 20 meq TWICE A DAY NG 01/20/21 13:00 04/20/21 12:59 01/31/21 09:10 Quetiapine Fumarate (SEROqueL) 100 mg Q12HR ORAL 01/20/21 15:00 03/06/21 14:59 01/31/21 09:10 Valproic Acid (Depakene) 500 mg Q12HR GT 01/22/21 21:00 02/21/21 20:59 01/31/21 09:09 Vancomycin HCl 300 ml @ 150 mls/hr Q8H IVPB 01/27/21 11:00 02/01/21 10:59 01/31/21 03:05 Vancomycin HCl ([facility] pharmacy to dose) 1 ea DAILY PRN MISC Per rx protocol 01/25/21 08:15 02/24/21 08:14 Warfarin Sodium (Coumadin per pharmacy) 1 ea DAILY PRN MISC Per rx protocol 01/02/21 08:30 02/01/21 08:29 Warfarin Sodium (Warfarin Sod) 3 mg DAILY@17 ORAL 01/31/21 17:00 01/31/21 17:01 Laboratory Tests 01/31/21 04:00: White Blood Count 6.1, Red Blood Count 3.72L, Hemoglobin 10.6L, Hematocrit 33.5L , Mean Corpuscular Volume 90, Mean Corpuscular Hemoglobin 28.4, Mean Corpuscular Hemoglobin Concent 31.5L, Red Cell Distribution Width 15.2H, Platelet Count 181, Mean Platelet Volume 8.7, Neutrophils (%) (Auto) 65.4, Lymphocytes (%) (Auto) 11.4L, Monocytes (%) (Auto) 14.1H, Eosinophils (%) (Auto) 3.7H, Basophils (%) (Auto) 5.5H, Prothrombin Time 17.4H, Prothromb Time International Ratio 1.6H, Sodium Level 139, Potassium Level 3.8, Chloride Level 104, Carbon Dioxide Level 26, Anion Gap 9, Blood Urea Nitrogen 5L, Creatinine 0.7, Estimat Glomerular Filtration Rate > 60, Glucose Level 233H, Calcium Level 8.6, Total Bilirubin 0.2, Aspartate Amino Transf (AST/SGOT) 24, Alanine Aminotransferase (ALT/SGPT) 24, Alkaline Phosphatase 119H, Total Protein 5.9L, Albumin 1.9L, Globulin 4.0, Albumin/Globulin Ratio 0.5L Height (Feet): 5 Height (Inches): 5.00 Weight (Pounds): 233 General Appearance: no apparent distress EENT: other - Intubated on mechanical ventilation Cardiovascular: tachycardia Respiratory/Chest: decreased breath sounds Abdomen: distended Avi Frye MD Jan 31, 2021 10:32
--- NOTE | 2021-01-31 10:35 | Surgery Progress Note ---
Surgery Progress Note Subjective Additional Comments off pressors improved trial weaning again if unable to extubate will plan trach Objective Last 24 Hour Vital Signs Date Time Temp Pulse Resp B/P (MAP) Pulse Ox O2 Delivery O2 Flow Rate FiO2 01/31/21 10:00 21 112/75 Mechanical Ventilator 45 01/31/21 10:00 97 22 112/75 (87) 96 01/31/21 09:30 86 22 103/67 (79) 94 01/31/21 09:00 89 22 108/68 (81) 97 01/31/21 09:00 22 108/68 Mechanical Ventilator 45 01/31/21 08:30 80 22 105/67 (80) 96 01/31/21 08:00 45 01/31/21 08:00 Mechanical Ventilator 01/31/21 08:00 22 103/66 Mechanical Ventilator 45 01/31/21 08:00 98.6 87 22 103/66 (78) 95 01/31/21 08:00 83 01/31/21 07:47 85 22 96 Mechanical Ventilator 45 88 22 45 01/31/21 07:30 90 22 100/68 (79) 94 01/31/21 07:00 22 113/74 Mechanical Ventilator 45 01/31/21 07:00 100 22 113/74 (87) 96 01/31/21 06:30 88 22 102/75 (84) 98 01/31/21 06:00 99 22 105/75 (85) 97 01/31/21 06:00 22 99/75 Mechanical Ventilator 45 01/31/21 05:05 86 22 45 01/31/21 05:00 21 114/81 Mechanical Ventilator 45 01/31/21 05:00 99 22 105/75 (85) 97 01/31/21 04:30 89 22 104/69 (81) 01/31/21 04:00 Mechanical Ventilator 01/31/21 04:00 22 100/60 Mechanical Ventilator 45 01/31/21 04:00 99.0 92 22 98/67 (77) 01/31/21 04:00 90 01/31/21 04:00 45 01/31/21 03:30 102 22 103/57 (72) 98 01/31/21 03:13 96 22 45 01/31/21 03:00 22 98/56 Mechanical Ventilator 45 01/31/21 03:00 95 22 103/69 (80) 100 01/31/21 02:30 112 21 112/72 (85) 100 01/31/21 02:15 108 22 114/72 (86) 100 01/31/21 02:00 89 22 97/64 (75) 100 01/31/21 02:00 21 133/70 Mechanical Ventilator 45 01/31/21 01:30 86 22 104/71 (82) 100 01/31/21 01:15 93 22 108/78 (88) 100 01/31/21 01:07 104 26 45 01/31/21 01:00 96 22 106/69 (81) 99 01/31/21 01:00 92 22 120/85 (97) 100 01/31/21 01:00 22 114/72 Mechanical Ventilator 45 01/31/21 00:45 95 20 117/83 (94) 100 01/31/21 00:30 93 22 104/70 (81) 100 01/31/21 00:00 92 01/31/21 00:00 Mechanical Ventilator 01/31/21 00:00 22 104/75 Mechanical Ventilator 45 01/31/21 00:00 45 01/31/21 00:00 98.4 90 22 108/71 (83) 100 01/30/21 23:30 92 22 120/85 (97) 100 01/30/21 23:09 21 113/75 Mechanical Ventilator 50 01/30/21 23:00 91 22 45 01/30/21 23:00 94 22 122/85 (97) 100 01/30/21 22:30 88 19 112/72 (85) 100 01/30/21 22:00 79 19 113/76 (88) 100 01/30/21 22:00 21 113/76 Mechanical Ventilator 45 01/30/21 21:30 79 20 112/82 (92) 100 01/30/21 21:19 82 22 45 01/30/21 21:00 79 22 113/76 (88) 100 01/30/21 21:00 22 113/76 Mechanical Ventilator 45 01/30/21 20:30 98.6 83 22 130/84 (99) 100 01/30/21 20:00 76 22 122/84 (97) 99 01/30/21 20:00 45 01/30/21 20:00 Mechanical Ventilator 01/30/21 20:00 85 3/3/21 20:00 112/82 01/30/21 20:00 122/85 01/30/21 20:00 22 112/82 Mechanical Ventilator 45 01/30/21 19:13 72 22 45 01/30/21 19:00 131/88 01/30/21 19:00 20 131/88 Mechanical Ventilator 45 01/30/21 19:00 77 20 131/88 (102) 100 01/30/21 18:00 76 22 122/84 (97) 99 01/30/21 18:00 122/84 01/30/21 18:00 22 122/84 Mechanical Ventilator 45 01/30/21 17:00 84 21 148/97 (114) 98 01/30/21 17:00 148/97 01/30/21 17:00 21 148/97 Mechanical Ventilator 45 01/30/21 16:03 90 01/30/21 16:00 Mechanical Ventilator 01/30/21 16:00 45 01/30/21 16:00 107/84 01/30/21 16:00 22 107/84 Mechanical Ventilator 45 01/30/21 16:00 98.5 90 22 107/84 (92) 96 01/30/21 15:00 114 22 124/80 (95) 97 01/30/21 15:00 124/80 01/30/21 15:00 22 124/80 Mechanical Ventilator 45 01/30/21 14:30 134 26 45 01/30/21 14:00 110 29 127/80 (96) 95 01/30/21 14:00 127/80 01/30/21 14:00 29 127/80 Mechanical Ventilator 45 01/30/21 13:00 122/78 01/30/21 13:00 23 122/78 Mechanical Ventilator 45 01/30/21 13:00 110 23 122/78 (93) 100 01/30/21 12:35 119 24 45 01/30/21 12:00 45 01/30/21 12:00 98.9 89 22 123/77 (92) 94 01/30/21 12:00 123/77 01/30/21 12:00 22 123/77 Mechanical Ventilator 45 01/30/21 12:00 Mechanical Ventilator 01/30/21 11:55 90 01/30/21 11:00 91 22 115/73 (87) 92 01/30/21 11:00 115/73 01/30/21 11:00 22 115/73 Mechanical Ventilator 45 I&O Intake and Output 01/30/21 01/31/21 19:00 07:00 Intake Total 1416.51 ml 1492.5 ml Output Total 640 ml 901 ml Balance 776.51 ml 591.5 ml Free Water 120 ml IV Total 906.51 ml 602.5 ml Tube Feeding 510 ml 770 ml Output Urine Total 640 ml 900 ml Stool Total 1 ml # Bowel Movements 1 Dressing: saturated Cardiovascular: RSR Respiratory: decreased breath sounds, other Abdomen: soft, non-tender, present bowel sounds, non-distended Extremities: no tenderness, no cyanosis Laboratory Tests Test 01/31/21 04:00 White Blood Count 6.1 K/UL (4.8-10.8) Red Blood Count 3.72 M/UL (4.70-6.10) L Hemoglobin 10.6 G/DL (14.2-18.0) L Hematocrit 33.5 % (42.0-52.0) L Mean Corpuscular Volume 90 FL (80-99) Mean Corpuscular Hemoglobin 28.4 PG (27.0-31.0) Mean Corpuscular Hemoglobin Concent 31.5 G/DL (32.0-36.0) L Red Cell Distribution Width 15.2 % (11.6-14.8) H Platelet Count 181 K/UL (150-450) Mean Platelet Volume 8.7 FL (6.5-10.1) Neutrophils (%) (Auto) 65.4 % (45.0-75.0) Lymphocytes (%) (Auto) 11.4 % (20.0-45.0) L Monocytes (%) (Auto) 14.1 % (1.0-10.0) H Eosinophils (%) (Auto) 3.7 % (0.0-3.0) H Basophils (%) (Auto) 5.5 % (0.0-2.0) H Prothrombin Time 17.4 SEC (9.30-11.50) H Prothromb Time International Ratio 1.6 (0.9-1.1) H Sodium Level 139 MMOL/L (136-145) Potassium Level 3.8 MMOL/L (3.5-5.1) Chloride Level 104 MMOL/L (98-107) Carbon Dioxide Level 26 MMOL/L (21-32) Anion Gap 9 mmol/L (5-15) Blood Urea Nitrogen 5 mg/dL (7-18) L Creatinine 0.7 MG/DL (0.55-1.30) Estimat Glomerular Filtration Rate > 60 mL/min (>60) Glucose Level 233 MG/DL (74-106) H Calcium Level 8.6 MG/DL (8.5-10.1) Total Bilirubin 0.2 MG/DL (0.2-1.0) Aspartate Amino Transf (AST/SGOT) 24 U/L (15-37) Alanine Aminotransferase (ALT/SGPT) 24 U/L (12-78) Alkaline Phosphatase 119 U/L (46-116) H Total Protein 5.9 G/DL (6.4-8.2) L Albumin 1.9 G/DL (3.4-5.0) L Globulin 4.0 g/dL Albumin/Globulin Ratio 0.5 (1.0-2.7) L Plan Problems: (1) COPD (chronic obstructive pulmonary disease) (2) Essential hypertension (3) Schizophrenia (4) Obesity (5) Diabetes mellitus type 2 in obese (6) History of hydrocephalus (7) Anticoagulant long-term use (8) Bipolar 1 disorder (9) History of deep venous thrombosis or pulmonary embolus (10) Acute hypercapnic respiratory failure (11) Sepsis Assessment & Plan: 60-year-old male Covid positive respiratory insufficiency and severe decline being prone intubated on vent support labs noted septic ill-appearing has been developing wound around the face from ET tube.Receiv ed report from RT pt is being proned and was observed to have developed a blood blister under vent tape on L cheek and L earlobe. Skin assessed and pt was observed to have a blood blister that is 50% de-capped,50% intact. Intact Blood Blister noted to L earlobe. Skin Barrier applied to affected areas. Optifoam Thin foam placed between vent anchor and pt's skin. Optifoam thin placed to R cheek under Vent tape, on Bridge of nose and both earlobes. Given patient's critical status current care plan and findings nutritional optimization is strongly encouraged Covid nutrition plan initiated. All Covid precautions are being taken. Imaging reviewed. Will follow with care plan. Thank you [facility] participation care Tx.Plan: Maintain Optifoam Thin foam to R and L cheeks,Bridge of Nose and Both Ears . Change every 7 days and prn.( May request Optifoam Thin from RT dept). APM/PEPE Mattress overlay DAILY ESTIMATED NEEDS: Needs based on Critical care, pulmonary, obese 73.7kg abw 22-28 kcals/kg 4517-7931 total kcals 1.2-2 g protein/kg 88-147 g total protein 25-30 mL/kg 4473-9826 total fluid mLs NUTRITION DIAGNOSIS: Altered nutrition related lab values r/t steroidal meds, clinical status as evidenced by febrile on adm (102.5), elevated BG (270 287) on solumedrol, elevated lipid panel (Triglycerides 333, Chol 370, LDL 150). CURRENT TF:Vital @30ml/hr, now Nepro @30 ENTERAL NUTRITION RECOMMENDATIONS: NEPRO @30ml/hr while supine to provide x8 hrs feeds: 360ml, 648 kcal, 29g pro, 262ml free H2O - Feed at rate best tolerated, currently not meeting est needs d/t proning and aspiration risk w/ supine feeds limited to 8hrs/day. - W/ reduced aspiration risk rec feedings to total Volume of 900ml/day of Nepro as medically able. - Monitor tolerance, position/HOB >30 degrees, hemodynamic stability and ability to increase to meet est kcal and pro needs. - With increase pressor support, rec trophic feeds of 10ml/hr for gut integrity. - When tolerating TF at goal add Prosource BID to better meet est pro needs. ADDITIONAL RECOMMENDATIONS: 1) Now intubated, TF recs above when off proning (8hrs feeds) 2) Obtain calibrated bedscale wts 3) HgA1C/ elevated BG Need for niss while on D5 4) Lytes daily; replete as needed 5) Monitor triglycerides, TF tolerance, hemodynamic stability. (12) Respiratory failure with hypoxia Assessment & Plan: cont weaning vent wean pressors not ready for trach (13) Pneumonia due to COVID-19 virus (14) Hyperkalemia (15) DMII (diabetes mellitus, type 2) Ki Strong Jan 31, 2021 10:35
--- NOTE | 2021-01-31 13:25 | Internal Med Progress Note ---
Subjective Physician Name Geovanny Bradley Attending Physician Geovanny Bradley MD Current Medications Medications (Trade) Dose Ordered Sig/Johnny Route PRN Reason Start Time Stop Time Status Last Admin Dose Admin Acetaminophen (Tylenol) 650 mg Q6H PRN NG Temp >100.5 01/09/21 09:15 02/08/21 09:14 01/26/21 02:05 Acetaminophen (Tylenol) 650 mg Q6H PRN NG Mild Pain (Pain Scale 1-3) 01/09/21 09:15 02/08/21 09:14 01/27/21 05:10 Albuterol Sulfate (Proventil I) 2 puff Q6HRT INH 01/02/21 19:00 04/02/21 18:59 01/31/21 07:46 Benztropine Mesylate (Cogentin) 1 mg EVERY 12 HOURS NG 01/09/21 09:15 02/01/21 09:14 01/31/21 09:09 Chlorhexidine Gluconate (Myranda-Hex 2%) 1 applic DAILY@2000 TOPIC 01/29/21 20:00 04/29/21 19:59 01/30/21 20:12 Dextrose (Dextrose 50%) 25 ml Q30M PRN IV Hypoglycemia 01/06/21 23:45 04/06/21 23:44 Dextrose (Dextrose 50%) 50 ml Q30M PRN IV Hypoglycemia 01/06/21 23:45 04/06/21 23:44 Docosanol (Abreva) 1 gm FIVE TIMES A DAY TP 01/29/21 20:00 04/29/21 19:59 01/31/21 12:14 Fentanyl Citrate 250 ml @ 15 mls/hr Q24H PRN IV AGITATION 01/30/21 22:01 02/01/21 22:00 01/30/21 23:09 Insulin Aspart (NovoLOG) EVERY 6 HOURS SUBQ 01/09/21 12:00 04/04/21 16:29 01/31/21 12:14 Ipratropium [place] (Atrovent Inh) 1 puffs Q6HRT INH 01/02/21 19:00 02/01/21 18:59 01/31/21 07:46 Lansoprazole (Prevacid) 30 mg DAILY GT 01/24/21 09:00 02/15/21 08:59 01/31/21 09:11 Midodrine (Pro-Amatine) 10 mg Q8HR ORAL 01/20/21 14:00 04/20/21 13:59 01/31/21 13:03 Norepinephrine Bitartrate 8 mg/ Dextrose 258 ml @ 0 mls/hr Q24H IV 01/28/21 20:00 01/31/21 19:59 01/29/21 20:11 Nystatin (Nystatin) 5 ml QID ORAL 01/25/21 18:00 02/01/21 17:59 01/31/21 12:14 Ondansetron HCl (Zofran) 4 mg Q4H PRN IVP Nausea & Vomiting 01/02/21 08:15 02/01/21 08:14 Piperacillin Sod/ Tazobactam Sod 3.375 gm/Sodium Chloride 110 ml @ 27.5 mls/hr Q8H IVPB 01/25/21 10:00 01/31/21 23:59 01/31/21 09:11 Potassium Chloride (K-Dur) 20 meq TWICE A DAY NG 01/20/21 13:00 04/20/21 12:59 01/31/21 09:10 Quetiapine Fumarate (SEROqueL) 100 mg Q12HR ORAL 01/20/21 15:00 03/06/21 14:59 01/31/21 09:10 Valproic Acid (Depakene) 500 mg Q12HR GT 01/22/21 21:00 02/21/21 20:59 01/31/21 09:09 Vancomycin HCl 300 ml @ 150 mls/hr Q8H IVPB 01/27/21 11:00 02/01/21 10:59 01/31/21 10:41 [facility] 1 ea DAILY PRN MISC Per rx protocol 01/25/21 08:15 02/24/21 08:14 Warfarin Sodium (Coumadin per pharmacy) 1 ea DAILY PRN MISC Per rx protocol 01/02/21 08:30 02/01/21 08:29 Warfarin Sodium (Warfarin Sod) 3 mg DAILY@17 ORAL 01/31/21 17:00 01/31/21 17:01 Allergies: Coded Allergies: No Known Allergies (Unverified , 01/02/21) Subjective in MICU, intubated, remained on ventilation, INR: 1.6, open eyes, unable to F/U with commands. Objective Last Vital Signs Date Time Temp Pulse Resp B/P (MAP) Pulse Ox O2 Delivery O2 Flow Rate FiO2 01/31/21 13:00 98 21 113/85 (94) 96 01/31/21 13:00 Mechanical Ventilator 45 01/31/21 12:00 99.0 01/24/21 21:00 65.0 Laboratory Tests Test 01/31/21 04:00 White Blood Count 6.1 K/UL (4.8-10.8) Red Blood Count 3.72 M/UL (4.70-6.10) L Hemoglobin 10.6 G/DL (14.2-18.0) L Hematocrit 33.5 % (42.0-52.0) L Mean Corpuscular Volume 90 FL (80-99) Mean Corpuscular Hemoglobin 28.4 PG (27.0-31.0) Mean Corpuscular Hemoglobin Concent 31.5 G/DL (32.0-36.0) L Red Cell Distribution Width 15.2 % (11.6-14.8) H Platelet Count 181 K/UL (150-450) Mean Platelet Volume 8.7 FL (6.5-10.1) Neutrophils (%) (Auto) 65.4 % (45.0-75.0) Lymphocytes (%) (Auto) 11.4 % (20.0-45.0) L Monocytes (%) (Auto) 14.1 % (1.0-10.0) H Eosinophils (%) (Auto) 3.7 % (0.0-3.0) H Basophils (%) (Auto) 5.5 % (0.0-2.0) H Prothrombin Time 17.4 SEC (9.30-11.50) H Prothromb Time International Ratio 1.6 (0.9-1.1) H Sodium Level 139 MMOL/L (136-145) Potassium Level 3.8 MMOL/L (3.5-5.1) Chloride Level 104 MMOL/L (98-107) Carbon Dioxide Level 26 MMOL/L (21-32) Anion Gap 9 mmol/L (5-15) Blood Urea Nitrogen 5 mg/dL (7-18) L Creatinine 0.7 MG/DL (0.55-1.30) Estimat Glomerular Filtration Rate > 60 mL/min (>60) Glucose Level 233 MG/DL (74-106) H Calcium Level 8.6 MG/DL (8.5-10.1) Total Bilirubin 0.2 MG/DL (0.2-1.0) Aspartate Amino Transf (AST/SGOT) 24 U/L (15-37) Alanine Aminotransferase (ALT/SGPT) 24 U/L (12-78) Alkaline Phosphatase 119 U/L (46-116) H Total Protein 5.9 G/DL (6.4-8.2) L Albumin 1.9 G/DL (3.4-5.0) L Globulin 4.0 g/dL Albumin/Globulin Ratio 0.5 (1.0-2.7) L Intake and Output 01/30/21 01/31/21 19:00 07:00 Intake Total 1416.51 ml 1492.5 ml Output Total 640 ml 901 ml Balance 776.51 ml 591.5 ml Free Water 120 ml IV Total 906.51 ml 602.5 ml Tube Feeding 510 ml 770 ml Output Urine Total 640 ml 900 ml Stool Total 1 ml # Bowel Movements 1 Objective General: intubated, remained on ventilation, awake, open eyes, HEENT: NCAT, sclera anicteric, PERRL, ET Tube, OG Tube. Neck: Supple, no significant jugular venous distention, Lungs: mechanical breath sounds,,basal crackles, no Wheeze. Heart: Regular rate and rhythm, normal S1/S2, no murmurs Abdomen: soft, nontender, nondistended. Normoactive bowel sound, obesity. : Ferraro cath. Extremities: Left LE: No Cyanosis , clubbing or edema. Right LE AKA. Neuro: limited secondary to patient's status, more responsive, moving upper extremities. Skin: warm, no rashes or lesions. Assessment/Plan Assessment/Plan (1) Pneumonia due to COVID-19 virus ICD Codes: U07.1 - COVID-19; J12.82 - Pneumonia due to coronavirus disease 2018 SNOMED: 731448334856099619 (2) Acute hypercapnic respiratory failure >> intubated 01/06 ICD Codes: J96.02 - Acute respiratory failure with hypercapnia SNOMED: 541939726 (3) Respiratory failure with hypoxia ICD Codes: J96.91 - Respiratory failure, unspecified with hypoxia SNOMED: 39200517895118962 Qualifiers: Qualified Codes: J96.01 - Acute respiratory failure with hypoxia (4) COPD (chronic obstructive pulmonary disease) ICD Codes: J44.9 - Chronic obstructive pulmonary disease, unspecified SNOMED: 60628281 (5) History of deep venous thrombosis or pulmonary embolus SNOMED: 457326220 (6) Obesity ICD Codes: E66.9 - Obesity, unspecified SNOMED: 162277161, 172828447 (7) Essential hypertension ICD Codes: I10 - Essential (primary) hypertension SNOMED: 29918247 (8) Diabetes mellitus type 2 in obese ICD Codes: E11.69 - Type 2 diabetes mellitus with other specified complication; E66.9 - Obesity, unspecified SNOMED: 70956896 (9) History of hydrocephalus ICD Codes: Z86.69 - Personal history of other diseases of the nervous system and sense organs SNOMED: 437743190 (10) Schizophrenia ICD Codes: F20.9 - Schizophrenia, unspecified SNOMED: 40347385 (11) Bipolar 1 disorder ICD Codes: F31.9 - Bipolar disorder, unspecified SNOMED: 175783492 (12) Anticoagulant long-term use ICD Codes: Z79.01 - longterm (current) use of anticoagulants SNOMED: 728958320 Assessment/Plan: Optimize pulmonary hygiene/mobilize as tolerated Completed Remdesivir IV Abx: Vanco IV and Zosyn IV F/U Cx's Monitor volumes and renal function DVT Px: Coumadin Monitor blood glucose level closely. FULL Code Tolerated Tube feeding @ 60 cc/hr. Geovanny Bradley MD Jan 31, 2021 13:25
--- NOTE | 2021-01-31 13:25 | Infectious Diseases Prog Note ---
Assessment/Plan 60yo M with: Septic SHock Receurrent Gram postiive bacteremia r/o gentry infection -01/25 Bcx 2/ sets GPC clustesr Staph epi bacteremia, m/l skin contaminant 01/10 BCx 12/01 +Staph epi 01/13 BCx Neg 01/25 BCx CoNS /01/28 BCx - CoNS 01/01 COVID pna, severe Acute hypoxia 01/01 COVID pna >> intubated 01/06- 50% FIo2 Febrile to 103; imporving Normal WBC Elevated AST 51 01/01 Tested positive for COVID at [facility] 01/02 COVID PCR positive 01/02 BCx NTD CXR: Multifocal pna MRSA nares neg 01/06 Intubated in ICU CXR: 1. Appropriately positioned endotracheal and enteric tubes. 2. Stable bilateral airspace disease. 01/07 Resp cx +Yasmine albicans (colonizer) 01/11 CXR: Interval improved bilateral lung aeration. Bibasilar infiltrates/atelectasis. Cr 1.1 HIV screen neg PMH: DM2 COPD HTN SNF resident Plan: Will need to have his fem line changed. Cont Vancomycin #7/7-10 and Zosyn #7/7-10 Repeat Blood Cx Monitor WBCs Monitor temps 01/22/21 steroids #19, on methylpred 20 IV q12 - defer course to Pulm/Primary, now tapering 01/19/21 SP Zosyn #10 2 SP vanco IV #1 01/09 SP CTX #7 01/07 SP azithro #5, RDV #5 This institution does not have access to convalescent plasma and only recommended to give in setting of clinical trial Monitor temp curve, hemodynamics Monitor resp status D/w RN Thank you for this consult. [facility] will continue to follow. Subjective Allergies: Coded Allergies: No Known Allergies (Unverified , 01/02/21) Afebrile Remains on Vent 45% O2 No Leukocytosis Blood Cx 01/28/21 CoNS Objective Last 24 Hour Vital Signs Date Time Temp Pulse Resp B/P (MAP) Pulse Ox O2 Delivery O2 Flow Rate FiO2 01/31/21 13:00 98 21 113/85 (94) 96 01/31/21 13:00 22 113/85 Mechanical Ventilator 45 01/31/21 12:00 24 107/71 Mechanical Ventilator 45 01/31/21 12:00 Mechanical Ventilator 3/4/21 12:00 92 01/31/21 12:00 45 01/31/21 12:00 99.0 95 22 107/71 (83) 94 01/31/21 11:16 95 22 45 01/31/21 11:00 95 22 106/71 (83) 93 01/31/21 11:00 22 106/71 Mechanical Ventilator 45 01/31/21 10:00 21 112/75 Mechanical Ventilator 45 01/31/21 10:00 97 22 112/75 (87) 96 01/31/21 09:30 86 22 103/67 (79) 94 01/31/21 09:00 89 22 108/68 (81) 97 01/31/21 09:00 22 108/68 Mechanical Ventilator 45 01/31/21 08:30 80 22 105/67 (80) 96 01/31/21 08:00 45 01/31/21 08:00 Mechanical Ventilator 01/31/21 08:00 22 103/66 Mechanical Ventilator 45 01/31/21 08:00 98.6 87 22 103/66 (78) 95 01/31/21 08:00 83 01/31/21 07:47 85 22 96 Mechanical Ventilator 45 88 22 45 01/31/21 07:30 90 22 100/68 (79) 94 01/31/21 07:00 22 113/74 Mechanical Ventilator 45 01/31/21 07:00 100 22 113/74 (87) 96 01/31/21 06:30 88 22 102/75 (84) 98 01/31/21 06:00 99 22 105/75 (85) 97 01/31/21 06:00 22 99/75 Mechanical Ventilator 45 01/31/21 05:05 86 22 45 01/31/21 05:00 21 114/81 Mechanical Ventilator 45 01/31/21 05:00 99 22 105/75 (85) 97 01/31/21 04:30 89 22 104/69 (81) 01/31/21 04:00 Mechanical Ventilator 01/31/21 04:00 22 100/60 Mechanical Ventilator 45 01/31/21 04:00 99.0 92 22 98/67 (77) 01/31/21 04:00 90 01/31/21 04:00 45 01/31/21 03:30 102 22 103/57 (72) 98 01/31/21 03:13 96 22 45 01/31/21 03:00 22 98/56 Mechanical Ventilator 45 01/31/21 03:00 95 22 103/69 (80) 100 01/31/21 02:30 112 21 112/72 (85) 100 01/31/21 02:15 108 22 114/72 (86) 100 01/31/21 02:00 89 22 97/64 (75) 100 01/31/21 02:00 21 133/70 Mechanical Ventilator 45 01/31/21 01:30 86 22 104/71 (82) 100 01/31/21 01:15 93 22 108/78 (88) 100 01/31/21 01:07 104 26 45 01/31/21 01:00 96 22 106/69 (81) 99 01/31/21 01:00 92 22 120/85 (97) 100 01/31/21 01:00 22 114/72 Mechanical Ventilator 45 01/31/21 00:45 95 20 117/83 (94) 100 01/31/21 00:30 93 22 104/70 (81) 100 01/31/21 00:00 92 01/31/21 00:00 Mechanical Ventilator 01/31/21 00:00 22 104/75 Mechanical Ventilator 45 01/31/21 00:00 45 01/31/21 00:00 98.4 90 22 108/71 (83) 100 01/30/21 23:30 92 22 120/85 (97) 100 01/30/21 23:09 21 113/75 Mechanical Ventilator 50 01/30/21 23:00 91 22 45 01/30/21 23:00 94 22 122/85 (97) 100 01/30/21 22:30 88 19 112/72 (85) 100 01/30/21 22:00 79 19 113/76 (88) 100 01/30/21 22:00 21 113/76 Mechanical Ventilator 45 01/30/21 21:30 79 20 112/82 (92) 100 01/30/21 21:19 82 22 45 01/30/21 21:00 79 22 113/76 (88) 100 01/30/21 21:00 22 113/76 Mechanical Ventilator 45 01/30/21 20:30 98.6 83 22 130/84 (99) 100 01/30/21 20:00 76 22 122/84 (97) 99 01/30/21 20:00 45 01/30/21 20:00 Mechanical Ventilator 01/30/21 20:00 85 01/30/21 20:00 112/82 01/30/21 20:00 122/85 01/30/21 20:00 22 112/82 Mechanical Ventilator 45 01/30/21 19:13 72 22 45 01/30/21 19:00 131/88 01/30/21 19:00 20 131/88 Mechanical Ventilator 45 01/30/21 19:00 77 20 131/88 (102) 100 01/30/21 18:00 76 22 122/84 (97) 99 01/30/21 18:00 122/84 01/30/21 18:00 22 122/84 Mechanical Ventilator 45 01/30/21 17:00 84 21 148/97 (114) 98 01/30/21 17:00 148/97 01/30/21 17:00 21 148/97 Mechanical Ventilator 45 01/30/21 16:03 90 01/30/21 16:00 Mechanical Ventilator 01/30/21 16:00 45 01/30/21 16:00 107/84 01/30/21 16:00 22 107/84 Mechanical Ventilator 45 01/30/21 16:00 98.5 90 22 107/84 (92) 96 01/30/21 15:00 114 22 124/80 (95) 97 01/30/21 15:00 124/80 01/30/21 15:00 22 124/80 Mechanical Ventilator 45 01/30/21 14:30 134 26 45 01/30/21 14:00 110 29 127/80 (96) 95 01/30/21 14:00 127/80 01/30/21 14:00 29 127/80 Mechanical Ventilator 45 Height (Feet): 5 Height (Inches): 5.00 Weight (Pounds): 233 Gen: NAD on Vent 45% O2, Not following HEENT: NCAT, ETT Pulm: BL chest rise, RRR Skin: No visible rashes Neuro: Not following Lines Fem line and PICC lines in place Laboratory Tests Test 01/31/21 04:00 White Blood Count 6.1 K/UL (4.8-10.8) Red Blood Count 3.72 M/UL (4.70-6.10) L Hemoglobin 10.6 G/DL (14.2-18.0) L Hematocrit 33.5 % (42.0-52.0) L Mean Corpuscular Volume 90 FL (80-99) Mean Corpuscular Hemoglobin 28.4 PG (27.0-31.0) Mean Corpuscular Hemoglobin Concent 31.5 G/DL (32.0-36.0) L Red Cell Distribution Width 15.2 % (11.6-14.8) H Platelet Count 181 K/UL (150-450) Mean Platelet Volume 8.7 FL (6.5-10.1) Neutrophils (%) (Auto) 65.4 % (45.0-75.0) Lymphocytes (%) (Auto) 11.4 % (20.0-45.0) L Monocytes (%) (Auto) 14.1 % (1.0-10.0) H Eosinophils (%) (Auto) 3.7 % (0.0-3.0) H Basophils (%) (Auto) 5.5 % (0.0-2.0) H Prothrombin Time 17.4 SEC (9.30-11.50) H Prothromb Time International Ratio 1.6 (0.9-1.1) H Sodium Level 139 MMOL/L (136-145) Potassium Level 3.8 MMOL/L (3.5-5.1) Chloride Level 104 MMOL/L (98-107) Carbon Dioxide Level 26 MMOL/L (21-32) Anion Gap 9 mmol/L (5-15) Blood Urea Nitrogen 5 mg/dL (7-18) L Creatinine 0.7 MG/DL (0.55-1.30) Estimat Glomerular Filtration Rate > 60 mL/min (>60) Glucose Level 233 MG/DL (74-106) H Calcium Level 8.6 MG/DL (8.5-10.1) Total Bilirubin 0.2 MG/DL (0.2-1.0) Aspartate Amino Transf (AST/SGOT) 24 U/L (15-37) Alanine Aminotransferase (ALT/SGPT) 24 U/L (12-78) Alkaline Phosphatase 119 U/L (46-116) H Total Protein 5.9 G/DL (6.4-8.2) L Albumin 1.9 G/DL (3.4-5.0) L Globulin 4.0 g/dL Albumin/Globulin Ratio 0.5 (1.0-2.7) L Current Medications Medications (Trade) Dose Ordered Sig/Johnny Route PRN Reason Start Time Stop Time Status Last Admin Dose Admin Acetaminophen (Tylenol) 650 mg Q6H PRN NG Temp >100.5 01/09/21 09:15 02/08/21 09:14 01/26/21 02:05 Acetaminophen (Tylenol) 650 mg Q6H PRN NG Mild Pain (Pain Scale 1-3) 01/09/21 09:15 02/08/21 09:14 01/27/21 05:10 Albuterol Sulfate (Proventil MDI) 2 puff Q6HRT INH 01/02/21 19:00 04/02/21 18:59 01/31/21 07:46 Benztropine Mesylate (Cogentin) 1 mg EVERY 12 HOURS NG 01/09/21 09:15 02/01/21 09:14 01/31/21 09:09 Chlorhexidine Gluconate (Myranda-Hex 2%) 1 applic DAILY@2000 TOPIC 01/29/21 20:00 04/29/21 19:59 01/30/21 20:12 Dextrose (Dextrose 50%) 25 ml Q30M PRN IV Hypoglycemia 01/06/21 23:45 04/06/21 23:44 Dextrose (Dextrose 50%) 50 ml Q30M PRN IV Hypoglycemia 01/06/21 23:45 04/06/21 23:44 Docosanol (Abreva) 1 gm FIVE TIMES A DAY TP 01/29/21 20:00 04/29/21 19:59 01/31/21 12:14 Fentanyl Citrate 250 ml @ 15 mls/hr Q24H PRN IV AGITATION 01/30/21 22:01 02/01/21 22:00 01/30/21 23:09 Insulin Aspart (NovoLOG) EVERY 6 HOURS SUBQ 01/09/21 12:00 04/04/21 16:29 01/31/21 12:14 Ipratropium [place] (Atrovent Inh) 1 puffs Q6HRT INH 01/02/21 19:00 02/01/21 18:59 01/31/21 07:46 Lansoprazole (Prevacid) 30 mg DAILY GT 01/24/21 09:00 02/15/21 08:59 01/31/21 09:11 Midodrine (Pro-Amatine) 10 mg Q8HR ORAL 01/20/21 14:00 04/20/21 13:59 01/31/21 13:03 Norepinephrine Bitartrate 8 mg/ Dextrose 258 ml @ 0 mls/hr Q24H IV 01/28/21 20:00 01/31/21 19:59 01/29/21 20:11 Nystatin (Nystatin) 5 ml QID ORAL 01/25/21 18:00 02/01/21 17:59 01/31/21 12:14 Ondansetron HCl (Zofran) 4 mg Q4H PRN IVP Nausea & Vomiting 01/02/21 08:15 02/01/21 08:14 Piperacillin Sod/ Tazobactam Sod 3.375 gm/Sodium Chloride 110 ml @ 27.5 mls/hr Q8H IVPB 01/25/21 10:00 01/31/21 23:59 01/31/21 09:11 Potassium Chloride (K-Dur) 20 meq TWICE A DAY NG 01/20/21 13:00 04/20/21 12:59 01/31/21 09:10 Quetiapine Fumarate (SEROqueL) 100 mg Q12HR ORAL 01/20/21 15:00 03/06/21 14:59 01/31/21 09:10 Valproic Acid (Depakene) 500 mg Q12HR GT 01/22/21 21:00 02/21/21 20:59 01/31/21 09:09 Vancomycin HCl 300 ml @ 150 mls/hr Q8H IVPB 01/27/21 11:00 02/01/21 10:59 01/31/21 10:41 Vancomycin HCl (Vanco pharmacy to dose) 1 ea DAILY PRN MISC Per rx protocol 01/25/21 08:15 02/24/21 08:14 Warfarin Sodium (Coumadin per pharmacy) 1 ea DAILY PRN MISC Per rx protocol 01/02/21 08:30 02/01/21 08:29 Warfarin Sodium (Warfarin Sod) 3 mg DAILY@17 ORAL 01/31/21 17:00 01/31/21 17:01 Anuel Crespo MD Jan 31, 2021 13:25
--- NOTE | 2021-01-31 14:41 | Pulmonology Progress Note ---
Subjective ROS Limited/Unobtainable: Yes Allergies: Coded Allergies: No Known Allergies (Unverified , 01/02/21) Objective Last 24 Hour Vital Signs Date Time Temp Pulse Resp B/P (MAP) Pulse Ox O2 Delivery O2 Flow Rate FiO2 01/31/21 14:00 87 22 106/70 (82) 96 01/31/21 14:00 22 106/70 Mechanical Ventilator 45 01/31/21 13:00 98 21 113/85 (94) 96 01/31/21 13:00 22 113/85 Mechanical Ventilator 45 01/31/21 12:00 24 107/71 Mechanical Ventilator 45 01/31/21 12:00 Mechanical Ventilator 01/31/21 12:00 92 01/31/21 12:00 45 01/31/21 12:00 99.0 95 22 107/71 (83) 94 01/31/21 11:16 95 22 45 01/31/21 11:00 95 22 106/71 (83) 93 01/31/21 11:00 22 106/71 Mechanical Ventilator 45 01/31/21 10:00 21 112/75 Mechanical Ventilator 45 01/31/21 10:00 97 22 112/75 (87) 96 01/31/21 09:30 86 22 103/67 (79) 94 01/31/21 09:00 89 22 108/68 (81) 97 01/31/21 09:00 22 108/68 Mechanical Ventilator 45 01/31/21 08:30 80 22 105/67 (80) 96 01/31/21 08:00 45 01/31/21 08:00 Mechanical Ventilator 01/31/21 08:00 22 103/66 Mechanical Ventilator 45 01/31/21 08:00 98.6 87 22 103/66 (78) 95 01/31/21 08:00 83 01/31/21 07:47 85 22 96 Mechanical Ventilator 45 88 22 45 01/31/21 07:30 90 22 100/68 (79) 94 01/31/21 07:00 22 113/74 Mechanical Ventilator 45 01/31/21 07:00 100 22 113/74 (87) 96 01/31/21 06:30 88 22 102/75 (84) 98 01/31/21 06:00 99 22 105/75 (85) 97 01/31/21 06:00 22 99/75 Mechanical Ventilator 45 01/31/21 05:05 86 22 45 01/31/21 05:00 21 114/81 Mechanical Ventilator 45 01/31/21 05:00 99 22 105/75 (85) 97 01/31/21 04:30 89 22 104/69 (81) 01/31/21 04:00 Mechanical Ventilator 01/31/21 04:00 22 100/60 Mechanical Ventilator 45 01/31/21 04:00 99.0 92 22 98/67 (77) 01/31/21 04:00 90 01/31/21 04:00 45 01/31/21 03:30 102 22 103/57 (72) 98 01/31/21 03:13 96 22 45 01/31/21 03:00 22 98/56 Mechanical Ventilator 45 01/31/21 03:00 95 22 103/69 (80) 100 01/31/21 02:30 112 21 112/72 (85) 100 01/31/21 02:15 108 22 114/72 (86) 100 01/31/21 02:00 89 22 97/64 (75) 100 01/31/21 02:00 21 133/70 Mechanical Ventilator 45 01/31/21 01:30 86 22 104/71 (82) 100 01/31/21 01:15 93 22 108/78 (88) 100 01/31/21 01:07 104 26 45 01/31/21 01:00 96 22 106/69 (81) 99 01/31/21 01:00 92 22 120/85 (97) 100 01/31/21 01:00 22 114/72 Mechanical Ventilator 45 01/31/21 00:45 95 20 117/83 (94) 100 01/31/21 00:30 93 22 104/70 (81) 100 01/31/21 00:00 92 01/31/21 00:00 Mechanical Ventilator 01/31/21 00:00 22 104/75 Mechanical Ventilator 45 01/31/21 00:00 45 01/31/21 00:00 98.4 90 22 108/71 (83) 100 01/30/21 23:30 92 22 120/85 (97) 100 01/30/21 23:09 21 113/75 Mechanical Ventilator 50 01/30/21 23:00 91 22 45 01/30/21 23:00 94 22 122/85 (97) 100 01/30/21 22:30 88 19 112/72 (85) 100 01/30/21 22:00 79 19 113/76 (88) 100 01/30/21 22:00 21 113/76 Mechanical Ventilator 45 01/30/21 21:30 79 20 112/82 (92) 100 01/30/21 21:19 82 22 45 01/30/21 21:00 79 22 113/76 (88) 100 01/30/21 21:00 22 113/76 Mechanical Ventilator 45 01/30/21 20:30 98.6 83 22 130/84 (99) 100 01/30/21 20:00 76 22 122/84 (97) 99 01/30/21 20:00 45 01/30/21 20:00 Mechanical Ventilator 01/30/21 20:00 85 01/30/21 20:00 112/82 01/30/21 20:00 122/85 01/30/21 20:00 22 112/82 Mechanical Ventilator 45 01/30/21 19:13 72 22 45 01/30/21 19:00 131/88 01/30/21 19:00 20 131/88 Mechanical Ventilator 45 01/30/21 19:00 77 20 131/88 (102) 100 01/30/21 18:00 76 22 122/84 (97) 99 01/30/21 18:00 122/84 01/30/21 18:00 22 122/84 Mechanical Ventilator 45 01/30/21 17:00 84 21 148/97 (114) 98 01/30/21 17:00 148/97 01/30/21 17:00 21 148/97 Mechanical Ventilator 45 01/30/21 16:03 90 01/30/21 16:00 Mechanical Ventilator 01/30/21 16:00 45 01/30/21 16:00 107/84 01/30/21 16:00 22 107/84 Mechanical Ventilator 45 01/30/21 16:00 98.5 90 22 107/84 (92) 96 01/30/21 15:00 114 22 124/80 (95) 97 01/30/21 15:00 124/80 01/30/21 15:00 22 124/80 Mechanical Ventilator 45 Intake and Output 01/30/21 01/31/21 19:00 07:00 Intake Total 1416.51 ml 1492.5 ml Output Total 640 ml 901 ml Balance 776.51 ml 591.5 ml Free Water 120 ml IV Total 906.51 ml 602.5 ml Tube Feeding 510 ml 770 ml Output Urine Total 640 ml 900 ml Stool Total 1 ml # Bowel Movements 1 Laboratory Tests 01/31/21 04:00: White Blood Count 6.1, Red Blood Count 3.72L, Hemoglobin 10.6L, Hematocrit 33.5L , Mean Corpuscular Volume 90, Mean Corpuscular Hemoglobin 28.4, Mean Corpuscular Hemoglobin Concent 31.5L, Red Cell Distribution Width 15.2H, Platelet Count 181, Mean Platelet Volume 8.7, Neutrophils (%) (Auto) 65.4, Lymphocytes (%) (Auto) 11.4L, Monocytes (%) (Auto) 14.1H, Eosinophils (%) (Auto) 3.7H, Basophils (%) (Auto) 5.5H, Prothrombin Time 17.4H, Prothromb Time International Ratio 1.6H, Sodium Level 139, Potassium Level 3.8, Chloride Level 104, Carbon Dioxide Level 26, Anion Gap 9, Blood Urea Nitrogen 5L, Creatinine 0.7, Estimat Glomerular Dandre tration Rate > 60, Glucose Level 233H, Calcium Level 8.6, Total Bilirubin 0.2, Aspartate Amino Transf (AST/SGOT) 24, Alanine Aminotransferase (ALT/SGPT) 24, Alkaline Phosphatase 119H, Total Protein 5.9L, Albumin 1.9L, Globulin 4.0, Albumin/Globulin Ratio 0.5L Current Medications Medications (Trade) Dose Ordered Sig/Johnny Route PRN Reason Start Time Stop Time Status Last Admin Dose Admin Acetaminophen (Tylenol) 650 mg Q6H PRN NG Temp >100.5 01/09/21 09:15 02/08/21 09:14 01/26/21 02:05 Acetaminophen (Tylenol) 650 mg Q6H PRN NG Mild Pain (Pain Scale 1-3) 01/09/21 09:15 02/08/21 09:14 01/27/21 05:10 Albuterol Sulfate (Proventil MDI) 2 puff Q6HRT INH 01/02/21 19:00 04/02/21 18:59 01/31/21 07:46 Benztropine Mesylate (Cogentin) 1 mg EVERY 12 HOURS NG 01/09/21 09:15 02/01/21 09:14 01/31/21 09:09 Chlorhexidine Gluconate (Myranda-Hex 2%) 1 applic DAILY@2000 TOPIC 01/29/21 20:00 04/29/21 19:59 01/30/21 20:12 Dextrose (Dextrose 50%) 25 ml Q30M PRN IV Hypoglycemia 01/06/21 23:45 04/06/21 23:44 Dextrose (Dextrose 50%) 50 ml Q30M PRN IV Hypoglycemia 01/06/21 23:45 04/06/21 23:44 Docosanol (Abreva) 1 gm FIVE TIMES A DAY TP 01/29/21 20:00 04/29/21 19:59 01/31/21 12:14 Fentanyl Citrate 250 ml @ 15 mls/hr Q24H PRN IV AGITATION 01/30/21 22:01 02/01/21 22:00 01/30/21 23:09 Insulin Aspart (NovoLOG) EVERY 6 HOURS SUBQ 01/09/21 12:00 04/04/21 16:29 01/31/21 12:14 Ipratropium [place] (Atrovent Inh) 1 puffs Q6HRT INH 01/02/21 19:00 02/01/21 18:59 01/31/21 07:46 Lansoprazole (Prevacid) 30 mg DAILY GT 01/24/21 09:00 02/15/21 08:59 01/31/21 09:11 Midodrine (Pro-Amatine) 10 mg Q8HR ORAL 01/20/21 14:00 04/20/21 13:59 01/31/21 13:03 Norepinephrine Bitartrate 8 mg/ Dextrose 258 ml @ 0 mls/hr Q24H IV 01/28/21 20:00 01/31/21 19:59 01/29/21 20:11 Nystatin (Nystatin) 5 ml QID ORAL 01/25/21 18:00 02/01/21 17:59 01/31/21 12:14 Ondansetron HCl (Zofran) 4 mg Q4H PRN IVP Nausea & Vomiting 01/02/21 08:15 02/01/21 08:14 Piperacillin Sod/ Tazobactam Sod 3.375 gm/Sodium Chloride 110 ml @ 27.5 mls/hr Q8H IVPB 01/25/21 10:00 02/03/21 09:59 01/31/21 09:11 Potassium Chloride (K-Dur) 20 meq TWICE A DAY NG 01/20/21 13:00 04/20/21 12:59 01/31/21 09:10 Quetiapine Fumarate (SEROqueL) 100 mg Q12HR ORAL 01/20/21 15:00 03/06/21 14:59 01/31/21 09:10 Valproic Acid (Depakene) 500 mg Q12HR GT 01/22/21 21:00 02/21/21 20:59 01/31/21 09:09 Vancomycin HCl 300 ml @ 150 mls/hr Q8H IVPB 01/27/21 11:00 02/03/21 10:59 01/31/21 10:41 Vancomycin HCl ([facility] pharmacy to dose) 1 ea DAILY PRN MISC Per rx protocol 01/25/21 08:15 02/24/21 08:14 Warfarin Sodium (Coumadin per pharmacy) 1 ea DAILY PRN MISC Per rx protocol 01/02/21 08:30 02/01/21 08:29 Warfarin Sodium (Warfarin Sod) 3 mg DAILY@17 ORAL 01/31/21 17:00 01/31/21 17:01 Assessment/Plan Assessment/Plan Pulmonary CCM Progress Note Seen on 01/30/2021 HPI Patient is a 60 man with prior h/o COPD, CPS/bipolar DO, 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, DM2, HTN and hydrocephalus Physical Exam Deferred Covid19 Vital Signs noted Laboratory Tests noted Imaging noted Height (Feet): 5 Height (Inches): 5.00 Weight (Pounds): 233 Medications Medications noted Assessment/Plan Problem List: (1) Pneumonia due to COVID-19 virus ICD Codes: U07.1 - COVID-19; J12.82 - Pneumonia due to coronavirus disease 2018 SNOMED: 662528792959762283 (2) Acute hypercapnic respiratory failure ICD Codes: J96.02 - Acute respiratory failure with hypercapnia SNOMED: 380126319 (3) Respiratory failure with hypoxia ICD Codes: J96.91 - Respiratory failure, unspecified with hypoxia SNOMED: 69000412850752478 Qualifiers: Qualified Codes: J96.01 - Acute respiratory failure with hypoxia (4) COPD (chronic obstructive pulmonary disease) ICD Codes: J44.9 - Chronic obstructive pulmonary disease, unspecified SNOMED: 63819837 (5) History of deep venous thrombosis or pulmonary embolus SNOMED: 485118641 (6) Obesity ICD Codes: E66.9 - Obesity, unspecified SNOMED: 512308337, 014168911 (7) Essential hypertension ICD Codes: I10 - Essential (primary) hypertension SNOMED: 52930671 (8) Diabetes mellitus type 2 in obese ICD Codes: E11.69 - Type 2 diabetes mellitus with other specified complication; E66.9 - Obesity, unspecified SNOMED: 57258342 (9) History of hydrocephalus ICD Codes: Z86.69 - Personal history of other diseases of the nervous system and sense organs SNOMED: 652303926 (10) Schizophrenia ICD Codes: F20.9 - Schizophrenia, unspecified SNOMED: 94014988 (11) Bipolar 1 disorder ICD Codes: F31.9 - Bipolar disorder, unspecified SNOMED: 305204710 (12) Anticoagulant long-term use ICD Codes: Z79.01 - residential (current) use of anticoagulants SNOMED: 636685367 Assessment/Plan: ACVC - adjust PRN Adjust FiO2 to keep SaO2 > 92% Reduce PEEP as tolerated Pressors PRN Sedation PRN HFA's F/U inflammatory markers and covid labs ID recs REM per ID Wean SM to off - 10QD previously Abx per ID F/U Cx's Monitor volumes and renal function,diuresis per Renal DVT Px: Coumadin TF when not proned FC Will need tracheostomy - did not tolerate weaning previously Seen on 01/30/2021 Anuel Luis MD Jan 31, 2021 14:41
[2021-01-31] MEDS: fentaNYL 2500mcg/NS 250ml 250 ML IV PRN (15:15)
[2021-01-31] MEDS ORDERED: Warfarin Sodium 1mg ORAL SCH (17:00)
[2021-01-31] MEDS: Dyna-Hex 2% Top Sol 2oz TOPIC SCH (19:53)
[2021-02-01] VITALS (50 sets, daily range): BP systolic 87–122; BP diastolic 52–81
[2021-02-01] MEDS: Ipratropium Bromide Inhaler INH SCH ×3 (01:17→12:56)
[2021-02-01] MEDS: Albuterol 90mcg Inhaler 8gm INH SCH ×4 (01:18→19:17)
[2021-02-01] MEDS: Piperacillin/Tazobactam 3.375 GM in NS 110 ML IVPB SCH (01:45)
[2021-02-01 05:16] LABS: HEMATOCRIT 35.9 % (42.0-52.0); HEMOGLOBIN 11.2 G/DL (14.2-18.0); LYMPHOCYTES % (AUTO) 26.4 % (20.0-45.0); MEAN CORPUSCULAR VOLUME 92 FL (80-99); MONOCYTES % (AUTO) 7.7 % (1.0-10.0); NEUTROPHILS % (AUTO) 60.8 % (45.0-75.0); PLATELET COUNT 233 K/UL (150-450); RED BLOOD COUNT 3.89 M/UL (4.70-6.10); RED CELL DISTRIBUTION WIDTH 15.9 % (11.6-14.8)
[2021-02-01 05:45] LABS: INR 1.3 (0.9-1.1)
[2021-02-01 05:49] LABS: ALANINE AMINOTRANSFERASE 20 U/L (12-78); ALBUMIN/GLOBULIN RATIO 0.5 (1.0-2.7); ALKALINE PHOSPHATASE 115 U/L (46-116); ANION GAP 9 mmol/L (5-15); ASPARTATE AMINO TRANSFERASE 13 U/L (15-37); BILIRUBIN,TOTAL 0.1 MG/DL (0.2-1.0); BLOOD UREA NITROGEN 6 mg/dL (7-18); CARBON DIOXIDE 27 MMOL/L (21-32); CHLORIDE 105 MMOL/L (98-107); CREATININE 0.7 MG/DL (0.55-1.30); PHOSPHORUS 3.4 MG/DL (2.5-4.9); POTASSIUM 4.2 MMOL/L (3.5-5.1); SODIUM 141 MMOL/L (136-145)
[2021-02-01] MEDS: NovoLOG Insulin Flexpen SUBQ SCH ×3 (06:02→17:37)
[2021-02-01] MEDS: Midodrine 10mg tab ORAL SCH ×3 (06:02→21:30)
[2021-02-01] MEDS: Abreva 10% cream 2gm TP SCH ×5 (06:03→19:00)
[2021-02-01] MEDS: Nystatin Susp 500,000 units/5ml ORAL SCH ×2 (08:34→12:26)
[2021-02-01] MEDS: Valproic Acid 250mg/5ml Liquid GT SCH ×2 (08:34→21:00)
[2021-02-01] MEDS: Benztropine 1mg tab NG SCH (08:35)
[2021-02-01] MEDS: fentaNYL 2500mcg/NS 250ml 250 ML IV PRN (08:36)
[2021-02-01] MEDS: Vancomycin 1.25gm/250ml Premix IVPB SCH ×2 (08:39→17:35)
--- NOTE | 2021-02-01 09:06 | Infectious Diseases Prog Note ---
Assessment/Plan 60yo M with: Septic SHock Receurrent Gram postiive bacteremia r/o gentry infection -01/25 Bcx / sets GPC clustesr Staph epi bacteremia infected fem line ? 01/10 BCx 12/01 +Staph epi 01/13 BCx Neg 01/25 BCx CoNS 2/2 01/28 BCx - CoNS /01/31/21 BCx - Pend COVID pna, severe Acute hypoxia 01/01 COVID pna >> intubated 01/06- 50% FIo2 Febrile to 103; imporving Normal WBC Elevated AST 51 01/01 Tested positive for COVID at [facility] 01/02 COVID PCR positive 01/02 BCx NTD CXR: Multifocal pna MRSA nares neg 01/06 Intubated in ICU CXR: 1. Appropriately positioned endotracheal and enteric tubes. 2. Stable bilateral airspace disease. 01/07 Resp cx +Yasmine albicans (colonizer) 01/11 CXR: Interval improved bilateral lung aeration. Bibasilar infiltrates/atelectasis. Cr 1.1 HIV screen neg PMH: DM2 COPD HTN SNF resident PICC placed 01/30/21 Plan: waiting for fem line to be removed Cont Vancomycin #9 Repeat Blood Cx Monitor WBCs Monitor temps 02/01/21 SP Zosyn #7 01/22/21 steroids #19, on methylpred 20 IV q12 - defer course to Pulm/Primary, now tapering 01/19/21 SP Zosyn #10 01/14 SP vanco IV #1 01/09 SP CTX #7 01/07 SP azithro #5, RDV #5 This institution does not have access to convalescent plasma and only recommended to give in setting of clinical trial Monitor temp curve, hemodynamics Monitor resp status D/w RN Thank you for this consult. [facility] will continue to follow. Subjective Allergies: Coded Allergies: No Known Allergies (Unverified , 01/02/21) Afebrile Remains on Vent 40% O2 No Leukocytosis Waiting for INR to improve so Fem line can be removed Objective Last 24 Hour Vital Signs Date Time Temp Pulse Resp B/P (MAP) Pulse Ox O2 Delivery O2 Flow Rate FiO2 02/01/21 08:36 22 103/69 Mechanical Ventilator 40 02/01/21 08:00 22 105/63 Mechanical Ventilator 40 02/01/21 07:54 86 22 97 40 88 22 3/5/21 07:36 83 02/01/21 07:00 22 110/68 Mechanical Ventilator 45 02/01/21 06:45 78 22 99/65 (76) 96 02/01/21 06:30 79 22 99/66 (77) 96 02/01/21 06:15 81 22 103/66 (78) 96 02/01/21 06:00 22 100/65 Mechanical Ventilator 45 02/01/21 06:00 98.7 81 22 100/65 (77) 95 02/01/21 05:45 84 20 105/73 (84) 98 02/01/21 05:30 82 22 102/65 (77) 96 02/01/21 05:15 82 22 104/65 (78) 97 02/01/21 05:14 80 22 45 02/01/21 05:00 22 104/65 Mechanical Ventilator 45 02/01/21 05:00 80 22 101/59 (73) 96 02/01/21 04:45 82 22 99/58 (72) 95 02/01/21 04:30 84 22 100/58 (72) 96 02/01/21 04:15 80 22 97/62 (74) 95 02/01/21 04:00 45 02/01/21 04:00 22 97/62 Mechanical Ventilator 45 02/01/21 04:00 98.7 84 22 95/60 (72) 95 02/01/21 04:00 Mechanical Ventilator 02/01/21 04:00 83 02/01/21 03:45 89 22 97/55 (69) 96 02/01/21 03:32 84 22 45 02/01/21 03:30 80 22 95/72 (80) 96 02/01/21 03:15 82 22 96/60 (72) 97 02/01/21 03:00 22 96/60 Mechanical Ventilator 45 02/01/21 03:00 81 22 96/61 (73) 96 02/01/21 02:45 83 22 96/59 (71) 96 02/01/21 02:30 98.7 90 22 101/55 (70) 96 02/01/21 02:15 91 22 94/70 (78) 97 02/01/21 02:00 88 22 91/55 (67) 94 02/01/21 02:00 22 94/70 Mechanical Ventilator 45 02/01/21 01:45 87 22 91/54 (66) 95 02/01/21 01:30 85 22 94/56 (69) 94 02/01/21 01:18 92 22 97 Mechanical Ventilator 45 93 22 45 02/01/21 01:15 94 22 108/64 (79) 100 02/01/21 01:00 88 22 99/66 (77) 98 02/01/21 01:00 22 108/64 Mechanical Ventilator 45 02/01/21 00:45 80 22 89/55 (66) 97 02/01/21 00:30 81 22 89/54 (66) 98 02/01/21 00:15 81 22 88/52 (64) 98 02/01/21 00:00 Mechanical Ventilator 02/01/21 00:00 22 88/52 Mechanical Ventilator 45 02/01/21 00:00 45 02/01/21 00:00 86 22 87/53 (64) 98 02/01/21 00:00 95 01/31/21 23:48 86 22 92/57 (69) 98 01/31/21 23:45 87 22 83/47 (59) 98 01/31/21 23:30 93 19 110/83 (92) 98 01/31/21 23:27 77 22 45 01/31/21 23:15 79 22 90/59 (69) 98 01/31/21 23:00 98.8 76 22 90/60 (70) 98 01/31/21 23:00 22 90/59 Mechanical Ventilator 45 01/31/21 22:45 78 22 89/59 (69) 98 01/31/21 22:30 79 22 90/60 (70) 98 01/31/21 22:15 81 22 90/59 (69) 99 01/31/21 22:00 82 22 88/59 (69) 98 01/31/21 22:00 22 90/59 Mechanical Ventilator 45 01/31/21 21:45 83 22 86/54 (65) 98 01/31/21 21:30 80 22 84/57 (66) 98 01/31/21 21:21 85 22 45 01/31/21 21:15 80 22 85/54 (64) 98 01/31/21 21:00 81 22 85/57 (66) 98 01/31/21 21:00 22 85/54 Mechanical Ventilator 45 01/31/21 20:45 82 22 86/62 (70) 97 01/31/21 20:30 85 22 90/55 (67) 97 01/31/21 20:15 87 21 91/67 (75) 98 01/31/21 20:00 97 01/31/21 20:00 97.6 84 22 92/68 (76) 99 01/31/21 20:00 22 91/67 Mechanical Ventilator 45 01/31/21 20:00 Mechanical Ventilator 01/31/21 19:45 82 22 84/58 (67) 98 01/31/21 19:30 87 22 88/58 (68) 100 01/31/21 19:29 82 22 95 Mechanical Ventilator 45 84 22 45 01/31/21 19:15 96 22 101/69 (80) 98 01/31/21 19:00 92 22 111/86 (94) 98 01/31/21 19:00 22 111/68 Mechanical Ventilator 45 01/31/21 18:00 75 22 84/53 (63) 95 01/31/21 18:00 22 84/53 Mechanical Ventilator 45 01/31/21 17:45 79 22 85/52 (63) 92 01/31/21 17:00 83 22 92/64 (73) 97 01/31/21 17:00 22 94/64 Mechanical Ventilator 45 01/31/21 16:45 88 21 101/73 (82) 97 01/31/21 16:30 100 22 104/66 (79) 97 01/31/21 16:16 45 01/31/21 16:15 121 28 144/99 (114) 98 01/31/21 16:00 97.2 115 24 124/81 (95) 98 01/31/21 16:00 22 124/81 Mechanical Ventilator 45 01/31/21 16:00 100 22 124/81 (95) 99 01/31/21 16:00 Mechanical Ventilator 01/31/21 16:00 111 01/31/21 15:45 88 19 114/76 (89) 94 01/31/21 15:30 91 25 111/71 (84) 93 01/31/21 15:16 45 01/31/21 15:15 22 111/85 Mechanical Ventilator 45 01/31/21 15:15 87 11 113/79 (90) 96 01/31/21 15:12 45 01/31/21 15:10 76 22 95 Mechanical Ventilator 45 81 22 45 01/31/21 15:00 76 22 99/69 (79) 94 01/31/21 15:00 22 99/69 Mechanical Ventilator 45 01/31/21 14:00 87 22 106/70 (82) 96 01/31/21 14:00 22 106/70 Mechanical Ventilator 45 01/31/21 13:00 98 21 113/85 (94) 96 01/31/21 13:00 22 113/85 Mechanical Ventilator 45 01/31/21 12:00 24 107/71 Mechanical Ventilator 45 01/31/21 12:00 Mechanical Ventilator 01/31/21 12:00 92 01/31/21 12:00 45 01/31/21 12:00 99.0 95 22 107/71 (83) 94 01/31/21 11:16 95 22 45 01/31/21 11:00 95 22 106/71 (83) 93 01/31/21 11:00 22 106/71 Mechanical Ventilator 45 01/31/21 10:00 21 112/75 Mechanical Ventilator 45 01/31/21 10:00 97 22 112/75 (87) 96 01/31/21 09:30 86 22 103/67 (79) 94 Height (Feet): 5 Height (Inches): 5.00 Weight (Pounds): 233 Gen: NAD on Vent 40% O2, Not following HEENT: NCAT, ETT Pulm: BL chest rise, RRR Skin: No visible rashes Neuro: Not following Lines Fem line and PICC lines in place Laboratory Tests Test 02/01/21 02:00 02/01/21 04:00 Vancomycin Level Trough 21.0 ug/mL (5.0-12.0) H White Blood Count 6.0 K/UL (4.8-10.8) Red Blood Count 3.89 M/UL (4.70-6.10) L Hemoglobin 11.2 G/DL (14.2-18.0) L Hematocrit 35.9 % (42.0-52.0) L Mean Corpuscular Volume 92 FL (80-99) Mean Corpuscular Hemoglobin 28.9 PG (27.0-31.0) Mean Corpuscular Hemoglobin Concent 31.3 G/DL (32.0-36.0) L Red Cell Distribution Width 15.9 % (11.6-14.8) H Platelet Count 233 K/UL (150-450) Mean Platelet Volume 8.3 FL (6.5-10.1) Neutrophils (%) (Auto) 60.8 % (45.0-75.0) Lymphocytes (%) (Auto) 26.4 % (20.0-45.0) Monocytes (%) (Auto) 7.7 % (1.0-10.0) Eosinophils (%) (Auto) 4.0 % (0.0-3.0) H Basophils (%) (Auto) 1.0 % (0.0-2.0) Prothrombin Time 14.5 SEC (9.30-11.50) H Prothromb Time International Ratio 1.3 (0.9-1.1) H Sodium Level 141 MMOL/L (136-145) Potassium Level 4.2 MMOL/L (3.5-5.1) Chloride Level 105 MMOL/L (98-107) Carbon Dioxide Level 27 MMOL/L (21-32) Anion Gap 9 mmol/L (5-15) Blood Urea Nitrogen 6 mg/dL (7-18) L Creatinine 0.7 MG/DL (0.55-1.30) Estimat Glomerular Filtration Rate > 60 mL/min (>60) Glucose Level 226 MG/DL (74-106) H Uric Acid 2.0 MG/DL (2.6-7.2) L Calcium Level 9.0 MG/DL (8.5-10.1) Phosphorus Level 3.4 MG/DL (2.5-4.9) Magnesium Level 1.8 MG/DL (1.8-2.4) Total Bilirubin 0.1 MG/DL (0.2-1.0) L Aspartate Amino Transf (AST/SGOT) 13 U/L (15-37) L Alanine Aminotransferase (ALT/SGPT) 20 U/L (12-78) Alkaline Phosphatase 115 U/L (46-116) C-Reactive Protein, Quantitative 10.3 mg/dL (0.00-0.90) H Pro-B-Type Natriuretic Peptide 467 pg/mL (0-125) H Total Protein 6.2 G/DL (6.4-8.2) L Albumin 2.0 G/DL (3.4-5.0) L Globulin 4.2 g/dL Albumin/Globulin Ratio 0.5 (1.0-2.7) L Current Medications Medications (Trade) Dose Ordered Sig/Johnny Route PRN Reason Start Time Stop Time Status Last Admin Dose Admin Acetaminophen (Tylenol) 650 mg Q6H PRN NG Temp >100.5 01/09/21 09:15 02/08/21 09:14 01/26/21 02:05 Acetaminophen (Tylenol) 650 mg Q6H PRN NG Mild Pain (Pain Scale 1-3) 01/09/21 09:15 02/08/21 09:14 01/27/21 05:10 Albuterol Sulfate (Proventil MDI) 2 puff Q6HRT INH 01/02/21 19:00 04/02/21 18:59 02/01/21 07:54 Benztropine Mesylate (Cogentin) 1 mg EVERY 12 HOURS NG 01/09/21 09:15 02/01/21 09:14 02/01/21 08:35 Chlorhexidine Gluconate (Myranda-Hex 2%) 1 applic DAILY@2000 TOPIC 01/29/21 20:00 04/29/21 19:59 01/31/21 19:53 Dextrose (Dextrose 50%) 25 ml Q30M PRN IV Hypoglycemia 01/06/21 23:45 04/06/21 23:44 Dextrose (Dextrose 50%) 50 ml Q30M PRN IV Hypoglycemia 01/06/21 23:45 04/06/21 23:44 Docosanol (Abreva) 1 gm FIVE TIMES A DAY TP 01/29/21 20:00 04/29/21 19:59 02/01/21 06:03 Fentanyl Citrate 250 ml @ 15 mls/hr Q24H PRN IV AGITATION 01/30/21 22:01 02/01/21 22:00 02/01/21 08:36 Insulin Aspart (NovoLOG) EVERY 6 HOURS SUBQ 01/09/21 12:00 04/04/21 16:29 02/01/21 06:02 Ipratropium [place] (Atrovent Inh) 1 puffs Q6HRT INH 01/02/21 19:00 02/01/21 18:59 02/01/21 07:54 Lansoprazole (Prevacid) 30 mg DAILY GT 01/24/21 09:00 02/15/21 08:59 02/01/21 08:34 Midodrine (Pro-Amatine) 10 mg Q8HR ORAL 01/20/21 14:00 04/20/21 13:59 02/01/21 06:02 Nystatin (Nystatin) 5 ml QID ORAL 01/25/21 18:00 02/01/21 17:59 02/01/21 08:34 Piperacillin Sod/ Tazobactam Sod 3.375 gm/Sodium Chloride 110 ml @ 27.5 mls/hr Q8H IVPB 01/25/21 10:00 02/03/21 09:59 02/01/21 01:45 Potassium Chloride (K-Dur) 20 meq TWICE A DAY NG 01/20/21 13:00 04/20/21 12:59 02/01/21 08:35 Quetiapine Fumarate (SEROqueL) 100 mg Q12HR ORAL 01/20/21 15:00 03/06/21 14:59 02/01/21 08:34 Valproic Acid (Depakene) 500 mg Q12HR GT 01/22/21 21:00 02/21/21 20:59 02/01/21 08:34 Vancomycin HCl 250 ml @ 166.667 mls/hr Q8H IVPB 02/01/21 09:00 02/06/21 08:59 02/01/21 08:39 Vancomycin HCl (Vanco pharmacy to dose) 1 ea DAILY PRN MISC Per rx protocol 01/25/21 08:15 02/24/21 08:14 Warfarin Sodium (Coumadin) 5 mg DAILY@17 ORAL 02/01/21 17:00 02/01/21 17:01 Anuel Crespo MD Feb 01, 2021 09:06
--- NOTE | 2021-02-01 11:04 | Surgery Progress Note ---
Surgery Progress Note Subjective Additional Comments improving but not weaning for extubation off pressors likely trach next week Objective Last 24 Hour Vital Signs Date Time Temp Pulse Resp B/P (MAP) Pulse Ox O2 Delivery O2 Flow Rate FiO2 02/01/21 10:00 75 22 106/68 (81) 97 02/01/21 10:00 22 106/68 Mechanical Ventilator 40 02/01/21 09:00 83 20 112/73 (86) 97 02/01/21 09:00 22 116/72 Mechanical Ventilator 40 02/01/21 08:36 22 103/69 Mechanical Ventilator 40 02/01/21 08:00 22 105/63 Mechanical Ventilator 40 02/01/21 08:00 40 02/01/21 08:00 Mechanical Ventilator 02/01/21 08:00 98.6 89 21 119/81 (94) 100 02/01/21 07:54 86 22 97 40 88 22 02/01/21 07:36 83 02/01/21 07:00 22 110/68 Mechanical Ventilator 45 02/01/21 06:45 78 22 99/65 (76) 96 02/01/21 06:30 79 22 99/66 (77) 96 02/01/21 06:15 81 22 103/66 (78) 96 02/01/21 06:00 22 100/65 Mechanical Ventilator 45 02/01/21 06:00 98.7 81 22 100/65 (77) 95 02/01/21 05:45 84 20 105/73 (84) 98 02/01/21 05:30 82 22 102/65 (77) 96 02/01/21 05:15 82 22 104/65 (78) 97 02/01/21 05:14 80 22 45 02/01/21 05:00 22 104/65 Mechanical Ventilator 45 02/01/21 05:00 80 22 101/59 (73) 96 02/01/21 04:45 82 22 99/58 (72) 95 02/01/21 04:30 84 22 100/58 (72) 96 02/01/21 04:15 80 22 97/62 (74) 95 02/01/21 04:00 45 02/01/21 04:00 22 97/62 Mechanical Ventilator 45 02/01/21 04:00 98.7 84 22 95/60 (72) 95 02/01/21 04:00 Mechanical Ventilator 02/01/21 04:00 83 02/01/21 03:45 89 22 97/55 (69) 96 02/01/21 03:32 84 22 45 02/01/21 03:30 80 22 95/72 (80) 96 02/01/21 03:15 82 22 96/60 (72) 97 02/01/21 03:00 22 96/60 Mechanical Ventilator 45 02/01/21 03:00 81 22 96/61 (73) 96 02/01/21 02:45 83 22 96/59 (71) 96 02/01/21 02:30 98.7 90 22 101/55 (70) 96 02/01/21 02:15 91 22 94/70 (78) 97 02/01/21 02:00 88 22 91/55 (67) 94 02/01/21 02:00 22 94/70 Mechanical Ventilator 45 02/01/21 01:45 87 22 91/54 (66) 95 02/01/21 01:30 85 22 94/56 (69) 94 02/01/21 01:18 92 22 97 Mechanical Ventilator 45 93 22 45 02/01/21 01:15 94 22 108/64 (79) 100 02/01/21 01:00 88 22 99/66 (77) 98 02/01/21 01:00 22 108/64 Mechanical Ventilator 45 02/01/21 00:45 80 22 89/55 (66) 97 02/01/21 00:30 81 22 89/54 (66) 98 02/01/21 00:15 81 22 88/52 (64) 98 02/01/21 00:00 Mechanical Ventilator 02/01/21 00:00 22 88/52 Mechanical Ventilator 45 02/01/21 00:00 45 02/01/21 00:00 86 22 87/53 (64) 98 02/01/21 00:00 95 01/31/21 23:48 86 22 92/57 (69) 98 01/31/21 23:45 87 22 83/47 (59) 98 01/31/21 23:30 93 19 110/83 (92) 98 01/31/21 23:27 77 22 45 01/31/21 23:15 79 22 90/59 (69) 98 01/31/21 23:00 98.8 76 22 90/60 (70) 98 01/31/21 23:00 22 90/59 Mechanical Ventilator 45 01/31/21 22:45 78 22 89/59 (69) 98 01/31/21 22:30 79 22 90/60 (70) 98 01/31/21 22:15 81 22 90/59 (69) 99 01/31/21 22:00 82 22 88/59 (69) 98 01/31/21 22:00 22 90/59 Mechanical Ventilator 45 01/31/21 21:45 83 22 86/54 (65) 98 01/31/21 21:30 80 22 84/57 (66) 98 01/31/21 21:21 85 22 45 01/31/21 21:15 80 22 85/54 (64) 98 01/31/21 21:00 81 22 85/57 (66) 98 01/31/21 21:00 22 85/54 Mechanical Ventilator 45 01/31/21 20:45 82 22 86/62 (70) 97 01/31/21 20:30 85 22 90/55 (67) 97 01/31/21 20:15 87 21 91/67 (75) 98 01/31/21 20:00 97 01/31/21 20:00 97.6 84 22 92/68 (76) 99 01/31/21 20:00 22 91/67 Mechanical Ventilator 45 01/31/21 20:00 Mechanical Ventilator 01/31/21 19:45 82 22 84/58 (67) 98 01/31/21 19:30 87 22 88/58 (68) 100 01/31/21 19:29 82 22 95 Mechanical Ventilator 45 84 22 45 01/31/21 19:15 96 22 101/69 (80) 98 01/31/21 19:00 92 22 111/86 (94) 98 01/31/21 19:00 22 111/68 Mechanical Ventilator 45 01/31/21 18:00 75 22 84/53 (63) 95 01/31/21 18:00 22 84/53 Mechanical Ventilator 45 01/31/21 17:45 79 22 85/52 (63) 92 01/31/21 17:00 83 22 92/64 (73) 97 01/31/21 17:00 22 94/64 Mechanical Ventilator 45 01/31/21 16:45 88 21 101/73 (82) 97 01/31/21 16:30 100 22 104/66 (79) 97 01/31/21 16:16 45 01/31/21 16:15 121 28 144/99 (114) 98 01/31/21 16:00 97.2 115 24 124/81 (95) 98 01/31/21 16:00 22 124/81 Mechanical Ventilator 45 01/31/21 16:00 100 22 124/81 (95) 99 01/31/21 16:00 Mechanical Ventilator 01/31/21 16:00 111 01/31/21 15:45 88 19 114/76 (89) 94 01/31/21 15:30 91 25 111/71 (84) 93 01/31/21 15:16 45 01/31/21 15:15 22 111/85 Mechanical Ventilator 45 01/31/21 15:15 87 11 113/79 (90) 96 01/31/21 15:12 45 01/31/21 15:10 76 22 95 Mechanical Ventilator 45 81 22 45 01/31/21 15:00 76 22 99/69 (79) 94 01/31/21 15:00 22 99/69 Mechanical Ventilator 45 01/31/21 14:00 87 22 106/70 (82) 96 01/31/21 14:00 22 106/70 Mechanical Ventilator 45 01/31/21 13:00 98 21 113/85 (94) 96 01/31/21 13:00 22 113/85 Mechanical Ventilator 45 01/31/21 12:00 24 107/71 Mechanical Ventilator 45 01/31/21 12:00 Mechanical Ventilator 01/31/21 12:00 92 01/31/21 12:00 45 01/31/21 12:00 99.0 95 22 107/71 (83) 94 01/31/21 11:16 95 22 45 I&O Intake and Output 01/31/21 02/01/21 19:00 07:00 Intake Total 1653.95 ml 1100 ml Output Total 1135 ml 1050 ml Balance 518.95 ml 50 ml Free Water 200 ml IV Total 633.95 ml 180 ml Tube Feeding 720 ml 720 ml Other 300 ml Output Urine Total 1135 ml 1050 ml # Bowel Movements 1 Dressing: saturated Cardiovascular: RSR Respiratory: decreased breath sounds Abdomen: soft, flat, non-tender, present bowel sounds, non-distended Extremities: no tenderness, no cyanosis Laboratory Tests Test 02/01/21 02:00 02/01/21 04:00 Vancomycin Level Trough 21.0 ug/mL (5.0-12.0) H White Blood Count 6.0 K/UL (4.8-10.8) Red Blood Count 3.89 M/UL (4.70-6.10) L Hemoglobin 11.2 G/DL (14.2-18.0) L Hematocrit 35.9 % (42.0-52.0) L Mean Corpuscular Volume 92 FL (80-99) Mean Corpuscular Hemoglobin 28.9 PG (27.0-31.0) Mean Corpuscular Hemoglobin Concent 31.3 G/DL (32.0-36.0) L Red Cell Distribution Width 15.9 % (11.6-14.8) H Platelet Count 233 K/UL (150-450) Mean Platelet Volume 8.3 FL (6.5-10.1) Neutrophils (%) (Auto) 60.8 % (45.0-75.0) Lymphocytes (%) (Auto) 26.4 % (20.0-45.0) Monocytes (%) (Auto) 7.7 % (1.0-10.0) Eosinophils (%) (Auto) 4.0 % (0.0-3.0) H Basophils (%) (Auto) 1.0 % (0.0-2.0) Prothrombin Time 14.5 SEC (9.30-11.50) H Prothromb Time International Ratio 1.3 (0.9-1.1) H Sodium Level 141 MMOL/L (136-145) Potassium Level 4.2 MMOL/L (3.5-5.1) Chloride Level 105 MMOL/L (98-107) Carbon Dioxide Level 27 MMOL/L (21-32) Anion Gap 9 mmol/L (5-15) Blood Urea Nitrogen 6 mg/dL (7-18) L Creatinine 0.7 MG/DL (0.55-1.30) Estimat Glomerular Filtration Rate > 60 mL/min (>60) Glucose Level 226 MG/DL (74-106) H Uric Acid 2.0 MG/DL (2.6-7.2) L Calcium Level 9.0 MG/DL (8.5-10.1) Phosphorus Level 3.4 MG/DL (2.5-4.9) Magnesium Level 1.8 MG/DL (1.8-2.4) Total Bilirubin 0.1 MG/DL (0.2-1.0) L Aspartate Amino Transf (AST/SGOT) 13 U/L (15-37) L Alanine Aminotransferase (ALT/SGPT) 20 U/L (12-78) Alkaline Phosphatase 115 U/L (46-116) C-Reactive Protein, Quantitative 10.3 mg/dL (0.00-0.90) H Pro-B-Type Natriuretic Peptide 467 pg/mL (0-125) H Total Protein 6.2 G/DL (6.4-8.2) L Albumin 2.0 G/DL (3.4-5.0) L Globulin 4.2 g/dL Albumin/Globulin Ratio 0.5 (1.0-2.7) L Plan Problems: (1) COPD (chronic obstructive pulmonary disease) (2) Essential hypertension (3) Schizophrenia (4) Obesity (5) Diabetes mellitus type 2 in obese (6) History of hydrocephalus (7) Anticoagulant long-term use (8) Bipolar 1 disorder (9) History of deep venous thrombosis or pulmonary embolus (10) Acute hypercapnic respiratory failure (11) Sepsis Assessment & Plan: 60-year-old male Covid positive respiratory insufficiency and severe decline being prone intubated on vent support labs noted septic ill- appearing has been developing wound around the face from ET tube.Receiv ed report from [facility] pt is being proned and was observed to have developed a blood blister under vent tape on L cheek and L earlobe. Skin assessed and pt was observed to have a blood blister that is 50% de-capped,50% intact. Intact Blood Blister noted to L earlobe. Skin Barrier applied to affected areas. Optifoam Thin foam placed between vent anchor and pt's skin. Optifoam thin placed to R cheek under Vent tape, on Bridge of nose and both earlobes. Given patient's critical status current care plan and findings nutritional optimization is strongly encouraged Covid nutrition plan initiated. All Covid precautions are being taken. Imaging reviewed. Will follow with care plan. Thank you [facility] participation care Tx.Plan: Maintain Optifoam Thin foam to R and L cheeks,Bridge of Nose and Both Ears . Change every 7 days and prn.( May request Optifoam Thin from [facility] dept). APM/PEPE Mattress overlay DAILY ESTIMATED NEEDS: Needs based on Critical care, pulmonary, obese 73.7kg abw 22-28 kcals/kg 1202-2376 total kcals 1.2-2 g protein/kg 88-147 g total protein 25-30 mL/kg 9194-4416 total fluid mLs NUTRITION DIAGNOSIS: Altered nutrition related lab values r/t steroidal meds, clinical status as evidenced by febrile on adm (102.5), elevated BG (270 287) on solumedrol, elevated lipid panel (Triglycerides 333, Chol 370, LDL 150). CURRENT TF:Vital @30ml/hr, now Nepro @30 ENTERAL NUTRITION RECOMMENDATIONS: NEPRO @30ml/hr while supine to provide x8 hrs feeds: 360ml, 648 kcal, 29g pro, 262ml free H2O - Feed at rate best tolerated, currently not meeting est needs d/t proning and aspiration risk w/ supine feeds limited to 8hrs/day. - W/ reduced aspiration risk rec feedings to total Volume of 900ml/day of Nepro as medically able. - Monitor tolerance, position/HOB >30 degrees, hemodynamic stability and ability to increase to meet est kcal and pro needs. - With increase pressor support, rec trophic feeds of 10ml/hr for gut integrity. - When tolerating TF at goal add Prosource BID to better meet est pro needs. ADDITIONAL RECOMMENDATIONS: 1) Now intubated, TF recs above when off proning (8hrs feeds) 2) Obtain calibrated bedscale wts 3) HgA1C/ elevated BG Need for niss while on D5 4) Lytes daily; replete as needed 5) Monitor triglycerides, TF tolerance, hemodynamic stability. (12) Respiratory failure with hypoxia Assessment & Plan: cont weaning vent wean pressors not ready for trach (13) Pneumonia due to COVID-19 virus (14) Hyperkalemia (15) DMII (diabetes mellitus, type 2) Ki Strong Feb 01, 2021 11:04
--- NOTE | 2021-02-01 13:47 | Nephrology Progress Note ---
Assessment/Plan Problem List: (1) Hyperkalemia (2) Pneumonia due to COVID-19 virus (3) Respiratory failure with hypoxia (4) Obesity (5) Schizophrenia (6) DMII (diabetes mellitus, type 2) Assessment Hyperkalemia Stable renal parameters Hyperglycemia Covid pneumonia due to COVID-19 virus Acute respiratory failure with hypoxia requiring mechanical ventilation History of COPD History of DVT, pulmonary emboli Obese Hypertension History of diabetes Psych condition, schizophrenia, bipolar disease Plan February 01: Status quo. FiO2 40%. Full code. Labs reviewed. Renal parameters stable. January 31: Status quo. FiO2 45%. Full code. Renal parameters stable. Abnormal electrolytes addressed. January 30: Status quo. Remains full code. Intubated. On ventilator. Low magnesium addressed. Continue per consultants. January 29: Status quo. Labs reviewed. Low magnesium addressed. Discussed with JOHAN Ratliff. Continue per consultants. January 28: Status quo. Labs and medication list reviewed. K-Phos supplement ordered. Continue per current treatment plan. January 27: Patient remains full code. Intubated on ventilator. FiO2 50%. Labs reviewed. Renal parameters stable. Medication list reviewed. January 26: Full code. Intubated. On ventilator. FiO2 65%. No CHEM panel drawn today. Continue per consultants. January 25: Status unchanged. Blood pressure low. Remains full code on ventilator. Continue per consultants. Medication list reviewed. INR is 3.8 today. January 24: Status quo. Intubated on ventilator and full code. Labs reviewed. Medication list reviewed. Continue per consultants. January 23: Patient on prone position. IntubatedFiO2 65%. Renal parameters stable. Continue per consultants. Date hospitalization. Possible trach?. January 22: FiO2 50%. Prone position. Labs reviewed. Stable from renal standpoint of view. Continue per consultants. January 21: Full code. Intubated on ventilator. FiO2 40%. Labs reviewed. Renal parameters stable. Continue per consultants. January 20: Status unchanged. Full code. On ventilator. Chest x-ray reviewe d. IV fluid discontinued. Potassium supplement given. 1 dose of Lasix given. Albumin bolus given. Midodrine started. Will monitor renal parameters and electrolytes. Discussed with JOHAN Mohamud. January 19: Labs reviewed. Renal parameters stable. Remains full code intubated on ventilator. FiO2 50%. Continue per consultants. January 18: Full code. Intubated. On ventilator. FiO2 down to 35%. No labs drawn today. Continue to monitor renal parameters and electrolytes. January 17: Full code. Intubated on ventilator. FiO2 remains at 60%. Labs reviewed. Renal parameters stable. January 16: Full code. Intubated. Labs reviewed. Renal parameters stable. FiO2 60%. Continue per consultants. January 15: Patient remains intubated and full code. Labs reviewed. Stable renal parameters. January 14: Patient full code. Intubated on ventilator. On prone position until 5 PM. Labs reviewed. Stable from renal standpoint of view. January 13: Labs reviewed. Renal parameters stable. Continue per consultants. Patient remain full code and intubated on ventilator. January 12: Labs reviewed. Renal parameters stable. Patient remains full code. Remains intubated on ventilator and on prone position. Continue per consultants. January 11: Labs reviewed. Renal parameters stable. Continue per consultants. January 10: Labs reviewed. Renal parameters stable. Continue per consultants. Change IV to half-normal saline Kayexalate via NG tube for high potassium Monitor electrolytes and renal parameters Per orders, per consultants Subjective ROS Limited/Unobtainable: Yes Objective Objective Last 24 Hour Vital Signs Date Time Temp Pulse Resp B/P (MAP) Pulse Ox O2 Delivery O2 Flow Rate FiO2 02/01/21 13:00 98 23 114/78 (90) 96 02/01/21 12:56 94 24 93 40 99 29 02/01/21 12:00 98.4 102 15 114/71 (85) 96 02/01/21 12:00 Mechanical Ventilator 02/01/21 11:53 40 02/01/21 11:52 105 02/01/21 11:00 105 15 122/75 (91) 96 02/01/21 11:00 15 116/72 Mechanical Ventilator 40 02/01/21 10:49 113 20 40 02/01/21 10:00 75 22 106/68 (81) 97 02/01/21 10:00 22 106/68 Mechanical Ventilator 40 02/01/21 09:00 83 20 112/73 (86) 97 02/01/21 09:00 22 116/72 Mechanical Ventilator 40 02/01/21 08:36 22 103/69 Mechanical Ventilator 40 02/01/21 08:00 22 105/63 Mechanical Ventilator 40 02/01/21 08:00 40 02/01/21 08:00 Mechanical Ventilator 02/01/21 08:00 98.6 89 21 119/81 (94) 100 02/01/21 07:54 86 22 97 40 88 22 02/01/21 07:36 83 02/01/21 07:00 22 110/68 Mechanical Ventilator 45 02/01/21 06:45 78 22 99/65 (76) 96 02/01/21 06:30 79 22 99/66 (77) 96 02/01/21 06:15 81 22 103/66 (78) 96 02/01/21 06:00 22 100/65 Mechanical Ventilator 45 02/01/21 06:00 98.7 81 22 100/65 (77) 95 02/01/21 05:45 84 20 105/73 (84) 98 02/01/21 05:30 82 22 102/65 (77) 96 02/01/21 05:15 82 22 104/65 (78) 97 02/01/21 05:14 80 22 45 02/01/21 05:00 22 104/65 Mechanical Ventilator 45 02/01/21 05:00 80 22 101/59 (73) 96 02/01/21 04:45 82 22 99/58 (72) 95 02/01/21 04:30 84 22 100/58 (72) 96 02/01/21 04:15 80 22 97/62 (74) 95 02/01/21 04:00 45 02/01/21 04:00 22 97/62 Mechanical Ventilator 45 02/01/21 04:00 98.7 84 22 95/60 (72) 95 02/01/21 04:00 Mechanical Ventilator 02/01/21 04:00 83 02/01/21 03:45 89 22 97/55 (69) 96 02/01/21 03:32 84 22 45 02/01/21 03:30 80 22 95/72 (80) 96 02/01/21 03:15 82 22 96/60 (72) 97 02/01/21 03:00 22 96/60 Mechanical Ventilator 45 02/01/21 03:00 81 22 96/61 (73) 96 02/01/21 02:45 83 22 96/59 (71) 96 02/01/21 02:30 98.7 90 22 101/55 (70) 96 02/01/21 02:15 91 22 94/70 (78) 97 02/01/21 02:00 88 22 91/55 (67) 94 02/01/21 02:00 22 94/70 Mechanical Ventilator 45 02/01/21 01:45 87 22 91/54 (66) 95 02/01/21 01:30 85 22 94/56 (69) 94 02/01/21 01:18 92 22 97 Mechanical Ventilator 45 93 22 45 02/01/21 01:15 94 22 108/64 (79) 100 02/01/21 01:00 88 22 99/66 (77) 98 02/01/21 01:00 22 108/64 Mechanical Ventilator 45 02/01/21 00:45 80 22 89/55 (66) 97 02/01/21 00:30 81 22 89/54 (66) 98 02/01/21 00:15 81 22 88/52 (64) 98 02/01/21 00:00 Mechanical Ventilator 02/01/21 00:00 22 88/52 Mechanical Ventilator 45 02/01/21 00:00 45 02/01/21 00:00 86 22 87/53 (64) 98 02/01/21 00:00 95 01/31/21 23:48 86 22 92/57 (69) 98 01/31/21 23:45 87 22 83/47 (59) 98 01/31/21 23:30 93 19 110/83 (92) 98 01/31/21 23:27 77 22 45 01/31/21 23:15 79 22 90/59 (69) 98 01/31/21 23:00 98.8 76 22 90/60 (70) 98 01/31/21 23:00 22 90/59 Mechanical Ventilator 45 01/31/21 22:45 78 22 89/59 (69) 98 01/31/21 22:30 79 22 90/60 (70) 98 01/31/21 22:15 81 22 90/59 (69) 99 01/31/21 22:00 82 22 88/59 (69) 98 01/31/21 22:00 22 90/59 Mechanical Ventilator 45 01/31/21 21:45 83 22 86/54 (65) 98 01/31/21 21:30 80 22 84/57 (66) 98 01/31/21 21:21 85 22 45 01/31/21 21:15 80 22 85/54 (64) 98 01/31/21 21:00 81 22 85/57 (66) 98 01/31/21 21:00 22 85/54 Mechanical Ventilator 45 01/31/21 20:45 82 22 86/62 (70) 97 01/31/21 20:30 85 22 90/55 (67) 97 01/31/21 20:15 87 21 91/67 (75) 98 01/31/21 20:00 97 01/31/21 20:00 97.6 84 22 92/68 (76) 99 01/31/21 20:00 22 91/67 Mechanical Ventilator 45 01/31/21 20:00 Mechanical Ventilator 01/31/21 19:45 82 22 84/58 (67) 98 01/31/21 19:30 87 22 88/58 (68) 100 01/31/21 19:29 82 22 95 Mechanical Ventilator 45 84 22 45 01/31/21 19:15 96 22 101/69 (80) 98 01/31/21 19:00 92 22 111/86 (94) 98 01/31/21 19:00 22 111/68 Mechanical Ventilator 45 01/31/21 18:00 75 22 84/53 (63) 95 01/31/21 18:00 22 84/53 Mechanical Ventilator 45 01/31/21 17:45 79 22 85/52 (63) 92 01/31/21 17:00 83 22 92/64 (73) 97 01/31/21 17:00 22 94/64 Mechanical Ventilator 45 01/31/21 16:45 88 21 101/73 (82) 97 01/31/21 16:30 100 22 104/66 (79) 97 01/31/21 16:16 45 01/31/21 16:15 121 28 144/99 (114) 98 01/31/21 16:00 97.2 115 24 124/81 (95) 98 01/31/21 16:00 22 124/81 Mechanical Ventilator 45 01/31/21 16:00 100 22 124/81 (95) 99 01/31/21 16:00 Mechanical Ventilator 01/31/21 16:00 111 01/31/21 15:45 88 19 114/76 (89) 94 01/31/21 15:30 91 25 111/71 (84) 93 01/31/21 15:16 45 01/31/21 15:15 22 111/85 Mechanical Ventilator 45 01/31/21 15:15 87 11 113/79 (90) 96 01/31/21 15:12 45 01/31/21 15:10 76 22 95 Mechanical Ventilator 45 81 22 45 01/31/21 15:00 76 22 99/69 (79) 94 01/31/21 15:00 22 99/69 Mechanical Ventilator 45 01/31/21 14:00 87 22 106/70 (82) 96 01/31/21 14:00 22 106/70 Mechanical Ventilator 45 Intake and Output 01/31/21 02/01/21 19:00 07:00 Intake Total 1653.95 ml 1100 ml Output Total 1135 ml 1050 ml Balance 518.95 ml 50 ml Free Water 200 ml IV Total 633.95 ml 180 ml Tube Feeding 720 ml 720 ml Other 300 ml Output Urine Total 1135 ml 1050 ml # Bowel Movements 1 Current Medications Medications (Trade) Dose Ordered Sig/Johnny Route PRN Reason Start Time Stop Time Status Last Admin Dose Admin Acetaminophen (Tylenol) 650 mg Q6H PRN NG Temp >100.5 01/09/21 09:15 02/08/21 09:14 01/26/21 02:05 Acetaminophen (Tylenol) 650 mg Q6H PRN NG Mild Pain (Pain Scale 1-3) 01/09/21 09:15 02/08/21 09:14 01/27/21 05:10 Albuterol Sulfate (Proventil MDI) 2 puff Q6HRT INH 01/02/21 19:00 04/02/21 18:59 02/01/21 12:56 Chlorhexidine Gluconate (Myranda-Hex 2%) 1 applic DAILY@1999 TOPIC 01/29/21 20:00 04/29/21 19:59 01/31/21 19:53 Dextrose (Dextrose 50%) 25 ml Q30M PRN IV Hypoglycemia 01/06/21 23:45 04/06/21 23:44 Dextrose (Dextrose 50%) 50 ml Q30M PRN IV Hypoglycemia 01/06/21 23:45 04/06/21 23:44 Docosanol (Abreva) 1 gm FIVE TIMES A DAY TP 01/29/21 20:00 5/31/21 19:59 02/01/21 12:26 Fentanyl Citrate 250 ml @ 15 mls/hr Q24H PRN IV AGITATION 01/30/21 22:01 02/01/21 22:00 02/01/21 08:36 Insulin Aspart (NovoLOG) EVERY 6 HOURS SUBQ 01/09/21 12:00 04/04/21 16:29 02/01/21 12:23 Ipratropium Bloomingrose (Atrovent Inh) 1 puffs Q6HRT INH 01/02/21 19:00 02/01/21 18:59 02/01/21 12:56 Lansoprazole (Prevacid) 30 mg DAILY GT 01/24/21 09:00 02/15/21 08:59 02/01/21 08:34 Midodrine (Pro-Amatine) 10 mg Q8HR ORAL 01/20/21 14:00 04/20/21 13:59 02/01/21 06:02 Nystatin (Nystatin) 5 ml QID ORAL 01/25/21 18:00 02/01/21 17:59 02/01/21 12:26 Potassium Chloride (K-Dur) 20 meq TWICE A DAY NG 01/20/21 13:00 04/20/21 12:59 02/01/21 08:35 Quetiapine Fumarate (SEROqueL) 100 mg Q12HR ORAL 01/20/21 15:00 03/06/21 14:59 02/01/21 08:34 Valproic Acid (Depakene) 500 mg Q12HR GT 01/22/21 21:00 02/21/21 20:59 02/01/21 08:34 Vancomycin HCl 250 ml @ 166.667 mls/hr Q8H IVPB 02/01/21 09:00 02/06/21 08:59 02/01/21 08:39 Vancomycin HCl (Vanco pharmacy to dose) 1 ea DAILY PRN MISC Per rx protocol 01/25/21 08:15 02/24/21 08:14 Warfarin Sodium (Coumadin) 5 mg DAILY@17 ORAL 02/01/21 17:00 02/01/21 17:01 Laboratory Tests 02/01/21 02:00: Vancomycin Level Trough 21.0H 02/01/21 04:00: White Blood Count 6.0, Red Blood Count 3.89L, Hemoglobin 11.2L, Hematocrit 35.9L , Mean Corpuscular Volume 92, Mean Corpuscular Hemoglobin 28.9, Mean Corpuscular Hemoglobin Concent 31.3L, Red Cell Distribution Width 15.9H, Platelet Count 233, Mean Platelet Volume 8.3, Neutrophils (%) (Auto) 60.8, Lymphocytes (%) (Auto) 26.4, Monocytes (%) (Auto) 7.7, Eosinophils (%) (Auto) 4.0H, Basophils (%) (Auto) 1.0, Prothrombin Time 14.5H, Prothromb Time International Ratio 1.3H, Sodium Level 141, Potassium Level 4.2, Chloride Level 105, Carbon Dioxide Level 27, Anion Gap 9, Blood Urea Nitrogen 6L, Creatinine 0.7, Estimat Glomerular Filtration Rate > 60, Glucose Level 226H, Uric Acid 2.0L, Calcium Level 9.0, Phosphorus Level 3.4, Magnesium Level 1.8, Total Bilirubin 0.1L, Aspartate Amino Transf (AST/SGOT) 13L, Alanine Aminotransferase (ALT/SGPT) 20, Alkaline Phosphatase 115, C-Reactive Protein, Quantitative 10.3H, Pro-B-Type Natriuretic Peptide 467H, Total Protein 6.2L, Albumin 2.0L, Globulin 4.2, Albumin/Globulin Ratio 0.5L Height (Feet): 5 Height (Inches): 5.00 Weight (Pounds): 233 General Appearance: no apparent distress Cardiovascular: tachycardia Respiratory/Chest: decreased breath sounds Abdomen: distended Avi Frye MD Feb 01, 2021 13:47
--- NOTE | 2021-02-01 14:04 | Internal Med Progress Note ---
Subjective Physician Name Geovanny Bradley Attending Physician Geovanny Bradley MD Current Medications Medications (Trade) Dose Ordered Sig/Johnny Route PRN Reason Start Time Stop Time Status Last Admin Dose Admin Acetaminophen (Tylenol) 650 mg Q6H PRN NG Temp >100.5 01/09/21 09:15 02/08/21 09:14 01/26/21 02:05 Acetaminophen (Tylenol) 650 mg Q6H PRN NG Mild Pain (Pain Scale 1-3) 01/09/21 09:15 02/08/21 09:14 01/27/21 05:10 Albuterol Sulfate (Proventil I) 2 puff Q6HRT INH 01/02/21 19:00 04/02/21 18:59 02/01/21 12:56 Chlorhexidine Gluconate (Myranda-Hex 2%) 1 applic DAILY@2000 TOPIC 01/29/21 20:00 04/29/21 19:59 01/31/21 19:53 Dextrose (Dextrose 50%) 25 ml Q30M PRN IV Hypoglycemia 01/06/21 23:45 04/06/21 23:44 Dextrose (Dextrose 50%) 50 ml Q30M PRN IV Hypoglycemia 01/06/21 23:45 04/06/21 23:44 Docosanol (Abreva) 1 gm FIVE TIMES A DAY TP 01/29/21 20:00 04/29/21 19:59 02/01/21 12:26 Fentanyl Citrate 250 ml @ 15 mls/hr Q24H PRN IV AGITATION 01/30/21 22:01 02/01/21 22:00 02/01/21 08:36 Insulin Aspart (NovoLOG) EVERY 6 HOURS SUBQ 01/09/21 12:00 04/04/21 16:29 02/01/21 12:23 Ipratropium [place] (Atrovent Inh) 1 puffs Q6HRT INH 01/02/21 19:00 02/01/21 18:59 02/01/21 12:56 Lansoprazole (Prevacid) 30 mg DAILY GT 01/24/21 09:00 02/15/21 08:59 02/01/21 08:34 Midodrine (Pro-Amatine) 10 mg Q8HR ORAL 01/20/21 14:00 04/20/21 13:59 02/01/21 06:02 Nystatin (Nystatin) 5 ml QID ORAL 01/25/21 18:00 02/01/21 17:59 02/01/21 12:26 Potassium Chloride (K-Dur) 20 meq TWICE A DAY NG 01/20/21 13:00 04/20/21 12:59 02/01/21 08:35 Quetiapine Fumarate (SEROqueL) 100 mg Q12HR ORAL 01/20/21 15:00 03/06/21 14:59 02/01/21 08:34 Valproic Acid (Depakene) 500 mg Q12HR GT 01/22/21 21:00 02/21/21 20:59 02/01/21 08:34 Vancomycin HCl 250 ml @ 166.667 mls/hr Q8H IVPB 02/01/21 09:00 02/06/21 08:59 02/01/21 08:39 Vancomycin HCl (Vanco pharmacy to dose) 1 ea DAILY PRN MISC Per rx protocol 01/25/21 08:15 02/24/21 08:14 Warfarin Sodium (Coumadin) 5 mg DAILY@17 ORAL 02/01/21 17:00 02/01/21 17:01 Allergies: Coded Allergies: No Known Allergies (Unverified , 01/02/21) Subjective in MICU, intubated, remained on ventilation, open eyes, unable to F/U with simple commands, INR: 1.3. Objective Last Vital Signs Date Time Temp Pulse Resp B/P (MAP) Pulse Ox O2 Delivery O2 Flow Rate FiO2 02/01/21 13:00 98 23 114/78 (90) 96 02/01/21 12:56 40 02/01/21 12:00 98.4 02/01/21 12:00 Mechanical Ventilator 01/24/21 21:00 65.0 Laboratory Tests Test 02/01/21 02:00 02/01/21 04:00 Vancomycin Level Trough 21.0 ug/mL (5.0-12.0) H White Blood Count 6.0 K/UL (4.8-10.8) Red Blood Count 3.89 M/UL (4.70-6.10) L Hemoglobin 11.2 G/DL (14.2-18.0) L Hematocrit 35.9 % (42.0-52.0) L Mean Corpuscular Volume 92 FL (80-99) Mean Corpuscular Hemoglobin 28.9 PG (27.0-31.0) Mean Corpuscular Hemoglobin Concent 31.3 G/DL (32.0-36.0) L Red Cell Distribution Width 15.9 % (11.6-14.8) H Platelet Count 233 K/UL (150-450) Mean Platelet Volume 8.3 FL (6.5-10.1) Neutrophils (%) (Auto) 60.8 % (45.0-75.0) Lymphocytes (%) (Auto) 26.4 % (20.0-45.0) Monocytes (%) (Auto) 7.7 % (1.0-10.0) Eosinophils (%) (Auto) 4.0 % (0.0-3.0) H Basophils (%) (Auto) 1.0 % (0.0-2.0) Prothrombin Time 14.5 SEC (9.30-11.50) H Prothromb Time International Ratio 1.3 (0.9-1.1) H Sodium Level 141 MMOL/L (136-145) Potassium Level 4.2 MMOL/L (3.5-5.1) Chloride Level 105 MMOL/L (98-107) Carbon Dioxide Level 27 MMOL/L (21-32) Anion Gap 9 mmol/L (5-15) Blood Urea Nitrogen 6 mg/dL (7-18) L Creatinine 0.7 MG/DL (0.55-1.30) Estimat Glomerular Filtration Rate > 60 mL/min (>60) Glucose Level 226 MG/DL (74-106) H Uric Acid 2.0 MG/DL (2.6-7.2) L Calcium Level 9.0 MG/DL (8.5-10.1) Phosphorus Level 3.4 MG/DL (2.5-4.9) Magnesium Level 1.8 MG/DL (1.8-2.4) Total Bilirubin 0.1 MG/DL (0.2-1.0) L Aspartate Amino Transf (AST/SGOT) 13 U/L (15-37) L Alanine Aminotransferase (ALT/SGPT) 20 U/L (12-78) Alkaline Phosphatase 115 U/L (46-116) C-Reactive Protein, Quantitative 10.3 mg/dL (0.00-0.90) H Pro-B-Type Natriuretic Peptide 467 pg/mL (0-125) H Total Protein 6.2 G/DL (6.4-8.2) L Albumin 2.0 G/DL (3.4-5.0) L Globulin 4.2 g/dL Albumin/Globulin Ratio 0.5 (1.0-2.7) L Intake and Output 01/31/21 02/01/21 19:00 07:00 Intake Total 1653.95 ml 1100 ml Output Total 1135 ml 1050 ml Balance 518.95 ml 50 ml Free Water 200 ml IV Total 633.95 ml 180 ml Tube Feeding 720 ml 720 ml Other 300 ml Output Urine Total 1135 ml 1050 ml # Bowel Movements 1 Objective General: intubated, remained on ventilation, responsive with open eyes. HEENT: NCAT, sclera anicteric, PERRL, ET Tube, OG Tube. Neck: Supple, no significant jugular venous distention, Lungs: mechanical breath sounds,,basal crackles, no Wheeze. Heart: Regular rate and rhythm, normal S1/S2, no murmurs Abdomen: soft, nontender, nondistended. Normoactive bowel sound, obesity. : Ferraro cath. Extremities: Left LE: No Cyanosis , clubbing or edema. Right LE AKA. Neuro: limited secondary to patient's status,moving upper extremities. Skin: warm, no rashes or lesions. Assessment/Plan Assessment/Plan (1) Pneumonia due to COVID-19 virus ICD Codes: U07.1 - COVID-19; J12.82 - Pneumonia due to coronavirus disease 2019 SNOMED: 093198626065123018 (2) Acute hypercapnic respiratory failure >> intubated 01/06 ICD Codes: J96.02 - Acute respiratory failure with hypercapnia SNOMED: 759240015 (3) Respiratory failure with hypoxia ICD Codes: J96.91 - Respiratory failure, unspecified with hypoxia SNOMED: 47733042337081126 Qualifiers: Qualified Codes: J96.01 - Acute respiratory failure with hypoxia (4) COPD (chronic obstructive pulmonary disease) ICD Codes: J44.9 - Chronic obstructive pulmonary disease, unspecified SNOMED: 91523833 (5) History of deep venous thrombosis or pulmonary embolus SNOMED: 695880525 (6) Obesity ICD Codes: E66.9 - Obesity, unspecified SNOMED: 529112008, 918265843 (7) Essential hypertension ICD Codes: I10 - Essential (primary) hypertension SNOMED: 77165762 (8) Diabetes mellitus type 2 in obese ICD Codes: E11.69 - Type 2 diabetes mellitus with other specified complication; E66.9 - Obesity, unspecified SNOMED: 10751458 (9) History of hydrocephalus ICD Codes: Z86.69 - Personal history of other diseases of the nervous system and sense organs SNOMED: 851285071 (10) Schizophrenia ICD Codes: F20.9 - Schizophrenia, unspecified SNOMED: 50943131 (11) Bipolar 1 disorder ICD Codes: F31.9 - Bipolar disorder, unspecified SNOMED: 163477539 (12) Anticoagulant long-term use ICD Codes: Z79.01 - detention (current) use of anticoagulants SNOMED: 515564801 Assessment/Plan: Optimize pulmonary hygiene/mobilize as tolerated Completed Remdesivir IV Abx: Vanco IV and Zosyn IV F/U Cx's Monitor volumes and renal function DVT Px: Coumadin Monitor blood glucose level closely. FULL Code Tolerated Tube feeding @ 60 cc/hr. Geovanny Bradley MD Feb 01, 2021 14:04
--- NOTE | 2021-02-01 14:15 | Pulmonology Progress Note ---
Subjective ROS Limited/Unobtainable: Yes Allergies: Coded Allergies: No Known Allergies (Unverified , 01/02/21) Objective Last 24 Hour Vital Signs Date Time Temp Pulse Resp B/P (MAP) Pulse Ox O2 Delivery O2 Flow Rate FiO2 02/01/21 13:00 98 23 114/78 (90) 96 02/01/21 12:56 94 24 93 40 99 29 02/01/21 12:00 98.4 102 15 114/71 (85) 96 02/01/21 12:00 Mechanical Ventilator 02/01/21 11:53 40 02/01/21 11:52 105 02/01/21 11:00 105 15 122/75 (91) 96 02/01/21 11:00 15 116/72 Mechanical Ventilator 40 02/01/21 10:49 113 20 40 02/01/21 10:00 75 22 106/68 (81) 97 02/01/21 10:00 22 106/68 Mechanical Ventilator 40 02/01/21 09:00 83 20 112/73 (86) 97 02/01/21 09:00 22 116/72 Mechanical Ventilator 40 02/01/21 08:36 22 103/69 Mechanical Ventilator 40 02/01/21 08:00 22 105/63 Mechanical Ventilator 40 02/01/21 08:00 40 02/01/21 08:00 Mechanical Ventilator 02/01/21 08:00 98.6 89 21 119/81 (94) 100 02/01/21 07:54 86 22 97 40 88 22 02/01/21 07:36 83 02/01/21 07:00 22 110/68 Mechanical Ventilator 45 02/01/21 06:45 78 22 99/65 (76) 96 02/01/21 06:30 79 22 99/66 (77) 96 02/01/21 06:15 81 22 103/66 (78) 96 02/01/21 06:00 22 100/65 Mechanical Ventilator 45 02/01/21 06:00 98.7 81 22 100/65 (77) 95 02/01/21 05:45 84 20 105/73 (84) 98 02/01/21 05:30 82 22 102/65 (77) 96 02/01/21 05:15 82 22 104/65 (78) 97 02/01/21 05:14 80 22 45 02/01/21 05:00 22 104/65 Mechanical Ventilator 45 02/01/21 05:00 80 22 101/59 (73) 96 02/01/21 04:45 82 22 99/58 (72) 95 02/01/21 04:30 84 22 100/58 (72) 96 02/01/21 04:15 80 22 97/62 (74) 95 02/01/21 04:00 45 02/01/21 04:00 22 97/62 Mechanical Ventilator 45 02/01/21 04:00 98.7 84 22 95/60 (72) 95 02/01/21 04:00 Mechanical Ventilator 02/01/21 04:00 83 02/01/21 03:45 89 22 97/55 (69) 96 02/01/21 03:32 84 22 45 02/01/21 03:30 80 22 95/72 (80) 96 02/01/21 03:15 82 22 96/60 (72) 97 02/01/21 03:00 22 96/60 Mechanical Ventilator 45 02/01/21 03:00 81 22 96/61 (73) 96 02/01/21 02:45 83 22 96/59 (71) 96 02/01/21 02:30 98.7 90 22 101/55 (70) 96 02/01/21 02:15 91 22 94/70 (78) 97 02/01/21 02:00 88 22 91/55 (67) 94 02/01/21 02:00 22 94/70 Mechanical Ventilator 45 02/01/21 01:45 87 22 91/54 (66) 95 02/01/21 01:30 85 22 94/56 (69) 94 02/01/21 01:18 92 22 97 Mechanical Ventilator 45 93 22 45 02/01/21 01:15 94 22 108/64 (79) 100 02/01/21 01:00 88 22 99/66 (77) 98 02/01/21 01:00 22 108/64 Mechanical Ventilator 45 02/01/21 00:45 80 22 89/55 (66) 97 02/01/21 00:30 81 22 89/54 (66) 98 02/01/21 00:15 81 22 88/52 (64) 98 02/01/21 00:00 Mechanical Ventilator 02/01/21 00:00 22 88/52 Mechanical Ventilator 45 02/01/21 00:00 45 02/01/21 00:00 86 22 87/53 (64) 98 02/01/21 00:00 95 01/31/21 23:48 86 22 92/57 (69) 98 01/31/21 23:45 87 22 83/47 (59) 98 01/31/21 23:30 93 19 110/83 (92) 98 01/31/21 23:27 77 22 45 01/31/21 23:15 79 22 90/59 (69) 98 01/31/21 23:00 98.8 76 22 90/60 (70) 98 01/31/21 23:00 22 90/59 Mechanical Ventilator 45 01/31/21 22:45 78 22 89/59 (69) 98 01/31/21 22:30 79 22 90/60 (70) 98 01/31/21 22:15 81 22 90/59 (69) 99 01/31/21 22:00 82 22 88/59 (69) 98 01/31/21 22:00 22 90/59 Mechanical Ventilator 45 01/31/21 21:45 83 22 86/54 (65) 98 01/31/21 21:30 80 22 84/57 (66) 98 01/31/21 21:21 85 22 45 01/31/21 21:15 80 22 85/54 (64) 98 01/31/21 21:00 81 22 85/57 (66) 98 01/31/21 21:00 22 85/54 Mechanical Ventilator 45 01/31/21 20:45 82 22 86/62 (70) 97 01/31/21 20:30 85 22 90/55 (67) 97 01/31/21 20:15 87 21 91/67 (75) 98 01/31/21 20:00 97 01/31/21 20:00 97.6 84 22 92/68 (76) 99 01/31/21 20:00 22 91/67 Mechanical Ventilator 45 01/31/21 20:00 Mechanical Ventilator 01/31/21 19:45 82 22 84/58 (67) 98 01/31/21 19:30 87 22 88/58 (68) 100 01/31/21 19:29 82 22 95 Mechanical Ventilator 45 84 22 45 01/31/21 19:15 96 22 101/69 (80) 98 01/31/21 19:00 92 22 111/86 (94) 98 01/31/21 19:00 22 111/68 Mechanical Ventilator 45 01/31/21 18:00 75 22 84/53 (63) 95 01/31/21 18:00 22 84/53 Mechanical Ventilator 45 01/31/21 17:45 79 22 85/52 (63) 92 01/31/21 17:00 83 22 92/64 (73) 97 01/31/21 17:00 22 94/64 Mechanical Ventilator 45 01/31/21 16:45 88 21 101/73 (82) 97 01/31/21 16:30 100 22 104/66 (79) 97 01/31/21 16:16 45 01/31/21 16:15 121 28 144/99 (114) 98 01/31/21 16:00 97.2 115 24 124/81 (95) 98 01/31/21 16:00 22 124/81 Mechanical Ventilator 45 01/31/21 16:00 100 22 124/81 (95) 99 01/31/21 16:00 Mechanical Ventilator 01/31/21 16:00 111 01/31/21 15:45 88 19 114/76 (89) 94 01/31/21 15:30 91 25 111/71 (84) 93 01/31/21 15:16 45 01/31/21 15:15 22 111/85 Mechanical Ventilator 45 01/31/21 15:15 87 11 113/79 (90) 96 01/31/21 15:12 45 01/31/21 15:10 76 22 95 Mechanical Ventilator 45 81 22 45 01/31/21 15:00 76 22 99/69 (79) 94 01/31/21 15:00 22 99/69 Mechanical Ventilator 45 Intake and Output 01/31/21 02/01/21 19:00 07:00 Intake Total 1653.95 ml 1100 ml Output Total 1135 ml 1050 ml Balance 518.95 ml 50 ml Free Water 200 ml IV Total 633.95 ml 180 ml Tube Feeding 720 ml 720 ml Other 300 ml Output Urine Total 1135 ml 1050 ml # Bowel Movements 1 Laboratory Tests 02/01/21 02:00: Vancomycin Level Trough 21.0H 02/01/21 04:00: White Blood Count 6.0, Red Blood Count 3.89L, Hemoglobin 11.2L, Hematocrit 35.9L , Mean Corpuscular Volume 92, Mean Corpuscular Hemoglobin 28.9, Mean Corpuscular Hemoglobin Concent 31.3L, Red Cell Distribution Width 15.9H, Platelet Count 233, Mean Platelet Volume 8.3, Neutrophils (%) (Auto) 60.8, Lymphocytes (%) (Auto) 26.4, Monocytes (%) (Auto) 7.7, Eosinophils (%) (Auto) 4.0H, Basophils (%) (Auto) 1.0, Prothrombin Time 14.5H, Prothromb Time International Ratio 1.3H, Sodium Level 141, Potassium Level 4.2, Chloride Level 105, Carbon Dioxide Level 27, Anion Gap 9, Blood Urea Nitrogen 6L, Creatinine 0.7, Estimat Glomerular Fi ltration Rate > 60, Glucose Level 226H, Uric Acid 2.0L, Calcium Level 9.0, Phosphorus Level 3.4, Magnesium Level 1.8, Total Bilirubin 0.1L, Aspartate Amino Transf (AST/SGOT) 13L, Alanine Aminotransferase (ALT/SGPT) 20, Alkaline Phosphatase 115, C-Reactive Protein, Quantitative 10.3H, Pro-B-Type Natriuretic Peptide 467H, Total Protein 6.2L, Albumin 2.0L, Globulin 4.2, Albumin/Globulin Ratio 0.5L Current Medications Medications (Trade) Dose Ordered Sig/Johnny Route PRN Reason Start Time Stop Time Status Last Admin Dose Admin Acetaminophen (Tylenol) 650 mg Q6H PRN NG Temp >100.5 01/09/21 09:15 02/08/21 09:14 01/26/21 02:05 Acetaminophen (Tylenol) 650 mg Q6H PRN NG Mild Pain (Pain Scale 1-3) 01/09/21 09:15 02/08/21 09:14 01/27/21 05:10 Albuterol Sulfate (Proventil MDI) 2 puff Q6HRT INH 01/02/21 19:00 04/02/21 18:59 02/01/21 12:56 Chlorhexidine Gluconate (Myranda-Hex 2%) 1 applic DAILY@1999 TOPIC 01/29/21 20:00 04/29/21 19:59 01/31/21 19:53 Dextrose (Dextrose 50%) 25 ml Q30M PRN IV Hypoglycemia 01/06/21 23:45 04/06/21 23:44 Dextrose (Dextrose 50%) 50 ml Q30M PRN IV Hypoglycemia 01/06/21 23:45 04/06/21 23:44 Docosanol (Abreva) 1 gm FIVE TIMES A DAY TP 01/29/21 20:00 04/29/21 19:59 02/01/21 12:26 Fentanyl Citrate 250 ml @ 15 mls/hr Q24H PRN IV AGITATION 01/30/21 22:01 02/01/21 22:00 02/01/21 08:36 Insulin Aspart (NovoLOG) EVERY 6 HOURS SUBQ 01/09/21 12:00 04/04/21 16:29 02/01/21 12:23 Ipratropium [place] (Atrovent Inh) 1 puffs Q6HRT INH 01/02/21 19:00 02/01/21 18:59 02/01/21 12:56 Lansoprazole (Prevacid) 30 mg DAILY GT 01/24/21 09:00 02/15/21 08:59 02/01/21 08:34 Midodrine (Pro-Amatine) 10 mg Q8HR ORAL 01/20/21 14:00 04/20/21 13:59 02/01/21 06:02 Nystatin (Nystatin) 5 ml QID ORAL 01/25/21 18:00 02/01/21 17:59 02/01/21 12:26 Potassium Chloride (K-Dur) 20 meq TWICE A DAY NG 01/20/21 13:00 04/20/21 12:59 02/01/21 08:35 Quetiapine Fumarate (SEROqueL) 100 mg Q12HR ORAL 01/20/21 15:00 03/06/21 14:59 02/01/21 08:34 Valproic Acid (Depakene) 500 mg Q12HR GT 01/22/21 21:00 02/21/21 20:59 02/01/21 08:34 Vancomycin HCl 250 ml @ 166.667 mls/hr Q8H IVPB 02/01/21 09:00 02/06/21 08:59 02/01/21 08:39 Vancomycin HCl (Vanco pharmacy to dose) 1 ea DAILY PRN MISC Per rx protocol 01/25/21 08:15 02/24/21 08:14 Warfarin Sodium (Coumadin) 5 mg DAILY@17 ORAL 02/01/21 17:00 02/01/21 17:01 Assessment/Plan Assessment/Plan Pulmonary CCM Progress Note Seen on 01/31/2021 HPI Patient is a 60 man with prior h/o COPD, CPS/bipolar DO, prior DVT/PE on AC, NH R, DM2, HTN and hydrocephalus,admitted with SOB and fevers after a recent diagnosis of Covid19. 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, DM2, HTN and hydrocephalus Physical Exam Deferred Covid19 Vital Signs noted Laboratory Tests noted Imaging noted Height (Feet): 5 Height (Inches): 5.00 Weight (Pounds): 233 Medications Medications noted Assessment/Plan Problem List: (1) Pneumonia due to COVID-19 virus ICD Codes: U07.1 - COVID-19; J12.82 - Pneumonia due to coronavirus disease 2018 SNOMED: 508740684616161207 (2) Acute hypercapnic respiratory failure ICD Codes: J96.02 - Acute respiratory failure with hypercapnia SNOMED: 038311076 (3) Respiratory failure with hypoxia ICD Codes: J96.91 - Respiratory failure, unspecified with hypoxia SNOMED: 88851667894191621 Qualifiers: Qualified Codes: J96.01 - Acute respiratory failure with hypoxia (4) COPD (chronic obstructive pulmonary disease) ICD Codes: J44.9 - Chronic obstructive pulmonary disease, unspecified SNOMED: 22506135 (5) History of deep venous thrombosis or pulmonary embolus SNOMED: 674163967 (6) Obesity ICD Codes: E66.9 - Obesity, unspecified SNOMED: 826566273, 070281018 (7) Essential hypertension ICD Codes: I10 - Essential (primary) hypertension SNOMED: 53976845 (8) Diabetes mellitus type 2 in obese ICD Codes: E11.69 - Type 2 diabetes mellitus with other specified complication; E66.9 - Obesity, unspecified SNOMED: 99103515 (9) History of hydrocephalus ICD Codes: Z86.69 - Personal history of other diseases of the nervous system and sense organs SNOMED: 377931120 (10) Schizophrenia ICD Codes: F20.9 - Schizophrenia, unspecified SNOMED: 39088758 (11) Bipolar 1 disorder ICD Codes: F31.9 - Bipolar disorder, unspecified SNOMED: 010412872 (12) Anticoagulant long-term use ICD Codes: Z79.01 - [facility] (current) use of anticoagulants SNOMED: 828928227 Assessment/Plan: ACVC - adjust PRN Adjust FiO2 to keep SaO2 > 92% Wean as tolerated Pressors PRN Sedation PRN HFA's ID recs REM completed per ID AB perID Weaned off SM Abx per ID F/U Cx's Monitor volumes and renal function,diuresis per Renal DVT Px: Coumadin TF when not proned FC Will need tracheostomy - did not tolerate weaning Seen on 01/31/2021 Anuel Luis MD Feb 01, 2021 14:15
[2021-02-01] MEDS ORDERED: Warfarin Sodium 5mg ORAL SCH (17:00)
[2021-02-01] MEDS: Dyna-Hex 2% Top Sol 2oz TOPIC SCH (20:00)
[2021-02-02] VITALS (47 sets, daily range): BP systolic 82–171; BP diastolic 49–100
[2021-02-02] MEDS: NovoLOG Insulin Flexpen SUBQ SCH ×4 (00:26→18:32)
[2021-02-02] MEDS: Albuterol 90mcg Inhaler 8gm INH SCH ×4 (00:56→19:00)
[2021-02-02] MEDS: Vancomycin 1.25gm/250ml Premix IVPB SCH ×3 (01:00→17:39)
[2021-02-02] MEDS: fentaNYL 2500mcg/NS 250ml 250 ML IV SCH ×2 (01:59→18:03)
[2021-02-02] MEDS: Midodrine 10mg tab ORAL SCH ×3 (06:25→21:51)
[2021-02-02] MEDS: Abreva 10% cream 2gm TP SCH ×5 (06:26→19:35)
[2021-02-02 06:32] LABS: BASOPHILS % (AUTO) 1.3 % (0.0-2.0); EOSINOPHILS % (AUTO) 3.6 % (0.0-3.0); HEMATOCRIT 33.9 % (42.0-52.0); HEMOGLOBIN 10.5 G/DL (14.2-18.0); LYMPHOCYTES % (AUTO) 29.4 % (20.0-45.0); MEAN CORPUSCULAR VOLUME 92 FL (80-99); MONOCYTES % (AUTO) 9.4 % (1.0-10.0); NEUTROPHILS % (AUTO) 56.4 % (45.0-75.0); PLATELET COUNT 273 K/UL (150-450); RED BLOOD COUNT 3.68 M/UL (4.70-6.10); RED CELL DISTRIBUTION WIDTH 16.2 % (11.6-14.8); WHITE BLOOD COUNT 7.4 K/UL (4.8-10.8)
[2021-02-02 06:40] LABS: INR 1.2 (0.9-1.1)
--- NOTE | 2021-02-02 07:04 | Pulmonology Progress Note ---
Subjective ROS Limited/Unobtainable: Yes Allergies: Coded Allergies: No Known Allergies (Unverified , 01/02/21) Objective Last 24 Hour Vital Signs Date Time Temp Pulse Resp B/P (MAP) Pulse Ox O2 Delivery O2 Flow Rate FiO2 02/02/21 07:00 88 13 103/50 (67) 99 02/02/21 06:30 75 22 99/63 (75) 97 02/02/21 06:00 72 22 106/74 (85) 95 02/02/21 05:30 85 21 125/82 (96) 97 02/02/21 05:08 72 22 40 02/02/21 05:00 74 22 132/91 (105) 96 02/02/21 04:30 74 22 106/71 (83) 96 02/02/21 04:00 Mechanical Ventilator 02/02/21 04:00 98.7 74 22 103/75 (84) 97 02/02/21 04:00 22 106/71 Mechanical Ventilator 45 02/02/21 04:00 80 02/02/21 04:00 45 02/02/21 03:30 74 22 95/63 (74) 95 02/02/21 03:19 79 22 40 02/02/21 03:00 81 19 101/58 (72) 93 02/02/21 03:00 22 107/71 Mechanical Ventilator 45 02/02/21 02:30 85 22 100/60 (73) 91 02/02/21 02:00 83 22 104/65 (78) 96 02/02/21 01:59 22 100/68 Mechanical Ventilator 40 02/02/21 01:30 86 19 102/70 (81) 95 02/02/21 01:00 94 20 113/74 (87) 95 02/02/21 01:00 22 102/70 Mechanical Ventilator 40 02/02/21 00:57 92 22 96 40 92 22 02/02/21 00:30 80 22 109/74 (86) 94 02/02/21 00:00 Mechanical Ventilator 02/02/21 00:00 99.1 80 22 123/81 (95) 95 02/02/21 00:00 40 02/02/21 00:00 22 100/63 Mechanical Ventilator 40 02/02/21 00:00 86 02/01/21 23:30 84 22 116/76 (89) 95 02/01/21 23:10 81 22 40 02/01/21 23:00 81 22 122/79 (93) 96 02/01/21 23:00 22 106/72 Mechanical Ventilator 40 02/01/21 22:30 84 22 111/79 (90) 92 02/01/21 22:00 24 111/67 Mechanical Ventilator 40 02/01/21 22:00 85 22 110/72 (85) 91 02/01/21 21:30 92 22 94/59 (71) 02/01/21 21:04 96 21 40 02/01/21 21:00 97 99/60 (73) 02/01/21 21:00 24 99/65 Mechanical Ventilator 40 02/01/21 20:30 97 17 99/71 (80) 96 02/01/21 20:00 99.3 101 22 100/64 (76) 97 02/01/21 20:00 40 02/01/21 20:00 23 110/63 Mechanical Ventilator 40 02/01/21 20:00 96 02/01/21 20:00 Mechanical Ventilator 02/01/21 19:30 113 22 105/67 (80) 95 02/01/21 19:17 95 22 100 40 95 22 02/01/21 19:00 106 18 114/75 (88) 100 02/01/21 19:00 24 103/60 Mechanical Ventilator 40 02/01/21 18:30 91 22 104/53 (70) 99 02/01/21 18:00 22 98/54 Mechanical Ventilator 40 02/01/21 18:00 88 22 98/54 (69) 99 02/01/21 18:00 88 20 99/54 (69) 99 02/01/21 17:19 100 22 40 02/01/21 17:01 95 20 93/59 (70) 95 02/01/21 17:00 20 93/59 Mechanical Ventilator 40 02/01/21 16:00 99.3 106 18 94/55 (68) 99 02/01/21 16:00 40 02/01/21 16:00 18 94/55 Mechanical Ventilator 40 02/01/21 16:00 103 02/01/21 16:00 Mechanical Ventilator 02/01/21 15:12 115 22 116/70 (85) 94 02/01/21 15:00 22 116/70 Mechanical Ventilator 40 3/5/21 14:35 128 22 40 02/01/21 14:00 126 23 120/74 (89) 96 02/01/21 14:00 23 120/74 Mechanical Ventilator 40 02/01/21 13:00 98 23 114/78 (90) 96 02/01/21 13:00 23 120/74 Mechanical Ventilator 40 02/01/21 12:56 94 24 93 40 99 29 02/01/21 12:00 98.4 102 15 114/71 (85) 96 02/01/21 12:00 15 114/71 Mechanical Ventilator 40 02/01/21 12:00 Mechanical Ventilator 02/01/21 11:53 40 02/01/21 11:52 105 02/01/21 11:00 105 15 122/75 (91) 96 02/01/21 11:00 15 116/72 Mechanical Ventilator 40 02/01/21 10:49 98 02/01/21 10:49 113 20 40 02/01/21 10:00 75 22 106/68 (81) 97 02/01/21 10:00 22 106/68 Mechanical Ventilator 40 02/01/21 09:00 83 20 112/73 (86) 97 02/01/21 09:00 22 116/72 Mechanical Ventilator 40 02/01/21 08:36 22 103/69 Mechanical Ventilator 40 02/01/21 08:00 22 105/63 Mechanical Ventilator 40 02/01/21 08:00 40 02/01/21 08:00 Mechanical Ventilator 02/01/21 08:00 98.6 89 21 119/81 (94) 100 02/01/21 07:54 86 22 97 40 88 22 02/01/21 07:36 83 Intake and Output 02/01/21 02/02/21 19:00 07:00 Intake Total 1490 ml 1090 ml Output Total 1525 ml 1075 ml Balance -35 ml 15 ml Free Water 100 ml 60 ml IV Total 430 ml 370 ml Tube Feeding 720 ml 660 ml Other 240 ml Output Urine Total 1525 ml 1075 ml # Bowel Movements 1 Microbiology Date/Time Source Procedure Growth Status 01/31/21 16:05 Blood Blood Culture - Preliminary NO GROWTH AFTER 24 HOURS Resulted 01/31/21 15:50 Blood Blood Culture - Preliminary NO GROWTH AFTER 24 HOURS Resulted Laboratory Tests 02/02/21 05:10: White Blood Count 7.4, Red Blood Count 3.68L, Hemoglobin 10.5L, Hematocrit 33.9L , Mean Corpuscular Volume 92, Mean Corpuscular Hemoglobin 28.6, Mean Corpuscular Hemoglobin Concent 31.0L, Red Cell Distribution Width 16.2H, Platelet Count 273, Mean Platelet Volume 7.6, Neutrophils (%) (Auto) 56.4, Lymphocytes (%) (Auto) 29.4, Monocytes (%) (Auto) 9.4, Eosinophils (%) (Auto) 3.6H, Basophils (%) (Auto) 1.3, Prothrombin Time 12.7H, Prothromb Time International Ratio 1.2H, Sodium Level [Pending], Potassium Level [Pending], Chloride Level [Pending], Carbon Dioxide Level [Pending], Blood Urea Nitrogen [Pending], Creatinine [Pending], Estimat Glomerular Filtration Rate [Pending], Glucose Level [Pending], Calcium Level [Pending], Total Bilirubin [Pending], Aspartate Amino Transf (AST/SGOT) [Pending], Alanine Aminotransferase (ALT/SGPT) [Pending], Alkaline Phosphatase [Pending], Total Protein [Pending], Albumin [Pending], Globulin [Pending] Current Medications Medications (Trade) Dose Ordered Sig/Johnny Route PRN Reason Start Time Stop Time Status Last Admin Dose Admin Acetaminophen (Tylenol) 650 mg Q6H PRN NG Temp >100.5 01/09/21 09:15 02/08/21 09:14 01/26/21 02:05 Acetaminophen (Tylenol) 650 mg Q6H PRN NG Mild Pain (Pain Scale 1-3) 01/09/21 09:15 02/08/21 09:14 01/27/21 05:10 Albuterol Sulfate (Proventil MDI) 2 puff Q6HRT INH 01/02/21 19:00 04/02/21 18:59 02/02/21 00:56 Chlorhexidine Gluconate (Myranda-Hex 2%) 1 applic DAILY@2000 TOPIC 01/29/21 20:00 04/29/21 19:59 02/01/21 20:00 Dextrose (Dextrose 50%) 25 ml Q30M PRN IV Hypoglycemia 01/06/21 23:45 04/06/21 23:44 Dextrose (Dextrose 50%) 50 ml Q30M PRN IV Hypoglycemia 01/06/21 23:45 04/06/21 23:44 Docosanol (Abreva) 1 gm FIVE TIMES A DAY TP 01/29/21 20:00 04/29/21 19:59 02/02/21 06:26 Fentanyl Citrate 250 ml @ 1 mls/hr Q24H IV 02/02/21 01:45 02/04/21 01:44 02/02/21 01:59 Insulin Aspart (NovoLOG) EVERY 6 HOURS SUBQ 01/09/21 12:00 04/04/21 16:29 02/02/21 06:26 Lansoprazole (Prevacid) 30 mg DAILY GT 01/24/21 09:00 02/15/21 08:59 02/01/21 08:34 Midodrine (Pro-Amatine) 10 mg Q8HR ORAL 01/20/21 14:00 04/20/21 13:59 02/02/21 06:25 Potassium Chloride (K-Dur) 20 meq TWICE A DAY NG 01/20/21 13:00 04/20/21 12:59 02/01/21 17:35 Quetiapine Fumarate (SEROqueL) 100 mg Q12HR ORAL 01/20/21 15:00 03/06/21 14:59 02/01/21 21:00 Valproic Acid (Depakene) 500 mg Q12HR GT 01/22/21 21:00 02/21/21 20:59 02/01/21 21:00 Vancomycin HCl 250 ml @ 166.667 mls/hr Q8H IVPB 02/01/21 09:00 02/06/21 08:59 02/02/21 01:00 Vancomycin HCl ([facility] pharmacy to dose) 1 ea DAILY PRN MISC Per rx protocol 01/25/21 08:15 02/24/21 08:14 Assessment/Plan Assessment/Plan Pulmonary CCM Progress Note Seen on 02/01/2021 HPI Patient is a 60 man with prior h/o COPD, CPS/bipolar DO, 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, DM2, HTN and hydrocephalus Physical Exam Deferred Covid19 Vital Signs noted Laboratory Tests noted Imaging noted Height (Feet): 5 Height (Inches): 5.00 Weight (Pounds): 233 Medications Medications noted Assessment/Plan Problem List: (1) Pneumonia due to COVID-19 virus ICD Codes: U07.1 - COVID-19; J12.82 - Pneumonia due to coronavirus disease 2018 SNOMED: 828485753365708655 (2) Acute hypercapnic respiratory failure ICD Codes: J96.02 - Acute respiratory failure with hypercapnia SNOMED: 813961558 (3) Respiratory failure with hypoxia ICD Codes: J96.91 - Respiratory failure, unspecified with hypoxia SNOMED: 04763167380538840 Qualifiers: Qualified Codes: J96.01 - Acute respiratory failure with hypoxia (4) COPD (chronic obstructive pulmonary disease) ICD Codes: J44.9 - Chronic obstructive pulmonary disease, unspecified SNOMED: 68129002 (5) History of deep venous thrombosis or pulmonary embolus SNOMED: 078147010 (6) Obesity ICD Codes: E66.9 - Obesity, unspecified SNOMED: 217171246, 682417157 (7) Essential hypertension ICD Codes: I10 - Essential (primary) hypertension SNOMED: 11689911 (8) Diabetes mellitus type 2 in obese ICD Codes: E11.69 - Type 2 diabetes mellitus with other specified complication; E66.9 - Obesity, unspecified SNOMED: 97671235 (9) History of hydrocephalus ICD Codes: Z86.69 - Personal history of other diseases of the nervous system and sense organs SNOMED: 554783943 (10) Schizophrenia ICD Codes: F20.9 - Schizophrenia, unspecified SNOMED: 99378535 (11) Bipolar 1 disorder ICD Codes: F31.9 - Bipolar disorder, unspecified SNOMED: 221216138 (12) Anticoagulant long-term use ICD Codes: Z79.01 - equipment [employer] (current) use of anticoagulants SNOMED: 768805393 Assessment/Plan: ACVC - adjust PRN Adjust FiO2 to keep SaO2 > 92% Wean as tolerated Pressors PRN Sedation PRN HFA's ID recs REM completed per ID AB perID Weaned off SM Abx per ID F/U Cx's Monitor volumes and renal function,diuresis per Renal DVT Px: Coumadin TF when not proned FC Will need tracheostomy - did not tolerate weaning Seen on 02/01/2021 Anuel Luis MD Feb 02, 2021 07:04
[2021-02-02 07:07] LABS: ALANINE AMINOTRANSFERASE 18 U/L (12-78); ALBUMIN 2.1 G/DL (3.4-5.0); ALBUMIN/GLOBULIN RATIO 0.5 (1.0-2.7); ALKALINE PHOSPHATASE 106 U/L (46-116); ANION GAP 8 mmol/L (5-15); ASPARTATE AMINO TRANSFERASE 14 U/L (15-37); BILIRUBIN,TOTAL 0.2 MG/DL (0.2-1.0); BLOOD UREA NITROGEN 7 mg/dL (7-18); CALCIUM 9.1 MG/DL (8.5-10.1); CARBON DIOXIDE 29 MMOL/L (21-32); CHLORIDE 105 MMOL/L (98-107); CREATININE 0.6 MG/DL (0.55-1.30); POTASSIUM 4.2 MMOL/L (3.5-5.1); SODIUM 142 MMOL/L (136-145)
[2021-02-02] MEDS: Valproic Acid 250mg/5ml Liquid GT SCH ×2 (08:40→20:31)
--- NOTE | 2021-02-02 10:06 | Surgery Progress Note ---
Surgery Progress Note Subjective Additional Comments vent weaned but unable to extubate HD stable off pressors improving plan trach soon Objective Last 24 Hour Vital Signs Date Time Temp Pulse Resp B/P (MAP) Pulse Ox O2 Delivery O2 Flow Rate FiO2 02/02/21 08:48 98 02/02/21 08:45 74 22 40 40 02/02/21 08:00 97.5 82 22 100/72 (81) 95 02/02/21 08:00 76 02/02/21 07:08 93 22 98 40 88 22 40 02/02/21 07:00 88 13 103/50 (67) 99 02/02/21 07:00 96 15 40 40 02/02/21 07:00 22 145/94 Mechanical Ventilator 45 02/02/21 06:30 75 22 99/63 (75) 97 02/02/21 06:00 22 100/56 Mechanical Ventilator 45 02/02/21 06:00 72 22 106/74 (85) 95 02/02/21 05:30 85 21 125/82 (96) 97 02/02/21 05:08 72 22 40 02/02/21 05:00 22 102/56 Mechanical Ventilator 45 02/02/21 05:00 74 22 132/91 (105) 96 02/02/21 04:30 74 22 106/71 (83) 96 02/02/21 04:00 Mechanical Ventilator 02/02/21 04:00 98.7 74 22 103/75 (84) 97 02/02/21 04:00 22 106/71 Mechanical Ventilator 45 02/02/21 04:00 80 02/02/21 04:00 45 02/02/21 03:30 74 22 95/63 (74) 95 02/02/21 03:19 79 22 40 02/02/21 03:00 81 19 101/58 (72) 93 02/02/21 03:00 22 107/71 Mechanical Ventilator 45 02/02/21 02:30 85 22 100/60 (73) 91 02/02/21 02:00 83 22 104/65 (78) 96 02/02/21 01:59 22 100/68 Mechanical Ventilator 40 02/02/21 01:30 86 19 102/70 (81) 95 02/02/21 01:00 94 20 113/74 (87) 95 02/02/21 01:00 22 102/70 Mechanical Ventilator 40 02/02/21 00:57 92 22 96 40 92 22 02/02/21 00:30 80 22 109/74 (86) 94 02/02/21 00:00 Mechanical Ventilator 02/02/21 00:00 99.1 80 22 123/81 (95) 95 02/02/21 00:00 40 02/02/21 00:00 22 100/63 Mechanical Ventilator 40 02/02/21 00:00 86 02/01/21 23:30 84 22 116/76 (89) 95 02/01/21 23:10 81 22 40 02/01/21 23:00 81 22 122/79 (93) 96 02/01/21 23:00 22 106/72 Mechanical Ventilator 40 02/01/21 22:30 84 22 111/79 (90) 92 02/01/21 22:00 24 111/67 Mechanical Ventilator 40 02/01/21 22:00 85 22 110/72 (85) 91 02/01/21 21:30 92 22 94/59 (71) 02/01/21 21:04 96 21 40 02/01/21 21:00 97 99/60 (73) 02/01/21 21:00 24 99/65 Mechanical Ventilator 40 02/01/21 20:30 97 17 99/71 (80) 96 02/01/21 20:00 99.3 101 22 100/64 (76) 97 02/01/21 20:00 40 02/01/21 20:00 23 110/63 Mechanical Ventilator 40 02/01/21 20:00 96 02/01/21 20:00 Mechanical Ventilator 02/01/21 19:30 113 22 105/67 (80) 95 02/01/21 19:17 95 22 100 40 95 22 02/01/21 19:00 106 18 114/75 (88) 100 02/01/21 19:00 24 103/60 Mechanical Ventilator 40 02/01/21 18:30 91 22 104/53 (70) 99 02/01/21 18:00 22 98/54 Mechanical Ventilator 40 02/01/21 18:00 88 22 98/54 (69) 99 02/01/21 18:00 88 20 99/54 (69) 99 02/01/21 17:19 100 22 40 02/01/21 17:01 95 20 93/59 (70) 95 02/01/21 17:00 20 93/59 Mechanical Ventilator 40 02/01/21 16:00 99.3 106 18 94/55 (68) 99 02/01/21 16:00 40 02/01/21 16:00 18 94/55 Mechanical Ventilator 40 02/01/21 16:00 103 02/01/21 16:00 Mechanical Ventilator 02/01/21 15:12 115 22 116/70 (85) 94 02/01/21 15:00 22 116/70 Mechanical Ventilator 40 02/01/21 14:35 128 22 40 02/01/21 14:00 126 23 120/74 (89) 96 02/01/21 14:00 23 120/74 Mechanical Ventilator 40 02/01/21 13:00 98 23 114/78 (90) 96 02/01/21 13:00 23 120/74 Mechanical Ventilator 40 02/01/21 12:56 94 24 93 40 99 29 02/01/21 12:00 98.4 102 15 114/71 (85) 96 02/01/21 12:00 15 114/71 Mechanical Ventilator 40 02/01/21 12:00 Mechanical Ventilator 02/01/21 11:53 40 02/01/21 11:52 105 02/01/21 11:00 105 15 122/75 (91) 96 02/01/21 11:00 15 116/72 Mechanical Ventilator 40 02/01/21 10:49 98 02/01/21 10:49 113 20 40 I&O Intake and Output 02/01/21 02/02/21 19:00 07:00 Intake Total 1490 ml 1135 ml Output Total 1525 ml 1075 ml Balance -35 ml 60 ml Free Water 100 ml 60 ml IV Total 430 ml 415 ml Tube Feeding 720 ml 660 ml Other 240 ml Output Urine Total 1525 ml 1075 ml # Bowel Movements 1 Dressing: saturated Cardiovascular: RSR Respiratory: decreased breath sounds Abdomen: soft, flat, non-tender, present bowel sounds, non-distended Extremities: no edema, no tenderness, no cyanosis Laboratory Tests Test 02/02/21 05:10 02/02/21 09:00 White Blood Count 7.4 K/UL (4.8-10.8) Red Blood Count 3.68 M/UL (4.70-6.10) L Hemoglobin 10.5 G/DL (14.2-18.0) L Hematocrit 33.9 % (42.0-52.0) L Mean Corpuscular Volume 92 FL (80-99) Mean Corpuscular Hemoglobin 28.6 PG (27.0-31.0) Mean Corpuscular Hemoglobin Concent 31.0 G/DL (32.0-36.0) L Red Cell Distribution Width 16.2 % (11.6-14.8) H Platelet Count 273 K/UL (150-450) Mean Platelet Volume 7.6 FL (6.5-10.1) Neutrophils (%) (Auto) 56.4 % (45.0-75.0) Lymphocytes (%) (Auto) 29.4 % (20.0-45.0) Monocytes (%) (Auto) 9.4 % (1.0-10.0) Eosinophils (%) (Auto) 3.6 % (0.0-3.0) H Basophils (%) (Auto) 1.3 % (0.0-2.0) Prothrombin Time 12.7 SEC (9.30-11.50) H Prothromb Time International Ratio 1.2 (0.9-1.1) H Sodium Level 142 MMOL/L (136-145) Potassium Level 4.2 MMOL/L (3.5-5.1) Chloride Level 105 MMOL/L (98-107) Carbon Dioxide Level 29 MMOL/L (21-32) Anion Gap 8 mmol/L (5-15) Blood Urea Nitrogen 7 mg/dL (7-18) Creatinine 0.6 MG/DL (0.55-1.30) Estimat Glomerular Filtration Rate > 60 mL/min (>60) Glucose Level 217 MG/DL (74-106) H Calcium Level 9.1 MG/DL (8.5-10.1) Total Bilirubin 0.2 MG/DL (0.2-1.0) Aspartate Amino Transf (AST/SGOT) 14 U/L (15-37) L Alanine Aminotransferase (ALT/SGPT) 18 U/L (12-78) Alkaline Phosphatase 106 U/L (46-116) Total Protein 6.3 G/DL (6.4-8.2) L Albumin 2.1 G/DL (3.4-5.0) L Globulin 4.2 g/dL Albumin/Globulin Ratio 0.5 (1.0-2.7) L Vancomycin Level Trough Pending Plan Problems: (1) COPD (chronic obstructive pulmonary disease) (2) Essential hypertension (3) Schizophrenia (4) Obesity (5) Diabetes mellitus type 2 in obese (6) History of hydrocephalus (7) Anticoagulant long-term use (8) Bipolar 1 disorder (9) History of deep venous thrombosis or pulmonary embolus (10) Acute hypercapnic respiratory failure (11) Sepsis Assessment & Plan: 60-year-old male Covid positive respiratory insufficiency and severe decline being prone intubated on vent support labs noted septic ill- appearing has been developing wound around the face from ET tube.Receiv ed report from RT pt is being proned and was observed to have developed a blood blister under vent tape on L cheek and L earlobe. Skin assessed and pt was observed to have a blood blister that is 50% de-capped,50% intact. Intact Blood Blister noted to L earlobe. Skin Barrier applied to affected areas. Optifoam Thin foam placed between vent anchor and pt's skin. Optifoam thin placed to R cheek under Vent tape, on Bridge of nose and both earlobes. Given patient's critical status current care plan and findings nutritional optimization is strongly encouraged Covid nutrition plan initiated. All Covid precautions are being taken. Imaging reviewed. Will follow with care plan. Thank you Mike pending sale to [facility] [place].Plan: Maintain Optifoam Thin foam to R and L cheeks,Bridge of Nose and Both Ears . Change every 7 days and prn.( May request Optifoam Thin from RT dept). APM/PEPE Mattress overlay DAILY ESTIMATED NEEDS: Needs based on Critical care, pulmonary, obese 73.7kg abw 22-28 kcals/kg 2167-8770 total kcals 1.2-2 g protein/kg 88-147 g total protein 25-30 mL/kg 6512-5520 total fluid mLs NUTRITION DIAGNOSIS: Altered nutrition related lab values r/t steroidal meds, clinical status as evidenced by febrile on adm (102.5), elevated BG (270 287) on solumedrol, elevated lipid panel (Triglycerides 333, Chol 370, LDL 150). CURRENT TF:Vital @30ml/hr, now Nepro @30 ENTERAL NUTRITION RECOMMENDATIONS: NEPRO @30ml/hr while supine to provide x8 hrs feeds: 360ml, 648 kcal, 29g pro, 262ml free H2O - Feed at rate best tolerated, currently not meeting est needs d/t proning and aspiration risk w/ supine feeds limited to 8hrs/day. - W/ reduced aspiration risk rec feedings to total Volume of 900ml/day of Nepro as medically able. - Monitor tolerance, position/HOB >30 degrees, hemodynamic stability and ability to increase to meet est kcal and pro needs. - With increase pressor support, rec trophic feeds of 10ml/hr for gut integrity. - When tolerating TF at goal add Prosource BID to better meet est pro needs. ADDITIONAL RECOMMENDATIONS: 1) Now intubated, TF recs above when off proning (8hrs feeds) 2) Obtain calibrated bedscale wts 3) HgA1C/ elevated BG Need for niss while on D5 4) Lytes daily; replete as needed 5) Monitor triglycerides, TF tolerance, hemodynamic stability. (12) Respiratory failure with hypoxia Assessment & Plan: cont weaning vent wean pressors not ready for trach off pressors improving HD stable plan trach soon as unable to extubate (13) Pneumonia due to COVID-19 virus (14) Hyperkalemia (15) DMII (diabetes mellitus, type 2) Ki Strong Feb 02, 2021 10:06
[2021-02-02] MEDS ORDERED: NS 275ml ONE (10:13)
[2021-02-02] MEDS ORDERED: Tubing IV Secondary IV ONE (10:13)
--- NOTE | 2021-02-02 10:55 | Infectious Diseases Prog Note ---
Assessment/Plan 60yo M with: Septic SHock Receurrent Gram postiive bacteremia r/o gentry infection -01/25 Bcx 2/ sets GPC clustesr Staph epi bacteremia ? infected fem line , Sp removal 02/01 01/10 BCx / +Staph epi 01/13 BCx Neg 01/25 BCx CoNS 2/2 01/28 BCx - CoNS 01/0101/31/21 BCx - Pend COVID pna, severe Acute hypoxia 01/01 COVID pna >> intubated 01/06- 50% FIo2 Febrile to 103; imporving Normal WBC Elevated AST 51 01/01 Tested positive for COVID at [facility] 01/02 COVID PCR positive 01/02 BCx NTD CXR: Multifocal pna MRSA nares neg 01/06 Intubated in ICU CXR: 1. Appropriately positioned endotracheal and enteric tubes. 2. Stable bilateral airspace disease. 01/07 Resp cx +Yasmine albicans (colonizer) 01/11 CXR: Interval improved bilateral lung aeration. Bibasilar i nfiltrates/atelectasis. Cr 1.1 01/30/ PICC placement HIV screen neg PMH: DM2 COPD HTN [facility] resident PICC placed 01/30/21 Plan: Cont Vancomycin # 11 Repeat Blood Cx Monitor WBCs Monitor temps 02/01/21 SP Zosyn #7 01/22/21 steroids #19, on methylpred 20 IV q12 - defer course to Pulm/Primary, now tapering 01/19/21 SP Zosyn #10 01/14 SP vanco IV #1 01/09 SP CTX #7 01/07 SP azithro #5, RDV #5 This institution does not have access to convalescent plasma and only recommended to give in setting of clinical trial Monitor temp curve, hemodynamics Monitor resp status Rpt Blood Cx 2D echo D/w RN Thank you for this consult. [facility] will continue to follow. Subjective Allergies: Coded Allergies: No Known Allergies (Unverified , 01/02/21) afebrile in ICU Objective Last 24 Hour Vital Signs Date Time Temp Pulse Resp B/P (MAP) Pulse Ox O2 Delivery O2 Flow Rate FiO2 02/02/21 10:00 102 20 143/94 (110) 98 02/02/21 09:00 72 22 102/68 (79) 96 02/02/21 08:48 98 02/02/21 08:45 74 22 40 40 02/02/21 08:00 45 02/02/21 08:00 97.5 82 22 100/72 (81) 95 02/02/21 08:00 76 02/02/21 08:00 Mechanical Ventilator 02/02/21 07:08 93 22 98 40 88 22 40 02/02/21 07:00 88 13 103/50 (67) 99 02/02/21 07:00 96 15 40 40 02/02/21 07:00 22 145/94 Mechanical Ventilator 45 02/02/21 06:30 75 22 99/63 (75) 97 02/02/21 06:00 22 100/56 Mechanical Ventilator 45 02/02/21 06:00 72 22 106/74 (85) 95 02/02/21 05:30 85 21 125/82 (96) 97 02/02/21 05:08 72 22 40 02/02/21 05:00 22 102/56 Mechanical Ventilator 45 02/02/21 05:00 74 22 132/91 (105) 96 02/02/21 04:30 74 22 106/71 (83) 96 02/02/21 04:00 Mechanical Ventilator 02/02/21 04:00 98.7 74 22 103/75 (84) 97 02/02/21 04:00 22 106/71 Mechanical Ventilator 45 02/02/21 04:00 80 02/02/21 04:00 45 02/02/21 03:30 74 22 95/63 (74) 95 02/02/21 03:19 79 22 40 02/02/21 03:00 81 19 101/58 (72) 93 02/02/21 03:00 22 107/71 Mechanical Ventilator 45 02/02/21 02:30 85 22 100/60 (73) 91 02/02/21 02:00 83 22 104/65 (78) 96 02/02/21 01:59 22 100/68 Mechanical Ventilator 40 02/02/21 01:30 86 19 102/70 (81) 95 02/02/21 01:00 94 20 113/74 (87) 95 02/02/21 01:00 22 102/70 Mechanical Ventilator 40 02/02/21 00:57 92 22 96 40 92 22 02/02/21 00:30 80 22 109/74 (86) 94 02/02/21 00:00 Mechanical Ventilator 02/02/21 00:00 99.1 80 22 123/81 (95) 95 02/02/21 00:00 40 02/02/21 00:00 22 100/63 Mechanical Ventilator 40 02/02/21 00:00 86 02/01/21 23:30 84 22 116/76 (89) 95 02/01/21 23:10 81 22 40 02/01/21 23:00 81 22 122/79 (93) 96 02/01/21 23:00 22 106/72 Mechanical Ventilator 40 02/01/21 22:30 84 22 111/79 (90) 92 02/01/21 22:00 24 111/67 Mechanical Ventilator 40 02/01/21 22:00 85 22 110/72 (85) 91 02/01/21 21:30 92 22 94/59 (71) 02/01/21 21:04 96 21 40 02/01/21 21:00 97 99/60 (73) 02/01/21 21:00 24 99/65 Mechanical Ventilator 40 02/01/21 20:30 97 17 99/71 (80) 96 02/01/21 20:00 99.3 101 22 100/64 (76) 97 02/01/21 20:00 40 02/01/21 20:00 23 110/63 Mechanical Ventilator 40 02/01/21 20:00 96 02/01/21 20:00 Mechanical Ventilator 02/01/21 19:30 113 22 105/67 (80) 95 02/01/21 19:17 95 22 100 40 95 22 02/01/21 19:00 106 18 114/75 (88) 100 02/01/21 19:00 24 103/60 Mechanical Ventilator 40 02/01/21 18:30 91 22 104/53 (70) 99 02/01/21 18:00 22 98/54 Mechanical Ventilator 40 02/01/21 18:00 88 22 98/54 (69) 99 02/01/21 18:00 88 20 99/54 (69) 99 02/01/21 17:19 100 22 40 02/01/21 17:01 95 20 93/59 (70) 95 02/01/21 17:00 20 93/59 Mechanical Ventilator 40 02/01/21 16:00 99.3 106 18 94/55 (68) 99 02/01/21 16:00 40 02/01/21 16:00 18 94/55 Mechanical Ventilator 40 02/01/21 16:00 103 02/01/21 16:00 Mechanical Ventilator 02/01/21 15:12 115 22 116/70 (85) 94 02/01/21 15:00 22 116/70 Mechanical Ventilator 40 02/01/21 14:35 128 22 40 02/01/21 14:00 126 23 120/74 (89) 96 02/01/21 14:00 23 120/74 Mechanical Ventilator 40 02/01/21 13:00 98 23 114/78 (90) 96 02/01/21 13:00 23 120/74 Mechanical Ventilator 40 02/01/21 12:56 94 24 93 40 99 29 02/01/21 12:00 98.4 102 15 114/71 (85) 96 02/01/21 12:00 15 114/71 Mechanical Ventilator 40 02/01/21 12:00 Mechanical Ventilator 02/01/21 11:53 40 02/01/21 11:52 105 02/01/21 11:00 105 15 122/75 (91) 96 02/01/21 11:00 15 116/72 Mechanical Ventilator 40 Height (Feet): 5 Height (Inches): 5.00 Weight (Pounds): 233 HEENT: atraumatic Respiratory/Chest: lungs clear Cardiovascular: no JVD Abdomen: non distended Microbiology Date/Time Source Procedure Growth Status 01/31/21 16:05 Blood Blood Culture - Preliminary NO GROWTH AFTER 24 HOURS Resulted 01/31/21 15:50 Blood Blood Culture - Preliminary NO GROWTH AFTER 24 HOURS Resulted Laboratory Tests Test 02/02/21 05:10 02/02/21 09:00 White Blood Count 7.4 K/UL (4.8-10.8) Red Blood Count 3.68 M/UL (4.70-6.10) L Hemoglobin 10.5 G/DL (14.2-18.0) L Hematocrit 33.9 % (42.0-52.0) L Mean Corpuscular Volume 92 FL (80-99) Mean Corpuscular Hemoglobin 28.6 PG (27.0-31.0) Mean Corpuscular Hemoglobin Concent 31.0 G/DL (32.0-36.0) L Red Cell Distribution Width 16.2 % (11.6-14.8) H Platelet Count 273 K/UL (150-450) Mean Platelet Volume 7.6 FL (6.5-10.1) Neutrophils (%) (Auto) 56.4 % (45.0-75.0) Lymphocytes (%) (Auto) 29.4 % (20.0-45.0) Monocytes (%) (Auto) 9.4 % (1.0-10.0) Eosinophils (%) (Auto) 3.6 % (0.0-3.0) H Basophils (%) (Auto) 1.3 % (0.0-2.0) Prothrombin Time 12.7 SEC (9.30-11.50) H Prothromb Time International Ratio 1.2 (0.9-1.1) H Sodium Level 142 MMOL/L (136-145) Potassium Level 4.2 MMOL/L (3.5-5.1) Chloride Level 105 MMOL/L (98-107) Carbon Dioxide Level 29 MMOL/L (21-32) Anion Gap 8 mmol/L (5-15) Blood Urea Nitrogen 7 mg/dL (7-18) Creatinine 0.6 MG/DL (0.55-1.30) Estimat Glomerular Filtration Rate > 60 mL/min (>60) Glucose Level 217 MG/DL (74-106) H Calcium Level 9.1 MG/DL (8.5-10.1) Total Bilirubin 0.2 MG/DL (0.2-1.0) Aspartate Amino Transf (AST/SGOT) 14 U/L (15-37) L Alanine Aminotransferase (ALT/SGPT) 18 U/L (12-78) Alkaline Phosphatase 106 U/L (46-116) Total Protein 6.3 G/DL (6.4-8.2) L Albumin 2.1 G/DL (3.4-5.0) L Globulin 4.2 g/dL Albumin/Globulin Ratio 0.5 (1.0-2.7) L Vancomycin Level Trough 16.1 ug/mL (5.0-12.0) H Current Medications Medications (Trade) Dose Ordered Sig/Johnny Route PRN Reason Start Time Stop Time Status Last Admin Dose Admin Acetaminophen (Tylenol) 650 mg Q6H PRN NG Temp >100.5 01/09/21 09:15 02/08/21 09:14 01/26/21 02:05 Acetaminophen (Tylenol) 650 mg Q6H PRN NG Mild Pain (Pain Scale 1-3) 01/09/21 09:15 02/08/21 09:14 01/27/21 05:10 Albuterol Sulfate (Proventil MDI) 2 puff Q6HRT INH 01/02/21 19:00 04/02/21 18:59 02/02/21 07:16 Chlorhexidine Gluconate (Myranda-Hex 2%) 1 applic DAILY@2000 TOPIC 01/29/21 20:00 04/29/21 19:59 02/01/21 20:00 Dextrose (Dextrose 50%) 25 ml Q30M PRN IV Hypoglycemia 01/06/21 23:45 04/06/21 23:44 Dextrose (Dextrose 50%) 50 ml Q30M PRN IV Hypoglycemia 01/06/21 23:45 04/06/21 23:44 Docosanol (Abreva) 1 gm FIVE TIMES A DAY TP 01/29/21 20:00 04/29/21 19:59 02/02/21 10:03 Fentanyl Citrate 250 ml @ 1 mls/hr Q24H IV 02/02/21 01:45 02/04/21 01:44 02/02/21 01:59 Insulin Aspart (NovoLOG) EVERY 6 HOURS SUBQ 01/09/21 12:00 04/04/21 16:29 02/02/21 06:26 Lansoprazole (Prevacid) 30 mg DAILY GT 01/24/21 09:00 02/15/21 08:59 02/02/21 08:40 Midodrine (Pro-Amatine) 10 mg Q8HR ORAL 01/20/21 14:00 04/20/21 13:59 02/02/21 06:25 Potassium Chloride (K-Dur) 20 meq TWICE A DAY NG 01/20/21 13:00 04/20/21 12:59 02/02/21 08:41 Quetiapine Fumarate (SEROqueL) 100 mg Q12HR ORAL 01/20/21 15:00 03/06/21 14:59 02/02/21 08:42 Valproic Acid (Depakene) 500 mg Q12HR GT 01/22/21 21:00 02/21/21 20:59 02/02/21 08:40 Vancomycin HCl 250 ml @ 166.667 mls/hr Q8H IVPB 02/01/21 09:00 02/06/21 08:59 02/02/21 08:41 Vancomycin HCl (Vanco pharmacy to dose) 1 ea DAILY PRN MISC Per rx protocol 01/25/21 08:15 02/24/21 08:14 Warfarin Sodium (Coumadin) 5 mg ONCE ORAL 02/02/21 17:00 02/02/21 18:00 Antonio Ahn MD Feb 02, 2021 10:55
[2021-02-02] MEDS: Acetaminophen 650mg/20.3ml NG PRN (12:55)
--- NOTE | 2021-02-02 13:58 | Nephrology Progress Note ---
Assessment/Plan Problem List: (1) Hyperkalemia (2) Pneumonia due to COVID-19 virus (3) Respiratory failure with hypoxia (4) Obesity (5) Schizophrenia (6) DMII (diabetes mellitus, type 2) Assessment Hyperkalemia Stable renal parameters Hyperglycemia Covid pneumonia due to COVID-19 virus Acute respiratory failure with hypoxia requiring mechanical ventilation History of COPD History of DVT, pulmonary emboli Obese Hypertension History of diabetes Psych condition, schizophrenia, bipolar disease Plan February 02: Status quo. Full code. Intubated on ventilator. FiO2 40%. Renal parameters stable. February 01: Status quo. FiO2 40%. Full code. Labs reviewed. Renal parameters stable. January 31: Status quo. FiO2 45%. Full code. Renal parameters stable. Abnormal electrolytes addressed. January 30: Status quo. Remains full code. Intubated. On ventilator. Low magnesium addressed. Continue per consultants. January 29: Status quo. Labs reviewed. Low magnesium addressed. Discussed with JOHAN Ratliff. Continue per consultants. January 28: Status quo. Labs and medication list reviewed. K-Phos supplement ordered. Continue per current treatment plan. January 27: Patient remains full code. Intubated on ventilator. FiO2 50%. Labs reviewed. Renal parameters stable. Medication list reviewed. January 26: Full code. Intubated. On ventilator. FiO2 65%. No CHEM panel drawn today. Continue per consultants. January 25: Status unchanged. Blood pressure low. Remains full code on ventilator. Continue per consultants. Medication list reviewed. INR is 3.8 today. January 24: Status quo. Intubated on ventilator and full code. Labs reviewed. Medication list reviewed. Continue per consultants. January 23: Patient on prone position. IntubatedFiO2 65%. Renal parameters stable. Continue per consultants. Date hospitalization. Possible trach?. January 22: FiO2 50%. Prone position. Labs reviewed. Stable from renal standpoint of view. Continue per consultants. January 21: Full code. Intubated on ventilator. FiO2 40%. Labs reviewed. Renal parameters stable. Continue per consultants. January 20: Status unchanged. Full code. On ventilator. Chest x-ray reviewed. IV fluid discontinued. Potassium supplement given. 1 dose of Lasix given. Albumin bolus given. Midodrine started. Will monitor renal parameters and electrolytes. Discussed with JOHAN Mohamud. January 19: Labs reviewed. Renal parameters stable. Remains full code intubated on ventilator. FiO2 50%. Continue per consultants. January 18: Full code. Intubated. On ventilator. FiO2 down to 35%. No labs drawn today. Continue to monitor renal parameters and electrolytes. January 17: Full code. Intubated on ventilator. FiO2 remains at 60%. Labs reviewed. Renal parameters stable. January 16: Full code. Intubated. Labs reviewed. Renal parameters stable. FiO2 60%. Continue per consultants. January 15: Patient remains intubated and full code. Labs reviewed. Stable renal parameters. January 14: Patient full code. Intubated on ventilator. On prone position until 5 PM. Labs reviewed. Stable from renal standpoint of view. January 13: Labs reviewed. Renal parameters stable. Continue per consultants. Patient remain full code and intubated on ventilator. January 12: Labs reviewed. Renal parameters stable. Patient remains full code. Remains intubated on ventilator and on prone position. Continue per consultants. January 11: Labs reviewed. Renal parameters stable. Continue per consultants. January 10: Labs reviewed. Renal parameters stable. Continue per consultants. Change IV to half-normal saline Kayexalate via NG tube for high potassium Monitor electrolytes and renal parameters Per orders, per consultants Subjective ROS Limited/Unobtainable: Yes Objective Objective Last 24 Hour Vital Signs Date Time Temp Pulse Resp B/P (MAP) Pulse Ox O2 Delivery O2 Flow Rate FiO2 02/02/21 13:25 98.7 02/02/21 13:02 135 26 93 Mechanical Ventilator 40 02/02/21 13:00 132 24 99/50 (66) 91 02/02/21 12:57 143 26 40 02/02/21 12:00 135 02/02/21 12:00 98.7 131 28 126/71 (89) 94 02/02/21 12:00 45 02/02/21 12:00 Mechanical Ventilator 02/02/21 11:28 144 28 40 02/02/21 11:00 131 28 139/94 (109) 97 02/02/21 11:00 150 20 171/100 (123) 94 02/02/21 10:00 102 20 143/94 (110) 98 02/02/21 10:00 20 143/94 Endotracheal Tube 45 02/02/21 09:00 72 22 102/68 (79) 96 02/02/21 09:00 22 102/68 Endotracheal Tube 45 02/02/21 08:48 98 02/02/21 08:45 74 22 40 40 02/02/21 08:00 45 02/02/21 08:00 97.5 82 22 100/72 (81) 95 02/02/21 08:00 76 02/02/21 08:00 Mechanical Ventilator 02/02/21 08:00 22 100/72 Endotracheal Tube 45 02/02/21 07:08 93 22 98 40 88 22 40 02/02/21 07:00 88 13 103/50 (67) 99 02/02/21 07:00 96 15 40 40 02/02/21 07:00 22 145/94 Mechanical Ventilator 45 02/02/21 06:30 75 22 99/63 (75) 97 02/02/21 06:00 22 100/56 Mechanical Ventilator 45 02/02/21 06:00 72 22 106/74 (85) 95 02/02/21 05:30 85 21 125/82 (96) 97 02/02/21 05:08 72 22 40 02/02/21 05:00 22 102/56 Mechanical Ventilator 45 02/02/21 05:00 74 22 132/91 (105) 96 02/02/21 04:30 74 22 106/71 (83) 96 02/02/21 04:00 Mechanical Ventilator 02/02/21 04:00 98.7 74 22 103/75 (84) 97 02/02/21 04:00 22 106/71 Mechanical Ventilator 45 02/02/21 04:00 80 02/02/21 04:00 45 02/02/21 03:30 74 22 95/63 (74) 95 02/02/21 03:19 79 22 40 02/02/21 03:00 81 19 101/58 (72) 93 02/02/21 03:00 22 107/71 Mechanical Ventilator 45 02/02/21 02:30 85 22 100/60 (73) 91 02/02/21 02:00 83 22 104/65 (78) 96 02/02/21 01:59 22 100/68 Mechanical Ventilator 40 02/02/21 01:30 86 19 102/70 (81) 95 02/02/21 01:00 94 20 113/74 (87) 95 02/02/21 01:00 22 102/70 Mechanical Ventilator 40 02/02/21 00:57 92 22 96 40 92 22 02/02/21 00:30 80 22 109/74 (86) 94 02/02/21 00:00 Mechanical Ventilator 02/02/21 00:00 99.1 80 22 123/81 (95) 95 02/02/21 00:00 40 02/02/21 00:00 22 100/63 Mechanical Ventilator 40 02/02/21 00:00 86 02/01/21 23:30 84 22 116/76 (89) 95 02/01/21 23:10 81 22 40 02/01/21 23:00 81 22 122/79 (93) 96 02/01/21 23:00 22 106/72 Mechanical Ventilator 40 02/01/21 22:30 84 22 111/79 (90) 92 02/01/21 22:00 24 111/67 Mechanical Ventilator 40 02/01/21 22:00 85 22 110/72 (85) 91 02/01/21 21:30 92 22 94/59 (71) 02/01/21 21:04 96 21 40 02/01/21 21:00 97 99/60 (73) 02/01/21 21:00 24 99/65 Mechanical Ventilator 40 02/01/21 20:30 97 17 99/71 (80) 96 02/01/21 20:00 99.3 101 22 100/64 (76) 97 02/01/21 20:00 40 02/01/21 20:00 23 110/63 Mechanical Ventilator 40 02/01/21 20:00 96 02/01/21 20:00 Mechanical Ventilator 02/01/21 19:30 113 22 105/67 (80) 95 02/01/21 19:17 95 22 100 40 95 22 02/01/21 19:00 106 18 114/75 (88) 100 02/01/21 19:00 24 103/60 Mechanical Ventilator 40 02/01/21 18:30 91 22 104/53 (70) 99 02/01/21 18:00 22 98/54 Mechanical Ventilator 40 02/01/21 18:00 88 22 98/54 (69) 99 02/01/21 18:00 88 20 99/54 (69) 99 02/01/21 17:19 100 22 40 02/01/21 17:01 95 20 93/59 (70) 95 02/01/21 17:00 20 93/59 Mechanical Ventilator 40 02/01/21 16:00 99.3 106 18 94/55 (68) 99 02/01/21 16:00 40 02/01/21 16:00 18 94/55 Mechanical Ventilator 40 02/01/21 16:00 103 02/01/21 16:00 Mechanical Ventilator 02/01/21 15:12 115 22 116/70 (85) 94 02/01/21 15:00 22 116/70 Mechanical Ventilator 40 02/01/21 14:35 128 22 40 02/01/21 14:00 126 23 120/74 (89) 96 02/01/21 14:00 23 120/74 Mechanical Ventilator 40 Intake and Output 02/01/21 02/02/21 19:00 07:00 Intake Total 1490 ml 1135 ml Output Total 1525 ml 1075 ml Balance -35 ml 60 ml Free Water 100 ml 60 ml IV Total 430 ml 415 ml Tube Feeding 720 ml 660 ml Other 240 ml Output Urine Total 1525 ml 1075 ml # Bowel Movements 1 Current Medications Medications (Trade) Dose Ordered Sig/Johnny Route PRN Reason Start Time Stop Time Status Last Admin Dose Admin Acetaminophen (Tylenol) 650 mg Q6H PRN NG Temp >100.5 01/09/21 09:15 02/08/21 09:14 01/26/21 02:05 Acetaminophen (Tylenol) 650 mg Q6H PRN NG Mild Pain (Pain Scale 1-3) 01/09/21 09:15 02/08/21 09:14 02/02/21 12:55 Albuterol Sulfate (Proventil MDI) 2 puff Q6HRT INH 01/02/21 19:00 04/02/21 18:59 02/02/21 13:01 Chlorhexidine Gluconate (Myranda-Hex 2%) 1 applic DAILY@1999 TOPIC 01/29/21 20:00 04/29/21 19:59 02/01/21 20:00 Dextrose (Dextrose 50%) 25 ml Q30M PRN IV Hypoglycemia 01/06/21 23:45 04/06/21 23:44 Dextrose (Dextrose 50%) 50 ml Q30M PRN IV Hypoglycemia 01/06/21 23:45 04/06/21 23:44 Docosanol (Abreva) 1 gm FIVE TIMES A DAY TP 01/29/21 20:00 04/29/21 19:59 02/02/21 13:19 Fentanyl Citrate 250 ml @ 1 mls/hr Q24H IV 02/02/21 01:45 02/04/21 01:44 02/02/21 01:59 Insulin Aspart (NovoLOG) EVERY 6 HOURS SUBQ 01/09/21 12:00 04/04/21 16:29 02/02/21 12:41 Lansoprazole (Prevacid) 30 mg DAILY GT 01/24/21 09:00 02/15/21 08:59 02/02/21 08:40 Midodrine (Pro-Amatine) 10 mg Q8HR ORAL 01/20/21 14:00 04/20/21 13:59 02/02/21 06:25 Potassium Chloride (K-Dur) 20 meq TWICE A DAY NG 01/20/21 13:00 04/20/21 12:59 02/02/21 08:41 Quetiapine Fumarate (SEROqueL) 100 mg Q12HR ORAL 01/20/21 15:00 03/06/21 14:59 02/02/21 08:42 Valproic Acid (Depakene) 500 mg Q12HR GT 01/22/21 21:00 02/21/21 20:59 02/02/21 08:40 Vancomycin HCl 250 ml @ 166.667 mls/hr Q8H IVPB 02/01/21 09:00 02/06/21 08:59 02/02/21 08:41 Vancomycin HCl (Vanco pharmacy to dose) 1 ea DAILY PRN MISC Per rx protocol 01/25/21 08:15 02/24/21 08:14 Warfarin Sodium (Coumadin per pharmacy) 1 ea DAILY PRN MISC Per rx protocol 02/02/21 11:45 03/04/21 11:44 Warfarin Sodium (Coumadin) 5 mg ONCE ORAL 02/02/21 17:00 02/02/21 18:00 Laboratory Tests 02/02/21 05:10: White Blood Count 7.4, Red Blood Count 3.68L, Hemoglobin 10.5L, Hematocrit 33.9L , Mean Corpuscular Volume 92, Mean Corpuscular Hemoglobin 28.6, Mean Corpuscular Hemoglobin Concent 31.0L, Red Cell Distribution Width 16.2H, Platelet Count 273, Mean Platelet Volume 7.6, Neutrophils (%) (Auto) 56.4, Lymphocytes (%) (Auto) 29.4, Monocytes (%) (Auto) 9.4, Eosinophils (%) (Auto) 3.6H, Basophils (%) (Auto) 1.3, Prothrombin Time 12.7H, Prothromb Time International Ratio 1.2H, Sodium Level 142, Potassium Level 4.2, Chloride Level 105, Carbon Dioxide Level 29, Anion Gap 8, Blood Urea Nitrogen 7, Creatinine 0.6, Estimat Glomerular Filtration Rate > 60, Glucose Level 217H, Calcium Level 9.1, Total Bilirubin 0.2, Aspartate Amino Transf (AST/SGOT) 14L, Alanine Aminotransferase (ALT/SGPT) 18, Alkaline Phosphatase 106, Total Protein 6.3L, Albumin 2.1L, Globulin 4.2, Albumin/Globulin Ratio 0.5L 02/02/21 09:00: Vancomycin Level Trough 16.1H Height (Feet): 5 Height (Inches): 5.00 Weight (Pounds): 233 General Appearance: no apparent distress Cardiovascular: tachycardia Respiratory/Chest: decreased breath sounds Abdomen: distended Avi Frye MD Feb 02, 2021 13:58
--- NOTE | 2021-02-02 15:13 | Internal Med Progress Note ---
Subjective Date of Service: Feb 02, 2021 Physician Name Vickey Brown Attending Physician Geovanny Bradley MD Current Medications Medications (Trade) Dose Ordered Sig/Johnny Route PRN Reason Start Time Stop Time Status Last Admin Dose Admin Acetaminophen (Tylenol) 650 mg Q6H PRN NG Temp >100.5 01/09/21 09:15 02/08/21 09:14 01/26/21 02:05 Acetaminophen (Tylenol) 650 mg Q6H PRN NG Mild Pain (Pain Scale 1-3) 01/09/21 09:15 02/08/21 09:14 02/02/21 12:55 Albuterol Sulfate (Proventil MDI) 2 puff Q6HRT INH 01/02/21 19:00 04/02/21 18:59 02/02/21 13:01 Chlorhexidine Gluconate (Myranda-Hex 2%) 1 applic DAILY@2000 TOPIC 01/29/21 20:00 04/29/21 19:59 02/01/21 20:00 Dextrose (Dextrose 50%) 25 ml Q30M PRN IV Hypoglycemia 01/06/21 23:45 04/06/21 23:44 Dextrose (Dextrose 50%) 50 ml Q30M PRN IV Hypoglycemia 01/06/21 23:45 04/06/21 23:44 Docosanol (Abreva) 1 gm FIVE TIMES A DAY TP 01/29/21 20:00 04/29/21 19:59 02/02/21 13:19 Fentanyl Citrate 250 ml @ 1 mls/hr Q24H IV 02/02/21 01:45 02/04/21 01:44 02/02/21 01:59 Insulin Aspart (NovoLOG) EVERY 6 HOURS SUBQ 01/09/21 12:00 04/04/21 16:29 02/02/21 12:41 Lansoprazole (Prevacid) 30 mg DAILY GT 01/24/21 09:00 02/15/21 08:59 02/02/21 08:40 Midodrine (Pro-Amatine) 10 mg Q8HR ORAL 01/20/21 14:00 04/20/21 13:59 02/02/21 14:22 Potassium Chloride (K-Dur) 20 meq TWICE A DAY NG 01/20/21 13:00 04/20/21 12:59 02/02/21 08:41 Quetiapine Fumarate (SEROqueL) 100 mg Q12HR ORAL 01/20/21 15:00 03/06/21 14:59 02/02/21 08:42 Valproic Acid (Depakene) 500 mg Q12HR GT 01/22/21 21:00 02/21/21 20:59 02/02/21 08:40 Vancomycin HCl 250 ml @ 166.667 mls/hr Q8H IVPB 02/01/21 09:00 02/06/21 08:59 02/02/21 08:41 Vancomycin HCl (Vanco pharmacy to dose) 1 ea DAILY PRN MISC Per rx protocol 01/25/21 08:15 02/24/21 08:14 Warfarin Sodium (Coumadin per pharmacy) 1 ea DAILY PRN MISC Per rx protocol 02/02/21 11:45 03/04/21 11:44 Warfarin Sodium (Coumadin) 5 mg ONCE ORAL 02/02/21 17:00 02/02/21 18:00 Allergies: Coded Allergies: No Known Allergies (Unverified , 01/02/21) ROS Limited/Unobtainable: Yes Subjective 60 YO M admitted with shortness of breath. Now respiratory failure. Cover for Int Med-DR Bradley. ICU. Intubated and sedated Objective Last Vital Signs Date Time Temp Pulse Resp B/P (MAP) Pulse Ox O2 Delivery O2 Flow Rate FiO2 02/02/21 14:32 86 27 40 02/02/21 14:00 82/49 (60) 94 02/02/21 13:25 98.7 02/02/21 13:02 Mechanical Ventilator 01/24/21 21:00 65.0 Laboratory Tests Test 02/02/21 05:10 02/02/21 09:00 White Blood Count 7.4 K/UL (4.8-10.8) Red Blood Count 3.68 M/UL (4.70-6.10) L Hemoglobin 10.5 G/DL (14.2-18.0) L Hematocrit 33.9 % (42.0-52.0) L Mean Corpuscular Volume 92 FL (80-99) Mean Corpuscular Hemoglobin 28.6 PG (27.0-31.0) Mean Corpuscular Hemoglobin Concent 31.0 G/DL (32.0-36.0) L Red Cell Distribution Width 16.2 % (11.6-14.8) H Platelet Count 273 K/UL (150-450) Mean Platelet Volume 7.6 FL (6.5-10.1) Neutrophils (%) (Auto) 56.4 % (45.0-75.0) Lymphocytes (%) (Auto) 29.4 % (20.0-45.0) Monocytes (%) (Auto) 9.4 % (1.0-10.0) Eosinophils (%) (Auto) 3.6 % (0.0-3.0) H Basophils (%) (Auto) 1.3 % (0.0-2.0) Prothrombin Time 12.7 SEC (9.30-11.50) H Prothromb Time International Ratio 1.2 (0.9-1.1) H Sodium Level 142 MMOL/L (136-145) Potassium Level 4.2 MMOL/L (3.5-5.1) Chloride Level 105 MMOL/L (98-107) Carbon Dioxide Level 29 MMOL/L (21-32) Anion Gap 8 mmol/L (5-15) Blood Urea Nitrogen 7 mg/dL (7-18) Creatinine 0.6 MG/DL (0.55-1.30) Estimat Glomerular Filtration Rate > 60 mL/min (>60) Glucose Level 217 MG/DL (74-106) H Calcium Level 9.1 MG/DL (8.5-10.1) Total Bilirubin 0.2 MG/DL (0.2-1.0) Aspartate Amino Transf (AST/SGOT) 14 U/L (15-37) L Alanine Aminotransferase (ALT/SGPT) 18 U/L (12-78) Alkaline Phosphatase 106 U/L (46-116) Total Protein 6.3 G/DL (6.4-8.2) L Albumin 2.1 G/DL (3.4-5.0) L Globulin 4.2 g/dL Albumin/Globulin Ratio 0.5 (1.0-2.7) L Vancomycin Level Trough 16.1 ug/mL (5.0-12.0) H Microbiology Date/Time Source Procedure Growth Status 01/31/21 16:05 Blood Blood Culture - Preliminary NO GROWTH AFTER 24 HOURS Resulted 01/31/21 15:50 Blood Blood Culture - Preliminary NO GROWTH AFTER 24 HOURS Resulted Intake and Output 02/01/21 02/02/21 19:00 07:00 Intake Total 1490 ml 1135 ml Output Total 1525 ml 1075 ml Balance -35 ml 60 ml Free Water 100 ml 60 ml IV Total 430 ml 415 ml Tube Feeding 720 ml 660 ml Other 240 ml Output Urine Total 1525 ml 1075 ml # Bowel Movements 1 Objective Objective General: awake, responsive , confused. HEENT: NCAT, sclera anicteric, PERRL, EOMI. Neck: Supple, no significant jugular venous distention, Lungs: mech vent; decreased air at the bases, occasional crackles, no Wheeze. Heart: Regular rate and rhythm, normal S1/S2, no murmurs Abdomen: soft, nontender, nondistended. Normoactive bowel sound, obesity. / Rectal: Refused and deferred. Extremities: Left LE: No Cyanosis , clubbing or edema. Right LE AKA. Neuro: A&O x 2, Able to move all extremities Skin: warm, no rashes or lesions. Assessment/Plan Assessment/Plan Assessment/Plan Assessment/Plan (1) Pneumonia due to COVID-19 virus ICD Codes: U07.1 - COVID-19; J12.82 - Pneumonia due to coronavirus disease 2019 SNOMED: 691926812855285678 (2) Acute hypercapnic respiratory failure ICD Codes: J96.02 - Acute respiratory failure with hypercapnia SNOMED: 918525197 (3) Respiratory failure with hypoxia ICD Codes: J96.91 - Respiratory failure, unspecified with hypoxia SNOMED: 32345998187770090 Qualifiers: Qualified Codes: J96.01 - Acute respiratory failure with hypoxia (4) COPD (chronic obstructive pulmonary disease) ICD Codes: J44.9 - Chronic obstructive pulmonary disease, unspecified SNOMED: 63598764 (5) History of deep venous thrombosis or pulmonary embolus SNOMED: 998503388 (6) Obesity ICD Codes: E66.9 - Obesity, unspecified SNOMED: 735205350, 102916133 (7) Essential hypertension ICD Codes: I10 - Essential (primary) hypertension SNOMED: 39737189 (8) Diabetes mellitus type 2 in obese ICD Codes: E11.69 - Type 2 diabetes mellitus with other specified complication; E66.9 - Obesity, unspecified SNOMED: 12489823 (9) History of hydrocephalus ICD Codes: Z86.69 - Personal history of other diseases of the nervous system and sense organs SNOMED: 489428168 (10) Schizophrenia ICD Codes: F20.9 - Schizophrenia, unspecified SNOMED: 14985786 (11) Bipolar 1 disorder ICD Codes: F31.9 - Bipolar disorder, unspecified SNOMED: 105111065 (12) Anticoagulant long-term use ICD 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 Sepsis=gram pos cocci 14. thrush Assessment/Plan: Optimize pulmonary hygiene/mobilize as tolerated Non Rebreather mask>BIPAP>intubated S/P Remdesivir IV S/P Solu-Medrol 40 mg IV twice a day. Abx = zosyn and vanco F/U Cx's Monitor volumes and renal function DVT Px: Coumadin DC IV fluid Start diet Monitor blood glucose level closely. On levophed, fentanyl and propofol drips Pulmonary=Dr Luis ID=Dr Gomez Psych consult=Dr Gallegos; continue seroquel continue nystatin await tracheostomy Optimize pulmonary hygiene/mobilize as tolerated Completed Remdesivir IV Abx: Vanco IV and Zosyn IV F/U Cx's Monitor volumes and renal function DVT Px: Coumadin Monitor blood glucose level closely. FULL Code Tolerated Tube feeding @ 60 cc/hr. Vickey Brown MD Feb 02, 2021 15:13
[2021-02-02] MEDS ORDERED: Warfarin Sodium 5mg ORAL SCH (17:00)
[2021-02-02] MEDS: Dyna-Hex 2% Top Sol 2oz TOPIC SCH (19:34)
[2021-02-03] VITALS (56 sets, daily range): BP systolic 54–165; BP diastolic 27–95
[2021-02-03] MEDS: NovoLOG Insulin Flexpen SUBQ SCH ×4 (00:36→18:13)
[2021-02-03] MEDS: Vancomycin 1.25gm/250ml Premix IVPB SCH ×3 (00:38→18:10)
[2021-02-03] MEDS: Albuterol 90mcg Inhaler 8gm INH SCH ×2 (02:56→07:08)
[2021-02-03] MEDS: Acetaminophen 650mg/20.3ml NG PRN (04:10)
[2021-02-03] MEDS: Midodrine 10mg tab ORAL SCH ×3 (05:56→21:09)
[2021-02-03] MEDS: Abreva 10% cream 2gm TP SCH ×5 (07:28→19:06)
--- NOTE | 2021-02-03 07:47 | Pulmonology Progress Note ---
Subjective ROS Limited/Unobtainable: Yes Allergies: Coded Allergies: No Known Allergies (Unverified , 01/02/21) Objective Last 24 Hour Vital Signs Date Time Temp Pulse Resp B/P (MAP) Pulse Ox O2 Delivery O2 Flow Rate FiO2 02/03/21 07:08 89 22 100 Mechanical Ventilator 40 90 22 40 02/03/21 07:00 95 22 106/67 (80) 92 02/03/21 06:30 77 22 102/72 (82) 93 02/03/21 06:15 76 22 103/71 (82) 92 02/03/21 06:00 76 22 113/76 (88) 92 02/03/21 05:45 80 22 112/75 (87) 90 02/03/21 05:30 80 22 102/71 (81) 90 02/03/21 05:15 77 19 104/67 (79) 89 02/03/21 05:00 86 21 103/68 (80) 90 02/03/21 04:45 79 18 93/60 (71) 89 02/03/21 04:30 76 4 94/63 (73) 88 02/03/21 04:15 79 22 95/57 (70) 89 02/03/21 04:00 Mechanical Ventilator 02/03/21 04:00 40 02/03/21 04:00 88 22 98/66 (77) 91 02/03/21 04:00 71 02/03/21 03:56 89 25 99/63 (75) 92 02/03/21 03:56 89 25 99/63 (75) 92 02/03/21 03:45 86 19 91 02/03/21 03:45 86 19 91 02/03/21 03:30 86 21 106/61 (76) 90 02/03/21 03:30 86 21 106/61 (76) 90 02/03/21 03:15 83 22 102/66 (78) 88 02/03/21 03:15 83 22 102/66 (78) 88 02/03/21 03:00 88 21 115/81 (92) 95 02/03/21 03:00 88 21 115/81 (92) 95 02/03/21 02:57 86 22 97 Mechanical Ventilator 40 94 22 40 02/03/21 02:45 89 22 109/68 (82) 91 02/03/21 02:45 89 22 109/68 (82) 91 02/03/21 02:30 80 22 99/65 (76) 91 02/03/21 02:30 80 22 99/65 (76) 91 02/03/21 02:15 79 22 108/68 (81) 91 02/03/21 02:15 79 22 108/68 (81) 91 02/03/21 02:00 79 22 102/72 (82) 91 02/03/21 02:00 79 22 102/72 (82) 91 02/03/21 01:45 79 22 104/67 (79) 91 02/03/21 01:45 79 22 104/67 (79) 91 02/03/21 01:30 79 22 107/69 (82) 91 02/03/21 01:30 79 22 107/69 (82) 91 02/03/21 01:15 83 22 103/66 (78) 91 02/03/21 01:15 83 22 103/66 (78) 91 02/03/21 01:00 80 22 104/72 (83) 91 02/03/21 01:00 80 22 104/72 (83) 91 02/03/21 00:45 87 22 100/65 (77) 91 02/03/21 00:45 87 22 100/65 (77) 91 02/03/21 00:30 82 22 100/64 (76) 91 02/03/21 00:30 82 22 100/64 (76) 91 02/03/21 00:15 81 22 104/70 (81) 91 02/03/21 00:15 81 22 104/70 (81) 91 02/03/21 00:00 77 02/03/21 00:00 82 22 105/67 (80) 91 02/03/21 00:00 Mechanical Ventilator 02/03/21 00:00 82 22 105/67 (80) 91 02/03/21 00:00 40 02/02/21 23:45 87 22 125/84 (98) 92 02/02/21 23:30 78 22 104/72 (83) 93 02/02/21 23:30 84 22 40 02/02/21 23:15 85 22 108/72 (84) 93 02/02/21 23:00 81 22 104/68 (80) 94 02/02/21 22:45 75 22 103/72 (82) 94 02/02/21 22:30 77 22 98/67 (77) 92 02/02/21 22:15 77 22 97/63 (74) 92 02/02/21 22:00 22 98/65 Mechanical Ventilator 40 02/02/21 22:00 79 22 98/65 (76) 90 02/02/21 21:00 94 22 100/61 (74) 92 02/02/21 21:00 22 100/61 Mechanical Ventilator 40 02/02/21 20:00 40 02/02/21 20:00 74 02/02/21 20:00 22 104/69 Mechanical Ventilator 40 02/02/21 20:00 99.1 77 22 104/69 (81) 92 02/02/21 20:00 Mechanical Ventilator 02/02/21 19:30 92 22 40 02/02/21 19:00 22 115/78 Mechanical Ventilator 40 02/02/21 19:00 74 22 115/78 (90) 90 02/02/21 18:58 75 22 113/75 (88) 90 02/02/21 18:03 22 118/84 Endotracheal Tube 65.0 45 02/02/21 18:00 76 22 118/83 (95) 94 02/02/21 18:00 22 118/83 Endotracheal Tube 45 02/02/21 17:00 79 22 118/84 (95) 96 02/02/21 17:00 22 118/84 Endotracheal Tube 45 02/02/21 16:46 77 22 40 02/02/21 16:00 45 02/02/21 16:00 79 02/02/21 16:00 22 98/66 Endotracheal Tube 45 02/02/21 16:00 99.3 79 22 98/66 (77) 95 02/02/21 16:00 Mechanical Ventilator 02/02/21 15:00 22 98/71 Endotracheal Tube 45 02/02/21 15:00 78 22 98/71 (80) 97 02/02/21 14:32 86 27 40 02/02/21 14:00 22 92/49 Endotracheal Tube 45 02/02/21 14:00 96 22 92/49 (63) 94 02/02/21 13:25 98.7 02/02/21 13:02 135 26 93 Mechanical Ventilator 40 02/02/21 13:00 24 99/50 Endotracheal Tube 45 02/02/21 13:00 132 24 99/50 (66) 91 02/02/21 12:57 143 26 40 02/02/21 12:45 27 107/68 Endotracheal Tube 45 02/02/21 12:45 138 27 107/68 (81) 92 02/02/21 12:30 134 29 129/76 (93) 93 02/02/21 12:30 29 129/76 Endotracheal Tube 45 02/02/21 12:15 141 26 128/74 (92) 99 02/02/21 12:15 26 128/74 Endotracheal Tube 45 02/02/21 12:00 135 02/02/21 12:00 98.7 131 28 126/71 (89) 94 02/02/21 12:00 28 126/71 Endotracheal Tube 45 02/02/21 12:00 45 02/02/21 12:00 Mechanical Ventilator 02/02/21 11:45 128 23 121/82 (95) 96 02/02/21 11:45 23 121/82 Endotracheal Tube 45 02/02/21 11:30 26 127/82 Endotracheal Tube 45 02/02/21 11:30 144 26 127/82 (97) 97 02/02/21 11:28 144 28 40 02/02/21 11:15 131 28 139/94 (109) 97 02/02/21 11:15 28 139/94 Endotracheal Tube 45 02/02/21 11:00 20 171/100 Endotracheal Tube 45 02/02/21 11:00 131 28 139/94 (109) 97 02/02/21 11:00 150 20 171/100 (123) 94 02/02/21 10:45 102 22 114/75 (88) 98 02/02/21 10:30 89 22 89/58 (68) 96 02/02/21 10:15 91 20 113/77 (89) 97 02/02/21 10:00 102 20 143/94 (110) 98 02/02/21 10:00 20 143/94 Endotracheal Tube 45 02/02/21 09:00 72 22 102/68 (79) 96 02/02/21 09:00 22 102/68 Endotracheal Tube 45 02/02/21 08:48 98 02/02/21 08:45 74 22 40 40 02/02/21 08:00 45 02/02/21 08:00 97.5 82 22 100/72 (81) 95 02/02/21 08:00 76 02/02/21 08:00 Mechanical Ventilator 02/02/21 08:00 22 100/72 Endotracheal Tube 45 Intake and Output 02/02/21 02/03/21 19:00 07:00 Intake Total 864.50 ml 875 ml Output Total 1315 ml 670 ml Balance -450.50 ml 205 ml Free Water 200 ml IV Total 184.50 ml 45 ml Tube Feeding 480 ml 720 ml Other 110 ml Output Urine Total 1315 ml 670 ml # Bowel Movements 1 Microbiology Date/Time Source Procedure Growth Status 01/31/21 16:05 Blood Blood Culture - Preliminary NO GROWTH AFTER 48 HOURS Resulted 01/31/21 15:50 Blood Blood Culture - Preliminary NO GROWTH AFTER 48 HOURS Resulted Laboratory Tests 02/02/21 09:00: Vancomycin Level Trough 16.1H Current Medications Medications (Trade) Dose Ordered Sig/Johnny Route PRN Reason Start Time Stop Time Status Last Admin Dose Admin Acetaminophen (Tylenol) 650 mg Q6H PRN NG Temp >100.5 01/09/21 09:15 02/08/21 09:14 01/26/21 02:05 Acetaminophen (Tylenol) 650 mg Q6H PRN NG Mild Pain (Pain Scale 1-3) 01/09/21 09:15 02/08/21 09:14 02/03/21 04:10 Albuterol Sulfate (Proventil MDI) 2 puff Q6HRT INH 01/02/21 19:00 04/02/21 18:59 02/03/21 07:08 Chlorhexidine Gluconate (Myranda-Hex 2%) 1 applic DAILY@1999 TOPIC 01/29/21 20:00 04/29/21 19:59 02/02/21 19:34 Dextrose (Dextrose 50%) 25 ml Q30M PRN IV Hypoglycemia 01/06/21 23:45 04/06/21 23:44 Dextrose (Dextrose 50%) 50 ml Q30M PRN IV Hypoglycemia 01/06/21 23:45 04/06/21 23:44 Docosanol (Abreva) 1 gm FIVE TIMES A DAY TP 01/29/21 20:00 04/29/21 19:59 02/03/21 07:28 Fentanyl Citrate 250 ml @ 1 mls/hr Q24H IV 02/02/21 01:45 02/04/21 01:44 02/02/21 18:03 Insulin Aspart (NovoLOG) EVERY 6 HOURS SUBQ 01/09/21 12:00 04/04/21 16:29 02/03/21 05:56 Lansoprazole (Prevacid) 30 mg DAILY GT 01/24/21 09:00 02/15/21 08:59 02/02/21 08:40 Midodrine (Pro-Amatine) 10 mg Q8HR ORAL 01/20/21 14:00 04/20/21 13:59 02/03/21 05:56 Potassium Chloride (K-Dur) 20 meq TWICE A DAY NG 01/20/21 13:00 04/20/21 12:59 02/02/21 17:40 Quetiapine Fumarate (SEROqueL) 100 mg Q12HR ORAL 01/20/21 15:00 03/06/21 14:59 02/02/21 20:31 Valproic Acid (Depakene) 500 mg Q12HR GT 01/22/21 21:00 02/21/21 20:59 02/02/21 20:31 Vancomycin HCl 250 ml @ 166.667 mls/hr Q8H IVPB 02/01/21 09:00 02/06/21 08:59 02/03/21 00:38 [facility] 1 ea DAILY PRN MISC Per rx protocol 01/25/21 08:15 02/24/21 08:14 Warfarin Sodium (Coumadin per pharmacy) 1 ea DAILY PRN MISC Per rx protocol 02/02/21 11:45 03/04/21 11:44 Assessment/Plan Assessment/Plan Pulmonary CCM Progress Note Seen on 02/02/2021 HPI Patient is a 60 man with prior h/o COPD, CPS/bipolar DO, 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, DM2, HTN and hydrocephalus Physical Exam Deferred Covid19 Vital Signs noted Laboratory Tests noted Imaging noted Height (Feet): 5 Height (Inches): 5.00 Weight (Pounds): 233 Medications Medications noted Assessment/Plan Problem List: (1) Pneumonia due to COVID-19 virus ICD Codes: U07.1 - COVID-19; J12.82 - Pneumonia due to coronavirus disease 2018 SNOMED: 548934451679138067 (2) Acute hypercapnic respiratory failure ICD Codes: J96.02 - Acute respiratory failure with hypercapnia SNOMED: 433553701 (3) Respiratory failure with hypoxia ICD Codes: J96.91 - Respiratory failure, unspecified with hypoxia SNOMED: 12698088264613520 Qualifiers: Qualified Codes: J96.01 - Acute respiratory failure with hypoxia (4) COPD (chronic obstructive pulmonary disease) ICD Codes: J44.9 - Chronic obstructive pulmonary disease, unspecified SNOMED: 57107303 (5) History of deep venous thrombosis or pulmonary embolus SNOMED: 629468415 (6) Obesity ICD Codes: E66.9 - Obesity, unspecified SNOMED: 499763105, 810392763 (7) Essential hypertension ICD Codes: I10 - Essential (primary) hypertension SNOMED: 97982258 (8) Diabetes mellitus type 2 in obese ICD Codes: E11.69 - Type 2 diabetes mellitus with other specified complication; E66.9 - Obesity, unspecified SNOMED: 66781072 (9) History of hydrocephalus ICD Codes: Z86.69 - Personal history of other diseases of the nervous system and sense organs SNOMED: 245699813 (10) Schizophrenia ICD Codes: F20.9 - Schizophrenia, unspecified SNOMED: 12167282 (11) Bipolar 1 disorder ICD Codes: F31.9 - Bipolar disorder, unspecified SNOMED: 258013864 (12) Anticoagulant long-term use 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
[2021-02-03 08:05] LABS: BASOPHILS % (AUTO) 1.4 % (0.0-2.0); EOSINOPHILS % (AUTO) 2.7 % (0.0-3.0); HEMATOCRIT 33.3 % (42.0-52.0); HEMOGLOBIN 10.5 G/DL (14.2-18.0); LYMPHOCYTES % (AUTO) 24.9 % (20.0-45.0); MEAN CORPUSCULAR VOLUME 92 FL (80-99); MONOCYTES % (AUTO) 9.1 % (1.0-10.0); PLATELET COUNT 320 K/UL (150-450); RED BLOOD COUNT 3.64 M/UL (4.70-6.10); RED CELL DISTRIBUTION WIDTH 16.8 % (11.6-14.8); WHITE BLOOD COUNT 9.2 K/UL (4.8-10.8)
[2021-02-03 08:23] LABS: ANION GAP 9 mmol/L (5-15); BLOOD UREA NITROGEN 8 mg/dL (7-18); CALCIUM 9.1 MG/DL (8.5-10.1); CARBON DIOXIDE 27 MMOL/L (21-32); CHLORIDE 102 MMOL/L (98-107); CREATININE 0.6 MG/DL (0.55-1.30); POTASSIUM 3.8 MMOL/L (3.5-5.1); SODIUM 138 MMOL/L (136-145)
[2021-02-03 08:40] LABS: INR 1.1 (0.9-1.1)
[2021-02-03] MEDS: Valproic Acid 250mg/5ml Liquid GT SCH ×2 (08:41→21:08)
--- NOTE | 2021-02-03 11:04 | Surgery Progress Note ---
Surgery Progress Note Subjective Additional Comments hold coumadin plan trach this week Objective Last 24 Hour Vital Signs Date Time Temp Pulse Resp B/P (MAP) Pulse Ox O2 Delivery O2 Flow Rate FiO2 02/03/21 10:30 107 23 40 02/03/21 10:00 22 102/65 Endotracheal Tube 45 02/03/21 10:00 82 22 102/65 (77) 90 02/03/21 09:00 98.5 83 22 116/77 (90) 93 02/03/21 09:00 22 116/77 Endotracheal Tube 45 02/03/21 08:50 82 22 40 02/03/21 08:00 Mechanical Ventilator 02/03/21 08:00 40 02/03/21 08:00 86 22 98/70 (79) 92 02/03/21 08:00 22 98/70 Endotracheal Tube 45 02/03/21 08:00 91 02/03/21 07:08 89 22 100 Mechanical Ventilator 40 90 22 40 02/03/21 07:00 22 106/67 Endotracheal Tube 45 02/03/21 07:00 95 22 106/67 (80) 92 02/03/21 06:30 77 22 102/72 (82) 93 02/03/21 06:15 76 22 103/71 (82) 92 02/03/21 06:00 76 22 113/76 (88) 92 02/03/21 05:45 80 22 112/75 (87) 90 02/03/21 05:30 80 22 102/71 (81) 90 02/03/21 05:15 77 19 104/67 (79) 89 02/03/21 05:00 86 21 103/68 (80) 90 02/03/21 04:45 79 18 93/60 (71) 89 02/03/21 04:30 76 4 94/63 (73) 88 02/03/21 04:15 79 22 95/57 (70) 89 02/03/21 04:00 Mechanical Ventilator 02/03/21 04:00 40 02/03/21 04:00 88 22 98/66 (77) 91 02/03/21 04:00 71 02/03/21 03:56 89 25 99/63 (75) 92 02/03/21 03:56 89 25 99/63 (75) 92 02/03/21 03:45 86 19 91 02/03/21 03:45 86 19 91 02/03/21 03:30 86 21 106/61 (76) 90 02/03/21 03:30 86 21 106/61 (76) 90 02/03/21 03:15 83 22 102/66 (78) 88 02/03/21 03:15 83 22 102/66 (78) 88 02/03/21 03:00 88 21 115/81 (92) 95 02/03/21 03:00 88 21 115/81 (92) 95 02/03/21 02:57 86 22 97 Mechanical Ventilator 40 94 22 40 02/03/21 02:45 89 22 109/68 (82) 91 02/03/21 02:45 89 22 109/68 (82) 91 02/03/21 02:30 80 22 99/65 (76) 91 02/03/21 02:30 80 22 99/65 (76) 91 02/03/21 02:15 79 22 108/68 (81) 91 02/03/21 02:15 79 22 108/68 (81) 91 02/03/21 02:00 79 22 102/72 (82) 91 02/03/21 02:00 79 22 102/72 (82) 91 02/03/21 01:45 79 22 104/67 (79) 91 02/03/21 01:45 79 22 104/67 (79) 91 02/03/21 01:30 79 22 107/69 (82) 91 02/03/21 01:30 79 22 107/69 (82) 91 02/03/21 01:15 83 22 103/66 (78) 91 02/03/21 01:15 83 22 103/66 (78) 91 02/03/21 01:00 80 22 104/72 (83) 91 02/03/21 01:00 80 22 104/72 (83) 91 02/03/21 00:45 87 22 100/65 (77) 91 02/03/21 00:45 87 22 100/65 (77) 91 02/03/21 00:30 82 22 100/64 (76) 91 02/03/21 00:30 82 22 100/64 (76) 91 02/03/21 00:15 81 22 104/70 (81) 91 02/03/21 00:15 81 22 104/70 (81) 91 02/03/21 00:00 77 02/03/21 00:00 82 22 105/67 (80) 91 02/03/21 00:00 Mechanical Ventilator 02/03/21 00:00 82 22 105/67 (80) 91 02/03/21 00:00 40 02/02/21 23:45 87 22 125/84 (98) 92 02/02/21 23:30 78 22 104/72 (83) 93 02/02/21 23:30 84 22 40 02/02/21 23:15 85 22 108/72 (84) 93 02/02/21 23:00 81 22 104/68 (80) 94 02/02/21 22:45 75 22 103/72 (82) 94 02/02/21 22:30 77 22 98/67 (77) 92 02/02/21 22:15 77 22 97/63 (74) 92 02/02/21 22:00 22 98/65 Mechanical Ventilator 40 02/02/21 22:00 79 22 98/65 (76) 90 02/02/21 21:00 94 22 100/61 (74) 92 02/02/21 21:00 22 100/61 Mechanical Ventilator 40 02/02/21 20:00 40 02/02/21 20:00 74 02/02/21 20:00 22 104/69 Mechanical Ventilator 40 02/02/21 20:00 99.1 77 22 104/69 (81) 92 02/02/21 20:00 Mechanical Ventilator 02/02/21 19:30 92 22 40 02/02/21 19:00 22 115/78 Mechanical Ventilator 40 02/02/21 19:00 74 22 115/78 (90) 90 02/02/21 18:58 75 22 113/75 (88) 90 02/02/21 18:03 22 118/84 Endotracheal Tube 65.0 45 02/02/21 18:00 76 22 118/83 (95) 94 02/02/21 18:00 22 118/83 Endotracheal Tube 45 02/02/21 17:00 79 22 118/84 (95) 96 02/02/21 17:00 22 118/84 Endotracheal Tube 45 02/02/21 16:46 77 22 40 02/02/21 16:00 45 02/02/21 16:00 79 02/02/21 16:00 22 98/66 Endotracheal Tube 45 02/02/21 16:00 99.3 79 22 98/66 (77) 95 02/02/21 16:00 Mechanical Ventilator 02/02/21 15:00 22 98/71 Endotracheal Tube 45 02/02/21 15:00 78 22 98/71 (80) 97 02/02/21 14:32 86 27 40 02/02/21 14:00 22 92/49 Endotracheal Tube 45 02/02/21 14:00 96 22 92/49 (63) 94 02/02/21 13:25 98.7 02/02/21 13:02 135 26 93 Mechanical Ventilator 40 02/02/21 13:00 24 99/50 Endotracheal Tube 45 02/02/21 13:00 132 24 99/50 (66) 91 02/02/21 12:57 143 26 40 02/02/21 12:45 27 107/68 Endotracheal Tube 45 02/02/21 12:45 138 27 107/68 (81) 92 02/02/21 12:30 134 29 129/76 (93) 93 02/02/21 12:30 29 129/76 Endotracheal Tube 45 02/02/21 12:15 141 26 128/74 (92) 99 02/02/21 12:15 26 128/74 Endotracheal Tube 45 02/02/21 12:00 135 02/02/21 12:00 98.7 131 28 126/71 (89) 94 02/02/21 12:00 28 126/71 Endotracheal Tube 45 02/02/21 12:00 45 02/02/21 12:00 Mechanical Ventilator 02/02/21 11:45 128 23 121/82 (95) 96 02/02/21 11:45 23 121/82 Endotracheal Tube 45 02/02/21 11:30 26 127/82 Endotracheal Tube 45 02/02/21 11:30 144 26 127/82 (97) 97 02/02/21 11:28 144 28 40 02/02/21 11:15 131 28 139/94 (109) 97 02/02/21 11:15 28 139/94 Endotracheal Tube 45 I&O Intake and Output 02/02/21 02/03/21 19:00 07:00 Intake Total 864.50 ml 890 ml Output Total 1315 ml 670 ml Balance -450.50 ml 220 ml Free Water 200 ml IV Total 184.50 ml 60 ml Tube Feeding 480 ml 720 ml Other 110 ml Output Urine Total 1315 ml 670 ml # Bowel Movements 1 Dressing: saturated Cardiovascular: RSR Respiratory: decreased breath sounds Abdomen: soft, non-tender, present bowel sounds Extremities: no edema, no tenderness, no cyanosis Laboratory Tests Test 02/03/21 05:40 White Blood Count 9.2 K/UL (4.8-10.8) Red Blood Count 3.64 M/UL (4.70-6.10) L Hemoglobin 10.5 G/DL (14.2-18.0) L Hematocrit 33.3 % (42.0-52.0) L Mean Corpuscular Volume 92 FL (80-99) Mean Corpuscular Hemoglobin 28.9 PG (27.0-31.0) Mean Corpuscular Hemoglobin Concent 31.5 G/DL (32.0-36.0) L Red Cell Distribution Width 16.8 % (11.6-14.8) H Platelet Count 320 K/UL (150-450) Mean Platelet Volume 7.9 FL (6.5-10.1) Neutrophils (%) (Auto) 62.0 % (45.0-75.0) Lymphocytes (%) (Auto) 24.9 % (20.0-45.0) Monocytes (%) (Auto) 9.1 % (1.0-10.0) Eosinophils (%) (Auto) 2.7 % (0.0-3.0) Basophils (%) (Auto) 1.4 % (0.0-2.0) Prothrombin Time 11.7 SEC (9.30-11.50) H Prothromb Time International Ratio 1.1 (0.9-1.1) Sodium Level 138 MMOL/L (136-145) Potassium Level 3.8 MMOL/L (3.5-5.1) Chloride Level 102 MMOL/L (98-107) Carbon Dioxide Level 27 MMOL/L (21-32) Anion Gap 9 mmol/L (5-15) Blood Urea Nitrogen 8 mg/dL (7-18) Creatinine 0.6 MG/DL (0.55-1.30) Estimat Glomerular Filtration Rate > 60 mL/min (>60) Glucose Level 188 MG/DL (74-106) H Calcium Level 9.1 MG/DL (8.5-10.1) Plan Problems: (1) COPD (chronic obstructive pulmonary disease) (2) Essential hypertension (3) Schizophrenia (4) Obesity (5) Diabetes mellitus type 2 in obese (6) History of hydrocephalus (7) Anticoagulant long-term use (8) Bipolar 1 disorder (9) History of deep venous thrombosis or pulmonary embolus (10) Acute hypercapnic respiratory failure (11) Sepsis Assessment & Plan: 60-year-old male Covid positive respiratory insufficiency and severe decline being prone intubated on vent support labs noted septic ill- appearing has been developing wound around the face from ET tube.Receiv ed report from RT pt is being proned and was observed to have developed a blood blister under vent tape on L cheek and L earlobe. Skin assessed and pt was observed to have a blood blister that is 50% de-capped,50% intact. Intact Blood Blister noted to L earlobe. Skin Barrier applied to affected areas. Optifoam Thin foam placed between vent anchor and pt's skin. Optifoam thin placed to R cheek under Vent tape, on Bridge of nose and both earlobes. Given patient's critical status current care plan and findings nutritional optimization is strongly encouraged Covid nutrition plan initiated. All Covid precautions are being taken. Imaging reviewed. Will follow with care plan. Thank you [facility] participation care Tx.Plan: Maintain Optifoam Thin foam to R and L cheeks,Bridge of Nose and Both Ears . Change every 7 days and prn.( May request Optifoam Thin from RT dept). APM/PEPE Mattress overlay DAILY ESTIMATED NEEDS: Needs based on Critical care, pulmonary, obese 73.7kg abw 22-28 kcals/kg 2166-5856 total kcals 1.2-2 g protein/kg 88-147 g total protein 25-30 mL/kg 9870-3543 total fluid mLs NUTRITION DIAGNOSIS: Altered nutrition related lab values r/t steroidal meds, clinical status as evidenced by febrile on adm (102.5), elevated BG (270 287) on solumedrol, elevated lipid panel (Triglycerides 333, Chol 370, LDL 150). CURRENT TF:Vital @30ml/hr, now Nepro @30 ENTERAL NUTRITION RECOMMENDATIONS: NEPRO @30ml/hr while supine to provide x8 hrs feeds: 360ml, 648 kcal, 29g pro, 262ml free H2O - Feed at rate best tolerated, currently not meeting est needs d/t proning and aspiration risk w/ supine feeds limited to 8hrs/day. - W/ reduced aspiration risk rec feedings to total Volume of 900ml/day of Nepro as medically able. - Monitor tolerance, position/HOB >30 degrees, hemodynamic stability and ability to increase to meet est kcal and pro needs. - With increase pressor support, rec trophic feeds of 10ml/hr for gut integrity. - When tolerating TF at goal add Prosource BID to better meet est pro needs. ADDITIONAL RECOMMENDATIONS: 1) Now intubated, TF recs above when off proning (8hrs feeds) 2) Obtain calibrated bedscale wts 3) HgA1C/ elevated BG Need for niss while on D5 4) Lytes daily; replete as needed 5) Monitor triglycerides, TF tolerance, hemodynamic stability. (12) Respiratory failure with hypoxia Assessment & Plan: cont weaning vent wean pressors not ready for trach off pressors improving HD stable plan trach soon as unable to extubate (13) Pneumonia due to COVID-19 virus (14) Hyperkalemia (15) DMII (diabetes mellitus, type 2) Ki Strong Feb 03, 2021 11:04
[2021-02-03] MEDS: fentaNYL 2500mcg/NS 250ml 250 ML IV SCH (11:10)
[2021-02-03] MEDS: Albuterol/Ipratropium 3ml neb HHN SCH ×2 (13:06→19:20)
[2021-02-03] MEDS: Acetylcysteine 20% Soln 4ml HHN SCH ×2 (13:06→19:20)
--- NOTE | 2021-02-03 14:41 | Internal Med Progress Note ---
Subjective Date of Service: Feb 03, 2021 Physician Name Vickey Brown Attending Physician Geovanny Bradley MD Current Medications Medications (Trade) Dose Ordered Sig/Johnny Route PRN Reason Start Time Stop Time Status Last Admin Dose Admin Acetaminophen (Tylenol) 650 mg Q6H PRN NG Temp >100.5 01/09/21 09:15 02/08/21 09:14 01/26/21 02:05 Acetaminophen (Tylenol) 650 mg Q6H PRN NG Mild Pain (Pain Scale 1-3) 01/09/21 09:15 02/08/21 09:14 02/03/21 04:10 Acetylcysteine (Mucomyst) 200 mg Q6HRT N 02/03/21 13:00 05/04/21 12:59 02/03/21 13:06 Albuterol/ Ipratropium (Albuterol/ Ipratropium) 3 ml Q6HRT HHN 02/03/21 13:00 02/08/21 12:59 02/03/21 13:06 Chlorhexidine Gluconate (Myranda-Hex 2%) 1 applic DAILY@2000 TOPIC 01/29/21 20:00 04/29/21 19:59 02/02/21 19:34 Dextrose (Dextrose 50%) 25 ml Q30M PRN IV Hypoglycemia 01/06/21 23:45 04/06/21 23:44 Dextrose (Dextrose 50%) 50 ml Q30M PRN IV Hypoglycemia 01/06/21 23:45 04/06/21 23:44 Docosanol (Abreva) 1 gm FIVE TIMES A DAY TP 01/29/21 20:00 04/29/21 19:59 02/03/21 13:24 Fentanyl Citrate 250 ml @ 1 mls/hr Q24H IV 02/02/21 01:45 02/04/21 01:44 02/03/21 11:10 Insulin Aspart (NovoLOG) EVERY 6 HOURS SUBQ 01/09/21 12:00 04/04/21 16:29 02/03/21 12:15 Lansoprazole (Prevacid) 30 mg DAILY GT 01/24/21 09:00 02/15/21 08:59 02/03/21 08:41 Midodrine (Pro-Amatine) 10 mg Q8HR ORAL 01/20/21 14:00 04/20/21 13:59 02/03/21 05:56 Potassium Chloride (K-Dur) 20 meq TWICE A DAY NG 01/20/21 13:00 04/20/21 12:59 02/03/21 08:42 Quetiapine Fumarate (SEROqueL) 100 mg Q12HR ORAL 01/20/21 15:00 03/06/21 14:59 02/03/21 08:43 Valproic Acid (Depakene) 500 mg Q12HR GT 01/22/21 21:00 02/21/21 20:59 02/03/21 08:41 Vancomycin HCl 250 ml @ 166.667 mls/hr Q8H IVPB 02/01/21 09:00 02/06/21 08:59 02/03/21 08:42 Vancomycin HCl ([facility] to dose) 1 ea DAILY PRN MISC Per rx protocol 01/25/21 08:15 02/24/21 08:14 Warfarin Sodium (Coumadin per pharmacy) 1 ea DAILY PRN MISC Per rx protocol 02/02/21 11:45 03/04/21 11:44 Hold Allergies: Coded Allergies: No Known Allergies (Unverified , 01/02/21) ROS Limited/Unobtainable: Yes Subjective 60 YO M admitted with shortness of breath. Now respiratory failure. Cover for Int Med-DR Bradley. ICU. Intubated and sedated Objective Last Vital Signs Date Time Temp Pulse Resp B/P (MAP) Pulse Ox O2 Delivery O2 Flow Rate FiO2 02/03/21 14:00 20 103/74 Endotracheal Tube 45 02/03/21 14:00 85 92 02/03/21 13:00 98.9 02/02/21 18:03 65.0 Laboratory Tests Test 02/03/21 05:40 White Blood Count 9.2 K/UL (4.8-10.8) Red Blood Count 3.64 M/UL (4.70-6.10) L Hemoglobin 10.5 G/DL (14.2-18.0) L Hematocrit 33.3 % (42.0-52.0) L Mean Corpuscular Volume 92 FL (80-99) Mean Corpuscular Hemoglobin 28.9 PG (27.0-31.0) Mean Corpuscular Hemoglobin Concent 31.5 G/DL (32.0-36.0) L Red Cell Distribution Width 16.8 % (11.6-14.8) H Platelet Count 320 K/UL (150-450) Mean Platelet Volume 7.9 FL (6.5-10.1) Neutrophils (%) (Auto) 62.0 % (45.0-75.0) Lymphocytes (%) (Auto) 24.9 % (20.0-45.0) Monocytes (%) (Auto) 9.1 % (1.0-10.0) Eosinophils (%) (Auto) 2.7 % (0.0-3.0) Basophils (%) (Auto) 1.4 % (0.0-2.0) Prothrombin Time 11.7 SEC (9.30-11.50) H Prothromb Time International Ratio 1.1 (0.9-1.1) Sodium Level 138 MMOL/L (136-145) Potassium Level 3.8 MMOL/L (3.5-5.1) Chloride Level 102 MMOL/L (98-107) Carbon Dioxide Level 27 MMOL/L (21-32) Anion Gap 9 mmol/L (5-15) Blood Urea Nitrogen 8 mg/dL (7-18) Creatinine 0.6 MG/DL (0.55-1.30) Estimat Glomerular Filtration Rate > 60 mL/min (>60) Glucose Level 188 MG/DL (74-106) H Calcium Level 9.1 MG/DL (8.5-10.1) Microbiology Date/Time Source Procedure Growth Status 01/31/21 16:05 Blood Blood Culture - Preliminary NO GROWTH AFTER 48 HOURS Resulted 01/31/21 15:50 Blood Blood Culture - Preliminary NO GROWTH AFTER 48 HOURS Resulted Intake and Output 02/02/21 02/03/21 19:00 07:00 Intake Total 864.50 ml 890 ml Output Total 1315 ml 670 ml Balance -450.50 ml 220 ml Free Water 200 ml IV Total 184.50 ml 60 ml Tube Feeding 480 ml 720 ml Other 110 ml Output Urine Total 1315 ml 670 ml # Bowel Movements 1 Objective Objective General: awake, responsive , confused. HEENT: NCAT, sclera anicteric, PERRL, EOMI. Neck: Supple, no significant jugular venous distention, Lungs: mech vent; decreased air at the bases, occasional crackles, no Wheeze. Heart: Regular rate and rhythm, normal S1/S2, no murmurs Abdomen: soft, nontender, nondistended. Normoactive bowel sound, obesity. / Rectal: Refused and deferred. Extremities: Left LE: No Cyanosis , clubbing or edema. Right LE AKA. Neuro: A&O x 2, Able to move all extremities Skin: warm, no rashes or lesions. Assessment/Plan Assessment/Plan Assessment/Plan Assessment/Plan (1) Pneumonia due to COVID-19 virus ICD Codes: U07.1 - COVID-19; J12.82 - Pneumonia due to coronavirus disease 2019 SNOMED: 513427128212786626 (2) Acute hypercapnic respiratory failure ICD Codes: J96.02 - Acute respiratory failure with hypercapnia SNOMED: 009062679 (3) Respiratory failure with hypoxia ICD Codes: J96.91 - Respiratory failure, unspecified with hypoxia SNOMED: 73363105295847504 Qualifiers: Qualified Codes: J96.01 - Acute respiratory failure with hypoxia (4) COPD (chronic obstructive pulmonary disease) ICD Codes: J44.9 - Chronic obstructive pulmonary disease, unspecified SNOMED: 36768370 (5) History of deep venous thrombosis or pulmonary embolus SNOMED: 155469591 (6) Obesity ICD Codes: E66.9 - Obesity, unspecified SNOMED: 682944198, 745192753 (7) Essential hypertension ICD Codes: I10 - Essential (primary) hypertension SNOMED: 64819853 (8) Diabetes mellitus type 2 in obese ICD Codes: E11.69 - Type 2 diabetes mellitus with other specified complication; E66.9 - Obesity, unspecified SNOMED: 55829909 (9) History of hydrocephalus ICD Codes: Z86.69 - Personal history of other diseases of the nervous system and sense organs SNOMED: 180425854 (10) Schizophrenia ICD Codes: F20.9 - Schizophrenia, unspecified SNOMED: 70927402 (11) Bipolar 1 disorder ICD Codes: F31.9 - Bipolar disorder, unspecified SNOMED: 774008794 (12) Anticoagulant long-term use ICD Codes: Z79.01 - FPC (current) use of anticoagulants SNOMED: 169009961 13. Sepsis=gram pos cocci 14. thrush Assessment/Plan: Optimize pulmonary hygiene/mobilize as tolerated Non Rebreather mask>BIPAP>intubated S/P Remdesivir IV S/P Solu-Medrol 40 mg IV twice a day. Abx = vanco F/U Cx's Monitor volumes and renal function DVT Px: Coumadin DC IV fluid Start diet Monitor blood glucose level closely. On levophed, fentanyl and propofol drips Pulmonary=Dr Luis ID=Dr Gomez Psych consult=Dr Gallegos; continue seroquel continue nystatin await tracheostomy Optimize pulmonary hygiene/mobilize as tolerated Completed Remdesivir IV Abx: Vanco IV and Zosyn IV F/U Cx's Monitor volumes and renal function DVT Px: Coumadin Monitor blood glucose level closely. FULL Code Tolerated Tube feeding @ 60 cc/hr. Vickey Brown MD Feb 03, 2021 14:41
--- NOTE | 2021-02-03 16:16 | Nephrology Progress Note ---
Assessment/Plan Problem List: (1) Hyperkalemia (2) Pneumonia due to COVID-19 virus (3) Respiratory failure with hypoxia (4) Obesity (5) Schizophrenia (6) DMII (diabetes mellitus, type 2) Assessment Hyperkalemia Stable renal parameters Hyperglycemia Covid pneumonia due to COVID-19 virus Acute respiratory failure with hypoxia requiring mechanical ventilation History of COPD History of DVT, pulmonary emboli Obese Hypertension History of diabetes Psych condition, schizophrenia, bipolar disease Plan February 03: Remains intubated on ventilator. FiO2 40%. Discussed with RN. Patient is planned to have tracheostomy. Labs reviewed. Renal parameters stable. February 02: Status quo. Full code. Intubated on ventilator. FiO2 40%. Renal parameters stable. February 01: Status quo. FiO2 40%. Full code. Labs reviewed. Renal parameters stable. January 31: Status quo. FiO2 45%. Full code. Renal parameters stable. Abnormal electrolytes addressed. January 30: Status quo. Remains full code. Intubated. On ventilator. Low magnesium addressed. Continue per consultants. January 29: Status quo. Labs reviewed. Low magnesium addressed. Discussed with JOHAN Ratliff. Continue per consultants. January 28: Status quo. Labs and medication list reviewed. K-Phos supplement ordered. Continue per current treatment plan. January 27: Patient remains full code. Intubated on ventilator. FiO2 50%. Labs reviewed. Renal parameters stable. Medication list reviewed. January 26: Full code. Intubated. On ventilator. FiO2 65%. No CHEM panel drawn today. Continue per consultants. January 25: Status unchanged. Blood pressure low. Remains full code on ventilator. Continue per consultants. Medication list reviewed. INR is 3.8 today. January 24: Status quo. Intubated on ventilator and full code. Labs reviewed. Medication list reviewed. Continue per consultants. January 23: Patient on prone position. IntubatedFiO2 65%. Renal parameters stable. Continue per consultants. Date hospitalization. Possible trach?. January 22: FiO2 50%. Prone position. Labs reviewed. Stable from renal sta ndpoint of view. Continue per consultants. January 21: Full code. Intubated on ventilator. FiO2 40%. Labs reviewed. Renal parameters stable. Continue per consultants. January 20: Status unchanged. Full code. On ventilator. Chest x-ray reviewed. IV fluid discontinued. Potassium supplement given. 1 dose of Lasix given. Albumin bolus given. Midodrine started. Will monitor renal parameters and electrolytes. Discussed with JOHAN Mohamud. January 19: Labs reviewed. Renal parameters stable. Remains full code intubated on ventilator. FiO2 50%. Continue per consultants. January 18: Full code. Intubated. On ventilator. FiO2 down to 35%. No labs drawn today. Continue to monitor renal parameters and electrolytes. January 17: Full code. Intubated on ventilator. FiO2 remains at 60%. Labs reviewed. Renal parameters stable. January 16: Full code. Intubated. Labs reviewed. Renal parameters stable. FiO2 60%. Continue per consultants. January 15: Patient remains intubated and full code. Labs reviewed. Stable renal parameters. January 14: Patient full code. Intubated on ventilator. On prone position until 5 PM. Labs reviewed. Stable from renal standpoint of view. January 13: Labs reviewed. Renal parameters stable. Continue per consultants. Patient remain full code and intubated on ventilator. January 12: Labs reviewed. Renal parameters stable. Patient remains full code. Remains intubated on ventilator and on prone position. Continue per consultants. January 11: Labs reviewed. Renal parameters stable. Continue per consultants. January 10: Labs reviewed. Renal parameters stable. Continue per consultants. Change IV to half-normal saline Kayexalate via NG tube for high potassium Monitor electrolytes and renal parameters Per orders, per consultants Subjective ROS Limited/Unobtainable: Yes Objective Objective Last 24 Hour Vital Signs Date Time Temp Pulse Resp B/P (MAP) Pulse Ox O2 Delivery O2 Flow Rate FiO2 02/03/21 16:00 Mechanical Ventilator 02/03/21 16:00 102 02/03/21 16:00 40 02/03/21 16:00 102 22 117/94 (102) 90 02/03/21 15:07 86 22 40 02/03/21 15:00 20 103/74 Endotracheal Tube 45 02/03/21 15:00 100 20 103/74 (84) 92 02/03/21 14:00 20 103/74 Endotracheal Tube 45 02/03/21 14:00 85 20 103/74 (84) 92 02/03/21 13:20 84 22 97 Mechanical Ventilator 40 91 22 40 02/03/21 13:00 98.9 71 22 135/85 (102) 97 02/03/21 13:00 22 135/85 Endotracheal Tube 45 02/03/21 12:00 87 22 113/76 (88) 93 02/03/21 12:00 Mechanical Ventilator 02/03/21 12:00 22 113/76 Endotracheal Tube 45 02/03/21 12:00 94 02/03/21 12:00 40 02/03/21 11:10 22 114/72 Endotracheal Tube 45 02/03/21 11:00 93 22 114/72 (86) 92 02/03/21 10:30 107 23 40 02/03/21 10:00 22 102/65 Endotracheal Tube 45 02/03/21 10:00 82 22 102/65 (77) 90 02/03/21 09:00 98.5 83 22 116/77 (90) 93 02/03/21 09:00 22 116/77 Endotracheal Tube 45 02/03/21 08:50 82 22 40 02/03/21 08:00 Mechanical Ventilator 02/03/21 08:00 40 02/03/21 08:00 86 22 98/70 (79) 92 02/03/21 08:00 22 98/70 Endotracheal Tube 45 02/03/21 08:00 91 02/03/21 07:08 89 22 100 Mechanical Ventilator 40 90 22 40 02/03/21 07:00 22 106/67 Endotracheal Tube 45 02/03/21 07:00 95 22 106/67 (80) 92 02/03/21 06:30 77 22 102/72 (82) 93 02/03/21 06:15 76 22 103/71 (82) 92 02/03/21 06:00 76 22 113/76 (88) 92 02/03/21 05:45 80 22 112/75 (87) 90 02/03/21 05:30 80 22 102/71 (81) 90 02/03/21 05:15 77 19 104/67 (79) 89 02/03/21 05:00 86 21 103/68 (80) 90 02/03/21 04:45 79 18 93/60 (71) 89 02/03/21 04:30 76 4 94/63 (73) 88 02/03/21 04:15 79 22 95/57 (70) 89 02/03/21 04:00 Mechanical Ventilator 02/03/21 04:00 40 02/03/21 04:00 88 22 98/66 (77) 91 02/03/21 04:00 71 02/03/21 03:56 89 25 99/63 (75) 92 02/03/21 03:56 89 25 99/63 (75) 92 02/03/21 03:45 86 19 91 02/03/21 03:45 86 19 91 02/03/21 03:30 86 21 106/61 (76) 90 02/03/21 03:30 86 21 106/61 (76) 90 02/03/21 03:15 83 22 102/66 (78) 88 02/03/21 03:15 83 22 102/66 (78) 88 02/03/21 03:00 88 21 115/81 (92) 95 02/03/21 03:00 88 21 115/81 (92) 95 02/03/21 02:57 86 22 97 Mechanical Ventilator 40 94 22 40 02/03/21 02:45 89 22 109/68 (82) 91 02/03/21 02:45 89 22 109/68 (82) 91 02/03/21 02:30 80 22 99/65 (76) 91 02/03/21 02:30 80 22 99/65 (76) 91 02/03/21 02:15 79 22 108/68 (81) 91 02/03/21 02:15 79 22 108/68 (81) 91 02/03/21 02:00 79 22 102/72 (82) 91 02/03/21 02:00 79 22 102/72 (82) 91 02/03/21 01:45 79 22 104/67 (79) 91 02/03/21 01:45 79 22 104/67 (79) 91 02/03/21 01:30 79 22 107/69 (82) 91 02/03/21 01:30 79 22 107/69 (82) 91 02/03/21 01:15 83 22 103/66 (78) 91 02/03/21 01:15 83 22 103/66 (78) 91 02/03/21 01:00 80 22 104/72 (83) 91 02/03/21 01:00 80 22 104/72 (83) 91 02/03/21 00:45 87 22 100/65 (77) 91 02/03/21 00:45 87 22 100/65 (77) 91 02/03/21 00:30 82 22 100/64 (76) 91 02/03/21 00:30 82 22 100/64 (76) 91 02/03/21 00:15 81 22 104/70 (81) 91 02/03/21 00:15 81 22 104/70 (81) 91 02/03/21 00:00 77 02/03/21 00:00 82 22 105/67 (80) 91 02/03/21 00:00 Mechanical Ventilator 02/03/21 00:00 82 22 105/67 (80) 91 02/03/21 00:00 40 02/02/21 23:45 87 22 125/84 (98) 92 02/02/21 23:30 78 22 104/72 (83) 93 02/02/21 23:30 84 22 40 02/02/21 23:15 85 22 108/72 (84) 93 02/02/21 23:00 81 22 104/68 (80) 94 02/02/21 22:45 75 22 103/72 (82) 94 02/02/21 22:30 77 22 98/67 (77) 92 02/02/21 22:15 77 22 97/63 (74) 92 02/02/21 22:00 22 98/65 Mechanical Ventilator 40 02/02/21 22:00 79 22 98/65 (76) 90 02/02/21 21:00 94 22 100/61 (74) 92 02/02/21 21:00 22 100/61 Mechanical Ventilator 40 02/02/21 20:00 40 02/02/21 20:00 74 02/02/21 20:00 22 104/69 Mechanical Ventilator 40 02/02/21 20:00 99.1 77 22 104/69 (81) 92 02/02/21 20:00 Mechanical Ventilator 02/02/21 19:30 92 22 40 02/02/21 19:00 22 115/78 Mechanical Ventilator 40 02/02/21 19:00 74 22 115/78 (90) 90 02/02/21 18:58 75 22 113/75 (88) 90 02/02/21 18:03 22 118/84 Endotracheal Tube 65.0 45 02/02/21 18:00 76 22 118/83 (95) 94 02/02/21 18:00 22 118/83 Endotracheal Tube 45 02/02/21 17:00 79 22 118/84 (95) 96 02/02/21 17:00 22 118/84 Endotracheal Tube 45 02/02/21 16:46 77 22 40 Intake and Output 02/02/21 02/03/21 19:00 07:00 Intake Total 864.50 ml 890 ml Output Total 1315 ml 670 ml Balance -450.50 ml 220 ml Free Water 200 ml IV Total 184.50 ml 60 ml Tube Feeding 480 ml 720 ml Other 110 ml Output Urine Total 1315 ml 670 ml # Bowel Movements 1 Current Medications Medications (Trade) Dose Ordered Sig/Johnny Route PRN Reason Start Time Stop Time Status Last Admin Dose Admin Acetaminophen (Tylenol) 650 mg Q6H PRN NG Temp >100.5 01/09/21 09:15 02/08/21 09:14 01/26/21 02:05 Acetaminophen (Tylenol) 650 mg Q6H PRN NG Mild Pain (Pain Scale 1-3) 01/09/21 09:15 02/08/21 09:14 02/03/21 04:10 Acetylcysteine (Mucomyst) 200 mg Q6HRT N 02/03/21 13:00 05/04/21 12:59 02/03/21 13:06 Albuterol/ Ipratropium (Albuterol/ Ipratropium) 3 ml Q6HRT N 02/03/21 13:00 02/08/21 12:59 02/03/21 13:06 Chlorhexidine Gluconate (Myranda-Hex 2%) 1 applic DAILY@2000 TOPIC 01/29/21 20:00 04/29/21 19:59 02/02/21 19:34 Dextrose (Dextrose 50%) 25 ml Q30M PRN IV Hypoglycemia 01/06/21 23:45 04/06/21 23:44 Dextrose (Dextrose 50%) 50 ml Q30M PRN IV Hypoglycemia 01/06/21 23:45 04/06/21 23:44 Docosanol (Abreva) 1 gm FIVE TIMES A DAY TP 01/29/21 20:00 04/29/21 19:59 02/03/21 13:24 Fentanyl Citrate 250 ml @ 1 mls/hr Q24H IV 02/02/21 01:45 02/04/21 01:44 02/03/21 11:10 Insulin Aspart (NovoLOG) EVERY 6 HOURS SUBQ 01/09/21 12:00 04/04/21 16:29 02/03/21 12:15 Lansoprazole (Prevacid) 30 mg DAILY GT 01/24/21 09:00 02/15/21 08:59 02/03/21 08:41 Midodrine (Pro-Amatine) 10 mg Q8HR ORAL 01/20/21 14:00 04/20/21 13:59 02/03/21 14:51 Potassium Chloride (K-Dur) 20 meq TWICE A DAY NG 01/20/21 13:00 04/20/21 12:59 02/03/21 08:42 Quetiapine Fumarate (SEROqueL) 100 mg Q12HR ORAL 01/20/21 15:00 03/06/21 14:59 02/03/21 08:43 Valproic Acid (Depakene) 500 mg Q12HR GT 01/22/21 21:00 02/21/21 20:59 02/03/21 08:41 Vancomycin HCl 250 ml @ 166.667 mls/hr Q8H IVPB 02/01/21 09:00 02/06/21 08:59 02/03/21 08:42 Vancomycin HCl ([facility] pharmacy to dose) 1 ea DAILY PRN MISC Per rx protocol 01/25/21 08:15 02/24/21 08:14 Warfarin Sodium (Coumadin per pharmacy) 1 ea DAILY PRN MISC Per rx protocol 02/02/21 11:45 03/04/21 11:44 Hold Laboratory Tests 02/03/21 05:40: White Blood Count 9.2, Red Blood Count 3.64L, Hemoglobin 10.5L, Hematocrit 33.3L , Mean Corpuscular Volume 92, Mean Corpuscular Hemoglobin 28.9, Mean Corpuscular Hemoglobin Concent 31.5L, Red Cell Distribution Width 16.8H, Platelet Count 320, Mean Platelet Volume 7.9, Neutrophils (%) (Auto) 62.0, Lymphocytes (%) (Auto) 24.9, Monocytes (%) (Auto) 9.1, Eosinophils (%) (Auto) 2.7, Basophils (%) (Auto) 1.4, Prothrombin Time 11.7H, Prothromb Time International Ratio 1.1, Sodium Level 138, Potassium Level 3.8, Chloride Level 102, Carbon Dioxide Level 27, Anion Gap 9, Blood Urea Nitrogen 8, Creatinine 0.6, Estimat Glomerular Filtration Rate > 60, Glucose Level 188H, Calcium Level 9.1 Height (Feet): 5 Height (Inches): 5.00 Weight (Pounds): 233 General Appearance: no apparent distress EENT: other - Intubated on ventilator Cardiovascular: tachycardia Respiratory/Chest: decreased breath sounds Abdomen: distended Avi Frye MD Feb 03, 2021 16:15
[2021-02-03] MEDS ORDERED: Warfarin Sodium 2.5mg ORAL SCH (17:00)
[2021-02-03] MEDS ORDERED: Warfarin Sodium 5mg ORAL SCH (17:00)
[2021-02-03] MEDS: Dyna-Hex 2% Top Sol 2oz TOPIC SCH (21:07)
--- NOTE | 2021-02-03 23:25 | Pulmonology Progress Note ---
Subjective ROS Limited/Unobtainable: Yes Allergies: Coded Allergies: No Known Allergies (Unverified , 01/02/21) Objective Last 24 Hour Vital Signs Date Time Temp Pulse Resp B/P (MAP) Pulse Ox O2 Delivery O2 Flow Rate FiO2 02/03/21 22:00 20 162/85 Mechanical Ventilator 45 02/03/21 21:45 105 26 163/86 (111) 95 02/03/21 21:30 103 22 165/95 (118) 98 02/03/21 21:15 104 22 162/95 (117) 98 02/03/21 21:00 84 22 127/83 (98) 93 02/03/21 21:00 20 129/74 Mechanical Ventilator 45 02/03/21 20:45 94 22 131/83 (99) 94 02/03/21 20:30 86 22 123/79 (94) 93 02/03/21 20:15 82 22 131/79 (96) 93 02/03/21 20:00 Mechanical Ventilator 02/03/21 20:00 40 02/03/21 20:00 22 124/64 Endotracheal Tube 45 02/03/21 20:00 98.5 81 22 134/84 (101) 92 02/03/21 19:28 89 22 94 Mechanical Ventilator 40 90 22 40 02/03/21 19:00 90 21 131/77 (95) 94 02/03/21 19:00 21 131/77 Endotracheal Tube 45 02/03/21 18:00 22 130/76 Endotracheal Tube 45 02/03/21 18:00 81 22 130/76 (94) 90 02/03/21 17:00 98.8 86 22 108/71 (83) 91 02/03/21 17:00 22 108/71 Endotracheal Tube 45 02/03/21 16:30 89 22 40 02/03/21 16:00 Mechanical Ventilator 02/03/21 16:00 102 02/03/21 16:00 40 02/03/21 16:00 22 117/94 Endotracheal Tube 45 02/03/21 16:00 102 22 117/94 (102) 90 02/03/21 15:07 86 22 40 02/03/21 15:00 20 103/74 Endotracheal Tube 45 02/03/21 15:00 100 20 103/74 (84) 92 02/03/21 14:00 20 103/74 Endotracheal Tube 45 02/03/21 14:00 85 20 103/74 (84) 92 02/03/21 13:20 84 22 97 Mechanical Ventilator 40 91 22 40 02/03/21 13:00 98.9 71 22 135/85 (102) 97 02/03/21 13:00 22 135/85 Endotracheal Tube 45 02/03/21 12:00 87 22 113/76 (88) 93 02/03/21 12:00 Mechanical Ventilator 02/03/21 12:00 22 113/76 Endotracheal Tube 45 02/03/21 12:00 94 02/03/21 12:00 40 02/03/21 11:10 22 114/72 Endotracheal Tube 45 02/03/21 11:00 93 22 114/72 (86) 92 02/03/21 10:30 107 23 40 02/03/21 10:00 22 102/65 Endotracheal Tube 45 02/03/21 10:00 82 22 102/65 (77) 90 02/03/21 09:00 98.5 83 22 116/77 (90) 93 02/03/21 09:00 22 116/77 Endotracheal Tube 45 02/03/21 08:50 82 22 40 02/03/21 08:00 Mechanical Ventilator 02/03/21 08:00 40 02/03/21 08:00 86 22 98/70 (79) 92 02/03/21 08:00 22 98/70 Endotracheal Tube 45 02/03/21 08:00 91 02/03/21 07:08 89 22 100 Mechanical Ventilator 40 90 22 40 02/03/21 07:00 22 106/67 Endotracheal Tube 45 02/03/21 07:00 95 22 106/67 (80) 92 02/03/21 06:30 77 22 102/72 (82) 93 02/03/21 06:15 76 22 103/71 (82) 92 02/03/21 06:00 76 22 113/76 (88) 92 02/03/21 05:45 80 22 112/75 (87) 90 02/03/21 05:30 80 22 102/71 (81) 90 02/03/21 05:15 77 19 104/67 (79) 89 02/03/21 05:00 86 21 103/68 (80) 90 02/03/21 04:45 79 18 93/60 (71) 89 02/03/21 04:30 76 4 94/63 (73) 88 02/03/21 04:15 79 22 95/57 (70) 89 02/03/21 04:00 Mechanical Ventilator 02/03/21 04:00 40 02/03/21 04:00 88 22 98/66 (77) 91 02/03/21 04:00 71 02/03/21 03:56 89 25 99/63 (75) 92 02/03/21 03:56 89 25 99/63 (75) 92 02/03/21 03:45 86 19 91 02/03/21 03:45 86 19 91 02/03/21 03:30 86 21 106/61 (76) 90 02/03/21 03:30 86 21 106/61 (76) 90 02/03/21 03:15 83 22 102/66 (78) 88 02/03/21 03:15 83 22 102/66 (78) 88 02/03/21 03:00 88 21 115/81 (92) 95 02/03/21 03:00 88 21 115/81 (92) 95 02/03/21 02:57 86 22 97 Mechanical Ventilator 40 94 22 40 02/03/21 02:45 89 22 109/68 (82) 91 02/03/21 02:45 89 22 109/68 (82) 91 02/03/21 02:30 80 22 99/65 (76) 91 02/03/21 02:30 80 22 99/65 (76) 91 02/03/21 02:15 79 22 108/68 (81) 91 02/03/21 02:15 79 22 108/68 (81) 91 02/03/21 02:00 79 22 102/72 (82) 91 02/03/21 02:00 79 22 102/72 (82) 91 02/03/21 01:45 79 22 104/67 (79) 91 02/03/21 01:45 79 22 104/67 (79) 91 02/03/21 01:30 79 22 107/69 (82) 91 02/03/21 01:30 79 22 107/69 (82) 91 02/03/21 01:15 83 22 103/66 (78) 91 02/03/21 01:15 83 22 103/66 (78) 91 02/03/21 01:00 80 22 104/72 (83) 91 02/03/21 01:00 80 22 104/72 (83) 91 02/03/21 00:45 87 22 100/65 (77) 91 02/03/21 00:45 87 22 100/65 (77) 91 02/03/21 00:30 82 22 100/64 (76) 91 02/03/21 00:30 82 22 100/64 (76) 91 02/03/21 00:15 81 22 104/70 (81) 91 02/03/21 00:15 81 22 104/70 (81) 91 02/03/21 00:00 77 02/03/21 00:00 82 22 105/67 (80) 91 02/03/21 00:00 Mechanical Ventilator 02/03/21 00:00 82 22 105/67 (80) 91 02/03/21 00:00 40 02/02/21 23:45 87 22 125/84 (98) 92 02/02/21 23:30 78 22 104/72 (83) 93 02/02/21 23:30 84 22 40 Intake and Output 02/02/21 02/03/21 19:00 07:00 Intake Total 864.50 ml 890 ml Output Total 1315 ml 670 ml Balance -450.50 ml 220 ml Free Water 200 ml IV Total 184.50 ml 60 ml Tube Feeding 480 ml 720 ml Other 110 ml Output Urine Total 1315 ml 670 ml # Bowel Movements 1 Laboratory Tests 02/03/21 05:40: White Blood Count 9.2, Red Blood Count 3.64L, Hemoglobin 10.5L, Hematocrit 33.3L , Mean Corpuscular Volume 92, Mean Corpuscular Hemoglobin 28.9, Mean Corpuscular Hemoglobin Concent 31.5L, Red Cell Distribution Width 16.8H, Platelet Count 320, Mean Platelet Volume 7.9, Neutrophils (%) (Auto) 62.0, Lymphocytes (%) (Auto) 24.9, Monocytes (%) (Auto) 9.1, Eosinophils (%) (Auto) 2.7, Basophils (%) (Auto) 1.4, Prothrombin Time 11.7H, Prothromb Time International Ratio 1.1, Sodium Level 138, Potassium Level 3.8, Chloride Level 102, Carbon Dioxide Level 27, Anion Gap 9, Blood Urea Nitrogen 8, Creatinine 0.6, Estimat Glomerular Filtration Rate > 60, Glucose Level 188H, Calcium Level 9.1 Current Medications Medications (Trade) Dose Ordered Sig/Johnny Route PRN Reason Start Time Stop Time Status Last Admin Dose Admin Acetaminophen (Tylenol) 650 mg Q6H PRN NG Temp >100.5 01/09/21 09:15 02/08/21 09:14 01/26/21 02:05 Acetaminophen (Tylenol) 650 mg Q6H PRN NG Mild Pain (Pain Scale 1-3) 01/09/21 09:15 02/08/21 09:14 02/03/21 04:10 Acetylcysteine (Mucomyst) 200 mg Q6HRT N 02/03/21 13:00 05/04/21 12:59 02/03/21 19:20 Albuterol/ Ipratropium (Albuterol/ Ipratropium) 3 ml Q6HRT N 02/03/21 13:00 02/08/21 12:59 02/03/21 19:20 Chlorhexidine Gluconate (Myranda-Hex 2%) 1 applic DAILY@2000 TOPIC 01/29/21 20:00 04/29/21 19:59 02/03/21 21:07 Dextrose (Dextrose 50%) 25 ml Q30M PRN IV Hypoglycemia 01/06/21 23:45 04/06/21 23:44 Dextrose (Dextrose 50%) 50 ml Q30M PRN IV Hypoglycemia 01/06/21 23:45 04/06/21 23:44 Docosanol (Abreva) 1 gm FIVE TIMES A DAY TP 01/29/21 20:00 04/29/21 19:59 02/03/21 19:06 Fentanyl Citrate 250 ml @ 1 mls/hr Q24H IV 02/02/21 01:45 02/04/21 01:44 02/03/21 11:10 Insulin Aspart (NovoLOG) EVERY 6 HOURS SUBQ 01/09/21 12:00 04/04/21 16:29 02/03/21 18:13 Lansoprazole (Prevacid) 30 mg DAILY GT 01/24/21 09:00 02/15/21 08:59 02/03/21 08:41 Midodrine (Pro-Amatine) 10 mg Q8HR ORAL 01/20/21 14:00 04/20/21 13:59 02/03/21 21:09 Potassium Chloride (K-Dur) 20 meq TWICE A DAY NG 01/20/21 13:00 04/20/21 12:59 02/03/21 18:12 Quetiapine Fumarate (SEROqueL) 100 mg Q12HR ORAL 01/20/21 15:00 03/06/21 14:59 02/03/21 21:08 Valproic Acid (Depakene) 500 mg Q12HR GT 01/22/21 21:00 02/21/21 20:59 02/03/21 21:08 Vancomycin HCl 250 ml @ 166.667 mls/hr Q8H IVPB 02/01/21 09:00 02/06/21 08:59 02/03/21 18:10 Vancomycin HCl ([facility] pharmacy to dose) 1 ea DAILY PRN MISC Per rx protocol 01/25/21 08:15 02/24/21 08:14 Warfarin Sodium (Coumadin per pharmacy) 1 ea DAILY PRN MISC Per rx protocol 02/02/21 11:45 03/04/21 11:44 Hold Assessment/Plan Assessment/Plan Pulmonary CCM Progress Note HPI Patient is a 60 man with prior h/o COPD, CPS/bipolar DO, 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, DM2, HTN and hydrocephalus Physical Exam Deferred Covid19 Vital Signs noted Laboratory Tests noted Imaging noted Height (Feet): 5 Height (Inches): 5.00 Weight (Pounds): 233 Medications Medications noted Assessment/Plan Problem List: (1) Pneumonia due to COVID-19 virus ICD Codes: U07.1 - COVID-19; J12.82 - Pneumonia due to coronavirus disease 2019 SNOMED: 898135146828901906 (2) Acute hypercapnic respiratory failure ICD Codes: J96.02 - Acute respiratory failure with hypercapnia SNOMED: 826854400 (3) Respiratory failure with hypoxia ICD Codes: J96.91 - Respiratory failure, unspecified with hypoxia SNOMED: 40014372433357029 Qualifiers: Qualified Codes: J96.01 - Acute respiratory failure with hypoxia (4) COPD (chronic obstructive pulmonary disease) ICD Codes: J44.9 - Chronic obstructive pulmonary disease, unspecified SNOMED: 56494820 (5) History of deep venous thrombosis or pulmonary embolus SNOMED: 236252475 (6) Obesity ICD Codes: E66.9 - Obesity, unspecified SNOMED: 320151838, 841324377 (7) Essential hypertension ICD Codes: I10 - Essential (primary) hypertension SNOMED: 35658055 (8) Diabetes mellitus type 2 in obese ICD Codes: E11.69 - Type 2 diabetes mellitus with other specified complication; E66.9 - Obesity, unspecified SNOMED: 78241281 (9) History of hydrocephalus ICD Codes: Z86.69 - Personal history of other diseases of the nervous system and sense organs SNOMED: 372423958 (10) Schizophrenia ICD Codes: F20.9 - Schizophrenia, unspecified SNOMED: 34499134 (11) Bipolar 1 disorder ICD Codes: F31.9 - Bipolar disorder, unspecified SNOMED: 288422332 (12) Anticoagulant long-term use ICD Codes: Z79.01 - terminal gauger (current) use of anticoagulants SNOMED: 976746638 Assessment/Plan: ACVC - adjust PRN Adjust FiO2 to keep SaO2 > 92% Wean as tolerated Pressors PRN Sedation PRN HFA's ID recs REM completed per ID AB perID Weaned off SM Abx per ID F/U Cx's Monitor volumes and renal function,diuresis per Renal DVT Px: Coumadin TF when not proned FC Will need tracheostomy - did not tolerate weaning Anuel Luis MD Feb 03, 2021 23:25
[2021-02-04] VITALS (45 sets, daily range): BP systolic 92–142; BP diastolic 54–93
[2021-02-04] MEDS: NovoLOG Insulin Flexpen SUBQ SCH ×4 (00:20→17:16)
[2021-02-04] MEDS: Vancomycin 1.25gm/250ml Premix IVPB SCH ×3 (00:21→17:08)
[2021-02-04] MEDS: fentaNYL 2500mcg/NS 250ml 250 ML IV SCH ×3 (01:42→19:34)
[2021-02-04] MEDS: Albuterol/Ipratropium 3ml neb HHN SCH ×4 (03:44→19:31)
[2021-02-04] MEDS: Acetylcysteine 20% Soln 4ml HHN SCH ×4 (03:44→19:32)
[2021-02-04 05:13] LABS: BASOPHILS % (AUTO) 0.9 % (0.0-2.0); HEMATOCRIT 35.1 % (42.0-52.0); HEMOGLOBIN 11.1 G/DL (14.2-18.0); LYMPHOCYTES % (AUTO) 24.8 % (20.0-45.0); MEAN CORPUSCULAR VOLUME 91 FL (80-99); MONOCYTES % (AUTO) 8.1 % (1.0-10.0); NEUTROPHILS % (AUTO) 64.1 % (45.0-75.0); PLATELET COUNT 350 K/UL (150-450); RED BLOOD COUNT 3.85 M/UL (4.70-6.10); RED CELL DISTRIBUTION WIDTH 16.1 % (11.6-14.8); WHITE BLOOD COUNT 8.9 K/UL (4.8-10.8)
[2021-02-04 05:20] LABS: INR 1.2 (0.9-1.1)
[2021-02-04] MEDS: Midodrine 10mg tab ORAL SCH ×3 (05:35→21:05)
[2021-02-04 05:43] LABS: ALANINE AMINOTRANSFERASE 19 U/L (12-78); ALBUMIN 2.1 G/DL (3.4-5.0); ALBUMIN/GLOBULIN RATIO 0.5 (1.0-2.7); ALKALINE PHOSPHATASE 111 U/L (46-116); ANION GAP 8 mmol/L (5-15); ASPARTATE AMINO TRANSFERASE 16 U/L (15-37); BILIRUBIN,TOTAL 0.3 MG/DL (0.2-1.0); BLOOD UREA NITROGEN 7 mg/dL (7-18); CALCIUM 9.4 MG/DL (8.5-10.1); CARBON DIOXIDE 28 MMOL/L (21-32); CHLORIDE 103 MMOL/L (98-107); CREATININE 0.6 MG/DL (0.55-1.30); PHOSPHORUS 4.7 MG/DL (2.5-4.9); POTASSIUM 3.9 MMOL/L (3.5-5.1); SODIUM 139 MMOL/L (136-145)
[2021-02-04] MEDS: Abreva 10% cream 2gm TP SCH ×5 (06:36→19:00)
--- NOTE | 2021-02-04 08:51 | Infectious Diseases Prog Note ---
Assessment/Plan 60yo M with: Septic SHock Receurrent Gram postiive bacteremia r/o gentry infection -01/25 Bcx 2/ sets GPC clustesr Staph epi bacteremia ? infected fem line , Sp removal 02/01 01/10 BCx / +Staph epi 01/13 BCx Neg 01/25 BCx CoNS 2/2 01/28 BCx - CoNS /2 01/31/21 BCx - NGTD 02/02/21 BCx - / GPC 02/04/21 BCx - NGTD COVID pna, severe Acute hypoxia 01/01 COVID pna >> intubated 01/06- 50% FIo2 Febrile to 103; imporving Normal WBC Elevated AST 51 01/01 Tested positive for COVID at 01/02 COVID PCR positive 01/02 BCx NTD CXR: Multifocal pna MRSA nares neg 01/06 Intubated in ICU CXR: 1. Appropriately positioned endotracheal and enteric tubes. 2. Stable bilateral airspace disease. 01/07 Resp cx +Yasmine albicans (colonizer) 01/11 CXR: Interval improved bilateral lung aeration. Bibasilar infiltrates/atelectasis. Cr 1.1 01/30/ PICC placement HIV screen neg PMH: DM2 COPD HTN SNF resident PICC placed 01/30/21 Plan: Cont Vancomycin # 13 Repeat Blood Cx Monitor WBCs Monitor temps 02/01/21 SP Zosyn #7 01/22/21 steroids #19, on methylpred 20 IV q12 - defer course to Pulm/Primary, now tapering 01/19/21 SP Zosyn #10 01/14 SP vanco IV #1 01/09 SP CTX #7 01/07 SP azithro #5, RDV #5 This institution does not have access to convalescent plasma and only recommended to give in setting of clinical trial Monitor temp curve, hemodynamics Monitor resp status Rpt Blood Cx 2D echo D/w RN Thank you for this consult. [facility] will continue to follow. Subjective Allergies: Coded Allergies: No Known Allergies (Unverified , 01/02/21) Afebrile Remains on Vent 40% O2 No Leukocytosis Objective Last 24 Hour Vital Signs Date Time Temp Pulse Resp B/P (MAP) Pulse Ox O2 Delivery O2 Flow Rate FiO2 02/04/21 08:00 97.3 96 23 115/66 (82) 02/04/21 07:11 87 22 100 Mechanical Ventilator 40 86 22 40 02/04/21 07:00 90 22 101/66 (78) 100 02/04/21 06:30 88 21 128/85 (99) 02/04/21 06:15 97 23 122/86 (98) 100 02/04/21 06:00 89 22 112/79 (90) 02/04/21 06:00 22 117/60 Mechanical Ventilator 45 02/04/21 05:45 92 22 127/88 (101) 02/04/21 05:30 94 22 128/93 (105) 02/04/21 05:15 90 22 106/71 (83) 98 02/04/21 05:00 95 23 125/85 (98) 97 02/04/21 05:00 21 127/85 Mechanical Ventilator 45 02/04/21 04:45 103 23 106/67 (80) 02/04/21 04:30 98 23 110/70 (83) 02/04/21 04:15 100 22 142/92 (109) 02/04/21 04:00 99 02/04/21 04:00 40 02/04/21 04:00 21 132/78 Mechanical Ventilator 45 02/04/21 04:00 98.1 99 22 111/70 (84) 02/04/21 04:00 Mechanical Ventilator 02/04/21 03:45 86 22 127/87 (100) 91 02/04/21 03:30 89 22 109/70 (83) 90 02/04/21 03:30 88 22 98 Mechanical Ventilator 40 89 22 40 02/04/21 03:15 92 22 116/74 (88) 93 02/04/21 03:00 100 23 116/78 (91) 92 02/04/21 03:00 20 136/89 Mechanical Ventilator 45 02/04/21 02:45 103 24 113/74 (87) 90 02/04/21 02:30 108 25 112/70 (84) 91 02/04/21 02:15 100 23 128/80 (96) 95 02/04/21 02:00 111 23 123/83 (96) 93 02/04/21 02:00 20 119/67 Mechanical Ventilator 45 02/04/21 01:45 111 25 125/77 (93) 92 02/04/21 01:42 19 122/73 Mechanical Ventilator 45 02/04/21 01:30 101 22 117/70 (86) 90 02/04/21 01:15 85 22 109/73 (85) 92 02/04/21 01:15 85 22 109/73 (85) 92 02/04/21 01:00 20 118/70 Mechanical Ventilator 45 02/04/21 01:00 84 22 112/74 (87) 95 02/04/21 00:45 79 22 102/70 (81) 94 02/04/21 00:30 82 22 106/69 (81) 94 02/04/21 00:15 84 22 110/72 (85) 95 02/04/21 00:00 98.2 81 22 108/71 (83) 93 02/04/21 00:00 40 02/04/21 00:00 22 112/78 Mechanical Ventilator 45 02/04/21 00:00 Mechanical Ventilator 02/04/21 00:00 89 02/03/21 23:45 82 22 105/70 (82) 92 02/03/21 23:30 87 22 107/69 (82) 91 02/03/21 23:26 83 22 40 02/03/21 23:15 85 22 93/64 (74) 92 02/03/21 23:00 90 22 95/64 (74) 93 02/03/21 23:00 22 103/87 Mechanical Ventilator 45 02/03/21 22:45 91 20 97/59 (72) 94 02/03/21 22:30 86 22 54/27 (36) 89 02/03/21 22:15 89 22 158/85 (109) 90 02/03/21 22:00 20 162/85 Mechanical Ventilator 45 02/03/21 22:00 93 24 145/70 (95) 92 02/03/21 21:45 105 26 163/86 (111) 95 02/03/21 21:30 103 22 165/95 (118) 98 02/03/21 21:15 104 22 162/95 (117) 98 02/03/21 21:00 84 22 127/83 (98) 93 02/03/21 21:00 20 129/74 Mechanical Ventilator 45 02/03/21 20:45 94 22 131/83 (99) 94 02/03/21 20:30 86 22 123/79 (94) 93 02/03/21 20:15 82 22 131/79 (96) 93 02/03/21 20:00 Mechanical Ventilator 02/03/21 20:00 40 02/03/21 20:00 88 02/03/21 20:00 22 124/64 Endotracheal Tube 45 02/03/21 20:00 98.5 81 22 134/84 (101) 92 02/03/21 19:28 89 22 94 Mechanical Ventilator 40 90 22 40 02/03/21 19:00 90 21 131/77 (95) 94 02/03/21 19:00 21 131/77 Endotracheal Tube 45 02/03/21 18:00 22 130/76 Endotracheal Tube 45 02/03/21 18:00 81 22 130/76 (94) 90 02/03/21 17:00 98.8 86 22 108/71 (83) 91 02/03/21 17:00 22 108/71 Endotracheal Tube 45 02/03/21 16:30 89 22 40 02/03/21 16:00 Mechanical Ventilator 02/03/21 16:00 102 02/03/21 16:00 40 02/03/21 16:00 22 117/94 Endotracheal Tube 45 02/03/21 16:00 102 22 117/94 (102) 90 02/03/21 15:07 86 22 40 02/03/21 15:00 20 103/74 Endotracheal Tube 45 02/03/21 15:00 100 20 103/74 (84) 92 02/03/21 14:00 20 103/74 Endotracheal Tube 45 02/03/21 14:00 85 20 103/74 (84) 92 02/03/21 13:20 84 22 97 Mechanical Ventilator 40 91 22 40 02/03/21 13:00 98.9 71 22 135/85 (102) 97 02/03/21 13:00 22 135/85 Endotracheal Tube 45 02/03/21 12:00 87 22 113/76 (88) 93 02/03/21 12:00 Mechanical Ventilator 02/03/21 12:00 22 113/76 Endotracheal Tube 45 02/03/21 12:00 94 02/03/21 12:00 40 02/03/21 11:10 22 114/72 Endotracheal Tube 45 02/03/21 11:00 93 22 114/72 (86) 92 02/03/21 10:30 107 23 40 02/03/21 10:00 22 102/65 Endotracheal Tube 45 02/03/21 10:00 82 22 102/65 (77) 90 02/03/21 09:00 98.5 83 22 116/77 (90) 93 02/03/21 09:00 22 116/77 Endotracheal Tube 45 02/03/21 08:50 82 22 40 Height (Feet): 5 Height (Inches): 5.00 Weight (Pounds): 233 Gen: NAD on Vent 40% O2, Not following HEENT: NCAT, ETT, OGT Pulm: BL chest rise, RRR Skin: No visible rashes Neuro: Not following Lines STEPHANIE PICC lines in place Microbiology Date/Time Source Procedure Growth Status 02/02/21 17:45 Blood Blood Culture - Preliminary NO GROWTH AFTER 24 HOURS Resulted 02/02/21 17:30 Blood Blood Culture - Preliminary Gram Positive Cocci Resulted Laboratory Tests Test 02/04/21 00:15 02/04/21 04:01 POC Whole Blood Glucose 150 MG/DL (74-106) H White Blood Count 8.9 K/UL (4.8-10.8) Red Blood Count 3.85 M/UL (4.70-6.10) L Hemoglobin 11.1 G/DL (14.2-18.0) L Hematocrit 35.1 % (42.0-52.0) L Mean Corpuscular Volume 91 FL (80-99) Mean Corpuscular Hemoglobin 28.9 PG (27.0-31.0) Mean Corpuscular Hemoglobin Concent 31.6 G/DL (32.0-36.0) L Red Cell Distribution Width 16.1 % (11.6-14.8) H Platelet Count 350 K/UL (150-450) Mean Platelet Volume 7.3 FL (6.5-10.1) Neutrophils (%) (Auto) 64.1 % (45.0-75.0) Lymphocytes (%) (Auto) 24.8 % (20.0-45.0) Monocytes (%) (Auto) 8.1 % (1.0-10.0) Eosinophils (%) (Auto) 2.0 % (0.0-3.0) Basophils (%) (Auto) 0.9 % (0.0-2.0) Prothrombin Time 12.7 SEC (9.30-11.50) H Prothromb Time International Ratio 1.2 (0.9-1.1) H Sodium Level 139 MMOL/L (136-145) Potassium Level 3.9 MMOL/L (3.5-5.1) Chloride Level 103 MMOL/L (98-107) Carbon Dioxide Level 28 MMOL/L (21-32) Anion Gap 8 mmol/L (5-15) Blood Urea Nitrogen 7 mg/dL (7-18) Creatinine 0.6 MG/DL (0.55-1.30) Estimat Glomerular Filtration Rate > 60 mL/min (>60) Glucose Level 169 MG/DL (74-106) H Calcium Level 9.4 MG/DL (8.5-10.1) Phosphorus Level 4.7 MG/DL (2.5-4.9) Magnesium Level 1.8 MG/DL (1.8-2.4) Total Bilirubin 0.3 MG/DL (0.2-1.0) Aspartate Amino Transf (AST/SGOT) 16 U/L (15-37) Alanine Aminotransferase (ALT/SGPT) 19 U/L (12-78) Alkaline Phosphatase 111 U/L (46-116) C-Reactive Protein, Quantitative 15.0 mg/dL (0.00-0.90) H Pro-B-Type Natriuretic Peptide 638 pg/mL (0-125) H Total Protein 6.7 G/DL (6.4-8.2) Albumin 2.1 G/DL (3.4-5.0) L Globulin 4.6 g/dL Albumin/Globulin Ratio 0.5 (1.0-2.7) L Current Medications Medications (Trade) Dose Ordered Sig/Johnny Route PRN Reason Start Time Stop Time Status Last Admin Dose Admin Acetaminophen (Tylenol) 650 mg Q6H PRN NG Temp >100.5 01/09/21 09:15 02/08/21 09:14 01/26/21 02:05 Acetaminophen (Tylenol) 650 mg Q6H PRN NG Mild Pain (Pain Scale 1-3) 01/09/21 09:15 02/08/21 09:14 02/03/21 04:10 Acetylcysteine (Mucomyst) 200 mg Q6HRT HHN 02/03/21 13:00 05/04/21 12:59 02/04/21 06:54 Albuterol/ Ipratropium (Albuterol/ Ipratropium) 3 ml Q6HRT HHN 02/03/21 13:00 02/08/21 12:59 02/04/21 06:54 Chlorhexidine Gluconate (Myranda-Hex 2%) 1 applic DAILY@2000 TOPIC 01/29/21 20:00 04/29/21 19:59 02/03/21 21:07 Dextrose (Dextrose 50%) 25 ml Q30M PRN IV Hypoglycemia 01/06/21 23:45 04/06/21 23:44 Dextrose (Dextrose 50%) 50 ml Q30M PRN IV Hypoglycemia 01/06/21 23:45 04/06/21 23:44 Docosanol (Abreva) 1 gm FIVE TIMES A DAY TP 01/29/21 20:00 04/29/21 19:59 02/04/21 06:36 Fentanyl Citrate 250 ml @ 1 mls/hr Q24H IV 02/02/21 01:45 02/04/21 10:59 02/04/21 01:42 Fentanyl Citrate 250 ml @ 1 mls/hr Q24H IV 02/04/21 11:00 02/06/21 10:59 Insulin Aspart (NovoLOG) EVERY 6 HOURS SUBQ 01/09/21 12:00 04/04/21 16:29 02/04/21 05:36 Lansoprazole (Prevacid) 30 mg DAILY GT 01/24/21 09:00 02/15/21 08:59 02/03/21 08:41 Midodrine (Pro-Amatine) 10 mg Q8HR ORAL 01/20/21 14:00 04/20/21 13:59 02/04/21 05:35 Potassium Chloride (K-Dur) 20 meq TWICE A DAY NG 01/20/21 13:00 04/20/21 12:59 02/03/21 18:12 Quetiapine Fumarate (SEROqueL) 100 mg Q12HR ORAL 01/20/21 15:00 03/06/21 14:59 02/03/21 21:08 Valproic Acid (Depakene) 500 mg Q12HR GT 01/22/21 21:00 02/21/21 20:59 02/03/21 21:08 Vancomycin HCl 250 ml @ 166.667 mls/hr Q8H IVPB 02/01/21 09:00 02/06/21 08:59 02/04/21 00:21 Vancomycin HCl (Vanco pharmacy to dose) 1 ea DAILY PRN MISC Per rx protocol 01/25/21 08:15 02/24/21 08:14 Warfarin Sodium (Coumadin per pharmacy) 1 ea DAILY PRN MISC Per rx protocol 02/02/21 11:45 03/04/21 11:44 Anuel Pereira MD Feb 04, 2021 08:51
[2021-02-04] MEDS: Valproic Acid 250mg/5ml Liquid GT SCH ×2 (08:55→21:06)
--- NOTE | 2021-02-04 10:36 | Nephrology Progress Note ---
Assessment/Plan Problem List: (1) Hyperkalemia (2) Pneumonia due to COVID-19 virus (3) Respiratory failure with hypoxia (4) Obesity (5) Schizophrenia (6) DMII (diabetes mellitus, type 2) Assessment Hyperkalemia Stable renal parameters Hyperglycemia Covid pneumonia due to COVID-19 virus Acute respiratory failure with hypoxia requiring mechanical ventilation History of COPD History of DVT, pulmonary emboli Obese Hypertension History of diabetes Psych condition, schizophrenia, bipolar disease Plan February 04: Remains full code. Intubated on ventilator. FiO2 40%. Due for tracheostomy. Stable from renal standpoint of view. February 03: Remains intubated on ventilator. FiO2 40%. Discussed with RN. Patient is planned to have tracheostomy. Labs reviewed. Renal parameters stable. February 02: Status quo. Full code. Intubated on ventilator. FiO2 40%. Renal parameters stable. February 01: Status quo. FiO2 40%. Full code. Labs reviewed. Renal parameters stable. January 31: Status quo. FiO2 45%. Full code. Renal parameters stable. Abnormal electrolytes addressed. January 30: Status quo. Remains full code. Intubated. On ventilator. Low magnesium addressed. Continue per consultants. January 29: Status quo. Labs reviewed. Low magnesium addressed. Discussed with JOHAN Ratliff. Continue per consultants. January 28: Status quo. Labs and medication list reviewed. K-Phos supplement ordered. Continue per current treatment plan. January 27: Patient remains full code. Intubated on ventilator. FiO2 50%. Labs reviewed. Renal parameters stable. Medication list reviewed. January 26: Full code. Intubated. On ventilator. FiO2 65%. No CHEM panel drawn today. Continue per consultants. January 25: Status unchanged. Blood pressure low. Remains full code on ventilator. Continue per consultants. Medication list reviewed. INR is 3.8 today. January 24: Status quo. Intubated on ventilator and full code. Labs reviewed. Medication list reviewed. Continue per consultants. January 23: Patient on prone position. IntubatedFiO2 65%. Renal parameters stable. Continue per consultants. Date hospitalization. Possible trach?. January 22: FiO2 50%. Prone position. Labs reviewed. Stable from renal sue dpoint of view. Continue per consultants. January 21: Full code. Intubated on ventilator. FiO2 40%. Labs reviewed. Renal parameters stable. Continue per consultants. January 20: Status unchanged. Full code. On ventilator. Chest x-ray reviewed. IV fluid discontinued. Potassium supplement given. 1 dose of Lasix given. Albumin bolus given. Midodrine started. Will monitor renal parameters and electrolytes. Discussed with JOHAN Mohamud. January 19: Labs reviewed. Renal parameters stable. Remains full code intubated on ventilator. FiO2 50%. Continue per consultants. January 18: Full code. Intubated. On ventilator. FiO2 down to 35%. No labs drawn today. Continue to monitor renal parameters and electrolytes. January 17: Full code. Intubated on ventilator. FiO2 remains at 60%. Labs reviewed. Renal parameters stable. January 16: Full code. Intubated. Labs reviewed. Renal parameters stable. FiO2 60%. Continue per consultants. January 15: Patient remains intubated and full code. Labs reviewed. Stable renal parameters. January 14: Patient full code. Intubated on ventilator. On prone position until 5 PM. Labs reviewed. Stable from renal standpoint of view. January 13: Labs reviewed. Renal parameters stable. Continue per consultants. Patient remain full code and intubated on ventilator. January 12: Labs reviewed. Renal parameters stable. Patient remains full code. Remains intubated on ventilator and on prone position. Continue per consultants. January 11: Labs reviewed. Renal parameters stable. Continue per consultants. January 10: Labs reviewed. Renal parameters stable. Continue per consultants. Change IV to half-normal saline Kayexalate via NG tube for high potassium Monitor electrolytes and renal parameters Per orders, per consultants Subjective ROS Limited/Unobtainable: Yes Objective Objective Last 24 Hour Vital Signs Date Time Temp Pulse Resp B/P (MAP) Pulse Ox O2 Delivery O2 Flow Rate FiO2 02/04/21 10:00 105 24 125/87 (100) 100 02/04/21 09:15 99 23 117/78 (91) 96 02/04/21 09:00 90 22 110/71 (84) 98 02/04/21 08:42 94 22 40 02/04/21 08:00 Mechanical Ventilator 02/04/21 08:00 40 02/04/21 08:00 97.3 96 23 115/66 (82) 02/04/21 07:29 96 02/04/21 07:11 87 22 100 Mechanical Ventilator 40 86 22 40 3/8/21 07:00 90 22 101/66 (78) 100 02/04/21 06:30 88 21 128/85 (99) 02/04/21 06:15 97 23 122/86 (98) 100 02/04/21 06:00 89 22 112/79 (90) 02/04/21 06:00 22 117/60 Mechanical Ventilator 45 02/04/21 05:45 92 22 127/88 (101) 02/04/21 05:30 94 22 128/93 (105) 02/04/21 05:15 90 22 106/71 (83) 98 02/04/21 05:00 95 23 125/85 (98) 97 02/04/21 05:00 21 127/85 Mechanical Ventilator 45 02/04/21 04:45 103 23 106/67 (80) 02/04/21 04:30 98 23 110/70 (83) 02/04/21 04:15 100 22 142/92 (109) 02/04/21 04:00 99 02/04/21 04:00 40 02/04/21 04:00 21 132/78 Mechanical Ventilator 45 02/04/21 04:00 98.1 99 22 111/70 (84) 02/04/21 04:00 Mechanical Ventilator 02/04/21 03:45 86 22 127/87 (100) 91 02/04/21 03:30 89 22 109/70 (83) 90 02/04/21 03:30 88 22 98 Mechanical Ventilator 40 89 22 40 02/04/21 03:15 92 22 116/74 (88) 93 02/04/21 03:00 100 23 116/78 (91) 92 02/04/21 03:00 20 136/89 Mechanical Ventilator 45 02/04/21 02:45 103 24 113/74 (87) 90 02/04/21 02:30 108 25 112/70 (84) 91 02/04/21 02:15 100 23 128/80 (96) 95 02/04/21 02:00 111 23 123/83 (96) 93 02/04/21 02:00 20 119/67 Mechanical Ventilator 45 02/04/21 01:45 111 25 125/77 (93) 92 02/04/21 01:42 19 122/73 Mechanical Ventilator 45 02/04/21 01:30 101 22 117/70 (86) 90 02/04/21 01:15 85 22 109/73 (85) 92 02/04/21 01:15 85 22 109/73 (85) 92 02/04/21 01:00 20 118/70 Mechanical Ventilator 45 02/04/21 01:00 84 22 112/74 (87) 95 02/04/21 00:45 79 22 102/70 (81) 94 02/04/21 00:30 82 22 106/69 (81) 94 02/04/21 00:15 84 22 110/72 (85) 95 02/04/21 00:00 98.2 81 22 108/71 (83) 93 02/04/21 00:00 40 02/04/21 00:00 22 112/78 Mechanical Ventilator 45 02/04/21 00:00 Mechanical Ventilator 02/04/21 00:00 89 02/03/21 23:45 82 22 105/70 (82) 92 02/03/21 23:30 87 22 107/69 (82) 91 02/03/21 23:26 83 22 40 02/03/21 23:15 85 22 93/64 (74) 92 02/03/21 23:00 90 22 95/64 (74) 93 02/03/21 23:00 22 103/87 Mechanical Ventilator 45 02/03/21 22:45 91 20 97/59 (72) 94 02/03/21 22:30 86 22 54/27 (36) 89 02/03/21 22:15 89 22 158/85 (109) 90 02/03/21 22:00 20 162/85 Mechanical Ventilator 45 02/03/21 22:00 93 24 145/70 (95) 92 02/03/21 21:45 105 26 163/86 (111) 95 02/03/21 21:30 103 22 165/95 (118) 98 02/03/21 21:15 104 22 162/95 (117) 98 02/03/21 21:00 84 22 127/83 (98) 93 02/03/21 21:00 20 129/74 Mechanical Ventilator 45 02/03/21 20:45 94 22 131/83 (99) 94 02/03/21 20:30 86 22 123/79 (94) 93 02/03/21 20:15 82 22 131/79 (96) 93 02/03/21 20:00 Mechanical Ventilator 02/03/21 20:00 40 02/03/21 20:00 88 02/03/21 20:00 22 124/64 Endotracheal Tube 45 02/03/21 20:00 98.5 81 22 134/84 (101) 92 02/03/21 19:28 89 22 94 Mechanical Ventilator 40 90 22 40 02/03/21 19:00 90 21 131/77 (95) 94 02/03/21 19:00 21 131/77 Endotracheal Tube 45 02/03/21 18:00 22 130/76 Endotracheal Tube 45 02/03/21 18:00 81 22 130/76 (94) 90 02/03/21 17:00 98.8 86 22 108/71 (83) 91 02/03/21 17:00 22 108/71 Endotracheal Tube 45 02/03/21 16:30 89 22 40 02/03/21 16:00 Mechanical Ventilator 02/03/21 16:00 102 02/03/21 16:00 40 02/03/21 16:00 22 117/94 Endotracheal Tube 45 02/03/21 16:00 102 22 117/94 (102) 90 02/03/21 15:07 86 22 40 02/03/21 15:00 20 103/74 Endotracheal Tube 45 02/03/21 15:00 100 20 103/74 (84) 92 02/03/21 14:00 20 103/74 Endotracheal Tube 45 02/03/21 14:00 85 20 103/74 (84) 92 02/03/21 13:20 84 22 97 Mechanical Ventilator 40 91 22 40 02/03/21 13:00 98.9 71 22 135/85 (102) 97 02/03/21 13:00 22 135/85 Endotracheal Tube 45 02/03/21 12:00 87 22 113/76 (88) 93 02/03/21 12:00 Mechanical Ventilator 02/03/21 12:00 22 113/76 Endotracheal Tube 45 02/03/21 12:00 94 02/03/21 12:00 40 02/03/21 11:10 22 114/72 Endotracheal Tube 45 02/03/21 11:00 93 22 114/72 (86) 92 Intake and Output 02/03/21 02/04/21 19:00 07:00 Intake Total 1085 ml 1229.000 ml Output Total 1030 ml 650 ml Balance 55 ml 579.000 ml Free Water 200 ml IV Total 165 ml 509.000 ml Tube Feeding 720 ml 720 ml Output Urine Total 1030 ml 650 ml # Bowel Movements 1 Current Medications Medications (Trade) Dose Ordered Sig/Johnny Route PRN Reason Start Time Stop Time Status Last Admin Dose Admin Acetaminophen (Tylenol) 650 mg Q6H PRN NG Temp >100.5 01/09/21 09:15 02/08/21 09:14 01/26/21 02:05 Acetaminophen (Tylenol) 650 mg Q6H PRN NG Mild Pain (Pain Scale 1-3) 01/09/21 09:15 02/08/21 09:14 02/03/21 04:10 Acetylcysteine (Mucomyst) 200 mg Q6HRT [facility] 02/03/21 13:00 05/04/21 12:59 02/04/21 06:54 Albuterol/ Ipratropium (Albuterol/ Ipratropium) 3 ml Q6HRT [facility] 02/03/21 13:00 02/08/21 12:59 02/04/21 06:54 Chlorhexidine Gluconate (Myranda-Hex 2%) 1 applic DAILY@2000 TOPIC 01/29/21 20:00 04/29/21 19:59 02/03/21 21:07 Dextrose (Dextrose 50%) 25 ml Q30M PRN IV Hypoglycemia 01/06/21 23:45 04/06/21 23:44 Dextrose (Dextrose 50%) 50 ml Q30M PRN IV Hypoglycemia 01/06/21 23:45 04/06/21 23:44 Docosanol (Abreva) 1 gm FIVE TIMES A DAY TP 01/29/21 20:00 04/29/21 19:59 02/04/21 06:36 Fentanyl Citrate 250 ml @ 1 mls/hr Q24H IV 02/02/21 01:45 02/04/21 10:59 02/04/21 01:42 Fentanyl Citrate 250 ml @ 1 mls/hr Q24H IV 02/04/21 11:00 02/06/21 10:59 Insulin Aspart (NovoLOG) EVERY 6 HOURS SUBQ 01/09/21 12:00 04/04/21 16:29 02/04/21 05:36 Lansoprazole (Prevacid) 30 mg DAILY GT 01/24/21 09:00 02/15/21 08:59 02/04/21 08:54 Midodrine (Pro-Amatine) 10 mg Q8HR ORAL 01/20/21 14:00 04/20/21 13:59 02/04/21 05:35 Potassium Chloride (K-Dur) 20 meq TWICE A DAY NG 01/20/21 13:00 04/20/21 12:59 02/04/21 08:55 Quetiapine Fumarate (SEROqueL) 100 mg Q12HR ORAL 01/20/21 15:00 03/06/21 14:59 02/04/21 08:55 Valproic Acid (Depakene) 500 mg Q12HR GT 01/22/21 21:00 02/21/21 20:59 02/04/21 08:55 Vancomycin HCl 250 ml @ 166.667 mls/hr Q8H IVPB 02/01/21 09:00 02/06/21 08:59 02/04/21 08:54 Vancomycin HCl (Vanco pharmacy to dose) 1 ea DAILY PRN MISC Per rx protocol 01/25/21 08:15 02/24/21 08:14 Warfarin Sodium (Coumadin per pharmacy) 1 ea DAILY PRN MISC Per rx protocol 02/02/21 11:45 03/04/21 11:44 Hold Laboratory Tests 02/04/21 00:15: POC Whole Blood Glucose 150H 02/04/21 04:01: White Blood Count 8.9, Red Blood Count 3.85L, Hemoglobin 11.1L, Hematocrit 35.1L , Mean Corpuscular Volume 91, Mean Corpuscular Hemoglobin 28.9, Mean Corpuscular Hemoglobin Concent 31.6L, Red Cell Distribution Width 16.1H, Platelet Count 350, Mean Platelet Volume 7.3, Neutrophils (%) (Auto) 64.1, Lymphocytes (%) (Auto) 24.8, Monocytes (%) (Auto) 8.1, Eosinophils (%) (Auto) 2.0, Basophils (%) (Auto) 0.9, Prothrombin Time 12.7H, Prothromb Time International Ratio 1.2H, Sodium Level 139, Potassium Level 3.9, Chloride Level 103, Carbon Dioxide Level 28, Anion Gap 8, Blood Urea Nitrogen 7, Creatinine 0.6, Estimat Glomerular Filtration Rate > 60, Glucose Level 169H, Calcium Level 9.4, Phosphorus Level 4.7, Magnesium Level 1.8, Total Bilirubin 0.3, Aspartate Amino Transf (AST/SGOT) 16, Alanine Aminotransferase (ALT/SGPT) 19, Alkaline Phosphatase 111, C-Reactive Protein, Quantitative 15.0H, Pro-B-Type Natriuretic Peptide 638H, Total Protein 6.7, Albumin 2.1L, Globulin 4.6, Albumin/Globulin Ratio 0.5L Height (Feet): 5 Height (Inches): 5.00 Weight (Pounds): 233 General Appearance: no apparent distress Cardiovascular: tachycardia Respiratory/Chest: decreased breath sounds Abdomen: distended Avi Frye MD Feb 04, 2021 10:36
--- NOTE | 2021-02-04 11:35 | Surgery Progress Note ---
Surgery Progress Note Subjective Additional Comments plan trach tomorrow Objective Last 24 Hour Vital Signs Date Time Temp Pulse Resp B/P (MAP) Pulse Ox O2 Delivery O2 Flow Rate FiO2 02/04/21 11:00 117 25 40 02/04/21 11:00 117 24 110/69 (83) 94 02/04/21 10:39 24 127/84 Mechanical Ventilator 65.0 40 02/04/21 10:00 105 24 125/87 (100) 100 02/04/21 09:15 99 23 117/78 (91) 96 02/04/21 09:00 90 22 110/71 (84) 98 02/04/21 08:42 94 22 40 02/04/21 08:00 Mechanical Ventilator 02/04/21 08:00 40 02/04/21 08:00 97.3 96 23 115/66 (82) 02/04/21 07:29 96 02/04/21 07:11 87 22 100 Mechanical Ventilator 40 86 22 40 02/04/21 07:00 90 22 101/66 (78) 100 02/04/21 06:30 88 21 128/85 (99) 02/04/21 06:15 97 23 122/86 (98) 100 02/04/21 06:00 89 22 112/79 (90) 02/04/21 06:00 22 117/60 Mechanical Ventilator 45 02/04/21 05:45 92 22 127/88 (101) 02/04/21 05:30 94 22 128/93 (105) 02/04/21 05:15 90 22 106/71 (83) 98 02/04/21 05:00 95 23 125/85 (98) 97 02/04/21 05:00 21 127/85 Mechanical Ventilator 45 02/04/21 04:45 103 23 106/67 (80) 02/04/21 04:30 98 23 110/70 (83) 02/04/21 04:15 100 22 142/92 (109) 02/04/21 04:00 99 02/04/21 04:00 40 02/04/21 04:00 21 132/78 Mechanical Ventilator 45 02/04/21 04:00 98.1 99 22 111/70 (84) 02/04/21 04:00 Mechanical Ventilator 02/04/21 03:45 86 22 127/87 (100) 91 02/04/21 03:30 89 22 109/70 (83) 90 02/04/21 03:30 88 22 98 Mechanical Ventilator 40 89 22 40 02/04/21 03:15 92 22 116/74 (88) 93 02/04/21 03:00 100 23 116/78 (91) 92 02/04/21 03:00 20 136/89 Mechanical Ventilator 45 02/04/21 02:45 103 24 113/74 (87) 90 02/04/21 02:30 108 25 112/70 (84) 91 02/04/21 02:15 100 23 128/80 (96) 95 02/04/21 02:00 111 23 123/83 (96) 93 02/04/21 02:00 20 119/67 Mechanical Ventilator 45 02/04/21 01:45 111 25 125/77 (93) 92 02/04/21 01:42 19 122/73 Mechanical Ventilator 45 02/04/21 01:30 101 22 117/70 (86) 90 02/04/21 01:15 85 22 109/73 (85) 92 02/04/21 01:15 85 22 109/73 (85) 92 02/04/21 01:00 20 118/70 Mechanical Ventilator 45 02/04/21 01:00 84 22 112/74 (87) 95 02/04/21 00:45 79 22 102/70 (81) 94 02/04/21 00:30 82 22 106/69 (81) 94 02/04/21 00:15 84 22 110/72 (85) 95 02/04/21 00:00 98.2 81 22 108/71 (83) 93 02/04/21 00:00 40 02/04/21 00:00 22 112/78 Mechanical Ventilator 45 02/04/21 00:00 Mechanical Ventilator 02/04/21 00:00 89 02/03/21 23:45 82 22 105/70 (82) 92 02/03/21 23:30 87 22 107/69 (82) 91 02/03/21 23:26 83 22 40 02/03/21 23:15 85 22 93/64 (74) 92 02/03/21 23:00 90 22 95/64 (74) 93 02/03/21 23:00 22 103/87 Mechanical Ventilator 45 02/03/21 22:45 91 20 97/59 (72) 94 02/03/21 22:30 86 22 54/27 (36) 89 02/03/21 22:15 89 22 158/85 (109) 90 02/03/21 22:00 20 162/85 Mechanical Ventilator 45 02/03/21 22:00 93 24 145/70 (95) 92 02/03/21 21:45 105 26 163/86 (111) 95 02/03/21 21:30 103 22 165/95 (118) 98 02/03/21 21:15 104 22 162/95 (117) 98 02/03/21 21:00 84 22 127/83 (98) 93 02/03/21 21:00 20 129/74 Mechanical Ventilator 45 02/03/21 20:45 94 22 131/83 (99) 94 02/03/21 20:30 86 22 123/79 (94) 93 02/03/21 20:15 82 22 131/79 (96) 93 02/03/21 20:00 Mechanical Ventilator 02/03/21 20:00 40 02/03/21 20:00 88 02/03/21 20:00 22 124/64 Endotracheal Tube 45 02/03/21 20:00 98.5 81 22 134/84 (101) 92 02/03/21 19:28 89 22 94 Mechanical Ventilator 40 90 22 40 02/03/21 19:00 90 21 131/77 (95) 94 02/03/21 19:00 21 131/77 Endotracheal Tube 45 02/03/21 18:00 22 130/76 Endotracheal Tube 45 02/03/21 18:00 81 22 130/76 (94) 90 02/03/21 17:00 98.8 86 22 108/71 (83) 91 02/03/21 17:00 22 108/71 Endotracheal Tube 45 02/03/21 16:30 89 22 40 02/03/21 16:00 Mechanical Ventilator 02/03/21 16:00 102 02/03/21 16:00 40 02/03/21 16:00 22 117/94 Endotracheal Tube 45 02/03/21 16:00 102 22 117/94 (102) 90 02/03/21 15:07 86 22 40 02/03/21 15:00 20 103/74 Endotracheal Tube 45 02/03/21 15:00 100 20 103/74 (84) 92 02/03/21 14:00 20 103/74 Endotracheal Tube 45 02/03/21 14:00 85 20 103/74 (84) 92 02/03/21 13:20 84 22 97 Mechanical Ventilator 40 91 22 40 02/03/21 13:00 98.9 71 22 135/85 (102) 97 02/03/21 13:00 22 135/85 Endotracheal Tube 45 02/03/21 12:00 87 22 113/76 (88) 93 02/03/21 12:00 Mechanical Ventilator 02/03/21 12:00 22 113/76 Endotracheal Tube 45 02/03/21 12:00 94 02/03/21 12:00 40 I&O Intake and Output 02/03/21 02/04/21 19:00 07:00 Intake Total 1085 ml 1229.000 ml Output Total 1030 ml 650 ml Balance 55 ml 579.000 ml Free Water 200 ml IV Total 165 ml 509.000 ml Tube Feeding 720 ml 720 ml Output Urine Total 1030 ml 650 ml # Bowel Movements 1 Dressing: saturated Cardiovascular: RSR Respiratory: decreased breath sounds Abdomen: soft, non-tender, present bowel sounds, non-distended Extremities: no edema, no tenderness, no cyanosis Laboratory Tests Test 02/04/21 00:15 02/04/21 04:01 POC Whole Blood Glucose 150 MG/DL (74-106) H White Blood Count 8.9 K/UL (4.8-10.8) Red Blood Count 3.85 M/UL (4.70-6.10) L Hemoglobin 11.1 G/DL (14.2-18.0) L Hematocrit 35.1 % (42.0-52.0) L Mean Corpuscular Volume 91 FL (80-99) Mean Corpuscular Hemoglobin 28.9 PG (27.0-31.0) Mean Corpuscular Hemoglobin Concent 31.6 G/DL (32.0-36.0) L Red Cell Distribution Width 16.1 % (11.6-14.8) H Platelet Count 350 K/UL (150-450) Mean Platelet Volume 7.3 FL (6.5-10.1) Neutrophils (%) (Auto) 64.1 % (45.0-75.0) Lymphocytes (%) (Auto) 24.8 % (20.0-45.0) Monocytes (%) (Auto) 8.1 % (1.0-10.0) Eosinophils (%) (Auto) 2.0 % (0.0-3.0) Basophils (%) (Auto) 0.9 % (0.0-2.0) Prothrombin Time 12.7 SEC (9.30-11.50) H Prothromb Time International Ratio 1.2 (0.9-1.1) H Sodium Level 139 MMOL/L (136-145) Potassium Level 3.9 MMOL/L (3.5-5.1) Chloride Level 103 MMOL/L (98-107) Carbon Dioxide Level 28 MMOL/L (21-32) Anion Gap 8 mmol/L (5-15) Blood Urea Nitrogen 7 mg/dL (7-18) Creatinine 0.6 MG/DL (0.55-1.30) Estimat Glomerular Filtration Rate > 60 mL/min (>60) Glucose Level 169 MG/DL (74-106) H Calcium Level 9.4 MG/DL (8.5-10.1) Phosphorus Level 4.7 MG/DL (2.5-4.9) Magnesium Level 1.8 MG/DL (1.8-2.4) Total Bilirubin 0.3 MG/DL (0.2-1.0) Aspartate Amino Transf (AST/SGOT) 16 U/L (15-37) Alanine Aminotransferase (ALT/SGPT) 19 U/L (12-78) Alkaline Phosphatase 111 U/L (46-116) C-Reactive Protein, Quantitative 15.0 mg/dL (0.00-0.90) H Pro-B-Type Natriuretic Peptide 638 pg/mL (0-125) H Total Protein 6.7 G/DL (6.4-8.2) Albumin 2.1 G/DL (3.4-5.0) L Globulin 4.6 g/dL Albumin/Globulin Ratio 0.5 (1.0-2.7) L Plan Problems: (1) COPD (chronic obstructive pulmonary disease) (2) Essential hypertension (3) Schizophrenia (4) Obesity (5) Diabetes mellitus type 2 in obese (6) History of hydrocephalus (7) Anticoagulant long-term use (8) Bipolar 1 disorder (9) History of deep venous thrombosis or pulmonary embolus (10) Acute hypercapnic respiratory failure (11) Sepsis Assessment & Plan: 60-year-old male Covid positive respiratory insufficiency and severe decline being prone intubated on vent support labs noted septic ill-appearing has been developing wound around the face from ET tube.Receiv ed report from RT pt is being proned and was observed to have developed a blood blister under vent tape on L cheek and L earlobe. Skin assessed and pt was observed to have a blood blister that is 50% de-capped,50% intact. Intact Blood Blister noted to L earlobe. Skin Barrier applied to affected areas. Optifoam Thin foam placed between vent anchor and pt's skin. Optifoam thin placed to R cheek under Vent tape, on Bridge of nose and both earlobes. Given patient's critical status current care plan and findings nutritional optimization is strongly encouraged Covid nutrition plan initiated. All Covid precautions are being taken. Imaging reviewed. Will follow with care plan. Thank you [facility] participation care Tx.Plan: Maintain Optifoam Thin foam to R and L cheeks,Bridge of Nose and Both Ears . Change every 7 days and prn.( May request Optifoam Thin from RT dept). APM/PEPE Mattress overlay DAILY ESTIMATED NEEDS: Needs based on Critical care, pulmonary, obese 73.7kg abw 22-28 kcals/kg 5961-3692 total kcals 1.2-2 g protein/kg 88-147 g total protein 25-30 mL/kg 3712-9934 total fluid mLs NUTRITION DIAGNOSIS: Altered nutrition related lab values r/t steroidal meds, clinical status as evidenced by febrile on adm (102.5), elevated BG (270 287) on solumedrol, elevated lipid panel (Triglycerides 333, Chol 370, LDL 150). CURRENT TF:Vital @30ml/hr, now Nepro @30 ENTERAL NUTRITION RECOMMENDATIONS: NEPRO @30ml/hr while supine to provide x8 hrs feeds: 360ml, 648 kcal, 29g pro, 262ml free H2O - Feed at rate best tolerated, currently not meeting est needs d/t proning and aspiration risk w/ supine feeds limited to 8hrs/day. - W/ reduced aspiration risk rec feedings to total Volume of 900ml/day of Nepro as medically able. - Monitor tolerance, position/HOB >30 degrees, hemodynamic stability and ability to increase to meet est kcal and pro needs. - With increase pressor support, rec trophic feeds of 10ml/hr for gut integrity. - When tolerating TF at goal add Prosource BID to better meet est pro needs. ADDITIONAL RECOMMENDATIONS: 1) Now intubated, TF recs above when off proning (8hrs feeds) 2) Obtain calibrated bedscale wts 3) HgA1C/ elevated BG Need for niss while on D5 4) Lytes daily; replete as needed 5) Monitor triglycerides, TF tolerance, hemodynamic stability. (12) Respiratory failure with hypoxia Assessment & Plan: cont weaning vent wean pressors not ready for trach off pressors improving HD stable plan trach soon as unable to extubate (13) Pneumonia due to COVID-19 virus (14) Hyperkalemia (15) DMII (diabetes mellitus, type 2) Ki Strong Feb 04, 2021 11:35
--- NOTE | 2021-02-04 11:36 | Pre-Procedure Note/Attestation ---
Pre-Procedure Note/Attestation Complete Prior to Procedure Procedure Narrative: tracheostomy Indications for Procedure Pre-Operative Diagnosis: respiratory insufficiency Attestation I attest that I discussed the nature of the procedure; its benefits; risks and complications; and alternatives (and the risks and benefits of such alternatives), prior to the procedure, with the patient (or the patient's legal client account representative). I attest that, if there was a reasonable possibility of needing a blood transfusion, the patient (or the patient's legal client account representative) was given the [facility] standardized written summary, pursuant to the [place] Blood Safety Act ([place] Health and Safety Code # 1645, as amended). I attest that I re-evaluated the patient just prior to the surgery and that there has been no change in the patient's H&P, except as documented below: Ki Strong Feb 04, 2021 11:36
--- NOTE | 2021-02-04 19:10 | Internal Med Progress Note ---
Subjective Date of Service: Feb 04, 2021 Physician Name Vickey Brown Attending Physician Geovanny Bradley MD Current Medications Medications (Trade) Dose Ordered Sig/Johnny Route PRN Reason Start Time Stop Time Status Last Admin Dose Admin Acetaminophen (Tylenol) 650 mg Q6H PRN NG Temp >100.5 01/09/21 09:15 02/08/21 09:14 01/26/21 02:05 Acetaminophen (Tylenol) 650 mg Q6H PRN NG Mild Pain (Pain Scale 1-3) 01/09/21 09:15 02/08/21 09:14 02/03/21 04:10 Acetylcysteine (Mucomyst) 200 mg Q6HRT N 02/03/21 13:00 05/04/21 12:59 02/04/21 13:02 Albuterol/ Ipratropium (Albuterol/ Ipratropium) 3 ml Q6HRT N 02/03/21 13:00 02/08/21 12:59 02/04/21 13:02 Chlorhexidine Gluconate (Myranda-Hex 2%) 1 applic DAILY@2000 TOPIC 01/29/21 20:00 04/29/21 19:59 02/03/21 21:07 Dextrose (Dextrose 50%) 25 ml Q30M PRN IV Hypoglycemia 01/06/21 23:45 04/06/21 23:44 Dextrose (Dextrose 50%) 50 ml Q30M PRN IV Hypoglycemia 01/06/21 23:45 04/06/21 23:44 Docosanol (Abreva) 1 gm FIVE TIMES A DAY TP 01/29/21 20:00 04/29/21 19:59 02/04/21 16:24 Fentanyl Citrate 250 ml @ 1 mls/hr Q24H IV 02/04/21 11:00 02/06/21 10:59 02/04/21 10:39 Insulin Aspart (NovoLOG) EVERY 6 HOURS SUBQ 01/09/21 12:00 04/04/21 16:29 02/04/21 17:16 Lansoprazole (Prevacid) 30 mg DAILY GT 01/24/21 09:00 02/15/21 08:59 02/04/21 08:54 Midodrine (Pro-Amatine) 10 mg Q8HR ORAL 01/20/21 14:00 04/20/21 13:59 02/04/21 14:20 Potassium Chloride (K-Dur) 20 meq TWICE A DAY NG 01/20/21 13:00 04/20/21 12:59 02/04/21 17:09 Quetiapine Fumarate (SEROqueL) 100 mg Q12HR ORAL 01/20/21 15:00 03/06/21 14:59 02/04/21 08:55 Valproic Acid (Depakene) 500 mg Q12HR GT 01/22/21 21:00 02/21/21 20:59 02/04/21 08:55 Vancomycin HCl 250 ml @ 166.667 mls/hr Q8H IVPB 02/01/21 09:00 02/06/21 08:59 02/04/21 17:08 [facility] 1 ea DAILY PRN MISC Per rx protocol 01/25/21 08:15 02/24/21 08:14 Warfarin Sodium (Coumadin per pharmacy) 1 ea DAILY PRN MISC Per rx protocol 02/02/21 11:45 03/04/21 11:44 Hold Allergies: Coded Allergies: No Known Allergies (Unverified , 01/02/21) ROS Limited/Unobtainable: Yes Subjective 60 YO M admitted with shortness of breath. Now respiratory failure. Cover for Int Med-DR Bradley. ICU. Intubated and sedated Objective Last Vital Signs Date Time Temp Pulse Resp B/P (MAP) Pulse Ox O2 Delivery O2 Flow Rate FiO2 02/04/21 18:15 90 22 98/65 (76) 94 02/04/21 18:00 Mechanical Ventilator 40 02/04/21 16:00 99.1 02/04/21 10:39 65.0 Laboratory Tests Test 02/04/21 00:15 02/04/21 04:01 POC Whole Blood Glucose 150 MG/DL (74-106) H White Blood Count 8.9 K/UL (4.8-10.8) Red Blood Count 3.85 M/UL (4.70-6.10) L Hemoglobin 11.1 G/DL (14.2-18.0) L Hematocrit 35.1 % (42.0-52.0) L Mean Corpuscular Volume 91 FL (80-99) Mean Corpuscular Hemoglobin 28.9 PG (27.0-31.0) Mean Corpuscular Hemoglobin Concent 31.6 G/DL (32.0-36.0) L Red Cell Distribution Width 16.1 % (11.6-14.8) H Platelet Count 350 K/UL (150-450) Mean Platelet Volume 7.3 FL (6.5-10.1) Neutrophils (%) (Auto) 64.1 % (45.0-75.0) Lymphocytes (%) (Auto) 24.8 % (20.0-45.0) Monocytes (%) (Auto) 8.1 % (1.0-10.0) Eosinophils (%) (Auto) 2.0 % (0.0-3.0) Basophils (%) (Auto) 0.9 % (0.0-2.0) Prothrombin Time 12.7 SEC (9.30-11.50) H Prothromb Time International Ratio 1.2 (0.9-1.1) H Sodium Level 139 MMOL/L (136-145) Potassium Level 3.9 MMOL/L (3.5-5.1) Chloride Level 103 MMOL/L (98-107) Carbon Dioxide Level 28 MMOL/L (21-32) Anion Gap 8 mmol/L (5-15) Blood Urea Nitrogen 7 mg/dL (7-18) Creatinine 0.6 MG/DL (0.55-1.30) Estimat Glomerular Filtration Rate > 60 mL/min (>60) Glucose Level 169 MG/DL (74-106) H Calcium Level 9.4 MG/DL (8.5-10.1) Phosphorus Level 4.7 MG/DL (2.5-4.9) Magnesium Level 1.8 MG/DL (1.8-2.4) Total Bilirubin 0.3 MG/DL (0.2-1.0) Aspartate Amino Transf (AST/SGOT) 16 U/L (15-37) Alanine Aminotransferase (ALT/SGPT) 19 U/L (12-78) Alkaline Phosphatase 111 U/L (46-116) C-Reactive Protein, Quantitative 15.0 mg/dL (0.00-0.90) H Pro-B-Type Natriuretic Peptide 638 pg/mL (0-125) H Total Protein 6.7 G/DL (6.4-8.2) Albumin 2.1 G/DL (3.4-5.0) L Globulin 4.6 g/dL Albumin/Globulin Ratio 0.5 (1.0-2.7) L Microbiology Date/Time Source Procedure Growth Status 02/02/21 17:45 Blood Blood Culture - Preliminary NO GROWTH AFTER 24 HOURS Resulted 02/02/21 17:30 Blood Blood Culture - Preliminary Gram Positive Cocci Resulted Intake and Output 02/03/21 02/04/21 19:00 07:00 Intake Total 1085 ml 1259.000 ml Output Total 1030 ml 650 ml Balance 55 ml 609.000 ml Free Water 200 ml IV Total 165 ml 539.000 ml Tube Feeding 720 ml 720 ml Output Urine Total 1030 ml 650 ml # Bowel Movements 1 Objective Objective General: awake, responsive , confused. HEENT: NCAT, sclera anicteric, PERRL, EOMI. Neck: Supple, no significant jugular venous distention, Lungs: mech vent; decreased air at the bases, occasional crackles, no Wheeze. Heart: Regular rate and rhythm, normal S1/S2, no murmurs Abdomen: soft, nontender, nondistended. Normoactive bowel sound, obesity. / Rectal: Refused and deferred. Extremities: Left LE: No Cyanosis , clubbing or edema. Right LE AKA. Neuro: A&O x 2, Able to move all extremities Skin: warm, no rashes or lesions. Assessment/Plan Assessment/Plan Assessment/Plan Assessment/Plan (1) Pneumonia due to COVID-19 virus ICD Codes: U07.1 - COVID-19; J12.82 - Pneumonia due to coronavirus disease 2019 SNOMED: 844842311710207855 (2) Acute hypercapnic respiratory failure ICD Codes: J96.02 - Acute respiratory failure with hypercapnia SNOMED: 671442752 (3) Respiratory failure with hypoxia ICD Codes: J96.91 - Respiratory failure, unspecified with hypoxia SNOMED: 18857029726028107 Qualifiers: Qualified Codes: J96.01 - Acute respiratory failure with hypoxia (4) COPD (chronic obstructive pulmonary disease) ICD Codes: J44.9 - Chronic obstructive pulmonary disease, unspecified SNOMED: 89502023 (5) History of deep venous thrombosis or pulmonary embolus SNOMED: 224925887 (6) Obesity ICD Codes: E66.9 - Obesity, unspecified SNOMED: 360970302, 793568851 (7) Essential hypertension ICD Codes: I10 - Essential (primary) hypertension SNOMED: 31364852 (8) Diabetes mellitus type 2 in obese ICD Codes: E11.69 - Type 2 diabetes mellitus with other specified complication; E66.9 - Obesity, unspecified SNOMED: 57676471 (9) History of hydrocephalus ICD Codes: Z86.69 - Personal history of other diseases of the nervous system and sense organs SNOMED: 622291858 (10) Schizophrenia ICD Codes: F20.9 - Schizophrenia, unspecified SNOMED: 19046820 (11) Bipolar 1 disorder ICD Codes: F31.9 - Bipolar disorder, unspecified SNOMED: 107736316 (12) Anticoagulant long-term use ICD Codes: Z79.01 - [facility] (current) use of anticoagulants SNOMED: 943722598 13. Sepsis=gram pos cocci 14. thrush Assessment/Plan: Optimize pulmonary hygiene/mobilize as tolerated Non Rebreather mask>BIPAP>intubated S/P Remdesivir IV S/P Solu-Medrol 40 mg IV twice a day. Abx = vanco F/U Cx's Monitor volumes and renal function DVT Px: Coumadin DC IV fluid Start diet Monitor blood glucose level closely. On levophed, fentanyl and propofol drips Pulmonary=Dr Luis ID=Dr Gomez Psych consult=Dr Gallegos; continue seroquel continue nystatin await tracheostomy Optimize pulmonary hygiene/mobilize as tolerated Completed Remdesivir IV Abx: Vanco IV and Zosyn IV F/U Cx's Monitor volumes and renal function DVT Px: Coumadin Monitor blood glucose level closely. FULL Code Tolerated Tube feeding @ 60 cc/hr. Vickey Brown MD Feb 04, 2021 19:10
[2021-02-04] MEDS: Dyna-Hex 2% Top Sol 2oz TOPIC SCH (21:05)
[2021-02-05] VITALS (44 sets, daily range): BP systolic 85–138; BP diastolic 53–91
[2021-02-05] MEDS: Vancomycin 1.25gm/250ml Premix IVPB SCH ×3 (01:00→17:45)
--- NOTE | 2021-02-05 01:43 | Pulmonology Progress Note ---
Subjective ROS Limited/Unobtainable: Yes Allergies: Coded Allergies: No Known Allergies (Unverified , 01/02/21) Objective Last 24 Hour Vital Signs Date Time Temp Pulse Resp B/P (MAP) Pulse Ox O2 Delivery O2 Flow Rate FiO2 02/05/21 00:00 Mechanical Ventilator 02/05/21 00:00 22 117/72 Mechanical Ventilator 40 02/05/21 00:00 84 02/05/21 00:00 98.7 89 21 123/77 (92) 96 02/05/21 00:00 40 02/04/21 23:00 22 121/72 Mechanical Ventilator 40 02/04/21 23:00 82 22 119/75 (90) 91 02/04/21 22:49 78 22 40 02/04/21 22:00 22 126/70 Mechanical Ventilator 40 02/04/21 22:00 85 22 135/73 (93) 98 02/04/21 21:00 22 129/89 Mechanical Ventilator 40 02/04/21 21:00 89 22 127/86 (100) 97 02/04/21 20:00 99.0 96 24 98/63 (75) 95 02/04/21 20:00 40 02/04/21 20:00 22 90/60 Mechanical Ventilator 40 02/04/21 20:00 Mechanical Ventilator 02/04/21 20:00 90 02/04/21 19:34 22 98/65 Mechanical Ventilator 65.0 40 02/04/21 19:33 22 98/54 Mechanical Ventilator 40 02/04/21 19:32 89 22 93 Mechanical Ventilator 40 90 22 40 02/04/21 19:00 86 22 92/59 (70) 94 02/04/21 19:00 22 98/65 Mechanical Ventilator 40 02/04/21 18:15 90 22 98/65 (76) 94 02/04/21 18:00 22 98/65 Mechanical Ventilator 40 02/04/21 17:00 22 95/62 Mechanical Ventilator 40 02/04/21 17:00 98 22 93/65 (74) 93 02/04/21 16:05 95 02/04/21 16:00 40 02/04/21 16:00 99.1 99 19 96/68 (77) 92 02/04/21 16:00 19 98/61 Mechanical Ventilator 40 02/04/21 16:00 Mechanical Ventilator 02/04/21 15:30 98 22 40 02/04/21 15:00 22 123/75 Mechanical Ventilator 40 02/04/21 15:00 96 22 97/61 (73) 92 02/04/21 14:00 104 21 100/62 (75) 93 02/04/21 14:00 21 100/62 Mechanical Ventilator 40 02/04/21 13:15 102 22 97 Mechanical Ventilator 40 103 22 40 02/04/21 13:00 104 22 108/62 (77) 95 02/04/21 13:00 22 101/63 Mechanical Ventilator 40 02/04/21 12:00 40 02/04/21 12:00 98.9 104 22 95/54 (68) 93 02/04/21 12:00 22 95/54 Mechanical Ventilator 40 02/04/21 12:00 Mechanical Ventilator 02/04/21 11:41 104 02/04/21 11:00 117 25 40 02/04/21 11:00 117 24 110/69 (83) 94 02/04/21 11:00 24 110/69 Mechanical Ventilator 40 02/04/21 10:39 24 127/84 Mechanical Ventilator 65.0 40 02/04/21 10:00 24 125/87 Mechanical Ventilator 40 02/04/21 10:00 105 24 125/87 (100) 100 02/04/21 09:15 99 23 117/78 (91) 96 02/04/21 09:00 22 110/71 Mechanical Ventilator 40 02/04/21 09:00 90 22 110/71 (84) 98 02/04/21 08:42 94 22 40 02/04/21 08:00 23 115/66 Mechanical Ventilator 40 02/04/21 08:00 Mechanical Ventilator 02/04/21 08:00 40 02/04/21 08:00 97.3 96 23 115/66 (82) 02/04/21 07:29 96 02/04/21 07:11 87 22 100 Mechanical Ventilator 40 86 22 40 02/04/21 07:00 90 22 101/66 (78) 100 02/04/21 07:00 22 101/66 Mechanical Ventilator 40 02/04/21 06:30 88 21 128/85 (99) 02/04/21 06:15 97 23 122/86 (98) 100 02/04/21 06:00 89 22 112/79 (90) 02/04/21 06:00 22 117/60 Mechanical Ventilator 45 02/04/21 05:45 92 22 127/88 (101) 02/04/21 05:30 94 22 128/93 (105) 02/04/21 05:15 90 22 106/71 (83) 98 02/04/21 05:00 95 23 125/85 (98) 97 02/04/21 05:00 21 127/85 Mechanical Ventilator 45 02/04/21 04:45 103 23 106/67 (80) 02/04/21 04:30 98 23 110/70 (83) 02/04/21 04:15 100 22 142/92 (109) 02/04/21 04:00 99 02/04/21 04:00 40 02/04/21 04:00 21 132/78 Mechanical Ventilator 45 02/04/21 04:00 98.1 99 22 111/70 (84) 02/04/21 04:00 Mechanical Ventilator 02/04/21 03:45 86 22 127/87 (100) 91 02/04/21 03:30 89 22 109/70 (83) 90 02/04/21 03:30 88 22 98 Mechanical Ventilator 40 89 22 40 02/04/21 03:15 92 22 116/74 (88) 93 02/04/21 03:00 100 23 116/78 (91) 92 02/04/21 03:00 20 136/89 Mechanical Ventilator 45 02/04/21 02:45 103 24 113/74 (87) 90 02/04/21 02:30 108 25 112/70 (84) 91 02/04/21 02:15 100 23 128/80 (96) 95 02/04/21 02:00 111 23 123/83 (96) 93 02/04/21 02:00 20 119/67 Mechanical Ventilator 45 02/04/21 01:45 111 25 125/77 (93) 92 02/04/21 01:42 19 122/73 Mechanical Ventilator 45 Intake and Output 02/04/21 02/05/21 19:00 07:00 Intake Total 1596.667 ml 465 ml Output Total 1875 ml 600 ml Balance -278.333 ml -135 ml Free Water 100 ml IV Total 776.667 ml 165 ml Tube Feeding 720 ml 240 ml Other 60 ml Output Urine Total 1875 ml 600 ml Microbiology Date/Time Source Procedure Growth Status 02/02/21 17:45 Blood Blood Culture - Preliminary NO GROWTH AFTER 24 HOURS Resulted 02/02/21 17:30 Blood Blood Culture - Preliminary Gram Positive Cocci Resulted Laboratory Tests 02/04/21 04:01: White Blood Count 8.9, Red Blood Count 3.85L, Hemoglobin 11.1L, Hematocrit 35.1L , Mean Corpuscular Volume 91, Mean Corpuscular Hemoglobin 28.9, Mean Corpuscular Hemoglobin Concent 31.6L, Red Cell Distribution Width 16.1H, Platelet Count 350, Mean Platelet Volume 7.3, Neutrophils (%) (Auto) 64.1, Lymphocytes (%) (Auto) 24.8, Monocytes (%) (Auto) 8.1, Eosinophils (%) (Auto) 2.0, Basophils (%) (Auto) 0.9, Prothrombin Time 12.7H, Prothromb Time International Ratio 1.2H, Sodium Level 139, Potassium Level 3.9, Chloride Level 103, Carbon Dioxide Level 28, Anion Gap 8, Blood Urea Nitrogen 7, Creatinine 0.6, Estimat Glomerular Filtration Rate > 60, Glucose Level 169H, Calcium Level 9.4, Phosphorus Level 4.7, Magnesium Level 1.8, Total Bilirubin 0.3, Aspartate Amino Transf (AST/SGOT) 16, Alanine Aminotransferase (ALT/SGPT) 19, Alkaline Phosphatase 111, C-Reactive Protein, Quantitative 15.0H, Pro-B-Type Natriuretic Peptide 638H, Total Protein 6.7, Albumin 2.1L, Globulin 4.6, Albumin/Globulin Ratio 0.5L Current Medications Medications (Trade) Dose Ordered Sig/Johnny Route PRN Reason Start Time Stop Time Status Last Admin Dose Admin Acetaminophen (Tylenol) 650 mg Q6H PRN NG Temp >100.5 01/09/21 09:15 02/08/21 09:14 01/26/21 02:05 Acetaminophen (Tylenol) 650 mg Q6H PRN NG Mild Pain (Pain Scale 1-3) 01/09/21 09:15 02/08/21 09:14 02/03/21 04:10 Acetylcysteine (Mucomyst) 200 mg Q6HRT HHN 02/03/21 13:00 05/04/21 12:59 02/04/21 19:32 Albuterol/ Ipratropium (Albuterol/ Ipratropium) 3 ml Q6HRT HHN 02/03/21 13:00 02/08/21 12:59 02/04/21 19:31 Chlorhexidine Gluconate (Myranda-Hex 2%) 1 applic DAILY@2000 TOPIC 01/29/21 20:00 04/29/21 19:59 02/04/21 21:05 Dextrose (Dextrose 50%) 25 ml Q30M PRN IV Hypoglycemia 01/06/21 23:45 04/06/21 23:44 Dextrose (Dextrose 50%) 50 ml Q30M PRN IV Hypoglycemia 01/06/21 23:45 04/06/21 23:44 Docosanol (Abreva) 1 gm FIVE TIMES A DAY TP 01/29/21 20:00 04/29/21 19:59 02/04/21 19:00 Fentanyl Citrate 250 ml @ 1 mls/hr Q24H IV 02/04/21 11:00 02/06/21 10:59 02/04/21 19:34 Insulin Aspart (NovoLOG) EVERY 6 HOURS SUBQ 01/09/21 12:00 04/04/21 16:29 02/04/21 17:16 Lansoprazole (Prevacid) 30 mg DAILY GT 01/24/21 09:00 02/15/21 08:59 02/04/21 08:54 Midodrine (Pro-Amatine) 10 mg Q8HR ORAL 01/20/21 14:00 04/20/21 13:59 02/04/21 21:05 Potassium Chloride (K-Dur) 20 meq TWICE A DAY NG 01/20/21 13:00 04/20/21 12:59 02/04/21 17:09 Quetiapine Fumarate (SEROqueL) 100 mg Q12HR ORAL 01/20/21 15:00 03/06/21 14:59 02/04/21 21:05 Valproic Acid (Depakene) 500 mg Q12HR GT 01/22/21 21:00 02/21/21 20:59 02/04/21 21:06 Vancomycin HCl 250 ml @ 166.667 mls/hr Q8H IVPB 02/01/21 09:00 02/06/21 08:59 02/04/21 17:08 Vancomycin HCl (Vanco pharmacy to dose) 1 ea DAILY PRN MISC Per rx protocol 01/25/21 08:15 02/24/21 08:14 Warfarin Sodium (Coumadin per pharmacy) 1 ea DAILY PRN MISC Per rx protocol 02/02/21 11:45 03/04/21 11:44 Hold Assessment/Plan Assessment/Plan Pulmonary CCM Progress Note Seen on 02/04/2021 HPI Patient is a 60 man with prior h/o COPD, CPS/bipolar DO, 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, DM2, HTN and hydrocephalus Physical Exam Deferred Covid19 Vital Signs noted Laboratory Tests noted Imaging noted Height (Feet): 5 Height (Inches): 5.00 Weight (Pounds): 233 Medications Medications noted Assessment/Plan Problem List: (1) Pneumonia due to COVID-19 virus ICD Codes: U07.1 - COVID-19; J12.82 - Pneumonia due to coronavirus disease 2018 SNOMED: 539259347598881972 (2) Acute hypercapnic respiratory failure ICD Codes: J96.02 - Acute respiratory failure with hypercapnia SNOMED: 343422487 (3) Respiratory failure with hypoxia ICD Codes: J96.91 - Respiratory failure, unspecified with hypoxia SNOMED: 41722242874065471 Qualifiers: Qualified Codes: J96.01 - Acute respiratory failure with hypoxia (4) COPD (chronic obstructive pulmonary disease) ICD Codes: J44.9 - Chronic obstructive pulmonary disease, unspecified SNOMED: 20193749 (5) History of deep venous thrombosis or pulmonary embolus SNOMED: 935835343 (6) Obesity ICD Codes: E66.9 - Obesity, unspecified SNOMED: 832036282, 699794336 (7) Essential hypertension ICD Codes: I10 - Essential (primary) hypertension SNOMED: 48690734 (8) Diabetes mellitus type 2 in obese ICD Codes: E11.69 - Type 2 diabetes mellitus with other specified complication; E66.9 - Obesity, unspecified SNOMED: 79646607 (9) History of hydrocephalus ICD Codes: Z86.69 - Personal history of other diseases of the nervous system and sense organs SNOMED: 807625013 (10) Schizophrenia ICD Codes: F20.9 - Schizophrenia, unspecified SNOMED: 71230414 (11) Bipolar 1 disorder ICD Codes: F31.9 - Bipolar disorder, unspecified SNOMED: 211075383 (12) Anticoagulant long-term use ICD Codes: Z79.01 - halfway (current) use of anticoagulants SNOMED: 479061324 Assessment/Plan: ACVC - adjust PRN Adjust FiO2 to keep SaO2 > 92% Wean as tolerated Pressors PRN Sedation PRN HFA's ID recs REM completed per ID AB perID Weaned off SM Abx per ID F/U Cx's Monitor volumes and renal function,diuresis per Renal DVT Px: Coumadin TF when not proned FC Will need tracheostomy - did not tolerate weaning Seen on 02/04/2021 Anuel Luis MD Feb 05, 2021 01:43
[2021-02-05] MEDS: Acetylcysteine 20% Soln 4ml HHN SCH ×5 (03:11→23:18)
[2021-02-05] MEDS: Albuterol/Ipratropium 3ml neb HHN SCH ×5 (03:11→23:18)
[2021-02-05] MEDS ORDERED: LORazepam Inj 2mg/ml 1ml IV PRN (03:15)
[2021-02-05] MEDS: fentaNYL 2500mcg/NS 250ml 250 ML IV SCH ×3 (03:17→19:54)
[2021-02-05 05:09] LABS: BASOPHILS % (AUTO) 1.2 % (0.0-2.0); EOSINOPHILS % (AUTO) 1.2 % (0.0-3.0); HEMOGLOBIN 12.1 G/DL (14.2-18.0); LYMPHOCYTES % (AUTO) 21.7 % (20.0-45.0); MEAN CORPUSCULAR VOLUME 91 FL (80-99); MONOCYTES % (AUTO) 6.1 % (1.0-10.0); NEUTROPHILS % (AUTO) 69.9 % (45.0-75.0); PLATELET COUNT 458 K/UL (150-450); RED BLOOD COUNT 4.19 M/UL (4.70-6.10); RED CELL DISTRIBUTION WIDTH 16.4 % (11.6-14.8); WHITE BLOOD COUNT 13.2 K/UL (4.8-10.8)
[2021-02-05 05:16] LABS: ALANINE AMINOTRANSFERASE 21 U/L (12-78); ALBUMIN 2.4 G/DL (3.4-5.0); ALBUMIN/GLOBULIN RATIO 0.5 (1.0-2.7); ALKALINE PHOSPHATASE 128 U/L (46-116); ANION GAP 10 mmol/L (5-15); ASPARTATE AMINO TRANSFERASE 12 U/L (15-37); BILIRUBIN,TOTAL 0.3 MG/DL (0.2-1.0); BLOOD UREA NITROGEN 6 mg/dL (7-18); CALCIUM 9.3 MG/DL (8.5-10.1); CARBON DIOXIDE 27 MMOL/L (21-32); CHLORIDE 100 MMOL/L (98-107); CREATININE 0.7 MG/DL (0.55-1.30); SODIUM 137 MMOL/L (136-145)
[2021-02-05 05:18] LABS: INR 1.1 (0.9-1.1)
[2021-02-05] MEDS: NovoLOG Insulin Flexpen SUBQ SCH ×4 (05:58→18:00)
[2021-02-05] MEDS: Midodrine 10mg tab ORAL SCH ×3 (06:00→21:09)
[2021-02-05] MEDS: Abreva 10% cream 2gm TP SCH ×5 (07:40→18:47)
--- NOTE | 2021-02-05 08:11 | Infectious Diseases Prog Note ---
Assessment/Plan 60yo M with: Septic SHock Receurrent Gram postiive bacteremia r/o gentry infection -01/25 Bcx / sets GPC clustesr Staph epi bacteremia ? infected fem line , Sp removal 02/01 01/10 BCx 12/01 +Staph epi 01/13 BCx Neg 01/25 BCx CoNS 2/2 01/28 BCx - CoNS /2 01/31/21 BCx - NGTD 02/02/21 BCx - 12/01 GPC 02/04/21 BCx - NGTD COVID pna, severe Acute hypoxia 01/01 COVID pna >> intubated 01/06- 50% FIo2 Febrile to 103; imporving Normal WBC Elevated AST 51 01/01 Tested positive for COVID at [facility] 01/02 COVID PCR positive 01/02 BCx NTD CXR: Multifocal pna MRSA nares neg 01/06 Intubated in ICU CXR: 1. Appropriately positioned endotracheal and enteric tubes. 2. Stable bilateral airspace disease. 01/07 Resp cx +Yasmine albicans (colonizer) 01/11 CXR: Interval improved bilateral lung aeration. Bibasilar infiltrates/atelectasis. Cr 1.1 PICC placement HIV screen neg PMH: DM2 COPD HTN SNF resident PICC placed 01/30/21 Plan: Cont Vancomycin # 14 Will be following the WBCs Repeat Blood Cx Monitor temps 02/01/21 SP Zosyn #7 01/22/21 steroids #19, on methylpred 20 IV q12 - defer course to Pulm/Primary, now tapering 01/19/21 SP Zosyn #10 01/14 SP vanco IV #1 01/09 SP CTX #7 01/07 SP azithro #5, RDV #5 This institution does not have access to convalescent plasma and only recommended to give in setting of clinical trial Monitor temp curve, hemodynamics Monitor resp status Rpt Blood Cx 2D echo D/w RN Thank you for this consult. [facility] will continue to follow. Subjective Allergies: Coded Allergies: No Known Allergies (Unverified , 01/02/21) Afebrile Remains on Vent 40% O2 Mild Leukocytosis today Objective Last 24 Hour Vital Signs Date Time Temp Pulse Resp B/P (MAP) Pulse Ox O2 Delivery O2 Flow Rate FiO2 02/05/21 07:15 93 21 103/67 (79) 96 02/05/21 07:00 103 24 117/73 (88) 93 02/05/21 07:00 22 105/56 Mechanical Ventilator 40 02/05/21 06:45 87 19 112/66 (81) 94 02/05/21 06:30 88 22 103/63 (76) 95 02/05/21 06:15 97 14 99/64 (76) 96 02/05/21 06:00 98 21 110/66 (81) 96 02/05/21 06:00 21 110/60 Mechanical Ventilator 40 02/05/21 05:45 110 25 120/67 (84) 88 02/05/21 05:30 103 22 89/66 (74) 100 02/05/21 05:15 109 19 106/69 (81) 100 02/05/21 05:00 24 125/74 Mechanical Ventilator 40 02/05/21 05:00 113 24 125/74 (91) 100 02/05/21 04:45 116 22 112/86 (95) 100 02/05/21 04:30 128 27 106/86 (93) 91 02/05/21 04:25 95 22 117/72 98 02/05/21 04:15 119 22 119/75 (90) 97 02/05/21 04:00 99.0 91 21 114/69 (84) 97 02/05/21 04:00 95 02/05/21 04:00 Mechanical Ventilator 02/05/21 04:00 21 114/69 Mechanical Ventilator 40 02/05/21 04:00 40 02/05/21 03:55 88 22 117/72 98 02/05/21 03:45 93 21 114/77 (89) 95 02/05/21 03:30 91 21 128/76 (93) 93 02/05/21 03:17 22 117/72 Mechanical Ventilator 65.0 40 02/05/21 03:15 92 18 109/77 (88) 96 02/05/21 03:11 88 23 98 Mechanical Ventilator 40 104 22 40 02/05/21 03:00 90 17 122/67 (85) 95 02/05/21 02:45 89 17 124/75 (91) 96 02/05/21 02:30 87 18 138/73 (94) 96 02/05/21 02:15 84 23 117/83 (94) 96 02/05/21 02:00 19 113/79 Mechanical Ventilator 40 02/05/21 02:00 80 19 113/79 (90) 95 02/05/21 01:45 80 22 117/77 (90) 95 02/05/21 01:30 79 22 116/77 (90) 96 02/05/21 01:15 83 20 129/88 (102) 98 02/05/21 01:00 82 18 129/91 (104) 99 02/05/21 01:00 19 129/91 Mechanical Ventilator 40 02/05/21 01:00 18 129/91 Mechanical Ventilator 40 02/05/21 00:00 Mechanical Ventilator 02/05/21 00:00 22 117/72 Mechanical Ventilator 40 02/05/21 00:00 84 02/05/21 00:00 98.7 89 21 123/77 (92) 96 02/05/21 00:00 40 02/04/21 23:00 22 121/72 Mechanical Ventilator 40 02/04/21 23:00 82 22 119/75 (90) 91 02/04/21 22:49 78 22 40 02/04/21 22:00 22 126/70 Mechanical Ventilator 40 02/04/21 22:00 85 22 135/73 (93) 98 02/04/21 21:00 22 129/89 Mechanical Ventilator 40 02/04/21 21:00 89 22 127/86 (100) 97 02/04/21 20:00 99.0 96 24 98/63 (75) 95 02/04/21 20:00 40 02/04/21 20:00 22 90/60 Mechanical Ventilator 40 02/04/21 20:00 Mechanical Ventilator 02/04/21 20:00 90 02/04/21 19:34 22 98/65 Mechanical Ventilator 65.0 40 02/04/21 19:33 22 98/54 Mechanical Ventilator 40 02/04/21 19:32 89 22 93 Mechanical Ventilator 40 90 22 40 02/04/21 19:00 86 22 92/59 (70) 94 02/04/21 19:00 22 98/65 Mechanical Ventilator 40 02/04/21 18:15 90 22 98/65 (76) 94 02/04/21 18:00 22 98/65 Mechanical Ventilator 40 02/04/21 17:00 22 95/62 Mechanical Ventilator 40 02/04/21 17:00 98 22 93/65 (74) 93 02/04/21 16:05 95 02/04/21 16:00 40 02/04/21 16:00 99.1 99 19 96/68 (77) 92 02/04/21 16:00 19 98/61 Mechanical Ventilator 40 02/04/21 16:00 Mechanical Ventilator 02/04/21 15:30 98 22 40 02/04/21 15:00 22 123/75 Mechanical Ventilator 40 02/04/21 15:00 96 22 97/61 (73) 92 02/04/21 14:00 104 21 100/62 (75) 93 02/04/21 14:00 21 100/62 Mechanical Ventilator 40 02/04/21 13:15 102 22 97 Mechanical Ventilator 40 103 22 40 02/04/21 13:00 104 22 108/62 (77) 95 02/04/21 13:00 22 101/63 Mechanical Ventilator 40 02/04/21 12:00 40 02/04/21 12:00 98.9 104 22 95/54 (68) 93 02/04/21 12:00 22 95/54 Mechanical Ventilator 40 02/04/21 12:00 Mechanical Ventilator 02/04/21 11:41 104 02/04/21 11:00 117 25 40 02/04/21 11:00 117 24 110/69 (83) 94 02/04/21 11:00 24 110/69 Mechanical Ventilator 40 02/04/21 10:39 24 127/84 Mechanical Ventilator 65.0 40 02/04/21 10:00 24 125/87 Mechanical Ventilator 40 02/04/21 10:00 105 24 125/87 (100) 100 02/04/21 09:15 99 23 117/78 (91) 96 02/04/21 09:00 22 110/71 Mechanical Ventilator 40 02/04/21 09:00 90 22 110/71 (84) 98 02/04/21 08:42 94 22 40 Height (Feet): 5 Height (Inches): 5.00 Weight (Pounds): 233 Gen: NAD on Vent 40% O2 HEENT: NCAT, ETT, OGT Pulm: BL chest rise, RRR Skin: No visible rashes Neuro: Not following Lines STEPHANIE PICC lines in place Microbiology Date/Time Source Procedure Growth Status 02/02/21 17:45 Blood Blood Culture - Preliminary NO GROWTH AFTER 24 HOURS Resulted 02/02/21 17:30 Blood Blood Culture - Preliminary Gram Positive Cocci Resulted Laboratory Tests Test 02/05/21 03:00 White Blood Count 13.2 K/UL (4.8-10.8) H Red Blood Count 4.19 M/UL (4.70-6.10) L Hemoglobin 12.1 G/DL (14.2-18.0) L Hematocrit 38.0 % (42.0-52.0) L Mean Corpuscular Volume 91 FL (80-99) Mean Corpuscular Hemoglobin 28.9 PG (27.0-31.0) Mean Corpuscular Hemoglobin Concent 31.8 G/DL (32.0-36.0) L Red Cell Distribution Width 16.4 % (11.6-14.8) H Platelet Count 458 K/UL (150-450) H Mean Platelet Volume 7.3 FL (6.5-10.1) Neutrophils (%) (Auto) 69.9 % (45.0-75.0) Lymphocytes (%) (Auto) 21.7 % (20.0-45.0) Monocytes (%) (Auto) 6.1 % (1.0-10.0) Eosinophils (%) (Auto) 1.2 % (0.0-3.0) Basophils (%) (Auto) 1.2 % (0.0-2.0) Prothrombin Time 12.5 SEC (9.30-11.50) H Prothromb Time International Ratio 1.1 (0.9-1.1) Activated Partial Thromboplast Time 29 SEC (23-33) Sodium Level 137 MMOL/L (136-145) Potassium Level 4.0 MMOL/L (3.5-5.1) Chloride Level 100 MMOL/L (98-107) Carbon Dioxide Level 27 MMOL/L (21-32) Anion Gap 10 mmol/L (5-15) Blood Urea Nitrogen 6 mg/dL (7-18) L Creatinine 0.7 MG/DL (0.55-1.30) Estimat Glomerular Filtration Rate > 60 mL/min (>60) Glucose Level 175 MG/DL (74-106) H Calcium Level 9.3 MG/DL (8.5-10.1) Total Bilirubin 0.3 MG/DL (0.2-1.0) Aspartate Amino Transf (AST/SGOT) 12 U/L (15-37) L Alanine Aminotransferase (ALT/SGPT) 21 U/L (12-78) Alkaline Phosphatase 128 U/L (46-116) H Total Protein 7.6 G/DL (6.4-8.2) Albumin 2.4 G/DL (3.4-5.0) L Globulin 5.2 g/dL Albumin/Globulin Ratio 0.5 (1.0-2.7) L Current Medications Medications (Trade) Dose Ordered Sig/Johnny Route PRN Reason Start Time Stop Time Status Last Admin Dose Admin Acetaminophen (Tylenol) 650 mg Q6H PRN NG Temp >100.5 01/09/21 09:15 02/08/21 09:14 01/26/21 02:05 Acetaminophen (Tylenol) 650 mg Q6H PRN NG Mild Pain (Pain Scale 1-3) 01/09/21 09:15 02/08/21 09:14 02/03/21 04:10 Acetylcysteine (Mucomyst) 200 mg Q6HRT [facility] 02/03/21 13:00 05/04/21 12:59 02/05/21 03:11 Albuterol/ Ipratropium (Albuterol/ Ipratropium) 3 ml Q6HRT N 02/03/21 13:00 02/08/21 12:59 02/05/21 03:11 Chlorhexidine Gluconate (Myranda-Hex 2%) 1 applic DAILY@1999 TOPIC 01/29/21 20:00 04/29/21 19:59 02/04/21 21:05 Dextrose (Dextrose 50%) 25 ml Q30M PRN IV Hypoglycemia 01/06/21 23:45 04/06/21 23:44 Dextrose (Dextrose 50%) 50 ml Q30M PRN IV Hypoglycemia 01/06/21 23:45 04/06/21 23:44 Docosanol (Abreva) 1 gm FIVE TIMES A DAY TP 01/29/21 20:00 04/29/21 19:59 02/05/21 07:40 Fentanyl Citrate 250 ml @ 1 mls/hr Q24H IV 02/04/21 11:00 02/06/21 10:59 02/05/21 03:17 Insulin Aspart (NovoLOG) EVERY 6 HOURS SUBQ 01/09/21 12:00 04/04/21 16:29 02/04/21 17:16 Lansoprazole (Prevacid) 30 mg DAILY GT 01/24/21 09:00 02/15/21 08:59 02/04/21 08:54 Lorazepam (Ativan 2mg/ml 1ml) 0.5 mg Q6H PRN IV For Seizures 02/05/21 03:15 02/12/21 03:14 02/05/21 03:55 Midodrine (Pro-Amatine) 10 mg Q8HR ORAL 01/20/21 14:00 04/20/21 13:59 02/04/21 21:05 Potassium Chloride (K-Dur) 20 meq TWICE A DAY NG 01/20/21 13:00 04/20/21 12:59 02/04/21 17:09 Quetiapine Fumarate (SEROqueL) 100 mg Q12HR ORAL 01/20/21 15:00 03/06/21 14:59 02/04/21 21:05 Valproic Acid (Depakene) 500 mg Q12HR GT 01/22/21 21:00 02/21/21 20:59 02/04/21 21:06 Vancomycin HCl 250 ml @ 166.667 mls/hr Q8H IVPB 02/01/21 09:00 02/06/21 08:59 02/05/21 01:00 Vancomycin HCl ([facility] pharmacy to dose) 1 ea DAILY PRN MISC Per rx protocol 01/25/21 08:15 02/24/21 08:14 Warfarin Sodium (Coumadin per pharmacy) 1 ea DAILY PRN MISC Per rx protocol 02/02/21 11:45 03/04/21 11:44 Anuel Pereira MD Feb 05, 2021 08:11
[2021-02-05] MEDS: Valproic Acid 250mg/5ml Liquid GT SCH ×2 (09:00→21:09)
--- NOTE | 2021-02-05 09:12 | Nephrology Progress Note ---
Assessment/Plan Problem List: (1) Hyperkalemia (2) Pneumonia due to COVID-19 virus (3) Respiratory failure with hypoxia (4) Obesity (5) Schizophrenia (6) DMII (diabetes mellitus, type 2) Assessment Hyperkalemia Stable renal parameters Hyperglycemia Covid pneumonia due to COVID-19 virus Acute respiratory failure with hypoxia requiring mechanical ventilation History of COPD History of DVT, pulmonary emboli Obese Hypertension History of diabetes Psych condition, schizophrenia, bipolar disease Plan February 05: Full code. Intubated on ventilator. Due for tracheostomy today as per RN. Renal parameters stable. Continue as is. February 04: Remains full code. Intubated on ventilator. FiO2 40%. Due for tracheostomy. Stable from renal standpoint of view. February 03: Remains intubated on ventilator. FiO2 40%. Discussed with RN. Patient is planned to have tracheostomy. Labs reviewed. Renal parameters stable. February 02: Status quo. Full code. Intubated on ventilator. FiO2 40%. Renal parameters stable. February 01: Status quo. FiO2 40%. Full code. Labs reviewed. Renal parameters stable. January 31: Status quo. FiO2 45%. Full code. Renal parameters stable. Abnormal electrolytes addressed. January 30: Status quo. Remains full code. Intubated. On ventilator. Low magnesium addressed. Continue per consultants. January 29: Status quo. Labs reviewed. Low magnesium addressed. Discussed with JOHAN Ratliff. Continue per consultants. January 28: Status quo. Labs and medication list reviewed. K-Phos supplement ordered. Continue per current treatment plan. January 27: Patient remains full code. Intubated on ventilator. FiO2 50%. Labs reviewed. Renal parameters stable. Medication list reviewed. January 26: Full code. Intubated. On ventilator. FiO2 65%. No CHEM panel drawn today. Continue per consultants. January 25: Status unchanged. Blood pressure low. Remains full code on ventilator. Continue per consultants. Medication list reviewed. INR is 3.8 today. January 24: Status quo. Intubated on ventilator and full code. Labs reviewed. Medication list reviewed. Continue per consultants. January 23: Patient on prone position. IntubatedFiO2 65%. Renal parameters stable. Continue per consultants. Date hospitalization. Possible trach?. January 22: FiO2 50%. Prone position. Labs reviewed. Stable from renal sue dpoint of view. Continue per consultants. January 21: Full code. Intubated on ventilator. FiO2 40%. Labs reviewed. Renal parameters stable. Continue per consultants. January 20: Status unchanged. Full code. On ventilator. Chest x-ray reviewed. IV fluid discontinued. Potassium supplement given. 1 dose of Lasix given. Albumin bolus given. Midodrine started. Will monitor renal parameters and electrolytes. Discussed with JOHAN Mohamud. January 19: Labs reviewed. Renal parameters stable. Remains full code intubated on ventilator. FiO2 50%. Continue per consultants. January 18: Full code. Intubated. On ventilator. FiO2 down to 35%. No labs drawn today. Continue to monitor renal parameters and electrolytes. January 17: Full code. Intubated on ventilator. FiO2 remains at 60%. Labs reviewed. Renal parameters stable. January 16: Full code. Intubated. Labs reviewed. Renal parameters stable. FiO2 60%. Continue per consultants. January 15: Patient remains intubated and full code. Labs reviewed. Stable renal parameters. January 14: Patient full code. Intubated on ventilator. On prone position until 5 PM. Labs reviewed. Stable from renal standpoint of view. January 13: Labs reviewed. Renal parameters stable. Continue per consultants. Patient remain full code and intubated on ventilator. January 12: Labs reviewed. Renal parameters stable. Patient remains full code. Remains intubated on ventilator and on prone position. Continue per consultants. January 11: Labs reviewed. Renal parameters stable. Continue per consultants. January 10: Labs reviewed. Renal parameters stable. Continue per consultants. Change IV to half-normal saline Kayexalate via NG tube for high potassium Monitor electrolytes and renal parameters Per orders, per consultants Subjective ROS Limited/Unobtainable: Yes Objective Objective Last 24 Hour Vital Signs Date Time Temp Pulse Resp B/P (MAP) Pulse Ox O2 Delivery O2 Flow Rate FiO2 02/05/21 08:14 108 29 98 Mechanical Ventilator 40 104 24 40 02/05/21 08:00 99.2 105 27 123/76 (92) 95 105 02/05/21 08:00 104 02/05/21 08:00 Mechanical Ventilator 02/05/21 08:00 40 02/05/21 07:15 93 21 103/67 (79) 96 02/05/21 07:00 103 24 117/73 (88) 93 02/05/21 07:00 22 105/56 Mechanical Ventilator 40 02/05/21 06:45 87 19 112/66 (81) 94 02/05/21 06:30 88 22 103/63 (76) 95 02/05/21 06:15 97 14 99/64 (76) 96 02/05/21 06:00 98 21 110/66 (81) 96 02/05/21 06:00 21 110/60 Mechanical Ventilator 40 02/05/21 05:45 110 25 120/67 (84) 88 02/05/21 05:30 103 22 89/66 (74) 100 02/05/21 05:15 109 19 106/69 (81) 100 02/05/21 05:00 24 125/74 Mechanical Ventilator 40 02/05/21 05:00 113 24 125/74 (91) 100 02/05/21 04:45 116 22 112/86 (95) 100 02/05/21 04:30 128 27 106/86 (93) 91 02/05/21 04:25 95 22 117/72 98 02/05/21 04:15 119 22 119/75 (90) 97 02/05/21 04:00 99.0 91 21 114/69 (84) 97 02/05/21 04:00 95 02/05/21 04:00 Mechanical Ventilator 02/05/21 04:00 21 114/69 Mechanical Ventilator 40 02/05/21 04:00 40 02/05/21 03:55 88 22 117/72 98 02/05/21 03:45 93 21 114/77 (89) 95 02/05/21 03:30 91 21 128/76 (93) 93 02/05/21 03:17 22 117/72 Mechanical Ventilator 65.0 40 02/05/21 03:15 92 18 109/77 (88) 96 02/05/21 03:11 88 23 98 Mechanical Ventilator 40 104 22 40 02/05/21 03:00 90 17 122/67 (85) 95 02/05/21 02:45 89 17 124/75 (91) 96 02/05/21 02:30 87 18 138/73 (94) 96 02/05/21 02:15 84 23 117/83 (94) 96 02/05/21 02:00 19 113/79 Mechanical Ventilator 40 02/05/21 02:00 80 19 113/79 (90) 95 02/05/21 01:45 80 22 117/77 (90) 95 02/05/21 01:30 79 22 116/77 (90) 96 02/05/21 01:15 83 20 129/88 (102) 98 02/05/21 01:00 82 18 129/91 (104) 99 02/05/21 01:00 19 129/91 Mechanical Ventilator 40 02/05/21 01:00 18 129/91 Mechanical Ventilator 40 02/05/21 00:00 Mechanical Ventilator 02/05/21 00:00 22 117/72 Mechanical Ventilator 40 02/05/21 00:00 84 02/05/21 00:00 98.7 89 21 123/77 (92) 96 02/05/21 00:00 40 02/04/21 23:00 22 121/72 Mechanical Ventilator 40 02/04/21 23:00 82 22 119/75 (90) 91 02/04/21 22:49 78 22 40 02/04/21 22:00 22 126/70 Mechanical Ventilator 40 02/04/21 22:00 85 22 135/73 (93) 98 02/04/21 21:00 22 129/89 Mechanical Ventilator 40 02/04/21 21:00 89 22 127/86 (100) 97 02/04/21 20:00 99.0 96 24 98/63 (75) 95 02/04/21 20:00 40 02/04/21 20:00 22 90/60 Mechanical Ventilator 40 02/04/21 20:00 Mechanical Ventilator 02/04/21 20:00 90 02/04/21 19:34 22 98/65 Mechanical Ventilator 65.0 40 02/04/21 19:33 22 98/54 Mechanical Ventilator 40 02/04/21 19:32 89 22 93 Mechanical Ventilator 40 90 22 40 02/04/21 19:00 86 22 92/59 (70) 94 02/04/21 19:00 22 98/65 Mechanical Ventilator 40 02/04/21 18:15 90 22 98/65 (76) 94 02/04/21 18:00 22 98/65 Mechanical Ventilator 40 02/04/21 17:00 22 95/62 Mechanical Ventilator 40 02/04/21 17:00 98 22 93/65 (74) 93 02/04/21 16:05 95 02/04/21 16:00 40 02/04/21 16:00 99.1 99 19 96/68 (77) 92 02/04/21 16:00 19 98/61 Mechanical Ventilator 40 02/04/21 16:00 Mechanical Ventilator 02/04/21 15:30 98 22 40 02/04/21 15:00 22 123/75 Mechanical Ventilator 40 02/04/21 15:00 96 22 97/61 (73) 92 02/04/21 14:00 104 21 100/62 (75) 93 02/04/21 14:00 21 100/62 Mechanical Ventilator 40 02/04/21 13:15 102 22 97 Mechanical Ventilator 40 103 22 40 02/04/21 13:00 104 22 108/62 (77) 95 02/04/21 13:00 22 101/63 Mechanical Ventilator 40 02/04/21 12:00 40 02/04/21 12:00 98.9 104 22 95/54 (68) 93 02/04/21 12:00 22 95/54 Mechanical Ventilator 40 02/04/21 12:00 Mechanical Ventilator 02/04/21 11:41 104 02/04/21 11:00 117 25 40 02/04/21 11:00 117 24 110/69 (83) 94 02/04/21 11:00 24 110/69 Mechanical Ventilator 40 02/04/21 10:39 24 127/84 Mechanical Ventilator 65.0 40 02/04/21 10:00 24 125/87 Mechanical Ventilator 40 02/04/21 10:00 105 24 125/87 (100) 100 02/04/21 09:15 99 23 117/78 (91) 96 Intake and Output 02/04/21 02/05/21 19:00 07:00 Intake Total 1596.667 ml 916.500 ml Output Total 1875 ml 1180 ml Balance -278.333 ml -263.500 ml Free Water 100 ml IV Total 776.667 ml 616.500 ml Tube Feeding 720 ml 240 ml Other 60 ml Output Urine Total 1875 ml 1180 ml Current Medications Medications (Trade) Dose Ordered Sig/Johnny Route PRN Reason Start Time Stop Time Status Last Admin Dose Admin Acetaminophen (Tylenol) 650 mg Q6H PRN NG Temp >100.5 01/09/21 09:15 02/08/21 09:14 01/26/21 02:05 Acetaminophen (Tylenol) 650 mg Q6H PRN NG Mild Pain (Pain Scale 1-3) 01/09/21 09:15 02/08/21 09:14 02/03/21 04:10 Acetylcysteine (Mucomyst) 200 mg Q6HRT N 02/03/21 13:00 05/04/21 12:59 02/05/21 08:14 Albuterol/ Ipratropium (Albuterol/ Ipratropium) 3 ml Q6HRT N 02/03/21 13:00 02/08/21 12:59 02/05/21 08:13 Chlorhexidine Gluconate (Myranda-Hex 2%) 1 applic DAILY@2000 TOPIC 01/29/21 20:00 04/29/21 19:59 02/04/21 21:05 Dextrose (Dextrose 50%) 25 ml Q30M PRN IV Hypoglycemia 01/06/21 23:45 04/06/21 23:44 Dextrose (Dextrose 50%) 50 ml Q30M PRN IV Hypoglycemia 01/06/21 23:45 04/06/21 23:44 Docosanol (Abreva) 1 gm FIVE TIMES A DAY TP 01/29/21 20:00 04/29/21 19:59 02/05/21 07:40 Fentanyl Citrate 250 ml @ 1 mls/hr Q24H IV 02/04/21 11:00 02/06/21 10:59 02/05/21 03:17 Insulin Aspart (NovoLOG) EVERY 6 HOURS SUBQ 01/09/21 12:00 04/04/21 16:29 02/04/21 17:16 Lansoprazole (Prevacid) 30 mg DAILY GT 01/24/21 09:00 02/15/21 08:59 02/04/21 08:54 Lorazepam (Ativan 2mg/ml 1ml) 0.5 mg Q6H PRN IV For Seizures 02/05/21 03:15 02/12/21 03:14 02/05/21 03:55 Midodrine (Pro-Amatine) 10 mg Q8HR ORAL 01/20/21 14:00 04/20/21 13:59 02/04/21 21:05 Potassium Chloride (K-Dur) 20 meq TWICE A DAY NG 01/20/21 13:00 04/20/21 12:59 02/04/21 17:09 Quetiapine Fumarate (SEROqueL) 100 mg Q12HR ORAL 01/20/21 15:00 03/06/21 14:59 02/04/21 21:05 Valproic Acid (Depakene) 500 mg Q12HR GT 01/22/21 21:00 02/21/21 20:59 02/04/21 21:06 Vancomycin HCl 250 ml @ 166.667 mls/hr Q8H IVPB 02/01/21 09:00 02/06/21 08:59 02/05/21 08:19 Vancomycin HCl (Vanco pharmacy to dose) 1 ea DAILY PRN MISC Per rx protocol 01/25/21 08:15 02/24/21 08:14 Warfarin Sodium (Coumadin per pharmacy) 1 ea DAILY PRN MISC Per rx protocol 02/02/21 11:45 03/04/21 11:44 Hold Laboratory Tests 02/05/21 03:00: White Blood Count 13.2H, Red Blood Count 4.19L, Hemoglobin 12.1L, Hematocrit 38.0L, Mean Corpuscular Volume 91, Mean Corpuscular Hemoglobin 28.9, Mean Corpuscular Hemoglobin Concent 31.8L, Red Cell Distribution Width 16.4H, Platelet Count 458H, Mean Platelet Volume 7.3, Neutrophils (%) (Auto) 69.9, Lymphocytes (%) (Auto) 21.7, Monocytes (%) (Auto) 6.1, Eosinophils (%) (Auto) 1.2, Basophils (%) (Auto) 1.2, Prothrombin Time 12.5H, Prothromb Time International Ratio 1.1, Activated Partial Thromboplast Time 29, Sodium Level 137, Potassium Level 4.0, Chloride Level 100, Carbon Dioxide Level 27, Anion Gap 10, Blood Urea Nitrogen 6L, Creatinine 0.7, Estimat Glomerular Filtration Rate > 60, Glucose Level 175H, Calcium Level 9.3, Total Bilirubin 0.3, Aspartate Amino Transf (AST/SGOT) 12L, Alanine Aminotransferase (ALT/SGPT) 21, Alkaline Phosphatase 128H, Total Protein 7.6, Albumin 2.4L, Globulin 5.2, Albumin/G lobulin Ratio 0.5L Height (Feet): 5 Height (Inches): 5.00 Weight (Pounds): 233 General Appearance: no apparent distress Cardiovascular: tachycardia Respiratory/Chest: decreased breath sounds Abdomen: distended Avi Frye MD Feb 05, 2021 09:12
[2021-02-05] MEDS ORDERED: Rocuronium Bromide 50mg/5ml Inj IV ONE (09:16)
--- NOTE | 2021-02-05 09:28 | Anethesia Preoperative Eval ---
Anesthesia Pre-op PMH/ROS General Date of Evaluation: Feb 05, 2021 Time of Evaluation: 09:49 Anesthesiologist: Denise ASA Score: ASA 4 Mallampati Score Class I : Soft palate, uvula, fauces, pillars visible Class II: Soft palate, uvula, fauces visible Class III: Soft palate, base of uvula visible Class IV: Only hard plate visible Mallampati Classification: Class III - Intubated Surgeon: Ligia Diagnosis: Vent Failure Surgical Procedure: Tracheostomy Anesthesia History: none Family History: no anesthesia problems Allergies: Coded Allergies: No Known Allergies (Unverified , 01/02/21) Medications: see eMAR Patient NPO?: Yes Past Medical History Cardiovascular: Reports: HTN, arrhythmia - AFib, other - PVD Pulmonary: Reports: COPD, other - Covid Pneumonia Gastrointestinal/Genitourinary: 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 Exam Physician Exam Last Vital Signs Date Time Temp Pulse Resp B/P (MAP) Pulse Ox O2 Delivery O2 Flow Rate FiO2 02/05/21 09:00 22 107/72 Mechanical Ventilator 40 02/05/21 08:14 108 98 104 02/05/21 08:00 99.2 02/05/21 03:17 65.0 Constitutional: NAD Neurologic: CN 2-12 intact Cardiovascular: RRR Respiratory: CTA Gastrointestinal: S/NT/ND Airway Exam Mallampati Score: Class III MO: limited Neck: Intubated ROM: limited Teeth: missing Dentures: upper, lower Anesthesia Pre-op A/P Labs Hematology Test 02/05/21 03:00 White Blood Count 13.2 K/UL (4.8-10.8) H Red Blood Count 4.19 M/UL (4.70-6.10) L Hemoglobin 12.1 G/DL (14.2-18.0) L Hematocrit 38.0 % (42.0-52.0) L Mean Corpuscular Volume 91 FL (80-99) Mean Corpuscular Hemoglobin 28.9 PG (27.0-31.0) Mean Corpuscular Hemoglobin Concent 31.8 G/DL (32.0-36.0) L Red Cell Distribution Width 16.4 % (11.6-14.8) H Platelet Count 458 K/UL (150-450) H Mean Platelet Volume 7.3 FL (6.5-10.1) Neutrophils (%) (Auto) 69.9 % (45.0-75.0) Lymphocytes (%) (Auto) 21.7 % (20.0-45.0) Monocytes (%) (Auto) 6.1 % (1.0-10.0) Eosinophils (%) (Auto) 1.2 % (0.0-3.0) Basophils (%) (Auto) 1.2 % (0.0-2.0) Coagulation Test 02/05/21 03:00 Prothrombin Time 12.5 SEC (9.30-11.50) H Prothromb Time International Ratio 1.1 (0.9-1.1) Activated Partial Thromboplast Time 29 SEC (23-33) Chemistry Test 02/05/21 03:00 Sodium Level 137 MMOL/L (136-145) Potassium Level 4.0 MMOL/L (3.5-5.1) Chloride Level 100 MMOL/L (98-107) Carbon Dioxide Level 27 MMOL/L (21-32) Anion Gap 10 mmol/L (5-15) Blood Urea Nitrogen 6 mg/dL (7-18) L Creatinine 0.7 MG/DL (0.55-1.30) Estimat Glomerular Filtration Rate > 60 mL/min (>60) Glucose Level 175 MG/DL (74-106) H Calcium Level 9.3 MG/DL (8.5-10.1) Total Bilirubin 0.3 MG/DL (0.2-1.0) Aspartate Amino Transf (AST/SGOT) 12 U/L (15-37) L Alanine Aminotransferase (ALT/SGPT) 21 U/L (12-78) Alkaline Phosphatase 128 U/L (46-116) H Total Protein 7.6 G/DL (6.4-8.2) Albumin 2.4 G/DL (3.4-5.0) L Globulin 5.2 g/dL Albumin/Globulin Ratio 0.5 (1.0-2.7) L Risk Assessment & Plan Assessment: ASA 4 Plan: GA Status Change Before Surgery: No Pre-Antibiotics Dru Gram Ancef IV Given Within 1 Hr of Incision: Yes Time Given: 10:09 Trevor Walker MD Feb 05, 2021 09:28
--- NOTE | 2021-02-05 09:30 | Immediate Post-Op Evaluation ---
Immediate Post-Op Evalulation Immediate Post-Op Evalulation Procedure: Tracheostomy Date of Evaluation: Feb 05, 2021 Time of Evaluation: 11:12 IV Fluids: 10 CC NS Blood Products: 0 Estimated Blood Loss: 10 Urinary Output: 0 Blood Pressure Systolic: 124 Blood Pressure Diastolic: 73 Pulse Rate: 101 Respiratory Rate: 20 - Mech Vent O2 Sat by Pulse Oximetry: 97 Temperature (Fahrenheit): 98.6 Pain Score (1-10): 0 Nausea: No Vomiting: No Complications 0 Patient Status: no response, patent, ventilated, none Hydration Status: adequate Dru Gram Ancef IV Given Within 1 Hr of Incision: Yes Time Given: 10:09 Trevor Walker MD Feb 05, 2021 09:30
--- NOTE | 2021-02-05 09:31 | 48 Hour Post Anesthesia Eval ---
Post Anesthesia Evaluation Procedure: Tracheostomy Date of Evaluation: Feb 05, 2021 Time of Evaluation: 13:23 Blood Pressure Systolic: 133 0: 84 Pulse Rate: 112 Respiratory Rate: 20 - Mech Vent Temperature (Fahrenheit): 98.6 O2 Sat by Pulse Oximetry: 98 Airway: patent Nausea: No Vomiting: No Pain Intensity: 0 Hydration Status: adequate Cardiopulmonary Status: Stable Mental Status/LOC: patient returned to baseline Follow-up Care/Observations: 0 Post-Anesthesia Complications: 0 Follow-up care needed: N/A Trevor Walker MD Feb 05, 2021 09:31
[2021-02-05] MEDS ORDERED: Sodium Chloride 10ml vial INJ ONE (09:34)
[2021-02-05] MEDS ORDERED: Lidocaine 1% 10mg/ml/Epi 0.005mg/ml 30ml vial INJ ONE (09:53)
--- NOTE | 2021-02-05 11:51 | Surgery Progress Note ---
Surgery Progress Note Subjective Procedure Performed tracheostomy Additional Comments s/p trach today Objective Last 24 Hour Vital Signs Date Time Temp Pulse Resp B/P (MAP) Pulse Ox O2 Delivery O2 Flow Rate FiO2 02/05/21 11:00 20 138/82 Mechanical Ventilator 40 02/05/21 11:00 76 22 131/83 (99) 94 02/05/21 10:54 112 20 98 02/05/21 10:53 101 20 97 02/05/21 10:00 20 118/70 Mechanical Ventilator 40 02/05/21 09:00 107 22 109/64 (79) 94 02/05/21 09:00 22 107/72 Mechanical Ventilator 40 02/05/21 08:14 108 29 98 Mechanical Ventilator 40 104 24 40 02/05/21 08:00 99.2 105 27 123/76 (92) 95 105 02/05/21 08:00 104 02/05/21 08:00 Mechanical Ventilator 02/05/21 08:00 40 02/05/21 08:00 22 122/71 Mechanical Ventilator 40 02/05/21 07:15 93 21 103/67 (79) 96 02/05/21 07:00 103 24 117/73 (88) 93 02/05/21 07:00 22 105/56 Mechanical Ventilator 40 02/05/21 06:45 87 19 112/66 (81) 94 02/05/21 06:30 88 22 103/63 (76) 95 02/05/21 06:15 97 14 99/64 (76) 96 02/05/21 06:00 98 21 110/66 (81) 96 02/05/21 06:00 21 110/60 Mechanical Ventilator 40 02/05/21 05:45 110 25 120/67 (84) 88 02/05/21 05:30 103 22 89/66 (74) 100 02/05/21 05:15 109 19 106/69 (81) 100 02/05/21 05:00 24 125/74 Mechanical Ventilator 40 02/05/21 05:00 113 24 125/74 (91) 100 02/05/21 04:45 116 22 112/86 (95) 100 02/05/21 04:30 128 27 106/86 (93) 91 02/05/21 04:25 95 22 117/72 98 02/05/21 04:15 119 22 119/75 (90) 97 02/05/21 04:00 99.0 91 21 114/69 (84) 97 02/05/21 04:00 95 02/05/21 04:00 Mechanical Ventilator 02/05/21 04:00 21 114/69 Mechanical Ventilator 40 02/05/21 04:00 40 02/05/21 03:55 88 22 117/72 98 02/05/21 03:45 93 21 114/77 (89) 95 02/05/21 03:30 91 21 128/76 (93) 93 02/05/21 03:17 22 117/72 Mechanical Ventilator 65.0 40 02/05/21 03:15 92 18 109/77 (88) 96 02/05/21 03:11 88 23 98 Mechanical Ventilator 40 104 22 40 02/05/21 03:00 90 17 122/67 (85) 95 02/05/21 02:45 89 17 124/75 (91) 96 02/05/21 02:30 87 18 138/73 (94) 96 02/05/21 02:15 84 23 117/83 (94) 96 02/05/21 02:00 19 113/79 Mechanical Ventilator 40 02/05/21 02:00 80 19 113/79 (90) 95 02/05/21 01:45 80 22 117/77 (90) 95 02/05/21 01:30 79 22 116/77 (90) 96 02/05/21 01:15 83 20 129/88 (102) 98 02/05/21 01:00 82 18 129/91 (104) 99 02/05/21 01:00 19 129/91 Mechanical Ventilator 40 02/05/21 01:00 18 129/91 Mechanical Ventilator 40 02/05/21 00:00 Mechanical Ventilator 02/05/21 00:00 22 117/72 Mechanical Ventilator 40 02/05/21 00:00 84 02/05/21 00:00 98.7 89 21 123/77 (92) 96 02/05/21 00:00 40 02/04/21 23:00 22 121/72 Mechanical Ventilator 40 02/04/21 23:00 82 22 119/75 (90) 91 02/04/21 22:49 78 22 40 02/04/21 22:00 22 126/70 Mechanical Ventilator 40 02/04/21 22:00 85 22 135/73 (93) 98 02/04/21 21:00 22 129/89 Mechanical Ventilator 40 02/04/21 21:00 89 22 127/86 (100) 97 02/04/21 20:00 99.0 96 24 98/63 (75) 95 02/04/21 20:00 40 02/04/21 20:00 22 90/60 Mechanical Ventilator 40 02/04/21 20:00 Mechanical Ventilator 02/04/21 20:00 90 02/04/21 19:34 22 98/65 Mechanical Ventilator 65.0 40 02/04/21 19:33 22 98/54 Mechanical Ventilator 40 02/04/21 19:32 89 22 93 Mechanical Ventilator 40 90 22 40 02/04/21 19:00 86 22 92/59 (70) 94 02/04/21 19:00 22 98/65 Mechanical Ventilator 40 02/04/21 18:15 90 22 98/65 (76) 94 02/04/21 18:00 22 98/65 Mechanical Ventilator 40 02/04/21 17:00 22 95/62 Mechanical Ventilator 40 02/04/21 17:00 98 22 93/65 (74) 93 02/04/21 16:05 95 02/04/21 16:00 40 02/04/21 16:00 99.1 99 19 96/68 (77) 92 02/04/21 16:00 19 98/61 Mechanical Ventilator 40 02/04/21 16:00 Mechanical Ventilator 02/04/21 15:30 98 22 40 02/04/21 15:00 22 123/75 Mechanical Ventilator 40 02/04/21 15:00 96 22 97/61 (73) 92 02/04/21 14:00 104 21 100/62 (75) 93 02/04/21 14:00 21 100/62 Mechanical Ventilator 40 02/04/21 13:15 102 22 97 Mechanical Ventilator 40 103 22 40 02/04/21 13:00 104 22 108/62 (77) 95 02/04/21 13:00 22 101/63 Mechanical Ventilator 40 02/04/21 12:00 40 02/04/21 12:00 98.9 104 22 95/54 (68) 93 02/04/21 12:00 22 95/54 Mechanical Ventilator 40 02/04/21 12:00 Mechanical Ventilator I&O Intake and Output 02/04/21 02/05/21 19:00 07:00 Intake Total 1596.667 ml 916.500 ml Output Total 1875 ml 1180 ml Balance -278.333 ml -263.500 ml Free Water 100 ml IV Total 776.667 ml 616.500 ml Tube Feeding 720 ml 240 ml Other 60 ml Output Urine Total 1875 ml 1180 ml Laboratory Tests Test 02/05/21 03:00 White Blood Count 13.2 K/UL (4.8-10.8) H Red Blood Count 4.19 M/UL (4.70-6.10) L Hemoglobin 12.1 G/DL (14.2-18.0) L Hematocrit 38.0 % (42.0-52.0) L Mean Corpuscular Volume 91 FL (80-99) Mean Corpuscular Hemoglobin 28.9 PG (27.0-31.0) Mean Corpuscular Hemoglobin Concent 31.8 G/DL (32.0-36.0) L Red Cell Distribution Width 16.4 % (11.6-14.8) H Platelet Count 458 K/UL (150-450) H Mean Platelet Volume 7.3 FL (6.5-10.1) Neutrophils (%) (Auto) 69.9 % (45.0-75.0) Lymphocytes (%) (Auto) 21.7 % (20.0-45.0) Monocytes (%) (Auto) 6.1 % (1.0-10.0) Eosinophils (%) (Auto) 1.2 % (0.0-3.0) Basophils (%) (Auto) 1.2 % (0.0-2.0) Prothrombin Time 12.5 SEC (9.30-11.50) H Prothromb Time International Ratio 1.1 (0.9-1.1) Activated Partial Thromboplast Time 29 SEC (23-33) Sodium Level 137 MMOL/L (136-145) Potassium Level 4.0 MMOL/L (3.5-5.1) Chloride Level 100 MMOL/L (98-107) Carbon Dioxide Level 27 MMOL/L (21-32) Anion Gap 10 mmol/L (5-15) Blood Urea Nitrogen 6 mg/dL (7-18) L Creatinine 0.7 MG/DL (0.55-1.30) Estimat Glomerular Filtration Rate > 60 mL/min (>60) Glucose Level 175 MG/DL (74-106) H Calcium Level 9.3 MG/DL (8.5-10.1) Total Bilirubin 0.3 MG/DL (0.2-1.0) Aspartate Amino Transf (AST/SGOT) 12 U/L (15-37) L Alanine Aminotransferase (ALT/SGPT) 21 U/L (12-78) Alkaline Phosphatase 128 U/L (46-116) H Total Protein 7.6 G/DL (6.4-8.2) Albumin 2.4 G/DL (3.4-5.0) L Globulin 5.2 g/dL Albumin/Globulin Ratio 0.5 (1.0-2.7) L Plan Problems: (1) COPD (chronic obstructive pulmonary disease) (2) Essential hypertension (3) Schizophrenia (4) Obesity (5) Diabetes mellitus type 2 in obese (6) History of hydrocephalus (7) Anticoagulant long-term use (8) Bipolar 1 disorder (9) History of deep venous thrombosis or pulmonary embolus (10) Acute hypercapnic respiratory failure (11) Sepsis Assessment & Plan: 60-year-old male Covid positive respiratory insufficiency and severe decline being prone intubated on vent support labs noted septic ill- appearing has been developing wound around the face from ET tube.Receiv ed report from RT pt is being proned and was observed to have developed a blood blister under vent tape on L cheek and L earlobe. Skin assessed and pt was observed to have a blood blister that is 50% de-capped,50% intact. Intact Blood Blister noted to L earlobe. Skin Barrier applied to affected areas. Optifoam Thin foam placed between vent anchor and pt's skin. Optifoam thin placed to R cheek under Vent tape, on Bridge of nose and both earlobes. Given patient's critical status current care plan and findings nutritional optimization is strongly encouraged Covid nutrition plan initiated. All Covid precautions are being taken. Imaging reviewed. Will follow with care plan. Thank you [facility] participation care Tx.Plan: Maintain Optifoam Thin foam to R and L cheeks,Bridge of Nose and Both Ears . Change every 7 days and prn.( May request Optifoam Thin from [facility] dept). APM/PEPE Mattress overlay DAILY ESTIMATED NEEDS: Needs based on Critical care, pulmonary, obese 73.7kg abw 22-28 kcals/kg 1883-7458 total kcals 1.2-2 g protein/kg 88-147 g total protein 25-30 mL/kg 9952-8750 total fluid mLs NUTRITION DIAGNOSIS: Altered nutrition related lab values r/t steroidal meds, clinical status as evidenced by febrile on adm (102.5), elevated BG (270 287) on solumedrol, elevated lipid panel (Triglycerides 333, Chol 370, LDL 150). CURRENT TF:Vital @30ml/hr, now Nepro @30 ENTERAL NUTRITION RECOMMENDATIONS: NEPRO @30ml/hr while supine to provide x8 hrs feeds: 360ml, 648 kcal, 29g pro, 262ml free H2O - Feed at rate best tolerated, currently not meeting est needs d/t proning and aspiration risk w/ supine feeds limited to 8hrs/day. - W/ reduced aspiration risk rec feedings to total Volume of 900ml/day of Nepro as medically able. - Monitor tolerance, position/HOB >30 degrees, hemodynamic stability and ability to increase to meet est kcal and pro needs. - With increase pressor support, rec trophic feeds of 10ml/hr for gut integrity. - When tolerating TF at goal add Prosource BID to better meet est pro needs. ADDITIONAL RECOMMENDATIONS: 1) Now intubated, TF recs above when off proning (8hrs feeds) 2) Obtain calibrated bedscale wts 3) HgA1C/ elevated BG Need for niss while on D5 4) Lytes daily; replete as needed 5) Monitor triglycerides, TF tolerance, hemodynamic stability. (12) Respiratory failure with hypoxia Assessment & Plan: cont weaning vent wean pressors not ready for trach off pressors improving HD stable plan trach soon as unable to extubate (13) Pneumonia due to COVID-19 virus (14) Hyperkalemia (15) DMII (diabetes mellitus, type 2) Ki Strong Feb 05, 2021 11:51
--- NOTE | 2021-02-05 11:51 | Brief Operative Note ---
Immediate Post Operative Note Operative Note Pre-op Diagnosis: respiratory insufficiency Procedure: tracheostomy Post-op Diagnosis: same as pre-op Surgeon: neil Anesthesiologist: jam Anesthesia: general, local Specimen: none Complications: none Condition: stable Fluids: see Estimated Blood Loss: minimal Drains: other Implant(s) used?: No Ki Strong Feb 05, 2021 11:51
--- NOTE | 2021-02-05 15:09 | General Progress Note ---
Subjective ROS Limited/Unobtainable: No Allergies: Coded Allergies: No Known Allergies (Unverified , 01/02/21) Objective Last 24 Hour Vital Signs Date Time Temp Pulse Resp B/P (MAP) Pulse Ox O2 Delivery O2 Flow Rate FiO2 02/05/21 14:00 99 22 89/70 (76) 95 02/05/21 13:00 110 22 85/53 (64) 94 02/05/21 13:00 22 92/53 Mechanical Ventilator 40 02/05/21 12:00 105 02/05/21 12:00 21 105/65 Mechanical Ventilator 40 02/05/21 12:00 98.9 103 19 117/75 (89) 100 103 02/05/21 12:00 40 02/05/21 12:00 Mechanical Ventilator 02/05/21 11:00 20 138/82 Mechanical Ventilator 40 02/05/21 11:00 76 22 131/83 (99) 94 02/05/21 10:54 112 20 98 02/05/21 10:53 101 20 97 02/05/21 10:00 20 118/70 Mechanical Ventilator 40 02/05/21 09:00 107 22 109/64 (79) 94 02/05/21 09:00 22 107/72 Mechanical Ventilator 40 02/05/21 08:14 108 29 98 Mechanical Ventilator 40 104 24 40 02/05/21 08:00 99.2 105 27 123/76 (92) 95 105 02/05/21 08:00 104 02/05/21 08:00 Mechanical Ventilator 02/05/21 08:00 40 02/05/21 08:00 22 122/71 Mechanical Ventilator 40 02/05/21 07:15 93 21 103/67 (79) 96 02/05/21 07:00 103 24 117/73 (88) 93 02/05/21 07:00 22 105/56 Mechanical Ventilator 40 02/05/21 06:45 87 19 112/66 (81) 94 02/05/21 06:30 88 22 103/63 (76) 95 02/05/21 06:15 97 14 99/64 (76) 96 02/05/21 06:00 98 21 110/66 (81) 96 02/05/21 06:00 21 110/60 Mechanical Ventilator 40 02/05/21 05:45 110 25 120/67 (84) 88 02/05/21 05:30 103 22 89/66 (74) 100 02/05/21 05:15 109 19 106/69 (81) 100 02/05/21 05:00 24 125/74 Mechanical Ventilator 40 02/05/21 05:00 113 24 125/74 (91) 100 02/05/21 04:45 116 22 112/86 (95) 100 02/05/21 04:30 128 27 106/86 (93) 91 02/05/21 04:25 95 22 117/72 98 02/05/21 04:15 119 22 119/75 (90) 97 02/05/21 04:00 99.0 91 21 114/69 (84) 97 02/05/21 04:00 95 02/05/21 04:00 Mechanical Ventilator 02/05/21 04:00 21 114/69 Mechanical Ventilator 40 02/05/21 04:00 40 02/05/21 03:55 88 22 117/72 98 02/05/21 03:45 93 21 114/77 (89) 95 02/05/21 03:30 91 21 128/76 (93) 93 02/05/21 03:17 22 117/72 Mechanical Ventilator 65.0 40 02/05/21 03:15 92 18 109/77 (88) 96 02/05/21 03:11 88 23 98 Mechanical Ventilator 40 104 22 40 02/05/21 03:00 90 17 122/67 (85) 95 02/05/21 02:45 89 17 124/75 (91) 96 02/05/21 02:30 87 18 138/73 (94) 96 02/05/21 02:15 84 23 117/83 (94) 96 02/05/21 02:00 19 113/79 Mechanical Ventilator 40 02/05/21 02:00 80 19 113/79 (90) 95 02/05/21 01:45 80 22 117/77 (90) 95 02/05/21 01:30 79 22 116/77 (90) 96 02/05/21 01:15 83 20 129/88 (102) 98 02/05/21 01:00 82 18 129/91 (104) 99 02/05/21 01:00 19 129/91 Mechanical Ventilator 40 02/05/21 01:00 18 129/91 Mechanical Ventilator 40 02/05/21 00:00 Mechanical Ventilator 02/05/21 00:00 22 117/72 Mechanical Ventilator 40 02/05/21 00:00 84 02/05/21 00:00 98.7 89 21 123/77 (92) 96 02/05/21 00:00 40 02/04/21 23:00 22 121/72 Mechanical Ventilator 40 02/04/21 23:00 82 22 119/75 (90) 91 02/04/21 22:49 78 22 40 02/04/21 22:00 22 126/70 Mechanical Ventilator 40 02/04/21 22:00 85 22 135/73 (93) 98 02/04/21 21:00 22 129/89 Mechanical Ventilator 40 02/04/21 21:00 89 22 127/86 (100) 97 02/04/21 20:00 99.0 96 24 98/63 (75) 95 02/04/21 20:00 40 02/04/21 20:00 22 90/60 Mechanical Ventilator 40 02/04/21 20:00 Mechanical Ventilator 02/04/21 20:00 90 02/04/21 19:34 22 98/65 Mechanical Ventilator 65.0 40 02/04/21 19:33 22 98/54 Mechanical Ventilator 40 02/04/21 19:32 89 22 93 Mechanical Ventilator 40 90 22 40 02/04/21 19:00 86 22 92/59 (70) 94 02/04/21 19:00 22 98/65 Mechanical Ventilator 40 02/04/21 18:15 90 22 98/65 (76) 94 02/04/21 18:00 22 98/65 Mechanical Ventilator 40 02/04/21 17:00 22 95/62 Mechanical Ventilator 40 02/04/21 17:00 98 22 93/65 (74) 93 02/04/21 16:05 95 02/04/21 16:00 40 02/04/21 16:00 99.1 99 19 96/68 (77) 92 02/04/21 16:00 19 98/61 Mechanical Ventilator 40 02/04/21 16:00 Mechanical Ventilator 02/04/21 15:30 98 22 40 Intake and Output 02/04/21 02/05/21 19:00 07:00 Intake Total 1596.667 ml 916.500 ml Output Total 1875 ml 1180 ml Balance -278.333 ml -263.500 ml Free Water 100 ml IV Total 776.667 ml 616.500 ml Tube Feeding 720 ml 240 ml Other 60 ml Output Urine Total 1875 ml 1180 ml Laboratory Tests 02/05/21 03:00: White Blood Count 13.2H, Red Blood Count 4.19L, Hemoglobin 12.1L, Hematocrit 38.0L, Mean Corpuscular Volume 91, Mean Corpuscular Hemoglobin 28.9, Mean Corpuscular Hemoglobin Concent 31.8L, Red Cell Distribution Width 16.4H, Platelet Count 458H, Mean Platelet Volume 7.3, Neutrophils (%) (Auto) 69.9, Lymphocytes (%) (Auto) 21.7, Monocytes (%) (Auto) 6.1, Eosinophils (%) (Auto) 1.2, Basophils (%) (Auto) 1.2, Prothrombin Time 12.5H, Prothromb Time International Ratio 1.1, Activated Partial Thromboplast Time 29, Sodium Level 137, Potassium Level 4.0, Chloride Level 100, Carbon Dioxide Level 27, Anion Gap 10, Blood Urea Nitrogen 6L, Creatinine 0.7, Estimat Glomerular Filtration Rate > 60, Glucose Level 175H, Calcium Level 9.3, Total Bilirubin 0.3, Aspartate Amino Transf (AST/SGOT) 12L, Alanine Aminotransferase (ALT/SGPT) 21, Alkaline Phosphatase 128H, Total Protein 7.6, Albumin 2.4L, Globulin 5.2, Albumin/Globulin Ratio 0.5L Height (Feet): 5 Height (Inches): 5.00 Weight (Pounds): 233 General Appearance: no apparent distress EENT: normal ENT inspection Neck: supple Cardiovascular: normal rate Respiratory/Chest: decreased breath sounds Abdomen: hypoactive bowel sounds Extremities: non-tender Assessment/Plan Problem List: (1) Schizophrenia, paranoid type ICD Codes: F20.0 - Paranoid schizophrenia SNOMED: 32350375 (2) DMII (diabetes mellitus, type 2) ICD Codes: E11.9 - Type 2 diabetes mellitus without complications SNOMED: 90044815 (3) Obesity ICD Codes: E66.9 - Obesity, unspecified SNOMED: 214808202, 779439741 (4) COPD (chronic obstructive pulmonary disease) ICD Codes: J44.9 - Chronic obstructive pulmonary disease, unspecified SNOMED: 58373562 (5) Essential hypertension ICD Codes: I10 - Essential (primary) hypertension SNOMED: 12049909 Status: unchanged Assessment/Plan: s/p trach plan PEG for tomorrow Carlos Malhotra MD Feb 05, 2021 15:09
[2021-02-05] MEDS ORDERED: NS 250 ML IVPB ONE (16:00)
--- NOTE | 2021-02-05 17:28 | Internal Med Progress Note ---
Subjective Date of Service: Feb 05, 2021 Physician Name Vickey Brown Attending Physician Geovanny Bradley MD Current Medications Medications (Trade) Dose Ordered Sig/Johnny Route PRN Reason Start Time Stop Time Status Last Admin Dose Admin Acetaminophen (Tylenol) 650 mg Q6H PRN NG Temp >100.5 01/09/21 09:15 02/08/21 09:14 01/26/21 02:05 Acetaminophen (Tylenol) 650 mg Q6H PRN NG Mild Pain (Pain Scale 1-3) 01/09/21 09:15 02/08/21 09:14 02/03/21 04:10 Acetylcysteine (Mucomyst) 200 mg Q6HRT N 02/03/21 13:00 05/04/21 12:59 02/05/21 16:00 Albuterol/ Ipratropium (Albuterol/ Ipratropium) 3 ml Q6HRT N 02/03/21 13:00 02/08/21 12:59 02/05/21 16:00 Chlorhexidine Gluconate (Myranda-Hex 2%) 1 applic DAILY@2000 TOPIC 01/29/21 20:00 04/29/21 19:59 02/04/21 21:05 Dextrose (Dextrose 50%) 25 ml Q30M PRN IV Hypoglycemia 01/06/21 23:45 04/06/21 23:44 Dextrose (Dextrose 50%) 50 ml Q30M PRN IV Hypoglycemia 01/06/21 23:45 04/06/21 23:44 Docosanol (Abreva) 1 gm FIVE TIMES A DAY TP 01/29/21 20:00 04/29/21 19:59 02/05/21 16:08 Fentanyl Citrate 250 ml @ 1 mls/hr Q24H IV 02/04/21 11:00 02/06/21 10:59 02/05/21 11:00 Insulin Aspart (NovoLOG) EVERY 6 HOURS SUBQ 01/09/21 12:00 04/04/21 16:29 02/05/21 13:15 Lansoprazole (Prevacid) 30 mg DAILY GT 01/24/21 09:00 02/15/21 08:59 02/04/21 08:54 Lorazepam (Ativan 2mg/ml 1ml) 0.5 mg Q6H PRN IV For Seizures 02/05/21 03:15 02/12/21 03:14 02/05/21 03:55 Midodrine (Pro-Amatine) 10 mg Q8HR ORAL 01/20/21 14:00 04/20/21 13:59 02/04/21 21:05 Potassium Chloride (K-Dur) 20 meq TWICE A DAY NG 01/20/21 13:00 04/20/21 12:59 02/04/21 17:09 Quetiapine Fumarate (SEROqueL) 100 mg Q12HR ORAL 01/20/21 15:00 03/06/21 14:59 02/04/21 21:05 Valproic Acid (Depakene) 500 mg Q12HR GT 01/22/21 21:00 02/21/21 20:59 02/04/21 21:06 Vancomycin HCl 250 ml @ 166.667 mls/hr Q8H IVPB 02/01/21 09:00 02/06/21 08:59 02/05/21 08:19 Vancomycin HCl ([facility] pharmacy to dose) 1 ea DAILY PRN MISC Per rx protocol 01/25/21 08:15 02/24/21 08:14 Allergies: Coded Allergies: No Known Allergies (Unverified , 01/02/21) ROS Limited/Unobtainable: Yes Subjective 60 YO M admitted with shortness of breath. Now respiratory failure. Cover for Int Med-DR Bradley. ICU. Intubated and sedated Objective Last Vital Signs Date Time Temp Pulse Resp B/P (MAP) Pulse Ox O2 Delivery O2 Flow Rate FiO2 02/05/21 17:00 97 22 85/70 (75) 92 02/05/21 16:00 40 02/05/21 16:00 98.6 02/05/21 16:00 Mechanical Ventilator 02/05/21 03:17 65.0 Laboratory Tests Test 02/05/21 03:00 White Blood Count 13.2 K/UL (4.8-10.8) H Red Blood Count 4.19 M/UL (4.70-6.10) L Hemoglobin 12.1 G/DL (14.2-18.0) L Hematocrit 38.0 % (42.0-52.0) L Mean Corpuscular Volume 91 FL (80-99) Mean Corpuscular Hemoglobin 28.9 PG (27.0-31.0) Mean Corpuscular Hemoglobin Concent 31.8 G/DL (32.0-36.0) L Red Cell Distribution Width 16.4 % (11.6-14.8) H Platelet Count 458 K/UL (150-450) H Mean Platelet Volume 7.3 FL (6.5-10.1) Neutrophils (%) (Auto) 69.9 % (45.0-75.0) Lymphocytes (%) (Auto) 21.7 % (20.0-45.0) Monocytes (%) (Auto) 6.1 % (1.0-10.0) Eosinophils (%) (Auto) 1.2 % (0.0-3.0) Basophils (%) (Auto) 1.2 % (0.0-2.0) Prothrombin Time 12.5 SEC (9.30-11.50) H Prothromb Time International Ratio 1.1 (0.9-1.1) Activated Partial Thromboplast Time 29 SEC (23-33) Sodium Level 137 MMOL/L (136-145) Potassium Level 4.0 MMOL/L (3.5-5.1) Chloride Level 100 MMOL/L (98-107) Carbon Dioxide Level 27 MMOL/L (21-32) Anion Gap 10 mmol/L (5-15) Blood Urea Nitrogen 6 mg/dL (7-18) L Creatinine 0.7 MG/DL (0.55-1.30) Estimat Glomerular Filtration Rate > 60 mL/min (>60) Glucose Level 175 MG/DL (74-106) H Calcium Level 9.3 MG/DL (8.5-10.1) Total Bilirubin 0.3 MG/DL (0.2-1.0) Aspartate Amino Transf (AST/SGOT) 12 U/L (15-37) L Alanine Aminotransferase (ALT/SGPT) 21 U/L (12-78) Alkaline Phosphatase 128 U/L (46-116) H Total Protein 7.6 G/DL (6.4-8.2) Albumin 2.4 G/DL (3.4-5.0) L Globulin 5.2 g/dL Albumin/Globulin Ratio 0.5 (1.0-2.7) L Microbiology Date/Time Source Procedure Growth Status 02/04/21 12:00 Blood Blood Culture - Preliminary NO GROWTH AFTER 24 HOURS Resulted 02/04/21 12:00 Blood Blood Culture - Preliminary NO GROWTH AFTER 24 HOURS Resulted 02/02/21 17:45 Blood Blood Culture - Preliminary NO GROWTH AFTER 48 HOURS Resulted 02/02/21 17:30 Blood Blood Culture - Preliminary Gram Positive Cocci Resulted Intake and Output 02/04/21 02/05/21 19:00 07:00 Intake Total 1596.667 ml 916.500 ml Output Total 1875 ml 1180 ml Balance -278.333 ml -263.500 ml Free Water 100 ml IV Total 776.667 ml 616.500 ml Tube Feeding 720 ml 240 ml Other 60 ml Output Urine Total 1875 ml 1180 ml Objective Objective General: awake, responsive , confused. HEENT: NCAT, sclera anicteric, PERRL, EOMI. Neck: Supple, no significant jugular venous distention, Lungs: mech vent; decreased air at the bases, occasional crackles, no Wheeze. Heart: Regular rate and rhythm, normal S1/S2, no murmurs Abdomen: soft, nontender, nondistended. Normoactive bowel sound, obesity. / Rectal: Refused and deferred. Extremities: Left LE: No Cyanosis , clubbing or edema. Right LE AKA. Neuro: A&O x 2, Able to move all extremities Skin: warm, no rashes or lesions. Assessment/Plan Assessment/Plan Assessment/Plan Assessment/Plan (1) Pneumonia due to COVID-19 virus ICD Codes: U07.1 - COVID-19; J12.82 - Pneumonia due to coronavirus disease 2019 SNOMED: 393098279933262743 (2) Acute hypercapnic respiratory failure ICD Codes: J96.02 - Acute respiratory failure with hypercapnia SNOMED: 006365869 (3) Respiratory failure with hypoxia ICD Codes: J96.91 - Respiratory failure, unspecified with hypoxia SNOMED: 70399008831837668 Qualifiers: Qualified Codes: J96.01 - Acute respiratory failure with hypoxia (4) COPD (chronic obstructive pulmonary disease) ICD Codes: J44.9 - Chronic obstructive pulmonary disease, unspecified SNOMED: 74403502 (5) History of deep venous thrombosis or pulmonary embolus SNOMED: 549221277 (6) Obesity ICD Codes: E66.9 - Obesity, unspecified SNOMED: 157414604, 806789394 (7) Essential hypertension ICD Codes: I10 - Essential (primary) hypertension SNOMED: 82133171 (8) Diabetes mellitus type 2 in obese ICD Codes: E11.69 - Type 2 diabetes mellitus with other specified complication; E66.9 - Obesity, unspecified SNOMED: 59103461 (9) History of hydrocephalus ICD Codes: Z86.69 - Personal history of other diseases of the nervous system and sense organs SNOMED: 164927594 (10) Schizophrenia ICD Codes: F20.9 - Schizophrenia, unspecified SNOMED: 31687146 (11) Bipolar 1 disorder ICD Codes: F31.9 - Bipolar disorder, unspecified SNOMED: 318543807 (12) Anticoagulant long-term use ICD Codes: Z79.01 - correction (current) use of anticoagulants SNOMED: 991670516 13. Sepsis=gram pos cocci 14. thrush Assessment/Plan: Optimize pulmonary hygiene/mobilize as tolerated Non Rebreather mask>BIPAP>intubated S/P Remdesivir IV S/P Solu-Medrol 40 mg IV twice a day. Abx = vanco F/U Cx's Monitor volumes and renal function DVT Px: Coumadin DC IV fluid Start diet Monitor blood glucose level closely. On levophed, fentanyl and propofol drips Pulmonary=Dr Luis ID=Dr Gomez Psych consult=Dr Gallegos; continue seroquel continue nystatin await tracheostomy Optimize pulmonary hygiene/mobilize as tolerated Completed Remdesivir IV Abx: Vanco IV and Zosyn IV F/U Cx's Monitor volumes and renal function DVT Px: Coumadin Monitor blood glucose level closely. FULL Code Tolerated Tube feeding @ 60 cc/hr. Vickey Brown MD Feb 05, 2021 17:28
--- NOTE | 2021-02-05 17:33 | Diagnostic Imaging Report ---
EXAM: XRAY Abdomen 1v HISTORY: NG tube placement. COMPARISON: 01/06/2021. TECHNIQUE: Frontal view of of the upper abdomen obtained. FINDINGS: There is an NG tube in the stomach. Nonspecific bowel gas pattern noted with mild gaseous distention of several small bowel loops. There is an IVC filter noted. No pathologic calcification seen. There is no sign of free air. No acute abnormality noted of the visualized osseous structures. IMPRESSION: NG TUBE IN STOMACH. IVC ALSO IDENTIFIED. NONSPECIFIC BOWEL GAS PATTERN.
--- NOTE | 2021-02-05 18:59 | Operative Note - Dictated ---
DATE OF OPERATION: 02/05/2021 PREOPERATIVE DIAGNOSES: 1. Respiratory insufficiency. 2. COVID positive. POSTOPERATIVE DIAGNOSES: 1. Respiratory insufficiency. 2. COVID positive. OPERATION PERFORMED: Tracheostomy. ATTENDING SURGEON: Ki Strong MD. HVAC ESTIMATOR: None. ANESTHESIOLOGIST: Trevor Walker MD. ANESTHESIA: GETA plus local. ESTIMATED BLOOD LOSS: Minimal. IV FLUIDS: Please see anesthesia records. COMPLICATIONS: None. DRAINS: None. COUNTS: Sponge and needle count correct x2. WOUND CLASSIFICATION: Class 3. INDICATIONS FOR PROCEDURE: This is a 60-year-old male COVID positive with respiratory insufficiency on ventilatory support for a prolonged period of time prior weaning vent and now stable and ready for tracheostomy. Discussed with pulmonology team, medical teams and consent obtained for tracheostomy, which was indicated and recommended given the patient's condition and prolonged ventilatory support requirement. OPERATIVE NOTE: The patient was taken to the operating room and placed on the operating table in supine position with bilateral arms down. All bony prominences were well padded. SCDs placed. Preoperative time-out was taken identifying the patient, procedure, operative staff, and surgical staff. General anesthesia was induced. The patient already had an ET tube in place. Shoulder roll was placed. Neck was hyperextended. Neck was prepped and draped in standard surgical fashion. Anatomical landmarks were identified. Local anesthetic infiltrated. Skin incision made two fingerbreadths above the sternal notch, carried down through subcutaneous tissue, platysma and down to the median raphe, which was identified, divided, and the strap muscles mobilized laterally. The trachea was identified. First and second tracheal rings clearly dissected out and a window was made between the first and second tracheal ring. The ET tube was identified, slowly withdrawn by the anesthesiologist and once above the level of the cords, 8-Irish Shiley tracheostomy was inserted under direct visualization without complication. Tracheostomy balloon insufflated and the patient ventilated through tracheostomy with end-tidal CO2 identified in good volumes. Lateral edges of the wound reapproximated using 2-0 Monocryl sutures followed by trach tie and dressings. The patient tolerated the procedure well and was taken directed to the intensive care unit in stable condition. Ki Strong M.D. DR: OWEN JOB#: [id number] CC:
[2021-02-05] MEDS: Dyna-Hex 2% Top Sol 2oz TOPIC SCH (21:08)
[2021-02-06] VITALS (39 sets, daily range): BP systolic 90–144; BP diastolic 51–88
[2021-02-06] MEDS ORDERED: D5NS 1,000 ML IV SCH
[2021-02-06] MEDS ORDERED: Metoclopramide 10mg/2ml Inj IVP PRN (00:15)
[2021-02-06] MEDS: Vancomycin 1.25gm/250ml Premix IVPB SCH ×3 (01:00→18:00)
[2021-02-06 05:10] LABS: BASOPHILS % (AUTO) 4.3 % (0.0-2.0); EOSINOPHILS % (AUTO) 2.5 % (0.0-3.0); HEMOGLOBIN 10.4 G/DL (14.2-18.0); LYMPHOCYTES % (AUTO) 18.7 % (20.0-45.0); MEAN CORPUSCULAR VOLUME 91 FL (80-99); MONOCYTES % (AUTO) 10.6 % (1.0-10.0); NEUTROPHILS % (AUTO) 63.9 % (45.0-75.0); PLATELET COUNT 390 K/UL (150-450); RED BLOOD COUNT 3.63 M/UL (4.70-6.10); RED CELL DISTRIBUTION WIDTH 16.2 % (11.6-14.8)
[2021-02-06 05:38] LABS: ALANINE AMINOTRANSFERASE 15 U/L (12-78); ALBUMIN 1.9 G/DL (3.4-5.0); ALBUMIN/GLOBULIN RATIO 0.4 (1.0-2.7); ALKALINE PHOSPHATASE 97 U/L (46-116); ANION GAP 10 mmol/L (5-15); ASPARTATE AMINO TRANSFERASE 14 U/L (15-37); BILIRUBIN,TOTAL 0.3 MG/DL (0.2-1.0); BLOOD UREA NITROGEN 4 mg/dL (7-18); CALCIUM 8.8 MG/DL (8.5-10.1); CARBON DIOXIDE 26 MMOL/L (21-32); CHLORIDE 103 MMOL/L (98-107); CREATININE 0.6 MG/DL (0.55-1.30); POTASSIUM 3.7 MMOL/L (3.5-5.1); SODIUM 139 MMOL/L (136-145)
[2021-02-06] MEDS: fentaNYL 2500mcg/NS 250ml 250 ML IV SCH (05:55)
[2021-02-06] MEDS: Midodrine 10mg tab ORAL SCH ×3 (06:00→19:54)
[2021-02-06] MEDS: NovoLOG Insulin Flexpen SUBQ SCH ×4 (06:00→18:26)
[2021-02-06] MEDS ORDERED: fentaNYL 2500mcg/NS 250ml 250 ML IV SCH (07:00)
[2021-02-06] MEDS: Abreva 10% cream 2gm TP SCH ×3 (07:20→12:06)
[2021-02-06] MEDS: Albuterol/Ipratropium 3ml neb HHN SCH ×3 (07:37→19:00)
[2021-02-06] MEDS: Acetylcysteine 20% Soln 4ml HHN SCH ×3 (07:37→19:00)
--- NOTE | 2021-02-06 07:56 | Cardiology Report ---
APPROVED REPORT EXAM: Two-dimensional and M-mode echocardiogram with Doppler and color Doppler. INDICATION Endocarditis M-Mode DIMENSIONS IVSd0.7 (0.7-1.1cm)Left Atrium (MM)3.1 (1.6-4.0cm) LVDd5.1 (3.5-5.6cm)Aortic Root2.9 (2.0-3.7cm) PWd0.8 (0.7-1.1cm)Aortic Cusp Exc.1.7 (1.5-2.0cm) IVSs1.7 cmEPSS0.8 (>1.0cm) LVDs2.7 (2.5-4.0cm) PWs1.7 cm <Conclusion> Technically difficult study due to poor acoustic windows. Study quality precludes accurate assessment of regional wall motion. Normal left ventricular chamber size, systolic function and wall motion. Left ventricular ejection fraction estimated to be 55 %. No evidence of left ventricular hypertrophy. No evidence of pericardial effusion. All other cardiac chamber sizes are within normal limits. Focal aortic valve sclerosis with adequate cusp excursion. Thickened mitral valve leaflets with normal excursion. Mitral annulus and aortic root calcification. Pulmonic valve not well visualized. Normal tricuspid valve structure. IVC is normal in size with physiological collapse. A color flow and spectral Doppler study was performed and revealed: No aortic regurgitation. Trace mitral regurgitation. Mitral diastolic velocities suggest mild left ventricular diastolic dysfunction (Grade I). Trace tricuspid regurgitation. Tricuspid systolic velocities suggests peak right ventricular systolic pressure of 25 mmHg. No pulmonic regurgitation present.
--- NOTE | 2021-02-06 08:13 | Infectious Diseases Prog Note ---
Assessment/Plan 60yo M with: Septic SHock Receurrent Gram postiive bacteremia r/o gentry infection -01/25 Bcx / sets GPC clustesr Staph epi bacteremia ? infected fem line , Sp removal 02/01 01/10 BCx 12/01 +Staph epi 01/13 BCx Neg 01/25 BCx CoNS /2 01/28 BCx - CoNS /2 01/31/21 BCx - NGTD 02/02/21 BCx - 12/01 GPC 02/04/21 BCx - NGTD COVID pna, severe Acute hypoxia 01/01 COVID pna >> intubated 01/06- 50% FIo2 Febrile to 103; imporving Normal WBC Elevated AST 51 01/01 Tested positive for COVID at [facility] 01/02 COVID PCR positive 01/02 BCx NTD CXR: Multifocal pna MRSA nares neg 01/06 Intubated in ICU CXR: 1. Appropriately positioned endotracheal and enteric tubes. 2. Stable bilateral airspace disease. 01/07 Resp cx +Yasmine albicans (colonizer) 01/11 CXR: Interval improved bilateral lung aeration. Bibasilar infiltrates/atelectasis. Cr 1.1 PICC placement HIV screen neg PMH: DM2 COPD HTN SNF resident PICC placed 01/30/21 Plan: Cont Vancomycin # 15 Will be following the WBCs Repeat Blood Cx Monitor temps 02/01/21 SP Zosyn #7 01/22/21 steroids #19, on methylpred 20 IV q12 - defer course to Pulm/Primary, now tapering 01/19/21 SP Zosyn #10 01/14 SP vanco IV #1 01/09 SP CTX #7 01/07 SP azithro #5, RDV #5 This institution does not have access to convalescent plasma and only recommended to give in setting of clinical trial Monitor temp curve, hemodynamics Monitor resp status Rpt Blood Cx 2D echo D/w RN Thank you for this consult. [facility] will continue to follow. Subjective Allergies: Coded Allergies: No Known Allergies (Unverified , 01/02/21) Afebrile Remains on Vent 45% O2 Mild Leukocytosis resolved Objective Last 24 Hour Vital Signs Date Time Temp Pulse Resp B/P (MAP) Pulse Ox O2 Delivery O2 Flow Rate FiO2 02/06/21 07:41 94 21 94 Mechanical Ventilator 45 115 22 45 02/06/21 07:00 98 23 125/83 (97) 97 02/06/21 07:00 22 133/89 Mechanical Ventilator 50 02/06/21 06:00 102 21 130/87 (101) 100 02/06/21 06:00 22 134/90 Mechanical Ventilator 50 02/06/21 05:55 21 134/90 Mechanical Ventilator 65.0 50 02/06/21 05:00 23 130/88 Mechanical Ventilator 50 02/06/21 05:00 98 25 129/84 (99) 98 02/06/21 04:00 97 02/06/21 04:00 Mechanical Ventilator 02/06/21 04:00 50 02/06/21 04:00 22 118/77 Mechanical Ventilator 50 02/06/21 04:00 99.0 90 22 116/74 (88) 99 02/06/21 03:30 96 24 106/65 (79) 97 02/06/21 03:00 97 22 95/59 (71) 97 02/06/21 03:00 22 93/57 Mechanical Ventilator 40 02/06/21 02:53 94 21 97 Mechanical Ventilator 50 97 22 50 02/06/21 02:30 99 22 99/71 (80) 98 02/06/21 02:00 93 22 91/59 (70) 97 02/06/21 02:00 22 92/56 Mechanical Ventilator 40 02/06/21 01:00 21 90/52 Mechanical Ventilator 50 02/06/21 01:00 101 22 90/52 (65) 96 02/06/21 00:30 104 22 93/51 (65) 95 02/06/21 00:00 98.4 101 22 106/66 (79) 95 02/06/21 00:00 50 02/06/21 00:00 98 02/06/21 00:00 22 98/56 Mechanical Ventilator 50 02/06/21 00:00 Mechanical Ventilator 02/05/21 23:23 96 22 50 02/05/21 23:00 22 100/65 Mechanical Ventilator 50 02/05/21 23:00 96 22 91/62 (72) 96 02/05/21 22:30 114 23 96/78 (84) 99 02/05/21 22:08 103 22 91/58 (69) 95 02/05/21 22:00 22 91/58 Mechanical Ventilator 50 02/05/21 22:00 101 22 90/54 (66) 95 02/05/21 21:00 22 95/66 Mechanical Ventilator 50 02/05/21 21:00 97 22 103/72 (82) 97 02/05/21 20:00 Mechanical Ventilator 02/05/21 20:00 98.6 95 22 93/59 (70) 95 02/05/21 20:00 91 02/05/21 20:00 22 91/59 Mechanical Ventilator 50 02/05/21 20:00 50 02/05/21 19:54 22 102/61 Mechanical Ventilator 65.0 50 02/05/21 19:53 21 102/61 Mechanical Ventilator 50 02/05/21 19:30 99 22 96 Mechanical Ventilator 50 101 22 50 02/05/21 19:00 93 22 103/61 (75) 96 02/05/21 19:00 22 102/61 Mechanical Ventilator 50 02/05/21 18:00 100 22 99/67 (78) 94 02/05/21 18:00 22 98/64 Mechanical Ventilator 50 02/05/21 17:00 97 22 85/70 (75) 92 02/05/21 17:00 22 85/51 Mechanical Ventilator 50 02/05/21 16:05 50 02/05/21 16:01 92 02/05/21 16:00 40 02/05/21 16:00 98.6 93 22 86/56 (66) 94 02/05/21 16:00 Mechanical Ventilator 02/05/21 16:00 22 85/52 Mechanical Ventilator 50 02/05/21 16:00 99 22 98 Mechanical Ventilator 50 97 22 40 02/05/21 15:00 102 22 89/70 (76) 94 02/05/21 15:00 22 89/70 Mechanical Ventilator 40 02/05/21 14:00 99 22 89/70 (76) 95 02/05/21 14:00 22 91/50 Mechanical Ventilator 40 02/05/21 13:00 110 22 85/53 (64) 94 02/05/21 13:00 22 92/53 Mechanical Ventilator 40 02/05/21 12:00 105 02/05/21 12:00 21 105/65 Mechanical Ventilator 40 02/05/21 12:00 98.9 103 19 117/75 (89) 100 103 02/05/21 12:00 40 02/05/21 12:00 Mechanical Ventilator 02/05/21 11:00 20 138/82 Mechanical Ventilator 40 02/05/21 11:00 76 22 131/83 (99) 94 02/05/21 10:55 108 29 50 02/05/21 10:54 112 20 98 02/05/21 10:53 101 20 97 02/05/21 10:00 20 118/70 Mechanical Ventilator 40 02/05/21 09:00 107 22 109/64 (79) 94 02/05/21 09:00 22 107/72 Mechanical Ventilator 40 02/05/21 08:14 108 29 98 Mechanical Ventilator 40 104 24 40 Height (Feet): 5 Height (Inches): 5.00 Weight (Pounds): 223 Gen: NAD on Vent 45% O2 HEENT: NCAT, ETT, OGT Pulm: BL chest rise, RRR Skin: No visible rashes Neuro: Not following Lines STEPHANIE PICC lines in place Microbiology Date/Time Source Procedure Growth Status 02/04/21 12:00 Blood Blood Culture - Preliminary NO GROWTH AFTER 24 HOURS Resulted 02/04/21 12:00 Blood Blood Culture - Preliminary NO GROWTH AFTER 24 HOURS Resulted Laboratory Tests Test 02/06/21 03:08 02/06/21 07:49 White Blood Count 8.0 K/UL (4.8-10.8) Red Blood Count 3.63 M/UL (4.70-6.10) L Hemoglobin 10.4 G/DL (14.2-18.0) L Hematocrit 33.0 % (42.0-52.0) L Mean Corpuscular Volume 91 FL (80-99) Mean Corpuscular Hemoglobin 28.6 PG (27.0-31.0) Mean Corpuscular Hemoglobin Concent 31.4 G/DL (32.0-36.0) L Red Cell Distribution Width 16.2 % (11.6-14.8) H Platelet Count 390 K/UL (150-450) Mean Platelet Volume 7.3 FL (6.5-10.1) Neutrophils (%) (Auto) 63.9 % (45.0-75.0) Lymphocytes (%) (Auto) 18.7 % (20.0-45.0) L Monocytes (%) (Auto) 10.6 % (1.0-10.0) H Eosinophils (%) (Auto) 2.5 % (0.0-3.0) Basophils (%) (Auto) 4.3 % (0.0-2.0) H Sodium Level 139 MMOL/L (136-145) Potassium Level 3.7 MMOL/L (3.5-5.1) Chloride Level 103 MMOL/L (98-107) Carbon Dioxide Level 26 MMOL/L (21-32) Anion Gap 10 mmol/L (5-15) Blood Urea Nitrogen 4 mg/dL (7-18) L Creatinine 0.6 MG/DL (0.55-1.30) Estimat Glomerular Filtration Rate > 60 mL/min (>60) Glucose Level 97 MG/DL (74-106) Calcium Level 8.8 MG/DL (8.5-10.1) Total Bilirubin 0.3 MG/DL (0.2-1.0) Aspartate Amino Transf (AST/SGOT) 14 U/L (15-37) L Alanine Aminotransferase (ALT/SGPT) 15 U/L (12-78) Alkaline Phosphatase 97 U/L (46-116) Total Protein 6.5 G/DL (6.4-8.2) Albumin 1.9 G/DL (3.4-5.0) L Globulin 4.6 g/dL Albumin/Globulin Ratio 0.4 (1.0-2.7) L Vancomycin Level Trough Pending Current Medications Medications (Trade) Dose Ordered Sig/Johnny Route PRN Reason Start Time Stop Time Status Last Admin Dose Admin Acetaminophen (Tylenol) 650 mg Q6H PRN NG Temp >100.5 01/09/21 09:15 02/08/21 09:14 01/26/21 02:05 Acetaminophen (Tylenol) 650 mg Q6H PRN NG Mild Pain (Pain Scale 1-3) 01/09/21 09:15 02/08/21 09:14 02/03/21 04:10 Acetylcysteine (Mucomyst) 200 mg Q6HRT [facility] 02/03/21 13:00 05/04/21 12:59 02/06/21 07:37 Albuterol/ Ipratropium (Albuterol/ Ipratropium) 3 ml Q6HRT [facility] 02/03/21 13:00 02/08/21 12:59 02/06/21 07:37 Chlorhexidine Gluconate (Myranda-Hex 2%) 1 applic DAILY@2000 TOPIC 01/29/21 20:00 04/29/21 19:59 02/05/21 21:08 Dextrose (Dextrose 50%) 25 ml Q30M PRN IV Hypoglycemia 01/06/21 23:45 04/06/21 23:44 Dextrose (Dextrose 50%) 50 ml Q30M PRN IV Hypoglycemia 01/06/21 23:45 04/06/21 23:44 Dextrose/Sodium Chloride 1,000 ml @ 75 mls/hr [id number] IV 02/06/21 00:00 03/08/21 00:00 02/06/21 00:15 Docosanol (Abreva) 1 gm FIVE TIMES A DAY TP 01/29/21 20:00 04/29/21 19:59 02/06/21 07:20 Fentanyl Citrate 250 ml @ 0 mls/hr Q24H PRN IV . 02/06/21 18:00 02/08/21 17:59 Fentanyl Citrate 250 ml @ 1 mls/hr Q24H IV 02/04/21 11:00 02/06/21 18:00 02/06/21 05:55 Insulin Aspart (NovoLOG) EVERY 6 HOURS SUBQ 01/09/21 12:00 04/04/21 16:29 02/05/21 13:15 Lansoprazole (Prevacid) 30 mg DAILY GT 01/24/21 09:00 02/15/21 08:59 02/04/21 08:54 Lorazepam (Ativan 2mg/ml 1ml) 0.5 mg Q6H PRN IV For Seizures 02/05/21 03:15 02/12/21 03:14 02/05/21 03:55 Lorazepam (Ativan 2mg/ml 1ml) 1 mg Q2H PRN IV For Anxiety 02/06/21 08:15 02/13/21 08:14 Metoclopramide HCl (Reglan) 5 mg Q6H PRN IVP Nausea & Vomiting 02/06/21 00:15 03/08/21 00:14 Midodrine (Pro-Amatine) 10 mg Q8HR ORAL 01/20/21 14:00 04/20/21 13:59 02/05/21 21:09 Ondansetron HCl (Zofran) 4 mg Q6H PRN IVP Nausea & Vomiting 02/06/21 00:15 03/08/21 00:14 Potassium Chloride (K-Dur) 20 meq TWICE A DAY NG 01/20/21 13:00 04/20/21 12:59 02/05/21 17:45 Quetiapine Fumarate (SEROqueL) 100 mg Q12HR ORAL 01/20/21 15:00 03/06/21 14:59 02/05/21 21:09 Valproic Acid (Depakene) 500 mg Q12HR GT 01/22/21 21:00 02/21/21 20:59 02/05/21 21:09 Vancomycin HCl 250 ml @ 166.667 mls/hr Q8H IVPB 02/01/21 09:00 02/11/21 08:59 02/06/21 01:00 Vancomycin HCl (Vanco pharmacy to dose) 1 ea DAILY PRN MISC Per rx protocol 01/25/21 08:15 02/24/21 08:14 Anuel Crespo MD Feb 06, 2021 08:13
[2021-02-06] MEDS ORDERED: LORazepam Inj 2mg/ml 1ml IV PRN ×2 (08:15→09:30)
--- NOTE | 2021-02-06 08:57 | Pre-Procedure Note/Attestation ---
Pre-Procedure Note/Attestation Complete Prior to Procedure Planned Procedure: not applicable Procedure Narrative: egd/peg Indications for Procedure Pre-Operative Diagnosis: dysphagia Attestation I attest that I discussed the nature of the procedure; its benefits; risks and complications; and alternatives (and the risks and benefits of such alternatives), prior to the procedure, with the patient (or the patient's legal congressional representative). I attest that, if there was a reasonable possibility of needing a blood transfu mesha, the patient (or the patient's legal congressional representative) was given the [facility] standardized written summary, pursuant to the [place] Blood Safety Act ([place] Health and Safety Code # 1645, as amended). I attest that I re-evaluated the patient just prior to the surgery and that there has been no change in the patient's H&P, except as documented below: Carlos Malhotra MD Feb 06, 2021 08:57
[2021-02-06] MEDS: Valproic Acid 250mg/5ml Liquid GT SCH ×2 (09:14→19:53)
[2021-02-06] MEDS ORDERED: HYDROcodone/Acetamin 7.5/325 tab ORAL PRN (09:30)
[2021-02-06] MEDS ORDERED: oxyCODONE HCL/Acetaminophen 5/325mg ORAL PRN (09:30)
[2021-02-06] MEDS ORDERED: Ketorolac 30mg Inj IV PRN ×2 (09:30)
[2021-02-06] MEDS ORDERED: Labetalol 5mg/ml 20ml vial IV PRN (09:30)
[2021-02-06] MEDS ORDERED: LR 1000ml 1,000 ML IVLG SCH (09:30)
[2021-02-06] MEDS ORDERED: Hydromorphone 0.5mg/0.5ml inj IVP PRN (09:30)
[2021-02-06] MEDS ORDERED: Atropine Sulfate 0.4mg/ml inj IVP PRN (09:30)
[2021-02-06] MEDS ORDERED: Meperidine 25mg/1ml Inj (FOR RIGORS ONLY) IV PRN (09:30)
[2021-02-06] MEDS ORDERED: fentaNYL 100 mcg/2 mL IV PRN (09:30)
[2021-02-06] MEDS ORDERED: HYDROcodone/Acetamin 5/325 tab ORAL PRN (09:30)
[2021-02-06] MEDS ORDERED: Midazolam 2mg/2ml Inj IVP PRN (09:30)
[2021-02-06] MEDS ORDERED: DiphenhydrAMINE 50mg/ml Inj IVP PRN (09:30)
--- NOTE | 2021-02-06 09:58 | Immediate Post-Op Evaluation ---
Immediate Post-Op Evalulation Immediate Post-Op Evalulation Procedure: PEG Date of Evaluation: Feb 06, 2021 Time of Evaluation: 10:43 IV Fluids: 10 cc NS Blood Products: 0 Estimated Blood Loss: 3 Urinary Output: 0 Blood Pressure Systolic: 131 Blood Pressure Diastolic: 73 Pulse Rate: 111 Respiratory Rate: 20 - Mech Vent O2 Sat by Pulse Oximetry: 92 Temperature (Fahrenheit): 98.6 Pain Score (1-10): 0 Nausea: No Vomiting: No Complications 0 Patient Status: no response, patent, ventilated, none Hydration Status: adequate Trevor Walker MD Feb 06, 2021 09:58
--- NOTE | 2021-02-06 09:59 | 48 Hour Post Anesthesia Eval ---
Post Anesthesia Evaluation Procedure: PEG Date of Evaluation: Feb 06, 2021 Time of Evaluation: 12:56 Blood Pressure Systolic: 134 0: 78 Pulse Rate: 113 Respiratory Rate: 20 - Mech Vent Temperature (Fahrenheit): 98.6 O2 Sat by Pulse Oximetry: 97 Airway: patent Nausea: No Vomiting: No Pain Intensity: 0 Hydration Status: adequate Cardiopulmonary Status: Stable Mental Status/LOC: patient returned to baseline Follow-up Care/Observations: 0 Post-Anesthesia Complications: 0 Follow-up care needed: N/A Trevor Walker MD Feb 06, 2021 09:59
[2021-02-06] MEDS ORDERED: LR 1000ml ONE (10:00)
[2021-02-06] MEDS ORDERED: Lidocaine 1% MPF 10mg/ml 5ml ONE (10:00)
[2021-02-06] MEDS ORDERED: NS 500ML IVPB ONE (10:50)
--- NOTE | 2021-02-06 11:52 | Internal Med Progress Note ---
Subjective Date of Service: Feb 06, 2021 Physician Name Vickey Brown Attending Physician Geovanny Bradley MD Current Medications Medications (Trade) Dose Ordered Sig/Johnny Route PRN Reason Start Time Stop Time Status Last Admin Dose Admin Acetaminophen (Tylenol) 650 mg Q6H PRN NG Temp >100.5 01/09/21 09:15 02/08/21 09:14 01/26/21 02:05 Acetaminophen (Tylenol) 650 mg Q6H PRN NG Mild Pain (Pain Scale 1-3) 01/09/21 09:15 02/08/21 09:14 02/03/21 04:10 Acetaminophen/ Hydrocodone Bitart ([place] 5/325) 1 tab Q1H PRN ORAL Mild Pain (Pain Scale 1-3) 02/06/21 09:30 02/06/21 18:00 Acetaminophen/ Hydrocodone Bitart ([place] 7.5/325) 1 tab Q1H PRN ORAL Moderate Pain (Pain Scale 4-6) 02/06/21 09:30 02/06/21 18:00 Acetylcysteine (Mucomyst) 200 mg Q6HRT N 02/03/21 13:00 05/04/21 12:59 02/06/21 07:37 Al Hydroxide/Mg Hydroxide (Mylanta) 15 ml Q1H PRN ORAL gi upset 02/06/21 09:30 02/06/21 18:00 Albuterol/ Ipratropium (Albuterol/ Ipratropium) 3 ml Q6HRT N 02/03/21 13:00 02/08/21 12:59 02/06/21 07:37 Atropine Sulfate (Atropine 0.4mg/ ml) 0.5 mg Q5M PRN IVP HR<40 02/06/21 09:30 02/06/21 18:00 Chlorhexidine Gluconate (Myranda-Hex 2%) 1 applic DAILY@1999 TOPIC 01/29/21 20:00 04/29/21 19:59 02/05/21 21:08 Dextrose (Dextrose 50%) 25 ml Q30M PRN IV Hypoglycemia 01/06/21 23:45 04/06/21 23:44 Dextrose (Dextrose 50%) 50 ml Q30M PRN IV Hypoglycemia 01/06/21 23:45 04/06/21 23:44 Dextrose/Sodium Chloride 1,000 ml @ 75 mls/hr [id number] IV 02/06/21 00:00 03/08/21 00:00 02/06/21 00:15 Diphenhydramine HCl (Benadryl) 25 mg Q15M PRN IVP Itching 02/06/21 09:30 02/06/21 18:00 Docosanol (Abreva) 1 gm FIVE TIMES A DAY TP 01/29/21 20:00 04/29/21 19:59 02/06/21 09:19 Fentanyl Citrate (Sublimaze 100 mcg/2 mL) 25 mcg Q10M PRN IV Moderate Pain (Pain Scale 4-6) 02/06/21 09:30 02/06/21 18:00 Hydralazine HCl (Apresoline) 5 mg Q30M PRN IV SBP>160 / DBP>90 02/06/21 09:30 02/06/21 18:00 Hydromorphone HCl (Dilaudid) 0.5 mg Q15M PRN IVP Severe Pain (Pain Scale 7-10) 02/06/21 09:30 02/06/21 18:00 Insulin Aspart (NovoLOG) EVERY 6 HOURS SUBQ 01/09/21 12:00 04/04/21 16:29 02/05/21 13:15 Ketorolac Tromethamine (Toradol 30mg) 15 mg Q1H PRN IV Moderate Breakthru Pain (5-7) 02/06/21 09:30 02/06/21 18:00 Ketorolac Tromethamine (Toradol 30mg) 30 mg Q1H PRN IV Severe Breakthru Pain (>7) 02/06/21 09:30 02/06/21 18:00 Labetalol HCl (Normodyne) 5 mg Q10M PRN IV SBP>160 / DBP>90 02/06/21 09:30 02/06/21 18:00 Lansoprazole (Prevacid) 30 mg DAILY GT 01/24/21 09:00 02/15/21 08:59 02/06/21 09:14 Lorazepam (Ativan 2mg/ml 1ml) 0.5 mg Q6H PRN IV For Seizures 02/05/21 03:15 02/12/21 03:14 02/05/21 03:55 Lorazepam (Ativan 2mg/ml 1ml) 1 mg Q15M PRN IV For Anxiety 02/06/21 09:30 02/06/21 18:00 Lorazepam (Ativan 2mg/ml 1ml) 1 mg Q2H PRN IV For Anxiety 02/06/21 08:15 02/13/21 08:14 Meperidine HCl (Demerol) 25 mg Q5M PRN IV SHIVERING.MAY REPEAT X 1 02/06/21 09:30 02/06/21 18:00 Metoclopramide HCl (Reglan) 5 mg Q6H PRN IVP Nausea & Vomiting 02/06/21 00:15 03/08/21 00:14 Midazolam HCl (Versed 2mg/2ml vial) 1 mg Q15M PRN IVP For Anxiety 02/06/21 09:30 02/06/21 18:00 Midodrine (Pro-Amatine) 10 mg Q8HR ORAL 01/20/21 14:00 04/20/21 13:59 02/05/21 21:09 Ondansetron HCl (Zofran) 4 mg Q1H PRN IVP Nausea & Vomiting 02/06/21 09:30 02/06/21 18:00 Ondansetron HCl (Zofran) 4 mg Q6H PRN IVP Nausea & Vomiting 02/06/21 00:15 03/08/21 00:14 Oxycodone/ Acetaminophen (Percocet 5-325) 1 tab Q1H PRN ORAL Severe Pain (Pain Scale 7-10) 02/06/21 09:30 02/06/21 18:00 Potassium Chloride (K-Dur) 20 meq TWICE A DAY NG 01/20/21 13:00 04/20/21 12:59 02/06/21 09:15 Quetiapine Fumarate (SEROqueL) 100 mg Q12HR ORAL 01/20/21 15:00 03/06/21 14:59 02/06/21 09:15 Valproic Acid (Depakene) 500 mg Q12HR GT 01/22/21 21:00 02/21/21 20:59 02/06/21 09:14 Vancomycin HCl 250 ml @ 166.667 mls/hr Q8H IVPB 02/01/21 09:00 02/11/21 08:59 02/06/21 09:15 Vancomycin HCl (Vanco pharmacy to dose) 1 ea DAILY PRN MISC Per rx protocol 01/25/21 08:15 02/24/21 08:14 Warfarin Sodium (Coumadin per pharmacy) 1 ea DAILY PRN MISC . 02/07/21 17:00 03/09/21 16:59 Allergies: Coded Allergies: No Known Allergies (Unverified , 01/02/21) ROS Limited/Unobtainable: Yes Subjective 60 YO M admitted with shortness of breath. Now respiratory failure. Cover for Int Med-DR Bradley. ICU. Intubated and sedated. S/P Endoscopy/PEG placement 02/06/21 Objective Last Vital Signs Date Time Temp Pulse Resp B/P (MAP) Pulse Ox O2 Delivery O2 Flow Rate FiO2 02/06/21 11:15 128 30 127/88 (101) 96 02/06/21 11:10 45 02/06/21 10:22 99.5 02/06/21 09:00 Mechanical Ventilator 02/06/21 05:55 65.0 Laboratory Tests Test 02/06/21 03:08 02/06/21 07:49 White Blood Count 8.0 K/UL (4.8-10.8) Red Blood Count 3.63 M/UL (4.70-6.10) L Hemoglobin 10.4 G/DL (14.2-18.0) L Hematocrit 33.0 % (42.0-52.0) L Mean Corpuscular Volume 91 FL (80-99) Mean Corpuscular Hemoglobin 28.6 PG (27.0-31.0) Mean Corpuscular Hemoglobin Concent 31.4 G/DL (32.0-36.0) L Red Cell Distribution Width 16.2 % (11.6-14.8) H Platelet Count 390 K/UL (150-450) Mean Platelet Volume 7.3 FL (6.5-10.1) Neutrophils (%) (Auto) 63.9 % (45.0-75.0) Lymphocytes (%) (Auto) 18.7 % (20.0-45.0) L Monocytes (%) (Auto) 10.6 % (1.0-10.0) H Eosinophils (%) (Auto) 2.5 % (0.0-3.0) Basophils (%) (Auto) 4.3 % (0.0-2.0) H Sodium Level 139 MMOL/L (136-145) Potassium Level 3.7 MMOL/L (3.5-5.1) Chloride Level 103 MMOL/L (98-107) Carbon Dioxide Level 26 MMOL/L (21-32) Anion Gap 10 mmol/L (5-15) Blood Urea Nitrogen 4 mg/dL (7-18) L Creatinine 0.6 MG/DL (0.55-1.30) Estimat Glomerular Filtration Rate > 60 mL/min (>60) Glucose Level 97 MG/DL (74-106) Calcium Level 8.8 MG/DL (8.5-10.1) Total Bilirubin 0.3 MG/DL (0.2-1.0) Aspartate Amino Transf (AST/SGOT) 14 U/L (15-37) L Alanine Aminotransferase (ALT/SGPT) 15 U/L (12-78) Alkaline Phosphatase 97 U/L (46-116) Total Protein 6.5 G/DL (6.4-8.2) Albumin 1.9 G/DL (3.4-5.0) L Globulin 4.6 g/dL Albumin/Globulin Ratio 0.4 (1.0-2.7) L Vancomycin Level Trough 19.3 ug/mL (5.0-12.0) H Microbiology Date/Time Source Procedure Growth Status 02/04/21 12:00 Blood Blood Culture - Preliminary NO GROWTH AFTER 24 HOURS Resulted 02/04/21 12:00 Blood Blood Culture - Preliminary NO GROWTH AFTER 24 HOURS Resulted Intake and Output 02/05/21 02/06/21 19:00 07:00 Intake Total 996.667 ml 1141.333 ml Output Total 960 ml 585 ml Balance 36.667 ml 556.333 ml IV Total 996.667 ml 1141.333 ml Output Urine Total 960 ml 585 ml Objective Objective General: awake, responsive , confused. HEENT: NCAT, sclera anicteric, PERRL, EOMI. Neck: Supple, no significant jugular venous distention, Lungs: mech vent; decreased air at the bases, occasional crackles, no Wheeze. Heart: Regular rate and rhythm, normal S1/S2, no murmurs Abdomen: soft, nontender, nondistended. Normoactive bowel sound, obesity. / Rectal: Refused and deferred. Extremities: Left LE: No Cyanosis , clubbing or edema. Right LE AKA. Neuro: A&O x 2, Able to move all extremities Skin: warm, no rashes or lesions. Assessment/Plan Assessment/Plan Assessment/Plan Assessment/Plan (1) Pneumonia due to COVID-19 virus ICD Codes: U07.1 - COVID-19; J12.82 - Pneumonia due to coronavirus disease 2018 SNOMED: 026660025410963138 (2) Acute hypercapnic respiratory failure ICD Codes: J96.02 - Acute respiratory failure with hypercapnia SNOMED: 987873166 (3) Respiratory failure with hypoxia ICD Codes: J96.91 - Respiratory failure, unspecified with hypoxia SNOMED: 13628962828046517 Qualifiers: Qualified Codes: J96.01 - Acute respiratory failure with hypoxia (4) COPD (chronic obstructive pulmonary disease) ICD Codes: J44.9 - Chronic obstructive pulmonary disease, unspecified SNOMED: 52612808 (5) History of deep venous thrombosis or pulmonary embolus SNOMED: 653448197 (6) Obesity ICD Codes: E66.9 - Obesity, unspecified SNOMED: 870134222, 391364512 (7) Essential hypertension ICD Codes: I10 - Essential (primary) hypertension SNOMED: 17849786 (8) Diabetes mellitus type 2 in obese ICD Codes: E11.69 - Type 2 diabetes mellitus with other specified complication; E66.9 - Obesity, unspecified SNOMED: 87721625 (9) History of hydrocephalus ICD Codes: Z86.69 - Personal history of other diseases of the nervous system and sense organs SNOMED: 100310482 (10) Schizophrenia ICD Codes: F20.9 - Schizophrenia, unspecified SNOMED: 78463056 (11) Bipolar 1 disorder ICD Codes: F31.9 - Bipolar disorder, unspecified SNOMED: 287977255 (12) Anticoagulant long-term use ICD Codes: 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 Sepsis=gram pos cocci 14. thrush Assessment/Plan: Optimize pulmonary hygiene/mobilize as tolerated Non Rebreather mask>BIPAP>intubated S/P Remdesivir IV S/P Solu-Medrol 40 mg IV twice a day. Abx = vanco F/U Cx's Monitor volumes and renal function DVT Px: Coumadin DC IV fluid Start diet Monitor blood glucose level closely. On levophed, fentanyl and propofol drips Pulmonary=Dr Luis ID=Dr Gomez Psych consult=Dr Gallegos; continue seroquel continue nystatin await tracheostomy Optimize pulmonary hygiene/mobilize as tolerated Completed Remdesivir IV Abx: Vanco IV and Zosyn IV F/U Cx's Monitor volumes and renal function DVT Px: Coumadin Monitor blood glucose level closely. FULL Code Tolerated Tube feeding @ 60 cc/hr. S/P endoscopy/PEG plamement 02/06/21 S/P Trach 02/06/21 Vickey Brown MD Feb 06, 2021 11:52
[2021-02-06] MEDS: Acetaminophen 650mg/20.3ml NG PRN ×2 (12:07→22:30)
--- NOTE | 2021-02-06 12:37 | Diagnostic Imaging Report ---
Indication: Shortness of breath Technique: XRAY Chest 1v Comparison: 01/30/2021 Findings: Interval tracheostomy tube placement. NG tube remains in place. Persistent low lung volumes and bilateral infiltrates, similar to the prior exam. No pneumothorax. Heart size and osseous structures stable. Impression: Interval tracheostomy tube placement. Otherwise no significant change compared to the prior exam. Persistent low lung volumes and bilateral infiltrates.
[2021-02-06] MEDS: HYDROmorphone 1mg/ml Carpuject IVP PRN ×2 (13:55→22:30)
--- NOTE | 2021-02-06 14:03 | Nephrology Progress Note ---
Assessment/Plan Problem List: (1) Hyperkalemia (2) Pneumonia due to COVID-19 virus (3) Respiratory failure with hypoxia (4) Obesity (5) Schizophrenia (6) DMII (diabetes mellitus, type 2) Assessment Hyperkalemia Stable renal parameters Hyperglycemia Covid pneumonia due to COVID-19 virus Acute respiratory failure with hypoxia requiring mechanical ventilation History of COPD History of DVT, pulmonary emboli Obese Hypertension History of diabetes Psych condition, schizophrenia, bipolar disease Plan February 06: Full code. Intubated on ventilator. Had tracheostomy. Due for PEG. Continue as is. February 05: Full code. Intubated on ventilator. Due for tracheostomy today as per RN. Renal parameters stable. Continue as is. February 04: Remains full code. Intubated on ventilator. FiO2 40%. Due for tracheostomy. Stable from renal standpoint of view. February 03: Remains intubated on ventilator. FiO2 40%. Discussed with RN. Patient is planned to have tracheostomy. Labs reviewed. Renal parameters stable. February 02: Status quo. Full code. Intubated on ventilator. FiO2 40%. Renal parameters stable. February 01: Status quo. FiO2 40%. Full code. Labs reviewed. Renal parameters stable. January 31: Status quo. FiO2 45%. Full code. Renal parameters stable. Abnormal electrolytes addressed. January 30: Status quo. Remains full code. Intubated. On ventilator. Low magnesium addressed. Continue per consultants. January 29: Status quo. Labs reviewed. Low magnesium addressed. Discussed with JOHAN Ratliff. Continue per consultants. January 28: Status quo. Labs and medication list reviewed. K-Phos supplement ordered. Continue per current treatment plan. January 27: Patient remains full code. Intubated on ventilator. FiO2 50%. Labs reviewed. Renal parameters stable. Medication list reviewed. January 26: Full code. Intubated. On ventilator. FiO2 65%. No CHEM panel drawn today. Continue per consultants. January 25: Status unchanged. Blood pressure low. Remains full code on ventilator. Continue per consultants. Medication list reviewed. INR is 3.8 today. January 24: Status quo. Intubated on ventilator and full code. Labs reviewed. Medication list reviewed. Continue per consultants. January 23: Patient on prone position. IntubatedFiO2 65%. Renal parameters stable. Continue per consultants. Date hospitalization. Possible trach?. January 22: FiO2 50%. Prone position. Labs reviewed. Stable from renal standpoint of view. Continue per consultants. January 21: Full code. Intubated on ventilator. FiO2 40%. Labs reviewed. Renal parameters stable. Continue per consultants. January 20: Status unchanged. Full code. On ventilator. Chest x-ray reviewed. IV fluid discontinued. Potassium supplement given. 1 dose of Lasix given. Albumin bolus given. Midodrine started. Will monitor renal parameters and electrolytes. Discussed with JOHAN Mohamud. January 19: Labs reviewed. Renal parameters stable. Remains full code intubated on ventilator. FiO2 50%. Continue per consultants. January 18: Full code. Intubated. On ventilator. FiO2 down to 35%. No labs drawn today. Continue to monitor renal parameters and electrolytes. January 17: Full code. Intubated on ventilator. FiO2 remains at 60%. Labs reviewed. Renal parameters stable. January 16: Full code. Intubated. Labs reviewed. Renal parameters stable. FiO2 60%. Continue per consultants. January 15: Patient remains intubated and full code. Labs reviewed. Stable renal parameters. January 14: Patient full code. Intubated on ventilator. On prone position until 5 PM. Labs reviewed. Stable from renal standpoint of view. January 13: Labs reviewed. Renal parameters stable. Continue per consultants. Patient remain full code and intubated on ventilator. January 12: Labs reviewed. Renal parameters stable. Patient remains full code. Remains intubated on ventilator and on prone position. Continue per consultants. January 11: Labs reviewed. Renal parameters stable. Continue per consultants. January 10: Labs reviewed. Renal parameters stable. Continue per consultants. Change IV to half-normal saline Kayexalate via NG tube for high potassium Monitor electrolytes and renal parameters Per orders, per consultants Subjective ROS Limited/Unobtainable: Yes Objective Objective Last 24 Hour Vital Signs Date Time Temp Pulse Resp B/P (MAP) Pulse Ox O2 Delivery O2 Flow Rate FiO2 02/06/21 13:00 126 26 122/78 (93) 95 02/06/21 12:37 100.1 02/06/21 12:28 126 32 140/88 96 02/06/21 12:00 45 02/06/21 12:00 128 02/06/21 12:00 100.6 127 18 109/60 (76) 96 02/06/21 12:00 45 02/06/21 12:00 Mechanical Ventilator 02/06/21 11:58 126 26 122/80 96 02/06/21 11:45 126 26 122/80 (94) 96 02/06/21 11:30 128 22 131/84 (100) 97 02/06/21 11:15 128 30 127/88 (101) 96 02/06/21 11:10 128 32 45 02/06/21 11:00 126 28 137/82 (100) 95 02/06/21 10:45 125 27 131/85 (100) 95 02/06/21 10:31 113 20 97 02/06/21 10:30 112 36 144/83 (103) 93 02/06/21 10:30 111 20 92 02/06/21 10:22 99.5 115 20 130/85 (100) 91 02/06/21 10:15 119 28 131/86 (101) 90 02/06/21 10:00 114 31 130/83 (99) 98 02/06/21 09:00 119 31 134/86 (102) 98 02/06/21 09:00 22 134/86 Mechanical Ventilator 45 02/06/21 08:00 100.0 112 22 122/84 (97) 99 02/06/21 08:00 22 122/84 Mechanical Ventilator 45 02/06/21 08:00 45 02/06/21 08:00 Mechanical Ventilator 02/06/21 08:00 105 02/06/21 07:41 94 21 94 Mechanical Ventilator 45 115 22 45 02/06/21 07:00 98 23 125/83 (97) 97 02/06/21 07:00 22 133/89 Mechanical Ventilator 50 02/06/21 06:00 102 21 130/87 (101) 100 02/06/21 06:00 22 134/90 Mechanical Ventilator 50 02/06/21 05:55 21 134/90 Mechanical Ventilator 65.0 50 02/06/21 05:00 23 130/88 Mechanical Ventilator 50 02/06/21 05:00 98 25 129/84 (99) 98 02/06/21 04:00 97 02/06/21 04:00 Mechanical Ventilator 02/06/21 04:00 50 02/06/21 04:00 22 118/77 Mechanical Ventilator 50 02/06/21 04:00 99.0 90 22 116/74 (88) 99 02/06/21 03:30 96 24 106/65 (79) 97 02/06/21 03:00 97 22 95/59 (71) 97 02/06/21 03:00 22 93/57 Mechanical Ventilator 40 02/06/21 02:53 94 21 97 Mechanical Ventilator 50 97 22 50 02/06/21 02:30 99 22 99/71 (80) 98 02/06/21 02:00 93 22 91/59 (70) 97 02/06/21 02:00 22 92/56 Mechanical Ventilator 40 02/06/21 01:00 21 90/52 Mechanical Ventilator 50 02/06/21 01:00 101 22 90/52 (65) 96 02/06/21 00:30 104 22 93/51 (65) 95 02/06/21 00:00 98.4 101 22 106/66 (79) 95 02/06/21 00:00 50 02/06/21 00:00 98 02/06/21 00:00 22 98/56 Mechanical Ventilator 50 02/06/21 00:00 Mechanical Ventilator 02/05/21 23:23 96 22 50 02/05/21 23:00 22 100/65 Mechanical Ventilator 50 02/05/21 23:00 96 22 91/62 (72) 96 02/05/21 22:30 114 23 96/78 (84) 99 02/05/21 22:08 103 22 91/58 (69) 95 02/05/21 22:00 22 91/58 Mechanical Ventilator 50 02/05/21 22:00 101 22 90/54 (66) 95 02/05/21 21:00 22 95/66 Mechanical Ventilator 50 02/05/21 21:00 97 22 103/72 (82) 97 02/05/21 20:00 Mechanical Ventilator 02/05/21 20:00 98.6 95 22 93/59 (70) 95 02/05/21 20:00 91 02/05/21 20:00 22 91/59 Mechanical Ventilator 50 02/05/21 20:00 50 02/05/21 19:54 22 102/61 Mechanical Ventilator 65.0 50 02/05/21 19:53 21 102/61 Mechanical Ventilator 50 02/05/21 19:30 99 22 96 Mechanical Ventilator 50 101 22 50 02/05/21 19:00 93 22 103/61 (75) 96 02/05/21 19:00 22 102/61 Mechanical Ventilator 50 02/05/21 18:00 100 22 99/67 (78) 94 02/05/21 18:00 22 98/64 Mechanical Ventilator 50 02/05/21 17:00 97 22 85/70 (75) 92 02/05/21 17:00 22 85/51 Mechanical Ventilator 50 02/05/21 16:05 50 02/05/21 16:01 92 02/05/21 16:00 40 02/05/21 16:00 98.6 93 22 86/56 (66) 94 02/05/21 16:00 Mechanical Ventilator 02/05/21 16:00 22 85/52 Mechanical Ventilator 50 02/05/21 16:00 99 22 98 Mechanical Ventilator 50 97 22 40 02/05/21 15:00 102 22 89/70 (76) 94 02/05/21 15:00 22 89/70 Mechanical Ventilator 40 Intake and Output 02/05/21 02/06/21 19:00 07:00 Intake Total 996.667 ml 1141.333 ml Output Total 960 ml 585 ml Balance 36.667 ml 556.333 ml IV Total 996.667 ml 1141.333 ml Output Urine Total 960 ml 585 ml Current Medications Medications (Trade) Dose Ordered Sig/Johnny Route PRN Reason Start Time Stop Time Status Last Admin Dose Admin Acetaminophen (Tylenol) 650 mg Q6H PRN NG Temp >100.5 01/09/21 09:15 02/08/21 09:14 02/06/21 12:07 Acetaminophen (Tylenol) 650 mg Q6H PRN NG Mild Pain (Pain Scale 1-3) 01/09/21 09:15 02/08/21 09:14 02/03/21 04:10 Acetaminophen/ Hydrocodone Bitart ([place] 5/325) 1 tab Q1H PRN ORAL Mild Pain (Pain Scale 1-3) 02/06/21 09:30 02/06/21 18:00 Acetaminophen/ Hydrocodone Bitart ([place]ley 7.5/325) 1 tab Q1H PRN ORAL Moderate Pain (Pain Scale 4-6) 02/06/21 09:30 02/06/21 18:00 Acetylcysteine (Mucomyst) 200 mg Q6HRT N 02/03/21 13:00 05/04/21 12:59 02/06/21 07:37 Al Hydroxide/Mg Hydroxide (Mylanta) 15 ml Q1H PRN ORAL gi upset 02/06/21 09:30 02/06/21 18:00 Albuterol/ Ipratropium (Albuterol/ Ipratropium) 3 ml Q6HRT [facility] 02/03/21 13:00 02/08/21 12:59 02/06/21 07:37 Atropine Sulfate (Atropine 0.4mg/ ml) 0.5 mg Q5M PRN IVP HR<40 02/06/21 09:30 02/06/21 18:00 Chlorhexidine Gluconate (Myranda-Hex 2%) 1 applic DAILY@1999 TOPIC 01/29/21 20:00 04/29/21 19:59 02/05/21 21:08 Dextrose (Dextrose 50%) 25 ml Q30M PRN IV Hypoglycemia 01/06/21 23:45 04/06/21 23:44 Dextrose (Dextrose 50%) 50 ml Q30M PRN IV Hypoglycemia 01/06/21 23:45 04/06/21 23:44 Diphenhydramine HCl (Benadryl) 25 mg Q15M PRN IVP Itching 02/06/21 09:30 02/06/21 18:00 Docosanol (Abreva) 1 gm FIVE TIMES A DAY TP 01/29/21 20:00 04/29/21 19:59 02/06/21 12:06 Fentanyl Citrate (Sublimaze 100 mcg/2 mL) 25 mcg Q10M PRN IV Moderate Pain (Pain Scale 4-6) 02/06/21 09:30 02/06/21 18:00 Hydralazine HCl (Apresoline) 5 mg Q30M PRN IV SBP>160 / DBP>90 02/06/21 09:30 02/06/21 18:00 Hydromorphone HCl (Dilaudid) 0.5 mg Q15M PRN IVP Severe Pain (Pain Scale 7-10) 02/06/21 09:30 02/06/21 18:00 Hydromorphone HCl (Dilaudid) 0.5 mg Q2H PRN IVP Severe Pain (Pain Scale 7-10) 02/06/21 13:42 02/13/21 13:41 02/06/21 13:55 Insulin Aspart (NovoLOG) EVERY 6 HOURS SUBQ 01/09/21 12:00 04/04/21 16:29 02/05/21 13:15 Ketorolac Tromethamine (Toradol 30mg) 15 mg Q1H PRN IV Moderate Breakthru Pain (5-7) 02/06/21 09:30 02/06/21 18:00 Ketorolac Tromethamine (Toradol 30mg) 30 mg Q1H PRN IV Severe Breakthru Pain (>7) 02/06/21 09:30 02/06/21 18:00 Labetalol HCl (Normodyne) 5 mg Q10M PRN IV SBP>160 / DBP>90 02/06/21 09:30 02/06/21 18:00 Lansoprazole (Prevacid) 30 mg DAILY GT 01/24/21 09:00 02/15/21 08:59 02/06/21 09:14 Lorazepam (Ativan 2mg/ml 1ml) 0.5 mg Q6H PRN IV For Seizures 02/05/21 03:15 02/12/21 03:14 02/05/21 03:55 Lorazepam (Ativan 2mg/ml 1ml) 1 mg Q15M PRN IV For Anxiety 02/06/21 09:30 02/06/21 18:00 Lorazepam (Ativan 2mg/ml 1ml) 1 mg Q2H PRN IV For Anxiety 02/06/21 08:15 02/13/21 08:14 02/06/21 11:58 Meperidine HCl (Demerol) 25 mg Q5M PRN IV SHIVERING.MAY REPEAT X 1 02/06/21 09:30 02/06/21 18:00 Metoclopramide HCl (Reglan) 5 mg Q6H PRN IVP Nausea & Vomiting 02/06/21 00:15 03/08/21 00:14 Midazolam HCl (Versed 2mg/2ml vial) 1 mg Q15M PRN IVP For Anxiety 02/06/21 09:30 02/06/21 18:00 Midodrine (Pro-Amatine) 10 mg Q8HR ORAL 01/20/21 14:00 5/22/21 13:59 02/06/21 13:54 Ondansetron HCl (Zofran) 4 mg Q1H PRN IVP Nausea & Vomiting 02/06/21 09:30 02/06/21 18:00 Ondansetron HCl (Zofran) 4 mg Q6H PRN IVP Nausea & Vomiting 02/06/21 00:15 03/08/21 00:14 Oxycodone/ Acetaminophen (Percocet 5-325) 1 tab Q1H PRN ORAL Severe Pain (Pain Scale 7-10) 02/06/21 09:30 02/06/21 18:00 Potassium Chloride (K-Dur) 20 meq TWICE A DAY NG 01/20/21 13:00 04/20/21 12:59 02/06/21 09:15 Quetiapine Fumarate (SEROqueL) 100 mg Q12HR ORAL 01/20/21 15:00 03/06/21 14:59 02/06/21 09:15 Valproic Acid (Depakene) 500 mg Q12HR GT 01/22/21 21:00 02/21/21 20:59 02/06/21 09:14 Vancomycin HCl 250 ml @ 166.667 mls/hr Q8H IVPB 02/01/21 09:00 02/11/21 08:59 02/06/21 09:15 Vancomycin HCl ([facility] pharmacy to dose) 1 ea DAILY PRN MISC Per rx protocol 01/25/21 08:15 02/24/21 08:14 Warfarin Sodium (Coumadin per pharmacy) 1 ea DAILY PRN MISC . 02/07/21 17:00 03/09/21 16:59 Laboratory Tests 02/06/21 03:08: White Blood Count 8.0, Red Blood Count 3.63L, Hemoglobin 10.4L, Hematocrit 33.0L , Mean Corpuscular Volume 91, Mean Corpuscular Hemoglobin 28.6, Mean Corpuscular Hemoglobin Concent 31.4L, Red Cell Distribution Width 16.2H, Platelet Count 390, Mean Platelet Volume 7.3, Neutrophils (%) (Auto) 63.9, Lymphocytes (%) (Auto) 18.7L, Monocytes (%) (Auto) 10.6H, Eosinophils (%) (Auto) 2.5, Basophils (%) (Au to) 4.3H, Sodium Level 139, Potassium Level 3.7, Chloride Level 103, Carbon Dioxide Level 26, Anion Gap 10, Blood Urea Nitrogen 4L, Creatinine 0.6, Estimat Glomerular Filtration Rate > 60, Glucose Level 97, Calcium Level 8.8, Total Bilirubin 0.3, Aspartate Amino Transf (AST/SGOT) 14L, Alanine Aminotransferase (ALT/SGPT) 15, Alkaline Phosphatase 97, Total Protein 6.5, Albumin 1.9L, Globulin 4.6, Albumin/Globulin Ratio 0.4L 02/06/21 07:49: Vancomycin Level Trough 19.3H Height (Feet): 5 Height (Inches): 5.00 Weight (Pounds): 223 General Appearance: no apparent distress EENT: other - Patient trached Cardiovascular: tachycardia Respiratory/Chest: decreased breath sounds Abdomen: distended Avi Frye MD Feb 06, 2021 14:03
--- NOTE | 2021-02-06 14:24 | Surgery Progress Note ---
Surgery Progress Note Subjective Procedure Performed tracheostomy Additional Comments looks more comfortable after trach non /v labs noted Objective Last 24 Hour Vital Signs Date Time Temp Pulse Resp B/P (MAP) Pulse Ox O2 Delivery O2 Flow Rate FiO2 02/06/21 14:00 112 22 113/76 (88) 96 02/06/21 13:00 126 26 122/78 (93) 95 02/06/21 12:37 100.1 02/06/21 12:28 126 32 140/88 96 02/06/21 12:00 45 02/06/21 12:00 128 02/06/21 12:00 100.6 127 18 109/60 (76) 96 02/06/21 12:00 45 02/06/21 12:00 Mechanical Ventilator 02/06/21 11:58 126 26 122/80 96 02/06/21 11:45 126 26 122/80 (94) 96 02/06/21 11:30 128 22 131/84 (100) 97 02/06/21 11:15 128 30 127/88 (101) 96 02/06/21 11:10 128 32 45 02/06/21 11:00 126 28 137/82 (100) 95 02/06/21 10:45 125 27 131/85 (100) 95 02/06/21 10:31 113 20 97 02/06/21 10:30 112 36 144/83 (103) 93 02/06/21 10:30 111 20 92 02/06/21 10:22 99.5 115 20 130/85 (100) 91 02/06/21 10:15 119 28 131/86 (101) 90 02/06/21 10:00 114 31 130/83 (99) 98 02/06/21 09:00 119 31 134/86 (102) 98 02/06/21 09:00 22 134/86 Mechanical Ventilator 45 02/06/21 08:00 100.0 112 22 122/84 (97) 99 02/06/21 08:00 22 122/84 Mechanical Ventilator 45 02/06/21 08:00 45 02/06/21 08:00 Mechanical Ventilator 02/06/21 08:00 105 02/06/21 07:41 94 21 94 Mechanical Ventilator 45 115 22 45 02/06/21 07:00 98 23 125/83 (97) 97 02/06/21 07:00 22 133/89 Mechanical Ventilator 50 3/10/21 06:00 102 21 130/87 (101) 100 02/06/21 06:00 22 134/90 Mechanical Ventilator 50 02/06/21 05:55 21 134/90 Mechanical Ventilator 65.0 50 02/06/21 05:00 23 130/88 Mechanical Ventilator 50 02/06/21 05:00 98 25 129/84 (99) 98 02/06/21 04:00 97 02/06/21 04:00 Mechanical Ventilator 02/06/21 04:00 50 02/06/21 04:00 22 118/77 Mechanical Ventilator 50 02/06/21 04:00 99.0 90 22 116/74 (88) 99 02/06/21 03:30 96 24 106/65 (79) 97 02/06/21 03:00 97 22 95/59 (71) 97 02/06/21 03:00 22 93/57 Mechanical Ventilator 40 02/06/21 02:53 94 21 97 Mechanical Ventilator 50 97 22 50 02/06/21 02:30 99 22 99/71 (80) 98 02/06/21 02:00 93 22 91/59 (70) 97 02/06/21 02:00 22 92/56 Mechanical Ventilator 40 02/06/21 01:00 21 90/52 Mechanical Ventilator 50 02/06/21 01:00 101 22 90/52 (65) 96 02/06/21 00:30 104 22 93/51 (65) 95 02/06/21 00:00 98.4 101 22 106/66 (79) 95 02/06/21 00:00 50 02/06/21 00:00 98 02/06/21 00:00 22 98/56 Mechanical Ventilator 50 02/06/21 00:00 Mechanical Ventilator 02/05/21 23:23 96 22 50 02/05/21 23:00 22 100/65 Mechanical Ventilator 50 02/05/21 23:00 96 22 91/62 (72) 96 02/05/21 22:30 114 23 96/78 (84) 99 02/05/21 22:08 103 22 91/58 (69) 95 02/05/21 22:00 22 91/58 Mechanical Ventilator 50 02/05/21 22:00 101 22 90/54 (66) 95 02/05/21 21:00 22 95/66 Mechanical Ventilator 50 02/05/21 21:00 97 22 103/72 (82) 97 02/05/21 20:00 Mechanical Ventilator 02/05/21 20:00 98.6 95 22 93/59 (70) 95 02/05/21 20:00 91 02/05/21 20:00 22 91/59 Mechanical Ventilator 50 02/05/21 20:00 50 02/05/21 19:54 22 102/61 Mechanical Ventilator 65.0 50 02/05/21 19:53 21 102/61 Mechanical Ventilator 50 02/05/21 19:30 99 22 96 Mechanical Ventilator 50 101 22 50 02/05/21 19:00 93 22 103/61 (75) 96 02/05/21 19:00 22 102/61 Mechanical Ventilator 50 02/05/21 18:00 100 22 99/67 (78) 94 02/05/21 18:00 22 98/64 Mechanical Ventilator 50 02/05/21 17:00 97 22 85/70 (75) 92 02/05/21 17:00 22 85/51 Mechanical Ventilator 50 02/05/21 16:05 50 02/05/21 16:01 92 02/05/21 16:00 40 02/05/21 16:00 98.6 93 22 86/56 (66) 94 02/05/21 16:00 Mechanical Ventilator 02/05/21 16:00 22 85/52 Mechanical Ventilator 50 02/05/21 16:00 99 22 98 Mechanical Ventilator 50 97 22 40 02/05/21 15:00 102 22 89/70 (76) 94 02/05/21 15:00 22 89/70 Mechanical Ventilator 40 I&O Intake and Output 02/05/21 02/06/21 19:00 07:00 Intake Total 996.667 ml 1141.333 ml Output Total 960 ml 585 ml Balance 36.667 ml 556.333 ml IV Total 996.667 ml 1141.333 ml Output Urine Total 960 ml 585 ml Dressing: saturated Cardiovascular: RSR Respiratory: decreased breath sounds Abdomen: soft, flat, non-tender, present bowel sounds, non-distended Extremities: no tenderness, no cyanosis Laboratory Tests Test 02/06/21 03:08 02/06/21 07:49 White Blood Count 8.0 K/UL (4.8-10.8) Red Blood Count 3.63 M/UL (4.70-6.10) L Hemoglobin 10.4 G/DL (14.2-18.0) L Hematocrit 33.0 % (42.0-52.0) L Mean Corpuscular Volume 91 FL (80-99) Mean Corpuscular Hemoglobin 28.6 PG (27.0-31.0) Mean Corpuscular Hemoglobin Concent 31.4 G/DL (32.0-36.0) L Red Cell Distribution Width 16.2 % (11.6-14.8) H Platelet Count 390 K/UL (150-450) Mean Platelet Volume 7.3 FL (6.5-10.1) Neutrophils (%) (Auto) 63.9 % (45.0-75.0) Lymphocytes (%) (Auto) 18.7 % (20.0-45.0) L Monocytes (%) (Auto) 10.6 % (1.0-10.0) H Eosinophils (%) (Auto) 2.5 % (0.0-3.0) Basophils (%) (Auto) 4.3 % (0.0-2.0) H Sodium Level 139 MMOL/L (136-145) Potassium Level 3.7 MMOL/L (3.5-5.1) Chloride Level 103 MMOL/L (98-107) Carbon Dioxide Level 26 MMOL/L (21-32) Anion Gap 10 mmol/L (5-15) Blood Urea Nitrogen 4 mg/dL (7-18) L Creatinine 0.6 MG/DL (0.55-1.30) Estimat Glomerular Filtration Rate > 60 mL/min (>60) Glucose Level 97 MG/DL (74-106) Calcium Level 8.8 MG/DL (8.5-10.1) Total Bilirubin 0.3 MG/DL (0.2-1.0) Aspartate Amino Transf (AST/SGOT) 14 U/L (15-37) L Alanine Aminotransferase (ALT/SGPT) 15 U/L (12-78) Alkaline Phosphatase 97 U/L (46-116) Total Protein 6.5 G/DL (6.4-8.2) Albumin 1.9 G/DL (3.4-5.0) L Globulin 4.6 g/dL Albumin/Globulin Ratio 0.4 (1.0-2.7) L Vancomycin Level Trough 19.3 ug/mL (5.0-12.0) H Plan Problems: (1) COPD (chronic obstructive pulmonary disease) (2) Essential hypertension (3) Schizophrenia (4) Obesity (5) Diabetes mellitus type 2 in obese (6) History of hydrocephalus (7) Anticoagulant long-term use (8) Bipolar 1 disorder (9) History of deep venous thrombosis or pulmonary embolus (10) Acute hypercapnic respiratory failure (11) Sepsis Assessment & Plan: 60-year-old male Covid positive respiratory insufficiency and severe decline being prone intubated on vent support labs noted septic ill- appearing has been developing wound around the face from ET tube.Receiv ed report from RT pt is being proned and was observed to have developed a blood blister under vent tape on L cheek and L earlobe. Skin assessed and pt was observed to have a blood blister that is 50% de-capped,50% intact. Intact Blood Blister noted to L earlobe. Skin Barrier applied to affected areas. Optifoam Thin foam placed between vent anchor and pt's skin. Optifoam thin placed to R cheek under Vent tape, on Bridge of nose and both earlobes. Given patient's critical status current care plan and findings nutritional optimization is strongly encouraged Covid nutrition plan initiated. All Covid precautions are being taken. Imaging reviewed. Will follow with care plan. Thank you [facility] participation care Sc.Plan: Maintain Optifoam Thin foam to R and L cheeks,Bridge of Nose and Both Ears . Change every 7 days and prn.( May request Optifoam Thin from [facility] dept). APM/PEPE Mattress overlay DAILY ESTIMATED NEEDS: Needs based on Critical care, pulmonary, obese 73.7kg abw 22-28 kcals/kg 8786-5284 total kcals 1.2-2 g protein/kg 88-147 g total protein 25-30 mL/kg 7054-4076 total fluid mLs NUTRITION DIAGNOSIS: Altered nutrition related lab values r/t steroidal meds, clinical status as evidenced by febrile on adm (102.5), elevated BG (270 287) on solumedrol, elevated lipid panel (Triglycerides 333, Chol 370, LDL 150). CURRENT TF:Vital @30ml/hr, now Nepro @30 ENTERAL NUTRITION RECOMMENDATIONS: NEPRO @30ml/hr while supine to provide x8 hrs feeds: 360ml, 648 kcal, 29g pro, 262ml free H2O - Feed at rate best tolerated, currently not meeting est needs d/t proning and aspiration risk w/ supine feeds limited to 8hrs/day. - W/ reduced aspiration risk rec feedings to total Volume of 900ml/day of Nepro as medically able. - Monitor tolerance, position/HOB >30 degrees, hemodynamic stability and ability to increase to meet est kcal and pro needs. - With increase pressor support, rec trophic feeds of 10ml/hr for gut integrity. - When tolerating TF at goal add Prosource BID to better meet est pro needs. ADDITIONAL RECOMMENDATIONS: 1) Now intubated, TF recs above when off proning (8hrs feeds) 2) Obtain calibrated bedscale wts 3) HgA1C/ elevated BG Need for niss while on D5 4) Lytes daily; replete as needed 5) Monitor triglycerides, TF tolerance, hemodynamic stability. (12) Respiratory failure with hypoxia Assessment & Plan: cont weaning vent wean pressors not ready for trach off pressors improving HD stable plan trach soon as unable to extubate s/p trach 02/05 plan peg (13) Pneumonia due to COVID-19 virus (14) Hyperkalemia (15) DMII (diabetes mellitus, type 2) Ki Strong Feb 06, 2021 14:24
--- NOTE | 2021-02-06 15:47 | Endoscopy Procedure Note ---
Endoscopy Procedure Note General Indication for Procedure: dysphagia Procedures Performed: EGD, PEG Operative Findings/Diagnosis: gastritis Specimen: none Pt Tolerated Procedure Well: Yes Estimated Blood Loss: none Anesthesia Anesthesiologist: whit Anesthesia: MAC Inserted Devices Implant(s) used?: No GI Core Measures 50 yrs or older w/o bx or poly: Not Applicable 10yrs. F/U recommended: Not Applicable Carlos Malhotra MD Feb 06, 2021 15:47
--- NOTE | 2021-02-06 16:44 | Procedure Note ---
DATE OF PROCEDURE: 02/06/2021 PROCEDURE: Upper endoscopy with PEG placement. SURGEON: Carlos Malhotra MD ANESTHESIOLOGIST: Trevor Walker MD INSTRUMENT: Olympus adult flexible upper endoscope. INDICATION: Dysphagia. REASON FOR PROCEDURE: The procedure, risks, benefits, and possible consequences, including hemorrhage, aspiration, perforation and infection, and alternative treatments, were explained to the patient/legal guardian by Dr. Carlos Malhotra and the patient/legal guardian understood and accepted these risks. DESCRIPTION OF PROCEDURE: After informed consent was obtained and patient was adequately sedated, Olympus upper endoscope was advanced from mouth into the second portion of duodenum and retroflexion was performed in the stomach. Then under endoscopic guidance under sterile condition, a 20-Ar[place] pull type of G-tube was successfully placed in epigastric area. The distance from the tip of the tube to skin was about 3 cm in size. Patient tolerated the procedure very well without any complications. SUMMARY OF FINDINGS: Status post successful PEG placement. RECOMMENDATIONS: 1. Abdominal binder. 2. Elevate head of the bed at all times. 3. G-tube flush. 4. G-tube care. 5. Start tube feeding later today. I want to thank Dr. Geovanny Bradley for this kind referral. Carlos Malhotra M.D. DR: ARON JOB#: [id number] CC: Geovanny Bradley M.D.; Fax#: [phone]
[2021-02-06] MEDS ORDERED: fentaNYL 2500mcg/NS 250ml 250 ML IV PRN (18:00)
[2021-02-06] MEDS: Dyna-Hex 2% Top Sol 2oz TOPIC SCH (19:52)
--- NOTE | 2021-02-06 20:17 | Pulmonology Progress Note ---
Subjective ROS Limited/Unobtainable: Yes Allergies: Coded Allergies: No Known Allergies (Unverified , 01/02/21) Objective Last 24 Hour Vital Signs Date Time Temp Pulse Resp B/P (MAP) Pulse Ox O2 Delivery O2 Flow Rate FiO2 02/06/21 19:17 99 24 99 Mechanical Ventilator 45 104 24 45 02/06/21 19:00 93 111/76 (88) 97 02/06/21 18:00 112 22 117/83 (94) 95 02/06/21 17:00 97 24 117/79 (92) 97 02/06/21 16:00 45 02/06/21 16:00 99 02/06/21 16:00 99.5 99 17 124/81 (95) 98 02/06/21 16:00 Mechanical Ventilator 02/06/21 15:05 96 22 45 02/06/21 15:00 88 22 123/77 (92) 98 02/06/21 14:00 112 22 113/76 (88) 96 02/06/21 13:00 126 26 122/78 (93) 95 02/06/21 12:37 100.1 02/06/21 12:28 126 32 140/88 96 02/06/21 12:00 45 02/06/21 12:00 128 02/06/21 12:00 100.6 127 18 109/60 (76) 96 02/06/21 12:00 45 02/06/21 12:00 Mechanical Ventilator 02/06/21 11:58 126 26 122/80 96 02/06/21 11:45 126 26 122/80 (94) 96 02/06/21 11:30 128 22 131/84 (100) 97 02/06/21 11:15 128 30 127/88 (101) 96 02/06/21 11:10 128 32 45 02/06/21 11:00 126 28 137/82 (100) 95 02/06/21 10:45 125 27 131/85 (100) 95 02/06/21 10:31 113 20 97 02/06/21 10:30 112 36 144/83 (103) 93 02/06/21 10:30 111 20 92 02/06/21 10:22 99.5 115 20 130/85 (100) 91 02/06/21 10:15 119 28 131/86 (101) 90 02/06/21 10:00 114 31 130/83 (99) 98 02/06/21 09:00 119 31 134/86 (102) 98 02/06/21 09:00 22 134/86 Mechanical Ventilator 45 02/06/21 08:00 100.0 112 22 122/84 (97) 99 02/06/21 08:00 22 122/84 Mechanical Ventilator 45 02/06/21 08:00 45 02/06/21 08:00 Mechanical Ventilator 02/06/21 08:00 105 02/06/21 07:41 94 21 94 Mechanical Ventilator 45 115 22 45 02/06/21 07:00 98 23 125/83 (97) 97 02/06/21 07:00 22 133/89 Mechanical Ventilator 50 02/06/21 06:00 102 21 130/87 (101) 100 02/06/21 06:00 22 134/90 Mechanical Ventilator 50 02/06/21 05:55 21 134/90 Mechanical Ventilator 65.0 50 02/06/21 05:00 23 130/88 Mechanical Ventilator 50 02/06/21 05:00 98 25 129/84 (99) 98 02/06/21 04:00 97 02/06/21 04:00 Mechanical Ventilator 02/06/21 04:00 50 02/06/21 04:00 22 118/77 Mechanical Ventilator 50 02/06/21 04:00 99.0 90 22 116/74 (88) 99 02/06/21 03:30 96 24 106/65 (79) 97 02/06/21 03:00 97 22 95/59 (71) 97 02/06/21 03:00 22 93/57 Mechanical Ventilator 40 02/06/21 02:53 94 21 97 Mechanical Ventilator 50 97 22 50 02/06/21 02:30 99 22 99/71 (80) 98 02/06/21 02:00 93 22 91/59 (70) 97 02/06/21 02:00 22 92/56 Mechanical Ventilator 40 02/06/21 01:00 21 90/52 Mechanical Ventilator 50 02/06/21 01:00 101 22 90/52 (65) 96 02/06/21 00:30 104 22 93/51 (65) 95 02/06/21 00:00 98.4 101 22 106/66 (79) 95 02/06/21 00:00 50 02/06/21 00:00 98 02/06/21 00:00 22 98/56 Mechanical Ventilator 50 02/06/21 00:00 Mechanical Ventilator 02/05/21 23:23 96 22 50 02/05/21 23:00 22 100/65 Mechanical Ventilator 50 02/05/21 23:00 96 22 91/62 (72) 96 02/05/21 22:30 114 23 96/78 (84) 99 02/05/21 22:08 103 22 91/58 (69) 95 02/05/21 22:00 22 91/58 Mechanical Ventilator 50 02/05/21 22:00 101 22 90/54 (66) 95 02/05/21 21:00 22 95/66 Mechanical Ventilator 50 02/05/21 21:00 97 22 103/72 (82) 97 Intake and Output 02/05/21 02/06/21 19:00 07:00 Intake Total 996.667 ml 1141.333 ml Output Total 960 ml 585 ml Balance 36.667 ml 556.333 ml IV Total 996.667 ml 1141.333 ml Output Urine Total 960 ml 585 ml Microbiology Date/Time Source Procedure Growth Status 02/04/21 12:00 Blood Blood Culture - Preliminary NO GROWTH AFTER 48 HOURS Resulted 02/04/21 12:00 Blood Blood Culture - Preliminary NO GROWTH AFTER 48 HOURS Resulted Laboratory Tests 02/06/21 03:08: White Blood Count 8.0, Red Blood Count 3.63L, Hemoglobin 10.4L, Hematocrit 33.0L , Mean Corpuscular Volume 91, Mean Corpuscular Hemoglobin 28.6, Mean Corpuscular Hemoglobin Concent 31.4L, Red Cell Distribution Width 16.2H, Platelet Count 390, Mean Platelet Volume 7.3, Neutrophils (%) (Auto) 63.9, Lymphocytes (%) (Auto) 18.7L, Monocytes (%) (Auto) 10.6H, Eosinophils (%) (Auto) 2.5, Basophils (%) (Auto) 4.3H, Sodium Level 139, Potassium Level 3.7, Chloride Level 103, Carbon Dioxide Level 26, Anion Gap 10, Blood Urea Nitrogen 4L, Creatinine 0.6, Estimat Glomerular Filtration Rate > 60, Glucose Level 97, Calcium Level 8.8, Total Bilirubin 0.3, Aspartate Amino Transf (AST/SGOT) 14L, Alanine Aminotransferase (ALT/SGPT) 15, Alkaline Phosphatase 97, Total Protein 6.5, Albumin 1.9L, Globulin 4.6, Albumin/Globulin Ratio 0.4L 02/06/21 07:49: Vancomycin Level Trough 19.3H Current Medications Medications (Trade) Dose Ordered Sig/Johnny Route PRN Reason Start Time Stop Time Status Last Admin Dose Admin Acetaminophen (Tylenol) 650 mg Q6H PRN NG Temp >100.5 01/09/21 09:15 02/08/21 09:14 02/06/21 12:07 Acetaminophen (Tylenol) 650 mg Q6H PRN NG Mild Pain (Pain Scale 1-3) 01/09/21 09:15 02/08/21 09:14 02/03/21 04:10 Acetylcysteine (Mucomyst) 200 mg Q6HRT [facility] 02/03/21 13:00 05/04/21 12:59 02/06/21 07:37 Albuterol/ Ipratropium (Albuterol/ Ipratropium) 3 ml Q6HRT N 02/03/21 13:00 02/08/21 12:59 02/06/21 07:37 Chlorhexidine Gluconate (Myranda-Hex 2%) 1 applic DAILY@2000 TOPIC 01/29/21 20:00 04/29/21 19:59 02/06/21 19:52 Dextrose (Dextrose 50%) 25 ml Q30M PRN IV Hypoglycemia 01/06/21 23:45 04/06/21 23:44 Dextrose (Dextrose 50%) 50 ml Q30M PRN IV Hypoglycemia 01/06/21 23:45 04/06/21 23:44 Hydromorphone HCl (Dilaudid) 0.5 mg Q2H PRN IVP Severe Pain (Pain Scale 7-10) 02/06/21 13:42 02/13/21 13:41 02/06/21 13:55 Insulin Aspart (NovoLOG) EVERY 6 HOURS SUBQ 01/09/21 12:00 04/04/21 16:29 02/06/21 18:26 Lansoprazole (Prevacid) 30 mg DAILY GT 01/24/21 09:00 02/15/21 08:59 02/06/21 09:14 Lorazepam (Ativan 2mg/ml 1ml) 0.5 mg Q6H PRN IV For Seizures 02/05/21 03:15 02/12/21 03:14 02/05/21 03:55 Lorazepam (Ativan 2mg/ml 1ml) 1 mg Q2H PRN IV For Anxiety 02/06/21 08:15 02/13/21 08:14 02/06/21 11:58 Metoclopramide HCl (Reglan) 5 mg Q6H PRN IVP Nausea & Vomiting 02/06/21 00:15 03/08/21 00:14 Midodrine (Pro-Amatine) 10 mg Q8HR ORAL 01/20/21 14:00 04/20/21 13:59 02/06/21 19:54 Ondansetron HCl (Zofran) 4 mg Q6H PRN IVP Nausea & Vomiting 02/06/21 00:15 03/08/21 00:14 Potassium Chloride (K-Dur) 20 meq TWICE A DAY NG 01/20/21 13:00 04/20/21 12:59 02/06/21 18:02 Quetiapine Fumarate (SEROqueL) 100 mg Q12HR ORAL 01/20/21 15:00 03/06/21 14:59 02/06/21 19:54 Valproic Acid (Depakene) 500 mg Q12HR GT 01/22/21 21:00 02/21/21 20:59 02/06/21 19:53 Vancomycin HCl 250 ml @ 166.667 mls/hr Q8H IVPB 02/01/21 09:00 02/11/21 08:59 02/06/21 18:00 Vancomycin HCl ([facility] pharmacy to dose) 1 ea DAILY PRN MISC Per rx protocol 01/25/21 08:15 02/24/21 08:14 Warfarin Sodium (Coumadin per pharmacy) 1 ea DAILY PRN MISC . 02/07/21 17:00 03/09/21 16:59 Assessment/Plan Assessment/Plan Pulmonary CCM Progress Note Seen on 02/05/2021 HPI Patient is a 60 man with prior h/o COPD, CPS/bipolar DO, 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 ID following, on AB, s/p REM + SM, CXR with bilateral infiltrates Fevers settling - AB/ID,cultures pending,CT sinuses pending,CXR improving right basilar atelectasis Sedated in ICU on Ventilator, has OGT/central line PEEP at 5,maintaining O2 sats, FIO2 - 40%, s/p Tracheostomy, has PICC line Pressure areas around ETT site - surgery/wound nurse following Allergies: Coded Allergies: No Known Allergies (Unverified , 01/02/21) PMH: COPD, CPS/bipolar DO, prior DVT/PE on AC, DM2, HTN and hydrocephalus Physical Exam Deferred Covid19 Vital Signs noted Laboratory Tests noted Imaging noted Height (Feet): 5 Height (Inches): 5.00 Weight (Pounds): 233 Medications Medications noted Assessment/Plan Problem List: (1) Pneumonia due to COVID-19 virus ICD Codes: U07.1 - COVID-19; J12.82 - Pneumonia due to coronavirus disease 2018 SNOMED: 584832638494602393 (2) Acute hypercapnic respiratory failure ICD Codes: J96.02 - Acute respiratory failure with hypercapnia SNOMED: 693885123 (3) Respiratory failure with hypoxia ICD Codes: J96.91 - Respiratory failure, unspecified with hypoxia SNOMED: 59233016033048677 Qualifiers: Qualified Codes: J96.01 - Acute respiratory failure with hypoxia (4) COPD (chronic obstructive pulmonary disease) ICD Codes: J44.9 - Chronic obstructive pulmonary disease, unspecified SNOMED: 77445759 (5) History of deep venous thrombosis or pulmonary embolus SNOMED: 482328750 (6) Obesity ICD Codes: E66.9 - Obesity, unspecified SNOMED: 311129311, 599664774 (7) Essential hypertension ICD Codes: I10 - Essential (primary) hypertension SNOMED: 62188733 (8) Diabetes mellitus type 2 in obese ICD Codes: E11.69 - Type 2 diabetes mellitus with other specified complication; E66.9 - Obesity, unspecified SNOMED: 44171911 (9) History of hydrocephalus ICD Codes: Z86.69 - Personal history of other diseases of the nervous system and sense organs SNOMED: 132322892 (10) Schizophrenia ICD Codes: F20.9 - Schizophrenia, unspecified SNOMED: 92156734 (11) Bipolar 1 disorder ICD Codes: F31.9 - Bipolar disorder, unspecified SNOMED: 578937347 (12) Anticoagulant long-term use ICD Codes: Z79.01 - halfway (current) use of anticoagulants SNOMED: 751657173 Assessment/Plan: ACVC - adjust PRN Adjust FiO2 to keep SaO2 > 92% Wean as tolerated Pressors PRN Sedation PRN HFA's ID recs REM completed per ID AB perID Weaned off SM Abx per ID F/U Cx's Monitor volumes and renal function,diuresis per Renal DVT Px: Coumadin TF when not proned FC Seen on 02/05/2021 Anuel Luis MD Feb 06, 2021 20:17
[2021-02-07] VITALS (32 sets, daily range): BP systolic 92–128; BP diastolic 45–82
[2021-02-07] MEDS: Acetylcysteine 20% Soln 4ml HHN SCH ×5 (01:00→19:00)
[2021-02-07] MEDS: Vancomycin 1.25gm/250ml Premix IVPB SCH ×2 (02:10→09:18)
[2021-02-07 05:30] LABS: BASOPHILS % (AUTO) 0.7 % (0.0-2.0); EOSINOPHILS % (AUTO) 0.5 % (0.0-3.0); HEMATOCRIT 36.1 % (42.0-52.0); HEMOGLOBIN 11.3 G/DL (14.2-18.0); LYMPHOCYTES % (AUTO) 15.9 % (20.0-45.0); MEAN CORPUSCULAR VOLUME 90 FL (80-99); MONOCYTES % (AUTO) 5.8 % (1.0-10.0); NEUTROPHILS % (AUTO) 77.1 % (45.0-75.0); PLATELET COUNT 467 K/UL (150-450); RED BLOOD COUNT 4.01 M/UL (4.70-6.10); RED CELL DISTRIBUTION WIDTH 15.9 % (11.6-14.8); WHITE BLOOD COUNT 13.2 K/UL (4.8-10.8)
[2021-02-07 05:31] LABS: ANION GAP 10 mmol/L (5-15); BLOOD UREA NITROGEN 6 mg/dL (7-18); CALCIUM 9.7 MG/DL (8.5-10.1); CARBON DIOXIDE 26 MMOL/L (21-32); CHLORIDE 101 MMOL/L (98-107); CREATININE 0.6 MG/DL (0.55-1.30); POTASSIUM 3.9 MMOL/L (3.5-5.1); SODIUM 137 MMOL/L (136-145)
[2021-02-07 05:32] LABS: INR 1.2 (0.9-1.1)
[2021-02-07] MEDS: NovoLOG Insulin Flexpen SUBQ SCH ×4 (06:00→17:40)
[2021-02-07] MEDS: Albuterol/Ipratropium 3ml neb HHN SCH ×4 (06:00→19:00)
[2021-02-07] MEDS: Midodrine 10mg tab ORAL SCH ×3 (06:05→20:34)
--- NOTE | 2021-02-07 06:32 | Pulmonology Progress Note ---
Subjective ROS Limited/Unobtainable: Yes Allergies: Coded Allergies: No Known Allergies (Unverified , 01/02/21) Objective Last 24 Hour Vital Signs Date Time Temp Pulse Resp B/P (MAP) Pulse Ox O2 Delivery O2 Flow Rate FiO2 02/07/21 04:30 105 123/73 (90) 98 02/07/21 04:00 45 02/07/21 04:00 Mechanical Ventilator 02/07/21 04:00 103 117/78 (91) 97 02/07/21 03:24 96 24 45 02/07/21 03:00 118/81 (93) 97 02/07/21 02:00 96 118/77 (91) 96 02/07/21 01:30 105 108/71 (83) 96 02/07/21 01:00 103 115/72 (86) 97 02/07/21 00:30 92 116/76 (89) 98 02/07/21 00:00 89 116/77 (90) 98 02/07/21 00:00 Mechanical Ventilator 02/06/21 23:30 97 26 109/71 (84) 97 02/06/21 23:16 94 22 45 02/06/21 23:00 99.7 02/06/21 23:00 99.5 02/06/21 23:00 98 21 105/68 (80) 97 02/06/21 22:30 110 19 122/77 (92) 99 02/06/21 22:00 117 30 116/72 (87) 97 02/06/21 21:30 107 119/83 (95) 96 02/06/21 21:00 106 111/72 (85) 98 02/06/21 20:30 113 19 116/79 (91) 96 02/06/21 20:00 45 02/06/21 20:00 96 119/81 (94) 97 02/06/21 20:00 Mechanical Ventilator 02/06/21 19:30 97 114/85 (95) 97 02/06/21 19:17 99 24 99 Mechanical Ventilator 45 104 24 45 02/06/21 19:00 93 111/76 (88) 97 02/06/21 19:00 93 111/76 (88) 97 02/06/21 18:00 112 22 117/83 (94) 95 02/06/21 17:00 97 24 117/79 (92) 97 02/06/21 16:00 45 02/06/21 16:00 99 02/06/21 16:00 99.5 99 17 124/81 (95) 98 02/06/21 16:00 Mechanical Ventilator 02/06/21 15:05 96 22 45 02/06/21 15:00 88 22 123/77 (92) 98 02/06/21 14:00 112 22 113/76 (88) 96 02/06/21 13:00 126 26 122/78 (93) 95 02/06/21 12:37 100.1 02/06/21 12:28 126 32 140/88 96 02/06/21 12:00 45 02/06/21 12:00 128 02/06/21 12:00 100.6 127 18 109/60 (76) 96 02/06/21 12:00 45 02/06/21 12:00 Mechanical Ventilator 02/06/21 11:58 126 26 122/80 96 02/06/21 11:45 126 26 122/80 (94) 96 02/06/21 11:30 128 22 131/84 (100) 97 02/06/21 11:15 128 30 127/88 (101) 96 02/06/21 11:10 128 32 45 02/06/21 11:00 126 28 137/82 (100) 95 02/06/21 10:45 125 27 131/85 (100) 95 02/06/21 10:31 113 20 97 02/06/21 10:30 112 36 144/83 (103) 93 02/06/21 10:30 111 20 92 02/06/21 10:22 99.5 115 20 130/85 (100) 91 02/06/21 10:15 119 28 131/86 (101) 90 02/06/21 10:00 114 31 130/83 (99) 98 02/06/21 09:00 119 31 134/86 (102) 98 02/06/21 09:00 22 134/86 Mechanical Ventilator 45 02/06/21 08:00 100.0 112 22 122/84 (97) 99 02/06/21 08:00 22 122/84 Mechanical Ventilator 45 02/06/21 08:00 45 02/06/21 08:00 Mechanical Ventilator 02/06/21 08:00 105 3/10/21 07:41 94 21 94 Mechanical Ventilator 45 115 22 45 02/06/21 07:00 98 23 125/83 (97) 97 02/06/21 07:00 22 133/89 Mechanical Ventilator 50 Intake and Output 02/06/21 02/07/21 19:00 07:00 Intake Total 1224.170 ml 270 ml Output Total 2510 ml Balance -1285.830 ml 270 ml Free Water 50 ml IV Total 944.170 ml Tube Feeding 230 ml 270 ml Output Urine Total 2510 ml Microbiology Date/Time Source Procedure Growth Status 02/04/21 12:00 Blood Blood Culture - Preliminary NO GROWTH AFTER 48 HOURS Resulted 02/04/21 12:00 Blood Blood Culture - Preliminary NO GROWTH AFTER 48 HOURS Resulted Laboratory Tests 02/06/21 07:49: Vancomycin Level Trough 19.3H 02/07/21 04:10: White Blood Count 13.2#H, Red Blood Count 4.01L, Hemoglobin 11.3L, Hematocrit 36.1L, Mean Corpuscular Volume 90, Mean Corpuscular Hemoglobin 28.3, Mean Corpuscular Hemoglobin Concent 31.4L, Red Cell Distribution Width 15.9H, Platelet Count 467H, Mean Platelet Volume 7.3, Neutrophils (%) (Auto) 77.1H, Lymphocytes (%) (Auto) 15.9L, Monocytes (%) (Auto) 5.8, Eosinophils (%) (Auto) 0.5, Basophils (%) (Auto) 0.7, Prothrombin Time 13.5H, Prothromb Time Inter national Ratio 1.2H, Sodium Level 137, Potassium Level 3.9, Chloride Level 101, Carbon Dioxide Level 26, Anion Gap 10, Blood Urea Nitrogen 6L, Creatinine 0.6, Estimat Glomerular Filtration Rate > 60, Glucose Level 135H, Calcium Level 9.7 Current Medications Medications (Trade) Dose Ordered Sig/Johnny Route PRN Reason Start Time Stop Time Status Last Admin Dose Admin Acetaminophen (Tylenol) 650 mg Q6H PRN NG Temp >100.5 01/09/21 09:15 02/08/21 09:14 02/06/21 22:30 Acetaminophen (Tylenol) 650 mg Q6H PRN NG Mild Pain (Pain Scale 1-3) 01/09/21 09:15 02/08/21 09:14 02/03/21 04:10 Acetylcysteine (Mucomyst) 200 mg Q6HRT N 02/03/21 13:00 05/04/21 12:59 02/06/21 19:00 Albuterol/ Ipratropium (Albuterol/ Ipratropium) 3 ml Q6HRT N 02/03/21 13:00 02/08/21 12:59 02/06/21 19:00 Chlorhexidine Gluconate (Myranda-Hex 2%) 1 applic DAILY@1999 TOPIC 01/29/21 20:00 04/29/21 19:59 02/06/21 19:52 Dextrose (Dextrose 50%) 25 ml Q30M PRN IV Hypoglycemia 01/06/21 23:45 04/06/21 23:44 Dextrose (Dextrose 50%) 50 ml Q30M PRN IV Hypoglycemia 01/06/21 23:45 04/06/21 23:44 Hydromorphone HCl (Dilaudid) 0.5 mg Q2H PRN IVP Severe Pain (Pain Scale 7-10) 02/06/21 13:42 02/13/21 13:41 02/06/21 22:30 Insulin Aspart (NovoLOG) EVERY 6 HOURS SUBQ 01/09/21 12:00 04/04/21 16:29 02/06/21 18:26 Lansoprazole (Prevacid) 30 mg DAILY GT 01/24/21 09:00 02/15/21 08:59 02/06/21 09:14 Lorazepam (Ativan 2mg/ml 1ml) 0.5 mg Q6H PRN IV For Seizures 02/05/21 03:15 02/12/21 03:14 02/05/21 03:55 Lorazepam (Ativan 2mg/ml 1ml) 1 mg Q2H PRN IV For Anxiety 02/06/21 08:15 02/13/21 08:14 02/06/21 11:58 Metoclopramide HCl (Reglan) 5 mg Q6H PRN IVP Nausea & Vomiting 02/06/21 00:15 03/08/21 00:14 Midodrine (Pro-Amatine) 10 mg Q8HR ORAL 01/20/21 14:00 04/20/21 13:59 02/07/21 06:05 Ondansetron HCl (Zofran) 4 mg Q6H PRN IVP Nausea & Vomiting 02/06/21 00:15 03/08/21 00:14 Potassium Chloride (K-Dur) 20 meq TWICE A DAY NG 01/20/21 13:00 04/20/21 12:59 02/06/21 18:02 Quetiapine Fumarate (SEROqueL) 100 mg Q12HR ORAL 01/20/21 15:00 03/06/21 14:59 02/06/21 19:54 Valproic Acid (Depakene) 500 mg Q12HR GT 01/22/21 21:00 02/21/21 20:59 02/06/21 19:53 Vancomycin HCl 250 ml @ 166.667 mls/hr Q8H IVPB 02/01/21 09:00 02/11/21 08:59 02/07/21 02:10 Vancomycin HCl ([facility] pharmacy to dose) 1 ea DAILY PRN MISC Per rx protocol 01/25/21 08:15 02/24/21 08:14 Warfarin Sodium (Coumadin per pharmacy) 1 ea DAILY PRN MISC . 02/07/21 17:00 03/09/21 16:59 Assessment/Plan Assessment/Plan Pulmonary CCM Progress Note Seen on 02/06/2021 HPI Patient is a 60 man with prior h/o COPD, CPS/bipolar DO, prior DVT/PE on AC, NHR, DM2, HTN and hydrocephalus,admitted with severe Covid19 Pneumonia. ID following, on AB, s/p REM + SM, CXR with bilateral infiltrates/trach, stable Fevers settled,has incr WCC - AB/ID Srable in ICU on Ventilator PEEP at 5,maintaining O2 sats, FIO2 - 40%, s/p Tracheostomy, sp G tube, has PICC line, fentanyl gtt dc Allergies: Coded Allergies: No Known Allergies (Unverified , 01/02/21) PMH: COPD, CPS/bipolar DO, prior DVT/PE on AC, DM2, HTN and hydrocephalus Physical Exam Deferred Covid19 Vital Signs noted Laboratory Tests noted Imaging noted Height (Feet): 5 Height (Inches): 5.00 Weight (Pounds): 233 Medications Medications noted Assessment/Plan Problem List: (1) Pneumonia due to COVID-19 virus ICD Codes: U07.1 - COVID-19; J12.82 - Pneumonia due to coronavirus disease 2018 SNOMED: 034762678769339006 (2) Acute hypercapnic respiratory failure ICD Codes: J96.02 - Acute respiratory failure with hypercapnia SNOMED: 969803174 (3) Respiratory failure with hypoxia ICD Codes: J96.91 - Respiratory failure, unspecified with hypoxia SNOMED: 07205811213827483 Qualifiers: Qualified Codes: J96.01 - Acute respiratory failure with hypoxia (4) COPD (chronic obstructive pulmonary disease) ICD Codes: J44.9 - Chronic obstructive pulmonary disease, unspecified SNOMED: 46399167 (5) History of deep venous thrombosis or pulmonary embolus SNOMED: 298750975 (6) Obesity ICD Codes: E66.9 - Obesity, unspecified SNOMED: 382849315, 012140099 (7) Essential hypertension ICD Codes: I10 - Essential (primary) hypertension SNOMED: 04144136 (8) Diabetes mellitus type 2 in obese ICD Codes: E11.69 - Type 2 diabetes mellitus with other specified complication; E66.9 - Obesity, unspecified SNOMED: 88585967 (9) History of hydrocephalus ICD Codes: Z86.69 - Personal history of other diseases of the nervous system and sense organs SNOMED: 072759194 (10) Schizophrenia ICD Codes: F20.9 - Schizophrenia, unspecified SNOMED: 83355157 (11) Bipolar 1 disorder ICD Codes: F31.9 - Bipolar disorder, unspecified SNOMED: 727925881 (12) Anticoagulant long-term use ICD Codes: Z79.01 - USP (current) use of anticoagulants SNOMED: 313715863 Assessment/Plan: ACVC - adjust PRN Adjust FiO2 to keep SaO2 > 92% Wean as tolerated Pressors PRN Sedation PRN HFA's ID recs REM completed per ID AB perID Weaned off SM Abx per ID F/U Cx's Monitor volumes and renal function,diuresis per Renal DVT Px: Coumadin TF when not proned FC GT Trach SDU Seen on 02/06/2021 Anuel Luis MD Feb 07, 2021 06:31
--- NOTE | 2021-02-07 08:05 | Infectious Diseases Prog Note ---
Assessment/Plan 60yo M with: Septic SHock Receurrent Gram postiive bacteremia r/o gentry infection -01/25 Bcx 2/ sets GPC clustesr Staph epi bacteremia ? infected fem line , Sp removal 02/01 01/10 BCx / +Staph epi 01/13 BCx Neg 01/25 BCx CoNS 2/2 01/28 BCx - CoNS /2 01/31/21 BCx - NGTD 02/02/21 BCx - 12/01 GPC 02/04/21 BCx - NGTD COVID pna, severe Acute hypoxia 01/01 COVID pna >> intubated 01/06- 50% FIo2 Febrile to 103; imporving Normal WBC Elevated AST 51 01/01 Tested positive for COVID at [facility] 01/02 COVID PCR positive 01/02 BCx NTD CXR: Multifocal pna MRSA nares neg 01/06 Intubated in ICU CXR: 1. Appropriately positioned endotracheal and enteric tubes. 2. Stable bilateral airspace disease. 01/07 Resp cx +Yasmine albicans (colonizer) 01/11 CXR: Interval improved bilateral lung aeration. Bibasilar infiltrates/atelectasis. Cr 1.1 PICC placement HIV screen neg PMH: DM2 COPD HTN SNF resident PICC placed 01/30/21 Plan: Cont Vancomycin # 16 Will be following the WBCs Repeat Blood Cx Monitor temps 02/01/21 SP Zosyn #7 01/22/21 steroids #19, on methylpred 20 IV q12 - defer course to Pulm/Primary, now tapering 01/19/21 SP Zosyn #10 01/14 SP vanco IV #1 01/09 SP CTX #7 01/07 SP azithro #5, RDV #5 This institution does not have access to convalescent plasma and only recommended to give in setting of clinical trial Monitor temp curve, hemodynamics Monitor resp status Rpt Blood Cx 2D echo D/w RN Thank you for this consult. [facility] will continue to follow. Subjective Allergies: Coded Allergies: No Known Allergies (Unverified , 01/02/21) Afebrile Remains on Vent 45% O2 Mild Leukocytosis Objective Last 24 Hour Vital Signs Date Time Temp Pulse Resp B/P (MAP) Pulse Ox O2 Delivery O2 Flow Rate FiO2 02/07/21 08:00 98.1 91 16 111/75 (87) 97 02/07/21 08:00 45 02/07/21 07:00 86 22 123/80 (94) 95 02/07/21 06:30 110 30 128/82 (97) 96 02/07/21 06:00 103 31 122/77 (92) 98 02/07/21 05:30 98 14 117/75 (89) 100 02/07/21 05:00 106 121/78 (92) 99 02/07/21 04:30 105 123/73 (90) 98 02/07/21 04:00 45 02/07/21 04:00 103 02/07/21 04:00 Mechanical Ventilator 02/07/21 04:00 103 117/78 (91) 97 02/07/21 03:24 96 24 45 02/07/21 03:00 118/81 (93) 97 02/07/21 02:00 96 118/77 (91) 96 02/07/21 01:30 105 108/71 (83) 96 02/07/21 01:00 103 115/72 (86) 97 02/07/21 00:30 92 116/76 (89) 98 02/07/21 00:00 89 116/77 (90) 98 02/07/21 00:00 Mechanical Ventilator 02/07/21 00:00 93 02/06/21 23:30 97 26 109/71 (84) 97 02/06/21 23:16 94 22 45 02/06/21 23:00 99.7 02/06/21 23:00 99.5 02/06/21 23:00 98 21 105/68 (80) 97 02/06/21 22:30 110 19 122/77 (92) 99 02/06/21 22:00 117 30 116/72 (87) 97 02/06/21 21:30 107 119/83 (95) 96 02/06/21 21:00 106 111/72 (85) 98 02/06/21 20:30 113 19 116/79 (91) 96 02/06/21 20:00 45 02/06/21 20:00 96 119/81 (94) 97 02/06/21 20:00 Mechanical Ventilator 02/06/21 19:30 97 114/85 (95) 97 02/06/21 19:17 99 24 99 Mechanical Ventilator 45 104 24 45 02/06/21 19:00 93 111/76 (88) 97 02/06/21 19:00 93 111/76 (88) 97 02/06/21 18:00 112 22 117/83 (94) 95 02/06/21 17:00 97 24 117/79 (92) 97 02/06/21 16:00 45 02/06/21 16:00 99 02/06/21 16:00 99.5 99 17 124/81 (95) 98 02/06/21 16:00 Mechanical Ventilator 02/06/21 15:05 96 22 45 02/06/21 15:00 88 22 123/77 (92) 98 02/06/21 14:00 112 22 113/76 (88) 96 02/06/21 13:00 126 26 122/78 (93) 95 02/06/21 12:37 100.1 02/06/21 12:28 126 32 140/88 96 02/06/21 12:00 45 02/06/21 12:00 128 02/06/21 12:00 100.6 127 18 109/60 (76) 96 02/06/21 12:00 45 02/06/21 12:00 Mechanical Ventilator 02/06/21 11:58 126 26 122/80 96 02/06/21 11:45 126 26 122/80 (94) 96 02/06/21 11:30 128 22 131/84 (100) 97 02/06/21 11:15 128 30 127/88 (101) 96 02/06/21 11:10 128 32 45 02/06/21 11:00 126 28 137/82 (100) 95 02/06/21 10:45 125 27 131/85 (100) 95 02/06/21 10:31 113 20 97 02/06/21 10:30 112 36 144/83 (103) 93 02/06/21 10:30 111 20 92 02/06/21 10:22 99.5 115 20 130/85 (100) 91 02/06/21 10:15 119 28 131/86 (101) 90 02/06/21 10:00 114 31 130/83 (99) 98 02/06/21 09:00 119 31 134/86 (102) 98 02/06/21 09:00 22 134/86 Mechanical Ventilator 45 Height (Feet): 5 Height (Inches): 5.00 Weight (Pounds): 223 Gen: NAD on Vent HEENT: NCAT, ETT, OGT Pulm: BL chest rise, RRR Skin: No visible rashes Neuro: Not following Lines STEPHANIE PICC lines in place Microbiology Date/Time Source Procedure Growth Status 02/04/21 12:00 Blood Blood Culture - Preliminary NO GROWTH AFTER 48 HOURS Resulted 02/04/21 12:00 Blood Blood Culture - Preliminary NO GROWTH AFTER 48 HOURS Resulted Laboratory Tests Test 02/07/21 04:10 White Blood Count 13.2 K/UL (4.8-10.8) #H Red Blood Count 4.01 M/UL (4.70-6.10) L Hemoglobin 11.3 G/DL (14.2-18.0) L Hematocrit 36.1 % (42.0-52.0) L Mean Corpuscular Volume 90 FL (80-99) Mean Corpuscular Hemoglobin 28.3 PG (27.0-31.0) Mean Corpuscular Hemoglobin Concent 31.4 G/DL (32.0-36.0) L Red Cell Distribution Width 15.9 % (11.6-14.8) H Platelet Count 467 K/UL (150-450) H Mean Platelet Volume 7.3 FL (6.5-10.1) Neutrophils (%) (Auto) 77.1 % (45.0-75.0) H Lymphocytes (%) (Auto) 15.9 % (20.0-45.0) L Monocytes (%) (Auto) 5.8 % (1.0-10.0) Eosinophils (%) (Auto) 0.5 % (0.0-3.0) Basophils (%) (Auto) 0.7 % (0.0-2.0) Prothrombin Time 13.5 SEC (9.30-11.50) H Prothromb Time International Ratio 1.2 (0.9-1.1) H Sodium Level 137 MMOL/L (136-145) Potassium Level 3.9 MMOL/L (3.5-5.1) Chloride Level 101 MMOL/L (98-107) Carbon Dioxide Level 26 MMOL/L (21-32) Anion Gap 10 mmol/L (5-15) Blood Urea Nitrogen 6 mg/dL (7-18) L Creatinine 0.6 MG/DL (0.55-1.30) Estimat Glomerular Filtration Rate > 60 mL/min (>60) Glucose Level 135 MG/DL (74-106) H Calcium Level 9.7 MG/DL (8.5-10.1) Current Medications Medications (Trade) Dose Ordered Sig/Johnny Route PRN Reason Start Time Stop Time Status Last Admin Dose Admin Acetaminophen (Tylenol) 650 mg Q6H PRN NG Temp >100.5 01/09/21 09:15 02/08/21 09:14 02/06/21 22:30 Acetaminophen (Tylenol) 650 mg Q6H PRN NG Mild Pain (Pain Scale 1-3) 01/09/21 09:15 02/08/21 09:14 02/03/21 04:10 Acetylcysteine (Mucomyst) 200 mg Q6HRT [facility] 02/03/21 13:00 05/04/21 12:59 02/06/21 19:00 Albuterol/ Ipratropium (Albuterol/ Ipratropium) 3 ml Q6HRT [facility] 02/03/21 13:00 02/08/21 12:59 02/06/21 19:00 Chlorhexidine Gluconate (Myranda-Hex 2%) 1 applic DAILY@2000 TOPIC 01/29/21 20:00 04/29/21 19:59 02/06/21 19:52 Dextrose (Dextrose 50%) 25 ml Q30M PRN IV Hypoglycemia 01/06/21 23:45 04/06/21 23:44 Dextrose (Dextrose 50%) 50 ml Q30M PRN IV Hypoglycemia 01/06/21 23:45 04/06/21 23:44 Hydromorphone HCl (Dilaudid) 0.5 mg Q2H PRN IVP Severe Pain (Pain Scale 7-10) 02/06/21 13:42 02/13/21 13:41 02/06/21 22:30 Insulin Aspart (NovoLOG) EVERY 6 HOURS SUBQ 01/09/21 12:00 04/04/21 16:29 02/06/21 18:26 Lansoprazole (Prevacid) 30 mg DAILY GT 01/24/21 09:00 02/15/21 08:59 02/06/21 09:14 Lorazepam (Ativan 2mg/ml 1ml) 0.5 mg Q6H PRN IV For Seizures 02/05/21 03:15 02/12/21 03:14 02/05/21 03:55 Lorazepam (Ativan 2mg/ml 1ml) 1 mg Q2H PRN IV For Anxiety 02/06/21 08:15 02/13/21 08:14 02/06/21 11:58 Metoclopramide HCl (Reglan) 5 mg Q6H PRN IVP Nausea & Vomiting 02/06/21 00:15 03/08/21 00:14 Midodrine (Pro-Amatine) 10 mg Q8HR ORAL 01/20/21 14:00 04/20/21 13:59 02/07/21 06:05 Ondansetron HCl (Zofran) 4 mg Q6H PRN IVP Nausea & Vomiting 02/06/21 00:15 03/08/21 00:14 Potassium Chloride (K-Dur) 20 meq TWICE A DAY NG 01/20/21 13:00 04/20/21 12:59 02/06/21 18:02 Quetiapine Fumarate (SEROqueL) 100 mg Q12HR ORAL 01/20/21 15:00 03/06/21 14:59 02/06/21 19:54 Valproic Acid (Depakene) 500 mg Q12HR GT 01/22/21 21:00 02/21/21 20:59 02/06/21 19:53 Vancomycin HCl 250 ml @ 166.667 mls/hr Q8H IVPB 02/01/21 09:00 02/11/21 08:59 02/07/21 02:10 Vancomycin HCl ([facility] pharmacy to dose) 1 ea DAILY PRN MISC Per rx protocol 01/25/21 08:15 02/24/21 08:14 Warfarin Sodium (Coumadin per pharmacy) 1 ea DAILY PRN MISC . 02/07/21 17:00 03/09/21 16:59 Warfarin Sodium (Coumadin) 5 mg COUMADIN ORAL 02/07/21 17:00 02/07/21 18:00 Anuel Crespo MD Feb 07, 2021 08:05
[2021-02-07] MEDS: Valproic Acid 250mg/5ml Liquid GT SCH ×2 (09:18→20:30)
--- NOTE | 2021-02-07 12:28 | Surgery Progress Note ---
Surgery Progress Note Subjective Procedure Performed tracheostomy Additional Comments eyes open no n/v looks much more comfortable trach okay weaning vent Objective Last 24 Hour Vital Signs Date Time Temp Pulse Resp B/P (MAP) Pulse Ox O2 Delivery O2 Flow Rate FiO2 02/07/21 12:00 45 02/07/21 12:00 98.4 96 22 107/72 (84) 97 02/07/21 12:00 Mechanical Ventilator 02/07/21 12:00 101 02/07/21 11:10 115 28 45 02/07/21 11:09 96 02/07/21 11:00 109 33 117/79 (92) 94 02/07/21 10:00 98 22 115/76 (89) 97 02/07/21 09:00 90 21 114/71 (85) 97 02/07/21 09:00 98 21 02/07/21 08:43 104 22 99 Mechanical Ventilator 45 104 22 45 02/07/21 08:00 Mechanical Ventilator 02/07/21 08:00 112 02/07/21 08:00 98.1 91 16 111/75 (87) 97 02/07/21 08:00 45 02/07/21 07:00 102 22 45 02/07/21 07:00 86 22 123/80 (94) 95 02/07/21 06:30 110 30 128/82 (97) 96 02/07/21 06:00 103 31 122/77 (92) 98 02/07/21 05:30 98 14 117/75 (89) 100 02/07/21 05:00 106 121/78 (92) 99 02/07/21 04:30 105 123/73 (90) 98 02/07/21 04:00 45 02/07/21 04:00 103 02/07/21 04:00 Mechanical Ventilator 02/07/21 04:00 103 117/78 (91) 97 02/07/21 03:24 96 24 45 02/07/21 03:00 118/81 (93) 97 02/07/21 02:00 96 118/77 (91) 96 02/07/21 01:30 105 108/71 (83) 96 02/07/21 01:00 103 115/72 (86) 97 02/07/21 00:30 92 116/76 (89) 98 02/07/21 00:00 89 116/77 (90) 98 02/07/21 00:00 Mechanical Ventilator 02/07/21 00:00 93 02/06/21 23:30 97 26 109/71 (84) 97 02/06/21 23:16 94 22 45 02/06/21 23:00 99.7 02/06/21 23:00 99.5 02/06/21 23:00 98 21 105/68 (80) 97 02/06/21 22:30 110 19 122/77 (92) 99 02/06/21 22:00 117 30 116/72 (87) 97 02/06/21 21:30 107 119/83 (95) 96 02/06/21 21:00 106 111/72 (85) 98 02/06/21 20:30 113 19 116/79 (91) 96 02/06/21 20:00 45 02/06/21 20:00 96 119/81 (94) 97 02/06/21 20:00 Mechanical Ventilator 02/06/21 19:30 97 114/85 (95) 97 02/06/21 19:17 99 24 99 Mechanical Ventilator 45 104 24 45 02/06/21 19:00 93 111/76 (88) 97 02/06/21 19:00 93 111/76 (88) 97 02/06/21 18:00 112 22 117/83 (94) 95 02/06/21 17:00 97 24 117/79 (92) 97 02/06/21 16:00 45 02/06/21 16:00 99 02/06/21 16:00 99.5 99 17 124/81 (95) 98 02/06/21 16:00 Mechanical Ventilator 02/06/21 15:05 96 22 45 02/06/21 15:00 88 22 123/77 (92) 98 02/06/21 14:00 112 22 113/76 (88) 96 02/06/21 13:00 126 26 122/78 (93) 95 02/06/21 12:37 100.1 I&O Intake and Output 02/06/21 02/07/21 19:00 07:00 Intake Total 1224.170 ml 380 ml Output Total 2510 ml 950 ml Balance -1285.830 ml -570 ml Free Water 50 ml 10 ml IV Total 944.170 ml Tube Feeding 230 ml 370 ml Output Urine Total 2510 ml 950 ml Dressing: other Wound: other Cardiovascular: RSR Respiratory: decreased breath sounds Abdomen: soft, non-tender, present bowel sounds Extremities: no edema, no tenderness, no cyanosis Laboratory Tests Test 02/07/21 04:10 White Blood Count 13.2 K/UL (4.8-10.8) #H Red Blood Count 4.01 M/UL (4.70-6.10) L Hemoglobin 11.3 G/DL (14.2-18.0) L Hematocrit 36.1 % (42.0-52.0) L Mean Corpuscular Volume 90 FL (80-99) Mean Corpuscular Hemoglobin 28.3 PG (27.0-31.0) Mean Corpuscular Hemoglobin Concent 31.4 G/DL (32.0-36.0) L Red Cell Distribution Width 15.9 % (11.6-14.8) H Platelet Count 467 K/UL (150-450) H Mean Platelet Volume 7.3 FL (6.5-10.1) Neutrophils (%) (Auto) 77.1 % (45.0-75.0) H Lymphocytes (%) (Auto) 15.9 % (20.0-45.0) L Monocytes (%) (Auto) 5.8 % (1.0-10.0) Eosinophils (%) (Auto) 0.5 % (0.0-3.0) Basophils (%) (Auto) 0.7 % (0.0-2.0) Prothrombin Time 13.5 SEC (9.30-11.50) H Prothromb Time International Ratio 1.2 (0.9-1.1) H Sodium Level 137 MMOL/L (136-145) Potassium Level 3.9 MMOL/L (3.5-5.1) Chloride Level 101 MMOL/L (98-107) Carbon Dioxide Level 26 MMOL/L (21-32) Anion Gap 10 mmol/L (5-15) Blood Urea Nitrogen 6 mg/dL (7-18) L Creatinine 0.6 MG/DL (0.55-1.30) Estimat Glomerular Filtration Rate > 60 mL/min (>60) Glucose Level 135 MG/DL (74-106) H Calcium Level 9.7 MG/DL (8.5-10.1) Plan Problems: (1) COPD (chronic obstructive pulmonary disease) (2) Essential hypertension (3) Schizophrenia (4) Obesity (5) Diabetes mellitus type 2 in obese (6) History of hydrocephalus (7) Anticoagulant long-term use (8) Bipolar 1 disorder (9) History of deep venous thrombosis or pulmonary embolus (10) Acute hypercapnic respiratory failure (11) Sepsis Assessment & Plan: 60-year-old male Covid positive respiratory insufficiency and severe decline being prone intubated on vent support labs noted septic ill- appearing has been developing wound around the face from ET tube.Receiv ed report from [facility] pt is being proned and was observed to have developed a blood blister under vent tape on L cheek and L earlobe. Skin assessed and pt was observed to have a blood blister that is 50% de-capped,50% intact. Intact Blood Blister noted to L earlobe. Skin Barrier applied to affected areas. Optifoam Thin foam placed between vent anchor and pt's skin. Optifoam thin placed to R cheek under Vent tape, on Bridge of nose and both earlobes. Given patient's critical status current care plan and findings nutritional optimization is strongly encouraged Covid nutrition plan initiated. All Covid precautions are being taken. Imaging reviewed. Will follow with care plan. Thank you [facility] participation care Tx.Plan: Maintain Optifoam Thin foam to R and L cheeks,Bridge of Nose and Both Ears . Change every 7 days and prn.( May request Optifoam Thin from [facility] dept). APM/PEPE Mattress overlay DAILY ESTIMATED NEEDS: Needs based on Critical care, pulmonary, obese 73.7kg abw 22-28 kcals/kg 1275-7124 total kcals 1.2-2 g protein/kg 88-147 g total protein 25-30 mL/kg 9471-5362 total fluid mLs NUTRITION DIAGNOSIS: Altered nutrition related lab values r/t steroidal meds, clinical status as evidenced by febrile on adm (102.5), elevated BG (270 287) on solumedrol, elevated lipid panel (Triglycerides 333, Chol 370, LDL 150). CURRENT TF:Vital @30ml/hr, now Nepro @30 ENTERAL NUTRITION RECOMMENDATIONS: NEPRO @30ml/hr while supine to provide x8 hrs feeds: 360ml, 648 kcal, 29g pro, 262ml free H2O - Feed at rate best tolerated, currently not meeting est needs d/t proning and aspiration risk w/ supine feeds limited to 8hrs/day. - W/ reduced aspiration risk rec feedings to total Volume of 900ml/day of Nepro as medically able. - Monitor tolerance, position/HOB >30 degrees, hemodynamic stability and ability to increase to meet est kcal and pro needs. - With increase pressor support, rec trophic feeds of 10ml/hr for gut integrity. - When tolerating TF at goal add Prosource BID to better meet est pro needs. ADDITIONAL RECOMMENDATIONS: 1) Now intubated, TF recs above when off proning (8hrs feeds) 2) Obtain calibrated bedscale wts 3) HgA1C/ elevated BG Need for niss while on D5 4) Lytes daily; replete as needed 5) Monitor triglycerides, TF tolerance, hemodynamic stability. (12) Respiratory failure with hypoxia Assessment & Plan: cont weaning vent wean pressors not ready for trach off pressors improving HD stable plan trach soon as unable to extubate s/p trach 02/05 plan peg (13) Pneumonia due to COVID-19 virus (14) Hyperkalemia (15) DMII (diabetes mellitus, type 2) Ki Strong Feb 07, 2021 12:28
--- NOTE | 2021-02-07 12:52 | General Progress Note ---
Subjective ROS Limited/Unobtainable: No Allergies: Coded Allergies: No Known Allergies (Unverified , 01/02/21) Objective Last 24 Hour Vital Signs Date Time Temp Pulse Resp B/P (MAP) Pulse Ox O2 Delivery O2 Flow Rate FiO2 02/07/21 12:00 45 02/07/21 12:00 98.4 96 22 107/72 (84) 97 02/07/21 12:00 Mechanical Ventilator 02/07/21 12:00 101 02/07/21 11:10 115 28 45 02/07/21 11:09 96 02/07/21 11:00 109 33 117/79 (92) 94 02/07/21 10:00 98 22 115/76 (89) 97 02/07/21 09:00 90 21 114/71 (85) 97 02/07/21 09:00 98 21 02/07/21 08:43 104 22 99 Mechanical Ventilator 45 104 22 45 02/07/21 08:00 Mechanical Ventilator 02/07/21 08:00 112 02/07/21 08:00 98.1 91 16 111/75 (87) 97 02/07/21 08:00 45 02/07/21 07:00 102 22 45 02/07/21 07:00 86 22 123/80 (94) 95 02/07/21 06:30 110 30 128/82 (97) 96 02/07/21 06:00 103 31 122/77 (92) 98 02/07/21 05:30 98 14 117/75 (89) 100 02/07/21 05:00 106 121/78 (92) 99 02/07/21 04:30 105 123/73 (90) 98 02/07/21 04:00 45 02/07/21 04:00 103 02/07/21 04:00 Mechanical Ventilator 02/07/21 04:00 103 117/78 (91) 97 02/07/21 03:24 96 24 45 02/07/21 03:00 118/81 (93) 97 02/07/21 02:00 96 118/77 (91) 96 02/07/21 01:30 105 108/71 (83) 96 02/07/21 01:00 103 115/72 (86) 97 02/07/21 00:30 92 116/76 (89) 98 02/07/21 00:00 89 116/77 (90) 98 02/07/21 00:00 Mechanical Ventilator 02/07/21 00:00 93 02/06/21 23:30 97 26 109/71 (84) 97 02/06/21 23:16 94 22 45 02/06/21 23:00 99.7 02/06/21 23:00 99.5 02/06/21 23:00 98 21 105/68 (80) 97 02/06/21 22:30 110 19 122/77 (92) 99 02/06/21 22:00 117 30 116/72 (87) 97 02/06/21 21:30 107 119/83 (95) 96 02/06/21 21:00 106 111/72 (85) 98 02/06/21 20:30 113 19 116/79 (91) 96 02/06/21 20:00 45 02/06/21 20:00 96 119/81 (94) 97 02/06/21 20:00 Mechanical Ventilator 02/06/21 19:30 97 114/85 (95) 97 02/06/21 19:17 99 24 99 Mechanical Ventilator 45 104 24 45 02/06/21 19:00 93 111/76 (88) 97 02/06/21 19:00 93 111/76 (88) 97 02/06/21 18:00 112 22 117/83 (94) 95 02/06/21 17:00 97 24 117/79 (92) 97 02/06/21 16:00 45 02/06/21 16:00 99 02/06/21 16:00 99.5 99 17 124/81 (95) 98 02/06/21 16:00 Mechanical Ventilator 02/06/21 15:05 96 22 45 02/06/21 15:00 88 22 123/77 (92) 98 02/06/21 14:00 112 22 113/76 (88) 96 02/06/21 13:00 126 26 122/78 (93) 95 Intake and Output 02/06/21 02/07/21 19:00 07:00 Intake Total 1224.170 ml 380 ml Output Total 2510 ml 950 ml Balance -1285.830 ml -570 ml Free Water 50 ml 10 ml IV Total 944.170 ml Tube Feeding 230 ml 370 ml Output Urine Total 2510 ml 950 ml Laboratory Tests 02/07/21 04:10: White Blood Count 13.2#H, Red Blood Count 4.01L, Hemoglobin 11.3L, Hematocrit 36.1L, Mean Corpuscular Volume 90, Mean Corpuscular Hemoglobin 28.3, Mean Corpuscular Hemoglobin Concent 31.4L, Red Cell Distribution Width 15.9H, Platelet Count 467H, Mean Platelet Volume 7.3, Neutrophils (%) (Auto) 77.1H, Lymphocytes (%) (Auto) 15.9L, Monocytes (%) (Auto) 5.8, Eosinophils (%) (Auto) 0.5, Basophils (%) (Auto) 0.7, Prothrombin Time 13.5H, Prothromb Time Volleyball Coach ational Ratio 1.2H, Sodium Level 137, Potassium Level 3.9, Chloride Level 101, Carbon Dioxide Level 26, Anion Gap 10, Blood Urea Nitrogen 6L, Creatinine 0.6, Estimat Glomerular Filtration Rate > 60, Glucose Level 135H, Calcium Level 9.7 Height (Feet): 5 Height (Inches): 5.00 Weight (Pounds): 223 General Appearance: no apparent distress EENT: normal ENT inspection Neck: supple Cardiovascular: normal rate Respiratory/Chest: decreased breath sounds Abdomen: normal bowel sounds, non tender, soft Extremities: non-tender Assessment/Plan Problem List: (1) Schizophrenia, paranoid type ICD Codes: F20.0 - Paranoid schizophrenia SNOMED: 77081326 (2) DMII (diabetes mellitus, type 2) ICD Codes: E11.9 - Type 2 diabetes mellitus without complications SNOMED: 29025448 (3) Obesity ICD Codes: E66.9 - Obesity, unspecified SNOMED: 049972021, 558814211 (4) COPD (chronic obstructive pulmonary disease) ICD Codes: J44.9 - Chronic obstructive pulmonary disease, unspecified SNOMED: 80118576 (5) Essential hypertension ICD Codes: I10 - Essential (primary) hypertension SNOMED: 75384252 Status: unchanged Assessment/Plan: s/p trach s/p GT placement GTF add colace and mirnaborx Carlos Malhotra MD Feb 07, 2021 12:52
--- NOTE | 2021-02-07 14:25 | Nephrology Progress Note ---
Assessment/Plan Problem List: (1) Hyperkalemia (2) Pneumonia due to COVID-19 virus (3) Respiratory failure with hypoxia (4) Obesity (5) Schizophrenia (6) DMII (diabetes mellitus, type 2) Assessment Hyperkalemia Stable renal parameters Hyperglycemia Covid pneumonia due to COVID-19 virus Acute respiratory failure with hypoxia requiring mechanical ventilation History of COPD History of DVT, pulmonary emboli Obese Hypertension History of diabetes Psych condition, schizophrenia, bipolar disease Plan February 07: Labs reviewed. Renal parameters stable. Patient is trach connected to vent has a PEG and is full code. Continue per consultants. February 06: Full code. Intubated on ventilator. Had tracheostomy. Due for PEG. Continue as is. February 05: Full code. Intubated on ventilator. Due for tracheostomy today as per RN. Renal parameters stable. Continue as is. February 04: Remains full code. Intubated on ventilator. FiO2 40%. Due for trach eostomy. Stable from renal standpoint of view. February 03: Remains intubated on ventilator. FiO2 40%. Discussed with RN. Clair hair is planned to have tracheostomy. Labs reviewed. Renal parameters stable. February 02: Status quo. Full code. Intubated on ventilator. FiO2 40%. Renal parameters stable. February 01: Status quo. FiO2 40%. Full code. Labs reviewed. Renal parameters stable. January 31: Status quo. FiO2 45%. Full code. Renal parameters stable. Abnormal electrolytes addressed. January 30: Status quo. Remains full code. Intubated. On ventilator. Low magnesium addressed. Continue per consultants. January 29: Status quo. Labs reviewed. Low magnesium addressed. Discussed with JOHAN Ratliff. Continue per consultants. January 28: Status quo. Labs and medication list reviewed. K-Phos supplement ordered. Continue per current treatment plan. January 27: Patient remains full code. Intubated on ventilator. FiO2 50%. Labs reviewed. Renal parameters stable. Medication list reviewed. January 26: Full code. Intubated. On ventilator. FiO2 65%. No CHEM panel drawn today. Continue per consultants. January 25: Status unchanged. Blood pressure low. Remains full code on ventilator. Continue per consultants. Medication list reviewed. INR is 3.8 today. January 24: Status quo. Intubated on ventilator and full code. Labs reviewed. Medication list reviewed. Continue per consultants. January 23: Patient on prone position. IntubatedFiO2 65%. Renal parameters stable. Continue per consultants. Date hospitalization. Possible trach?. January 22: FiO2 50%. Prone position. Labs reviewed. Stable from renal standpoint of view. Continue per consultants. January 21: Full code. Intubated on ventilator. FiO2 40%. Labs reviewed. Renal parameters stable. Continue per consultants. January 20: Status unchanged. Full code. On ventilator. Chest x-ray reviewed. IV fluid discontinued. Potassium supplement given. 1 dose of Lasix given. Albumin bolus given. Midodrine started. Will monitor renal parameters and electrolytes. Discussed with JOHAN Mohamud. January 19: Labs reviewed. Renal parameters stable. Remains full code intuba lizandro on ventilator. FiO2 50%. Continue per consultants. January 18: Full code. Intubated. On ventilator. FiO2 down to 35%. No labs drawn today. Continue to monitor renal parameters and electrolytes. January 17: Full code. Intubated on ventilator. FiO2 remains at 60%. Labs reviewed. Renal parameters stable. January 16: Full code. Intubated. Labs reviewed. Renal parameters stable. FiO2 60%. Continue per consultants. January 15: Patient remains intubated and full code. Labs reviewed. Stable renal parameters. January 14: Patient full code. Intubated on ventilator. On prone position until 5 PM. Labs reviewed. Stable from renal standpoint of view. January 13: Labs reviewed. Renal parameters stable. Continue per consultants. Patient remain full code and intubated on ventilator. January 12: Labs reviewed. Renal parameters stable. Patient remains full code. Remains intubated on ventilator and on prone position. Continue per consultants. January 11: Labs reviewed. Renal parameters stable. Continue per consultants. January 10: Labs reviewed. Renal parameters stable. Continue per consultants. Change IV to half-normal saline Kayexalate via NG tube for high potassium Monitor electrolytes and renal parameters Per orders, per consultants Subjective ROS Limited/Unobtainable: Yes Objective Objective Last 24 Hour Vital Signs Date Time Temp Pulse Resp B/P (MAP) Pulse Ox O2 Delivery O2 Flow Rate FiO2 02/07/21 13:00 101 22 92/45 (61) 96 02/07/21 12:00 45 02/07/21 12:00 98.4 96 22 107/72 (84) 97 02/07/21 12:00 Mechanical Ventilator 02/07/21 12:00 101 02/07/21 11:10 115 28 45 02/07/21 11:09 96 02/07/21 11:00 109 33 117/79 (92) 94 02/07/21 10:00 98 22 115/76 (89) 97 02/07/21 09:00 90 21 114/71 (85) 97 02/07/21 09:00 98 21 02/07/21 08:43 104 22 99 Mechanical Ventilator 45 104 22 45 02/07/21 08:00 Mechanical Ventilator 02/07/21 08:00 112 02/07/21 08:00 98.1 91 16 111/75 (87) 97 02/07/21 08:00 45 02/07/21 07:00 102 22 45 02/07/21 07:00 86 22 123/80 (94) 95 02/07/21 06:30 110 30 128/82 (97) 96 02/07/21 06:00 103 31 122/77 (92) 98 02/07/21 05:30 98 14 117/75 (89) 100 02/07/21 05:00 106 121/78 (92) 99 02/07/21 04:30 105 123/73 (90) 98 02/07/21 04:00 45 02/07/21 04:00 103 02/07/21 04:00 Mechanical Ventilator 02/07/21 04:00 103 117/78 (91) 97 02/07/21 03:24 96 24 45 02/07/21 03:00 118/81 (93) 97 02/07/21 02:00 96 118/77 (91) 96 02/07/21 01:30 105 108/71 (83) 96 02/07/21 01:00 103 115/72 (86) 97 02/07/21 00:30 92 116/76 (89) 98 02/07/21 00:00 89 116/77 (90) 98 02/07/21 00:00 Mechanical Ventilator 02/07/21 00:00 93 02/06/21 23:30 97 26 109/71 (84) 97 02/06/21 23:16 94 22 45 02/06/21 23:00 99.7 02/06/21 23:00 99.5 3/10/21 23:00 98 21 105/68 (80) 97 02/06/21 22:30 110 19 122/77 (92) 99 02/06/21 22:00 117 30 116/72 (87) 97 02/06/21 21:30 107 119/83 (95) 96 02/06/21 21:00 106 111/72 (85) 98 02/06/21 20:30 113 19 116/79 (91) 96 02/06/21 20:00 45 02/06/21 20:00 96 119/81 (94) 97 02/06/21 20:00 Mechanical Ventilator 02/06/21 19:30 97 114/85 (95) 97 02/06/21 19:17 99 24 99 Mechanical Ventilator 45 104 24 45 02/06/21 19:00 93 111/76 (88) 97 02/06/21 19:00 93 111/76 (88) 97 02/06/21 18:00 112 22 117/83 (94) 95 02/06/21 17:00 97 24 117/79 (92) 97 02/06/21 16:00 45 02/06/21 16:00 99 02/06/21 16:00 99.5 99 17 124/81 (95) 98 02/06/21 16:00 Mechanical Ventilator 02/06/21 15:05 96 22 45 02/06/21 15:00 88 22 123/77 (92) 98 Intake and Output 02/06/21 02/07/21 19:00 07:00 Intake Total 1224.170 ml 380 ml Output Total 2510 ml 950 ml Balance -1285.830 ml -570 ml Free Water 50 ml 10 ml IV Total 944.170 ml Tube Feeding 230 ml 370 ml Output Urine Total 2510 ml 950 ml Current Medications Medications (Trade) Dose Ordered Sig/Johnny Route PRN Reason Start Time Stop Time Status Last Admin Dose Admin Acetaminophen (Tylenol) 650 mg Q6H PRN NG Temp >100.5 01/09/21 09:15 02/08/21 09:14 02/06/21 22:30 Acetaminophen (Tylenol) 650 mg Q6H PRN NG Mild Pain (Pain Scale 1-3) 01/09/21 09:15 02/08/21 09:14 02/03/21 04:10 Acetylcysteine (Mucomyst) 200 mg Q6HRT N 02/03/21 13:00 05/04/21 12:59 02/07/21 08:39 Albuterol/ Ipratropium (Albuterol/ Ipratropium) 3 ml Q6HRT HHN 02/03/21 13:00 02/08/21 12:59 02/07/21 08:37 Dextrose (Dextrose 50%) 25 ml Q30M PRN IV Hypoglycemia 01/06/21 23:45 04/06/21 23:44 Dextrose (Dextrose 50%) 50 ml Q30M PRN IV Hypoglycemia 01/06/21 23:45 04/06/21 23:44 Docusate Sodium (Colace) 100 mg TWICE A DAY NG 02/07/21 18:00 03/09/21 17:59 Hydromorphone HCl (Dilaudid) 0.5 mg Q2H PRN IVP Severe Pain (Pain Scale 7-10) 02/06/21 13:42 02/13/21 13:41 02/06/21 22:30 Insulin Aspart (NovoLOG) EVERY 6 HOURS SUBQ 01/09/21 12:00 04/04/21 16:29 02/06/21 18:26 Lansoprazole (Prevacid) 30 mg DAILY GT 01/24/21 09:00 02/15/21 08:59 02/07/21 09:18 Lorazepam (Ativan 2mg/ml 1ml) 0.5 mg Q6H PRN IV For Seizures 02/05/21 03:15 02/12/21 03:14 02/05/21 03:55 Lorazepam (Ativan 2mg/ml 1ml) 1 mg Q2H PRN IV For Anxiety 02/06/21 08:15 02/13/21 08:14 02/06/21 11:58 Metoclopramide HCl (Reglan) 5 mg Q6H PRN IVP Nausea & Vomiting 02/06/21 00:15 03/08/21 00:14 Midodrine (Pro-Amatine) 10 mg Q8HR ORAL 01/20/21 14:00 04/20/21 13:59 02/07/21 13:16 Ondansetron HCl (Zofran) 4 mg Q6H PRN IVP Nausea & Vomiting 02/06/21 00:15 03/08/21 00:14 Polyethylene Glycol (Miralax) 17 gm BEDTIME NG 02/07/21 21:00 03/09/21 20:59 Potassium Chloride (K-Dur) 20 meq TWICE A DAY NG 01/20/21 13:00 04/20/21 12:59 02/07/21 09:18 Quetiapine Fumarate (SEROqueL) 100 mg Q12HR ORAL 01/20/21 15:00 03/06/21 14:59 02/07/21 09:18 Valproic Acid (Depakene) 500 mg Q12HR GT 01/22/21 21:00 02/21/21 20:59 02/07/21 09:18 Vancomycin HCl 250 ml @ 166.667 mls/hr Q8H IVPB 02/01/21 09:00 02/11/21 08:59 02/07/21 09:18 [facility]a DAILY PRN MISC Per rx protocol 01/25/21 08:15 02/24/21 08:14 Warfarin Sodium (Coumadin per pharmacy) 1 ea DAILY PRN MISC . 02/07/21 17:00 03/09/21 16:59 Warfarin Sodium (Coumadin) 5 mg COUMADIN ORAL 02/07/21 17:00 02/07/21 18:00 Laboratory Tests 02/07/21 04:10: White Blood Count 13.2#H, Red Blood Count 4.01L, Hemoglobin 11.3L, Hematocrit 36.1L, Mean Corpuscular Volume 90, Mean Corpuscular Hemoglobin 28.3, Mean Corpuscular Hemoglobin Concent 31.4L, Red Cell Distribution Width 15.9H, Platelet Count 467H, Mean Platelet Volume 7.3, Neutrophils (%) (Auto) 77.1H, Lymphocytes (%) (Auto) 15.9L, Monocytes (%) (Auto) 5.8, Eosinophils (%) (Auto) 0.5, Basophils (%) (Auto) 0.7, Prothrombin Time 13.5H, Prothromb Time International Ratio 1.2H, Sodium Level 137, Potassium Level 3.9, Chloride Level 101, Carbon Dioxide Level 26, Anion Gap 10, Blood Urea Nitrogen 6L, Creatinine 0.6, Estimat Glomerular Filtration Rate > 60, Glucose Level 135H, Calcium Level 9.7 Height (Feet): 5 Height (Inches): 5.00 Weight (Pounds): 223 General Appearance: no apparent distress EENT: other - Trach to vent Cardiovascular: tachycardia Respiratory/Chest: decreased breath sounds Abdomen: distended Avi Frye MD Feb 07, 2021 14:25
--- NOTE | 2021-02-07 15:09 | Internal Med Progress Note ---
Subjective Physician Name Geovanny Bradley Attending Physician Geovanny Bradley MD Current Medications Medications (Trade) Dose Ordered Sig/Johnny Route PRN Reason Start Time Stop Time Status Last Admin Dose Admin Acetaminophen (Tylenol) 650 mg Q6H PRN NG Temp >100.5 01/09/21 09:15 02/08/21 09:14 02/06/21 22:30 Acetaminophen (Tylenol) 650 mg Q6H PRN NG Mild Pain (Pain Scale 1-3) 01/09/21 09:15 02/08/21 09:14 02/03/21 04:10 Acetylcysteine (Mucomyst) 200 mg Q6HRT N 02/03/21 13:00 05/04/21 12:59 02/07/21 14:29 Albuterol/ Ipratropium (Albuterol/ Ipratropium) 3 ml Q6HRT HHN 02/03/21 13:00 02/08/21 12:59 02/07/21 14:29 Dextrose (Dextrose 50%) 25 ml Q30M PRN IV Hypoglycemia 01/06/21 23:45 04/06/21 23:44 Dextrose (Dextrose 50%) 50 ml Q30M PRN IV Hypoglycemia 01/06/21 23:45 04/06/21 23:44 Docusate Sodium (Colace) 100 mg TWICE A DAY NG 02/07/21 18:00 03/09/21 17:59 Hydromorphone HCl (Dilaudid) 0.5 mg Q2H PRN IVP Severe Pain (Pain Scale 7-10) 02/06/21 13:42 02/13/21 13:41 02/06/21 22:30 Insulin Aspart (NovoLOG) EVERY 6 HOURS SUBQ 01/09/21 12:00 04/04/21 16:29 02/06/21 18:26 Lansoprazole (Prevacid) 30 mg DAILY GT 01/24/21 09:00 02/15/21 08:59 02/07/21 09:18 Lorazepam (Ativan 2mg/ml 1ml) 0.5 mg Q6H PRN IV For Seizures 02/05/21 03:15 02/12/21 03:14 02/05/21 03:55 Lorazepam (Ativan 2mg/ml 1ml) 1 mg Q2H PRN IV For Anxiety 02/06/21 08:15 02/13/21 08:14 02/06/21 11:58 Metoclopramide HCl (Reglan) 5 mg Q6H PRN IVP Nausea & Vomiting 02/06/21 00:15 03/08/21 00:14 Midodrine (Pro-Amatine) 10 mg Q8HR ORAL 01/20/21 14:00 04/20/21 13:59 02/07/21 13:16 Ondansetron HCl (Zofran) 4 mg Q6H PRN IVP Nausea & Vomiting 02/06/21 00:15 03/08/21 00:14 Polyethylene Glycol (Miralax) 17 gm BEDTIME NG 02/07/21 21:00 03/09/21 20:59 Potassium Chloride (K-Dur) 20 meq TWICE A DAY NG 01/20/21 13:00 04/20/21 12:59 02/07/21 09:18 Quetiapine Fumarate (SEROqueL) 100 mg Q12HR ORAL 01/20/21 15:00 03/06/21 14:59 02/07/21 09:18 Valproic Acid (Depakene) 500 mg Q12HR GT 01/22/21 21:00 02/21/21 20:59 02/07/21 09:18 Vancomycin HCl 250 ml @ 166.667 mls/hr Q8H IVPB 02/01/21 09:00 02/11/21 08:59 02/07/21 09:18 Vancomycin HCl ([facility] pharmacy to dose) 1 ea DAILY PRN MISC Per rx protocol 01/25/21 08:15 02/24/21 08:14 Warfarin Sodium (Coumadin per pharmacy) 1 ea DAILY PRN MISC . 02/07/21 17:00 03/09/21 16:59 Warfarin Sodium (Coumadin) 5 mg COUMADIN ORAL 02/07/21 17:00 02/07/21 18:00 Allergies: Coded Allergies: No Known Allergies (Unverified , 01/02/21) Subjective in MICU, tracheostomy, remained on ventilation, open eyes, unable to F/U with simple commands, WBC: 13.02. Objective Last Vital Signs Date Time Temp Pulse Resp B/P (MAP) Pulse Ox O2 Delivery O2 Flow Rate FiO2 02/07/21 14:49 101 22 94 Mechanical Ventilator 40 100 22 40 02/07/21 14:00 93/61 (72) 02/07/21 12:00 98.4 02/06/21 05:55 65.0 Laboratory Tests Test 02/07/21 04:10 White Blood Count 13.2 K/UL (4.8-10.8) #H Red Blood Count 4.01 M/UL (4.70-6.10) L Hemoglobin 11.3 G/DL (14.2-18.0) L Hematocrit 36.1 % (42.0-52.0) L Mean Corpuscular Volume 90 FL (80-99) Mean Corpuscular Hemoglobin 28.3 PG (27.0-31.0) Mean Corpuscular Hemoglobin Concent 31.4 G/DL (32.0-36.0) L Red Cell Distribution Width 15.9 % (11.6-14.8) H Platelet Count 467 K/UL (150-450) H Mean Platelet Volume 7.3 FL (6.5-10.1) Neutrophils (%) (Auto) 77.1 % (45.0-75.0) H Lymphocytes (%) (Auto) 15.9 % (20.0-45.0) L Monocytes (%) (Auto) 5.8 % (1.0-10.0) Eosinophils (%) (Auto) 0.5 % (0.0-3.0) Basophils (%) (Auto) 0.7 % (0.0-2.0) Prothrombin Time 13.5 SEC (9.30-11.50) H Prothromb Time International Ratio 1.2 (0.9-1.1) H Sodium Level 137 MMOL/L (136-145) Potassium Level 3.9 MMOL/L (3.5-5.1) Chloride Level 101 MMOL/L (98-107) Carbon Dioxide Level 26 MMOL/L (21-32) Anion Gap 10 mmol/L (5-15) Blood Urea Nitrogen 6 mg/dL (7-18) L Creatinine 0.6 MG/DL (0.55-1.30) Estimat Glomerular Filtration Rate > 60 mL/min (>60) Glucose Level 135 MG/DL (74-106) H Calcium Level 9.7 MG/DL (8.5-10.1) Intake and Output 02/06/21 02/07/21 19:00 07:00 Intake Total 1224.170 ml 380 ml Output Total 2510 ml 950 ml Balance -1285.830 ml -570 ml Free Water 50 ml 10 ml IV Total 944.170 ml Tube Feeding 230 ml 370 ml Output Urine Total 2510 ml 950 ml Objective General: On ventilation, more responsive, open eyes. HEENT: NCAT, sclera anicteric, PERRL, EOMI. Neck: Supple, tracheostomy site intact. Lungs: mechanical breath sounds,,basal crackles, no Wheeze. Heart: Regular rate and rhythm, normal S1/S2, no murmurs Abdomen: soft, nontender, nondistended. Normoactive bowel sound, obesity, PEG. : Ferraro cath. Extremities: Left LE: No Cyanosis , clubbing or edema. Right LE AKA. Neuro: limited secondary to patient's status,moving upper extremities. Skin: warm, no rashes or lesions. Assessment/Plan Assessment/Plan (1) Pneumonia due to COVID-19 virus ICD Codes: U07.1 - COVID-19; J12.82 - Pneumonia due to coronavirus disease 2019 SNOMED: 963151706637505247 (2) Acute hypercapnic respiratory failure >> intubated 01/06 ICD Codes: J96.02 - Acute respiratory failure with hypercapnia SNOMED: 530700420 (3) Respiratory failure with hypoxia ICD Codes: J96.91 - Respiratory failure, unspecified with hypoxia SNOMED: 18048760973438306 Qualifiers: Qualified Codes: J96.01 - Acute respiratory failure with hypoxia (4) COPD (chronic obstructive pulmonary disease) ICD Codes: J44.9 - Chronic obstructive pulmonary disease, unspecified SNOMED: 56750001 (5) History of deep venous thrombosis or pulmonary embolus SNOMED: 248886955 (6) Obesity ICD Codes: E66.9 - Obesity, unspecified SNOMED: 980670375, 345161101 (7) Essential hypertension ICD Codes: I10 - Essential (primary) hypertension SNOMED: 47764825 (8) Diabetes mellitus type 2 in obese ICD Codes: E11.69 - Type 2 diabetes mellitus with other specified complication; E66.9 - Obesity, unspecified SNOMED: 38266998 (9) History of hydrocephalus ICD Codes: Z86.69 - Personal history of other diseases of the nervous system and sense organs SNOMED: 967764098 (10) Schizophrenia ICD Codes: F20.9 - Schizophrenia, unspecified SNOMED: 28255163 (11) Bipolar 1 disorder ICD Codes: F31.9 - Bipolar disorder, unspecified SNOMED: 403570787 (12) Anticoagulant long-term use ICD Codes: Z79.01 - FDC (current) use of anticoagulants SNOMED: 522105929 (13) Recurrent staph infection possible line sepsis. Assessment/Plan: Optimize pulmonary hygiene/mobilize as tolerated Completed Remdesivir IV Abx: Vanco IV F/U Cx's Monitor volumes and renal function DVT Px: Coumadin Monitor blood glucose level closely. FULL Code Tolerated Tube feeding @ 50 cc/hr. S/P endoscopy/PEG placement 02/06/21 S/P Trach 02/06/21 Discharge planning to subacute Unit. downgrade to stepdown from ICU. Geovanny Bradley MD Feb 07, 2021 15:09
[2021-02-07] MEDS ORDERED: Warfarin Sodium 5mg ORAL SCH (17:00)
[2021-02-07] MEDS: Docusate 100mg/10ml Liq NG SCH (17:37)
[2021-02-07] MEDS: Vancomycin 1 GM in NS 275 ML IVPB SCH (20:28)
[2021-02-07] MEDS: Miralax 17gm pkt NG SCH (20:30)
[2021-02-07] MEDS ORDERED: Miralax 17gm pkt ORAL SCH (21:00)
[2021-02-08] VITALS (19 sets, daily range): BP systolic 99–133; BP diastolic 55–80
[2021-02-08] MEDS: Acetylcysteine 20% Soln 4ml HHN SCH ×4 (01:01→19:09)
[2021-02-08] MEDS: Albuterol/Ipratropium 3ml neb HHN SCH ×4 (01:01→19:08)
[2021-02-08] MEDS: Vancomycin 1 GM in NS 275 ML IVPB SCH ×4 (04:00→21:02)
[2021-02-08 04:55] LABS: INR 1.2 (0.9-1.1)
[2021-02-08 05:00] LABS: ALANINE AMINOTRANSFERASE 16 U/L (12-78); ALBUMIN 1.9 G/DL (3.4-5.0); ALBUMIN/GLOBULIN RATIO 0.4 (1.0-2.7); ALKALINE PHOSPHATASE 99 U/L (46-116); ANION GAP 10 mmol/L (5-15); ASPARTATE AMINO TRANSFERASE 11 U/L (15-37); BILIRUBIN,TOTAL 0.3 MG/DL (0.2-1.0); BLOOD UREA NITROGEN 7 mg/dL (7-18); CARBON DIOXIDE 27 MMOL/L (21-32); CHLORIDE 102 MMOL/L (98-107); CREATININE 0.7 MG/DL (0.55-1.30); PHOSPHORUS 3.9 MG/DL (2.5-4.9); POTASSIUM 3.8 MMOL/L (3.5-5.1); SODIUM 139 MMOL/L (136-145)
[2021-02-08 05:01] LABS: BASOPHILS % (AUTO) 0.6 % (0.0-2.0); EOSINOPHILS % (AUTO) 0.4 % (0.0-3.0); HEMATOCRIT 34.4 % (42.0-52.0); HEMOGLOBIN 10.5 G/DL (14.2-18.0); LYMPHOCYTES % (AUTO) 16.9 % (20.0-45.0); MEAN CORPUSCULAR VOLUME 90 FL (80-99); MONOCYTES % (AUTO) 7.8 % (1.0-10.0); NEUTROPHILS % (AUTO) 74.4 % (45.0-75.0); PLATELET COUNT 417 K/UL (150-450); RED BLOOD COUNT 3.82 M/UL (4.70-6.10); RED CELL DISTRIBUTION WIDTH 15.8 % (11.6-14.8); WHITE BLOOD COUNT 12.2 K/UL (4.8-10.8)
[2021-02-08] MEDS: NovoLOG Insulin Flexpen SUBQ SCH ×5 (06:00→23:15)
[2021-02-08] MEDS: Midodrine 10mg tab ORAL SCH ×3 (07:12→21:03)
--- NOTE | 2021-02-08 07:59 | Infectious Diseases Prog Note ---
Assessment/Plan 60yo M with: Septic SHock Receurrent Gram postiive bacteremia r/o gentry infection -01/25 Bcx 2/ sets GPC clustesr Staph epi bacteremia ? infected fem line , Sp removal 02/01 01/10 BCx / +Staph epi 01/13 BCx Neg 01/25 BCx CoNS 2/2 01/28 BCx - CoNS /2 01/31/21 BCx - NGTD 02/02/21 BCx - 12/01 GPC 02/04/21 BCx - NGTD COVID pna, severe Acute hypoxia 01/01 COVID pna >> intubated 01/06- 50% FIo2 Febrile to 103; imporving Normal WBC Elevated AST 51 01/01 Tested positive for COVID at [facility] 01/02 COVID PCR positive 01/02 BCx NTD CXR: Multifocal pna MRSA nares neg 01/06 Intubated in ICU CXR: 1. Appropriately positioned endotracheal and enteric tubes. 2. Stable bilateral airspace disease. 01/07 Resp cx +Yasmine albicans (colonizer) 01/11 CXR: Interval improved bilateral lung aeration. Bibasilar infiltrates/atelectasis. Cr 1.1 PICC placement HIV screen neg PMH: DM2 COPD HTN SNF resident PICC placed 01/30/21 Plan: Cont Vancomycin # 17 Will be following the WBCs Repeat Blood Cx Monitor temps 02/01/21 SP Zosyn #7 01/22/21 steroids #19, on methylpred 20 IV q12 - defer course to Pulm/Primary, now tapering 01/19/21 SP Zosyn #10 01/14 SP vanco IV #1 01/09 SP CTX #7 01/07 SP azithro #5, RDV #5 This institution does not have access to convalescent plasma and only recommended to give in setting of clinical trial Monitor temp curve, hemodynamics Monitor resp status Rpt Blood Cx 2D echo D/w RN Thank you for this consult. [facility] will continue to follow. Subjective Allergies: Coded Allergies: No Known Allergies (Unverified , 01/02/21) Afebrile Remains on Vent 40% O2 Mild Leukocytosis improving Objective Last 24 Hour Vital Signs Date Time Temp Pulse Resp B/P (MAP) Pulse Ox O2 Delivery O2 Flow Rate FiO2 02/08/21 06:30 102 22 02/08/21 06:30 93 21 113/79 (90) 94 02/08/21 06:00 99 23 115/70 (85) 93 02/08/21 05:30 91 21 114/76 (89) 94 02/08/21 05:16 82 22 40 02/08/21 05:00 65 22 133/74 (93) 95 02/08/21 04:00 Mechanical Ventilator 02/08/21 04:00 101 02/08/21 04:00 100 22 107/70 (82) 91 02/08/21 04:00 40 02/08/21 03:30 108 23 114/64 (81) 93 02/08/21 03:14 99 22 40 02/08/21 03:00 103 21 106/68 (81) 96 02/08/21 02:00 89 16 124/80 (95) 96 02/08/21 01:30 81 22 124/79 (94) 96 02/08/21 01:02 96 23 99 Mechanical Ventilator 40 96 22 40 02/08/21 01:00 89 22 123/76 (92) 94 02/08/21 00:30 101 24 110/68 (82) 96 02/08/21 00:00 40 02/08/21 00:00 100 23 119/78 (92) 96 02/08/21 00:00 102 02/08/21 00:00 Mechanical Ventilator 02/07/21 23:00 93 22 114/74 (87) 97 02/07/21 22:54 94 24 40 02/07/21 22:30 92 21 127/73 (91) 97 02/07/21 22:00 110 24 100/61 (74) 95 02/07/21 21:31 100 24 40 02/07/21 21:30 107 17 100/58 (72) 95 02/07/21 21:00 109 0 96/58 (71) 93 02/07/21 20:30 92 14 109/72 (84) 97 02/07/21 20:00 Mechanical Ventilator 02/07/21 20:00 89 02/07/21 20:00 40 02/07/21 20:00 114 14 102/57 (72) 96 02/07/21 19:10 101 22 99 Mechanical Ventilator 40 103 22 40 02/07/21 19:00 101 16 93/60 (71) 96 02/07/21 18:00 108 11 100/57 (71) 99 02/07/21 17:00 101 21 99/63 (75) 95 02/07/21 16:00 97 02/07/21 16:00 Mechanical Ventilator 02/07/21 16:00 98.7 94 25 116/73 (87) 95 02/07/21 15:00 103 22 95/58 (70) 93 02/07/21 14:49 101 22 94 Mechanical Ventilator 40 100 22 40 02/07/21 14:39 40 02/07/21 14:00 99 22 93/61 (72) 96 02/07/21 13:00 101 22 92/45 (61) 96 02/07/21 12:00 45 02/07/21 12:00 98.4 96 22 107/72 (84) 97 02/07/21 12:00 Mechanical Ventilator 02/07/21 12:00 101 02/07/21 11:10 115 28 45 02/07/21 11:09 96 02/07/21 11:00 109 33 117/79 (92) 94 02/07/21 10:00 98 22 115/76 (89) 97 02/07/21 09:00 90 21 114/71 (85) 97 02/07/21 09:00 98 21 02/07/21 08:43 104 22 99 Mechanical Ventilator 45 104 22 45 02/07/21 08:00 Mechanical Ventilator 02/07/21 08:00 112 02/07/21 08:00 98.1 91 16 111/75 (87) 97 02/07/21 08:00 45 Height (Feet): 5 Height (Inches): 5.00 Weight (Pounds): 223 Gen: On Vent, Not following HEENT: NCAT, ETT, OGT Pulm: BL chest rise, RRR Skin: No visible rashes Neuro: Not following Lines STEPHANIE PICC lines in place Laboratory Tests Test 02/07/21 16:04 02/08/21 00:22 02/08/21 03:15 Vancomycin Level Trough 21.9 ug/mL (5.0-12.0) H POC Whole Blood Glucose 127 MG/DL (74-106) H White Blood Count 12.2 K/UL (4.8-10.8) H Red Blood Count 3.82 M/UL (4.70-6.10) L Hemoglobin 10.5 G/DL (14.2-18.0) L Hematocrit 34.4 % (42.0-52.0) L Mean Corpuscular Volume 90 FL (80-99) Mean Corpuscular Hemoglobin 27.5 PG (27.0-31.0) Mean Corpuscular Hemoglobin Concent 30.5 G/DL (32.0-36.0) L Red Cell Distribution Width 15.8 % (11.6-14.8) H Platelet Count 417 K/UL (150-450) Mean Platelet Volume 7.1 FL (6.5-10.1) Neutrophils (%) (Auto) 74.4 % (45.0-75.0) Lymphocytes (%) (Auto) 16.9 % (20.0-45.0) L Monocytes (%) (Auto) 7.8 % (1.0-10.0) Eosinophils (%) (Auto) 0.4 % (0.0-3.0) Basophils (%) (Auto) 0.6 % (0.0-2.0) Prothrombin Time 13.3 SEC (9.30-11.50) H Prothromb Time International Ratio 1.2 (0.9-1.1) H Sodium Level 139 MMOL/L (136-145) Potassium Level 3.8 MMOL/L (3.5-5.1) Chloride Level 102 MMOL/L (98-107) Carbon Dioxide Level 27 MMOL/L (21-32) Anion Gap 10 mmol/L (5-15) Blood Urea Nitrogen 7 mg/dL (7-18) Creatinine 0.7 MG/DL (0.55-1.30) Estimat Glomerular Filtration Rate > 60 mL/min (>60) Glucose Level 112 MG/DL (74-106) H Calcium Level 9.0 MG/DL (8.5-10.1) Phosphorus Level 3.9 MG/DL (2.5-4.9) Magnesium Level 1.9 MG/DL (1.8-2.4) Total Bilirubin 0.3 MG/DL (0.2-1.0) Aspartate Amino Transf (AST/SGOT) 11 U/L (15-37) L Alanine Aminotransferase (ALT/SGPT) 16 U/L (12-78) Alkaline Phosphatase 99 U/L (46-116) Total Protein 7.1 G/DL (6.4-8.2) Albumin 1.9 G/DL (3.4-5.0) L Globulin 5.2 g/dL Albumin/Globulin Ratio 0.4 (1.0-2.7) L Current Medications Medications (Trade) Dose Ordered Sig/Johnny Route PRN Reason Start Time Stop Time Status Last Admin Dose Admin Acetaminophen (Tylenol) 650 mg Q6H PRN NG Temp >100.5 01/09/21 09:15 02/08/21 09:14 02/06/21 22:30 Acetaminophen (Tylenol) 650 mg Q6H PRN NG Mild Pain (Pain Scale 1-3) 01/09/21 09:15 02/08/21 09:14 02/03/21 04:10 Acetylcysteine (Mucomyst) 200 mg Q6HRT N 02/03/21 13:00 05/04/21 12:59 02/08/21 07:50 Albuterol/ Ipratropium (Albuterol/ Ipratropium) 3 ml Q6HRT N 02/03/21 13:00 02/08/21 12:59 02/08/21 07:50 Dextrose (Dextrose 50%) 25 ml Q30M PRN IV Hypoglycemia 01/06/21 23:45 04/06/21 23:44 Dextrose (Dextrose 50%) 50 ml Q30M PRN IV Hypoglycemia 01/06/21 23:45 04/06/21 23:44 Docusate Sodium (Colace) 100 mg TWICE A DAY NG 02/07/21 18:00 03/09/21 17:59 02/07/21 17:37 Hydromorphone HCl (Dilaudid) 0.5 mg Q2H PRN IVP Severe Pain (Pain Scale 7-10) 02/06/21 13:42 02/13/21 13:41 02/06/21 22:30 Insulin Aspart (NovoLOG) EVERY 6 HOURS SUBQ 01/09/21 12:00 04/04/21 16:29 02/07/21 17:40 Lansoprazole (Prevacid) 30 mg DAILY GT 01/24/21 09:00 02/15/21 08:59 02/07/21 09:18 Lorazepam (Ativan 2mg/ml 1ml) 0.5 mg Q6H PRN IV For Seizures 02/05/21 03:15 02/12/21 03:14 02/05/21 03:55 Lorazepam (Ativan 2mg/ml 1ml) 1 mg Q2H PRN IV For Anxiety 02/06/21 08:15 02/13/21 08:14 02/06/21 11:58 Metoclopramide HCl (Reglan) 5 mg Q6H PRN IVP Nausea & Vomiting 02/06/21 00:15 03/08/21 00:14 Midodrine (Pro-Amatine) 10 mg Q8HR ORAL 01/20/21 14:00 04/20/21 13:59 02/08/21 07:12 Ondansetron HCl (Zofran) 4 mg Q6H PRN IVP Nausea & Vomiting 02/06/21 00:15 03/08/21 00:14 Polyethylene Glycol (Miralax) 17 gm BEDTIME NG 02/07/21 21:00 03/09/21 20:59 02/07/21 20:30 Potassium Chloride (K-Dur) 20 meq TWICE A DAY NG 01/20/21 13:00 04/20/21 12:59 02/07/21 17:38 Quetiapine Fumarate (SEROqueL) 100 mg Q12HR ORAL 01/20/21 15:00 03/06/21 14:59 02/07/21 20:31 Valproic Acid (Depakene) 500 mg Q12HR GT 01/22/21 21:00 02/21/21 20:59 02/07/21 20:30 Vancomycin HCl (Vanco pharmacy to dose) 1 ea DAILY PRN MISC Per rx protocol 01/25/21 08:15 02/24/21 08:14 Vancomycin HCl 1 gm/Sodium Chloride 275 ml @ 183.708 mls/hr Q8H IVPB 02/07/21 20:00 02/12/21 19:59 02/08/21 04:00 Warfarin Sodium (Coumadin per pharmacy) 1 ea DAILY PRN MISC . 02/07/21 17:00 03/09/21 16:59 Warfarin Sodium (Coumadin) 5 mg COUMADIN ORAL 02/08/21 17:00 02/08/21 18:00 Anuel Crespo MD Feb 08, 2021 07:59
[2021-02-08] MEDS: Docusate 100mg/10ml Liq NG SCH ×3 (08:16→18:00)
[2021-02-08] MEDS: Valproic Acid 250mg/5ml Liquid GT SCH ×2 (08:17→21:02)
--- NOTE | 2021-02-08 10:21 | Surgery Progress Note ---
Surgery Progress Note Subjective Procedure Performed tracheostomy Symptoms: improved, tolerating diet, voiding well, passing flatus Additional Comments looks more comfortable Objective Last 24 Hour Vital Signs Date Time Temp Pulse Resp B/P (MAP) Pulse Ox O2 Delivery O2 Flow Rate FiO2 02/08/21 10:00 91 20 112/72 (85) 95 02/08/21 09:00 103 26 99/55 (70) 92 02/08/21 08:00 Mechanical Ventilator 02/08/21 08:00 99.7 108 23 104/62 (76) 95 02/08/21 08:00 40 02/08/21 08:00 88 02/08/21 07:50 101 22 40 02/08/21 07:00 111 24 109/68 (82) 94 02/08/21 06:30 102 22 02/08/21 06:30 93 21 113/79 (90) 94 02/08/21 06:00 99 23 115/70 (85) 93 02/08/21 05:30 91 21 114/76 (89) 94 02/08/21 05:16 82 22 40 02/08/21 05:00 65 22 133/74 (93) 95 02/08/21 04:00 Mechanical Ventilator 02/08/21 04:00 101 02/08/21 04:00 100 22 107/70 (82) 91 02/08/21 04:00 40 02/08/21 03:30 108 23 114/64 (81) 93 02/08/21 03:14 99 22 40 02/08/21 03:00 103 21 106/68 (81) 96 02/08/21 02:00 89 16 124/80 (95) 96 02/08/21 01:30 81 22 124/79 (94) 96 02/08/21 01:02 96 23 99 Mechanical Ventilator 40 96 22 40 02/08/21 01:00 89 22 123/76 (92) 94 02/08/21 00:30 101 24 110/68 (82) 96 02/08/21 00:00 40 02/08/21 00:00 100 23 119/78 (92) 96 02/08/21 00:00 102 02/08/21 00:00 Mechanical Ventilator 02/07/21 23:00 93 22 114/74 (87) 97 02/07/21 22:54 94 24 40 02/07/21 22:30 92 21 127/73 (91) 97 02/07/21 22:00 110 24 100/61 (74) 95 02/07/21 21:31 100 24 40 02/07/21 21:30 107 17 100/58 (72) 95 02/07/21 21:00 109 0 96/58 (71) 93 02/07/21 20:30 92 14 109/72 (84) 97 02/07/21 20:00 Mechanical Ventilator 02/07/21 20:00 89 02/07/21 20:00 40 02/07/21 20:00 114 14 102/57 (72) 96 02/07/21 19:10 101 22 99 Mechanical Ventilator 40 103 22 40 02/07/21 19:00 101 16 93/60 (71) 96 02/07/21 18:00 108 11 100/57 (71) 99 02/07/21 17:00 101 21 99/63 (75) 95 02/07/21 16:00 97 02/07/21 16:00 Mechanical Ventilator 02/07/21 16:00 98.7 94 25 116/73 (87) 95 02/07/21 15:00 103 22 95/58 (70) 93 02/07/21 14:49 101 22 94 Mechanical Ventilator 40 100 22 40 02/07/21 14:39 40 02/07/21 14:00 99 22 93/61 (72) 96 02/07/21 13:00 101 22 92/45 (61) 96 02/07/21 12:00 45 02/07/21 12:00 98.4 96 22 107/72 (84) 97 02/07/21 12:00 Mechanical Ventilator 02/07/21 12:00 101 02/07/21 11:10 115 28 45 02/07/21 11:09 96 02/07/21 11:00 109 33 117/79 (92) 94 I&O Intake and Output 02/07/21 02/08/21 19:00 07:00 Intake Total 900.000 ml 730 ml Output Total 405 ml 525 ml Balance 495.000 ml 205 ml Free Water 50 ml 10 ml IV Total 250.000 ml Tube Feeding 600 ml 720 ml Output Urine Total 405 ml 525 ml Dressing: dry Wound: clean Cardiovascular: RSR Respiratory: clear Abdomen: soft, flat, non-tender, present bowel sounds, non-distended Extremities: no edema, no tenderness, no cyanosis Laboratory Tests Test 02/07/21 16:04 02/08/21 00:22 02/08/21 03:15 Vancomycin Level Trough 21.9 ug/mL (5.0-12.0) H POC Whole Blood Glucose 127 MG/DL (74-106) H White Blood Count 12.2 K/UL (4.8-10.8) H Red Blood Count 3.82 M/UL (4.70-6.10) L Hemoglobin 10.5 G/DL (14.2-18.0) L Hematocrit 34.4 % (42.0-52.0) L Mean Corpuscular Volume 90 FL (80-99) Mean Corpuscular Hemoglobin 27.5 PG (27.0-31.0) Mean Corpuscular Hemoglobin Concent 30.5 G/DL (32.0-36.0) L Red Cell Distribution Width 15.8 % (11.6-14.8) H Platelet Count 417 K/UL (150-450) Mean Platelet Volume 7.1 FL (6.5-10.1) Neutrophils (%) (Auto) 74.4 % (45.0-75.0) Lymphocytes (%) (Auto) 16.9 % (20.0-45.0) L Monocytes (%) (Auto) 7.8 % (1.0-10.0) Eosinophils (%) (Auto) 0.4 % (0.0-3.0) Basophils (%) (Auto) 0.6 % (0.0-2.0) Prothrombin Time 13.3 SEC (9.30-11.50) H Prothromb Time International Ratio 1.2 (0.9-1.1) H Sodium Level 139 MMOL/L (136-145) Potassium Level 3.8 MMOL/L (3.5-5.1) Chloride Level 102 MMOL/L (98-107) Carbon Dioxide Level 27 MMOL/L (21-32) Anion Gap 10 mmol/L (5-15) Blood Urea Nitrogen 7 mg/dL (7-18) Creatinine 0.7 MG/DL (0.55-1.30) Estimat Glomerular Filtration Rate > 60 mL/min (>60) Glucose Level 112 MG/DL (74-106) H Calcium Level 9.0 MG/DL (8.5-10.1) Phosphorus Level 3.9 MG/DL (2.5-4.9) Magnesium Level 1.9 MG/DL (1.8-2.4) Total Bilirubin 0.3 MG/DL (0.2-1.0) Aspartate Amino Transf (AST/SGOT) 11 U/L (15-37) L Alanine Aminotransferase (ALT/SGPT) 16 U/L (12-78) Alkaline Phosphatase 99 U/L (46-116) Total Protein 7.1 G/DL (6.4-8.2) Albumin 1.9 G/DL (3.4-5.0) L Globulin 5.2 g/dL Albumin/Globulin Ratio 0.4 (1.0-2.7) L Plan Problems: (1) COPD (chronic obstructive pulmonary disease) (2) Essential hypertension (3) Schizophrenia (4) Obesity (5) Diabetes mellitus type 2 in obese (6) History of hydrocephalus (7) Anticoagulant long-term use (8) Bipolar 1 disorder (9) History of deep venous thrombosis or pulmonary embolus (10) Acute hypercapnic respiratory failure (11) Sepsis Assessment & Plan: 60-year-old male Covid positive respiratory insufficiency and severe decline being prone intubated on vent support labs noted septic ill- appearing has been developing wound around the face from ET tube.Receiv ed report from RT pt is being proned and was observed to have developed a blood blister under vent tape on L cheek and L earlobe. Skin assessed and pt was observed to have a blood blister that is 50% de-capped,50% intact. Intact Blood Blister noted to L earlobe. Skin Barrier applied to affected areas. Optifoam Thin foam placed between vent anchor and pt's skin. Optifoam thin placed to R cheek under Vent tape, on Bridge of nose and both earlobes. Given patient's critical status current care plan and findings nutritional optimization is strongly encouraged Covid nutrition plan initiated. All Covid precautions are being taken. Imaging reviewed. Will follow with care plan. Thank you [facility] participation care Tx.Plan: Maintain Optifoam Thin foam to R and L cheeks,Bridge of Nose and Both Ears . Change every 7 days and prn.( May request Optifoam Thin from RT dept). APM/PEPE Mattress overlay DAILY ESTIMATED NEEDS: Needs based on Critical care, pulmonary, obese 73.7kg abw 22-28 kcals/kg 6969-5638 total kcals 1.2-2 g protein/kg 88-147 g total protein 25-30 mL/kg 0164-8810 total fluid mLs NUTRITION DIAGNOSIS: Altered nutrition related lab values r/t steroidal meds, clinical status as evidenced by febrile on adm (102.5), elevated BG (270 287) on solumedrol, elevated lipid panel (Triglycerides 333, Chol 370, LDL 150). CURRENT TF:Vital @30ml/hr, now Nepro @30 ENTERAL NUTRITION RECOMMENDATIONS: NEPRO @30ml/hr while supine to provide x8 hrs feeds: 360ml, 648 kcal, 29g pro, 262ml free H2O - Feed at rate best tolerated, currently not meeting est needs d/t proning and aspiration risk w/ supine feeds limited to 8hrs/day. - W/ reduced aspiration risk rec feedings to total Volume of 900ml/day of Nepro as medically able. - Monitor tolerance, position/HOB >30 degrees, hemodynamic stability and ability to increase to meet est kcal and pro needs. - With increase pressor support, rec trophic feeds of 10ml/hr for gut integrity. - When tolerating TF at goal add Prosource BID to better meet est pro needs. ADDITIONAL RECOMMENDATIONS: 1) Now intubated, TF recs above when off proning (8hrs feeds) 2) Obtain calibrated bedscale wts 3) HgA1C/ elevated BG Need for niss while on D5 4) Lytes daily; replete as needed 5) Monitor triglycerides, TF tolerance, hemodynamic stability. (12) Respiratory failure with hypoxia Assessment & Plan: cont weaning vent wean pressors not ready for trach off pressors improving HD stable plan trach soon as unable to extubate s/p trach 02/05 plan peg (13) Pneumonia due to COVID-19 virus (14) Hyperkalemia (15) DMII (diabetes mellitus, type 2) Ki Strong Feb 08, 2021 10:21
--- NOTE | 2021-02-08 12:28 | Nephrology Progress Note ---
Assessment/Plan Problem List: (1) Hyperkalemia (2) Pneumonia due to COVID-19 virus (3) Respiratory failure with hypoxia (4) Obesity (5) Schizophrenia (6) DMII (diabetes mellitus, type 2) Assessment Hyperkalemia Stable renal parameters Hyperglycemia Covid pneumonia due to COVID-19 virus Acute respiratory failure with hypoxia requiring mechanical ventilation History of COPD History of DVT, pulmonary emboli Obese Hypertension History of diabetes Psych condition, schizophrenia, bipolar disease Plan February 08: Labs reviewed. Renal parameters stable. Tracheostomy to vent. Full code. Continue per consultants. February 07: Labs reviewed. Renal parameters stable. Patient is trach connected to vent has a PEG and is full code. Continue per consultants. February 06: Full code. Intubated on ventilator. Had tracheostomy. Due for PEG. Continue as is. February 05: Full code. Intubated on ventilator. Due for tracheostomy today as per RN. Renal parameters stable. Continue as is. February 04: Remains full code. Intubated on ventilator. FiO2 40%. Due for tracheostomy. Stable from renal standpoint of view. February 03: Remains intubated on ventilator. FiO2 40%. Discussed with RN. Patient is planned to have tracheostomy. Labs reviewed. Renal parameters stable. February 02: Status quo. Full code. Intubated on ventilator. FiO2 40%. Renal parameters stable. February 01: Status quo. FiO2 40%. Full code. Labs reviewed. Renal parameters stable. January 31: Status quo. FiO2 45%. Full code. Renal parameters stable. Abnormal electrolytes addressed. January 30: Status quo. Remains full code. Intubated. On ventilator. Low magnesium addressed. Continue per consultants. January 29: Status quo. Labs reviewed. Low magnesium addressed. Discussed with JOHAN Ratliff. Continue per consultants. January 28: Status quo. Labs and medication list reviewed. K-Phos supplement ordered. Continue per current treatment plan. January 27: Patient remains full code. Intubated on ventilator. FiO2 50%. Labs reviewed. Renal parameters stable. Medication list reviewed. January 26: Full code. Intubated. On ventilator. FiO2 65%. No CHEM panel drawn today. Continue per consultants. January 25: Status unchanged. Blood pressure low. Remains full code on ventilator. Continue per consultants. Medication list reviewed. INR is 3.8 today. January 24: Status quo. Intubated on ventilator and full code. Labs reviewed. Medication list reviewed. Continue per consultants. January 23: Patient on prone position. IntubatedFiO2 65%. Renal parameters stable. Continue per consultants. Date hospitalization. Possible trach?. January 22: FiO2 50%. Prone position. Labs reviewed. Stable from renal standpoint of view. Continue per consultants. January 21: Full code. Intubated on ventilator. FiO2 40%. Labs reviewed. Renal parameters stable. Continue per consultants. January 20: Status unchanged. Full code. On ventilator. Chest x-ray reviewed. IV fluid discontinued. Potassium supplement given. 1 dose of Lasix given. Albumin bolus given. Midodrine started. Will monitor renal parameters and electrolytes. Discussed with JOHAN Mohamud. January 19: Labs reviewed. Renal parameters stable. Remains full code intubated on ventilator. FiO2 50%. Continue per consultants. January 18: Full code. Intubated. On ventilator. FiO2 down to 35%. No labs drawn today. Continue to monitor renal parameters and electrolytes. January 17: Full code. Intubated on ventilator. FiO2 remains at 60%. Labs reviewed. Renal parameters stable. January 16: Full code. Intubated. Labs reviewed. Renal parameters stable. FiO2 60%. Continue per consultants. January 15: Patient remains intubated and full code. Labs reviewed. Stable renal parameters. January 14: Patient full code. Intubated on ventilator. On prone position until 5 PM. Labs reviewed. Stable from renal standpoint of view. January 13: Labs reviewed. Renal parameters stable. Continue per consultants. Patient remain full code and intubated on ventilator. January 12: Labs reviewed. Renal parameters stable. Patient remains full code. Remains intubated on ventilator and on prone position. Continue per consultants. January 11: Labs reviewed. Renal parameters stable. Continue per consultants. January 10: Labs reviewed. Renal parameters stable. Continue per consultants. Change IV to half-normal saline Kayexalate via NG tube for high potassium Monitor electrolytes and renal parameters Per orders, per consultants Subjective ROS Limited/Unobtainable: Yes Objective Objective Last 24 Hour Vital Signs Date Time Temp Pulse Resp B/P (MAP) Pulse Ox O2 Delivery O2 Flow Rate FiO2 02/08/21 10:00 91 20 112/72 (85) 95 02/08/21 09:00 103 26 99/55 (70) 92 02/08/21 08:00 Mechanical Ventilator 02/08/21 08:00 99.7 108 23 104/62 (76) 95 02/08/21 08:00 40 02/08/21 08:00 88 02/08/21 07:50 101 22 40 02/08/21 07:00 111 24 109/68 (82) 94 02/08/21 06:30 102 22 02/08/21 06:30 93 21 113/79 (90) 94 02/08/21 06:00 99 23 115/70 (85) 93 02/08/21 05:30 91 21 114/76 (89) 94 02/08/21 05:16 82 22 40 02/08/21 05:00 65 22 133/74 (93) 95 02/08/21 04:00 Mechanical Ventilator 02/08/21 04:00 101 02/08/21 04:00 100 22 107/70 (82) 91 02/08/21 04:00 40 02/08/21 03:30 108 23 114/64 (81) 93 02/08/21 03:14 99 22 40 02/08/21 03:00 103 21 106/68 (81) 96 02/08/21 02:00 89 16 124/80 (95) 96 02/08/21 01:30 81 22 124/79 (94) 96 02/08/21 01:02 96 23 99 Mechanical Ventilator 40 96 22 40 02/08/21 01:00 89 22 123/76 (92) 94 02/08/21 00:30 101 24 110/68 (82) 96 02/08/21 00:00 40 02/08/21 00:00 100 23 119/78 (92) 96 02/08/21 00:00 102 02/08/21 00:00 Mechanical Ventilator 02/07/21 23:00 93 22 114/74 (87) 97 02/07/21 22:54 94 24 40 02/07/21 22:30 92 21 127/73 (91) 97 02/07/21 22:00 110 24 100/61 (74) 95 02/07/21 21:31 100 24 40 02/07/21 21:30 107 17 100/58 (72) 95 02/07/21 21:00 109 0 96/58 (71) 93 02/07/21 20:30 92 14 109/72 (84) 97 02/07/21 20:00 Mechanical Ventilator 02/07/21 20:00 89 02/07/21 20:00 40 02/07/21 20:00 114 14 102/57 (72) 96 02/07/21 19:10 101 22 99 Mechanical Ventilator 40 103 22 40 02/07/21 19:00 101 16 93/60 (71) 96 02/07/21 18:00 108 11 100/57 (71) 99 02/07/21 17:00 101 21 99/63 (75) 95 02/07/21 16:00 97 02/07/21 16:00 Mechanical Ventilator 02/07/21 16:00 98.7 94 25 116/73 (87) 95 02/07/21 15:00 103 22 95/58 (70) 93 02/07/21 14:49 101 22 94 Mechanical Ventilator 40 100 22 40 02/07/21 14:39 40 02/07/21 14:00 99 22 93/61 (72) 96 02/07/21 13:00 101 22 92/45 (61) 96 Intake and Output 02/07/21 02/08/21 19:00 07:00 Intake Total 900.000 ml 730 ml Output Total 405 ml 525 ml Balance 495.000 ml 205 ml Free Water 50 ml 10 ml IV Total 250.000 ml Tube Feeding 600 ml 720 ml Output Urine Total 405 ml 525 ml Current Medications Medications (Trade) Dose Ordered Sig/Johnny Route PRN Reason Start Time Stop Time Status Last Admin Dose Admin Acetylcysteine (Mucomyst) 200 mg Q6HRT N 02/03/21 13:00 05/04/21 12:59 02/08/21 07:50 Albuterol/ Ipratropium (Albuterol/ Ipratropium) 3 ml Q6HRT N 02/03/21 13:00 02/08/21 12:59 02/08/21 07:50 Dextrose (Dextrose 50%) 25 ml Q30M PRN IV Hypoglycemia 01/06/21 23:45 04/06/21 23:44 Dextrose (Dextrose 50%) 50 ml Q30M PRN IV Hypoglycemia 01/06/21 23:45 04/06/21 23:44 Docusate Sodium (Colace) 100 mg TWICE A DAY NG 02/07/21 18:00 03/09/21 17:59 02/08/21 08:16 Hydromorphone HCl (Dilaudid) 0.5 mg Q2H PRN IVP Severe Pain (Pain Scale 7-10) 02/06/21 13:42 02/13/21 13:41 02/06/21 22:30 Insulin Aspart (NovoLOG) EVERY 6 HOURS SUBQ 01/09/21 12:00 04/04/21 16:29 02/07/21 17:40 Lansoprazole (Prevacid) 30 mg DAILY GT 01/24/21 09:00 02/15/21 08:59 02/08/21 08:16 Lorazepam (Ativan 2mg/ml 1ml) 0.5 mg Q6H PRN IV For Seizures 02/05/21 03:15 02/12/21 03:14 02/05/21 03:55 Lorazepam (Ativan 2mg/ml 1ml) 1 mg Q2H PRN IV For Anxiety 02/06/21 08:15 02/13/21 08:14 02/06/21 11:58 Metoclopramide HCl (Reglan) 5 mg Q6H PRN IVP Nausea & Vomiting 02/06/21 00:15 03/08/21 00:14 Midodrine (Pro-Amatine) 10 mg Q8HR ORAL 01/20/21 14:00 04/20/21 13:59 02/08/21 07:12 Ondansetron HCl (Zofran) 4 mg Q6H PRN IVP Nausea & Vomiting 02/06/21 00:15 03/08/21 00:14 Polyethylene Glycol (Miralax) 17 gm BEDTIME NG 02/07/21 21:00 03/09/21 20:59 02/07/21 20:30 Potassium Chloride (K-Dur) 20 meq TWICE A DAY NG 01/20/21 13:00 04/20/21 12:59 02/08/21 08:17 Quetiapine Fumarate (SEROqueL) 100 mg Q12HR ORAL 01/20/21 15:00 03/06/21 14:59 02/08/21 08:17 Valproic Acid (Depakene) 500 mg Q12HR GT 01/22/21 21:00 02/21/21 20:59 02/08/21 08:17 Vancomycin HCl (Vanco pharmacy to dose) 1 ea DAILY PRN MISC Per rx protocol 01/25/21 08:15 02/24/21 08:14 Vancomycin HCl 1 gm/Sodium Chloride 275 ml @ 183.708 mls/hr Q8H IVPB 02/07/21 20:00 02/12/21 19:59 02/08/21 04:00 Warfarin Sodium (Coumadin per pharmacy) 1 ea DAILY PRN MISC . 02/07/21 17:00 03/09/21 16:59 Warfarin Sodium (Coumadin) 5 mg COUMADIN ORAL 02/08/21 17:00 02/08/21 18:00 Laboratory Tests 02/07/21 16:04: Vancomycin Level Trough 21.9H 02/08/21 00:22: POC Whole Blood Glucose 127H 02/08/21 03:15: White Blood Count 12.2H, Red Blood Count 3.82L, Hemoglobin 10.5L, Hematocrit 34.4L, Mean Corpuscular Volume 90, Mean Corpuscular Hemoglobin 27.5, Mean Corpuscular Hemoglobin Concent 30.5L, Red Cell Distribution Width 15.8H, Platelet Count 417, Mean Platelet Volume 7.1, Neutrophils (%) (Auto) 74.4, Lymphocytes (%) (Auto) 16.9L, Monocytes (%) (Auto) 7.8, Eosinophils (%) (Auto) 0.4, Basophils (%) (Auto) 0.6, Prothrombin Time 13.3H, Prothromb Time International Ratio 1.2H, Sodium Level 139, Potassium Level 3.8, Chloride Level 102, Carbon Dioxide Level 27, Anion Gap 10, Blood Urea Nitrogen 7, Creatinine 0.7, Estimat Glomerular Filtration Rate > 60, Glucose Level 112H, Calcium Level 9.0, Phosphorus Level 3.9, Magnesium Level 1.9, Total Bilirubin 0.3, Aspartate Amino Transf (AST/SGOT) 11L, Alanine Aminotransferase (ALT/SGPT) 16, Alkaline Phosphatase 99, Total Protein 7.1, Albumin 1.9L, Globulin 5.2, Albumin/Globulin Ratio 0.4L Height (Feet): 5 Height (Inches): 5.00 Weight (Pounds): 223 General Appearance: no apparent distress Cardiovascular: tachycardia Respiratory/Chest: decreased breath sounds Abdomen: distended Avi Frye MD Feb 08, 2021 12:28
[2021-02-08] MEDS: HYDROmorphone 1mg/ml Carpuject IVP PRN (13:12)
--- NOTE | 2021-02-08 16:01 | Internal Med Progress Note ---
Subjective Physician Name Geovanny Bradley Attending Physician Geovanny Bradley MD Current Medications Medications (Trade) Dose Ordered Sig/Johnny Route PRN Reason Start Time Stop Time Status Last Admin Dose Admin Acetylcysteine (Mucomyst) 200 mg Q6HRT N 02/03/21 13:00 05/04/21 12:59 02/08/21 14:09 Albuterol/ Ipratropium (Albuterol/ Ipratropium) 3 ml Q6HRT N 02/08/21 13:45 02/13/21 13:44 02/08/21 14:09 Dextrose (Dextrose 50%) 25 ml Q30M PRN IV Hypoglycemia 01/06/21 23:45 04/06/21 23:44 Dextrose (Dextrose 50%) 50 ml Q30M PRN IV Hypoglycemia 01/06/21 23:45 04/06/21 23:44 Docusate Sodium (Colace) 100 mg TWICE A DAY NG 02/07/21 18:00 03/09/21 17:59 02/08/21 08:16 Hydromorphone HCl (Dilaudid) 0.5 mg Q2H PRN IVP Severe Pain (Pain Scale 7-10) 02/06/21 13:42 02/13/21 13:41 02/08/21 13:12 Insulin Aspart (NovoLOG) EVERY 6 HOURS SUBQ 01/09/21 12:00 04/04/21 16:29 02/07/21 17:40 Lansoprazole (Prevacid) 30 mg DAILY GT 01/24/21 09:00 02/15/21 08:59 02/08/21 08:16 Lorazepam (Ativan 2mg/ml 1ml) 0.5 mg Q6H PRN IV For Seizures 02/05/21 03:15 02/12/21 03:14 02/05/21 03:55 Lorazepam (Ativan 2mg/ml 1ml) 1 mg Q2H PRN IV For Anxiety 02/06/21 08:15 02/13/21 08:14 02/06/21 11:58 Metoclopramide HCl (Reglan) 5 mg Q6H PRN IVP Nausea & Vomiting 02/06/21 00:15 03/08/21 00:14 Midodrine (Pro-Amatine) 10 mg Q8HR ORAL 01/20/21 14:00 04/20/21 13:59 02/08/21 13:10 Ondansetron HCl (Zofran) 4 mg Q6H PRN IVP Nausea & Vomiting 02/06/21 00:15 03/08/21 00:14 Polyethylene Glycol (Miralax) 17 gm BEDTIME NG 02/07/21 21:00 03/09/21 20:59 02/07/21 20:30 Potassium Chloride (K-Dur) 20 meq TWICE A DAY NG 01/20/21 13:00 04/20/21 12:59 02/08/21 08:17 Quetiapine Fumarate (SEROqueL) 100 mg Q12HR ORAL 01/20/21 15:00 03/06/21 14:59 02/08/21 08:17 Valproic Acid (Depakene) 500 mg Q12HR GT 01/22/21 21:00 02/21/21 20:59 02/08/21 08:17 Vancomycin HCl (Vanco pharmacy to dose) 1 ea DAILY PRN MISC Per rx protocol 01/25/21 08:15 02/24/21 08:14 Vancomycin HCl 1 gm/Sodium Chloride 275 ml @ 183.708 mls/hr Q8H IVPB 02/07/21 20:00 02/12/21 19:59 02/08/21 12:54 Warfarin Sodium (Coumadin per pharmacy) 1 ea DAILY PRN MISC . 02/07/21 17:00 03/09/21 16:59 Warfarin Sodium (Coumadin) 5 mg COUMADIN ORAL 02/08/21 17:00 02/08/21 18:00 Allergies: Coded Allergies: No Known Allergies (Unverified , 01/02/21) Subjective In Step down unit, tracheostomy, remained on ventilation, open eyes, unable to F/U with simple commands, WBC: 12.2. Objective Last Vital Signs Date Time Temp Pulse Resp B/P (MAP) Pulse Ox O2 Delivery O2 Flow Rate FiO2 02/08/21 14:03 90 22 96 40 88 20 02/08/21 12:00 113/74 (87) 02/08/21 12:00 Mechanical Ventilator 02/08/21 08:00 99.7 02/06/21 05:55 65.0 Laboratory Tests Test 02/07/21 16:04 02/08/21 00:22 02/08/21 03:15 Vancomycin Level Trough 21.9 ug/mL (5.0-12.0) H POC Whole Blood Glucose 127 MG/DL (74-106) H White Blood Count 12.2 K/UL (4.8-10.8) H Red Blood Count 3.82 M/UL (4.70-6.10) L Hemoglobin 10.5 G/DL (14.2-18.0) L Hematocrit 34.4 % (42.0-52.0) L Mean Corpuscular Volume 90 FL (80-99) Mean Corpuscular Hemoglobin 27.5 PG (27.0-31.0) Mean Corpuscular Hemoglobin Concent 30.5 G/DL (32.0-36.0) L Red Cell Distribution Width 15.8 % (11.6-14.8) H Platelet Count 417 K/UL (150-450) Mean Platelet Volume 7.1 FL (6.5-10.1) Neutrophils (%) (Auto) 74.4 % (45.0-75.0) Lymphocytes (%) (Auto) 16.9 % (20.0-45.0) L Monocytes (%) (Auto) 7.8 % (1.0-10.0) Eosinophils (%) (Auto) 0.4 % (0.0-3.0) Basophils (%) (Auto) 0.6 % (0.0-2.0) Prothrombin Time 13.3 SEC (9.30-11.50) H Prothromb Time International Ratio 1.2 (0.9-1.1) H Sodium Level 139 MMOL/L (136-145) Potassium Level 3.8 MMOL/L (3.5-5.1) Chloride Level 102 MMOL/L (98-107) Carbon Dioxide Level 27 MMOL/L (21-32) Anion Gap 10 mmol/L (5-15) Blood Urea Nitrogen 7 mg/dL (7-18) Creatinine 0.7 MG/DL (0.55-1.30) Estimat Glomerular Filtration Rate > 60 mL/min (>60) Glucose Level 112 MG/DL (74-106) H Calcium Level 9.0 MG/DL (8.5-10.1) Phosphorus Level 3.9 MG/DL (2.5-4.9) Magnesium Level 1.9 MG/DL (1.8-2.4) Total Bilirubin 0.3 MG/DL (0.2-1.0) Aspartate Amino Transf (AST/SGOT) 11 U/L (15-37) L Alanine Aminotransferase (ALT/SGPT) 16 U/L (12-78) Alkaline Phosphatase 99 U/L (46-116) Total Protein 7.1 G/DL (6.4-8.2) Albumin 1.9 G/DL (3.4-5.0) L Globulin 5.2 g/dL Albumin/Globulin Ratio 0.4 (1.0-2.7) L Intake and Output 02/07/21 02/08/21 19:00 07:00 Intake Total 900.000 ml 730 ml Output Total 405 ml 525 ml Balance 495.000 ml 205 ml Free Water 50 ml 10 ml IV Total 250.000 ml Tube Feeding 600 ml 720 ml Output Urine Total 405 ml 525 ml Objective General: On ventilation, more responsive, open eyes. HEENT: NCAT, sclera anicteric, PERRL, EOMI. Neck: Supple, tracheostomy site intact. Lungs: mechanical breath sounds,,basal crackles, no Wheeze. Heart: Regular rate and rhythm, normal S1/S2, no murmurs Abdomen: soft, nontender, nondistended. Normoactive bowel sound, obesity, PEG. : Ferraro cath. Extremities: Left LE: No Cyanosis , clubbing or edema. Right LE AKA. Neuro: limited secondary to patient's status,moving upper extremities. Skin: warm, no rashes or lesions. Assessment/Plan Assessment/Plan (1) Pneumonia due to COVID-19 virus ICD Codes: U07.1 - COVID-19; J12.82 - Pneumonia due to coronavirus disease 2019 SNOMED: 152432708084810437 (2) Acute hypercapnic respiratory failure >> intubated 01/06 ICD Codes: J96.02 - Acute respiratory failure with hypercapnia SNOMED: 085476734 (3) Respiratory failure with hypoxia ICD Codes: J96.91 - Respiratory failure, unspecified with hypoxia SNOMED: 37894717178434374 Qualifiers: Qualified Codes: J96.01 - Acute respiratory failure with hypoxia (4) COPD (chronic obstructive pulmonary disease) ICD Codes: J44.9 - Chronic obstructive pulmonary disease, unspecified SNOMED: 12595888 (5) History of deep venous thrombosis or pulmonary embolus SNOMED: 911777907 (6) Obesity ICD Codes: E66.9 - Obesity, unspecified SNOMED: 915518590, 134457462 (7) Essential hypertension ICD Codes: I10 - Essential (primary) hypertension SNOMED: 60180596 (8) Diabetes mellitus type 2 in obese ICD Codes: E11.69 - Type 2 diabetes mellitus with other specified complication; E66.9 - Obesity, unspecified SNOMED: 43727110 (9) History of hydrocephalus ICD Codes: Z86.69 - Personal history of other diseases of the nervous system and sense organs SNOMED: 782012838 (10) Schizophrenia ICD Codes: F20.9 - Schizophrenia, unspecified SNOMED: 68076620 (11) Bipolar 1 disorder ICD Codes: F31.9 - Bipolar disorder, unspecified SNOMED: 900725345 (12) Anticoagulant long-term use ICD Codes: Z79.01 - intermediate (current) use of anticoagulants SNOMED: 703820939 (13) Recurrent staph infection possible line sepsis. Assessment/Plan: Optimize pulmonary hygiene/mobilize as tolerated Completed Remdesivir IV Abx: Vanco IV F/U Cx's Monitor volumes and renal function DVT Px: Coumadin Monitor blood glucose level closely. FULL Code Tolerated Tube feeding @ 50 cc/hr. S/P endoscopy/PEG placement 02/06/21 S/P Trach 02/06/21 Discharge planning to subacute Unit.. Geovanny Bradley MD Feb 08, 2021 16:00
--- NOTE | 2021-02-08 16:28 | General Progress Note ---
Subjective ROS Limited/Unobtainable: No Allergies: Coded Allergies: No Known Allergies (Unverified , 01/02/21) Objective Last 24 Hour Vital Signs Date Time Temp Pulse Resp B/P (MAP) Pulse Ox O2 Delivery O2 Flow Rate FiO2 02/08/21 14:03 90 22 96 40 88 20 02/08/21 13:28 98 24 40 02/08/21 13:20 40 02/08/21 12:20 40 02/08/21 12:00 114 20 113/74 (87) 95 02/08/21 12:00 Mechanical Ventilator 02/08/21 12:00 95 02/08/21 12:00 40 02/08/21 12:00 40 02/08/21 11:43 96 02/08/21 11:43 97 25 40 02/08/21 10:58 104 24 40 02/08/21 10:00 91 20 112/72 (85) 95 02/08/21 09:00 103 26 99/55 (70) 92 02/08/21 08:00 Mechanical Ventilator 02/08/21 08:00 99.7 108 23 104/62 (76) 95 02/08/21 08:00 40 02/08/21 08:00 88 02/08/21 07:50 101 22 95 40 95 22 02/08/21 07:00 111 24 109/68 (82) 94 02/08/21 06:30 102 22 02/08/21 06:30 93 21 113/79 (90) 94 02/08/21 06:00 99 23 115/70 (85) 93 02/08/21 05:30 91 21 114/76 (89) 94 02/08/21 05:16 82 22 40 02/08/21 05:00 65 22 133/74 (93) 95 02/08/21 04:00 Mechanical Ventilator 02/08/21 04:00 101 02/08/21 04:00 100 22 107/70 (82) 91 02/08/21 04:00 40 02/08/21 03:30 108 23 114/64 (81) 93 02/08/21 03:14 99 22 40 02/08/21 03:00 103 21 106/68 (81) 96 02/08/21 02:00 89 16 124/80 (95) 96 02/08/21 01:30 81 22 124/79 (94) 96 02/08/21 01:02 96 23 99 Mechanical Ventilator 40 96 22 40 02/08/21 01:00 89 22 123/76 (92) 94 02/08/21 00:30 101 24 110/68 (82) 96 02/08/21 00:00 40 02/08/21 00:00 100 23 119/78 (92) 96 02/08/21 00:00 102 02/08/21 00:00 Mechanical Ventilator 02/07/21 23:00 93 22 114/74 (87) 97 02/07/21 22:54 94 24 40 02/07/21 22:30 92 21 127/73 (91) 97 02/07/21 22:00 110 24 100/61 (74) 95 02/07/21 21:31 100 24 40 02/07/21 21:30 107 17 100/58 (72) 95 02/07/21 21:00 109 0 96/58 (71) 93 02/07/21 20:30 92 14 109/72 (84) 97 02/07/21 20:00 Mechanical Ventilator 02/07/21 20:00 89 02/07/21 20:00 40 02/07/21 20:00 114 14 102/57 (72) 96 02/07/21 19:10 101 22 99 Mechanical Ventilator 40 103 22 40 02/07/21 19:00 101 16 93/60 (71) 96 02/07/21 18:00 108 11 100/57 (71) 99 02/07/21 17:00 101 21 99/63 (75) 95 Intake and Output 02/07/21 02/08/21 19:00 07:00 Intake Total 900.000 ml 730 ml Output Total 405 ml 525 ml Balance 495.000 ml 205 ml Free Water 50 ml 10 ml IV Total 250.000 ml Tube Feeding 600 ml 720 ml Output Urine Total 405 ml 525 ml Laboratory Tests 02/08/21 00:22: POC Whole Blood Glucose 127H 02/08/21 03:15: White Blood Count 12.2H, Red Blood Count 3.82L, Hemoglobin 10.5L, Hematocrit 34.4L, Mean Corpuscular Volume 90, Mean Corpuscular Hemoglobin 27.5, Mean Corpuscular Hemoglobin Concent 30.5L, Red Cell Distribution Width 15.8H, Platelet Count 417, Mean Platelet Volume 7.1, Neutrophils (%) (Auto) 74.4, L ymphocytes (%) (Auto) 16.9L, Monocytes (%) (Auto) 7.8, Eosinophils (%) (Auto) 0.4, Basophils (%) (Auto) 0.6, Prothrombin Time 13.3H, Prothromb Time International Ratio 1.2H, Sodium Level 139, Potassium Level 3.8, Chloride Level 102, Carbon Dioxide Level 27, Anion Gap 10, Blood Urea Nitrogen 7, Creatinine 0.7, Estimat Glomerular Filtration Rate > 60, Glucose Level 112H, Calcium Level 9.0, Phosphorus Level 3.9, Magnesium Level 1.9, Total Bilirubin 0.3, Aspartate Amino Transf (AST/SGOT) 11L, Alanine Aminotransferase (ALT/SGPT) 16, Alkaline Phosphatase 99, Total Protein 7.1, Albumin 1.9L, Globulin 5.2, Albumin/Globulin Ratio 0.4L Height (Feet): 5 Height (Inches): 5.00 Weight (Pounds): 223 General Appearance: no apparent distress EENT: normal ENT inspection Neck: supple Cardiovascular: normal rate Respiratory/Chest: decreased breath sounds Abdomen: hypoactive bowel sounds Extremities: non-tender Assessment/Plan Problem List: (1) Schizophrenia, paranoid type ICD Codes: F20.0 - Paranoid schizophrenia SNOMED: 57090157 (2) DMII (diabetes mellitus, type 2) ICD Codes: E11.9 - Type 2 diabetes mellitus without complications SNOMED: 98379710 (3) Obesity ICD Codes: E66.9 - Obesity, unspecified SNOMED: 863648445, 243625592 (4) COPD (chronic obstructive pulmonary disease) ICD Codes: J44.9 - Chronic obstructive pulmonary disease, unspecified SNOMED: 44197095 (5) Essential hypertension ICD Codes: I10 - Essential (primary) hypertension SNOMED: 34145470 Status: unchanged Assessment/Plan: s/p trach s/p GT placement GTF colace and miralax pending placement Carlos Malhotra MD Feb 08, 2021 16:28
[2021-02-08] MEDS ORDERED: Warfarin Sodium 5mg ORAL SCH (17:00)
[2021-02-08] MEDS: Miralax 17gm pkt NG SCH (21:00)
[2021-02-09] VITALS: BP 108/68
[2021-02-09] MEDS: Albuterol/Ipratropium 3ml neb HHN SCH ×4 (01:02→19:46)
[2021-02-09] MEDS: Acetylcysteine 20% Soln 4ml HHN SCH ×4 (01:02→19:46)
[2021-02-09 04:00] VITALS: BP 111/63
[2021-02-09 04:42] LABS: INR 1.2 (0.9-1.1)
--- NOTE | 2021-02-09 05:05 | Pulmonology Progress Note ---
Subjective ROS Limited/Unobtainable: Yes Allergies: Coded Allergies: No Known Allergies (Unverified , 01/02/21) Objective Last 24 Hour Vital Signs Date Time Temp Pulse Resp B/P (MAP) Pulse Ox O2 Delivery O2 Flow Rate FiO2 02/09/21 03:15 100 22 40 02/09/21 01:05 119 24 100 02/09/21 00:00 98.0 106 28 108/68 (81) 99 02/09/21 00:00 40 02/09/21 00:00 Mechanical Ventilator 02/09/21 00:00 92 02/08/21 23:15 103 33 40 02/08/21 20:00 40 02/08/21 20:00 98.1 96 23 119/79 (92) 98 02/08/21 20:00 95 02/08/21 20:00 Mechanical Ventilator 02/08/21 19:10 98 22 100 40 98 22 02/08/21 16:54 93 22 40 02/08/21 16:00 99.0 100 20 108/75 (86) 95 02/08/21 16:00 100 02/08/21 16:00 Mechanical Ventilator 02/08/21 14:03 90 22 96 40 88 20 02/08/21 13:28 98 24 40 02/08/21 13:20 40 02/08/21 12:20 40 02/08/21 12:00 114 20 113/74 (87) 95 02/08/21 12:00 Mechanical Ventilator 02/08/21 12:00 95 02/08/21 12:00 40 02/08/21 12:00 40 02/08/21 11:43 96 02/08/21 11:43 97 25 40 02/08/21 10:58 104 24 40 02/08/21 10:00 91 20 112/72 (85) 95 02/08/21 09:00 103 26 99/55 (70) 92 02/08/21 08:00 Mechanical Ventilator 02/08/21 08:00 99.7 108 23 104/62 (76) 95 02/08/21 08:00 40 02/08/21 08:00 88 02/08/21 07:50 101 22 95 40 95 22 02/08/21 07:00 111 24 109/68 (82) 94 02/08/21 06:30 102 22 02/08/21 06:30 93 21 113/79 (90) 94 02/08/21 06:00 99 23 115/70 (85) 93 02/08/21 05:30 91 21 114/76 (89) 94 02/08/21 05:16 82 22 40 Intake and Output 02/08/21 02/09/21 19:00 07:00 Intake Total 1095.000 ml 360 ml Output Total 720 ml 150 ml Balance 375.000 ml 210 ml Free Water 100 ml IV Total 275.000 ml Tube Feeding 720 ml 360 ml Output Urine Total 720 ml 150 ml # Bowel Movements 1 Laboratory Tests 02/09/21 03:50: Prothrombin Time 13.4H, Prothromb Time International Ratio 1.2H Current Medications Medications (Trade) Dose Ordered Sig/Johnny Route PRN Reason Start Time Stop Time Status Last Admin Dose Admin Acetylcysteine (Mucomyst) 200 mg Q6HRT N 02/03/21 13:00 05/04/21 12:59 02/09/21 01:02 Albuterol/ Ipratropium (Albuterol/ Ipratropium) 3 ml Q6HRT N 02/08/21 13:45 02/13/21 13:44 02/09/21 01:02 Dextrose (Dextrose 50%) 25 ml Q30M PRN IV Hypoglycemia 01/06/21 23:45 04/06/21 23:44 Dextrose (Dextrose 50%) 50 ml Q30M PRN IV Hypoglycemia 01/06/21 23:45 04/06/21 23:44 Docusate Sodium (Colace) 100 mg TWICE A DAY NG 02/07/21 18:00 03/09/21 17:59 02/08/21 08:16 Hydromorphone HCl (Dilaudid) 0.5 mg Q2H PRN IVP Severe Pain (Pain Scale 7-10) 02/06/21 13:42 02/13/21 13:41 02/08/21 13:12 Insulin Aspart (NovoLOG) EVERY 6 HOURS SUBQ 01/09/21 12:00 04/04/21 16:29 02/08/21 23:15 Lansoprazole (Prevacid) 30 mg DAILY GT 01/24/21 09:00 02/15/21 08:59 02/08/21 08:16 Lorazepam (Ativan 2mg/ml 1ml) 0.5 mg Q6H PRN IV For Seizures 02/05/21 03:15 02/12/21 03:14 02/05/21 03:55 Lorazepam (Ativan 2mg/ml 1ml) 1 mg Q2H PRN IV For Anxiety 02/06/21 08:15 02/13/21 08:14 02/06/21 11:58 Metoclopramide HCl (Reglan) 5 mg Q6H PRN IVP Nausea & Vomiting 02/06/21 00:15 03/08/21 00:14 Midodrine (Pro-Amatine) 10 mg Q8HR ORAL 01/20/21 14:00 04/20/21 13:59 02/08/21 21:03 Ondansetron HCl (Zofran) 4 mg Q6H PRN IVP Nausea & Vomiting 02/06/21 00:15 03/08/21 00:14 Polyethylene Glycol (Miralax) 17 gm BEDTIME NG 02/07/21 21:00 03/09/21 20:59 02/07/21 20:30 Potassium Chloride (K-Dur) 20 meq TWICE A DAY NG 01/20/21 13:00 04/20/21 12:59 02/08/21 17:40 Quetiapine Fumarate (SEROqueL) 100 mg Q12HR ORAL 01/20/21 15:00 03/06/21 14:59 02/08/21 21:03 Valproic Acid (Depakene) 500 mg Q12HR GT 01/22/21 21:00 02/21/21 20:59 02/08/21 21:02 [facility] 1 ea DAILY PRN MISC Per rx protocol 01/25/21 08:15 02/24/21 08:14 Vancomycin HCl 1 gm/Sodium Chloride 275 ml @ 183.708 mls/hr Q8H IVPB 02/07/21 20:00 02/12/21 19:59 02/08/21 21:02 Warfarin Sodium (Coumadin per pharmacy) 1 ea DAILY PRN MISC . 02/07/21 17:00 03/09/21 16:59 Assessment/Plan Assessment/Plan Pulmonary Progress Note Seen on 02/07/2021 HPI Patient is a 60 man with prior h/o COPD, CPS/bipolar DO, prior DVT/PE on AC, NHR, DM2, HTN and hydrocephalus,admitted with severe Covid19 Pneumonia. ID following, on AB, s/p REM + SM, CXR with bilateral infiltrates/trach, stable Fevers settled,has incr WCC - AB/ID Srable in ICU on Ventilator PEEP at 5,maintaining O2 sats, FIO2 - 40%, s/p Tracheostomy, sp G tube, has PICC line, fentanyl gtt dc Allergies: Coded Allergies: No Known Allergies (Unverified , 01/02/21) PMH: COPD, CPS/bipolar DO, prior DVT/PE on AC, DM2, HTN and hydrocephalus Physical Exam Deferred Covid19 Vital Signs noted Laboratory Tests noted Imaging noted Height (Feet): 5 Height (Inches): 5.00 Weight (Pounds): 233 Medications Medications noted Assessment/Plan Problem List: (1) Pneumonia due to COVID-19 virus ICD Codes: U07.1 - COVID-19; J12.82 - Pneumonia due to coronavirus disease 2019 SNOMED: 075898902589612535 (2) Acute hypercapnic respiratory failure ICD Codes: J96.02 - Acute respiratory failure with hypercapnia SNOMED: 754572946 (3) Respiratory failure with hypoxia ICD Codes: J96.91 - Respiratory failure, unspecified with hypoxia SNOMED: 48726768857940490 Qualifiers: Qualified Codes: J96.01 - Acute respiratory failure with hypoxia (4) COPD (chronic obstructive pulmonary disease) ICD Codes: J44.9 - Chronic obstructive pulmonary disease, unspecified SNOMED: 77844795 (5) History of deep venous thrombosis or pulmonary embolus SNOMED: 872808213 (6) Obesity ICD Codes: E66.9 - Obesity, unspecified SNOMED: 297677660, 810235690 (7) Essential hypertension ICD Codes: I10 - Essential (primary) hypertension SNOMED: 02289616 (8) Diabetes mellitus type 2 in obese ICD Codes: E11.69 - Type 2 diabetes mellitus with other specified complication; E66.9 - Obesity, unspecified SNOMED: 88277387 (9) History of hydrocephalus ICD Codes: Z86.69 - Personal history of other diseases of the nervous system and sense organs SNOMED: 529006411 (10) Schizophrenia ICD Codes: F20.9 - Schizophrenia, unspecified SNOMED: 22957761 (11) Bipolar 1 disorder ICD Codes: F31.9 - Bipolar disorder, unspecified SNOMED: 698722947 (12) Anticoagulant long-term use ICD Codes: Z79.01 - terminal operator (current) use of anticoagulants SNOMED: 313734444 Assessment/Plan: ACVC - adjust PRN Adjust FiO2 to keep SaO2 > 92% Wean as tolerated Pressors PRN Sedation PRN HFA's ID recs REM completed per ID AB perID Weaned off SM Abx per ID F/U Cx's Monitor volumes and renal function,diuresis per Renal DVT Px: Coumadin TF when not proned FC GT Trach SDU Seen on 02/07/2021 Anuel Luis MD Feb 09, 2021 05:05
[2021-02-09] MEDS: Midodrine 10mg tab ORAL SCH ×3 (05:20→21:40)
[2021-02-09] MEDS: Vancomycin 1 GM in NS 275 ML IVPB SCH ×3 (05:20→20:00)
[2021-02-09] MEDS: NovoLOG Insulin Flexpen SUBQ SCH ×3 (05:21→17:47)
[2021-02-09 08:00] VITALS: BP 115/78
--- NOTE | 2021-02-09 08:18 | Infectious Diseases Prog Note ---
Assessment/Plan 60yo M with: Fever to 101, new 02/09 Increased secretions, possible VAP 02/09 UA 60/80 WBC, UCx p BCx ordered Resp cx ordered CXR: There is been interval worsening of moderate diffuse alveolar infiltrate throughout the left lung as well as worsening mild right lower lobe infiltrate consistent with bilateral pneumonia. Septic Shock Recurrent Gram positive bacteremia r/o line infection -01/25 Bcx 2/ sets GPC clusters Staph epi bacteremia ? infected fem line , Sp removal 02/01 01/10 BCx / +Staph epi 01/13 BCx Neg 01/25 BCx CoNS /2 01/28 BCx - CoNS 01/0101/31/21 BCx - NGTD 02/02/21 BCx - 12/01 GPC 02/04/21 BCx - NGTD COVID pna, severe Acute hypoxia 01/01 COVID pna >> intubated 01/06- 50% FIo2 Febrile to 103; imporving Normal WBC Elevated AST 51 01/01 Tested positive for COVID at [facility] 01/02 COVID PCR positive 01/02 BCx NTD CXR: Multifocal pna MRSA nares neg 01/06 Intubated in ICU CXR: 1. Appropriately positioned endotracheal and enteric tubes. 2. Stable bilateral airspace disease. 01/07 Resp cx +Yasmine albicans (colonizer) 01/11 CXR: Interval improved bilateral lung aeration. Bibasilar infiltrates/atelectasis. Cr 1.1 PICC placement HIV screen neg PMH: DM2 COPD HTN SNF resident PICC placed 01/30/21 Plan: Cont Vancomycin IV #18 Start cefepime given fever Given fever: Labs today BCx UA/UCx CXR, reviewed Resp cx 02/01/21 SP Zosyn #7 01/22/21 steroids #19, on methylpred 20 IV q12 - defer course to Pul m/Primary, now tapering 01/19/21 SP Zosyn #10 01/14 SP vanco IV #1 01/09 SP CTX #7 01/07 SP azithro #5, RDV #5 This institution does not have access to convalescent plasma and only recommended to give in setting of clinical trial Monitor temp curve, hemodynamics Monitor resp status D/w RN Thank you for this consult. [facility] will continue to follow. Subjective Allergies: Coded Allergies: No Known Allergies (Unverified , 01/02/21) Tmax 101 NAD on vent 40% PEEP 5 WBC stable at 12 Ongoing fevers today Lots of secretions HDS Objective Last 24 Hour Vital Signs Date Time Temp Pulse Resp B/P (MAP) Pulse Ox O2 Delivery O2 Flow Rate FiO2 02/09/21 08:00 101.0 98 24 115/78 (90) 95 02/09/21 08:00 98 02/09/21 06:30 106 26 02/09/21 04:00 96 02/09/21 04:00 40 02/09/21 04:00 99.5 114 27 111/63 (79) 96 02/09/21 04:00 Mechanical Ventilator 02/09/21 03:15 100 22 40 02/09/21 01:05 119 24 100 02/09/21 00:00 98.0 106 28 108/68 (81) 99 02/09/21 00:00 40 02/09/21 00:00 Mechanical Ventilator 02/09/21 00:00 92 02/08/21 23:15 103 33 40 02/08/21 20:00 40 02/08/21 20:00 98.1 96 23 119/79 (92) 98 02/08/21 20:00 95 02/08/21 20:00 Mechanical Ventilator 02/08/21 19:10 98 22 100 40 98 22 02/08/21 16:54 93 22 40 02/08/21 16:00 99.0 100 20 108/75 (86) 95 02/08/21 16:00 100 02/08/21 16:00 Mechanical Ventilator 02/08/21 14:03 90 22 96 40 88 20 02/08/21 13:28 98 24 40 02/08/21 13:20 40 02/08/21 12:20 40 02/08/21 12:00 114 20 113/74 (87) 95 02/08/21 12:00 Mechanical Ventilator 02/08/21 12:00 95 02/08/21 12:00 40 02/08/21 12:00 40 02/08/21 11:43 96 02/08/21 11:43 97 25 40 02/08/21 10:58 104 24 40 02/08/21 10:00 91 20 112/72 (85) 95 02/08/21 09:00 103 26 99/55 (70) 92 Height (Feet): 5 Height (Inches): 5.00 Weight (Pounds): 223 Gen: NAD HEENT: NCAT, trach, secretions from OP dripping down face CV: RRR Pulm: BL chest rise on vent Ext: No c/c/e. S/p RLE AKA Skin: No visible rashes, multiple skin wounds w/ dressings c/d/i Neuro: Sleeping, not interactive Laboratory Tests Test 02/09/21 03:50 Prothrombin Time 13.4 SEC (9.30-11.50) H Prothromb Time International Ratio 1.2 (0.9-1.1) H Current Medications Medications (Trade) Dose Ordered Sig/Johnny Route PRN Reason Start Time Stop Time Status Last Admin Dose Admin Acetaminophen (Tylenol) 650 mg Q6HR PRN GT Temp >100.5 02/09/21 08:15 03/11/21 08:14 UNV Acetylcysteine (Mucomyst) 200 mg Q6HRT N 02/03/21 13:00 05/04/21 12:59 02/09/21 07:55 Albuterol/ Ipratropium (Albuterol/ Ipratropium) 3 ml Q6HRT HHN 02/08/21 13:45 02/13/21 13:44 02/09/21 07:55 Dextrose (Dextrose 50%) 25 ml Q30M PRN IV Hypoglycemia 01/06/21 23:45 04/06/21 23:44 Dextrose (Dextrose 50%) 50 ml Q30M PRN IV Hypoglycemia 01/06/21 23:45 04/06/21 23:44 Docusate Sodium (Colace) 100 mg TWICE A DAY NG 02/07/21 18:00 03/09/21 17:59 02/08/21 08:16 Hydromorphone HCl (Dilaudid) 0.5 mg Q2H PRN IVP Severe Pain (Pain Scale 7-10) 02/06/21 13:42 02/13/21 13:41 02/08/21 13:12 Insulin Aspart (NovoLOG) EVERY 6 HOURS SUBQ 01/09/21 12:00 04/04/21 16:29 02/08/21 23:15 Lansoprazole (Prevacid) 30 mg DAILY GT 01/24/21 09:00 02/15/21 08:59 02/08/21 08:16 Lorazepam (Ativan 2mg/ml 1ml) 0.5 mg Q6H PRN IV For Seizures 02/05/21 03:15 02/12/21 03:14 02/05/21 03:55 Lorazepam (Ativan 2mg/ml 1ml) 1 mg Q2H PRN IV For Anxiety 02/06/21 08:15 02/13/21 08:14 02/06/21 11:58 Metoclopramide HCl (Reglan) 5 mg Q6H PRN IVP Nausea & Vomiting 02/06/21 00:15 03/08/21 00:14 Midodrine (Pro-Amatine) 10 mg Q8HR ORAL 01/20/21 14:00 04/20/21 13:59 02/09/21 05:20 Ondansetron HCl (Zofran) 4 mg Q6H PRN IVP Nausea & Vomiting 02/06/21 00:15 03/08/21 00:14 Polyethylene Glycol (Miralax) 17 gm BEDTIME NG 02/07/21 21:00 03/09/21 20:59 02/07/21 20:30 Potassium Chloride (K-Dur) 20 meq TWICE A DAY NG 01/20/21 13:00 04/20/21 12:59 02/08/21 17:40 Quetiapine Fumarate (SEROqueL) 100 mg Q12HR ORAL 01/20/21 15:00 03/06/21 14:59 02/08/21 21:03 Valproic Acid (Depakene) 500 mg Q12HR GT 01/22/21 21:00 02/21/21 20:59 02/08/21 21:02 [facility] 1 ea DAILY PRN MISC Per rx protocol 01/25/21 08:15 02/24/21 08:14 Vancomycin HCl 1 gm/Sodium Chloride 275 ml @ 183.708 mls/hr Q8H IVPB 02/07/21 20:00 02/12/21 19:59 02/09/21 05:20 Warfarin Sodium (Coumadin per pharmacy) 1 ea DAILY PRN MISC . 02/07/21 17:00 03/09/21 16:59 Warfarin Sodium (Coumadin) 7.5 mg COUMADIN ORAL 02/09/21 17:00 02/09/21 18:00 Renetta Gomez M.D. Feb 09, 2021 08:18
[2021-02-09] MEDS: Valproic Acid 250mg/5ml Liquid GT SCH ×2 (08:30→20:41)
[2021-02-09] MEDS: Docusate 100mg/10ml Liq NG SCH ×2 (08:30→17:42)
[2021-02-09 09:23] LABS: BASOPHILS % (AUTO) 1.6 % (0.0-2.0); EOSINOPHILS % (AUTO) 0.8 % (0.0-3.0); HEMOGLOBIN 9.7 G/DL (14.2-18.0); LYMPHOCYTES % (AUTO) 17.4 % (20.0-45.0); MEAN CORPUSCULAR VOLUME 89 FL (80-99); MONOCYTES % (AUTO) 8.8 % (1.0-10.0); NEUTROPHILS % (AUTO) 71.4 % (45.0-75.0); PLATELET COUNT 509 K/UL (150-450); RED BLOOD COUNT 3.47 M/UL (4.70-6.10); RED CELL DISTRIBUTION WIDTH 16.1 % (11.6-14.8); WHITE BLOOD COUNT 12.9 K/UL (4.8-10.8)
[2021-02-09] MEDS: Acetaminophen 650mg/20.3ml GT PRN (09:27)
[2021-02-09 09:44] LABS: ALANINE AMINOTRANSFERASE 24 U/L (12-78); ALBUMIN/GLOBULIN RATIO 0.4 (1.0-2.7); ALKALINE PHOSPHATASE 106 U/L (46-116); ANION GAP 9 mmol/L (5-15); ASPARTATE AMINO TRANSFERASE 26 U/L (15-37); BILIRUBIN,TOTAL 0.3 MG/DL (0.2-1.0); BLOOD UREA NITROGEN 7 mg/dL (7-18); CALCIUM 9.1 MG/DL (8.5-10.1); CARBON DIOXIDE 27 MMOL/L (21-32); CHLORIDE 102 MMOL/L (98-107); CREATININE 0.7 MG/DL (0.55-1.30); SODIUM 138 MMOL/L (136-145)
--- NOTE | 2021-02-09 09:45 | Diagnostic Imaging Report ---
EXAM: XR Chest, 1 View CLINICAL HISTORY: INFECT TECHNIQUE: Frontal view of the chest. COMPARISON: 02/06/21 FINDINGS: Lungs: There is been interval worsening of moderate diffuse alveolar infiltrate throughout the left lung as well as worsening mild right lower lobe infiltrate consistent with bilateral pneumonia. Pleural space: Unremarkable. No pneumothorax. Heart: Unremarkable. No cardiomegaly. Mediastinum: Unremarkable. Bones/joints: Unremarkable. Tubes, lines and devices: There is a tracheostomy tube in good position. IMPRESSION: There is been interval worsening of moderate diffuse alveolar infiltrate throughout the left lung as well as worsening mild right lower lobe infiltrate consistent with bilateral pneumonia.
[2021-02-09 09:52] LABS: APPEARANCE,URINE CLOUDY; BILIRUBIN, URINE NEGATIVE (NEGATIVE); GLUCOSE, URINE (UA) NEGATIVE (NEGATIVE); KETONES,URINE NEGATIVE (NEGATIVE); LEUKOCYTE ESTERASE ,URINE 3+ (NEGATIVE); NITRITE,URINE NEGATIVE (NEGATIVE); PH,URINE 9 (4.5-8.0); PROTEIN,URINE 2+ (NEGATIVE); UROBILINOGEN,URINE NORMAL MG/DL (0.0-1.0)
[2021-02-09 09:54] LABS: COLOR,URINE PALE YELLOW
[2021-02-09] MEDS: Cefepime HCl 1 GM in D5W 55 ML IVPB SCH ×3 (10:30→21:40)
--- NOTE | 2021-02-09 11:32 | Surgery Progress Note ---
Surgery Progress Note Subjective Procedure Performed tracheostomy Additional Comments no acute events labs noted exam stable Objective Last 24 Hour Vital Signs Date Time Temp Pulse Resp B/P (MAP) Pulse Ox O2 Delivery O2 Flow Rate FiO2 02/09/21 10:36 99.1 02/09/21 08:10 91 22 100 Mechanical Ventilator 40 100 22 40 02/09/21 08:00 101.0 98 24 115/78 (90) 95 02/09/21 08:00 98 02/09/21 08:00 40 02/09/21 08:00 Mechanical Ventilator 02/09/21 06:30 106 26 02/09/21 04:00 96 02/09/21 04:00 40 02/09/21 04:00 99.5 114 27 111/63 (79) 96 02/09/21 04:00 Mechanical Ventilator 02/09/21 03:15 100 22 40 02/09/21 01:05 119 24 100 02/09/21 00:00 98.0 106 28 108/68 (81) 99 02/09/21 00:00 40 02/09/21 00:00 Mechanical Ventilator 02/09/21 00:00 92 02/08/21 23:15 103 33 40 02/08/21 20:00 40 02/08/21 20:00 98.1 96 23 119/79 (92) 98 02/08/21 20:00 95 02/08/21 20:00 Mechanical Ventilator 02/08/21 19:10 98 22 100 40 98 22 02/08/21 16:54 93 22 40 02/08/21 16:00 99.0 100 20 108/75 (86) 95 02/08/21 16:00 100 02/08/21 16:00 Mechanical Ventilator 02/08/21 14:03 90 22 96 40 88 20 02/08/21 13:28 98 24 40 02/08/21 13:20 40 02/08/21 12:20 40 02/08/21 12:00 114 20 113/74 (87) 95 02/08/21 12:00 Mechanical Ventilator 02/08/21 12:00 95 02/08/21 12:00 40 02/08/21 12:00 40 02/08/21 11:43 96 02/08/21 11:43 97 25 40 I&O Intake and Output 02/08/21 02/09/21 19:00 07:00 Intake Total 1095.000 ml 360 ml Output Total 720 ml 950 ml Balance 375.000 ml -590 ml Free Water 100 ml IV Total 275.000 ml Tube Feeding 720 ml 360 ml Output Urine Total 720 ml 950 ml # Bowel Movements 1 1 Dressing: saturated Cardiovascular: RSR Respiratory: decreased breath sounds Abdomen: soft, flat, non-tender, present bowel sounds Extremities: no edema, no tenderness, no cyanosis Laboratory Tests Test 02/09/21 03:50 02/09/21 08:45 02/09/21 08:51 Prothrombin Time 13.4 SEC (9.30-11.50) H Prothromb Time International Ratio 1.2 (0.9-1.1) H White Blood Count 12.9 K/UL (4.8-10.8) H Red Blood Count 3.47 M/UL (4.70-6.10) L Hemoglobin 9.7 G/DL (14.2-18.0) L Hematocrit 31.0 % (42.0-52.0) L Mean Corpuscular Volume 89 FL (80-99) Mean Corpuscular Hemoglobin 28.1 PG (27.0-31.0) Mean Corpuscular Hemoglobin Concent 31.4 G/DL (32.0-36.0) L Red Cell Distribution Width 16.1 % (11.6-14.8) H Platelet Count 509 K/UL (150-450) H Mean Platelet Volume 7.8 FL (6.5-10.1) Neutrophils (%) (Auto) 71.4 % (45.0-75.0) Lymphocytes (%) (Auto) 17.4 % (20.0-45.0) L Monocytes (%) (Auto) 8.8 % (1.0-10.0) Eosinophils (%) (Auto) 0.8 % (0.0-3.0) Basophils (%) (Auto) 1.6 % (0.0-2.0) Sodium Level 138 MMOL/L (136-145) Potassium Level 4.0 MMOL/L (3.5-5.1) Chloride Level 102 MMOL/L (98-107) Carbon Dioxide Level 27 MMOL/L (21-32) Anion Gap 9 mmol/L (5-15) Blood Urea Nitrogen 7 mg/dL (7-18) Creatinine 0.7 MG/DL (0.55-1.30) Estimat Glomerular Filtration Rate > 60 mL/min (>60) Glucose Level 148 MG/DL (74-106) H Calcium Level 9.1 MG/DL (8.5-10.1) Total Bilirubin 0.3 MG/DL (0.2-1.0) Aspartate Amino Transf (AST/SGOT) 26 U/L (15-37) Alanine Aminotransferase (ALT/SGPT) 24 U/L (12-78) Alkaline Phosphatase 106 U/L (46-116) Total Protein 7.2 G/DL (6.4-8.2) Albumin 2.0 G/DL (3.4-5.0) L Globulin 5.2 g/dL Albumin/Globulin Ratio 0.4 (1.0-2.7) L Urine Color Pale yellow Urine Appearance Cloudy Urine pH 9 (4.5-8.0) Urine Specific [place] 1.015 (1.005-1.035) Urine Protein 2+ (NEGATIVE) H Urine Glucose (UA) Negative (NEGATIVE) Urine Ketones Negative (NEGATIVE) Urine Blood 4+ (NEGATIVE) H Urine Nitrite Negative (NEGATIVE) Urine Bilirubin Negative (NEGATIVE) Urine Urobilinogen Normal MG/DL (0.0-1.0) Urine Leukocyte Esterase 3+ (NEGATIVE) H Urine RBC 0-2 /HPF (0 - 0) H Urine WBC 60-80 /HPF (0 - 0) H Urine Squamous Epithelial Cells Occasional /LPF Urine Bacteria Few /HPF (NONE) Urine Yeast Many /HPF (NONE) H Plan Problems: (1) COPD (chronic obstructive pulmonary disease) (2) Essential hypertension (3) Schizophrenia (4) Obesity (5) Diabetes mellitus type 2 in obese (6) History of hydrocephalus (7) Anticoagulant long-term use (8) Bipolar 1 disorder (9) History of deep venous thrombosis or pulmonary embolus (10) Acute hypercapnic respiratory failure (11) Sepsis Assessment & Plan: 60-year-old male Covid positive respiratory insufficiency and severe decline being prone intubated on vent support labs noted septic ill- appearing has been developing wound around the face from ET tube.Receiv ed report from RT pt is being proned and was observed to have developed a blood blister under vent tape on L cheek and L earlobe. Skin assessed and pt was observed to have a blood blister that is 50% de-capped,50% intact. Intact Blood Blister noted to L earlobe. Skin Barrier applied to affected areas. Optifoam Thin foam placed between vent anchor and pt's skin. Optifoam thin placed to R cheek under Vent tape, on Bridge of nose and both earlobes. Given patient's critical status current care plan and findings nutritional optimization is strongly encouraged Covid nutrition plan initiated. All Covid precautions are being taken. Imaging reviewed. Will follow with care plan. Thank you [facility] participation care De.Plan: Maintain Optifoam Thin foam to R and L cheeks,Bridge of Nose and Both Ears . Change every 7 days and prn.( May request Optifoam Thin from RT dept). APM/PEPE Mattress overlay DAILY ESTIMATED NEEDS: Needs based on Critical care, pulmonary, obese 73.7kg abw 22-28 kcals/kg 2993-5049 total kcals 1.2-2 g protein/kg 88-147 g total protein 25-30 mL/kg 2443-3400 total fluid mLs NUTRITION DIAGNOSIS: Altered nutrition related lab values r/t steroidal meds, clinical status as evidenced by febrile on adm (102.5), elevated BG (270 287) on solumedrol, elevated lipid panel (Triglycerides 333, Chol 370, LDL 150). CURRENT TF:Vital @30ml/hr, now Nepro @30 ENTERAL NUTRITION RECOMMENDATIONS: NEPRO @30ml/hr while supine to provide x8 hrs feeds: 360ml, 648 kcal, 29g pro, 262ml free H2O - Feed at rate best tolerated, currently not meeting est needs d/t proning and aspiration risk w/ supine feeds limited to 8hrs/day. - W/ reduced aspiration risk rec feedings to total Volume of 900ml/day of Nepro as medically able. - Monitor tolerance, position/HOB >30 degrees, hemodynamic stability and ability to increase to meet est kcal and pro needs. - With increase pressor support, rec trophic feeds of 10ml/hr for gut integrity. - When tolerating TF at goal add Prosource BID to better meet est pro needs. ADDITIONAL RECOMMENDATIONS: 1) Now intubated, TF recs above when off proning (8hrs feeds) 2) Obtain calibrated bedscale wts 3) HgA1C/ elevated BG Need for niss while on D5 4) Lytes daily; replete as needed 5) Monitor triglycerides, TF tolerance, hemodynamic stability. (12) Respiratory failure with hypoxia Assessment & Plan: cont weaning vent wean pressors not ready for trach off pressors improving HD stable plan trach soon as unable to extubate s/p trach 02/05 plan peg (13) Pneumonia due to COVID-19 virus (14) Hyperkalemia (15) DMII (diabetes mellitus, type 2) Ki Strong Feb 09, 2021 11:32
[2021-02-09 11:59] VITALS: BP 108/71
--- NOTE | 2021-02-09 14:13 | Nephrology Progress Note ---
Assessment/Plan Problem List: (1) Hyperkalemia (2) Pneumonia due to COVID-19 virus (3) Respiratory failure with hypoxia (4) Obesity (5) Schizophrenia (6) DMII (diabetes mellitus, type 2) Assessment Hyperkalemia Stable renal parameters Hyperglycemia Covid pneumonia due to COVID-19 virus Acute respiratory failure with hypoxia requiring mechanical ventilation History of COPD History of DVT, pulmonary emboli Obese Hypertension History of diabetes Psych condition, schizophrenia, bipolar disease Plan February 09: Labs reviewed. Renal parameters stable. Trach, vent, PEG, full code. February 08: Labs reviewed. Renal parameters stable. Tracheostomy to vent. Full code. Continue per consultants. February 07: Labs reviewed. Renal parameters stable. Patient is trach connected to vent has a PEG and is full code. Continue per consultants. February 06: Full code. Intubated on ventilator. Had tracheostomy. Due for PEG. Continue as is. February 05: Full code. Intubated on ventilator. Due for tracheostomy today as per RN. Renal parameters stable. Continue as is. February 04: Remains full code. Intubated on ventilator. FiO2 40%. Due for tracheostomy. Stable from renal standpoint of view. February 03: Remains intubated on ventilator. FiO2 40%. Discussed with RN. Patient is planned to have tracheostomy. Labs reviewed. Renal parameters stable. February 02: Status quo. Full code. Intubated on ventilator. FiO2 40%. Renal parameters stable. February 01: Status quo. FiO2 40%. Full code. Labs reviewed. Renal parameters stable. January 31: Status quo. FiO2 45%. Full code. Renal parameters stable. Abnormal electrolytes addressed. January 30: Status quo. Remains full code. Intubated. On ventilator. Low magnesium addressed. Continue per consultants. January 29: Status quo. Labs reviewed. Low magnesium addressed. Discussed with JOHAN Ratliff. Continue per consultants. January 28: Status quo. Labs and medication list reviewed. K-Phos supplement ordered. Continue per current treatment plan. January 27: Patient remains full code. Intubated on ventilator. FiO2 50%. Labs reviewed. Renal parameters stable. Medication list reviewed. January 26: Full code. Intubated. On ventilator. FiO2 65%. No CHEM panel drawn today. Continue per consultants. January 25: Status unchanged. Blood pressure low. Remains full code on ventilator. Continue per consultants. Medication list reviewed. INR is 3.8 today. January 24: Status quo. Intubated on ventilator and full code. Labs reviewed. Medication list reviewed. Continue per consultants. January 23: Patient on prone position. IntubatedFiO2 65%. Renal parameters stable. Continue per consultants. Date hospitalization. Possible trach?. January 22: FiO2 50%. Prone position. Labs reviewed. Stable from renal standpoint of view. Continue per consultants. January 21: Full code. Intubated on ventilator. FiO2 40%. Labs reviewed. Renal parameters stable. Continue per consultants. January 20: Status unchanged. Full code. On ventilator. Chest x-ray reviewed. IV fluid discontinued. Potassium supplement given. 1 dose of Lasix given. Albumin bolus given. Midodrine started. Will monitor renal parameters and electrolytes. Discussed with JOHAN Mohamud. January 19: Labs reviewed. Renal parameters stable. Remains full code intubated on ventilator. FiO2 50%. Continue per consultants. January 18: Full code. Intubated. On ventilator. FiO2 down to 35%. No labs drawn today. Continue to monitor renal parameters and electrolytes. January 17: Full code. Intubated on ventilator. FiO2 remains at 60%. Labs reviewed. Renal parameters stable. January 16: Full code. Intubated. Labs reviewed. Renal parameters stable. FiO2 60%. Continue per consultants. January 15: Patient remains intubated and full code. Labs reviewed. Stable renal parameters. January 14: Patient full code. Intubated on ventilator. On prone position until 5 PM. Labs reviewed. Stable from renal standpoint of view. January 13: Labs reviewed. Renal parameters stable. Continue per consultants. Patient remain full code and intubated on ventilator. January 12: Labs reviewed. Renal parameters stable. Patient remains full code. Remains intubated on ventilator and on prone position. Continue per consultants. January 11: Labs reviewed. Renal parameters stable. Continue per consultants. January 10: Labs reviewed. Renal parameters stable. Continue per consultants. Change IV to half-normal saline Kayexalate via NG tube for high potassium Monitor electrolytes and renal parameters Per orders, per consultants Subjective ROS Limited/Unobtainable: Yes Objective Objective Last 24 Hour Vital Signs Date Time Temp Pulse Resp B/P (MAP) Pulse Ox O2 Delivery O2 Flow Rate FiO2 02/09/21 12:00 40 02/09/21 11:59 101.3 104 24 108/71 (83) 94 02/09/21 11:52 99 02/09/21 10:36 99.1 02/09/21 08:10 91 22 100 Mechanical Ventilator 40 100 22 40 02/09/21 08:00 101.4 98 24 115/78 (90) 95 02/09/21 08:00 98 02/09/21 08:00 40 02/09/21 08:00 Mechanical Ventilator 02/09/21 06:30 106 26 02/09/21 04:00 96 02/09/21 04:00 40 02/09/21 04:00 99.5 114 27 111/63 (79) 96 02/09/21 04:00 Mechanical Ventilator 02/09/21 03:15 100 22 40 02/09/21 01:05 119 24 100 02/09/21 00:00 98.0 106 28 108/68 (81) 99 02/09/21 00:00 40 02/09/21 00:00 Mechanical Ventilator 02/09/21 00:00 92 02/08/21 23:15 103 33 40 02/08/21 20:00 40 02/08/21 20:00 98.1 96 23 119/79 (92) 98 02/08/21 20:00 95 02/08/21 20:00 Mechanical Ventilator 02/08/21 19:10 98 22 100 40 98 22 02/08/21 16:54 93 22 40 02/08/21 16:00 99.0 100 20 108/75 (86) 95 02/08/21 16:00 100 02/08/21 16:00 Mechanical Ventilator Intake and Output 02/08/21 02/09/21 19:00 07:00 Intake Total 1095.000 ml 360 ml Output Total 720 ml 950 ml Balance 375.000 ml -590 ml Free Water 100 ml IV Total 275.000 ml Tube Feeding 720 ml 360 ml Output Urine Total 720 ml 950 ml # Bowel Movements 1 1 Current Medications Medications (Trade) Dose Ordered Sig/Johnny Route PRN Reason Start Time Stop Time Status Last Admin Dose Admin Acetaminophen (Tylenol) 650 mg Q6H PRN GT Temp >100.5 02/09/21 08:15 03/11/21 08:14 02/09/21 09:27 Acetylcysteine (Mucomyst) 200 mg Q6HRT HHN 02/03/21 13:00 05/04/21 12:59 02/09/21 12:21 Albuterol/ Ipratropium (Albuterol/ Ipratropium) 3 ml Q6HRT HHN 02/08/21 13:45 02/13/21 13:44 02/09/21 12:21 Cefepime HCl 1 gm/ Dextrose 55 ml @ 110 mls/hr EVERY 8 HOURS IVPB 02/09/21 09:30 02/16/21 09:29 02/09/21 10:30 Dextrose (Dextrose 50%) 25 ml Q30M PRN IV Hypoglycemia 01/06/21 23:45 04/06/21 23:44 Dextrose (Dextrose 50%) 50 ml Q30M PRN IV Hypoglycemia 01/06/21 23:45 04/06/21 23:44 Docusate Sodium (Colace) 100 mg TWICE A DAY NG 02/07/21 18:00 03/09/21 17:59 02/09/21 08:30 Hydromorphone HCl (Dilaudid) 0.5 mg Q2H PRN IVP Severe Pain (Pain Scale 7-10) 02/06/21 13:42 02/13/21 13:41 02/08/21 13:12 Insulin Aspart (NovoLOG) EVERY 6 HOURS SUBQ 01/09/21 12:00 04/04/21 16:29 02/09/21 12:08 Lansoprazole (Prevacid) 30 mg DAILY GT 01/24/21 09:00 02/15/21 08:59 02/09/21 08:30 Lorazepam (Ativan 2mg/ml 1ml) 0.5 mg Q6H PRN IV For Seizures 02/05/21 03:15 02/12/21 03:14 02/05/21 03:55 Lorazepam (Ativan 2mg/ml 1ml) 1 mg Q2H PRN IV For Anxiety 02/06/21 08:15 02/13/21 08:14 02/06/21 11:58 Metoclopramide HCl (Reglan) 5 mg Q6H PRN IVP Nausea & Vomiting 02/06/21 00:15 03/08/21 00:14 Midodrine (Pro-Amatine) 10 mg Q8HR ORAL 01/20/21 14:00 04/20/21 13:59 02/09/21 13:56 Ondansetron HCl (Zofran) 4 mg Q6H PRN IVP Nausea & Vomiting 02/06/21 00:15 03/08/21 00:14 Polyethylene Glycol (Miralax) 17 gm BEDTIME NG 02/07/21 21:00 03/09/21 20:59 02/07/21 20:30 Potassium Chloride (K-Dur) 20 meq TWICE A DAY NG 01/20/21 13:00 04/20/21 12:59 02/09/21 08:30 Quetiapine Fumarate (SEROqueL) 100 mg Q12HR ORAL 01/20/21 15:00 03/06/21 14:59 02/09/21 08:30 Valproic Acid (Depakene) 500 mg Q12HR GT 01/22/21 21:00 02/21/21 20:59 02/09/21 08:30 Vancomycin HCl (Vanco pharmacy to dose) 1 ea DAILY PRN MISC Per rx protocol 01/25/21 08:15 02/24/21 08:14 Vancomycin HCl 1 gm/Sodium Chloride 275 ml @ 183.708 mls/hr Q8H IVPB 02/07/21 20:00 02/12/21 19:59 02/09/21 12:00 Warfarin Sodium (Coumadin per pharmacy) 1 ea DAILY PRN MISC . 02/07/21 17:00 03/09/21 16:59 Warfarin Sodium (Coumadin) 7.5 mg COUMADIN ORAL 02/09/21 17:00 02/09/21 18:00 Laboratory Tests 02/09/21 03:50: Prothrombin Time 13.4H, Prothromb Time International Ratio 1.2H 02/09/21 08:45: White Blood Count 12.9H, Red Blood Count 3.47L, Hemoglobin 9.7L, Hematocrit 31.0L, Mean Corpuscular Volume 89, Mean Corpuscular Hemoglobin 28.1, Mean Corpuscular Hemoglobin Concent 31.4L, Red Cell Distribution Width 16.1H, Erum telet Count 509H, Mean Platelet Volume 7.8, Neutrophils (%) (Auto) 71.4, Lymphocytes (%) (Auto) 17.4L, Monocytes (%) (Auto) 8.8, Eosinophils (%) (Auto) 0.8, Basophils (%) (Auto) 1.6, Sodium Level 138, Potassium Level 4.0, Chloride Level 102, Carbon Dioxide Level 27, Anion Gap 9, Blood Urea Nitrogen 7, Creatinine 0.7, Estimat Glomerular Filtration Rate > 60, Glucose Level 148H, Calcium Level 9.1, Total Bilirubin 0.3, Aspartate Amino Transf (AST/SGOT) 26, Al anine Aminotransferase (ALT/SGPT) 24, Alkaline Phosphatase 106, Total Protein 7.2, Albumin 2.0L, Globulin 5.2, Albumin/Globulin Ratio 0.4L 02/09/21 08:51: Urine Color Pale yellow, Urine Appearance Cloudy, Urine pH 9, Urine Specific [place] 1.015, Urine Protein 2+H, Urine Glucose (UA) Negative, Urine Ketones Negative, Urine Blood 4+H, Urine Nitrite Negative, Urine Bilirubin Negative, Urine Urobilinogen Normal, Urine Leukocyte Esterase 3+H, Urine RBC 0-2H, Urine WBC 60-80H, Urine Squamous Epithelial Cells Occasional, Urine Bacteria Few, Urine Yeast ManyH Height (Feet): 5 Height (Inches): 5.00 Weight (Pounds): 223 General Appearance: no apparent distress Cardiovascular: tachycardia Respiratory/Chest: decreased breath sounds Abdomen: distended Avi Frye MD Feb 09, 2021 14:13
[2021-02-09] MEDS ORDERED: NS 275ml ONE (15:04)
[2021-02-09 16:00] VITALS: BP 117/74
--- NOTE | 2021-02-09 16:07 | Internal Med Progress Note ---
Subjective Date of Service: Feb 09, 2021 Physician Name Vickey Brown Attending Physician Geovanny Bradley MD Current Medications Medications (Trade) Dose Ordered Sig/Johnny Route PRN Reason Start Time Stop Time Status Last Admin Dose Admin Acetaminophen (Tylenol) 650 mg Q6H PRN GT Temp >100.5 02/09/21 08:15 03/11/21 08:14 02/09/21 09:27 Acetylcysteine (Mucomyst) 200 mg Q6HRT HHN 02/03/21 13:00 05/04/21 12:59 02/09/21 12:21 Albuterol/ Ipratropium (Albuterol/ Ipratropium) 3 ml Q6HRT HHN 02/08/21 13:45 02/13/21 13:44 02/09/21 12:21 Cefepime HCl 1 gm/ Dextrose 55 ml @ 110 mls/hr EVERY 8 HOURS IVPB 02/09/21 09:30 02/16/21 09:29 02/09/21 15:35 Dextrose (Dextrose 50%) 25 ml Q30M PRN IV Hypoglycemia 01/06/21 23:45 04/06/21 23:44 Dextrose (Dextrose 50%) 50 ml Q30M PRN IV Hypoglycemia 01/06/21 23:45 04/06/21 23:44 Docusate Sodium (Colace) 100 mg TWICE A DAY NG 02/07/21 18:00 03/09/21 17:59 02/09/21 08:30 Hydromorphone HCl (Dilaudid) 0.5 mg Q2H PRN IVP Severe Pain (Pain Scale 7-10) 02/06/21 13:42 02/13/21 13:41 02/08/21 13:12 Insulin Aspart (NovoLOG) EVERY 6 HOURS SUBQ 01/09/21 12:00 04/04/21 16:29 02/09/21 12:08 Lansoprazole (Prevacid) 30 mg DAILY GT 01/24/21 09:00 02/15/21 08:59 02/09/21 08:30 Lorazepam (Ativan 2mg/ml 1ml) 0.5 mg Q6H PRN IV For Seizures 02/05/21 03:15 02/12/21 03:14 02/05/21 03:55 Lorazepam (Ativan 2mg/ml 1ml) 1 mg Q2H PRN IV For Anxiety 02/06/21 08:15 02/13/21 08:14 02/06/21 11:58 Metoclopramide HCl (Reglan) 5 mg Q6H PRN IVP Nausea & Vomiting 02/06/21 00:15 03/08/21 00:14 Midodrine (Pro-Amatine) 10 mg Q8HR ORAL 01/20/21 14:00 04/20/21 13:59 02/09/21 13:56 Ondansetron HCl (Zofran) 4 mg Q6H PRN IVP Nausea & Vomiting 02/06/21 00:15 03/08/21 00:14 Polyethylene Glycol (Miralax) 17 gm BEDTIME NG 02/07/21 21:00 03/09/21 20:59 02/07/21 20:30 Potassium Chloride (K-Dur) 20 meq TWICE A DAY NG 01/20/21 13:00 04/20/21 12:59 02/09/21 08:30 Quetiapine Fumarate (SEROqueL) 100 mg Q12HR ORAL 01/20/21 15:00 03/06/21 14:59 02/09/21 08:30 Valproic Acid (Depakene) 500 mg Q12HR GT 01/22/21 21:00 02/21/21 20:59 02/09/21 08:30 [facility] 1 [facility]a DAILY PRN MISC Per rx protocol 01/25/21 08:15 02/24/21 08:14 Vancomycin HCl 1 gm/Sodium Chloride 275 ml @ 183.708 mls/hr Q8H IVPB 02/07/21 20:00 02/12/21 19:59 02/09/21 12:00 Warfarin Sodium (Coumadin per pharmacy) 1 ea DAILY PRN MISC . 02/07/21 17:00 03/09/21 16:59 Warfarin Sodium (Coumadin) 7.5 mg COUMADIN ORAL 02/09/21 17:00 02/09/21 18:00 Allergies: Coded Allergies: No Known Allergies (Unverified , 01/02/21) Subjective 60 YO M admitted with shortness of breath. Now respiratory failure. Cover for Int Rohit-DR Bradley. Intubated and sedated. S/P Endoscopy/PEG placement 02/06/21 Objective Last Vital Signs Date Time Temp Pulse Resp B/P (MAP) Pulse Ox O2 Delivery O2 Flow Rate FiO2 02/09/21 12:00 40 02/09/21 11:59 101.3 104 24 108/71 (83) 94 02/09/21 08:10 Mechanical Ventilator 02/06/21 05:55 65.0 Laboratory Tests Test 02/09/21 03:50 02/09/21 08:45 02/09/21 08:51 Prothrombin Time 13.4 SEC (9.30-11.50) H Prothromb Time International Ratio 1.2 (0.9-1.1) H White Blood Count 12.9 K/UL (4.8-10.8) H Red Blood Count 3.47 M/UL (4.70-6.10) L Hemoglobin 9.7 G/DL (14.2-18.0) L Hematocrit 31.0 % (42.0-52.0) L Mean Corpuscular Volume 89 FL (80-99) Mean Corpuscular Hemoglobin 28.1 PG (27.0-31.0) Mean Corpuscular Hemoglobin Concent 31.4 G/DL (32.0-36.0) L Red Cell Distribution Width 16.1 % (11.6-14.8) H Platelet Count 509 K/UL (150-450) H Mean Platelet Volume 7.8 FL (6.5-10.1) Neutrophils (%) (Auto) 71.4 % (45.0-75.0) Lymphocytes (%) (Auto) 17.4 % (20.0-45.0) L Monocytes (%) (Auto) 8.8 % (1.0-10.0) Eosinophils (%) (Auto) 0.8 % (0.0-3.0) Basophils (%) (Auto) 1.6 % (0.0-2.0) Sodium Level 138 MMOL/L (136-145) Potassium Level 4.0 MMOL/L (3.5-5.1) Chloride Level 102 MMOL/L (98-107) Carbon Dioxide Level 27 MMOL/L (21-32) Anion Gap 9 mmol/L (5-15) Blood Urea Nitrogen 7 mg/dL (7-18) Creatinine 0.7 MG/DL (0.55-1.30) Estimat Glomerular Filtration Rate > 60 mL/min (>60) Glucose Level 148 MG/DL (74-106) H Calcium Level 9.1 MG/DL (8.5-10.1) Total Bilirubin 0.3 MG/DL (0.2-1.0) Aspartate Amino Transf (AST/SGOT) 26 U/L (15-37) Alanine Aminotransferase (ALT/SGPT) 24 U/L (12-78) Alkaline Phosphatase 106 U/L (46-116) Total Protein 7.2 G/DL (6.4-8.2) Albumin 2.0 G/DL (3.4-5.0) L Globulin 5.2 g/dL Albumin/Globulin Ratio 0.4 (1.0-2.7) L Urine Color Pale yellow Urine Appearance Cloudy Urine pH 9 (4.5-8.0) Urine Specific [place] 1.015 (1.005-1.035) Urine Protein 2+ (NEGATIVE) H Urine Glucose (UA) Negative (NEGATIVE) Urine Ketones Negative (NEGATIVE) Urine Blood 4+ (NEGATIVE) H Urine Nitrite Negative (NEGATIVE) Urine Bilirubin Negative (NEGATIVE) Urine Urobilinogen Normal MG/DL (0.0-1.0) Urine Leukocyte Esterase 3+ (NEGATIVE) H Urine RBC 0-2 /HPF (0 - 0) H Urine WBC 60-80 /HPF (0 - 0) H Urine Squamous Epithelial Cells Occasional /LPF Urine Bacteria Few /HPF (NONE) Urine Yeast Many /HPF (NONE) H Intake and Output 02/08/21 02/09/21 19:00 07:00 Intake Total 1095.000 ml 360 ml Output Total 720 ml 950 ml Balance 375.000 ml -590 ml Free Water 100 ml IV Total 275.000 ml Tube Feeding 720 ml 360 ml Output Urine Total 720 ml 950 ml # Bowel Movements 1 1 Objective Objective General: awake, responsive , confused. HEENT: NCAT, sclera anicteric, PERRL, EOMI. Neck: Supple, no significant jugular venous distention, Lungs: mech vent; decreased air at the bases, occasional crackles, no Wheeze. Heart: Regular rate and rhythm, normal S1/S2, no murmurs Abdomen: soft, nontender, nondistended. Normoactive bowel sound, obesity. / Rectal: Refused and deferred. Extremities: Left LE: No Cyanosis , clubbing or edema. Right LE AKA. Neuro: A&O x 2, Able to move all extremities Skin: warm, no rashes or lesions. Assessment/Plan Assessment/Plan Assessment/Plan Assessment/Plan (1) Pneumonia due to COVID-19 virus ICD Codes: U07.1 - COVID-19; J12.82 - Pneumonia due to coronavirus disease 2018 SNOMED: 475549310978903908 (2) Acute hypercapnic respiratory failure ICD Codes: J96.02 - Acute respiratory failure with hypercapnia SNOMED: 286582475 (3) Respiratory failure with hypoxia ICD Codes: J96.91 - Respiratory failure, unspecified with hypoxia SNOMED: 26884276259638207 Qualifiers: Qualified Codes: J96.01 - Acute respiratory failure with hypoxia (4) COPD (chronic obstructive pulmonary disease) ICD Codes: J44.9 - Chronic obstructive pulmonary disease, unspecified SNOMED: 21626052 (5) History of deep venous thrombosis or pulmonary embolus SNOMED: 019856657 (6) Obesity ICD Codes: E66.9 - Obesity, unspecified SNOMED: 326067177, 314974334 (7) Essential hypertension ICD Codes: I10 - Essential (primary) hypertension SNOMED: 94429950 (8) Diabetes mellitus type 2 in obese ICD Codes: E11.69 - Type 2 diabetes mellitus with other specified complication; E66.9 - Obesity, unspecified SNOMED: 63006123 (9) History of hydrocephalus ICD Codes: Z86.69 - Personal history of other diseases of the nervous system and sense organs SNOMED: 499491014 (10) Schizophrenia ICD Codes: F20.9 - Schizophrenia, unspecified SNOMED: 24684003 (11) Bipolar 1 disorder ICD Codes: F31.9 - Bipolar disorder, unspecified SNOMED: 480815488 (12) Anticoagulant long-term use ICD Codes: Z79.01 - correction (current) use of anticoagulants SNOMED: 126261932 13. Sepsis=gram pos cocci 14. thrush Assessment/Plan: Optimize pulmonary hygiene/mobilize as tolerated Non Rebreather mask>BIPAP>intubated S/P Remdesivir IV S/P Solu-Medrol 40 mg IV twice a day. Abx = vanco F/U Cx's Monitor volumes and renal function DVT Px: Coumadin DC IV fluid Start diet Monitor blood glucose level closely. On levophed, fentanyl and propofol drips Pulmonary=Dr Luis ID=Dr Gomez Psych consult=Dr Gallegos; continue seroquel continue nystatin await tracheostomy Optimize pulmonary hygiene/mobilize as tolerated Completed Remdesivir IV Abx: Vanco IV and Zosyn IV F/U Cx's Monitor volumes and renal function DVT Px: Coumadin Monitor blood glucose level closely. FULL Code Tolerated Tube feeding @ 60 cc/hr. S/P endoscopy/PEG plamement 02/06/21 S/P Trach 02/06/21 Discharge planning: [facility] sub acute Vickey Brown MD Feb 09, 2021 16:07
[2021-02-09] MEDS ORDERED: Warfarin Sod 5 MG, Warfarin Sod 2.5 MG ORAL SCH ×2 (17:00)
[2021-02-09 20:00] VITALS: BP 127/88
[2021-02-09] MEDS: Miralax 17gm pkt NG SCH ×2 (20:41→21:00)
[2021-02-10] VITALS: BP 129/87
[2021-02-10] MEDS: Acetylcysteine 20% Soln 4ml HHN SCH ×4 (01:22→19:00)
[2021-02-10] MEDS: Albuterol/Ipratropium 3ml neb HHN SCH ×4 (01:22→19:00)
[2021-02-10] MEDS: Vancomycin 1 GM in NS 275 ML IVPB SCH ×3 (03:30→19:39)
[2021-02-10 04:00] VITALS: BP 123/84
[2021-02-10] MEDS: HYDROmorphone 1mg/ml Carpuject IVP PRN (04:47)
[2021-02-10] MEDS: Midodrine 10mg tab ORAL SCH ×4 (05:57→22:43)
[2021-02-10] MEDS: Cefepime HCl 1 GM in D5W 55 ML IVPB SCH ×3 (05:57→22:55)
[2021-02-10] MEDS: NovoLOG Insulin Flexpen SUBQ SCH ×4 (06:00→17:34)
[2021-02-10 06:03] LABS: BASOPHILS % (AUTO) 1.9 % (0.0-2.0); EOSINOPHILS % (AUTO) 0.3 % (0.0-3.0); HEMOGLOBIN 10.1 G/DL (14.2-18.0); LYMPHOCYTES % (AUTO) 12.3 % (20.0-45.0); MEAN CORPUSCULAR VOLUME 90 FL (80-99); MONOCYTES % (AUTO) 8.6 % (1.0-10.0); NEUTROPHILS % (AUTO) 76.9 % (45.0-75.0); PLATELET COUNT 574 K/UL (150-450); RED BLOOD COUNT 3.56 M/UL (4.70-6.10); RED CELL DISTRIBUTION WIDTH 15.6 % (11.6-14.8)
[2021-02-10 06:12] LABS: INR 1.3 (0.9-1.1)
[2021-02-10 06:24] LABS: ANION GAP 10 mmol/L (5-15); BLOOD UREA NITROGEN 5 mg/dL (7-18); CALCIUM 9.8 MG/DL (8.5-10.1); CARBON DIOXIDE 28 MMOL/L (21-32); CHLORIDE 101 MMOL/L (98-107); CREATININE 0.7 MG/DL (0.55-1.30); SODIUM 139 MMOL/L (136-145)
[2021-02-10 08:00] VITALS: BP 105/67
[2021-02-10] MEDS: Valproic Acid 250mg/5ml Liquid GT SCH ×2 (08:16→20:14)
--- NOTE | 2021-02-10 08:56 | Pulmonology Progress Note ---
Subjective ROS Limited/Unobtainable: Yes Allergies: Coded Allergies: No Known Allergies (Unverified , 01/02/21) Objective Last 24 Hour Vital Signs Date Time Temp Pulse Resp B/P (MAP) Pulse Ox O2 Delivery O2 Flow Rate FiO2 02/10/21 08:31 111 30 40 02/10/21 08:00 40 02/10/21 08:00 98.5 116 20 105/67 (80) 100 02/10/21 07:59 119 02/10/21 07:12 115 21 99 Mechanical Ventilator 40 111 22 40 02/10/21 06:56 106 26 02/10/21 05:17 99.0 02/10/21 05:00 92 02/10/21 04:00 99.0 115 20 123/84 (97) 99 02/10/21 04:00 118 02/10/21 04:00 40 02/10/21 04:00 Mechanical Ventilator 02/10/21 03:40 111 27 40 02/10/21 01:23 100 26 100 Mechanical Ventilator 40 102 22 40 02/10/21 00:00 Mechanical Ventilator 02/10/21 00:00 102 02/10/21 00:00 98.1 104 14 129/87 (101) 98 02/10/21 00:00 40 02/09/21 20:00 97.9 99 16 127/88 (101) 94 02/09/21 20:00 40 02/09/21 20:00 Mechanical Ventilator 02/09/21 20:00 65 02/09/21 19:46 97 22 100 Mechanical Ventilator 40 100 22 40 02/09/21 16:00 90 02/09/21 16:00 40 02/09/21 16:00 Mechanical Ventilator 02/09/21 16:00 98.8 94 22 117/74 (88) 95 02/09/21 15:10 107 27 40 02/09/21 12:36 107 23 100 Mechanical Ventilator 40 105 22 40 02/09/21 12:00 40 02/09/21 12:00 Mechanical Ventilator 02/09/21 11:59 101.3 104 24 108/71 (83) 94 02/09/21 11:52 99 02/09/21 10:36 99.1 Intake and Output 02/09/21 02/10/21 19:00 07:00 Intake Total 550 ml 50 ml Output Total 900 ml 1700 ml Balance -350 ml -1650 ml Tube Feeding 550 ml 50 ml Output Urine Total 900 ml 1700 ml # Bowel Movements 1 Microbiology Date/Time Source Procedure Growth Status 02/09/21 17:00 Sputum Gram Stain - Final Resulted 02/09/21 17:00 Sputum Sputum Culture Pending Resulted 02/09/21 08:51 Urine,Clean Catch Urine Culture - Preliminary NO GROWTH Resulted Laboratory Tests 02/10/21 05:43: White Blood Count 11.0H, Red Blood Count 3.56L, Hemoglobin 10.1L, Hematocrit 32.0L, Mean Corpuscular Volume 90, Mean Corpuscular Hemoglobin 28.2, Mean Corpuscular Hemoglobin Concent 31.4L, Red Cell Distribution Width 15.6H, Platelet Count 574H, Mean Platelet Volume 7.5, Neutrophils (%) (Auto) 76.9H, Lymphocytes (%) (Auto) 12.3L, Monocytes (%) (Auto) 8.6, Eosinophils (%) (Auto) 0.3, Basophils (%) (Auto) 1.9, Prothrombin Time 14.3H, Prothromb Time International Ratio 1.3H, Sodium Level 139, Potassium Level 4.0, Chloride Level 101, Carbon Dioxide Level 28, Anion Gap 10, Blood Urea Nitrogen 5L, Creatinine 0.7, Estimat Glomerular Filtration Rate > 60, Glucose Level 133H, Calcium Level 9.8 Current Medications Medications (Trade) Dose Ordered Sig/Johnny Route PRN Reason Start Time Stop Time Status Last Admin Dose Admin Acetaminophen (Tylenol) 650 mg Q6H PRN GT Temp >100.5 02/09/21 08:15 03/11/21 08:14 02/09/21 09:27 Acetylcysteine (Mucomyst) 200 mg Q6HRT N 02/03/21 13:00 05/04/21 12:59 02/10/21 07:57 Albuterol/ Ipratropium (Albuterol/ Ipratropium) 3 ml Q6HRT N 02/08/21 13:45 02/13/21 13:44 02/10/21 07:57 Cefepime HCl 1 gm/ Dextrose 55 ml @ 110 mls/hr EVERY 8 HOURS IVPB 02/09/21 09:30 02/16/21 09:29 02/10/21 05:57 Dextrose (Dextrose 50%) 25 ml Q30M PRN IV Hypoglycemia 01/06/21 23:45 04/06/21 23:44 Dextrose (Dextrose 50%) 50 ml Q30M PRN IV Hypoglycemia 01/06/21 23:45 04/06/21 23:44 Hydromorphone HCl (Dilaudid) 0.5 mg Q2H PRN IVP Severe Pain (Pain Scale 7-10) 02/06/21 13:42 02/13/21 13:41 02/10/21 04:47 Insulin Aspart (NovoLOG) EVERY 6 HOURS SUBQ 01/09/21 12:00 04/04/21 16:29 02/10/21 00:00 Lansoprazole (Prevacid) 30 mg DAILY GT 01/24/21 09:00 02/15/21 08:59 02/10/21 08:16 Lorazepam (Ativan 2mg/ml 1ml) 0.5 mg Q6H PRN IV For Seizures 02/05/21 03:15 02/12/21 03:14 02/05/21 03:55 Lorazepam (Ativan 2mg/ml 1ml) 1 mg Q2H PRN IV For Anxiety 02/06/21 08:15 02/13/21 08:14 02/06/21 11:58 Metoclopramide HCl (Reglan) 5 mg Q6H PRN IVP Nausea & Vomiting 02/06/21 00:15 03/08/21 00:14 Midodrine (Pro-Amatine) 10 mg Q8HR ORAL 01/20/21 14:00 04/20/21 13:59 02/10/21 05:57 Ondansetron HCl (Zofran) 4 mg Q6H PRN IVP Nausea & Vomiting 02/06/21 00:15 03/08/21 00:14 Polyethylene Glycol (Miralax) 17 gm BEDTIME NG 02/07/21 21:00 03/09/21 20:59 02/07/21 20:30 Potassium Chloride (K-Dur) 20 meq TWICE A DAY NG 01/20/21 13:00 04/20/21 12:59 02/10/21 08:16 Quetiapine Fumarate (SEROqueL) 100 mg Q12HR ORAL 01/20/21 15:00 03/06/21 14:59 02/10/21 08:16 Valproic Acid (Depakene) 500 mg Q12HR GT 01/22/21 21:00 02/21/21 20:59 02/10/21 08:16 Vancomycin HCl ([facility] pharmacy to dose) 1 ea DAILY PRN MISC Per rx protocol 01/25/21 08:15 02/24/21 08:14 Vancomycin HCl 1 gm/Sodium Chloride 275 ml @ 183.708 mls/hr Q8H IVPB 02/07/21 20:00 02/12/21 19:59 02/10/21 03:30 Warfarin Sodium (Coumadin per pharmacy) 1 ea DAILY PRN MISC . 02/07/21 17:00 03/09/21 16:59 Warfarin Sodium (Coumadin) 7.5 mg ONCE ORAL 02/10/21 17:00 02/10/21 19:00 Assessment/Plan Assessment/Plan Pulmonary Progress Note Seen on 02/08/2021 HPI Patient is a 60 man with prior h/o COPD, CPS/bipolar DO, prior DVT/PE on AC, NHR, DM2, HTN and hydrocephalus,admitted with severe Covid19 Pneumonia. ID following, on AB, s/p REM + SM previously, CXR with bilateral infiltrates/trach Fevers settled,has incr WCC - AB/ID Stable on Ventilator PEEP at 5,maintaining O2 sats, FIO2 - 40%, s/p Tracheostomy, sp G tube, PICC line DC Allergies: Coded Allergies: No Known Allergies (Unverified , 01/02/21) PMH: COPD, CPS/bipolar DO, prior DVT/PE on AC, DM2, HTN and hydrocephalus Physical Exam Deferred Covid19 Vital Signs noted Laboratory Tests noted Imaging noted Height (Feet): 5 Height (Inches): 5.00 Weight (Pounds): 233 Medications Medications noted Assessment/Plan Problem List: (1) Pneumonia due to COVID-19 virus ICD Codes: U07.1 - COVID-19; J12.82 - Pneumonia due to coronavirus disease 2019 SNOMED: 386764651179483173 (2) Acute hypercapnic respiratory failure ICD Codes: J96.02 - Acute respiratory failure with hypercapnia SNOMED: 581103550 (3) Respiratory failure with hypoxia ICD Codes: J96.91 - Respiratory failure, unspecified with hypoxia SNOMED: 77405730738969312 Qualifiers: Qualified Codes: J96.01 - Acute respiratory failure with hypoxia (4) COPD (chronic obstructive pulmonary disease) ICD Codes: J44.9 - Chronic obstructive pulmonary disease, unspecified SNOMED: 60615314 (5) History of deep venous thrombosis or pulmonary embolus SNOMED: 633237866 (6) Obesity ICD Codes: E66.9 - Obesity, unspecified SNOMED: 592504368, 977151065 (7) Essential hypertension ICD Codes: I10 - Essential (primary) hypertension SNOMED: 59929088 (8) Diabetes mellitus type 2 in obese ICD Codes: E11.69 - Type 2 diabetes mellitus with other specified complication; E66.9 - Obesity, unspecified SNOMED: 29631996 (9) History of hydrocephalus ICD Codes: Z86.69 - Personal history of other diseases of the nervous system and sense organs SNOMED: 036718871 (10) Schizophrenia ICD Codes: F20.9 - Schizophrenia, unspecified SNOMED: 28562922 (11) Bipolar 1 disorder ICD Codes: F31.9 - Bipolar disorder, unspecified SNOMED: 813382279 (12) Anticoagulant long-term use ICD Codes: Z79.01 - group home (current) use of anticoagulants SNOMED: 926152620 Assessment/Plan: ACVC - adjust PRN ABG PRN Adjust FiO2 to keep SaO2 > 92% Wean as tolerated - SIMV Sedation PRN HFA's Weaned off SM Abx per ID F/U Cx's DVT Px: Coumadin sandra TF FC GT Trach SDU Seen on 02/08/2021 Anuel Luis MD Feb 10, 2021 08:56
--- NOTE | 2021-02-10 10:58 | Surgery Progress Note ---
Surgery Progress Note Subjective Procedure Performed tracheostomy Additional Comments labs improving wbc trending down tolerating diet tf trach okay Objective Last 24 Hour Vital Signs Date Time Temp Pulse Resp B/P (MAP) Pulse Ox O2 Delivery O2 Flow Rate FiO2 02/10/21 08:31 111 30 40 02/10/21 08:00 Mechanical Ventilator 02/10/21 08:00 40 02/10/21 08:00 98.5 116 20 105/67 (80) 100 02/10/21 07:59 119 02/10/21 07:12 115 21 99 Mechanical Ventilator 40 111 22 40 02/10/21 06:56 106 26 02/10/21 05:17 99.0 02/10/21 05:00 92 02/10/21 04:00 99.0 115 20 123/84 (97) 99 02/10/21 04:00 118 02/10/21 04:00 40 02/10/21 04:00 Mechanical Ventilator 02/10/21 03:40 111 27 40 02/10/21 01:23 100 26 100 Mechanical Ventilator 40 102 22 40 02/10/21 00:00 Mechanical Ventilator 02/10/21 00:00 102 02/10/21 00:00 98.1 104 14 129/87 (101) 98 02/10/21 00:00 40 02/09/21 20:00 97.9 99 16 127/88 (101) 94 02/09/21 20:00 40 02/09/21 20:00 Mechanical Ventilator 02/09/21 20:00 65 02/09/21 19:46 97 22 100 Mechanical Ventilator 40 100 22 40 02/09/21 16:00 90 02/09/21 16:00 40 02/09/21 16:00 Mechanical Ventilator 02/09/21 16:00 98.8 94 22 117/74 (88) 95 02/09/21 15:10 107 27 40 02/09/21 12:36 107 23 100 Mechanical Ventilator 40 105 22 40 02/09/21 12:00 40 02/09/21 12:00 Mechanical Ventilator 02/09/21 11:59 101.3 104 24 108/71 (83) 94 02/09/21 11:52 99 I&O Intake and Output 02/09/21 02/10/21 19:00 07:00 Intake Total 550 ml 50 ml Output Total 900 ml 1700 ml Balance -350 ml -1650 ml Tube Feeding 550 ml 50 ml Output Urine Total 900 ml 1700 ml # Bowel Movements 1 Dressing: saturated Wound: clean Cardiovascular: RSR Respiratory: decreased breath sounds Abdomen: soft, non-tender, present bowel sounds, non-distended Extremities: no edema, no tenderness, no cyanosis Laboratory Tests Test 02/10/21 05:43 White Blood Count 11.0 K/UL (4.8-10.8) H Red Blood Count 3.56 M/UL (4.70-6.10) L Hemoglobin 10.1 G/DL (14.2-18.0) L Hematocrit 32.0 % (42.0-52.0) L Mean Corpuscular Volume 90 FL (80-99) Mean Corpuscular Hemoglobin 28.2 PG (27.0-31.0) Mean Corpuscular Hemoglobin Concent 31.4 G/DL (32.0-36.0) L Red Cell Distribution Width 15.6 % (11.6-14.8) H Platelet Count 574 K/UL (150-450) H Mean Platelet Volume 7.5 FL (6.5-10.1) Neutrophils (%) (Auto) 76.9 % (45.0-75.0) H Lymphocytes (%) (Auto) 12.3 % (20.0-45.0) L Monocytes (%) (Auto) 8.6 % (1.0-10.0) Eosinophils (%) (Auto) 0.3 % (0.0-3.0) Basophils (%) (Auto) 1.9 % (0.0-2.0) Prothrombin Time 14.3 SEC (9.30-11.50) H Prothromb Time International Ratio 1.3 (0.9-1.1) H Sodium Level 139 MMOL/L (136-145) Potassium Level 4.0 MMOL/L (3.5-5.1) Chloride Level 101 MMOL/L (98-107) Carbon Dioxide Level 28 MMOL/L (21-32) Anion Gap 10 mmol/L (5-15) Blood Urea Nitrogen 5 mg/dL (7-18) L Creatinine 0.7 MG/DL (0.55-1.30) Estimat Glomerular Filtration Rate > 60 mL/min (>60) Glucose Level 133 MG/DL (74-106) H Calcium Level 9.8 MG/DL (8.5-10.1) Plan Problems: (1) COPD (chronic obstructive pulmonary disease) (2) Essential hypertension (3) Schizophrenia (4) Obesity (5) Diabetes mellitus type 2 in obese (6) History of hydrocephalus (7) Anticoagulant long-term use (8) Bipolar 1 disorder (9) History of deep venous thrombosis or pulmonary embolus (10) Acute hypercapnic respiratory failure (11) Sepsis Assessment & Plan: 60-year-old male Covid positive respiratory insufficiency and severe decline being prone intubated on vent support labs noted septic ill- appearing has been developing wound around the face from ET tube.Receiv ed report from RT pt is being proned and was observed to have developed a blood blister under vent tape on L cheek and L earlobe. Skin assessed and pt was ob served to have a blood blister that is 50% de-capped,50% intact. Intact Blood Blister noted to L earlobe. Skin Barrier applied to affected areas. Optifoam Thin foam placed between vent anchor and pt's skin. Optifoam thin placed to R cheek under Vent tape, on Bridge of nose and both earlobes. Given patient's critical status current care plan and findings nutritional optimization is strongly encouraged Covid nutrition plan initiated. All Covid precautions are being taken. Imaging reviewed. Will follow with care plan. Thank you [facility] participation care Tx.Plan: Maintain Optifoam Thin foam to R and L cheeks,Bridge of Nose and Both Ears . Change every 7 days and prn.( May request Optifoam Thin from [facility] dept). APM/PEPE Mattress overlay DAILY ESTIMATED NEEDS: Needs based on Critical care, pulmonary, obese 73.7kg abw 22-28 kcals/kg 1082-5858 total kcals 1.2-2 g protein/kg 88-147 g total protein 25-30 mL/kg 1705-2837 total fluid mLs NUTRITION DIAGNOSIS: Altered nutrition related lab values r/t steroidal meds, clinical status as evidenced by febrile on adm (102.5), elevated BG (270 287) on solumedrol, elevated lipid panel (Triglycerides 333, Chol 370, LDL 150). CURRENT TF:Vital @30ml/hr, now Nepro @30 ENTERAL NUTRITION RECOMMENDATIONS: NEPRO @30ml/hr while supine to provide x8 hrs feeds: 360ml, 648 kcal, 29g pro, 262ml free H2O - Feed at rate best tolerated, currently not meeting est needs d/t proning and aspiration risk w/ supine feeds limited to 8hrs/day. - W/ reduced aspiration risk rec feedings to total Volume of 900ml/day of Nepro as medically able. - Monitor tolerance, position/HOB >30 degrees, hemodynamic stability and ability to increase to meet est kcal and pro needs. - With increase pressor support, rec trophic feeds of 10ml/hr for gut integrity. - When tolerating TF at goal add Prosource BID to better meet est pro needs. ADDITIONAL RECOMMENDATIONS: 1) Now intubated, TF recs above when off proning (8hrs feeds) 2) Obtain calibrated bedscale wts 3) HgA1C/ elevated BG Need for niss while on D5 4) Lytes daily; replete as needed 5) Monitor triglycerides, TF tolerance, hemodynamic stability. (12) Respiratory failure with hypoxia Assessment & Plan: cont weaning vent wean pressors not ready for trach off pressors improving HD stable plan trach soon as unable to extubate s/p trach 02/05 peg recovering placement cont tf (13) Pneumonia due to COVID-19 virus (14) Hyperkalemia (15) DMII (diabetes mellitus, type 2) Ki Strong Feb 10, 2021 10:58
[2021-02-10 12:00] VITALS: BP 105/68
--- NOTE | 2021-02-10 12:04 | Nephrology Progress Note ---
Assessment/Plan Problem List: (1) Hyperkalemia (2) Pneumonia due to COVID-19 virus (3) Respiratory failure with hypoxia (4) Obesity (5) Schizophrenia (6) DMII (diabetes mellitus, type 2) Assessment Hyperkalemia Stable renal parameters Hyperglycemia Covid pneumonia due to COVID-19 virus Acute respiratory failure with hypoxia requiring mechanical ventilation History of COPD History of DVT, pulmonary emboli Obese Hypertension History of diabetes Psych condition, schizophrenia, bipolar disease Plan February 10: Status unchanged. Full code. Trach to vent. Labs reviewed. Stable from renal standpoint of view. February 09: Labs reviewed. Renal parameters stable. Trach, vent, PEG, full code. February 08: Labs reviewed. Renal parameters stable. Tracheostomy to vent. Full code. Continue per consultants. February 07: Labs reviewed. Renal parameters stable. Patient is trach connected to vent has a PEG and is full code. Continue per consultants. February 06: Full code. Intubated on ventilator. Had tracheostomy. Due for PEG. Continue as is. February 05: Full code. Intubated on ventilator. Due for tracheostomy today as per RN. Renal parameters stable. Continue as is. February 04: Remains full code. Intubated on ventilator. FiO2 40%. Due for tracheostomy. Stable from renal standpoint of view. February 03: Remains intubated on ventilator. FiO2 40%. Discussed with RN. Patient is planned to have tracheostomy. Labs reviewed. Renal parameters stable. February 02: Status quo. Full code. Intubated on ventilator. FiO2 40%. Renal parameters stable. February 01: Status quo. FiO2 40%. Full code. Labs reviewed. Renal parameters stable. January 31: Status quo. FiO2 45%. Full code. Renal parameters stable. Abnormal electrolytes addressed. January 30: Status quo. Remains full code. Intubated. On ventilator. Low magnesium addressed. Continue per consultants. January 29: Status quo. Labs reviewed. Low magnesium addressed. Discussed with JOHAN Ratliff. Continue per consultants. January 28: Status quo. Labs and medication list reviewed. K-Phos supplement ordered. Continue per current treatment plan. January 27: Patient remains full code. Intubated on ventilator. FiO2 50%. Labs reviewed. Renal parameters stable. Medication list reviewed. January 26: Full code. Intubated. On ventilator. FiO2 65%. No CHEM panel drawn today. Continue per consultants. January 25: Status unchanged. Blood pressure low. Remains full code on ventilator. Continue per consultants. Medication list reviewed. INR is 3.8 today. January 24: Status quo. Intubated on ventilator and full code. Labs reviewed. Medication list reviewed. Continue per consultants. January 23: Patient on prone position. IntubatedFiO2 65%. Renal parameters stable. Continue per consultants. Date 21 hospitalization. Possible trach?. January 22: FiO2 50%. Prone position. Labs reviewed. Stable from renal standpoint of view. Continue per consultants. January 21: Full code. Intubated on ventilator. FiO2 40%. Labs reviewed. Renal parameters stable. Continue per consultants. January 20: Status unchanged. Full code. On ventilator. Chest x-ray reviewed. IV fluid discontinued. Potassium supplement given. 1 dose of Lasix given. Albumin bolus given. Midodrine started. Will monitor renal parameters and electrolytes. Discussed with JOHAN Mohamud. January 19: Labs reviewed. Renal parameters stable. Remains full code intubated on ventilator. FiO2 50%. Continue per consultants. January 18: Full code. Intubated. On ventilator. FiO2 down to 35%. No labs drawn today. Continue to monitor renal parameters and electrolytes. January 17: Full code. Intubated on ventilator. FiO2 remains at 60%. Labs reviewed. Renal parameters stable. January 16: Full code. Intubated. Labs reviewed. Renal parameters stable. FiO2 60%. Continue per consultants. January 15: Patient remains intubated and full code. Labs reviewed. Stable renal parameters. January 14: Patient full code. Intubated on ventilator. On prone position until 5 PM. Labs reviewed. Stable from renal standpoint of view. January 13: Labs reviewed. Renal parameters stable. Continue per consultants. Patient remain full code and intubated on ventilator. January 12: Labs reviewed. Renal parameters stable. Patient remains full code. Remains intubated on ventilator and on prone position. Continue per consultants. January 11: Labs reviewed. Renal parameters stable. Continue per consultants. January 10: Labs reviewed. Renal parameters stable. Continue per consultants. Change IV to half-normal saline Kayexalate via NG tube for high potassium Monitor electrolytes and renal parameters Per orders, per consultants Subjective ROS Limited/Unobtainable: Yes Objective Objective Last 24 Hour Vital Signs Date Time Temp Pulse Resp B/P (MAP) Pulse Ox O2 Delivery O2 Flow Rate FiO2 02/10/21 08:31 111 30 40 02/10/21 08:00 Mechanical Ventilator 02/10/21 08:00 40 02/10/21 08:00 98.5 116 20 105/67 (80) 100 02/10/21 07:59 119 02/10/21 07:12 115 21 99 Mechanical Ventilator 40 111 22 40 02/10/21 06:56 106 26 02/10/21 05:17 99.0 02/10/21 05:00 92 02/10/21 04:00 99.0 115 20 123/84 (97) 99 02/10/21 04:00 118 02/10/21 04:00 40 02/10/21 04:00 Mechanical Ventilator 02/10/21 03:40 111 27 40 02/10/21 01:23 100 26 100 Mechanical Ventilator 40 102 22 40 02/10/21 00:00 Mechanical Ventilator 02/10/21 00:00 102 02/10/21 00:00 98.1 104 14 129/87 (101) 98 02/10/21 00:00 40 02/09/21 20:00 97.9 99 16 127/88 (101) 94 02/09/21 20:00 40 02/09/21 20:00 Mechanical Ventilator 02/09/21 20:00 65 02/09/21 19:46 97 22 100 Mechanical Ventilator 40 100 22 40 02/09/21 16:00 90 02/09/21 16:00 40 02/09/21 16:00 Mechanical Ventilator 02/09/21 16:00 98.8 94 22 117/74 (88) 95 02/09/21 15:10 107 27 40 02/09/21 12:36 107 23 100 Mechanical Ventilator 40 105 22 40 Intake and Output 02/09/21 02/10/21 19:00 07:00 Intake Total 550 ml 50 ml Output Total 900 ml 1700 ml Balance -350 ml -1650 ml Tube Feeding 550 ml 50 ml Output Urine Total 900 ml 1700 ml # Bowel Movements 1 Current Medications Medications (Trade) Dose Ordered Sig/Johnny Route PRN Reason Start Time Stop Time Status Last Admin Dose Admin Acetaminophen (Tylenol) 650 mg Q6H PRN GT Temp >100.5 02/09/21 08:15 03/11/21 08:14 02/09/21 09:27 Acetylcysteine (Mucomyst) 200 mg Q6HRT N 02/03/21 13:00 05/04/21 12:59 02/10/21 07:57 Albuterol/ Ipratropium (Albuterol/ Ipratropium) 3 ml Q6HRT HHN 02/08/21 13:45 02/13/21 13:44 02/10/21 07:57 Cefepime HCl 1 gm/ Dextrose 55 ml @ 110 mls/hr EVERY 8 HOURS IVPB 02/09/21 09:30 02/16/21 09:29 02/10/21 05:57 Dextrose (Dextrose 50%) 25 ml Q30M PRN IV Hypoglycemia 01/06/21 23:45 04/06/21 23:44 Dextrose (Dextrose 50%) 50 ml Q30M PRN IV Hypoglycemia 01/06/21 23:45 04/06/21 23:44 Hydromorphone HCl (Dilaudid) 0.5 mg Q2H PRN IVP Severe Pain (Pain Scale 7-10) 02/06/21 13:42 02/13/21 13:41 02/10/21 04:47 Insulin Aspart (NovoLOG) EVERY 6 HOURS SUBQ 01/09/21 12:00 04/04/21 16:29 02/10/21 00:00 Lansoprazole (Prevacid) 30 mg DAILY GT 01/24/21 09:00 02/15/21 08:59 02/10/21 08:16 Lorazepam (Ativan 2mg/ml 1ml) 0.5 mg Q6H PRN IV For Seizures 02/05/21 03:15 02/12/21 03:14 02/05/21 03:55 Lorazepam (Ativan 2mg/ml 1ml) 1 mg Q2H PRN IV For Anxiety 02/06/21 08:15 02/13/21 08:14 02/06/21 11:58 Metoclopramide HCl (Reglan) 5 mg Q6H PRN IVP Nausea & Vomiting 02/06/21 00:15 03/08/21 00:14 Midodrine (Pro-Amatine) 10 mg Q8HR ORAL 01/20/21 14:00 04/20/21 13:59 02/10/21 05:57 Ondansetron HCl (Zofran) 4 mg Q6H PRN IVP Nausea & Vomiting 02/06/21 00:15 03/08/21 00:14 Potassium Chloride (K-Dur) 20 meq TWICE A DAY NG 01/20/21 13:00 04/20/21 12:59 02/10/21 08:16 Quetiapine Fumarate (SEROqueL) 100 mg Q12HR ORAL 01/20/21 15:00 03/06/21 14:59 02/10/21 08:16 Valproic Acid (Depakene) 500 mg Q12HR GT 01/22/21 21:00 02/21/21 20:59 02/10/21 08:16 [facility] 1 ea DAILY PRN MISC Per rx protocol 01/25/21 08:15 02/24/21 08:14 Vancomycin HCl 1 gm/Sodium Chloride 275 ml @ 183.708 mls/hr Q8H IVPB 02/07/21 20:00 02/12/21 19:59 02/10/21 03:30 Warfarin Sodium (Coumadin per pharmacy) 1 ea DAILY PRN MISC . 02/07/21 17:00 03/09/21 16:59 Warfarin Sodium (Coumadin) 7.5 mg ONCE ORAL 02/10/21 17:00 02/10/21 19:00 Laboratory Tests 02/10/21 05:43: White Blood Count 11.0H, Red Blood Count 3.56L, Hemoglobin 10.1L, Hematocrit 32.0L, Mean Corpuscular Volume 90, Mean Corpuscular Hemoglobin 28.2, Mean Corpuscular Hemoglobin Concent 31.4L, Red Cell Distribution Width 15.6H, Platelet Count 574H, Mean Platelet Volume 7.5, Neutrophils (%) (Auto) 76.9H, Lymphocytes (%) (Auto) 12.3L, Monocytes (%) (Auto) 8.6, Eosinophils (%) (Auto) 0.3, Basophils (%) (Auto) 1.9, Prothrombin Time 14.3H, Prothromb Time International Ratio 1.3H, Sodium Level 139, Potassium Level 4.0, Chloride Level 101, Carbon Dioxide Level 28, Anion Gap 10, Blood Urea Nitrogen 5L, Creatinine 0.7, Estimat Glomerular Filtration Rate > 60, Glucose Level 133H, Calcium Level 9.8 02/10/21 11:02: Arterial Blood pH 7.447, Arterial Blood Partial Pressure CO2 38.0, Arterial Blood Partial Pressure O2 91.4, Arterial Blood HCO3 25.6, Arterial Blood Oxygen Saturation 96.8, Arterial Blood Base Excess 1.6, Miguelito Test Positive Height (Feet): 5 Height (Inches): 5.00 Weight (Pounds): 223 General Appearance: no apparent distress EENT: other - Trach to vent Cardiovascular: tachycardia Respiratory/Chest: decreased breath sounds Abdomen: distended Avi Frye MD Feb 10, 2021 12:04
--- NOTE | 2021-02-10 15:01 | Internal Med Progress Note ---
Subjective Date of Service: Feb 10, 2021 Physician Name Vickey Brown Attending Physician Geovanny Bradley MD Current Medications Medications (Trade) Dose Ordered Sig/Johnny Route PRN Reason Start Time Stop Time Status Last Admin Dose Admin Acetaminophen (Tylenol) 650 mg Q6H PRN GT Temp >100.5 02/09/21 08:15 03/11/21 08:14 02/09/21 09:27 Acetylcysteine (Mucomyst) 200 mg Q6HRT HHN 02/03/21 13:00 05/04/21 12:59 02/10/21 13:49 Albuterol/ Ipratropium (Albuterol/ Ipratropium) 3 ml Q6HRT HHN 02/08/21 13:45 02/13/21 13:44 02/10/21 13:49 Cefepime HCl 1 gm/ Dextrose 55 ml @ 110 mls/hr EVERY 8 HOURS IVPB 02/09/21 09:30 02/16/21 09:29 02/10/21 13:10 Dextrose (Dextrose 50%) 25 ml Q30M PRN IV Hypoglycemia 01/06/21 23:45 04/06/21 23:44 Dextrose (Dextrose 50%) 50 ml Q30M PRN IV Hypoglycemia 01/06/21 23:45 04/06/21 23:44 Hydromorphone HCl (Dilaudid) 0.5 mg Q2H PRN IVP Severe Pain (Pain Scale 7-10) 02/06/21 13:42 02/13/21 13:41 02/10/21 04:47 Insulin Aspart (NovoLOG) EVERY 6 HOURS SUBQ 01/09/21 12:00 04/04/21 16:29 02/10/21 12:57 Lansoprazole (Prevacid) 30 mg DAILY GT 01/24/21 09:00 02/15/21 08:59 02/10/21 08:16 Lorazepam (Ativan 2mg/ml 1ml) 0.5 mg Q6H PRN IV For Seizures 02/05/21 03:15 02/12/21 03:14 02/05/21 03:55 Lorazepam (Ativan 2mg/ml 1ml) 1 mg Q2H PRN IV For Anxiety 02/06/21 08:15 02/13/21 08:14 02/06/21 11:58 Metoclopramide HCl (Reglan) 5 mg Q6H PRN IVP Nausea & Vomiting 02/06/21 00:15 03/08/21 00:14 Midodrine (Pro-Amatine) 10 mg Q8HR ORAL 01/20/21 14:00 04/20/21 13:59 02/10/21 14:14 Ondansetron HCl (Zofran) 4 mg Q6H PRN IVP Nausea & Vomiting 02/06/21 00:15 03/08/21 00:14 Potassium Chloride (K-Dur) 20 meq TWICE A DAY NG 01/20/21 13:00 04/20/21 12:59 02/10/21 08:16 Quetiapine Fumarate (SEROqueL) 100 mg Q12HR ORAL 01/20/21 15:00 03/06/21 14:59 02/10/21 08:16 Valproic Acid (Depakene) 500 mg Q12HR GT 01/22/21 21:00 02/21/21 20:59 02/10/21 08:16 Vancomycin HCl (Vanco pharmacy to dose) 1 ea DAILY PRN MISC Per rx protocol 01/25/21 08:15 02/24/21 08:14 Vancomycin HCl 1 gm/Sodium Chloride 275 ml @ 183.708 mls/hr Q8H IVPB 02/07/21 20:00 02/12/21 19:59 02/10/21 12:58 Warfarin Sodium (Coumadin per pharmacy) 1 ea DAILY PRN MISC . 02/07/21 17:00 03/09/21 16:59 Warfarin Sodium (Coumadin) 7.5 mg ONCE ORAL 02/10/21 17:00 02/10/21 19:00 Allergies: Coded Allergies: No Known Allergies (Unverified , 01/02/21) ROS Limited/Unobtainable: Yes Subjective 60 YO M admitted with shortness of breath. Now respiratory failure. Cover for Int Rohit-DR Bradley. Intubated and sedated. S/P Endoscopy/PEG placement 02/06/21. Objective Last Vital Signs Date Time Temp Pulse Resp B/P (MAP) Pulse Ox O2 Delivery O2 Flow Rate FiO2 02/10/21 12:00 98.2 111 20 105/68 (80) 100 02/10/21 12:00 Mechanical Ventilator 02/10/21 12:00 40 02/06/21 05:55 65.0 Laboratory Tests Test 02/10/21 05:43 02/10/21 11:02 White Blood Count 11.0 K/UL (4.8-10.8) H Red Blood Count 3.56 M/UL (4.70-6.10) L Hemoglobin 10.1 G/DL (14.2-18.0) L Hematocrit 32.0 % (42.0-52.0) L Mean Corpuscular Volume 90 FL (80-99) Mean Corpuscular Hemoglobin 28.2 PG (27.0-31.0) Mean Corpuscular Hemoglobin Concent 31.4 G/DL (32.0-36.0) L Red Cell Distribution Width 15.6 % (11.6-14.8) H Platelet Count 574 K/UL (150-450) H Mean Platelet Volume 7.5 FL (6.5-10.1) Neutrophils (%) (Auto) 76.9 % (45.0-75.0) H Lymphocytes (%) (Auto) 12.3 % (20.0-45.0) L Monocytes (%) (Auto) 8.6 % (1.0-10.0) Eosinophils (%) (Auto) 0.3 % (0.0-3.0) Basophils (%) (Auto) 1.9 % (0.0-2.0) Prothrombin Time 14.3 SEC (9.30-11.50) H Prothromb Time International Ratio 1.3 (0.9-1.1) H Sodium Level 139 MMOL/L (136-145) Potassium Level 4.0 MMOL/L (3.5-5.1) Chloride Level 101 MMOL/L (98-107) Carbon Dioxide Level 28 MMOL/L (21-32) Anion Gap 10 mmol/L (5-15) Blood Urea Nitrogen 5 mg/dL (7-18) L Creatinine 0.7 MG/DL (0.55-1.30) Estimat Glomerular Filtration Rate > 60 mL/min (>60) Glucose Level 133 MG/DL (74-106) H Calcium Level 9.8 MG/DL (8.5-10.1) Arterial Blood pH 7.447 (7.350-7.450) Arterial Blood Partial Pressure CO2 38.0 mmHg (35.0-45.0) Arterial Blood Partial Pressure O2 91.4 mmHg (75.0-100.0) Arterial Blood HCO3 25.6 mmol/L (22.0-26.0) Arterial Blood Oxygen Saturation 96.8 % (95-100) Arterial Blood Base Excess 1.6 (-2-2) Miguelito Test Positive Microbiology Date/Time Source Procedure Growth Status 02/09/21 17:00 Sputum Gram Stain - Final Resulted 02/09/21 17:00 Sputum Sputum Culture Pending Resulted 02/09/21 08:51 Urine,Clean Catch Urine Culture - Preliminary NO GROWTH Resulted Intake and Output 02/09/21 02/10/21 19:00 07:00 Intake Total 550 ml 50 ml Output Total 900 ml 1700 ml Balance -350 ml -1650 ml Tube Feeding 550 ml 50 ml Output Urine Total 900 ml 1700 ml # Bowel Movements 1 Objective Objective General: awake, responsive , confused. HEENT: NCAT, sclera anicteric, PERRL, EOMI. Neck: Supple, no significant jugular venous distention, Lungs: mech vent; decreased air at the bases, occasional crackles, no Wheeze. Heart: Regular rate and rhythm, normal S1/S2, no murmurs Abdomen: soft, nontender, nondistended. Normoactive bowel sound, obesity. / Rectal: Refused and deferred. Extremities: Left LE: No Cyanosis , clubbing or edema. Right LE AKA. Neuro: A&O x 2, Able to move all extremities Skin: warm, no rashes or lesions. Assessment/Plan Assessment/Plan Assessment/Plan Assessment/Plan (1) Pneumonia due to COVID-19 virus ICD Codes: U07.1 - COVID-19; J12.82 - Pneumonia due to coronavirus disease 2019 SNOMED: 539318191639164293 (2) Acute hypercapnic respiratory failure ICD Codes: J96.02 - Acute respiratory failure with hypercapnia SNOMED: 823690557 (3) Respiratory failure with hypoxia ICD Codes: J96.91 - Respiratory failure, unspecified with hypoxia SNOMED: 88595685373515800 Qualifiers: Qualified Codes: J96.01 - Acute respiratory failure with hypoxia (4) COPD (chronic obstructive pulmonary disease) ICD Codes: J44.9 - Chronic obstructive pulmonary disease, unspecified SNOMED: 20298370 (5) History of deep venous thrombosis or pulmonary embolus SNOMED: 974587267 (6) Obesity ICD Codes: E66.9 - Obesity, unspecified SNOMED: 986139388, 726470625 (7) Essential hypertension ICD Codes: I10 - Essential (primary) hypertension SNOMED: 55522449 (8) Diabetes mellitus type 2 in obese ICD Codes: E11.69 - Type 2 diabetes mellitus with other specified complication; E66.9 - Obesity, unspecified SNOMED: 68393228 (9) History of hydrocephalus ICD Codes: Z86.69 - Personal history of other diseases of the nervous system and sense organs SNOMED: 943820038 (10) Schizophrenia ICD Codes: F20.9 - Schizophrenia, unspecified SNOMED: 29434656 (11) Bipolar 1 disorder ICD Codes: F31.9 - Bipolar disorder, unspecified SNOMED: 497926719 (12) Anticoagulant long-term use ICD Codes: Z79.01 - care home (current) use of anticoagulants SNOMED: 352714024 13. Sepsis=gram pos cocci 14. thrush Assessment/Plan: Optimize pulmonary hygiene/mobilize as tolerated Non Rebreather mask>BIPAP>intubated S/P Remdesivir IV S/P Solu-Medrol 40 mg IV twice a day. Abx = vanco and cefepime F/U Cx's Monitor volumes and renal function DVT Px: Coumadin DC IV fluid Start diet Monitor blood glucose level closely. On levophed, fentanyl and propofol drips Pulmonary=Dr Luis ID=Dr Gomez Psych consult=Dr Gallgeos; continue seroquel continue nystatin await tracheostomy Optimize pulmonary hygiene/mobilize as tolerated Completed Remdesivir IV Abx: Vanco IV and Zosyn IV F/U Cx's Monitor volumes and renal function DVT Px: Coumadin Monitor blood glucose level closely. FULL Code Tolerated Tube feeding @ 60 cc/hr. S/P endoscopy/PEG plamement 02/06/21 S/P Trach 02/06/21 Discharge planning: [facility] [place] sub acute Vickey Brown MD Feb 10, 2021 15:01
[2021-02-10 16:00] VITALS: BP 106/73
--- NOTE | 2021-02-10 16:50 | Pulmonology Progress Note ---
Subjective ROS Limited/Unobtainable: Yes Allergies: Coded Allergies: No Known Allergies (Unverified , 01/02/21) Objective Last 24 Hour Vital Signs Date Time Temp Pulse Resp B/P (MAP) Pulse Ox O2 Delivery O2 Flow Rate FiO2 02/10/21 16:00 40 02/10/21 16:00 99.3 100 22 106/73 (84) 100 02/10/21 15:00 97 27 40 02/10/21 14:04 104 21 100 Mechanical Ventilator 40 106 21 40 02/10/21 12:00 98.2 111 20 105/68 (80) 100 02/10/21 12:00 Mechanical Ventilator 02/10/21 12:00 93 02/10/21 12:00 40 02/10/21 11:10 95 02/10/21 10:50 40 02/10/21 08:31 111 30 40 02/10/21 08:30 40 02/10/21 08:00 Mechanical Ventilator 02/10/21 08:00 40 02/10/21 08:00 98.5 116 20 105/67 (80) 100 02/10/21 07:59 119 02/10/21 07:12 115 21 99 Mechanical Ventilator 40 111 22 40 02/10/21 06:56 106 26 02/10/21 05:17 99.0 02/10/21 05:00 92 02/10/21 04:00 99.0 115 20 123/84 (97) 99 02/10/21 04:00 118 02/10/21 04:00 40 02/10/21 04:00 Mechanical Ventilator 02/10/21 03:40 111 27 40 02/10/21 01:23 100 26 100 Mechanical Ventilator 40 102 22 40 02/10/21 00:00 Mechanical Ventilator 02/10/21 00:00 102 02/10/21 00:00 98.1 104 14 129/87 (101) 98 02/10/21 00:00 40 02/09/21 20:00 97.9 99 16 127/88 (101) 94 02/09/21 20:00 40 02/09/21 20:00 Mechanical Ventilator 02/09/21 20:00 65 02/09/21 19:46 97 22 100 Mechanical Ventilator 40 100 22 40 Intake and Output 02/09/21 02/10/21 19:00 07:00 Intake Total 550 ml 50 ml Output Total 900 ml 1700 ml Balance -350 ml -1650 ml Tube Feeding 550 ml 50 ml Output Urine Total 900 ml 1700 ml # Bowel Movements 1 Microbiology Date/Time Source Procedure Growth Status 02/09/21 17:00 Sputum Gram Stain - Final Resulted 02/09/21 17:00 Sputum Sputum Culture Pending Resulted 02/09/21 08:51 Urine,Clean Catch Urine Culture - Preliminary NO GROWTH Resulted Laboratory Tests 02/10/21 05:43: White Blood Count 11.0H, Red Blood Count 3.56L, Hemoglobin 10.1L, Hematocrit 32.0L, Mean Corpuscular Volume 90, Mean Corpuscular Hemoglobin 28.2, Mean Corpuscular Hemoglobin Concent 31.4L, Red Cell Distribution Width 15.6H, Platelet Count 574H, Mean Platelet Volume 7.5, Neutrophils (%) (Auto) 76.9H, Lymphocytes (%) (Auto) 12.3L, Monocytes (%) (Auto) 8.6, Eosinophils (%) (Auto) 0.3, Basophils (%) (Auto) 1.9, Prothrombin Time 14.3H, Prothromb Time International Ratio 1.3H, Sodium Level 139, Potassium Level 4.0, Chloride Level 101, Carbon Dioxide Level 28, Anion Gap 10, Blood Urea Nitrogen 5L, Creatinine 0.7, Estimat Glomerular Filtration Rate > 60, Glucose Level 133H, Calcium Level 9.8 02/10/21 11:02: Arterial Blood pH 7.447, Arterial Blood Partial Pressure CO2 38.0, Arterial Blood Partial Pressure O2 91.4, Arterial Blood HCO3 25.6, Arterial Blood Oxygen Saturation 96.8, Arterial Blood Base Excess 1.6, Miguelito Test Positive Current Medications Medications (Trade) Dose Ordered Sig/Johnny Route PRN Reason Start Time Stop Time Status Last Admin Dose Admin Acetaminophen (Tylenol) 650 mg Q6H PRN GT Temp >100.5 02/09/21 08:15 03/11/21 08:14 02/09/21 09:27 Acetylcysteine (Mucomyst) 200 mg Q6HRT N 02/03/21 13:00 05/04/21 12:59 02/10/21 13:49 Albuterol/ Ipratropium (Albuterol/ Ipratropium) 3 ml Q6HRT HHN 02/08/21 13:45 02/13/21 13:44 02/10/21 13:49 Cefepime HCl 1 gm/ Dextrose 55 ml @ 110 mls/hr EVERY 8 HOURS IVPB 02/09/21 09:30 02/16/21 09:29 02/10/21 13:10 Dextrose (Dextrose 50%) 25 ml Q30M PRN IV Hypoglycemia 01/06/21 23:45 04/06/21 23:44 Dextrose (Dextrose 50%) 50 ml Q30M PRN IV Hypoglycemia 01/06/21 23:45 04/06/21 23:44 Hydromorphone HCl (Dilaudid) 0.5 mg Q2H PRN IVP Severe Pain (Pain Scale 7-10) 02/06/21 13:42 02/13/21 13:41 02/10/21 04:47 Insulin Aspart (NovoLOG) EVERY 6 HOURS SUBQ 01/09/21 12:00 04/04/21 16:29 02/10/21 12:57 Lansoprazole (Prevacid) 30 mg DAILY GT 01/24/21 09:00 02/15/21 08:59 02/10/21 08:16 Lorazepam (Ativan 2mg/ml 1ml) 0.5 mg Q6H PRN IV For Seizures 02/05/21 03:15 02/12/21 03:14 02/05/21 03:55 Lorazepam (Ativan 2mg/ml 1ml) 1 mg Q2H PRN IV For Anxiety 02/06/21 08:15 02/13/21 08:14 02/06/21 11:58 Metoclopramide HCl (Reglan) 5 mg Q6H PRN IVP Nausea & Vomiting 02/06/21 00:15 03/08/21 00:14 Midodrine (Pro-Amatine) 10 mg Q8HR ORAL 01/20/21 14:00 04/20/21 13:59 02/10/21 14:14 Ondansetron HCl (Zofran) 4 mg Q6H PRN IVP Nausea & Vomiting 02/06/21 00:15 03/08/21 00:14 Potassium Chloride (K-Dur) 20 meq TWICE A DAY NG 01/20/21 13:00 04/20/21 12:59 02/10/21 08:16 Quetiapine Fumarate (SEROqueL) 100 mg Q12HR ORAL 01/20/21 15:00 03/06/21 14:59 02/10/21 08:16 Valproic Acid (Depakene) 500 mg Q12HR GT 01/22/21 21:00 02/21/21 20:59 02/10/21 08:16 Vancomycin HCl (Vanco pharmacy to dose) 1 ea DAILY PRN MISC Per rx protocol 01/25/21 08:15 02/24/21 08:14 Vancomycin HCl 1 gm/Sodium Chloride 275 ml @ 183.708 mls/hr Q8H IVPB 02/07/21 20:00 02/12/21 19:59 02/10/21 12:58 Warfarin Sodium (Coumadin per pharmacy) 1 ea DAILY PRN MISC . 02/07/21 17:00 03/09/21 16:59 Warfarin Sodium (Coumadin) 7.5 mg ONCE ORAL 02/10/21 17:00 02/10/21 19:00 Assessment/Plan Assessment/Plan Pulmonary Progress Note Seen on 02/09/2021 HPI Patient is a 60 man with prior h/o COPD, CPS/bipolar DO, prior DVT/PE on AC, NHR, DM2, HTN and hydrocephalus,admitted with severe Covid19 Pneumonia. ID following, on AB, s/p REM + SM previously, CXR with bilateral infiltrates/trach Fevers settled,has incr WCC - AB/ID Stable on Ventilator PEEP at 5,maintaining O2 sats, FIO2 - 40%, s/p Tracheostomy, sp G tube, PICC line DC New Pulmonary infiltrates, fever, AB broadened by ID,cultures pending ABG noted AC18 Allergies: Coded Allergies: No Known Allergies (Unverified , 01/02/21) PMH: COPD, CPS/bipolar DO, prior DVT/PE on AC, DM2, HTN and hydrocephalus Physical Exam Deferred Covid19 Vital Signs noted Laboratory Tests noted Imaging noted Height (Feet): 5 Height (Inches): 5.00 Weight (Pounds): 233 Medications Medications noted Assessment/Plan Problem List: (1) Pneumonia due to COVID-19 virus ICD Codes: U07.1 - COVID-19; J12.82 - Pneumonia due to coronavirus disease 2018 SNOMED: 244246786542405702 (2) Acute hypercapnic respiratory failure ICD Codes: J96.02 - Acute respiratory failure with hypercapnia SNOMED: 185092672 (3) Respiratory failure with hypoxia ICD Codes: J96.91 - Respiratory failure, unspecified with hypoxia SNOMED: 66356573756166312 Qualifiers: Qualified Codes: J96.01 - Acute respiratory failure with hypoxia (4) COPD (chronic obstructive pulmonary disease) ICD Codes: J44.9 - Chronic obstructive pulmonary disease, unspecified SNOMED: 76270164 (5) History of deep venous thrombosis or pulmonary embolus SNOMED: 096214889 (6) Obesity ICD Codes: E66.9 - Obesity, unspecified SNOMED: 354310298, 081954554 (7) Essential hypertension ICD Codes: I10 - Essential (primary) hypertension SNOMED: 26910681 (8) Diabetes mellitus type 2 in obese ICD Codes: E11.69 - Type 2 diabetes mellitus with other specified complication; E66.9 - Obesity, unspecified SNOMED: 15053982 (9) History of hydrocephalus ICD Codes: Z86.69 - Personal history of other diseases of the nervous system and sense organs SNOMED: 370304962 (10) Schizophrenia ICD Codes: F20.9 - Schizophrenia, unspecified SNOMED: 77864015 (11) Bipolar 1 disorder ICD Codes: F31.9 - Bipolar disorder, unspecified SNOMED: 079394964 (12) Anticoagulant long-term use ICD Codes: Z79.01 - residential (current) use of anticoagulants SNOMED: 932488208 Assessment/Plan: ACVC - adjust PRN ABG PRN Adjust FiO2 to keep SaO2 > 92% Wean as tolerated - SIMV Sedation PRN HFA's Weaned off SM Abx per ID-broadened F/U Cx's DVT Px: Coumadin sandra TF FC GT Trach SDU LTACplacement Seen on 02/09/2021 Anuel Luis MD Feb 10, 2021 16:50
[2021-02-10] MEDS ORDERED: Warfarin Sod 5 MG, Warfarin Sod 2.5 MG ORAL SCH ×2 (17:00)
[2021-02-10] MEDS ORDERED: Tubing IV Secondary IV ONE (17:36)
[2021-02-10] MEDS ORDERED: NS 275ml ONE (17:36)
[2021-02-10 20:00] VITALS: BP 123/85
[2021-02-11] VITALS: BP 125/80
[2021-02-11] MEDS: Acetylcysteine 20% Soln 4ml HHN SCH ×4 (01:09→19:16)
[2021-02-11] MEDS: Albuterol/Ipratropium 3ml neb HHN SCH ×4 (01:09→19:16)
[2021-02-11 04:00] VITALS: BP 135/85
[2021-02-11] MEDS ORDERED: Vancomycin 1.25gm/Ns 275 ML IVPB SCH ×2 (05:00)
[2021-02-11 05:50] LABS: BASOPHILS % (AUTO) 4.1 % (0.0-2.0); EOSINOPHILS % (AUTO) 1.2 % (0.0-3.0); HEMATOCRIT 33.8 % (42.0-52.0); HEMOGLOBIN 10.5 G/DL (14.2-18.0); LYMPHOCYTES % (AUTO) 13.7 % (20.0-45.0); MEAN CORPUSCULAR VOLUME 90 FL (80-99); MONOCYTES % (AUTO) 13.3 % (1.0-10.0); NEUTROPHILS % (AUTO) 67.7 % (45.0-75.0); PLATELET COUNT 618 K/UL (150-450); RED BLOOD COUNT 3.75 M/UL (4.70-6.10); WHITE BLOOD COUNT 9.3 K/UL (4.8-10.8)
[2021-02-11 05:55] LABS: INR 1.6 (0.9-1.1)
[2021-02-11] MEDS: NovoLOG Insulin Flexpen SUBQ SCH ×4 (06:00→17:34)
[2021-02-11 06:03] LABS: ANION GAP 9 mmol/L (5-15); BLOOD UREA NITROGEN 9 mg/dL (7-18); CALCIUM 9.8 MG/DL (8.5-10.1); CARBON DIOXIDE 29 MMOL/L (21-32); CHLORIDE 99 MMOL/L (98-107); CREATININE 0.7 MG/DL (0.55-1.30); POTASSIUM 4.3 MMOL/L (3.5-5.1); SODIUM 137 MMOL/L (136-145)
[2021-02-11] MEDS: Midodrine 10mg tab ORAL SCH ×3 (06:30→21:40)
[2021-02-11] MEDS: Cefepime HCl 1 GM in D5W 55 ML IVPB SCH ×3 (06:46→21:40)
[2021-02-11] MEDS ORDERED: Warfarin Sod 5 MG, Warfarin Sod 2.5 MG ORAL SCH ×4 (07:00→17:00)
[2021-02-11 08:00] VITALS: BP 125/72
[2021-02-11] MEDS: Valproic Acid 250mg/5ml Liquid GT SCH ×2 (08:34→20:31)
--- NOTE | 2021-02-11 09:02 | Infectious Diseases Prog Note ---
Assessment/Plan 60yo M with: Fever to 101, new 02/09 Increased secretions, possible VAP 02/09 UA 60/80 WBC, UCx p BCx ordered Resp cx ordered CXR: There is been interval worsening of moderate diffuse alveolar infiltrate throughout the left lung as well as worsening mild right lower lobe infiltrate consistent with bilateral pneumonia. Septic Shock Recurrent Gram positive bacteremia r/o line infection -01/25 Bcx 2/ sets GPC clusters Staph epi bacteremia ? infected fem line , Sp removal 02/01 01/10 BCx / +Staph epi 01/13 BCx Neg 01/25 BCx CoNS /2 01/28 BCx - CoNS /01/31/21 BCx - NGTD 02/02/21 BCx - 12/01 GPC 02/04/21 BCx - NGTD COVID pna, severe Acute hypoxia 01/01 COVID pna >> intubated 01/06- 50% FIo2 Febrile to 103; imporving Normal WBC Elevated AST 51 01/01 Tested positive for COVID at [facility] 01/02 COVID PCR positive 01/02 BCx NTD CXR: Multifocal pna MRSA nares neg 01/06 Intubated in ICU CXR: 1. Appropriately positioned endotracheal and enteric tubes. 2. Stable bilateral airspace disease. 01/07 Resp cx +Yasmine albicans (colonizer) 01/11 CXR: Interval improved bilateral lung aeration. Bibasilar infiltrates/atelectasis. Cr 1.1 PICC placement HIV screen neg PMH: DM2 COPD HTN SNF resident PICC placed 01/30/21 Plan: Cont Vancomycin IV #18 Cont Cefepime #2/ pend Cx Given fever: Labs today BCx UA/UCx CXR, reviewed Resp cx 02/01/21 SP Zosyn #7 01/22/21 steroids #19, on methylpred 20 IV q12 - defer course to Pu lm/Primary, now tapering 01/19/21 SP Zosyn #10 01/14 SP vanco IV #1 01/09 SP CTX #7 01/07 SP azithro #5, RDV #5 This institution does not have access to convalescent plasma and only recommended to give in setting of clinical trial Monitor temp curve, hemodynamics Monitor resp status D/w RN Thank you for this consult. [facility] will continue to follow. Subjective Allergies: Coded Allergies: No Known Allergies (Unverified , 01/02/21) Afebrile 48hr Remains on Vent 40% O2 Mild Leukocytosis resolved Objective Last 24 Hour Vital Signs Date Time Temp Pulse Resp B/P (MAP) Pulse Ox O2 Delivery O2 Flow Rate FiO2 02/11/21 08:00 99.0 100 24 125/72 (89) 94 02/11/21 07:56 40 02/11/21 07:56 80 02/11/21 07:50 Mechanical Ventilator 02/11/21 06:30 106 26 02/11/21 04:00 97 02/11/21 04:00 Mechanical Ventilator 02/11/21 04:00 40 02/11/21 04:00 99.4 94 22 135/85 (102) 99 02/11/21 03:20 100 26 40 02/11/21 01:09 95 19 100 02/11/21 00:00 98.4 94 24 125/80 (95) 100 02/11/21 00:00 40 02/11/21 00:00 40 02/11/21 00:00 94 02/11/21 00:00 Mechanical Ventilator 02/10/21 23:24 82 25 40 02/10/21 20:10 40 02/10/21 20:00 97 02/10/21 20:00 97.9 100 22 123/85 (98) 100 02/10/21 19:55 Mechanical Ventilator 02/10/21 19:00 78 27 100 Mechanical Ventilator 40 80 27 02/10/21 16:00 40 02/10/21 16:00 98 02/10/21 16:00 Mechanical Ventilator 02/10/21 16:00 99.3 100 22 106/73 (84) 100 02/10/21 15:00 97 27 40 02/10/21 14:04 104 21 100 Mechanical Ventilator 40 106 21 40 02/10/21 12:00 98.2 111 20 105/68 (80) 100 02/10/21 12:00 Mechanical Ventilator 02/10/21 12:00 93 02/10/21 12:00 40 02/10/21 11:10 95 02/10/21 10:50 40 Height (Feet): 5 Height (Inches): 5.00 Weight (Pounds): 223 Gen: On Vent 40% O2 HEENT: NCAT, Trach Pulm: BL chest rise, RRR Skin: No visible rashes Abd Soft, ND, PEG ( No E/P) Neuro: Opens eyes Lines STEPHANIE PICC lines in place Microbiology Date/Time Source Procedure Growth Status 02/10/21 16:00 Stool Clostridium difficile Toxin Assay - Final Complete 02/09/21 17:00 Sputum Gram Stain - Final Resulted 02/09/21 17:00 Sputum Culture - Preliminary Gram Negative Bacillus 1 Resulted 02/09/21 08:51 Urine,Clean Catch Urine Culture - Preliminary NO GROWTH Resulted Laboratory Tests Test 02/10/21 11:02 02/11/21 03:09 02/11/21 04:05 Arterial Blood pH 7.447 (7.350-7.450) Arterial Blood Partial Pressure CO2 38.0 mmHg (35.0-45.0) Arterial Blood Partial Pressure O2 91.4 mmHg (75.0-100.0) Arterial Blood HCO3 25.6 mmol/L (22.0-26.0) Arterial Blood Oxygen Saturation 96.8 % (95-100) Arterial Blood Base Excess 1.6 (-2-2) Miguelito Test Positive Vancomycin Level Trough 13.8 ug/mL (5.0-12.0) H White Blood Count 9.3 K/UL (4.8-10.8) Red Blood Count 3.75 M/UL (4.70-6.10) L Hemoglobin 10.5 G/DL (14.2-18.0) L Hematocrit 33.8 % (42.0-52.0) L Mean Corpuscular Volume 90 FL (80-99) Mean Corpuscular Hemoglobin 28.0 PG (27.0-31.0) Mean Corpuscular Hemoglobin Concent 31.1 G/DL (32.0-36.0) L Red Cell Distribution Width 16.0 % (11.6-14.8) H Platelet Count 618 K/UL (150-450) H Mean Platelet Volume 7.3 FL (6.5-10.1) Neutrophils (%) (Auto) 67.7 % (45.0-75.0) Lymphocytes (%) (Auto) 13.7 % (20.0-45.0) L Monocytes (%) (Auto) 13.3 % (1.0-10.0) H Eosinophils (%) (Auto) 1.2 % (0.0-3.0) Basophils (%) (Auto) 4.1 % (0.0-2.0) H Prothrombin Time 17.5 SEC (9.30-11.50) H Prothromb Time International Ratio 1.6 (0.9-1.1) H Sodium Level 137 MMOL/L (136-145) Potassium Level 4.3 MMOL/L (3.5-5.1) Chloride Level 99 MMOL/L (98-107) Carbon Dioxide Level 29 MMOL/L (21-32) Anion Gap 9 mmol/L (5-15) Blood Urea Nitrogen 9 mg/dL (7-18) Creatinine 0.7 MG/DL (0.55-1.30) Estimat Glomerular Filtration Rate > 60 mL/min (>60) Glucose Level 120 MG/DL (74-106) H Calcium Level 9.8 MG/DL (8.5-10.1) Current Medications Medications (Trade) Dose Ordered Sig/Johnny Route PRN Reason Start Time Stop Time Status Last Admin Dose Admin Acetaminophen (Tylenol) 650 mg Q6H PRN GT Temp >100.5 02/09/21 08:15 03/11/21 08:14 02/09/21 09:27 Acetylcysteine (Mucomyst) 200 mg Q6HRT N 02/03/21 13:00 05/04/21 12:59 02/11/21 07:40 Albuterol/ Ipratropium (Albuterol/ Ipratropium) 3 ml Q6HRT N 02/08/21 13:45 02/13/21 13:44 02/11/21 07:40 Cefepime HCl 1 gm/ Dextrose 55 ml @ 110 mls/hr EVERY 8 HOURS IVPB 02/09/21 09:30 02/16/21 09:29 02/11/21 06:46 Dextrose (Dextrose 50%) 25 ml Q30M PRN IV Hypoglycemia 01/06/21 23:45 04/06/21 23:44 Dextrose (Dextrose 50%) 50 ml Q30M PRN IV Hypoglycemia 01/06/21 23:45 04/06/21 23:44 Hydromorphone HCl (Dilaudid) 0.5 mg Q2H PRN IVP Severe Pain (Pain Scale 7-10) 02/06/21 13:42 02/13/21 13:41 02/10/21 04:47 Insulin Aspart (NovoLOG) EVERY 6 HOURS SUBQ 01/09/21 12:00 04/04/21 16:29 02/10/21 12:57 Lansoprazole (Prevacid) 30 mg DAILY GT 01/24/21 09:00 02/15/21 08:59 02/11/21 08:34 Lorazepam (Ativan 2mg/ml 1ml) 0.5 mg Q6H PRN IV For Seizures 02/05/21 03:15 02/12/21 03:14 02/05/21 03:55 Lorazepam (Ativan 2mg/ml 1ml) 1 mg Q2H PRN IV For Anxiety 02/06/21 08:15 02/13/21 08:14 02/06/21 11:58 Metoclopramide HCl (Reglan) 5 mg Q6H PRN IVP Nausea & Vomiting 02/06/21 00:15 03/08/21 00:14 Midodrine (Pro-Amatine) 10 mg Q8HR ORAL 01/20/21 14:00 04/20/21 13:59 02/11/21 06:30 Ondansetron HCl (Zofran) 4 mg Q6H PRN IVP Nausea & Vomiting 02/06/21 00:15 03/08/21 00:14 Potassium Chloride (K-Dur) 20 meq TWICE A DAY NG 01/20/21 13:00 04/20/21 12:59 02/11/21 08:34 Quetiapine Fumarate (SEROqueL) 100 mg Q12HR ORAL 01/20/21 15:00 03/06/21 14:59 02/11/21 08:34 Valproic Acid (Depakene) 500 mg Q12HR GT 01/22/21 21:00 02/21/21 20:59 02/11/21 08:34 Vancomycin HCl 250 ml @ 166.667 mls/hr Q8H IVPB 02/11/21 13:00 02/16/21 12:59 Vancomycin HCl (Vanco pharmacy to dose) 1 ea DAILY PRN MISC Per rx protocol 01/25/21 08:15 02/24/21 08:14 Warfarin Sodium (Coumadin per pharmacy) 1 ea DAILY PRN MISC . 02/07/21 17:00 03/09/21 16:59 Warfarin Sodium (Coumadin) 7.5 mg ONCE ORAL 02/11/21 17:00 02/11/21 18:00 Anuel Crespo MD Feb 11, 2021 09:02
[2021-02-11] MEDS ORDERED: Lidocaine 1% Plain 30 ml INJ PRN (11:09)
[2021-02-11] MEDS ORDERED: Heparin1,000 units/500ml Premix(Conc:2 units/ml) IV PRN (11:10)
--- NOTE | 2021-02-11 11:11 | Nephrology Progress Note ---
Assessment/Plan Problem List: (1) Hyperkalemia (2) Pneumonia due to COVID-19 virus (3) Respiratory failure with hypoxia (4) Obesity (5) Schizophrenia (6) DMII (diabetes mellitus, type 2) Assessment Hyperkalemia Stable renal parameters Hyperglycemia Covid pneumonia due to COVID-19 virus Acute respiratory failure with hypoxia requiring mechanical ventilation History of COPD History of DVT, pulmonary emboli Obese Hypertension History of diabetes Psych condition, schizophrenia, bipolar disease Plan February 11: Labs reviewed. Renal parameters stable. Overall status unchanged. Patient is full code. Continue per consultants. February 10: Status unchanged. Full code. Trach to vent. Labs reviewed. Stable from renal standpoint of view. February 09: Labs reviewed. Renal parameters stable. Trach, vent, PEG, full code. February 08: Labs reviewed. Renal parameters stable. Tracheostomy to vent. Full code. Continue per consultants. February 07: Labs reviewed. Renal parameters stable. Patient is trach connected to vent has a PEG and is full code. Continue per consultants. February 06: Full code. Intubated on ventilator. Had tracheostomy. Due for PEG. Continue as is. February 05: Full code. Intubated on ventilator. Due for tracheostomy today as per RN. Renal parameters stable. Continue as is. February 04: Remains full code. Intubated on ventilator. FiO2 40%. Due for tracheostomy. Stable from renal standpoint of view. February 03: Remains intubated on ventilator. FiO2 40%. Discussed with RN. Patient is planned to have tracheostomy. Labs reviewed. Renal parameters stable. February 02: Status quo. Full code. Intubated on ventilator. FiO2 40%. Renal parameters stable. February 01: Status quo. FiO2 40%. Full code. Labs reviewed. Renal parameters stable. January 31: Status quo. FiO2 45%. Full code. Renal parameters stable. Abnormal electrolytes addressed. January 30: Status quo. Remains full code. Intubated. On ventilator. Low magnesium addressed. Continue per consultants. January 29: Status quo. Labs reviewed. Low magnesium addressed. Discussed with JOHAN Ratliff. Continue per consultants. January 28: Status quo. Labs and medication list reviewed. K-Phos supplement ordered. Continue per current treatment plan. January 27: Patient remains full code. Intubated on ventilator. FiO2 50%. Labs reviewed. Renal parameters stable. Medication list reviewed. January 26: Full code. Intubated. On ventilator. FiO2 65%. No CHEM panel drawn today. Continue per consultants. January 25: Status unchanged. Blood pressure low. Remains full code on ventilator. Continue per consultants. Medication list reviewed. INR is 3.8 today. January 24: Status quo. Intubated on ventilator and full code. Labs reviewed. Medication list reviewed. Continue per consultants. January 23: Patient on prone position. IntubatedFiO2 65%. Renal parameters stable. Continue per consultants. Date hospitalization. Possible trach?. January 22: FiO2 50%. Prone position. Labs reviewed. Stable from renal standpoint of view. Continue per consultants. January 21: Full code. Intubated on ventilator. FiO2 40%. Labs reviewed. Renal parameters stable. Continue per consultants. January 20: Status unchanged. Full code. On ventilator. Chest x-ray reviewed. IV fluid discontinued. Potassium supplement given. 1 dose of Lasix given. Albumin bolus given. Midodrine started. Will monitor renal parameters and electrolytes. Discussed with JOHAN Mohamud. January 19: Labs reviewed. Renal parameters stable. Remains full code intubated on ventilator. FiO2 50%. Continue per consultants. January 18: Full code. Intubated. On ventilator. FiO2 down to 35%. No labs drawn today. Continue to monitor renal parameters and electrolytes. January 17: Full code. Intubated on ventilator. FiO2 remains at 60%. Labs reviewed. Renal parameters stable. January 16: Full code. Intubated. Labs reviewed. Renal parameters stable. FiO2 60%. Continue per consultants. January 15: Patient remains intubated and full code. Labs reviewed. Stable renal parameters. January 14: Patient full code. Intubated on ventilator. On prone position until 5 PM. Labs reviewed. Stable from renal standpoint of view. January 13: Labs reviewed. Renal parameters stable. Continue per consultants. Patient remain full code and intubated on ventilator. January 12: Labs reviewed. Renal parameters stable. Patient remains full code. Remains intubated on ventilator and on prone position. Continue per consultants. January 11: Labs reviewed. Renal parameters stable. Continue per consultants. January 10: Labs reviewed. Renal parameters stable. Continue per consultants. Change IV to half-normal saline Kayexalate via NG tube for high potassium Monitor electrolytes and renal parameters Per orders, per consultants Subjective ROS Limited/Unobtainable: Yes Objective Objective Last 24 Hour Vital Signs Date Time Temp Pulse Resp B/P (MAP) Pulse Ox O2 Delivery O2 Flow Rate FiO2 02/11/21 08:40 40 02/11/21 08:00 99.0 100 24 125/72 (89) 94 02/11/21 07:56 40 02/11/21 07:56 80 02/11/21 07:50 Mechanical Ventilator 02/11/21 06:30 106 26 02/11/21 04:00 97 02/11/21 04:00 Mechanical Ventilator 02/11/21 04:00 40 02/11/21 04:00 99.4 94 22 135/85 (102) 99 02/11/21 03:20 100 26 40 02/11/21 01:09 95 19 100 02/11/21 00:00 98.4 94 24 125/80 (95) 100 02/11/21 00:00 40 02/11/21 00:00 40 02/11/21 00:00 94 02/11/21 00:00 Mechanical Ventilator 02/10/21 23:24 82 25 40 02/10/21 20:10 40 02/10/21 20:00 97 02/10/21 20:00 97.9 100 22 123/85 (98) 100 02/10/21 19:55 Mechanical Ventilator 02/10/21 19:00 78 27 100 Mechanical Ventilator 40 80 27 02/10/21 16:00 40 02/10/21 16:00 98 02/10/21 16:00 Mechanical Ventilator 02/10/21 16:00 99.3 100 22 106/73 (84) 100 02/10/21 15:00 97 27 40 02/10/21 14:04 104 21 100 Mechanical Ventilator 40 106 21 40 02/10/21 12:00 98.2 111 20 105/68 (80) 100 02/10/21 12:00 Mechanical Ventilator 02/10/21 12:00 93 02/10/21 12:00 40 02/10/21 11:10 95 Intake and Output 02/10/21 02/11/21 19:00 07:00 Intake Total 860 ml 1000.000 ml Output Total 800 ml 1400 ml Balance 60 ml -400.000 ml Free Water 260 ml 120 ml IV Total 330.000 ml Tube Feeding 600 ml 550 ml Output Urine Total 800 ml 1400 ml # Voids 1 # Bowel Movements 5 1 Current Medications Medications (Trade) Dose Ordered Sig/Johnny Route PRN Reason Start Time Stop Time Status Last Admin Dose Admin Acetaminophen (Tylenol) 650 mg Q6H PRN GT Temp >100.5 02/09/21 08:15 03/11/21 08:14 02/09/21 09:27 Acetylcysteine (Mucomyst) 200 mg Q6HRT HHN 02/03/21 13:00 05/04/21 12:59 02/11/21 07:40 Albuterol/ Ipratropium (Albuterol/ Ipratropium) 3 ml Q6HRT HHN 02/08/21 13:45 02/13/21 13:44 02/11/21 07:40 Cefepime HCl 1 gm/ Dextrose 55 ml @ 110 mls/hr EVERY 8 HOURS IVPB 02/09/21 09:30 02/16/21 09:29 02/11/21 06:46 Dextrose (Dextrose 50%) 25 ml Q30M PRN IV Hypoglycemia 01/06/21 23:45 04/06/21 23:44 Dextrose (Dextrose 50%) 50 ml Q30M PRN IV Hypoglycemia 01/06/21 23:45 04/06/21 23:44 Heparin Sodium/ Sodium Chloride (Heparin 1000 units/500ml Premix) 1,000 unit ONCE ONCE IV 02/11/21 11:15 02/11/21 11:16 UNV Hydromorphone HCl (Dilaudid) 0.5 mg Q2H PRN IVP Severe Pain (Pain Scale 7-10) 02/06/21 13:42 02/13/21 13:41 02/10/21 04:47 Insulin Aspart (NovoLOG) EVERY 6 HOURS SUBQ 01/09/21 12:00 04/04/21 16:29 02/10/21 12:57 Lansoprazole (Prevacid) 30 mg DAILY GT 01/24/21 09:00 02/15/21 08:59 02/11/21 08:34 Lidocaine (Xylocaine 1% MPF 5ml) 30 ml ONCE ONCE INJ 02/11/21 11:15 02/11/21 11:16 UNV Lorazepam (Ativan 2mg/ml 1ml) 0.5 mg Q6H PRN IV For Seizures 02/05/21 03:15 02/12/21 03:14 02/05/21 03:55 Lorazepam (Ativan 2mg/ml 1ml) 1 mg Q2H PRN IV For Anxiety 02/06/21 08:15 02/13/21 08:14 02/06/21 11:58 Metoclopramide HCl (Reglan) 5 mg Q6H PRN IVP Nausea & Vomiting 02/06/21 00:15 03/08/21 00:14 Midodrine (Pro-Amatine) 10 mg Q8HR ORAL 01/20/21 14:00 04/20/21 13:59 02/11/21 06:30 Ondansetron HCl (Zofran) 4 mg Q6H PRN IVP Nausea & Vomiting 02/06/21 00:15 03/08/21 00:14 Potassium Chloride (K-Dur) 20 meq TWICE A DAY NG 01/20/21 13:00 04/20/21 12:59 02/11/21 08:34 Quetiapine Fumarate (SEROqueL) 100 mg Q12HR ORAL 01/20/21 15:00 03/06/21 14:59 02/11/21 08:34 Valproic Acid (Depakene) 500 mg Q12HR GT 01/22/21 21:00 02/21/21 20:59 02/11/21 08:34 Vancomycin HCl 250 ml @ 166.667 mls/hr Q8H IVPB 02/11/21 13:00 02/16/21 12:59 Vancomycin HCl (Vanco pharmacy to dose) 1 ea DAILY PRN MISC Per rx protocol 01/25/21 08:15 02/24/21 08:14 Warfarin Sodium (Coumadin per pharmacy) 1 ea DAILY PRN MISC . 02/07/21 17:00 03/09/21 16:59 Warfarin Sodium (Coumadin) 7.5 mg ONCE ORAL 02/11/21 17:00 02/11/21 18:00 Laboratory Tests 02/11/21 03:09: Vancomycin Level Trough 13.8H 02/11/21 04:05: White Blood Count 9.3, Red Blood Count 3.75L, Hemoglobin 10.5L, Hematocrit 33.8L , Mean Corpuscular Volume 90, Mean Corpuscular Hemoglobin 28.0, Mean Corpuscular Hemoglobin Concent 31.1L, Red Cell Distribution Width 16.0H, Platelet Count 618H , Mean Platelet Volume 7.3, Neutrophils (%) (Auto) 67.7, Lymphocytes (%) (Auto) 13.7L, Monocytes (%) (Auto) 13.3H, Eosinophils (%) (Auto) 1.2, Basophils (%) (Auto) 4.1H, Prothrombin Time 17.5H, Prothromb Time International Ratio 1.6H, Sodium Level 137, Potassium Level 4.3, Chloride Level 99, Carbon Dioxide Level 29, Anion Gap 9, Blood Urea Nitrogen 9, Creatinine 0.7, Estimat Glomerular Filtration Rate > 60, Glucose Level 120H, Calcium Level 9.8 Height (Feet): 5 Height (Inches): 5.00 Weight (Pounds): 223 General Appearance: no apparent distress Cardiovascular: tachycardia Respiratory/Chest: decreased breath sounds Abdomen: distended Avi Frye MD Feb 11, 2021 11:11
[2021-02-11 12:00] VITALS: BP 129/88
[2021-02-11] MEDS: Acetaminophen 650mg/20.3ml GT PRN (12:22)
--- NOTE | 2021-02-11 13:12 | General Progress Note ---
Subjective ROS Limited/Unobtainable: No Allergies: Coded Allergies: No Known Allergies (Unverified , 01/02/21) Objective Last 24 Hour Vital Signs Date Time Temp Pulse Resp B/P (MAP) Pulse Ox O2 Delivery O2 Flow Rate FiO2 02/11/21 12:00 100.6 105 25 129/88 (102) 94 02/11/21 11:50 Mechanical Ventilator 02/11/21 11:25 105 02/11/21 11:00 101 23 40 02/11/21 08:45 106 26 40 02/11/21 08:40 40 02/11/21 08:00 99.0 100 24 125/72 (89) 94 02/11/21 07:56 40 02/11/21 07:56 80 02/11/21 07:55 80 20 100 Mechanical Ventilator 40 82 20 40 02/11/21 07:50 Mechanical Ventilator 02/11/21 06:30 106 26 02/11/21 04:00 97 02/11/21 04:00 Mechanical Ventilator 02/11/21 04:00 40 02/11/21 04:00 99.4 94 22 135/85 (102) 99 02/11/21 03:20 100 26 40 02/11/21 01:09 95 19 100 02/11/21 00:00 98.4 94 24 125/80 (95) 100 02/11/21 00:00 40 02/11/21 00:00 40 02/11/21 00:00 94 02/11/21 00:00 Mechanical Ventilator 02/10/21 23:24 82 25 40 02/10/21 20:10 40 02/10/21 20:00 97 02/10/21 20:00 97.9 100 22 123/85 (98) 100 02/10/21 19:55 Mechanical Ventilator 02/10/21 19:00 78 27 100 Mechanical Ventilator 40 80 27 02/10/21 16:00 40 02/10/21 16:00 98 02/10/21 16:00 Mechanical Ventilator 02/10/21 16:00 99.3 100 22 106/73 (84) 100 02/10/21 15:00 97 27 40 02/10/21 14:04 104 21 100 Mechanical Ventilator 40 106 21 40 Intake and Output 02/10/21 02/11/21 19:00 07:00 Intake Total 860 ml 1000.000 ml Output Total 800 ml 1400 ml Balance 60 ml -400.000 ml Free Water 260 ml 120 ml IV Total 330.000 ml Tube Feeding 600 ml 550 ml Output Urine Total 800 ml 1400 ml # Voids 1 # Bowel Movements 5 1 Laboratory Tests 02/11/21 03:09: Vancomycin Level Trough 13.8H 02/11/21 04:05: White Blood Count 9.3, Red Blood Count 3.75L, Hemoglobin 10.5L, Hematocrit 33.8L , Mean Corpuscular Volume 90, Mean Corpuscular Hemoglobin 28.0, Mean Corpuscular Hemoglobin Concent 31.1L, Red Cell Distribution Width 16.0H, Platelet Count 618H , Mean Platelet Volume 7.3, Neutrophils (%) (Auto) 67.7, Lymphocytes (%) (Auto) 13.7L, Monocytes (%) (Auto) 13.3H, Eosinophils (%) (Auto) 1.2, Basophils (%) (Auto) 4.1H, Prothrombin Time 17.5H, Prothromb Time International Ratio 1.6H, Sodium Level 137, Potassium Level 4.3, Chloride Level 99, Carbon Dioxide Level 29, Anion Gap 9, Blood Urea Nitrogen 9, Creatinine 0.7, Estimat Glomerular Dandre tration Rate > 60, Glucose Level 120H, Calcium Level 9.8 Height (Feet): 5 Height (Inches): 5.00 Weight (Pounds): 223 General Appearance: no apparent distress EENT: normal ENT inspection Neck: supple Cardiovascular: normal rate Respiratory/Chest: decreased breath sounds Abdomen: hypoactive bowel sounds Extremities: non-tender Assessment/Plan Problem List: (1) Schizophrenia, paranoid type ICD Codes: F20.0 - Paranoid schizophrenia SNOMED: 84541215 (2) DMII (diabetes mellitus, type 2) ICD Codes: E11.9 - Type 2 diabetes mellitus without complications SNOMED: 22433311 (3) Obesity ICD Codes: E66.9 - Obesity, unspecified SNOMED: 868484784, 851453208 (4) COPD (chronic obstructive pulmonary disease) ICD Codes: J44.9 - Chronic obstructive pulmonary disease, unspecified SNOMED: 43708238 (5) Essential hypertension ICD Codes: I10 - Essential (primary) hypertension SNOMED: 85446706 Status: unchanged Assessment/Plan: s/p trach s/p GT placement GTF colace and miralax pending placement Carlos Malhorta MD Feb 11, 2021 13:12
--- NOTE | 2021-02-11 14:33 | Surgery Progress Note ---
Surgery Progress Note Subjective Procedure Performed tracheostomy Symptoms: improved, tolerating diet, passing flatus Additional Comments labs improved d/c planning Objective Last 24 Hour Vital Signs Date Time Temp Pulse Resp B/P (MAP) Pulse Ox O2 Delivery O2 Flow Rate FiO2 02/11/21 12:52 100.0 02/11/21 12:00 100.6 105 25 129/88 (102) 94 02/11/21 11:50 Mechanical Ventilator 02/11/21 11:25 105 02/11/21 11:00 101 23 40 02/11/21 08:45 106 26 40 02/11/21 08:40 40 02/11/21 08:00 99.0 100 24 125/72 (89) 94 02/11/21 07:56 40 02/11/21 07:56 80 02/11/21 07:55 80 20 100 Mechanical Ventilator 40 82 20 40 02/11/21 07:50 Mechanical Ventilator 02/11/21 06:30 106 26 02/11/21 04:00 97 02/11/21 04:00 Mechanical Ventilator 02/11/21 04:00 40 02/11/21 04:00 99.4 94 22 135/85 (102) 99 02/11/21 03:20 100 26 40 02/11/21 01:09 95 19 100 02/11/21 00:00 98.4 94 24 125/80 (95) 100 02/11/21 00:00 40 02/11/21 00:00 40 02/11/21 00:00 94 02/11/21 00:00 Mechanical Ventilator 02/10/21 23:24 82 25 40 02/10/21 20:10 40 02/10/21 20:00 97 02/10/21 20:00 97.9 100 22 123/85 (98) 100 02/10/21 19:55 Mechanical Ventilator 02/10/21 19:00 78 27 100 Mechanical Ventilator 40 80 27 02/10/21 16:00 40 02/10/21 16:00 98 02/10/21 16:00 Mechanical Ventilator 02/10/21 16:00 99.3 100 22 106/73 (84) 100 02/10/21 15:00 97 27 40 I&O Intake and Output 02/10/21 02/11/21 19:00 07:00 Intake Total 860 ml 1000.000 ml Output Total 800 ml 1400 ml Balance 60 ml -400.000 ml Free Water 260 ml 120 ml IV Total 330.000 ml Tube Feeding 600 ml 550 ml Output Urine Total 800 ml 1400 ml # Voids 1 # Bowel Movements 5 1 Dressing: saturated Cardiovascular: RSR Respiratory: decreased breath sounds Abdomen: soft, flat, non-tender, present bowel sounds, non-distended Extremities: no edema, no tenderness, no cyanosis Laboratory Tests Test 02/11/21 03:09 02/11/21 04:05 Vancomycin Level Trough 13.8 ug/mL (5.0-12.0) H White Blood Count 9.3 K/UL (4.8-10.8) Red Blood Count 3.75 M/UL (4.70-6.10) L Hemoglobin 10.5 G/DL (14.2-18.0) L Hematocrit 33.8 % (42.0-52.0) L Mean Corpuscular Volume 90 FL (80-99) Mean Corpuscular Hemoglobin 28.0 PG (27.0-31.0) Mean Corpuscular Hemoglobin Concent 31.1 G/DL (32.0-36.0) L Red Cell Distribution Width 16.0 % (11.6-14.8) H Platelet Count 618 K/UL (150-450) H Mean Platelet Volume 7.3 FL (6.5-10.1) Neutrophils (%) (Auto) 67.7 % (45.0-75.0) Lymphocytes (%) (Auto) 13.7 % (20.0-45.0) L Monocytes (%) (Auto) 13.3 % (1.0-10.0) H Eosinophils (%) (Auto) 1.2 % (0.0-3.0) Basophils (%) (Auto) 4.1 % (0.0-2.0) H Prothrombin Time 17.5 SEC (9.30-11.50) H Prothromb Time International Ratio 1.6 (0.9-1.1) H Sodium Level 137 MMOL/L (136-145) Potassium Level 4.3 MMOL/L (3.5-5.1) Chloride Level 99 MMOL/L (98-107) Carbon Dioxide Level 29 MMOL/L (21-32) Anion Gap 9 mmol/L (5-15) Blood Urea Nitrogen 9 mg/dL (7-18) Creatinine 0.7 MG/DL (0.55-1.30) Estimat Glomerular Filtration Rate > 60 mL/min (>60) Glucose Level 120 MG/DL (74-106) H Calcium Level 9.8 MG/DL (8.5-10.1) Plan Problems: (1) COPD (chronic obstructive pulmonary disease) (2) Essential hypertension (3) Schizophrenia (4) Obesity (5) Diabetes mellitus type 2 in obese (6) History of hydrocephalus (7) Anticoagulant long-term use (8) Bipolar 1 disorder (9) History of deep venous thrombosis or pulmonary embolus (10) Acute hypercapnic respiratory failure (11) Sepsis Assessment & Plan: 60-year-old male Covid positive respiratory insufficiency and severe decline being prone intubated on vent support labs noted septic ill- appearing has been developing wound around the face from ET tube.Receiv ed report from RT pt is being proned and was observed to have developed a blood blister under vent tape on L cheek and L earlobe. Skin assessed and pt was observed to have a blood blister that is 50% de-capped,50% intact. Intact Blood Blister noted to L earlobe. Skin Barrier applied to affected areas. Optifoam Thin foam placed between vent anchor and pt's skin. Optifoam thin placed to R cheek under Vent tape, on Bridge of nose and both earlobes. Given patient's critical status current care plan and findings nutritional optimization is strongly encouraged Covid nutrition plan initiated. All Covid precautions are being taken. Imaging reviewed. Will follow with care plan. Thank you [facility] participation care Tx.Plan: Maintain Optifoam Thin foam to R and L cheeks,Bridge of Nose and Both Ears . Change every 7 days and prn.( May request Optifoam Thin from [facility] dept). APM/PEPE Mattress overlay DAILY ESTIMATED NEEDS: Needs based on Critical care, pulmonary, obese 73.7kg abw 22-28 kcals/kg 1741-4070 total kcals 1.2-2 g protein/kg 88-147 g total protein 25-30 mL/kg 7422-6212 total fluid mLs NUTRITION DIAGNOSIS: Altered nutrition related lab values r/t steroidal meds, clinical status as evidenced by febrile on adm (102.5), elevated BG (270 287) on solumedrol, elevated lipid panel (Triglycerides 333, Chol 370, LDL 150). CURRENT TF:Vital @30ml/hr, now Nepro @30 ENTERAL NUTRITION RECOMMENDATIONS: NEPRO @30ml/hr while supine to provide x8 hrs feeds: 360ml, 648 kcal, 29g pro, 262ml free H2O - Feed at rate best tolerated, currently not meeting est needs d/t proning and aspiration risk w/ supine feeds limited to 8hrs/day. - W/ reduced aspiration risk rec feedings to total Volume of 900ml/day of Nepro as medically able. - Monitor tolerance, position/HOB >30 degrees, hemodynamic stability and ability to increase to meet est kcal and pro needs. - With increase pressor support, rec trophic feeds of 10ml/hr for gut integrity. - When tolerating TF at goal add Prosource BID to better meet est pro needs. ADDITIONAL RECOMMENDATIONS: 1) Now intubated, TF recs above when off proning (8hrs feeds) 2) Obtain calibrated bedscale wts 3) HgA1C/ elevated BG Need for niss while on D5 4) Lytes daily; replete as needed 5) Monitor triglycerides, TF tolerance, hemodynamic stability. (12) Respiratory failure with hypoxia Assessment & Plan: cont weaning vent wean pressors not ready for trach off pressors improving HD stable plan trach soon as unable to extubate s/p trach 02/05 peg recovering placement cont tf (13) Pneumonia due to COVID-19 virus (14) Hyperkalemia (15) DMII (diabetes mellitus, type 2) Ki Strong Feb 11, 2021 14:33
--- NOTE | 2021-02-11 15:17 | Pulmonology Progress Note ---
Subjective ROS Limited/Unobtainable: Yes Allergies: Coded Allergies: No Known Allergies (Unverified , 01/02/21) Objective Last 24 Hour Vital Signs Date Time Temp Pulse Resp B/P (MAP) Pulse Ox O2 Delivery O2 Flow Rate FiO2 02/11/21 12:52 100.0 02/11/21 12:00 100.6 105 25 129/88 (102) 94 02/11/21 11:50 Mechanical Ventilator 02/11/21 11:25 105 02/11/21 11:00 101 23 40 02/11/21 08:45 106 26 40 02/11/21 08:40 40 02/11/21 08:00 99.0 100 24 125/72 (89) 94 02/11/21 07:56 40 02/11/21 07:56 80 02/11/21 07:55 80 20 100 Mechanical Ventilator 40 82 20 40 02/11/21 07:50 Mechanical Ventilator 02/11/21 06:30 106 26 02/11/21 04:00 97 02/11/21 04:00 Mechanical Ventilator 02/11/21 04:00 40 02/11/21 04:00 99.4 94 22 135/85 (102) 99 02/11/21 03:20 100 26 40 02/11/21 01:09 95 19 100 02/11/21 00:00 98.4 94 24 125/80 (95) 100 02/11/21 00:00 40 02/11/21 00:00 40 02/11/21 00:00 94 02/11/21 00:00 Mechanical Ventilator 02/10/21 23:24 82 25 40 02/10/21 20:10 40 02/10/21 20:00 97 02/10/21 20:00 97.9 100 22 123/85 (98) 100 02/10/21 19:55 Mechanical Ventilator 02/10/21 19:00 78 27 100 Mechanical Ventilator 40 80 27 02/10/21 16:00 40 02/10/21 16:00 98 02/10/21 16:00 Mechanical Ventilator 02/10/21 16:00 99.3 100 22 106/73 (84) 100 Intake and Output 02/10/21 02/11/21 19:00 07:00 Intake Total 860 ml 1000.000 ml Output Total 800 ml 1400 ml Balance 60 ml -400.000 ml Free Water 260 ml 120 ml IV Total 330.000 ml Tube Feeding 600 ml 550 ml Output Urine Total 800 ml 1400 ml # Voids 1 # Bowel Movements 5 1 Microbiology Date/Time Source Procedure Growth Status 02/10/21 16:00 Stool Clostridium difficile Toxin Assay - Final Complete 02/09/21 17:00 Sputum Gram Stain - Final Resulted 02/09/21 17:00 Sputum Culture - Preliminary Gram Negative Bacillus 1 Resulted 02/09/21 08:51 Urine,Clean Catch Urine Culture - Preliminary NO GROWTH Resulted Laboratory Tests 02/11/21 03:09: Vancomycin Level Trough 13.8H 02/11/21 04:05: White Blood Count 9.3, Red Blood Count 3.75L, Hemoglobin 10.5L, Hematocrit 33.8L , Mean Corpuscular Volume 90, Mean Corpuscular Hemoglobin 28.0, Mean Corpuscular Hemoglobin Concent 31.1L, Red Cell Distribution Width 16.0H, Platelet Count 618H , Mean Platelet Volume 7.3, Neutrophils (%) (Auto) 67.7, Lymphocytes (%) (Auto) 13.7L, Monocytes (%) (Auto) 13.3H, Eosinophils (%) (Auto) 1.2, Basophils (%) (Auto) 4.1H, Prothrombin Time 17.5H, Prothromb Time International Ratio 1.6H, Sodium Level 137, Potassium Level 4.3, Chloride Level 99, Carbon Dioxide Level 29, Anion Gap 9, Blood Urea Nitrogen 9, Creatinine 0.7, Estimat Glomerular Filtration Rate > 60, Glucose Level 120H, Calcium Level 9.8 Current Medications Medications (Trade) Dose Ordered Sig/Johnny Route PRN Reason Start Time Stop Time Status Last Admin Dose Admin Acetaminophen (Tylenol) 650 mg Q6H PRN GT Temp >100.5 02/09/21 08:15 03/11/21 08:14 02/11/21 12:22 Acetylcysteine (Mucomyst) 200 mg Q6HRT [facility] 02/03/21 13:00 05/04/21 12:59 02/11/21 14:05 Albuterol/ Ipratropium (Albuterol/ Ipratropium) 3 ml Q6HRT N 02/08/21 13:45 02/13/21 13:44 02/11/21 14:05 Cefepime HCl 1 gm/ Dextrose 55 ml @ 110 mls/hr EVERY 8 HOURS IVPB 02/09/21 09:30 02/16/21 09:29 02/11/21 14:25 Dextrose (Dextrose 50%) 25 ml Q30M PRN IV Hypoglycemia 01/06/21 23:45 04/06/21 23:44 Dextrose (Dextrose 50%) 50 ml Q30M PRN IV Hypoglycemia 01/06/21 23:45 04/06/21 23:44 Heparin Sodium/ Sodium Chloride (Heparin 1000 units/500ml Premix) 1,000 unit ONCE PRN IV PROCEDURE 02/11/21 11:10 02/11/21 23:59 Hydromorphone HCl (Dilaudid) 0.5 mg Q2H PRN IVP Severe Pain (Pain Scale 7-10) 02/06/21 13:42 02/13/21 13:41 02/10/21 04:47 Insulin Aspart (NovoLOG) EVERY 6 HOURS SUBQ 01/09/21 12:00 04/04/21 16:29 02/11/21 12:22 Lansoprazole (Prevacid) 30 mg DAILY GT 01/24/21 09:00 02/15/21 08:59 02/11/21 08:34 Lidocaine HCl (Xylocaine 1% 30ml) 30 ml ONCE PRN INJ PROCEDURE 02/11/21 11:09 02/11/21 23:59 Lorazepam (Ativan 2mg/ml 1ml) 0.5 mg Q6H PRN IV For Seizures 02/05/21 03:15 02/12/21 03:14 02/05/21 03:55 Lorazepam (Ativan 2mg/ml 1ml) 1 mg Q2H PRN IV For Anxiety 02/06/21 08:15 02/13/21 08:14 02/06/21 11:58 Metoclopramide HCl (Reglan) 5 mg Q6H PRN IVP Nausea & Vomiting 02/06/21 00:15 03/08/21 00:14 Midodrine (Pro-Amatine) 10 mg Q8HR ORAL 01/20/21 14:00 04/20/21 13:59 02/11/21 14:25 Ondansetron HCl (Zofran) 4 mg Q6H PRN IVP Nausea & Vomiting 02/06/21 00:15 03/08/21 00:14 Potassium Chloride (K-Dur) 20 meq TWICE A DAY NG 01/20/21 13:00 04/20/21 12:59 02/11/21 08:34 Quetiapine Fumarate (SEROqueL) 100 mg Q12HR ORAL 01/20/21 15:00 03/06/21 14:59 02/11/21 08:34 Valproic Acid (Depakene) 500 mg Q12HR GT 01/22/21 21:00 02/21/21 20:59 02/11/21 08:34 Vancomycin HCl 250 ml @ 166.667 mls/hr Q8H IVPB 02/11/21 13:00 02/16/21 12:59 02/11/21 12:23 Vancomycin HCl ([facility] pharmacy to dose) 1 ea DAILY PRN MISC Per rx protocol 01/25/21 08:15 02/24/21 08:14 Warfarin Sodium (Coumadin per pharmacy) 1 ea DAILY PRN MISC . 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 ID following, on AB, s/p REM + SM previously, CXR with bilateral infiltrates/trach Fevers settled,has incr WCC - AB/ID Stable on Ventilator PEEP at 5,maintaining O2 sats, FIO2 - 40%, s/p Tracheostomy, sp G tube, tolerating SIMV trials in SDU New Pulmonary infiltrates, fever, AB broadened by ID,cultures pending ABG noted AC18 and SIMV Allergies: Coded Allergies: No Known Allergies (Unverified , 01/02/21) PMH: COPD, CPS/bipolar DO, prior DVT/PE on AC, DM2, HTN and hydrocephalus Physical Exam Deferred Covid19 Vital Signs noted Laboratory Tests noted Imaging noted Height (Feet): 5 Height (Inches): 5.00 Weight (Pounds): 233 Medications Medications noted Assessment/Plan Problem List: (1) Pneumonia due to COVID-19 virus ICD Codes: U07.1 - COVID-19; J12.82 - Pneumonia due to coronavirus disease 2019 SNOMED: 648958417728839217 (2) Acute hypercapnic respiratory failure ICD Codes: J96.02 - Acute respiratory failure with hypercapnia SNOMED: 816169625 (3) Respiratory failure with hypoxia ICD Codes: J96.91 - Respiratory failure, unspecified with hypoxia SNOMED: 15602090740994539 Qualifiers: Qualified Codes: J96.01 - Acute respiratory failure with hypoxia (4) COPD (chronic obstructive pulmonary disease) ICD Codes: J44.9 - Chronic obstructive pulmonary disease, unspecified SNOMED: 21354976 (5) History of deep venous thrombosis or pulmonary embolus SNOMED: 495351730 (6) Obesity ICD Codes: E66.9 - Obesity, unspecified SNOMED: 226686697, 545792237 (7) Essential hypertension ICD Codes: I10 - Essential (primary) hypertension SNOMED: 88983601 (8) Diabetes mellitus type 2 in obese ICD Codes: E11.69 - Type 2 diabetes mellitus with other specified complication; E66.9 - Obesity, unspecified SNOMED: 78950321 (9) History of hydrocephalus ICD Codes: Z86.69 - Personal history of other diseases of the nervous system and sense organs SNOMED: 989495554 (10) Schizophrenia ICD Codes: F20.9 - Schizophrenia, unspecified SNOMED: 80936015 (11) Bipolar 1 disorder ICD Codes: F31.9 - Bipolar disorder, unspecified SNOMED: 926116009 (12) Anticoagulant long-term use ICD Codes: Z79.01 - retirement (current) use of anticoagulants SNOMED: 722542748 Assessment/Plan: ACVC - adjust PRN ABG PRN Adjust FiO2 to keep SaO2 > 92% Wean as tolerated - SIMV Sedation PRN HFA's Weaned off SM Abx per ID-broadened F/U Cx's DVT Px: Coumadin sandra TF FC GT Trach SDU LTAC placement Seen on 02/10/2021 Anuel Luis MD Feb 11, 2021 15:17
[2021-02-11 16:00] VITALS: BP 130/89
--- NOTE | 2021-02-11 16:49 | Brief Operative Note ---
Immediate Post Operative Note Operative Note Pre-op Diagnosis: needs IV access Procedure: PICC Post-op Diagnosis: same as pre-op Surgeon: Henok Coates Anesthesia: local Specimen: none Complications: none Fluids: none Implant(s) used?: No Jose Juan Coates MD Feb 11, 2021 16:49
--- NOTE | 2021-02-11 18:17 | Internal Med Progress Note ---
Subjective Date of Service: Feb 11, 2021 Physician Name Vickey Brown Attending Physician Geovanny Bradley MD Current Medications Medications (Trade) Dose Ordered Sig/Johnny Route PRN Reason Start Time Stop Time Status Last Admin Dose Admin Acetaminophen (Tylenol) 650 mg Q6H PRN GT Temp >100.5 02/09/21 08:15 03/11/21 08:14 02/11/21 12:22 Acetylcysteine (Mucomyst) 200 mg Q6HRT HHN 02/03/21 13:00 05/04/21 12:59 02/11/21 14:05 Albuterol/ Ipratropium (Albuterol/ Ipratropium) 3 ml Q6HRT HHN 02/08/21 13:45 02/13/21 13:44 02/11/21 14:05 Cefepime HCl 1 gm/ Dextrose 55 ml @ 110 mls/hr EVERY 8 HOURS IVPB 02/09/21 09:30 02/16/21 09:29 02/11/21 14:25 Dextrose (Dextrose 50%) 25 ml Q30M PRN IV Hypoglycemia 01/06/21 23:45 04/06/21 23:44 Dextrose (Dextrose 50%) 50 ml Q30M PRN IV Hypoglycemia 01/06/21 23:45 04/06/21 23:44 Heparin Sodium/ Sodium Chloride (Heparin 1000 units/500ml Premix) 1,000 unit ONCE PRN IV PROCEDURE 02/11/21 11:10 02/11/21 23:59 Hydromorphone HCl (Dilaudid) 0.5 mg Q2H PRN IVP Severe Pain (Pain Scale 7-10) 02/06/21 13:42 02/13/21 13:41 02/10/21 04:47 Insulin Aspart (NovoLOG) EVERY 6 HOURS SUBQ 01/09/21 12:00 04/04/21 16:29 02/11/21 12:22 Lansoprazole (Prevacid) 30 mg DAILY GT 01/24/21 09:00 02/15/21 08:59 02/11/21 08:34 Lidocaine HCl (Xylocaine 1% 30ml) 30 ml ONCE PRN INJ PROCEDURE 02/11/21 11:09 02/11/21 23:59 Lorazepam (Ativan 2mg/ml 1ml) 0.5 mg Q6H PRN IV For Seizures 02/05/21 03:15 02/12/21 03:14 02/05/21 03:55 Lorazepam (Ativan 2mg/ml 1ml) 1 mg Q2H PRN IV For Anxiety 02/06/21 08:15 02/13/21 08:14 02/06/21 11:58 Metoclopramide HCl (Reglan) 5 mg Q6H PRN IVP Nausea & Vomiting 02/06/21 00:15 03/08/21 00:14 Midodrine (Pro-Amatine) 10 mg Q8HR ORAL 01/20/21 14:00 04/20/21 13:59 02/11/21 14:25 Ondansetron HCl (Zofran) 4 mg Q6H PRN IVP Nausea & Vomiting 02/06/21 00:15 03/08/21 00:14 Potassium Chloride (K-Dur) 20 meq TWICE A DAY NG 01/20/21 13:00 04/20/21 12:59 02/11/21 17:28 Quetiapine Fumarate (SEROqueL) 100 mg Q12HR ORAL 01/20/21 15:00 03/06/21 14:59 02/11/21 08:34 Valproic Acid (Depakene) 500 mg Q12HR GT 01/22/21 21:00 02/21/21 20:59 02/11/21 08:34 Vancomycin HCl 250 ml @ 166.667 mls/hr Q8H IVPB 02/11/21 13:00 02/16/21 12:59 02/11/21 12:23 Vancomycin HCl (Vanco pharmacy to dose) 1 ea DAILY PRN MISC Per rx protocol 01/25/21 08:15 02/24/21 08:14 Warfarin Sodium (Coumadin per pharmacy) 1 ea DAILY PRN MISC . 02/07/21 17:00 03/09/21 16:59 Allergies: Coded Allergies: No Known Allergies (Unverified , 01/02/21) ROS Limited/Unobtainable: Yes Subjective 60 YO M admitted with shortness of breath. Now respiratory failure. Cover for Int Rohit-DR Bradley. Intubated and sedated. S/P Endoscopy/PEG placement 02/06/21. Objective Last Vital Signs Date Time Temp Pulse Resp B/P (MAP) Pulse Ox O2 Delivery O2 Flow Rate FiO2 02/11/21 16:00 Mechanical Ventilator 02/11/21 16:00 40 02/11/21 16:00 99.7 93 19 130/89 (103) 98 02/06/21 05:55 65.0 Laboratory Tests Test 02/11/21 03:09 02/11/21 04:05 Vancomycin Level Trough 13.8 ug/mL (5.0-12.0) H White Blood Count 9.3 K/UL (4.8-10.8) Red Blood Count 3.75 M/UL (4.70-6.10) L Hemoglobin 10.5 G/DL (14.2-18.0) L Hematocrit 33.8 % (42.0-52.0) L Mean Corpuscular Volume 90 FL (80-99) Mean Corpuscular Hemoglobin 28.0 PG (27.0-31.0) Mean Corpuscular Hemoglobin Concent 31.1 G/DL (32.0-36.0) L Red Cell Distribution Width 16.0 % (11.6-14.8) H Platelet Count 618 K/UL (150-450) H Mean Platelet Volume 7.3 FL (6.5-10.1) Neutrophils (%) (Auto) 67.7 % (45.0-75.0) Lymphocytes (%) (Auto) 13.7 % (20.0-45.0) L Monocytes (%) (Auto) 13.3 % (1.0-10.0) H Eosinophils (%) (Auto) 1.2 % (0.0-3.0) Basophils (%) (Auto) 4.1 % (0.0-2.0) H Prothrombin Time 17.5 SEC (9.30-11.50) H Prothromb Time International Ratio 1.6 (0.9-1.1) H Sodium Level 137 MMOL/L (136-145) Potassium Level 4.3 MMOL/L (3.5-5.1) Chloride Level 99 MMOL/L (98-107) Carbon Dioxide Level 29 MMOL/L (21-32) Anion Gap 9 mmol/L (5-15) Blood Urea Nitrogen 9 mg/dL (7-18) Creatinine 0.7 MG/DL (0.55-1.30) Estimat Glomerular Filtration Rate > 60 mL/min (>60) Glucose Level 120 MG/DL (74-106) H Calcium Level 9.8 MG/DL (8.5-10.1) Microbiology Date/Time Source Procedure Growth Status 02/10/21 16:00 Stool Clostridium difficile Toxin Assay - Final Complete 02/09/21 17:00 Sputum Gram Stain - Final Resulted 02/09/21 17:00 Sputum Culture - Preliminary Gram Negative Bacillus 1 Resulted 02/09/21 08:51 Urine,Clean Catch Urine Culture - Preliminary Gram Positive Cocci Yasmine Albicans Resulted Intake and Output 02/10/21 02/11/21 19:00 07:00 Intake Total 860 ml 1050.000 ml Output Total 800 ml 1400 ml Balance 60 ml -350.000 ml Free Water 260 ml 120 ml IV Total 330.000 ml Tube Feeding 600 ml 600 ml Output Urine Total 800 ml 1400 ml # Voids 1 # Bowel Movements 5 1 Objective Objective General: awake, responsive , confused. HEENT: NCAT, sclera anicteric, PERRL, EOMI. Neck: Supple, no significant jugular venous distention, Lungs: mech vent; decreased air at the bases, occasional crackles, no Wheeze. Heart: Regular rate and rhythm, normal S1/S2, no murmurs Abdomen: soft, nontender, nondistended. Normoactive bowel sound, obesity. / Rectal: Refused and deferred. Extremities: Left LE: No Cyanosis , clubbing or edema. Right LE AKA. Neuro: A&O x 2, Able to move all extremities Skin: warm, no rashes or lesions. Assessment/Plan Assessment/Plan Assessment/Plan Assessment/Plan (1) Pneumonia due to COVID-19 virus ICD Codes: U07.1 - COVID-19; J12.82 - Pneumonia due to coronavirus disease 2019 SNOMED: 279389686409861968 (2) Acute hypercapnic respiratory failure ICD Codes: J96.02 - Acute respiratory failure with hypercapnia SNOMED: 532691210 (3) Respiratory failure with hypoxia ICD Codes: J96.91 - Respiratory failure, unspecified with hypoxia SNOMED: 55015779146861403 Qualifiers: Qualified Codes: J96.01 - Acute respiratory failure with hypoxia (4) COPD (chronic obstructive pulmonary disease) ICD Codes: J44.9 - Chronic obstructive pulmonary disease, unspecified SNOMED: 73835492 (5) History of deep venous thrombosis or pulmonary embolus SNOMED: 361636647 (6) Obesity ICD Codes: E66.9 - Obesity, unspecified SNOMED: 948702325, 478969649 (7) Essential hypertension ICD Codes: I10 - Essential (primary) hypertension SNOMED: 93591442 (8) Diabetes mellitus type 2 in obese ICD Codes: E11.69 - Type 2 diabetes mellitus with other specified complication; E66.9 - Obesity, unspecified SNOMED: 54255754 (9) History of hydrocephalus ICD Codes: Z86.69 - Personal history of other diseases of the nervous system and sense organs SNOMED: 911484670 (10) Schizophrenia ICD Codes: F20.9 - Schizophrenia, unspecified SNOMED: 49001822 (11) Bipolar 1 disorder ICD Codes: F31.9 - Bipolar disorder, unspecified SNOMED: 291298430 (12) Anticoagulant long-term use ICD Codes: Z79.01 - snf (current) use of anticoagulants SNOMED: 438621614 13. Sepsis=gram pos cocci 14. thrush Assessment/Plan: Optimize pulmonary hygiene/mobilize as tolerated Non Rebreather mask>BIPAP>intubated S/P Remdesivir IV S/P Solu-Medrol 40 mg IV twice a day. Abx = vanco and cefepime F/U Cx's Monitor volumes and renal function DVT Px: Coumadin DC IV fluid Start diet Monitor blood glucose level closely. On levophed, fentanyl and propofol drips Pulmonary=Dr Luis ID=Dr Gomez Psych consult=Dr Gallegos; continue seroquel continue nystatin await tracheostomy Optimize pulmonary hygiene/mobilize as tolerated Completed Remdesivir IV Abx: Vanco IV and Zosyn IV F/U Cx's Monitor volumes and renal function DVT Px: Coumadin Monitor blood glucose level closely. FULL Code Tolerated Tube feeding @ 60 cc/hr. S/P endoscopy/PEG plamement 02/06/21 S/P Trach 02/06/21 Discharge planning: [facility] sub acute Vickey Brown MD Feb 11, 2021 18:17
[2021-02-11 20:00] VITALS: BP 113/81
[2021-02-12] VITALS: BP 127/72
[2021-02-12] MEDS: Acetylcysteine 20% Soln 4ml HHN SCH ×4 (01:28→20:06)
[2021-02-12] MEDS: Albuterol/Ipratropium 3ml neb HHN SCH ×4 (01:28→20:06)
[2021-02-12 04:00] VITALS: BP 118/83
[2021-02-12 04:22] LABS: BASOPHILS % (AUTO) 1.9 % (0.0-2.0); EOSINOPHILS % (AUTO) 1.3 % (0.0-3.0); HEMATOCRIT 34.3 % (42.0-52.0); LYMPHOCYTES % (AUTO) 20.5 % (20.0-45.0); MEAN CORPUSCULAR VOLUME 88 FL (80-99); MONOCYTES % (AUTO) 8.6 % (1.0-10.0); NEUTROPHILS % (AUTO) 67.6 % (45.0-75.0); PLATELET COUNT 692 K/UL (150-450); RED BLOOD COUNT 3.89 M/UL (4.70-6.10); RED CELL DISTRIBUTION WIDTH 15.9 % (11.6-14.8); WHITE BLOOD COUNT 10.3 K/UL (4.8-10.8)
[2021-02-12 04:27] LABS: INR 2.3 (0.9-1.1)
[2021-02-12 04:38] LABS: ANION GAP 9 mmol/L (5-15); BLOOD UREA NITROGEN 8 mg/dL (7-18); CALCIUM 10.2 MG/DL (8.5-10.1); CARBON DIOXIDE 29 MMOL/L (21-32); CHLORIDE 100 MMOL/L (98-107); CREATININE 0.7 MG/DL (0.55-1.30); POTASSIUM 4.4 MMOL/L (3.5-5.1); SODIUM 138 MMOL/L (136-145)
[2021-02-12] MEDS: Cefepime HCl 1 GM in D5W 55 ML IVPB SCH ×3 (05:36→21:08)
[2021-02-12] MEDS: Midodrine 10mg tab ORAL SCH ×3 (05:37→21:07)
[2021-02-12] MEDS: NovoLOG Insulin Flexpen SUBQ SCH ×4 (05:50→17:43)
[2021-02-12] MEDS: Vancomycin 1.5gm/300ml Premix IVPB SCH ×2 (05:50→14:28)
[2021-02-12 08:00] VITALS: BP 128/79
--- NOTE | 2021-02-12 09:03 | Infectious Diseases Prog Note ---
Assessment/Plan 60yo M with: Fever to 101, new 02/09 Increased secretions, possible VAP 02/09 UA 60/80 WBC, UCx p BCx ordered Resp cx ordered CXR: There is been interval worsening of moderate diffuse alveolar infiltrate throughout the left lung as well as worsening mild right lower lobe infiltrate consistent with bilateral pneumonia. Septic Shock Recurrent Gram positive bacteremia r/o line infection -01/25 Bcx 2/ sets GPC clusters Staph epi bacteremia ? infected fem line , Sp removal 02/01 01/10 BCx / +Staph epi 01/13 BCx Neg 01/25 BCx CoNS /2 01/28 BCx - CoNS 01/0101/31/21 BCx - NGTD 02/02/21 BCx - 12/01 GPC 02/04/21 BCx - NGTD COVID pna, severe Acute hypoxia 01/01 COVID pna >> intubated 01/06- 50% FIo2 Febrile to 103; imporving Normal WBC Elevated AST 51 01/01 Tested positive for COVID at [facility] 01/02 COVID PCR positive 01/02 BCx NTD CXR: Multifocal pna MRSA nares neg 01/06 Intubated in ICU CXR: 1. Appropriately positioned endotracheal and enteric tubes. 2. Stable bilateral airspace disease. 01/07 Resp cx +Yasmine albicans (colonizer) 01/11 CXR: Interval improved bilateral lung aeration. Bibasilar infiltrates/atelectasis. Cr 1.1 PICC placement HIV screen neg PMH: DM2 COPD HTN SNF resident PICC placed 01/30/21 Plan: Cont Vancomycin IV #19 ( End date 02/15/21) Cont Cefepime #02/03 pend Cx Given fever: Labs today BCx UA/UCx CXR, reviewed Resp cx 02/01/21 SP Zosyn #7 01/22/21 steroids #19, on methylpred 20 IV q12 - defer course to Pulm/Primary, now tapering 01/19/21 SP Zosyn #10 01/14 SP vanco IV #1 01/09 SP CTX #7 01/07 SP azithro #5, RDV #5 This institution does not have access to convalescent plasma and only recommended to give in setting of clinical trial Monitor temp curve, hemodynamics Monitor resp status D/w RN Thank you for this consult. [facility] will continue to follow. Subjective Allergies: Coded Allergies: No Known Allergies (Unverified , 01/02/21) Afebrile Remains on Vent 40% O2 Mild Leukocytosis resolved awake and following Objective Last 24 Hour Vital Signs Date Time Temp Pulse Resp B/P (MAP) Pulse Ox O2 Delivery O2 Flow Rate FiO2 02/12/21 08:00 98.0 89 24 128/79 (95) 95 02/12/21 07:44 88 02/12/21 07:41 40 02/12/21 07:39 Mechanical Ventilator 02/12/21 06:30 101 28 02/12/21 05:02 94 27 40 02/12/21 04:00 97 02/12/21 04:00 Mechanical Ventilator 02/12/21 04:00 97.9 96 20 118/83 (95) 100 02/12/21 04:00 40 02/12/21 03:05 92 23 40 02/12/21 01:29 101 21 99 Mechanical Ventilator 40 104 22 40 02/12/21 00:00 Mechanical Ventilator 02/12/21 00:00 40 02/12/21 00:00 98.5 90 19 127/72 (90) 98 02/12/21 00:00 98 02/11/21 22:57 94 21 40 02/11/21 21:10 86 24 40 02/11/21 20:00 99.4 94 19 113/81 (92) 99 02/11/21 20:00 87 02/11/21 20:00 40 02/11/21 20:00 Mechanical Ventilator 02/11/21 19:11 98 20 97 Mechanical Ventilator 40 96 20 40 02/11/21 16:00 Mechanical Ventilator 02/11/21 16:00 40 02/11/21 16:00 99.7 93 19 130/89 (103) 98 02/11/21 15:15 104 02/11/21 15:00 86 22 40 02/11/21 14:20 90 22 100 Mechanical Ventilator 40 91 22 40 02/11/21 12:52 100.0 02/11/21 12:00 100.6 105 25 129/88 (102) 94 02/11/21 11:50 Mechanical Ventilator 02/11/21 11:25 105 02/11/21 11:00 101 23 40 Height (Feet): 5 Height (Inches): 5.00 Weight (Pounds): 223 Gen: On Vent 40% O2 satting well HEENT: NCAT, Trach Pulm: BL chest rise, RRR Skin: No visible rashes Abd Soft, ND, PEG ( No E/P) Neuro: Opens eyes Lines STEPHANIE PICC lines in place Microbiology Date/Time Source Procedure Growth Status 02/11/21 18:40 Nasopharynx SARS-CoV-2 Antigen (Rapid)(SUZETTE) - Final Complete 02/10/21 16:00 Stool Clostridium difficile Toxin Assay - Final Complete 02/09/21 17:00 Sputum Gram Stain - Final Resulted 02/09/21 17:00 Sputum Culture - Preliminary Gram Negative Bacillus 1 Gram Negative Bacillus 2 Gram Negative Bacillus 3 Resulted Laboratory Tests Test 02/12/21 04:01 White Blood Count 10.3 K/UL (4.8-10.8) Red Blood Count 3.89 M/UL (4.70-6.10) L Hemoglobin 11.0 G/DL (14.2-18.0) L Hematocrit 34.3 % (42.0-52.0) L Mean Corpuscular Volume 88 FL (80-99) Mean Corpuscular Hemoglobin 28.3 PG (27.0-31.0) Mean Corpuscular Hemoglobin Concent 32.0 G/DL (32.0-36.0) Red Cell Distribution Width 15.9 % (11.6-14.8) H Platelet Count 692 K/UL (150-450) H Mean Platelet Volume 7.4 FL (6.5-10.1) Neutrophils (%) (Auto) 67.6 % (45.0-75.0) Lymphocytes (%) (Auto) 20.5 % (20.0-45.0) Monocytes (%) (Auto) 8.6 % (1.0-10.0) Eosinophils (%) (Auto) 1.3 % (0.0-3.0) Basophils (%) (Auto) 1.9 % (0.0-2.0) Prothrombin Time 24.2 SEC (9.30-11.50) H Prothromb Time International Ratio 2.3 (0.9-1.1) H Sodium Level 138 MMOL/L (136-145) Potassium Level 4.4 MMOL/L (3.5-5.1) Chloride Level 100 MMOL/L (98-107) Carbon Dioxide Level 29 MMOL/L (21-32) Anion Gap 9 mmol/L (5-15) Blood Urea Nitrogen 8 mg/dL (7-18) Creatinine 0.7 MG/DL (0.55-1.30) Estimat Glomerular Filtration Rate > 60 mL/min (>60) Glucose Level 145 MG/DL (74-106) H Calcium Level 10.2 MG/DL (8.5-10.1) H Vancomycin Level Trough 13.3 ug/mL (5.0-12.0) H Current Medications Medications (Trade) Dose Ordered Sig/Johnny Route PRN Reason Start Time Stop Time Status Last Admin Dose Admin Acetaminophen (Tylenol) 650 mg Q6H PRN GT Temp >100.5 02/09/21 08:15 03/11/21 08:14 02/11/21 12:22 Acetylcysteine (Mucomyst) 200 mg Q6HRT HHN 02/03/21 13:00 05/04/21 12:59 02/12/21 07:56 Albuterol/ Ipratropium (Albuterol/ Ipratropium) 3 ml Q6HRT HHN 02/08/21 13:45 02/13/21 13:44 02/12/21 07:56 Cefepime HCl 1 gm/ Dextrose 55 ml @ 110 mls/hr EVERY 8 HOURS IVPB 02/09/21 09:30 02/16/21 09:29 02/12/21 05:36 Dextrose (Dextrose 50%) 25 ml Q30M PRN IV Hypoglycemia 01/06/21 23:45 04/06/21 23:44 Dextrose (Dextrose 50%) 50 ml Q30M PRN IV Hypoglycemia 01/06/21 23:45 04/06/21 23:44 Hydromorphone HCl (Dilaudid) 0.5 mg Q2H PRN IVP Severe Pain (Pain Scale 7-10) 02/06/21 13:42 02/13/21 13:41 02/10/21 04:47 Insulin Aspart (NovoLOG) EVERY 6 HOURS SUBQ 01/09/21 12:00 04/04/21 16:29 02/11/21 12:22 Lansoprazole (Prevacid) 30 mg DAILY GT 01/24/21 09:00 02/15/21 08:59 02/11/21 08:34 Lorazepam (Ativan 2mg/ml 1ml) 1 mg Q2H PRN IV For Anxiety 02/06/21 08:15 02/13/21 08:14 02/06/21 11:58 Metoclopramide HCl (Reglan) 5 mg Q6H PRN IVP Nausea & Vomiting 02/06/21 00:15 03/08/21 00:14 Midodrine (Pro-Amatine) 10 mg Q8HR ORAL 01/20/21 14:00 04/20/21 13:59 02/12/21 05:37 Ondansetron HCl (Zofran) 4 mg Q6H PRN IVP Nausea & Vomiting 02/06/21 00:15 03/08/21 00:14 Potassium Chloride (K-Dur) 20 meq TWICE A DAY NG 01/20/21 13:00 04/20/21 12:59 02/11/21 17:28 Quetiapine Fumarate (SEROqueL) 100 mg Q12HR ORAL 01/20/21 15:00 03/06/21 14:59 02/11/21 20:30 Valproic Acid (Depakene) 500 mg Q12HR GT 01/22/21 21:00 02/21/21 20:59 02/11/21 20:31 Vancomycin HCl 300 ml @ 150 mls/hr Q8H IVPB 02/12/21 06:00 02/17/21 05:59 02/12/21 05:50 Vancomycin HCl (Vanco pharmacy to dose) 1 ea DAILY PRN MISC Per rx protocol 01/25/21 08:15 02/24/21 08:14 Warfarin Sodium (Coumadin per pharmacy) 1 ea DAILY PRN MISC . 02/07/21 17:00 03/09/21 16:59 Warfarin Sodium (Coumadin) 4 mg ONCE ORAL 02/12/21 17:00 02/12/21 17:01 Anuel Crespo MD Feb 12, 2021 09:03
[2021-02-12] MEDS: Valproic Acid 250mg/5ml Liquid GT SCH ×2 (09:08→21:08)
--- NOTE | 2021-02-12 10:38 | Pulmonology Progress Note ---
Subjective ROS Limited/Unobtainable: Yes Allergies: Coded Allergies: No Known Allergies (Unverified , 01/02/21) Objective Last 24 Hour Vital Signs Date Time Temp Pulse Resp B/P (MAP) Pulse Ox O2 Delivery O2 Flow Rate FiO2 02/12/21 08:00 98.0 89 24 128/79 (95) 95 02/12/21 07:44 88 02/12/21 07:41 40 02/12/21 07:39 Mechanical Ventilator 02/12/21 06:30 101 28 02/12/21 05:02 94 27 40 02/12/21 04:00 97 02/12/21 04:00 Mechanical Ventilator 02/12/21 04:00 97.9 96 20 118/83 (95) 100 02/12/21 04:00 40 02/12/21 03:05 92 23 40 02/12/21 01:29 101 21 99 Mechanical Ventilator 40 104 22 40 02/12/21 00:00 Mechanical Ventilator 02/12/21 00:00 40 02/12/21 00:00 98.5 90 19 127/72 (90) 98 02/12/21 00:00 98 02/11/21 22:57 94 21 40 02/11/21 21:10 86 24 40 02/11/21 20:00 99.4 94 19 113/81 (92) 99 02/11/21 20:00 87 02/11/21 20:00 40 02/11/21 20:00 Mechanical Ventilator 02/11/21 19:11 98 20 97 Mechanical Ventilator 40 96 20 40 02/11/21 16:00 Mechanical Ventilator 02/11/21 16:00 40 02/11/21 16:00 99.7 93 19 130/89 (103) 98 02/11/21 15:15 104 02/11/21 15:00 86 22 40 02/11/21 14:20 90 22 100 Mechanical Ventilator 40 91 22 40 02/11/21 12:52 100.0 02/11/21 12:00 100.6 105 25 129/88 (102) 94 02/11/21 11:50 Mechanical Ventilator 02/11/21 11:25 105 02/11/21 11:00 101 23 40 Intake and Output 02/11/21 02/12/21 19:00 07:00 Intake Total 1005.000 ml 550 ml Output Total 1400 ml 1200 ml Balance -395.000 ml -650 ml Free Water 100 ml IV Total 305.000 ml Tube Feeding 600 ml 550 ml Output Urine Total 1400 ml 1200 ml # Bowel Movements 1 Microbiology Date/Time Source Procedure Growth Status 02/11/21 18:40 Nasopharynx SARS-CoV-2 Antigen (Rapid)(SUZETTE) - Final Complete 02/10/21 16:00 Stool Clostridium difficile Toxin Assay - Final Complete 02/09/21 17:00 Sputum Gram Stain - Final Resulted 02/09/21 17:00 Sputum Culture - Preliminary Gram Negative Bacillus 1 Gram Negative Bacillus 2 Gram Negative Bacillus 3 Resulted Laboratory Tests 02/12/21 04:01: White Blood Count 10.3, Red Blood Count 3.89L, Hemoglobin 11.0L, Hematocrit 34.3L, Mean Corpuscular Volume 88, Mean Corpuscular Hemoglobin 28.3, Mean Corpuscular Hemoglobin Concent 32.0, Red Cell Distribution Width 15.9H, Platelet Count 692H, Mean Platelet Volume 7.4, Neutrophils (%) (Auto) 67.6, Lymphocytes (%) (Auto) 20.5, Monocytes (%) (Auto) 8.6, Eosinophils (%) (Auto) 1.3, Basophils (%) (Auto) 1.9, Prothrombin Time 24.2H, Prothromb Time International Ratio 2.3H, Sodium Level 138, Potassium Level 4.4, Chloride Level 100, Carbon Dioxide Level 29, Anion Gap 9, Blood Urea Nitrogen 8, Creatinine 0.7, Estimat Glomerular Filtration Rate > 60, Glucose Level 145H, Calcium Level 10.2H, Vancomycin Level Trough 13.3H Current Medications Medications (Trade) Dose Ordered Sig/Johnny Route PRN Reason Start Time Stop Time Status Last Admin Dose Admin Acetaminophen (Tylenol) 650 mg Q6H PRN GT Temp >100.5 02/09/21 08:15 03/11/21 08:14 02/11/21 12:22 Acetylcysteine (Mucomyst) 200 mg Q6HRT N 02/03/21 13:00 05/04/21 12:59 02/12/21 07:56 Albuterol/ Ipratropium (Albuterol/ Ipratropium) 3 ml Q6HRT N 02/08/21 13:45 02/13/21 13:44 02/12/21 07:56 Cefepime HCl 1 gm/ Dextrose 55 ml @ 110 mls/hr EVERY 8 HOURS IVPB 02/09/21 09:30 02/16/21 09:29 02/12/21 05:36 Dextrose (Dextrose 50%) 25 ml Q30M PRN IV Hypoglycemia 01/06/21 23:45 04/06/21 23:44 Dextrose (Dextrose 50%) 50 ml Q30M PRN IV Hypoglycemia 01/06/21 23:45 04/06/21 23:44 Hydromorphone HCl (Dilaudid) 0.5 mg Q2H PRN IVP Severe Pain (Pain Scale 7-10) 02/06/21 13:42 02/13/21 13:41 02/10/21 04:47 Insulin Aspart (NovoLOG) EVERY 6 HOURS SUBQ 01/09/21 12:00 04/04/21 16:29 02/11/21 12:22 Lansoprazole (Prevacid) 30 mg DAILY GT 01/24/21 09:00 02/15/21 08:59 02/12/21 09:08 Lorazepam (Ativan 2mg/ml 1ml) 1 mg Q2H PRN IV For Anxiety 02/06/21 08:15 02/13/21 08:14 02/06/21 11:58 Metoclopramide HCl (Reglan) 5 mg Q6H PRN IVP Nausea & Vomiting 02/06/21 00:15 03/08/21 00:14 Midodrine (Pro-Amatine) 10 mg Q8HR ORAL 01/20/21 14:00 04/20/21 13:59 02/12/21 05:37 Ondansetron HCl (Zofran) 4 mg Q6H PRN IVP Nausea & Vomiting 02/06/21 00:15 03/08/21 00:14 Potassium Chloride (K-Dur) 20 meq TWICE A DAY NG 01/20/21 13:00 04/20/21 12:59 02/12/21 09:08 Quetiapine Fumarate (SEROqueL) 100 mg Q12HR ORAL 01/20/21 15:00 03/06/21 14:59 02/12/21 09:08 Valproic Acid (Depakene) 500 mg Q12HR GT 01/22/21 21:00 02/21/21 20:59 02/12/21 09:08 Vancomycin HCl 300 ml @ 150 mls/hr Q8H IVPB 02/12/21 06:00 02/17/21 05:59 02/12/21 05:50 Vancomycin HCl ([facility] pharmacy to dose) 1 ea DAILY PRN MISC Per rx protocol 01/25/21 08:15 02/24/21 08:14 Warfarin Sodium (Coumadin per pharmacy) 1 ea DAILY PRN MISC . 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 ID following, on AB, s/p REM + SM previously, CXR with bilateral infiltrates/trach Fevers settled,has incr WCC - AB/ID Stable on Ventilator PEEP at 5,maintaining O2 sats, FIO2 - 40%, s/p Tracheostomy, sp G tube, tolerating SIMV14 PS16 trials in SDU HCAP,previous fever, AB broadened by ID,cultures pending ABG noted AC18 and SIMV 16 Allergies: Coded Allergies: No Known Allergies (Unverified , 01/02/21) PMH: COPD, CPS/bipolar DO, prior DVT/PE on AC, DM2, HTN and hydrocephalus Physical Exam Deferred Covid19 Vital Signs noted Laboratory Tests noted Imaging noted Height (Feet): 5 Height (Inches): 5.00 Weight (Pounds): 233 Medications Medications noted Assessment/Plan Problem List: (1) Pneumonia due to COVID-19 virus ICD Codes: U07.1 - COVID-19; J12.82 - Pneumonia due to coronavirus disease 2018 SNOMED: 565148073254732368 (2) Acute hypercapnic respiratory failure ICD Codes: J96.02 - Acute respiratory failure with hypercapnia SNOMED: 104528735 (3) Respiratory failure with hypoxia ICD Codes: J96.91 - Respiratory failure, unspecified with hypoxia SNOMED: 42449420433775194 Qualifiers: Qualified Codes: J96.01 - Acute respiratory failure with hypoxia (4) COPD (chronic obstructive pulmonary disease) ICD Codes: J44.9 - Chronic obstructive pulmonary disease, unspecified SNOMED: 51508452 (5) History of deep venous thrombosis or pulmonary embolus SNOMED: 197229231 (6) Obesity ICD Codes: E66.9 - Obesity, unspecified SNOMED: 462917516, 935923086 (7) Essential hypertension ICD Codes: I10 - Essential (primary) hypertension SNOMED: 08071150 (8) Diabetes mellitus type 2 in obese ICD Codes: E11.69 - Type 2 diabetes mellitus with other specified complication; E66.9 - Obesity, unspecified SNOMED: 98099982 (9) History of hydrocephalus ICD Codes: Z86.69 - Personal history of other diseases of the nervous system and sense organs SNOMED: 406407857 (10) Schizophrenia ICD Codes: F20.9 - Schizophrenia, unspecified SNOMED: 88242086 (11) Bipolar 1 disorder ICD Codes: F31.9 - Bipolar disorder, unspecified SNOMED: 368089394 (12) Anticoagulant long-term use ICD Codes: Z79.01 - halfway (current) use of anticoagulants SNOMED: 127908886 Assessment/Plan: ACVC - adjust PRN ABG PRN Adjust FiO2 to keep SaO2 > 92% Wean as tolerated - SIMV Sedation PRN HFA's Weaned off SM Abx per ID-broadened F/U Cx's DVT Px: Coumadin sandra TF FC GT Trach SDU LTAC placement Seen on 02/11/2021 Anuel Luis MD Feb 12, 2021 10:38
--- NOTE | 2021-02-12 10:42 | Surgery Progress Note ---
Surgery Progress Note Subjective Procedure Performed tracheostomy Additional Comments resting comfortable on support no n/v eyes open labs noted cont nutrition Objective Last 24 Hour Vital Signs Date Time Temp Pulse Resp B/P (MAP) Pulse Ox O2 Delivery O2 Flow Rate FiO2 02/12/21 08:00 98.0 89 24 128/79 (95) 95 02/12/21 07:44 88 02/12/21 07:41 40 02/12/21 07:39 Mechanical Ventilator 02/12/21 06:30 101 28 02/12/21 05:02 94 27 40 02/12/21 04:00 97 02/12/21 04:00 Mechanical Ventilator 02/12/21 04:00 97.9 96 20 118/83 (95) 100 02/12/21 04:00 40 02/12/21 03:05 92 23 40 02/12/21 01:29 101 21 99 Mechanical Ventilator 40 104 22 40 02/12/21 00:00 Mechanical Ventilator 02/12/21 00:00 40 02/12/21 00:00 98.5 90 19 127/72 (90) 98 02/12/21 00:00 98 02/11/21 22:57 94 21 40 02/11/21 21:10 86 24 40 02/11/21 20:00 99.4 94 19 113/81 (92) 99 02/11/21 20:00 87 02/11/21 20:00 40 02/11/21 20:00 Mechanical Ventilator 02/11/21 19:11 98 20 97 Mechanical Ventilator 40 96 20 40 02/11/21 16:00 Mechanical Ventilator 02/11/21 16:00 40 02/11/21 16:00 99.7 93 19 130/89 (103) 98 02/11/21 15:15 104 02/11/21 15:00 86 22 40 02/11/21 14:20 90 22 100 Mechanical Ventilator 40 91 22 40 02/11/21 12:52 100.0 02/11/21 12:00 100.6 105 25 129/88 (102) 94 02/11/21 11:50 Mechanical Ventilator 02/11/21 11:25 105 02/11/21 11:00 101 23 40 I&O Intake and Output 02/11/21 02/12/21 19:00 07:00 Intake Total 1005.000 ml 550 ml Output Total 1400 ml 1200 ml Balance -395.000 ml -650 ml Free Water 100 ml IV Total 305.000 ml Tube Feeding 600 ml 550 ml Output Urine Total 1400 ml 1200 ml # Bowel Movements 1 Dressing: saturated Cardiovascular: RSR Respiratory: decreased breath sounds Abdomen: soft, non-tender, present bowel sounds, non-distended Extremities: no tenderness, no cyanosis Laboratory Tests Test 02/12/21 04:01 White Blood Count 10.3 K/UL (4.8-10.8) Red Blood Count 3.89 M/UL (4.70-6.10) L Hemoglobin 11.0 G/DL (14.2-18.0) L Hematocrit 34.3 % (42.0-52.0) L Mean Corpuscular Volume 88 FL (80-99) Mean Corpuscular Hemoglobin 28.3 PG (27.0-31.0) Mean Corpuscular Hemoglobin Concent 32.0 G/DL (32.0-36.0) Red Cell Distribution Width 15.9 % (11.6-14.8) H Platelet Count 692 K/UL (150-450) H Mean Platelet Volume 7.4 FL (6.5-10.1) Neutrophils (%) (Auto) 67.6 % (45.0-75.0) Lymphocytes (%) (Auto) 20.5 % (20.0-45.0) Monocytes (%) (Auto) 8.6 % (1.0-10.0) Eosinophils (%) (Auto) 1.3 % (0.0-3.0) Basophils (%) (Auto) 1.9 % (0.0-2.0) Prothrombin Time 24.2 SEC (9.30-11.50) H Prothromb Time International Ratio 2.3 (0.9-1.1) H Sodium Level 138 MMOL/L (136-145) Potassium Level 4.4 MMOL/L (3.5-5.1) Chloride Level 100 MMOL/L (98-107) Carbon Dioxide Level 29 MMOL/L (21-32) Anion Gap 9 mmol/L (5-15) Blood Urea Nitrogen 8 mg/dL (7-18) Creatinine 0.7 MG/DL (0.55-1.30) Estimat Glomerular Filtration Rate > 60 mL/min (>60) Glucose Level 145 MG/DL (74-106) H Calcium Level 10.2 MG/DL (8.5-10.1) H Vancomycin Level Trough 13.3 ug/mL (5.0-12.0) H Plan Problems: (1) COPD (chronic obstructive pulmonary disease) (2) Essential hypertension (3) Schizophrenia (4) Obesity (5) Diabetes mellitus type 2 in obese (6) History of hydrocephalus (7) Anticoagulant long-term use (8) Bipolar 1 disorder (9) History of deep venous thrombosis or pulmonary embolus (10) Acute hypercapnic respiratory failure (11) Sepsis Assessment & Plan: 60-year-old male Covid positive respiratory insufficiency and severe decline being prone intubated on vent support labs noted septic ill- appearing has been developing wound around the face from ET tube.Receiv ed repor t from RT pt is being proned and was observed to have developed a blood blister under vent tape on L cheek and L earlobe. Skin assessed and pt was observed to have a blood blister that is 50% de-capped,50% intact. Intact Blood Blister noted to L earlobe. Skin Barrier applied to affected areas. Optifoam Thin foam placed between vent anchor and pt's skin. Optifoam thin placed to R cheek under Vent tape, on Bridge of nose and both earlobes. Given patient's critical status current care plan and findings nutritional optimization is strongly encouraged Covid nutrition plan initiated. All Covid precautions are being taken. Imaging reviewed. Will follow with care plan. Thank you [facility] participation care Tx.Plan: Maintain Optifoam Thin foam to R and L cheeks,Bridge of Nose and Both Ears . Change every 7 days and prn.( May request Optifoam Thin from RT dept). APM/PEPE Mattress overlay DAILY ESTIMATED NEEDS: Needs based on Critical care, pulmonary, obese, 71.25kg abw 22-28 kcals/kg [id number] total kcals 2g/kg IBW (62kg) g protein/kg 88-147 g total protein 25-30 abw (71kg) mL/kg 2897-7742 total fluid mLs NUTRITION DIAGNOSIS: Altered nutrition related lab values r/t steroidal meds, clinical status as evidenced by febrile on adm (102.5) now afebrile, elevated BG w/ POC glu (200's) now off steroidal med, elevated lipid panel (Triglycerides 333, Chol 370, LDL 150). CURRENT TF: Glucerna 1.5 @50ml/hr ENTERAL NUTRITION RECOMMENDATIONS: Glucerna 1.5 @ 50ml/hr x 24 hrs to provide 1200ml, 1800kcal, 99g prot, 911ml free H2O - S/p PEG, rec to LOWER goal to 50ml/hr Glucerna 1.5 w/ goal of 40ml/hr x 24 hrs. - Flush per MD/ HOB over 30 degrees ADDITIONAL RECOMMENDATIONS: 1) Obtain calibrated bedscale wts- fluctuating daily wts 2) Rec long acting insulin: BGs 200's -> now improved 3) Monitor proning hrs, need to adjust TF rate/run time-> PRONING DC'ED 4) Lytes daily; replete as needed 5) Monitor hemodynamic stability - NE held 6) Prokinetics w/ continued residuals 7) Trach (02/05); PEG (02/06) (12) Respiratory failure with hypoxia Assessment & Plan: cont weaning vent wean pressors not ready for trach off pressors improving HD stable plan trach soon as unable to extubate s/p trach 02/05 peg recovering placement cont tf (13) Pneumonia due to COVID-19 virus (14) Hyperkalemia (15) DMII (diabetes mellitus, type 2) Ki Strong Feb 12, 2021 10:42
--- NOTE | 2021-02-12 10:51 | Nephrology Progress Note ---
Assessment/Plan Problem List: (1) Hyperkalemia (2) Pneumonia due to COVID-19 virus (3) Respiratory failure with hypoxia (4) Obesity (5) Schizophrenia (6) DMII (diabetes mellitus, type 2) Assessment Hyperkalemia Stable renal parameters Hyperglycemia Covid pneumonia due to COVID-19 virus Acute respiratory failure with hypoxia requiring mechanical ventilation History of COPD History of DVT, pulmonary emboli Obese Hypertension History of diabetes Psych condition, schizophrenia, bipolar disease Plan February 12: Labs reviewed. Renal parameters stable. Stable for discharge from renal standpoint of view. February 11: Labs reviewed. Renal parameters stable. Overall status unchanged. Patient is full code. Continue per consultants. February 10: Status unchanged. Full code. Trach to vent. Labs reviewed. Stable from renal standpoint of view. February 09: Labs reviewed. Renal parameters stable. Trach, vent, PEG, full code. February 08: Labs reviewed. Renal parameters stable. Tracheostomy to vent. Full code. Continue per consultants. February 07: Labs reviewed. Renal parameters stable. Patient is trach connected to vent has a PEG and is full code. Continue per consultants. February 06: Full code. Intubated on ventilator. Had tracheostomy. Due for PEG. Continue as is. February 05: Full code. Intubated on ventilator. Due for tracheostomy today as per RN. Renal parameters stable. Continue as is. February 04: Remains full code. Intubated on ventilator. FiO2 40%. Due for tracheostomy. Stable from renal standpoint of view. February 03: Remains intubated on ventilator. FiO2 40%. Discussed with RN. Patient is planned to have tracheostomy. Labs reviewed. Renal parameters stable. February 02: Status quo. Full code. Intubated on ventilator. FiO2 40%. Renal parameters stable. February 01: Status quo. FiO2 40%. Full code. Labs reviewed. Renal parameters stable. January 31: Status quo. FiO2 45%. Full code. Renal parameters stable. Abnormal electrolytes addressed. January 30: Status quo. Remains full code. Intubated. On ventilator. Low magnesium addressed. Continue per consultants. January 29: Status quo. Labs reviewed. Low magnesium addressed. Discussed with JOHAN Ratliff. Continue per consultants. January 28: Status quo. Labs and medication list reviewed. K-Phos supplement ordered. Continue per current treatment plan. January 27: Patient remains full code. Intubated on ventilator. FiO2 50%. Labs reviewed. Renal parameters stable. Medication list reviewed. January 26: Full code. Intubated. On ventilator. FiO2 65%. No CHEM panel drawn today. Continue per consultants. January 25: Status unchanged. Blood pressure low. Remains full code on ventilator. Continue per consultants. Medication list reviewed. INR is 3.8 today. January 24: Status quo. Intubated on ventilator and full code. Labs reviewed. Medication list reviewed. Continue per consultants. January 23: Patient on prone position. IntubatedFiO2 65%. Renal parameters stable. Continue per consultants. Date hospitalization. Possible trach?. January 22: FiO2 50%. Prone position. Labs reviewed. Stable from renal standpoint of view. Continue per consultants. January 21: Full code. Intubated on ventilator. FiO2 40%. Labs reviewed. Renal parameters stable. Continue per consultants. January 20: Status unchanged. Full code. On ventilator. Chest x-ray rev iewed. IV fluid discontinued. Potassium supplement given. 1 dose of Lasix given. Albumin bolus given. Midodrine started. Will monitor renal parameters and electrolytes. Discussed with JOHAN Mohamud. January 19: Labs reviewed. Renal parameters stable. Remains full code intubated on ventilator. FiO2 50%. Continue per consultants. January 18: Full code. Intubated. On ventilator. FiO2 down to 35%. No labs drawn today. Continue to monitor renal parameters and electrolytes. January 17: Full code. Intubated on ventilator. FiO2 remains at 60%. Labs reviewed. Renal parameters stable. January 16: Full code. Intubated. Labs reviewed. Renal parameters stable. FiO2 60%. Continue per consultants. January 15: Patient remains intubated and full code. Labs reviewed. Stable renal parameters. January 14: Patient full code. Intubated on ventilator. On prone position until 5 PM. Labs reviewed. Stable from renal standpoint of view. January 13: Labs reviewed. Renal parameters stable. Continue per consultants. Patient remain full code and intubated on ventilator. January 12: Labs reviewed. Renal parameters stable. Patient remains full code. Remains intubated on ventilator and on prone position. Continue per consultants. January 11: Labs reviewed. Renal parameters stable. Continue per consultants. January 10: Labs reviewed. Renal parameters stable. Continue per consultants. Change IV to half-normal saline Kayexalate via NG tube for high potassium Monitor electrolytes and renal parameters Per orders, per consultants Subjective ROS Limited/Unobtainable: Yes Objective Objective Last 24 Hour Vital Signs Date Time Temp Pulse Resp B/P (MAP) Pulse Ox O2 Delivery O2 Flow Rate FiO2 02/12/21 08:00 98.0 89 24 128/79 (95) 95 02/12/21 07:44 88 02/12/21 07:41 40 02/12/21 07:39 Mechanical Ventilator 02/12/21 06:30 101 28 02/12/21 05:02 94 27 40 02/12/21 04:00 97 02/12/21 04:00 Mechanical Ventilator 02/12/21 04:00 97.9 96 20 118/83 (95) 100 02/12/21 04:00 40 02/12/21 03:05 92 23 40 02/12/21 01:29 101 21 99 Mechanical Ventilator 40 104 22 40 02/12/21 00:00 Mechanical Ventilator 02/12/21 00:00 40 02/12/21 00:00 98.5 90 19 127/72 (90) 98 02/12/21 00:00 98 02/11/21 22:57 94 21 40 02/11/21 21:10 86 24 40 02/11/21 20:00 99.4 94 19 113/81 (92) 99 02/11/21 20:00 87 02/11/21 20:00 40 02/11/21 20:00 Mechanical Ventilator 02/11/21 19:11 98 20 97 Mechanical Ventilator 40 96 20 40 02/11/21 16:00 Mechanical Ventilator 02/11/21 16:00 40 02/11/21 16:00 99.7 93 19 130/89 (103) 98 02/11/21 15:15 104 02/11/21 15:00 86 22 40 02/11/21 14:20 90 22 100 Mechanical Ventilator 40 91 22 40 02/11/21 12:52 100.0 02/11/21 12:00 100.6 105 25 129/88 (102) 94 02/11/21 11:50 Mechanical Ventilator 02/11/21 11:25 105 02/11/21 11:00 101 23 40 Intake and Output 02/11/21 02/12/21 19:00 07:00 Intake Total 1005.000 ml 550 ml Output Total 1400 ml 1200 ml Balance -395.000 ml -650 ml Free Water 100 ml IV Total 305.000 ml Tube Feeding 600 ml 550 ml Output Urine Total 1400 ml 1200 ml # Bowel Movements 1 Current Medications Medications (Trade) Dose Ordered Sig/Johnny Route PRN Reason Start Time Stop Time Status Last Admin Dose Admin Acetaminophen (Tylenol) 650 mg Q6H PRN GT Temp >100.5 02/09/21 08:15 03/11/21 08:14 02/11/21 12:22 Acetylcysteine (Mucomyst) 200 mg Q6HRT N 02/03/21 13:00 05/04/21 12:59 02/12/21 07:56 Albuterol/ Ipratropium (Albuterol/ Ipratropium) 3 ml Q6HRT N 02/08/21 13:45 02/13/21 13:44 02/12/21 07:56 Cefepime HCl 1 gm/ Dextrose 55 ml @ 110 mls/hr EVERY 8 HOURS IVPB 02/09/21 09:30 02/16/21 09:29 02/12/21 05:36 Dextrose (Dextrose 50%) 25 ml Q30M PRN IV Hypoglycemia 01/06/21 23:45 04/06/21 23:44 Dextrose (Dextrose 50%) 50 ml Q30M PRN IV Hypoglycemia 01/06/21 23:45 04/06/21 23:44 Hydromorphone HCl (Dilaudid) 0.5 mg Q2H PRN IVP Severe Pain (Pain Scale 7-10) 02/06/21 13:42 02/13/21 13:41 02/10/21 04:47 Insulin Aspart (NovoLOG) EVERY 6 HOURS SUBQ 01/09/21 12:00 04/04/21 16:29 02/11/21 12:22 Lansoprazole (Prevacid) 30 mg DAILY GT 01/24/21 09:00 02/15/21 08:59 02/12/21 09:08 Lorazepam (Ativan 2mg/ml 1ml) 1 mg Q2H PRN IV For Anxiety 02/06/21 08:15 02/13/21 08:14 02/06/21 11:58 Metoclopramide HCl (Reglan) 5 mg Q6H PRN IVP Nausea & Vomiting 02/06/21 00:15 03/08/21 00:14 Midodrine (Pro-Amatine) 10 mg Q8HR ORAL 01/20/21 14:00 04/20/21 13:59 02/12/21 05:37 Ondansetron HCl (Zofran) 4 mg Q6H PRN IVP Nausea & Vomiting 02/06/21 00:15 03/08/21 00:14 Potassium Chloride (K-Dur) 20 meq TWICE A DAY NG 01/20/21 13:00 04/20/21 12:59 02/12/21 09:08 Quetiapine Fumarate (SEROqueL) 100 mg Q12HR ORAL 01/20/21 15:00 03/06/21 14:59 02/12/21 09:08 Valproic Acid (Depakene) 500 mg Q12HR GT 01/22/21 21:00 02/21/21 20:59 02/12/21 09:08 Vancomycin HCl 300 ml @ 150 mls/hr Q8H IVPB 02/12/21 06:00 02/17/21 05:59 02/12/21 05:50 [facility] 1 ea DAILY PRN MISC Per rx protocol 01/25/21 08:15 02/24/21 08:14 Warfarin Sodium (Coumadin per pharmacy) 1 ea DAILY PRN MISC . 02/07/21 17:00 03/09/21 16:59 Warfarin Sodium (Coumadin) 4 mg ONCE ORAL 02/12/21 17:00 02/12/21 17:01 Laboratory Tests 02/12/21 04:01: White Blood Count 10.3, Red Blood Count 3.89L, Hemoglobin 11.0L, Hematocrit 3 4.3L, Mean Corpuscular Volume 88, Mean Corpuscular Hemoglobin 28.3, Mean Corpuscular Hemoglobin Concent 32.0, Red Cell Distribution Width 15.9H, Platelet Count 692H, Mean Platelet Volume 7.4, Neutrophils (%) (Auto) 67.6, Lymphocytes (%) (Auto) 20.5, Monocytes (%) (Auto) 8.6, Eosinophils (%) (Auto) 1.3, Basophils (%) (Auto) 1.9, Prothrombin Time 24.2H, Prothromb Time International Ratio 2.3H, Sodium Level 138, Potassium Level 4.4, Chloride Level 100, Carbon Dioxide Level 29, Anion Gap 9, Blood Urea Nitrogen 8, Creatinine 0.7, Estimat Glomerular Filtration Rate > 60, Glucose Level 145H, Calcium Level 10.2H, Vancomycin Level Trough 13.3H Height (Feet): 5 Height (Inches): 5.00 Weight (Pounds): 223 General Appearance: no apparent distress Cardiovascular: normal rate Respiratory/Chest: decreased breath sounds Abdomen: distended Avi Frye MD Feb 12, 2021 10:51
[2021-02-12 11:48] VITALS: BP 111/75
--- NOTE | 2021-02-12 11:55 | General Progress Note ---
Subjective ROS Limited/Unobtainable: No Allergies: Coded Allergies: No Known Allergies (Unverified , 01/02/21) Objective Last 24 Hour Vital Signs Date Time Temp Pulse Resp B/P (MAP) Pulse Ox O2 Delivery O2 Flow Rate FiO2 02/12/21 11:48 100.7 113 24 111/75 (87) 96 02/12/21 08:00 98.0 89 24 128/79 (95) 95 02/12/21 07:44 88 02/12/21 07:41 40 02/12/21 07:39 Mechanical Ventilator 02/12/21 06:30 101 28 02/12/21 05:02 94 27 40 02/12/21 04:00 97 02/12/21 04:00 Mechanical Ventilator 02/12/21 04:00 97.9 96 20 118/83 (95) 100 02/12/21 04:00 40 02/12/21 03:05 92 23 40 02/12/21 01:29 101 21 99 Mechanical Ventilator 40 104 22 40 02/12/21 00:00 Mechanical Ventilator 02/12/21 00:00 40 02/12/21 00:00 98.5 90 19 127/72 (90) 98 02/12/21 00:00 98 02/11/21 22:57 94 21 40 02/11/21 21:10 86 24 40 02/11/21 20:00 99.4 94 19 113/81 (92) 99 02/11/21 20:00 87 02/11/21 20:00 40 02/11/21 20:00 Mechanical Ventilator 02/11/21 19:11 98 20 97 Mechanical Ventilator 40 96 20 40 02/11/21 16:00 Mechanical Ventilator 02/11/21 16:00 40 02/11/21 16:00 99.7 93 19 130/89 (103) 98 02/11/21 15:15 104 02/11/21 15:00 86 22 40 02/11/21 14:20 90 22 100 Mechanical Ventilator 40 91 22 40 02/11/21 12:52 100.0 02/11/21 12:00 100.6 105 25 129/88 (102) 94 Intake and Output 02/11/21 02/12/21 19:00 07:00 Intake Total 1005.000 ml 550 ml Output Total 1400 ml 1200 ml Balance -395.000 ml -650 ml Free Water 100 ml IV Total 305.000 ml Tube Feeding 600 ml 550 ml Output Urine Total 1400 ml 1200 ml # Bowel Movements 1 Laboratory Tests 02/12/21 04:01: White Blood Count 10.3, Red Blood Count 3.89L, Hemoglobin 11.0L, Hematocrit 34.3L, Mean Corpuscular Volume 88, Mean Corpuscular Hemoglobin 28.3, Mean Corpuscular Hemoglobin Concent 32.0, Red Cell Distribution Width 15.9H, Platelet Count 692H, Mean Platelet Volume 7.4, Neutrophils (%) (Auto) 67.6, Lymphocytes (%) (Auto) 20.5, Monocytes (%) (Auto) 8.6, Eosinophils (%) (Auto) 1.3, Basophils (%) (Auto) 1.9, Prothrombin Time 24.2H, Prothromb Time International Ratio 2.3H, Sodium Level 138, Potassium Level 4.4, Chloride Level 100, Carbon Dioxide Level 29, Anion Gap 9, Blood Urea Nitrogen 8, Creatinine 0.7, Estimat Glomerular Filtration Rate > 60, Glucose Level 145H, Calcium Level 10.2H, Vancomycin Level Trough 13.3H Height (Feet): 5 Height (Inches): 5.00 Weight (Pounds): 223 General Appearance: no apparent distress EENT: normal ENT inspection Neck: supple Cardiovascular: normal rate Respiratory/Chest: decreased breath sounds Abdomen: normal bowel sounds, non tender, soft Extremities: non-tender Assessment/Plan Problem List: (1) Schizophrenia, paranoid type ICD Codes: F20.0 - Paranoid schizophrenia SNOMED: 38465541 (2) DMII (diabetes mellitus, type 2) ICD Codes: E11.9 - Type 2 diabetes mellitus without complications SNOMED: 87337273 (3) Obesity ICD Codes: E66.9 - Obesity, unspecified SNOMED: 399471638, 192065860 (4) COPD (chronic obstructive pulmonary disease) ICD Codes: J44.9 - Chronic obstructive pulmonary disease, unspecified SNOMED: 73844309 (5) Essential hypertension ICD Codes: I10 - Essential (primary) hypertension SNOMED: 68357398 Status: unchanged Assessment/Plan: s/p trach s/p GT placement GTF colace and miralax pending placement Carlos Malhotra MD Feb 12, 2021 11:55
[2021-02-12] MEDS: Acetaminophen 650mg/20.3ml GT PRN (12:01)
--- NOTE | 2021-02-12 12:24 | Cardiac Electrophysiology PN ---
Subjective Subjective [id number] Objective Last 24 Hour Vital Signs Date Time Temp Pulse Resp B/P (MAP) Pulse Ox O2 Delivery O2 Flow Rate FiO2 02/12/21 12:00 40 02/12/21 12:00 Mechanical Ventilator 02/12/21 11:49 106 02/12/21 11:48 100.7 113 24 111/75 (87) 96 02/12/21 08:00 98.0 89 24 128/79 (95) 95 02/12/21 07:44 88 02/12/21 07:41 40 02/12/21 07:39 Mechanical Ventilator 02/12/21 06:30 101 28 02/12/21 05:02 94 27 40 02/12/21 04:00 97 02/12/21 04:00 Mechanical Ventilator 02/12/21 04:00 97.9 96 20 118/83 (95) 100 02/12/21 04:00 40 02/12/21 03:05 92 23 40 02/12/21 01:29 101 21 99 Mechanical Ventilator 40 104 22 40 02/12/21 00:00 Mechanical Ventilator 02/12/21 00:00 40 02/12/21 00:00 98.5 90 19 127/72 (90) 98 02/12/21 00:00 98 02/11/21 22:57 94 21 40 02/11/21 21:10 86 24 40 02/11/21 20:00 99.4 94 19 113/81 (92) 99 02/11/21 20:00 87 02/11/21 20:00 40 02/11/21 20:00 Mechanical Ventilator 02/11/21 19:11 98 20 97 Mechanical Ventilator 40 96 20 40 02/11/21 16:00 Mechanical Ventilator 02/11/21 16:00 40 02/11/21 16:00 99.7 93 19 130/89 (103) 98 02/11/21 15:15 104 02/11/21 15:00 86 22 40 02/11/21 14:20 90 22 100 Mechanical Ventilator 40 91 22 40 02/11/21 12:52 100.0 Intake and Output0 02/11/21 02/12/21 19:00 07:00 Intake Total 1005.000 ml 550 ml Output Total 1400 ml 1200 ml Balance -395.000 ml -650 ml Free Water 100 ml IV Total 305.000 ml Tube Feeding 600 ml 550 ml Output Urine Total 1400 ml 1200 ml # Bowel Movements 1 Laboratory Tests Test 02/12/21 04:01 White Blood Count 10.3 K/UL (4.8-10.8) Red Blood Count 3.89 M/UL (4.70-6.10) L Hemoglobin 11.0 G/DL (14.2-18.0) L Hematocrit 34.3 % (42.0-52.0) L Mean Corpuscular Volume 88 FL (80-99) Mean Corpuscular Hemoglobin 28.3 PG (27.0-31.0) Mean Corpuscular Hemoglobin Concent 32.0 G/DL (32.0-36.0) Red Cell Distribution Width 15.9 % (11.6-14.8) H Platelet Count 692 K/UL (150-450) H Mean Platelet Volume 7.4 FL (6.5-10.1) Neutrophils (%) (Auto) 67.6 % (45.0-75.0) Lymphocytes (%) (Auto) 20.5 % (20.0-45.0) Monocytes (%) (Auto) 8.6 % (1.0-10.0) Eosinophils (%) (Auto) 1.3 % (0.0-3.0) Basophils (%) (Auto) 1.9 % (0.0-2.0) Prothrombin Time 24.2 SEC (9.30-11.50) H Prothromb Time International Ratio 2.3 (0.9-1.1) H Sodium Level 138 MMOL/L (136-145) Potassium Level 4.4 MMOL/L (3.5-5.1) Chloride Level 100 MMOL/L (98-107) Carbon Dioxide Level 29 MMOL/L (21-32) Anion Gap 9 mmol/L (5-15) Blood Urea Nitrogen 8 mg/dL (7-18) Creatinine 0.7 MG/DL (0.55-1.30) Estimat Glomerular Filtration Rate > 60 mL/min (>60) Glucose Level 145 MG/DL (74-106) H Calcium Level 10.2 MG/DL (8.5-10.1) H Vancomycin Level Trough 13.3 ug/mL (5.0-12.0) H Microbiology Date/Time Source Procedure Growth Status 02/11/21 18:40 Nasopharynx SARS-CoV-2 Antigen (Rapid)(SUZETTE) - Final Complete 02/11/21 16:40 Nasopharynx Coronavirus COVID-19 PCR (SUZETTE) - Final Complete 02/10/21 16:00 Stool Clostridium difficile Toxin Assay - Final Complete 02/09/21 17:00 Sputum Gram Stain - Final Resulted 02/09/21 17:00 Sputum Culture - Preliminary Gram Negative Bacillus 1 Gram Negative Bacillus 2 Gram Negative Bacillus 3 Resulted Wilmer Lynn MD Feb 12, 2021 12:24
--- NOTE | 2021-02-12 14:42 | Diagnostic Imaging Report ---
Indications: Needs long-term IV access Technique: Procedure performed at bedside. Procedural timeout performed. Ultrasound confirms patent compressible left basilic vein. Total sterile technique, including sterile probe cover and sterile gel, sterile gloves, hand hygiene, hat, mask,, sterile gown, large sterile drape, and preparation with 2% chlorhexidine utilized. Local anesthesia with 1% lidocaine. Under real-time ultrasound guidance, puncture silhouette vein using 21-gauge needle, passage 0.018 guidewire, exchange for 4 Icelandic peel-away sheath. 4 Icelandic Bard dual-lumen power PICC cut to 48 cm. It was inserted through the peel-away sheath. Peel-away sheath and guidewire removed. Catheter fixed to the skin. Both catheter ports aspirated and flushed. Patient tolerated procedure well, without immediate complication. Followup chest x-ray obtained, documents catheter tip position at the high right atrium Impression: Successful bedside placement of left arm PICC under sonographic guidance, as described above.
[2021-02-12 16:00] VITALS: BP 113/75
[2021-02-12] MEDS ORDERED: Warfarin Sodium 4mg ORAL SCH (17:00)
--- NOTE | 2021-02-12 17:44 | Internal Med Progress Note ---
Subjective Date of Service: Feb 12, 2021 Physician Name Vickey Brown Attending Physician Geovanny Bradley MD Current Medications Medications (Trade) Dose Ordered Sig/Johnny Route PRN Reason Start Time Stop Time Status Last Admin Dose Admin Acetaminophen (Tylenol) 650 mg Q6H PRN GT Temp >100.5 02/09/21 08:15 03/11/21 08:14 02/12/21 12:01 Acetylcysteine (Mucomyst) 200 mg Q6HRT HHN 02/03/21 13:00 05/04/21 12:59 02/12/21 14:35 Albuterol/ Ipratropium (Albuterol/ Ipratropium) 3 ml Q6HRT HHN 02/08/21 13:45 02/13/21 13:44 02/12/21 14:35 Cefepime HCl 1 gm/ Dextrose 55 ml @ 110 mls/hr EVERY 8 HOURS IVPB 02/09/21 09:30 02/16/21 09:29 02/12/21 13:55 Dextrose (Dextrose 50%) 25 ml Q30M PRN IV Hypoglycemia 01/06/21 23:45 04/06/21 23:44 Dextrose (Dextrose 50%) 50 ml Q30M PRN IV Hypoglycemia 01/06/21 23:45 04/06/21 23:44 Hydromorphone HCl (Dilaudid) 0.5 mg Q2H PRN IVP Severe Pain (Pain Scale 7-10) 02/06/21 13:42 02/13/21 13:41 02/10/21 04:47 Insulin Aspart (NovoLOG) EVERY 6 HOURS SUBQ 01/09/21 12:00 04/04/21 16:29 02/11/21 12:22 Lansoprazole (Prevacid) 30 mg DAILY GT 01/24/21 09:00 02/15/21 08:59 02/12/21 09:08 Lorazepam (Ativan 2mg/ml 1ml) 1 mg Q2H PRN IV For Anxiety 02/06/21 08:15 02/13/21 08:14 02/06/21 11:58 Metoclopramide HCl (Reglan) 5 mg Q6H PRN IVP Nausea & Vomiting 02/06/21 00:15 03/08/21 00:14 Midodrine (Pro-Amatine) 10 mg Q8HR ORAL 2/21/21 14:00 04/20/21 13:59 02/12/21 13:55 Ondansetron HCl (Zofran) 4 mg Q6H PRN IVP Nausea & Vomiting 02/06/21 00:15 03/08/21 00:14 Potassium Chloride (K-Dur) 20 meq TWICE A DAY NG 01/20/21 13:00 04/20/21 12:59 02/12/21 17:19 Quetiapine Fumarate (SEROqueL) 100 mg Q12HR ORAL 01/20/21 15:00 03/06/21 14:59 02/12/21 09:08 Valproic Acid (Depakene) 500 mg Q12HR GT 01/22/21 21:00 02/21/21 20:59 02/12/21 09:08 Vancomycin HCl 300 ml @ 150 mls/hr Q8H IVPB 02/12/21 06:00 02/17/21 05:59 02/12/21 14:28 Vancomycin HCl (Vanco pharmacy to dose) 1 ea DAILY PRN MISC Per rx protocol 01/25/21 08:15 02/24/21 08:14 Warfarin Sodium (Coumadin per pharmacy) 1 ea DAILY PRN MISC . 02/07/21 17:00 03/09/21 16:59 Allergies: Coded Allergies: No Known Allergies (Unverified , 01/02/21) ROS Limited/Unobtainable: Yes Subjective 60 YO M admitted with shortness of breath. Now respiratory failure. Cover for Int Rohit-DR Bradley. Intubated and sedated. S/P Endoscopy/PEG placement 02/06/21. Uxxp=805.7 Objective Last Vital Signs Date Time Temp Pulse Resp B/P (MAP) Pulse Ox O2 Delivery O2 Flow Rate FiO2 02/12/21 16:00 40 02/12/21 16:00 99.4 98 22 113/75 (88) 95 02/12/21 16:00 Mechanical Ventilator 02/06/21 05:55 65.0 Laboratory Tests Test 02/12/21 04:01 White Blood Count 10.3 K/UL (4.8-10.8) Red Blood Count 3.89 M/UL (4.70-6.10) L Hemoglobin 11.0 G/DL (14.2-18.0) L Hematocrit 34.3 % (42.0-52.0) L Mean Corpuscular Volume 88 FL (80-99) Mean Corpuscular Hemoglobin 28.3 PG (27.0-31.0) Mean Corpuscular Hemoglobin Concent 32.0 G/DL (32.0-36.0) Red Cell Distribution Width 15.9 % (11.6-14.8) H Platelet Count 692 K/UL (150-450) H Mean Platelet Volume 7.4 FL (6.5-10.1) Neutrophils (%) (Auto) 67.6 % (45.0-75.0) Lymphocytes (%) (Auto) 20.5 % (20.0-45.0) Monocytes (%) (Auto) 8.6 % (1.0-10.0) Eosinophils (%) (Auto) 1.3 % (0.0-3.0) Basophils (%) (Auto) 1.9 % (0.0-2.0) Prothrombin Time 24.2 SEC (9.30-11.50) H Prothromb Time International Ratio 2.3 (0.9-1.1) H Sodium Level 138 MMOL/L (136-145) Potassium Level 4.4 MMOL/L (3.5-5.1) Chloride Level 100 MMOL/L (98-107) Carbon Dioxide Level 29 MMOL/L (21-32) Anion Gap 9 mmol/L (5-15) Blood Urea Nitrogen 8 mg/dL (7-18) Creatinine 0.7 MG/DL (0.55-1.30) Estimat Glomerular Filtration Rate > 60 mL/min (>60) Glucose Level 145 MG/DL (74-106) H Calcium Level 10.2 MG/DL (8.5-10.1) H Vancomycin Level Trough 13.3 ug/mL (5.0-12.0) H Microbiology Date/Time Source Procedure Growth Status 02/11/21 18:40 Nasopharynx SARS-CoV-2 Antigen (Rapid)(SUZETTE) - Final Complete 02/11/21 16:40 Nasopharynx Coronavirus COVID-19 PCR (SUZETTE) - Final Complete 02/10/21 16:00 Stool Clostridium difficile Toxin Assay - Final Complete Intake and Output 02/11/21 02/12/21 19:00 07:00 Intake Total 1005.000 ml 600 ml Output Total 1400 ml 1200 ml Balance -395.000 ml -600 ml Free Water 100 ml IV Total 305.000 ml Tube Feeding 600 ml 600 ml Output Urine Total 1400 ml 1200 ml # Bowel Movements 1 Objective Objective General: awake, responsive , confused. HEENT: NCAT, sclera anicteric, PERRL, EOMI. Neck: Supple, no significant jugular venous distention, Lungs: mech vent; decreased air at the bases, occasional crackles, no Wheeze. Heart: Regular rate and rhythm, normal S1/S2, no murmurs Abdomen: soft, nontender, nondistended. Normoactive bowel sound, obesity. / Rectal: Refused and deferred. Extremities: Left LE: No Cyanosis , clubbing or edema. Right LE AKA. Neuro: A&O x 2, Able to move all extremities Skin: warm, no rashes or lesions. Assessment/Plan Assessment/Plan Assessment/Plan Assessment/Plan (1) Pneumonia due to COVID-19 virus ICD Codes: U07.1 - COVID-19; J12.82 - Pneumonia due to coronavirus disease 2019 SNOMED: 623571421040116203 (2) Acute hypercapnic respiratory failure ICD Codes: J96.02 - Acute respiratory failure with hypercapnia SNOMED: 833722402 (3) Respiratory failure with hypoxia ICD Codes: J96.91 - Respiratory failure, unspecified with hypoxia SNOMED: 22902213894425135 Qualifiers: Qualified Codes: J96.01 - Acute respiratory failure with hypoxia (4) COPD (chronic obstructive pulmonary disease) ICD Codes: J44.9 - Chronic obstructive pulmonary disease, unspecified SNOMED: 20396353 (5) History of deep venous thrombosis or pulmonary embolus SNOMED: 868994322 (6) Obesity ICD Codes: E66.9 - Obesity, unspecified SNOMED: 223479279, 601063436 (7) Essential hypertension ICD Codes: I10 - Essential (primary) hypertension SNOMED: 66003019 (8) Diabetes mellitus type 2 in obese ICD Codes: E11.69 - Type 2 diabetes mellitus with other specified complication; E66.9 - Obesity, unspecified SNOMED: 92905675 (9) History of hydrocephalus ICD Codes: Z86.69 - Personal history of other diseases of the nervous system and sense organs SNOMED: 788780395 (10) Schizophrenia ICD Codes: F20.9 - Schizophrenia, unspecified SNOMED: 68332829 (11) Bipolar 1 disorder ICD Codes: F31.9 - Bipolar disorder, unspecified SNOMED: 111919114 (12) Anticoagulant long-term use ICD Codes: 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 Sepsis=gram pos cocci 14. thrush Assessment/Plan: Optimize pulmonary hygiene/mobilize as tolerated Non Rebreather mask>BIPAP>intubated S/P Remdesivir IV S/P Solu-Medrol 40 mg IV twice a day. Abx = vanco end 02/15/21 and cefepime Day #3 F/U Cx's Monitor volumes and renal function DVT Px: Coumadin DC IV fluid Start diet Monitor blood glucose level closely. On levophed, fentanyl and propofol drips Pulmonary=Dr Luis ID=Dr Gomez Psych consult=Dr Gallegos; continue seroquel continue nystatin await tracheostomy Optimize pulmonary hygiene/mobilize as tolerated Completed Remdesivir IV Abx: Vanco IV and Zosyn IV F/U Cx's Monitor volumes and renal function DVT Px: Coumadin Monitor blood glucose level closely. FULL Code Tolerated Tube feeding @ 60 cc/hr. S/P endoscopy/PEG plamement 02/06/21 S/P Trach 02/06/21 Discharge to [facility] sub acute today 02/12/21 Vickey Brown MD Feb 12, 2021 17:44
--- NOTE | 2021-02-12 17:44 | Consultation ---
DATE OF CONSULTATION: 02/12/2021 CARDIOLOGY CONSULTATION CONSULTING PHYSICIAN: Wilmer Lynn MD REFERRING PHYSICIAN: Geovanny Bradley MD REASON FOR CONSULTATION: Tachycardia. HISTORY OF PRESENT ILLNESS: The patient is a 60-year-old gentleman who was tested positive for COVID at [facility] on January 01, 2021. The patient was diagnosed with COVID pneumonia and was intubated on January 06, at [facility] [place] [facility]. The patient also had Staph epidermidis bacteremia, was also in septic shock. The patient subsequently had two negative COVID and was transferred out of intensive care unit. The patient noted to be tachycardic, heart rate in the 160s and Cardiology consultation was obtained for further evaluation. The patient is status post tracheostomy on February 06, 2021, and status post PEG placement on February 06, 2021. REVIEW OF SYSTEMS: Cannot be obtained. PAST MEDICAL HISTORY: As mentioned above. FAMILY HISTORY: Noncontributory. PHYSICAL EXAMINATION: VITAL SIGNS: Show blood pressure of 111/75, pulse was 120, temperature was 100.7. HEAD AND NECK: Shows no JVD. Status post tracheostomy. LUNGS: Coarse rhonchi. CARDIOVASCULAR: Tachycardic. S1 and S2 with no gallop. ABDOMEN: Soft. Status post PEG. EXTREMITIES: A 1+ pitting edema. LABORATORY AND DIAGNOSTIC DATA: Labs show white count 10.7, hemoglobin 11, hematocrit 34.3, and platelet count of 692. Sodium 138, potassium 4.4, BUN of 8, creatinine 0.7, and glucose of 145. His 12-lead EKG from today showed normal sinus rhythm, normal electrocardiogram even though telemetry shows episodes of tachycardia. ASSESSMENT AND PLAN: 1. Tachycardia due to sinus tachycardia. This is due to the patient's sepsis. no underlying cause. The patient already on IV antibiotics with vancomycin and cefepime. Further evaluation by ID. His echocardiogram on February 02, 2021, also showed ejection fraction of 55% and no vegetations. 2. Recurrent gram-positive bacteremia infection, on IV antibiotics per ID. 3. Ventilator-dependent respiratory failure, status post tracheostomy. 4. Dysphagia, status post PEG placement on February 06, 2021. 5. History of bipolar disorder and schizophrenia. 6. Chronic anticoagulation use, on Coumadin. 7. Diabetes. 8. History of DVT. 9. Status post COVID-19 pneumonia, now his COVID test negative as of yesterday. Thank you very much for allowing me to participate in the care of this patient. Please do not hesitate to contact me if you have any questions regarding my evaluation. Wilmer Lynn M.D. DR: Jory JOB#: [id number] CC:
[2021-02-12] MEDS ORDERED: K-TAB ER20 MEQ NG (17:53)
[2021-02-12] MEDS ORDERED: NOVOLOG100 UNITS1 SUBQ (17:53)
[2021-02-12] MEDS ORDERED: SEROQUEL100 MG ORAL (17:53)
[2021-02-12] MEDS ORDERED: LANSOPRAZOLE30 MG GT (17:53)
[2021-02-12] MEDS ORDERED: Warfarin per pharmacy MISC (17:53)
[2021-02-12] MEDS ORDERED: METOCLOPRAM5 MG/1 M1 IVP (17:53)
[2021-02-12] MEDS ORDERED: DUONEB 0.5-3(2.53 ML HHN (17:53)
[2021-02-12] MEDS ORDERED: VANCOMYCIN1.5 GM/15 IV (17:53)
[2021-02-12] MEDS ORDERED: MUCOMYST200 MG/ML HHN (17:53)
[2021-02-12] MEDS ORDERED: Acetaminophen GT (17:53)
[2021-02-12] MEDS ORDERED: CEFEPIME 11 GM/50 ML IV (17:53)
[2021-02-12] MEDS ORDERED: DEPAKENE L250 MG/5 M GT (17:53)
[2021-02-12] MEDS ORDERED: Vanco pharmacy to dose MISC (17:53)
[2021-02-12 20:00] VITALS: BP 116/82
--- NOTE | 2021-02-13 13:16 | Pulmonology Progress Note ---
Subjective ROS Limited/Unobtainable: Yes Allergies: Coded Allergies: No Known Allergies (Unverified , 01/02/21) Objective Last 24 Hour Vital Signs Date Time Temp Pulse Resp B/P (MAP) Pulse Ox O2 Delivery O2 Flow Rate FiO2 02/12/21 20:00 98.9 105 20 116/82 (93) 93 02/12/21 20:00 40 02/12/21 20:00 97 02/12/21 20:00 Mechanical Ventilator 02/12/21 19:30 98 22 94 Mechanical Ventilator 40 105 22 40 02/12/21 16:00 40 02/12/21 16:00 99.4 98 22 113/75 (88) 95 02/12/21 16:00 Mechanical Ventilator 02/12/21 15:53 101 02/12/21 14:35 95 21 98 Mechanical Ventilator 40 98 22 40 Intake and Output 02/12/21 02/13/21 19:00 07:00 Intake Total 705 ml 50 ml Output Total 1000 ml Balance -295 ml 50 ml Free Water 50 ml IV Total 355 ml Tube Feeding 300 ml 50 ml Output Urine Total 1000 ml Microbiology Date/Time Source Procedure Growth Status 02/11/21 18:40 Nasopharynx SARS-CoV-2 Antigen (Rapid)(SUZETTE) - Final Complete 02/11/21 16:40 Nasopharynx Coronavirus COVID-19 PCR (SUZETTE) - Final Complete 02/10/21 16:00 Stool Clostridium difficile Toxin Assay - Final Complete Assessment/Plan Assessment/Plan Pulmonary Progress Note Seen on 02/12/2021 HPI Patient is a 60 man with prior h/o COPD, CPS/bipolar DO, prior DVT/PE on AC, NHR, DM2, HTN and hydrocephalus,admitted with severe Covid19 Pneumonia. ID following, on AB, s/p REM + SM previously, CXR with bilateral infiltrates/trach Fevers settled,has incr WCC - AB/ID Stable on Ventilator PEEP at 5,maintaining O2 sats, FIO2 - 40%, s/p Tracheostomy, sp G tube, tolerating SIMV14 PS16 trials in SDU HCAP,previous fever, AB broadened by ID,cultures pending ABG noted AC18 and SIMV 16 Allergies: Coded Allergies: No Known Allergies (Unverified , 01/02/21) PMH: COPD, CPS/bipolar DO, prior DVT/PE on AC, DM2, HTN and hydrocephalus Physical Exam Deferred Covid19 Vital Signs noted Laboratory Tests noted Imaging noted Height (Feet): 5 Height (Inches): 5.00 Weight (Pounds): 233 Medications Medications noted Assessment/Plan Problem List: (1) Pneumonia due to COVID-19 virus ICD Codes: U07.1 - COVID-19; J12.82 - Pneumonia due to coronavirus disease 2018 SNOMED: 173322795635467502 (2) Acute hypercapnic respiratory failure ICD Codes: J96.02 - Acute respiratory failure with hypercapnia SNOMED: 860792027 (3) Respiratory failure with hypoxia ICD Codes: J96.91 - Respiratory failure, unspecified with hypoxia SNOMED: 65092648458101874 Qualifiers: Qualified Codes: J96.01 - Acute respiratory failure with hypoxia (4) COPD (chronic obstructive pulmonary disease) ICD Codes: J44.9 - Chronic obstructive pulmonary disease, unspecified SNOMED: 64540192 (5) History of deep venous thrombosis or pulmonary embolus SNOMED: 622385789 (6) Obesity ICD Codes: E66.9 - Obesity, unspecified SNOMED: 468861869, 544820311 (7) Essential hypertension ICD Codes: I10 - Essential (primary) hypertension SNOMED: 24607610 (8) Diabetes mellitus type 2 in obese ICD Codes: E11.69 - Type 2 diabetes mellitus with other specified complication; E66.9 - Obesity, unspecified SNOMED: 34001842 (9) History of hydrocephalus ICD Codes: Z86.69 - Personal history of other diseases of the nervous system and sense organs SNOMED: 059067526 (10) Schizophrenia ICD Codes: F20.9 - Schizophrenia, unspecified SNOMED: 09541849 (11) Bipolar 1 disorder ICD Codes: F31.9 - Bipolar disorder, unspecified SNOMED: 923884698 (12) Anticoagulant long-term use ICD Codes: Z79.01 - assisted (current) use of anticoagulants SNOMED: 486390299 Assessment/Plan: ACVC - adjust PRN ABG PRN Adjust FiO2 to keep SaO2 > 92% Wean as tolerated - SIMV Sedation PRN HFA's Weaned off SM Abx per ID-broadened F/U Cx's DVT Px: Coumadin sandra TF FC GT Trach SDU LTAC placement Seen on 02/12/2021 Anuel Luis MD Feb 13, 2021 13:16
--- NOTE | 2021-02-13 13:38 | Discharge Summary ---
Discharge Summary Discharge Summary _ Date of admission: 01/02/2021 Date of discharge: Discharged by Dr. Bradley History of Present Illness and Brief Hospital Course Mr. Mooney is a 60-year-old male with past medical history of diabetes, COPD, and hypertension, who was sent to ED from SNF for evaluation of shortness of breath. Patient tested positive for COVID-19 the day prior to presentation. Patient was hypoxic on arrival and was placed on nonrebreather with subsequent improvement in his oxygen saturation. However, patient's breathing appeared to be labored and he was placed on a BiPAP. Patient's chest x-ray showed multi lobar infiltrates. Patient was started on antibiotics, steroid, and Lovenox in ER and was admitted to the hospital for further management. Patient had a history of DVT and was on Coumadin. Coumadin was continued throughout his hospitalization. Patient received remdesivir, steroid, and broad-spectrum antibiotics. Given worsening hypoxia, patient was intubated and was transferred to ICU. Despite multiple attempts to wean patient off of the ventilator, patient failed weaning trials. Patient underwent tracheostomy as patient was unable to be extubated. Patient received PEG for nutrition. Patient was periodically surveillance with blood cultures and urine cultures. Antibiotic regimen was optimized otoniel munoz. Patient was medically stable for discharge. Patient was discharged to [facility] on 02/12/2021 in stable condition. Consultants: Cardiology Dr. Lynn Surgery Dr. Strong Nephrology Dr. Bunch Pulmonology Dr. Barry Infectious disease Dr. Gomez Discharge Condition Stable, trach Discharge Activity Bedrest Discharge Diet Tube feeding Final diagnoses Sinus tachycardia Recurrent gram-positive bacteremia Ventilator dependent respiratory failure, status post tracheostomy Dysphagia, status post PEG placement History of bipolar 1 disorder History of schizophrenia Chronic anticoagulation use, on Coumadin Diabetes mellitus History of DVT Septic shock COVID-19 pneumonia History of COPD Obesity Essential hypertension History of hydrocephalus I have been assigned to dictate discharge summary for this account. I was not involved in the patient's management Yonas Mazariegos Feb 13, 2021 13:37
== END 2021-02-12 22:30 | DRG 4 ==
LOC: EDBD 00:52 → EMR 01:09 → EDBEDREQ 01:54 → 2W 02:05 → EDBEDREQ 02:21 → EDBEDREQSVC 02:31 → EDBEDREQ 02:45 → ICU 01-06 21:35 → 2E 02-08 10:42
PROC: XW033E5 Introduction of Remdesivir Anti-infective into Peripheral Vein, Percutaneous Approach, New Technology Group 5 (ICD-10-PCS; principal; 2021-01-02)
PROC: 0BH17EZ Insertion of Endotracheal Airway into Trachea, Via Natural or Artificial Opening (ICD-10-PCS; 2021-01-06)
PROC: 5A1955Z Respiratory Ventilation, Greater than 96 Consecutive Hours (ICD-10-PCS; 2021-01-06)
PROC: 06HM33Z Insertion of Infusion Device into Right Femoral Vein, Percutaneous Approach (ICD-10-PCS; 2021-01-07)
PROC: B548ZZA Ultrasonography of Superior Vena Cava, Guidance (ICD-10-PCS; 2021-01-30)
PROC: 02HV33Z Insertion of Infusion Device into Superior Vena Cava, Percutaneous Approach (ICD-10-PCS; 2021-01-30)
PROC: 0B110F4 Bypass Trachea to Cutaneous with Tracheostomy Device, Open Approach (ICD-10-PCS; 2021-02-05)
PROC: 0DH63UZ Insertion of Feeding Device into Stomach, Percutaneous Approach (ICD-10-PCS; 2021-02-06)
PROC: 02HV33Z Insertion of Infusion Device into Superior Vena Cava, Percutaneous Approach (ICD-10-PCS; 2021-02-11)
PROC: B548ZZA Ultrasonography of Superior Vena Cava, Guidance (ICD-10-PCS; 2021-02-11)
DX: A41.9 Sepsis, unspecified organism (principal); U07.1 COVID-19; J12.82 Pneumonia due to coronavirus disease 2019; J96.01 Acute respiratory failure with hypoxia; R65.21 Severe sepsis with septic shock; J96.02 Acute respiratory failure with hypercapnia; J44.0 Chronic obstructive pulmonary disease with (acute) lower respiratory infection; F20.0 Paranoid schizophrenia; Z99.11 Dependence on respirator [ventilator] status; E11.9 Type 2 diabetes mellitus without complications; I10 Essential (primary) hypertension; E11.65 Type 2 diabetes mellitus with hyperglycemia; I48.91 Unspecified atrial fibrillation; G40.909 Epilepsy, unspecified, not intractable, without status epilepticus; E11.22 Type 2 diabetes mellitus with diabetic chronic kidney disease; I12.9 Hypertensive chronic kidney disease with stage 1 through stage 4 chronic kidney disease, or unspecified chronic kidney disease; N18.9 Chronic kidney disease, unspecified; F31.9 Bipolar disorder, unspecified; E87.5 Hyperkalemia; E66.9 Obesity, unspecified; R00.0 Tachycardia, unspecified; R13.10 Dysphagia, unspecified; R23.8 Other skin changes
CPT/HCPCS: 36415; 36569; 71045; 74018; 76937; 80048; 80053; 80061; 80076; 80164; 80202; 81003; 82248; 82306; 82533; 82550; 82553; 82607; 82728; 82746; 82803; 82962; 82977; 83520; 83605; 83615; 83690; 83735; 83880; 84100; 84443; 84478; 84484; 84550; 85007; 85025; 85379; 85610; 85730; 86140; 86703; 87040; 87070; 87081; 87086; 87181; 87205; 87324; 93005; 93306; 94002; 94003; 94150; 94640; 94660; 96361; 96365; 96367; 96372; 99291; J1815; J2405; J3490; J7030; J7620; J8499